=== PATIENT | female | born 1945 | race Caucasian/White ===

== ENCOUNTER → 2018-09-26 10:27 | Outpatient (CLI) | payer MEDICARE, SELFPAY ==
--- NOTE | 2018-09-26 10:30 | BI_ITS ---
MAMMOGRAPHY - BILATERAL SCREENING REASON FOR EXAM: Female, 72 years old. Routine annual screening examination. PERTINENT HISTORY: Grandmother with breast cancer. Remote bilateral breast reduction surgery. TECHNIQUE: Digital bilateral breast nelson (3D mammographic acquisition) in the CC and MLO projections. 2-D mediolateral oblique (MLO) and craniocaudad (CC) views of both breasts were obtained. CAD: Full Field Digital Mammography with Computer Added Detection was performed. COMPARISON: Comparison is made with prior study dated September 07, 2017 and September 06, 2016. FINDINGS: Breast Composition: The breasts are almost entirely fatty. There are no dominant masses or suspicious calcifications. Stable benign-appearing bilateral axillary lymph nodes. Stable 6.6 mm calcified nodule in the retroareolar region of the left breast. No other significant abnormalities are identified. There has been no significant change since the prior study. BI/SCREENING MAMM (CAD), BILAT IMPRESSION: Stable bilateral screening mammogram. Yearly follow-up mammogram recommended. (A) ASSESSMENT CATEGORY: BIRADS Category 2: Benign. A letter regarding these results will be sent to the patient by the facility within 30 days. Approximately 10% of breast cancers are not detected by mammography. A normal mammogram should not delay biopsy of a clinically suspicious abnormality. [id number] Electronically Signed: Wayne Rabago MD at 11:40 EST Tel [phone], Service support ,
--- OUTSIDE RECORDS SUMMARY | 2018-12-01 05:11 | XMS RPT_ITS | Continuity of Care Document ---
:1945 Author Organization [facility] Address [address] [facility] [address] [place] [address] Phone Care Team Providers Name Role Phone Whit LYNDALakisha E Unavailable Dr. Demetri Tanner Unavailable Krista Castillo LPN Unavailable Unavailable Maria Luisa Angel Unavailable Unavailable Preston Vance Unavailable Unavailable Aaliyah Goel Unavailable Unavailable Unavailable Unavailable Problems Name Dates Details Abdominal pain (R10.9, 789.00) Comments: epigastric, colonoscopy December 07 with Ryland normal, he did not do endoscopy all labs normal and hypylori normal added sulcralfate but no better, can do CTHad cholecystectomy Status: Active Abdominal pain, acute, generalized (R10.84, 789.07) Comments: ct scan okay. will compare old kidney cyst will call radiology. still some left upper quad discomfort. belch and flatuence help. ? ulcer. on prilosec clean stool out. some better. will take PPI for 4 w eeks. worry about ovarian. will check US. consider Hpylori if return alot. will get colonscopy Status: Active Abnormal mammogram (R92.8, 793.80) Status: Active Acute pharyngitis (J02.9, 462) Status: Active Allergic Rhinitis (J30.9, 477.9) Comments: hard to sing alot drainage. told use claritin no D Status: Active Annual Medicare Phyiscal WITHOUT abnormal findings (Renamed from Encounter for general adult medical examination without abnormal findings) (Z00.00, V70.9) Status: Active Anxiety (F41.9, 300.00) Status: Active Atrial fibrillation (I48.91, 427.31) Comments: new onset -PAT- post op related. , sees Jessica once a year Stress test 10-03-16 Cath 10-06-162016 Status: Active BMI 34.0-34.9,adult (Z68.34, V85.34) Comments: will refer to Why weight Status: Active BMI 35.0-35.9,adult (Z68.35, V85.35) Status: Active Cough (R05, 786.2) Status: Active Cyst, kidney, acquired (N28.1, 593.2) Comments: recheck Status: Active Encounter for Medicare annual wellness exam (Z00.00, V70.0) Comments: reveiwed with patient recent tests all questions scope 2009, mother after pneumonvax. Status: Active Encounter for screening for malignant neoplasm of colon (Renamed from Special screening for malignant neoplasms, colon) (Z12.11, V76.51) Status: Active Encounter for screening mammogram for breast cancer (Renamed from Encounter for screening mammogram for malignant neoplasm of breast) (Z12.31, V76.12) Status: Active Flank pain (R10.9, 789.09) Status: Active Generalized anxiety disorder (F41.1, 300.02) Comments: doing good Status: Active GERD (gastroesophageal reflux disease) (K21.9, 530.81) Comments: had EGD, had Hpylori treatment. doing better with that treatment. had lost 20 pounds with this and now gain back. talk about this. Status: Active Hair loss (L65.9, 704.00) Status: Active Hypercalcemia (E83.52, 275.42) Comments: stop calcium qyiaye27.3 with nausea Status: Active Hyperglyceridemia (E78.1, 272.1) Comments: would like to get on livalo but insurance not cover was on Zocor 03-05-2010 and provachol 03-15-12 with cramping. Status: Active Hypertension (I10, 401.9) Comments: controlled on toprol Status: Active Hypothyroidism (E03.9, 244.9) Comments: good 10-13 Status: Active Irritable bowel syndrome (K58.9, 564.1) Status: Active Irritable bowel syndrome with constipation (K58.1, 564.1) Status: Active Irritated nevus of face (D22.30, 216.3) Status: Active Mixed Hyperlipidemia (E78.2, 272.2) Comments: reveiwed with patient recent tests ldl good, excellent profile on Livalo, continue unable to take statins was approved Status: Active Need for prophylactic vaccination and inoculation against influenza (Z23, V04.81) Status: Active Need for prophylactic vaccination and inoculation against influenza (Renamed from Need for immunization against influenza) (Z23, V04.81) Status: Active Nonsmoker (Z78.9, V49.89) Status: Active Non-smoker (Z78.9, V49.89) Status: Active Obesity, unspecified (E66.9, 278.00) Comments: need to lose weight Status: Active Osteopenia (M85.80, 733.90) Comments: 12-10 very early osteopenia Status: Active Other 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 of blood chemistry (R79.89, 790.6) Status: Active Other specified disorders of liver (K76.89, 573.8) Comments: pt has been aware of them - has had for years Status: Active Pain in unspecified hip (M25.559, 719.45) Comments: hip OA bad. may need to have replaced. seen knpaulineic. is going to go back because to him. 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 mojica took out and see someone at [facility] and stable Status: Active Tremor (R25.1, 781.0) Status: Active Unspecified Diagnosis Status: Active Unspecified Diagnosis Status: Active Unspecified Diagnosis Status: Active Upper respiratory infection, viral (J06.9, 465.9) Status: Active Urinary frequency (R35.0, 788.41) Comments: will reevaluate in future Status: Active Vaginitis (N76.0, 616.10) Comments: yeast vs other Status: Active WWV V73.21 (Renamed from CO-Value) Comments: mammo 06-21, BD 12-10 scope 2009, mother after pneumonvax. Status: Active Medications Name Dates Details ASPIRIN, 325MG (Oral Tablet) 1 Tablet qd for 0 days Quantity: 30 {Tablet} Refills: 0 Ordered:24-Jun-2013 Shelia Oleary MD Start : 24-Jun-2013 Active CALCIUM 600, 600MG (Oral Tablet) 1 Tablet qd for 0 days Quantity: 30 {Tablet} Refills: 0 Ordered:24-Jun-2013 Shelia Oleary MD Start : 24-Jun-2013 Active Cranberry 125 MG Oral Tablet daily (125 MG) Active Livalo 1 MG Oral Tablet 1 qd (1 MG) Start : 23-Jan-2018 Active Comments:unable to take statin zetia, lipitor Livalo 1 MG Oral Tablet 1 Tablet Tablet qd for 90 days Quantity: 90 {Tablet} Refills: 3 Ordered:23-Jan-2018 Whit HOWELL, Lakisha Riley CNP, Priscilla Start : 23-Jan-2018 Active Livalo 1 MG Oral Tablet 1 Tablet Tablet qd for 90 days Quantity: 90 {Tablet} Refills: 3 Ordered:23-Jan-2018 Whit HOWELL, Lakisha Riley CNP, Priscilla Start : 23-Jan-2018 Active Comments:unable to take statin zetia, lipitor Multivitamin Adults 50+ Oral Tablet Active Toprol XL 50 MG Oral Tablet Extended Release 24 Hour 1 Tablet ER 24HR qd for 0 days Quantity: 90 {Tablet} Refills: 3 Ordered:17-Jun-2018 Lakisha Sherman CNP, CNP, Priscilla Start : 17-Jun-2018 Active Toprol XL 50 MG Oral Tablet Extended Release 24 Hour 1 Tablet ER 24HR qd for 0 days Quantity: 90 {Tablet} Refills: 3 Ordered:17-Jun-2018 Whit HOWELL, Lakisha Riley CNP, Lakisha Cartagena Start : 17-Jun-2018 Active ACTONEL, 150MG (Oral Tablet) 1 Tablet q monthly for 90 days Quantity: 3 {Tablet} Refills: 3 Ordered:15-Oct-2013 Shelia Oleary MD Start : 15-Oct-2013 End : 15-Oct-2013 Inactive ALIGN (Oral Capsule) 1 Capsule daily for 30 days Refills: 0 Ordered:08-Nov-2010 Whit HOWELL, Lakisha Riley CNP, Lakisha Cartagena Start : 08-Nov-2010 End : 08-Dec-2010 Inactive ATIVAN, 0.5MG (Oral Tablet) 1 Tablet qd for 0 days Quantity: 30 {Tablet} Refills: 0 Ordered:18-Mar-2013 Bharti Villegas LPN Start : 15-Mar-2012 End : 18-Mar-2013 Inactive Comments:thirty Atorvastatin Calcium 20 MG Oral Tablet 1 (one) Tablet daily for 0 days Quantity: 90 {Tablet} Refills: 3 Ordered:09-Jan-2018 Elizabet Johnston LPN Start : 18-Dec-2017 End : 09-Jan-2018 Inactive CARDIZEM LA, 120MG (Oral Tablet Extended Release 24 Hour) 1 Tablet ER 24HR qhs for 0 days Quantity: 30 {Tablet_ER_24HR} Refills: 2 Ordered:18-Mar-2013 Bharti Villegas LPN Start : 07-May-2012 End : 18-Mar-2013 Inactive CELEBREX, 200MG (Oral Capsule) 1 (one) Capsule qd/prn for 0 days Quantity: 90 {Capsule} Refills: 3 Ordered:15-Aug-2011 Elizabet Johnston LPN Start : 15-Aug-2011 End : 15-Aug-2011 Inactive CLARITHROMYCIN, 500MG (Oral Tablet) 1 Tablet bid for 14 days Quantity: 28 {Tablet} Refills: 0 Ordered:27-Oct-2010 Whit HOWELL, Lakisha Riley CNP, Lakisha Cartagena Start : 27-Oct-2010 End : 10-Nov-2010 Inactive COLESTID, 5GM (Oral Granules) 1 Granules bid for 0 days Quantity: 1 {Packet(s)} Refills: 3 Ordered:19-Aug-2013 Elizabet Johnston LPN Start : 15-Jul-2013 End : 19-Aug-2013 Inactive CoQ-10 100 MG Oral Capsule Extended Release 1 (one) Capsule ER Capsule ER daily for 0 days Quantity: 30 {Capsule} Refills: 0 Ordered:25-Jul-2017 Krista Castillo LPN Start : 13-Jun-2016 End : 25-Jul-2017 Inactive Fenofibrate 120 MG Oral Tablet 1 (one) Tablet daily with a meal for 0 days Quantity: 30 {Tablet} Refills: 6 Ordered:10-Oct-2016 Shelia Oleary MD Start : 10-Oct-2016 End : 10-Oct-2016 Inactive Comments: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 not 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 her on that, needs Livalo FOSAMAX, 70MG (Oral Tablet) 1 Tablet q week for 0 days Quantity: 4 {Tablet} Refills: 6 Ordered:30-Aug-2013 Shelia Oleary MD Start : 30-Aug-2013 End : 30-Aug-2013 Inactive Comments:headache, makes feel werid all over IRON SUPPLEMENT, 325 (65 Fe)MG (Oral Tablet) 1 Tablet bid for 30 days Refills: 0 Ordered:24-Jun-2013 MOIRA Crowell Start : 18-Mar-2013 End : 24-Jun-2013 Inactive LIDODERM, 5% (External Patch) 1 Patch 12 hours on and hours off for 0 days Quantity: 30 {Patch} Refills: 0 Ordered:18-Mar-2013 Bharti Villegas LPN Start : 26-Oct-2012 End : 18-Mar-2013 Inactive LINZESS, 145 MCG (LINACLOTIDE) CAPSULES, 145 MCGMCG (Oral Capsule) (Free Text) 1 (one) Capsule QOD for 30 days Refills: 0 Ordered:17-May-2016 Lakisha Sherman CNP, CNP, Mary E Start : 11-Dec-2015 End : 10-Jan-2016 Inactive MEDROL (SADI), 4MG (Oral Tablet) 1 Tablet uad for 0 days Refills: 0 Ordered:18-Mar-2013 Bharti Villegas LPN Start : 26-Oct-2012 End : 18-Mar-2013 Inactive METROGEL-VAGINAL, 0.75% (Vaginal Gel) 1 Gel daily for 5 days Quantity: 5 {Gel} Refills: 0 Ordered:23-Aug-2013 Lakisha Sherman CNP, CNP, Mary E Start : 23-Aug-2013 End : 28-Aug-2013 Inactive METRONIDAZOLE, 500MG (Oral Tablet) 1 Tablet bid for 14 days Quantity: 28 {Tablet} Refills: 0 Ordered:27-Oct-2010 Whit HOWELL, Lakisha Riley CNP, Lakisha Cartagena Start : 27-Oct-2010 End : 10-Nov-2010 Inactive OMEPRAZOLE, 20MG (Oral Tablet Delayed Release) [address] daily for 0 days Quantity: 30 {Tablet_DR} Refills: 0 Ordered:25-Oct-2010 Katia Saunedrs LPN Start : 31-Aug-2010 End : 25-Oct-2010 Inactive PRADAXA, 75MG (Oral Capsule) 1 Capsule qd for 0 days Quantity: 30 {Capsule} Refills: 3 Ordered:18-Mar-2013 Bharti Villegas LPN Start : 07-May-2012 End : 18-Mar-2013 Inactive PROBIOTIC (Oral Tablet Delayed Release) 1 (one) Tablet DR daily for 30 days Quantity: 30 {Tablet} Refills: 0 Ordered:25-Nov-2015 Whit HOWELL, Lakisha Riley CNP, Lakisha Cartagena Start : 26-Oct-2015 End : 25-Nov-2015 Inactive SENOKOT, 8.6MG (Oral Tablet) 1 Tablet bid for 30 days Refills: 0 Ordered:24-Jun-2013 MOIRA Crowell Start : 18-Mar-2013 End : 24-Jun-2013 Inactive SUCRALFATE, 1GM (Oral Tablet) 1 (one) Tablet qid 1 hour before meals and at bedtime for 14 days Quantity: 56 {Tablet} Refills: 0 Ordered:23-Nov-2015 Whit HOWELL, Lakisha Riley CNP, Lakisha Cartagena Start : 23-Nov-2015 End : 07-Dec-2015 Inactive ZETIA, 10MG (Oral Tablet) 1 Tablet daily for 0 days Quantity: 30 {Tablet} Refills: 6 Ordered:30-Aug-2013 Shelia Oleary MD Start : 30-Aug-2013 End : 30-Aug-2013 Inactive ZITHROMAX Z-SADI, 250MG (Oral Tablet) 1 Tablet uad for 0 days Refills: 0 Ordered:04-Nov-2008 MOIRA Crowell Start : 04-Nov-2008 End : 28-Apr-2009 Inactive ZOCOR, 40MG (Oral Tablet) 1 Tablet Daily for 0 days Quantity: 60 {Tablet} Refills: 5 Ordered:05-Mar-2010 MOIRA Crowell Start : 05-Mar-2010 Inactive Comments:muscle aches ZOSTAVAX, 12906AIF/0.65ML (Subcutaneous Solution Reconstituted) uad For Solution SQ injection one time dose for 0 days Quantity: 1 {solution} Refills: 0 Ordered:18-Mar-2013 Bharti Villegas LPN Start : 24-Sep-2012 End : 18-Mar-2013 Inactive BONIVA, 150MG (Oral Tablet) 1 (one) Tablet Tablet q monthly for 0 days Quantity: 3 {Tablet} Refills: 3 Ordered:26-Oct-2015 Krista Castillo LPN Start : 15-Oct-2013 End : 26-Oct-2015 Discontinued COENZYME Q10, 200MG (Oral Capsule) 1 Capsule Capsule qd for 0 days Quantity: 30 {Capsule} Refills: 4 Ordered:26-Oct-2015 Krista Castillo LPN Start : 30-Aug-2013 End : 26-Oct-2015 Discontinued Comments:to be taken with livalo HYZAAR, 100-12.5MG (Oral Tablet) 1 Tablet AM for 0 days Quantity: 90 {Tablet} Refills: 3 Ordered:07-May-2012 Larissa Griffiths DO Start : 07-May-2012 End : 07-May-2012 Discontinued Comments:hypotension after hip replac-- resumed med bp going back uphilding while startding CCB for rate control of a fib to watch bp doenst drop again LOVAZA, 1GM (Oral Capsule) 1 (one) Capsule qd for 0 days Quantity: 90 {Capsule} Refills: 3 Ordered:26-Oct-2015 Krista Castillo LPN Start : 07-Jan-2014 End : 26-Oct-2015 Discontinued MOBIC, 7.5MG (Oral Tablet) 1 Tablet qd for 0 days Quantity: 90 {Tablet} Refills: 3 Ordered:07-May-2012 Larissa Griffiths DO Start : 07-May-2012 End : 07-May-2012 Discontinued Comments:needed to start pradaxa MULTIVITAMINS (Oral Capsule) 1 Capsule qd for 0 days Quantity: 30 {Capsule} Refills: 0 Ordered:11-Dec-2015 Krista Castillo LPN Start : 24-Jun-2013 End : 11-Dec-2015 Discontinued OMEPRAZOLE, 20MG (Oral Capsule Delayed Release) [address] daily for 30 days Quantity: 30 {Capsule} Refills: 3 Ordered:11-Dec-2015 Slarb Krista GRIFFIN Start : 26-Oct-2015 End : 11-Dec-2015 Discontinued PRAVACHOL, 40MG (Oral Tablet) 1/2-1 Tablet daily for 0 days Quantity: 90 {Tablet} Refills: 3 Ordered:15-Mar-2012 Larissa Griffiths DO Start : 15-Mar-2012 End : 15-Mar-2012 Discontinued Comments:muscle pain SYNTHROID, 25MCG (Oral Tablet) Tablet QD for 0 days Quantity: 60 {Tablet} Refills: 6 Ordered:29-Sep-2006 MOIRA Crowell Start : 29-Sep-2006 End : 10-Aug-2007 Discontinued TRICOR, 54MG (Oral Tablet) 1 Tablet QD for 0 days Quantity: 60 {Tablet} Refills: 6 Ordered:10-Aug-2007 Long GABYElizabet Start : 10-Aug-2007 End : 25-Sep-2013 Discontinued Comments:This order discontinued per [facility]. VICODIN, 5-500MG (Oral Tablet) 1-2 Tablet three times daily as needed for 0 days Quantity: 60 {Tablet} Refills: 2 Ordered:22-Dec-2011 MOIRA Crowell Start : 22-Dec-2011 End : 24-Jun-2013 Discontinued Comments:Medication taken as needed. This order discontinued per [facility]. Zithromax Z-Sadi 250 MG Oral Tablet 1 Tablet tad for 0 days Quantity: 1 {Package} Refills: 0 Ordered:06-Aug-2018 Maria Luisa Angel Start : 13-Apr-2018 End : 06-Aug-2018 Discontinued Allergies and Adverse Reactions Name Dates Details No Known Drug Allergies (Allergy) Onset: 13-Apr-2018 Status: Active Penicillins (Allergy) Status: Active Comments: edema Past Medical History Name Dates Details Abdominal bloating (R14.0, 787.3) Comments: try gluten free foods Status: Inactive as of 25-Jul-2017 Abdominal pain, acute, epigastric (R10.13, 789.06) Status: Inactive as of 25-Jul-2017 Abdominal pain, acute, left upper quadrant (R10.12, 789.02) Comments: IBS and anxietyreviewed pelvic trans ab US, Reviewed CT of 08/31 reviewed Rachel lettermuch anxiety and worry about pancreas cancer lots of reassurance, check amylase and lipase and enzymes Status: Inactive as of 24-Jun-2013 BMI 33.0-33.9,adult (Z68.33, V85.33) Status: Inactive as of 25-Jul-2017 Chest pain (R07.9, 786.59) 05-Mar-2010 Status: Inactive as of 24-Jun-2013 Congestion of throat (R68.89, 784.99) Status: Inactive as of 25-Jul-2017 Dysfunction of left eustachian tube (H69.82, 381.81) Comments: use nasal spray as we discussed Status: Inactive as of 25-Jul-2017 Flank pain (R10.9, 789.09) Status: Inactive as of 25-Jul-2017 GYNECOLOGICAL EXAMINATION, ROUTINE (V72.31) Status: Inactive as of 24-Jun-2013 Hypokalemia (E87.6, 276.8) 03-May-2012 Status: Resolved as of 03-May-2012 Hypotension, unspecified (I95.9, 458.9) Status: Resolved as of 26-Mar-2012 INFECTION, BACTERIAL D/T HELICOBACTER PYLORI (041.86) Comments: abd pain improving Status: Inactive as of 24-Jun-2013 Itching with irritation (L29.9, 698.9) Comments: left side of face Status: Inactive as of 25-Jul-2017 Leg weakness (R29.898, 729.89) Status: Inactive as of 25-Jul-2017 Liver cyst Status: Inactive as of 24-Jun-2013 Low back pain (M54.5, 724.2) Status: Inactive as of 25-Jul-2017 Nausea (R11.0, 787.02) Comments: early satiety Status: Inactive as of 24-Jun-2013 Neoplasm of uncertain behavior of skin (D48.5, 238.2) Status: Inactive as of 24-Jun-2013 Other specified viral infection, in conditions classified elsewhere and of unspecified site (B97.89, 079.89) Comments: will get atb if start bacterial signs and symptoms talk about Status: Inactive as of 18-Mar-2009 Pain of upper extremity, unspecified laterality (M79.603, 729.5) Comments: left arm think from neck. will do medrol sadi. ice assure not heart to massotherapy Status: Inactive as of 24-Jun-2013 Sinus congestion (Renamed from Congestion of paranasal sinus) (R09.81, 478.19) Status: Inactive as of 25-Jul-2017 suture removal Comments: 5 stitches were removed. No reness or swelling. Well approximated. Pt tolerated well. Status: Inactive as of 24-Jun-2013 Tinnitus Status: Inactive as of 24-Jun-2013 Unspecified Diagnosis Status: Inactive as of 24-Jun-2013 Procedures Procedure Dates Details breast reduction 2007 Completed Cataract Extraction-Left Completed Comments: 2016 Dr Dias Cholecystectomy Completed Colonoscopy Completed Comments: November 2015 Right ankle fracture Completed Comments: has plate and screw Right hip replacement Completed Comments: March 2013, Left hip done 2011 Squamous Completed Comments: Cell Thyroidectomy; Subtotal Completed Comments: left side Date Value Details 30-Sep-2017 Cardiology Visit Report Result: Comments: See Note; NOTES: [facility] [address] [place] [address]. [address] [place] [address] OFFICE VISIT Date of Service: 09/28/17 MR#: [id number] Acct: [id number] Name: KAMRYN NEUMANN ep #: [id number] : 1945 Provider: DIETER Mahan Age/Sex: 71/F Location: [facility] Status: Signed HPI 1 Y FU: Details: KAMRYN NEUMANN, is a 71 F who presents to the office today for a cardiovascular outpatient follow-up. Patient has history of palpitations and paroxysmal atrial fibrillation. Patient underwent heart catheterization in September 2016 that showed no high-grade stenosis and a preserved ejection fraction. Pt. denies chest, arm, jaw, or neck discomfort. Her exercise tolerance is stable, though not as much as she would like. Pt. denies symptoms of CHF, palpitations, lightheadedness, diz ziness, near syncope, or syncopal episodes. Pt. denies edema or claudication issues. Pt. denies orthopnea, PND, fever, chills, blood in urine, blood in stool, myalgia, or unexplainable fatigue. Echocar diogram from April 2012 showed an ejection fraction of 65%. 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lactis [Probiotic] 1 ea PO DAILY 10/05/16 [History Confirmed 09/28/17] Metoprolol(XL)Succ [Toprol Xl (Beta Block er)] 50 mg PO DAILY 10/05/16 [History Confirmed 09/26/17] Multivit-Min/FA/Lycopen/Lutein [Centrum Silver Tablet] 1 ea PO DAILY 10/05/16 [History Confirmed 09/26/17] Pitavastatin Calcium [Livalo] 1 mg PO DAILY 10/05/16 [History Confirmed 09/26/17] cranberry extract 500 mg tablet 500 mg PO QDAY tab 09/28/17 [History Confirmed 09/28/17] Ejection fraction %: 65 to 70 PFSH Medical History Hyperlipidemi a (Chronic) Palpitations (Chronic) Paroxysmal atrial fibrillation (Chronic) Surgical History H/O partial thyroidectomy (Chronic) H/O bilateral hip replacements (Resolved) History of left heart cathet erization (Resolved) Family History Father aortic aneurysm Sister Seizures Brother coronary stent Mother Myocardial infarction Social History Smoking Status: Former smoker alcohol intake: current alcohol intake frequency: a few times a month Alcohol type: wine substance use type: does not use caffeine: Yes Type: carbonated beverages what type of physical activity do you parti cipate in: walking frequency: 1-2 times per week duration: 15-30 minutes/day seatbelt use: always do you feel safe at home: Yes ROS Const Const: Negative for weakness, body ache, fever(s), chil ls or fatigue ENT ENT: Negative for dizziness Cardio Chest Pain: No Palpitations: Positive for No Edema: None Muscle aches with walking: None Resp Respiratory: Negative for SOB with activity, SOB at res t, SOB orthopnea\SOB lying down or paroxysmal nocturnal dyspnea GI GI: Negative nausea, black,tarry stools, bright, red blood in stools or vomiting blood/hematemesis : Negative for hematuria or urmila quent nighttime urination/ nocturia Musc Musc: Negative for muscle aches/ myalgia Neuro Neuro: Negative for lightheadedness, Negative for near syncope, Negative for syncope, Negative for orthostatic sym ptoms, Negative for weakness, Negative for dizziness Endo Endo: Negative for fatigue Cardiology Exam Const Appearance: cooperative, healthy appearing, comfortable and no acute distress Orientation: al ert, awake and oriented x3 Head Head: normal to inspection Mouth: oral mucosae normal Neck Neck: no JVD and normal visual inspection Carotids: normal carotid upstroke Chest Chest inspection: normal insp ection of the chest and normal respiratory effort Auscultation: Bilateral: Clear to Auscultation Cardio Rate: regular rate Rhythm: regular rhythm Heart sounds: S1 normal and S2 normal; negative rub or g allop GI GI: normal to inspection Neuro General: alert, awake, oriented x3 and CN's II-XI intact bilaterally Skin Skin: no rashes or lesions noted Extremities Pulses: Normal: Right Posterior Tibial Puls e, Left Posterior Tibial Pulse, Right Radial Pulse, Left Radial Pulse Lower Extremity Edema: None: Bilateral Psych Psychological: normal affect Assessment AND Plan 1. Paroxysmal atrial fibrillation I4 8.0 Plan - REBA Nguyen There does not appear to be any reoccurrence of this. We will continue beta-chanda and full strength aspirin. Patient instructed to contact her office if she had any concer erin symptoms. 2. Palpitations R00.2 Plan - REBA Nguyen Patient denies any episodes of palpitation. We will continue to monitor this. 3. Mixed hyperlipidemia E78.2 Plan - REBA Nguyen This is monitored by primary care physician. Patient states that her most recent lipid panel has been "good. Patient will continue current cholesterol lowering medication. Plan Detail Addit ional Comments - Michael Mahan NP-C Discussed the above patient with Dr. Black in Dr. Lopez's absence, he agrees with the plan of care. Thank you for allowing us to participate in the patients plan of care, if you have any questions please do not hesitate to call. This note was generated using a voice recognition system and there may be incorrect words, spelling or punctuation that were not note d when reviewing the office note prior to saving. 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) Coding Level of Care Code Off vis,est,level 3 Diagnoses Paroxysmal atrial fibrillation I48.0 Palpitations R00.2 Mixed hyperlip idemia E78.2 Hyperlipidemia type: mixed hyperlipidemia 09/28/17 1242 <Electronically signed by Michael DIEGOC> Date Michael DIEGOC 09/30/17 1708<Electronically signed by Gerald Bell MD> Cosigner Signature: Date (if applicable) Gerald Bell MD CC: Lakisha Sherman NP 13-Sep-2017 Dexa Bone Density Study (HP) Result: Comments: See Note; NOTES: [facility] Imaging Services [address] [place] [address] Dexa Bone Density Study (HP) MR#: [id number] Acct: [id number] Name: KAMRYN NEUMANN Rep #: [id number] : 1945 F 71 From: Wayne Rabago MD PCP: Lakisha Sherman NP Status: REG CLI Study: Dexa Bone Density Study (HP) Date of Exam: 09/13/17 Exam# [id number] Ordering Dr: Lakisha Sherman STUDY : DUAL ENERGY X-RAY ABSORPTIOMETRY / DXA REASON FOR EXAM: Female, 71 years old. The patient is postmenopausal. Loss of height. TECHNIQUE: Bone Mineral Density (BMD) measurements of lumbar spine and le ft forearm were obtained. The patient is status post bilateral hip replacement. COMPARISON: Comparison is made with prior study dated September 09, 2010. FINDINGS: Lumbar Spine (L1-L4): g/cm2 (0.921) / T-score (-2.1) / Z-score (-0.4) Findings are suggestive of osteopenia with a moderate fracture risk. Left Forearm: g/cm2 (0.836) / T-score (-0.5) / Z-score (1.5) The T-Scores on the most recent prior examination were: Lumbar Spine (L1-L4): There has been worsening of bone density since the previous examination. ORDER #: HPBD/Dexa Bone Density Study (HP) IMPRESSION: The patient is considered osteopenic as outlined below according to World Romie Organization (WHO) criteria with a moderate fracture risk. There has been worsening of bone density since the previous examination. Reference Information: The T-score is the number of standard deviations above or below the standard which is normal for young adults at their peak bone mineral density. The World Health Organization (WHO) interprets the T-scores as follows: Above -1 Normal bone density Between -1 and -2.5 Osteopenia Equal to / or below -2.5 Osteoporosis As a practical clinical guideline, osteopenia may be graded as follows: Mild -1 through -1.5 Moderate -1.6 through -2.0 Severe -2.1 through -2.4 The Z-score is th e number of standard deviations above or below age-matched controls. A Z-score of less than -1.5 would be considered abnormal. References: 1. NIH Osteoporosis and Related Bone Diseases http://www.osteo .org 2. International Society for Clinical Densitometry http://www.iscd.org 3. National Osteoporosis Foundation http://www.nof.org Electronically Signed: Wayne Rabago MD at 9:21 EST T [phone], Service support , CC: Lakisha Sherman NP Contact Acid Plant Operator Helper: Signed 07-Sep-2017 SCREENING MAMM (CAD), BILAT Result: Comments: See Note; NOTES: [facility] Imaging Services [address] [place] [address] SCREENING MAMM (CAD), BILAT MR#: [id number] Acct: [id number] Name: KAMRYN NEUMANN Rep #: [id number] : 1945 F 71 From: Jimenez Harris MD PCP: Lakisha Sherman NP Status: REG CLI Study: SCREENING MAMM (CAD), BILAT Date of Exam: 09/07/17 Exam# [id number] Ordering Dr: Lakisha Sherman MAMMOGRAP HY - BILATERAL SCREENING REASON FOR EXAM: Female, 71 years old. Routine annual screening examination. PERTINENT HISTORY: The patient indicates paternal grandmother diagnosed with breast cancer at age 70. Status post bilateral reduction in 2006. Bilateral moles marked mammographically. TECHNIQUE: Digital bilateral breast tomosynthesis (3-D mammographic acquisition) in the CC and MLO projections. Syn thesized 2-D images (C-View reconstruction from tomosynthesis acquisition) providing bilateral breast CC and MLO views. CAD: Full Field Digital Mammography with Computer Added Detection was performed. COMPARISON: September 06, 2016. FINDINGS: Breast Density: B - Scattered fibroglandular densities. There are no dominant masses or suspicious calcifications. No othe r significant abnormalities are identified. HPBI/SCREENING MAMM (CAD), BILAT IMPRESSION: Stable bilateral screening mammogram. Yearly follow-up m ammogram recommended. (A) ASSESSMENT CATEGORY: BIRADS Category 2: Benign. A letter regarding these results will be sent to the patient by the facility within 30 day s. Approximately 10% of breast cancers are not detected by mammography. A normal mammogram should not delay biopsy of a clinically suspicious abnormality. [id number] Electronically Signed: Jimenez Harris MD at 8:01 EST , Service support , CC: Lakisha Sherman NP Contact Acid Plant Operator Helper: Signed 06-Oct-2016 Left Heart Cath/COR/LV Percut Result: Comments: See Note; NOTES: [facility] Imaging Services [address] [facility] [place] [address] Cardiac Catheterization Report MR#: [id number] Acct: [id number] Name: KAMRYN NEUMANN Rep #: [id number] : 1945 70 From: Kp Lopez MD PCP: Lakisha Sherman Status: DEP CLI DATE OF SERVICE: 10/06/2016 INTRODUCTION: The patient is a lady with a history of an abnormal stress test with ante rior ischemia. The present cardiac catheterization is being undertaken to assess anatomy and to guide therapy. DESCRIPTION OF PROCEDURE: After informed consent was obtained, 1% Xylocaine was used as lo jennifer anesthetic agent to anesthetize the right radial area. Intra-arterial cocktail was administered. A 5-Maldivian JL3.5 catheter was then advanced to the ascending aorta, flushed, and pressures recorded. Left coronary ostium was identified and engaged. Left coronary angiography performed in multiple views. Following this, the catheter was removed and a 5-Maldivian JR5 catheter was inserted. The right coron hakan ostium was identified and engaged. Right coronary angiography performed in multiple views. Following this, the catheter was removed and a pigtail catheter was inserted. A left ventriculogram was per formed with 36 mL of contrast at 12 mL per second. Following this, all catheters were removed. The sheath was removed. A TR band was applied. HEMODYNAMICS: The baseline heart rate was noted to be 85 be ats per minute in sinus rhythm. Aortic pressures were 125/74. Left ventricular pressure was 130/7. POST ANGIOGRAM: Left ventricular pressure was 142/11. Aortic pressure is 139/66. CORONARY ARTERIOGRAP HY: LEFT MAIN: The left main coronary artery was noted to be angiographically normal. It bifurcated into left anterior descending artery and left circumflex artery. No significant stenosis was noted in this vessel. LEFT CIRCUMFLEX ARTERY: The left circumflex artery was a nondominant vessel. There was a small first obtuse marginal branch, an atrial circumflex branch and a second obtuse marginal branch . These vessels were tiny. There was an eccentric plaque of approximately 20% stenosis noted. A third large bifurcating obtuse marginal branch was noted with no evidence of stenosis. The AV groove branc h did not demonstrate any significant stenosis. LEFT ANTERIOR DESCENDING ARTERY: The left anterior descending artery was a medium-sized vessel. It gave off a diagonal vessel, which bifurcated. No signi ficant stenosis was noted in this vessel. A large septal showroom salesperson was also noted. The left anterior descending artery was noted and it coursed around the apex of the left ventricle. No significant essie nosis was noted in this vessel. RIGHT CORONARY ARTERY: The right coronary artery was a dominant vessel. It gave off a sinoatrial branch, a conus branch, and an acute marginal branch. The vessel continu ed and distally gave off a posterior descending artery and a posterolateral vessel. No significant stenosis was noted in this vessel. LEFT VENTRICULOGRAM: The left ventriculogram demonstrated overall p reserved left ventricular systolic function. No wall motion abnormalities were noted. CONCLUSION: 1. Normal left main coronary artery. 2. Left anterior descending artery with no high-grade stenosis. 3. Left circumflex artery, which is nondominant with no significant stenosis. 4. Right coronary artery, which is dominant with no significant stenosis. 5. Preserved ejection fraction. Based on the above angiographic findings, I would recommend continuation of medical therapy. Thank you for allowing me to participate in her care. Kp Lopez MD T: [facility] JOB: [id number] 10/07/16 1040 <Electron ically signed by Kp Lopez MD> Date Kp Lopez MD Cosigner Signature (If Indicated): Date CC: Lakisha Sherman; Kp Lopez MD Date Dictated: 10/06/161702 Date Transcribed: 10/06/161702 Contact Acid Plant Operator Helper: Signed 04-Oct-2016 Chest PA and Lateral Result: Comments: See Note; NOTES: [facility] Imaging Services [address] [place] [address] Verdana 4d Chest PA and Lateral MR#: [id number] Acct: [id number] Name: KAMRYN NEUMANN Rep # : [id number] : 1945 F 70 From: Wayne Rabago MD PCP: Lakisha Sherman Status: PRE CLI Study: Chest PA and Lateral Date of Exam: 10/04/16 Exam# [id number] Ordering Dr: Kp Lopez MD STUDY: X- RAY CHEST REASON FOR EXAM: Female, 70 years old. Abnormal stress test. TECHNIQUE: PA and lateral views of the chest. COMPARISON: None. FINDINGS: Hyperinflation. The lungs are clear. There is no demonstrated pleural abnormality. Normal size heart. Normal mediastinum and jessica. Normal visualized pulmonary arteries. Normal visualized aortic arch and descending tho racic aorta. There is demineralization of the osseous structures. Normal visualized ribs, clavicles, and shoulders. Cholecystectomy. RAD/Chest PA and Lateral IMPRESSION: Hyperinflation. The lungs are clear. Electronically Signed: Wayne Rabago MD at 14:21 EST Tel [phone], Service support [phone], CC: Lakisha Sherman; Kp Lopez MD Contact Acid Plant Operator Helper: Signed 03-Oct-2016 Nuclear Stress Test - Chemical Result: Comments: See Note; NOTES: [facility] Imaging Services [address] [place] [address] Godfrey 4d Nuclear Stress Test - Chemical MR#: [id number] Acct: [id number] Name: KINGS NEUMANN CIA Rep #: [id number] : 1945 70 From: Kp Lopez MD Primary Care: Lakisha Sherman Status: REG CLI Ordering Dr: Kp Lopez MD Sex: F C DATE OF SERVICE: 10/03/2016 PHARMACOLOGIC MYOCARDIAL PE RFUSION STRESS TEST A 70-year-old lady with a history of chest pain and atrial fibrillation. Resting EKG demonstrates sinus rhythm with a rate of 75 beats per minute. Normal intervals are noted. Resti ng blood pressure was 132/84. 0.4 mg of regadenoson was infused per usual protocol followed by rapid intravenous saline flush injection. Continuous EKG monitoring was performed. The maximum heart rate attained was 100 beats per minute ____ in sinus rhythm. The resting blood pressure was 132/84 with a final blood pressure of 120/80. No clinical angina was noted. At rest and during peak infusion, ther e were no ST or T-wave changes noted to suggest abnormal flow reserve. MYOCARDIAL PERFUSION PROTOCOL: 13.6 mCi of sestamibi was injected at rest. 0.4 mg of regadenoson was infused per usual protocol. A t peak infusion, 42.3 mCi of sestamibi was injected. Stress images were obtained. Stress and rest images were reconstructed and compared in the short axis, vertical long and horizontal long axes. Gated images were also obtained. PERFUSION SPECT ANALYSIS: Review of the images demonstrated normal uptake of tracer noted in all areas of myocardium except for a small portion of the mid anterior wall. Ther e is mildly reduced perfusion noted on the stress images with mild improvement on the resting images. The septum, anterior wall, and lateral wall appear to be well perfused. The above is suggestive of m ild amount of mid anterior ischemia in a small zone. The rest of the escobedo appear to be well perfused. GATED SPECT ANALYSIS: The gated ejection fraction is noted to be 76%. CONCLUSION: 1. Normal pharm acologic myocardial perfusion stress test. 2. Preserved ejection fraction. Kp Lopez MD T: [facility] JOB: [id number] 10/07/16 1039 <Electronically signed by Kp Lopez MD> Date ___ Kp Lopez MD CC: Lakisha Sherman; Kp Lopez MD Date Dictated: 10/03/161633 Date Transcribed: 10/03/161633 Contact Acid Plant Operator Helper: Signed 06-Sep-2016 Bilat Scrn Digital AND CAD Result: Comments: See Note; NOTES: [facility] Imaging Services [address] [place] [address] Verdana 4d Bilat Scrn Digital AND CAD MR#: [id number] Acct: [id number] Name: KAMRYN NEUMANN Rep #: [id number] : 1945 F 70 From: Wayne Rabago MD PCP: Lakisha Sherman Status: PRE CLI Study: Bilat Scrn Digital AND CAD Date of Exam: 09/06/16 Exam# [id number] Ordering Dr: Lakisha Sherman AMMOGRAPHY - BILATERAL SCREENING REASON FOR EXAM: Female, 70 years old. Routine annual screening examination. PERTINENT HISTORY: Grandmother with breast cancer. History of prior bilateral breast reduc tion. TECHNIQUE: Digital bilateral breast nelson (3D mammographic acquisition) in the CC and MLO projections. 2-D mediolateral oblique (MLO) and craniocaudad (CC) views of both breasts were obtained. CAD : Full Field Digital Mammography with Computer Added Detection was performed. COMPARISON: Comparison is made with prior examination dated July 17, 2015 and July 14, 2014. FINDINGS: Breast Composition: The breasts are almost entirely fatty. There are no dominant masses or suspicious calcifications. Stable retroareolar calcifications bilaterally. These are be nign appearing. These are unchanged. No other significant abnormalities are identified. There has been no significant change since the prior study. 040 HPBI/Bilat Scrn Digital AND CAD IMPRESSION: Stable bilateral screening mammogram. Yearly follow-up mammogram recommended. (A) ASSESSMENT CATEGORY: BIRADS Catego ry 2: Benign. A letter regarding these results will be sent to the patient by the facility within 30 days. Approximately 10% of breast cancers are not detected by mammography. A normal mammogram should not delay biopsy of a clinically suspicious abnormality. [id number] Electronically Signed: Wayne Rabago MD at 7:53 EST Tel [phone], Service support [phone], CC: Lakisha Sherman Contact Acid Plant Operator Helper: Signed 18-Dec-2015 Abdomen/Pelvis without Cont Result: Comments: See Note; NOTES: [facility] Imaging Services [address] [place] [address] Verdana 4d Abdomen/Pelvis without Cont MR#: [id number] Acct: [id number] Name: KAMRYN NEUMANN Rep #: [id number] : 1945 F 70 From: Clifford Khna MD PCP: Lakisha Sherman Status: REG CLI Study: Abdomen/Pelvis without Cont Date of Exam: 12/18/15 Exam# [id number] Ordering Dr: Lakisha Sherman STUDY: CT ABDOMEN AND PELVIS WITHOUT CONTRAST REASON FOR EXAM: Female, 70 years old. Abdominal pain and left flank pain x3 months. History of atrial fibrillation, hypertension and 2 hip replacements. RADIATION DOSAGE (If Supplied By Facility): CTDIvol = ( 19.92 ) mGy, DLP = ( 1029.46 ) mGycm TECHNIQUE: Transaxial images were obtained from the dome of the diaphragm to the sym physis pubis with oral contrast, and without intravenous contrast. Sagittal and coronal images were reconstructed. Study of the pelvis was limited due to artifact from the patient's bilateral hip art hroplasties. Individualized dose optimization techniques were used for this CT. COMPARISON: CT abdomen and pelvis 08/31/10, report only. FINDINGS: The visuali zed lung bases are unremarkable. The visualized portions of the heart are within normal limits. Redemonstration of multiple low-attenuation hepatic cysts, the largest in the right hepatic lobe which is bilobed, measuring 5.2 x 3.3 cm. There are surgical clips in the gallbladder fossa consistent with a prior cholecystectomy. Normal spleen. Normal pancreas. Normal bilateral adrenal glands. Nor mal right kidney. Multiple small left peripelvic cysts. Normal visualized stomach. Normal small intestine. Normal colon. The appendix is visualized and appears normal. Mild atherosclerotic vascular disease. Normal inferior vena cava. Normal retroperitoneum. Normal urinary bladder. Normal abdominal wall. Normal osseous structures. Status post bilateral total hip arthroplasties. IMPRESSION: No CT evidence of an acute intra-abdominal or pelvic process. Stable examination. Redemonstrated multiple intrahepatic cysts. Multiple small left peripelvic c yst. Bilateral total hip arthroplasties. Electronically Signed: Clifford Khan MD at 20:40 EDT , Service support [phone], CC: Laksiha Sherman Contact Acid Plant Operator Helper: Signed 17-Jul-2015 Bilat Scrn Digital AND CAD Result: Comments: See Note; NOTES: [facility] Imaging Services [address] [place] [address] Verdana 4d Bilat Scrn Digital AND CAD MR#: [id number] Acct: [id number] Name: KAMRYN NEUMANN Rep #: [id number] : 1945 F 69 From: Wayne Rabago MD PCP: Shelia Oleary MD Status: REG CLI Study: Bilat Scrn Digital AND CAD Date of Exam: 07/17/15 Exam# [id number] Johan garber Dr: Shelia Oleary MD MAMMOGRAPHY - BILATERAL SCREENING REASON FOR EXAM: Female, 69 years old. Routine annual screening examination. PERTINENT HISTORY: Grandmother with breast cancer. Prior bi lateral breast reduction. TECHNIQUE: Digital examination. Mediolateral oblique (MLO) and craniocaudad (CC) views of both breasts were obtained. CAD: CAD was performed on this study. COMPARISON: C omparison is made with prior study dated June 21, 2013 and June 18, 2012. FINDINGS: Breast Composition: The breasts are almost entirely fatty. There are n o dominant masses or suspicious calcifications. Stable nonsuspicious calcifications in the retroareolar region of the breasts. No other significant abnormalities are identified. There has been no si gnificant change since the prior study. IMPRESSION: Stable bilateral screening mammogram. Yearly follow-up recommended. (A) ASSESSMENT CATEGORY: BIRADS Category 2: Benign. A letter regarding these results will be sent to the patient by the facility within 30 days. Approximately 10% of breast cancers are not detected by mammography. A normal mammogram should not delay biopsy of a clinically suspicious abnormality. Electronically Signed: Wayne Rabago MD at 14:38 EST Tel [phone], Service supp ort [phone], 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: Signed 14-Jul-2014 Bil Scrn Digital & CAD Result: Comments: See Note; NOTES: [facility] Imaging Services [address] [place] [address] Breast Imaging Report MR#: [id number] Acct: [id number] Name: KAMRYN NEUMANN Rep #: [id number] : 1945 F 68 From: Wayne Rabago MD PCP: Shelia Oleary MD Status: REG CLI Exam# [id number] Ordering Dr: Shelia Oleary MD MAMMOGRAPHY - BILATERAL SCREENING REASON FOR EXAM: Female, 68 years old. Routine annual screening examination. PERTINENT HISTORY: Grandmother with breast cancer. Prior bilateral breast reduction. TECHNIQUE: Digital examination. Mediolateral obliqu e (MLO) and craniocaudad (CC) views of both breasts were obtained. CAD: CAD was performed on this study. COMPARISON: Comparison is made with prior study dated June 21, 2013 and June 18, 2012. FINDINGS: Breast Composition: The breasts are almost entirely fatty. There are no dominant masses or suspicious calcifications. Once again, macrocalcifications are seen in the retroareolar regions of both breasts. These are unchanged. No other significant abnormalities are identified. There has been no significant change since the prior study. IMPRESSION: Stable bilateral screening mammogram. Yearly follow-up recommended. (A) ASSESSMENT CATEGORY: BIRADS Category 2: Benign fi nding(s). A letter regarding these results will be sent to the patient by the facility within 30 days. Approximately 10% of breast cancers are not detected by mammography. A normal mammogram should not delay biopsy of a clinically suspicious abnormality. Electronically Signed: Wayne Rabago MD at 15:42 EST Tel [phone], Service support [phone], 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: Signed 03-Jul-2013 Dexa Bone Density Study (HP) Result: Comments: See Note; NOTES: [facility] Imaging Services [address] [place] [address] Bone Density Report MR#: [id number] Acct: [id number] Name: KAMRYN NEUMANN Rep #: [id number] : 1945 F 67 From: Wayne Rabago MD PCP: Status: REG CLI Study: Dexa Bone Density Study (HP) Date of Exam: 07/03/13 Exam# [id number] Ordering Dr: Shelia Oleary MD STUDY: DUAL ENERGY X-RAY ABSORPTIOMETRY / DXA REASON FOR EXAM: Female, 67 years old. Osteopenia. TECHNIQUE: Bone Mineral Density (BMD) measurements of lumbar spine and right forearm were obtained. The patient is status post bilateral hip replacement. COMPARISON: Comparison is made with prior study dated September 09, 2010. FINDINGS: Lumbar Spine (L1-L4): g/cm2 (0.88 8) / T-score (-2.3) / Z-score (-0.7) Findings are suggestive of osteopenia with a moderate fracture risk. Right Forearm: g/cm2 (0.842) / T-score (-0.5) / Z- score (1.1) The T-Scores on the most rece nt prior examination were: Lumbar Spine (L1-L4): There has been worsening of bone density since the previous examination. IMPRESSION: The patient is considere d osteopenic at the level of the lumbar spine as outlined below according to World Romie Organization (WHO) criteria with a moderate fracture risk. There has been worsening of bone density since the previous examination. Reference Information: The T-score is the number of standard deviations above or below the standard which is normal for young adults at th eir peak bone mineral density. The World Health Organization (WHO) interprets the T-scores as follows: Above -1 Normal bone density Between -1 and -2.5 Osteopenia Equal to / or below -2.5 Osteopor osis As a practical clinical guideline, osteopenia may be graded as follows: Mild -1 through -1.5 Moderate -1.6 through -2.0 Severe -2.1 through -2.4 The Z-score is the number of standard deviati ons above or below age-matched controls. A Z-score of less than -1.5 would be considered abnormal. References: 1. NIH Osteoporosis and Related Bone Diseases http://www.osteo.org 2. International So ciety for Clinical Densitometry http://www.iscd.org 3. National Osteoporosis Foundation http://www.nof.org Signed: Wayne Rabago M.D. July 03, 2013 at 1:44:42 PM EDT [phone] Electro nically Signed GP/GP If you are the referring physician and would like to consult with the radiologist who provided this interpretation, please contact Wayne Rabago M.D. at [phone]. If this radiologist is unavailable, you will be directed to another radiologist to assist. If you are a patient with a question regarding this report, please contact your referring physician directly. Professional Interpretation Provided By: [employer], Phone , These documents contain legally protected and confidential health information intended only for the use of the individual or entity named above. If you are not the intended recipient, you are hereby notified that any disclosure, copying, distribution, or other use of these documents is strictly prohib ited. If you have received this information in error, please notify the sender immediately and arrange for the return or destruction of these documents. 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: Signed 21-Jun-2013 Bilat Scrn Digital & CAD Result: Comments: See Note; NOTES: [facility] Imaging Services [address] [place] [address] Breast Imaging Report MR#: [id number] Acct: [id number] Name: KAMRYN NEUMANN Rep #: [id number] : 1945 F 67 From: Wayne Rabago MD PCP: Status: REG CLI Exam# [id number] Ordering Dr: Shelia Oleary MD MAMMOGRAPHY - BILATERAL SCREENING REASON FOR EXAM: Female, 67 years old. Routine annual screening examination. PERTINENT HISTORY: Grandmother with breast cancer. TECHNIQUE: Digital examination. Mediolateral oblique (MLO) and craniocaudad (CC) views of both breast s were obtained. CAD: CAD was performed on this study. COMPARISON: Comparison is made with prior study dated June 18, 2012 and June 15, 2011, FINDINGS: Th e breast composition is almost entirely fat. Glandular tissue is less than 25%. There are no dominant masses or suspicious calcifications. No other significant abnormalities are identified. There h as been no significant change since the prior study. IMPRESSION: Stable bilateral screening mammogram. Yearly follow-up recommended. (A) ASSESSMENT CATEGORY: BIRADS Category 2: Benign finding(s). A letter regarding these results will be sent to the patient by the facility within 30 days. Approximately 10% of breast can cers are not detected by mammography. A normal mammogram should not delay biopsy of a clinically suspicious abnormality. Signed: Wayne Rabago M.D. June 21, 2013 at 3:16:59 PM EDT Electronically Signed GP/GP If you are the referring physician and would like to consult with the radiologist who provided this interpretation, please contact Wayne Rabago M.D. at . If this radiologist is unavailable, you will be directed to another radiologist to assist. If you are a patient with a question regarding this report, please contact your referring phys ician directly. Professional Interpretation Provided By: [employer], Phone , These documents contain legally protected and confidential health information intended o nly for the use of the individual or entity named above. If you are not the intended recipient, you are hereby notified that any disclosure, copying, distribution, or other use of these documents is strictly prohibited. If you have received this information in error, please notify the sender immediately and arrange for the return or destruction of these documents. 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: Signed Family History Unknown Family Member Name Dates Details Family Members In General Comments: Cancer, Diabetes, Emotional problems, HBP, high cholesterol, seizures, thyroid, ulcer disease Status: Active Social History Name Dates Details Alcohol Use Comments: Occasional alcohol use Status: Active Breast reduction Comments: 2006 Status: Active Caffeine Use Comments: 1-2 QD Status: Active Current Work/Study Status Comments: Retired Status: Active Exercise History Comments: Light Status: Active Living Situation Comments: Lives alone Status: Active No Drug Use Status: Active Non Smoker/No Tobacco Use Status: Active Tobacco use: Former smoker. Status: Active Smoking Status Name Dates Details Former smoker Vital Signs Date Test Result Details :06 Temperature 97.7 f Comments: Method: Temporal Pulse 74 /min Comments: Pattern: Regular Respiration Rate 16 /min Comments: Pattern: Unlabored O2 SAT 99 % Comments: Room air BP Systolic 130 mm[Hg] Comments: Patient Position: Sitting; Cuff Location: Left Arm; Cuff Size: Standard BP Diastolic 80 mm[Hg] Comments: Patient Position: Sitting; Cuff Location: Left Arm; Cuff Size: Standard Weight 216 lb Height 65.25 in Body Mass Index Calculated 35.67 kg/m2 Body Surface Area Calculated 2.05 m2 :31 Temperature 97.4 f Comments: Method: Temporal Pulse 84 /min Comments: Pattern: Regular Respiration Rate 17 /min Comments: Pattern: Unlabored O2 SAT 98 % Comments: Room air BP Systolic 132 mm[Hg] Comments: Patient Position: Sitting; Cuff Location: Left Arm; Cuff Size: Standard BP Diastolic 82 mm[Hg] Comments: Patient Position: Sitting; Cuff Location: Left Arm; Cuff Size: Standard Weight 213 lb Height 65.25 in Body Mass Index Calculated 35.17 kg/m2 Body Surface Area Calculated 2.04 m2 :09 Temperature 96.7 f Pulse 88 /min Comments: Pattern: Regular Respiration Rate 17 /min Comments: Pattern: Unlabored O2 SAT 98 % Comments: Room air BP Systolic 122 mm[Hg] Comments: Patient Position: Sitting; Cuff Location: Left Arm; Cuff Size: Standard BP Diastolic 78 mm[Hg] Comments: Patient Position: Sitting; Cuff Location: Left Arm; Cuff Size: Standard Weight 213 lb Height 65.25 in Body Mass Index Calculated 35.17 kg/m2 Body Surface Area Calculated 2.04 m2 :55 Temperature 98.8 f Pulse 84 /min Comments: Pattern: Regular Respiration Rate 18 /min Comments: Pattern: Unlabored O2 SAT 98 % Comments: Room air BP Systolic 124 mm[Hg] Comments: Patient Position: Sitting; Cuff Location: Left Arm; Cuff Size: Standard BP Diastolic 86 mm[Hg] Comments: Patient Position: Sitting; Cuff Location: Left Arm; Cuff Size: Standard Weight 213 lb Height 65.25 in Body Mass Index Calculated 35.17 kg/m2 Body Surface Area Calculated 2.04 m2 :16 Temperature 97.6 f Pulse 98 /min Comments: Pattern: Regular Respiration Rate 16 /min BP Systolic 126 mm[Hg] Comments: Patient Position: Supine; Cuff Location: Right Arm; Cuff Size: Standard BP Diastolic 84 mm[Hg] Comments: Patient Position: Supine; Cuff Location: Right Arm; Cuff Size: Standard :27 Weight 213 lb Height 65.25 in Body Mass Index Calculated 35.17 kg/m2 Body Surface Area Calculated 2.04 m2 :14 Temperature 97.5 f Comments: Method: Temporal Pulse 88 /min Comments: Pattern: Regular Respiration Rate 16 /min Comments: Pattern: Unlabored O2 SAT 98 % Comments: Room air BP Systolic 138 mm[Hg] Comments: Patient Position: Sitting; Cuff Location: Left Arm; Cuff Size: Large BP Diastolic 86 mm[Hg] Comments: Patient Position: Sitting; Cuff Location: Left Arm; Cuff Size: Large Weight 210 lb Height 65.25 in Body Mass Index Calculated 34.68 kg/m2 Body Surface Area Calculated 2.03 m2 :18 Temperature 97.5 f Pulse 73 /min Comments: Pattern: Regular Respiration Rate 16 /min Comments: Pattern: Unlabored O2 SAT 97 % Comments: Room air BP Systolic 124 mm[Hg] Comments: Patient Position: Sitting; Cuff Location: Left Arm; Cuff Size: Standard BP Diastolic 84 mm[Hg] Comments: Patient Position: Sitting; Cuff Location: Left Arm; Cuff Size: Standard Weight 208.125 lb Height 65.25 in Body Mass Index Calculated 34.37 kg/m2 Body Surface Area Calculated 2.02 m2 :08 Temperature 97.5 f Pulse 70 /min Comments: Pattern: Regular Respiration Rate 17 /min Comments: Pattern: Unlabored O2 SAT 96 % Comments: Room air BP Systolic 124 mm[Hg] Comments: Patient Position: Sitting; Cuff Location: Left Arm; Cuff Size: Standard BP Diastolic 82 mm[Hg] Comments: Patient Position: Sitting; Cuff Location: Left Arm; Cuff Size: Standard Weight 208.125 lb Height 65.25 in Body Mass Index Calculated 34.37 kg/m2 Body Surface Area Calculated 2.02 m2 :06 Temperature 97.8 f Pulse 77 /min Comments: Pattern: Regular Respiration Rate 16 /min Comments: Pattern: Unlabored O2 SAT 98 % Comments: Room air BP Systolic 124 mm[Hg] Comments: Patient Position: Sitting; Cuff Location: Left Arm; Cuff Size: Standard BP Diastolic 82 mm[Hg] Comments: Patient Position: Sitting; Cuff Location: Left Arm; Cuff Size: Standard Weight 208.125 lb Height 65.25 in Body Mass Index Calculated 34.37 kg/m2 Body Surface Area Calculated 2.02 m2 :24 Temperature 97.3 f Pulse 79 /min Comments: Pattern: Regular Respiration Rate 18 /min Comments: Pattern: Unlabored O2 SAT 97 % Comments: Room air BP Systolic 118 mm[Hg] Comments: Patient Position: Sitting; Cuff Location: Left Arm; Cuff Size: Standard BP Diastolic 82 mm[Hg] Comments: Patient Position: Sitting; Cuff Location: Left Arm; Cuff Size: Standard Weight 208.125 lb Height 65.25 in Body Mass Index Calculated 34.37 kg/m2 Body Surface Area Calculated 2.02 m2 :00 Temperature 97.6 f Pulse 112 /min Comments: Pattern: Regular Respiration Rate 16 /min Comments: Pattern: Unlabored O2 SAT 96 % Comments: Room air BP Systolic 128 mm[Hg] Comments: Patient Position: Sitting; Cuff Location: Left Arm; Cuff Size: Standard BP Diastolic 84 mm[Hg] Comments: Patient Position: Sitting; Cuff Location: Left Arm; Cuff Size: Standard Weight 208.125 lb Height 65.25 in Body Mass Index Calculated 34.37 kg/m2 Body Surface Area Calculated 2.02 m2 :44 Temperature 96.4 f Pulse 97 /min Comments: Pattern: Regular Respiration Rate 18 /min Comments: Pattern: Unlabored O2 SAT 18 % Comments: Room air BP Systolic 132 mm[Hg] Comments: Patient Position: Sitting; Cuff Location: Left Arm; Cuff Size: Standard BP Diastolic 82 mm[Hg] Comments: Patient Position: Sitting; Cuff Location: Left Arm; Cuff Size: Standard Weight 211.25 lb Height 65.25 in Body Mass Index Calculated 34.88 kg/m2 Body Surface Area Calculated 2.03 m2 :50 Temperature 97.6 f Comments: Method: Temporal Pulse 72 /min Comments: Pattern: Regular Respiration Rate 16 /min Comments: Pattern: Unlabored O2 SAT 97 % Comments: Room air BP Systolic 128 mm[Hg] Comments: Patient Position: Sitting; Cuff Location: Left Arm; Cuff Size: Standard BP Diastolic 78 mm[Hg] Comments: Patient Position: Sitting; Cuff Location: Left Arm; Cuff Size: Standard Weight 200 lb Height 65.25 in Body Mass Index Calculated 33.03 kg/m2 Body Surface Area Calculated 1.98 m2 :50 Temperature 97.2 f Comments: Method: Temporal Pulse 74 /min Comments: Pattern: Regular Respiration Rate 16 /min Comments: Pattern: Unlabored O2 SAT 95 % Comments: Room air BP Systolic 128 mm[Hg] Comments: Patient Position: Sitting; Cuff Location: Left Arm; Cuff Size: Standard BP Diastolic 78 mm[Hg] Comments: Patient Position: Sitting; Cuff Location: Left Arm; Cuff Size: Standard Weight 200 lb Height 65.25 in Body Mass Index Calculated 33.03 kg/m2 Body Surface Area Calculated 1.98 m2 :41 Temperature 97.8 f Comments: Method: Oral Pulse 88 /min Comments: Pattern: Regular Respiration Rate 18 /min O2 SAT 98 % Comments: Room air BP Systolic 142 mm[Hg] Comments: Patient Position: Sitting; Cuff Location: Left Arm; Cuff Size: Standard BP Diastolic 82 mm[Hg] Comments: Patient Position: Sitting; Cuff Location: Left Arm; Cuff Size: Standard Weight 211 lb Height 65.25 in Body Mass Index Calculated 34.84 kg/m2 Body Surface Area Calculated 2.03 m2 :34 Temperature 97.9 f Comments: Method: Oral Pulse 60 /min Comments: Pattern: Regular Respiration Rate 18 /min Comments: Pattern: Unlabored BP Systolic 118 mm[Hg] Comments: Patient Position: Sitting; Cuff Location: Left Arm; Cuff Size: Standard BP Diastolic 78 mm[Hg] Comments: Patient Position: Sitting; Cuff Location: Left Arm; Cuff Size: Standard Weight 211 lb Height 65.25 in Body Mass Index Calculated 34.84 kg/m2 Body Surface Area Calculated 2.03 m2 :50 Temperature 98.2 f Comments: Method: Temporal Pulse 72 /min Comments: Pattern: Regular Respiration Rate 16 /min Comments: Pattern: Unlabored BP Systolic 132 mm[Hg] Comments: Patient Position: Sitting; Cuff Location: Left Arm; Cuff Size: Standard BP Diastolic 76 mm[Hg] Comments: Patient Position: Sitting; Cuff Location: Left Arm; Cuff Size: Standard Weight 200.1875 lb Height 65.25 in Body Mass Index Calculated 33.06 kg/m2 Body Surface Area Calculated 1.98 m2 :46 Temperature 98.5 f Weight 200.1875 lb Height 65.25 in Body Mass Index Calculated 33.06 kg/m2 Body Surface Area Calculated 1.98 m2 :28 Pulse 80 /min Comments: Pattern: Regular Respiration Rate 16 /min Comments: Pattern: Unlabored BP Systolic 132 mm[Hg] Comments: Patient Position: Sitting; Cuff Location: Left Arm; Cuff Size: Large BP Diastolic 84 mm[Hg] Comments: Patient Position: Sitting; Cuff Location: Left Arm; Cuff Size: Large Weight 200.1875 lb Height 65.25 in Body Mass Index Calculated 33.06 kg/m2 Body Surface Area Calculated 1.98 m2 :40 Pulse 80 /min Comments: Pattern: Regular Respiration Rate 20 /min Comments: Pattern: Unlabored BP Systolic 160 mm[Hg] Comments: Patient Position: Sitting; Cuff Location: Left Arm; Cuff Size: Large BP Diastolic 98 mm[Hg] Comments: Patient Position: Sitting; Cuff Location: Left Arm; Cuff Size: Large Weight 200.1875 lb Height 65.25 in Body Mass Index Calculated 33.06 kg/m2 Body Surface Area Calculated 1.98 m2 :09 Pulse 88 /min Comments: Pattern: Regular Respiration Rate 20 /min Comments: Pattern: Unlabored BP Systolic 124 mm[Hg] Comments: Patient Position: Sitting; Cuff Location: Left Arm; Cuff Size: Large BP Diastolic 82 mm[Hg] Comments: Patient Position: Sitting; Cuff Location: Left Arm; Cuff Size: Large Weight 201.4375 lb Height 65.25 in Body Mass Index Calculated 33.26 kg/m2 Body Surface Area Calculated 1.99 m2 :50 Pulse 64 /min Comments: Pattern: Regular Respiration Rate 20 /min Comments: Pattern: Unlabored BP Systolic 138 mm[Hg] Comments: Patient Position: Sitting; Cuff Location: Left Arm; Cuff Size: Large BP Diastolic 80 mm[Hg] Comments: Patient Position: Sitting; Cuff Location: Left Arm; Cuff Size: Large Weight 200.0563 lb Height 65.25 in Body Mass Index Calculated 33.04 kg/m2 Body Surface Area Calculated 1.98 m2 :32 Comments: states, I didnt take my bp med this am Temperature 98.9 f Comments: Method: Oral Pulse 110 /min Comments: Pattern: Regular O2 SAT 96 % Comments: Room air BP Systolic 108 mm[Hg] Comments: Patient Position: Sitting; Cuff Location: Left Arm; Cuff Size: Standard BP Diastolic 62 mm[Hg] Comments: Patient Position: Sitting; Cuff Location: Left Arm; Cuff Size: Standard Weight 200.0563 lb Height 65.25 in Body Mass Index Calculated 33.04 kg/m2 Body Surface Area Calculated 1.98 m2 :32 Temperature 97.6 f Comments: Method: Oral Pulse 76 /min Comments: Pattern: Regular Respiration Rate 20 /min Comments: Pattern: Unlabored BP Systolic 122 mm[Hg] Comments: Patient Position: Sitting; Cuff Location: Left Arm; Cuff Size: Large BP Diastolic 78 mm[Hg] Comments: Patient Position: Sitting; Cuff Location: Left Arm; Cuff Size: Large Weight 200.0563 lb Height 65.25 in Body Mass Index Calculated 33.04 kg/m2 Body Surface Area Calculated 1.98 m2 :26 Pulse 68 /min Comments: Pattern: Regular Respiration Rate 16 /min Comments: Pattern: Unlabored Weight 198 lb Height 65.25 in Body Mass Index Calculated 32.7 kg/m2 Body Surface Area Calculated 1.98 m2 :57 Temperature 97.2 f Comments: Method: Oral Pulse 64 /min Comments: Pattern: Regular Respiration Rate 16 /min Comments: Pattern: Unlabored BP Systolic 122 mm[Hg] Comments: Patient Position: Sitting; Cuff Location: Left Arm; Cuff Size: Standard BP Diastolic 74 mm[Hg] Comments: Patient Position: Sitting; Cuff Location: Left Arm; Cuff Size: Standard Weight 198 lb Height 65.25 in Body Mass Index Calculated 32.7 kg/m2 Body Surface Area Calculated 1.98 m2 :30 Temperature 97.9 f Comments: Method: Oral Pulse 74 /min Comments: Pattern: Regular Respiration Rate 18 /min Comments: Pattern: Unlabored BP Systolic 140 mm[Hg] Comments: Patient Position: Sitting; Cuff Location: Left Arm; Cuff Size: Standard BP Diastolic 80 mm[Hg] Comments: Patient Position: Sitting; Cuff Location: Left Arm; Cuff Size: Standard Weight 198 lb Height 65.25 in Body Mass Index Calculated 32.7 kg/m2 Body Surface Area Calculated 1.98 m2 :26 Temperature 98 f Comments: Method: Oral Pulse 70 /min Comments: Pattern: Regular Respiration Rate 18 /min Comments: Pattern: Unlabored BP Systolic 126 mm[Hg] Comments: Patient Position: Sitting; Cuff Location: Left Arm; Cuff Size: Standard BP Diastolic 78 mm[Hg] Comments: Patient Position: Sitting; Cuff Location: Left Arm; Cuff Size: Standard Weight 198 lb Height 65.25 in Body Mass Index Calculated 32.7 kg/m2 Body Surface Area Calculated 1.98 m2 :37 Temperature 97.3 f Comments: Method: Oral Pulse 74 /min Comments: Pattern: Regular Respiration Rate 16 /min Comments: Pattern: Unlabored BP Systolic 124 mm[Hg] Comments: Patient Position: Sitting; Cuff Location: Left Arm; Cuff Size: Standard BP Diastolic 72 mm[Hg] Comments: Patient Position: Sitting; Cuff Location: Left Arm; Cuff Size: Standard Weight 193 lb Height 65.25 in Body Mass Index Calculated 31.87 kg/m2 Body Surface Area Calculated 1.95 m2 :26 Temperature 97.2 f Comments: Method: Oral Pulse 88 /min Comments: Pattern: Regular Respiration Rate 17 /min Comments: Pattern: Unlabored BP Systolic 136 mm[Hg] Comments: Patient Position: Sitting; Cuff Location: Left Arm; Cuff Size: Standard BP Diastolic 82 mm[Hg] Comments: Patient Position: Sitting; Cuff Location: Left Arm; Cuff Size: Standard Weight 193 lb Height 65.25 in Body Mass Index Calculated 31.87 kg/m2 Body Surface Area Calculated 1.95 m2 :46 Temperature 97.9 f Comments: Method: Oral Pulse 76 /min Comments: Pattern: Regular Respiration Rate 18 /min Comments: Pattern: Unlabored BP Systolic 134 mm[Hg] Comments: Patient Position: Sitting; Cuff Location: Left Arm; Cuff Size: Standard BP Diastolic 78 mm[Hg] Comments: Patient Position: Sitting; Cuff Location: Left Arm; Cuff Size: Standard Weight 193 lb Height 65.25 in Body Mass Index Calculated 31.87 kg/m2 Body Surface Area Calculated 1.95 m2 :21 Temperature 97.6 f Comments: Method: Oral Pulse 74 /min Comments: Pattern: Regular Respiration Rate 20 /min Comments: Pattern: Unlabored BP Systolic 120 mm[Hg] Comments: Patient Position: Sitting; Cuff Location: Left Arm; Cuff Size: Standard BP Diastolic 80 mm[Hg] Comments: Patient Position: Sitting; Cuff Location: Left Arm; Cuff Size: Standard Weight 193 lb Height 65.25 in Body Mass Index Calculated 31.87 kg/m2 Body Surface Area Calculated 1.95 m2 :25 Temperature 98.2 f Comments: Method: Oral Pulse 72 /min Comments: Pattern: Regular Respiration Rate 18 /min Comments: Pattern: Unlabored BP Systolic 118 mm[Hg] Comments: Patient Position: Sitting; Cuff Location: Left Arm; Cuff Size: Standard BP Diastolic 84 mm[Hg] Comments: Patient Position: Sitting; Cuff Location: Left Arm; Cuff Size: Standard Weight 193 lb Height 65.25 in Body Mass Index Calculated 31.87 kg/m2 Body Surface Area Calculated 1.95 m2 :11 Temperature 98.1 f Comments: Method: Oral Pulse 72 /min Comments: Pattern: Regular Respiration Rate 18 /min Comments: Pattern: Unlabored BP Systolic 122 mm[Hg] Comments: Patient Position: Sitting; Cuff Location: Left Arm; Cuff Size: Large BP Diastolic 80 mm[Hg] Comments: Patient Position: Sitting; Cuff Location: Left Arm; Cuff Size: Large Weight 193 lb Height 65.25 in Body Mass Index Calculated 31.87 kg/m2 Body Surface Area Calculated 1.95 m2 :41 Pulse 70 /min Comments: Pattern: Regular Respiration Rate 18 /min Comments: Pattern: Unlabored BP Systolic 120 mm[Hg] Comments: Patient Position: Sitting; Cuff Location: Left Arm; Cuff Size: Standard BP Diastolic 78 mm[Hg] Comments: Patient Position: Sitting; Cuff Location: Left Arm; Cuff Size: Standard Weight 201 lb :50 Pulse 70 /min Comments: Pattern: Regular Respiration Rate 18 /min Comments: Pattern: Unlabored BP Systolic 118 mm[Hg] Comments: Patient Position: Sitting; Cuff Location: Left Arm; Cuff Size: Large BP Diastolic 78 mm[Hg] Comments: Patient Position: Sitting; Cuff Location: Left Arm; Cuff Size: Large Weight 200 lb Height 0 in Head Circumference 0.00 cm :55 Pulse 74 /min Comments: Pattern: Regular Respiration Rate 16 /min Comments: Pattern: Unlabored BP Systolic 120 mm[Hg] Comments: Patient Position: Sitting; Cuff Location: Left Arm; Cuff Size: Large BP Diastolic 84 mm[Hg] Comments: Patient Position: Sitting; Cuff Location: Left Arm; Cuff Size: Large Weight 198 lb Height 0 in Head Circumference 0.00 cm :29 Pulse 80 /min Comments: Pattern: Regular Respiration Rate 20 /min Comments: Pattern: Unlabored BP Systolic 138 mm[Hg] Comments: Patient Position: Sitting; Cuff Location: Left Arm; Cuff Size: Standard BP Diastolic 86 mm[Hg] Comments: Patient Position: Sitting; Cuff Location: Left Arm; Cuff Size: Standard Weight 198 lb Height 65.25 in Body Mass Index Calculated 32.7 kg/m2 Body Surface Area Calculated 1.98 m2 Head Circumference 0.00 cm :57 Temperature 98.6 f Comments: Method: Oral Pulse 72 /min Comments: Pattern: Regular Respiration Rate 18 /min Comments: Pattern: Unlabored BP Systolic 122 mm[Hg] Comments: Patient Position: Sitting; Cuff Location: Left Arm; Cuff Size: Standard BP Diastolic 80 mm[Hg] Comments: Patient Position: Sitting; Cuff Location: Left Arm; Cuff Size: Standard Weight 192 lb Height 65.25 in Body Mass Index Calculated 31.71 kg/m2 Body Surface Area Calculated 1.95 m2 Head Circumference 0.00 cm :04 Temperature 98 f Comments: Method: Oral Pulse 58 /min Comments: Pattern: Regular Respiration Rate 15 /min Comments: Pattern: Unlabored BP Systolic 124 mm[Hg] Comments: Patient Position: Sitting; Cuff Location: Left Arm; Cuff Size: Standard BP Diastolic 80 mm[Hg] Comments: Patient Position: Sitting; Cuff Location: Left Arm; Cuff Size: Standard Weight 194.25 lb Height 66 in Body Mass Index Calculated 31.35 kg/m2 Body Surface Area Calculated 1.98 m2 Head Circumference 0.00 cm Results Date Description Value Details :48 VITAMIN B12 AND FOLATES Comments: PATIENT NOT FASTINGPERFORMED BY: [facility] [id number] ([id number]) Folate (Folic Acid), Serum 14.1 ng/mL (Normal) Comments: A serum folate concentration of less than 3.1 ng/mL isconsidered to represent clinical deficiency. Vitamin B12 593 pg/mL (Normal) Range: 232-1245 :16 CALCIFEDIOL ([id number]) Comments: PATIENT WAS FASTINGPERFORMED BY: [facility] [id number] Vitamin D, 25-Hydroxy 51.5 ng/mL (Normal) Range: 30.0-100.0 Comments: Vitamin D deficiency has been defined by the [place] [employer] and an Endocrine Society practice guideline as alevel of serum 25-OH vitamin D less than 20 ng/mL (1,2).The Endocrine Society went on to further define vitamin Dinsufficiency as a level between 21 and 29 ng/mL (2).1. IOM ([place] [employer]). 2010. Dietary reference intakes for calcium and D. [place]: The National Academies Press.2. Joe MF, Carrie [place], Mellisa SALMON, et al. Evaluation, treatment, and prevention of vitamin D deficiency: an Endocrine Society clinical practice guideline. JCEM. 2010; 96(7):1911-30. :16 LIPID PANEL (06204) Comments: PATIENT WAS FASTINGPERFORMED BY: [facility] [id number] LDL/HDL Ratio 1.4 {ratio} (Normal) Range: 0.0-3.2 Comments: LDL/HDL Ratio Men Women 1/2 Avg.Risk 1.0 1.5 Av g.Risk 3.6 3.2 2X Avg.Risk 6.2 5.0 3X Avg.Risk 8.0 6.1 LDL Cholesterol Calc 86 mg/dL (Normal) Range: 0-99 VLDL Cholesterol Jennifer 40 mg/dL (Normal) Range: 5-40 HDL Cholesterol 62 mg/dL (Normal) Triglycerides 201 mg/dL (Abnormal) Range: 0-149 Cholesterol, Total 188 mg/dL (Normal) Range: 100-199 :16 TSH (THYROID STIMULATING Comments: PATIENT WAS FASTINGPERFORMED BY: [facility]edSt[facility] CenterPsfugk84[facility] [id number] HORMONE) ([id number]) TSH 0.975 {uIU/mL} (Normal) Range: 0.450-4.500 :16 METABOLIC PANEL, COMPREHENSIVE Comments: PATIENT WAS FASTINGPERFORMED BY: [facility]St[facility] CenterXgtbyg6207 [facility] [id number] ([id number]) ALT (SGPT) 14 [iU]/L (Normal) Range: 0-32 AST (SGOT) 20 [iU]/L (Normal) Range: 0-40 Alkaline Phosphatase 88 [iU]/L (Normal) Range: 39-117 Bilirubin, Total 0.6 mg/dL (Normal) Range: 0.0-1.2 A/G Ratio 1.6 (Normal) Range: 1.2-2.2 Globulin, Total 2.5 g/dL (Normal) Range: 1.5-4.5 Albumin 4.0 g/dL (Normal) Range: 3.5-4.8 Protein, Total 6.5 g/dL (Normal) Range: 6.0-8.5 Calcium 9.4 mg/dL (Normal) Range: 8.7-10.3 Carbon Dioxide, Total 25 mmol/L (Normal) Range: 20-29 Chloride 103 mmol/L (Normal) Range: 96-106 Potassium 4.3 mmol/L (Normal) Range: 3.5-5.2 Sodium 144 mmol/L (Normal) Range: 134-144 BUN/Creatinine Ratio 17 (Normal) Range: 12-28 eGFR If Africn Am 69 mL/min/1.73 (Normal) eGFR If NonAfricn Am 60 mL/min/1.73 (Normal) Creatinine 0.95 mg/dL (Normal) Range: 0.57-1.00 BUN 16 mg/dL (Normal) Range: 8-27 Glucose 82 mg/dL (Normal) Range: 65-99 :16 CBC & PLATELETS (AUTO) ([id number]) Comments: PATIENT WAS FASTINGPERFORMED BY: [facility]edCar[facility] CenterFgkvfp4535 [facility] [id number] Platelets 193 {x10E3/uL} (Normal) Range: 150-379 RDW 14.2 % (Normal) Range: 12.3-15.4 MCHC 34.7 g/dL (Normal) Range: 31.5-35.7 MCH 33.6 pg (Abnormal) Range: 26.6-33.0 MCV 97 fL (Normal) Range: 79-97 Hematocrit 41.2 % (Normal) Range: 34.0-46.6 Hemoglobin 14.3 g/dL (Normal) Range: 11.1-15.9 RBC 4.25 {x10E6/uL} (Normal) Range: 3.77-5.28 WBC 4.8 {x10E3/uL} (Normal) Range: 3.4-10.8 [id number] THROAT CULTURE ([id number]) Comments: PATIENT NOT FASTINGPERFORMED BY: [facility] [facility] TechnologiesUNC Health [id number] Information: SRC:TH Result 1 RRF (Normal) Comments: Routine respiratory dodie Upper Respiratory Culture Final report (Normal) [id number] Rapid Strep Test, Office ([id number]) Rapid Strep Test, Office Negative (Normal) :39 URINE ANTHONY CULTURE-MARIA T COL Comments: PATIENT NOT FASTINGPERFORMED BY: [employer] Reporting TechnologiesUNC Health [id number] Information: SRC:UC COUNT ([id number]) Result 1 BETAGF (Abnormal) Comments: Beta hemolytic Streptococcus, group F3,000 Colonies/mLMixed urogenital flora3,000 Colonies/mL Urine Final report (Abnormal) Culture,Comprehensive [id number] Urinalysis, Office ([id number]) UA - LEUKOCYTE ESTERASE Trace (Normal) UA - NITRITE Negative (Normal) URINE UROBILINGN MARIA T TIMED 2 mg/dL (Normal) UA - PROTEIN Negative mg/dL (Normal) UA - PH 7.5 (Normal) UA - BLOOD Negative (Normal) UA - SPECIFIC GRAVITY 1.020 (Normal) UA - KETONES Negative mg/dL (Normal) UA - BILIRUBIN Negative (Normal) UA - GLUCOSE Negative (Normal) :44 CALCIFEDIOL (35323) Comments: PATIENT WAS FASTINGPERFORMED BY: Spotfav Reporting Technologiesblin [place] [id number] Vitamin D, 25-Hydroxy 47.5 ng/mL (Normal) Range: 30.0-100.0 Comments: Vitamin D deficiency has been defined by the [place] and an Endocrine Society practice guideline as alevel of serum 25-OH vitamin D less than 20 ng/mL (1,2).The Endocrine Society went on to further define vitamin Dinsufficiency as a level between 21 and 29 ng/mL (2).1. IOM ([place] of [place]). 2010. Dietary reference intakes for calcium and D. [place]: The National Academies Press.2. Joe MF, Carrie NC, Mellisa SALMON, et al. Evaluation, treatment, and prevention of vitamin D deficiency: an Endocrine Society clinical practice guideline. JCEM. 2010; 96(7):1911-30. 19-Jul-20178:44 CBC, PLATELETS & AUT DIFF Comments: PATIENT WAS FASTINGPERFORMED BY: PATRIA LabCoSt. [facility] CenterKlcswz6629 [facility] [id number] Information: NO UR @ UPLOAD (47891) Immature Grans (Abs) 0.0 {x10E3/uL} (Normal) Range: 0.0-0.1 Immature Granulocytes 0 % (Normal) Baso (Absolute) 0.0 {x10E3/uL} (Normal) Range: 0.0-0.2 Eos (Absolute) 0.1 {x10E3/uL} (Normal) Range: 0.0-0.4 Monocytes(Absolute) 0.4 {x10E3/uL} (Normal) Range: 0.1-0.9 Lymphs (Absolute) 1.1 {x10E3/uL} (Normal) Range: 0.7-3.1 Neutrophils (Absolute) 3.0 {x10E3/uL} (Normal) Range: 1.4-7.0 Basos 0 % (Normal) Eos 2 % (Normal) Monocytes 9 % (Normal) Lymphs 24 % (Normal) Neutrophils 65 % (Normal) Platelets 200 {x10E3/uL} (Normal) Range: 150-379 RDW 14.0 % (Normal) Range: 12.3-15.4 MCHC 35.3 g/dL (Normal) Range: 31.5-35.7 MCH 34.7 pg (Abnormal) Range: 26.6-33.0 MCV 98 fL (Abnormal) Range: 79-97 Hematocrit 38.8 % (Normal) Range: 34.0-46.6 Hemoglobin 13.7 g/dL (Normal) Range: 11.1-15.9 RBC 3.95 {x10E6/uL} (Normal) Range: 3.77-5.28 WBC 4.6 {x10E3/uL} (Normal) Range: 3.4-10.8 :44 METABOLIC PANEL, COMPREHENSIVE Comments: PATIENT WAS FASTINGPERFORMED BY: LabCoSt. Francis Medical CenterAwljzd1434 [facility] [id number] (31183) ALT (SGPT) 13 [iU]/L (Normal) Range: 0-32 AST (SGOT) 20 [iU]/L (Normal) Range: 0-40 Alkaline Phosphatase, S 99 [iU]/L (Normal) Range: 39-117 Bilirubin, Total 0.7 mg/dL (Normal) Range: 0.0-1.2 A/G Ratio 1.6 (Normal) Range: 1.2-2.2 Globulin, Total 2.6 g/dL (Normal) Range: 1.5-4.5 Albumin, Serum 4.1 g/dL (Normal) Range: 3.5-4.8 Protein, Total, Serum 6.7 g/dL (Normal) Range: 6.0-8.5 Calcium, Serum 8.9 mg/dL (Normal) Range: 8.7-10.3 Carbon Dioxide, Total 24 mmol/L (Normal) Range: 18-29 Chloride, Serum 101 mmol/L (Normal) Range: 96-106 Potassium, Serum 4.1 mmol/L (Normal) Range: 3.5-5.2 Sodium, Serum 143 mmol/L (Normal) Range: 134-144 BUN/Creatinine Ratio 24 (Normal) Range: 12-28 eGFR If Africn Am 87 mL/min/1.73 (Normal) eGFR If NonAfricn Am 76 mL/min/1.73 (Normal) Creatinine, Serum 0.79 mg/dL (Normal) Range: 0.57-1.00 BUN 19 mg/dL (Normal) Range: 8-27 Glucose, Serum 89 mg/dL (Normal) Range: 65-99 :44 TSH (THYROID STIMULATING Comments: PATIENT WAS FASTINGPERFORMED BY: [facility]Core[facility]6370 [facility] [id number] HORMONE) (97644) TSH 0.771 {uIU/mL} (Normal) Range: 0.450-4.500 :44 LIPID PANEL (17982) Comments: PATIENT WAS FASTINGPERFORMED BY: LabCoSt. Francis Medical CenterDzgdgn5911 [facility] [id number] LDL/HDL Ratio 1.4 {ratio_units} (Normal) Range: 0.0-3.2 Comments: LDL/HDL Ratio Men Women 1/2 Avg.Risk 1.0 1.5 Av g.Risk 3.6 3.2 2X Avg.Risk 6.2 5.0 3X Avg.Risk 8.0 6.1 LDL Cholesterol Calc 81 mg/dL (Normal) Range: 0-99 VLDL Cholesterol Jennifer 29 mg/dL (Normal) Range: 5-40 HDL Cholesterol 60 mg/dL (Normal) Triglycerides 147 mg/dL (Normal) Range: 0-149 Cholesterol, Total 170 mg/dL (Normal) Range: 100-199 :55 Basic Metabolic Profile (BMP) Comments: [facility] [address] [place], [address] GAP 6 (Normal) Range: 5-15 CO2 30.0 mmol/L (Normal) Range: 21.0-32.0 CL 105 mmol/L (Normal) Range: 98-107 K 3.7 mmol/L (Normal) Range: 3.5-5.1 NA 141 mmol/L (Normal) Range: 136-145 CA 9.3 mg/dL (Normal) Range: 8.5-10.1 BUN/CRE 19.2 {RATIO} (Normal) Range: 10-20 EST GFR - AA 81 mL/min (Normal) Comments: GFR Calc EST GFR 67 mL/min (Normal) Comments: Non- GFR Calc CREAT,SERUM 0.89 mg/dL (Normal) Range: 0.55-1.02 Comments: The validity of the calculated GFR AND GFRAA in patients over70 years has not been determined. Clinical correlation isessential. BUN 17 mg/dL (Normal) Range: 7-18 GLU 93 mg/dL (Normal) Range: 70-110 :55 CBC-Complete Blood Cnt No Diff Comments: [facility] [address] [place], [place], [address] ; another doc MPV 9.7 fL (Normal) Range: 6.2-12.0 PLT 215 K/mm3 (Normal) Range: 150-450 RDW SD 45.6 fL (Abnormal) Range: 35.1-43.9 RDW CV 13.4 % (Normal) Range: 11.6-14.6 MCHC 33.3 {g/gl} (Normal) Range: 32-36 MCH 31.1 pg (Normal) Range: 27.0-32.0 MCV 93.4 fL (Normal) Range: 81-99 HCT 43.8 % (Normal) Range: 37-47 HGB 14.6 g/dL (Normal) Range: 12.0-15.0 RBC 4.69 {M/mm3} (Normal) Range: 4.2-5.4 WBC 5.0 K/mm3 (Normal) Range: 4.4-11.0 :39 Lipid Profile Comments: Order Date: 09/27/16Order Info: [id number] - *Hepatic Function PanelOrder Date: 09/27/16Order Info: [id number] - *Lipid Profile CC PCPComments: 12 hours fasting, may have water.[facility] [address] [place], [place], [address] VLDL 34 mg/dL (Normal) Range: 5-40 LDL 80 mg/dL (Normal) Range: 0-130 HDL 73 mg/dL (Normal) Comments: The drugs N-Acetylcysteine and Metamizole may falsely deressthis assay. Reference Range HDL <40 mg/dL Low HDL Cholesterol HDL >or= 60 mg/dL High HDL Cholesterol TRIG 171 mg/dL (Normal) Comments: The drugs N-Acetylcysteine and Metamizole may falsely deressthis assay.Serum Triglycerides Reference Interval Normal <150 mg/dL Borderline high 150 - 199 mg/dL High 200 - 499 mg/dL Very High > or = 500 mg/dL CHOL 187 mg/dL (Normal) Comments: <200 mg/dL Desirable 200-240 mg/dL Borderline >240 mg/dL High Risk 13-Mub-83358:39 Liver Profile Comments: Order Date: 09/27/16Order Info: [id number] - *Hepatic Function PanelOrder Date: 09/27/16Order Info: [id number] - *Lipid Profile CC PCPComments: 12 hours fasting, may have water.[facility] [place], [address] ; another doc D BILI 0.14 mg/dL (Normal) Range: 0.00-0.30 T BILI 0.60 mg/dL (Normal) Range: 0.20-1.00 ALT 18 U/L (Normal) Range: 12-78 ALK P 91 U/L (Normal) Range: 45-117 AST 20 U/L (Normal) Range: 15-37 GLOB 3.9 g/dL (Abnormal) Range: 2.3-3.5 ALB 3.5 g/dL (Normal) Range: 3.4-5.0 T PROT 7.4 g/dL (Normal) Range: 6.4-8.2 14-Jun-20162:30 Pathology Report Comments: PERFORMED BY: CYT [facility] [place] [facility]to Jhnqm70541 [facility] [id number] Information: [id number] See MATER Comments: Material submitted: .SHAVE BIOPSY FACEClinician provided ICD-10:L98.9Clinical history: .IRRITATED NEVUS Note (Normal) Diagnosis:SHAVE BIOPSY FACE: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 ONTHE DARRICK FACE IS A RAISED ROTH 0.4 CM LESION. THE SURGICAL MARGIN ISINKED BLACK AND THE SPECIMEN IS BISECTED. THE SPECIMEN IS SUBMITTEDIN CASSETTE(S) A./LMSLMS/LMSCPT .[id number] :41 TSH (THYROID STIMULATING Comments: PATIENT WAS FASTINGPERFORMED BY: [employer] Wzwxcr55[address] RoadDublin [place] [id number] HORMONE) (64937) TSH 1.110 {uIU/mL} (Normal) Range: 0.450-4.500 :41 CALCIFEDIOL (37017) Comments: PATIENT WAS FASTINGPERFORMED BY: [employer] Nqydjo3575 [address] RoadDublin [place] [id number] Vitamin D, 25-Hydroxy 45.8 ng/mL (Normal) Range: 30.0-100.0 Comments: Vitamin D deficiency has been defined by the [place] and an Endocrine Society practice guideline as alevel of serum 25-OH vitamin D less than 20 ng/mL (1,2).The Endocrine Society went on to further define vitamin Dinsufficiency as a level between 21 and 29 ng/mL (2).1. IOM ([place]). 2010. Dietary reference intakes for calcium and D. [place]: The National Academies Press.2. Joe MF, Carrie NC, Mellisa SALMON, et al. Evaluation, treatment, and prevention of vitamin D deficiency: an Endocrine Society clinical practice guideline. JCEM. 2010; 96(7):1911-30. :41 CBC, Platelets & Auto Diff Comments: PATIENT WAS FASTINGPERFORMED BY: [facility] Wnvhtv8[address]ublin [place] [id number] (80212) Immature Grans (Abs) 0.0 {x10E3/uL} (Normal) Range: 0.0-0.1 Immature Granulocytes 0 % (Normal) Baso (Absolute) 0.0 {x10E3/uL} (Normal) Range: 0.0-0.2 Eos (Absolute) 0.1 {x10E3/uL} (Normal) Range: 0.0-0.4 Monocytes(Absolute) 0.4 {x10E3/uL} (Normal) Range: 0.1-0.9 Lymphs (Absolute) 1.4 {x10E3/uL} (Normal) Range: 0.7-3.1 Neutrophils (Absolute) 3.1 {x10E3/uL} (Normal) Range: 1.4-7.0 Basos 1 % (Normal) Eos 2 % (Normal) Monocytes 8 % (Normal) Lymphs 27 % (Normal) Neutrophils 62 % (Normal) Platelets 193 {x10E3/uL} (Normal) Range: 150-379 RDW 14.2 % (Normal) Range: 12.3-15.4 MCHC 34.8 g/dL (Normal) Range: 31.5-35.7 MCH 33.2 pg (Abnormal) Range: 26.6-33.0 MCV 95 fL (Normal) Range: 79-97 Hematocrit 39.9 % (Normal) Range: 34.0-46.6 Hemoglobin 13.9 g/dL (Normal) Range: 11.1-15.9 RBC 4.19 {x10E6/uL} (Normal) Range: 3.77-5.28 WBC 5.0 {x10E3/uL} (Normal) Range: 3.4-10.8 14-Jun-20168:41 Lipid Panel (95472) Comments: PATIENT WAS FASTINGPERFORMED BY: LabCoSt. Francis Medical CenterCxvooj4380 [facility] [id number] LDL/HDL Ratio 1.6 {ratio_units} (Normal) Range: 0.0-3.2 Comments: LDL/HDL Ratio Men Women 1/2 Avg.Risk 1.0 1.5 Av g.Risk 3.6 3.2 2X Avg.Risk 6.2 5.0 3X Avg.Risk 8.0 6.1 LDL Cholesterol Calc 87 mg/dL (Normal) Range: 0-99 VLDL Cholesterol Jennifer 51 mg/dL (Abnormal) Range: 5-40 HDL Cholesterol 56 mg/dL (Normal) Comments: According to ATP-III Guidelines, HDL-C >59 mg/dL is considered anegative risk factor for CHD. Triglycerides 256 mg/dL (Abnormal) Range: 0-149 Cholesterol, Total 194 mg/dL (Normal) Range: 100-199 14-Jun-20168:41 Metabolic Panel, Comprehensive Comments: PATIENT WAS FASTINGPERFORMED BY: [facility] Owpmme8904 [facility] [id number]; OV 06/27 (00765) ALT (SGPT) 17 [iU]/L (Normal) Range: 0-32 AST (SGOT) 20 [iU]/L (Normal) Range: 0-40 Alkaline Phosphatase, S 88 [iU]/L (Normal) Range: 39-117 Bilirubin, Total 0.5 mg/dL (Normal) Range: 0.0-1.2 A/G Ratio 1.5 (Normal) Range: 1.1-2.5 Globulin, Total 2.6 g/dL (Normal) Range: 1.5-4.5 Albumin, Serum 3.9 g/dL (Normal) Range: 3.5-4.8 Protein, Total, Serum 6.5 g/dL (Normal) Range: 6.0-8.5 Calcium, Serum 9.3 mg/dL (Normal) Range: 8.7-10.3 Carbon Dioxide, Total 25 mmol/L (Normal) Range: 18-29 Chloride, Serum 101 mmol/L (Normal) Range: 97-108 Comments: Effective June 27, 2016 the reference interval for Chloride, Serum will be changing to: 97 - 106 Potassium, Serum 4.1 mmol/L (Normal) Range: 3.5-5.2 Comments: Effective June 27, 2016 the reference interval for Potassium, Serum will be changing to: 0 - 7 days 3.7 - 5.2 8 - 30 days 3.7 - 6.4 1 - 6 months 3.8 - 6.0 7 months - 1 year 3.8 - 5.3 >1 year 3.5 - 5.2 Sodium, Serum 144 mmol/L (Normal) Range: 134-144 Comments: Effective June 27, 2016 the reference interval for Sodium, Serum will be changing to: 136 - 144 BUN/Creatinine Ratio 20 (Normal) Range: 11-26 eGFR If Africn Am 88 mL/min/1.73 (Normal) eGFR If NonAfricn Am 76 mL/min/1.73 (Normal) Creatinine, Serum 0.79 mg/dL (Normal) Range: 0.57-1.00 BUN 16 mg/dL (Normal) Range: 8-27 Glucose, Serum 80 mg/dL (Normal) Range: 65-99 42-Sad-656784:28 Celiac Disease Profile Comments: [facility] (refer to report for specific site)refer to report for address and phone number ENDOMYSIAL IGA Negative (Normal) tTG IGA <2 U/mL (Normal) Range: 0-3 Comments: Negative 0 - 3 Weak Positive 4 - 10 Positive >10 Tissue Transglutaminase (tTG) has been identified as the endomysial anti gen. Studies have demonstr- ated that endomysial IgA antibodies have over 99% specificity for gluten sensitive enteropathy. IMMUNO A 296 mg/dL (Normal) Range: 87-352 Comments: Please note reference interval changePerformed at: [address] [id number] Director: Itz Hartley PhD, Phone: [phone] 08-Yph-430559:36 Fecal Occult Blood , Office (37913) Fecal Occult Blood , Office (Inhouse) negative (Normal) 48-Rwv-799462:49 HELICOBACTER PYLORI ANTIBODY Comments: PATIENT NOT FASTINGPERFORMED BY: [address] [id number] (53280) H. pylori, IgG Abs <0.9 U/mL (Normal) Range: 0.0-0.8 Comments: Negative <0.9 Indeterminate 0.9 - 1.0 Positive >1.0 04-Cvo-008262:49 CBC, Platelets & Auto Comments: PATIENT NOT FASTINGPERFORMED BY: [address] [id number] Information: [id number] Diff (25700) Immature Grans (Abs) 0.0 {x10E3/uL} (Normal) Range: 0.0-0.1 Immature Granulocytes 0 % (Normal) Baso (Absolute) 0.0 {x10E3/uL} (Normal) Range: 0.0-0.2 Eos (Absolute) 0.3 {x10E3/uL} (Normal) Range: 0.0-0.4 Monocytes(Absolute) 0.5 {x10E3/uL} (Normal) Range: 0.1-0.9 Lymphs (Absolute) 1.2 {x10E3/uL} (Normal) Range: 0.7-3.1 Neutrophils (Absolute) 4.4 {x10E3/uL} (Normal) Range: 1.4-7.0 Basos 0 % (Normal) Eos 5 % (Normal) Monocytes 8 % (Normal) Lymphs 18 % (Normal) Neutrophils 69 % (Normal) Platelets 209 {x10E3/uL} (Normal) Range: 150-379 RDW 14.1 % (Normal) Range: 12.3-15.4 MCHC 34.6 g/dL (Normal) Range: 31.5-35.7 MCH 32.2 pg (Normal) Range: 26.6-33.0 MCV 93 fL (Normal) Range: 79-97 Hematocrit 42.8 % (Normal) Range: 34.0-46.6 Hemoglobin 14.8 g/dL (Normal) Range: 11.1-15.9 RBC 4.59 {x10E6/uL} (Normal) Range: 3.77-5.28 WBC 6.5 {x10E3/uL} (Normal) Range: 3.4-10.8 95-Xjv-851484:49 Metabolic Panel, Comprehensive Comments: PATIENT NOT FASTINGPERFORMED BY: LabCoSt. Francis Medical CenterUkbikc5541 [facility] [id number] (60537) ALT (SGPT) 14 [iU]/L (Normal) Range: 0-32 AST (SGOT) 20 [iU]/L (Normal) Range: 0-40 Alkaline Phosphatase, S 104 [iU]/L (Normal) Range: 39-117 Bilirubin, Total 0.4 mg/dL (Normal) Range: 0.0-1.2 A/G Ratio 1.7 (Normal) Range: 1.1-2.5 Globulin, Total 2.4 g/dL (Normal) Range: 1.5-4.5 Albumin, Serum 4.0 g/dL (Normal) Range: 3.6-4.8 Protein, Total, Serum 6.4 g/dL (Normal) Range: 6.0-8.5 Calcium, Serum 9.6 mg/dL (Normal) Range: 8.7-10.3 Carbon Dioxide, Total 23 mmol/L (Normal) Range: 18-29 Chloride, Serum 103 mmol/L (Normal) Range: 97-108 Potassium, Serum 4.1 mmol/L (Normal) Range: 3.5-5.2 Sodium, Serum 142 mmol/L (Normal) Range: 134-144 BUN/Creatinine Ratio 15 (Normal) Range: 11-26 eGFR If Africn Am 73 mL/min/1.73 (Normal) eGFR If NonAfricn Am 64 mL/min/1.73 (Normal) Creatinine, Serum 0.92 mg/dL (Normal) Range: 0.57-1.00 BUN 14 mg/dL (Normal) Range: 8-27 Glucose, Serum 86 mg/dL (Normal) Range: 65-99 22-Tpf-316591:15 URINE ANTHONY CULTURE-IDENTIFICATN Comments: PATIENT NOT FASTINGPERFORMED BY: LabCoSt. Francis Medical CenterTpozyo4147 [facility] [id number] Information: [id number] (50885) Result 1 MUG (Normal) Comments: Mixed urogenital flora2,000 Colonies/mL Urine Culture,Comprehensive Final report (Normal) 33-Vtc-18667:46 Urinalysis, Office (30157) UA - LEUKOCYTE ESTERASE Small (Normal) UA - NITRITE Negative (Normal) URINE UROBILINGN MARIA T TIMED Normal mg/dL (Normal) UA - PROTEIN Negative mg/dL (Normal) UA - PH 5 (Abnormal) UA - BLOOD Negative (Normal) UA - SPECIFIC GRAVITY 1.030 (Abnormal) UA - KETONES Moderate mg/dL (Normal) UA - BILIRUBIN Small (Normal) UA - GLUCOSE Negative (Normal) 2-Hic-669545:02 T4 Total, Thyroxin Comments: SEND RESULTS TO DR. RICK'S OFFICE WELL [facility] [address] [place], [place], [address] T4 THYROXIN 8.8 ug/dL (Normal) Range: 4.8-13.9 5-Rau-799581:02 Thyroid Stim Hormone (TSH) Comments: SEND RESULTS TO DR. RICK'S OFFICE WELL [facility] [address] [place], [address] TSH 1.28 {uIU/mL} (Normal) Range: 0.358-3.74 83-Ojo-032440:51 Rapid Strep Test, Office (74030) Rapid Strep Test, Office Negative (Normal) 70-Jhr-888375:35 Throat Culture (91531) Comments: PATIENT NOT FASTINGPERFORMED BY: [employer] [facility] [id number] Information: SRC:THRT [id number] Result 1 RRF (Normal) Comments: Routine respiratory dodie Upper Respiratory Culture Final report (Normal) 13-Aug-20148:31 METABOLIC PANEL, COMPREHENSIVE Comments: PATIENT WAS FASTINGPERFORMED BY: [employer]70 [facility] [id number] (70195) ALT (SGPT) 11 [iU]/L (Normal) Range: 0-32 AST (SGOT) 17 [iU]/L (Normal) Range: 0-40 Alkaline Phosphatase, S 80 [iU]/L (Normal) Range: 39-117 Bilirubin, Total 0.6 mg/dL (Normal) Range: 0.0-1.2 A/G Ratio 1.6 (Normal) Range: 1.1-2.5 Globulin, Total 2.6 g/dL (Normal) Range: 1.5-4.5 Albumin, Serum 4.2 g/dL (Normal) Range: 3.6-4.8 Protein, Total, Serum 6.8 g/dL (Normal) Range: 6.0-8.5 Calcium, Serum 9.4 mg/dL (Normal) Range: 8.6-10.2 Carbon Dioxide, Total 23 mmol/L (Normal) Range: 18-29 Chloride, Serum 101 mmol/L (Normal) Range: 97-108 Potassium, Serum 4.0 mmol/L (Normal) Range: 3.5-5.2 Sodium, Serum 142 mmol/L (Normal) Range: 134-144 BUN/Creatinine Ratio 21 (Normal) Range: 11-26 eGFR If Africn Am 85 mL/min/1.73 (Normal) eGFR If NonAfricn Am 74 mL/min/1.73 (Normal) Creatinine, Serum 0.82 mg/dL (Normal) Range: 0.57-1.00 BUN 17 mg/dL (Normal) Range: 8-27 Glucose, Serum 86 mg/dL (Normal) Range: 65-99 :31 LIPID PANEL (57436) Comments: PATIENT WAS FASTINGPERFORMED BY: [employer]6370 [facility] [id number] LDL/HDL Ratio 1.5 {ratio_units} (Normal) Range: 0.0-3.2 Comments: LDL/HDL Ratio Men Women 1/2 Avg.Risk 1.0 1.5 Av g.Risk 3.6 3.2 2X Avg.Risk 6.2 5.0 3X Avg.Risk 8.0 6.1 LDL Cholesterol Calc 93 mg/dL (Normal) Range: 0-99 VLDL Cholesterol Jennifer 53 mg/dL (Abnormal) Range: 5-40 HDL Cholesterol 61 mg/dL (Normal) Comments: According to ATP-III Guidelines, HDL-C >59 mg/dL is considered anegative risk factor for CHD. Triglycerides 264 mg/dL (Abnormal) Range: 0-149 Cholesterol, Total 207 mg/dL (Abnormal) Range: 100-199 :31 CBC WITH MANUAL DIFF Comments: PATIENT WAS FASTINGPERFORMED BY: [employer] Xourpm2232 [facility] [id number] Information: [id number] (16516) Immature Grans (Abs) 0.0 {x10E3/uL} (Normal) Range: 0.0-0.1 Immature Granulocytes 0 % (Normal) Baso (Absolute) 0.0 {x10E3/uL} (Normal) Range: 0.0-0.2 Eos (Absolute) 0.1 {x10E3/uL} (Normal) Range: 0.0-0.4 Monocytes(Absolute) 0.4 {x10E3/uL} (Normal) Range: 0.1-0.9 Lymphs (Absolute) 1.3 {x10E3/uL} (Normal) Range: 0.7-3.1 Neutrophils (Absolute) 3.0 {x10E3/uL} (Normal) Range: 1.4-7.0 Basos 1 % (Normal) Eos 3 % (Normal) Monocytes 9 % (Normal) Lymphs 27 % (Normal) Neutrophils 60 % (Normal) Platelets 198 {x10E3/uL} (Normal) Range: 150-379 RDW 13.5 % (Normal) Range: 12.3-15.4 MCHC 34.7 g/dL (Normal) Range: 31.5-35.7 MCH 32.4 pg (Normal) Range: 26.6-33.0 MCV 94 fL (Normal) Range: 79-97 Hematocrit 41.5 % (Normal) Range: 34.0-46.6 Hemoglobin 14.4 g/dL (Normal) Range: 11.1-15.9 RBC 4.44 {x10E6/uL} (Normal) Range: 3.77-5.28 WBC 4.8 {x10E3/uL} (Normal) Range: 3.4-10.8 :31 TSH (46062) Comments: PATIENT WAS FASTINGPERFORMED BY: [employer] [facility] [id number] TSH 1.440 {uIU/mL} (Normal) Range: 0.450-4.500 :03 Metabolic Panel, Comments: recheck in 3 months; PATIENT WAS FASTINGPERFORMED BY: [employer].St. [facility] Medical CenterPlxfrn3073 [facility] [id number] Information: [id number] Comprehensive (52521) ALT (SGPT) 13 [iU]/L (Normal) Range: 0-32 AST (SGOT) 22 [iU]/L (Normal) Range: 0-40 Alkaline Phosphatase, S 78 [iU]/L (Normal) Range: 39-117 Bilirubin, Total 0.5 mg/dL (Normal) Range: 0.0-1.2 A/G Ratio 1.9 (Normal) Range: 1.1-2.5 Globulin, Total 2.3 g/dL (Normal) Range: 1.5-4.5 Albumin, Serum 4.3 g/dL (Normal) Range: 3.6-4.8 Protein, Total, Serum 6.6 g/dL (Normal) Range: 6.0-8.5 Calcium, Serum 9.5 mg/dL (Normal) Range: 8.6-10.2 Carbon Dioxide, Total 27 mmol/L (Normal) Range: 19-28 Chloride, Serum 104 mmol/L (Normal) Range: 97-108 Potassium, Serum 4.0 mmol/L (Normal) Range: 3.5-5.2 Sodium, Serum 142 mmol/L (Normal) Range: 134-144 BUN/Creatinine Ratio 22 (Normal) Range: 11-26 eGFR If Africn Am 78 mL/min/1.73 (Normal) eGFR If NonAfricn Am 68 mL/min/1.73 (Normal) Creatinine, Serum 0.88 mg/dL (Normal) Range: 0.57-1.00 BUN 19 mg/dL (Normal) Range: 8-27 Glucose, Serum 81 mg/dL (Normal) Range: 65-99 77-Gmp-73159:03 Lipid Panel (03484) Comments: recheck in 3 months; PATIENT WAS FASTINGPERFORMED BY: [facility] Folefq4992 [facility] [id number] LDL/HDL Ratio 1.4 {ratio_units} (Normal) Range: 0.0-3.2 LDL Cholesterol Calc 84 mg/dL (Normal) Range: 0-99 VLDL Cholesterol Jennifer 43 mg/dL (Abnormal) Range: 5-40 HDL Cholesterol 62 mg/dL (Normal) Comments: According to ATP-III Guidelines, HDL-C >59 mg/dL is considered anegative risk factor for CHD. Triglycerides 215 mg/dL (Abnormal) Range: 0-149 Cholesterol, Total 189 mg/dL (Normal) Range: 100-199 :44 Urinalysis, Office (20328) UA - BILIRUBIN Negative (Normal) UA - BLOOD Hemolyzed Trace (Normal) UA - GLUCOSE Negative (Normal) UA - KETONES Negative mg/dL (Normal) UA - LEUKOCYTE ESTERASE Negative (Normal) UA - NITRITE Negative (Normal) UA - PH 6.0 (Normal) Comments: 5.5 UA - PROTEIN Negative mg/dL (Normal) UA - SPECIFIC GRAVITY 1.010 (Normal) URINE UROBILINGN MARIA T TIMED Normal mg/dL (Normal) :15 CBC with manual diff Comments: PATIENT WAS FASTINGPERFORMED BY: PATRIA DreamFundeddesiree SilverioDccesl5027Casimiro RoblesFormerly [facility], [facility] [id number] Information: [id number] ([id number]) Immature Grans (Abs) 0.0 {x10E3/uL} (Normal) Range: 0.0-0.1 Baso (Absolute) 0.0 {x10E3/uL} (Normal) Range: 0.0-0.2 Immature Granulocytes 0 % (Normal) Range: 0-2 Eos (Absolute) 0.1 {x10E3/uL} (Normal) Range: 0.0-0.4 Monocytes(Absolute) 0.5 {x10E3/uL} (Normal) Range: 0.1-0.9 Lymphs (Absolute) 1.3 {x10E3/uL} (Normal) Range: 0.7-3.1 Neutrophils (Absolute) 3.2 {x10E3/uL} (Normal) Range: 1.4-7.0 Basos 0 % (Normal) Range: 0-3 Eos 2 % (Normal) Range: 0-5 Monocytes 9 % (Normal) Range: 4-12 Lymphs 25 % (Normal) Range: 14-46 Neutrophils 64 % (Normal) Range: 40-74 Platelets 198 {x10E3/uL} (Normal) Range: 155-379 RDW 14.2 % (Normal) Range: 12.3-15.4 MCHC 33.6 g/dL (Normal) Range: 31.5-35.7 MCH 29.9 pg (Normal) Range: 26.6-33.0 MCV 89 fL (Normal) Range: 79-97 Hematocrit 41.7 % (Normal) Range: 34.0-46.6 Hemoglobin 14.0 g/dL (Normal) Range: 11.1-15.9 RBC 4.68 {x10E6/uL} (Normal) Range: 3.77-5.28 WBC 5.1 {x10E3/uL} (Normal) Range: 3.4-10.8 :15 Ferritin ([id number]) Comments: PATIENT WAS FASTINGPERFORMED BY: CB Nelbee RoadDublin [place] [id number] Ferritin, Serum 43 ng/mL (Normal) Range: 15-150 :15 Lipid Panel ([id number]) Comments: PATIENT WAS FASTINGPERFORMED BY: [facility] [id number] LDL/HDL Ratio 2.3 {ratio_units} (Normal) Range: 0.0-3.2 LDL Cholesterol Calc 156 mg/dL (Abnormal) Range: 0-99 VLDL Cholesterol Jennifer 45 mg/dL (Abnormal) Range: 5-40 HDL Cholesterol 67 mg/dL (Normal) Comments: According to ATP-III Guidelines, HDL-C >59 mg/dL is considered anegative risk factor for CHD. Triglycerides 225 mg/dL (Abnormal) Range: 0-149 Cholesterol, Total 268 mg/dL (Abnormal) Range: 100-199 :15 Metabolic Panel, Comprehensive Comments: PATIENT WAS FASTINGPERFORMED BY: [facility] [id number] ([id number]) ALT (SGPT) 13 [iU]/L (Normal) Range: 0-32 AST (SGOT) 22 [iU]/L (Normal) Range: 0-40 Alkaline Phosphatase, S 97 [iU]/L (Normal) Range: 47-112 Bilirubin, Total 0.4 mg/dL (Normal) Range: 0.0-1.2 A/G Ratio 1.5 (Normal) Range: 1.1-2.5 Globulin, Total 2.6 g/dL (Normal) Range: 1.5-4.5 Albumin, Serum 4.0 g/dL (Normal) Range: 3.6-4.8 Protein, Total, Serum 6.6 g/dL (Normal) Range: 6.0-8.5 Calcium, Serum 9.5 mg/dL (Normal) Range: 8.6-10.2 Carbon Dioxide, Total 24 mmol/L (Normal) Range: 19-28 Chloride, Serum 104 mmol/L (Normal) Range: 97-108 Potassium, Serum 4.0 mmol/L (Normal) Range: 3.5-5.2 Sodium, Serum 141 mmol/L (Normal) Range: 134-144 BUN/Creatinine Ratio 22 (Normal) Range: 11-26 eGFR If Africn Am 99 mL/min/1.73 (Normal) eGFR If NonAfricn Am 85 mL/min/1.73 (Normal) Creatinine, Serum 0.73 mg/dL (Normal) Range: 0.57-1.00 BUN 16 mg/dL (Normal) Range: 8-27 Glucose, Serum 83 mg/dL (Normal) Range: 65-99 :15 CALCIFIDIOL (20964) VIT D 25 Comments: PATIENT WAS FASTINGPERFORMED BY: [facility] [id number] Vitamin D, 25-Hydroxy 32.6 ng/mL (Normal) Range: 30.0-100.0 Comments: Vitamin D deficiency has been defined by the [place] and an Endocrine Society practice guideline as alevel of serum 25-OH vitamin D less than 20 ng/mL (1,2).The Endocrine Society went on to further define vitamin Dinsufficiency as a level between 21 and 29 ng/mL (2).1. IOM ([place] [employer]). 2010. Dietary reference intakes for calcium and D. [place]: The National Academies Press.2. Joe MF, Carrie NC, Mellisa SALMON, et al. Evaluation, treatment, and prevention of vitamin D deficiency: an Endocrine Society clinical practice guideline. JCEM. 2010; 96(7):1911-30. :15 TSH (22193) Comments: PATIENT WAS FASTINGPERFORMED BY: [facility] [id number] TSH 1.050 {uIU/mL} (Normal) Range: 0.450-4.500 9-Myl-858686:30 BILAT SCRN DIGITAL & CAD Radiology Report See Note (Normal) Comments: MAMMOGRAPHY - BILATERAL SCREENING REASON FOR EXAM: Female, 66 years old. Routine annual screeningexamination. PERTINENT HISTORY: Grandmother with breast cancer. TECHNIQUE: Digital exa mination. M ediolateral oblique (MLO) andcraniocaudad (CC) views of both breasts were obtained. CAD: CAD wasperformed on this study. COMPARISON: Comparison is made with prior examinations dated 2009. FINDINGS:The breast composition is almost entirely fatty replaced. There are no dominant masses or suspicious calcifications. No other significant abnormalities are identified. There has be en nosignificant change since the prior study. IMPRESSION:Stable bilateral screening mammogram. Yearly follow-up recommended. (A) ASSESSMENT CATEGORY:BIRADS Category 2: Benign finding(s). A letter regarding these resultswill be sent to the patient by the facility within 30 days. Approximately 10% of breast cancers are not detected by mammography. Anormal mammogram should not delay biopsy of a cl inically suspiciousabnormality. Signed:Wayne Rabago M.D.June 18, 2012 at 12:43:13 PM [phone] Signed GP/GP If you are the referring physician and would like to consult with theradiologist who provided this interpretation, please contact Melody Underwood at [phone]. If this radiologist is unavailable, youwill be directed to another radiologist to assist. If you are a patient with a question regarding this report, pleasecontactyour referring physician directly. Professional Interpretation Provided By: [employer], Phone , These do cuments contain legally protected and confidential healthinformation intended only for the use of the individual or entity namedabove. If you are not the intended recipient, you are hereby notifiedthata ny disclosure, copying, distribution, or other use of these documents isstrictly prohibited. If you have received this information in error,pleasenotify the sender immediately and arrange for the return or destructionofthese documents. Dictated on 06/18/12 1030 by Aristides Rabago MDranscribed on 06/18/12 1248 by ITS IMPORTSign by Wayne Rabago MD on 06/18/12 1250 Sign by: Wayne Rabago MD 07-May-2012 DDIMQ 1.62 {FEUug/mL} Range: 0.22-0.48 11:21 (Abnormal) Comments: D-Dimer ELEVATED: Additional studies and clinicalassessments are indicated to conclude diagnosis of:Deep Vein Thrombosis (DVT) or Pulmonary Embolism (PE)CRITICAL VALUE REPEATED AND VERIFIED. CALLED TO Aquilino JARRETT05/07/12 LIZA ROSENTHAL.RESULTS READ BACK BY SONAM EDWARDS . 07-May-2012 K 3.7 mmol/L Range: 3.5-5.1 11:21 (Normal) 07-May-2012 MG 2.1 mg/dL Range: 1.8-2.4 11:21 (Normal) 09-Cit-66403:00 CHEST WITH CONTRAST Radiology Report See Note (Normal) Comments: PROCEDURE: CT CHEST WITH CONTRAST REASON FOR EXAM: Female, 66 years old. Elevated d-dimer, irregularheartbeat RADIATION DOSAGE (If Supplied By Facility): CTDIvol = ( 30.94 ) mGy, DLP=( 743.26 ) mGy cm TECHNIQUE: High resolution transaxial imaging was performed followingintravenous administration of 100 ml of Isovue 370 contrast material.Multiplanar coronal and sagittal images were reformatted. C OMPARISON: 01/11/10 chest x-ray. FINDINGS:Heterogeneously enlarged left thyroid lobe The lungs are normal. There is no demonstrated pleural abnormality. Normal heart and pericardium. Normal mediastinum . Normal hilar regions. Normal enhancement of the pulmonary arteries. Normal enhanced thoracic aorta and visualized great vessels. Normal osseous structures. Multiple liver cysts. IMPRESSION:No pulmona ry embolus.Heterogeneously enlarged left thyroid lobe. Signed:Moises Cronin D.O.May 07, 2012 at 8:20:03 PM [phone] Signed BE/BE If you are the referring physician and would like to consult with theradiologist who provided this interpretation, please contact Moises Cronin D.O. at [phone]. If this radiologist is unavailable, you will bedirected to another radiologist to assist. If you are a patient with a question regarding this report, pleasecontactyour referring physician directly. Professional Interpretation Provided By: [employer], Phone , Thes e documents contain legally protected and confidential healthinformation intended only for the use of the individual or entity namedabove. If you are not the intended recipient, you are hereby notifiedt hatany disclosure, copying, distribution, or other use of these documents isstrictly prohibited. If you have received this information in error,pleasenotify the sender immediately and arrange for the re turn or destructionofthese documents. Dictated on 05/07/121929 by Cindy Cronin MDianTranscribed on 05/07/122034 by ITS IMPORTSign by Moises Cronin MD on 05/07/122035 Sign by: Moises Cronin MD 39-Plv-643229:23 Hemoglobin Glyclated (HGB A1C) (28046) HEMOGLOBIN GLYCLATED (HGB A1C) 5.4 % (Normal) Range: 4.6 - 7.1 75-Oys-226687:32 MYOCARD PERF STRESS/REST MULT Radiology Report See Note (Normal) Comments: MYOCARDIAL PERFUSION SCAN TECHNIQUEThe patient was injected with 11.0 mCi of Tc99m Cardiolite andsubsequently rest SPECT Cardiolite nuclear imaging was obtained in thehorizontal long, vertical long and short axes views. The patientunderwent pharmacologic (Regadenoson) evaluation with a peak heart rateof 120 beats per minute (77% predicted maximum heart rate) with a peakblood pressure of 158/84 mmHg. The patient was injected with 32.0 mCi joWc69i Cardiolite and subsequently stress SPECT Cardiolite nuclear imagingwas obtained in the horizontal long, vertical long and short axes views.Gated Cardiolit e study at peak stress was obtained. INTERPRETATIONRest SPECT Cardiolite nuclear imaging demonstrates an area of diminishedtracer uptake in portions of the mid to distal anterior and anteroseptalsegment s, which appears to improve and/or normalize following stress.Following stress there appears to be relative uniform tracer uptake.There is end systolic thickening and brightening. The gated Cardiolites tudy demonstrates myocardial thickening and inward wall motion. Thereported LVEF is 72%. The aforementioned changes appear compatible withshifting soft tissue/breast attenuation being more prominent a t rest asopposed to stress. IMPRESSION1. Rest and stress SPECT Cardiolite nuclear imaging demonstratemyocardial perfusion changes appearing compatible with the effects ofshifting soft tissue/breast att enuation being more prominent at rest asopposed to stress with no myocardial perfusion changes appearingcompatible with stress induced myocardial ischemia or previous myocardialinjury/infarction.2. The gated Cardiolite study reports an LVEF of 72%. Dictated on 04/24/12 1316 by Gerald Bell MDTranscribed on 04/24/12 1432 by Benita CHRISTY by Ray GILL,Gerald on 04/24/12 1517 Sign by: Gerald Bell MD 37-Lrn-07278:36 Metabolic Panel, Basic Comments: re check 2 weeks; PATIENT NOT FASTINGPERFORMED BY: [employer] [employer] [place] [id number] Information: [id number] ([id number]) Calcium, Serum 9.8 mg/dL (Normal) Range: 8.6-10.2 Carbon Dioxide, Total 23 mmol/L (Normal) Range: 20-32 Chloride, Serum 101 mmol/L (Normal) Range: 97-108 Potassium, Serum 4.2 mmol/L (Normal) Range: 3.5-5.2 Sodium, Serum 141 mmol/L (Normal) Range: 134-144 BUN/Creatinine Ratio 21 (Normal) Range: 11-26 eGFR If Africn Am 81 mL/min/1.73 (Normal) Creatinine, Serum 0.86 mg/dL (Normal) Range: 0.57-1.00 eGFR If NonAfricn Am 71 mL/min/1.73 (Normal) BUN 18 mg/dL (Normal) Range: 8-27 Glucose, Serum 88 mg/dL (Normal) Range: 65-99 3-Ryp-484180:34 METABOLIC PANEL, COMPREHENSIVE Comments: PATIENT NOT FASTINGPERFORMED BY: [employer]6[address] [place] [facility]aceuticalM[facility] [id number] ([id number]) ALT (SGPT) 14 [iU]/L (Normal) Range: 0-40 AST (SGOT) 20 [iU]/L (Normal) Range: 0-40 Alkaline Phosphatase, S 98 [iU]/L (Normal) Range: 25-165 Bilirubin, Total 0.3 mg/dL (Normal) Range: 0.0-1.2 A/G Ratio 1.4 (Normal) Range: 1.1-2.5 Globulin, Total 2.8 g/dL (Normal) Range: 1.5-4.5 Albumin, Serum 3.8 g/dL (Normal) Range: 3.6-4.8 Protein, Total, Serum 6.6 g/dL (Normal) Range: 6.0-8.5 Calcium, Serum 9.3 mg/dL (Normal) Range: 8.6-10.2 Carbon Dioxide, Total 26 mmol/L (Normal) Range: 20-32 Chloride, Serum 102 mmol/L (Normal) Range: 97-108 Potassium, Serum 3.3 mmol/L (Abnormal) Range: 3.5-5.2 Comments: Client Requested Flag Sodium, Serum 141 mmol/L (Normal) Range: 134-144 BUN/Creatinine Ratio 25 (Normal) Range: 11-26 eGFR If Africn Am 106 mL/min/1.73 (Normal) eGFR If NonAfricn Am 92 mL/min/1.73 (Normal) Creatinine, Serum 0.67 mg/dL (Normal) Range: 0.57-1.00 BUN 17 mg/dL (Normal) Range: 8-27 Glucose, Serum 102 mg/dL (Abnormal) Range: 65-99 7-Ilt-951244:34 CBC WITH MANUAL DIFF Comments: PATIENT NOT FASTINGPERFORMED BY: [facility] Xlmrur5985 [facility] [id number] Information: [id number] ([id number]) Immature Grans (Abs) 0.0 {x10E3/uL} (Normal) Range: 0.0-0.1 Immature Granulocytes 0 % (Normal) Range: 0-2 Baso (Absolute) 0.0 {x10E3/uL} (Normal) Range: 0.0-0.2 Eos (Absolute) 0.1 {x10E3/uL} (Normal) Range: 0.0-0.4 Monocytes(Absolute) 0.4 {x10E3/uL} (Normal) Range: 0.1-1.0 Lymphs (Absolute) 1.3 {x10E3/uL} (Normal) Range: 0.7-4.5 Neutrophils (Absolute) 3.7 {x10E3/uL} (Normal) Range: 1.8-7.8 Basos 1 % (Normal) Range: 0-3 Eos 2 % (Normal) Range: 0-7 Monocytes 7 % (Normal) Range: 4-13 Lymphs 23 % (Normal) Range: 14-46 Neutrophils 67 % (Normal) Range: 40-74 Platelets 229 {x10E3/uL} (Normal) Range: 140-415 RDW 14.2 % (Normal) Range: 12.3-15.4 MCHC 33.9 g/dL (Normal) Range: 31.5-35.7 MCH 31.5 pg (Normal) Range: 26.6-33.0 MCV 93 fL (Normal) Range: 79-97 Hematocrit 39.5 % (Normal) Range: 34.0-46.6 Hemoglobin 13.4 g/dL (Normal) Range: 11.1-15.9 RBC 4.26 {x10E6/uL} (Normal) Range: 3.77-5.28 WBC 5.5 {x10E3/uL} (Normal) Range: 4.0-10.5 8-Oeq-539063:34 TSH ([id number]) Comments: PATIENT NOT FASTINGPERFORMED BY: LabCoSt. [facility] Medical CenterBuegep2598 [facility] [id number] TSH 1.040 {uIU/mL} (Normal) Range: 0.450-4.500 11-Apr-20129:22 Metabolic Panel, Basic Comments: PATIENT NOT FASTINGPERFORMED BY: LabCoSt. Francis Medical CenterSkomyj6562 [facility] [id number] Information: [id number] ([id number]) Calcium, Serum 9.3 mg/dL (Normal) Range: 8.6-10.2 Carbon Dioxide, Total 26 mmol/L (Normal) Range: 20-32 Chloride, Serum 104 mmol/L (Normal) Range: 97-108 Potassium, Serum 3.9 mmol/L (Normal) Range: 3.5-5.2 Sodium, Serum 141 mmol/L (Normal) Range: 134-144 BUN/Creatinine Ratio 18 (Normal) Range: 11-26 eGFR If Africn Am 93 mL/min/1.73 (Normal) eGFR If NonAfricn Am 81 mL/min/1.73 (Normal) Creatinine, Serum 0.77 mg/dL (Normal) Range: 0.57-1.00 BUN 14 mg/dL (Normal) Range: 8-27 Glucose, Serum 88 mg/dL (Normal) Range: 65-99 :08 TSH ([id number]) Comments: PATIENT NOT FASTINGPERFORMED BY: [facility] [id number] TSH 0.597 {uIU/mL} (Normal) Range: 0.450-4.500 :08 METABOLIC PANEL, COMPREHENSIVE Comments: PATIENT NOT FASTINGPERFORMED BY: [facility] [id number] ([id number]) ALT (SGPT) 16 [iU]/L (Normal) Range: 0-40 AST (SGOT) 23 [iU]/L (Normal) Range: 0-40 Alkaline Phosphatase, S 130 [iU]/L (Normal) Range: 25-165 Bilirubin, Total 0.5 mg/dL (Normal) Range: 0.0-1.2 A/G Ratio 1.4 (Normal) Range: 1.1-2.5 Globulin, Total 2.9 g/dL (Normal) Range: 1.5-4.5 Albumin, Serum 4.2 g/dL (Normal) Range: 3.6-4.8 Protein, Total, Serum 7.1 g/dL (Normal) Range: 6.0-8.5 Calcium, Serum 9.5 mg/dL (Normal) Range: 8.6-10.2 Carbon Dioxide, Total 24 mmol/L (Normal) Range: 20-32 Chloride, Serum 102 mmol/L (Normal) Range: 97-108 Potassium, Serum 3.5 mmol/L (Normal) Range: 3.5-5.2 Sodium, Serum 143 mmol/L (Normal) Range: 134-144 BUN/Creatinine Ratio 17 (Normal) Range: 11-26 eGFR If Africn Am 84 mL/min/1.73 (Normal) eGFR If NonAfricn Am 73 mL/min/1.73 (Normal) Creatinine, Serum 0.84 mg/dL (Normal) Range: 0.57-1.00 BUN 14 mg/dL (Normal) Range: 8-27 Glucose, Serum 110 mg/dL (Abnormal) Range: 65-99 :08 CBC WITH MANUAL DIFF Comments: PATIENT NOT FASTINGPERFORMED BY: [facility]armaCore[facility]6370 [facility] [id number] Information: [id number] ([id number]) Immature Grans (Abs) 0.0 {x10E3/uL} (Normal) Range: 0.0-0.1 Immature Granulocytes 0 % (Normal) Range: 0-2 Baso (Absolute) 0.0 {x10E3/uL} (Normal) Range: 0.0-0.2 Eos (Absolute) 0.2 {x10E3/uL} (Normal) Range: 0.0-0.4 Monocytes(Absolute) 0.5 {x10E3/uL} (Normal) Range: 0.1-1.0 Lymphs (Absolute) 1.0 {x10E3/uL} (Normal) Range: 0.7-4.5 Neutrophils (Absolute) 3.4 {x10E3/uL} (Normal) Range: 1.8-7.8 Basos 0 % (Normal) Range: 0-3 Eos 3 % (Normal) Range: 0-7 Monocytes 9 % (Normal) Range: 4-13 Lymphs 21 % (Normal) Range: 14-46 Neutrophils 67 % (Normal) Range: 40-74 Platelets 323 {x10E3/uL} (Normal) Range: 140-415 RDW 14.2 % (Normal) Range: 12.3-15.4 MCHC 33.8 g/dL (Normal) Range: 31.5-35.7 MCH 31.3 pg (Normal) Range: 26.6-33.0 MCV 93 fL (Normal) Range: 79-97 Hematocrit 38.8 % (Normal) Range: 34.0-46.6 Hemoglobin 13.1 g/dL (Normal) Range: 11.1-15.9 RBC 4.18 {x10E6/uL} (Normal) Range: 3.77-5.28 WBC 5.1 {x10E3/uL} (Normal) Range: 4.0-10.5 :32 Microscopic Examination Comments: PATIENT WAS FASTINGPERFORMED BY: [facility]6370 [facility] [id number] Bacteria None seen (Normal) Mucus Threads Present (Normal) Epithelial Cells (non renal) 0-10 {/hpf} (Normal) Range: 0 - 10 RBC 0-3 {/hpf} (Normal) Range: 0 - 3 WBC 0-5 {/hpf} (Normal) Range: 0 - 5 12-Aug-20118:37 Pathology Report Comments: PERFORMED BY: KWJESSICA [facility] Nbyz81665 [facility] [id number] BY: Beckie [facility] Hgzdhmkrn204 [facility] [id number] 2070Clinical Information: [id number] See MATER Comments: Material submitted: .BACKClinical history: .ATYPICAL MOLE WITH JAMIA CYST Note (Normal) Diagnosis:EPIDERMOID CYST..COMMENT:MARGINS FREE OF TUMOR.NCK08/16/2011Addendum: .MULTIPLE RECUTS WERE MADE INTO THE BLOCK AND A COMPOUND NEVUSWITH ARCHITECTURAL DISORDER AND MILD TO MODERATE CYTOLOGIC ATYPIAWAS FOUND..COMMENT:MARGINS FREE OF NEVUS CE LLS.LEELEE08/23/2011ddendum Electronically Signed by Wanda Reyes M.D., DermatopathologistElectronically signed: Whitney Reyes MD, DermatopathologistGross descript ion: .RECEIVED IN FORMALIN DESIGNATED BACK IS A ROTH SKIN ELLIPSEMEASURING 2.1 X 1.0 CM EXCISED TO A DEPTH OF 0.9 CM. THE SKINSURFACE CONTAINS A 0.8 X 0.6 X 0 .1 CM SLIGHTLY ELEVATED AREA. THEMARGINS ARE INKED BLACK. IT IS SERIALLY SECTIONED. CROSS SECTIONSREVEAL A YELLOW/ROTH AREA MEASURING 0.7 CM IN DIAMETER. ALL SEVENSECTIONS ARE SUBMITTED IN THREE CASSETTE S. CASSETTE A1 CONTAINSBOTH TIPS AND CASSETTES A2 AND A3 CONTAIN THE FIVE REMAININGSECTIONS.XEC/JASPathologist provided ICD-9:706.2, 216.5CPT .992353 :32 TSH ([id number]) Comments: PATIENT WAS FASTINGPERFORMED BY: [employer] [facility] [id number] TSH 1.170 {uIU/mL} (Normal) Range: 0.450-4.500 :32 URINALYSIS, W/ MICRO (80404) Comments: PATIENT WAS FASTINGPERFORMED BY: [employer]70 [facility] [id number] Microscopic Examination See below: (Normal) Nitrite, Urine Negative (Normal) Urobilinogen,Semi-Qn 0.2 mg/dL (Normal) Range: 0.0-1.9 Bilirubin Negative (Normal) Occult Blood Negative (Normal) Ketones Negative (Normal) Glucose Negative (Normal) Protein Negative (Normal) WBC Esterase 1+ (Abnormal) Appearance Clear (Normal) Urine-Color Yellow (Normal) pH 7.0 (Normal) Range: 5.0-7.5 Specific [place] 1.017 (Normal) Range: 1.005-1.030 :32 METABOLIC PANEL, COMPREHENSIVE Comments: PATIENT WAS FASTINGPERFORMED BY: [employer] Wyjxvn5947 [facility] [id number] ([id number]) ALT (SGPT) 14 [iU]/L (Normal) Range: 0-40 AST (SGOT) 22 [iU]/L (Normal) Range: 0-40 Alkaline Phosphatase, S 83 [iU]/L (Normal) Range: 25-165 Bilirubin, Total 0.5 mg/dL (Normal) Range: 0.0-1.2 A/G Ratio 1.5 (Normal) Range: 1.1-2.5 Globulin, Total 2.8 g/dL (Normal) Range: 1.5-4.5 Albumin, Serum 4.1 g/dL (Normal) Range: 3.6-4.8 Protein, Total, Serum 6.9 g/dL (Normal) Range: 6.0-8.5 Calcium, Serum 9.7 mg/dL (Normal) Range: 8.6-10.2 Carbon Dioxide, Total 25 mmol/L (Normal) Range: 20-32 Chloride, Serum 104 mmol/L (Normal) Range: 97-108 Potassium, Serum 4.0 mmol/L (Normal) Range: 3.5-5.2 Sodium, Serum 142 mmol/L (Normal) Range: 134-144 BUN/Creatinine Ratio 23 (Normal) Range: 11-26 eGFR If Africn Am 89 mL/min/1.73 (Normal) Comments: Note: A persistent eGFR <60 mL/min/1.73 m2 (3 months or more) mayindicate chronic kidney disease. An eGFR >59 mL/min/1.73 m2 with anelevated urine protein also may indicate chronic kidney disease.Calculated using CKD-EPI formula. eGFR If NonAfricn Am 77 mL/min/1.73 (Normal) Creatinine, Serum 0.80 mg/dL (Normal) Range: 0.57-1.00 BUN 18 mg/dL (Normal) Range: 8-27 Glucose, Serum 86 mg/dL (Normal) Range: 65-99 :32 LIPID PANEL (96641) Comments: PATIENT WAS FASTINGPERFORMED BY: [employer]70 [employer] [facility] [id number] LDL Cholesterol Calc 100 mg/dL (Abnormal) Range: 0-99 LDL/HDL Ratio 1.5 {ratio_units} (Normal) Range: 0.0-3.2 VLDL Cholesterol Jennifer 36 mg/dL (Normal) Range: 5-40 HDL Cholesterol 65 mg/dL (Normal) Comments: According to ATP-III Guidelines, HDL-C >59 mg/dL is considered anegative risk factor for CHD. Triglycerides 180 mg/dL (Abnormal) Range: 0-149 Cholesterol, Total 201 mg/dL (Abnormal) Range: 100-199 :32 CBC WITH MANUAL DIFF Comments: PATIENT WAS FASTINGPERFORMED BY: [employer]6[address] [employer] [facility] [id number] Information: [id number] ([id number]) Immature Grans (Abs) 0.0 {x10E3/uL} (Normal) Range: 0.0-0.1 Immature Granulocytes 0 % (Normal) Range: 0-2 Baso (Absolute) 0.0 {x10E3/uL} (Normal) Range: 0.0-0.2 Eos (Absolute) 0.1 {x10E3/uL} (Normal) Range: 0.0-0.4 Monocytes(Absolute) 0.4 {x10E3/uL} (Normal) Range: 0.1-1.0 Lymphs (Absolute) 1.3 {x10E3/uL} (Normal) Range: 0.7-4.5 Neutrophils (Absolute) 2.5 {x10E3/uL} (Normal) Range: 1.8-7.8 Basos 0 % (Normal) Range: 0-3 Eos 2 % (Normal) Range: 0-7 Monocytes 8 % (Normal) Range: 4-13 Lymphs 30 % (Normal) Range: 14-46 Neutrophils 60 % (Normal) Range: 40-74 Platelets 202 {x10E3/uL} (Normal) Range: 140-415 RDW 13.7 % (Normal) Range: 11.7-15.0 MCHC 33.9 g/dL (Normal) Range: 32.0-36.0 MCH 31.1 pg (Normal) Range: 27.0-34.0 MCV 92 fL (Normal) Range: 80-98 Hematocrit 40.1 % (Normal) Range: 34.0-44.0 Hemoglobin 13.6 g/dL (Normal) Range: 11.5-15.0 RBC 4.37 {x10E6/uL} (Normal) Range: 3.80-5.10 WBC 4.2 {x10E3/uL} (Normal) Range: 4.0-10.5 95-Wul-186612:31 Thin prep Pap Comments: Source.............Cervical;EndocervicalLMP / Prev Treat...QRK=[id number]. of containers..01 CYTYC Thin Prep VialPATIENT NOT FASTINGPERFORMED BY: [facility] [address] [id number] ([id number]) [id number] Information: [id number] Note: PAPSMR (Normal) Comments: The Pap smear is a screening test designed to aid in the detection ofpremalignant and malignant conditions of the uterine cervix. It is not adiagnostic procedure and should not be used as the sole mean s of detectingcervical cancer. Both false-positive and false-negative reports do occur. .This liquid based ThinPrep(R) pap test w as screened with theuse of an image guided system.The HPV DNA reflex criteria were not met with this specimen resulttherefore, no HPV testing was performed. . See Note . (Normal) DIAGNOSIS: SPRCS (Normal) Comments: NEGATIVE FOR INTRAEPITHELIAL LESION AND MALIGNANCY.CELLULAR CHANGES ASSOCIATED WITH ATROPHY ARE PRESENT.THIS SPECIMEN WAS RESCREENED PART OF OUR [employer] DEVELOPER PROGRAM.Satisfactory for e valuation. Endocervical component may not bedistinguished in cases of atrophy.Allie Villafuerte, Dietitian Helper ([facility])Parul Singh, Supervisory Dietitian Helper ([facility]) 21-Hhj-239424:27 KIDNEY Radiology Report See Note (Normal) Comments: PROCEDURE: RENAL ULTRASOUND - COMPLETE REASON FOR EXAM: Female, 65 years old. The patient has a history of arenal cyst. TECHNIQUE: Ultrasound evaluation of the bilateral kidneys was performedwith real-time ultrasonography and static grayscale imaging. COMPARISON: None. FINDINGS: RIGHT KIDNEY: Normal location of the right kidney which is normal insize.The right kidney measures 10.1 cm. There is a normal cortex of the rightkidney. There is a 7-mm by 17 mm x 7 mm cyst in the lower pole of theright kidney. There are no right renal calculi. There is no righthydronephrosis. DISTAL RIGHT URET ER: There is non-visualization of the distal rightureter. There is no demonstrated right ureterovesical junction calculus.There is a visualized right ureteral jet. LEFT KIDNEY: Normal location of the left kidney which is normal in size.The left kidney measures 10.9 cm. There is a normal cortex of the leftkidney. There is a 2 cm x 2.1 cm x 1.5 cm left parapelvic cyst.Thereare no left renal calc colin. There is no left hydronephrosis. DISTAL LEFT URETER: There is non-visualization of the distal leftureter.There is no demonstrated left ureterovesical junction calculus. There isavisualized left ureteral jet. BLADDER: There is a normal wall thickness of the distended urinarybladder. There is no demonstrated mass within the urinary bladder.Thereis no demonstrated bladder calculi. IMPRESSION:S mall bilateral renal cysts. Dictated on 07/04/11 0952 by Jose Miguel Rabago MDribed on 07/05/11 1104 by ITS IMPORTSign by Wayne Rabago MD on 07/05/11 1105 Sign by: Wayne Rabago MD 8-Jex-899575:26 BILAT SCRN DIGITAL & CAD Radiology Report See Note (Normal) Comments: MAMMOGRAPHY - BILATERAL SCREENING REASON FOR EXAM: Female, 65 years old. Routine annual screeningexamination. PERTINENT HISTORY: Grandmother with breast cancer. The patient has hadbila teral breast reduction. TECHNIQUE: Digital examination. Mediolateral oblique (MLO) andcraniocaudad (CC) views of both breasts were obtained. CAD: CAD wasperformed on this study. COMPARISON: Comparison is made with prior study dated October 14, 2009. FINDINGS:The breast composition is almost entirely fatty replaced. There are no masses or suspicious microcalcifications. Once again,calcifications are seen in the mid right breast. This most likely resentpost operative fat necrosis. There is also evidence of stablecalcifications in the retroareolar area of the left breast. No other significant abnormalities are identified. There has been nosignificant change since the prior study. IMPRESSION:Normal bilateral screening mammogram. One year follow-up recommended. (A) ASSESSMENT CATEGORY:BIRADS Category 2: Benign finding(s). A letter regarding these resultswill be sent to the patient by the facility within 30 days. Approximately 10% of breast cancers are not detected by mammography. Anormal mammogram s hould not delay biopsy of a clinically suspiciousabnormality. Dictated on 06/15/11 1449 by Jose Miguel Rabago MDribed on 06/15/11 1525 by ITS IMPORTSign by Wayne Rabago MD on 06/15/11 15 26 Sign by: Wayne Rabago MD :46 HEPATIC FUNCTION PANEL Comments: PATIENT WAS FASTINGPERFORMED BY: [facility]Core[facility] [id number] Information: [id number]; appt 06/30/11 ([id number]) ALT (SGPT) 12 [iU]/L (Normal) Range: 0-40 AST (SGOT) 19 [iU]/L (Normal) Range: 0-40 Alkaline Phosphatase, S 86 [iU]/L (Normal) Range: 25-165 Bilirubin, Direct 0.17 mg/dL (Normal) Range: 0.00-0.40 Bilirubin, Total 0.6 mg/dL (Normal) Range: 0.0-1.2 Albumin, Serum 4.5 g/dL (Normal) Range: 3.6-4.8 Protein, Total, Serum 6.8 g/dL (Normal) Range: 6.0-8.5 :46 LIPID PANEL ([id number]) Comments: PATIENT WAS FASTINGPERFORMED BY: DreamFundedSt. Francis Medical CenterLotykh0421 [facility] [id number] LDL/HDL Ratio 1.3 {ratio_units} Range: 0.0-3.2 (Normal) LDL Cholesterol Calc 97 mg/dL (Normal) Range: 0-99 VLDL Cholesterol Jennifer 21 mg/dL (Normal) Range: 5-40 HDL Cholesterol 74 mg/dL (Normal) Comments: According to ATP-III Guidelines, HDL-C >59 mg/dL is considered anegative risk factor for CHD. Triglycerides 105 mg/dL (Normal) Range: 0-149 Cholesterol, Total 192 mg/dL (Normal) Range: 100-199 25-Oct-2010 Amylase, Serum 63 U/L (Normal) Comments: PERFORMED BY: DreamFundedSt. Francis Medical CenterHgtlve4115 [facility] [id number] 10:29 Range: 31-124 15-Fcf-709125:29 Celiac Disease Comprehensive Comments: PERFORMED BY: [employer] Wrdlct0211 [facility] [id number] Immunoglobulin A, Qn, Serum 301 mg/dL (Normal) Range: 70-400 Endomysial Antibody IgA Negative (Normal) t-Transglutaminase (tTG) IgA <2 U/mL (Normal) Range: 0-3 Comments: Negative 0 - 3 Weak Positive 4 - 10 Positive >10 . Tissue Transglutaminase (tTG) has been identified as the endomysial antigen. Studies have demonstr- ated that endomysial IgA antibo dies have over 99% specificity for gluten sensitive enteropathy. t-Transglutaminase (tTG) IgG <2 U/mL (Normal) Range: 0-5 Comments: Negative 0 - 5 Weak Positive 6 - 9 Positive >9 Deamidated Gliadin Abs, IgG 4 {units} (Normal) Range: 0-19 Comments: Negative 0 - 19 Weak Positive 20 - 30 Moderate to Strong Positive >30 Deamidated Gliadin Abs, IgA 5 {units} (Normal) Range: 0-19 Comments: Negative 0 - 19 Weak Positive 20 - 30 Moderate to Strong Positive >30 :29 H pylori, IgM, IgG, IgA Ab Comments: PERFORMED BY: Spot[employer] Reporting TechnologiesUNC Health [id number] H.pylori, IgM ABS <0.80 {index} (Normal) Range: 0.00-0.79 Comments: Negative <0.80 Equivocal 0.80 - 1.19 Positive >1.19 . Current studies suggest that H. pylori IgM testing should be performed concomitantly with H. pylori IgA and/or IgG tests to support a diagnosis of Helicobacter pylori infection. . For research use only, not for use in clinical diagnostic procedures. H. pylori, IgA ABS 1.79 {index} (Abnormal) Range: 0.00-0.88 Comments: Negative <0.89 Equivocal 0.89 - 0.99 Positive >0.99 H. pylori IgG, Abs <0.9 U/mL (Normal) Range: 0.0-0.8 Comments: Negative <0.9 Indeterminate 0.9 - 1.0 Positive >1.0 :29 Hepatic Function Panel (7) Comments: PERFORMED BY: [employer] Reporting TechnologiesUNC Health [id number] Alkaline Phosphatase, S 99 [iU]/L (Normal) Range: 25-165 ALT (SGPT) 14 [iU]/L (Normal) Range: 0-40 AST (SGOT) 20 [iU]/L (Normal) Range: 0-40 Albumin, Serum 4.6 g/dL (Normal) Range: 3.6-4.8 Bilirubin, Direct 0.25 mg/dL Range: 0.00-0.40 (Normal) Bilirubin, Total 0.8 mg/dL (Normal) Range: 0.0-1.2 Protein, Total, Serum 7.4 g/dL (Normal) Range: 6.0-8.5 Lipase, Serum 37 U/L (Normal) Comments: PERFORMED BY: LabCorewell [facility] Hospital6[address] [facility] [id number] 0:29 Range: 0-59 45-Ftd-60275:00 DEXA BONE DENSITY STUDY () Radiology Report See Note (Normal) Comments: CLINICAL:Postmenopausal EXAMINATION:DUAL ENERGY X-RAY ABSORPTIOMETRY / DEXA. TECHNIQUE:Bone Density Measurements (BMD) of lumbar spine and bilateral hips wereobtained using a DoubleMap.. COMPARISON:July 24, 2007 FINDINGS: Lumbar Spine (L1-L4): g/cm2 (1.035) / T-score (-1.2) / Z-score (-0.3)Left Femur Total: g/cm2 (0.970) / T-score (-0.3) / Z-score (0.4)Right Femur Total: g/cm2 (0.900) / T-score (-0.9) / Z-score (-0.2) Additional Abnormal T-Scores: None. The BMD on the most recent examination were: Lumbar Spine (L2- L4): 0.972 g/cm2 which represents an impro vement of11.4%.Left Femur Neck: 0.997 g/cm2 which represents an improvement of 3.6%. IMPRESSION:The patient is considered osteopenic, as outlined above, according toWorldHealth Organization (WHO) crite maddy. Fracture risk is moderate. Reference Information:The T-score is the number of standard deviations above or below thestandard which is normal for young adults at their peak bone mineraldensity. The World Health Organization (WHO) interprets the T-scores asfollows: Above -1 Normal bone densityBetween -1 and -2.5 OsteopeniaEqual to / or below -2.5 Osteoporosis As a practical clinical guideline, osteopenia may be graded as follows:Mild -1 through -1.5Moderate -1.6 through -2.0Severe -2.1 through -2.4 The Z-score is the number of standard deviations above or below age -matchedcontrols. A Z-score of less than -1.5 would be considered abnormal. References:1. NIH Osteoporosis and Related Bone Diseases http://www.osteo.org2. International Society for Clinical Densitome try http://www.iscd.org3. National Osteoporosis Foundation http://www.nof.org Dictated on 09/09/10 1246 by Vipin MelendezTranscribed on 09/12/10350 by ITS IMPORTSign by Vipin Melendez on 09/12/10351 Sign by: Vipin Melendez 17-Wal-182517:54 PELVIC (NON ) Radiology Report See Note (Normal) Comments: CLINICAL:64-year-old female with abdominal pain. PELVIC ULTRASOUND - COMPLETE TECHNIQUE:Transabdominal and Transvaginal COMPARISON:Prior abdomen and pelvic CT exam of August 31, 2010. FINDINGS:Normal urinary bladder contour, without focal or diffuse wall thickening.There are no bladder calculi or intracystic masses. Atrophic uterine size, measuring 7 cm in maximum craniocaudal dimension.There are no myometrial masses. Nabothian cysts are present. Normal endometrial thickness measuring 1.2 mm. 4-mm anechoic structure/cystwithin the endometrium. Normal right ovary measuring 1.0 x 1.0 x 1.3 cm. The re are no cystic orsolid adnexal masses. Normal left ovary measuring 1.7 x 1.3 x 1.1 cm. There are no cystic orsolid adnexal masses. There is no free fluid within the pelvis. IMPRESSION:1. Atrophic ut erus with thin endometrium. 4-mm endometrial cyst.2. Nabothian cysts.3. Atrophic ovaries without cysts or masses.4. No free fluid. Dictated on 09/08/10 1411 by Sonja SrTranscribed on 2035 by ITS IMPORTSign by Sonja Sr on 09/10/10 2037 Sign by: Sonja Sr 65-Ytc-74432:00 TRANSVAGINAL WITH ARTERIAL CHARLES Radiology Report See Note (Normal) Comments: CLINICAL:64-year-old female with abdominal pain. PELVIC ULTRASOUND - COMPLETE TECHNIQUE:Transabdominal and Transvaginal COMPARISON:Prior abdomen and pelvic CT exam of August 31, 2010. FINDINGS:Normal urinary bladder contour, without focal or diffuse wall thickening.There are no bladder calculi or intracystic masses. Atrophic uterine size, measuring 7 cm in maximum craniocaudal dimension.There are no myometrial masses. Nabothian cysts are present. Normal endometrial thickness measuring 1.2 mm. 4-mm anechoic structure/cystwithin the endometrium. Normal right ovary measuring 1.0 x 1.0 x 1.3 cm. The re are no cystic orsolid adnexal masses. Normal left ovary measuring 1.7 x 1.3 x 1.1 cm. There are no cystic orsolid adnexal masses. There is no free fluid within the pelvis. IMPRESSION:1. Atrophic ut erus with thin endometrium. 4-mm endometrial cyst.2. Nabothian cysts.3. Atrophic ovaries without cysts or masses.4. No free fluid. Dictated on 09/08/10 1411 by Sonja SrTranscribed on 1400 by ITS IMPORTSign by Sonja Sr on 09/13/10 1401 Sign by: Sonja Sr 76-Ksd-052999:03 ABDOMEN/PELVIS WITH CONTRAST Radiology Report See Note (Normal) Comments: CLINICAL:Female, 64 years old. Left lower quadrant pain x 2 weeks. Priorcholecystectomy. History of controlled hypertension. CT ABDOMEN AND PELVIS WITH CONTRAST TECHNIQUE:Transaxial images were obt ained from the dome of the diaphragm to thesymphysis pubis with oral contrast. 100 ml of Isovue 300 contrastwasadministered. COMPARISON: None. FINDINGS:The visualized lung bases are unremarkable. Th ere are multiple hypodensities within the liver. They are seen inboththe right and left lobes of the liver. CT attenuation coefficient ofthehypodensities is within the range of fluid. The largest of thehypodensities is 3.9 cm in maximum dimension. These findings are mostlikely to represent benign liver cysts.. The gallbladder is surgicallyabsent. No dilatation of the intrahepatic or extrahepatic biliarysystem.Normal enhanced spleen. Normal pancreas. Normal bilateral adrenal glands. Normal size of the right kidney. There is a 6-mm hypodensity in therightkidney. This is too small to ideally c haracterized. This may representahyperdense cyst or small solid nodule. Follow-up can be obtained asclinically. There are no right renal calculi. There is no righthydronephrosis. Normal visualized right ureter. Normal size of the left kidney. There is no left renal mass. There arenoleft renal calculi. There is no left hydronephrosis. Normal visualizedleft ureter. Normal visualized stomach. N ormal small intestine. Normal colon. Theappendix is not identified.. There is no abnormal fluid collection orbiloma thickening identified on the right. No abnormality of the lefthilum is identified. There is no demonstrated peritoneal fluid. Normal abdominal aorta. Normal inferior vena cava. Normalretroperitoneum. Normal urinary bladder. There is no pelvic mass lesion orlymphadenopathy.There is no pelvic fluid.The uterus is seen and is unremarkable. The ovaries are not identified.Normal abdominal wall. There are degenerative changes of the spine. IMPRESSION:No acute abnormality is identifie d. Please see complete discussionabove. Dictated on 08/31/10 1240 by SADE FLOREZTranscribed on 08/31/10 1240 by MARTHA MAJANOKESSONSign by SADE FLOREZ on 09/01/10 0720 Sign by: SADE FLOREZ 43-Fqy-30073:38 CBCD ABSOLUTE NEUT 3.6 3/uL (Normal) Range: 2.0-7.7 BASO% 0.6 % (Normal) Range: 0-1 EO% 0.7 % (Normal) Range: 0-5 LY% 21.2 % (Normal) Range: 19-41 MONO% 8.9 % (Normal) Range: 0-10 MPV 8.6 fL (Normal) Range: 6.5-12.0 NEUT% 68.6 % (Normal) Range: 47-70 PLT 258 K/mm3 (Normal) Range: 150-450 RDW 13.3 % (Normal) Range: 11.6-14.6 MCH 32.9 pg (Abnormal) Range: 27.0-32.0 MCHC 35.4 g/dL (Normal) Range: 32-36 MCV 92.9 fL (Normal) Range: 81-99 HCT 41.9 % (Normal) Range: 37-47 HGB 14.8 g/dL (Normal) Range: 12.0-16.0 RBC 4.51 {M/mm3} (Normal) Range: 4.2-5.4 WBC 5.3 K/mm3 (Normal) Range: 4.4-11.0 :38 COMP METABOLIC CO2 28.0 mmol/L (Normal) Range: 21.0-32.0 GAP 12 (Normal) Range: 5-15 CL 101 mmol/L (Normal) Range: 98-107 K 3.9 mmol/L (Normal) Range: 3.5-5.1 NA 141 mmol/L (Normal) Range: 136-145 ALK P 101 U/L (Normal) Range: 50-136 ALT 21 U/L (Normal) Range: 12-78 T BILI 0.80 mg/dL (Normal) Range: 0.00-1.00 A/G 1.1 {RATIO} (Normal) Range: 0.9-2.4 AST 13 U/L (Abnormal) Range: 15-37 CA 10.3 mg/dL (Abnormal) Range: 8.5-10.1 ALB 4.1 g/dL (Normal) Range: 3.4-5.0 GLOB 3.9 g/dL (Normal) Range: 2.7-4.2 T PROT 8.0 g/dL (Normal) Range: 6.4-8.2 BUN/CRE 22.2 {RATIO} (Abnormal) Range: 10-20 EST GFR - AA 81 mL/min (Normal) EST GFR 67 mL/min (Normal) BUN 20 mg/dL (Abnormal) Range: 7-18 CREAT,SERUM 0.9 mg/dL (Normal) Range: 0.6-1.0 GLU 89 mg/dL (Normal) Range: 70-110 :38 ESR SED RATE 29 mm/h (Normal) Range: 0-30 :29 Urinalysis, Office (24517) UA - BILIRUBIN Small (Normal) UA - BLOOD Negative (Normal) UA - GLUCOSE Negative (Normal) UA - KETONES Small mg/dL (Normal) UA - LEUKOCYTE ESTERASE Small (Normal) UA - NITRITE Negative (Normal) UA - PH 6.0 (Normal) UA - PROTEIN 30 mg/dL (Normal) UA - SPECIFIC GRAVITY 1.020 (Normal) URINE UROBILINGN MARIA T TIMED Normal mg/dL (Normal) 3-Hfs-681202:19 Microscopic Examination Comments: PATIENT WAS FASTINGPERFORMED BY: Spotfav Reporting TechnologiesUNC Health [id number] Bacteria None seen (Normal) Mucus Threads Present (Normal) Epithelial Cells (non renal) 0-10 {/hpf} (Normal) Range: 0 - 10 RBC 0-3 {/hpf} (Normal) Range: 0 - 3 WBC 0-5 {/hpf} (Normal) Range: 0 - 5 :19 Lipid Panel (54716) Comments: PATIENT WAS FASTINGPERFORMED BY: [employer]6370 MEDArchonUNC Health [id number] LDL Cholesterol Calc 139 mg/dL (Abnormal) Range: 0-99 LDL/HDL Ratio 2.3 {ratio_units} (Normal) Range: 0.0-3.2 HDL Cholesterol 60 mg/dL (Normal) Comments: According to ATP-III Guidelines, HDL-C >59 mg/dL is considered anegative risk factor for CHD. VLDL Cholesterol Jennifer 39 mg/dL (Normal) Range: 5-40 Cholesterol, Total 238 mg/dL (Abnormal) Range: 100-199 Triglycerides 197 mg/dL (Abnormal) Range: 0-149 4-Uyz-230472:19 URINALYSIS (62814) Comments: PATIENT WAS FASTINGPERFORMED BY: [employer]70 [facility] [id number] Bilirubin Negative (Normal) Microscopic Examination See below: (Normal) Nitrite, Urine Negative (Normal) Occult Blood Negative (Normal) Urobilinogen,Semi-Qn 0.2 mg/dL (Normal) Range: 0.0-1.9 Glucose Negative (Normal) Ketones Negative (Normal) Protein Negative (Normal) WBC Esterase 1+ (Abnormal) Appearance Clear (Normal) pH 8.0 (Abnormal) Range: 5.0-7.5 Specific [place] 1.019 (Normal) Range: 1.005-1.030 Urine-Color Yellow (Normal) 3-Tlm-693837:19 Metabolic Panel, Comprehensive Comments: PATIENT WAS FASTINGPERFORMED BY: LabCoSt. Francis Medical CenterJsfzcz4005 [facility] [id number] (10799) ALT (SGPT) 12 [iU]/L (Normal) Range: 0-40 AST (SGOT) 20 [iU]/L (Normal) Range: 0-40 A/G Ratio 1.6 (Normal) Range: 1.1-2.5 Alkaline Phosphatase, S 92 [iU]/L (Normal) Range: 25-165 Bilirubin, Total 0.6 mg/dL (Normal) Range: 0.0-1.2 Globulin, Total 2.7 g/dL (Normal) Range: 1.5-4.5 Albumin, Serum 4.3 g/dL (Normal) Range: 3.6-4.8 Calcium, Serum 9.3 mg/dL (Normal) Range: 8.6-10.2 Protein, Total, Serum 7.0 g/dL (Normal) Range: 6.0-8.5 Carbon Dioxide, Total 26 mmol/L (Normal) Range: 20-32 Chloride, Serum 103 mmol/L (Normal) Range: 97-108 Potassium, Serum 4.2 mmol/L (Normal) Range: 3.5-5.2 Sodium, Serum 142 mmol/L (Normal) Range: 135-145 BUN/Creatinine Ratio 21 (Normal) Range: 8-27 eGFR >59 mL/min/1.73 (Normal) eGFR AfricanAmerican >59 mL/min/1.73 Comments: Note: Persistent reduction for 3 months or more in an eGFR<60 mL/min/1.73 m2 defines CKD. Patients with eGFR values>/=60 mL/min/1.73 m2 may also have CKD if evidence of persistentproteinuria is (Normal) present. Additional information may be found atwww.kdoqi.org. BUN 17 mg/dL (Normal) Range: 5-26 Creatinine, Serum 0.82 mg/dL (Normal) Range: 0.57-1.00 Glucose, Serum 93 mg/dL (Normal) Range: 65-99 :19 CBC with manual diff Comments: PATIENT WAS FASTINGPERFORMED BY: LabCoSt. Francis Medical CenterLsgbqt9137 Maynor CoreyUNC Health [id number] Information: [id number] (05450) Immature Grans (Abs) 0.0 {x10E3/uL} (Normal) Range: 0.0-0.1 Immature Granulocytes 0 % (Normal) Range: 0-1 Baso (Absolute) 0.0 {x10E3/uL} (Normal) Range: 0.0-0.2 Eos (Absolute) 0.1 {x10E3/uL} (Normal) Range: 0.0-0.4 Monocytes(Absolute) 0.4 {x10E3/uL} (Normal) Range: 0.1-1.0 Lymphs (Absolute) 1.3 {x10E3/uL} (Normal) Range: 0.7-4.5 Neutrophils (Absolute) 3.3 {x10E3/uL} (Normal) Range: 1.8-7.8 Basos 0 % (Normal) Range: 0-3 Eos 1 % (Normal) Range: 0-7 Lymphs 26 % (Normal) Range: 14-46 Monocytes 8 % (Normal) Range: 4-13 Neutrophils 65 % (Normal) Range: 40-74 Platelets 235 {x10E3/uL} (Normal) Range: 140-415 RDW 13.6 % (Normal) Range: 11.7-15.0 MCH 31.3 pg (Normal) Range: 27.0-34.0 MCHC 33.7 g/dL (Normal) Range: 32.0-36.0 MCV 93 fL (Normal) Range: 80-98 Hematocrit 41.8 % (Normal) Range: 34.0-44.0 Hemoglobin 14.1 g/dL (Normal) Range: 11.5-15.0 RBC 4.51 {x10E6/uL} (Normal) Range: 3.80-5.10 WBC 5.1 {x10E3/uL} (Normal) Range: 4.0-10.5 :19 TSH ([id number]) Comments: PATIENT WAS FASTINGPERFORMED BY: Flex PharmaCorewell [facility] Hospital6370 [facility] [id number] TSH 1.020 {uIU/mL} (Normal) Range: 0.450-4.500 3-Fue-630594:30 UNILAT LT DIAG DIGITAL & CAD Radiology Report See Note (Normal) Comments: Exam Number: [id number] MAMMOGRAPHY - UNILATERAL DIAGNOSTIC: BREAST INDICATION:Six month follow-up PERTINENT HISTORY:Grandmother with history of breast cancer.Patient has a personal history of breas t reduction surgeryTECHNIQUE:Digital examination. Mediolateral oblique (MLO) and craniocaudad(CC) views of the breast were obtained. CAD was performed on thisstudy. COMPARISON:October 29, 2008 and 2009 FINDINGS:The breast composition is almost entirely fatty replaced. There are no dominant or spiculated masses. The calcificationsidentified in the retroareolar area of the left breast on theexamination of October 14, 2009 are unchanged. These do most likelyrepresent dystrophic calcifications associated with the patient'sbreast surgery. No clusters of suspicious microcalcifications ar eseen. If there is no suspicious palpable abnormality, it issuggested the patient be scheduled for a bilateral screeningmammogram in 6 months to reestablish her normal screening schedule IMPRESSION:The re is no radiographic evidence of malignancy identified. Yearlyfollow-up is recommended. ASSESSMENT CATEGORY:Category 2: Benign finding(s) Approximately 10% of breast cancers are not detected by mammo graphy.A normal mammogram should not delay biopsy of a clinicallysuspicious abnormality.This addendum is being created for the purpose of attaching a ResultCode to this exam.ADDENDUM: [id number] BI/MUDDL Reported By: SADE FLOREZ M.D. 13-Jcb-213169:53 Microscopic Examination Comments: PATIENT WAS FASTINGPERFORMED BY: [facility] [id number] Bacteria Few (Normal) Mucus Threads Present (Normal) Epithelial Cells (non renal) 0-10 {/hpf} (Normal) Range: 0 - 10 RBC 0-3 {/hpf} (Normal) Range: 0 - 3 WBC 6-10 {/hpf} (Abnormal) Range: 0 - 5 7-Ksi-195788:36 BILAT DIAG DIGITAL & CAD Radiology Report See Note (Normal) Comments: Exam Number: [id number] MAMMOGRAM, BILATERAL DIAGNOSTIC DIGITAL AND CAD HISTORYBilateral 6-month followup. Full field digital images were obtained in mediolateral oblique andcraniocaudal proj ections. CA D images were reviewed. The current study is compared to the examinations of July, October 29, 2008, November 06, 2008 and May 04, 2009. There is mild alteration in the architecture of t he breasts compatiblewith the history of breast reduction surgery. Calcifications seen inthe mid right breast on the examination of May 04, 2009, areunchanged. Small parenchymal densities seen in t he upper outerquadrant of the breast on the same study are unchanged. On the left,there are now calcifications in the retroareolar area of the breastwhich were not seen previously. These were most lik shane torepresenting dystrophic calcifications associated with the surgicalprocedure. There is no new mass or area of architectural distortionseen on either side. IMPRESSION1. The appearance of the righ t breast is unchanged.2. There are new calcifications on the left. These are most likelybenign dystrophic calcifications related to previous surgery. Sincethese have not been seen previously, a left 6-month followup mammogramis recommended to be sure they are stable. FINAL ASSESSMENTProbably benign. BIRADS Category 3. A letter regarding these results has been sent to the patient. This interpretati on was rendered by a radiologist certified under theMammography Quality Standards Act of 1992 (MQSA). The mammograms werealso examined with computer-aided detection software ([employer] Reported By: SADE FLOREZ M.D. 86-Jux-885671:32 UNILAT RT DIAG DIGITAL & CAD Radiology Report See Note (Normal) Comments: Exam Number: [id number] MAMMOGRAM, UNILATERAL RIGHT DIAGNOSTIC DIGITAL AND CAD HISTORY6-month followup, abnormal mammogram. TECHNIQUE Full field digital images were obtained in mediolateral oblique and craniocaudal projections. True lateral and magnificication spot viewsin right craniocaudal and right mediolateral oblique projections werealso obtained. CAD images were reviewed. The current study is compared to the examinations of July, October 29, 2008, and November 06, 2008. Prior to theexamination of 2008, the patient underwent a breast reductionsurgery. FINDINGSOn the examinatio n of October 29, 2008, asymmetric densities wereidentified in the outer mid right breast. These densities are stable and most likely represent postoperative scar. On October 29, 2008, there are a ve ry small number of calcificationsidentified in the retroareolar area of the breast. On the examinationof May 04, 2009, there is significant increase in the number ofcalcifications located just above and lateral to the nipple. Thesecalcifications are fairly large and coarse. These findings are mostlikely to represent dystrophic calcifications related to the previoussurgical procedure. Because th cheryl calcification are new, a right6-month followup mammogram is recommended. It is suggested that abilateral examination be performed at that time since it would be thenormal time for the screening exa mination of the left breast. IMPRESSIONThere is significant increase in the number of calcifications on theright, compared to the previous examinations. The calcifications arefairly coarse and dense and are likely to represent dystrophiccalcifications related to surgery. For further evaluation, a right6-month followup mammogram is recommended. It is suggested that abilateral study be obtained at that time since that would be thenormal time for the screening examination of the left breast. FINAL ASSESSMENTProbably benign. BIRADS Category 3. A letter regarding these results has been sent to the patient. This interpretation was rendered by a radiologist certified under theMammography Quality Standards Act of 1992 (MQSA). The mammograms werealso examined with computer-aided detection softw are ([employer] Reported By: SADE FLOREZ M.D. 35-Gyf-889119:53 T4, FREE (THYROXINE) ([id number]) Comments: PATIENT WAS FASTINGPERFORMED BY: [facility] PharmaLee[facility] Gtvznu1896 [facility] [id number] T4,Free(Direct) 0.93 ng/dL (Normal) Range: 0.82-1.77 12-Xbz-024999:53 T3, FREE (TRIDOTHYRONINE) (06325) Comments: PATIENT WAS FASTINGPERFORMED BY: [facility]armaCorewell [facility]6370 [facility] [id number] Triiodothyronine,Free,Serum 2.7 pg/mL (Normal) Range: 2.0-4.4 :53 TSH (65051) Comments: PATIENT WAS FASTINGPERFORMED BY: [facility] [id number] TSH 0.687 {uIU/mL} (Normal) Range: 0.450-4.500 :53 METABOLIC PANEL, COMPREHENSIVE Comments: PATIENT WAS FASTINGPERFORMED BY: LabCorewell [facility]6370 [facility] [id number] (35704) Alkaline Phosphatase, S 88 [iU]/L (Normal) Range: 25-165 ALT (SGPT) 13 [iU]/L (Normal) Range: 0-40 AST (SGOT) 21 [iU]/L (Normal) Range: 0-40 A/G Ratio 1.6 (Normal) Range: 1.1-2.5 Albumin, Serum 4.1 g/dL (Normal) Range: 3.6-4.8 Bilirubin, Total 0.6 mg/dL (Normal) Range: 0.0-1.2 Globulin, Total 2.5 g/dL (Normal) Range: 1.5-4.5 Protein, Total, Serum 6.6 g/dL (Normal) Range: 6.0-8.5 Calcium, Serum 9.3 mg/dL (Normal) Range: 8.6-10.2 Carbon Dioxide, Total 26 mmol/L (Normal) Range: 20-32 Chloride, Serum 102 mmol/L (Normal) Range: 97-108 Potassium, Serum 3.7 mmol/L (Normal) Range: 3.5-5.2 Sodium, Serum 141 mmol/L (Normal) Range: 135-145 BUN/Creatinine Ratio 21 (Normal) Range: 8-27 eGFR AfricanAmerican >59 mL/min/1.73 Comments: Note: Persistent reduction for 3 months or more in an eGFR<60 mL/min/1.73 m2 defines CKD. Patients with eGFR values>/=60 mL/min/1.73 m2 may also have CKD if evidence of persistentproteinuria is (Normal) present. Additional information may be found [email or web address]. Creatinine, Serum 0.85 mg/dL (Normal) Range: 0.57-1.00 eGFR >59 mL/min/1.73 (Normal) BUN 18 mg/dL (Normal) Range: 5-26 Glucose, Serum 86 mg/dL (Normal) Range: 65-99 [id number]-Rqf-[id number]:53 URINALYSIS W/O MICRO ([id number]) Comments: PATIENT WAS FASTINGPERFORMED BY: [facility] [id number] Microscopic Examination See below: (Normal) Nitrite, Urine Negative (Normal) Urobilinogen,Semi-Qn 0.2 mg/dL (Normal) Range: 0.0-1.9 Bilirubin Negative (Normal) Glucose Negative (Normal) Ketones Negative (Normal) Occult Blood Negative (Normal) Protein Trace (Normal) Appearance Clear (Normal) pH 8.0 (Abnormal) Range: 5.0-7.5 Specific [place] 1.025 (Normal) Range: 1.005-1.030 Urine-Color Yellow (Normal) WBC Esterase Trace (Abnormal) [id number]-[id number] LIPID PANEL (46057) Comments: PATIENT WAS FASTINGPERFORMED BY: [employer] [facility] [id number] LDL/HDL Ratio 1.3 {ratio_units} (Normal) Range: 0.0-3.2 HDL Cholesterol 63 mg/dL (Normal) Comments: According to ATP-III Guidelines, HDL-C >59 mg/dL is considered anegative risk factor for CHD. LDL Cholesterol Calc 82 mg/dL (Normal) Range: 0-99 VLDL Cholesterol Jennifer 39 mg/dL (Normal) Range: 5-40 Cholesterol, Total 184 mg/dL (Normal) Range: 100-199 Triglycerides 193 mg/dL (Abnormal) Range: 0-149 80-Ply-882288:53 CBC WITH MANUAL DIFF Comments: PATIENT WAS FASTINGPERFORMED BY: [employer] Xpedrn6408 [facility] [id number] Information: [id number] ([id number]) Immature Grans (Abs) 0.0 {x10E3/uL} (Normal) Range: 0.0-0.1 Immature Granulocytes 0 % (Normal) Range: 0-1 Baso (Absolute) 0.0 {x10E3/uL} (Normal) Range: 0.0-0.2 Eos (Absolute) 0.1 {x10E3/uL} (Normal) Range: 0.0-0.4 Lymphs (Absolute) 1.1 {x10E3/uL} (Normal) Range: 0.7-4.5 Monocytes(Absolute) 0.5 {x10E3/uL} (Normal) Range: 0.1-1.0 Basos 0 % (Normal) Range: 0-3 Eos 1 % (Normal) Range: 0-7 Neutrophils (Absolute) 3.1 {x10E3/uL} (Normal) Range: 1.8-7.8 Lymphs 24 % (Normal) Range: 14-46 Monocytes 10 % (Normal) Range: 4-13 Neutrophils 65 % (Normal) Range: 40-74 Platelets 204 {x10E3/uL} (Normal) Range: 140-415 MCH 32.2 pg (Normal) Range: 27.0-34.0 MCHC 35.8 g/dL (Normal) Range: 32.0-36.0 RDW 13.3 % (Normal) Range: 11.7-15.0 Hematocrit 38.5 % (Normal) Range: 34.0-44.0 Hemoglobin 13.8 g/dL (Normal) Range: 11.5-15.0 MCV 90 fL (Normal) Range: 80-98 RBC 4.29 {x10E6/uL} (Normal) Range: 3.80-5.10 WBC 4.7 {x10E3/uL} (Normal) Range: 4.0-10.5 [id number]-[id number]:07 Hepatic Function Panel (7) Comments: PATIENT WAS FASTINGPERFORMED BY: [facility]CoSt[facility] CenterBjmotl8548 [facility] [id number] Albumin, Serum 4.2 g/dL (Normal) Range: 3.6-4.8 Alkaline Phosphatase, S 95 [iU]/L (Normal) Range: 25-165 ALT (SGPT) 13 [iU]/L (Normal) Range: 0-40 AST (SGOT) 19 [iU]/L (Normal) Range: 0-40 Bilirubin, Direct 0.12 mg/dL (Normal) Range: 0.00-0.40 Bilirubin, Total 0.4 mg/dL (Normal) Range: 0.1-1.2 Protein, Total, Serum 6.8 g/dL (Normal) Range: 6.0-8.5 7-Rva-[id number]:07 Lipid Panel With LDL/HDL Comments: PATIENT WAS FASTINGPERFORMED BY: [facility] [address]ld[address] [place] [id number] Ratio Cholesterol, Total 195 mg/dL (Normal) Range: 100-199 HDL Cholesterol 58 mg/dL (Normal) Comments: According to ATP-III Guidelines, HDL-C >59 mg/dL is considered anegative risk factor for CHD. LDL Cholesterol Calc 98 mg/dL (Normal) Range: 0-99 LDL/HDL Ratio 1.7 {ratio_units} (Normal) Range: 0.0-3.2 Triglycerides 196 mg/dL (Abnormal) Range: 0-149 VLDL Cholesterol Jennifer 39 mg/dL (Normal) Range: 5-40 [id number]-Vpm-[id number]:26 UNILAT RT DIAG DIGITAL & CAD Radiology Report See Note (Normal) Comments: Exam Number: [id number] MAMMOGRAM, UNILATERAL RIGHT DIAGNOSTIC DIGITAL AND CAD HISTORYDensities. Full field digital images of the right breast were obtained in truelateral, roll craniocaud al and spot mediolateral oblique andcraniocaudal views. The current study is compared to the examinations of October. The areas of asymmetric parenchymal density seen in the outer midright breast on the examination of October 29, 2008, do notdemonstrate the appearance of a focal mass on the additional views. The areas of density most likely represent asymmetric distribution ofnormal structures. Ther e are also a few calcifications in the sameregion which are fairly coarse and most likely benign. For furtherevaluation of these findings, if there is suspicious palpableabnormality, a followup right mammogram in 6 months is recommended. IMPRESSIONThere are small asymmetric densities and a few calcifications in theretroareolar area of the right breast. If there is no suspiciouspalpable abnormality, followup right mammogram in 6 months isrecommended. FINAL ASSESSMENTProbably benign. BIRADS Category 3. A letter regarding these results has been sent to the patient. This interpretation was rendered by a radiologist certified under theMammography Quality Standards Act of 1992 (MQSA). The mammograms werealso examined with computer-aided detection software ([employer], [employer] Reported By: SADE FLOREZ M.D. 90-Kqq-[id number]:43 Thin prep Pap Comments: Source.............Cervical;EndocervicalLMP / Prev Treat...IOD=[id number]. of containers..01 CYTYC Thin Prep VialPATIENT NOT FASTINGClinical Information: ADD [id number] ([id number]) PERFORMED BY: [facility] [place] [id number] . . (Normal) DIAGNOSIS: SPRCS (Normal) Comments: NEGATIVE FOR INTRAEPITHELIAL LESION AND MALIGNANCY.CELLULAR CHANGES ASSOCIATED WITH ATROPHY ARE PRESENT.THIS SPECIMEN WAS RESCREENED PART OF OUR [employer] DEVELOPER PROGRAM.Satisfactory for e valuation. Endocervical and/or squamous metaplasticcells (endocervical component) are present.Aubree Coe, Dietitian Helper (ASCP)Patricia Maria, Supervisory Dietitian Helper (ASCP) Note: PAPSMR (Normal) Comments: The Pap smear is a screening test designed to aid in the detection ofpremalignant and malignant conditions of the uterine cervix. It is not adiagnostic procedure and should not be used as the sole mean s of detectingcervical cancer. Both false-positive and false-negative reports do occur. .The HPV DNA reflex criteria were not met with this specimen resulttherefore, no HPV testing was performed. . :27 BILAT SCRN DIGITAL & CAD Radiology Report See Note (Normal) Comments: Exam Number: [id number] MAMMOGRAM, BILATERAL SCREENING DIGITAL AND CAD HISTORYRoutine screening. Full field digital images were obtained in mediolateral oblique andcraniocaudal projections. CAD images w ere reviewed. The current study is compared to the examinations of August,,and July,. A small metal marker is in place on a mole, which projects on theleft. There has been a significan t change in the appearance of the breastsdue to an interval breast reduction surgery. There is no skinthickening or retraction, architectural distortion, or cluster ofsuspicious microcalcifications. Th ere are areas of asymmetricparenchymal density not seen previously. These are most prominentlyseen in the upper outer quadrant of the right breast. These densitiesare most likely to represent postoper ative change. For furtherevaluation, a roll craniocaudal and spot compression views of theasymmetric densities seen just above and lateral to the plane of thenipple of the right breast are recommended. A bilateral 6-monthfollowup is also suggested. IMPRESSION1. There is diffuse change in the appearance of the breasts, compatible with a history of breast reduction surgery. 2. There are 2 appa rently focal densities seen in the outer right breast, just at or above the plane of the nipple. These are most likely to represent postoperative change. Additional views are recommended to b e sure there is no mass at this location. FINAL ASSESSMENTNeed additional imaging evaluation. BIRADS Category 0. A letter regarding these results has been sent to the patient. This interpretation was r endered by a radiologist certified under theMammography Quality Standards Act of 1992 (MQSA). The mammograms werealso examined with computer-aided detection software (ImageTaoTaoSou, [employer].). Reported By: SADE FLOREZ M.D. 59-Aku-[id number]:03 TSH ([id number]) Comments: PATIENT WAS FASTINGPERFORMED BY: [facility]FundedSt. [facility] CenterUqkfsw0521 [facility] [id number] TSH 1.126 {uIU/mL} (Normal) Range: 0.450-4.500 18-Grm-508433:03 MICROALBUMIN: CREATININE RATIO Comments: PATIENT WAS FASTINGPERFORMED BY: DreamFundedSt. [facility] CenterFyjzgj3604 [facility] [id number] ([id number]) AND (99478) Microalb/Creat Ratio <.7 {ug/mg_creat} (Normal) Range: 0.0-30.0 Creatinine, Urine 151.7 mg/dL (Normal) Range: 15.0-278.0 Microalbum.,U,Random <1.0 ug/mL (Normal) Range: 0.0-17.0 35-Xfx-169372:03 METABOLIC PANEL, COMPREHENSIVE Comments: PATIENT WAS FASTINGPERFORMED BY: DreamFundedSt. [facility] Medical CenterIreurx4321 [facility] [id number] (09089) A/G Ratio 1.4 (Normal) Range: 1.1-2.5 Albumin, Serum 4.3 g/dL (Normal) Range: 3.6-4.8 Alkaline Phosphatase, S 96 [iU]/L (Normal) Range: 25-165 ALT (SGPT) 11 [iU]/L (Normal) Range: 0-40 AST (SGOT) 19 [iU]/L (Normal) Range: 0-40 Bilirubin, Total 0.5 mg/dL (Normal) Range: 0.1-1.2 BUN 21 mg/dL (Normal) Range: 5-26 BUN/Creatinine Ratio 23 (Normal) Range: 8-27 Calcium, Serum 10.2 mg/dL (Normal) Range: 8.5-10.6 Carbon Dioxide, Total 26 mmol/L (Normal) Range: 20-32 Chloride, Serum 102 mmol/L (Normal) Range: 97-108 Creatinine, Serum 0.90 mg/dL (Normal) Range: 0.57-1.00 Globulin, Total 3.1 g/dL (Normal) Range: 1.5-4.5 Glom Filt Rate, Est >59 mL/min/1.73 (Normal) Glucose, Serum 90 mg/dL (Normal) Range: 65-99 If -Finnish >59 mL/min/1.73 Comments: Note: Persistent reduction for 3 months or more in an eGFR<60 mL/min/1.73 m2 defines CKD. Patients with eGFR values>/=60 mL/min/1.73 m2 may also have CKD if evidence of persistentproteinur ia is (Normal) present. Additional information may be found [email or web address]. Potassium, Serum 4.0 mmol/L (Normal) Range: 3.5-5.2 Protein, Total, Serum 7.4 g/dL (Normal) Range: 6.0-8.5 Sodium, Serum 141 mmol/L (Normal) Range: 135-145 62-Maa-615861:03 LIPID PANEL (65468) Comments: PATIENT WAS FASTINGPERFORMED BY: [facility] [id number] [facility] [id number] Cholesterol, Total 259 mg/dL (Abnormal) Range: 100-199 Comment SPRCS (Normal) Comments: If initial LDL-cholesterol result is >100 mg/dL, assess forrisk factors. HDL Cholesterol 62 mg/dL (Normal) Comments: According to ATP-III Guidelines, HDL-C >59 mg/dL is considered anegative risk factor for CHD. LDL Cholesterol Calc 157 mg/dL (Abnormal) Range: 0-99 LDL/HDL Ratio 2.5 {ratio_units} (Normal) Range: 0.0-3.2 Triglycerides 202 mg/dL (Abnormal) Range: 0-149 VLDL Cholesterol Jennifer 40 mg/dL (Normal) Range: 5-40 01-Tps-322023:03 CBC WITH MANUAL DIFF (00570) Comments: PATIENT WAS FASTINGClinical Information: ADD DRAW FEE [id number] ADD J [id number] PERFORMED BY: LabCoSt. [facility] Medical CenterFotjay1657 [facility] [id number] Baso (Absolute) 0.0 {x10E3/uL} (Normal) Range: 0.0-0.2 Basos 1 % (Normal) Range: 0-3 Eos 2 % (Normal) Range: 0-7 Eos (Absolute) 0.1 {x10E3/uL} (Normal) Range: 0.0-0.4 Hematocrit 40.4 % (Normal) Range: 34.0-44.0 Hemoglobin 13.9 g/dL (Normal) Range: 11.5-15.0 Lymphs 24 % (Normal) Range: 14-46 Lymphs (Absolute) 1.1 {x10E3/uL} (Normal) Range: 0.7-4.5 MCH 31.3 pg (Normal) Range: 27.0-34.0 MCHC 34.5 g/dL (Normal) Range: 32.0-36.0 MCV 91 fL (Normal) Range: 80-98 Monocytes 10 % (Normal) Range: 4-13 Monocytes(Absolute) 0.5 {x10E3/uL} (Normal) Range: 0.1-1.0 Neutrophils 63 % (Normal) Range: 40-74 Neutrophils (Absolute) 2.8 {x10E3/uL} (Normal) Range: 1.8-7.8 Platelets 228 {x10E3/uL} (Normal) Range: 140-415 RBC 4.45 {x10E6/uL} (Normal) Range: 3.80-5.10 RDW 14.0 % (Normal) Range: 11.7-15.0 WBC 4.5 {x10E3/uL} (Normal) Range: 4.0-10.5 :49 DEXA BONE DENSITY STUDY () Radiology Report See Note (Normal) Comments: Exam Number: [id number] BONE DENSITOMETRY HISTORYScreening for osteoporosis. TECHNIQUE Bone densitometry of the lumbar spine and left hip was performed. Thebest criteria for evaluation of osteoporo sis is the T-value whichrepresents the comparison of the patient's bone mass to an expectedpeak bone mass. For most patients, the mean T-value of L1 through L4and the T-value of the total left hip are most useful. FINDINGSIn this patient, the mean T-value of L1 through L4 is -2.2 which is inthe range of osteopenia. Digital lateral view for evaluation ofvertebral deformity only demonstrates no obvio us compressionfractures. The T-value of the left femoral neck is -0.2 which is normal. The T-value of the total left hip is -0.3 which is normal. IMPRESSIONThere is osteopenia of the lumbar spine. Bone densitometry of thetotal left hip is within normal limits. Reported By: SADE FLOREZ M.D. :37 COMP METABOLIC A/G 1.1 {RATIO} (Normal) Range: 0.9-2.4 ALB 3.8 g/dL (Normal) Range: 3.4-5.0 ALK P 82 U/L (Normal) Range: 50-136 ALT 30 [iU]/L (Normal) Range: 30-65 AST 16 U/L (Normal) Range: 15-37 BUN 21 mg/dL (Abnormal) Range: 7-18 BUN/CRE 23.3 {RATIO} (Abnormal) Range: 10-20 CA 9.5 mg/dL (Normal) Range: 8.5-10.1 CL 102 mmol/L (Normal) Range: 98-107 CO2 28.8 mmol/L (Normal) Range: 21.0-32.0 Comments: Please Note Reference Interval Change CREAT,SERUM 0.9 mg/dL (Normal) Range: 0.6-1.0 GAP 8 (Normal) Range: 5-15 GLOB 3.5 g/dL (Normal) Range: 2.7-4.2 Comments: Please Note Reference Interval Change GLU 84 mg/dL (Normal) Range: 70-110 K 3.5 mmol/L (Normal) Range: 3.5-5.1 NA 139 mmol/L (Normal) Range: 136-145 T BILI 0.44 mg/dL (Normal) Range: 0.00-1.00 T PROT 7.3 g/dL (Normal) Range: 6.4-8.2 :37 D BILI 0.08 mg/dL (Normal) Range: 0.00-0.30 :37 LIPID CHOL 210 mg/dL (Abnormal) Comments: <200 mg/dL Desirable 200-240 mg/dL Borderline >240 mg/dL High Risk HDL 63 mg/dL (Normal) Comments: Reference Range HDL <40 mg/dL Low HDL Cholesterol HDL >or= 60 mg/dL High HDL Cholesterol LDL 118 mg/dL (Normal) Range: 0-130 TRIG 146 mg/dL (Normal) Comments: Serum Triglycerides Reference Interval Normal <150 mg/dL Borderline high 150 - 199 mg/dL High 200 - 499 mg/dL Very High > or = 500 mg/dL VLDL 29 mg/dL (Normal) Range: 5-40 :37 TSH 0.76 {uIU/mL} (Normal) Range: 0.34-4.82 :58 HIP, MIN 2 VIEWS ([place]) Radiology Report See Note (Normal) Comments: Exam Number: [id number] AP AND LATERAL RIGHT HIP Being done for pain. There is moderate to marked eburnation of the superior articulatingaspect of the right hip. There is mild narrowing. No fracture is identified. There are few cystic changes noted in the acetabulum. Articular surface of the femur appears normal. No fractures are seen.Soft tissues are unremarkable. IMPRESSIONMild to moderate degener ative changes. Further followup, possibly anMR scan would be more advantageous as well as clinical correlation. AP AND LATERAL LEFT HIP Being done for pain. There is a mirror image of the opposite with moderate eburnation andminimal narrowing. There is spur formation in the inferior aspect ofthe acetabulum. No fracture or subluxation is noted. There is spurformation in the superior aspect of the p roximal femur. Soft tissuesare unremarkable. IMPRESSIONDegenerative changes. Reported By: GERALD MANDEL M.D. :58 HIP, MIN 2 VIEWS ([place]) Radiology Report See Note (Normal) Comments: Exam Number: [id number] AP AND LATERAL RIGHT HIP Being done for pain. There is moderate to marked eburnation of the superior articulatingaspect of the right hip. There is mild narrowing. No fracture is identified. There are few cystic changes noted in the acetabulum. Articular surface of the femur appears normal. No fractures are seen.Soft tissues are unremarkable. IMPRESSIONMild to moderate degener ative changes. Further followup, possibly anMR scan would be more advantageous as well as clinical correlation. AP AND LATERAL LEFT HIP Being done for pain. There is a mirror image of the opposite with moderate eburnation andminimal narrowing. There is spur formation in the inferior aspect ofthe acetabulum. No fracture or subluxation is noted. There is spurformation in the superior aspect of the p roximal femur. Soft tissuesare unremarkable. IMPRESSIONDegenerative changes. Reported By: GERALD MANDEL M.D. :10 BMP Comments: Precautions*: NOT APPLICABLE BUN 17 mg/dL (Normal) Range: 7-18 BUN/CRE 17.0 {RATIO} (Normal) Range: 10-20 CA 8.7 mg/dL (Normal) Range: 8.5-10.1 CL 106 mmol/L (Normal) Range: 98-107 CO2 29.4 mmol/L (Abnormal) Range: 22.0-29.0 CREAT,SERUM 1.0 mg/dL (Normal) Range: 0.6-1.0 GAP 5 (Normal) Range: 5-15 GLU 93 mg/dL (Normal) Range: 70-110 K 3.8 mmol/L (Normal) Range: 3.5-5.1 NA 140 mmol/L (Normal) Range: 136-145 :10 CBC Comments: Precautions*: NOT APPLICABLE HCT 34.8 % (Abnormal) Range: 37-47 HGB 12.1 g/dL (Normal) Range: 12.0-16.0 MCH 31.5 pg (Normal) Range: 27.0-32.0 MCHC 34.8 g/dL (Normal) Range: 32-36 MCV 90.6 fL (Normal) Range: 81-99 PLT 247 K/mm3 (Normal) Range: 150-450 RBC 3.84 {M/mm3} (Abnormal) Range: 4.2-5.4 RDW 13.1 % (Normal) Range: 11.6-14.6 WBC 5.7 K/mm3 (Normal) Range: 4.4-11.0 :10 LIPID Comments: Precautions*: NOT APPLICABLE CHOL 189 mg/dL (Normal) Comments: <200 mg/dL Desirable 200-240 mg/dL Borderline >240 mg/dL High Risk HDL 60 mg/dL (Normal) Comments: Reference Range HDL <40 mg/dL Low HDL Cholesterol HDL >or= 60 mg/dL High HDL Cholesterol LDL 110 mg/dL (Normal) Range: 0-130 TRIG 96 mg/dL (Normal) Comments: Serum Triglycerides Reference Interval Normal <150 mg/dL Borderline high 150 - 199 mg/dL High 200 - 499 mg/dL Very High > or = 500 mg/dL VLDL 19 mg/dL (Normal) Range: 5-40 :10 MG 2.0 mg/dL (Normal) Comments: Precautions*: NOT APPLICABLE Range: 1.5-2.2 :10 PHOS 3.2 mg/dL (Normal) Comments: Precautions*: NOT APPLICABLE Range: 2.5-4.9 :10 PRO TIME Comments: Precautions*: NOT APPLICABLE INR 1.0 (Normal) PROTIME 12.7 s (Normal) Range: 11.7-13.3 :10 PTT 33.8 s (Normal) Comments: Precautions*: NOT APPLICABLE Range: 24.6-36.6 :18 CPK TOTAL 66 U/L (Normal) Comments: Precautions*: NOT APPLICABLEINDICATE CK '1', '2', '3', OR 'R' FOR RANDOM: 3 Range: 21-215 :18 CPKMB < 0.5 ng/mL (Normal) Comments: Precautions*: NOT APPLICABLEINDICATE CK '1', '2', '3', OR 'R' FOR RANDOM: 3 Range: 0.0-5.0 Comments: CK-MB and RI Interpretation MB Relative Index Non-AMI <or= 5 NA Indeterminate > 5 <or= 4 AMI > 5 > 4 :18 TROPONIN-I 0.06 ng/mL (Normal) Comments: Precautions*: NOT APPLICABLEINDICATE CK '1', '2', '3', OR 'R' FOR RANDOM: 3 Comments: TROPONIN-I EXPECTED VALUES < 0.50 NEGATIVE 0.50 - 1.49 INDETERMINANT > OR = 1.50 SUGGEST MA :05 CPK TOTAL 58 U/L (Normal) Comments: Precautions*: NOT APPLICABLEINDICATE CK '1', '2', '3', OR 'R' FOR RANDOM: 2 Range: 21-215 :05 CPKMB 0.6 ng/mL (Normal) Comments: Precautions*: NOT APPLICABLEINDICATE CK '1', '2', '3', OR 'R' FOR RANDOM: 2 Range: 0.0-5.0 Comments: CK-MB and RI Interpretation MB Relative Index Non-AMI <or= 5 NA Indeterminate > 5 <or= 4 AMI > 5 > 4 :05 TROPONIN-I < 0.04 ng/mL (Normal) Comments: Precautions*: NOT APPLICABLEINDICATE CK '1', '2', '3', OR 'R' FOR RANDOM: 2 Comments: TROPONIN-I EXPECTED VALUES < 0.50 NEGATIVE 0.50 - 1.49 INDETERMINANT > OR = 1.50 SUGGEST MA :40 TROPONIN-I < 0.04 ng/mL (Normal) Comments: Precautions*: NOT APPLICABLE Comments: TROPONIN-I EXPECTED VALUES < 0.50 NEGATIVE 0.50 - 1.49 INDETERMINANT > OR = 1.50 SUGGEST MA :07 MICHAEL 62 U/L (Normal) Comments: COMMENTS: BED 8Precautions*: NOT APPLICABLE Range: 25-115 :07 BMP Comments: COMMENTS: BED 8Precautions*: NOT APPLICABLE BUN 22 mg/dL (Abnormal) Range: 7-18 BUN/CRE 22.0 {RATIO} (Abnormal) Range: 10-20 CA 9.7 mg/dL (Normal) Range: 8.5-10.1 CL 104 mmol/L (Normal) Range: 98-107 CO2 26.2 mmol/L (Normal) Range: 22.0-29.0 CREAT,SERUM 1.0 mg/dL (Normal) Range: 0.6-1.0 GAP 9 (Normal) Range: 5-15 GLU 118 mg/dL (Abnormal) Range: 70-110 Comments: Fasting Glucose result from 110 to <126 mg/dL suggests IMPAIRED HOMEOSTASIS per A.D.A. criteria. K 3.3 mmol/L (Abnormal) Range: 3.5-5.1 NA 139 mmol/L (Normal) Range: 136-145 :07 CBCD Comments: COMMENTS: Preutions*: NOT APPLICABLE BASO% 0.2 % (Normal) Range: 0-1 EO% 0.2 % (Normal) Range: 0-5 HCT 38.3 % (Normal) Range: 37-47 HGB 13.3 g/dL (Normal) Range: 12.0-16.0 LY% 10.8 % (Abnormal) Range: 19-41 MCH 31.4 pg (Normal) Range: 27.0-32.0 MCHC 34.8 g/dL (Normal) Range: 32-36 MCV 90.4 fL (Normal) Range: 81-99 MONO% 6.2 % (Normal) Range: 0-10 MPV 8.2 fL (Normal) Range: 6.5-12.0 NEUT% 82.6 % (Abnormal) Range: 47-70 PLT 280 K/mm3 (Normal) Range: 150-450 RBC 4.24 {M/mm3} (Normal) Range: 4.2-5.4 RDW 13.2 % (Normal) Range: 11.6-14.6 WBC 6.7 K/mm3 (Normal) Range: 4.4-11.0 : LIPASE 277 U/L (Normal) Comments: COMMENTS: Precautions*: NOT APPLICABLE Range: 114-286 :07 LIVER Comments: COMMENTS: Preutions*: NOT APPLICABLE ALB 3.7 g/dL (Normal) Range: 3.4-5.0 ALK P 86 U/L (Normal) Range: 50-136 ALT 31 [iU]/L (Normal) Range: 30-65 AST 14 U/L (Abnormal) Range: 15-37 D BILI 0.09 mg/dL (Normal) Range: 0.00-0.30 T BILI 0.39 mg/dL (Normal) Range: 0.00-1.00 T PROT 7.5 g/dL (Normal) Range: 6.4-8.2 :07 ,SERUM Comments: COMMENTS: BED 8Precautions*: NOT APPLICABLE HCGSQUAL SeeNote m[iU]/mL (Normal) Comments: Result: NEGATIVE :07 TROPONIN-I < 0.04 ng/mL (Normal) Comments: COMMENTS: BED 8Precautions*: NOT APPLICABLE Comments: TROPONIN-I EXPECTED VALUES < 0.50 NEGATIVE 0.50 - 1.49 INDETERMINANT > OR = 1.50 SUGGEST MA :33 COMP METABOLIC A/G 1.1 {RATIO} (Normal) Range: 0.9-2.4 ALB 3.9 g/dL (Normal) Range: 3.4-5.0 ALK P 82 U/L (Normal) Range: 50-136 ALT 34 [iU]/L (Normal) Range: 30-65 AST 18 U/L (Normal) Range: 15-37 BUN 16 mg/dL (Normal) Range: 7-18 BUN/CRE 14.5 {RATIO} (Normal) Range: 10-20 CA 9.2 mg/dL (Normal) Range: 8.5-10.1 CL 103 mmol/L (Normal) Range: 98-107 CO2 29.1 mmol/L (Abnormal) Range: 22.0-29.0 CREAT,SERUM 1.1 mg/dL (Abnormal) Range: 0.6-1.0 GAP 9 (Normal) Range: 5-15 GLOB 3.4 g/dL (Normal) Range: 2.3-3.5 GLU 88 mg/dL (Normal) Range: 70-110 K 3.5 mmol/L (Normal) Range: 3.5-5.1 NA 141 mmol/L (Normal) Range: 136-145 T BILI 0.51 mg/dL (Normal) Range: 0.00-1.00 T PROT 7.3 g/dL (Normal) Range: 6.4-8.2 :33 PFLIP CHOL 238 mg/dL (Abnormal) Comments: <200 mg/dL Desirable 200-240 mg/dL Borderline >240 mg/dL High Risk HDL 57 mg/dL (Normal) Comments: Reference Range HDL <40 mg/dL Low HDL Cholesterol HDL >or= 60 mg/dL High HDL Cholesterol LDL 155 mg/dL (Abnormal) Range: 0-130 TRIG 128 mg/dL (Normal) Comments: Serum Triglycerides Reference Interval Normal <150 mg/dL Borderline high 150 - 199 mg/dL High 200 - 499 mg/dL Very High > or = 500 mg/dL VLDL 26 mg/dL (Normal) Range: 5-40 :33 TSH 0.72 {uIU/mL} (Normal) Range: 0.34-4.82 :38 K 3.8 mmol/L (Normal) Range: 3.5-5.1 :45 TISS/FLUID P-BX/CY (Normal) Comments: OPERATION CT guided bx PRE-OPERATIVE DIAGNOSIS Mass on left at base of neck TISSUE SUBMITTED A- BX core x 2, B- FNA: CB, 6 pap, 6 imprints MICROSCOPIC DIAGNOSIS A. Neck mass: Negative for malignan cy. See Comment. COMMENT The specimen is evaluated at the time of FNA for adequacy. A - The specimen consists of thyroid parenchymal tissue. The mass may represent residual colloid nodule. Clinical correlation is necessary. Please also make reference to patient's previous specimen left thyroid lobectomy and isthumsectomy from 11/06/02 performed at [place], [place],([id number] [id number]) with a diagnosis of thyroid lobectomy with multinodular goiter. No evidence of malignancy. CYTOLOGY STUDY B - The specimen consists of benign follicular cells. Malignant cells are not identif ied. GROSS DESCRIPTION A - Received in formalin labeled with patient name and number and designated neck mass are multiple minute fragments of roth soft tissue measuring in aggregate 0.2 x 0.1 x les s than 0.1 cm. The specimen is totally submitted in one cassette. CYTOLOGY GROSS B - Received is 0.1 ml of bloody fluid designated CT guided biopsy. Six imprints and 6 paps are made from the subm itted fluid and the rest is added to formalin for cell block preparation. Submitted for cytology study. / SJ:derik 07/19/06 TC:5 REPORT SIGNED: JACQUELINE YOO 07/20/06:25 CBC Comments: PRE-OP BLOOD WORK HCT 41.0 % (Normal) Range: 37-47 HGB 13.9 g/dL (Normal) Range: 12.0-16.0 MCH 30.8 pg (Normal) Range: 27.0-32.0 MCHC 34.0 g/dL (Normal) Range: 32-36 MCV 90.5 fL (Normal) Range: 81-99 PLT 300 K/mm3 (Normal) Range: 150-450 RBC 4.53 {M/mm3} (Normal) Range: 4.2-5.4 RDW 13.6 % (Normal) Range: 11.6-14.6 WBC 6.4 K/mm3 (Normal) Range: 4.4-11.0 :25 PRO TIME Comments: PRE-OP BLOOD WORK INR 1.0 (Normal) PROTIME 12.0 s (Normal) Range: 11.7-13.3 :25 PTT 33.8 s (Normal) Comments: PRE-OP BLOOD WORK Range: 24.6-36.6 :27 K 3.4 mmol/L (Abnormal) Range: 3.5-5.1 :27 MG 2.1 mg/dL (Normal) Range: 1.5-2.2 :27 TSH 0.62 {uIU/mL} (Normal) Range: 0.34-4.82 Plan of Care Name Dates Details Instructions Annual Medicare Phyiscal WITHOUT abnormal findings (Renamed from Encounter for general adult medical examination without abnormal findings) : Follow up in 6 months Indication: Annual Medicare Phyiscal WITHOUT abnormal findings (Renamed from Encounter for general adult medical examination without abnormal findings) Annual Medicare Phyiscal WITHOUT abnormal findings (Renamed from Encounter for general adult medical examination without abnormal findings) : fall reduction handout Indication: Annual Medicare Phyiscal WITHOUT abnormal findings (Renamed from Encounter for general adult medical examination without abnormal findings) Annual Medicare Phyiscal WITHOUT abnormal findings (Renamed from Encounter for general adult medical examination without abnormal findings) : elderly packet given Indication: Annual Medicare Phyiscal WITHOUT abnormal findings (Renamed from Encounter for general adult medical examination without abnormal findings) Annual Medicare Phyiscal WITHOUT abnormal findings (Renamed from Encounter for general adult medical examination without abnormal findings) : advance planning information Indication: Annual Medicare Phyiscal WITHOUT abnormal findings (Renamed from Encounter for general adult medical examination without abnormal findings) Annual Medicare Phyiscal WITHOUT abnormal findings (Renamed from Encounter for general adult medical examination without abnormal findings) : *Weight Loss Discussion Indication: Annual Medicare Phyiscal WITHOUT abnormal findings (Renamed from Encounter for general adult medical examination without abnormal findings) Nonsmoker : Eprescribed prescriptions (G8553) Indication: Nonsmoker BMI 35.0-35.9,adult : Follow up after lab work completed Indication: BMI 35.0-35.9,adult Nonsmoker : Eprescribed prescriptions (G8553) Indication: Nonsmoker Sore throat : Follow up if no improvement or if symptoms worsen Indication: Sore throat Sore throat : *URI Treatment Indication: Sore throat Sore throat : *URI Symptoms Indication: Sore throat Sinusitis, acute : *Antibiotic Usage Education - Female Indication: Sinusitis, acute Sinusitis, acute : Eprescribed prescriptions (G8553) Indication: Sinusitis, acute Sore throat : Follow up if no improvement or if symptoms worsen Indication: Sore throat Upper respiratory infection, viral : Sore Throat *: upper respiratory infection Indication: Upper respiratory infection, viral BMI 35.0-35.9,adult : Eprescribed prescriptions (G8553) Indication: BMI 35.0-35.9,adult Hypertension : Reviewed Lab Indication: Hypertension Atrial fibrillation : Reviewed [facility] Letter Indication: Atrial fibrillation Atrial fibrillation : Reviewed Diagnostic Tests Indication: Atrial fibrillation Atrial fibrillation : Reviewed Lab Indication: Atrial fibrillation Mixed Hyperlipidemia : Reviewed Lab Indication: Mixed Hyperlipidemia Hypertension : Reviewed Lab Indication: Hypertension Hypertension : Eprescribed prescriptions (G8553) Indication: Hypertension BMI 34.0-34.9,adult : Eprescribed prescriptions (G8553) Indication: BMI 34.0-34.9,adult Itching with irritation : Follow up if no improvement or if symptoms worsen Indication: Itching with irritation Irritated nevus of face : Shave Biopsy with Epi Indication: Irritated nevus of face Irritated nevus of face : Follow up in 2 weeks to review labs make apt for mole removal Indication: Irritated nevus of face BMI 34.0-34.9,adult : Follow up in 3 months Indication: BMI 34.0-34.9,adult BMI 34.0-34.9,adult : Diet, Exercise, and Wt loss Indication: BMI 34.0-34.9,adult Abdominal bloating : Follow up - Make appt after diagnostic tests Indication: Abdominal bloating Abdominal bloating : Reviewed Diagnostic Tests Indication: Abdominal bloating Abdominal pain : Reviewed Lab Indication: Abdominal pain Abdominal pain, acute, epigastric : Celiac Disease and the Gluten-Free Diet: diet Indication: Abdominal pain, acute, epigastric Flank pain : Follow up - Make appt after diagnostic tests Indication: Flank pain Encounter for screening for malignant neoplasm of colon (Renamed from Special screening for malignant neoplasms, colon) : *Colon Cancer Screening Indication: Encounter for screening for malignant neoplasm of colon (Renamed from Special screening for malignant neoplasms, colon) Acute pharyngitis : Eprescribed prescriptions (G8553) Indication: Acute pharyngitis Need for prophylactic vaccination and inoculation against influenza : Flu (Influenza) *: flu shot Indication: Need for prophylactic vaccination and inoculation against influenza Atrial fibrillation : Reviewed Lab Indication: Atrial fibrillation Atrial fibrillation : Reviewed Diagnostic Tests Indication: Atrial fibrillation Atrial fibrillation : Heart Palpitations *: fast heartbeat Indication: Atrial fibrillation Other specified disorders of liver : Reviewed Diagnostic Tests Indication: Other specified disorders of liver Hypertension : BP MONITORING - SELF Indication: Hypertension Palpitations : Reviewed Lab Indication: Palpitations Hypokalemia : Reviewed Lab Indication: Hypokalemia Hyperglyceridemia : Continue Current Prescription(s) Indication: Hyperglyceridemia Hyperglyceridemia : Reviewed Lab Indication: Hyperglyceridemia Palpitations : Reviewed Diagnostic Tests Indication: Palpitations Hypothyroidism : Reviewed Lab Indication: Hypothyroidism Chest pain : Follow up - Make appt after diagnostic tests Indication: Chest pain Palpitations : *palpitation discusssion Indication: Palpitations Hypertension : Follow up in 2 weeks--rouhgly Indication: Hypertension Hypertension : BP MONITORING - SELF Indication: Hypertension Tremor : Reviewed Lab Indication: Tremor Tremor : Follow up in 2 weeks Indication: Tremor Neoplasm of uncertain behavior of skin : Biopsy with Epi Indication: Neoplasm of uncertain behavior of skin WWV (Renamed from WWV) : *Well Female Maintenance (KF) Indication: WWV (Renamed from WWV) WWV . (Renamed from WWV) : Pap/Pelvic/Bimanual/Rectal/Breast Exam was done. Indication: WWV V73.21 (Renamed from [facility]) Generalized anxiety disorder : FOLLOW UP IN 3 WEEKS Indication: Generalized anxiety disorder INFECTION, BACTERIAL D/T HELICOBACTER PYLORI : Reviewed Lab Indication: INFECTION, BACTERIAL D/T HELICOBACTER PYLORI INFECTION, BACTERIAL D/T HELICOBACTER PYLORI : Helicobacter Pylori *: h. pylori infection Indication: INFECTION, BACTERIAL D/T HELICOBACTER PYLORI Generalized anxiety disorder : FOLLOW UP IN 2 WEEKS Indication: Generalized anxiety disorder Abdominal pain, acute, left upper quadrant : Reviewed [facility] Letter Indication: Abdominal pain, acute, left upper quadrant Abdominal pain, acute, left upper quadrant : Reviewed Lab Indication: Abdominal pain, acute, left upper quadrant Abdominal pain, acute, left upper quadrant : Reviewed Diagnostic Tests Indication: Abdominal pain, acute, left upper quadrant Hypercalcemia : Reviewed Lab Indication: Hypercalcemia Hypercalcemia : Reviewed Diagnostic Tests Indication: Hypercalcemia WWV V73.21 (Renamed from [facility]) : Shingles Vaccine Education 2005 Indication: WWV V73.21 (Renamed from [place]-ValueV) WWV V73.21 (Renamed from CO-ValueV) : Well Female Maintenance (KF) Indication: WWV V73.21 (Renamed from WWV) WWV V73.21 (Renamed from CO-ValueV) : Pap/Pelvic/Bimanual/Rectal/Breast Exam was done. Indication: WWV V73.21 (Renamed from [facility]) Hyperglyceridemia : FOLLOW UP IN 3 MONTHS Indication: Hyperglyceridemia Planned Observations FECAL OCCULT- Tubes sent home ([id number])Indication: Encounter for screening for malignant neoplasm of colon (Renamed from Special screening for malignant neoplasms, colon) On: 97-Npy-822198:31 Request URINE ANTHONY CULTURE-MARIA T COL COUNT ([id number])Indication: Abdominal pain, acute, generalized On: 28-Phl-02336:44 Request Metabolic Panel, Comprehensive ([id number])Indication: Mixed Hyperlipidemia On: :30 Request Comments: recheck in 3 months Lipid Panel ([id number])Indication: Mixed Hyperlipidemia On: :30 Request Comments: recheck in 3 months LIPID PANEL (63402)Indication: Hyperglyceridemia On: 02-Ugx-831749:18 Request HEPATIC FUNCTION PANEL (15249)Indication: Hyperglyceridemia On: 12-Cfj-968879:18 Request Potassium Serum (68934)Indication: Atrial fibrillation On: 22-Bim-754233:53 Request D-Dimer (60213)Indication: Atrial fibrillation On: 58-Hnk-507737:46 Request Magnesium (36041)Indication: Atrial fibrillation On: 11-Pwo-040179:45 Request LIPID PANEL ([id number])Indication: Hyperglyceridemia On: :45 Request HEPATIC FUNCTION PANEL (94383)Indication: Hyperglyceridemia On: :45 Request TSH ([id number])Indication: Hypothyroidism On: :55 Request URINALYSIS, W/ MICRO (16292)Indication: Hypertension On: :55 Request METABOLIC PANEL, COMPREHENSIVE (87541)Indication: Hypertension On: :55 Request LIPID PANEL (44395)Indication: Hypertension On: :55 Request CBC WITH MANUAL DIFF ([id number])Indication: Hypertension On: :54 Request Celiac Disease Comphrehensive Profile (09412)Indication: Abdominal pain, acute, left upper quadrant On: :21 Request H. PYLORI ANALYSIS UREASE ACTIVITY ([id number])Indication: Hypercalcemia On: :20 Request LIPASE (06055)Indication: Abdominal pain, acute, left upper quadrant On: :19 Request AMYLASE ([id number])Indication: Abdominal pain, acute, left upper quadrant On: :18 Request HEPATIC FUNCTION PANEL ([id number])Indication: Abdominal pain, acute, left upper quadrant On: :18 Request Metabolic Panel, Comprehensive (54824)Indication: Abdominal pain, acute, generalized On: :30 Request Sed Rate Erythrocyte (12706)Indication: Abdominal pain, acute, generalized On: :30 Request CBC, Platelets & Auto Diff (01798)Indication: Abdominal pain, acute, generalized On: :30 Request TSH (05303)Indication: Hypothyroidism On: :10 Request MICROALBUMIN: CREATININE RATIO (84371) AND (84756)Indication: Hypertension On: :10 Request METABOLIC PANEL, COMPREHENSIVE (28118)Indication: Hypertension On: :10 Request LIPID PANEL ([id number])Indication: Hypertension On: :10 Request CBC WITH MANUAL DIFF ([id number])Indication: Hypertension On: :10 Request HEPATIC FUNCTION PANEL (24105)Indication: Hyperglyceridemia On: :39 Request Lipid Panel (51035)Indication: Hyperglyceridemia On: 42-Dvt-706671:39 Request Comments: in six months (approximately) METABOLIC PANEL, BASIC (07803)Indication: Hypertension On: :59 Request Comments: 6 weeks TSH (95111)Indication: Thyroid nodule On: :56 Request Comments: 6 weeks HEPATIC FUNCTION PANEL (10873)Indication: Hyperglyceridemia On: :46 Request Comments: 4 months LIPID PANEL (69993)Indication: Hyperglyceridemia On: :46 Request Comments: 4 months TSH (58738)Indication: Thyroid nodule On: :57 Request Comments: in three months HEPATIC FUNCTION PANEL ([id number])Indication: Hyperglyceridemia On: :56 Request Comments: in three months LIPID PANEL (06123)Indication: Hyperglyceridemia On: :56 Request Comments: in three months MAGNESIUM (08507)Indication: Hypokalemia On: :51 Request POTASSIUM SERUM ([id number])Indication: Hypokalemia On: :51 Request TSH (91597)Indication: Thyroid nodule On: :51 Request Comments: now Planned Procedures SCREENING DIGITAL TOMOSYNTHESIS OF On: 06-Aug-2018 Intent BREAST ([id number])By: Lakisha Sherman CNP, CNP, Mary E Flu Vaccine (Quadrivalent) [id number]: On: 06-Aug-2018 Intent Lakisha Sherman CNP, CNP, Mary E Comments: Lot #[id number]-L dltd, IMDose prefilled syringegiven by: PRINCE Medina reviewed and ABN signed SCREENING DIGITAL TOMOSYNTHESIS OF On: 25-Jul-2017 Intent BREAST ([id number])By: Lakisha Sherman CNP, CNP, Mary E DEXA SCAN AXIAL SKELETON ([id number])By: On: 25-Jul-2017 Intent Lakisha Sherman CNP, CNP, Mary E EXCISION BGN LSN FC/LID/EAR/NS On: 14-Jun-2016 Intent 0.6-1.0CM ([id number])By: Lakisha Sherman CNP, CNP, Mary E MAMMOGRAM, SCREENING, BOTH BREAST On: 13-Jun-2016 Intent (23232)By: Lakisha Sherman CNP Comments: After Jul 17 2016 Lakisha HOWELL DEXA SCAN AXIAL SKELETON ([id number])By: On: 13-Jun-2016 Intent Lakisha Sherman CNP, CNP, Mary E CT - Abdomen & Pelvis (Without On: 11-Dec-2015 Intent Contrast)By: Lakisha Sherman CNP, CNP, Mary E Endoscopy - Small Bowel SeriesBy: On: 23-Nov-2015 Intent Lakisha Sherman CNP, CNP, Mary E COLONOSCOPY, DIAGNOSTIC ([id number])By: On: 26-Oct-2015 Intent Lakisha Sherman CNP, CNP, Mary E BILATERAL MAMMOGRAMS (13577)By: On: 13-Jul-2015 Intent Shelia Oleary MD BILATERAL MAMMOGRAMS ([id number])By: On: 12-Jun-2014 Intent Shelia Oleary MD Eprescribed prescriptions (G8553)By: On: 07-Jan-2014 Intent Shelia Oleary MD DXA, BONE DENSITY, AXIAL SKELETON On: 24-Jun-2013 Intent ([id number])By: Shelia Oleary MD [id number] BEHAVIORAL COUNSELING On: 24-Jun-2013 Intent FOR OBESITY, 15 MINUTES (G0447)By: Shelia Oleary MD FLU VAC, SPLIT, >3 YEARS, INTRAMUSC On: 24-Jun-2013 Intent ([id number])By: MOIRA Crowell Comments: Lot #:[id number] date:02.22Amount given:0.5mlRoute: IMSite given:L DltdGiven by: VIS and ABN signed ADMINISTRATION OF INFLUENZA VIRUS On: 24-Jun-2013 Intent VACCINE (G0008)By: MOIRA Crowell Breast Screening - BilateralBy: On: 13-Jun-2013 Intent Shelia Oleary MD Breast Screening - BilateralBy: On: 13-Jun-2013 Intent Katia Saunders LPN EKG ([id number])By: Shelia Oleary MD On: 26-Oct-2012 Intent Comments: see scanned document of test done to see results reviewed today with patient Eprescribed prescriptions (G8553)By: On: 26-Oct-2012 Intent Elizabet Johnston LPN FLU VAC, SPLIT, >3 YEARS, INTRAMUSC On: 21-Sep-2012 Intent ([id number])By: Jolene Puckett LPN Comments: Lot:[id number]:prefilled syringeSite: L Dltd, IMGiven by: GABY CarlosVIS signed ADMINISTRATION OF INFLUENZA VIRUS On: 21-Sep-2012 Intent VACCINE (G0008)By: Jolene Puckett LPN Breast Screening - BilateralBy: On: 04-Jun-2012 Intent Shelia Oleary MD CT - ChestBy: Larissa Griffiths DO On: 07-May-2012 Intent Comments: pe protocol Eprescribed prescriptions (G8553)By: On: 07-May-2012 Intent Larissa Griffiths DO EKG ([id number])By: Larissa Griffiths DO On: 16-Apr-2012 Intent Comments: nsr no acute chg Nuclear Stress Test/Stress On: 16-Apr-2012 Intent SPECT/AdenosineBy: Aye KEBEDE, Comments: pt hip replacement <2 months ago not fit or able to do treadmill at this time Larissa Holter Moniter (35379)- 24 hrBy: On: 16-Apr-2012 Intent Larissa Griffiths DO Echo CompleteBy: Larissa Griffiths DO On: 16-Apr-2012 Intent ADMINISTRATION OF PNEUMOCOCCAL On: 29-Jul-2011 Intent VACCINE (G0009)By: Shelia Oleary MD PNEUM VAC ADLT/IMUMNOSPR, SBC/INTRM On: 29-Jul-2011 Intent ([id number])By: Shelia Oleary MD Ultrasound - RenalBy: Anirudh GILL, On: 30-Jun-2011 Intent Shelia Boggs Breast Screening - BilateralBy: On: 09-Jun-2011 Intent Shelia Oleary MD Endoscopy - Small Bowel SeriesBy: On: 08-Nov-2010 Intent Whit HOWELL, Priscilla Charlenea LINE FIXER, Priscilla Endoscopy - Small Bowel SeriesBy: On: 25-Oct-2010 Intent Ciesa LINE FIXER, Priscilla Ciesa LINE FIXER, Priscilla UGI (With air contrast if On: 25-Oct-2010 Intent necessary)By: Ciesbernadine HOWELL, Priscilla Ciesa LINE FIXER, Priscilla Ultrasound - PelvisBy: Anirudh GILL, On: 06-Sep-2010 Intent Shelia Boggs Comments: transvaginal if need CT - Abdomen & PelvisBy: Anirudh GILL, On: 31-Aug-2010 Intent Shelia Boggs DXA, BONE DENSITY, AXIAL SKELETON On: 27-Aug-2010 Intent ([id number])By: Shelia Oleary MD Breast Diagnostic - LeftBy: Anirudh On: 05-Mar-2010 Intent Shelia GILL Comments: 8- Breast Diagnostic - RightBy: On: 13-Apr-2009 Intent Aubree Alba MAMMOGRAM, SCREENING, BOTH BREASTS On: 24-Oct-2008 Intent ([id number])By: Shelia Oleary MD EKG ([id number])By: Shelia Oleary MD On: 24-Oct-2008 Intent Radiology - Hip - BilateralBy: On: 26-Sep-2006 Intent Shelia Oleary MD Nuclear Stress Test/Stress On: 27-Jun-2006 Intent SPECT/TreadmillBy: Shelia Oleary MD Ultrasound - ThyroidBy: Anirudh GILL, On: 27-Jun-2006 Intent Shelia Boggs Instructions Name Dates Details Nonsmoker : How to access health information online Indication: Nonsmoker Nonsmoker : How to access health information online - Detail Indication: Nonsmoker Nonsmoker : Patient Instructions Indication: Nonsmoker Nonsmoker : How to access health information online Indication: Nonsmoker Nonsmoker : How to access health information online - Detail Indication: Nonsmoker Nonsmoker : Patient Instructions Indication: Nonsmoker Sinusitis, acute : How to access health information online Indication: Sinusitis, acute Sinusitis, acute : How to access health information online - Detail Indication: Sinusitis, acute Sinusitis, acute : Patient Instructions Indication: Sinusitis, acute BMI 35.0-35.9,adult : How to access health information online Indication: BMI 35.0-35.9,adult BMI 35.0-35.9,adult : How to access health information online - Detail Indication: BMI 35.0-35.9,adult Sore throat : Patient Instructions Indication: Sore throat Mixed Hyperlipidemia : DISCONTINUED - LIPID PANEL (80684) Indication: Mixed Hyperlipidemia Mixed Hyperlipidemia : DISCONTINUED - HEPATIC FUNCTION PANEL (16059) Indication: Mixed Hyperlipidemia Hypertension : How to access health information online Indication: Hypertension Hypertension : How to access health information online - Detail Indication: Hypertension Hypertension : Patient Instructions Indication: Hypertension BMI 34.0-34.9,adult : How to access health information online Indication: BMI 34.0-34.9,adult BMI 34.0-34.9,adult : How to access health information online - Detail Indication: BMI 34.0-34.9,adult BMI 34.0-34.9,adult : Patient Instructions Indication: BMI 34.0-34.9,adult Squamous cell carcinoma, 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, face Flank pain : Patient Instructions Indication: Flank pain Acute pharyngitis : Patient Instructions Indication: Acute pharyngitis Acute pharyngitis : How to access health information online Indication: Acute pharyngitis Acute pharyngitis : How to access health information online - Detail Indication: Acute pharyngitis Acute pharyngitis : Patient Instructions Indication: Acute pharyngitis Allergic Rhinitis : Patient Instructions Indication: Allergic Rhinitis Hyperglyceridemia : Patient Instructions Indication: Hyperglyceridemia BMI 34.0-34.9,adult : obesity counseling Indication: BMI 34.0-34.9,adult Need for prophylactic vaccination and inoculation against influenza : Patient Instructions Indication: Need for prophylactic vaccination and inoculation against influenza Hypertension : Patient Instructions Indication: Hypertension Atrial fibrillation : patient instrucitons: stop hyzaar, start new rate limiting step and bp control rx at pharm Indication: Atrial fibrillation Encounters Office Visit On: 13-Aug-2018 14:05 Encounter Reason: Annual Medicare Exam - The patient had reviewed and updated the family history, medication/s, past medical history and social history. Yes the patient did have a mini mental status exam done today. The End: 13-Aug-2018 14:43 activities of daily living the patient needs help with are none. The patient has driven in past 6 months and put area rugs through house, but the patient has not had fecal incontinence, had urinary inco ntinence, missed or ran out of medications to soon, fallen in the past 6 months, gotten lost, has a medalert necklace or bracelet or put handrails in bathroom. The patient has completed the following pr eventative measures: mammography (08/2017 and bone density) and colonoscopy (5 years - due back in 10 years). The patient does have durable power of attorney lawyer and living will. The patient has noticed not zulema from the geriatic depression scale. Other providers contributing to the patient's care are frame stylist ([facility]) and other: (dr. dias - eye 2018, dr. dias also did pt's cataract surgeries).Encounter Diagnosis: Nonsmoker, BMI 35.0-35.9,adult , Annual Medicare Phyiscal WITHOUT abnormal findings (Renamed from Encounter for general adult medical examination without abnormal findings) [facility] Office Visit On: 06-Aug-2018 8:30 Encounter Reason: Follow up for chronic medical issues - The patient feels well with no complaints, has good energy level and is sleeping well. Patient has been compliant with instructions. Current medication use: no conchita End: 06-Aug-2018 9:26 e effects, compliant with dosing regimen and considered effective by patient. Patient sleeps 7 (broken) hours per night. Impact of disease: emotional impact-mild. Nutrition: balanced diet and supplement al vitamins. The medical issues the patient is following up for include cardiac issues, high blood pressure, high cholesterol, hypothyroid, osteoporosis/osteopenia and other (IBS, liver and kidney cyst, anxiety, obesity ). Note for Follow up for chronic medical issues: Here for gen med, [ADDITIONAL REASON] Follow up tests - Diagnostic tests include other (labs). Date: (07/29). Encounter Diagnosis: Nonsmoker, BMI 35.0-35.9,adult, Need for prophylactic vaccination and inoculation against influenza (Renamed from Need for immunization against influenza), Hair loss, Encounter for screening mammogram for breast cancer (Renamed from Encounter for screening mammogram f or malignant neoplasm of breast) [facility] Lab Order On: 25-Jul-2018 16:31 Encounter Diagnosis: Hypertension, Hypothyroidism, Mixed Hyperlipidemia (272.2) End: 25-Jul-2018 16:36 [facility] Office Visit On: 13-Apr-2018 8:08 Encounter Reason: Sinusitis - Symptoms include nasal congestion and cheek pressure. Onset was 1 week(s) ago. The patient describes this as worsening. Note for Sinusitis: With swallowing face hurts and ear hurts, with e End: 13-Apr-2018 8:27 ating tonsil hurts, and ear feels fullEncounter Diagnosis: BMI 35.0-35.9,adult, Nonsmoker, Sinusitis, acute, Sore throat [facility] Annotation/Addendum On: 18-Dec-2017 16:37 Encounter Diagnosis: Mixed Hyperlipidemia (272.2) End: 18-Dec-2017 16:39 [facility] Office Visit On: 07-Dec-2017 8:52 Encounter Reason: Sore Throat - Symptoms include sore throat, nasal congestion, fever (last night 101 gone today) and chills. Onset was 4 day(s) ago. Note for Sore throat: Symptoms started 4 days ago with sore throat, End: 07-Dec-2017 9:38 sneezing, loose non productive cough, sinus presssure, fever last night 101, chills, slight wheeze. No headaches, SOB, CP. Prone to strep throat.Encounter Diagnosis: BMI 35.0-35.9,adult, Nonsmoker, Sore throat, Cough, Upper respiratory infection, viral [facility] Annotation/Addendum On: 13-Sep-2017 9:29 [facility] End: 13-Sep-2017 9:31 Lab Order On: 25-Jul-2017 15:45 Encounter Diagnosis: Urinary frequency End: 25-Jul-2017 15:47 [facility] Office Visit On: 25-Jul-2017 8:59 Encounter Reason: Follow up for chronic medical issues - The patient feels well with minor complaints, has good energy level and is sleeping well. Patient has been compliant with instructions. Current medication use: com End: 25-Jul-2017 10:34 pliant with dosing regimen and considered effective by patient. Patient sleeps 7 hours per night. Impact of disease: emotional impact-mild. Nutrition: balanced diet and supplemental vitamins. The medica l issues the patient is following up for include cardiac issues, high blood pressure, high cholesterol, hypothyroid, osteoporosis/osteopenia and other (IBS, liver and kidney cyst, anxiety, obesity ). No te for Follow up for chronic medical issues: Recent with squamous of ear, and basal of face, cataract L eyeIBS issues on goingHad back pain with urinary frequency taking cranberry juice, [ADDITIONAL REASON] Flank Pain - Note for Flank pain: Flank pain used cranberry juice , [ADDITIONAL REASON] Abdominal Pain (Non-Malignant) - Note for Non- malignant abdominal pain : On left certain feeling s after eating but chronic pain. Encounter Diagnosis: Mixed Hyperlipidemia (272.2), Hypertension, Non-smoker, Flank pain, Atrial fibrillation (427.31), Postmenopausal (Renamed from Postmenopausal status), Encounter for screening mammogram for breast cancer (Renamed from Encounter for screening mammogram for malignant neoplasm of breast), Squamous cell carcinoma, ear, Urinary frequency [facility] Lab Order On: 17-Jul-2017 13:29 Encounter Diagnosis: Mixed Hyperlipidemia (272.2), Hypothyroidism, Hyperglyceridemia, Atrial fibrillation (427.31), Postmenopausal (Renamed from Postmenopausal status) End: 17-Jul-2017 13:37 [facility] Annotation/Addendum On: 16-Sep-2016 15:36 Encounter Diagnosis: Unspecified Diagnosis End: 16-Sep-2016 15:46 [facility] Office Visit On: 13-Sep-2016 8:09 Encounter Reason: Lymphadenopathy - Symptoms do not include palpable lump, sore throat or fever. The nodes are described as soft. Onset was gradual month(s) ago. The patient describes this as mild and unchanged. Note for End: 13-Sep-2016 8:42 Lymphadenopathy: Location is left side of neck below ear- she wonders if related to squamous cell removal by Dr Collazo- end of may- seems to since got stitches out beginning of jul- no problems swall owing- no hurt to lay on that side-pops and comes and goesEncounter Diagnosis: Non- smoker, BMI 34.0-34.9,adult, Sinus congestion (Renamed from Congestion of paranasal sinus), Dysfunction of left eustachian tube [facility] Office Visit On: 27-Jun-2016 11:03 Encounter Reason: Follow up tests - Diagnostic tests include other (biopsy).Encounter Diagnosis: Squamous cell carcinoma, face, Hyperglyceridemia End: 27-Jun-2016 11:47 [facility] Annotation/Addendum On: 27-Jun-2016 8:05 Encounter Diagnosis: Squamous cell carcinoma, face End: 27-Jun-2016 8:07 [facility] Office Visit On: 14-Jun-2016 12:32 Encounter Reason: Skin Lesion, Facial - Symptoms include lesion itching. The condition involves a single lesion. Lesion(s) are located on the left cheek. The symptoms occur constantly. The patient describes this as worse End: 14-Jun-2016 14:38 erin. Associated symptoms do not include weight loss, fever, fatigue, cough or shortness of breath. Presenting symptoms included facial lesion.Encounter Diagnosis: Irritated nevus of face, Itching with irritation [facility] Office Visit On: 13-Jun-2016 10:02 Encounter Reason: Leg Pain - This condition occurred without any known injury. Symptoms include leg pain. The symptoms occur constantly. Previous presentation included leg pain. Note for Leg pain: weakness of upper thi End: 13-Jun-2016 11:00 ghs worse with going down steps while on 5mg of livalo, [ADDITIONAL REASON] Back Pain - Note for Back pain: low back pain bilateral lower back after having diarrhea Encounter Diagnosis: Leg weakness, Low back pain, Mixed Hyperlipidemia (272.2), Hypertension, BMI 34.0-34.9,adult, Postmenopausal (Renamed from Postmenopausal status), Encounter for screening mammogram for breast cancer (Renamed from Encounter for screening mammogram for malignant neoplasm of breast), Irritated nevus of face [facility] Office Visit On: 11-Dec-2015 8:13 Encounter Reason: Abdominal pain - The onset of the pain has been gradual and has been occurring in a persistent pattern for 2 months. The course has been recurrent. The pain is described as a moderate dull ache and pres End: 11-Dec-2015 8:59 sure sensation. The pain is described as being located in the right upper quadrant, left upper quadrant and epigastrium. The pain radiates to the left flank. The symptoms are aggravated by meals (1/2 to 1 hour after eating). The symptoms have been associated with abdominal distention and bloating. Note for Pain: eat and get bloated. No gallbladder, still with female parts. Still having bloating and abdominal pain. With gluten free was a little less. Not severe, just constant pain ??Still with pain, Encounter Diagnosis: Irritable bowel syndrome with constipation, Abdominal pain, Abdominal bloating, Hypertension, BMI 34.0-34.9,adult [facility] Office Visit On: 23-Nov-2015 8:56 Encounter Reason: Abdominal pain - The onset of the pain has been gradual and has been occurring in a persistent pattern for 2 months. The course has been recurrent. The pain is described as a moderate dull ache and pres End: 23-Nov-2015 8:26 sure sensation. The pain is described as being located in the left upper quadrant. The pain radiates to the left flank. The symptoms have no aggravating factors. The symptoms are relieved by eating. The symptoms have been associated with abdominal distention and bloating. Note for Pain: eat and get bloated. No gallbladder, still with female parts. Still having bloating and abdominal pain. With glute n free was a little less. Not severe, just constant pain Encounter Diagnosis: Abdominal pain, Abdominal bloating [facility] Office Visit On: 05-Nov-2015 14:35 Encounter Diagnosis: Irritable bowel syndrome (564.1) End: 05-Nov-2015 14:38 [facility] Office Visit On: 26-Oct-2015 9:39 Encounter Reason: Abdominal pain - The onset of the pain has been gradual and has been occurring in a persistent pattern for 1 month. The course has been recurrent. The pain is described as a moderate dull ache. The pain End: 26-Oct-2015 10:48 is described as being located in the left upper quadrant. The pain radiates to the left flank. The symptoms have no aggravating factors. The symptoms have been associated with abdominal distention and bloating. Note for Pain: eat and get bloated. No gallbladder, still with female parts. Encounter Diagnosis: Flank pain, Abdominal pain, acute, epigastric, Encounter for screening for malignant neoplasm of colon (Renamed from Special screening for malignant neoplasms, colon) [facility] Lab Order On: 13-Jul-2015 11:23 Encounter Diagnosis: Screening for malignant neoplasm of breast End: 13-Jul-2015 11:25 [facility] Office Visit On: 01-Sep-2014 10:50 Encounter Reason: Sore ThroatEncounter Diagnosis: Acute pharyngitis, Congestion of throat End: 01-Sep-2014 18:02 [facility] Phone Encounter On: 12-Jun-2014 10:10 Encounter Diagnosis: Screening for breast cancer (V76.10) End: 12-Jun-2014 10:11 [facility] Office Visit On: 07-Jan-2014 7:49 Encounter Reason: Follow up for chronic medical issues - The patient feels well with minor complaints, has good energy level and is sleeping well. Patient has been compliant with instructions. Current medication use: com End: 07-Jan-2014 8:34 pliant with dosing regimen and considered effective by patient. Patient sleeps 7 hours per night. Impact of disease: emotional impact-mild. Nutrition: balanced diet and supplemental vitamins. The medica l issues the patient is following up for include cardiac issues, high blood pressure, high cholesterol, hypothyroid, osteoporosis/osteopenia and other (IBS, liver and kidney cyst, anxiety, obesity )., [ADDITIONAL REASON] Follow up tests - Date: (cholesterol!!). 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), Osteopenia (733.90), Atrial fibrillation (427.31), BMI 34.0-34.9, ADULT (V85.34), Obesity,unspecified (278.00), BMI 33.0-33.9, ADULT (V85.33), Allergic Rhinitis [facility] Lab Order On: 30-Aug-2013 15:52 Encounter Diagnosis: Hypertriglycerides (272.1), Osteopenia (733.90) End: 30-Aug-2013 15:57 [facility] Office Visit On: 29-Aug-2013 12:13 Encounter Diagnosis: Mixed Hyperlipidemia (272.2) End: 29-Aug-2013 12:17 [facility] Office Visit On: 23-Aug-2013 9:25 Encounter Reason: Urinary problems - The onset of the urinary problems has been sudden and they have been occurring in a persistent pattern. The course has been constant. The urinary problems are described as moderate.Encounter Diagnosis: End: 23-Aug-2013 10:19 Abdominal Pain,General (789.07), Vaginitis (616.10) [facility] Lab Order On: 16-Jul-2013 8:28 Encounter Diagnosis: Mixed Hyperlipidemia (272.2) End: 16-Jul-2013 8:31 [facility] Phone Encounter On: 15-Jul-2013 17:23 Encounter Diagnosis: Mixed Hyperlipidemia (272.2) End: 15-Jul-2013 17:33 [facility] Phone Encounter On: 04-Jul-2013 9:55 Encounter Diagnosis: Osteopenia (733.90) End: 04-Jul-2013 9:57 [facility] Office Visit On: 24-Jun-2013 13:32 Encounter Reason: Annual Medicare Exam - The patient had reviewed and updated the family history, medication/s, past medical history and social history. Yes the patient did have a mini mental status exam done today. The End: 24-Jun-2013 14:21 activities of daily living the patient needs help with are none. The patient has driven in past 6 months, fallen in the past 6 months (tripped over a chiar in garage, following hip replacement ) and put area rugs through house. The patient has completed the following preventative measures: PAP smear (07-29-2011), mammography (06-21-2013) and colonoscopy (09-28-2010 ). The patient does have durable gurjit r of attorney lawyer and living will. The patient has noticed nothing from the geriatic depression scale. Other providers contributing to the patient's care are frame stylist (Dr. Lopez ), gastrologist (Dr. Marcelino ) and other: (opth: Dr. Clark ). 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.2), Obesity,unspecified (278.00), Abnormal mammogram (793.80), Hyperglycemia (790.29), Osteopenia (733.90), Hypothyroidism (244.9), Palpitations (785.1), Thyroid nodule (241.0), Anxiety (300.00), 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), Atrial fibrillation (427.31), Annual Medicare Physical (V70.0), BMI 34.0-34.9, ADULT (V85.34), Mixed Hyperlipidemia (272.2) [facility] Order On: 13-Jun-2013 14:46 Encounter Diagnosis: Hypothyroidism (244.9), Hypertriglycerides (272.1), Hypertension 401.1 (Renamed from Hypertension (401.0)), Osteopenia (733.90), Screening for breast cancer (V76.10) End: 13-Jun-2013 14:50 [facility] Order On: 13-Jun-2013 14:11 Encounter Diagnosis: Abnormal mammogram (793.80) End: 13-Jun-2013 14:13 [facility] Phone Encounter On: 18-Mar-2013 16:04 Encounter Diagnosis: Hypertension 401.1 (Renamed from Hypertension (401.0)) End: 18-Mar-2013 16:16 [facility] Office Visit On: 26-Oct-2012 8:47 Encounter Reason: Shoulder Bursitis - The activity began 1 week(s) ago.Encounter Diagnosis: Hypertension 401.1 (Renamed from Hypertension (401.0)), Arm Pain (729.5) End: 26-Oct-2012 9:17 [facility] Office Visit On: 21-Sep-2012 8:44 Encounter Reason: Injections - The medication the patient is here to receive is other (flu shot).Encounter Diagnosis: NEED FOR PROPHYLACTIC VACCINATION AND INOCULATION AGAINST INFLUENZA (V04.81) End: 23-Sep-2012 19:48 [facility] Lab Order On: 04-Jun-2012 13:26 Encounter Diagnosis: GYNECOLOGICAL EXAMINATION, ROUTINE (V72.31) End: 04-Jun-2012 13:31 [facility] Office Visit On: 07-May-2012 10:19 Encounter Reason: Follow up tests - Date: (holtor at desk).Encounter Diagnosis: Atrial fibrillation (427.31), Palpitations (785.1), Hyperglycemia (790.29) End: 07-May-2012 19:31 [facility] Office Visit On: 03-May-2012 12:28 Encounter Reason: Follow up tests - Diagnostic tests include ECHO (8-17 and stress 8-14). 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 blood pressure range : (130 to 145/83).Encounter Diagnosis: End: 16-Apr-2012 16:47 Palpitations (785.1), Chest pain (786.59), Anxiety (300.00) [facility] Office Visit On: 26-Mar-2012 8:41 Encounter Reason: Tremor - Onset was 1 month(s) ago (I had a surgery and was fine for a week when my neice was with me but then I cut back on the lennox and I have noticed it happens when my muscles are relaxed). The patien End: 26-Mar-2012 9:39 t describes this as unchanged. Symptoms are not relieved by rest (relaxing muscles is when it gets worse- if i am resting my muscles will just twitch- it can be a feeling or a visible movement- it happened suddenly a week after surgery -- ). Encounter Diagnosis: Tremor NEC (333.1), Anxiety (300.00), Hypotension, unspecified (458.9), Hypertension 401.1 (Renamed from Hypertension (401.0)) [facility] Office Visit On: 15-Mar-2012 8:14 Encounter Reason: Tremor - Onset was 1 month(s) ago (I had a surgery and was fine for a week when my neice was with me but then I cut back on the lennox and I have noticed it happens when my muscles are relaxed). The patien End: 15-Mar-2012 8:59 t describes this as unchanged. Symptoms are not relieved by rest (relaxing muscles is when it gets worse- if i am resting my muscles will just twitch- it can be a feeling or a visible movement- it happened suddenly a week after surgery -- ). Encounter Diagnosis: Tremor NEC (333.1), Hypotension, unspecified (458.9), Anxiety (300.00) [facility] Office Visit On: 22-Dec-2011 8:32 Encounter Reason: Follow up for chronic medical issues - The patient feels well with minor complaints, has good energy level and is sleeping well. Patient has been compliant with instructions. Current medication use: com End: 22-Dec-2011 9:47 pliant with dosing regimen and considered effective by patient. Patient sleeps 7 hours per night. Impact of disease: emotional impact-mild. Nutrition: balanced diet and supplemental vitamins. The medica l issues the patient is following up for include cardiac issues, high blood pressure, high cholesterol, hypothyroid, osteoporosis/osteopenia and other (IBS, liver and kidney cyst, anxiety, obesity ).Encounter Diagnosis: Hypertension 401.1 (Renamed from Hypertension (401.0)), Hypothyroidism (244.9), Cyst, kidney, acquired (593.2), Pelvis/Thigh/Hip Pain (719.45), Thyroid nodule (241.0), Osteopenia (733.90), Obesity,unspecified (278.00), GERD (530.81), ANXIETY DISORDER, GENERALIZED (300.02), Hypertriglycerides (272.1) [facility] Office Visit On: 19-Aug-2011 8:24 Encounter Reason: suture removal - The lesion requiring suture removal happened days (7 days) ago. The suture were placed because of surgery.Complications at the area of the sutures include none.Encounter Diagnosis: suture removal End: 22-Aug-2011 6:48 [facility] Phone Encounter On: 15-Aug-2011 16:23 Encounter Diagnosis: Unspecified Diagnosis End: 15-Aug-2011 16:26 [facility] Office Visit On: 12-Aug-2011 10:53 Encounter Reason: Skin Lesions - Lesion(s) are located on the right trunk area (on back).Encounter Diagnosis: Lesion-Unknown behavior (238.2) End: 15-Aug-2011 6:53 [facility] Office Visit On: 29-Jul-2011 8:30 Encounter Reason: Well Women Exam - The patient feels well with no complaints, has good energy level and is sleeping well. Pap smear: date of last pap: (). Contraceptive history: The patient is not using any method End: 29-Jul-2011 9:19 of contraception at this time. Patient does not exercise. The patient's libido is normal. The patient reports that she performs monthly self breast exam. Calcium intake includes 1500 mg with Vit D daily supplement.Encounter Diagnosis: WWV V73.21 (Renamed from WWV), Hypertension 401.1 (Renamed from Hypertension (401.0)), Hypothyroidism (244.9) [facility] Office Visit On: 30-Jun-2011 8:25 Encounter Reason: Follow up for chronic medical issues - The patient feels well with minor complaints, has good energy level and is sleeping well. Patient has been compliant with instructions. Current medication use: no End: 30-Jun-2011 9:02 side effects, compliant with dosing regimen and considered effective by patient. Patient sleeps 7 hours per night. Impact of disease: emotional impact-mild. Nutrition: balanced diet and supplemental vit amins. The medical issues the patient is following up for include depression, high blood pressure, high cholesterol, hypothyroid and other (hx. 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 Patient has been compliant with instructions. Current medication use: no side effects, compliant with dosing regime End: 08-Nov-2010 10:09 n and considered effective by patient. Patient sleeps 7 hours per night. The medical issues the patient is following up for include All identified problems below and other (H.Pylori).Encounter Diagnosis: INFECTION, BACTERIAL D/T HELICOBACTER PYLORI (041.86), Nausea (787.02), Abdominal Pain,LUQ (789.02), ANXIETY DISORDER, GENERALIZED (300.02) [facility] Office Visit On: 27-Oct-2010 12:46 Encounter Reason: Follow up, Laboratory Test Results - Date: (10/25/10). Current symptoms/reason for visit include/s Symptoms include abdominal pain. There is a family history of cardiovascular disease (parents ) and ment End: 27-Oct-2010 13:37 al retardation (sister) , while there is no family history of breast cancer, cystic fibrosis, Down's syndrome or myocardial infarction before age 55. Past medical history includes elevated cholesterol, emotional problems (anxiety), hypothyroidism, irritable bowel disease and other (osteopenia ).Encounter Diagnosis: INFECTION, BACTERIAL D/T HELICOBACTER PYLORI (041.86) [facility] Office Visit On: 25-Oct-2010 8:37 Encounter Reason: Follow up acute care visit - The patient does not feel well and worsening. Patient has been non-compliant with instructions. Patient sleeps 7 hours per night. The medical issues the patient is following End: 25-Oct-2010 9:26 up for include All identified problems below and other (Abd pain ).Encounter Diagnosis: Abdominal Pain,LUQ (789.02), Nausea (787.02), Hypercalcemia (275.42), Irritable bowel syndrome (564.1), ANXIETY DISORDER, GENERALIZED (300.02) [facility] Office Visit On: 06-Sep-2010 11:20 Encounter Reason: Follow up acute care visit - The patient feeling better since last seen and improving. Patient has been compliant with instructions. Current medication use: no side effects and compliant with dosing reg End: 06-Sep-2010 11:55 imen. Patient sleeps 7 hours per night. Impact of disease: emotional impact-mild. Nutrition: balanced diet and supplemental vitamins. The medical issues the patient is following up for include other (abd. pain ).Encounter Diagnosis: Abdominal Pain,General (789.07) [facility] Office Visit On: 31-Aug-2010 8:20 Encounter Reason: Abdominal pain - The pain has been occurring in a persistent pattern for 2 weeks. The course has been increasing (the pain is the same but te nausea is new ). The pain is described as a moderate burning End: 31-Aug-2010 9:32 and dull ache. The pain is described as being located in the left upper quadrant, right lower quadrant (mainly to the left and radiates to L flank, started in lower R abd/pelvic yesterday) and left low er quadrant. The pain radiates to the left flank. The symptoms are aggravated by meals (1/2 to 1 hour after eating) (the pain isnt worse but the gas feeling is).Encounter Diagnosis: Abdominal Pain,General (789.07) [facility] Office Visit On: 27-Aug-2010 11:10 Encounter Reason: Follow up for chronic medical issues - The patient feels well with minor complaints and has decreased energy level. Patient has been compliant with instructions. Current medication use: no side effects, End: 27-Aug-2010 11:54 compliant with dosing regimen and considered effective by patient. Patient sleeps 7 hours per night. Impact of disease: emotional impact-mild. Nutrition: balanced diet and supplemental vitamins. The me dical issues the patient is following up for include cardiac issues, gastric reflux, high blood pressure, high cholesterol, hypothyroid, osteoporosis/osteopenia and other (IBS, obesity ).Encounter Diagnosis: Hypothyroidism (244.9), 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), Irritable bowel syndrome (564.1), GERD (530.81), Hypertension 401.1 (Renamed from Hypertension (401.0)), Osteopenia (733.90), Thyroid nodule (241.0), Hypertriglycerides (272.1), Obesity,unspecified (278.00) , Tinnitus, Liver cyst, WWV V73.21 (Renamed from WWV) [facility] Phone Encounter On: 16-Aug-2010 7:50 Encounter Diagnosis: Hypothyroidism (244.9), 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), Hypertension 401.1 (Renamed from Hypertension (401.0)) End: 16-Aug-2010 7:53 [facility] Office Visit On: 05-Mar-2010 13:40 Encounter Reason: Follow up for chronic medical issues - The patient feels well with minor complaints ,has good energy level and is sleeping well. Patient has been compliant with instructions. Current medication use: exp End: 05-Mar-2010 14:25 eriencing side effects (muscle aches from zocor). Patient sleeps 7 hours per night. Impact of disease: emotional impact-mild. Nutrition: balanced diet and supplemental vitamins. The medical issues the p atient is following up for include cardiac issues ,gastric reflux ,high blood pressure ,high cholesterol ,hypothyroid ,osteoporosis/osteopenia and other (IBS). 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 Patient has been compliant with instructions. Current medication use End: 28-Apr-2009 10:23 : no side effects ,compliant with dosing regimen and considered effective by patient. Patient sleeps 7 hours per night. Impact of disease: emotional impact-mild. Nutrition: balanced diet and supplementa l vitamins. The medical issues the patient is following up for include cardiac issues ,gastric reflux ,high blood pressure ,high cholesterol ,hypothyroid ,osteoporosis/osteopenia and other (obesity, hip pain, IBS ). 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), Irritable bowel syndrome (564.1), Hypothyroidism (244.9), GERD (530.81), Osteopenia (733.90), Thyroid nodule (241.0) [facility] Phone Encounter On: 13-Apr-2009 10:21 Encounter Diagnosis: Abnormal mammogram (793.80) End: 13-Apr-2009 10:24 [facility] Historical Summary On: 18-Mar-2009 13:30 [facility] End: 18-Mar-2009 13:32 Historical Summary On: 19-Nov-2008 13:57 [facility] End: 19-Nov-2008 13:57 Office Visit On: 04-Nov-2008 8:55 Encounter Reason: Well Women Exam - The patient feels well with minor complaints ,has decreased energy level and is sleeping well. Pap smear: date of last pap: (2005). Contraceptive history: The patient is not using any End: 04-Nov-2008 9:51 method of contraception at this time. Patient exercises a weekly. The patient's libido is absent. The patient reports that she performs monthly self breast exam. Calcium intake includes 1200 mg with Vit D daily supplement. Note for Well Women Exam: menopausal since age 45 Encounter Diagnosis: DENNIS, Viral infection, unspecified (079.99) [facility] Office Visit On: 24-Oct-2008 9:28 Encounter Reason: Follow up for chronic medical issues - The patient feels well with minor complaints ,has good energy level and is sleeping well. Patient has been compliant with instructions. Current medication use: no End: 24-Oct-2008 9:57 side effects and compliant with dosing regimen. Patient sleeps 7 hours per night. Nutrition: inappropriate diet and supplemental vitamins. The medical issues the patient is following up for include All identified problems below ,high blood pressure and high cholesterol. Encounter Diagnosis: Hypertension 401.1 (Renamed from Hypertension (401.0)), Thyroid nodule (241.0), Irritable bowel syndrome (564.1), GERD (530.81), Tinnitus, Hypertriglycerides (272.1), Liver cyst, Pelvis/Thigh/Hip Pain (719.45), Osteopenia (733.90), Hypothyroidism (244.9), [facility] Office Visit On: 10-Aug-2007 10:57 Encounter Reason: Follow up, Diagnostic Procedure Results - Diagnostic tests include bone scan. Date: (07-24-07 ). , [ADDITIONAL REASON] Follow up, Laboratory Test Results - Date: (07-24-07 ). Current symptoms/reason End: 10-Aug-2007 11:43 for visit include/s Follow up visit with no current symptoms. There is a family history of cardiovascular disease. Past medical history includes elevated triglycerides ,hypertension and hypothyroidism. Encounter Diagnosis: Hypertriglycerides (272.1) , Hypertension (401.0), Thyroid nodule (241.0), Chest pain (786.59), Irritable bowel syndrome (564.1), GERD (530.81), Hypokalemia (276.8), Tinnitus, Liver cyst, Pelvis/Thigh/Hip Pain (719.45), WWV, Osteopenia (733.90) [facility] Office Visit On: 26-Sep-2006 9:49 Encounter Reason: Follow up for chronic medical issues - The patient feels well with no complaints ,has good energy level and is sleeping well. Patient has been compliant with instructions. Current medication use: no conchita End: 28-Sep-2006 17:09 e effects ,compliant with dosing regimen and considered effective by patient. Patient sleeps 8 hours per night. Nutrition: balanced diet. The medical issues the patient is following up for include All i dentified problems below ,high blood pressure ,high cholesterol ,hypothyroid and other (GERD, IBS). Encounter Diagnosis: Hypertriglycerides (272.1), Thyroid nodule (241.0), Hypertension (401.0), Hypokalemia (276.8), Chest pain (786.59), Irritable bowel syndrome (564.1), GERD (530.81), Tinnitus, Liver cyst, Pelvis/Thigh/Hip Pain (719.45) [facility] Office Visit On: 27-Jun-2006 9:20 Encounter Reason: Follow up ER - Reason for hospitalization note: (chest pain). Patient has been compliant with instructions. Current medication use: no side effects and compliant with dosing regimen. The patient feels w End: 27-Jun-2006 10:00 ell with no complaints ,has good energy level and is sleeping well. Patient sleeps 8 hours per night. Nutrition: balanced diet. 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
--- OUTSIDE RECORDS SUMMARY | 2018-12-01 05:13 | XMS RPT_ITS | Continuity of Care Document ---
:1945 Author Organization [facility] Address [address] [place] [address] Phone Care Team Providers Name Role Phone Whit LYNDALakisha Unavailable Dr. Demetri Tanner Unavailable Krista Castillo [...] told use claritin no D Status: Active Anxiety (F41.9, 300.00) Status: Active [...] Active Hypercalcemia (E83.52, 275.42) Comments: stop calcium .3 with nausea Status: Active Hyperglyceridemia (E78.1, 272.1) Comments: would like to get on livalo but insurance not cover was on Zocor 03-05-2010 and provachol 03-15-12 with cramping. Status: Active Hypertension (I10, 401.9) Comments: controlled on toprol Status: Active Hypothyroidism (E03.9, 244.9) Comments: good - Status: Active Irritable bowel syndrome (K58.9, 564.1) [...] bad. may need to have replaced. seen edgardo. 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 mojica took out and see someone at [facility] and stable Status: Active Tremor (R25.1, 781.0) Status: Active Unspecified Diagnosis Status: Active Unspecified Diagnosis Status: Active Unspecified Diagnosis Status: Active Upper respiratory infection, viral (J06.9, 465.9) Status: Active Urinary frequency (R35.0, 788.41) Comments: will reevaluate in future Status: Active Vaginitis (N76.0, 616.10) Comments: yeast vs other Status: Active WWV V73.21 (Renamed from [facility]) Comments: mammo 06-21, BD 12- scope 2009, mother after pneumonvax. Status: Active [...] days Quantity: 90 {Tablet} Refills: 3 Ordered:23-Jan-2018 Lakisha Sherman CNP, CNP, Mary E Start : 23-Jan-2018 Active Livalo 1 MG Oral Tablet 1 Tablet Tablet qd for 90 days Quantity: 90 {Tablet} Refills: 3 Ordered:23-Jan-2018 Lakisha Sherman CNP, CNP, Mary E Start : 23-Jan-2018 Active Comments:unable to take statin zetia, lipitor Multivitamin Adults 50+ Oral Tablet Active Toprol XL 50 MG Oral Tablet Extended Release 24 Hour 1 Tablet ER 24HR qd for 0 days Quantity: 90 {Tablet} Refills: 3 Ordered:17-Jun-2018 Lakisha Sherman CNP, CNP, Mary E Start : 17-Jun-2018 Active Toprol XL 50 MG Oral Tablet Extended Release 24 Hour 1 Tablet ER 24HR qd for 0 days Quantity: 90 {Tablet} Refills: 3 Ordered:17-Jun-2018 Lakisha Sherman CNP, CNP, Mary E Start : 17-Jun-2018 Active ACTONEL, 150MG (Oral Tablet) 1 Tablet q monthly for 90 days Quantity: 3 {Tablet} Refills: 3 Ordered:15-Oct-2013 Shelia Oleary MD Start : 15-Oct-2013 End : 15-Oct-2013 Inactive ALIGN (Oral Capsule) 1 Capsule daily for 30 days Refills: 0 Ordered:08-Nov-2010 Whit HOWELL, Lakisha Riley CLOSED CIRCUIT SCREEN WATCHER, Priscilla Start : 08-Nov-2010 End : 08-Dec-2010 Inactive ATIVAN, 0.5MG (Oral Tablet) 1 Tablet qd for 0 days Quantity: 30 {Tablet} Refills: 0 Ordered:18-Mar-2013 Bharti Villegas LPN Start : 15-Mar-2012 End : 18-Mar-2013 Inactive Comments:thirty Atorvastatin Calcium 20 MG Oral Tablet 1 (one) Tablet daily for 0 days Quantity: 90 {Tablet} Refills: 3 Ordered:09-Jan-2018 Kit Johnston LPNn L Start : 18-Dec-2017 End : 09-Jan-2018 Inactive CARDIZEM LA, 120MG (Oral Tablet Extended Release 24 Hour) 1 Tablet ER 24HR qhs for 0 days Quantity: 30 {Tablet_ER_24HR} Refills: 2 Ordered:18-Mar-2013 Bharti Villegas LPN Start : 07-May-2012 End : 18-Mar-2013 Inactive CELEBREX, 200MG (Oral Capsule) 1 (one) Capsule qd/prn for 0 days Quantity: 90 {Capsule} Refills: 3 Ordered:15-Aug-2011 Preston RODRIGUEZN, Elizabet L Start : 15-Aug-2011 End : 15-Aug-2011 Inactive CLARITHROMYCIN, 500MG (Oral Tablet) 1 Tablet bid for 14 days Quantity: 28 {Tablet} Refills: 0 Ordered:27-Oct-2010 Whit HOWELL, Lakisha Riley CLOSED CIRCUIT SCREEN WATCHER, Priscilla Start : 27-Oct-2010 End : 10-Nov-2010 Inactive COLESTID, 5GM (Oral Granules) 1 Granules bid for 0 days Quantity: 1 {Packet(s)} Refills: 3 Ordered:19-Aug-2013 Long RETAIL MERCHANDISER, Elizabet L Start : 15-Jul-2013 End : 19-Aug-2013 Inactive CoQ-10 100 MG Oral Capsule Extended Release 1 (one) Capsule ER Capsule ER daily for 0 days Quantity: 30 {Capsule} Refills: 0 Ordered:25-Jul-2017 Jonathan GRIFFINKrista Start : 13-Jun-2016 End : 25-Jul-2017 Inactive Fenofibrate 120 MG Oral Tablet 1 (one) Tablet daily with a meal for 0 days Quantity: 30 {Tablet} Refills: 6 Ordered:10-Oct-2016 Shelia Oleary MD Start : 10-Oct-2016 End : 10-Oct-2016 Inactive Comments:per her research development manager not want her on that, needs Livalo [...] days Quantity: 28 {Tablet} Refills: 0 Ordered:27-Oct-2010 Lakisha Sherman CNP [facility] Lakisha Cartagena Start : 27-Oct-2010 End : 10-Nov-2010 Inactive OMEPRAZOLE, 20MG (Oral Tablet Delayed Release) [address] daily for 0 days Quantity: 30 {Tablet_DR} Refills: 0 Ordered:25-Oct-2010 Chip GRIFFINKatia Start : 31-Aug-2010 End : 25-Oct-2010 Inactive PRADAXA, 75MG (Oral Capsule) 1 Capsule qd for 0 days Quantity: 30 {Capsule} Refills: 3 Ordered:18-Mar-2013 Bharti Villegas LPN Start : 07-May-2012 End : 18-Mar-2013 Inactive PROBIOTIC (Oral Tablet Delayed Release) 1 (one) Tablet DR daily for 30 days Quantity: 30 {Tablet} Refills: 0 Ordered:25-Nov-2015 Whit [facility], Lakisha Riley [facility] Lakisha Cartagena Start : 26-Oct-2015 End : 25-Nov-2015 Inactive SENOKOT, 8.6MG (Oral Tablet) 1 Tablet bid for 30 days Refills: 0 Ordered:24-Jun-2013 MOIRA Crowell Start : 18-Mar-2013 End : 24-Jun-2013 Inactive SUCRALFATE, 1GM (Oral Tablet) 1 (one) Tablet qid 1 hour before meals and at bedtime for 14 days Quantity: 56 {Tablet} Refills: 0 Ordered:23-Nov-2015 Whit [facility], Lakisha Riley [facility] Lakisha Cartagena Start : 23-Nov-2015 End : [...] Start : 05-Mar-2010 Inactive Comments:muscle aches ZOSTAVAX, 02353XAV/0.65ML (Subcutaneous Solution Reconstituted) uad For Solution SQ [...] days Quantity: 30 {Capsule} Refills: 3 Ordered:11-Dec-2015 Krista Castillo LPN Start : 26-Oct-2015 End : 11-Dec-2015 Discontinued [...] Quantity: 60 {Tablet} Refills: 6 Ordered:10-Aug-2007 Long Elizabet GRIFFIN Start : 10-Aug-2007 End : 25-Sep-2013 Discontinued [...] Visit Report Result: Comments: See Note; NOTES: [facility] [address] [place] [address] OFFICE VISIT Date of Service: 09/28/17 MR#: [id number] Acct: [id number] Name: KAMRYN NEUMANN ep #: [id number] : 1945 Provider: DIETER Mahan Age/Sex: 71/F Location: [facility] Status: Signed HPI 1 Y FU: Details: [...] brachial Intake Visit Reasons: 1 Y FU Automatic Pilot Mechanic Required: No Accompanied by: None Is patient [...] medication. Plan Detail Addit ional Comments - REBA Nguyen Discussed the above patient with Dr. Black [...] prior to saving. Follow Up 1 Year (EVENTS INTERN) Coding Level of Care Code Off vis,est,level 3 Diagnoses Paroxysmal atrial fibrillation I48.0 Palpitations R00.2 Mixed hyperlip idemia E78.2 Hyperlipidemia type: mixed hyperlipidemia 09/28/17 1242 <Electronically signed by Michael Mahan NP-C> Date Michael Mahan NP-C 09/30/17 1708<Electronically signed by Gerald Bell MD> Cosigner Signature: Date (if applicable) Gerald Bell MD CC: Lakisha Sherman NP 13-Sep-2017 Dexa Bone Density Study (HP) Result: Comments: See Note; NOTES: [facility] Imaging Services [address] [place] [address] Dexa Bone Density Study (HP) MR#: [id number] Acct: [id number] Name: KAMRYN NEUMANN Serafin Rep #: [id number] : 1945 F 71 From: Wayne Rabago MD PCP: Lakisha Sherman NP Status: REG CL Study: Dexa Bone Density Study (HP) Date of Exam: 09/13/17 Exam# [id number] Ordering Dr: Lakisha Sherman STUDY : DUAL [...] Signed: Wayne Rabago MD at 9:21 EST [facility] [phone], Service support , CC: Lakisha Sherman NP Spoke Maker: Signed 07-Sep-2017 SCREENING MAMM (CAD), BILAT Result: Comments: See Note; NOTES: [facility] Imaging Services [address] [place] [address] SCREENING MAMM (CAD), BILAT MR#: [id number] Acct: [id number] Name: KAMRYN NEUMANN Rep #: [id number] : 1945 F 71 From: Jimenez Harris MD PCP: Lakisha Sherman NP Status: REG CLI Study: SCREENING MAMM (CAD), BILAT Date of Exam: 09/07/17 Exam# [id number] Ordering Dr: Lakisha Sherman MAMMOGRAP HY - [...] delay biopsy of a clinically suspicious abnormality. [id number] Electronically Signed: Jimenez Harris MD at 8:01 EST , Service support , CC: Lakisha Sherman NP Spoke Maker: Signed 06-Oct-2016 Left Heart Cath/COR/LV Percut Result: Comments: See Note; NOTES: [facility] Imaging Services [address] [place] [address] Cardiac Catheterization Report MR#: [id number] Acct: [id number] Name: KAMRYN NEUMANN Rep #: [id number] : 1945 70 From: Kp Lopez MD [...] radial area. Intra-arterial cocktail was administered. A 5-Belizean JL3.5 catheter was then advanced to the ascending aorta, flushed, and pressures recorded. Left coronary ostium was identified and engaged. Left coronary angiography performed in multiple views. Following this, the catheter was removed and a 5-Belizean JR5 catheter was inserted. The right coron [...] no evidence of stenosis. The AV groove bran h did not demonstrate any significant stenosis. LEFT ANTERIOR DESCENDING ARTERY: The left anterior descending artery was a medium-sized vessel. It gave off a diagonal vessel, which bifurcated. No signi ficant stenosis was noted in this vessel. A large septal dish up person was also noted. The left anterior descending [...] care. Kp Lopez MD T: NTS JOB: [id number] 10/07/16 1040 <Electron ically signed by Kp Lopez MD> Date Kp Lopez MD Cosigner Signature (If Indicated): Date CC: Lakisha Sherman; Kp Lopez MD Date Dictated: 10/06/161702 Date Transcribed: 10/06/161702 Spoke Maker: Signed 04-Oct-2016 Chest PA and Lateral Result: Comments: See Note; NOTES: [facility] Imaging Services [address] [place] [address] Verdana 4d Chest PA and Lateral MR#: [id number] Acct: [id number] Name: KAMRYN NEUMANN Rep # : [id number] : 1945 F 70 From: Wayne Rabago MD PCP: Lakisha Sherman Status: PRE CLI Study: Chest PA and Lateral Date of Exam: 10/04/16 Exam# [id number] Ordering Dr: Kp Lopez MD STUDY: X- [...] Wayne Rabago MD at 14:21 EST Tel [phone], Service support [phone], CC: Lakisha Sherman; Kp Lopez MD Spoke Maker: Signed 03-Oct-2016 Nuclear Stress Test - Chemical Result: Comments: See Note; NOTES: [facility] Imaging Services [address] [place] [address] Verdana 4d Nuclear Stress Test - Chemical MR#: [id number] Acct: [id number] Name: KINGS NEUMANN CIA R Rep #: [id number] : 1945 70 From: Kp Lopez MD [...] Preserved ejection fraction. Kp Lopez MD T: NTS JOB: [id number] 10/07/16 1039 <Electronically signed by Kp Lopez MD> Date ___ Kp Lopez MD CC: Lakisha Sherman; Kp Lopez MD Date Dictated: 10/03/161633 Date Transcribed: 10/03/161633 Spoke Maker: Signed 06-Sep-2016 Bilat Scrn Digital AND CAD Result: Comments: See Note; NOTES: [facility] Imaging Services [address] [place] [address] Verdana 4d Bilat Scrn Digital AND CAD MR#: [id number] Acct: [id number] Name: KAMRYN NEUMANN Rep #: [id number] : 1945 F 70 From: Wayne Rabago MD PCP: Lakisha Sherman Status: PRE CLI Study: Bilat Scrn Digital AND CAD Date of Exam: 09/06/16 Exam# [id number] Ordering Dr: Lakisha Sherman AMMOGRAPHY - BILATERAL [...] delay biopsy of a clinically suspicious abnormality. [id number] Electronically Signed: Wayne Rabago MD at 7:53 EST Tel [phone], Service support [phone], CC: Lakisha Sherman Spoke Maker: Signed 18-Dec-2015 Abdomen/Pelvis without Cont Result: Comments: See Note; NOTES: [facility] Imaging Services [address] [place] [address] Verdana 4d Abdomen/Pelvis without Cont MR#: [id number] Acct: [id number] Name: KAMRYN NEUMANN Rep #: [id number] : 1945 F 70 From: Clifford Khan MD PCP: Lakisha Sherman Status: REG CLI Study: Abdomen/Pelvis without Cont Date of Exam: 12/18/15 Exam# [id number] Ordering Dr: Lakisha Sherman STUDY: CT ABDOMEN [...] MD at 20:40 EDT , Service support [phone], CC: Lakisha Sherman Spoke Maker: Signed 17-Jul-2015 Bilat Scrn Digital AND CAD Result: Comments: See Note; NOTES: [facility] Imaging Services [address] [place] [address] Verdana 4d Bilat Scrn Digital AND CAD MR#: [id number] Acct: [id number] Name: KAMRYN NEUMANN Rep #: [id number] : 1945 F 69 From: Wayne Rabago MD PCP: Shelia Oleary MD Status: REG CLI Study: Bilat Scrn Digital AND CAD Date of Exam: 07/17/15 Exam# [id number] Johan garber Dr: Shelia Oleary MD MAMMOGRAPHY [...] Wayne Rabago MD at 14:38 EST Tel [phone], Service supp ort [phone], CC: Shelia Oleary MD Spoke Maker: Signed 14-Jul-2014 Omar Hinojosa Digital & CAD Result: Comments: See Note; NOTES: [facility] Imaging Services [address] [place] [address] Breast Imaging Report MR#: [id number] Acct: [id number] Name: KAMRYN NEUMANN Rep #: [id number] : 1945 F 68 From: Wayne Rabago MD PCP: Shelia Oleary MD Status: REG CLI Exam# [id number] Ordering Dr: Shelia Oleary MD MAMMOGRAPHY - [...] Wayne Rabago MD at 15:42 EST Tel [phone], Service support [phone], CC: Shelia Oleary MD Spoke Maker: Signed 03-Jul-2013 Dexa Bone Density Study (HP) Result: Comments: See Note; NOTES: [facility] Imaging Services [address] [place] [address] Bone Density Report MR#: [id number] Acct: [id number] Name: SUDEEPKAMRYN Serafin Rep #: [id number] : 1945 F 67 From: Wayne Rabago MD PCP: Status: REG CLI Study: Dexa Bone Density Study (HP) Date of Exam: 07/03/13 Exam# [id number] Ordering Dr: Shelia Oleary MD STUDY: DUAL [...] July 03, 2013 at 1:44:42 PM EDT [phone] Electro nically Signed GP/GP If you are the referring physician and would like to consult with the radiologist who provided this interpretation, please contact Wayne Rabago M.D. at [phone]. If this radiologist is unavailable, you will be directed to another radiologist to assist. If you are a patient with a question regarding this report, please contact your referring physician directly. Professional Interpretation Provided By: Zing, Phone , These documents contain legally protected [...] of these documents. CC: Shelia Oleary MD Spoke Maker: Signed 21-Jun-2013 Bilat Scrn Digital & CAD Result: Comments: See Note; NOTES: [facility] Imaging Services [address] [place] [address] Breast Imaging Report MR#: [id number] Acct: [id number] Name: KAMRYN NEUMANN Rep #: [id number] : 1945 F 67 From: Wayne Rabago MD PCP: Status: REG CLI Exam# [id number] Ordering Dr: Shelia Oleary MD MAMMOGRAPHY - [...] phys ician directly. Professional Interpretation Provided By: Zing, Phone , These documents contain legally protected [...] of these documents. CC: Shelia Oleary MD Spoke Maker: Signed Family History Unknown Family Member Name [...] smoker Vital Signs Date Test Result Details :31 Temperature 97.4 f Comments: Method: Temporal [...] 0.00 cm Results Date Description Value Details 71-Blu-05044:16 CALCIFEDIOL (43974) Comments: PATIENT WAS FASTINGPERFORMED BY: [facility] [id number] Vitamin D, 25-Hydroxy 51.5 ng/mL (Normal) Range: 30.0-100.0 Comments: Vitamin D deficiency has been defined by the [place] of[place] and an Endocrine Society practice guideline as alevel of serum 25-OH vitamin D less than 20 ng/mL (1,2).The Endocrine Society went on to further define vitamin Dinsufficiency as a level between 21 and 29 ng/mL (2).1. IOM ([place] [employer]). 2010. Dietary reference intakes for calcium and D. [place]: The National Academies Press.2. Joe LOBO, Carrie ROBERSON, Mellisa SALMON, et al. Evaluation, treatment, and prevention of vitamin D deficiency: an Endocrine Society clinical practice guideline. JCEM. 2010; 96(7):6721-30. :16 LIPID PANEL (77547) Comments: PATIENT WAS FASTINGPERFORMED BY: [employer] Aiumsy0540 [facility] [id number] LDL/HDL Ratio 1.4 {ratio} (Normal) Range: 0.0-3.2 [...] (THYROID STIMULATING Comments: PATIENT WAS FASTINGPERFORMED BY: [employer] Rpkugt5085 [facility] [id number] HORMONE) (03288) TSH 0.975 {uIU/mL} (Normal) Range: 0.450-4.500 :16 METABOLIC PANEL, COMPREHENSIVE Comments: PATIENT WAS FASTINGPERFORMED BY: [employer] CenterXaediz1151 [facility] [id number] (45015) ALT (SGPT) 14 [iU]/L (Normal) Range: 0-32 [...] Range: 65-99 :16 CBC & PLATELETS (AUTO) (78909) Comments: PATIENT WAS FASTINGPERFORMED BY: [employer] V[address]vzd[address] [facility] [id number] Platelets 193 {x10E3/uL} (Normal) Range: 150-379 RDW 14.2 % (Normal) Range: 12.3-15.4 MCHC 34.7 g/dL (Normal) Range: 31.5-35.7 MCH 33.6 pg (Abnormal) Range: 26.6-33.0 MCV 97 fL (Normal) Range: 79-97 Hematocrit 41.2 % (Normal) Range: 34.0-46.6 Hemoglobin 14.3 g/dL (Normal) Range: 11.1-15.9 RBC 4.25 {x10E6/uL} (Normal) Range: 3.77-5.28 WBC 4.8 {x10E3/uL} (Normal) Range: 3.4-10.8 17-Nhy-084473:20 THROAT CULTURE (06504) Comments: PATIENT NOT FASTINGPERFORMED BY: [employer] CenterWefasr3319 [facility] [id number] Information: SRC:TH Result 1 RRF (Normal) Comments: Routine respiratory dodie Upper Respiratory Culture Final report (Normal) 77-Jmz-28300:59 Rapid Strep Test, Office (97887) Rapid Strep Test, Office Negative (Normal) :39 URINE ANTHONY CULTURE-MARIA T COL Comments: PATIENT NOT FASTINGPERFORMED BY: [facility] [id number] Information: SRC:UC COUNT (22702) Result 1 BETAGF (Abnormal) Comments: Beta hemolytic Streptococcus, group F3,000 Colonies/mLMixed urogenital flora3,000 Colonies/mL Urine Final report (Abnormal) Culture,Comprehensive 97-Szb-08286:28 Urinalysis, Office (64571) UA - LEUKOCYTE ESTERASE Trace (Normal) UA - NITRITE Negative (Normal) URINE UROBILINGN MARIA T TIMED 2 mg/dL (Normal) UA - PROTEIN Negative mg/dL (Normal) UA - PH 7.5 (Normal) UA - BLOOD Negative (Normal) UA - SPECIFIC GRAVITY 1.020 (Normal) UA - KETONES Negative mg/dL (Normal) UA - BILIRUBIN Negative (Normal) UA - GLUCOSE Negative (Normal) :44 CALCIFEDIOL (10642) Comments: PATIENT WAS FASTINGPERFORMED BY: [employer] Tyhqmw1846 [facility] [id number] Vitamin D, 25-Hydroxy 47.5 ng/mL (Normal) Range: 30.0-100.0 Comments: Vitamin D deficiency has been defined by the [place] of[place]icine and an Endocrine Society practice guideline as alevel of serum 25-OH vitamin D less than 20 ng/mL (1,2).The Endocrine Society went on to further define vitamin Dinsufficiency as a level between 21 and 29 ng/mL (2).1. IOM ([place] [employer]). 2010. Dietary reference intakes for calcium and D. [place]: The National Academies Press.2. Joe MF, Carrie NC, Mellisa SALMON, et al. Evaluation, treatment, and prevention of vitamin D deficiency: an Endocrine Society clinical practice guideline. JCEM. 2010; 96(7):1911-30. :44 CBC, PLATELETS & AUT DIFF Comments: PATIENT WAS FASTINGPERFORMED BY: [facility] [id number] Information: NO UR @ UPLOAD (63429) Immature Grans (Abs) 0.0 {x10E3/uL} (Normal) Range: [...] 3.77-5.28 WBC 4.6 {x10E3/uL} (Normal) Range: 3.4-10.8 19-Jul-20178:44 METABOLIC PANEL, COMPREHENSIVE Comments: PATIENT WAS FASTINGPERFORMED BY: [facility]CoCl[facility] CenterYmgddm1657 [facility] [id number] (73312) ALT (SGPT) 13 [iU]/L (Normal) Range: 0-32 [...] (THYROID STIMULATING Comments: PATIENT WAS FASTINGPERFORMED BY: [employer] Wmmhsk4400 [facility] [id number] HORMONE) (40918) TSH 0.771 {uIU/mL} (Normal) Range: 0.450-4.500 :44 LIPID PANEL (40849) Comments: PATIENT WAS FASTINGPERFORMED BY: [employer] Zgchoa5442 [facility] [id number] LDL/HDL Ratio 1.4 {ratio_units} (Normal) Range: 0.0-3.2 Comments: LDL/HDL Ratio Men Women 1/2 Avg.Risk 1.0 1.5 Av g.Risk 3.6 3.2 2X Avg.Risk 6.2 5.0 3X Avg.Risk 8.0 6.1 LDL Cholesterol Calc 81 mg/dL (Normal) Range: 0-99 VLDL Cholesterol Jennifer 29 mg/dL (Normal) Range: 5-40 HDL Cholesterol 60 mg/dL (Normal) Triglycerides 147 mg/dL (Normal) Range: 0-149 Cholesterol, Total 170 mg/dL (Normal) Range: 100-199 75-Yye-15217:55 Basic Metabolic Profile (BMP) Comments: [facility] [address] [place], [place], [address] GAP 6 (Normal) Range: 5-15 CO2 30.0 [...] 7-18 GLU 93 mg/dL (Normal) Range: 70-110 36-Jeo-26513:55 CBC-Complete Blood Cnt No Diff Comments: [facility] [address]rmit[address] [place], [place], [address] ; another doc MPV 9.7 fL (Normal) [...] - *Hepatic Function PanelOrder Date: 09/27/16Order Info: [id number] - *Lipid Profile CC PCPComments: 12 hours fasting, may have water.[place] [address] [place], [id number] VLDL 34 mg/dL (Normal) Range: 5-40 LDL [...] 200-240 mg/dL Borderline >240 mg/dL High Risk :39 Liver Profile Comments: Order Date: 09/27/16Order Info: [id number] - *Hepatic Function PanelOrder Date: 09/27/16Order Info: [id number] - *Lipid Profile CC PCPComments: 12 hours fasting, may have water.[place] [address] [place], [place], [address] ; another doc D BILI 0.14 mg/dL (Normal) Range: 0.00-0.30 T BILI 0.60 mg/dL (Normal) Range: 0.20-1.00 ALT 18 U/L (Normal) Range: 12-78 ALK P 91 U/L (Normal) Range: 45-117 AST 20 U/L (Normal) Range: 15-37 GLOB 3.9 g/dL (Abnormal) Range: 2.3-3.5 ALB 3.5 g/dL (Normal) Range: 3.4-5.0 T PROT 7.4 g/dL (Normal) Range: 6.4-8.2 :30 Pathology Report Comments: PERFORMED BY: [facility] Cyto Gfzsc99719 [facility] [id number] Information: [id number] See MATER Comments: Material submitted: .SHAVE BIOPSY FACEClinician provided ICD-10:L98.9Clinical history: .IRRITATED NEVUS Note (Normal) Diagnosis:SHAVE BIOPSY FACE:AT 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 ONTHE DARRICK FACE IS A RAISED ROTH 0.4 CM LESION. THE SURGICAL MARGIN ISINKED BLACK AND THE SPECIMEN IS BISECTED. THE SPECIMEN IS SUBMITTEDIN CASSETTE(S) A./LMSLMS/LMSCPT .842075 :41 TSH (THYROID STIMULATING Comments: PATIENT WAS FASTINGPERFORMED BY: PATRIA [facility] [address] [facility] [id number] HORMONE) (72985) TSH 1.110 {uIU/mL} (Normal) Range: 0.450-4.500 14-Jun-20168:41 CALCIFEDIOL (56826) Comments: PATIENT WAS FASTINGPERFORMED BY: PATRIA [facility] [id number] Vitamin D, 25-Hydroxy 45.8 ng/mL (Normal) Range: 30.0-100.0 Comments: Vitamin D deficiency has been defined by the [facility] and an Endocrine Society practice guideline as alevel of serum 25-OH vitamin D less than 20 ng/mL (1,2).The Endocrine Society went on to further define vitamin Dinsufficiency as a level between 21 and 29 ng/mL (2).1. IOM ([place] of Medicine). 2010. Dietary reference intakes for calcium and D. [place]: The National AcademLewis [employer].2. Joe MF, Carrie ROBERSON, Mellisa SALMON, et al. Evaluation, treatment, and prevention of vitamin D deficiency: an Endocrine Society clinical practice guideline. JCEM. 2010; 96(7):1911-30. :41 CBC, Platelets & Auto Diff Comments: PATIENT WAS FASTINGPERFORMED BY: [employer] CenterSuqcjp8300 [facility] [id number] (98458) Immature Grans (Abs) 0.0 {x10E3/uL} (Normal) Range: [...] 3.77-5.28 WBC 5.0 {x10E3/uL} (Normal) Range: 3.4-10.8 :41 Lipid Panel (53435) Comments: PATIENT WAS FASTINGPERFORMED BY: [employer] [employer].[facility] Las VegasYuhdrk8377 [facility] [id number] LDL/HDL Ratio 1.6 {ratio_units} (Normal) Range: 0.0-3.2 [...] Cholesterol, Total 194 mg/dL (Normal) Range: 100-199 :41 Metabolic Panel, Comprehensive Comments: PATIENT WAS FASTINGPERFORMED BY: Your Image by Brooke6370 [facility] [id number]; OV 06/27 (84297) ALT (SGPT) 17 [iU]/L (Normal) Range: 0-32 [...] Glucose, Serum 80 mg/dL (Normal) Range: 65-99 67-Rwt-935515:28 Celiac Disease Profile Comments: [facility] (refer to [...] Comments: Please note reference interval changePerformed at: [address] [id number] Director: Itz Hartley PhD, Phone: [phone] 55-Avb-410302:36 Fecal Occult Blood , Office (06966) Fecal Occult Blood , Office (Inhouse) negative (Normal) 13-Pgy-360740:49 HELICOBACTER PYLORI ANTIBODY Comments: PATIENT NOT FASTINGPERFORMED BY: [address] [id number] (22292) H. pylori, IgG Abs <0.9 U/mL (Normal) Range: 0.0-0.8 Comments: Negative <0.9 Indeterminate 0.9 - 1.0 Positive >1.0 50-Hra-362698:49 CBC, Platelets & Auto Comments: PATIENT NOT FASTINGPERFORMED BY: [address] [id number] Information: [id number] Diff (94895) Immature Grans (Abs) 0.0 {x10E3/uL} (Normal) Range: [...] 3.77-5.28 WBC 6.5 {x10E3/uL} (Normal) Range: 3.4-10.8 54-Nda-730768:49 Metabolic Panel, Comprehensive Comments: PATIENT NOT FASTINGPERFORMED BY: [facility] Facmlo0041 [facility] [id number] (82091) ALT (SGPT) 14 [iU]/L (Normal) Range: 0-32 [...] Glucose, Serum 86 mg/dL (Normal) Range: 65-99 39-Enn-543140:15 URINE ANTHONY CULTURE-IDENTIFICATN Comments: PATIENT NOT FASTINGPERFORMED BY: [facility] Syfpzj7799 [facility] [id number] Information: [id number] (99944) Result 1 MUG (Normal) Comments: Mixed urogenital flora2,000 Colonies/mL Urine Culture,Comprehensive Final report (Normal) 12-Cta-24194:46 Urinalysis, Office (06410) UA - LEUKOCYTE ESTERASE Small (Normal) UA - NITRITE Negative (Normal) URINE UROBILINGN MARIA T TIMED Normal mg/dL (Normal) UA - PROTEIN Negative mg/dL (Normal) UA - PH 5 (Abnormal) UA - BLOOD Negative (Normal) UA - SPECIFIC GRAVITY 1.030 (Abnormal) UA - KETONES Moderate mg/dL (Normal) UA - BILIRUBIN Small (Normal) UA - GLUCOSE Negative (Normal) 6-Rgg-085135:02 T4 Total, Thyroxin Comments: SEND RESULTS TO DR. RICK'S OFFICE WELL [facility] Fuaotkflru3762 [facility] CenterGonz[facility] [place], [place], [id number] T4 THYROXIN 8.8 ug/dL (Normal) Range: 4.8-13.9 5-Ene-834376:02 Thyroid Stim Hormone (TSH) Comments: SEND RESULTS TO DR. RICK'S OFFICE WELL [facility] Ndfkfjqptx8307 [place], [place], [id number](396) TSH 1.28 {uIU/mL} (Normal) Range: 0.358-3.74 39-Bej-990415:51 Rapid Strep Test, Office (13409) Rapid Strep Test, Office Negative (Normal) 11-Ibi-107993:35 Throat Culture (64247) Comments: PATIENT NOT FASTINGPERFORMED BY: [facility] Kgkpji6354 [facility] [id number] Information: SRC:THRT [id number] Result 1 RRF (Normal) Comments: Routine respiratory dodie Upper Respiratory Culture Final report (Normal) 13-Aug-20148:31 METABOLIC PANEL, COMPREHENSIVE Comments: PATIENT WAS FASTINGPERFORMED BY: [facility] Kgwuao5865 [facility] [id number] (95051) ALT (SGPT) 11 [iU]/L (Normal) Range: 0-32 [...] Glucose, Serum 86 mg/dL (Normal) Range: 65-99 13-Aug-20148:31 LIPID PANEL (26548) Comments: PATIENT WAS FASTINGPERFORMED BY: LabCoClara Maass Medical CenterQmacyf0198 [facility] [id number] LDL/HDL Ratio 1.5 {ratio_units} (Normal) Range: 0.0-3.2 [...] MANUAL DIFF Comments: PATIENT WAS FASTINGPERFORMED BY: LabMun[facility] Hospital6370 [facility] [id number] Information: [id number] (86158) Immature Grans (Abs) 0.0 {x10E3/uL} (Normal) Range: [...] 4.8 {x10E3/uL} (Normal) Range: 3.4-10.8 :31 TSH (43876) Comments: PATIENT WAS FASTINGPERFORMED BY: PATRIA [employer] SpA6370 [facility] [id number] TSH 1.440 {uIU/mL} (Normal) Range: 0.450-4.500 :03 Metabolic Panel, Comments: recheck in 3 months; PATIENT WAS FASTINGPERFORMED BY: Your Image by Brooke6370 [facility] [id number] Information: [id number] Comprehensive (73040) ALT (SGPT) 13 [iU]/L (Normal) Range: 0-32 [...] Glucose, Serum 81 mg/dL (Normal) Range: 65-99 :03 Lipid Panel (80488) Comments: recheck in 3 months; PATIENT WAS FASTINGPERFORMED BY: [employer]oTek70 [facility] [id number] LDL/HDL Ratio 1.4 {ratio_units} (Normal) Range: 0.0-3.2 LDL Cholesterol Calc 84 mg/dL (Normal) Range: 0-99 VLDL Cholesterol Jennifer 43 mg/dL (Abnormal) Range: 5-40 HDL Cholesterol 62 mg/dL (Normal) Comments: According to ATP-III Guidelines, HDL-C >59 mg/dL is considered anegative risk factor for CHD. Triglycerides 215 mg/dL (Abnormal) Range: 0-149 Cholesterol, Total 189 mg/dL (Normal) Range: 100-199 :44 Urinalysis, Office (83279) UA - BILIRUBIN Negative (Normal) UA - [...] manual diff Comments: PATIENT WAS FASTINGPERFORMED BY: [employer] CenterAhgztx6710 [facility] [id number] Information: [id number] (97138) Immature Grans (Abs) 0.0 {x10E3/uL} (Normal) Range: [...] 5.1 {x10E3/uL} (Normal) Range: 3.4-10.8 :15 Ferritin (07770) Comments: PATIENT WAS FASTINGPERFORMED BY: [employer] VegasKunsbp8778 [facility] [id number] Ferritin, Serum 43 ng/mL (Normal) Range: 15-150 :15 Lipid Panel (98310) Comments: PATIENT WAS FASTINGPERFORMED BY: [employer] Bxmpct7669 [facility] [id number] LDL/HDL Ratio 2.3 {ratio_units} (Normal) Range: 0.0-3.2 [...] Panel, Comprehensive Comments: PATIENT WAS FASTINGPERFORMED BY: [employer].[facility] CenterXnzuuk2806 [facility] [id number] (65095) ALT (SGPT) 13 [iU]/L (Normal) Range: 0-32 [...] Glucose, Serum 83 mg/dL (Normal) Range: 65-99 17-Jun-20139:15 CALCIFIDIOL (76985) VIT D 25 Comments: PATIENT WAS FASTINGPERFORMED BY: [facility]6370 [facility] [id number] Vitamin D, 25-Hydroxy 32.6 ng/mL (Normal) Range: 30.0-100.0 Comments: Vitamin D deficiency has been defined by the [place] ofMedicine and an Endocrine Society practice guideline as alevel of serum 25-OH vitamin D less than 20 ng/mL (1,2).The Endocrine Society went on to further define vitamin Dinsufficiency as a level between 21 and 29 ng/mL (2).1. IOM ([place] of Medicine). 2010. Dietary reference intakes for calcium and D. [place]: The National Academies Press.2. Joe LOBO, Carrie [place], Mellisa SALMON, et al. Evaluation, treatment, and prevention of vitamin D deficiency: an Endocrine Society clinical practice guideline. JCEM. 2010; 96(7):1911-30. 17-Jun-20139:15 TSH (02215) Comments: PATIENT WAS FASTINGPERFORMED BY: [facility] Ufypql5631 [facility] [id number] TSH 1.050 {uIU/mL} (Normal) Range: 0.450-4.500 0-Dbk-205469:30 BILAT SCRN DIGITAL & CAD Radiology Report [...] Rabago M.D.June 18, 2012 at 12:43:13 PM [id number] Signed GP/GP If you are the referring physician and would like to consult with theradiologist who provided this interpretation, please contact Melody Underwood at [phone]. If this radiologist is unavailable, youwill be directed to another radiologist to assist. If you are a patient with a question regarding this report, pleasecontactyour referring physician directly. Professional Interpretation Provided By: Zing, Phone , These do cuments contain legally [...] destructionofthese documents. Dictated on 06/18/12 1030 by Gem GILL,vEeretterieleTranscribed on 06/18/12 1248 by ITS IMPORTSign by Wayne Rabago MD on 06/18/12 1250 Sign by: Wayne Rabgao MD 07-May-2012 DDIMQ 1.62 {FEUug/mL} Range: 0.22-0.48 11:21 (Abnormal) Comments: D-Dimer ELEVATED: Additional studies and clinicalassessments are indicated to conclude diagnosis of:Deep Vein Thrombosis (DVT) or Pulmonary Embolism (PE)CRITICAL VALUE REPEATED AND VERIFIED. CALLED TO Aquilino JARRETT05/07/12 LIZA ROSENTHAL.RESULTS READ BACK BY SONAM EDWARDS . 07-May-2012 K 3.7 mmol/L Range: 3.5-5.1 11:21 (Normal) 07-May-2012 MG 2.1 mg/dL Range: 1.8-2.4 11:21 (Normal) 90-Ula-61706:00 CHEST WITH CONTRAST Radiology Report See Note [...] Cronin D.O.May 07, 2012 at 8:20:03 PM [id number] Signed BE/BE If you are the referring physician and would like to consult with theradiologist who provided this interpretation, please contact Moises Cronin D.O. at [phone]. If this radiologist is unavailable, you will bedirected to another radiologist to assist. If you are a patient with a question regarding this report, pleasecontactyour referring physician directly. Professional Interpretation Provided By: Zing, Phone , Thes e documents contain legally [...] on 05/07/122035 Sign by: Moises Cronin MD 02-Dws-174472:23 Hemoglobin Glyclated (HGB A1C) (20053) HEMOGLOBIN GLYCLATED (HGB A1C) 5.4 % (Normal) Range: 4.6 - 7.1 25-Iuu-330373:32 MYOCARD PERF STRESS/REST MULT Radiology Report See [...] The patient was injected with 32.0 mCi iyOl62w Cardiolite and subsequently stress SPECT Cardiolite nuclear [...] on 04/24/12 1432 by Benita CHRISTY by Gerald Bell MD on 04/24/12 1517 Sign by: Gerald Bell MD 45-Pfd-78622:36 Metabolic Panel, Basic Comments: re check 2 weeks; PATIENT NOT FASTINGPERFORMED BY: LabCoClara Maass Medical CenterCyixbn1630 [facility] [id number] Information: [id number] (57631) Calcium, Serum 9.8 mg/dL (Normal) Range: 8.6-10.2 [...] Glucose, Serum 88 mg/dL (Normal) Range: 65-99 8-Cyi-127312:34 METABOLIC PANEL, COMPREHENSIVE Comments: PATIENT NOT FASTINGPERFORMED BY: [facility] Fyjjmy7995 [facility] [id number] (15210) ALT (SGPT) 14 [iU]/L (Normal) Range: 0-40 [...] Glucose, Serum 102 mg/dL (Abnormal) Range: 65-99 :34 CBC WITH MANUAL DIFF Comments: PATIENT NOT FASTINGPERFORMED BY: [employer].[facility] CenterTjotbb1627 [facility] [id number] Information: [id number] (94292) Immature Grans (Abs) 0.0 {x10E3/uL} (Normal) Range: [...] 3.77-5.28 WBC 5.5 {x10E3/uL} (Normal) Range: 4.0-10.5 :34 TSH (40610) Comments: PATIENT NOT FASTINGPERFORMED BY: [employer].[facility] CenterLkuqgv2708 [facility] [id number] TSH 1.040 {uIU/mL} (Normal) Range: 0.450-4.500 :22 Metabolic Panel, Basic Comments: PATIENT NOT FASTINGPERFORMED BY: LabCoClara Maass Medical CenterRdkcay7701 [facility] [id number] Information: [id number] (50528) Calcium, Serum 9.3 mg/dL (Normal) Range: 8.6-10.2 [...] 88 mg/dL (Normal) Range: 65-99 :08 TSH (40923) Comments: PATIENT NOT FASTINGPERFORMED BY: LabCoClara Maass Medical CenterZhsgfj4510 [facility] [id number] TSH 0.597 {uIU/mL} (Normal) Range: 0.450-4.500 :08 METABOLIC PANEL, COMPREHENSIVE Comments: PATIENT NOT FASTINGPERFORMED BY: LabCoClara Maass Medical CenterTtaugo7239 [facility] [id number] (93542) ALT (SGPT) 16 [iU]/L (Normal) Range: 0-40 [...] Glucose, Serum 110 mg/dL (Abnormal) Range: 65-99 15-Mar-20129:08 CBC WITH MANUAL DIFF Comments: PATIENT NOT FASTINGPERFORMED BY: LabCoClara Maass Medical CenterRojhcf4460 [facility] [id number] Information: [id number] (58819) Immature Grans (Abs) 0.0 {x10E3/uL} (Normal) Range: [...] Microscopic Examination Comments: PATIENT WAS FASTINGPERFORMED BY: PATRIA [facility] Dogsmo1102 [facility] [id number] Bacteria None seen (Normal) Mucus Threads Present (Normal) Epithelial Cells (non renal) 0-10 {/hpf} (Normal) Range: 0 - 10 RBC 0-3 {/hpf} (Normal) Range: 0 - 3 WBC 0-5 {/hpf} (Normal) Range: 0 - 5 :37 Pathology Report Comments: PERFORMED BY: MARIO [facility] [place] Ncyv03331 [facility] [id number] BY: Beckie [facility] [place] Gatfdeafy395 [facility] [id number] 2069Clinical Information: [id number] See MATER Comments: Material submitted: .BACKClinical history: .ATYPICAL MOLE WITH JAMIA CYST Note (Normal) Diagnosis:EPIDERMOID CYST..COMMENT:MARGINS FREE OF TUMOR.[facility]08/16/2011Addendum: .MULTIPLE RECUTS WERE MADE INTO THE BLOCK [...] CONTAIN THE FIVE REMAININGSECTIONS.XEC/JASPathologist provided ICD-9:706.2, 216.5CPT .628740 13-Dec-20118:32 TSH (18382) Comments: PATIENT WAS FASTINGPERFORMED BY: [facility] Gawrbe8663 [facility] [id number] TSH 1.170 {uIU/mL} (Normal) Range: 0.450-4.500 13-Dec-20118:32 URINALYSIS, W/ MICRO (21730) Comments: PATIENT WAS FASTINGPERFORMED BY: OMsignal [facility] Tipvlt6906 [facility] [id number] Microscopic Examination See below: (Normal) Nitrite, Urine Negative (Normal) Urobilinogen,Semi-Qn 0.2 mg/dL (Normal) Range: 0.0-1.9 Bilirubin Negative (Normal) Occult Blood Negative (Normal) Ketones Negative (Normal) Glucose Negative (Normal) Protein Negative (Normal) WBC Esterase 1+ (Abnormal) Appearance Clear (Normal) Urine-Color Yellow (Normal) pH 7.0 (Normal) Range: 5.0-7.5 Specific Chester 1.017 (Normal) Range: 1.005-1.030 13-Dec-20118:32 METABOLIC PANEL, COMPREHENSIVE Comments: PATIENT WAS FASTINGPERFORMED BY: [facility] Qfdqfv9878 [facility] [id number] (40663) ALT (SGPT) 14 [iU]/L (Normal) Range: 0-40 [...] mg/dL (Normal) Range: 65-99 :32 LIPID PANEL (64530) Comments: PATIENT WAS FASTINGPERFORMED BY: InnobitsCoClara Maass Medical CenterSynife1384 [facility] [id number] LDL Cholesterol Calc 100 mg/dL (Abnormal) Range: [...] MANUAL DIFF Comments: PATIENT WAS FASTINGPERFORMED BY: LabWhichSocial.com Cdhrkv4107 [facility] [id number] Information: [id number] (92775) Immature Grans (Abs) 0.0 {x10E3/uL} (Normal) Range: [...] 3.80-5.10 WBC 4.2 {x10E3/uL} (Normal) Range: 4.0-10.5 79-Bok-131579:31 Thin prep Pap Comments: Source.............Cervical;EndocervicalLMP / Prev Treat...CRA=[id number]. of containers..01 CYTYC Thin Prep VialPATIENT NOT FASTINGPERFORMED BY: [facility] [address] [place] [address] (41446) [id number] Information: [id number] Note: PAPSMR (Normal) Comments: The Pap smear [...] PRESENT.THIS SPECIMEN WAS RESCREENED PART OF OUR OCEANOLOGIST PROGRAM.Satisfactory for e valuation. Endocervical component may not bedistinguished in cases of atrophy.Allie Villafuerte, Manager [employer] ([facility])Parul Singh, Supervisory Manager [employer] ([facility]) 13-Twe-180341:27 KIDNEY Radiology Report See Note (Normal) Comments: [...] renal cysts. Dictated on 07/04/11 0952 by Aristides Rabago MDranscribed on 07/05/11 1104 by ITS IMPORTSign by Wayne Rabago MD on 07/05/11 1105 Sign by: Wayne Rabago MD 2-Jiz-703343:26 BILAT SCRN DIGITAL & CAD Radiology Report [...] clinically suspiciousabnormality. Dictated on 06/15/11 1449 by Aristides Rabago MDranscribed on 06/15/11 1525 by ITS IMPORTSign by Wayne Rabago MD on 06/15/11 15 26 Sign by: Wayne Rabago MD :46 HEPATIC FUNCTION PANEL Comments: PATIENT WAS FASTINGPERFORMED BY: Your Image by Brooke6370 7signal SolutionsCritical access hospital [id number] Information: [id number]; appt 06/30/11 (10656) ALT (SGPT) 12 [iU]/L (Normal) Range: 0-40 AST (SGOT) 19 [iU]/L (Normal) Range: 0-40 Alkaline Phosphatase, S 86 [iU]/L (Normal) Range: 25-165 Bilirubin, Direct 0.17 mg/dL (Normal) Range: 0.00-0.40 Bilirubin, Total 0.6 mg/dL (Normal) Range: 0.0-1.2 Albumin, Serum 4.5 g/dL (Normal) Range: 3.6-4.8 Protein, Total, Serum 6.8 g/dL (Normal) Range: 6.0-8.5 :46 LIPID PANEL (64626) Comments: PATIENT WAS FASTINGPERFORMED BY: [employer]70 7signal SolutionsCritical access hospital [id number] LDL/HDL Ratio 1.3 {ratio_units} Range: 0.0-3.2 (Normal) [...] Serum 63 U/L (Normal) Comments: PERFORMED BY: [employer] (Droppy)[facility] access hospital [id number] 10:29 Range: 31-124 89-Ogt-155707:29 Celiac Disease Comprehensive Comments: PERFORMED BY: VeriTweetW[facility] [id number] Immunoglobulin A, Qn, Serum 301 mg/dL (Normal) [...] - 30 Moderate to Strong Positive >30 40-Tta-365782:29 H pylori, IgM, IgG, IgA Ab Comments: PERFORMED BY: Your Image by Brooke6370 LaunchPointWake [facility] [id number] H.pylori, IgM ABS <0.80 {index} (Normal) Range: [...] <0.9 Indeterminate 0.9 - 1.0 Positive >1.0 00-Wlz-830523:29 Hepatic Function Panel (7) Comments: PERFORMED BY: Your Image by Brooke6370 [facility] [id number] Alkaline Phosphatase, S 99 [iU]/L (Normal) Range: 25-165 ALT (SGPT) 14 [iU]/L (Normal) Range: 0-40 AST (SGOT) 20 [iU]/L (Normal) Range: 0-40 Albumin, Serum 4.6 g/dL (Normal) Range: 3.6-4.8 Bilirubin, Direct 0.25 mg/dL Range: 0.00-0.40 (Normal) Bilirubin, Total 0.8 mg/dL (Normal) Range: 0.0-1.2 Protein, Total, Serum 7.4 g/dL (Normal) Range: 6.0-8.5 Lipase, Serum 37 U/L (Normal) Comments: PERFORMED BY: [employer] Pixnfa8772 [facility] [id number] 0:29 Range: 0-59 05-Khx-39606:00 DEXA BONE DENSITY STUDY (HP) Radiology Report See Note (Normal) Comments: CLINICAL:Postmenopausal EXAMINATION:DUAL ENERGY X-RAY ABSORPTIOMETRY / DEXA. TECHNIQUE:Bone Density Measurements (BMD) of lumbar spine and bilateral hips wereobtained using a [employer]Venue.. COMPARISON:July 24, 2007 FINDINGS: Lumbar Spine (L1-L4): [...] Melendez on 09/12/10351 Sign by: Vipin Melendez 14-Mph-922649:54 PELVIC (NON ) Radiology Report See Note [...] by ITS IMPORTSign by Sonja Sr on 09/10/102036 Sign by: Sonja Sr 55-Fym-44774:00 TRANSVAGINAL WITH ARTERIAL CHARLES Radiology Report See [...] Sonja Sr on 09/13/10 1401 Sign by: RembertoSonja 46-Evu-506890:03 ABDOMEN/PELVIS WITH CONTRAST Radiology Report See Note [...] d. Please see complete discussionabove. Dictated on 08/31/101239 by SADE FLOREZTranscribed on 08/31/101239 by INTERFACE,MCKESSONSign by SADE FLOREZ on 09/01/10 0720 Sign by: SADE FLOREZ :38 CBCD ABSOLUTE NEUT 3.6 3/uL (Normal) Range: [...] SED RATE 29 mm/h (Normal) Range: 0-30 20-Zis-12675:29 Urinalysis, Office (78932) UA - BILIRUBIN Small (Normal) UA - BLOOD Negative (Normal) UA - GLUCOSE Negative (Normal) UA - KETONES Small mg/dL (Normal) UA - LEUKOCYTE ESTERASE Small (Normal) UA - NITRITE Negative (Normal) UA - PH 6.0 (Normal) UA - PROTEIN 30 mg/dL (Normal) UA - SPECIFIC GRAVITY 1.020 (Normal) URINE UROBILINGN MARIA T TIMED Normal mg/dL (Normal) 1-Eas-212393:19 Microscopic Examination Comments: PATIENT WAS FASTINGPERFORMED BY: [employer] [facility] [id number] Bacteria None seen (Normal) Mucus Threads Present (Normal) Epithelial Cells (non renal) 0-10 {/hpf} (Normal) Range: 0 - 10 RBC 0-3 {/hpf} (Normal) Range: 0 - 3 WBC 0-5 {/hpf} (Normal) Range: 0 - 5 1-Oac-792969:19 Lipid Panel (09166) Comments: PATIENT WAS FASTINGPERFORMED BY: Gamersband RoadDublin [place] [id number] LDL Cholesterol Calc 139 mg/dL (Abnormal) Range: 0-99 LDL/HDL Ratio 2.3 {ratio_units} (Normal) Range: 0.0-3.2 HDL Cholesterol 60 mg/dL (Normal) Comments: According to ATP-III Guidelines, HDL-C >59 mg/dL is considered anegative risk factor for CHD. VLDL Cholesterol Jennifer 39 mg/dL (Normal) Range: 5-40 Cholesterol, Total 238 mg/dL (Abnormal) Range: 100-199 Triglycerides 197 mg/dL (Abnormal) Range: 0-149 6-Gwt-357980:19 URINALYSIS (95531) Comments: PATIENT WAS FASTINGPERFORMED BY: InnobitsShannon Ville [id number] [facility] [id number] Bilirubin Negative (Normal) Microscopic Examination See below: (Normal) Nitrite, Urine Negative (Normal) Occult Blood Negative (Normal) Urobilinogen,Semi-Qn 0.2 mg/dL (Normal) Range: 0.0-1.9 Glucose Negative (Normal) Ketones Negative (Normal) Protein Negative (Normal) WBC Esterase 1+ (Abnormal) Appearance Clear (Normal) pH 8.0 (Abnormal) Range: 5.0-7.5 Specific Chester 1.019 (Normal) Range: 1.005-1.030 Urine-Color Yellow (Normal) 0-Rsz-258129:19 Metabolic Panel, Comprehensive Comments: PATIENT WAS FASTINGPERFORMED BY: [facility]6370 [facility] [id number] (14990) ALT (SGPT) 12 [iU]/L (Normal) Range: 0-40 [...] Glucose, Serum 93 mg/dL (Normal) Range: 65-99 5-Jmq-813592:19 CBC with manual diff Comments: PATIENT WAS FASTINGPERFORMED BY: LabMun[facility] Hospital6370 [facility] [id number] Information: [id number] (92352) Immature Grans (Abs) 0.0 {x10E3/uL} (Normal) Range: [...] 3.80-5.10 WBC 5.1 {x10E3/uL} (Normal) Range: 4.0-10.5 5-Fde-537761:19 TSH (48672) Comments: PATIENT WAS FASTINGPERFORMED BY: LabM[facility] Hospital6370 [facility] [id number] TSH 1.020 {uIU/mL} (Normal) Range: 0.450-4.500 6-Yyk-705251:30 UNILAT LT DIA DIGITAL & CAD Radiology Report See Note (Normal) Comments: Exam Number: [id number] MAMMOGRAPHY - UNILATERAL DIAGNOSTIC: BREAST INDICATION:Six month [...] of attaching a ResultCode to this exam.ADDENDUM: [id number] HPBI/MUDDL Reported By: SADE FLOREZ M.D. 62-Vij-666130:53 Microscopic Examination Comments: PATIENT WAS FASTINGPERFORMED BY: [facility] Micwxz5564 [facility] [id number] Bacteria Few (Normal) Mucus Threads Present (Normal) Epithelial Cells (non renal) 0-10 {/hpf} (Normal) Range: 0 - 10 RBC 0-3 {/hpf} (Normal) Range: 0 - 3 WBC 6-10 {/hpf} (Abnormal) Range: 0 - 5 5-Fex-298376:36 BILAT DIAG DIGITAL & CAD Radiology Report See Note (Normal) Comments: Exam Number: [id number] MAMMOGRAM, BILATERAL DIAGNOSTIC DIGITAL AND CAD HISTORYBilateral [...] mammograms werealso examined with computer-aided detection software (dotSyntax, Tributes.com, BrightLocker.). Reported By: SADE FLOREZ M.D. 82-Yco-889240:32 [facility] DIA DIGITAL & CAD Radiology Report See Note (Normal) Comments: Exam Number: [id number] MAMMOGRAM, UNILATERAL RIGHT DIAGNOSTIC DIGITAL AND CAD [...] werealso examined with computer-aided detection softw are (InboundWriter.). Reported By: SADE FLOREZ M.D. :53 T4, FREE (THYROXINE) (62369) Comments: PATIENT WAS FASTINGPERFORMED BY: [facility] Ewqzcp6127 [address] [facility] [place] [id number] T4,Free(Direct) 0.93 ng/dL (Normal) Range: 0.82-1.77 :53 T3, FREE (TRIDOTHYRONINE) (67746) Comments: PATIENT WAS FASTINGPERFORMED BY: Lab[facility] Geoeoy3821 [address] [facility] [place] [id number] Triiodothyronine,Free,Serum 2.7 pg/mL (Normal) Range: 2.0-4.4 :53 TSH (93810) Comments: PATIENT WAS FASTINGPERFORMED BY: [facility] Jrctbp7563 [facility] [facility] [place] [id number] TSH 0.687 {uIU/mL} (Normal) Range: 0.450-4.500 :53 METABOLIC PANEL, COMPREHENSIVE Comments: PATIENT WAS FASTINGPERFORMED BY: [employer] Yavyfn3372 [address] [facility] [place] [id number] (59752) Alkaline Phosphatase, S 88 [iU]/L (Normal) Range: [...] Glucose, Serum 86 mg/dL (Normal) Range: 65-99 16-Ypb-650116:53 URINALYSIS W/O MICRO (32371) Comments: PATIENT WAS FASTINGPERFORMED BY: [employer] (Droppy)[facility] access hospital [id number] Microscopic Examination See below: (Normal) Nitrite, Urine Negative (Normal) Urobilinogen,Semi-Qn 0.2 mg/dL (Normal) Range: 0.0-1.9 Bilirubin Negative (Normal) Glucose Negative (Normal) Ketones Negative (Normal) Occult Blood Negative (Normal) Protein Trace (Normal) Appearance Clear (Normal) pH 8.0 (Abnormal) Range: 5.0-7.5 Specific [place] 1.025 (Normal) Range: 1.005-1.030 Urine-Color Yellow (Normal) WBC Esterase Trace (Abnormal) 65-[id number] LIPID PANEL ([id number]) Comments: PATIENT WAS FASTINGPERFORMED BY: [email or web address] ([email or web address])[facility] [place] [id number] LDL/HDL Ratio 1.3 {ratio_units} (Normal) Range: 0.0-3.2 HDL Cholesterol 63 mg/dL (Normal) Comments: According to ATP-III Guidelines, HDL-C >59 mg/dL is considered anegative risk factor for CHD. LDL Cholesterol Calc 82 mg/dL (Normal) Range: 0-99 VLDL Cholesterol Jennifer 39 mg/dL (Normal) Range: 5-40 Cholesterol, Total 184 mg/dL (Normal) Range: 100-199 Triglycerides 193 mg/dL (Abnormal) Range: 0-149 08-Rbv-227179:53 CBC WITH MANUAL DIFF Comments: PATIENT WAS FASTINGPERFORMED BY: [id number] [facility] [id number] Information: [id number] ([id number]) Immature Grans (Abs) 0.0 {x10E3/uL} (Normal) Range: [...] 3.80-5.10 WBC 4.7 {x10E3/uL} (Normal) Range: 4.0-10.5 :07 Hepatic Function Panel (7) Comments: PATIENT WAS FASTINGPERFORMED BY: [facility] [id number] [facility] [id number] Albumin, Serum 4.2 g/dL (Normal) Range: 3.6-4.8 Alkaline Phosphatase, S 95 [iU]/L (Normal) Range: 25-165 ALT (SGPT) 13 [iU]/L (Normal) Range: 0-40 AST (SGOT) 19 [iU]/L (Normal) Range: 0-40 Bilirubin, Direct 0.12 mg/dL (Normal) Range: 0.00-0.40 Bilirubin, Total 0.4 mg/dL (Normal) Range: 0.1-1.2 Protein, Total, Serum 6.8 g/dL (Normal) Range: 6.0-8.5 5-Urk-530141:07 Lipid Panel With LDL/HDL Comments: PATIENT WAS FASTINGPERFORMED BY: [facility] [id number] [facility] [id number] Ratio Cholesterol, Total 195 mg/dL (Normal) Range: 100-199 HDL Cholesterol 58 mg/dL (Normal) Comments: According to ATP-III Guidelines, HDL-C >59 mg/dL is considered anegative risk factor for CHD. LDL Cholesterol Calc 98 mg/dL (Normal) Range: 0-99 LDL/HDL Ratio 1.7 {ratio_units} (Normal) Range: 0.0-3.2 Triglycerides 196 mg/dL (Abnormal) Range: 0-149 VLDL Cholesterol Jennifer 39 mg/dL (Normal) Range: 5-40 37-Hgb-079449:26 UNILAT RT DIAG DIGITAL & CAD Radiology Report See Note (Normal) Comments: Exam Number: [id number] MAMMOGRAM, UNILATERAL RIGHT DIAGNOSTIC DIGITAL AND CAD [...] mammograms werealso examined with computer-aided detection software ([employer], [employer] Reported By: SADE FLOREZ M.D. 88-Xyj-027522:43 Thin prep Pap Comments: Source.............Cervical;EndocervicalLMP / Prev Treat...KSV=[id number]. of containers..01 CYTYC Thin Prep VialPATIENT NOT FASTINGClinical Information: ADD [id number] ([id number]) PERFORMED BY: [facility] [id number] . . (Normal) DIAGNOSIS: SPRCS (Normal) Comments: NEGATIVE FOR INTRAEPITHELIAL LESION AND MALIGNANCY.CELLULAR CHANGES ASSOCIATED WITH ATROPHY ARE PRESENT.THIS SPECIMEN WAS RESCREENED PART OF OUR OCEANOLOGIST PROGRAM.Satisfactory for e valuation. Endocervical and/or squamous metaplasticcells (endocervical component) are present.Aubree Coe, Manager [employer] (ASCP)Patricia Maria, Supervisory Manager [employer] (AS[employer]) Note: PAPSMR (Normal) Comments: The Pap [...] resulttherefore, no HPV testing was performed. . 60-Pxt-00684:27 BILAT SCRN DIGITAL & CAD Radiology Report See Note (Normal) Comments: Exam Number: [id number] MAMMOGRAM, BILATERAL SCREENING DIGITAL AND CAD HISTORYRoutine [...] mammograms werealso examined with computer-aided detection software ([employer], [employer] Reported By: SADE FLOREZ M.D. :03 TSH ([id number]) Comments: PATIENT WAS FASTINGPERFORMED BY: [facility] [id number] TSH 1.126 {uIU/mL} (Normal) Range: 0.450-4.500 25-Jpj-139167:03 MICROALBUMIN: CREATININE RATIO Comments: PATIENT WAS FASTINGPERFORMED BY: [facility] [id number] ([id number]) AND ([id number]) Microalb/Creat Ratio <.7 {ug/mg_creat} (Normal) Range: 0.0-30.0 Creatinine, Urine 151.7 mg/dL (Normal) Range: 15.0-278.0 Microalbum.,U,Random <1.0 ug/mL (Normal) Range: 0.0-17.0 :03 METABOLIC PANEL, COMPREHENSIVE Comments: PATIENT WAS FASTINGPERFORMED BY: [facility] [id number] ([id number]) A/G Ratio 1.4 (Normal) Range: 1.1-2.5 Albumin, [...] Serum 90 mg/dL (Normal) Range: 65-99 If -[place] >59 mL/min/1.73 Comments: Note: Persistent reduction for [...] Sodium, Serum 141 mmol/L (Normal) Range: 135-145 :03 LIPID PANEL (58927) Comments: PATIENT WAS FASTINGPERFORMED BY: [employer] [place] [id number] Cholesterol, Total 259 mg/dL (Abnormal) Range: 100-199 [...] Cholesterol Jennifer 40 mg/dL (Normal) Range: 5-40 75-Xke-872621:03 CBC WITH MANUAL DIFF (15988) Comments: PATIENT WAS FASTINGClinical Information: ADD DRAW FEE [id number] ADD J 19743 PERFORMED BY: [employer] [place] [id number] Baso (Absolute) 0.0 {x10E3/uL} (Normal) Range: 0.0-0.2 [...] 11.7-15.0 WBC 4.5 {x10E3/uL} (Normal) Range: 4.0-10.5 88-Iwo-163564:49 DEXA BONE DENSITY STUDY () Radiology Report See Note (Normal) Comments: Exam Number: [id number] BONE DENSITOMETRY HISTORYScreening for osteoporosis. TECHNIQUE Bone [...] mg/dL VLDL 29 mg/dL (Normal) Range: 5-40 05-Alp-599362:37 TSH 0.76 {uIU/mL} (Normal) Range: 0.34-4.82 :58 HIP, MIN 2 VIEWS ([place]) Radiology Report See Note (Normal) Comments: Exam Number: [id number] AP AND LATERAL RIGHT HIP Being done [...] MANDEL M.D. :58 HIP, MIN 2 VIEWS ([place]) Radiology Report See Note (Normal) Comments: Exam Number: [id number] AP AND LATERAL RIGHT HIP Being done [...] '3', OR 'R' FOR RANDOM: 3 Range: :18 CPKMB < 0.5 ng/mL (Normal) Comments: [...] 1.49 INDETERMINANT > OR = 1.50 SUGGEST [place] :05 CPK TOTAL 58 U/L (Normal) Comments: Precautions*: NOT APPLICABLEINDICATE CK '1', '2', '3', OR 'R' FOR RANDOM: 2 Range: :05 CPKMB 0.6 ng/mL (Normal) Comments: Precautions*: [...] 1.49 INDETERMINANT > OR = 1.50 SUGGEST LA 2-Wkz-756360:40 TROPONIN-I < 0.04 ng/mL (Normal) Comments: Precautions*: NOT APPLICABLE Comments: TROPONIN-I EXPECTED VALUES < 0.50 NEGATIVE 0.50 - 1.49 INDETERMINANT > OR = 1.50 SUGGEST [place] :07 MICHAEL 62 U/L (Normal) Comments: COMMENTS: BED Precautions*: NOT APPLICABLE Range: 25-115 :07 BMP Comments: COMMENTS: BED Precautions*: NOT APPLICABLE BUN 22 mg/dL (Abnormal) Range: [...] (Normal) Range: 136-145 :07 CBCD Comments: COMMENTS: BED Precautions*: NOT APPLICABLE BASO% 0.2 % (Normal) Range: [...] : LIPASE 277 U/L (Normal) Comments: COMMENTS: Preutions*: NOT APPLICABLE Range: 114-286 : LIVER Comments: COMMENTS: s*: NOT APPLICABLE ALB 3.7 g/dL (Normal) Range: 3.4-5.0 ALK P 86 U/L (Normal) Range: 50-136 ALT 31 [iU]/L (Normal) Range: 30-65 AST 14 U/L (Abnormal) Range: 15-37 D BILI 0.09 mg/dL (Normal) Range: 0.00-0.30 T BILI 0.39 mg/dL (Normal) Range: 0.00-1.00 T PROT 7.5 g/dL (Normal) Range: 6.4-8.2 : ,SERUM Comments: COMMENTS: *: NOT APPLICABLE HCGSQUAL SeeNote m[iU]/mL (Normal) Comments: Result: NEGATIVE : TROPONIN-I < 0.04 ng/mL (Normal) Comments: COMMENTS: *: NOT APPLICABLE Comments: TROPONIN-I EXPECTED VALUES < 0.50 NEGATIVE 0.50 - 1.49 INDETERMINANT > OR = 1.50 SUGGEST LA :33 COMP METABOLIC A/G 1.1 {RATIO} (Normal) [...] lobectomy and isthumsectomy from 11/06/02 performed at [place], [place],(03-HINES -[id number]) with a diagnosis of thyroid lobectomy with [...] block preparation. Submitted for cytology study. / JAZMINE:derik 07/19/06 TC:5 REPORT SIGNED: JACQUELINE YOO 07/20/06:25 [...] Plan of Care Name Dates Details Instructions BMI 35.0-35.9,adult : Follow up after lab [...] Lab Indication: Hypertension Atrial fibrillation : Reviewed Net Coordinator Letter Indication: Atrial fibrillation Atrial fibrillation : [...] : Pap/Pelvic/Bimanual/Rectal/Breast Exam was done. Indication: WWV (Renamed from WWV) Generalized anxiety disorder : FOLLOW UP IN [...] pain, acute, left upper quadrant : Reviewed Net Coordinator Letter Indication: Abdominal pain, acute, left upper quadrant Abdominal pain, acute, left upper quadrant : Reviewed Lab Indication: Abdominal pain, acute, left upper quadrant Abdominal pain, acute, left upper quadrant : Reviewed Diagnostic Tests Indication: Abdominal pain, acute, left upper quadrant Hypercalcemia : Reviewed Lab Indication: Hypercalcemia Hypercalcemia : Reviewed Diagnostic Tests Indication: Hypercalcemia WWV V73.21 (Renamed from [employer]) : Shingles Vaccine Education 2005 Indication: WWV V73.21 (Renamed from WWV) WWV V73.21 (Renamed from WWV) : Well Female Maintenance (KF) Indication: WWV V73.21 (Renamed from WWV) WWV V73.21 (Renamed from WWV) : Pap/Pelvic/Bimanual/Rectal/Breast Exam was done. Indication: WWV V73.21 (Renamed from [employer] SystemV) Hyperglyceridemia : FOLLOW UP IN 3 MONTHS Indication: Hyperglyceridemia Planned Observations VITAMIN B12 AND FOLATES (60896)Indication: Hair loss On: 75-Xcp-34672:20 Request FECAL OCCULT- Tubes sent home (44305)Indication: Encounter for screening for malignant neoplasm of colon (Renamed from Special screening for malignant neoplasms, colon) On: 40-Scy-522360:31 Request URINE ANTHONY CULTURE-MARIA T COL COUNT (44784)Indication: Abdominal pain, acute, generalized On: 91-Hts-33273:44 Request Metabolic Panel, Comprehensive (01427)Indication: Mixed Hyperlipidemia On: :30 Request Comments: recheck in 3 months Lipid Panel (95737)Indication: Mixed Hyperlipidemia On: :30 Request Comments: recheck in 3 months LIPID PANEL (87185)Indication: Hyperglyceridemia On: 09-Uge-353542:18 Request HEPATIC FUNCTION PANEL (61970)Indication: Hyperglyceridemia On: 66-Yxj-762010:18 Request Potassium Serum (97071)Indication: Atrial fibrillation On: 18-Gpl-427972:53 Request D-Dimer (62503)Indication: Atrial fibrillation On: 82-Sgf-639304:46 Request Magnesium (00406)Indication: Atrial fibrillation On: 09-Ice-390235:45 Request LIPID PANEL (02449)Indication: Hyperglyceridemia On: :45 Request HEPATIC FUNCTION PANEL (66137)Indication: Hyperglyceridemia On: :45 Request TSH (98709)Indication: Hypothyroidism On: :55 Request URINALYSIS, W/ MICRO (32361)Indication: Hypertension On: :55 Request METABOLIC PANEL, COMPREHENSIVE (28999)Indication: Hypertension On: :55 Request LIPID PANEL (81271)Indication: Hypertension On: :55 Request CBC WITH MANUAL DIFF (01042)Indication: Hypertension On: :54 Request Celiac Disease Comphrehensive Profile (79221)Indication: Abdominal pain, acute, left upper quadrant On: :21 Request H. PYLORI ANALYSIS UREASE ACTIVITY (01348)Indication: Hypercalcemia On: :20 Request LIPASE (23580)Indication: Abdominal pain, acute, left upper quadrant On: :19 Request AMYLASE (54724)Indication: Abdominal pain, acute, left upper quadrant On: :18 Request HEPATIC FUNCTION PANEL (27820)Indication: Abdominal pain, acute, left upper quadrant On: :18 Request Metabolic Panel, Comprehensive (23008)Indication: Abdominal pain, acute, generalized On: :30 Request Sed Rate Erythrocyte (37988)Indication: Abdominal pain, acute, generalized On: :30 Request CBC, Platelets & Auto Diff (09403)Indication: Abdominal pain, acute, generalized On: :30 Request TSH (66219)Indication: Hypothyroidism On: :10 Request MICROALBUMIN: CREATININE RATIO (61833) AND (47303)Indication: Hypertension On: : Request METABOLIC PANEL, COMPREHENSIVE (26039)Indication: Hypertension On: : Request LIPID PANEL (74736)Indication: Hypertension On: :10 Request CBC WITH MANUAL DIFF (14538)Indication: Hypertension On: :10 Request HEPATIC FUNCTION PANEL (45878)Indication: Hyperglyceridemia On: 45-Tyi-623571:39 Request Lipid Panel (30132)Indication: Hyperglyceridemia On: 45-Wlp-324033:39 Request Comments: in six months (approximately) METABOLIC PANEL, BASIC (84029)Indication: Hypertension On: :59 Request Comments: 6 weeks TSH (95407)Indication: Thyroid nodule On: :56 Request Comments: 6 weeks HEPATIC FUNCTION PANEL (89538)Indication: Hyperglyceridemia On: :46 Request Comments: 4 months LIPID PANEL (43893)Indication: Hyperglyceridemia On: :46 Request Comments: 4 months TSH (80143)Indication: Thyroid nodule On: :57 Request Comments: in three months HEPATIC FUNCTION PANEL (86826)Indication: Hyperglyceridemia On: :56 Request Comments: in three months LIPID PANEL (96112)Indication: Hyperglyceridemia On: :56 Request Comments: in three months MAGNESIUM (07604)Indication: Hypokalemia On: :51 Request POTASSIUM SERUM (28185)Indication: Hypokalemia On: :51 Request TSH (08757)Indication: Thyroid nodule On: :51 Request Comments: now Planned Encounters Medical; [facility] Medicare Physical - On: 13-Aug-2018 14:15 [facility] Lakisha Sherman CNP, CNP, Mary E Planned Procedures SCREENING DIGITAL TOMOSYNTHESIS OF On: 06-Aug-2018 Intent BREAST (94845)By: Lakisha Sherman CNP, CNP, Mary E Flu Vaccine (Quadrivalent) 40714Lm: On: 06-Aug-2018 Intent Lakisha Sherman CNP, CNP, Mary E Comments: Lot #[id number]-L dltd, IMDose prefilled syringegiven by: PRINCE Medina reviewed and ABN signed SCREENING DIGITAL TOMOSYNTHESIS OF On: 25-Jul-2017 Intent BREAST (33613)By: Lakisha Sherman CNP, CNP, Mary E DEXA SCAN AXIAL SKELETON (88404)By: On: 25-Jul-2017 Intent Lakisha Sherman CNP, CNP, Mary E EXCISION BGN LSN FC/LID/EAR/NS On: 14-Jun-2016 Intent 0.6-1.0CM (73344)By: Lakisha Sherman CNP, CNP, Mary E MAMMOGRAM, SCREENING, BOTH BREAST On: 13-Jun-2016 Intent (69265)By: Lakisha Sherman CNP Comments: After Jul 17 2016 Lakisha HOWELL DEXA SCAN AXIAL SKELETON (02158)By: On: 13-Jun-2016 Intent Lakisha Sherman CNP, CNP, Mary E CT - Abdomen & Pelvis (Without On: 11-Dec-2015 Intent Contrast)By: Lakisha Sherman CNP, CNP, Mary E Endoscopy - Small Bowel SeriesBy: On: 23-Nov-2015 Intent Lakisha Sherman CNP, CNP, Mary E COLONOSCOPY, DIAGNOSTIC (52213)By: On: 26-Oct-2015 Intent Lakisha Sherman CNP, CNP, Mary E BILATERAL MAMMOGRAMS (03516)By: On: 13-Jul-2015 Intent Shelia Oleary MD BILATERAL MAMMOGRAMS (33768)By: On: 12-Jun-2014 Intent Shelia Oleary MD Eprescribed prescriptions (G8553)By: On: 07-Jan-2014 Intent Shelia Oleary MD DXA, BONE DENSITY, AXIAL SKELETON On: 24-Jun-2013 Intent (94892)By: Shelia Oleary MD [id number]-[facility] COUNSELING On: 24-Jun-2013 Intent FOR OBESITY, 15 MINUTES (G0447)By: Shelia Oleary MD FLU VAC, SPLIT, >3 YEARS, INTRAMUSC On: 24-Jun-2013 Intent (50499)By: MOIRA Crowell Comments: Lot #:[id number] date:02.22Amount given:0.5mlRoute: IMSite given:L DltdGiven by: VIS and ABN signed ADMINISTRATION OF INFLUENZA VIRUS On: 24-Jun-2013 Intent VACCINE (G0008)By: MOIRA Crowell Breast Screening - BilateralBy: On: 13-Jun-2013 Intent Shelia Oleary MD Breast Screening - BilateralBy: On: 13-Jun-2013 Intent Katia Saunders LPN EKG (12198)By: Shelia Oleary MD On: 26-Oct-2012 Intent Comments: see scanned document of test done to see results reviewed today with patient Eprescribed prescriptions (G8553)By: On: 26-Oct-2012 Intent Elizabet Johnston LPN FLU VAC, SPLIT, >3 YEARS, INTRAMUSC On: 21-Sep-2012 Intent (74142)By: Jolene Puckett LPN Comments: Lot:[id number]:prefilled syringeSite: L Dltd, IMGiven by: PRINCE Carlos signed ADMINISTRATION OF INFLUENZA VIRUS On: 21-Sep-2012 Intent VACCINE (G0008)By: Jolene Puckett LPN Breast Screening - BilateralBy: On: 04-Jun-2012 Intent Shelia Oleary MD CT - ChestBy: Larissa Griffiths DO On: 07-May-2012 Intent Comments: pe protocol Eprescribed prescriptions (G8553)By: On: 07-May-2012 Intent Larissa Griffiths DO EKG (79761)By: Larissa Griffiths DO On: 16-Apr-2012 Intent Comments: nsr no acute chg Nuclear Stress Test/Stress On: 16-Apr-2012 Intent SPECT/AdenosineBy: Aye KEBEDE, Comments: pt hip replacement <2 months ago not fit or able to do treadmill at this time Larissa Holter Moniter (05635)- 24 hrBy: On: 16-Apr-2012 Intent Larissa Griffiths DO Echo CompleteBy: Larissa Griffiths DO On: 16-Apr-2012 Intent ADMINISTRATION OF PNEUMOCOCCAL On: 29-Jul-2011 Intent VACCINE (G0009)By: Shelia Oleary MD PNEUM VAC ADLT/IMUMNOSPR, SBC/INTRM On: 29-Jul-2011 Intent (98079)By: Shelia Oleary MD Ultrasound - RenalBy: Anirudh GILL, On: 30-Jun-2011 Intent Shelia Boggs Breast Screening - BilateralBy: On: 09-Jun-2011 Intent Shelia Oleary MD Endoscopy - Small Bowel SeriesBy: On: 08-Nov-2010 Intent Ciesa CLOSED CIRCUIT SCREEN WATCHER, Priscilla Ciesa CLOSED CIRCUIT SCREEN WATCHER, Priscilla Endoscopy - Small Bowel SeriesBy: On: 25-Oct-2010 Intent Ciesa CLOSED CIRCUIT SCREEN WATCHER, Priscilla Ciesa CLOSED CIRCUIT SCREEN WATCHER, Priscilla UGI (With air contrast if On: 25-Oct-2010 Intent necessary)By: Ciesa LYDNA, Priscilla Ciesa CLOSED CIRCUIT SCREEN WATCHER, Priscilla Ultrasound - PelvisBy: Anirudh GILL, On: 06-Sep-2010 Intent Shelia Boggs Comments: transvaginal if need CT - Abdomen & PelvisBy: Anirudh GILL, On: 31-Aug-2010 Intent Shelia Boggs DXA, BONE DENSITY, AXIAL SKELETON On: 27-Aug-2010 Intent (63791)By: Shelia Oleary MD Breast Diagnostic - LeftBy: Anirudh On: 05-Mar-2010 Intent Shelia GILL Comments: 8- Breast Diagnostic - RightBy: On: 13-Apr-2009 Intent Aubree Alba MAMMOGRAM, SCREENING, BOTH BREASTS On: 24-Oct-2008 Intent (38902)By: Shelia Oleary MD EKG (89031)By: Shelia Oleary MD On: 24-Oct-2008 Intent Radiology - Hip - BilateralBy: On: 26-Sep-2006 Intent Sheila Oleary MD Nuclear Stress Test/Stress On: 27-Jun-2006 [...] Mixed Hyperlipidemia : DISCONTINUED - LIPID PANEL (14311) Indication: Mixed Hyperlipidemia Mixed Hyperlipidemia : DISCONTINUED - HEPATIC FUNCTION PANEL (49888) Indication: Mixed Hyperlipidemia Hypertension : How to [...] Indication: Atrial fibrillation Encounters Office Visit On: 06-Aug-2018 8:30 Encounter Reason: [...] patient does have durable gurjit r of insurance attorney and living will. The patient has noticed nothing from the geriatic depression scale. Other providers contributing to the patient's care are research development manager (Dr. Lopez ), gastrologist (Dr. Marcelino ) [...] Nutrition: balanced diet and supplemental vitamins. The ca dical issues the patient is following up [...] Exam: menopausal since age 45 Encounter Diagnosis: WWV, Viral infection, unspecified (079.99) [facility] [...] Pelvis/Thigh/Hip Pain (719.45), Osteopenia (733.90), Hypothyroidism (244.9), WWV [facility] Office Visit On: 10-Aug-2007 [...] [facility] End: 26-Jun-2006 15:02 Payers [employer]/MedicareMarcia Lowe; bernadine guarantor
--- OUTSIDE RECORDS SUMMARY | 2018-12-01 05:14 | XMS RPT_ITS | Continuity of Care Document ---
:1945 Author Organization [facility] Address [address] [place] [address] Phone Care Team Providers Name Role Phone Whit LYNDALakisha E Unavailable Dr. Demetri Tanner Unavailable Krista Castillo LPN Unavailable Unavailable Preston Vance Unavailable Unavailable Maria Luisa Angel Unavailable Unavailable Aaliyah Goel Unavailable Unavailable Unavailable [...] gain back. talk about this. Status: Active Hypercalcemia (E83.52, 275.42) Comments: stop calcium fvesjw27.3 with nausea Status: Active Hyperglyceridemia (E78.1, 272.1) Comments: would like to get on livalo but insurance not cover was on Zocor 03-05-2010 and provachol 03-15-12 with cramping. 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) Status: Active Mixed Hyperlipidemia (E78.2, 272.2) Comments: reveiwed with patient recent tests ldl good, excellent profile on Livalo, continue unable to take statins was approved Status: Active Need for prophylactic vaccination and inoculation against influenza (Z23, V04.81) Status: Active Nonsmoker (Z78.9, V49.89) [...] mojica took out and see someone at [facility] and stable Status: Active Tremor (R25.1, 781.0) Status: Active Unspecified Diagnosis Status: Active Unspecified Diagnosis Status: Active Unspecified Diagnosis Status: Active Upper respiratory infection, viral (J06.9, 465.9) Status: Active Urinary frequency (R35.0, 788.41) Comments: will reevaluate in future Status: Active Vaginitis (N76.0, 616.10) Comments: yeast vs other Status: Active WWV V73.21 (Renamed from [facility]) Comments: mammo 06-21, BD 12 scope 2009, mother after pneumonvax. Status: Active [...] Quantity: 90 {Tablet} Refills: 3 Ordered:23-Jan-2018 Whit HOWELL Lakisha DUNBARzac HOWELL, Lakisha Cartagena Start : 23-Jan-2018 Active Livalo 1 MG Oral Tablet 1 Tablet Tablet qd for 90 days Quantity: 90 {Tablet} Refills: 3 Ordered:23-Jan-2018 Whti HOWELL, Lakisha DUNBARzac HOWELL, Lakisha Cartagena Start : 23-Jan-2018 Active Comments:unable to take statin zetia, lipitor Multivitamin Adults 50+ Oral Tablet Active Toprol XL 50 MG Oral Tablet Extended Release 24 Hour 1 Tablet ER 24HR qd for 0 days Quantity: 90 {Tablet} Refills: 3 Ordered:17-Jun-2018 Whit HOWELL Lakisha DUNBARzac HOWELL, Lakisha Cartagena Start : 17-Jun-2018 Active Toprol XL 50 MG Oral Tablet Extended Release 24 Hour 1 Tablet ER 24HR qd for 0 days Quantity: 90 {Tablet} Refills: 3 Ordered:17-Jun-2018 Whit HOWELL Lakisha DUNBARzac HOWELL, Priscilla Start : 17-Jun-2018 Active Zithromax Z-Sadi 250 MG Oral Tablet 1 Tablet tad for 0 days Quantity: 1 {Package} Refills: 0 Ordered:13-Apr-2018 Whit HOWELL Lakisha Osvaldo HOWELL Lakisha Cartagena Start : 13-Apr-2018 Active ACTONEL, 150MG (Oral Tablet) 1 Tablet q monthly for 90 days Quantity: 3 {Tablet} Refills: 3 Ordered:15-Oct-2013 Shelia Oleary MD Start : 15-Oct-2013 End : 15-Oct-2013 Inactive ALIGN (Oral Capsule) 1 Capsule daily for 30 days Refills: 0 Ordered:08-Nov-2010 Whit MEDICAL LAB TECHNOLOGIST, Lakisha Murrybernadine HOWELL, Priscilla Start : 08-Nov-2010 End : 08-Dec-2010 Inactive ATIVAN, 0.5MG (Oral Tablet) 1 Tablet qd for 0 days Quantity: 30 {Tablet} Refills: 0 Ordered:18-Mar-2013 Bharti Villegas LPN Start : 15-Mar-2012 End : 18-Mar-2013 Inactive Comments:thirty Atorvastatin Calcium 20 MG Oral Tablet 1 (one) Tablet daily for 0 days Quantity: 90 {Tablet} Refills: 3 Ordered:09-Jan-2018 Elizabet Johnston LPN L Start : 18-Dec-2017 End : 09-Jan-2018 Inactive CARDIZEM LA, 120MG (Oral Tablet Extended Release 24 Hour) 1 Tablet ER 24HR qhs for 0 days Quantity: 30 {Tablet_ER_24HR} Refills: 2 Ordered:18-Mar-2013 Bharti Villegas LPN Start : 07-May-2012 End : 18-Mar-2013 Inactive CELEBREX, 200MG (Oral Capsule) 1 (one) Capsule qd/prn for 0 days Quantity: 90 {Capsule} Refills: 3 Ordered:15-Aug-2011 Elizabet Johnston LPN L Start : 15-Aug-2011 End : 15-Aug-2011 Inactive CLARITHROMYCIN, 500MG (Oral Tablet) 1 Tablet bid for 14 days Quantity: 28 {Tablet} Refills: 0 Ordered:27-Oct-2010 Riannasanthoshbernadine HOWELL, Lakisha Riley MEDICAL LAB TECHNOLOGIST, Priscilla Start : 27-Oct-2010 End : 10-Nov-2010 Inactive COLESTID, 5GM (Oral Granules) 1 Granules bid for 0 days Quantity: 1 {Packet(s)} Refills: 3 Ordered:19-Aug-2013 Elizabet Johnston LPN L Start : 15-Jul-2013 End : 19-Aug-2013 Inactive CoQ-10 100 MG Oral Capsule Extended Release 1 (one) Capsule ER Capsule ER daily for 0 days Quantity: 30 {Capsule} Refills: 0 Ordered:25-Jul-2017 Jonathan MYSQL DATABASE ADMINISTRATORKrista Mueller Start : 13-Jun-2016 End : 25-Jul-2017 Inactive Fenofibrate 120 MG Oral Tablet 1 (one) Tablet daily with a meal for 0 days Quantity: 30 {Tablet} Refills: 6 Ordered:10-Oct-2016 Shelia Oleary MD Start : 10-Oct-2016 End : 10-Oct-2016 Inactive Comments: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, needs Livalo [...] Refills: 0 Ordered:27-Oct-2010 Whit HOWELL, Lakisha Riley [facility], Lakisha Cartagena Start : 27-Oct-2010 End : 10-Nov-2010 Inactive OMEPRAZOLE, 20MG (Oral Tablet Delayed Release) [address] daily for 0 days Quantity: 30 {Tablet_DR} Refills: 0 Ordered:25-Oct-2010 Chip GABYKatia Start : 31-Aug-2010 End : 25-Oct-2010 Inactive PRADAXA, 75MG (Oral Capsule) 1 Capsule qd for 0 days Quantity: 30 {Capsule} Refills: 3 Ordered:18-Mar-2013 Bharti Villegas LPN Start : 07-May-2012 End : 18-Mar-2013 Inactive PROBIOTIC (Oral Tablet Delayed Release) 1 (one) Tablet DR daily for 30 days Quantity: 30 {Tablet} Refills: 0 Ordered:25-Nov-2015 Whit HOWELL, Lakisha Riley [facility], Lakisha Cartagena Start : 26-Oct-2015 End : 25-Nov-2015 Inactive SENOKOT, 8.6MG (Oral Tablet) 1 Tablet bid for 30 days Refills: 0 Ordered:24-Jun-2013 MOIRA Crowell Start : 18-Mar-2013 End : 24-Jun-2013 Inactive SUCRALFATE, 1GM (Oral Tablet) 1 (one) Tablet qid 1 hour before meals and at bedtime for 14 days Quantity: 56 {Tablet} Refills: 0 Ordered:23-Nov-2015 Whit HOWELL, Lakisha Riley [facility], Lakisha Cartagena Start : 23-Nov-2015 End : [...] Start : 05-Mar-2010 Inactive Comments:muscle aches ZOSTAVAX, 70868CYN/0.65ML (Subcutaneous Solution Reconstituted) uad For Solution SQ [...] days Quantity: 60 {Tablet} Refills: 6 Ordered:10-Aug-2007 Elizabet Johnston LPN Start : 10-Aug-2007 End : 25-Sep-2013 Discontinued Comments:This order discontinued per [facility]. VICODIN, 5-500MG (Oral Tablet) 1-2 Tablet three times daily as needed for 0 days Quantity: 60 {Tablet} Refills: 2 Ordered:22-Dec-2011 MOIRA Crowell Start : 22-Dec-2011 End : 24-Jun-2013 Discontinued Comments:Medication taken as needed. This order discontinued per [facility]. Allergies and Adverse Reactions Name Dates Details [...] Visit Report Result: Comments: See Note; NOTES: [facility] [place] [address] [place] [address] OFFICE VISIT Date of Service: 09/28/17 MR#: [id number] Acct: [id number] Name: KAMRYN NEUMANN ep #: [id number] : 1945 Provider: DIETER Mahan Age/Sex: 71/F Location: [facility] Status: Signed HPI 1 Y [...] brachial Intake Visit Reasons: 1 Y FU Legal Executive Assistant Required: No Accompanied by: None Is patient [...] prior to saving. Follow Up 1 Year ([employer]) Coding Level of Care Code Off vis,est,level 3 Diagnoses Paroxysmal atrial fibrillation I48.0 Palpitations R00.2 Mixed hyperlip idemia E78.2 Hyperlipidemia type: mixed hyperlipidemia 09/28/17 1242 <Electronically signed by Michael Mahan NURSING TEACHER-C> Date Michael Mahan NURSING TEACHER-C 09/30/17 1708<Electronically signed by Gerald Bell MD> Cosigner Signature: Date (if applicable) Gerald Bell MD CC: Lakisha Sherman NP 13-Sep-2017 Dexa Bone Density Study (HP) Result: Comments: See Note; NOTES: [facility] Imaging Services [address] [place] [address] Dexa Bone Density Study (HP) MR#: [id number] Acct: [id number] Name: KAMRYN NEUMANN Rep #: [id number] : 1945 F 71 From: Wayne Rabago MD PCP: Lakisha Sherman NP Status: [facility] Study: Dexa Bone Density Study (HP) Date of Exam: 09/13/17 Exam# [id number] Ordering Dr: Lakisha Sherman STUDY : DUAL [...] Wayne Rabago MD at 9:21 EST T kvng [phone], Service support , CC: Lakisha Sherman NP Cytology Manager: Signed 07-Sep-2017 SCREENING MAMM (CAD), BILAT Result: Comments: See Note; NOTES: [facility] Imaging Services [address] [place] [address] SCREENING MAMM (CAD), BILAT MR#: [id number] Acct: [id number] Name: KAMRYN NEUMANN Rep #: [id number] : 1945 F 71 From: Jimenez Harris MD PCP: Lakisha Sherman NP Status: REG CLI Study: SCREENING MAMM (CAD), BILAT Date of Exam: 09/07/17 Exam# [id number] Ordering Dr: Lakisha Sherman MAMMOGRAP HY - [...] delay biopsy of a clinically suspicious abnormality. [id number] Electronically Signed: Jimenez Harris MD at 8:01 EST , Service support , CC: Lakisha Sherman NP Cytology Manager: Signed 06-Oct-2016 Left Heart Cath/COR/LV Percut Result: Comments: See Note; NOTES: [facility] Imaging Services [address] [place] [address] Cardiac Catheterization Report MR#: [id number] Acct: [id number] Name: KAMRYN NEUMANN Rep #: [id number] : 1945 70 From: Kp Lopez MD [...] radial area. Intra-arterial cocktail was administered. A 5-Lebanese JL3.5 catheter was then advanced to the ascending aorta, flushed, and pressures recorded. Left coronary ostium was identified and engaged. Left coronary angiography performed in multiple views. Following this, the catheter was removed and a 5-Lebanese JR5 catheter was inserted. The right coron [...] noted in this vessel. 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 The left anterior [...] care. Kp Lopez MD T: NTS JOB: [id number] 10/07/16 1040 <Electron ically signed by Kp Lopez MD> Date Kp Lopez MD Cosigner Signature (If Indicated): Date CC: Lakisha Sherman; Kp Lopez MD Date Dictated: 10/06/161702 Date Transcribed: 10/06/161702 Cytology Manager: Signed 04-Oct-2016 Chest PA and Lateral Result: Comments: See Note; NOTES: [facility] Imaging Services [address] [place] [address] Verdana 4d Chest PA and Lateral MR#: [id number] Acct: [id number] Name: KAMRYN NEUMANN R Rep # : [id number] : 1945 F 70 From: Wayne Rabago MD PCP: Lakisha Sherman Status: PRE CLI Study: Chest PA and Lateral Date of Exam: 10/04/16 Exam# [id number] Ordering Dr: Kp Lopez MD STUDY: X- [...] Wayne Rabago MD at 14:21 EST Tel [phone], Service support [phone], CC: Lakisha Sherman; Kp Lopez MD Cytology Manager: Signed 03-Oct-2016 Nuclear Stress Test - Chemical Result: Comments: See Note; NOTES: [facility] Imaging Services [address] [place] [address] Verdana 4d Nuclear Stress Test - Chemical MR#: [id number] Acct: [id number] Name: KINGS NEUMANN CIA R Rep #: [id number] : 1945 70 From: Kp Lopez MD Primary Care: RiannaLakisha robert Status: REG CLI Ordering Dr: Kp Lopez [...] fraction. Kp Lopez MD T: NTS JOB: [id number] 10/07/16 1039 <Electronically signed by Kp Lopez MD> Date ___ Kp Lopez MD CC: Lakisha Sherman; Kp Lopez MD Date Dictated: 10/03/16 1634 Date Transcribed: 10/03/161633 Cytology Manager: Signed 06-Sep-2016 Bilat Scrn Digital AND CAD Result: Comments: See Note; NOTES: [facility] Services [address] [place] [address] Verdana 4d Bilat Scrn Digital AND CAD MR#: [id number] Acct: [id number] Name: KAMRYN NEUMANN Rep #: [id number] : 1945 F 70 From: Wayne Rabago MD PCP: Lakisha Sherman Status: PRE CLI Study: Bilat Scrn Digital AND CAD Date of Exam: 09/06/16 Exam# [id number] Ordering Dr: Lakisha Sherman AMMOGRAPHY - BILATERAL [...] delay biopsy of a clinically suspicious abnormality. [id number] Electronically Signed: Wayne Rabago MD at 7:53 EST Tel [phone], Service support [phone], CC: Lakisha Sherman Cytology Manager: Signed 18-Dec-2015 Abdomen/Pelvis without Cont Result: Comments: See Note; NOTES: [facility] Services [address] [place] [address] Verdana 4d Abdomen/Pelvis without Cont MR#: [id number] Acct: [id number] Name: KAMRYN NEUMANN Rep #: [id number] : 1945 F 70 From: Clifford Khan MD PCP: Lakisha Sherman Status: REG CLI Study: Abdomen/Pelvis without Cont Date of Exam: 12/18/15 Exam# [id number] Ordering Dr: Lakisha Sherman STUDY: CT ABDOMEN [...] MD at 20:40 EDT , Service support [phone], CC: Lakisha Sherman Cytology Manager: Signed 17-Jul-2015 Bilat Scrn Digital AND CAD Result: Comments: See Note; NOTES: [facility] Services [address] [place] [address] Verdana 4d Bilat Scrn Digital AND CAD MR#: [id number] Acct: [id number] Name: KAMRYN NEUMANN Rep #: [id number] : 1945 F 69 From: Wayne Rabago MD PCP: Shelia Oleary MD Status: REG CLI Study: Bilat Scrn Digital AND CAD Date of Exam: 07/17/15 Exam# [id number] Johan g Dr: Shelia Oleary MD MAMMOGRAPHY - BILATERAL [...] Wayne Rabago MD at 14:38 EST Tel [phone], Service supp ort [phone], CC: Shelia Oleary MD Cytology Manager: Signed 14-Jul-2014 Omar Hinojosa Digital & CAD Result: Comments: See Note; NOTES: [facility] Imaging Services [address] [place] [address] Breast Imaging Report MR#: [id number] Acct: [id number] Name: KAMRYN NEUMANN Rep #: [id number] : 1945 F 68 From: Wayne Rabago MD PCP: Shelia Oleary MD Status: REG CLI Exam# [id number] Ordering Dr: Shelia Oleary MD MAMMOGRAPHY - [...] Wayne Rabago MD at 15:42 EST Tel [phone], Service support [phone], CC: Shelia Oleary MD Cytology Manager: Signed 03-Jul-2013 Dexa Bone Density Study (HP) Result: Comments: See Note; NOTES: [facility] Imaging Services [address] [place] [address] Bone Density Report MR#: [id number] Acct: [id number] Name: BAOOsielKAMRYN Rep #: [id number] : 1945 F 67 From: Wayne Rabago MD PCP: Status: REG CLI Study: Dexa Bone Density Study (HP) Date of Exam: 07/03/13 Exam# [id number] Ordering Dr: Shelia Oleary MD STUDY: DUAL [...] July 03, 2013 at 1:44:42 PM EDT [phone] Electro nically Signed GP/GP If you are the referring physician and would like to consult with the radiologist who provided this interpretation, please contact Wayne Rabago M.D. at [phone]. If this radiologist is unavailable, you will be directed to another radiologist to assist. If you are a patient with a question regarding this report, please contact your referring physician directly. Professional Interpretation Provided By: [employer], Phone , These documents contain legally protected [...] of these documents. CC: Shelia Oleary MD Cytology Manager: Signed 21-Jun-2013 Bilarden Souzan Digital & CAD Result: Comments: See Note; NOTES: [facility] Imaging Services [address] [place] [address] Breast Imaging Report MR#: [id number] Acct: [id number] Name: KAMRYN NEUMANN Rep #: [id number] : 1945 67 From: Wayne Rabago MD PCP: Status: REG [facility] Exam# [id number] Ordering Dr: Shelia Oleary MD MAMMOGRAPHY - [...] June 21, 2013 at 3:16:59 PM EDT [id number] Electronically Signed GP/GP If you are the [...] phys ician directly. Professional Interpretation Provided By: [employer], Phone , These documents contain legally protected [...] of these documents. CC: Shelia Oleary MD Cytology Manager: Signed Family History Unknown Family Member Name Dates Details Family Members In General Comments: Cancer, Diabetes, Emotional problems, HBP, high cholesterol, seizures, thyroid, ulcer disease Status: Active Social History Name Dates Details Alcohol Use Comments: Occasional alcohol use Status: Active Breast reduction Comments: 2007 Status: Active Caffeine Use Comments: 1-2 QD Status: Active Current Work/Study Status Comments: Retired Status: Active Exercise History Comments: Light Status: Active Living Situation Comments: Lives alone Status: Active No Drug Use Status: Active Non Smoker/No Tobacco Use Status: Active Tobacco use: Former smoker. Status: Active Smoking Status Name Dates Details Former smoker Vital Signs Date Test Result Details :09 Temperature 96.7 f Pulse 88 /min [...] kg/m2 Body Surface Area Calculated 1.98 m2 68-Mvo-107588:40 Pulse 80 /min Comments: Pattern: Regular Respiration [...] kg/m2 Body Surface Area Calculated 1.95 m2 97-Yed-402372:26 Temperature 97.2 f Comments: Method: Oral Pulse [...] 0.00 cm Results Date Description Value Details 22-Ahu-579335:20 THROAT CULTURE (74035) Comments: PATIENT NOT FASTINGPERFORMED BY: [facility] [id number] Information: SRC: Result 1 RRF (Normal) Comments: Routine respiratory dodie Upper Respiratory Culture Final report (Normal) 89-Ozi-35133:59 Rapid Strep Test, Office (33265) Rapid Strep Test, Office Negative (Normal) :39 URINE ANTHONY CULTURE-MARIA T COL Comments: PATIENT NOT FASTINGPERFORMED BY: [employer] [facility] [id number] Information: SRC:UC COUNT (65565) Result 1 BETAGF (Abnormal) Comments: Beta hemolytic Streptococcus, group F3,000 Colonies/mLMixed urogenital flora3,000 Colonies/mL Urine Final report (Abnormal) Culture,Comprehensive 62-Udg-97346:28 Urinalysis, Office (12307) UA - LEUKOCYTE ESTERASE Trace (Normal) UA - NITRITE Negative (Normal) URINE UROBILINGN MARIA T TIMED 2 mg/dL (Normal) UA - PROTEIN Negative mg/dL (Normal) UA - PH 7.5 (Normal) UA - BLOOD Negative (Normal) UA - SPECIFIC GRAVITY 1.020 (Normal) UA - KETONES Negative mg/dL (Normal) UA - BILIRUBIN Negative (Normal) UA - GLUCOSE Negative (Normal) :44 CALCIFEDIOL (58235) Comments: PATIENT WAS FASTINGPERFORMED BY: [facility] [id number] Vitamin D, 25-Hydroxy 47.5 ng/mL (Normal) Range: 30.0-100.0 Comments: Vitamin D deficiency has been defined by the [place] ofMedicine and an Endocrine Society practice guideline as alevel of serum 25-OH vitamin D less than 20 ng/mL (1,2).The Endocrine Society went on to further define vitamin Dinsufficiency as a level between 21 and 29 ng/mL (2).1. IOM ([place] of Medicine). 2010. Dietary reference intakes for calcium and D. [place]: The National AcademFandeavor Press.2. Joe MF, Carrie NC, Mellisa SALMON, et al. Evaluation, treatment, and prevention of vitamin D deficiency: an Endocrine Society clinical practice guideline. JCEM. 2010; 96(7):1911-30. :44 CBC, PLATELETS & AUT DIFF Comments: PATIENT WAS FASTINGPERFORMED BY: [facility] Xonooz2759 [facility] [id number] Information: NO UR @ UPLOAD (61131) Immature Grans (Abs) 0.0 {x10E3/uL} (Normal) Range: [...] PANEL, COMPREHENSIVE Comments: PATIENT WAS FASTINGPERFORMED BY: [facility]CoR[facility]ells Specialized HospitalIfauvv7008 [facility] [id number] (97907) ALT (SGPT) 13 [iU]/L (Normal) Range: 0-32 [...] (THYROID STIMULATING Comments: PATIENT WAS FASTINGPERFORMED BY: [facility]CoR[facility]ells Specialized HospitalDgbero8139 [facility] [id number] HORMONE) (88780) TSH 0.771 {uIU/mL} (Normal) Range: 0.450-4.500 :44 LIPID PANEL (31811) Comments: PATIENT WAS FASTINGPERFORMED BY: [facility]CoR[facility] Special[facility] HospitalYinpwm4552 [facility] [id number] LDL/HDL Ratio 1.4 {ratio_units} (Normal) Range: 0.0-3.2 [...] 100-199 :55 Basic Metabolic Profile (BMP) Comments: [facility] [address] [place], [address] GAP 6 (Normal) Range: 5-15 CO2 30.0 [...] :55 CBC-Complete Blood Cnt No Diff Comments: [facility] [address] [place], [place], [address] ; another doc MPV 9.7 fL (Normal) [...] - *Hepatic Function PanelOrder Date: 09/27/16Order Info: [id number] - *Lipid Profile CC PCPComments: 12 hours fasting, may have water.[facility] [place] [address] [place], [place], [address] VLDL 34 mg/dL (Normal) Range: 5-40 LDL [...] 200-240 mg/dL Borderline >240 mg/dL High Risk 59-Inp-84274:39 Liver Profile Comments: Order Date: 09/27/16Order Info: [id number] - *Hepatic Function PanelOrder Date: 09/27/16Order Info: [id number] - *Lipid Profile CC PCPComments: 12 hours fasting, may have water.[place] [address] [place], [address] ; another doc D BILI 0.14 mg/dL (Normal) Range: 0.00-0.30 T BILI 0.60 mg/dL (Normal) Range: 0.20-1.00 ALT 18 U/L (Normal) Range: 12-78 ALK P 91 U/L (Normal) Range: 45-117 AST 20 U/L (Normal) Range: 15-37 GLOB 3.9 g/dL (Abnormal) Range: 2.3-3.5 ALB 3.5 g/dL (Normal) Range: 3.4-5.0 T PROT 7.4 g/dL (Normal) Range: 6.4-8.2 14-Jun-20162:30 Pathology Report Comments: PERFORMED BY: CYT [facility] [place] Cyto Fsaxj89644 [facility] [id number] Information: [id number] See MATER Comments: Material submitted: .SHAVE BIOPSY [...] BISECTED. THE SPECIMEN IS SUBMITTEDIN CASSETTE(S) A./LMSLMS/LMSCPT .369060 :41 TSH (THYROID STIMULATING Comments: PATIENT WAS FASTINGPERFORMED BY: [facility] Iawapd6[address] RoadDublin [place] [id number] HORMONE) (22282) TSH 1.110 {uIU/mL} (Normal) Range: 0.450-4.500 :41 CALCIFEDIOL (73185) Comments: PATIENT WAS FASTINGPERFORMED BY: [facility] Aqexxt3329 [address] RoadDublin [place] [id number] Vitamin D, 25-Hydroxy 45.8 ng/mL (Normal) Range: 30.0-100.0 Comments: Vitamin D deficiency has been defined by the [place] ofMedicine and an Endocrine Society practice guideline as alevel of serum 25-OH vitamin D less than 20 ng/mL (1,2).The Endocrine Society went on to further define vitamin Dinsufficiency as a level between 21 and 29 ng/mL (2).1. IOM ([place] of Medicine). 2010. Dietary reference intakes for calcium and D. [place]: The National Academies Press.2. Joe MF, Carrie [place], Mellisa SALMON, et al. Evaluation, treatment, and prevention of vitamin D deficiency: an Endocrine Society clinical practice guideline. JCEM. 2010; 96(7):1911-30. :41 CBC, Platelets & Auto Diff Comments: PATIENT WAS FASTINGPERFORMED BY: [facility] Wmzrzb2689 [address] RoadDublin [place] [id number] (41018) Immature Grans (Abs) 0.0 {x10E3/uL} (Normal) Range: [...] {x10E3/uL} (Normal) Range: 3.4-10.8 14-Jun-20168:41 Lipid Panel (68877) Comments: PATIENT WAS FASTINGPERFORMED BY: [facility] HospitalPzbcho6637 [facility] [id number] LDL/HDL Ratio 1.6 {ratio_units} (Normal) Range: 0.0-3.2 [...] Comprehensive Comments: PATIENT WAS FASTINGPERFORMED BY: [facility] Zqxnpy7220 [facility] [id number]; OV 06/27 (95921) ALT (SGPT) 17 [iU]/L (Normal) Range: 0-32 [...] Glucose, Serum 80 mg/dL (Normal) Range: 65-99 50-Giu-391155:28 Celiac Disease Profile Comments: [facility] (refer to [...] Comments: Please note reference interval changePerformed at: [address] [id number] Director: Itz Hartley PhD, Phone: [phone] 56-Tkh-122952:36 Fecal Occult Blood , Office (06041) Fecal Occult Blood , Office (Inhouse) negative (Normal) 88-Rqs-914990:49 HELICOBACTER PYLORI ANTIBODY Comments: PATIENT NOT FASTINGPERFORMED BY: [facility] [place] [address] [id number] (99182) H. pylori, IgG Abs <0.9 U/mL (Normal) Range: 0.0-0.8 Comments: Negative <0.9 Indeterminate 0.9 - 1.0 Positive >1.0 51-Mfh-698993:49 CBC, Platelets & Auto Comments: PATIENT NOT FASTINGPERFORMED BY: [address] [id number] Information: [id number] Diff (03323) Immature Grans (Abs) 0.0 {x10E3/uL} (Normal) Range: [...] 3.77-5.28 WBC 6.5 {x10E3/uL} (Normal) Range: 3.4-10.8 82-Xsp-313811:49 Metabolic Panel, Comprehensive Comments: PATIENT NOT FASTINGPERFORMED BY: [facility]Co[facility] HospitalAjidzv8111 [facility] [id number] (76544) ALT (SGPT) 14 [iU]/L (Normal) Range: 0-32 [...] Glucose, Serum 86 mg/dL (Normal) Range: 65-99 10-Wnb-334939:15 URINE ANTHONY CULTURE-IDENTIFICATN Comments: PATIENT NOT FASTINGPERFORMED BY: [facility]Co[facility] Special[facility] HospitalHyqwqc0875 [place] [facility] [id number] Information: [id number] (16560) Result 1 MUG (Normal) Comments: Mixed urogenital flora2,000 Colonies/mL Urine Culture,Comprehensive Final report (Normal) 50-Kdt-43966:46 Urinalysis, Office (32559) UA - LEUKOCYTE ESTERASE Small (Normal) UA - NITRITE Negative (Normal) URINE UROBILINGN MARIA T TIMED Normal mg/dL (Normal) UA - PROTEIN Negative mg/dL (Normal) UA - PH 5 (Abnormal) UA - BLOOD Negative (Normal) UA - SPECIFIC GRAVITY 1.030 (Abnormal) UA - KETONES Moderate mg/dL (Normal) UA - BILIRUBIN Small (Normal) UA - GLUCOSE Negative (Normal) 7-Njq-834987:02 T4 Total, Thyroxin Comments: SEND RESULTS TO DR. RICK'S OFFICE WELL [facility] [place] [address] [place], [address] T4 THYROXIN 8.8 ug/dL (Normal) Range: 4.8-13.9 1-Hkn-590302:02 Thyroid Stim Hormone (TSH) Comments: SEND RESULTS TO DR. RICK'S OFFICE WELL [facility] [place] [address]vk[address] [place], [place], [address] TSH 1.28 {uIU/mL} (Normal) Range: 0.358-3.74 73-Agg-442964:51 Rapid Strep Test, Office (06354) Rapid Strep Test, Office Negative (Normal) 55-Nob-756946:35 Throat Culture (52320) Comments: PATIENT NOT FASTINGPERFORMED BY: [employer] [facility] [id number] Information: SRC:THRT [id number] Result 1 RRF (Normal) Comments: Routine respiratory dodie Upper Respiratory Culture Final report (Normal) 13-Aug-20148:31 METABOLIC PANEL, COMPREHENSIVE Comments: PATIENT WAS FASTINGPERFORMED BY: [employer]70 [facility] [id number] (51016) ALT (SGPT) 11 [iU]/L (Normal) Range: 0-32 [...] mg/dL (Normal) Range: 65-99 :31 LIPID PANEL (35869) Comments: PATIENT WAS FASTINGPERFORMED BY: [employer]70 [facility] [id number] LDL/HDL Ratio 1.5 {ratio_units} (Normal) Range: 0.0-3.2 [...] MANUAL DIFF Comments: PATIENT WAS FASTINGPERFORMED BY: [employer]70 [facility] [id number] Information: [id number] (81919) Immature Grans (Abs) 0.0 {x10E3/uL} (Normal) Range: [...] 4.8 {x10E3/uL} (Normal) Range: 3.4-10.8 :31 TSH (36749) Comments: PATIENT WAS FASTINGPERFORMED BY: NeotropixRunnells Specialized HospitalOocrlo1117 [facility] [id number] TSH 1.440 {uIU/mL} (Normal) Range: 0.450-4.500 :03 Metabolic Panel, Comments: recheck in 3 months; PATIENT WAS FASTINGPERFORMED BY: NeotropixRunnells Specialized HospitalWoplyv1380 [facility] [id number] Information: [id number] Comprehensive (70537) ALT (SGPT) 13 [iU]/L (Normal) Range: 0-32 [...] mg/dL (Normal) Range: 65-99 :03 Lipid Panel (25656) Comments: recheck in 3 months; PATIENT WAS FASTINGPERFORMED BY: LabCoRunnells Specialized HospitalYfxzer7879 [facility] [id number] LDL/HDL Ratio 1.4 {ratio_units} (Normal) Range: 0.0-3.2 LDL Cholesterol Calc 84 mg/dL (Normal) Range: 0-99 VLDL Cholesterol Jennifer 43 mg/dL (Abnormal) Range: 5-40 HDL Cholesterol 62 mg/dL (Normal) Comments: According to ATP-III Guidelines, HDL-C >59 mg/dL is considered anegative risk factor for CHD. Triglycerides 215 mg/dL (Abnormal) Range: 0-149 Cholesterol, Total 189 mg/dL (Normal) Range: 100-199 :44 Urinalysis, Office (82338) UA - BILIRUBIN Negative (Normal) UA - [...] diff Comments: PATIENT WAS FASTINGPERFORMED BY: PATRIA [employer] [facility] [id number] Information: [id number] (55306) Immature Grans (Abs) 0.0 {x10E3/uL} (Normal) Range: [...] 5.1 {x10E3/uL} (Normal) Range: 3.4-10.8 :15 Ferritin (74079) Comments: PATIENT WAS FASTINGPERFORMED BY: [employer] [facility] [id number] Ferritin, Serum 43 ng/mL (Normal) Range: 15-150 :15 Lipid Panel (04837) Comments: PATIENT WAS FASTINGPERFORMED BY: Thomas Engine CompanyCoRunnells Specialized HospitalXiaphu5645 [facility] [id number] LDL/HDL Ratio 2.3 {ratio_units} (Normal) Range: 0.0-3.2 [...] Panel, Comprehensive Comments: PATIENT WAS FASTINGPERFORMED BY: Thomas Engine CompanyCoRunnells Specialized HospitalZfnusa7251 [facility] [id number] (00277) ALT (SGPT) 13 [iU]/L (Normal) Range: 0-32 [...] 83 mg/dL (Normal) Range: 65-99 :15 CALCIFIDIOL (74649) VIT D 25 Comments: PATIENT WAS FASTINGPERFORMED BY: LabCoRunnells Specialized HospitalTpoqxl4067 [facility] [id number] Vitamin D, 25-Hydroxy 32.6 ng/mL (Normal) Range: 30.0-100.0 Comments: Vitamin D deficiency has been defined by the [place] ofMedicine and an Endocrine Society practice guideline as alevel of serum 25-OH vitamin D less than 20 ng/mL (1,2).The Endocrine Society went on to further define vitamin Dinsufficiency as a level between 21 and 29 ng/mL (2).1. IOM ([place] of Medicine). 2010. Dietary reference intakes for calcium and D. [place]: The National Academies Press.2. Joe MF, Carrie NC, Mellisa SALMON, et al. Evaluation, treatment, and prevention of vitamin D deficiency: an Endocrine Society clinical practice guideline. JCEM. 2010; 96(7):1911-30. :15 TSH (72540) Comments: PATIENT WAS FASTINGPERFORMED BY: LabCoRunnells Specialized HospitalPajdqe7738 [facility] [id number] TSH 1.050 {uIU/mL} (Normal) Range: 0.450-4.500 3-Tge-620130:30 BILAT SCRN DIGITAL & CAD Radiology Report [...] Rabago M.D.June 18, 2012 at 12:43:13 PM [id number] Signed GP/GP If you are the referring physician and would like to consult with theradiologist who provided this interpretation, please contact Melody Underwood at [phone]. If this radiologist is unavailable, youwill be directed to another radiologist to assist. If you are a patient with a question regarding this report, pleasecontactyour referring physician directly. Professional Interpretation Provided By: [employer], Phone , These do cuments contain legally [...] destructionofthese documents. Dictated on 06/18/12 1030 by Reid Rabago MDscribed on 06/18/12 1248 by ITS IMPORTSign by [...] MG 2.1 mg/dL Range: 1.8-2.4 11:21 (Normal) 68-Rkx-97875:00 CHEST WITH CONTRAST Radiology Report See Note [...] Cronin D.O.May 07, 2012 at 8:20:03 PM [id number] Signed BE/BE If you are the referring physician and would like to consult with theradiologist who provided this interpretation, please contact Moises Cronin D.O. at [phone]. If this radiologist is unavailable, you will bedirected to another radiologist to assist. If you are a patient with a question regarding this report, pleasecontactyour referring physician directly. Professional Interpretation Provided By: [employer], Phone , Thes e documents contain legally protected and confidential healthinformation intended only for the use of the individual or entity namedabove. If you are not the intended recipient, you are hereby notifiedt payton disclosure, copying, distribution, or other use of these documents isstrictly prohibited. If you have received this information in error,pleasenotify the sender immediately and arrange for the re turn or destructionofthese documents. Dictated on 05/07/121929 by Cindy Cronin MDianTranscribed on 05/07/122034 by ITS IMPORTSign by Moises Cronin MD on 05/07/122035 Sign by: Moises Cronin MD 35-Cea-473347:23 Hemoglobin Glyclated (HGB A1C) (38595) HEMOGLOBIN GLYCLATED (HGB A1C) 5.4 % (Normal) Range: 4.6 - 7.1 93-Abi-802276:32 MYOCARD PERF STRESS/REST MULT Radiology Report See [...] The patient was injected with 32.0 mCi yrWp86v Cardiolite and subsequently stress SPECT Cardiolite nuclear [...] of 72%. Dictated on 04/24/12 1316 by Ray GILL,GeraldTranscribed on 04/24/12 1432 by Benita CHRISTY by Ray GILL,Gerald on 04/24/12 1517 Sign by: Gerald Bell MD 14-Ugj-00170:36 Metabolic Panel, Basic Comments: re check 2 weeks; PATIENT NOT FASTINGPERFORMED BY: [employer]6370 [facility] [id number] Information: [id number] (31035) Calcium, Serum 9.8 mg/dL (Normal) Range: 8.6-10.2 [...] Glucose, Serum 88 mg/dL (Normal) Range: 65-99 9-Eeh-884763:34 METABOLIC PANEL, COMPREHENSIVE Comments: PATIENT NOT FASTINGPERFORMED BY: NefsisCoVivoluxWrfckp3556 [facility]Sc[facility] [id number] (74119) ALT (SGPT) 14 [iU]/L (Normal) Range: 0-40 [...] Glucose, Serum 102 mg/dL (Abnormal) Range: 65-99 8-Ult-824171:34 CBC WITH MANUAL DIFF Comments: PATIENT NOT FASTINGPERFORMED BY: PATRIA LabCoRunnells Specialized HospitalKjottj5892 [facility] [id number] Information: [id number] (15839) Immature Grans (Abs) 0.0 {x10E3/uL} (Normal) Range: [...] 3.77-5.28 WBC 5.5 {x10E3/uL} (Normal) Range: 4.0-10.5 6-Yqj-569796:34 TSH (33375) Comments: PATIENT NOT FASTINGPERFORMED BY: LabCoRunnells Specialized HospitalWketap0742 [facility] [id number] TSH 1.040 {uIU/mL} (Normal) Range: 0.450-4.500 :22 Metabolic Panel, Basic Comments: PATIENT NOT FASTINGPERFORMED BY: LabCo[address] [id number] Information: [id number] (77068) Calcium, Serum 9.3 mg/dL (Normal) Range: 8.6-10.2 [...] 88 mg/dL (Normal) Range: 65-99 :08 TSH (31413) Comments: PATIENT NOT FASTINGPERFORMED BY: [facility]6370 [facility] [id number] TSH 0.597 {uIU/mL} (Normal) Range: 0.450-4.500 :08 METABOLIC PANEL, COMPREHENSIVE Comments: PATIENT NOT FASTINGPERFORMED BY: [facility]6370 [facility] [id number] (58234) ALT (SGPT) 16 [iU]/L (Normal) Range: 0-40 [...] MANUAL DIFF Comments: PATIENT NOT FASTINGPERFORMED BY: LabCoRunnells Specialized HospitalNydtia4793 [facility] [id number] Information: [id number] (08631) Immature Grans (Abs) 0.0 {x10E3/uL} (Normal) Range: [...] Microscopic Examination Comments: PATIENT WAS FASTINGPERFORMED BY: LabCoRunnells Specialized HospitalJhexrm0729 [facility] [id number] Bacteria None seen (Normal) Mucus Threads Present (Normal) Epithelial Cells (non renal) 0-10 {/hpf} (Normal) Range: 0 - 10 RBC 0-3 {/hpf} (Normal) Range: 0 - 3 WBC 0-5 {/hpf} (Normal) Range: 0 - 5 12-Aug-20118:37 Pathology Report Comments: PERFORMED BY: MARIO [facility] [place] Kiya62006 [facility] [id number] BY: Beckie [facility] [place] Ynrxhmruf625 [facility] [id number] Information: [id number] See MATER Comments: Material submitted: .BACKClinical history: [...] CONTAIN THE FIVE REMAININGSECTIONS.XEC/JASPathologist provided ICD-9:706.2, 216.5CPT .933746 :32 TSH (23639) Comments: PATIENT WAS FASTINGPERFORMED BY: [employer] Oozwfb1186 [facility] [id number] TSH 1.170 {uIU/mL} (Normal) Range: 0.450-4.500 :32 URINALYSIS, W/ MICRO (25352) Comments: PATIENT WAS FASTINGPERFORMED BY: [employer] Hsfzvf6424 [facility] [id number] Microscopic Examination See below: (Normal) Nitrite, Urine Negative (Normal) Urobilinogen,Semi-Qn 0.2 mg/dL (Normal) Range: 0.0-1.9 Bilirubin Negative (Normal) Occult Blood Negative (Normal) Ketones Negative (Normal) Glucose Negative (Normal) Protein Negative (Normal) WBC Esterase 1+ (Abnormal) Appearance Clear (Normal) Urine-Color Yellow (Normal) pH 7.0 (Normal) Range: 5.0-7.5 Specific [place] 1.017 (Normal) Range: 1.005-1.030 :32 METABOLIC PANEL, COMPREHENSIVE Comments: PATIENT WAS FASTINGPERFORMED BY: Innate PharmaRunnells Specialized HospitalByoqup2667 [facility] [id number] (18881) ALT (SGPT) 14 [iU]/L (Normal) Range: 0-40 [...] mg/dL (Normal) Range: 65-99 :32 LIPID PANEL (77523) Comments: PATIENT WAS FASTINGPERFORMED BY: [employer] [facility] [id number] LDL Cholesterol Calc 100 mg/dL (Abnormal) Range: [...] MANUAL DIFF Comments: PATIENT WAS FASTINGPERFORMED BY: [employer]6[address] [facility] [id number] Information: [id number] (90815) Immature Grans (Abs) 0.0 {x10E3/uL} (Normal) Range: [...] 3.80-5.10 WBC 4.2 {x10E3/uL} (Normal) Range: 4.0-10.5 91-Evq-854453:31 Thin prep Pap Comments: Source.............Cervical;EndocervicalLMP / Prev Treat...QXS=012188Ls. of containers..01 CYTYC Thin Prep VialPATIENT NOT FASTINGPERFORMED BY: WB [facility] [address] [id number] (41987) [id number] Information: [id number] Note: PAPSMR (Normal) Comments: The Pap smear [...] PRESENT.THIS SPECIMEN WAS RESCREENED PART OF OUR [employer]UR[employer]ARDEN PROGRAM.Satisfactory for e valuation. Endocervical component may not bedistinguished in cases of atrophy.Allie Villafuerte, Public Health Director ([facility])Parul Singh, Supervisory Public Health Director ([facility]) 88-Oym-461258:27 KIDNEY Radiology Report See Note (Normal) Comments: [...] 07/05/11 1105 Sign by: Wayne Rabago MD 4-Fsj-479035:26 BILAT SCRN DIGITAL & CAD Radiology Report [...] FUNCTION PANEL Comments: PATIENT WAS FASTINGPERFORMED BY: [facility]6370 [facility] [id number] Information: [id number]; appt 06/30/11 (31818) ALT (SGPT) 12 [iU]/L (Normal) Range: 0-40 AST (SGOT) 19 [iU]/L (Normal) Range: 0-40 Alkaline Phosphatase, S 86 [iU]/L (Normal) Range: 25-165 Bilirubin, Direct 0.17 mg/dL (Normal) Range: 0.00-0.40 Bilirubin, Total 0.6 mg/dL (Normal) Range: 0.0-1.2 Albumin, Serum 4.5 g/dL (Normal) Range: 3.6-4.8 Protein, Total, Serum 6.8 g/dL (Normal) Range: 6.0-8.5 :46 LIPID PANEL (32815) Comments: PATIENT WAS FASTINGPERFORMED BY: [facility]6370 [facility] [id number] LDL/HDL Ratio 1.3 {ratio_units} Range: 0.0-3.2 (Normal) [...] Serum 63 U/L (Normal) Comments: PERFORMED BY: [facility] CompanyMackin[facility] Stra[facility]6370 [facility] [id number] 10:29 Range: 31-124 56-Zmc-302493:29 Celiac Disease Comprehensive Comments: PERFORMED BY: [facility] Engine CompanyMackinac Stra[facility] Hospital6370 [facility] [id number] Immunoglobulin A, Qn, Serum 301 mg/dL (Normal) [...] IgM, IgG, IgA Ab Comments: PERFORMED BY: [facility] [id number] H.pylori, IgM ABS <0.80 {index} (Normal) Range: [...] Hepatic Function Panel (7) Comments: PERFORMED BY: [employer] [facility] [employer] EntertainmentUNC [facility] [id number] Alkaline Phosphatase, S 99 [iU]/L (Normal) Range: 25-165 ALT (SGPT) 14 [iU]/L (Normal) Range: 0-40 AST (SGOT) 20 [iU]/L (Normal) Range: 0-40 Albumin, Serum 4.6 g/dL (Normal) Range: 3.6-4.8 Bilirubin, Direct 0.25 mg/dL Range: 0.00-0.40 (Normal) Bilirubin, Total 0.8 mg/dL (Normal) Range: 0.0-1.2 Protein, Total, Serum 7.4 g/dL (Normal) Range: 6.0-8.5 Lipase, Serum 37 U/L (Normal) Comments: PERFORMED BY: [facility] Pcueqe4747 [facility] [id number] 0:29 Range: 0-59 59-Ioi-18681:00 DEXA BONE DENSITY STUDY (HP) Radiology Report See Note (Normal) Comments: CLINICAL:Postmenopausal EXAMINATION:DUAL ENERGY X-RAY ABSORPTIOMETRY / DEXA. TECHNIQUE:Bone Density Measurements (BMD) of lumbar spine and bilateral hips wereobtained using a Kanmu.. COMPARISON:July 24, 2007 FINDINGS: Lumbar Spine (L1-L4): [...] Melendez on 09/12/10351 Sign by: Vipin Melendez 42-Xia-417754:54 PELVIC (NON ) Radiology Report See Note [...] by ITS IMPORTSign by Sonja Sr on 12/31/10 2037 Sign by: Sonja Sr 41-Znf-20829:00 TRANSVAGINAL WITH ARTERIAL CHARLES Radiology Report See [...] on 09/13/10 1401 Sign by: Sonja Sr 81-Mvw-136874:03 ABDOMEN/PELVIS WITH CONTRAST Radiology Report See Note [...] by SADE FLOREZTranscribed on 08/31/10 1240 by CALEB MAJANOSONSign by SADE FLOREZ on 09/01/10 0720 Sign by: SADE FLOREZ 64-Boy-94120:38 CBCD ABSOLUTE NEUT 3.6 3/uL (Normal) Range: [...] mm/h (Normal) Range: 0-30 :29 Urinalysis, Office (09894) UA - BILIRUBIN Small (Normal) UA - BLOOD Negative (Normal) UA - GLUCOSE Negative (Normal) UA - KETONES Small mg/dL (Normal) UA - LEUKOCYTE ESTERASE Small (Normal) UA - NITRITE Negative (Normal) UA - PH 6.0 (Normal) UA - PROTEIN 30 mg/dL (Normal) UA - SPECIFIC GRAVITY 1.020 (Normal) URINE UROBILINGN MARIA T TIMED Normal mg/dL (Normal) 8-Gxt-737638:19 Microscopic Examination Comments: PATIENT WAS FASTINGPERFORMED BY: [facility] [id number] Bacteria None seen (Normal) Mucus Threads Present (Normal) Epithelial Cells (non renal) 0-10 {/hpf} (Normal) Range: 0 - 10 RBC 0-3 {/hpf} (Normal) Range: 0 - 3 WBC 0-5 {/hpf} (Normal) Range: 0 - 5 :19 Lipid Panel (02080) Comments: PATIENT WAS FASTINGPERFORMED BY: [employer]6370 [facility] [id number] LDL Cholesterol Calc 139 mg/dL (Abnormal) Range: 0-99 LDL/HDL Ratio 2.3 {ratio_units} (Normal) Range: 0.0-3.2 HDL Cholesterol 60 mg/dL (Normal) Comments: According to ATP-III Guidelines, HDL-C >59 mg/dL is considered anegative risk factor for CHD. VLDL Cholesterol Jennifer 39 mg/dL (Normal) Range: 5-40 Cholesterol, Total 238 mg/dL (Abnormal) Range: 100-199 Triglycerides 197 mg/dL (Abnormal) Range: 0-149 0-Ext-848530:19 URINALYSIS (41152) Comments: PATIENT WAS FASTINGPERFORMED BY: [employer]70 [facility] [id number] Bilirubin Negative (Normal) Microscopic Examination See below: (Normal) Nitrite, Urine Negative (Normal) Occult Blood Negative (Normal) Urobilinogen,Semi-Qn 0.2 mg/dL (Normal) Range: 0.0-1.9 Glucose Negative (Normal) Ketones Negative (Normal) Protein Negative (Normal) WBC Esterase 1+ (Abnormal) Appearance Clear (Normal) pH 8.0 (Abnormal) Range: 5.0-7.5 Specific [place] 1.019 (Normal) Range: 1.005-1.030 Urine-Color Yellow (Normal) 9-Opy-174304:19 Metabolic Panel, Comprehensive Comments: PATIENT WAS FASTINGPERFORMED BY: LabM[facility]6370 [facility] [id number] (62161) ALT (SGPT) 12 [iU]/L (Normal) Range: 0-40 [...] diff Comments: PATIENT WAS FASTINGPERFORMED BY: PATRIA [employer] Ehjefn8090 [facility] [id number] Information: [id number] (03479) Immature Grans (Abs) 0.0 {x10E3/uL} (Normal) Range: [...] 5.1 {x10E3/uL} (Normal) Range: 4.0-10.5 :19 TSH (64072) Comments: PATIENT WAS FASTINGPERFORMED BY: LabM[facility]in[facility]6370 [facility] [id number] TSH 1.020 {uIU/mL} (Normal) Range: 0.450-4.500 0-Opb-541966:30 UNILAT LT DIAG DIGITAL & CAD Radiology Report See Note (Normal) Comments: Exam Number: [id number] MAMMOGRAPHY - UNILATERAL DIAGNOSTIC: BREAST INDICATION:Six month [...] of attaching a ResultCode to this exam.ADDENDUM: [id number] HPBI/MUDDL Reported By: SADE FLOREZ M.D. 40-Wxc-696902:53 Microscopic Examination Comments: PATIENT WAS FASTINGPERFORMED BY: [facility]6370 [facility] [id number] Bacteria Few (Normal) Mucus Threads Present (Normal) Epithelial Cells (non renal) 0-10 {/hpf} (Normal) Range: 0 - 10 RBC 0-3 {/hpf} (Normal) Range: 0 - 3 WBC 6-10 {/hpf} (Abnormal) Range: 0 - 5 2-Lhk-050056:36 BILAT DIA DIGITAL & CAD Radiology Report See Note (Normal) Comments: Exam Number: [id number] MAMMOGRAM, BILATERAL DIAGNOSTIC DIGITAL AND CAD HISTORYBilateral [...] mammograms werealso examined with computer-aided detection software ([employer]Page, [employer] Reported By: SADE FLOREZ M.D. 84-Lvi-406506:32 ON LICENSE OF [facility] DIAG DIGITAL & CAD Radiology Report See Note (Normal) Comments: Exam Number: [id number] MAMMOGRAM, UNILATERAL RIGHT DIAGNOSTIC DIGITAL AND CAD [...] werealso examined with computer-aided detection softw are ([employer], [employer] Reported By: SADE FLOREZ M.D. 72-Suy-659688:53 T4, FREE (THYROXINE) (04927) Comments: PATIENT WAS FASTINGPERFORMED BY: [facility] CompanyDo[facility] Vmbqmt7402 [facility] [id number] T4,Free(Direct) 0.93 ng/dL (Normal) Range: 0.82-1.77 03-Ckh-139250:53 T3, FREE (TRIDOTHYRONINE) (49419) Comments: PATIENT WAS FASTINGPERFORMED BY: [facility] CompanyDo[facility] Kmubvn1229 [facility] [id number] Triiodothyronine,Free,Serum 2.7 pg/mL (Normal) Range: 2.0-4.4 :53 TSH (05015) Comments: PATIENT WAS FASTINGPERFORMED BY: [facility]6370 [facility] [id number] TSH 0.687 {uIU/mL} (Normal) Range: 0.450-4.500 :53 METABOLIC PANEL, COMPREHENSIVE Comments: PATIENT WAS FASTINGPERFORMED BY: [facility]6370 [facility] [id number] (42420) Alkaline Phosphatase, S 88 [iU]/L (Normal) Range: [...] Glucose, Serum 86 mg/dL (Normal) Range: 65-99 67-Zwn-932908:53 URINALYSIS W/O MICRO (04053) Comments: PATIENT WAS FASTINGPERFORMED BY: Innate PharmaRunnells Specialized HospitalDpkqzf7492 [facility] [id number] Microscopic Examination See below: (Normal) Nitrite, Urine Negative (Normal) Urobilinogen,Semi-Qn 0.2 mg/dL (Normal) Range: 0.0-1.9 Bilirubin Negative (Normal) Glucose Negative (Normal) Ketones Negative (Normal) Occult Blood Negative (Normal) Protein Trace (Normal) Appearance Clear (Normal) pH 8.0 (Abnormal) Range: 5.0-7.5 Specific [place] 1.025 (Normal) Range: 1.005-1.030 Urine-Color Yellow (Normal) WBC Esterase Trace (Abnormal) 12-Hwk-947249:53 LIPID PANEL (58087) Comments: PATIENT WAS FASTINGPERFORMED BY: Innate PharmaRunnells Specialized HospitalHizyhw3818 [facility] [id number] LDL/HDL Ratio 1.3 {ratio_units} (Normal) Range: 0.0-3.2 HDL Cholesterol 63 mg/dL (Normal) Comments: According to ATP-III Guidelines, HDL-C >59 mg/dL is considered anegative risk factor for CHD. LDL Cholesterol Calc 82 mg/dL (Normal) Range: 0-99 VLDL Cholesterol Jennifer 39 mg/dL (Normal) Range: 5-40 Cholesterol, Total 184 mg/dL (Normal) Range: 100-199 Triglycerides 193 mg/dL (Abnormal) Range: 0-149 :53 CBC WITH MANUAL DIFF Comments: PATIENT WAS FASTINGPERFORMED BY: [facility]6370 [facility] [id number] Information: [id number] (69198) Immature Grans (Abs) 0.0 {x10E3/uL} (Normal) Range: [...] 3.80-5.10 WBC 4.7 {x10E3/uL} (Normal) Range: 4.0-10.5 1-Mxx-270744:07 Hepatic Function Panel (7) Comments: PATIENT WAS FASTINGPERFORMED BY: LabCoRunnells Specialized HospitalYsnzxr5889 [facility] [id number] Albumin, Serum 4.2 g/dL (Normal) Range: 3.6-4.8 Alkaline Phosphatase, S 95 [iU]/L (Normal) Range: 25-165 ALT (SGPT) 13 [iU]/L (Normal) Range: 0-40 AST (SGOT) 19 [iU]/L (Normal) Range: 0-40 Bilirubin, Direct 0.12 mg/dL (Normal) Range: 0.00-0.40 Bilirubin, Total 0.4 mg/dL (Normal) Range: 0.1-1.2 Protein, Total, Serum 6.8 g/dL (Normal) Range: 6.0-8.5 9-Kwl-985657:07 Lipid Panel With LDL/HDL Comments: PATIENT WAS FASTINGPERFORMED BY: PATRIA LabCoRunnells Specialized HospitalJwjtnk1460 [place] [id number] Ratio Cholesterol, Total 195 mg/dL (Normal) Range: 100-199 HDL Cholesterol 58 mg/dL (Normal) Comments: According to ATP-III Guidelines, HDL-C >59 mg/dL is considered anegative risk factor for CHD. LDL Cholesterol Calc 98 mg/dL (Normal) Range: 0-99 LDL/HDL Ratio 1.7 {ratio_units} (Normal) Range: 0.0-3.2 Triglycerides 196 mg/dL (Abnormal) Range: 0-149 VLDL Cholesterol Jennifer 39 mg/dL (Normal) Range: 5-40 76-Wmg-142430:26 UNILAT RT DIAG DIGITAL & CAD Radiology Report See Note (Normal) Comments: Exam Number: [id number] MAMMOGRAM, UNILATERAL RIGHT DIAGNOSTIC DIGITAL AND CAD [...] mammograms werealso examined with computer-aided detection software (ImageZumba Fitnesscker, [employer] Reported By: SADE FLOREZ M.D. 69-Eik-238649:43 Thin prep Pap Comments: Source.............Cervical;EndocervicalLMP / Prev Treat...BFM=[id number]. of containers..01 CYTYC Thin Prep VialPATIENT NOT FASTINGClinical Information: ADD [id number] (40424) PERFORMED BY: Lab[address] [place] [id number] . . (Normal) DIAGNOSIS: SPRCS (Normal) Comments: NEGATIVE FOR INTRAEPITHELIAL LESION AND MALIGNANCY.CELLULAR CHANGES ASSOCIATED WITH ATROPHY ARE PRESENT.THIS SPECIMEN WAS RESCREENED PART OF OUR [facility] PROGRAM.Satisfactory for e valuation. Endocervical and/or squamous metaplasticcells (endocervical component) are present.Aubree Coe, Public Health Director (ASCP)Patricia Maria, Supervisory Public Health Director (ASCP) Note: PAPSMR (Normal) Comments: The Pap [...] resulttherefore, no HPV testing was performed. . 28-Dvg-95139:27 [facility] Report See Note (Normal) Comments: Exam Number: [id number] MAMMOGRAM, BILATERAL SCREENING DIGITAL AND CAD HISTORYRoutine [...] mammograms werealso examined with computer-aided detection software ([employer], [employer] Reported By: SADE FLOREZ M.D. 71-Ncw-399687:03 TSH ([id number]) Comments: PATIENT WAS FASTINGPERFORMED BY: [employer] [id number] [facility] [id number] TSH 1.126 {uIU/mL} (Normal) Range: 0.450-4.500 62-Kgf-078005:03 MICROALBUMIN: CREATININE RATIO Comments: PATIENT WAS FASTINGPERFORMED BY: [email or web address][id number] [facility] [id number] ([id number]) AND ([id number]) Microalb/Creat Ratio <.7 {ug/mg_creat} (Normal) Range: 0.0-30.0 Creatinine, Urine 151.7 mg/dL (Normal) Range: 15.0-278.0 Microalbum.,U,Random <1.0 ug/mL (Normal) Range: 0.0-17.0 16-Asa-057235:03 METABOLIC PANEL, COMPREHENSIVE Comments: PATIENT WAS FASTINGPERFORMED BY: [employer] [id number] [facility] [id number] ([id number]) A/G Ratio 1.4 (Normal) Range: 1.1-2.5 Albumin, [...] Serum 90 mg/dL (Normal) Range: 65-99 If -Moroccan >59 mL/min/1.73 Comments: Note: Persistent reduction for [...] Sodium, Serum 141 mmol/L (Normal) Range: 135-145 97-Ebf-144074:03 LIPID PANEL (23335) Comments: PATIENT WAS FASTINGPERFORMED BY: PATRIA [facility] [id number] [facility] [id number] Cholesterol, Total 259 mg/dL (Abnormal) Range: 100-199 [...] Cholesterol Jennifer 40 mg/dL (Normal) Range: 5-40 56-Cyj-461636:03 CBC WITH MANUAL DIFF (37294) Comments: PATIENT WAS FASTINGClinical Information: ADD DRAW FEE [id number] ADD J 33701 PERFORMED BY: [facility] [id number] [facility] [id number] Baso (Absolute) 0.0 {x10E3/uL} (Normal) Range: 0.0-0.2 [...] 11.7-15.0 WBC 4.5 {x10E3/uL} (Normal) Range: 4.0-10.5 28-Cfn-958693:49 DEXA BONE DENSITY STUDY () Radiology Report See Note (Normal) Comments: Exam Number: [id number] BONE DENSITOMETRY HISTORYScreening for osteoporosis. TECHNIQUE Bone [...] normal limits. Reported By: SADE FLOREZ M.D. 09-Fqy-736173:37 COMP METABOLIC A/G 1.1 {RATIO} (Normal) Range: [...] Report See Note (Normal) Comments: Exam Number: [id number] AP AND LATERAL RIGHT HIP Being done [...] MANDEL M.D. :58 HIP, MIN 2 VIEWS ([facility]) Radiology Report See Note (Normal) Comments: Exam Number: [id number] AP AND LATERAL RIGHT HIP Being done [...] 1.49 INDETERMINANT > OR = 1.50 SUGGEST CA :05 CPK TOTAL 58 U/L (Normal) Comments: [...] 1.49 INDETERMINANT > OR = 1.50 SUGGEST CA :40 TROPONIN-I < 0.04 ng/mL (Normal) Comments: Precautions*: NOT APPLICABLE Comments: TROPONIN-I EXPECTED VALUES < 0.50 NEGATIVE 0.50 - 1.49 INDETERMINANT > OR = 1.50 SUGGEST CA : MICHAEL 62 U/L (Normal) Comments: COMMENTS: BED [...] 11.6-14.6 WBC 6.7 K/mm3 (Normal) Range: 4.4-11.0 :07 LIPASE 277 U/L (Normal) Comments: COMMENTS: Preutions*: NOT APPLICABLE Range: 114-286 :07 LIVER Comments: COMMENTS: Precautions*: NOT APPLICABLE ALB 3.7 g/dL (Normal) Range: [...] 1.49 INDETERMINANT > OR = 1.50 SUGGEST CA :33 COMP METABOLIC A/G 1.1 {RATIO} (Normal) [...] lobectomy and isthumsectomy from 11/06/02 performed at [place], [place],(03-HINES -[id number]) with a diagnosis of thyroid lobectomy with [...] (Normal) PROTIME 12.0 s (Normal) Range: 11.7-13.3 : PTT 33.8 s (Normal) Comments: PRE-OP BLOOD WORK Range: 24.6-36.6 :27 K 3.4 mmol/L (Abnormal) Range: 3.5-5.1 :27 MG 2.1 mg/dL (Normal) Range: 1.5-2.2 :27 TSH 0.62 {uIU/mL} (Normal) Range: 0.34-4.82 Plan of Care Name Dates Details Instructions Sore throat : Follow up if no [...] Lab Indication: Hypertension Atrial fibrillation : Reviewed Health Information Assistant Letter Indication: Atrial fibrillation Atrial fibrillation : [...] Neoplasm of uncertain behavior of skin WWV . (Renamed from [employer]) : *Well Female Maintenance (KF) Indication: WWV 3. (Renamed from [employer]) WWV . (Renamed from [employer]) : Pap/Pelvic/Bimanual/Rectal/Breast Exam was done. Indication: WWV (Renamed from [employer]) Generalized anxiety disorder : FOLLOW UP IN [...] pain, acute, left upper quadrant : Reviewed Health Information Assistant Letter Indication: Abdominal pain, acute, left upper quadrant Abdominal pain, acute, left upper quadrant : Reviewed Lab Indication: Abdominal pain, acute, left upper quadrant Abdominal pain, acute, left upper quadrant : Reviewed Diagnostic Tests Indication: Abdominal pain, acute, left upper quadrant Hypercalcemia : Reviewed Lab Indication: Hypercalcemia Hypercalcemia : Reviewed Diagnostic Tests Indication: Hypercalcemia WWV . (Renamed from [employer]) : Shingles Vaccine Education 2005 Indication: WWV 3. (Renamed from [employer]) WWV . (Renamed from [employer]) : Well Female Maintenance (KF) Indication: WWV V73. (Renamed from [employer]) WWV . (Renamed from [employer]) : Pap/Pelvic/Bimanual/Rectal/Breast Exam was done. Indication: WWV V73. (Renamed from [employer]) Hyperglyceridemia : FOLLOW UP IN 3 MONTHS Indication: Hyperglyceridemia Planned Observations CALCIFEDIOL (76754)Indication: Hypertension On: 49-Tyk-720639:33 Request LIPID PANEL (34773)Indication: Mixed Hyperlipidemia On: 29-Hra-356353:32 Request TSH (THYROID STIMULATING HORMONE) (98271)Indication: Hypothyroidism On: :32 Request METABOLIC PANEL, COMPREHENSIVE (87127)Indication: Hypertension On: 95-Mwl-617946:32 Request CBC & PLATELETS (AUTO) (41266)Indication: Hypertension On: :32 Request FECAL OCCULT- Tubes sent home (54303)Indication: Encounter for screening for malignant neoplasm of colon (Renamed from Special screening for malignant neoplasms, colon) On: 38-Xde-543354:31 Request URINE ANTHONY CULTURE-MARIA T COL COUNT (61999)Indication: Abdominal pain, acute, generalized On: 32-Cfz-55559:44 Request Metabolic Panel, Comprehensive (80901)Indication: Mixed Hyperlipidemia On: :30 Request Comments: recheck in 3 months Lipid Panel (41360)Indication: Mixed Hyperlipidemia On: :30 Request Comments: recheck in 3 months LIPID PANEL (49659)Indication: Hyperglyceridemia On: 26-Rdg-679845:18 Request HEPATIC FUNCTION PANEL (13075)Indication: Hyperglyceridemia On: 18-Ltv-105406:18 Request Potassium Serum (87221)Indication: Atrial fibrillation On: 90-Ksn-776292:53 Request D-Dimer (67746)Indication: Atrial fibrillation On: 54-Pjj-518049:46 Request Magnesium (64953)Indication: Atrial fibrillation On: 30-Yij-079931:45 Request LIPID PANEL (34092)Indication: Hyperglyceridemia On: :45 Request HEPATIC FUNCTION PANEL (43809)Indication: Hyperglyceridemia On: 65-Qca-34882:45 Request TSH (43113)Indication: Hypothyroidism On: :55 Request URINALYSIS, W/ MICRO (75351)Indication: Hypertension On: :55 Request METABOLIC PANEL, COMPREHENSIVE (43383)Indication: Hypertension On: :55 Request LIPID PANEL (61668)Indication: Hypertension On: :55 Request CBC WITH MANUAL DIFF (32484)Indication: Hypertension On: :54 Request Celiac Disease Comphrehensive Profile (27651)Indication: Abdominal pain, acute, left upper quadrant On: :21 Request H. PYLORI ANALYSIS UREASE ACTIVITY (92006)Indication: Hypercalcemia On: :20 Request LIPASE (51302)Indication: Abdominal pain, acute, left upper quadrant On: :19 Request AMYLASE (20142)Indication: Abdominal pain, acute, left upper quadrant On: :18 Request HEPATIC FUNCTION PANEL (73710)Indication: Abdominal pain, acute, left upper quadrant On: :18 Request Metabolic Panel, Comprehensive (33023)Indication: Abdominal pain, acute, generalized On: :30 Request Sed Rate Erythrocyte (46018)Indication: Abdominal pain, acute, generalized On: :30 Request CBC, Platelets & Auto Diff (61894)Indication: Abdominal pain, acute, generalized On: :30 Request TSH (49477)Indication: Hypothyroidism On: 60-Qom-738118:10 Request MICROALBUMIN: CREATININE RATIO (61403) AND (16911)Indication: Hypertension On: :10 Request METABOLIC PANEL, COMPREHENSIVE (21110)Indication: Hypertension On: :10 Request LIPID PANEL (85367)Indication: Hypertension On: :10 Request CBC WITH MANUAL DIFF (36157)Indication: Hypertension On: :10 Request HEPATIC FUNCTION PANEL (98092)Indication: Hyperglyceridemia On: 27-Pql-035890:39 Request Lipid Panel (74390)Indication: Hyperglyceridemia On: 33-Lxo-802335:39 Request Comments: in six months (approximately) METABOLIC PANEL, BASIC (84215)Indication: Hypertension On: 62-Yog-206932:59 Request Comments: 6 weeks TSH (22937)Indication: Thyroid nodule On: 05-Atm-940437:56 Request Comments: 6 weeks HEPATIC FUNCTION PANEL (74810)Indication: Hyperglyceridemia On: 61-Dbe-883570:46 Request Comments: 4 months LIPID PANEL (58253)Indication: Hyperglyceridemia On: 21-Kgt-719416:46 Request Comments: 4 months TSH (18333)Indication: Thyroid nodule On: :57 Request Comments: in three months HEPATIC FUNCTION PANEL (02134)Indication: Hyperglyceridemia On: :56 Request Comments: in three months LIPID PANEL (26940)Indication: Hyperglyceridemia On: :56 Request Comments: in three months MAGNESIUM (69224)Indication: Hypokalemia On: :51 Request POTASSIUM SERUM (27254)Indication: Hypokalemia On: :51 Request TSH ([id number])Indication: Thyroid nodule On: :51 Request Comments: now Planned Encounters Medical; General Medical - On: 06-Aug-2018 8:30 [facility] Lakisha Sherman CNP, CNP, Mary E Medical; [facility] Medicare Physical - On: 13-Aug-2018 14:15 [facility] Lakisha Sherman CNP, CNP, Mary E Planned Procedures SCREENING DIGITAL TOMOSYNTHESIS OF On: 25-Jul-2017 Intent BREAST ([id number])By: Lakisha Sherman CNP, CNP, Mary E DEXA SCAN AXIAL SKELETON (75958)By: On: 25-Jul-2017 Intent Lakisha Sherman CNP, CNP, Mary E EXCISION BGN LSN FC/LID/EAR/NS On: 14-Jun-2016 Intent 0.6-1.0CM (88842)By: Lakisha Sherman CNP, CNP, Mary E MAMMOGRAM, SCREENING, BOTH BREAST On: 13-Jun-2016 Intent (09319)By: Lakisha Sherman CNP Comments: After Jul 17 2016 Lakisha HOWELL DEXA SCAN AXIAL SKELETON (10276)By: On: 13-Jun-2016 Intent Lakisha Sherman CNP, CNP, Mary E CT - Abdomen & Pelvis (Without On: 11-Dec-2015 Intent Contrast)By: Lakisha Sherman CNP, CNP, Mary E Endoscopy - Small Bowel SeriesBy: On: 23-Nov-2015 Intent Lakisha Sherman CNP, CNP, Mary E COLONOSCOPY, DIAGNOSTIC ([id number])By: On: 26-Oct-2015 Intent Lakisha Sherman CNP, CNP, Mary E BILATERAL MAMMOGRAMS (64554)By: On: 13-Jul-2015 Intent Shelia Oleary MD BILATERAL MAMMOGRAMS (74109)By: On: 12-Jun-2014 Intent Shelia Oleary MD Eprescribed prescriptions ([id number])By: On: 07-Jan-2014 Intent Shelia Oleary MD DXA, BONE DENSITY, AXIAL SKELETON On: 24-Jun-2013 Intent (18142)By: Shelia Oleary MD [id number] BEHAVIORAL COUNSELING On: 24-Jun-2013 Intent FOR OBESITY, 15 MINUTES (G0447)By: Shelia Oleary MD FLU VAC, SPLIT, >3 YEARS, INTRAMUSC On: 24-Jun-2013 Intent (50503)By: MOIRA Crowell Comments: Lot #:[id number] date:02.22Amount given:0.5mlRoute: IMSite given:L DltdGiven by: VIS and ABN signed ADMINISTRATION OF INFLUENZA VIRUS On: 24-Jun-2013 Intent VACCINE (G0008)By: MOIRA Crowell Breast Screening - BilateralBy: On: 13-Jun-2013 Intent Shelia Oleary MD Breast Screening - BilateralBy: On: 13-Jun-2013 Intent Katia Saunders LPN EKG (26148)By: Shelia Oleary MD On: 26-Oct-2012 Intent Comments: see scanned document of test done to see results reviewed today with patient Eprescribed prescriptions ([id number])By: On: 26-Oct-2012 Intent Elizabet Johnston LPN FLU VAC, SPLIT, >3 YEARS, INTRAMUSC On: 21-Sep-2012 Intent (66131)By: Jolene Puckett LPN Comments: Lot:[id number]:prefilled syringeSite: L Dltd, IMGiven by: PRINCE Carlos signed ADMINISTRATION OF INFLUENZA VIRUS On: 21-Sep-2012 Intent VACCINE (G0008)By: Jolene Puckett LPN Breast Screening - BilateralBy: On: 04-Jun-2012 Intent Shelia Ole[address] MD CT - ChestBy: Larissa Griffiths DO On: 07-May-2012 Intent Comments: pe protocol Eprescribed prescriptions ([id number])By: On: 07-May-2012 Intent Larissa Griffiths DO EKG (13002)By: Aye KEBEDE Larissa On: 16-Apr-2012 Intent Comments: nsr no acute chg Nuclear Stress Test/Stress On: 16-Apr-2012 Intent SPECT/AdenosineBy: Aye KEBEDE, Comments: pt hip replacement <2 months ago not fit or able to do treadmill at this time Larissa Holter Moniter (64284)- 24 hrBy: On: 16-Apr-2012 Intent Aye Larissa Echo CompleteBy: Aye KEBEDE Larissa On: 16-Apr-2012 Intent ADMINISTRATION OF PNEUMOCOCCAL On: 29-Jul-2011 Intent VACCINE (G0009)By: Shelia Oleary MD PNEUM VAC ADLT/IMUMNOSPR, SBC/INTRM On: 29-Jul-2011 Intent ([id number])By: Shelia Oleary MD Ultrasound - RenalBy: Anirudh GILL, On: 30-Jun-2011 Intent Shelia Boggs Breast Screening - BilateralBy: On: 09-Jun-2011 Intent Shelia Oleary MD Endoscopy - Small Bowel SeriesBy: On: 08-Nov-2010 Intent Ciesa MEDICAL LAB TECHNOLOGIST, Priscilla Ciesa MEDICAL LAB TECHNOLOGIST, Priscilla Endoscopy - Small Bowel SeriesBy: On: 25-Oct-2010 Intent Ciesa MEDICAL LAB TECHNOLOGIST, Priscilla Ciesa MEDICAL LAB TECHNOLOGIST, Priscilla UGI (With air contrast if On: 25-Oct-2010 Intent necessary)By: Ciesa MEDICAL LAB TECHNOLOGIST, Priscilla Ciesa MEDICAL LAB TECHNOLOGIST, Priscilla Ultrasound - PelvisBy: Aniruhd GILL, On: 06-Sep-2010 Intent Shelia Boggs Comments: transvaginal if need CT - Abdomen & PelvisBy: Anirudh GILL, On: 31-Aug-2010 Intent hSelia Boggs DXA, BONE DENSITY, AXIAL SKELETON On: 27-Aug-2010 Intent ([id number])By: Shelia Oleary MD Breast Diagnostic - LeftBy: Anirudh On: 05-Mar-2010 Intent Shelia GILL Comments: 8-10 Breast Diagnostic - RightBy: On: 13-Apr-2009 Intent Aubree Alba MAMMOGRAM, SCREENING, BOTH BREASTS On: 24-Oct-2008 Intent (55139)By: Shelia Oleary MD EKG (66584)By: Shelia Oleary MD On: 24-Oct-2008 Intent Radiology - Hip - BilateralBy: On: 26-Sep-2006 Intent Shelia Oleary MD Nuclear Stress Test/Stress On: 27-Jun-2006 Intent SPECT/TreadmillBy: Shelia Oleary MD Ultrasound - ThyroidBy: Anirudh GILL, On: 27-Jun-2006 Intent Shelia Boggs Instructions Name Dates Details Sinusitis, acute : How to access health [...] Mixed Hyperlipidemia : DISCONTINUED - LIPID PANEL (77067) Indication: Mixed Hyperlipidemia Mixed Hyperlipidemia : DISCONTINUED - HEPATIC FUNCTION PANEL (19242) Indication: Mixed Hyperlipidemia Hypertension : How to [...] rx at pharm Indication: Atrial fibrillation Encounters Lab Order On: 25-Jul-2018 16:31 Encounter Diagnosis: [...] patient does have durable gurjit r of senior attorney and living will. The patient has noticed nothing from the geriatic depression scale. Other providers contributing to the patient's care are substation operator apprentice (Dr. Lopez ), gastrologist (Dr. Marcelino ) [...] Nutrition: balanced diet and supplemental vitamins. The il dical issues the patient is following up for include cardiac issues, gastric reflux, high blood pressure, high cholesterol, hypothyroid, osteoporosis/osteopenia and other (IBS, obesity ).Encounter Diagnosis: Hypothyroidism (244.9), 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), Irritable bowel syndrome (564.1), GERD (530.81), Hypertension 401.1 (Renamed from Hypertension (401.0)), Osteopenia (733.90), Thyroid nodule (241.0), Hypertriglycerides (272.1), Obesity,unspecified (278.00) , Tinnitus, Liver cyst, [facility] V73.21 (Renamed from WW) [facility] Phone Encounter On: 16-Aug-2010 [...]
--- OUTSIDE RECORDS SUMMARY | 2018-12-01 05:15 | XMS RPT_ITS | Continuity of Care Document ---
:1945 Author Organization [facility] Address [address] [place] [address] Phone Care Team Providers Name Role Phone Whit LYNDALakisha E Unavailable Dr. Demetri Tanner Unavailable Krista Castillo LPN Unavailable Unavailable Preston Vance Unavailable Unavailable Aaliyah [...] Active Hypercalcemia (E83.52, 275.42) Comments: stop calcium unpfvl09.3 with nausea Status: Active Hyperglyceridemia (E78.1, 272.1) [...] mojica took out and see someone at [facility] and stable Status: Active Tremor (R25.1, 781.0) Status: Active Unspecified Diagnosis Status: Active Unspecified Diagnosis Status: Active Unspecified Diagnosis Status: Active Upper respiratory infection, viral (J06.9, 465.9) Status: Active Urinary frequency (R35.0, 788.41) Comments: will reevaluate in future Status: Active Vaginitis (N76.0, 616.10) Comments: yeast vs other Status: Active WWV V73.21 (Renamed from WW) Comments: mammo 10, BD 12 scope 2009, mother after pneumonvax. [...] {Tablet} Refills: 3 Ordered:23-Jan-2018 Whit HOWELL Lakisha DUNBRAzac HOWELL Lakisha Cartagena Start : 23-Jan-2018 Active Livalo 1 MG Oral Tablet 1 Tablet Tablet qd for 90 days Quantity: 90 {Tablet} Refills: 3 Ordered:23-Jan-2018 Whit HOWELL Lakisha DUNBARzac HOWELL Lakisha Cartagena Start : 23-Jan-2018 Active Comments:unable to take statin zetia, lipitor Multivitamin Adults 50+ Oral Tablet Active Toprol XL 50 MG Oral Tablet Extended Release 24 Hour 1 Tablet ER 24HR qd for 0 days Quantity: 90 {Tablet} Refills: 3 Ordered:17-Jun-2018 Whit HOWELL Lakisha DUNBARzac HOWELL Priscilla Start : 17-Jun-2018 Active Toprol XL 50 MG Oral Tablet Extended Release 24 Hour 1 Tablet ER 24HR qd for 0 days Quantity: 90 {Tablet} Refills: 3 Ordered:17-Jun-2018 Whit HOWELL Lakisha DUNBARzac HOWELL Priscilla Start : 17-Jun-2018 Active Zithromax Z-Sadi 250 MG Oral Tablet 1 Tablet tad for 0 days Quantity: 1 {Package} Refills: 0 Ordered:13-Apr-2018 Whit HOWELL Lakisha Osvaldo HOWELL Priscilla Start : 13-Apr-2018 Active ACTONEL, 150MG (Oral Tablet) 1 Tablet q monthly for 90 days Quantity: 3 {Tablet} Refills: 3 Ordered:15-Oct-2013 Shelia Oleary MD Start : 15-Oct-2013 End : 15-Oct-2013 Inactive ALIGN (Oral Capsule) 1 Capsule daily for 30 days Refills: 0 Ordered:08-Nov-2010 Whit HOWELL, Lakisha Riley CNP, Priscilla Start : 08-Nov-2010 End : 08-Dec-2010 [...] 0 Ordered:27-Oct-2010 Whit HOWELL, Lakisha Riley CNP, Priscilla Start : 27-Oct-2010 End : 10-Nov-2010 Inactive COLESTID, 5GM (Oral Granules) 1 Granules bid for 0 days Quantity: 1 {Packet(s)} Refills: 3 Ordered:19-Aug-2013 Preston RODRIGUEZN, Elizabet L Start : 15-Jul-2013 End : [...] 10-Oct-2016 End : 10-Oct-2016 Inactive Comments:per her weed sprayer not want her on that, needs Livalo [...] {Tablet} Refills: 0 Ordered:27-Oct-2010 Lakisha Sherman CNP ECiesa [facility], Lakisha Cartagena Start : 27-Oct-2010 End : [...] Quantity: 30 {Tablet} Refills: 0 Ordered:25-Nov-2015 Whit [facility], Lakisha Riley [facility] Lakisha Cartagena Start : 26-Oct-2015 End : 25-Nov-2015 Inactive SENOKOT, 8.6MG (Oral Tablet) 1 Tablet bid for 30 days Refills: 0 Ordered:24-Jun-2013 MOIRA Crowell Start : 18-Mar-2013 End : 24-Jun-2013 Inactive SUCRALFATE, 1GM (Oral Tablet) 1 (one) Tablet qid 1 hour before meals and at bedtime for 14 days Quantity: 56 {Tablet} Refills: 0 Ordered:23-Nov-2015 Whit [facility], Lakisha Riley [facility] Lakisha Cartagena Start : 23-Nov-2015 End : [...] Start : 05-Mar-2010 Inactive Comments:muscle aches ZOSTAVAX, 30246EVI/0.65ML (Subcutaneous Solution Reconstituted) uad For Solution SQ [...] Visit Report Result: Comments: See Note; NOTES: [facility] [place] [address] OFFICE VISIT Date of Service: 09/28/17 MR#: [id number] Acct: [id number] Name: KAMRYN NEUMANN ep #: [id number] : 1945 Provider: DIETER Mahan Age/Sex: 71/F Location: [facility] Status: Signed HPI 1 Y FU: [...] brachial Intake Visit Reasons: 1 Y FU Sports Equipment Racker Required: No Accompanied by: None Is patient [...] prior to saving. Follow Up 1 Year (DIAL BUFFER) Coding Level of Care Code Off vis,est,level 3 Diagnoses Paroxysmal atrial fibrillation I48.0 Palpitations R00.2 Mixed hyperlip idemia E78.2 Hyperlipidemia type: mixed hyperlipidemia 09/28/17 1242 <Electronically signed by Michael Mahan BAND BUILDER-C> Date Michael Mahan BAND BUILDER-C 09/30/17 1708<Electronically signed by Gerald Bell MD> Cosigner Signature: Date (if applicable) Gerald Bell MD CC: Lakisha Sherman NP 13-Sep-2017 Dexa Bone Density Study (HP) Result: Comments: See Note; NOTES: [facility] Imaging Services [address] [place] [address] Dexa Bone Density Study () MR#: [id number] Acct: [id number] Name: KAMRYN NEUMANN Rep #: [id number] : 1945 F 71 From: Wayne Rabago MD PCP: Lakisha Sherman NP Status: REG CLI Study: Dexa Bone Density Study (HP) Date of Exam: 09/13/17 Exam# [id number] Ordering Dr: Lakisha Sherman STUDY : DUAL [...] Rabago MD at 9:21 EST T kvng [phone], Service support , CC: Lakisha Sherman NP Leather Sprayer: Signed 07-Sep-2017 SCREENING MAMM (CAD), BRANDO Result: Comments: See Note; NOTES: [facility] Imaging Services [address] [place] [address] SCREENING MAMM (CAD), BILAT MR#: [id number] Acct: [id number] Name: KAMRYN NEUMANN Rep #: [id number] : 1945 F 71 From: Jimenez Harris MD PCP: Lakisha Sherman NP Status: REG CLI Study: SCREENING MAMM (CAD), BILAT Date of Exam: 09/07/17 Exam# [id number] Ordering Dr: Lakisha Sherman MAMMOGRAP HY - [...] delay biopsy of a clinically suspicious abnormality. [id number] Electronically Signed: Jimenez Harris MD at 8:01 EST , Service support , CC: Lakisha Sherman NP Leather Sprayer: Signed 06-Oct-2016 Left Heart Cath/COR/LV Percut Result: Comments: See Note; NOTES: [facility] Imaging Services [address] [place] [address] Cardiac Catheterization Report MR#: [id number] Acct: [id number] Name: KAMRYN NEUMANN Rep #: [id number] : 1945 70 From: Kp Lopez MD [...] radial area. Intra-arterial cocktail was administered. A 5-Thai JL3.5 catheter was then advanced to the ascending aorta, flushed, and pressures recorded. Left coronary ostium was identified and engaged. Left coronary angiography performed in multiple views. Following this, the catheter was removed and a 5-Thai JR5 catheter was inserted. The right coron [...] noted in this vessel. A large septal zigzag appliquer was also noted. The left anterior descending [...] care. Kp Lopez MD T: NTS JOB: [id number] 10/07/16 1040 <Electron ically signed by Kp Lopez MD> Date Kp Lopez MD Cosigner Signature (If Indicated): Date CC: Lakisha Sherman; Kp Lopez MD Date Dictated: 10/06/161702 Date Transcribed: 10/06/161702 Leather Sprayer: Signed 04-Oct-2016 Chest PA and Lateral Result: Comments: See Note; NOTES: [facility] Imaging Services [address] [place] [address] Verdana 4d Chest PA and Lateral MR#: [id number] Acct: [id number] Name: KAMRYN NEUMANN R Rep # : [id number] : 1945 F 70 From: Wayne Rabago MD PCP: Lakisha Sherman Status: PRE CLI Study: Chest PA and Lateral Date of Exam: 10/04/16 Exam# [id number] Ordering Dr: Kp Lopez MD STUDY: X- [...] Wayne Rabago MD at 14:21 EST Tel [phone], Service support [phone], CC: Lakisha Sherman; Kp Lopez MD Leather Sprayer: Signed 03-Oct-2016 Nuclear Stress Test - Chemical Result: Comments: See Note; NOTES: [facility] Imaging Services [address] [address] Verdana 4d Nuclear Stress Test - Chemical MR#: [id number] Acct: [id number] Name: KINGS NEUMANN CIA R Rep #: [id number] : 1945 70 From: Kp Lopez MD [...] fraction. Kp Lopez MD T: NTS JOB: [id number] 10/07/16 1039 <Electronically signed by Kp Lopez MD> Date ___ Kp Lopez MD CC: Lakisha Sherman; Kp Lopez MD Date Dictated: 10/03/161633 Date Transcribed: 10/03/161633 Leather Sprayer: Signed 06-Sep-2016 Bilat Scrn Digital AND CAD Result: Comments: See Note; NOTES: [facility] Imaging Services [address] [place] [address] Verdana 4d Bilat Scrn Digital AND CAD MR#: [id number] Acct: [id number] Name: KAMRYN NEUMANN Rep #: [id number] : 1945 F 70 From: Wayne Rabago MD PCP: Lakisha Sherman Status: PRE CLI Study: Bilat Scrn Digital AND CAD Date of Exam: 09/06/16 Exam# [id number] Ordering Dr: Laiksha Sherman AMMOGRAPHY - BILATERAL SCREENING REASON FOR [...] delay biopsy of a clinically suspicious abnormality. [id number] Electronically Signed: Wayne Rabago MD at 7:53 EST Tel [phone], Service support [phone], CC: Lakisha Sherman Leather Sprayer: Signed 18-Dec-2015 Abdomen/Pelvis without Cont Result: Comments: See Note; NOTES: [facility] Imaging Services [address] [place] [address] Verdana 4d Abdomen/Pelvis without Cont MR#: [id number] Acct: [id number] Name: KAMRYN NEUMANN Rep #: [id number] : 1945 F 70 From: Clifford Khan MD PCP: Lakisha Sherman Status: REG CLI Study: Abdomen/Pelvis without Cont Date of Exam: 12/18/15 Exam# [id number] Ordering Dr: Lakisha Sherman STUDY: CT ABDOMEN [...] MD at 20:40 EDT , Service support [phone], CC: Lakisha Sherman Leather Sprayer: Signed 17-Jul-2015 Bilat Scrn Digital AND CAD Result: Comments: See Note; NOTES: [facility] Imaging Services [address] [place] [address] Verdana 4d Bilat Scrn Digital AND CAD MR#: [id number] Acct: [id number] Name: KAMRYN NEUMANN Rep #: [id number] : 1945 F 69 From: Wayne Rabago MD PCP: Shelia Oleary MD Status: REG CLI Study: Bilat Scrn Digital AND CAD Date of Exam: 07/17/15 Exam# [id number] Johan garber Dr: Shelia Oleary MD MAMMOGRAPHY [...] Wayne Rabago MD at 14:38 EST Tel [phone], Service supp ort [phone], CC: Shelia Oleary MD Leather Sprayer: Signed 14-Jul-2014 Bilat Scrn Digital & CAD Result: Comments: See Note; NOTES: [facility] Imaging Services [address] [place] [address] Breast Imaging Report MR#: [id number] Acct: [id number] Name: KAMRYN NEUMANN Rep #: [id number] : 1945 F 68 From: Wayne Rabago MD PCP: Shelia Oleary MD Status: REG CLI Exam# [id number] Ordering Dr: Shelia Oleary MD MAMMOGRAPHY - [...] Wayne Rabago MD at 15:42 EST Tel [phone], Service support [phone], CC: Shelia Oleary MD Leather Sprayer: Signed 03-Jul-2013 Dexa Bone Density Study (HP) Result: Comments: See Note; NOTES: [facility] Imaging Services [address] [place] [address] Bone Density Report MR#: [id number] Acct: [id number] Name: KAMRYN NEUMANN Rep #: [id number] : 1945 F 67 From: Wayne Rabago MD PCP: Status: [facility] CLI Study: Dexa Bone Density Study (HP) Date of Exam: 07/03/13 Exam# [id number] Ordering Dr: Shelia Oleary MD STUDY: DUAL [...] July 03, 2013 at 1:44:42 PM EDT [phone] Electro nically Signed GP/GP If you are the referring physician and would like to consult with the radiologist who provided this interpretation, please contact Wayne Rabago M.D. at [phone]. If this radiologist is unavailable, you will be directed to another radiologist to assist. If you are a patient with a question regarding this report, please contact your referring physician directly. Professional Interpretation Provided By: haku, Phone , These documents contain legally protected [...] of these documents. CC: Shelia Oleary MD Leather Sprayer: Signed [facility]-Jun-2013 [facility] Result: Comments: See Note; NOTES: [facility] Imaging Services [address] [place] [address] Breast Imaging Report MR#: [id number] Acct: [id number] Name: KAMRYN NEUMANN Rep #: [id number] : 1945 F 67 From: Wayne Rabago MD PCP: Status: REG CL Exam# [id number] Ordering Dr: Shelia Oleary MD MAMMOGRAPHY - [...] phys ician directly. Professional Interpretation Provided By: haku, Phone , These documents contain legally protected [...] of these documents. CC: Shelia Oleary MD Leather Sprayer: Signed Family History Unknown Family Member Name [...] kg/m2 Body Surface Area Calculated 2.03 m2 25-Rgl-697680:18 Temperature 97.5 f Pulse 73 /min Comments: [...] kg/m2 Body Surface Area Calculated 1.98 m2 72-Ayv-058890:40 Pulse 80 /min Comments: Pattern: Regular Respiration [...] 0.00 cm Results Date Description Value Details 16-Tlv-816063:20 THROAT CULTURE (39566) Comments: PATIENT NOT FASTINGPERFORMED BY: Verismo NetworksSaint [facility] [id number] Information: SRC: Result 1 RRF (Normal) Comments: Routine respiratory dodie Upper Respiratory Culture Final report (Normal) 04-Pbu-48799:59 Rapid Strep Test, Office (29098) Rapid Strep Test, Office Negative (Normal) :39 URINE ANTHONY CULTURE-MARIA T COL Comments: PATIENT NOT FASTINGPERFORMED BY: [employer]iatta [facility] [id number] Information: SRC:UC COUNT (05070) Result 1 BETAGF (Abnormal) Comments: Beta hemolytic Streptococcus, group F3,000 Colonies/mLMixed urogenital flora3,000 Colonies/mL Urine Final report (Abnormal) Culture,Comprehensive 32-Zar-58576:28 Urinalysis, Office (69398) UA - LEUKOCYTE ESTERASE Trace (Normal) UA - NITRITE Negative (Normal) URINE UROBILINGN MARIA T TIMED 2 mg/dL (Normal) UA - PROTEIN Negative mg/dL (Normal) UA - PH 7.5 (Normal) UA - BLOOD Negative (Normal) UA - SPECIFIC GRAVITY 1.020 (Normal) UA - KETONES Negative mg/dL (Normal) UA - BILIRUBIN Negative (Normal) UA - GLUCOSE Negative (Normal) :44 CALCIFEDIOL (59937) Comments: PATIENT WAS FASTINGPERFORMED BY: Ver[employer] Networksox [facility]Nov[facility] [id number] Vitamin D, 25-Hydroxy 47.5 ng/mL (Normal) Range: 30.0-100.0 Comments: Vitamin D deficiency has been defined by the [place] and an Endocrine Society practice guideline as alevel of serum 25-OH vitamin D less than 20 ng/mL (1,2).The Endocrine Society went on to further define vitamin Dinsufficiency as a level between 21 and 29 ng/mL (2).1. IOM ([place] [employer]). 2010. Dietary reference intakes for calcium and D. [place]: The National AcademKraken Press.2. Joe MF, Carrie ROBERSON, Mellisa SALMON, et al. Evaluation, treatment, and prevention of vitamin D deficiency: an Endocrine Society clinical practice guideline. JCEM. 2010; 96(7):1911-30. 19-Jul-20178:44 CBC, PLATELETS & AUT DIFF Comments: PATIENT WAS FASTINGPERFORMED BY: [facility] Bxkxfm6326 [facility] [id number] Information: NO UR @ UPLOAD (30734) Immature Grans (Abs) 0.0 {x10E3/uL} (Normal) Range: [...] PANEL, COMPREHENSIVE Comments: PATIENT WAS FASTINGPERFORMED BY: LabCoDeborah Heart and Lung CenterCcxqim2432 [facility] [id number] (76617) ALT (SGPT) 13 [iU]/L (Normal) Range: 0-32 [...] (THYROID STIMULATING Comments: PATIENT WAS FASTINGPERFORMED BY: LabCoDeborah Heart and Lung CenterLqkddg5765 [facility] [id number] HORMONE) (26980) TSH 0.771 {uIU/mL} (Normal) Range: 0.450-4.500 :44 LIPID PANEL (92720) Comments: PATIENT WAS FASTINGPERFORMED BY: LabCoDeborah [facility] and Lung CenterShdtam7980 [facility] [id number] LDL/HDL Ratio 1.4 {ratio_units} (Normal) Range: 0.0-3.2 [...] 100-199 :55 Basic Metabolic Profile (BMP) Comments: [facility] [address] [place], [address] GAP 6 (Normal) Range: 5-15 CO2 30.0 [...] 7-18 GLU 93 mg/dL (Normal) Range: 70-110 42-Cyu-71455:55 CBC-Complete Blood Cnt No Diff Comments: [facility] [address] [place], [place], [id number] ; another doc MPV 9.7 fL (Normal) [...] 4.2-5.4 WBC 5.0 K/mm3 (Normal) Range: 4.4-11.0 44-Dpg-51933:39 Lipid Profile Comments: Order Date: 09/27/16Order Info: [id number] - *Hepatic Function PanelOrder Date: 09/27/16Order Info: 88091-8 - *Lipid Profile CC PCPComments: 12 hours fasting, may have water.[facility] La [address] [place], [place], [address] VLDL 34 mg/dL (Normal) Range: 5-40 LDL [...] 200-240 mg/dL Borderline >240 mg/dL High Risk 05-Rit-30912:39 Liver Profile Comments: Order Date: 09/27/16Order Info: 0788-1 - *Hepatic Function PanelOrder Date: 09/27/16Order Info: 19211-3 - *Lipid Profile CC PCPComments: 12 hours fasting, may have water.[facility] [place], [address] ; another doc D BILI 0.14 mg/dL (Normal) Range: 0.00-0.30 T BILI 0.60 mg/dL (Normal) Range: 0.20-1.00 ALT 18 U/L (Normal) Range: 12-78 ALK P 91 U/L (Normal) Range: 45-117 AST 20 U/L (Normal) Range: 15-37 GLOB 3.9 g/dL (Abnormal) Range: 2.3-3.5 ALB 3.5 g/dL (Normal) Range: 3.4-5.0 T PROT 7.4 g/dL (Normal) Range: 6.4-8.2 14-Jun-20162:30 Pathology Report Comments: PERFORMED BY: KWCYT [facility] [place] Cyto Lcezc27074 [facility] [id number] Information: [id number] See MATER Comments: Material submitted: .SHAVE BIOPSY [...] BISECTED. THE SPECIMEN IS SUBMITTEDIN CASSETTE(S) A./LMSLMS/LMSCPT .404968 :41 TSH (THYROID STIMULATING Comments: PATIENT WAS FASTINGPERFORMED BY: PATRIA [facility] Ojsrba0509 [address]Dublin [place] [id number] HORMONE) (35043) TSH 1.110 {uIU/mL} (Normal) Range: 0.450-4.500 :41 CALCIFEDIOL (15785) Comments: PATIENT WAS FASTINGPERFORMED BY: PATRIA [facility] Bwkfkx8865 [address] RoadDublin [place] [id number] Vitamin D, 25-Hydroxy 45.8 ng/mL (Normal) Range: 30.0-100.0 Comments: Vitamin D deficiency has been defined by the [place] [employer] and an Endocrine Society practice guideline as alevel of serum 25-OH vitamin D less than 20 ng/mL (1,2).The Endocrine Society went on to further define vitamin Dinsufficiency as a level between 21 and 29 ng/mL (2).1. IOM ([place]). 2010. Dietary reference intakes for calcium and D. [place]: The National Academies Press.2. Joe MF, Carrie NC, Paramjit-Devon SALMON, et al. Evaluation, treatment, and prevention of vitamin D deficiency: an Endocrine Society clinical practice guideline. JCEM. 2010; 96(7):1911-30. :41 CBC, Platelets & Auto Diff Comments: PATIENT WAS FASTINGPERFORMED BY: [facility] Xbdmrs1455 [address] RoadDublin [place] [id number] (64235) Immature Grans (Abs) 0.0 {x10E3/uL} (Normal) Range: [...] {x10E3/uL} (Normal) Range: 3.4-10.8 14-Jun-20168:41 Lipid Panel (24409) Comments: PATIENT WAS FASTINGPERFORMED BY: LabCoDeborah Heart and Lung CenterVlcmfh6121 [facility] [id number] LDL/HDL Ratio 1.6 {ratio_units} (Normal) Range: 0.0-3.2 [...] Panel, Comprehensive Comments: PATIENT WAS FASTINGPERFORMED BY: [facility]CoDeborah [facility] and Lung CenterVyzjyr7756 [facility] [id number]; OV 06/27 (97693) ALT (SGPT) 17 [iU]/L (Normal) Range: 0-32 [...] Glucose, Serum 80 mg/dL (Normal) Range: 65-99 38-Jji-807508:28 Celiac Disease Profile Comments: [facility] (refer to report for specific site)refer to [...] Comments: Please note reference interval changePerformed at: [address] [id number] Director: Itz Hartley PhD, Phone: [phone] 79-Nlr-209571:36 Fecal Occult Blood , Office (88450) Fecal Occult Blood , Office (Inhouse) negative (Normal) 65-Cwf-928115:49 HELICOBACTER PYLORI ANTIBODY Comments: PATIENT NOT FASTINGPERFORMED BY: [facility] [place] [address] [id number] (47560) H. pylori, IgG Abs <0.9 U/mL (Normal) Range: 0.0-0.8 Comments: Negative <0.9 Indeterminate 0.9 - 1.0 Positive >1.0 96-Mss-602659:49 CBC, Platelets & Auto Comments: PATIENT NOT FASTINGPERFORMED BY: [address] [id number] Information: [id number] Diff (22906) Immature Grans (Abs) 0.0 {x10E3/uL} (Normal) Range: [...] 3.77-5.28 WBC 6.5 {x10E3/uL} (Normal) Range: 3.4-10.8 86-Ept-813252:49 Metabolic Panel, Comprehensive Comments: PATIENT NOT FASTINGPERFORMED BY: [facility]CoDeborah [facility] and Lung CenterNxpohh4089 [facility] [id number] (58021) ALT (SGPT) 14 [iU]/L (Normal) Range: 0-32 [...] Glucose, Serum 86 mg/dL (Normal) Range: 65-99 15-Arj-972914:15 URINE ANTHONY CULTURE-IDENTIFICATN Comments: PATIENT NOT FASTINGPERFORMED BY: [facility]CoDebor[facility] Lung CenterUjcvbc7838 [facility] [id number] Information: [id number] (85911) Result 1 MUG (Normal) Comments: Mixed urogenital flora2,000 Colonies/mL Urine Culture,Comprehensive Final report (Normal) 61-Yle-13471:46 Urinalysis, Office (09875) UA - LEUKOCYTE ESTERASE Small (Normal) UA - NITRITE Negative (Normal) URINE UROBILINGN MARIA T TIMED Normal mg/dL (Normal) UA - PROTEIN Negative mg/dL (Normal) UA - PH 5 (Abnormal) UA - BLOOD Negative (Normal) UA - SPECIFIC GRAVITY 1.030 (Abnormal) UA - KETONES Moderate mg/dL (Normal) UA - BILIRUBIN Small (Normal) UA - GLUCOSE Negative (Normal) 3-Oow-147506:02 T4 Total, Thyroxin Comments: SEND RESULTS TO DR. RICK'S OFFICE WELL [facility] [address] [place], [address] T4 THYROXIN 8.8 ug/dL (Normal) Range: 4.8-13.9 8-Ogk-535472:02 Thyroid Stim Hormone (TSH) Comments: SEND RESULTS TO DR. RICK'S OFFICE WELL [facility] [address] [place], [place], [address] TSH 1.28 {uIU/mL} (Normal) Range: 0.358-3.74 07-Uul-941194:51 Rapid Strep Test, Office (60787) Rapid Strep Test, Office Negative (Normal) 07-Ivi-484649:35 Throat Culture (65192) Comments: PATIENT NOT FASTINGPERFORMED BY: [employer]70 [facility] [id number] Information: SRC:THRT [id number] Result 1 RRF (Normal) Comments: Routine respiratory dodie Upper Respiratory Culture Final report (Normal) 13-Aug-20148:31 METABOLIC PANEL, COMPREHENSIVE Comments: PATIENT WAS FASTINGPERFORMED BY: [employer] LabCoInstagram70 [facility] [id number] (94261) ALT (SGPT) 11 [iU]/L (Normal) Range: 0-32 [...] mg/dL (Normal) Range: 65-99 :31 LIPID PANEL (89982) Comments: PATIENT WAS FASTINGPERFORMED BY: [employer] Prsmxy9340 [facility] [id number] LDL/HDL Ratio 1.5 {ratio_units} (Normal) Range: 0.0-3.2 [...] MANUAL DIFF Comments: PATIENT WAS FASTINGPERFORMED BY: [facility] OrthopedicsDeborah Heart and Lung CenterGvlbrf2219 [facility] [id number] Information: [id number] (25202) Immature Grans (Abs) 0.0 {x10E3/uL} (Normal) Range: [...] 4.8 {x10E3/uL} (Normal) Range: 3.4-10.8 :31 TSH (82936) Comments: PATIENT WAS FASTINGPERFORMED BY: [facility]opedicsDeborah Heart and Lung CenterRxynox7626 [facility] [id number] TSH 1.440 {uIU/mL} (Normal) Range: 0.450-4.500 :03 Metabolic Panel, Comments: recheck in 3 months; PATIENT WAS FASTINGPERFORMED BY: LeadPagesDeborah Heart and Lung CenterZyfuig1857 [facility] [id number] Information: [id number] Comprehensive (59093) ALT (SGPT) 13 [iU]/L (Normal) Range: 0-32 [...] mg/dL (Normal) Range: 65-99 :03 Lipid Panel (39131) Comments: recheck in 3 months; PATIENT WAS FASTINGPERFORMED BY: LabCoDeborah [facility] Lung CenterCdself7176 [facility] [id number] LDL/HDL Ratio 1.4 {ratio_units} (Normal) Range: 0.0-3.2 LDL Cholesterol Calc 84 mg/dL (Normal) Range: 0-99 VLDL Cholesterol Jennifer 43 mg/dL (Abnormal) Range: 5-40 HDL Cholesterol 62 mg/dL (Normal) Comments: According to ATP-III Guidelines, HDL-C >59 mg/dL is considered anegative risk factor for CHD. Triglycerides 215 mg/dL (Abnormal) Range: 0-149 Cholesterol, Total 189 mg/dL (Normal) Range: 100-199 :44 Urinalysis, Office (55266) UA - BILIRUBIN Negative (Normal) UA - [...] manual diff Comments: PATIENT WAS FASTINGPERFORMED BY: [facility] Qcgllh5013 [place] [facility] [id number] Information: [id number] (41469) Immature Grans (Abs) 0.0 {x10E3/uL} (Normal) Range: [...] 5.1 {x10E3/uL} (Normal) Range: 3.4-10.8 :15 Ferritin (65677) Comments: PATIENT WAS FASTINGPERFORMED BY: [facility] OrthopedicsNorthern Navajo Medical CenterSywcob2034 [facility] [id number] Ferritin, Serum 43 ng/mL (Normal) Range: 15-150 :15 Lipid Panel (07509) Comments: PATIENT WAS FASTINGPERFORMED BY: Mx OrthopedicsDeborah Heart and Lung CenterVnclyf7233 [facility] [id number] LDL/HDL Ratio 2.3 {ratio_units} (Normal) Range: 0.0-3.2 [...] Panel, Comprehensive Comments: PATIENT WAS FASTINGPERFORMED BY: Mx OrthopedicsDeborah Heart and Lung CenterKhresr4521 [facility] [id number] (87705) ALT (SGPT) 13 [iU]/L (Normal) Range: 0-32 [...] 83 mg/dL (Normal) Range: 65-99 :15 CALCIFIDIOL (12425) VIT D 25 Comments: PATIENT WAS FASTINGPERFORMED BY: [facility]6370 [facility] [id number] Vitamin D, 25-Hydroxy 32.6 ng/mL (Normal) Range: 30.0-100.0 Comments: Vitamin D deficiency has been defined by the [place] [employer] and an Endocrine Society practice guideline as alevel of serum 25-OH vitamin D less than 20 ng/mL (1,2).The Endocrine Society went on to further define vitamin Dinsufficiency as a level between 21 and 29 ng/mL (2).1. IOM ([place] [employer]). 2010. Dietary reference intakes for calcium and D. [place]: The National Academies Press.2. Joe MF, Carrie NC, Mellisa SALMON, et al. Evaluation, treatment, and prevention of vitamin D deficiency: an Endocrine Society clinical practice guideline. JCEM. 2010; 96(7):1911-30. :15 TSH (54227) Comments: PATIENT WAS FASTINGPERFORMED BY: [facility]6370 [facility] [id number] TSH 1.050 {uIU/mL} (Normal) Range: 0.450-4.500 9-Ici-937949:30 BILAT SCRN DIGITAL & CAD Radiology Report [...] Rabago M.D.June 18, 2012 at 12:43:13 PM [phone] Signed GP/GP If you are the referring physician and would like to consult with theradiologist who provided this interpretation, please contact Melody Underwood at [phone]. If this radiologist is unavailable, youwill be directed to another radiologist to assist. If you are a patient with a question regarding this report, pleasecontactyour referring physician directly. Professional Interpretation Provided By: haku, Phone , These do cuments contain legally [...] MG 2.1 mg/dL Range: 1.8-2.4 11:21 (Normal) 66-Oxa-51729:00 CHEST WITH CONTRAST Radiology Report See Note [...] Cronin D.O.May 07, 2012 at 8:20:03 PM [phone] Signed BE/BE If you are the referring physician and would like to consult with theradiologist who provided this interpretation, please contact Moises Cronin D.O. at [phone]. If this radiologist is unavailable, you will bedirected to another radiologist to assist. If you are a patient with a question regarding this report, pleasecontactyour referring physician directly. Professional Interpretation Provided By: haku, Phone , Thes e documents contain legally [...] on 05/07/122035 Sign by: Moises Cronin MD 22-Tsb-608292:23 Hemoglobin Glyclated (HGB A1C) (17095) HEMOGLOBIN GLYCLATED (HGB A1C) 5.4 % (Normal) Range: 4.6 - 7.1 59-Urh-408741:32 MYOCARD PERF STRESS/REST MULT Radiology Report See [...] The patient was injected with 32.0 mCi lfKb16f Cardiolite and subsequently stress SPECT Cardiolite nuclear [...] 04/24/12 1517 Sign by: Gerald Bell MD 35-Qpy-45216:36 Metabolic Panel, Basic Comments: re check 2 weeks; PATIENT NOT FASTINGPERFORMED BY: BrainCells LabCoKurve TechnologyBkkdmh1849 [place] [facility] OaklandTRONICS GROUPCritical access hospital [id number] Information: [id number] (88981) Calcium, Serum 9.8 mg/dL (Normal) Range: 8.6-10.2 [...] Glucose, Serum 88 mg/dL (Normal) Range: 65-99 8-Fcd-296262:34 METABOLIC PANEL, COMPREHENSIVE Comments: PATIENT NOT FASTINGPERFORMED BY: LabCoMyStargo Enterprises Yljaau3487 McguireChannelEyesCritical access hospital [id number] (83116) ALT (SGPT) 14 [iU]/L (Normal) Range: 0-40 [...] Glucose, Serum 102 mg/dL (Abnormal) Range: 65-99 4-Neh-044113:34 CBC WITH MANUAL DIFF Comments: PATIENT NOT FASTINGPERFORMED BY: LabCoDeborah Heart and Lung CenterGswmvc2578 [facility] [id number] Information: [id number] (61601) Immature Grans (Abs) 0.0 {x10E3/uL} (Normal) Range: [...] 3.77-5.28 WBC 5.5 {x10E3/uL} (Normal) Range: 4.0-10.5 4-Xxg-162838:34 TSH (90371) Comments: PATIENT NOT FASTINGPERFORMED BY: LabCoDeborah Heart and Lung CenterHgojyx3302 [facility] [id number] TSH 1.040 {uIU/mL} (Normal) Range: 0.450-4.500 11-Apr-20129:22 Metabolic Panel, Basic Comments: PATIENT NOT FASTINGPERFORMED BY: LabCo[address] [id number] Information: [id number] (27292) Calcium, Serum 9.3 mg/dL (Normal) Range: 8.6-10.2 [...] 88 mg/dL (Normal) Range: 65-99 :08 TSH (80137) Comments: PATIENT NOT FASTINGPERFORMED BY: [facility]6370 [facility] [id number] TSH 0.597 {uIU/mL} (Normal) Range: 0.450-4.500 :08 METABOLIC PANEL, COMPREHENSIVE Comments: PATIENT NOT FASTINGPERFORMED BY: [facility]6370 [facility] [id number] (72599) ALT (SGPT) 16 [iU]/L (Normal) Range: 0-40 [...] Glucose, Serum 110 mg/dL (Abnormal) Range: 65-99 5-Mani-28990:08 CBC WITH MANUAL DIFF Comments: PATIENT NOT FASTINGPERFORMED BY: [facility] Ujswkp2811 [facility] [id number] Information: [id number] (62529) Immature Grans (Abs) 0.0 {x10E3/uL} (Normal) Range: [...] 3.77-5.28 WBC 5.1 {x10E3/uL} (Normal) Range: 4.0-10.5 13-Dec-20118:32 Microscopic Examination Comments: PATIENT WAS FASTINGPERFORMED BY: LabCoDeborah Heart and Lung CenterWnhfpr1495 [facility] [id number] Bacteria None seen (Normal) Mucus Threads Present (Normal) Epithelial Cells (non renal) 0-10 {/hpf} (Normal) Range: 0 - 10 RBC 0-3 {/hpf} (Normal) Range: 0 - 3 WBC 0-5 {/hpf} (Normal) Range: 0 - 5 12-Aug-20118:37 Pathology Report Comments: PERFORMED BY: MARIO [facility] Bxtq49128 [facility] [id number] BY: Beckie [facility] Wrozsnfvo968 [facility] [id number] 2070Clinical Information: [id number] See MATER Comments: Material submitted: .BACKClinical history: .ATYPICAL MOLE WITH JAMIA CYST Note (Normal) Diagnosis:EPIDERMOID CYST..COMMENT:MARGINS FREE OF TUMOR.NY08/16/2011Addendum: .MULTIPLE RECUTS WERE MADE INTO THE BLOCK AND A COMPOUND NEVUSWITH ARCHITECTURAL DISORDER AND MILD TO MODERATE CYTOLOGIC ATYPIAWAS FOUND..COMMENT:MARGINS FREE OF NEVUS CE LLS.08/23/2011ddendum Electronically Signed by Wanda Reyes M.D., DermatopathologistElectronically signed: .Delia Reyes MD, DermatopathologistGross descript ion: .RECEIVED IN [...] CONTAIN THE FIVE REMAININGSECTIONS.XEC/JASPathologist provided ICD-9:706.2, 216.5CPT .895573 :32 TSH (02473) Comments: PATIENT WAS FASTINGPERFORMED BY: [facility] Woiuoq2163 [facility] [id number] TSH 1.170 {uIU/mL} (Normal) Range: 0.450-4.500 :32 URINALYSIS, W/ MICRO (92593) Comments: PATIENT WAS FASTINGPERFORMED BY: [facility] [employer] [facility] [id number] Microscopic Examination See below: (Normal) Nitrite, Urine Negative (Normal) Urobilinogen,Semi-Qn 0.2 mg/dL (Normal) Range: 0.0-1.9 Bilirubin Negative (Normal) Occult Blood Negative (Normal) Ketones Negative (Normal) Glucose Negative (Normal) Protein Negative (Normal) WBC Esterase 1+ (Abnormal) Appearance Clear (Normal) Urine-Color Yellow (Normal) pH 7.0 (Normal) Range: 5.0-7.5 Specific Peyton 1.017 (Normal) Range: 1.005-1.030 :32 METABOLIC PANEL, COMPREHENSIVE Comments: PATIENT WAS FASTINGPERFORMED BY: [facility] Slttpr6065 [facility] [id number] (78540) ALT (SGPT) 14 [iU]/L (Normal) Range: 0-40 [...] mg/dL (Normal) Range: 65-99 :32 LIPID PANEL (53324) Comments: PATIENT WAS FASTINGPERFORMED BY: FlirtomaticCritical access hospital [id number] LDL Cholesterol Calc 100 mg/dL (Abnormal) Range: [...] MANUAL DIFF Comments: PATIENT WAS FASTINGPERFORMED BY: Pixeon6370 [place] [facility] [id number] Information: [id number] (98002) Immature Grans (Abs) 0.0 {x10E3/uL} (Normal) Range: [...] 3.80-5.10 WBC 4.2 {x10E3/uL} (Normal) Range: 4.0-10.5 95-Ptn-747027:31 Thin prep Pap Comments: Source.............Cervical;EndocervicalLMP / Prev Treat...GOS=584698Lf. of containers..01 CYTYC Thin Prep VialPATIENT NOT FASTINGPERFORMED BY: [facility] [address] [id number] (40138) [id number] Information: [id number] Note: PAPSMR (Normal) Comments: The Pap smear [...] PRESENT.THIS SPECIMEN WAS RESCREENED PART OF OUR CABLE DISPATCHER PROGRAM.Satisfactory for e valuation. Endocervical component may not bedistinguished in cases of atrophy.Allie Villafuerte, Wastewater Technician ([facility])Parul Singh, Supervisory Wastewater Technician ([facility]) 33-Neo-277522:27 KIDNEY Radiology Report See Note (Normal) Comments: [...] 07/05/11 1105 Sign by: Wayne Rabago MD 6-Qqt-199315:26 BILAT SCRN DIGITAL & CAD Radiology Report [...] FUNCTION PANEL Comments: PATIENT WAS FASTINGPERFORMED BY: Mx OrthopedicsDeborah Heart and Lung CenterUmweky5944 [facility] [id number] Information: [id number]; appt 06/30/11 (16702) ALT (SGPT) 12 [iU]/L (Normal) Range: 0-40 AST (SGOT) 19 [iU]/L (Normal) Range: 0-40 Alkaline Phosphatase, S 86 [iU]/L (Normal) Range: 25-165 Bilirubin, Direct 0.17 mg/dL (Normal) Range: 0.00-0.40 Bilirubin, Total 0.6 mg/dL (Normal) Range: 0.0-1.2 Albumin, Serum 4.5 g/dL (Normal) Range: 3.6-4.8 Protein, Total, Serum 6.8 g/dL (Normal) Range: 6.0-8.5 :46 LIPID PANEL (70537) Comments: PATIENT WAS FASTINGPERFORMED BY: [facility] Bymsyc1795 [facility] [id number] LDL/HDL Ratio 1.3 {ratio_units} Range: 0.0-3.2 (Normal) [...] Serum 63 U/L (Normal) Comments: PERFORMED BY: Mx OrthopedicsDeborah Heart and Lung CenterGstuiv3735 [facility] [id number] 10:29 Range: 31-124 08-Nnu-258828:29 Celiac Disease Comprehensive Comments: PERFORMED BY: [facility] Xwzlbn3044 [facility] [id number] Immunoglobulin A, Qn, Serum 301 mg/dL (Normal) [...] - 30 Moderate to Strong Positive >30 09-Nwi-813502:29 H pylori, IgM, IgG, IgA Ab Comments: PERFORMED BY: FlirtomaticCritical access hospital [id number] H.pylori, IgM ABS <0.80 {index} (Normal) Range: [...] <0.9 Indeterminate 0.9 - 1.0 Positive >1.0 36-Qra-614684:29 Hepatic Function Panel (7) Comments: PERFORMED BY: Pixeon6370 [facility]Nov[facility] [id number] Alkaline Phosphatase, S 99 [iU]/L (Normal) Range: 25-165 ALT (SGPT) 14 [iU]/L (Normal) Range: 0-40 AST (SGOT) 20 [iU]/L (Normal) Range: 0-40 Albumin, Serum 4.6 g/dL (Normal) Range: 3.6-4.8 Bilirubin, Direct 0.25 mg/dL Range: 0.00-0.40 (Normal) Bilirubin, Total 0.8 mg/dL (Normal) Range: 0.0-1.2 Protein, Total, Serum 7.4 g/dL (Normal) Range: 6.0-8.5 Lipase, Serum 37 U/L (Normal) Comments: PERFORMED BY: [facility] Psgspg9421 [facility] [id number] 0:29 Range: 0-59 05-Qdh-89083:00 DEXA BONE DENSITY STUDY (HP) Radiology Report See Note (Normal) Comments: CLINICAL:Postmenopausal EXAMINATION:DUAL ENERGY X-RAY ABSORPTIOMETRY / DEXA. TECHNIQUE:Bone Density Measurements (BMD) of lumbar spine and bilateral hips wereobtained using a [employer].. COMPARISON:July 24, 2007 FINDINGS: Lumbar Spine (L1-L4): [...] Melendez on 09/12/10351 Sign by: Vipin Melendez 18-Afc-652543:54 PELVIC (NON ) Radiology Report See Note [...] free fluid. Dictated on 09/08/10 1411 by Lauren SrsaTranscribed on 2035 by ITS IMPORTSign by Sonja Sr on 12/31/10 2037 Sign by: Sonja Sr 21-Zym-92634:00 TRANSVAGINAL WITH ARTERIAL CHARLES Radiology Report See [...] SrTranscribed on 1400 by ITS IMPORTSign by Lauren Srsa on 09/13/10 1401 Sign by: Sonja Sr 95-Vyk-749226:03 ABDOMEN/PELVIS WITH CONTRAST Radiology Report See Note [...] on 09/01/10 0720 Sign by: SADE FLOREZ 16-Khb-97596:38 CBCD ABSOLUTE NEUT 3.6 3/uL (Normal) Range: [...] SED RATE 29 mm/h (Normal) Range: 0-30 66-Cvu-81706:29 Urinalysis, Office (97107) UA - BILIRUBIN Small (Normal) UA - BLOOD Negative (Normal) UA - GLUCOSE Negative (Normal) UA - KETONES Small mg/dL (Normal) UA - LEUKOCYTE ESTERASE Small (Normal) UA - NITRITE Negative (Normal) UA - PH 6.0 (Normal) UA - PROTEIN 30 mg/dL (Normal) UA - SPECIFIC GRAVITY 1.020 (Normal) URINE UROBILINGN MARIA T TIMED Normal mg/dL (Normal) 7-Ghx-904711:19 Microscopic Examination Comments: PATIENT WAS FASTINGPERFORMED BY: Raise [employer]70 MoviePassCritical access hospital [id number] Bacteria None seen (Normal) Mucus Threads Present (Normal) Epithelial Cells (non renal) 0-10 {/hpf} (Normal) Range: 0 - 10 RBC 0-3 {/hpf} (Normal) Range: 0 - 3 WBC 0-5 {/hpf} (Normal) Range: 0 - 5 :19 Lipid Panel (43108) Comments: PATIENT WAS FASTINGPERFORMED BY: Pixeon6370 MoviePassCritical access hospital [id number] LDL Cholesterol Calc 139 mg/dL (Abnormal) Range: 0-99 LDL/HDL Ratio 2.3 {ratio_units} (Normal) Range: 0.0-3.2 HDL Cholesterol 60 mg/dL (Normal) Comments: According to ATP-III Guidelines, HDL-C >59 mg/dL is considered anegative risk factor for CHD. VLDL Cholesterol Jennifer 39 mg/dL (Normal) Range: 5-40 Cholesterol, Total 238 mg/dL (Abnormal) Range: 100-199 Triglycerides 197 mg/dL (Abnormal) Range: 0-149 2-Mye-069902:19 URINALYSIS (13358) Comments: PATIENT WAS FASTINGPERFORMED BY: [employer]70 MoviePassCritical access hospital [id number] Bilirubin Negative (Normal) Microscopic Examination See below: (Normal) Nitrite, Urine Negative (Normal) Occult Blood Negative (Normal) Urobilinogen,Semi-Qn 0.2 mg/dL (Normal) Range: 0.0-1.9 Glucose Negative (Normal) Ketones Negative (Normal) Protein Negative (Normal) WBC Esterase 1+ (Abnormal) Appearance Clear (Normal) pH 8.0 (Abnormal) Range: 5.0-7.5 Specific Peyton 1.019 (Normal) Range: 1.005-1.030 Urine-Color Yellow (Normal) 4-Nuu-066687:19 Metabolic Panel, Comprehensive Comments: PATIENT WAS FASTINGPERFORMED BY: LabCoDeborah Heart and Lung CenterAvrsvw2209 [facility] [id number] (41273) ALT (SGPT) 12 [iU]/L (Normal) Range: 0-40 [...] diff Comments: PATIENT WAS FASTINGPERFORMED BY: PATRIA [employer] [facility] [id number] Information: [id number] (88314) Immature Grans (Abs) 0.0 {x10E3/uL} (Normal) Range: [...] 5.1 {x10E3/uL} (Normal) Range: 4.0-10.5 :19 TSH (06469) Comments: PATIENT WAS FASTINGPERFORMED BY: PATRIA Gemini Mobile TechnologiesDublin [place] [id number] TSH 1.020 {uIU/mL} (Normal) Range: 0.450-4.500 6-Jux-080993:30 UNILAT DIAG DIGITAL & CAD Radiology Report See Note (Normal) Comments: Exam Number: [id number] MAMMOGRAPHY - UNILATERAL DIAGNOSTIC: BREAST INDICATION:Six month [...] of attaching a ResultCode to this exam.ADDENDUM: [id number] HPBI/MUDDL Reported By: SADE FLOREZ M.D. 01-Muw-764395:53 Microscopic Examination Comments: PATIENT WAS FASTINGPERFORMED BY: PATRIA LabCoDeborah Heart and Lung CenterQnrlsj0416 [facility] [id number] Bacteria Few (Normal) Mucus Threads Present (Normal) Epithelial Cells (non renal) 0-10 {/hpf} (Normal) Range: 0 - 10 RBC 0-3 {/hpf} (Normal) Range: 0 - 3 WBC 6-10 {/hpf} (Abnormal) Range: 0 - 5 2-Jma-339371:36 BILAT DIAG DIGITAL & CAD Radiology Report See Note (Normal) Comments: Exam Number: [id number] MAMMOGRAM, BILATERAL DIAGNOSTIC DIGITAL AND CAD HISTORYBilateral [...] mammograms werealso examined with computer-aided detection software ([employer], [employer].). Reported By: SADE FLOREZ M.D. 08-Vwc-140763:32 [facility] Radiology Report See Note (Normal) Comments: Exam Number: [id number] MAMMOGRAM, UNILATERAL RIGHT DIAGNOSTIC DIGITAL AND CAD [...] werealso examined with computer-aided detection softw are ([employer] Reported By: SADE FLOREZ M.D. 19-Lct-181837:53 T4, FREE (THYROXINE) (52248) Comments: PATIENT WAS FASTINGPERFORMED BY: LabCo Piftvq2557 [facility] [id number] T4,Free(Direct) 0.93 ng/dL (Normal) Range: 0.82-1.77 73-Oig-368028:53 T3, FREE (TRIDOTHYRONINE) (46314) Comments: PATIENT WAS FASTINGPERFORMED BY: SpeakPhoneBeaumont Hospital6370 [facility] [id number] Triiodothyronine,Free,Serum 2.7 pg/mL (Normal) Range: 2.0-4.4 00-Xxp-018401:53 TSH (70304) Comments: PATIENT WAS FASTINGPERFORMED BY: [facility]6370 [facility] [id number] TSH 0.687 {uIU/mL} (Normal) Range: 0.450-4.500 :53 METABOLIC PANEL, COMPREHENSIVE Comments: PATIENT WAS FASTINGPERFORMED BY: [facility]6370 [facility] [id number] (44296) Alkaline Phosphatase, S 88 [iU]/L (Normal) Range: [...] Glucose, Serum 86 mg/dL (Normal) Range: 65-99 78-Kyd-899041:53 URINALYSIS W/O MICRO (90962) Comments: PATIENT WAS FASTINGPERFORMED BY: [facility] Mtrbnk9047 [facility] [id number] Microscopic Examination See below: (Normal) Nitrite, Urine Negative (Normal) Urobilinogen,Semi-Qn 0.2 mg/dL (Normal) Range: 0.0-1.9 Bilirubin Negative (Normal) Glucose Negative (Normal) Ketones Negative (Normal) Occult Blood Negative (Normal) Protein Trace (Normal) Appearance Clear (Normal) pH 8.0 (Abnormal) Range: 5.0-7.5 Specific Peyton 1.025 (Normal) Range: 1.005-1.030 Urine-Color Yellow (Normal) WBC Esterase Trace (Abnormal) 95-Usq-908701:53 LIPID PANEL (96259) Comments: PATIENT WAS FASTINGPERFORMED BY: Mx OrthopedicsDeborah Heart and Lung CenterAkglge5509 [facility] [id number] LDL/HDL Ratio 1.3 {ratio_units} (Normal) Range: 0.0-3.2 [...] MANUAL DIFF Comments: PATIENT WAS FASTINGPERFORMED BY: [facility]6370 [facility] [id number] Information: [id number] (38523) Immature Grans (Abs) 0.0 {x10E3/uL} (Normal) Range: [...] 3.80-5.10 WBC 4.7 {x10E3/uL} (Normal) Range: 4.0-10.5 4-Rny-857225:07 Hepatic Function Panel (7) Comments: PATIENT WAS FASTINGPERFORMED BY: LabCoDeborah Heart and Lung CenterDeiyvq9318 [facility] [id number] Albumin, Serum 4.2 g/dL (Normal) Range: 3.6-4.8 Alkaline Phosphatase, S 95 [iU]/L (Normal) Range: 25-165 ALT (SGPT) 13 [iU]/L (Normal) Range: 0-40 AST (SGOT) 19 [iU]/L (Normal) Range: 0-40 Bilirubin, Direct 0.12 mg/dL (Normal) Range: 0.00-0.40 Bilirubin, Total 0.4 mg/dL (Normal) Range: 0.1-1.2 Protein, Total, Serum 6.8 g/dL (Normal) Range: 6.0-8.5 6-Klb-640753:07 Lipid Panel With LDL/HDL Comments: PATIENT WAS FASTINGPERFORMED BY: [facility] Qcktsi5069 [place] [id number] Ratio Cholesterol, Total 195 mg/dL (Normal) Range: 100-199 HDL Cholesterol 58 mg/dL (Normal) Comments: According to ATP-III Guidelines, HDL-C >59 mg/dL is considered anegative risk factor for CHD. LDL Cholesterol Calc 98 mg/dL (Normal) Range: 0-99 LDL/HDL Ratio 1.7 {ratio_units} (Normal) Range: 0.0-3.2 Triglycerides 196 mg/dL (Abnormal) Range: 0-149 VLDL Cholesterol Jennifer 39 mg/dL (Normal) Range: 5-40 83-Dcu-353544:26 UNILAT RT DIAG DIGITAL & CAD Radiology Report See Note (Normal) Comments: Exam Number: [id number] MAMMOGRAM, UNILATERAL RIGHT DIAGNOSTIC DIGITAL AND CAD [...] mammograms werealso examined with computer-aided detection software ([employer] Reported By: SADE FLOREZ M.D. 95-Ukb-951458:43 Thin prep Pap Comments: Source.............Cervical;EndocervicalLMP / Prev Treat...ZZI=[id number]. of containers..01 CYTYC Thin Prep VialPATIENT NOT FASTINGClinical Information: ADD [id number] (70122) PERFORMED BY: Lab[address] [place] [id number] . . (Normal) DIAGNOSIS: SPRCS (Normal) Comments: NEGATIVE FOR INTRAEPITHELIAL LESION AND MALIGNANCY.CELLULAR CHANGES ASSOCIATED WITH ATROPHY ARE PRESENT.THIS SPECIMEN WAS RESCREENED PART OF OUR CABLE DISPATCHER PROGRAM.Satisfactory for e valuation. Endocervical and/or squamous metaplasticcells (endocervical component) are present.Aubree Coe, Wastewater Technician (ASCP)Patricia Maria, Supervisory Wastewater Technician (ASCP) Note: PAPSMR (Normal) Comments: The Pap [...] Report See Note (Normal) Comments: Exam Number: [id number] MAMMOGRAM, BILATERAL SCREENING DIGITAL AND CAD HISTORYRoutine [...] mammograms werealso examined with computer-aided detection software ([employer], [employer].). Reported By: SADE FLOREZ M.D. 67-Dbb-921475:03 TSH (17321) Comments: PATIENT WAS FASTINGPERFORMED BY: [facility] Wpqeom9921 [facility] [id number] TSH 1.126 {uIU/mL} (Normal) Range: 0.450-4.500 27-Sgy-696869:03 MICROALBUMIN: CREATININE RATIO Comments: PATIENT WAS FASTINGPERFORMED BY: [facility] Hqnmwn8354 [facility] [id number] (38004) AND (60223) Microalb/Creat Ratio <.7 {ug/mg_creat} (Normal) Range: 0.0-30.0 Creatinine, Urine 151.7 mg/dL (Normal) Range: 15.0-278.0 Microalbum.,U,Random <1.0 ug/mL (Normal) Range: 0.0-17.0 95-Vrw-493744:03 METABOLIC PANEL, COMPREHENSIVE Comments: PATIENT WAS FASTINGPERFORMED BY: [facility] Wwkdca6159 [facility] [id number] (22422) A/G Ratio 1.4 (Normal) Range: 1.1-2.5 Albumin, [...] Serum 90 mg/dL (Normal) Range: 65-99 If -Italian >59 mL/min/1.73 Comments: Note: Persistent reduction for [...] Sodium, Serum 141 mmol/L (Normal) Range: 135-145 36-Xhy-493669:03 LIPID PANEL (76003) Comments: PATIENT WAS FASTINGPERFORMED BY: LabCoDeborah Heart and Lung CenterEokbrk5498 [facility] [id number] Cholesterol, Total 259 mg/dL (Abnormal) Range: 100-199 [...] 202 mg/dL (Abnormal) Range: 0-149 VLDL Cholesterol Jennifre 40 mg/dL (Normal) Range: 5-40 37-Nhx-623403:03 CBC WITH MANUAL DIFF (64711) Comments: PATIENT WAS FASTINGClinical Information: ADD DRAW FEE [id number] ADD J 13431 PERFORMED BY: LabBeaumont Hospital6370 [facility] [id number] Baso (Absolute) 0.0 {x10E3/uL} (Normal) Range: 0.0-0.2 [...] 11.7-15.0 WBC 4.5 {x10E3/uL} (Normal) Range: 4.0-10.5 34-Ozj-859039:49 DEXA BONE DENSITY STUDY () Radiology Report See Note (Normal) Comments: Exam Number: [id number] BONE DENSITOMETRY HISTORYScreening for osteoporosis. TECHNIQUE Bone [...] normal limits. Reported By: SADE FLOREZ M.D. 75-Fyl-714103:37 COMP METABOLIC A/G 1.1 {RATIO} (Normal) Range: [...] Report See Note (Normal) Comments: Exam Number: [id number] AP AND LATERAL RIGHT HIP Being done [...] MANDEL M.D. :58 HIP, MIN 2 VIEWS (MILLWN) Radiology Report See Note (Normal) Comments: Exam Number: [id number] AP AND LATERAL RIGHT HIP Being done [...] 1.49 INDETERMINANT > OR = 1.50 SUGGEST IL :05 CPK TOTAL 58 U/L (Normal) Comments: [...] 1.49 INDETERMINANT > OR = 1.50 SUGGEST IL :40 TROPONIN-I < 0.04 ng/mL (Normal) Comments: Precautions*: NOT APPLICABLE Comments: TROPONIN-I EXPECTED VALUES < 0.50 NEGATIVE 0.50 - 1.49 INDETERMINANT > OR = 1.50 SUGGEST [place] :07 MICHAEL 62 U/L (Normal) Comments: COMMENTS: [...] (Normal) Range: 136-145 :07 CBCD Comments: COMMENTS: utions*: NOT APPLICABLE BASO% 0.2 % (Normal) Range: [...] 11.6-14.6 WBC 6.7 K/mm3 (Normal) Range: 4.4-11.0 LIPASE 277 U/L (Normal) Comments: COMMENTS: Preutions*: [...] 1.49 INDETERMINANT > OR = 1.50 SUGGEST IL :33 COMP METABOLIC A/G 1.1 {RATIO} (Normal) [...] lobectomy and isthumsectomy from 11/06/02 performed at [place], [place],(03-HINES [id number]) with a diagnosis of thyroid lobectomy with multinodular goiter. No evidence of malignancy. CYTOLOGY STUDY B - The specimen consists of benign follicular cells. Malignant cells are not identif ied. GROSS DESCRIPTION A - Received in formalin labeled with patient name and number and designated neck mass are multiple minute fragments of rtoh soft tissue measuring in aggregate 0.2 x [...] Lab Indication: Hypertension Atrial fibrillation : Reviewed Supplier Diversity Director Letter Indication: Atrial fibrillation Atrial fibrillation : [...] behavior of skin WWV . (Renamed from [employer]) : *Well Female Maintenance (KF) Indication: WWV 3. (Renamed from [employer]) WWV . (Renamed from [employer]) : Pap/Pelvic/Bimanual/Rectal/Breast Exam was done. Indication: WWV (Renamed from [employer]) Generalized anxiety disorder : FOLLOW UP IN [...] pain, acute, left upper quadrant : Reviewed Supplier Diversity Director Letter Indication: Abdominal pain, acute, left upper quadrant Abdominal pain, acute, left upper quadrant : Reviewed Lab Indication: Abdominal pain, acute, left upper quadrant Abdominal pain, acute, left upper quadrant : Reviewed Diagnostic Tests Indication: Abdominal pain, acute, left upper quadrant Hypercalcemia : Reviewed Lab Indication: Hypercalcemia Hypercalcemia : Reviewed Diagnostic Tests Indication: Hypercalcemia WWV . (Renamed from [employer]) : Shingles Vaccine Education 2005 Indication: WWV 3. (Renamed from [employer]) WWV . (Renamed from [employer]) : Well Female Maintenance (KF) Indication: WWV V73. (Renamed from [employer]) WWV . (Renamed from [employer]) : Pap/Pelvic/Bimanual/Rectal/Breast Exam was done. Indication: WWV V7. (Renamed from [employer]) Hyperglyceridemia : FOLLOW UP IN 3 MONTHS Indication: Hyperglyceridemia Planned Observations FECAL OCCULT- Tubes sent home ([id number])Indication: Encounter for screening for malignant neoplasm of colon (Renamed from Special screening for malignant neoplasms, colon) On: 16-Iol-129127:31 Request URINE ANTHONY CULTURE-MARIA T COL COUNT ([id number])Indication: Abdominal pain, acute, generalized On: 11-Myn-25281:44 Request Metabolic Panel, Comprehensive ([id number])Indication: Mixed Hyperlipidemia On: :30 Request Comments: recheck in 3 months Lipid Panel ([id number])Indication: Mixed Hyperlipidemia On: :30 Request Comments: recheck in 3 months LIPID PANEL ([id number])Indication: Hyperglyceridemia On: 93-Uho-190736:18 Request HEPATIC FUNCTION PANEL ([id number])Indication: Hyperglyceridemia On: :18 Request Potassium Serum (78153)Indication: Atrial fibrillation On: 01-Fzu-885424:53 Request D-Dimer ([id number])Indication: Atrial fibrillation On: 85-Drd-207997:46 Request Magnesium (40921)Indication: Atrial fibrillation On: 30-Osx-242359:45 Request LIPID PANEL ([id number])Indication: Hyperglyceridemia On: 26-Ern-99816:45 Request HEPATIC FUNCTION PANEL ([id number])Indication: Hyperglyceridemia On: 39-Brh-05675:45 Request TSH ([id number])Indication: Hypothyroidism On: :55 Request URINALYSIS, W/ MICRO ([id number])Indication: Hypertension On: :55 Request METABOLIC PANEL, COMPREHENSIVE ([id number])Indication: Hypertension On: :55 Request LIPID PANEL ([id number])Indication: Hypertension On: :55 Request CBC WITH MANUAL DIFF ([id number])Indication: Hypertension On: :54 Request Celiac Disease Comphrehensive Profile ([id number])Indication: Abdominal pain, acute, left upper quadrant On: :21 Request H. PYLORI ANALYSIS UREASE ACTIVITY ([id number])Indication: Hypercalcemia On: :20 Request LIPASE ([id number])Indication: Abdominal pain, acute, left upper quadrant On: :19 Request AMYLASE ([id number])Indication: Abdominal pain, acute, left upper quadrant On: :18 Request HEPATIC FUNCTION PANEL ([id number])Indication: Abdominal pain, acute, left upper quadrant On: :18 Request Metabolic Panel, Comprehensive ([id number])Indication: Abdominal pain, acute, generalized On: :30 Request Sed Rate Erythrocyte ([id number])Indication: Abdominal pain, acute, generalized On: :30 Request CBC, Platelets & Auto Diff ([id number])Indication: Abdominal pain, acute, generalized On: :30 Request TSH ([id number])Indication: Hypothyroidism On: 91-Szb-380310:10 Request MICROALBUMIN: CREATININE RATIO ([id number]) AND ([id number])Indication: Hypertension On: :10 Request METABOLIC PANEL, COMPREHENSIVE ([id number])Indication: Hypertension On: :10 Request LIPID PANEL ([id number])Indication: Hypertension On: :10 Request CBC WITH MANUAL DIFF ([id number])Indication: Hypertension On: :10 Request HEPATIC FUNCTION PANEL ([id number])Indication: Hyperglyceridemia On: 27-Bcb-079525:39 Request Lipid Panel ([id number])Indication: Hyperglyceridemia On: 75-Kps-243530:39 Request Comments: in six months (approximately) METABOLIC PANEL, BASIC ([id number])Indication: Hypertension On: 83-Qbq-883912:59 Request Comments: 6 weeks TSH ([id number])Indication: Thyroid nodule On: 83-Lnm-543289:56 Request Comments: 6 weeks HEPATIC FUNCTION PANEL ([id number])Indication: Hyperglyceridemia On: 68-Vot-856345:46 Request Comments: 4 months LIPID PANEL ([id number])Indication: Hyperglyceridemia On: 84-Bpf-859794:46 Request Comments: 4 months TSH ([id number])Indication: Thyroid nodule On: :57 Request Comments: in three months HEPATIC FUNCTION PANEL ([id number])Indication: Hyperglyceridemia On: :56 Request Comments: in three months LIPID PANEL ([id number])Indication: Hyperglyceridemia On: :56 Request Comments: in three months MAGNESIUM ([id number])Indication: Hypokalemia On: :51 Request POTASSIUM SERUM ([id number])Indication: Hypokalemia On: :51 Request TSH ([id number])Indication: Thyroid nodule On: :51 Request Comments: now Planned Procedures SCREENING DIGITAL TOMOSYNTHESIS OF On: 25-Jul-2017 Intent BREAST ([id number])By: Lakisha Sherman CNP, CNP, Mary E DEXA SCAN AXIAL SKELETON ([id number])By: On: 25-Jul-2017 Intent Lakisha Sherman CNP, CNP, Mary E EXCISION BGN LSN FC/LID/EAR/NS On: 14-Jun-2016 Intent 0.6-1.0CM ([id number])By: Charlenebernadine LYNDA Lakisha Sherman CNP Lakisha Cartagena MAMMOGRAM, SCREENING, BOTH BREAST On: 13-Jun-2016 Intent ([id number])By: Charlenebernadine HOWELL Lakisha Sherman Comments: After Jul 17 2016 LYNDALakisha DEXA SCAN AXIAL SKELETON ([id number])By: On: 13-Jun-2016 Intent Lakisha Sherman CNP, CNP, Mary E CT - Abdomen & Pelvis (Without On: 11-Dec-2015 Intent Contrast)By: Lakisha Sherman CNP, CNP, Mary E Endoscopy - Small Bowel SeriesBy: On: 23-Nov-2015 Intent Lakisha Sherman CNP, CNP, Mary E COLONOSCOPY, DIAGNOSTIC ([id number])By: On: 26-Oct-2015 Intent Lakisha Sherman CNP, CNP, Mary E BILATERAL MAMMOGRAMS ([id number])By: On: 13-Jul-2015 Intent Shelia Oleary MD BILATERAL MAMMOGRAMS ([id number])By: On: 12-Jun-2014 Intent Shelia Oleary MD Eprescribed prescriptions ([id number])By: On: 07-Jan-2014 Intent Shelia Oleary MD DXA, BONE DENSITY, AXIAL SKELETON On: 24-Jun-2013 Intent ([id number])By: Shelia Oleary MD RPDW-SH-DRHE BEHAVIORAL COUNSELING On: 24-Jun-2013 Intent FOR OBESITY, 15 MINUTES ([id number])By: Shelia Oleary MD FLU VAC, SPLIT, >3 YEARS, INTRAMUSC On: 24-Jun-2013 Intent ([id number])By: MOIRA Crowell Comments: Lot #:[id number] date:02.22Amount given:0.5mlRoute: IMSite given:L DltdGiven by: VIS and ABN signed ADMINISTRATION OF INFLUENZA VIRUS On: 24-Jun-2013 Intent VACCINE ([id number])By: MOIRA Crowell Breast Screening - BilateralBy: On: 13-Jun-2013 Intent Shelia Oleary MD Breast Screening - BilateralBy: On: 13-Jun-2013 Intent Katia Saunders LPN EKG ([id number])By: Shelia Oleary MD On: 26-Oct-2012 Intent Comments: see scanned document of test done to see results reviewed today with patient Eprescribed prescriptions ([id number])By: On: 26-Oct-2012 Intent Elizabet Johnston LPN FLU VAC, SPLIT, >3 YEARS, INTRAMUSC On: 21-Sep-2012 Intent ([id number])By: Jolene Puckett LPN Comments: Lot:[id number]:prefilled syringeSite: L Dltd, IMGiven by: PRINCE Carlos signed ADMINISTRATION OF INFLUENZA VIRUS On: 21-Sep-2012 Intent VACCINE ([id number])By: Jolene Puckett LPN Breast Screening - BilateralBy: On: 04-Jun-2012 Intent Shelia Oleary MD CT - ChestBy: Larissa Griffiths DO On: 07-May-2012 Intent Comments: pe protocol Eprescribed prescriptions ([id number])By: On: 07-May-2012 Intent Larissa Griffiths DO EKG ([id number])By: Larissa Griffiths DO On: 16-Apr-2012 Intent Comments: nsr no acute chg Nuclear Stress Test/Stress On: 16-Apr-2012 Intent SPECT/AdenosineBy: Aye KEBEDE, Comments: pt hip replacement <2 months ago not fit or able to do treadmill at this time Larissa Robter Moniter (95903)- 24 hrBy: On: 16-Apr-2012 Intent Larissa Griffiths DO Echo CompleteBy: Larissa Griffiths DO On: 16-Apr-2012 Intent ADMINISTRATION OF PNEUMOCOCCAL On: 29-Jul-2011 Intent VACCINE ([id number])By: Shelia Oleary MD PNEUM VAC ADLT/IMUMNOSPR, SBC/INTRM On: 29-Jul-2011 Intent ([id number])By: Shelia Oleary MD Ultrasound - RenalBy: Anirudh GILL, On: 30-Jun-2011 Intent Shelia Boggs Breast Screening - BilateralBy: On: 09-Jun-2011 Intent Shelia Oleary MD Endoscopy - Small Bowel SeriesBy: On: 08-Nov-2010 Intent Ciesa DENTAL AIDE, Priscilla Ciesa DENTAL AIDE, Priscilla Endoscopy - Small Bowel SeriesBy: On: 25-Oct-2010 Intent Ciesa DENTAL AIDE, Priscilla Ciesa DENTAL AIDE, Priscilla UGI (With air contrast if On: 25-Oct-2010 Intent necessary)By: Ciesa DENTAL AIDE, Priscilla Ciesa DENTAL AIDE, Priscilla Ultrasound - PelvisBy: Anirudh GILL, On: 06-Sep-2010 Intent Shelia Boggs Comments: transvaginal if need CT - Abdomen & PelvisBy: Anirudh GILL, On: 31-Aug-2010 Intent Shelia Boggs DXA, BONE DENSITY, AXIAL SKELETON On: 27-Aug-2010 Intent ([id number])By: Shelia Oleary MD Breast Diagnostic - LeftBy: Anirudh On: 05-Mar-2010 Intent Shelia GILL Comments: 8- Breast Diagnostic - RightBy: On: 13-Apr-2009 Intent Aubree Alba MAMMOGRAM, SCREENING, BOTH BREASTS On: 24-Oct-2008 Intent ([id number])By: Shelia Oleary MD EKG ([id number])By: Shelia Oleary MD On: 24-Oct-2008 Intent Radiology [...] Mixed Hyperlipidemia : DISCONTINUED - LIPID PANEL ([id number]) Indication: Mixed Hyperlipidemia Mixed Hyperlipidemia : DISCONTINUED - HEPATIC FUNCTION PANEL ([id number]) Indication: Mixed Hyperlipidemia Hypertension : How to [...] Indication: Atrial fibrillation Encounters Office Visit On: 13-Apr-2018 8:08 Encounter Reason: [...] patient does have durable gurjit r of criminal defense attorney and living will. The patient has noticed nothing from the geriatic depression scale. Other providers contributing to the patient's care are weed sprayer (Dr. Lopez ), gastrologist (Dr. Marcelino ) [...] Nutrition: balanced diet and supplemental vitamins. The wv dical issues the patient is following up [...]
--- OUTSIDE RECORDS SUMMARY | 2018-12-01 05:16 | XMS RPT_ITS ---
:1945 Author Organization OHIP Care Team Providers Name Role Phone Lakisha Sherman Attending Unavailable Lakisha Sherman Referring Unavailable Lakisha Sherman Consulting Unavailable Lakisha Sherman Attending Unavailable Lakisha Sherman Primary Care Unavailable Kp Lopez Attending Unavailable Lakisha Sherman Referring Unavailable PROBLEMS PROBLEMS DATE TYPE CONDITION / CODE ATTENDING STATUS SOURCE 10/04/2018 Unknown I48.0 - Paroxysmal Jessica, [place] Active [place] atrial fibrillation Community / I48.0(ICD-10) Hospital Repository 10/04/2018 Unknown E78.2 - Mixed Jessica, Kp Active [place] hyperlipidemia / Community E78.2(ICD-10) Hospital Repository 09/26/2018 Unknown Z12.31 - Encounter Lakisha Sherman for screening [facility] mammogram for [facility] malignant neoplasm Repository of breast / Z12.31(ICD-10) PROCEDURES PROCEDURES No Procedure Records FoundRESULTS RESULTS CARDIOLOGY VISIT Observed: 10/04/2018 Status: F Source: [place] REPORT 9:25 AM [facility] HOSPITAL REPOSITORY [facility] [address] [place] [address] OFFICE VISIT Date of Service: 10/04/18 MR#: [id number] Acct: [id number] Name: IVETH SHEETS Rep #: [id number] : 1945 Provider: Kp Lopez MD Age/Sex: 72/F Location: [facility] [place] [place] Status: Signed [facility] HPI Chief Complaint: Follow up Details: IVETH SHEETS, is a 72 F who presents to the office today for a follow-up visit. She is a lady with a history of palpitations paroxysmal atrial fibrillation who has had atypical chest pain in the past she had been complaining of some shooting discomfort. She did undergo a cardiac catheterization 2 years ago which demonstrated essentially normal coronary arteries. She is done well since then denying any chest pain suggestive of angina and no paroxysmal atrial fibrillation. Her physical exam here today demonstrates clear lung reddy regular rate and rhythm and no pedal edema her blood pressure is under excellent control. Intake Vital Signs10/04/18 Height 5 ft 5 in 10/04/18 Weight: 214 lb 10/04/18 Body Mass Index (BMI) 35.6 10/04/18 Blood Pressure 122/80 H 10/04/18 Blood Pressure Location Lt brachial Intake Visit Reasons: 1 Y FU Senior Quality Methods Specialist Required: No Accompanied by: none Is patient in pain?: No Allergies atorvastatin [From Lipitor] Allergy (Verified 10/04/18 08:43) Unknown ezetimibe [From Zetia] Allergy (Verified 10/04/18 08:43) Unknown Penicillins Allergy (Verified 10/04/18 08:43) Unknown pravastatin [From Pravachol] Allergy (Verified 10/04/18 08:43) Unknown simvastatin [From Zocor] Allergy (Verified 10/04/18 08:43) Unknown Medications Aspirin 325 mg PO DAILY@0800 10/05/16 [History Confirmed 10/04/18] Calcium Citrate/Vitamin D3 [Calcium Citrate - Vit D Tablet] 1 ea PO DAILY 10/05/16 [History Confirmed 10/04/18] Multivit-Min/FA/Lycopen/Lutein [Centrum Silver Tablet] 1 ea PO DAILY 10/05/16 [History Confirmed 10/04/18] Pitavastatin Calcium [Livalo] 1 mg PO DAILY 10/05/16 [History Confirmed 09/26/17] cranberry extract 500 mg tablet 500 mg PO QDAY tab 09/28/17 [History Confirmed 10/04/18] metoprolol succinate ER 50 mg tablet,extended release 24 hr 50 mg PO DAILY #90 tab 10/13/17 [Rx Confirmed 10/04/18] [facility] Medical History Hyperlipidemia (Chronic) Palpitations (Chronic) Paroxysmal atrial fibrillation (Chronic) Surgical History H/O partial thyroidectomy (Chronic) H/O bilateral hip replacements (Resolved) History of left heart catheterization (Resolved) Family History Father aortic aneurysm Sister Seizures Brother coronary stent Mother Myocardial infarction Social History Smoking Status: Former smoker alcohol intake: current alcohol intake frequency: a few times a month Alcohol type: wine substance use type: does not use caffeine: Yes Type: carbonated beverages what type of physical activity do you participate in: walking frequency: 1-2 times per week duration: 15-30 minutes/day seatbelt use: always do you feel safe at home: Yes ROS Const Const: Negative for fatigue, weakness, night sweats, excessive sweating, frequent falls, headache(s) or daytime sleepiness Eyes Eyes: Negative for loss of peripheral vision, transient loss of vision, blind spots, double vision or blurry vision ENT ENT: Negative for headache(s), dizziness, balance problems, Nosebleed/epistaxis, tongue swelling or lip swelling Cardio Chest Pain: No Palpitations: No Edema: None Muscle aches with walking: None Resp Respiratory: Negative for SOB at rest, SOB orthopnea\SOB lying down, Cough, paroxysmal nocturnal dyspnea or SOB with activity GI GI: Negative nausea, vomiting, heartburn, black,tarry stools or bright, red blood in stools : Negative for hematuria Musc Musc: Negative for balance problems, muscle aches/ myalgia, muscle weakness or joint pain Skin Skin: Negative non-healing lesions, unusual bruising or rash Neuro Neuro: Negative for weakness, frequent falls, headache(s), double vision, dizziness, lightheadedness, orthostatic symptoms, blurry vision or lack of coordination Marquise Hematologic/Lymphatic: Negative for easy bruising or easy bleeding Endo Endo: Negative for fatigue, excessive sweating, cold intolerance, heat intolerance, increased thirst/drinking or hair loss Psych Psych: Negative for anxiety or depression Allergy Allergy/Immunology: Negative for throat swelling, Negative for tongue swelling, Negative for hives, Negative for rash, Negative for lip swelling Cardiology Exam Const Appearance: cooperative, healthy appearing, well developed, well groomed and no acute distress Nutritional Appearance: well nourished and average body habitus Orientation: alert, awake and oriented x3 Head Head: normal to inspection, normocephalic and atraumatic Ears: hearing grossly normal bilaterally and external ears normal Nose: external nose normal, nasal mucous membranes and turbinates normal, nares normal, septum normal, no nasal discharge Face and Sinus: face symmetric Mouth: oral mucosae normal, tongue normal, oropharynx normal and moist mucous membranes Teeth and gingiva: dentition normal Throat: posterior oropharynx normal, tonsils normal and uvula midline Eyes General: appearance normal, both eyes and all related structures Eyelids: eyelids normal Conjunctivae: conjunctivae normal Pupils: PERRL, normal by confrontation and accommodation normal EOM: EOM intact bilaterally Neck Neck: normal visual inspection, trachea midline and no JVD JVD: +5 Carotids: normal carotid upstroke and bounding pulses Chest Chest inspection: normal inspection of the chest, symmetric chest movement and normal respiratory effort Auscultation: Bilateral: Clear to Auscultation Cardio Palpation: normal PMI Rate: regular rate Rhythm: regular rhythm Heart sounds: S1 normal, S2 normal and normal, physiologic split S2; negative rub, gallop or murmur GI GI: normal to inspection, soft, no hepatosplenomegaly and bowel sounds present Neuro General: alert, awake, oriented x3, no focal sensory deficit, gait normal and moves all extremities Skin Skin: no rashes or lesions noted Extremities Pulses: Normal: Right Femoral Pulse, Left Femoral Pulse, Right Dorsalis Pedis Pulse, Left Dorsalis Pedis Pulse, Right Posterior Tibial Pulse, Left Posterior Tibial Pulse, Right Radial Pulse, Left Radial Pulse Lower Extremity Edema: None: Bilateral Musculoskel Musculoskeletal: No joint tenderness Psych Psychological: normal affect Assessment AND Plan 1. Paroxysmal atrial fibrillation I48.0 Plan She does have a history of paroxysmal atrial fibrillation. She is not had any recurrences recently my recommendation is for her to continue the same medications without as making any changes. 2. Mixed hyperlipidemia E78.2 Plan She does have a history of hyperlipidemia and tells me that she saw you for a routine physical. Lipids profiles were obtained and are to have her continue to follow with you. At this juncture I would not suggest any other changes. Thank you for allowing me to participate in the care of your patient. 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) Coding Level of Care Code Off vis,est,level 3 Diagnoses Paroxysmal atrial fibrillation I48.0 Mixed hyperlipidemia E78.2 Hyperlipidemia type: mixed hyperlipidemia Coding Level of Care Code Off vis,est,level 3 Diagnoses Paroxysmal atrial fibrillation I48.0 Mixed hyperlipidemia E78.2 Hyperlipidemia type: mixed hyperlipidemia Supplemental Info Supplemental Information Labs LDL Cholesterol 80 mg/dL (0-130) 09/29/16 HDL Cholesterol 73 mg/dL (40-) 09/29/16 Triglycerides 171 mg/dL (-199) 09/29/16 VLDL Cholesterol 34 mg/dL (5-40) 09/29/16 Diagnostics Stress Test Nuclear Medicine 10/03/16 Cardiac Catheterization 10/06/16 Chest X-Ray 10/04/16 10/04/18 0925 <Electronically signed by Kp Lopez MD> Date Kp Lopez MD Cosigner Signature: Date (if applicable) CC: Lakisha Sherman NP SCREENING MAMM (CAD), Observed: 09/26/2018 Status: F Source: [facility] 10:30 AM [facility] REPOSITORY [facility] [address] [place] [id number] SCREENING MAMM (CAD), BILAT MR#: [id number] Acct: [id number] Name: IVETH SHEETS Rep #: [id number] : 1945 F 72 From: Wayne Rabago MD PCP: Lakisha Sherman NP Status: REG CL Study: SCREENING MAMM (CAD), BILAT Date of Exam: 09/26/18 Exam# [id number] Ordering Dr: Lakisha Sherman PANEL MONITOR-C MAMMOGRAPHY - BILATERAL SCREENING REASON FOR EXAM: Female, 72 years old. Routine annual screening examination. PERTINENT HISTORY: Grandmother with breast cancer. Remote bilateral breast reduction surgery. TECHNIQUE: Digital bilateral breast nelson (3D mammographic acquisition) in the CC and MLO projections. 2-D mediolateral oblique (MLO) and craniocaudad (CC) views of both breasts were obtained. CAD: Full Field Digital Mammography with Computer Added Detection was performed. COMPARISON: Comparison is made with prior study dated September 07, 2017 and September 06, 2016. FINDINGS: Breast Composition: The breasts are almost entirely fatty. There are no dominant masses or suspicious calcifications. Stable benign-appearing bilateral axillary lymph nodes. Stable 6.6 mm calcified nodule in the retroareolar region of the left breast. No other significant abnormalities are identified. There has been no significant change since the prior study. BI/SCREENING MAMM (CAD), BILAT IMPRESSION: Stable bilateral screening mammogram. Yearly follow-up mammogram recommended. (A) ASSESSMENT CATEGORY: BIRADS Category 2: Benign. A letter regarding these results will be sent to the patient by the facility within 30 days. Approximately 10% of breast cancers are not detected by mammography. A normal mammogram should not delay biopsy of a clinically suspicious abnormality. [id number] Electronically Signed: Wayne Rabago MD at 11:40 EST Tel [phone], Service support , CC: Lakisha Sherman NP General Internist And Physician Leader: Signed ALLERGIES ALLERGIES DATE TYPE / CODE NAME / CODE REACTION SEVERITY SOURCE 10/04/2018 Drug Penicillins/ Unknown Unknown [facility] Allergy/4160 [id number]([place] [address](SNOMED XNORM) Repository CT) 10/04/2018 Drug pravastatin/ Unknown Unknown [facility] Allergy/4160 [id number]([place] [address](SNOMED XNORM) Repository CT) 10/04/2018 Drug simvastatin/ Unknown Unknown [facility] Allergy/4160 [id number]([place] [address](SNOMED XNORM) Repository CT) 10/04/2018 Drug atorvastatin Unknown Unknown [place] [facility] Allergy/4160 /[id number]( Hospital [address](SNOMED RXNORM) Repository CT) 10/04/2018 Drug ezetimibe/F0 Unknown Unknown [facility] Allergy/4160 [id number]([facility] [address](SNOMED ORM) Repository CT) ENCOUNTERS ENCOUNTERS ADMIT/DISCHARGE ACCOUNT ADMITTING ENCOUNTER LOCATION SOURCE NUMBER CLASS 10/04/2018/ [id number] Ambulatory BMSBuilding:B [place] 9 6 MS.[facility] Repository 09/26/2018 [id number] Ambulatory Carm[place] [facility] 8 [facility] ing:[facility] Repository 07/25/2018 [id number] Ambulatory Building:[facility] [place] Practices Repository PAYERS PAYERS ENCOUNTER GUARANTOR PAYER SUBSCRIBER SOURCE 10/04/2018 IVETH DURAN Insurance:AETNA LOWEDOB: [facility] Number: [id number] Hospital 280[address]Dqy: 330 [id number] Repository [phone] () Date:[id number] [id number] [place] [id number]: 10/04/2018 Secondary NOT GIVENUNK [place] Insurance:SELF PAY [facility] Number: Effective Repository Date:2018-10-04 09/26/2018 IVETH BETHEA7 Octavio DURAN Insurance:AETNA LOWEDOB: [facility] Number: [id number] Hospital [id number]: (330 [id number] Repository [phone] () Date:[id number] [address] [address]YO: 09/26/2018 Secondary NOT GIVENUNK [place] Insurance:SELF PAY [facility] Number: Effective Repository Date:2018-08-06 07/25/2018 Iveth Betancourt [facility] LoweDOB: Insurance:Aetna Life LoweDOB: Repository [facility]/MedicarePolicy [id number] [place] Number: Prem Hi [facility] [id number] [place] [address]Val: (622) Date:[id number] [id number]: Name:[facility] [phone] (HP) (HP)Tel: [phone] CarlNAHEED [phone] (WP) [id number]: 07/25/2018 Secondary Iveth DONAHUE Practices Insurance:[facility] Repository icy Number: [id number] [facility] Date:1998-03-11 - [place] [id number]: (030) Name:[facility] Aud[place] [phone] (HP) [address] [place] [phone]:
== END ==
PROVIDERS: Family Provider Nurse Practitioner; PCP Nurse Practitioner; Visit Provider Nurse Practitioner
DX: Z12.31 Encounter for screening mammogram for malignant neoplasm of breast (principal); Z80.3 Family history of malignant neoplasm of breast
CPT/HCPCS: 77063; 77067

== ENCOUNTER → 2019-09-27 10:47 | Outpatient (CLI) | payer MEDICARE, SELFPAY ==
[2019-05-13 09:36] VITALS: BMI 36.1
--- NOTE | 2019-09-27 10:54 | BI_ITS ---
MAMMOGRAPHY - BILATERAL SCREENING REASON FOR EXAM: Female, 73 years old. Routine annual screening examination. PERTINENT HISTORY: Grandmother with breast cancer. TECHNIQUE: Digital bilateral breast tylor (3D mammographic acquisition) in the CC and MLO projections. 2-D mediolateral oblique (MLO) and craniocaudad (CC) views of both breasts were obtained. CAD: Full Field Digital Mammography with Computer Added Detection was performed. COMPARISON: Comparison is made with prior examination dated September 26, 2018 and September 07, 2017. FINDINGS: Breast Composition: The breasts are almost entirely fatty. There are no dominant masses or suspicious calcifications. Stable densely calcified bilateral breast nodules suggestive of calcified fibroadenomas. No other significant abnormalities are identified. There has been no significant change since the prior study. BI/SCREEN MAMM (CAD) W/TYLOR BILAT IMPRESSION: Stable bilateral screening mammogram. Yearly follow-up mammogram recommended. (A) ASSESSMENT CATEGORY: BIRADS Category 2: Benign. A letter regarding these results will be sent to the patient by the facility within 30 days. Approximately 10% of breast cancers are not detected by mammography. A normal mammogram should not delay biopsy of a clinically suspicious abnormality. [id number] Electronically Signed: Wayne Rabago, at 12:42 EST , Service support ,
== END ==
PROVIDERS: Family Provider Nurse Practitioner; PCP Nurse Practitioner; Referring Provider Nurse Practitioner; Visit Provider Nurse Practitioner
DX: Z12.31 Encounter for screening mammogram for malignant neoplasm of breast (principal)
CPT/HCPCS: 77063; 77067

== ENCOUNTER → 2020-09-28 10:26 | Outpatient (CLI) | payer MEDICARE, SELFPAY ==
[2019-05-13 09:36] VITALS: BMI 36.1
--- NOTE | 2020-09-28 10:28 | BI_ITS ---
MAMMOGRAPHY - BILATERAL SCREENING REASON FOR EXAM: Female, 74 years old. Routine annual screening examination. PERTINENT HISTORY: Grandmother with breast cancer. History of prior bilateral breast reduction surgery. TECHNIQUE: Digital bilateral breast tylor (3D mammographic acquisition) in the CC and MLO projections. 2-D mediolateral oblique (MLO) and craniocaudad (CC) views of both breasts were obtained. CAD: Full Field Digital Mammography with Computer Added Detection was performed. COMPARISON: Comparison is made with prior study dated 03/27/2020 and 09/26/2018. FINDINGS: Breast Composition: The breasts are almost entirely fatty. There are no dominant masses or suspicious calcifications. Stable small bilateral calcified breast nodules. No other significant abnormalities are identified. There has been no significant change since the prior study. BI/SCRN MAMM (CAD)W/TYLOR BILAT IMPRESSION: Stable bilateral screening mammogram. Yearly follow-up mammogram recommended. (A) ASSESSMENT CATEGORY: BIRADS Category 2: Benign. A letter regarding these results will be sent to the patient by the facility within 30 days. Approximately 10% of breast cancers are not detected by mammography. A normal mammogram should not delay biopsy of a clinically suspicious abnormality. [id number] Electronically Signed: Wayne Rabago MD at 12:24 EST , Service support ,
== END ==
PROVIDERS: PCP Nurse Practitioner; Referring Provider Nurse Practitioner; Visit Provider Nurse Practitioner
DX: Z12.31 Encounter for screening mammogram for malignant neoplasm of breast (principal)
CPT/HCPCS: 77063; 77067

== ENCOUNTER → 2021-03-02 10:32 | Outpatient (CLI) | payer MEDICARE, SELFPAY ==
[2019-05-13 09:36] VITALS: BMI 36.1
--- NOTE | 2021-03-02 10:35 | VDLE_ITS ---
Reason For Study: RLE PAIN RIGHT GSV is normal. CFV is compressible, spontaneous, phasic, competent and demonstrates normal augmentation. FV is compressible, spontaneous, phasic, competent and demonstrates normal augmentation. POP V is compressible, spontaneous, phasic, competent and demonstrates normal augmentation. T/P Trunk is compressible. PTV is compressible. RT PerV is compressible. Procedure This is a venous duplex using B-mode, color flow and spectral Doppler. Exam performed in department. The exam was diagnostic. A preliminary report was called and/or faxed to Lakisha Sherman @ 11:10 am @ [phone]. VL/Venous Duplex US, Unilateral Interpretation Summary Deep veins of the right lower extremity are patent and compressible segmentally . There is no evidence of right lower extremity deep vein thrombosis. Valvular competence ben ears intact within the proximal deep venous system on the right . The right great saphenous vein a ppears patent and compressible segmentally. Ordering Physician: Lakisha Sherman Referring Physician: Lakisha Sherman Performed By: Haley George, TASIA, RVT
== END ==
PROVIDERS: PCP Nurse Practitioner; Referring Provider Nurse Practitioner; Visit Provider Nurse Practitioner
DX: M79.604 Pain in right leg (principal)
CPT/HCPCS: 93971

== ENCOUNTER → 2021-06-01 15:08 | Outpatient (CLI) | payer MEDICARE, SELFPAY ==
--- NOTE | 2021-06-01 15:10 | US_ITS ---
STUDY: ULTRASOUND TRANSVAGINAL CLINICAL: Female, 75 years old. Abnormal bleeding TECHNIQUE: Transvaginal COMPARISON: None. FINDINGS: Normal uterine size measuring 7.6 cm in maximal craniocaudal dimension. There are no myometrial masses. Normal endometrial thickness measuring 22 mm. The endometrium is predominantly hyperechoic but shows some heterogeneity. There is a 1.4 cm endometrial cyst. Normal uterine cervix. Right ovary not visualized. Normal left ovary, measuring 1.5 x 1.2 x 1.0 cm. There are multiple follicles without a dominant cyst. There is no free fluid in the pelvis. US/Transvaginal Non- IMPRESSION: Abnormal endometrial thickening at 2.2 cm. Further evaluation with biopsy recommended to exclude endometrial carcinoma. Particularly since patient is having abnormal bleeding No suspicious adnexal mass or free fluid Electronically Signed: Lorenzo Nielson MD at 16:25 EDT , Service support ,
== END ==
PROVIDERS: PCP Nurse Practitioner; Referring Provider Nurse Practitioner; Visit Provider Nurse Practitioner
DX: N93.9 Abnormal uterine and vaginal bleeding, unspecified (principal); R93.89 Abnormal findings on diagnostic imaging of other specified body structures
CPT/HCPCS: 76830

== ENCOUNTER 2021-07-01 10:55 | Day surgery (SDC) | payer MEDICARE, SELFPAY ==
[2021-06-25 11:50] LABS: Hematocrit 44.6 % (37-47); Hemoglobin 14.7 g/dL (12.0-15.0); Mean Corpuscular Hgb 31.1 pg (27.0-32.0); Mean Corpuscular Volume 94.5 fL (81-99); Mean Platelet Vol. 10.9 fl (6.2-12.0); Platelet Count 221 K/mm3 (150-450); RBC Distribution Width CV 13.2 % (11.6-14.6); RBC Distribution Width SD 46.3 fl (35.1-43.9); Red Blood Count 4.72 M/mm3 (4.2-5.4); White Blood Count 5.6 K/mm3 (4.4-11.0)
[2021-07-01] MEDS: Lactated Ringers 1,000 ML 100 ML IV (11:50)
[2021-07-01 12:10] VITALS: BP 144/82; PULSE 74; RESP 16; TEMP 36.7; O2SAT 96; BMI 38.1
--- NOTE | 2021-07-01 12:13 | PCM.HP.BLA ---
History and Physical Date of Admission: 07/01/21 Surgical History and Physical Date: 07/01/2021 Name: IVETH SHEETS Age: 75 Date of : 1945 Iveth Sheets, a 75 year old female 0 0 0 0 0, presents for Hysteroscopy, D, polypectomy on July 01, 2021 at 12:30. -- GynProblem-New Pt -- Iveth is a referral for post-menopausal bleeding. Iveth presents here today for Hysteroscopy, D and C , Symphion Polypectomy with JM at [facility] on 07-01-21. denies new quality review specialist concerns at this time. Questions answered and consents signed. MEDICATIONS HISTORY: Patient is also takin. aspirin 325 mg tablet, One pill by mouth once a day 2. Calcium 600 + D(3) 600 mg (1,500 mg)-200 unit tablet, One pill by mouth once a day 3. Livalo 1 mg tablet, One pill by mouth once a day 4. Multivitamin 50 Plus tablet, One pill by mouth once a day 5. Supplement (s) [No Strength], Probiotic 1 po daily 6. Toprol XL 50 mg tablet,extended release, One pill by mouth once a day ALLERGIES: Penicillins, Swelling (localized) Infections - IBS constipation Illnesses - IBS, Atrial Fib and HTN Accidents - None Hospitalizations - see surgery Review of Systems: GENERAL - Denies fever, or chills SKIN - Denies skin changes EYES - Denies visual changes EARS - Denies difficulty hearing NOSE - Denies nasal congestion or bleeding MOUTH - Denies sore throat or difficulty swallowing NECK - Denies pain or swelling RESPIRATORY - Denies shortness of breath or wheezing CARDIOVASCULAR - Denies palpitations or chest pain GASTROINTESTINAL - Denies nausea, vomiting, diarrhea, constipation GENITOURINARY - Denies dysuria, frequency of urination, incontinence of urine MUSCULOSKELETAL - Denies joint or muscle pain NEUROLOGICAL - Denies localized numbness or weakness PSYCHIATRIC - Denies depression or anxiety ENDOCRINE - Denies heat or cold intolerance, weight loss or gain HEMATO-IMMUNOLOGIC - Denies excessive bleeding with cuts SOCIAL HISTORY: Alcohol Use - socially Smoking - used to smoke but quit Diet - moderate, balanced diet Lifestyle - moderate stress lifestyle and single Exercise - walking Seat Belt Use - always 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 cholecystectomy ; - 2. left side of thyroid removed ; - 3. 09/11/2011 left hip ; - 4. 09/11/2016 left cataract ; - 5. broken ankle ; - 6. 03/11/2013 right hip ; - 7. 09/11/2007 Breast reduction ; - PHYSICAL EXAM BP- 106/70 Sitting, Right arm, large cuff Weight- 221.72923 lbs Height- 64.5 inch BMI:[id number] CONSTITUTIONAL - NAD, well nourished, and well developed SKIN - No rash, lesions, or ulcers HEENT - Normocephalic, PERRLA, EOMI NECK - No nodes, no nuchal rigidity and thyroid normal size and texture ABDOMEN - Without hepatosplenomegaly, distention, masses, rebound, or guarding; normal bowel sounds; no hernias EXTREMITIES - No edema or calf tenderness NEUROLOGICAL - Cranial nerves II-XII grossly intact PSYCHIATRIC - A and O to time, place, person, mood and affect External Genital Vagina - non-tender without lesions Urethra/Urethral Meatus - non-tender Bladder - non-tender Vagina - vaginal escobedo are pink and moist without loss of rugae and no evidence of atrophy Cervix - without cervical motion tenderness and has normal size and features without evident lesions and 2cm polyp noted at cervical os ASSESSMENT/PLAN: 1. Postmenopausal Bleeding Patient arrives as referral from [facility] with postmenopausal bleeding and thickened endometrial lining. Ultrasound by [facility] shows 22 mm endometrial stripe with a 1.4 cm endometrial cyst, uterus 7.6 cm Educated patient on postmenopausal bleeding and ultrasound. Based on exam 2 cm cervical versus uterine polyp noted 2. Encounter For Other Preprocedural Examination Patient scheduled for hysteroscopy, dilation curettage, polypectomy Risk benefits alternatives of the procedure discussed. All questions answered and consent signed. Educated patient on pain control, bleeding. Discussed activity after surgery
--- NOTE | 2021-07-01 12:30 | EMB_PTH ---
PATIENT: KAMRYN SHEETS [place] [facility] [place][id number] AGE/SX: 75/F ROOM: RE07/01/[address]: Dr. Star Pandey MD : 1945 BED: DIS: 07/01/2021 SPEC #: [id number] RECD: 07/01/21 14:07 STATUS: MUNIR ANNA #: [id number] ROBERTO CARLOS: 07/01/21 12:[address]: Star Pandey DEPT: SURGICAL PATHOLOGY RECD BY: Celsa Vinson ENTERED: 07/02/21 08:58 SP TYPE: ENDOM BX/C YADI DR: Lakisha Sherman, REBA Tissues: Endometrium, NOS Procedures: Surgery Specimen Level IV HEADER OPERATION: Hysteroscopy, D & C Symphion, polypectomy PRE-OP DIAGNOSIS: Postmenopausal bleeding TISSUE SUBMITTED: Endometrial polyp and endometrial curettings MICROSCOPIC DIAGNOSIS Endometrial polyp and endometrial curettings: Endometrial polyp with simple cystic hyperplasia without atypia. Additional smaller fragments of endometrial tissue with simple cystic hyperplasia without atypia. See comment. JAZMINE:tanna 07/05/2021 COMMENT Most of the smaller fragments also appear to consist of fragments of endometrial polyp. MICROSCOPIC DESCRIPTION Slides are reviewed. GROSS DESCRIPTION Received in fixative is one container labeled with the patient's name and designated endometrial polyp and endometrial curettings. The specimen consists of a large pink, focally congested polyp measuring 6 x 2 x 1.5 cm. Sections of the tip of the polyp reveal congested and hemorrhagic cut surfaces. Also present in the container are multiple fragments of hurley soft tissue measuring in aggregate 7.5 x 3 x 0.6 cm. The entire specimen is submitted in ten cassettes as follows: 1-5 ? polyp (cassette 5 contains the basal portion of the polyp), 6-10 ? smaller fragments. / JAZMINE:tanna 07/02/21 TC: 5 CPT: 91860
--- NOTE | 2021-07-01 13:17 | DCINST_ITS ---
Discharge Instructions Diet Discharge Diet: No restrictions Activity Discharge Activity: Return to Normal Activity and May Drive May resume sexual activity in: 4-6 weeks Weight Bearing Status: Weight bearing as tolerated Dressing / Incision Call your doctor if your incision/area has: Continuous Slow Oozing and Foul Smelling Discharge Call your doctor if you observe: Fever of 101 or Higher, Shortness of breath and Chest pain Follow Up Care Please Follow Up With: Star Pandey MD When: 2 week postoperatively Test Results: Test results from this visit will be discussed in further detail at your follow-up appointment, if applicable. Discharge Plan Admission Attending Provider: Star Pandey Primary Care Provider: Lakisha Sherman [employer] Discharge Orders/Prescriptions Prescriptions: No Action cranberry extract 500 mg tablet 500 mg PO QDAY RF: 0 Livalo 1 mg tablet 1 mg PO DAILY RF: 0 Adult 50 Plus Probiotic 4 billion cell capsule 4,000 mmu cells PO DAILY RF: 0 aspirin 325 MG tablet 325 mg PO DAILY@0800 RF: 0 calcium citrate-vitamin D3 1 EACH tablet 1 ea PO DAILY RF: 0 kvmwdqnc-zex-OR-lycopen-lutein 1 EACH tablet 1 ea PO DAILY RF: 0 metoprolol succinate 50 MG tablet 50 mg PO DAILY Qty: 90 RF: 3
[2021-07-01 13:24] VITALS: BP 140/73; BP 144/82; PULSE 84; RESP 16; TEMP 36.2; O2SAT 96
--- NOTE | 2021-07-01 13:25 | PCM.OPRPT ---
Report of Operation Date of Procedure: 07/01/21 Pre-Operative Diagnosis: Postmenopausal bleeding, cervical polyp Post-Operative Diagnosis: Postmenopausal bleeding, uterine polyp Surgery/Procedure Performed:: Hysteroscopy, dilation curettage, polypectomy via Symphion Description of Surgical Findings:: Surgeon: Star Pandey MD Anesthesia: MAC EBL: 20 cc Urine output: 75 cc IV fluids: 700 cc Hysteroscopy fluid deficit: 1200 cc Complications: None Specimen: Endometrial curettings, uterine polyp Findings: 2 cm polyp noted at cervical os. Hysteroscope revealed polyp with base stalk at fundus. Polyp was resected at stalk and removed intact. No other pathology was noted Consent: Patient with postmenopausal bleeding and found to have cervical possible uterine polyp in need of hysteroscopy, dilation and curettage, polypectomy. Patient understood the risk of the procedure includes but is not limited to visceral or vascular injury, prolonged hospitalization, blood loss and need for transfusion, reoperation. Patient state understanding and wished to proceed. All questions were answered and consent was signed. Procedure: Patient was brought back to the OR where MAC anesthesia was found to be adequate. Patient was prepared and draped in a dorsal lithotomy position with yellowfin stirrups. A weighted speculum was placed in the posterior aspect of the vagina. Above findings were noted. Cervical dilators were used to dilate the cervix. Hysteroscope was inserted and above findings were noted. Using Symphion on resectoscope transection of the uterine polyp at its stalk was performed. Polyp was removed intact and sent to pathology. Endometrial curettings were performed with Symphion on resectoscope, and sent to pathology. Good hemostasis was noted. No other pathology was found. Hysteroscope was removed. Good hemostasis was noted. All counts were correct x2. Patient tolerated the procedure well and was brought to recovery in a stable condition.
[2021-07-01 13:29] VITALS: BP 130/69; BP 144/82; PULSE 74; RESP 16; O2SAT 96
[2021-07-01 13:34] VITALS: BP 134/69; BP 144/82; PULSE 73; RESP 16; O2SAT 98
[2021-07-01 13:39] VITALS: BP 130/77; BP 144/82; PULSE 72; RESP 16; O2SAT 96
[2021-07-01 14:15] VITALS: BP 144/82; BP 150/63; PULSE 71; RESP 16; TEMP 35.9; O2SAT 95
== END 2021-07-01 14:28 | disposition home or self-care (01) ==
LOC: SDC 10:55 → AC 10:55
PROVIDERS: PCP Nurse Practitioner; Referring Provider Obstetrics & Gynecology; Visit Provider Obstetrics & Gynecology
PROC: 0UB98ZZ Excision of Uterus, Via Natural or Artificial Opening Endoscopic (ICD-10-PCS; CPT 58558; principal; 2021-07-01 12:15)
DX: N95.0 Postmenopausal bleeding (principal); N85.01 Benign endometrial hyperplasia; I10 Essential (primary) hypertension; I48.0 Paroxysmal atrial fibrillation; E78.00 Pure hypercholesterolemia, unspecified; M19.90 Unspecified osteoarthritis, unspecified site; Z79.82 Long term (current) use of aspirin; Z79.899 Other long term (current) drug therapy; Z87.891 Personal history of nicotine dependence
CPT/HCPCS: 00952; 58558; 36415; 85027; 86850; 86900; 86901; 88305; J7120; J2405

== ENCOUNTER 2021-09-21 09:46 | Outpatient (CLI) | payer MEDICARE, SELFPAY ==
--- NOTE | 2021-09-21 10:03 | RAD_ITS ---
STUDY: X-RAY CHEST REASON FOR EXAM: Female, 75 years old. [place]. TECHNIQUE: PA and lateral views of the chest. 10/04/2016 COMPARISON: None. FINDINGS: The lungs are clear and expanded. There is no demonstrated pleural abnormality. Normal size heart. Normal mediastinum and jessica. Normal visualized pulmonary arteries. Normal visualized aortic arch and descending thoracic aorta. No osseous changes. There is no demonstrated abnormality of the visualized soft tissue structures of the upper abdomen. RAD/Chest PA and Lateral IMPRESSION: No acute cardiopulmonary disease or major interval change. Electronically Signed: Mono Sharif DO at 21:10 EST Tel [phone], Service support ,
[2021-09-21 10:36] LABS: Absolute Neutrophil Count 5.3 X10^3/uL (2.0-7.7); Basophil# 0.04 X10^3/uL; Basophil% 0.5 % (0-1); Eosinophil# 0.08 X10^3/uL; Eosinophils% 1.1 % (0-5); Hemoglobin 15.1 g/dL (12.0-15.0); Lymphocyte % 17.2 % (19-41); Mean Corp Hgb Conc 36.8 g/dL (32-36); Mean Corpuscular Volume 97.6 fL (81-99); Mean Platelet Vol. 10.4 fl (6.2-12.0); Monocyte# 0.82 X10^3/uL; Monocyte% 10.8 % (0-10); NRBC Flagged by Analyzer 0 % (0-5); Neutrophil # 5.29 X10^3/uL (2.7-7.7); Neutrophil % 69.9 % (47-70); Platelet Count 253 K/mm3 (150-450); RBC Distribution Width CV 13.8 % (11.6-14.6); RBC Distribution Width SD 44.4 fl (35.1-43.9); White Blood Count 7.6 K/mm3 (4.4-11.0)
[2021-09-21 11:04] LABS: Anion Gap 6 (5-15); BUN 19 mg/dL (7-18); BUN/Creat Ratio 20.6 RATIO (10-20); Calcium,Total 9.6 mg/dL (8.5-10.1); Chloride 106 mmol/L (98-107); Creatinine, Serum 0.92 mg/dL (0.55-1.02); EST Glomerular Filtration Rate 63 mL/min (>60); Est Glom Filt Rate - Afr Amer 76 mL/min (>60); Glucose 99 mg/dL (74-106); Potassium 3.6 mmol/L (3.5-5.1); Sodium Level 140 mmol/L (136-145)
== END 2021-09-21 23:59 | disposition short-term general hospital (02) ==
PROVIDERS: PCP Nurse Practitioner; Referring Provider Physician Assistant Medical; Visit Provider Physician Assistant Medical
DX: R06.02 Shortness of breath (principal); I48.0 Paroxysmal atrial fibrillation; E78.2 Mixed hyperlipidemia
CPT/HCPCS: 36415; 71046; 80048; 83880; 85025

== ENCOUNTER 2021-09-29 10:29 | Outpatient (CLI) | payer MEDICARE, SELFPAY ==
--- NOTE | 2021-09-29 10:31 | BI_ITS ---
MAMMOGRAPHY - BILATERAL SCREENING REASON FOR EXAM: Female, 75 years old. Routine annual screening examination. PERTINENT HISTORY: Grandmother with breast cancer. TECHNIQUE: Digital bilateral breast tylor (3D mammographic acquisition) in the CC and MLO projections. 2-D mediolateral oblique (MLO) and craniocaudad (CC) views of both breasts were obtained. CAD: Full Field Digital Mammography with Computer Added Detection was performed. COMPARISON: Comparison is made with prior study dated 09/28/2020 and 09/27/2019. FINDINGS: Breast Composition: The breasts are almost entirely fatty. There are no dominant masses or suspicious calcifications. Stable bilateral macrocalcifications. No other significant abnormalities are identified. There has been no significant change since the prior study. BI/SCRN MAMM (CAD)W/TYLOR BILAT IMPRESSION: Stable bilateral screening mammogram. Yearly follow-up mammogram recommended. (A) ASSESSMENT CATEGORY: BIRADS Category 2: Benign. A letter regarding these results will be sent to the patient by the facility within 30 days. Approximately 10% of breast cancers are not detected by mammography. A normal mammogram should not delay biopsy of a clinically suspicious abnormality. [id number] Electronically Signed: Wayne Rabago MD at 12:11 EST , Service support ,
== END 2021-09-29 23:59 | disposition short-term general hospital (02) ==
LOC: OPBI 10:30
PROVIDERS: PCP Nurse Practitioner; Referring Provider Nurse Practitioner; Visit Provider Nurse Practitioner
DX: Z12.31 Encounter for screening mammogram for malignant neoplasm of breast (principal); Z80.3 Family history of malignant neoplasm of breast
CPT/HCPCS: 77063; 77067

== ENCOUNTER 2021-09-30 06:20 | Outpatient (CLI) | payer MEDICARE, SELFPAY ==
--- NOTE | 2021-09-30 06:22 | ECHOCS_ITS ---
Reason For Study: DYSPNEA Procedure This was a 2D Doppler, Color Flow transthoracic echocardiogram. The study was technically difficult. Contrast injection was performed. Exam performed in department. Left Ventricle Normal LV size. Left ventricular systolic function is normal. The estimated ejection fraction is 60 %. Stage 1 diastolic dysfunction. No regional wall motion abnormalities noted. Right Ventricle Normal RV size. Normal systolic function. Atria Normal left atrium. Normal right atrium. Mitral Valve Normal mitral valve. Tricuspid Valve Normal tricuspid valve. Mild (1+) tricuspid valve insufficiency. Aortic Valve Trisinus/trileaflet aortic valve. Mild (1+) eccentric aortic valve insufficiency. Pulmonic Valve Normal pulmonic valve. Great Vessels Normal aortic root. The pulmonary artery is normal size. Normal inferior vena cava. Pericardium/Pleural No pericardial effusion. Medication Diluted definity 2.5ml given slow IV push to enhance endocardial definition. MMode/2D Measurements & Calculations RVDd: 2.9 cm Ao root diam: 3.1 cm LAV(MOD-bp): 43.2 ml LAV(MOD-bp) Indexed: 21.1 ml/m2 LAV(MOD-sp2): 46.1 ml LAV(MOD-sp4): 40.1 ml SV(MOD-sp4): 45.2 ml LVAd ap4: 24.5 cm2 LVAd ap2: 24.9 cm2 LVLd ap4: 7.3 cm LVLd ap2: 7.4 cm EDV(MOD-sp4): 67.8 ml EDV(MOD-sp2): 72.3 ml EDV(sp4-el): 69.8 ml EDV(sp2-el): 71.4 ml LVAs ap4: 12.5 cm2 LVAs ap2: 14.7 cm2 LVLs ap4: 6.1 cm LVLs ap2: 6.2 cm ESV(MOD-sp4): 22.6 ml ESV(MOD-sp2): 30.3 ml ESV(sp4-el): 21.7 ml ESV(sp2-el): 29.6 ml EF(MOD-sp4): 66.6 % EF(MOD-sp2): 58.1 % EF(sp4-el): 68.8 % SV(MOD-sp2): 42.0 ml SV(sp4-el): 48.1 ml LA A4 area: 16.2 cm2 LA dimension(2D): 3.2 cm RA A4 area: 13.4 cm2 Doppler Measurements & Calculations MV E max parmjit: 73.8 cm/sec Lat Peak E' Parmjit: 7.4 cm/sec Med Peak E' Parmjit: 8.0 cm/sec MV A max parmjit: 79.9 cm/sec E/E' lat: 10.0 E/E' med: 9.2 MV E/A: 0.92 Ao V2 max: 167.5 cm/sec AI max parmjit: 472.8 cm/sec LV V1 max: 124.2 cm/sec Ao max P.2 mmHg AI max P.4 mmHg LV V1 max P.2 mmHg AI dec slope: 349.0 cm/sec2 AI P1/2t: 396.7 msec PA V2 max: 158.7 cm/sec TR max parmjit: 218.4 cm/sec TR max P.1 mmHg ECHO/Echo Complete W/ Contrast Interpretation Summary Normal LV size. Left ventricular systolic function is normal. The estimated ejection fraction is 60 %. Stage 1 diastolic dysfunction. Mild (1+) eccentric aortic valve insufficiency. Contrast injection was performed. Ordering Physician: Cassandra Franco Referring Physician: KIMBERLY SPEARS Performed By: Kim Langston, TASIA, RVT
--- NOTE | 2021-09-30 13:13 | STRESSREP_ITS ---
Stress Test Report Exercise myocardial perfusion stress test. 75-year-old lady with a history of exertional shortness of breath. Stress protocol: Resting EKG demonstrates normal sinus rhythm with a rate of 87 bpm normal intervals are noted resting blood pressure is 146/86 mmHg. The patient exercised according to regular Dexter protocol for total duration of 3 minutes and 34 seconds. The maximum heart rate attained was 146 bpm which was 100% of maximal particular heart rate the maximum workload was 5.9 metabolic equivalents. At rest there were no ST or T wave changes noted to suggest abnormal flow reserve at peak exercise upsloping ST changes were noted with did not meet the criteria for ischemia. No clinical angina was noted the patient was noted to be short of breath. The peak blood pressure was 150/78 mmHg. Myocardial perfusion protocol. 14.5 mCi of technetium 99m sestamibi was injected at rest. The patient exercised according to regular Dexter protocol for 3-1/2 minutes and at peak exercise 44.5 mCi of technetium 99m sestamibi was injected stress images were obtained stress and rest images were reconstructed and compared in the short a xis vertical long and horizontal long axis. Gated images were also obtained per Perfusion SPECT analysis: Review of the stress images demonstrate reduced uptake of tracer noted in the proximal and mid anterior wall with the apex being well perfused. The rest of the escobedo are normally perfused. The resting images demonstrate normal perfusion in all the rest of the escobedo. The gated ejection fraction is noted to be 79%. Conclusion: Abnormal exercise myocardial perfusion stress test at a low workload with basal and mid anterior ischemia. Preserved ejection fraction.
== END 2021-09-30 23:59 | disposition short-term general hospital (02) ==
LOC: CVS 06:21
PROVIDERS: PCP Nurse Practitioner; Referring Provider Physician Assistant Medical; Visit Provider Physician Assistant Medical
DX: R06.02 Shortness of breath (principal)
CPT/HCPCS: 78452; 93017; 93306; A9541; Q9957; A4216; C8929

== ENCOUNTER 2021-10-11 07:59 | Day surgery (SDC) | payer MEDICARE, SELFPAY ==
[2021-10-08 07:51] VITALS: BMI 38.4
--- NOTE | 2021-10-11 10:06 | CL.D_ITS ---
Patient Name: KAMRYN SHEETS Study Date: 10/11/2021 Performing: Kp Lopez MD Ht: 64.17 inches 163 cm : 1945 Wt: 224.87 lbs 102 kg Age: 75 Gender: female BSA: 2.06 PROCEDURE(S) PERFORMED DC01-([id number])LHC/COR/LV CLINICAL PROFILE AND INDICATIONS Indications: Suspected CAD Heart Failure: None Stress/Imaging Date: 10/02/20ress Test with SPECT MPI: Positive Intermediate Risk CAD Presentations: Symptom unlikely to be ischemic. CONCLUSIONS Normal coronary arteries Normal LV size, wall motion,and systolic function RECOMMENDATIONS Medical therapy DESCRIPTION OF PROCEDURE The patient arrived to the procedure lab. The risks and benefits of the procedure as well as a full d escription of our services here and current unavailability of surgical backup were fully explained to the patient and/or their significant other prior to the catheterization. The Timeout was completed, verifying the correct patient and procedure. The patient's procedural site was prepped and draped in the usual fashion. Local anesthetic was given subcutaneously to right radial region with Lidocaine 2% . Using a modified Seldinger technique, arterial access was obtained via the right radial artery, a 6 Fr sheath was inserted. Left Coronary Artery selective angiography was performed in multiple views u sing a 5 Fr. 4.0 Aurora catheter. Right Coronary Artery selective angiography was then performed in mu ltiple views using a 5 Fr. 4.0 Aurora catheter. Left Ventriculography was performed in BUSTILLOS projection using a 5 Fr. Pigtail catheter. LV to AO pullback pressures were then recorded.The arterial sheath was pulled and a TR Band was applied for hemostasis CORONARY ANGIOGRAPHY DOMINANCE: Co- Dominant LEFT HEART ASSESSMENT Normal LV wall motion Normal Left Ventricular systolic function LEFT MAIN: Angiographically normal LEFT ANTERIOR DESCENDING ARTERY: No significant disease noted CIRCUMFLEX ARTERY: Mild luminal irregularities RIGHT CORONARY ARTERY: Angiographically normal COMPLICATIONS No Complications PROCEDURE MEDICATIONS Versed 1 mg IV Fentanyl 50 mcg IV Oxygen: 2 L/min via nasal cannula Heparin given IA 10/11/2021 09:48:56 Verapamil 2.5mg, Ntg 100mcgs, 3000 units of Heparin given IA 10/11/2021 09:48:56 SUMMARY OF HEMODYNAMIC DATA Time AIR REST ECG 08:33:02 ECG 09:32:19 AO 144/79 (110) SA 09:50:51 LV 143/0, 9 09:56:26 LV 152/2, 10 09:56:32 LV 146/7, 15 09:57:15 LVp 160/8, 16 09:57:18 AOp 150/65 (102) 09:57:23 Signed By Kp Lopez MD On 10/11/2021 10:05:05 AM Kp Lopez MD
== END 2021-10-11 23:59 | disposition home or self-care (01) ==
PROVIDERS: PCP Nurse Practitioner; Referring Provider Internal Medicine Cardiovascular Disease; Visit Provider Internal Medicine Cardiovascular Disease
DX: R06.02 Shortness of breath (principal); I48.0 Paroxysmal atrial fibrillation; R07.89 Other chest pain; I10 Essential (primary) hypertension; E78.2 Mixed hyperlipidemia; Z79.82 Long term (current) use of aspirin; Z79.899 Other long term (current) drug therapy; Z87.891 Personal history of nicotine dependence
CPT/HCPCS: 93458; 99152; 99153; Q9967; C1769; C1894

== ENCOUNTER 2021-10-22 15:55 | Outpatient (CLI) | payer MEDICARE, SELFPAY ==
[2021-10-22 17:50] LABS: Hematocrit 41.7 % (37-47); Mean Corp Hgb Conc 33.6 g/dL (32-36); Mean Corpuscular Hgb 31.9 pg (27.0-32.0); Mean Platelet Vol. 10.7 fl (6.2-12.0); Platelet Count 218 K/mm3 (150-450); RBC Distribution Width CV 13.4 % (11.6-14.6); Red Blood Count 4.39 M/mm3 (4.2-5.4); White Blood Count 6.6 K/mm3 (4.4-11.0)
[2021-10-22 18:08] LABS: Anion Gap 6 (5-15); BUN 18 mg/dL (7-18); BUN/Creat Ratio 21.4 RATIO (10-20); Calcium,Total 9.4 mg/dL (8.5-10.1); Chloride 107 mmol/L (98-107); Creatinine, Serum 0.84 mg/dL (0.55-1.02); EST Glomerular Filtration Rate 70 mL/min (>60); Est Glom Filt Rate - Afr Amer 85 mL/min (>60); Glucose 108 mg/dL (74-106); Potassium 3.6 mmol/L (3.5-5.1); Sodium Level 143 mmol/L (136-145); T4 Total, Thyroxin 7.2 ug/dL (4.8-13.9); Thyroid Stim Hormone (TSH) 0.53 uIU/mL (0.358-3.74)
[2021-10-24 08:28] LABS: MG Sendout 1.9 mg/dL (1.6-2.3)
== END 2021-10-22 23:59 | disposition home or self-care (01) ==
LOC: LAB 15:56
PROVIDERS: PCP Nurse Practitioner; Visit Provider Internal Medicine Cardiovascular Disease
DX: R00.0 Tachycardia, unspecified (principal); I49.3 Ventricular premature depolarization; I10 Essential (primary) hypertension
CPT/HCPCS: 36415; 80048; 83735; 84436; 84443; 85027

== ENCOUNTER → 2022-01-27 | Outpatient (CLI) | payer MEDICARE, SELFPAY ==
[2022-01-27 15:26] LABS: Erythrocyte Sedimentation Rate 19 mm/hr (0-30)
[2022-01-27 16:19] LABS: CRP 3.98 mg/L (0.0-3.0); Creatinine, Serum 0.88 mg/dL (0.55-1.02); EST Glomerular Filtration Rate 66 mL/min (>60); Est Glom Filt Rate - Afr Amer 80 mL/min (>60)
== END | disposition home or self-care (01) ==
PROVIDERS: PCP Nurse Practitioner; Referring Provider Psychiatry & Neurology Neurology; Visit Provider Psychiatry & Neurology Neurology
DX: G44.009 Cluster headache syndrome, unspecified, not intractable (principal)
CPT/HCPCS: 36415; 82565; 85652; 86140

== ENCOUNTER → 2022-02-02 | Outpatient (CLI) | payer MEDICARE, SELFPAY ==
--- NOTE | 2022-02-02 10:07 | MRI_ITS ---
STUDY: MRI BRAIN WITH AND WITHOUT CONTRAST REASON FOR EXAM: Female, 76 years old. Cluster headaches; also, tension or migraine headache TECHNIQUE: Standardized multiplanar fat and water weighted pulse sequences were obtained. IV 20cc dotarem was administered for the contrast portion of the examination. COMPARISON: None. FINDINGS: There is mild to moderate cerebral atrophy with widening of the extra-axial spaces and ventricular dilatation. There are a limited number of small white matter hyperintensities, distributed throughout the deep white matter tracts of the cerebral hemispheres, consistent with mild chronic white matter ischemic changes. Normal T2* images of the brain without demonstrated susceptibility artifact. There is no demonstrated hemosiderin stain. There is no evidence for recent intracranial ischemia or other cause of cytotoxic edema on diffusion weighted imaging (DWI). No focal parenchymal lesions or abnormal enhancement is seen. Normal bilateral basal ganglia. Normal thalami. There is no extra-axial fluid accumulation. Normal flow voids within the major intracranial circulation suggesting patency by spin echo criteria. Normal venous enhancement. There is no enhancing intra-axial or extra-axial abnormality. Normal sella turcica, pituitary gland, infundibular stalk, optic chiasm and hypothalamus. Normal tectal plate and pineal gland. Normal midbrain, curly and medulla. Normal cerebellum. Normal basal cisterns. Normal bilateral temporal bones. Normal bilateral internal auditory canals. No demonstrated orbital abnormality, within the constraints of a routine brain study. Normal visualized paranasal sinuses. Normal calvarium and skull base. Normal visualized soft tissue structures. Normal visualized upper cervical spine. MRI/Brain W/WO Contrast IMPRESSION: 1. Chronic ischemic and involutional changes of the brain, as described above. Electronically Signed: Matt Murray MD at 13:30 EDT ,
== END | disposition home or self-care (01) ==
LOC: MRI 10:07
PROVIDERS: PCP Internal Medicine; Referring Provider Psychiatry & Neurology Neurology; Visit Provider Psychiatry & Neurology Neurology
DX: G44.009 Cluster headache syndrome, unspecified, not intractable (principal)
CPT/HCPCS: 70553; A9575

== ENCOUNTER 2022-02-09 18:00 | Outpatient (RCR) | payer MEDICARE, SELFPAY ==
--- NOTE | 2022-02-01 10:35 | HP.PTEVAL_ITS ---
Patient's Visit Information KAMRYN SHEETS is a 76 year old F referred to Physical Therapy by Dr. Larissa Griffiths DO with a diagnosis of BPPV Eply Maneuver. Date of Evaluation: 02/01/22 Physical Therapist: MAIDA Hopkins - Visit Plan Frequency: 1-2x /Week Duration: 2 Months Plan: Head and eyes moving in opposite direction (VOR X 2). FGA. 1-2X/ week for test above, VOR progression, balance with vestibular inputs, with HEP - Subjective Pt thinks that she has vertigo and has been coming on. She feels it when she moves her head. In bed it is really bad. As soon as she is sitting still and straight she is not too bad. She washed her hair FW and pulled head back she started to be unsteady and dizzy. Has MRI tomm and thinking about cluster migraines. The day before yesterday it was hard and was hard to focus in the morning but was ok by mid day. Things are better toward later in the day. When she gets from bed she feels everything is spinning and she has to hold onto things. Started worse rolling to the R but now it is bad both directions. Not every time that she rolls to the L or R does she get dizzy. The room spinning dizziness last less than 1 minute but it varies. She usually sits down. Sitting in a car does not make her dizzy. Mowing her yard does not make her dizzy. Her balance has decreased with age. Her eyes feel full. The cluster migranines lasted a month and started with pain in her jaw and moved up to her teeth and sinus on the L side to L eye to pentecostal and head and start gradual and go up 9.... 1 hour to hour and half everyday. Dentist cleared her, Dr Palacios cleared her and sent her to a neurologist for Cluster SALMON. - Pain head pressure Pain Intensity (Out of 10): 2 - Objective -Hallpike B for dizziness or nystagmus. -Roll test B. CATSIB 100/120. smooth pursuit horizontal good X 30 sec. Smooth pursuit vertical ... had to catch up X 5 seconds. eyes focused and head movement. 2 point eye movements (saccades) .. worse with vertical than horizontal as far as jerky movements. VOR CX (head and eyes move together X 30 seconds horizontal)... feels a little icky. VOR CX Head and eyes move together X 30 seconds vertical..... spacey and feels off... stomach did not feel great - Balance/Special Test Scores CATSIB Score (Max score 120 seconds): 100 Dizziness Score: 26 - Anticipated Interventions Patient/Client Instruction: Educate patient on: Condition, Plan of Care For the Purpose of:: To improve muscle performance and motor function, To improve ability to perform ADL's, To increase tolerance to activity/condition/position, To improve performance and independence with ADL's, To improve ability of physical actions for home/community/work/leisure, To improve gait and locomotor functions, To increase flexibility/ROM, To improve endurance, To improve balance, To improve safety with gait Therapeutic Exercise to Include: Strength training, Balance training, Postural training, Gait and locomotor training, Neuromotor development For the Purpose of:: To improve ability to perform ADL's, To increase tolerance to activity/condition/position, To improve performance and independence with ADL's, To decrease level of supervision to perform tasks, To improve ability of physical actions for home/community/work/leisure, To improve gait and locomotor functions, To improve health of tissue, To decrease soft tissue restriction, To increase flexibility/ROM, To improve balance, To improve safety with gait Functional Training to Include: Gait training For the Purpose of:: To improve gait and locomotor functions Thank you for the opportunity to evaluate your patient. For Medicare and Medicare HMO plans, please review the plan of care and approve it. It will need to be FAXED BACK to us at [phone] for Medicare purposes. For Medicare only, by signing this I certify the plan of care. Please let me know if there are questions or concerns regarding this plan of care. Physician Signature: Date:
--- NOTE | 2022-02-09 18:39 | HP.PTDCSUM ---
It has been my pleasure to treat KAMRYN SHEETS referred by Dr. Larissa Griffiths DO, with the diagnosis of BPPV Eply Maneuver for a total of 2 visit(s). Discharge Date: 02/09/22 Please see the following information for a summary of their discharge status. Subjective: She has not had any vertigo since her MRI. She has been doing the HEP. Her brain showed some mini strokes but common at her age. She is less stressed since she had the MRI. head pressure Pain Intensity (Out of 10): 2 % Improvement: 98 Objective/Function: VOR X1, VOR X 2, VOR CX, Smooth Pursuit horizontal and vertical normal X 1 min each. FGA: Plan: Head and eyes moving in opposite direction (VOR X 2). 1-2X/ week for test above, VOR progression, balance with vestibular inputs, with HEP Discharge Comments: DC PT to HEP If there are questions or concerns regarding this patient's physical therapy, please feel free to call me at [phone]. Thank you for the referral of this patient. Sincerely, Krista Ruiz, MPT Balance/Gait/Functional tests - Balance/Special Test Scores Functional Gait Assessment Score: 28 % Disability: 6.6700 CATSIB Score (Max score 120 seconds): 100 Dizziness Score: n
== END 2022-02-09 19:00 | disposition home or self-care (01) ==
LOC: PT 18:00
PROVIDERS: PCP Internal Medicine; Referring Provider Internal Medicine; Visit Provider Internal Medicine
DX: H81.10 Benign paroxysmal vertigo, unspecified ear (principal)
CPT/HCPCS: 97161; 97530

== ENCOUNTER 2022-03-21 05:56 | Day surgery (SDC) | payer MEDICARE, SELFPAY ==
[2022-03-21 06:25] VITALS: BP 150/88; PULSE 91; RESP 16; TEMP 36.6; O2SAT 96; BMI 38.2
[2022-03-21] MEDS: Lactated Ringers 1,000 ML 15 ML IV (06:33)
--- NOTE | 2022-03-21 07:13 | HP.PCM.OB_ITS ---
History and Physical Date of Admission: 03/21/22 Surgical History and Physical Date: 03/21/2022 Name: IVETH SHEETS Age: 76 Date of : 1945 Iveth Sheets, a 76 year old female 0 0 0 0 0, presents for Hysteroscopy, D, polypectomy on 03/21/22 at 7:30. -- Iveth presents here for Hysteroscopy D and C with PolypectomyM. 76 y.o. G 0 P 0 post-menopausal. Questions answered and consents signed. MEDICATIONS HISTORY: Patient is also takin. Calcium 600 + D(3) 600 mg (1,500 mg)-200 unit tablet, One pill by mouth once a day 2. Livalo 1 mg tablet, One pill by mouth once a day 3. Multivitamin 50 Plus tablet, One pill by mouth once a day 4. Supplement (s) [No Strength], Probiotic 1 po daily 5. Toprol XL 50 mg tablet,extended release, One pill by mouth once a day 6. amlodipine 5 mg tablet, One pill by mouth once a day ALLERGIES: Penicillins, Swelling (localized) Infections - IBS constipation Illnesses - IBS, Atrial Fib and HTN Accidents - None Hospitalizations - see surgery Review of Systems: GENERAL - Denies fever, or chills SKIN - Denies skin changes EYES - Denies visual changes EARS - Denies difficulty hearing NOSE - Denies nasal congestion or bleeding MOUTH - Denies sore throat or difficulty swallowing NECK - Denies pain or swelling RESPIRATORY - Denies shortness of breath or wheezing CARDIOVASCULAR - Denies palpitations or chest pain GASTROINTESTINAL - Denies nausea, vomiting, diarrhea, constipation GENITOURINARY - Denies dysuria, frequency of urination, incontinence of urine MUSCULOSKELETAL - Denies joint or muscle pain NEUROLOGICAL - Denies localized numbness or weakness PSYCHIATRIC - Denies depression or anxiety ENDOCRINE - Denies heat or cold intolerance, weight loss or gain HEMATO-IMMUNOLOGIC - Denies excessive bleeding with cuts SOCIAL HISTORY: Alcohol Use - socially Smoking - used to smoke but quit Diet - moderate, balanced diet Lifestyle - moderate stress lifestyle and single Exercise - walking Seat Belt Use - always 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 cholecystectomy ; - 2. left side of thyroid removed ; - 3. 09/11/2011 left hip ; - 4. 09/11/2016 left cataract ; - 5. broken ankle ; - 6. 03/11/2013 right hip ; - 7. 09/11/2007 Breast reduction ; - 8. 07/01/2021 hysteroscopy, D and C, Symphion ; Star Pandey MD - PHYSICAL EXAM BP- 140/84 Sitting, Right arm, large cuff Weight- 230.87336 lbs Height- 64.5 inch BMI:[id number] CONSTITUTIONAL - NAD, well nourished, and well developed SKIN - No rash, lesions, or ulcers HEENT - Normocephalic, PERRLA, EOMI NECK - No nodes, no nuchal rigidity and thyroid normal size and texture EXTREMITIES - No edema or calf tenderness NEUROLOGICAL - Cranial nerves II-XII grossly intact PSYCHIATRIC - A and O to time, place, person, mood and affect ASSESSMENT/PLAN: 1. Encounter For Other Preprocedural Examination 06/2021 had hysteroscopy D polypectomy for postmenopausal bleeding. Showed Simple Hyperplasia without atypia. Start on progesterone but pt stopped after 1 month with night sweats 4 to 5 cm fundal polyp removed via Symphion. Pathology simple hyperplasia without atypia Patient now scheduled for repeat hysteroscopy D&C. Risk benefits alternatives discussed, patient states understanding and wished to proceed. All questions were answered and consent was signed Educated patient on postoperative recovery. Discussed medications Follow-up 2 weeks postoperatively
--- NOTE | 2022-03-21 07:30 | EMB_PTH ---
PATIENT: KAMRYN SHEETS LOC: [facility] – [place] U#:[id number] AGE/SX: 76/F ROOM: RE03/21/[address]: Dr. Star Pandey MD : 1945 BED: DIS: 03/21/2022 SPEC #: [id number] RECD: 03/21/22 10:05 STATUS: MUNIR ANNA #: [id number] ROBERTO CARLOS: 03/21/22 07:[address]: Star Pandey DEPT: SURGICAL PATHOLOGY RECD BY: Celsa Vinson ENTERED: 03/21/22 13:02 SP TYPE: ENDOM BX/C YADI DR: Jennifer Primary Care Phys Tissues: Endometrium, NOS Procedures: Surgery Specimen Level IV HEADER OPERATION: Hysteroscopy, D & C Symphion, repair of vagina laceration PRE-OP DIAGNOSIS: Postmenopausal bleeding TISSUE SUBMITTED: Endometrial curettings MICROSCOPIC DIAGNOSIS Endometrium, curettings: Polypoid fragments of endometrium with inactive endometrium with cystic change. Fragments of myometrium with no pathologic change. AM:tanna 03/22/2022 MICROSCOPIC DESCRIPTION Slides are reviewed. GROSS DESCRIPTION Received in fixative is one container labeled with the patient's name and designated endometrial curettings. The specimen consists of multiple irregular fragments of hurley soft tissue that in aggregate measure 2 x 2 x 0.2 cm. The specimen is totally submitted in one cassette. / SJ:tanna 03/21/2022 TC:5 CPT: 70469
[2022-03-21 08:09] VITALS: BP 119/69; BP 150/88; PULSE 80; RESP 16; TEMP 36.8; O2SAT 96
--- NOTE | 2022-03-21 08:12 | DCINST_ITS ---
Discharge Instructions Diet Discharge Diet: No restrictions Activity Discharge Activity: Return to Normal Activity, May Drive and May Shower May resume sexual activity in: 4-6 weeks Weight Bearing Status: Weight bearing as tolerated Dressing / Incision Call your doctor if your incision/area has: Continuous Slow Oozing and Foul Smelling Discharge Call your doctor if you observe: Fever of 101 or Higher, Shortness of breath and Chest pain Follow Up Care Please Follow Up With: Star Pandey MD When: 2 weeks postoperatively Test Results: Test results from this visit will be discussed in further detail at your follow- up appointment, if applicable. Discharge Plan Admission Attending Provider: Star Pandey Primary Care Provider: Care PhysicianJennifer Primary Discharge Orders/Prescriptions Prescriptions: No Action multivitamin [Multiple Vitamin] Tablet 1 tab PO DAILY cranberry 500 mg Capsule 500 mg PO DAILY Rx Instructions: administer with meals calcium carbonate-vitamin D3 [Calcium 600 with Vitamin D3] 600 mg-10 mcg (400 unit) Capsule 1 cap PO DAILY Livalo 1 mg Tablet 1 mg PO DAILY Probiotic 3 billion cell Capsule 3,000 mmu cells PO DAILY Rx Instructions: administer with a meal metoprolol succinate 50 mg tablet extended release 24 hr 50 mg PO DAILY amlodipine 5 mg tablet 5 mg PO DAILY Qty: 30 11RF Referrals / Follow Up: Care Physician,No Primary [Primary Care Provider] - Disposition Disposition (needs filled in before D/C Order can be placed): Home, Self Care
--- NOTE | 2022-03-21 08:13 | OP.PCM_ITS ---
Report of Operation Date of Procedure: 03/21/22 Pre-Operative Diagnosis: Postmenopausal bleeding Post-Operative Diagnosis: Postmenopausal bleeding Surgery/Procedure Performed:: Hysteroscopy, dilation curettage via Symphion, vaginal laceration repair Description of Surgical Findings:: Surgeon: Star Pandey MD Anesthesia: MAC EBL: 15 cc Urine output: 50 cc none IV fluids: 350 cc Complications: None Specimen: Endometrial curettings Findings: Narrow introitus noted to have half centimeter vaginal laceration at 5 o'clock position after sterile vaginal preparation. Uterine cavity with partial thickened endometrial lining on posterior portion of the uterus otherwise no signs of polyp or other pathology. Symphion on fluid deficit 350 cc. Consent: Patient with postmenopausal bleeding and elects for hysteroscopy, dilation and curettage via Symphion device. Patient understands the risk of the procedure include but are not limited to visceral or vascular injury, prolonged hospitalization, blood loss and need for transfusion, reoperation. Patient stated understanding and wished to proceed. All questions were answered and consent was signed. Procedure: Patient was brought back to the OR where MAC anesthesia was found to be adeq uate. Patient was prepared and draped in a dorsolithotomy position with yellowfin stirrups. A weighted speculum is placed in the posterior aspect of the vagina, cervical dilators were used to dilate the cervix. Hysteroscope was inserted and above findings were noted. Using Symfi on device curettage in all 4 quadrants was performed. Good hemostasis was noted. Curettings sent to pathology. Hysteroscope removed under direct visualization. As noted above vaginal laceration noted after vault prep was performed. Laceration repaired with 3-0 Vicryl suture. Good hemostasis was noted. All counts were correct x2. Patient tolerated the procedure well and was brought to recovery in a stable condition.
[2022-03-21 08:15] VITALS: BP 127/67; BP 150/88; PULSE 76; RESP 16; O2SAT 96
[2022-03-21 08:20] VITALS: BP 117/70; BP 150/88; PULSE 78; RESP 16; O2SAT 96
[2022-03-21 08:28] VITALS: BP 133/69; BP 150/88; PULSE 73; RESP 16; TEMP 36.3; O2SAT 96
[2022-03-21 09:08] VITALS: BP 124/80; BP 150/88; PULSE 80; RESP 16; O2SAT 98
== END 2022-03-21 09:10 | disposition home or self-care (01) ==
LOC: SDC 05:56 → AC 05:57
PROVIDERS: Referring Provider Obstetrics & Gynecology; Visit Provider Obstetrics & Gynecology
PROC: 0UB98ZZ Excision of Uterus, Via Natural or Artificial Opening Endoscopic (ICD-10-PCS; CPT 58558; principal; 2022-03-21 07:15)
DX: N95.0 Postmenopausal bleeding (principal); I48.0 Paroxysmal atrial fibrillation; S31.41XA Laceration without foreign body of vagina and vulva, initial encounter; I10 Essential (primary) hypertension; K58.1 Irritable bowel syndrome with constipation; Z79.899 Other long term (current) drug therapy; Z87.891 Personal history of nicotine dependence; X58.XXXA Exposure to other specified factors, initial encounter
CPT/HCPCS: 58558; 57200; 88305; J7120; J2405

== ENCOUNTER → 2022-10-19 | Outpatient (CLI) | payer MEDICARE, SELFPAY ==
--- NOTE | 2022-10-19 09:45 | BI_ITS ---
MAMMOGRAPHY - BILATERAL SCREENING REASON FOR EXAM: Female, 76 years old. Routine annual screening examination. PERTINENT HISTORY: Grandmother with breast cancer. History of remote bilateral breast reduction surgery. TECHNIQUE: Digital bilateral breast tylor (3D mammographic acquisition) in the CC and MLO projections. 2-D mediolateral oblique (MLO) and craniocaudad (CC) views of both breasts were obtained. CAD: Full Field Digital Mammography with Computer Added Detection was performed. COMPARISON: Comparison is made with prior study dated 09/29/2021 and 09/28/2020. FINDINGS: Breast Composition: The breasts are almost entirely fatty. There are no dominant masses or suspicious calcifications. Stable macrocalcifications in the left breast. No other significant abnormalities are identified. There has been no significant change since the prior study. BI/SCRN MAMM (CAD)W/TYLOR BILAT IMPRESSION: Stable bilateral screening mammogram. Yearly follow-up mammogram recommended. (A) ASSESSMENT CATEGORY: BIRADS Category 2: Benign. A letter regarding these results will be sent to the patient by the facility within 30 days. Approximately 10% of breast cancers are not detected by mammography. A normal mammogram should not delay biopsy of a clinically suspicious abnormality. [id number] Electronically Signed: Wayne Rabago MD at 11:05 EST ,
--- NOTE | 2022-10-19 09:50 | BD_ITS ---
STUDY: DUAL ENERGY X-RAY ABSORPTIOMETRY / DXA REASON FOR EXAM: Female, 76 years old. [id number] TECHNIQUE: Bone Mineral Density (BMD) measurements of lumbar spine and left forearm were obtained. COMPARISON: Comparison is made with prior study dated 09/13/2017. FINDINGS: Lumbar Spine (L1-L4): g/cm2 (0.820) / T-score (-1.4) / Z-score (0.9) Findings are suggestive of osteopenia with a low fracture risk. Left Forearm: g/cm2 (0.597) / T-score (-1.6) / Z-score (1.2) The T-Scores on the most recent prior examination were: Lumbar Spine (L1-L4): There has been improvement of bone density since the previous examination. BD/Dexa Bone Density Study IMPRESSION: The patient is considered osteopenic as outlined below according to World Romie Organization (WHO) criteria with a moderate fracture risk. There has been improvement of bone density since the previous examination. Reference Information: The T-score is the number of standard deviations above or below the standard which is normal for young adults at their peak bone mineral density. The World Health Organization (WHO) interprets the T-scores as follows: Above -1 Normal bone density Between -1 and -2.5 Osteopenia Equal to / or below -2.5 Osteoporosis As a practical clinical guideline, osteopenia may be graded as follows: Mild -1 through -1.5 Moderate -1.6 through -2.0 Severe -2.1 through -2.4 The Z-score is the number of standard deviations above or below age-matched controls. A Z-score of less than -1.5 would be considered abnormal. References: 1. NIH Osteoporosis and Related Bone Diseases www osteo.org 2. International Society for Clinical Densitometry www iscd.org 3. National Osteoporosis Foundation www nof.org Electronically Signed: Wayne Rabago MD at 15:23 EST ,
== END | disposition home or self-care (01) ==
LOC: OPBD 09:42
PROVIDERS: Visit Provider Nurse Practitioner Family
DX: Z13.820 Encounter for screening for osteoporosis (principal); Z78.0 Asymptomatic menopausal state; Z12.31 Encounter for screening mammogram for malignant neoplasm of breast; Z80.3 Family history of malignant neoplasm of breast
CPT/HCPCS: 77063; 77067; 77080

== ENCOUNTER → 2023-06-23 | Outpatient (CLI) | payer MEDICARE, SELFPAY ==
[2023-06-23 10:26] LABS: Absolute Lymphocyte Count 0.96 X10^3/uL (0.83-4.51); Absolute Neutrophil Count 4.4 X10^3/uL (2.0-7.7); Basophil# 0.03 X10^3/uL; Basophil% 0.5 % (0-1); Eosinophil# 0.04 X10^3/uL; Eosinophils% 0.7 % (0-5); Hemoglobin 15.8 g/dL (12.0-15.0); Lymphocyte # 0.96 X10^3/ul (0.83-4.51); Lymphocyte % 16.1 % (19-41); Mean Corp Hgb Conc 34.3 g/dL (32-36); Mean Corpuscular Hgb 32.3 pg (27.0-32.0); Mean Corpuscular Volume 94.1 fL (81-99); Mean Platelet Vol. 10.9 fl (6.2-12.0); Monocyte# 0.49 X10^3/uL; Monocyte% 8.2 % (0-10); NRBC Flagged by Analyzer 0 % (0-5); Platelet Count 232 K/mm3 (150-450); RBC Distribution Width SD 45.2 fl (35.1-43.9); Red Blood Count 4.89 M/mm3 (4.2-5.4)
[2023-06-23 10:36] LABS: AST(SGOT) 21 U/L (15-37); Alanine Aminotransfer ALT/SGPT 23 U/L (13-56); Albumin, Serum 3.6 g/dL (3.2-5.0); Alkaline Phosphatase 111 U/L (45-117); Amylase 55 U/L (25-115); Anion Gap 10 (5-15); BUN 14 mg/dL (7-18); BUN/Creat Ratio 14.8 RATIO (10-20); Chloride 105 mmol/L (98-107); Creatinine, Serum 0.94 mg/dL (0.55-1.02); EST Glomerular Filtration Rate 61 mL/min (>60); Est Glom Filt Rate - Afr Amer 74 mL/min (>60); Globulin 3.6 g/dL (2.2-4.2); Glucose 108 mg/dL (74-106); Lipase 34 U/L (13-75); Potassium 3.7 mmol/L (3.5-5.1); Protein, Total 7.2 g/dL (6.4-8.2); Sodium Level 143 mmol/L (136-145)
== END | disposition home or self-care (01) ==
LOC: LABSPEC 09:52
PROVIDERS: Referring Provider Nurse Practitioner Family; Visit Provider Nurse Practitioner Family
DX: R10.9 Unspecified abdominal pain (principal)
CPT/HCPCS: 80053; 82150; 83690; 85025

== ENCOUNTER 2023-06-24 06:38 | Emergency (ER) | payer MEDICARE, SELFPAY ==
[2023-06-24 06:41] VITALS: BP 172/73; PULSE 95; RESP 22; TEMP 36.9; O2SAT 93; BMI 38.5
--- NOTE | 2023-06-24 07:15 | CT_ITS ---
STUDY: CT ABDOMEN AND PELVIS WITH CONTRAST REASON FOR EXAM: Female, 77 years old. Abdominal pain RADIATION DOSAGE (If Supplied By Facility): CTDIvol = ( 22.23 ) mGy, DLP = ( 1427.62 ) mGycm TECHNIQUE: Transaxial images were obtained from the dome of the diaphragm to the symphysis pubis without oral contrast. IV 100mL Isovue-300 was administered. Sagittal and coronal images were reconstructed. Individualized dose optimization techniques were used for this CT. COMPARISON: Chest x-ray June 23, 2023 FINDINGS: The visualized lung bases are unremarkable. The visualized portions of the heart are within normal limits. There are multiple hepatic cysts measuring up to 7.5 cm on the right. There are surgical clips in the gallbladder fossa consistent with a prior cholecystectomy. Common bile duct is prominent measuring 1.2 cm. Normal spleen. Normal pancreas. Normal bilateral adrenal glands. There are parapelvic cysts of the kidneys. Normal visualized stomach. Normal small intestine. There are a few colonic diverticula consistent with diverticulosis. The appendix is visualized and appears normal. There is atherosclerotic calcification of the abdominal aorta, without a demonstrated aneurysm. Normal inferior vena cava. Normal retroperitoneum. Normal urinary bladder. There is atrophy of the uterus. There is no free fluid in the abdomen or pelvis. Normal abdominal wall. There is mild degenerative change of the spine. There are bilateral hip replacements. CT/Abdomen/Pelvis W IV Cont ONLY IMPRESSION: Colonic diverticulosis. No obstruction. Postoperative change. Mild dilatation of the common bile duct. Multiple hepatic cysts. Electronically Signed: Garcia Velarde MD at 8:38 EDT ,
--- NOTE | 2023-06-24 07:17 | EDS_ITS ---
HPI HPI - GI History of Present Illness Chief Complaint: Abd Pain Informant: patient Narrative Narrative: 77-year-old Fe male presenting to the emergency room with chief complaint of upper left abdominal pain. Symptoms have been present consistently for around 1 week. She saw her doctor yesterday had blood work that was negative for any acute abdominal series that was also negative. She was given a muscle relaxant but she has not picked it up yet due to pharmacy backlog. Patient states that the pain is burning at times and grabbing squeezing at others. It starts in the epigastrium and radiates around the left and into the back. Back pain is nonradiating. She points to around T8 as the area of the back that is hurting. She was worried about pancreatic cancer, pancreatitis, choledocholithiasis, postherpetic neuralgia. She worries about these things as her brother had pancreatitis and she notes that this pain is similar to when she had her gallbladder removed. She states the pain is also similar to when she had shingles in the same area. She denies any dyspepsia, increased gas or bloating, change in stool or urine pattern. No abdominal trauma. Last week she received her influenza and COVID vaccination. She had a brief 100 degree fever which resolved and none since. She denies any rash or skin coloration changes. [facility] Medical History Alcohol use Arthritis Arthritis Back pain Cancer Cardiology follow-up encounter Cluster headache Essential hypertension Former smoker Gastric reflux History of echocardiogram History of IBS History of irregular heartbeat History of pain when walking History of skin cancer History of stress test Hyperlipidemia Hypertension Paroxysmal atrial fibrillation Shortness of breath on exertion Thyroid disease Vertigo Wears glasses Home Medications metoprolol succinate 50 mg tablet,extended release 24 hr 50 mg PO DAILY 10/22/21 [History Last Taken 03/21/22] calcium carbonate 600 mg-vitamin D3 10 mcg (400 unit) capsule 1 cap PO DAILY 03/16/22 [History Last Taken Unknown] cranberry 500 mg capsule 500 mg PO DAILY 03/16/22 [History Last Taken Unknown] lactobacillus combination no.4 3 billion cell capsule (Probiotic) 3,000 mmu cells PO DAILY 03/16/22 [History Last Taken Unknown] multivitamin 1 tab PO DAILY 03/16/22 [History Last Taken Unknown] pitavastatin calcium 1 mg tablet (Livalo) 1 mg PO DAILY 03/16/22 [History Last Taken Unknown] amlodipine 5 mg tablet 5 mg PO DAILY #90 tabs 12/13/22 [Rx Last Taken Unknown] hydrocodone-acetaminophen 5-325mg 5mg-325mg 1 tab PO Q6H PRN PRN Pain 3 days #12 TABLETS 06/24/23 [Rx Last Taken Unknown] pantoprazole 40 mg tablet,delayed release 40 mg PO DAILY #14 tabs 06/24/23 [Rx Last Taken Unknown] Allergy/AdvReac Type Severity Reaction Status Date / Time Penicillins Allergy Unknown Verified 06/24/23 06:41 pravastatin [From Pravachol] Allergy Unknown Verified 06/24/23 06:41 simvastatin [From Zocor] Allergy Unknown Verified 06/24/23 06:41 atorvastatin [From Lipitor] AdvReac Unknown Verified 06/24/23 06:41 Family History Father aortic aneurysm Heart disease Sister Seizures Brother coronary stent Hearing loss Heart disease Diabetes Mother Myocardial infarction Anesthesia complication Hearing loss Heart disease Surgical History H/O bilateral hip replacements H/O partial thyroidectomy History of bilateral breast reduction surgery History of cardiac catheterization History of hysteroscopy History of left heart catheterization (10/11/21) History of open reduction and internal fixation (ORIF) procedure Hx laparoscopic cholecystectomy Hx of left cataract extraction Hx of right cataract extraction Social History household members: none current occupational status: retired Smoking Status: Former smoker alcohol intake: current alcohol intake frequency: a few times a month Alcohol type: wine substance use type: does not use caffeine: Yes Type: carbonated beverages what type of physical activity do you participate in: walking frequency: 1-2 times per week duration: 15-30 minutes/day seatbelt use: always do you feel safe at home: Yes ROS ROS ED Constitutional Constitutional ED: Denies chills or weight loss Eyes Eyes: Denies change in vision or diplopia ENT ENT ED: Denies ear pain, rhinorrhea or sore throat Cardiovascular Cardiovascular: Denies chest pain, orthopnea, palpitations or racing heartbeat Respiratory/Chest Respiratory/Chest: Denies cough, dyspnea or orthopnea Gastrointestinal Gastrointestinal: Reports abdominal pain; Denies constipation, diarrhea, melena, nausea or vomiting Genitourinary Genitourinary ED: Denies dysuria, hematuria or urinary frequency Musculoskeletal Musculoskeletal: Reports back pain; Denies arthralgias, myalgias or neck pain Integumentary Denies abscess or rash Neurologic Neurologic: Denies headache(s) or weakness Psychiatric Psychiatric: Denies anxiety, depression, suicidal ideation or suicidal thoughts Endocrine Endocrinology: Denies polydipsia, polyphagia or polyuria Allergic/Immunologic Allergic/Immunologic ED: Denies mouth swelling, tongue swelling or urticaria EXAM Physical Exam Const Vital Signs: 06/24/23 06:41 Temperature 98.4 F Temperature Source Temporal Pulse Rate 95 Respiratory Rate 22 H Blood Pressure 172/73 H Blood Pressure Mean 106 Pulse Ox 93 Oxygen Delivery Method Room Air Positive well nourished, well developed and obese General Appearance ED: well developed Nutritional Appearance: obese HEENT Reports normocephalic, head/scalp atraumatic and moist mucous membranes Eyes PERRL and EOMs intact bilaterally Neck no lymphadenopathy, supple and no JVD Resp normal respiratory effort and clear to auscultation bilaterally Cardio regular rate, regular rhythm and no murmurs GI normal to inspection, nondistended, normoactive bowel sounds and non-tender Palpation: soft Back/Spine no CVA tenderness and normal ROM Extremity normal to inspection General Extremety ED: Negative for edema General Extremity: Negative for edema Neuro oriented x3 and CN's II-XII intact bilaterally Sensorium / Orientation: alert Motor Exam: strength 5/5 throughout Psych mental status grossly normal Mood & Affect: Negative for depressed or tearful Skin no rashes or lesions noted and no wounds Skin Narrative: Specifically no rash is noted in the area that the patient hurts either along the abdominal or back wall. MDM MDM MDM Narrative Medical decision making narrative: Basic blood work showed a normal white count of 5.7 hemoglobin of 14.9. CMP was rather unremarkable with normal liver enzymes and a normal lipase. BUN of 14 creatinine 0.92. Anion gap is 6. EKG and troponin which were obtained are negative. CT of the abdomen pelvis with IV contrast was obtained. This demonstrated hepatic cyst and as well as a dilated common bile duct which has been present before. Colonic diverticulosis noted. No acute findings were seen. Patient received a GI cocktail which did not do anything for my back. At this point I do not see any intra-abdominal emergency. Some of her concerns including pancreatic cancer and choledocholithiasis do not appear to be present. No evidence of AAA or dissection. No free air in the abdomen. No colitis or diverticulitis seen. At this point I think the patient can be discharged home. We will place her on Protonix daily. I can write for a few [place] for severe pain. She can trial the muscle relaxant when she gets it. Would recommend continued follow-up. Would consider H. pylori testing again if she gets benefit from Protonix. History & Record Review Discussion w/independent historian: Patient Additional record(s) reviewed:: Prior outpatient record and Prior labs Lab Data Attestation: I reviewed the patient's lab results. Labs: Laboratory Results - last 24 hr 06/24/23 07:31 WBC 5.7 RBC 4.77 Hgb 14.9 Hct 45.5 MCV 95.4 MCH 31.2 MCHC 32.7 RDW Std Deviation 46.3 H RDW Coeff of Jarrod 13.2 Plt Count 246 MPV 11.0 Immature Gran % (Auto) 0.400 Neut % (Auto) 61.7 Lymph % (Auto) 25.0 Wirt % (Auto) 10.1 H Eos % (Auto) 1.9 Baso % (Auto) 0.9 Absolute Neuts (auto) 3.5 Absolute Lymphs (auto) 1.42 Nucleated RBC % 0 Sodium 141 Potassium 3.7 Chloride 110 H Carbon Dioxide 25.0 Anion Gap 6 BUN 14 Creatinine 0.92 Estim Creat Clear Calc 44.22 Est GFR (MDRD) Af Amer 76 Est GFR (MDRD) Non-Af 63 BUN/Creatinine Ratio 15.2 Glucose 101 Calcium 8.9 Total Bilirubin 0.80 Direct Bilirubin 0.22 AST 27 ALT 22 Alkaline Phosphatase 97 Troponin I High Sens 6 Total Protein 7.2 Albumin 3.3 Globulin 3.9 Lipase 37 Radiography Diagnostic Testing: Clinical Impression(s) from Imaging Studies Abdomen/Pelvis CT 06/24/23 07:15 IMPRESSION: Colonic diverticulosis. No obstruction. Postoperative change. Mild dilatation of the common bile duct. Multiple hepatic cysts. Electronically Signed: Garcia Velarde MD at 8:38 EDT , EKG Initial EKG: Attestation: I personally reviewed and interpreted this EKG as follows: Interpretation: Sinus Rhythm Comments: Normal sinus rhythm with a ventricular rate of 76 bpm. No concerning features of ACS noted. Discharge Plan Triage Chief Complaint: Abd Pain ED Provider: Slade Lee Dx/Rx/DC Orders Clinical Impression: Acute back pain, Abdominal pain, acute, Hepatic cyst Instructions: Abdominal Pain Prescriptions: New pantoprazole 40 mg tablet,delayed release (DR/EC) 40 mg PO DAILY Qty: 14 0RF hydrocodone-acetaminophen [hydrocodone-acetaminophen] 5-325 mg tablet 1 tab PO Q6H PRN PRN (Reason: Pain) 3 Days Qty: 12 0RF No Action multivitamin [Multiple Vitamin] Tablet 1 tab PO DAILY cranberry 500 mg Capsule 500 mg PO DAILY Rx Instructions: administer with meals calcium carbonate-vitamin D3 [Calcium 600 with Vitamin D3] 600 mg-10 mcg (400 unit) Capsule 1 cap PO DAILY Livalo 1 mg Tablet 1 mg PO DAILY Probiotic 3 billion cell Capsule 3,000 mmu cells PO DAILY Rx Instructions: administer with a meal metoprolol succinate 50 mg tablet extended release 24 hr 50 mg PO DAILY amlodipine 5 mg tablet 5 mg PO DAILY Qty: 90 3RF Primary Care Provider: Dian Duron Referrals: Dian Duron, [facility] [Primary Care Provider] - 1 Week Disposition Disposition: Home, Self Care
--- NOTE | 2023-06-24 07:20 | EKG12_ITS ---
Test Reason : ABD PAIN Blood Pressure : / mmHG Vent. Rate : 076 BPM Atrial Rate : 076 BPM P-R Int : 192 ms QRS Dur : 086 ms QT Int : 382 ms P-R-T Axes : 064 041 000 degrees QTc Int : 429 ms Normal sinus rhythm T wave abnormality, consider anterior ischemia Abnormal ECG Confirmed by ROSA ISELA GILL, LEONILA ([id number]), scientific publications editor AMANDEEP MARTINES ([id number]) on 06/26/2023 2:24:57 PM Referred By: Confirmed By:LEONILA NATARAJAN MD
[2023-06-24] MEDS: Mag Hydrox/Al Hydrox/Simeth 30 ML UDC PO (07:31)
[2023-06-24 08:00] LABS: AST(SGOT) 27 U/L (15-37); Alanine Aminotransfer ALT/SGPT 22 U/L (13-56); Albumin, Serum 3.3 g/dL (3.2-5.0); Alkaline Phosphatase 97 U/L (45-117); Anion Gap 6 (5-15); BUN 14 mg/dL (7-18); BUN/Creat Ratio 15.2 RATIO (10-20); Bilirubin, Direct 0.22 mg/dL (0.00-0.30); Calcium,Total 8.9 mg/dL (8.5-10.1); Chloride 110 mmol/L (98-107); Creatinine, Serum 0.92 mg/dL (0.55-1.02); EST Glomerular Filtration Rate 63 mL/min (>60); Est Glom Filt Rate - Afr Amer 76 mL/min (>60); Estimated Creatinine Clearance 44.22 ml/min; Globulin 3.9 g/dL (2.2-4.2); Glucose 101 mg/dL (74-106); Lipase 37 U/L (13-75); Potassium 3.7 mmol/L (3.5-5.1); Protein, Total 7.2 g/dL (6.4-8.2); Sodium Level 141 mmol/L (136-145); Troponin-I HS 6 pg/mL (3.0-54.0)
[2023-06-24 08:23] LABS: Absolute Lymphocyte Count 1.42 X10^3/uL (0.83-4.51); Absolute Neutrophil Count 3.5 X10^3/uL (2.0-7.7); Basophil# 0.05 X10^3/uL; Basophil% 0.9 % (0-1); Eosinophil# 0.11 X10^3/uL; Eosinophils% 1.9 % (0-5); Hematocrit 45.5 % (37-47); Hemoglobin 14.9 g/dL (12.0-15.0); Lymphocyte # 1.42 X10^3/ul (0.83-4.51); Mean Corp Hgb Conc 32.7 g/dL (32-36); Mean Corpuscular Hgb 31.2 pg (27.0-32.0); Mean Corpuscular Volume 95.4 fL (81-99); Monocyte# 0.57 X10^3/uL; Monocyte% 10.1 % (0-10); NRBC Flagged by Analyzer 0 % (0-5); Neutrophil % 61.7 % (47-70); Platelet Count 246 K/mm3 (150-450); RBC Distribution Width CV 13.2 % (11.6-14.6); RBC Distribution Width SD 46.3 fl (35.1-43.9); Red Blood Count 4.77 M/mm3 (4.2-5.4); White Blood Count 5.7 K/mm3 (4.4-11.0)
== END 2023-06-24 09:06 | disposition home or self-care (01) ==
PROVIDERS: Emergency Provider Emergency Medicine; PCP Nurse Practitioner Family; Visit Provider Emergency Medicine
DX: M54.9 Dorsalgia, unspecified (principal); I48.0 Paroxysmal atrial fibrillation; K83.8 Other specified diseases of biliary tract; K76.89 Other specified diseases of liver; R10.12 Left upper quadrant pain; E78.5 Hyperlipidemia, unspecified; K57.30 Diverticulosis of large intestine without perforation or abscess without bleeding; I10 Essential (primary) hypertension; E66.9 Obesity, unspecified; Z87.891 Personal history of nicotine dependence
CPT/HCPCS: 74177; 80048; 80076; 83690; 84484; 85025; 93005; 99282; Q9967

== ENCOUNTER → 2023-08-28 | Outpatient (CLI) | payer MEDICARE, SELFPAY ==
[2023-08-28 10:58] LABS: D-Dimer Quantitative (DVT/PE) 0.74 FEU/ug/m (0.27-0.49)
[2023-08-28 11:01] LABS: CPK Total, Creatine Kinase 48 U/L (26-192); CRP 3.19 mg/L (0.0-3.0); Troponin-I HS 6 pg/mL (3.0-54.0)
== END | disposition home or self-care (01) ==
LOC: LABSPEC 10:30
PROVIDERS: PCP Nurse Practitioner Family; Referring Provider Nurse Practitioner Family; Visit Provider Nurse Practitioner Family
DX: R79.89 Other 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 of blood chemistry (principal); R94.31 Abnormal electrocardiogram [ECG] [EKG]
CPT/HCPCS: 82550; 84484; 85379; 86140

== ENCOUNTER → 2023-08-28 | Outpatient (CLI) | payer MEDICARE, SELFPAY ==
--- NOTE | 2023-08-28 14:20 | CT_ITS ---
STUDY: CTA CHEST REASON FOR EXAM: Female, 77 years old. D DIMER ELEVATED RADIATION DOSAGE (If Supplied By Facility): CTDIvol = ( 14.07 ) mGy, DLP = ( 492.24 ) mGycm TECHNIQUE: The examination was performed with the intravenous administration of IV 100mL Isovue-370. Post-processing of the angiographic images was performed, with multiplanar reformation and 3D reconstruction. Individualized dose optimization techniques were used for this CT. COMPARISON: Comparison is made with prior chest radiograph done earlier today. FINDINGS: Normal enhancement of the main pulmonary artery and right and left pulmonary arteries. Normal enhancement of the bilateral peripheral pulmonary arteries. There is no demonstrated pulmonary embolism. Normal thoracic aorta and visualized great vessels. There is no demonstrated aortic dissection. Normal heart and pericardium. Normal mediastinum. Normal hilar regions. Normal visualized trachea and bronchi. The lungs are well expanded. Mild degree of increased markings at the lung bases suggests a mild linear atelectasis. Normal pleura. Normal chest wall structures. There are degenerative changes of thoracic spine. Status post cholecystectomy. Cysts are seen in the liver involving both lobes. The largest cyst in the right lobe measures 6.2 cm x 6.5 cm. The largest cyst in the left lobe measures 4.4 cm x 5 cm. Small hiatal hernia. CT/CTA Chest W/WO Contrast IMPRESSION: No evidence of pulmonary embolism. Multiple hepatic cysts as described. Electronically Signed: Wayne Rabago MD at 14:41 EST ,
[2023-08-28 14:35] LABS: CREATININE FINGERSTICK < 1.0 mg/dL (0.55-1.02); EGFR FINGERSTICK > 60.0000 mL/min (>60)
== END | disposition home or self-care (01) ==
LOC: CT 13:52
PROVIDERS: PCP Nurse Practitioner Family; Referring Provider Nurse Practitioner Family; Visit Provider Nurse Practitioner Family
DX: R79.89 Other 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 of blood chemistry (principal)
CPT/HCPCS: 71275; 82550; 84484; 85379; 86140; Q9967

== ENCOUNTER → 2023-09-05 | Outpatient (CLI) | payer MEDICARE, SELFPAY | END | disposition home or self-care (01) | LOC: PSN 09:25 | PROVIDERS: PCP Nurse Practitioner Family; Referring Provider Physician Assistant Medical; Visit Provider Physician Assistant Medical | DX: I48.0 Paroxysmal atrial fibrillation (principal); I10 Essential (primary) hypertension; E78.5 Hyperlipidemia, unspecified | CPT/HCPCS: 93225; 93226 ==

== ENCOUNTER → 2023-09-26 | Outpatient (CLI) | payer MEDICARE, SELFPAY ==
--- NOTE | 2023-09-26 14:44 | ECHOD_ITS ---
Reason For Study: VENTRICULAR PREMATURE DEPOLARIZATION Procedure This was a 2D Doppler, Color Flow transthoracic echocardiogram. The study was technically difficult. Exam performed in department. Left Ventricle Normal LV size. Mild concentric left ventricular hypertrophy. Left ventricular systolic function is normal. The estimated ejection fraction is 65 %. Right Ventricle Normal RV size. Normal systolic function. Atria Normal left atrium. Normal right atrium. Mitral Valve Normal mitral valve. Tricuspid Valve Normal tricuspid valve. Mild (1+) tricuspid valve insufficiency. Pulmonary artery systolic pressure is 30 mmHg. Aortic Valve Trisinus/trileaflet aortic valve. Pulmonic Valve Normal pulmonic valve. Great Vessels Normal aortic root. The pulmonary artery is normal size. Inferior vena cava collapse with respiration. Pericardium/Pleural No pericardial effusion. MMode/2D Measurements & Calculations LVIDd: 4.0 cm IVSd: 1.2 cm Ao root diam: 3.0 cm LVIDs: 3.1 cm LVPWd: 1.2 cm RVDd: 3.0 cm FS: 23.9 % LAV(MOD-bp): 63.2 ml LVAd ap4: 20.8 cm2 LVAd ap2: 13.7 cm2 LAV(MOD-bp) Indexed: 30.5 ml/m2 LVLd ap4: 6.3 cm LVLd ap2: 5.0 cm LAV(MOD-sp2): 55.9 ml EDV(MOD-sp4): 58.1 ml EDV(MOD-sp2): 32.1 ml LAV(MOD-sp4): 63.1 ml EDV(sp4-el): 58.0 ml EDV(sp2-el): 31.8 ml LVAs ap4: 10.3 cm2 LVAs ap2: 7.9 cm2 LVLs ap4: 5.0 cm LVLs ap2: 4.6 cm ESV(MOD-sp4): 19.1 ml ESV(MOD-sp2): 12.1 ml ESV(sp4-el): 18.1 ml ESV(sp2-el): 11.7 ml EF(MOD-sp4): 67.1 % EF(MOD-sp2): 62.5 % EF(sp4-el): 68.8 % SV(MOD-sp4): 39.0 ml SV(MOD-sp2): 20.1 ml SV(sp4-el): 39.8 ml LA dimension(2D): 3.7 cm LA A4 area: 20.9 cm2 RA A4 area: 18.3 cm2 TAPSE: 1.8 cm Doppler Measurements & Calculations MV E max william: 81.9 cm/sec Ao V2 max: 115.6 cm/sec LV V1 max: 84.9 cm/sec Ao max P.3 mmHg LV V1 max P.9 mmHg Ao V2 mean: 79.1 cm/sec LV V1 mean P.6 mmHg Ao mean P.8 mmHg LV V1 mean: 60.1 cm/sec Ao V2 VTI: 19.9 cm LV V1 VTI: 15.4 cm AV (velocity ratio): 0.77 PA V2 max: 133.1 cm/sec TR max william: 258.5 cm/sec PA V2 mean: 79.6 cm/sec TR max P.7 mmHg ECHO/Echo Complete Interpretation Summary Normal LV size. Left ventricular systolic function is normal. The estimated ejection fraction is 65 %. Mild concentric left ventricular hypertrophy. Pulmonary artery systolic pressure is 30 mmHg. Ordering Physician: Cassandra Franco Referring Physician: Dian Duron Performed By: Haley Geogre, TASIA, RVT
== END | disposition home or self-care (01) ==
PROVIDERS: PCP Nurse Practitioner Family; Referring Provider Physician Assistant Medical; Visit Provider Physician Assistant Medical
DX: I49.3 Ventricular premature depolarization (principal); I48.0 Paroxysmal atrial fibrillation; I10 Essential (primary) hypertension; E78.5 Hyperlipidemia, unspecified
CPT/HCPCS: 93306

== ENCOUNTER 2023-10-03 10:22 | Day surgery (SDC) | payer MEDICARE, SELFPAY ==
--- NOTE | 2023-09-27 10:51 | HP.PCM_ITS ---
History and Physical Date of Admission: 10/03/23 Iveth Neumann is a 77 year-old female who presents for a cardioversion. She has a history of Atrial fibrillation, hypertension, hyperlipidemia, paroxysmal fibrillation and increased shortness of breath. She did undergo an echocardiogram which demonstrated normal LV function. She did have a stress test which was abnormal however she did undergo a diagnostic heart catheterization which demonstrated normal coronary arteries. PVCs were noted on her testing that she had done. She did restart her metoprolol but she states that this significantly improved with her symptoms. Pt is noted to be in Afib. She was noted to be in Afib at PCP office last week. She is not aware of this. She does not have any chest pain/heaviness. She does not have any worsening SOB. She does not have any palpations that she is aware of. She does not have any lightheadedness/dizziness. She does not have any edema. Intake Vital Signs See EMR Allergies See EMR Medications See EMR PFS Medical History Alcohol use Arthritis Arthritis Back pain Cancer Cardiology follow-up encounter Cluster headache Essential hypertension Former smoker Gastric reflux History of echocardiogram History of IBS History of irregular heartbeat History of pain when walking History of skin cancer History of stress test Hyperlipidemia Hypertension Paroxysmal atrial fibrillation Shortness of breath on exertion Thyroid disease Vertigo Wears glasses Surgical History H/O bilateral hip replacements H/O partial thyroidectomy History of bilateral breast reduction surgery History of cardiac catheterization History of hysteroscopy History of left heart catheterization (10/11/21) History of open reduction and internal fixation (ORIF) procedure Hx laparoscopic cholecystectomy Hx of left cataract extraction Hx of right cataract extraction Family History Father aortic aneurysm Heart diseaseSister SeizuresBrother coronary stent Hearing loss Heart disease DiabetesMother Myocardial infarction Anesthesia complication Hearing loss Heart disease Social History household members: none current occupational status: retired Smoking Status: Former smoker alcohol intake: current alcohol intake frequency: a few times a month Alcohol type: wine substance use type: does not use caffeine: Yes Type: carbonated beverages what type of physical activity do you participate in: walking frequency: 1-2 times per week duration: 15-30 minutes/day seatbelt use: always do you feel safe at home: Yes ROS Const Const: Negative for fatigue, weakness, fever(s) or headache(s) Eyes Eyes: Negative for blind spots, loss of peripheral vision or transient loss of vision ENT ENT: Negative for headache(s), dizziness, tinnitus, Nosebleed/epistaxis or balance problems Cardio Chest Pain: No Palpitations: No Edema: None Muscle aches with walking: None Resp Respiratory: Negative for SOB with activity, SOB at rest, SOB orthopnea\SOB lying down or Cough GI GI: Negative nausea, vomiting, heartburn or vomiting blood/hematemesis : Negative for hematuria Musc Musc: Negative for muscle aches/ myalgia, muscle weakness, joint pain or balance problems Neuro Neuro: Negative for dizziness, lightheadedness, near syncope, syncope, orthostatic symptoms, headache(s) or weakness Marquise Hematologic/Lymphatic: Negative for easy bleeding Endo Endo: Negative for fatigue Cardiology Exam Const Appearance: cooperative, healthy appearing, comfortable, no acute distress and well developed Orientation: alert, awake and oriented x3 Head Head: normal to inspection Ears: hearing grossly normal bilaterally Nose: external nose normal Face and Sinus: face symmetric Mouth: oral mucosae normal, lip normal and moist mucous membranes Eyes General: appearance normal, both eyes and all related structures Eyelids: eyelids normal Conjunctivae: conjunctivae normal Pupils: PERRL EOM: EOM intact bilaterally Neck Neck: normal visual inspection and trachea midline; Negative no JVD Carotids: Negative bruit Chest Chest inspection: normal inspection of the chest Auscultation: Bilateral: Clear to Auscultation Cardio Palpation: normal PMI Rate: regular rate Rhythm: irregularly irregular Heart sounds: S1 normal and S2 normal; Negative rub, gallop or murmur GI GI: soft, no hepatosplenomegaly and bowel sounds present Neuro General: patient alert, patient awake, patient oriented x3 and CN's II-XI intact bilaterally Extremities Pulses: Normal: Right Posterior Tibial Pulse, Left Posterior Tibial Pulse, Right Radial Pulse and Left Radial Pulse Lower Extremity Edema: None: Bilateral Psych Psychological: normal affect Supplemental Info Supplemental Information Cardiac cath 2016: 1. Normal left main coronary artery. 2. Left anterior descending artery with no high-grade stenosis. 3. Left circumflex artery, which is nondominant with no significant stenosis. 4. Right coronary artery, which is dominant with no significant stenosis. 5. Preserved ejection fraction. Cardiac cath 2021: Normal coronary arteries Normal LV size, wall motion,and systolic function RECOMMENDATIONS Medical therapy DESCRIPTION OF PROCEDURE The patient arrived to the procedure lab. The risks and benefits of the procedure as well as a full description of our services here and current unavailability of surgical backup were fully explained to the patient and/or their significant other prior to the catheterization. The Timeout was completed, verifying the correct patient and procedure. The patient's procedural site was prepped and draped in the usual fashion. Local anesthetic was given subcutaneously to right radial region with Lidocaine 2%. Using a modified Seldinger technique, arterial access was obtained via the right radial artery, a 6Fr sheath was inserted. Left Coronary Artery selective angiography was performed in multiple views using a 5 Fr. 4.0 Gresham catheter. Right Coronary Artery selective angiography was then performed in multiple views using a 5 Fr. 4.0 Gresham catheter. Left Ventriculography was performed in BUSTILLOS projection using a 5 Fr. Pigtail catheter. LV to AO pullback pressures were then recorded.The arterial sheath was pulled and a TR Band was applied for hemostasis CORONARY ANGIOGRAPHY DOMINANCE: Co- Dominant LEFT HEART ASSESSMENT Normal LV wall motion Normal Left Ventricular systolic function LEFT MAIN: Angiographically normal LEFT ANTERIOR DESCENDING ARTERY: No significant disease noted CIRCUMFLEX ARTERY: Mild luminal irregularities RIGHT CORONARY ARTERY: Angiographically normal Echo 2021: Normal LV size. Left ventricular systolic function is normal. The estimated ejection fraction is 60 %. Stage 1 diastolic dysfunction. Mild (1+) eccentric aortic valve insufficiency. Contrast injection was performed. Exercise myocardial perfusion stress test 2021: 75-year-old lady with a history of exertional shortness of breath. Stress protocol: Resting EKG demonstrates normal sinus rhythm with a rate of 87 bpm normal intervals are noted resting blood pressure is 146/86 mmHg. The patient exercised according to regular Dexetr protocol for total duration of 3 minutes and 34 seconds. The maximum heart rate attained was 146 bpm which was 100% of maximal particular heart rate the maximum workload was 5.9 metabolic equivalents. At rest there were no ST or T wave changes noted to suggest abnormal flow reserve at peak exercise upsloping ST changes were noted with did not meet the criteria for ischemia. No clinical angina was noted the patient was noted to be short of breath. The peak blood pressure was 150/78 mmHg. Myocardial perfusion protocol. 14.5 mCi of technetium 99m sestamibi was injected at rest. The patient exercised according to regular Dexter protocol for 3-1/2 minutes and at peak exercise 44.5 mCi of technetium 99m sestamibi was injected stress images were obtained stress and rest images were reconstructed and compared in the short a xis vertical long and horizontal long axis. Gated images were also obtained per Perfusion SPECT analysis: Review of the stress images demonstrate reduced uptake of tracer noted in the proximal and mid anterior wall with the apex being well perfused. The rest of the escobedo are normally perfused. The resting images demonstrate normal perfusion in all the rest of the escobedo. The gated ejection fraction is noted to be 79%. Conclusion: Abnormal exercise myocardial perfusion stress test at a low workload with basal and mid anterior ischemia. Preserved ejection fraction Echocardiogram 09/26/2023: Interpretation Summary Normal LV size. Left ventricular systolic function is normal. The estimated ejection fraction is 65 %. Mild concentric left ventricular hypertrophy. Pulmonary artery systolic pressure is 30 mmHg. Assessment and Plan Assessment and Plan (1) Paroxysmal atrial fibrillation: Status: Chronic Plan: Patient appears to be in persistent atrial fibrillation. Her echocardiogram from 09/26/2023 demonstrated ejection fraction of 65%, and normal atrial size. She does have a CHADVASC2 of 3. She has been anticoagulated for 30 days with Eliquis. She will continue metoprolol succinate 50mg daily. She will proceed with a DCCV.
[2023-10-02 08:04] VITALS: BMI 39.8
[2023-10-02 10:30] LABS: Anion Gap 6 (5-15); BUN 19 mg/dL (7-18); Calcium,Total 9.7 mg/dL (8.5-10.1); Chloride 108 mmol/L (98-107); Creatinine, Serum 0.91 mg/dL (0.55-1.02); EST Glomerular Filtration Rate 64 mL/min (>60); Est Glom Filt Rate - Afr Amer 77 mL/min (>60); Estimated Creatinine Clearance 61.23 ml/min; Glucose 94 mg/dL (74-106); Potassium 3.9 mmol/L (3.5-5.1); Sodium Level 141 mmol/L (136-145)
--- NOTE | 2023-10-03 12:46 | PCM.OP.PRO ---
Procedure Report Date of Procedure: 10/03/23 DC cardioversion 77-year-old lady with a history of chronic persistent atrial fibrillation on persistent anticoagulation. Patient is agreeable to having a DC cardioversion. Patient was seen by Dr. Harris of the critical care division. Informed consent was obtained. Anterior-posterior pads were applied. The patient was administered 60 mg of intravenous propofol. 200 J of biphasic DC cardioversion energy were applied and was unsuccessful in restoring sinus rhythm. 300 J of synchronized biphasic energy were applied and this was unsuccessful in restoring sinus rhythm and finally 360 J of biphasic DC cardioversion energy were applied with prompt reversal to sinus rhythm. Premature atrial complexes were noted. Patient tolerated the procedure well. Conclusion: Successful DC cardioversion from atrial fibrillation to sinus rhythm. Follow-up as per office protocol.
--- NOTE | 2023-10-03 13:14 | PCM.OP.PRO ---
Procedure Report Date of Procedure: 10/03/23 CONSCIOUS SEDATION REPORT DATE OF SERVICE: October 03, 2023 BRIEF HISTORY OF PRESENT ILLNESS: The patient is a 77-year-old female who presented to [facility] for an elective outpatient cardioversion due to underlying atrial fibrillation. The patient denied any prior anesthetic complications. She is systemically anticoagulated on Eliquis. Her last surface echocardiogram demonstrated an ejection fraction of 65%. She has never been diagnosed with obstructive sleep apnea, COPD or asthma. PHYSICAL EXAMINATION: VITAL SIGNS: Reviewed and were acceptable. GENERAL: The patient is a female, in no apparent distress, speaking in full sentences. HEENT: Normocephalic, atraumatic. Mucous membranes are moist and pink. Good mouth opening noted. Trachea is midline. CHEST: S1, S2 irregularly irregular. No murmurs, rubs or gallops were noted. LUNGS: Clear to auscultation bilaterally without appreciable wheezes, rales or rhonchi. ABDOMEN: Soft, nontender, nondistended. Positive bowel sounds. EXTREMITIES: There is no clubbing, cyanosis or edema. ASA Class: II DESCRIPTION OF PROCEDURE: After confirmation of informed consent, the patient's anesthesia plan was reviewed in detail. Propofol was chosen. Risks and benefits were reviewed and the patient agreed to proceed. At 1237, the patient was given her first bolus of propofol. In total, the patient required 60 mg of propofol to achieve an appropriate level of sedation. 3 separate attempts at cardioversion were undertaken, the first at 200 J, the second at 300 J and the third at 360 J. Ultimately, this was successful in achieving normal sinus rhythm. The patient was monitored until 1250, at which time she reached her baseline mental status and function. The patient tolerated the procedure well. COMPLICATIONS: None ESTIMATED BLOOD LOSS: None RECOMMENDATIONS: Okay to recover in usual fashion. Procedures Pulmonary 9xxxx: [id number] Con Sedation
== END 2023-10-03 13:30 | disposition home or self-care (01) ==
LOC: CLSP 10:22
PROVIDERS: Physician Assistant Medical; PCP Nurse Practitioner Family; Referring Provider Internal Medicine Cardiovascular Disease; Visit Provider Internal Medicine Cardiovascular Disease
DX: I48.0 Paroxysmal atrial fibrillation (principal); E78.5 Hyperlipidemia, unspecified; I10 Essential (primary) hypertension; R06.02 Shortness of breath; Z79.01 Long term (current) use of anticoagulants; Z79.899 Other long term (current) drug therapy; Z87.891 Personal history of nicotine dependence
CPT/HCPCS: 36415; 80048; 92960; 93005; J7040

== ENCOUNTER → 2023-10-31 | Outpatient (CLI) | payer MEDICARE, SELFPAY ==
--- NOTE | 2023-10-31 09:44 | BI_ITS ---
MAMMOGRAPHY - BILATERAL SCREENING REASON FOR EXAM: Female, 78 years old. Routine annual screening examination. PERTINENT HISTORY: Grandmother with breast cancer. Remote bilateral breast reduction surgery. TECHNIQUE: Digital bilateral breast tylor (3D mammographic acquisition) in the CC and MLO projections. 2-D mediolateral oblique (MLO) and craniocaudad (CC) views of both breasts were obtained. CAD: Full Field Digital Mammography with Computer Added Detection was performed. COMPARISON: Comparison is made with prior study of October 2022 and September 29, 2021. FINDINGS: Breast Composition: The breasts are almost entirely fatty. There are no dominant masses or suspicious calcifications. Stable microcalcifications in the retroareolar region of the left breast. No other significant abnormalities are identified. There has been no significant change since the prior study. BI/SCRN MAMM (CAD)W/TYLOR BILAT IMPRESSION: Stable bilateral screening mammogram. Yearly follow-up mammogram recommended. (A) ASSESSMENT CATEGORY: BIRADS Category 2: Benign. A letter regarding these results will be sent to the patient by the facility within 30 days. Approximately 10% of breast cancers are not detected by mammography. A normal mammogram should not delay biopsy of a clinically suspicious abnormality. [id number] Electronically Signed: Wayne Rabago MD at 11:13 EST ,
== END | disposition home or self-care (01) ==
LOC: OPBI 09:44
PROVIDERS: PCP Nurse Practitioner Family; Referring Provider Nurse Practitioner Family; Visit Provider Nurse Practitioner Family
DX: Z12.31 Encounter for screening mammogram for malignant neoplasm of breast (principal)
CPT/HCPCS: 77063; 77067

== ENCOUNTER → 2024-05-27 | Outpatient (CLI) | payer MEDICARE, SELFPAY | END | disposition home or self-care (01) | PROVIDERS: PCP Nurse Practitioner Family; Referring Provider Nurse Practitioner Family; Visit Provider Nurse Practitioner Family | DX: R06.02 Shortness of breath (principal) | CPT/HCPCS: 94060; 94726; 94729 ==

== ENCOUNTER → 2024-06-12 | Outpatient (CLI) | payer MEDICARE, SELFPAY ==
--- NOTE | 2024-06-12 09:07 | US_ITS ---
STUDY: THYROID ULTRASOUND REASON FOR EXAM: Female, 78 years old. THYROID ULTRASOUND (36405) : hx L thyroidectomy, multiple nodules -- Thyroid nodule TECHNIQUE: Ultrasound evaluation of the thyroid was performed with real-time and static petty-scale imaging. COMPARISON: None. FINDINGS: RIGHT LOBE: The right lobe of the thyroid gland measures 5.0 x 1.8 x 1.7 cm. There is a heterogeneous echotexture. Nodule 1:8 x 7 x 6 mm mixed cystic and solid isoechoic wider than tall smoothly marginated nodule with no echogenic foci (TR 2) in the mid right lobe consistent with an adenoma. Nodule 2:21 x 10 x 14 mm cystic anechoic wider than tall smoothly marginated nodule with no echogenic foci (TR 1) of the mid right lobe consistent with a colloid cyst. LEFT LOBE: The left lobe of the thyroid gland measures 4.2 x 1.1 x 0.9 cm. There is a heterogeneous echotexture. Nodule 3:12 x 6 x 9 mm solid hypoechoic wider than tall smoothly marginated nodules with no echogenic foci (TR 4) in the anterior left lobe and follow-up ultrasound is recommended when near. Nodule 4:8 x 4 x 5 mm cystic anechoic wider than tall smoothly marginated nodule with no echogenic foci (TR 1) in the inferior left lobe consistent with a colloid cyst. ISTHMUS: The isthmus measures 2 mm thick. . The regional lymph nodes are normal. There is a 6.2 x 3.0 x 4.4 cm heterogeneous hypoechoic mass within the left side of the neck of uncertain etiology significance and correlation with CT of the neck with contrast is recommended. US/Thyroid IMPRESSION: Multinodular thyroid gland and follow-up ultrasound is recommended in one year. 6.2 cm heterogeneous mass in the left side of the neck and correlation with CT neck with contrast is recommended. Electronically Signed: Donnell Bowman MD at 8:55 EDT ,
== END | disposition home or self-care (01) ==
LOC: US 09:06
PROVIDERS: PCP Nurse Practitioner Family; Referring Provider Nurse Practitioner Family; Visit Provider Nurse Practitioner Family
DX: E04.1 Nontoxic single thyroid nodule (principal)
CPT/HCPCS: 76536

== ENCOUNTER → 2024-07-04 | Outpatient (CLI) | payer MEDICARE, SELFPAY ==
--- NOTE | 2024-07-04 07:14 | CT_ITS ---
STUDY: CT SOFT TISSUE NECK WITH CONTRAST REASON FOR EXAM: Female, 78 years old. 6.2 cm mass left neck seen on US thyroid RADIATION DOSAGE (If Supplied By Facility): CTDIvol = ( 17.10 ) mGy, DLP = ( 504.16 ) mGycm TECHNIQUE: The patient was scanned in a multi-detector CT scanner. High resolution transaxial imaging was performed following intravenous administration of IV 100mL Isovue-370. Sagittal and coronal images were reconstructed. Individualized dose optimization techniques were used for this CT. COMPARISON: Thyroid ultrasound dated June 12, 2024. CTA of the chest dated August 28, 2023 FINDINGS: Redemonstration of markedly enlarged multinodular multi goiter formation of the left lobe of the thyroid gland with much milder disease seen on the right. Persistent mild rightward displacement of the tracheal air column without narrowing or compromise due to mass effect from the enlarged left lobe of the thyroid gland which has substernal/superior mediastinal extension. The left lobe measures 8.02 x 3.59 x 4.93 cm and is unchanged since the August 28, 2023 study. No mass is beyond the capsule of the thyroid gland or invading the adjacent structures. This is consistent with multinodular goiter but targeted image guided biopsy or FNA or I-123 studies can be performed if there is concern for malignancy. The [abnormalities have been described since July 04, 2006 on the thyroid ultrasound study. There are no masses or abscess or cyst or suspicious lymphadenopathy in the remaining aspects of the neck. No destructive or acute bony process is seen. The lung apices are clear. Normal bilateral parotid glands. 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 Normal bilateral parapharyngeal spaces. Normal bilateral carotid spaces. Normal bilateral sublingual and submandibular glands and spaces. Normal visualized nasopharynx. Normal retropharyngeal space. Normal perivertebral space. Normal visualized bilateral faucial tonsils. The visualized tongue, tongue base and oropharynx are normal. The visualized cervical lymph nodes (levels I-) are within normal size limits, and maintain normal morphology. There is no demonstrated solid or cystic mass lesion. There is no abnormal contrast enhancement. Normal epiglottis, bilateral vallecula and hypopharynx. The pre-epiglottic and paraglottic adipose spaces are normal. Normal visualized bilateral piriform sinuses, aryepiglottic folds, vocal cords, and arytenoid-cricoid articulations. Normal subglottic trachea. Normal visualized pulmonary apices. Normal visualized paranasal sinuses. There is multilevel degenerative changes of the cervical spine. CT/Soft Tissue Neck WITH Contrast IMPRESSION: 1. Redemonstration of markedly enlarged multinodular multi goiter formation of the left lobe of the thyroid gland with much milder disease seen on the right. Persistent mild rightward displacement of the tracheal air column without narrowing or compromise due to mass effect from the enlarged left lobe of the thyroid gland which has substernal/superior mediastinal extension. 2. The left lobe measures 8.02 x 3.59 x 4.93 cm and is unchanged since the August 28, 2023 study. No mass is beyond the capsule of the thyroid gland or invading the adjacent structures. This is consistent with multinodular goiter but targeted image guided biopsy or FNA or I-123 studies can be performed if there is concern for malignancy. The [abnormalities have been described since July 04, 2006 on the thyroid ultrasound study. 3. There are no masses or abscess or cyst or suspicious lymphadenopathy in the remaining aspects of the neck. No destructive or acute bony process is seen. The lung apices are clear. Electronically Signed: Matt Murray MD at 10:06 EDT ,
[2024-07-04 07:47] LABS: CREATININE FINGERSTICK < 1.0 mg/dL (0.55-1.02); EGFR FINGERSTICK > 60.0000 mL/min (>60)
== END | disposition home or self-care (01) ==
LOC: CT 07:13
PROVIDERS: PCP Nurse Practitioner Family; Referring Provider Nurse Practitioner Family; Visit Provider Nurse Practitioner Family
DX: R22.1 Localized swelling, mass and lump, neck (principal)
CPT/HCPCS: 70491; Q9967

== ENCOUNTER → 2024-07-22 | Outpatient (CLI) | payer MEDICARE, SELFPAY ==
--- NOTE | 2024-07-22 11:42 | US_ITS ---
STUDY: THYROID ULTRASOUND REASON FOR EXAM: Female, 78 years old. Mass within left side of the neck -- Left substernal extention TECHNIQUE: Ultrasound evaluation of the thyroid was performed with real-time and static petty-scale imaging. COMPARISON: 06/12/2024 FINDINGS: RIGHT LOBE: The right lobe of the thyroid gland measures 4.5 x 1.8 x 2.2 cm. There is a heterogeneous echotexture. Nodule 1: Shrinking (7 x 4 x 5 mm from 8 x 7 x 6 mm) solid hypoechoic wider than tall smoothly marginated nodule with no echogenic foci (TR 4) in the lateral right lobe consistent with an adenoma. Nodule 2: Shrinking (19 x 8 x 12 mm from 21 x 10 x 14 mm) cystic anechoic wider than tall smooth marginated nodule with no echogenic foci (TR 1) in the mid right lobe consistent with a colloid cyst. LEFT LOBE: The left lobe of the thyroid gland measures 8.0 x 3.0 x 4.5 cm. There is a heterogeneous echotexture. Nodule 3: No change in the 12 x 6 x 9 mm solid hypoechoic wider than tall smoothly marginated nodule with no echogenic foci (TR 4) and anterior left lobe and follow-up ultrasound is recommended in 1 year. ISTHMUS: The isthmus measures 3 mm thick. . The regional lymph nodes are normal. No change in the 5.5 x 3.8 x 4.1 cm heterogeneous mixed cystic and solid nodule in the left side of the neck adjacent to the thyroid gland. US/Thyroid IMPRESSION: Continued multinodular thyroid gland and follow-up ultrasound is recommended in one year. Continued heterogeneous mass in the left side neck adjacent to the thyroid gland. Electronically Signed: Donnell Bowman MD at 9:24 EST ,
== END | disposition home or self-care (01) ==
LOC: US 11:42
PROVIDERS: PCP Nurse Practitioner Family; Referring Provider Surgery; Visit Provider Surgery
DX: E89.0 Postprocedural hypothyroidism (principal); E04.1 Nontoxic single thyroid nodule
CPT/HCPCS: 76536

== ENCOUNTER → 2024-11-11 | Outpatient (CLI) | payer MEDICARE, SELFPAY ==
--- NOTE | 2024-11-11 14:02 | BI_ITS ---
PROCEDURE: SCRN MAMM (CAD)W/TYLOR BILAT REASON FOR EXAM: F, Age 79 y/o, grandmother with breast cancer. History of prior bilateral breast reduction surgery. TECHNIQUE: Bilateral screening digital breast tomosynthesis with 2D and 3D images. Computer aided detection. COMPARISON: Prior exam(s) dating back to October 31, 2023.. FINDINGS: The breasts are almost entirely fatty. Stable small bilateral axillary lymph nodes. Stable examination. Stable calcified fibroadenoma in the left retro areolar region. No suspicious masses, areas of developing architectural distortion, or suspicious calcifications. BI/SCRN MAMM (CAD)W/TYLOR BILAT IMPRESSION: BI-RADS 2: BENIGN. RECOMMEND ANNUAL MAMMOGRAPHIC SCREENING. Follow-up code: Routine Follow-up The patient will be notified of the results by letter. Reading Location: [id number]
== END | disposition home or self-care (01) ==
LOC: OPBI 14:00
PROVIDERS: PCP Nurse Practitioner Family; Referring Provider Nurse Practitioner Family; Visit Provider Nurse Practitioner Family
DX: Z12.31 Encounter for screening mammogram for malignant neoplasm of breast (principal)
CPT/HCPCS: 77063; 77067

== ENCOUNTER → 2024-12-19 | Outpatient (CLI) | payer MEDICARE, SELFPAY ==
--- NOTE | 2024-12-19 08:51 | BD_ITS ---
PROCEDURE: DEXA BONE DENSITY/APPEND SKEL 12/19/2024 REASON FOR EXAM: None provided. TECHNIQUE: DXA scan of the lumbar spine and left forearm, using Hologic Horizon W. REFERENCE LINKS: ISCD Adult Positions COMPARISON: Measurements obtained 09/13/2017 and 10/19/2022 are retained by the imaging unit for comparison purposes however the images themselves are not available for comparison. FINDINGS: LUMBAR SPINE: Bone mineral denisty, L1-L3: 0.853 g/cm???, probably increased by bony hypertrophic degenerative changes. T-score: -1.5 LEFT FOREARM, 1/3 radius: Bone mineral denisty: 0.598 g/cm??? T-score: -1.6 FRAX*: Not provided. *FRAX is a trademark of the [employer]'s [employer] for Metabolic Bone Disease, World Health Organization (WHO) Collaborating [employer]. 1-Major Osteoporotic Fracture: Clinical Spine, Forearm, Hip or Shoulder. 2-The 10-year probability of fracture may be lower than reported if the patient has received treatment. The National Osteoporosis Foundation recommends that medical therapy be considered in postmenopausal women and men, age 50 and older, with a: * hip or vertebral fracture * T-score less than or equal to -2.5 in the spine or hip * T-score between -1.0 and -2.5 and FRAX equal to or less than 3 percent for hip fracture or equal to or less than 20 percent for major osteoporotic fracture. World Health Organization criteria for BMD interpretation classify patients as Normal (T-score at or above -1.0), Osteopenic (T-score between -1.0 and -2.5), or Osteoporotic (T-score at or below -2.5). BD/Dexa Bone Density/Append Skel IMPRESSION: 1. Osteopenia. 2. Since 10/19/2022 there has been no significant change in the bone mineral de nsity of the LEFT forearm. Since 09/13/2017 there has been a 5.6% increase in the bone mineral density of the lumbar spine, howev er this could be related to degenerative changes. 3. Additional description as above. Reading Location: [id number]
== END | disposition home or self-care (01) ==
LOC: OPBD 08:50
PROVIDERS: PCP Nurse Practitioner Family; Referring Provider Nurse Practitioner Family; Visit Provider Nurse Practitioner Family
DX: M81.0 Age-related osteoporosis without current pathological fracture (principal)
CPT/HCPCS: 77081

== ENCOUNTER → 2025-02-05 | Outpatient (CLI) | payer MEDICARE, SELFPAY ==
--- NOTE | 2025-02-05 11:42 | US_ITS ---
PROCEDURE: THYROID 02/05/2025 REASON FOR EXAM: THYROID NODULE TECHNIQUE: High-frequency thyroid ultrasound, including grayscale and color-flow images. REFERENCE LINKS: TI-RADS Chart: [email or web address] TI-RADS Calculator Tool with Reference Images: [email or web address] COMPARISON: July 22, 2024. FINDINGS: Right thyroid lobe size: 4.9 cm 1.9 cm 1.6 cm Left thyroid lobe size: 8 cm x 5.4 cm 3.9 cm Isthmus: 0.36 cm Background parenchymal echotexture is heterogeneous Nodules: Stable 1 cm x 0.5 cm 0.3 cm hypoechoic nodule in the midportion of the right lobe. Stable 1.8 cm 1.5 cm 0.8 cm cystic nodule with debris within it. Stable 7 mm x 6 mm x 6 mm hypoechoic nodule in the lower pole. Stable dominant complex nodule in the lower pole of the left lobe measuring 3.9 cm 4.4 cm 3.5 cm. Stable heterogeneous hypoechoic nodule measuring 1.7 cm 1.9 cm 1.7 cm. US/Thyroid IMPRESSION: Stable examination. Yearly follow-up recommended. RECOMMENDATION: Based on most suspicious nodule. Nodule size = largest diameter Only evaluate nodule if =>5 mm. Growth > 20% in 2 dimensions = worsening. Follow up to 4 nodules. Recommend biopsy for no more than 2 nodules. Reading Location: [place] [id number]
== END | disposition home or self-care (01) ==
LOC: US 11:37
PROVIDERS: PCP Nurse Practitioner Family; Referring Provider Surgery; Visit Provider Surgery
DX: E04.1 Nontoxic single thyroid nodule (principal)
CPT/HCPCS: 76536

== ENCOUNTER → 2025-07-16 | Outpatient (CLI) | payer MEDICARE, SELFPAY | END | disposition home or self-care (01) | LOC: PSN 11:48 | PROVIDERS: PCP Internal Medicine; Referring Provider Student in an Organized Health Care Education/Training Program; Visit Provider Student in an Organized Health Care Education/Training Program | DX: R00.2 Palpitations (principal) | CPT/HCPCS: 93225; 93226 ==

== ENCOUNTER 2025-08-12 15:30 | Inpatient (IN) | payer MEDICARE, SELFPAY ==
[2025-08-12 15:32] VITALS: BP 134/117; PULSE 112; RESP 20; TEMP 36.7; O2SAT 94; BMI 38.7
--- NOTE | 2025-08-12 15:57 | EX.ED.GENINJ ---
HPI History of Present Illness Chief Complaint: Shortness of Breath Informant: patient Narrative Narrative: 79-year-old female presenting to the emergency room with a chief complaint of rib pain. Patient sustained a mechanical fall when she tripped while negotiating a berm. She states that she twisted falling onto the right posterior ribs. States that she went home and noticed that she just cannot take a deep breath and is concerned she may have a pneumothorax. She is on apixaban for atrial fibrillation. She denies any known lung issues. She does not wear home oxygen. She notes that her arms and her legs feel normal. She denies any abdominal pain. She specifically denies any spinal pain and any injury to her head. She states that she knows that she did not hit her head. [facility] Medical History Thyroid nodule Wears glasses Cluster headache Vertigo History of pain when walking History of echocardiogram History of stress test Hypertension Cardiology follow-up encounter History of irregular heartbeat Essential hypertension Cancer Alcohol use Thyroid disease Arthritis Back pain Gastric reflux History of IBS Former smoker Shortness of breath on exertion History of skin cancer Arthritis Hyperlipidemia Paroxysmal atrial fibrillation Home Medications ?Medication ?Instructions ?Recorded ?Last Taken ?Type calcium 600 mg (as 1 cap PO DAILY 03/16/22 Unknown History carbonate)-vitamin D3 10 mcg (400 unit) capsule cranberry 500 mg capsule 500 mg PO DAILY 03/16/22 Unknown History lactobacillus combination no.4 3 3,000 mmu cells PO DAILY 03/16/22 Unknown History billion cell capsule (Probiotic) multivitamin 1 tab PO DAILY 03/16/22 Unknown History pitavastatin calcium 1 mg tablet 1 mg PO DAILY 03/16/22 Unknown History (Livalo) apixaban 5 mg tablet (Eliquis) 5 mg PO BID #180 tabs 11/27/24 Unknown Rx amlodipine 5 mg tablet 5 mg PO DAILY #90 tabs 12/16/24 Unknown Rx metoprolol succinate 50 mg 50 mg PO DAILY #90 tabs 04/09/25 Unknown Rx tablet,extended release 24 hr Allergy/AdvReac Type Severity Reaction Status Date / Time Penicillins Allergy Unknown Verified 08/12/25 15:35 Family History Father aortic aneurysm Heart disease Sister Seizures Brother coronary stent Hearing loss Heart disease Diabetes Mother Myocardial infarction Anesthesia complication Hearing loss Heart disease Surgical History History of cardiac catheterization History of hysteroscopy Hx of right cataract extraction Hx of left cataract extraction History of open reduction and internal fixation (ORIF) procedure Hx laparoscopic cholecystectomy History of bilateral breast reduction surgery History of left heart catheterization (10/11/21) H/O bilateral hip replacements H/O partial thyroidectomy Social History household members: none current occupational status: retired Smoking Status: Former smoker alcohol intake: current alcohol intake frequency: a few times a month Alcohol type: wine substance use type: does not use caffeine: Yes Type: carbonated beverages what type of physical activity do you participate in: walking frequency: 1-2 times per week duration: 15-30 minutes/day seatbelt use: always do you feel safe at home: Yes ROS ROS ED Constitutional Constitutional ED: Denies chills, fever(s) or weight loss Eyes Eyes: Denies change in vision or diplopia ENT ENT ED: Denies ear pain, rhinorrhea or sore throat Cardiovascular Cardiovascular: Reports chest pain; Denies orthopnea, palpitations or racing heartbeat Respiratory/Chest Respiratory/Chest: Reports dyspnea; Denies cough or orthopnea Gastrointestinal Gastrointestinal: Denies abdominal pain, diarrhea, nausea or vomiting Genitourinary Genitourinary ED: Denies dysuria, hematuria or urinary frequency Musculoskeletal Musculoskeletal: Denies arthralgias or myalgias Integumentary Denies abscess or rash Neurologic Neurologic: Denies headache(s) or weakness Psychiatric Psychiatric: Denies anxiety, depression, suicidal ideation or suicidal thoughts Endocrine Endocrinology: Denies polydipsia, polyphagia or polyuria Allergic/Immunologic Allergic/Immunologic ED: Denies mouth swelling, tongue swelling or urticaria EXAM Physical Exam Const Vital Signs: 08/12/25 15:32 08/12/25 15:58 08/12/25 15:59 Temperature 98.1 F Temperature Source Oral Pulse Rate 112 H Respiratory Rate 20 H Respiratory Effort Short of Breath Short of Breath Blood Pressure 134/117 H Blood Pressure Mean 122 Pulse Ox 94 93 Oxygen Delivery Method Room Air Room Air Oxygen Flow Rate (L/min) 08/12/25 16:17 08/12/25 17:31 Temperature Temperature Source Pulse Rate 80 Respiratory Rate 12 Respiratory Effort Blood Pressure 125/65 H Blood Pressure Mean 85 Pulse Ox 100 100 Oxygen Delivery Method Nasal Cannula Nasal Cannula Oxygen Flow Rate (L/min) 3 3 Positive well nourished, well developed and obese General Appearance ED: well developed and NAD Nutritional Appearance: obese HEENT Reports normocephalic, head/scalp atraumatic and moist mucous membranes Eyes PERRL and EOMs intact bilaterally Neck no lymphadenopathy, supple and no JVD Chest Wall Chest Narrative: Patient has tenderness to palpation over the upper and mid anterior posterior ribs. No subcutaneous emphysema or crepitance. Resp normal respiratory effort and clear to auscultation bilaterally Cardio no murmurs Rhythm: abnormal rhythm irregularly irregular GI normal to inspection, nondistended, normoactive bowel sounds and non-tender Palpation: soft Back/Spine no CVA tenderness and normal ROM Extremity normal to inspection General Extremety ED: Negative for edema General Extremity: Negative for edema Neuro oriented x3 and CN's II-XII intact bilaterally Sensorium / Orientation: alert Motor Exam: strength 5/5 throughout Psych mental status grossly normal Mood & Affect: Negative for depressed or tearful Skin no rashes or lesions noted Skin Narrative: 3 mm abrasion to the anterior right knee MDM MDM MDM Narrative Medical decision making narrative: Differential diagnosis includes rib fracture rib contusion thoracic myofascial strain pneumothorax hemothorax pulmonary contusion Basic blood work was obtained glucose 127 normal white count hemoglobin 15.6. Normal LFTs. Normal creatinine. CT of the chest with contrast was obtained. Nondisplaced fracture of ribs 5 and 6 is noted as well as a small pneumothorax. Patient was placed on nasal cannula oxygen. I spoke with on-call surgery Dr. Goyal. It is felt that we can reasonably observe her in the hospital on oxygen. Patient received a dose of oxycodone as well as Toradol and she states that her pain has significantly improved and she is able to breathe much easier. At this point we are not placing a chest tube, pigtail catheter or other invasive device and she is stable and this is a small pneumothorax. History & Record Review Discussion w/independent historian: Patient Lab Data Attestation: I reviewed the patient's lab results. Labs: Laboratory Results - last 24 hr 08/12/25 15:49 WBC 9.4 RBC 4.87 Hgb 15.6 H Hct 45.6 MCV 93.6 MCH 32.0 MCHC 34.2 RDW Std Deviation 47.0 H RDW Coeff of Jarrod 13.7 Plt Count 272 MPV 10.5 Immature Gran % (Auto) 0.700 Neut % (Auto) 67.5 Lymph % (Auto) 18.7 L [place] % (Auto) 11.9 H Eos % (Auto) 0.7 Baso % (Auto) 0.5 Absolute Neuts (auto) 6.3 Absolute Lymphs (auto) 1.75 Nucleated RBC % 0 Sodium 141 Potassium 4.0 Chloride 102 Carbon Dioxide 25.3 Anion Gap 13 BUN 24 H Creatinine 1.07 Estim Creat Clear Calc 51.48 Est GFR (MDRD) Non-Af 53 L BUN/Creatinine Ratio 22.1 H Glucose 127 H Calcium 9.5 Total Bilirubin 0.73 AST 29 ALT 23 Alkaline Phosphatase 90 Total Protein 7.2 Albumin 4.1 Globulin 3.2 Albumin/Globulin Ratio 1.3 Radiography Diagnostic Testing: Clinical Impression(s) from Imaging Studies Chest CT 08/12/25 16:05 IMPRESSION: 1. Acute nondisplaced fractures of the right lateral 5th and 6th ribs. 2. Small right pneumothorax and trace pleural fluid/hemothorax. 3. Enlarged heterogeneous multinodular thyroid gland. 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 5. Multiple hepatic cysts. Reading Location: [facility] Management Discussion w/another healthcare provider: Hospitalist (Dr Carmona) and Technology Administrator (Dr Goyal) Discharge Plan Triage Chief Complaint: Shortness of Breath Other Complaint: Fall ED Provider: Slade Lee Dx/Rx/DC Orders Clinical Impression: Fall, Fracture of rib, Pneumothorax, Anticoagulated Primary Care Provider: Yuridia Kate
[2025-08-12 15:58] VITALS: O2SAT 93
--- NOTE | 2025-08-12 16:05 | CT_ITS ---
PROCEDURE: CT CHEST WITH CONTRAST 08/12/2025 REASON FOR EXAM: RIGHT CHEST TRAUMA TECHNIQUE: Procedure Code: CTCHW Modality: CT Procedure: CHEST WITH CONTRAST Coronal and Sagittal reconstruction series were provided. CONTRAST: Isovue-300 VOLUME: 88 mL One or more dose reduction techniques were used (e.g., Automated exposure control, adjustment of the mA and/or kV according to patient size, use of iterative reconstruction technique). RADIATION DOSE SUMMARY: DLP: 830.22 mGycm COMPARISON: None. FINDINGS: LUNGS/PLEURA: Small right-sided pneumothorax. No lobar collapse. Trace right pleural fluid/hemothorax. Mild focal pulmonary contusional changes at the lateral aspect of the right middle lobe. Mild bibasilar dependent atelectasis. Clear central airways. MEDIASTINUM: No mediastinal hematoma or lymphadenopathy. Enlarged heterogeneous multinodular thyroid with substernal extension of the enlarged left thyroid lobe to the superior mediastinum. HEART: Normal in size. No pericardial effusion. Scant coronary artery calcifications. THORACIC AORTA: Normal in course and caliber. Mild atherosclerotic disease. Fusiform aneurysm of the celiac artery measuring up to 1.4 cm diameter. UPPER ABDOMEN: Multiple scattered prominent lobulated benign hepatic cysts of varying sizes. Status post cholecystectomy. BONES: Acute nondisplaced fractures of the right lateral 5th and 6th ribs. No additional acute fracture or dislocation visualized. Mild multilevel degenerative changes of the spine. CT/Chest WITH Contrast IMPRESSION: 1. Acute nondisplaced fractures of the right lateral 5th and 6th ribs. 2. Small right pneumothorax and trace pleural fluid/hemothorax. 3. Enlarged heterogeneous multinodular thyroid gland. 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 5. Multiple hepatic cysts. Reading Location: [id number]
[2025-08-12 16:17] VITALS: O2SAT 100
[2025-08-12 16:26] LABS: Hematocrit 45.6 % (37-47); Hemoglobin 15.6 g/dL (12.0-15.0); Immature Granulocytes Count 0.070 X10^3/uL (0.0-0.0); Mean Corp Hgb Conc 34.2 g/dL (32-36); Mean Corpuscular Volume 93.6 fL (81-99); Mean Platelet Vol. 10.5 fl (6.2-12.0); NRBC Flagged by Analyzer 0 % (0-5); Platelet Count 272 K/mm3 (150-450); RBC Distribution Width CV 13.7 % (11.6-14.6); RBC Distribution Width SD 47.0 fl (35.1-43.9); Red Blood Count 4.87 M/mm3 (4.2-5.4); White Blood Count 9.4 K/mm3 (4.4-11.0)
[2025-08-12 16:46] LABS: AST(SGOT) 29 U/L (<=31); Alanine Aminotransfer ALT/SGPT 23 U/L (<=34); Albumin, Serum 4.1 g/dL (3.4-4.8); Alkaline Phosphatase 90 U/L (35-104); Anion Gap 13 (5-15); BUN 24 mg/dL (4-19); BUN/Creat Ratio 22.1 RATIO (10-20); Calcium,Total 9.5 mg/dL (7.6-11.0); Carbon Dioxide 25.3 mmol/L (21.0-32.0); Chloride 102 mmol/L (98-108); Estimated Creatinine Clearance 51.48 ml/min (50-250); Globulin 3.2 g/dL (2.2-4.2); Glucose 127 mg/dL (70-99); Potassium 4.0 mmol/L (3.3-5.1)
[2025-08-12 17:31] VITALS: BP 125/65; PULSE 80; RESP 12; O2SAT 100
[2025-08-12 18:27] VITALS: BP 125/65; PULSE 84; RESP 18; TEMP 36.6; O2SAT 100
[2025-08-12 19:48] VITALS: BMI 38.3
[2025-08-12 19:53] VITALS: BP 132/51; PULSE 76; RESP 19; TEMP 36.4; O2SAT 96
--- OUTSIDE RECORDS SUMMARY | 2025-08-12 23:22 | XMS RPT_ITS | CCD ---
Author Organization [facility] CliniSyne Care Team Providers Care Meter Reader Chief Name Role Phone Lakisha Spears E Unavailable Demetri Tanner Unavailable Slarb, Krista Unavailable Unavailable Preston Vance Unavailable Unavailable Maria Luisa Angel Unavailable Unavailable Aaliyah Goel Unavailable Unavailable Unavailable Unavailable CharleneaLakisha E Unavailable Demetri Tanner Unavailable Slarb, Krista Unavailable Unavailable Maria Luisa Angel Unavailable Unavailable Preston Vance Unavailable Unavailable Aaliyah Goel Unavailable Unavailable Unavailable Unavailable Orquidea Page Unavailable Maria Luisa Villegas Unavailable Unavailable Preston Vance Unavailable Unavailable Larissa Griffiths Unavailable Preston Kang Unavailable Unavailable MOIRA Crowell Unavailable Unavailable Olga Kruse Unavailable Unavailable Unavailable Unavailable Itz Marcelino Unavailable Ciesa LYNDALakisha E Unavailable Dr. Itz Marcelino Unavailable Orquidea Page Unavailable Dr. Demetri Tanner Unavailable Slarb SUEDING MACHINE OPERATOR, Krista Unavailable Unavailable Preston Kang LPN Unavailable Unavailable Maria Luisa Angel Unavailable Unavailable Bakari SUEDING MACHINE OPERATOR, Maria Luisa Unavailable Unavailable Aaliyah Goel Unavailable Unavailable Unavailable Unavailable Olga Kruse LPN Unavailable Unavailable Carmen, COVER MAT MACHINE OPERATOR Unavailable Ciesa Lakisha Unavailable Aye DO Larissa Unavailable Gravius BACKFILLER, Meena Unavailable Unavailable Ciesa FLIGHT STEWARD, FLIGHT STEWARD-C Lakisha Primary Care Provider Ciesa FLIGHT STEWARD, FLIGHT STEWARD-C Lakisha Referring Provider [phone] Dr. Gerald Bell Attending Provider [phone] TIARRA Rivera Attending Provider TIARRA Villatoro Attending Provider Dr. Uzair Palacio Attending Provider Ciesa FLIGHT STEWARD, FLIGHT STEWARD-C Lakisha Primary Care Provider Ciesa FLIGHT STEWARD, FLIGHT STEWARD-C Lakisha Referring Provider [phone] Ciesa, Lakisha Unavailable Oliverio YARD CLERK, Dian Unavailable [phone] Oliverio YARD CLERK, Dian Unavailable [phone] Ciesa, Lakisha Unavailable Larissa Griffiths DO Unavailable [phone] Oliverio YARD CLERK, Dian Attending Unavailable Oliverio YARD CLERK, Dian Referring Unavailable Oliverio YARD CLERK, Dian Consulting Unavailable Care Physician, No Primary Primary Care Provider Unavailable Care Physician, No Primary Referring Provider Un available TIARRA Villatoro Attending Provider Tri Santos MA Unavailable Unavailable Care Physician, No Primary Primary Care Provider Unavailable Dr. Kp Lopez Attending Provider [phone] Care Physician, No Primary Primary Care Provider Unavailable Dr. Kp Lopez Attending Provider [phone] Oliverio, FLIGHT STEWARD-C Dian Primary Care Provider [phone] Oliverio, FLIGHT STEWARD-C Dian Referring Provider TIARRA Villatoro Attending Provider Dr. Kp Lopez Other Provider Dr. Kp Lopez Referring Provider [phone] Mariusz Harris Attending Provider Dr. Kp Lopez Attending Provider [phone] Kp Lopez Referring Provider [phone] Care Physician, No Primary Referring Provider Un available Oliverio FLIGHT STEWARD-C, Dian Primary Care Provider Oliverio FLIGHT STEWARD-C, Dian Referring Provider Dr. Bro Deleon MD Attending Provider Oliverio FLIGHT STEWARD-C, Dian Attending Provider Oliverio FLIGHT STEWARD-C, Dian Primary Care Provider Oliverio FLIGHT STEWARD-C, Dian Referring Provider Abdias Salazar Attending Provider Dr. Bro Deleon MD Attending Provider Dr. Bro Deleon MD Referring Provider Oliverio FLIGHT STEWARD-C, Dian Primary Care Physician Oliverio FLIGHT STEWARD-C, Dian Referring Provider Abdias Salazar Attending Physician Yuridia Kate Primary Care Unavailable Demiter, Abdias Attending Unavailable Demiter, Abdias Referring Unavailable Oliverio, Dian Referring Unavailable Demiter, Abdias Attending Unavailable Oliverio, Dian Primary Care Unavailable Oliverio, Dian Referring Unavailable Oliverio, Dian Primary Care Unavailable Bro Deleon Attending Unavailable Johnyiter, Abdias Attending Unavailable Oliverio, Dian Referring Unavailable Oliverio, Dian Primary Care Unavailable Oliverio, Dian Referring Unavailable Oliverio, Dian Primary Care Unavailable Bro Deleon Attending Unavailable Oliverio, Dian Primary Care Unavailable Bro Deleon Attending Unavailable Bro Deleon Referring Unavailable Oliverio, Dian Attending Unavailable Oliverio, Dian Referring Unavailable Oliverio, Dian Primary Care Unavailable Oliverio, Dian Referring Unavailable Oliverio, Dian Primary Care Unavailable Oliverio, Dian Attending Unavailable Oliverio, Dian Primary Care Unavailable Bro Deleon Attending Unavailable Bro Deleon Referring Unavailable Allergies Allergy Classification Reported Allergen(s) Allergy Type Date of Onset Reaction(s) Facility Penicillins (antibiotic) (3 sources) Penicillins; Translations: [Penicillins] Drug Allergy [facility] Work Phone: (20 sources) Penicillins; Translations: [Penicillins] allergy to substance 2 Unknown [facility] Work Phone: Comment on above: edema (18 sources) atorvastatin Drug Allergy 2 Unknown [facility] (5 sources) ezetimibe Drug Allergy 2 Unknown [facility] (18 sources) Pravastatin Drug Allergy 2 Unknown [facility] (18 sources) Simvastatin Drug Allergy 2 Unknown [facility] (1 source) atorvastatin Drug Allergy 5 [facility] Repository (1 source) Pravastatin Drug Allergy 5 [facility] Rep[facility] (1 source) Simvastatin Drug Allergy 5 [facility] Repository NEGATED: Highlighted row has been ruled out!Unclassified (1 source) Allergy to drug (finding) 8 [facility]; [facility] Work Phone: NEGATED: Highlighted row has been ruled out!Unclassified (1 source) Allergy to drug (finding) 8 [facility]; [facility] Work Phone: NEGATED: Highlighted row has been ruled out!Unclassified (1 source) Allergy to drug (finding) 8 [facility]; [facility] Work Phone: NEGATED: Highlighted row has been ruled out! (1 source) drug allergy 8 [facility] Work Phone: NEGATED: Highlighted row has been ruled out! (1 source) Allergy to drug (finding) 8 [facility]; [facility] Work Phone: NEGATED: Highlighted row has been ruled out! (1 source) Allergy to drug (finding) 8 [facility]; [facility] Work Phone: NEGATED: Highlighted row has been ruled out! (1 source) Allergy to drug (finding) 8 [facility]; [facility] Work Phone: NEGATED: Highlighted row has been ruled out! (1 source) Allergy to drug (finding) 8 [facility]; [facility] Work Phone: NEGATED: Highlighted row has been ruled out! (1 source) Allergy to drug (finding) 8 [facility]; [facility] Work Phone: NEGATED: Highlighted row has been ruled out! (1 source) Allergy to drug (finding) 8 [facility]; [facility] Work Phone: NEGATED: Highlighted row has been ruled out! (1 source) Allergy to drug (finding) 8 [facility]; [facility] Work Phone: NEGATED: Highlighted row has been ruled out! (1 source) Allergy to drug (finding) 8 [facility]; [facility] Work Phone: NEGATED: Highlighted row has been ruled out! (1 source) Allergy to drug (finding) 8 [facility]; [facility] Work Phone: NEGATED: Highlighted row has been ruled out! (1 source) Allergy to drug (finding) 8 [facility]; [facility] Work Phone: NEGATED: Highlighted row has been ruled out! (1 source) Allergy to drug (finding) 8 [facility]; [facility] Work Phone: NEGATED: Highlighted row has been ruled out! (1 source) Allergy to drug (finding) 8 [facility]; [facility] Work Phone: NEGATED: Highlighted row has been ruled out! (1 source) Allergy to drug (finding) 8 [facility]; [facility] Work Phone: NEGATED: Highlighted row has been ruled out! (1 source) Allergy to drug (finding) 8 [facility]; [facility] Work Phone: NEGATED: Highlighted row has been ruled out! (1 source) Allergy to drug (finding) 8 [facility]; [facility] Work Phone: NEGATED: Highlighted row has been ruled out! (1 source) Allergy to drug (finding) 8 [facility]; [facility] Work Phone: NEGATED: Highlighted row has been ruled out! (1 source) Allergy to drug (finding) 8 [facility]; [facility] Work Phone: NEGATED: Highlighted row has been ruled out! (1 source) Allergy to drug (finding) 8 [facility]; [facility] Work Phone: NEGATED: Highlighted row has been ruled out! (1 source) Allergy to drug (finding) 8 [facility]; [facility] Work Phone: NEGATED: Highlighted row has been ruled out! (1 source) Allergy to drug (finding) 8 [facility]; [facility] Work Phone: NEGATED: Highlighted row has been ruled out! (1 source) Allergy to drug (finding) 8 [facility]; [facility] Work Phone: NEGATED: Highlighted row has been ruled out! (1 source) Allergy to drug (finding) 8 [facility]; [facility] Work Phone: Medications Current Medications Medication Drug Class(es) Dates Sig (Normalized) Sig (Original) calcium carbonate 1500 mg / cholecalciferol 0.01 mg oral capsule (15 sources) Vitamin D Start: 03-16-2022 Cranberry (20 sources) Non-Standardized Food Allergenic Extract, Non-Standardized Plant Allergenic Extract Start: 03-16-2022 take 1 capsule by mouth once daily at mealtime Start: 03-16-2022 take 1 capsule by [facility] once daily at mealtime Cranberry 500 mg Capsule Active 500 mg PO DAILY March 16, 2022 12:00am administer with meals Start: 03-16-2022 take 500 mg by mouth once daily at mealtime Cranberry Active 500 MG PO DAILY March 15, 2022 11:00pm administer with meals Start: 03-16-2022 take 500 mg by mouth once daily at mealtime Cranberry Active 500 MG PO DAILY March 16, 2022 12:00am administer with meals Start: 09-28-2017 End: 01-27-2022 take 500 mg by mouth once daily Cranberry Extract Disc ontinued 500 MG PO daily September 28, 2017 11:32am January 27, 2022 10:40am Start: 09-28-2017 End: 01-27-2022 take 1 tablet by mouth once daily Cranberry Extract 500 mg tablet Discontinued 500 mg PO daily September 28, 2017 1:00am January 27, 2022 10:40am Start: 09-28-2017 End: 01-27-2022 take 500 mg by mouth once daily Cranberry Extract Disc ontinued 500 MG PO daily September 28, 2017 12:00am January 27, 2022 9:40am Start: 09-28-2017 End: 01-27-2022 take 500 mg by mouth once daily Cranberry Extract Disc ontinued 500 MG PO daily September 28, 2017 1:00am January 27, 2022 10:40am take 1 mg by mouth once daily Cr anberry 125 MG Oral Tablet daily (125 MG) Active cyclobenzaprine hydrochlorid e 10 mg oral tablet (2 sources) Muscle Relaxant Start: 06-23-2023 Start: 06-23-2023 fluticasone propionate 0.05 mg/actuat metered dose nasal spray (3 sources) Corticosteroid Start: 10-31-2021 take 1 spray(s) nasal route once daily Fluticasone Propionate (Flonase Allergy Relief) 50 mcg/actuation spray,suspension Active 1 SPRAY INTRANASAL DAILY October 31, 2021 12:16pm administer into each nostril 24 hr isosorbide mononitrate 30 mg extended release oral tablet (20 sources) Nitrate Vasodilator Start: 01-27-2022 take 30 mg by mouth once daily Isosorbide Mononitrate Active 30 MG PO DAILY January 27, 2022 10:39am Start: 09-30-2021 End: 10-11-2021 take 1 tablet by mouth once daily, then take 1 tablet by mouth every twenty-four hours Isosorbide Mononitrate 30 mg tablet extended release 24 hr Discontinued 30 mg PO DAILY 30 September 30, 2021 1:00am October 11, 2021 11:07am On Hold: Severe Headache Lactobacillus Combination No .4 (Probiotic) 3 billion cell Capsule (15 sources) Start: 03-16-2022 take 3 capsules by m outh once daily Start: 03-16-2022 take 3 capsules by m outh once daily Lactobacillus Combination No.4 (Probiotic) 3 billion cell Capsule Active 3000 NMA PO DAILY March 16, 2022 12:00am administer with a meal Start: 03-16-2022 take 3 capsules by m outh once daily Lactobacillus Combination No.4 (Probiotic) 3 billion cell Capsule Active 3000 MMU CELLS PO DAILY March 15, 2022 11:00pm administer with a meal Start: 03-16-2022 take 3 capsules by m outh once daily Lactobacillus Combination No.4 (Probiotic) 3 billion cell Capsule Active 3000 MMU CELLS PO DAILY March 16, 2022 12:00am administer with a meal 24 hr metoprolol succinate 50 mg extended release oral tablet (20 sources) beta-Adrenergic Chanda Start: 10-22-2021 End: 04-09-2025 take 1 tablet by mouth once daily Start: 10-05-2016 End: 10-11-2021 take 1 tablet by mouth once daily Metoprolol Succinate 50 MG tablet Discontinued 50 mg PO DAILY October 13, 2017 11:20am October 11, 2021 11:06am Comment on above: Mail order. Multivitamin (Multiple Vitam in) Tablet (15 sources) Start: 03-16-2022 Start: 03-16-2022 Multivitamin ( Multiple Vitamin) Tablet Active 1 {tbl} PO DAILY March 16, 2022 12:00am Start: 03-16-2022 take 1 tablet by michael th once daily Multivitamin (Multiple Vitamin) Tablet Active 1 TABLET PO DAILY March 15, 2022 11:00pm Start: 03-16-2022 take 1 tablet by michael th once daily Multivitamin (Multiple Vitamin) Tablet Active 1 TABLET PO DAILY March 16, 2022 12:00am pitavastatin calcium 1 mg oral tablet (20 sources) HMG-CoA Reductase Inhibitor Start: 03-16-2022 take 1 tablet by mouth once daily Start: 10-05-2016 End: 01-27-2022 take 1 tablet by mouth once daily Pitavastatin Calcium (Livalo) 1 mg tablet Discontinued 1 mg PO DAILY May 13, 2019 12:00am January 27, 2022 10:40am Comment on above: unable to take stati n zetia, lipitor Mail order. Completed/Discontinued Medications Medication Drug Class(es) Dates Sig (Normalized) Sig (Original) acetaminophen 325 mg / HYDROcodone bitartrate 5 mg oral tablet (20 sources) Opioid Agonist Start: 06-24-2023 End: 08-30-2023 Hydrocodone-Acetami nophen 5-325 mg tablet Discontinued 1 {tbl} PO EVERY 6 HOURS NEEDED as needed for Pain 12 June 24, 2023 August 30, 2023 12:28pm Acute abdominal pain Unspecified abdominal pain Start: 06-24-2023 End: 08-30-2023 take 1 tablet by mouth every six hours as needed Hydrocodone-Acetaminophen Discontinued 1 TABLET PO EVERY 6 HOURS NEEDED 12 June 24, 2023 August 30, 2023 11:28am Start: 12-22-2011 End: 06-24-2013 Start: 12-22-2011 End: 06-24-2013 take 1-2 tablets by mouth once daily as needed VICODIN, 5-500MG (Oral Tablet) 1-2 Table t three times daily as needed for 0 days Quantity: 60 {Tablet} Refills: 2 Ordered: 22-Dec-2011 MOIRA Crowell LPN Start : 22-Dec-2011 End : 24-Jun-2013 Discontinued Comments: Medication taken as needed. This order discontinued per [facility]. Comment on above: Medication taken as needed. This order discontinued per [facility]. Adults 50 Plus (13 sources) alendronic acid 70 mg oral tablet (20 sources) Bisphosphonate Start: 08-30-20 End: 08-30-20 Comment on above: headache, makes feel werid all over amLODIPine 5 mg oral tablet (20 sources) Dihydropyridine Calcium Channel Chanda Start: 01-29-20 End: 12-17-19 take 1 tablet by mouth once daily Amlodipine 5 mg tablet Discontinued 5 mg PO DAILY 90 November 30, 2023 12:47pm December 16, 2024 1:30pm apixaban 5 mg oral tablet (20 sources) Factor Xa Inhibitor Start: 08-30-20 End: 11-28-19 25 take 1 tablet by mouth twice daily Apixaban (Eliquis) 5 mg tablet Discontinued 5 mg PO TWICE A DAY 180 November 02, 2023 11:01am November 27, 2024 9:15am ascorbic acid 60 mg / beta carotene 5000 unt / copper sulfate 40 mg / dl-alpha tocopheryl acetate 30 unt / sodium selenite 0.04 mg / zinc oxide 40 mg oral tablet (20 sources) Vitamin C aspirin 325 mg oral tablet (20 sources) Platelet Aggregation Inhibitor, Nonsteroidal Anti-inflammatory Drug Start: 06-24-20 13 End: 02-01-20 take 1 tablet by mouth once daily Aspirin 325 MG tablet Discontinued 325 mg PO DAILY@0800 October 05, 2016 1:00am October 11, 2021 11:06am atorvastatin 20 mg oral tablet (20 sources) HMG-CoA Reductase Inhibitor Start: 12-19-19 End: 01-10-20 Comment on above: Mail order. azithromycin 500 mg oral tablet (20 sources) Macrolide Antimicrobial Start: 10-31-19 End: 11-03-19 take 1 mg by mouth once daily Azithromycin (Zithromax Tri-Sadi) 500 mg tablet Discontinued 0 PO .COMPLEX 6 0 October 31, 2021 1:00am November 03, 2021 9:32am For 500 mg dose pack: take 500 mg once daily for 3 days PO Start: 04-13-2018 End: 08-06-2018 Start: 11-04-2008 End: 04-28-2009 Start: 11-04-2008 End: 04-28-2009 ZITHROMAX Z-SADI, 250MG (Oral Tablet) 1 Tablet uad for 0 days Refills: 0 Ordered: 04-Nov-2008 MOIRA Crowell LPN Start : 04-Nov-2008 End : 28-Apr-2009 Inactive bifidobacterium infantis 4 m g oral capsule (20 sources) Start: 11-08-2010 End: 12-08-2010 Start: 11-08-2010 End: 12-08-2010 take 1 capsule by mouth once daily ALIGN (Oral Capsule) 1 Capsule daily for 30 days Refills: 0 Ordered: 08-Nov-2010 Lakisha Spears CNP, CNP, Mary E Start : 08-Nov-2010 End : 08-Dec-2010 Inactive calcium carbonate 1500 mg or al tablet (20 sources) Start: 06-24-2013 Start: 06-24-2013 take 1 tablet by michael th once daily CALCIUM 600, 600MG (Oral Tablet) 1 Tablet qd for 0 days Quantity: 30 {Tablet} Refills: 0 Ordered: 24-Jun-2013 Anirudh GILL, Shelia Boggs Start : 24-Jun-2013 Active calcium citrate 1500 mg / cholecalciferol 200 unt oral tablet (18 sources) Vitamin D Start: 10-05-2016 End: 01-27-2022 Calcium Citrate-Vitamin D3 1 EACH tablet Discontinued 1 NMA PO DAILY October 05, 2016 1:00am January 27, 2022 10:40am Start: 10-05-2016 End: 01-27-2022 Calcium Citrate-Vitamin D3 D iscontinued 1 EACH PO DAILY October 05, 2016 12:00am January 27, 2022 9:40am celecoxib 200 mg oral capsule (20 sources) Nonsteroidal Anti-inflammatory Drug Start: 08-15-2011 End: 08-15-2011 clarithromycin 500 mg oral tablet (20 sources) Macrolide Antimicrobial Start: 10-27-2010 End: 11-10-2010 clopidogrel 75 mg oral tablet (20 sources) P2Y12 Platelet Inhibitor Start: 09-30-2021 End: 09-30-2021 take 1 tablet by mouth once daily Clopidogrel (Plavix) 75 mg tablet Discontinued 75 mg PO DAILY 08 12September 30, 2021 1:00am September 30, 2021 5:37pm Start: 10-06-2016 End: 09-28-2017 take 1 tablet by mouth once daily Clopidogrel 75 MG tablet Discontinued 75 mg PO DAILY October 06, 2016 1:00am September 28, 2017 11:28am ubidecarenone 100 mg oral ca psule (20 sources) Start: 06-13-2016 End: 07-25-2017 Start: 06-13-2016 End: 07-25-2017 take 1 capsule by mouth once daily CoQ-10 100 MG Oral Capsule Extended Release 1 (one) Capsule ER Capsule ER daily for 0 days Quantity: 30 {Capsule} Refills: 0 Ordered: 25-Jul-2017 Krsita Castillo LPN Start : 13-Jun-2016 End : 25-Jul-2017 Inactive Start: 08-30-2013 End: 10-26-2015 Start: 08-30-2013 End: 10-26-2015 take 1 capsule by mouth once daily COENZYME Q10, 200MG (Oral Capsule) 1 Capsule Capsule qd for 0 days Quantity: 30 {Capsule} Refills: 4 Ordered: 26-Oct-2015 Krista Castillo LPN Start : 30-Aug-2013 End : 26-Oct-2015 Discontinued Comments: to be taken with livalo Comment on above: to be taken with marcy zac colestipol hydrochloride 5000 mg granules for oral suspension (20 sources) Bile Acid Sequestrant Start: 3 End: 3 Controlled Delivery Probiotic (13 sources) Start: 6 End: 6 CoQ-10 (12 sources) Start: 6 End: 7 CoQ-10 100 MG Oral Capsule Extended Release (17 sources) Start: 6 End: 7 take 1 capsule by mouth once daily CoQ-10 100 MG Oral Capsule Extended Release 1 (one) Capsule ER Capsule ER daily for 0 days Quantity: 30 {Capsule} Refills: 0 Ordered: 25-Jul-2017 Krista Castillo LPN Start : 13-Jun-2016 End : 25-Jul-2017 Inactive dabigatran etexilate 75 mg oral capsule (20 sources) Start: 2 End: 3 24 hr dilTIAZem hydrochloride 120 mg extended release oral tablet (20 sources) Calcium Channel Chanda Start: 2 End: 3 doxycycline hyclate 100 mg oral capsule (20 sources) Tetracycline-class Drug Start: 0 End: 0 ezetimibe 10 mg oral tablet (20 sources) Dietary Cholesterol Absorption Inhibitor Start: 3 End: 3 fenofibrate 120 mg oral tablet (20 sources) Peroxisome Proliferator Receptor alpha Agonist Start: 7 End: 7 Start: 08-10-2007 End: 09-25-2013 Comment on above: This order discontin ued per [facility]. 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, needs Livalo ferrous sulfate 325 mg oral tablet (20 sources) Start: 03-18-2013 End: 06-24-2013 Start: 03-18-2013 End: 06-24-2013 take 1 tablet by mouth twice daily IRON SUPPLEMENT, 325 (65 Fe)MG (Oral Tablet) 1 Tablet bid for 30 days Refills: 0 Ordered: 24-Jun-2013 MOIRA Crowell LPN Start : 18-Mar-2013 End : 24-Jun-2013 Inactive hydroCHLOROthiazide 12.5 mg / losartan potassium 100 mg oral tablet (20 sources) Thiazide Diuretic, Angiotensin 2 Receptor Chanda Start: 05-07-2012 End: 05-07-2012 Comment on above: hypotension after hi p replac-- resumed med bp going back uphilding while startding CCB for rate control of a fib to watch bp doenst drop again ibandronic acid 150 mg oral tablet (20 sources) Bisphosphonate Start: 10-15-2013 End: 10-26-2015 L.Acidoph, Paracasei,B. Lactis (13 sources) Start: 10-05-2016 End: 10-04-2018 L.Acidoph, Paracasei,B. Lactis Discontinued 1 EACH PO DAILY October 05, 2016 2:49pm October 04, 2018 9:44am Start: 10-05-2016 End: 10-04-2018 L.Acidoph, Paracasei,B. Lact is Discontinued 1 EACH PO DAILY October 05, 2016 12:00am October 04, 2018 8:44am Start: 10-05-2016 End: 10-04-2018 L.Acidoph, Paracasei,B. Lact is Discontinued 1 EACH PO DAILY October 05, 2016 1:00am October 04, 2018 9:44am L.Acidoph,Paracasei,B.Animal is 1 EACH capsule (5 sources) Start: 10-05-2016 End: 10-04-2018 take 1 capsule by mouth once daily L.Acidoph,Paracasei,B.Animalis 1 EACH capsule Discontinued 1 NMA PO DAILY October 05, 2016 1:00am October 04, 2018 9:44am Lactobacillus Combination No .9 (Adult 50+ Probiotic) 4 billion cell capsule (18 sources) Start: 05-13-2019 End: 01-27-2022 take 4 capsules by mouth once daily Lactobacillus Combination No.9 (Adult 50+ Probiotic) 4 billion cell capsule Discontinued 4000 MMU CELLS PO DAILY May 13, 2019 9:31am January 27, 2022 10:40am Start: 05-13-2019 End: 01-27-2022 take 4 capsules by mouth once daily Lactobacillus Combination No.9 (Adult 50+ Probiotic) 4 billion cell capsule Discontinued 4000 NMA PO DAILY May 13, 2019 12:00am January 27, 2022 10:40am Start: 05-13-2019 End: 01-27-2022 take 4 capsules by mouth once daily Lactobacillus Combination No.9 (Adult 50+ Probiotic) 4 billion cell capsule Discontinued 4000 MMU CELLS PO DAILY May 12, 2019 11:00pm January 27, 2022 9:40am Start: 05-13-2019 End: 01-27-2022 take 4 capsules by mouth once daily Lactobacillus Combination No.9 (Adult 50+ Probiotic) 4 billion cell capsule Discontinued 4000 MMU CELLS PO DAILY May 13, 2019 12:00am January 27, 2022 10:40am lidocaine 0.05 mg/mg medicated patch (20 sources) Antiarrhythmic, Amide Local Anesthetic Start: 10-26-2012 End: 03-18-2013 Start: 10-26-2012 End: 03-18-2013 apply 1 dose transdermal route every twelve hours LIDODERM, 5% (External Patch) 1 Patch 12 hours on and hours off for 0 days Quantity: 30 {Patch} Refills: 0 Ordered: 18-Mar-2013 Bharti Villegas RN Start : 26-Oct-2012 End : 18-Mar-2013 Inactive LINZESS, 145 MCG (LINACLOTIDE) CAPSULES, 145 MCGMCG (Oral Capsule) (Free Text) (20 sources) Start: 12-11-2015 End: 01-10-2016 take 1 capsule by mouth every other day LINZESS, 145 MCG (LINACLOTIDE) CAPSULES, 145 MCGMCG (Oral Capsule) (Free Text) 1 (one) Capsule QOD for 30 days Refills: 0 Ordered: 17-May-2016 Lakisha Spears CNP, CNP, Mary E Start : 11-Dec-2015 End : 10-Jan-2016 Inactive LORazepam 0.5 mg oral tablet (20 sources) Benzodiazepine Start: 03-15-2012 End: 03-18-2013 Comment on above: thirty losartan potassium 25 mg oral tablet (20 sources) Angiotensin 2 Receptor Chanda Start: 01-27-2022 End: 01-28-2022 take 4 tablets by mouth once daily Losartan 25 mg tablet Discontinued 100 mg PO DAILY January 27, 2022 10:32am January 28, 2022 1:05pm Start: 01-27-2022 End: 01-28-2022 take 100 mg by mouth once daily Losartan Discontinued 100 MG PO DAILY January 27, 2022 9:32am January 28, 2022 12:05pm Start: 01-19-2022 End: 01-27-2022 take 1 tablet by mouth once daily Losartan 25 mg tablet Discontinued 25 mg PO DAILY 90 January 19, 2022 8:07am January 27, 2022 10:33am Start: 01-03-2022 End: 01-19-2022 Losartan 100 mg tablet Disco ntinued 50 mg PO DAILY 90 January 03, 2022 5:48pm January 19, 2022 8:07am Start: 01-03-2022 End: 01-19-2022 take 50 mg by mouth once daily Losartan Discontinued 5 0 MG PO DAILY January 03, 2022 4:48pm January 19, 2022 7:07am Start: 10-11-2021 End: 01-03-2022 take 1 tablet by mouth once daily Losartan 100 mg tablet Discontinued 100 mg PO DAILY 90 November 03, 2021 10:03am January 03, 2022 5:49pm meclizine hydrochloride 25 mg oral tablet (18 sources) Antiemetic Start: 01-31-2022 End: 08-22-2022 meloxicam 7.5 mg oral tablet (20 sources) Nonsteroidal Anti-inflammatory Drug Start: 05-07-2012 End: 05-07-2012 Comment on above: needed to start prad axa methylPREDNISolone 4 mg oral tablet (20 sources) Corticosteroid Start: 03-29-2022 End: 04-04-2022 take 1 tablet by mouth once Methylprednisolone (Medrol (Sadi)) 4 mg tablets,dose pack Discontinued 4 mg PO per package directions 21 6 0 March 29, 2022 12:00am April 03, 2022 12:00am April 04, 2022 12:03am Start: 10-26-2012 End: 03-18-2013 Start: 10-26-2012 End: 03-18-2013 MEDROL (SADI), 4MG (Oral Tabl et) 1 Tablet uad for 0 days Refills: 0 Ordered: 18-Mar-2013 Bharti Villegas RN Start : 26-Oct-2012 End : 18-Mar-2013 Inactive metroNIDAZOLE 0.0075 mg/mg v aginal gel (20 sources) Nitroimidazole Antimicrobial Start: 08-23-2013 End: 08-28-2013 Start: 10-27-2010 End: 11-10-2010 Jfdxotsd-Ior-Nq-Lycopen-Lute in (13 sources) Start: 10-05-2016 End: 01-27-2022 Xupqfije-Rnl-Ql-Lycopen-Lute in Discontinued 1 EACH PO DAILY October 05, 2016 2:49pm January 27, 2022 10:40am Start: 10-05-2016 End: 01-27-2022 Nervwrxz-Kqi-Ca-Lycopen-Lute in Discontinued 1 EACH PO DAILY October 05, 2016 12:00am January 27, 2022 9:40am Start: 10-05-2016 End: 01-27-2022 Azadwyhv-Kgo-Wu-Lycopen-Lute in Discontinued 1 EACH PO DAILY October 05, 2016 1:00am January 27, 2022 10:40am Akbxwjqt-Ifo-By-Lycopen-Lute in 1 EACH tablet (5 sources) Start: 10-05-2016 End: 01-27-2022 Takgfeyp-Gxg-Ld-Lycopen-Lute in 1 EACH tablet Discontinued 1 NMA PO DAILY October 05, 2016 1:00am January 27, 2022 10:40am Multivitamin Adults 50+ (11 sources) Multivitamin Kwaku lts 50+ Oral Tablet Active Multivitamin Adults 50+ Oral Tablet (4 sources) Multivitamin Kwaku lts 50+ Oral Tablet Active Multivitamin preparation (13 sources) Start: 06-24-2013 End: 12-11-2015 Multivitamins (14 sources) Start: 06-24-2013 End: 12-11-2015 Start: 06-24-2013 End: 12-11-2015 take 1 capsule by mouth once daily MULTIVITAMINS (Oral Capsule) 1 Capsule qd for 0 days Quantity: 30 {Capsule} Refills: 0 Ordered: 11-Dec-2015 Krista Castillo LPN Start : 24-Jun-2013 End : 11-Dec-2015 Discontinued MULTIVITAMINS (Oral Capsule) (20 sources) Start: 06-24-2013 End: 12-11-2015 take 1 capsule by mouth once daily MULTIVITAMINS (Oral Capsule) 1 Capsule qd for 0 days Quantity: 30 {Capsule} Refills: 0 Ordered: 11-Dec-2015 Krista Castillo LPN Start : 24-Jun-2013 End : 11-Dec-2015 Discontinued nitrofurantoin, macrocrystals 25 mg / nitrofurantoin, monohydrate 75 mg oral capsule (20 sources) Nitrofuran Antibacterial Start: 12-23-2020 End: 12-30-2020 omega-3 acid ethyl esters (mcfp) 1000 mg oral capsule (20 sources) Start: 01-07-2014 End: 10-26-2015 omeprazole 20 mg delayed release oral capsule (20 sources) Proton Pump Inhibitor Start: 10-26-2015 End: 12-11-2015 Start: 08-31-2010 End: 10-25-2010 Start: 08-31-2010 End: 10-25-2010 OMEPRAZOLE, 20MG (Oral Table t Delayed Release) [address] daily for 0 days Quantity: 30 {Tablet_DR} Refills: 0 Ordered: 25-Oct-2010 Deshaun Saunders LPNsie Start : 31-Aug-2010 End : 25-Oct-2010 Inactive pantoprazole 40 mg delayed release oral tablet (13 sources) Proton Pump Inhibitor Start: 06-24-2023 End: 08-30-2023 take 1 tablet by mouth once daily Pantoprazole 40 mg tablet,delayed release (DR/EC) Discontinued 40 mg PO DAILY June 24, 2023 12:00am August 30, 2023 12:28pm pravastatin sodium 40 mg oral tablet (20 sources) HMG-CoA Reductase Inhibitor Start: 03-15-2012 End: 03-15-2012 Comment on above: muscle pain Probiotic (14 sources) Start: 10-26-2015 End: 11-25-2015 Start: 10-26-2015 End: 11-25-2015 take 1 tablet by mouth once daily PROBIOTIC (Oral Tablet Delayed Release) 1 (one) Tablet DR daily for 30 days Quantity: 30 {Tablet} Refills: 0 Ordered: 25-Nov-2015 Lakisha Spears CNP, CNP Priscilla Start : 26-Oct-2015 End : 25-Nov-2015 Inactive PROBIOTIC (Oral Tablet Delayed Release) (20 sources) Start: 10-26-2015 End: 11-25-2015 take 1 tablet by mouth once daily PROBIOTIC (Oral Tablet Delayed Release) 1 (one) Tablet DR daily for 30 days Quantity: 30 {Tablet} Refills: 0 Ordered: 25-Nov-2015 Lakisha Spears CNP, CNP Priscilla Start : 26-Oct-2015 End : 25-Nov-2015 Inactive risedronate sodium 150 mg oral tablet (20 sources) Start: 10-15-2013 End: 10-15-2013 sennosides, mcfp 8.6 mg oral tablet (20 sources) Start: 03-18-2013 End: 06-24-2013 simvastatin 40 mg oral tablet (20 sources) HMG-CoA Reductase Inhibitor Start: 03-05-2010 Comment on above: muscle aches sucralfate 1000 mg oral tablet (20 sources) Aluminum Complex Start: 11-23-2015 End: 12-07-2015 levothyroxine sodium 0.025 mg oral tablet (20 sources) l-Thyroxine Start: 09-29-2006 End: 08-10-2007 ubiquinone 200 mg oral capsule (6 sources) Start: 08-30-2013 End: 10-26-2015 take 1 capsule by mouth once daily COENZYME Q10, 200MG (Oral Capsule) 1 Capsule Capsule qd for 0 days Quantity: 30 {Capsule} Refills: 4 Ordered: 26-Oct-2015 Krista Castillo LPN Start : 30-Aug-2013 End : 26-Oct-2015 Discontinued Comments: to be taken with livalo Comment on above: to be taken with marcy zac (11 sources) Start: 12-11-2015 End: 01-10-2016 Problems Active Problems Problem Classification Problem Date Documented Date Episodic/Chronic Abdominal pain (20 sources) Epigastric pain; Translations: [Abdominal pain] Resolved: 2 07-25-2017 Episodic Comment on above: IBS and anxietyrevie wed pelvic trans ab US, Reviewed CT of 08/31 reviewed Rachel asifmuderik anxiety and worry about pancreas cancer lots of reassurance, check amylase and lipase and enzymes ct scan okay. will c ompare old kidney cyst will call radiology. still some left upper quad discomfort. belch and flatuence help. ? ulcer. on prilosec clean stool out. some better. will take PPI for 4 weeks. worry about ovarian. will check US. consider Hpylori if return alot. will get colonscopy epigastric, colonosc opy December 07 with Ryland normal, he did not do endoscopy all labs normal and hypylori normal added sulcralfate but no better, can do CTHad cholecystectomy change in caliber of stool Administrative/social admission (2 sources) Medical examinations/reports status; Translations: [Encounter for Medicare annual wellness exam] 04-13-2018 Episodic Comment on above: reveiwed with patien t recent tests all questions scope 2009, mother after pneumonvax. Anxiety disorders (20 sources) Anxiety; Translations: [Generalized anxiety disorder] Onset: 5 04-13-2018 Chronic Comment on above: doing good Bacterial infection (20 sources) Helicobacter pylori [H. pylori]; Translations: [INFECTION, BACTERIAL D/T HELICOBACTER PYLORI] Resolved: 3 06-24-2013 Episodic Comment on above: abd pain improving Cardiac dysrhythmias (20 sources) Atrial fibrillation; Translations: [Atrial fibrillation] Onset: 5 Resolved: 2 04-13-2018 Chronic Comment on above: new onset -PAT- post op related. , sees Jessica once a year Stress test 10-03-16nd Cath 10-06-162016 new onset -PAT- post op related. , sees Jessica as neededStress test 10-03-16 Cath 10-06-162016 Cardiac dysrhythmias (20 sources) Palpitations; Translations: [Palpitations] Onset: 5 04-13-2018 Episodic Complications of surgical procedures or medical care (7 sources) History of subtotal thyroidectomy; Translations: [Postprocedural hypothyroidism] Onset: 4 08-12-2024 Chronic Comment on above: Patient is a 78-year -old female who presents for possible mass/nodule adjacent to the thyroid on the left in the setting of prior partial thyroidectomy. Per patient's history she underwent a left thyroid lobectomy with preservation of a thyroid remnant in the early . Within approximately 5 years of her surgery regrowth of the lobe was noted by endocrinology. Patient denies any clear compressive symptomology. Since the physical exam detection of this growth there has been numerous imaging studies including studies that did not directly address the thyroid. I had the opportunity to review majority of the studies with radiology and they shared their agreement that review of the CT images, in particular, shows that the area described as separate from the left thyroid lobe actually represents a lobulated portion of the thyroid isthmus. In my independent ultrasound exam I do not identify any discrete nodularity. Therefore, a large part of today's visit was spent discussing the prevalence of thyroid nodules and the potential for regeneration after surgical removal particularly in the setting where a remnant is left. I went on to describe the benign appearance of the remaining area and its stability as well as the suggestion that that does not represent a nodule at all but simply continuation of a thyroid goiter. With this understanding (and patient's denial of any compressive symptoms) I find no cause to recommend thyroid FNA at this time. Upon hearing this rationale and being able to see her images (as I shared with her) Ms. Muñoz provided her agreement. Instead we will opt for short interval surveillance of the remaining area but if this continues to be stable we will likely extend the surveillance window for any future studies. Patient is a 78-year -old female who presents for possible mass/nodule adjacent to the thyroid on the left in the setting of prior partial thyroidectomy. Per patient's history she underwent a left thyroid lobectomy with preservation of a thyroid remnant in the early 1999s. Within approximately 5 years of her surgery regrowth of the lobe was noted by endocrinology. Patient denies any clear compressive symptomology. Since the physical exam detection of this growth there has been numerous imaging studies including studies that did not directly address the thyroid. I had the opportunity to review majority of the studies with radiology and they shared their agreement that review of the CT images, in particular, shows that the area described as separate from the left thyroid lobe actually represents a lobulated portion of the thyroid isthmus. In my independent ultrasound exam I do not identify any discrete nodularity. Therefore, a large part of today's visit was spent discussing the prevalence of thyroid nodules and the potential for regeneration after surgical removal particularly in the setting where a remnant is left. I went on to describe the benign appearance of the remaining area and its stability as well as the suggestion that that does not represent a nodule at all but simply continuation of a thyroid goiter. With this understanding (and patient's denial of any compressive symptoms) I find no cause to recommend thyroid FNA at this time. Upon hearing this rationale and being able to see her images (as I shared with her) Ms. Muñoz provided her agreement. Instead we will opt for short interval surveillance of the remaining area but if this continues to be stable we will likely extend the surveillance window for any future studies.Update 02/14/2025: Patient is now 79 years old but denies any progression of compressive symptoms. Further, she has completed interval thyroid ultrasound which was read by radiology as stable examination, however, when I apply the dimensions reported from her most recent ultrasound to those obtained last year I find a decrease of approximately 30% by volume using the EMELYN change in volume calculator. Further, radiology does not report any TI-RADS ratings for their findings but I rate her largest lesion as a TI-RADS 3 while the area they describe lastly in their report is measuring 1.7 x 1.9 x 1.7 cm as a likely TI-RADS 1. This is due to a spongiform appearance that I appreciate only after reviewing the imaging directly and simply in reading the narrative portion of the impression would have 1 interpret this as a TI-RADS 4 lesion. Given the decrease in size I find no cause to pursue thyroid biopsy but instead suggested we continue surveillance. Patient does wish to know if her advancing age is to be factored into any decision for surgery and whether or not it may be beneficial to simply proceed with surgery at this point rather than waiting until she would be frailer in a physical state. However, I provided a different rationale that she likely has a substernal component to her thyroid mass and this could lead to a need for even partial sternotomy and would certainly put her at increased risk for recurrent laryngeal nerve injury/hypoparathyroidism more than would be the risk for a first time surgery on a thyroid of normal proportions. With this deduction I reason that any cause to proceed to the operating room had to warrant these risks. She confirms understanding. Conditions associated with dizziness or vertigo (20 sources) Benign paroxysmal positional vertigo; Translations: [BPV (benign positional vertigo), right] Resolved: 2 01-31-2022 Episodic Diabetes mellitus without complication (20 sources) Hyperglycemia Episodic Disorders of lipid metabolism (20 sources) Mixed hyperlipidemia; Translations: [Hypertriglyceridemia] 04-13-2018 Chronic Comment on above: would like to get on livalo but insurance not cover was on Zocor 03-05-2010 and provachol 03-15-12 with cramping. reveiwed with patien t recent tests ldl good, excellent profile on Livalo, continue unable to take statins was approved Esophageal disorders (20 sources) Gastroesophageal reflux disease; Translations: [GERD (gastroesophageal reflux disease)] 04-13-2018 Chronic Comment on above: had EGD, had Hpylori treatment. doing better with that treatment. had lost 20 pounds with this and now gain back. talk about this. Essential hypertension (20 sources) Hypertensive disorder; Translations: [Hypertension] Onset: 5 07-25-2018 Chronic Comment on above: controlled on toprol Fluid and electrolyte disorders (20 sources) Hypokalemia; Translations: [Hypokalemia] Onset: 2 Resolved: 2 06-24-2013 Episodic Genitourinary symptoms and ill-defined conditions (20 sources) Urinary frequency; Translations: [Increased frequency of urination] Resolved: 3 04-13-2018 Episodic Comment on above: will reevaluate in f uture Gout and other crystal arthropathies (14 sources) Gouty arthritis of right great toe; Translations: [Gout, unspecified] 03-29-2022 Chronic Headache; including migraine (20 sources) Tension-type headache; Translations: [Tension-type headache, unspecified, not intractable] Chronic Immunizations and screening for infectious disease (20 sources) Need for prophylactic vaccination and inoculation against influenza; Translations: [Patient encounter status] 12-23-2020 Episodic Inflammation; infection of eye (except that caused by tuberculosis or sexually transmitteddisease) (20 sources) External hordeolum; Translations: [Stye] Resolved: 2 04-02-2020 Episodic Comment on above: warm compresses - if not better will need to see ey e doc Inflammatory diseases of female pelvic organs (20 sources) Vaginitis; Translations: [Vaginitis] 04-13-2018 Episodic Comment on above: yeast vs other Nausea and vomiting (20 sources) Nausea; Translations: [Nausea] Resolved: 3 07-28-2015 Episodic Comment on above: early satiety Neoplasms of unspecified nature or uncertain behavior (20 sources) Neoplasm of uncertain behavior of skin; Translations: [Neoplasm of uncertain behavior of skin] Resolved: 3 07-29-2015 Episodic Nonspecific chest pain (20 sources) Chest pain; Translations: [Chest pain] Onset: 0 Resolved: 3 06-24-2013 Episodic Osteoarthritis (18 sources) Arthritis; Translations: [Unspecified osteoarthritis, unspecified site] 10-01-2021 Chronic Osteoporosis (1 source) Age-related osteoporosis without current pathological fracture; Translations: [Age-related osteoporosis without current pathological fracture] Onset: 5 Chronic Other and unspecified benign neoplasm (20 sources) Benign neoplasm of skin of face; Translations: [Irritated nevus of face] Resolved: 2 04-13-2018 Episodic Other bone disease and musculoskeletal deformities (20 sources) Osteopenia; Translations: [Osteopenia] 04-13-2018 Episodic Comment on above: 08-20 very early ost eopenia Other circulatory disease (20 sources) Hypotension, unspecified; Translations: [Low blood pressure] Episodic Other circulatory disease (20 sources) Congestion of throat; Translations: [Congestion of throat] Resolved: 7 07-25-2017 Episodic Other circulatory disease (20 sources) H/O: atrial fibrillation; Translations: [History of atrial fibrillation] 08-14-2020 Episodic Other connective tissue disease (20 sources) Pain in upper limb; Translations: [Pain of upper extremity, unspecified laterality] Resolved: 3 07-31-2015 Episodic Comment on above: left arm think from neck. will do medrol sadi. ice assure not heart to massotherapy Other connective tissue disease (20 sources) Pain in right foot; Translations: [Right foot pain] 12-23-2020 Episodic Other connective tissue disease (20 sources) Pain in right lower limb; Translations: [Right leg pain] Resolved: 2 03-02-2021 Episodic Other connective tissue disease (20 sources) Swelling of right lower limb; Translations: [Right leg swelling] 03-02-2021 Episodic Other connective tissue disease (20 sources) Muscle weakness of limb; Translations: [Leg weakness] Resolved: 7 07-25-2017 Episodic Other connective tissue disease (4 sources) Spasm; Translations: [Muscle spasm] 06-23-2023 Episodic Other diseases of kidney and ureters (20 sources) Acquired renal cystic disease; Translations: [Cyst, kidney, acquired] 04-13-2018 Episodic Comment on above: recheck Other diseases of kidney and ureters (1 source) Cyst of kidney; Translations: [Cyst, kidney, acquired] 12-23-2020 Episodic Other ear and sense organ disorders (20 sources) Tinnitus; Translations: [Tinnitus] Resolved: 3 06-24-2013 Episodic Other ear and sense organ disorders (12 sources) Excessive cerumen in ear canal ; Translations: [Ceruminosis (Renamed from Excessive cerumen in ear canal)] Resolved: 3 02-20-2023 Episodic Other female genital disorders (20 sources) Endometrial hyperplasia; Translations: [Endometrial hyperplasia] 08-25-2021 Chronic Other female genital disorders (20 sources) Vaginal bleeding; Translations: [Vaginal bleeding] Resolved: 2 08-25-2021 Chronic Other gastrointestinal disorders (20 sources) Irritable bowel syndrome; Translations: [Irritable bowel syndrome] Resolved: 3 04-13-2018 Chronic Other gastrointestinal disorders (20 sources) Irritable bowel syndrome characterized by constipation; Translations: [Irritable bowel syndrome with constipation] 07-25-2017 Chronic Other gastrointestinal disorders (20 sources) Abdominal bloating; Translations: [Abdominal bloating] Resolved: 7 07-25-2017 Episodic Comment on above: try gluten free food s Other gastrointestinal disorders (20 sources) Constipation; Translations: [Constipation] 11-13-2020 Episodic Comment on above: History of IBS-C, la st colonoscpy 12-01-15, next 10, per Ryland. Will try diet and exercise. Other hematologic conditions (20 sources) MCV - raised; Translations: [Elevated MCV] 08-14-2020 Episodic Other inflammatory condition of skin (20 sources) Itching ; Translations: [Itching with irritation] Resolved: 7 07-25-2017 Episodic Comment on above: left side of face Other liver diseases (20 sources) Other specified disorders of liver; Translations: [Disease of liver] Chronic Other liver diseases (20 sources) Liver cyst; Translations: [Other specified diseases of liver] Resolved: 3 06-24-2013 Chronic Other liver diseases (20 sources) Disease of liver; Translations: [Other specified disorders of liver] 04-13-2018 Chronic Comment on above: pt has been aware of them - has had for years Other lower respiratory disease (20 sources) Cough; Translations: [Cough] 04-13-2018 Episodic Other lower respiratory disease (20 sources) Dyspnea on exertion; Translations: [Short of breath on exertion] 08-25-2021 Episodic Other nervous system disorders (20 sources) Tremor; Translations: [Tremor] 04-13-2018 Episodic Other non-epithelial cancer of skin (20 sources) Squamous cell carcinoma of skin of face; Translations: [Squamous cell carcinoma, face] 04-13-2018 Chronic Other non-epithelial cancer of skin (20 sources) Squamous cell carcinoma of skin of ear; Translations: [Squamous cell carcinoma, ear] 04-13-2018 Episodic Comment on above: seen by Zay left ear Other non-traumatic joint disorders (20 sources) Hip pain; Translations: [Pain in unspecified hip] 04-13-2018 Episodic Comment on above: hip OA bad. may need to have replaced. seen knpaulineic. is going to go back because to him. celebrex now not helping Other nutritional; endocrine; and metabolic disorders (20 sources) Body mass index 30+ - obesity; Translations: [BMI 34.0-34.9,adult] Resolved: 3 07-25-2017 Chronic Comment on above: will refer to Why we ight Other nutritional; endocrine; and metabolic disorders (20 sources) Obesity, unspecified; Translations: [Obesity] Chronic Other nutritional; endocrine; and metabolic disorders (20 sources) Hypercalcemia; Translations: [Hypercalcemia] 04-13-2018 Chronic Comment on above: stop calcium repeat1 0.3 with nausea Other nutritional; endocrine; and metabolic disorders (20 sources) Obesity; Translations: [Obesity, unspecified] 04-13-2018 Chronic Comment on above: need to lose weight Other skin disorders (20 sources) Nonscarring hair loss, unspecified; Translations: [Loss of hair] 08-06-2018 Episodic Other upper respiratory disease (20 sources) Allergic rhinitis; Translations: [Allergic Rhinitis] 04-13-2018 Chronic Comment on above: hard to sing alot dr kathleen. told use claritin no D Other upper respiratory disease (20 sources) Congestion of nasal sinus; Translations: [Sinus congestion (Renamed from Congestion of paranasal sinus)] Resolved: 7 07-25-2017 Episodic Other upper respiratory disease (20 sources) Pain in throat Episodic Other upper respiratory infections (20 sources) Viral upper respiratory tract infection; Translations: [Sore throat symptom] 04-13-2018 Episodic Otitis media and related conditions (20 sources) Other specified disorders of Eustachian tube, left ear; Translations: [Dysfunction of left eustachian tube] Resolved: 7 07-25-2017 Episodic Comment on above: use nasal spray as w e discussed Paralysis (20 sources) Monoparesis - leg; Translations: [Paresis of lower extremity] Resolved: 7 07-25-2017 Chronic Residual codes; unclassified (20 sources) Needs influenza immunization; Translations: [Need for prophylactic vaccination and inoculation against influenza] 08-06-2018 Episodic Residual codes; unclassified (20 sources) Non-smoker; Translations: [Nonsmoker] 12-23-2020 Episodic Spondylosis; intervertebral disc disorders; other back problems (20 sources) Low back pain; Translations: [Low back pain] Resolved: 7 07-25-2017 Episodic Thyroid disorders (20 sources) Hypothyroidism; Translations: [Thyroid nodule] Onset: 5 07-25-2018 Chronic Comment on above: good 06-23 Dr. mojica took out an d see someone at [facility] and stable What is described as a left-sided thyroid nodule does not appear to be a nodule at all but a lobulated portion of patient's thyroid isthmus that may actually represent regenerated thyroid tissue from patient's history of left thyroid lobectomy. What is described as a left-sided thyroid nodule does not appear to be a nodule at all but a lobulated portion of patient's thyroid isthmus that may actually represent regenerated thyroid tissue from patient's history of left thyroid lobectomy.Update 02/14/2025: If what is described as discrete nodule does not fact represent a nodule rather than extension of the thyroid isthmus then I would give a TI-RADS 3 rating and it has decreased in size from previous measurement. Unclassified (20 sources) Postmenopausal state; Translations: [Needs influenza immunization] 04-13-2018 Episodic Unclassified (20 sources) Hypertriglycerides (272.1) Unclassified (20 sources) ANXIETY DISORDER, GENERALIZED (300.02) Unclassified (20 sources) WWV V73.21 (Renamed from WWV) Unclassified (20 sources) Hypertension 401.1 (Renamed from Hypertension (401.0)) Unclassified (20 sources) Unclassified (20 sources) Tremor NEC (333.1) Unclassified (20 sources) Abnormal mammogram (793.80) Unclassified (20 sources) BMI 33.0-33.9, ADULT (V85.33) Unclassified (20 sources) BMI 34.0-34.9, ADULT (V85.34) Unclassified (20 sources) Cyst, kidney, acquired (593.2) Unclassified (20 sources) Pelvis/Thigh/Hip Pain (719.45) Unclassified (20 sources) Irritable bowel syndrome with constipation Unclassified (20 sources) Encounter for screening mammogram for breast cancer (Renamed from Encounter for screening mammogram for malignant neoplasm of breast) Unclassified (20 sources) Postmenopausal (Renamed from Postmenopausal status) Unclassified (20 sources) Hyperglyceridemia Unclassified (20 sources) Non-smoker; Translations: [Non-smoker] 12-07-2017 Unclassified (20 sources) Squamous cell carcinoma, ear Unclassified (20 sources) WWV Unclassified (20 sources) Nonsmoker; Translations: [Non-smoker] 04-13-2018 Unclassified (20 sources) BMI 35.0-35.9,adult Unclassified (20 sources) Hair loss Unclassified (20 sources) BMI 37.0-37.9, adult Unclassified (7 sources) Elevated MCV Unclassified (1 source) I10 - Essential (primary) hypertension,F41.9 - Anxiety disorder, unspecified Urinary tract infections (20 sources) Urinary tract infectious disease; Translations: [UTI (urinary tract infection)] 12-23-2020 Episodic Viral infection (20 sources) Viral infection, unspecified; Translations: [Viral disease] Resolved: 07-27-2015 Episodic Comment on above: will get atb if star t bacterial signs and symptoms talk about Past or Other Problems Problem Classification Problem Date Documented Da te Episodic/Chronic Cardiac dysrhythmias (20 sources) Cardiac dysrhythmias Coronary atherosclerosis and other heart disease (20 sources) Coronary atherosclerosis and other heart disease Influenza (19 sources) Influenza Other circulatory disease (20 sources) Low blood pressure; Translations: [Hypotension, unspecified] Resolved: 03-26-2012 07-31-2015 Episodic Other connective tissue disease (1 source) Paresis of lower extremity; Translations: [Leg weakness] Resolved: 07-25-2017 07-25-2017 Episodic Other connective tissue disease (17 sources) Pain in right foot; Translations: [Right foot pain] 04-02-2020 Other diseases of kidney and ureters (11 sources) Cyst of kidney; Translations: [Cyst, kidney, acquired] 08-13-2018 Comment on above: recheck Other female genital disorders (20 sources) Vaginal discharge; Translations: [Discharge from the vagina] Resolved: 08-21-2022 08-25-2021 Episodic Other gastrointestinal disorders (3 sources) Irritable bowel syndrome with constipation; Translations: [Irritable bowel syndrome with constipation] 07-25-2017 Otitis media and related conditions (20 sources) Dysfunction of left eustachian tube; Translations: [Dysfunction of left eustachian tube] Resolved: 07-25-2017 07-25-2017 Comment on above: use nasal spray as w e discussed Pneumonia (20 sources) Pneumonia 09-13-2016 Comment on above: mammo 06-21, BD 12-1 0 scope 2009, mother after pneumonvax. Unclassified (20 sources) Mammography abnormal; Translations: [Breast neoplasm screening status] Onset: 09-30-2021 04-13-2018 Episodic Unclassified (20 sources) BMI 34.0-34.9,adult Unclassified (20 sources) Abdominal Pain,General (789.07) Unclassified (20 sources) Screening for breast cancer (V76.10) Unclassified (20 sources) suture removal Resolved: 06-24-2013 06-24-2013 Comment on above: 5 stitches were daniel zonia. No reness or swelling. Well approximated. Pt tolerated well. Unclassified (20 sources) Unspecified Diagnosis Resolved: 06-24-2013 06-24-2013 Unclassified (20 sources) Lesion-Unknown behavior (238.2) Unclassified (20 sources) INFECTION, BACTERIAL D/T HELICOBACTER PYLORI (041.86) Unclassified (20 sources) Congestion of throat Unclassified (20 sources) Abdominal Pain,LUQ (789.02) Unclassified (20 sources) Encounter for screening for malignant neoplasm of colon (Renamed from Special screening for malignant neoplasms, colon); Translations: [Screening status] 04-13-2018 Unclassified (20 sources) Abdominal pain, acute, epigastric Unclassified (20 sources) Irritated nevus of face Unclassified (20 sources) Itching with irritation Unclassified (20 sources) Squamous cell carcinoma, face Unclassified (20 sources) Dysfunction of left eustachian tube Unclassified (20 sources) Upper respiratory infection, viral Unclassified (20 sources) Sinusitis, acute Unclassified (20 sources) Annual Medicare Physical (V70.0) Unclassified (20 sources) GYNECOLOGICAL EXAMINATION, ROUTINE (V72.31) Unclassified (20 sources) Screening status; Translations: [Encounter for screening for malignant neoplasm of colon (Renamed from Special screening for malignant neoplasms, colon)] 08-06-2018 Unclassified (20 sources) Non-smoker; Translations: [Nonsmoker] 08-06-2018 Unclassified (20 sources) Patient encounter status; Translations: [Annual Medicare Phyiscal WITHOUT abnormal findings (Renamed from Encounter for general adult medical examination without abnormal findings)] 08-13-2018 Comment on above: reveiwed with sagar t recent tests all questions scope 2009, mother after pneumonvax. Unclassified (17 sources) Right foot pain Unclassified (20 sources) Stye Unclassified (17 sources) Screening for breast cancer Unclassified (13 sources) Encounter for hepatitis C virus screening test for high risk patient Results Test Name Value Interpretation Reference Range Facility Cardiology Visit Reporton Cardiology Visit Report [facility] [address] [place] [address] OFFICE VISIT Date of Service: 06/27/25 MR#: [id number] Acct: [id number] Name: KAMRYN MUÑOZ Rep #: [id number] : 1945 Provider: TIARRA Cowan Age/Sex: 79/F Location: [facility] [place] Status: Signed HPI HPI History of Present Illness Details: Kamryn Muñoz is a 79-year-old female who presents to office today for follow-up for monitoring of her cardiovascular health. Patient has a history of atrial fibrillation, hypertension, hyperlipidemia. Patient presented with shortness of breath and underwent echocardiogram in September 2021 that demonstrated preserved ejection fraction. Patient had stress test demonstrating evidence of basal to mid anterior ischemia that then resulted in undergoing cardiac catheterization. Cardiac catheterization 09/2021 demonstrated normal coronary arteries. Patient underwent repeat echocardiogram in September 2023 that demonstrated preserved ejection fraction. She was anticoagulated and subsequently underwent DC cardioversion 10/03/2023. Upon presentation today, patient reports noticing significant hair loss over summer that had led to her panicking. She saw a bias binding cutter and PCP for this was diagnosed with anxiety. Her HR was noted to be 100 at rest and she was started on Zoloft. She noticed skipping beat when checking her pulse. She contacted her PCP and was concerned her palpitations and jerking were a side effects from her Zoloft. She discontinued this and made an appt wiht us. Upon making these appointments (prior to being seen), she felt relieved and her symptoms have decreased. She has stopped her Zoloft 2 days ago. She reports noticing an increase in her anxiety/stress with her thyroid diagnosis (large and approaching aorta). She notes her heart pounding and can hear her heart beat more-so at night. Her dyspnea on exertion seems worse; however, she reports she has decreased her activity levels due to life events. Further ROS below. Intake Vital Signs 02/14/25 13:27 06/27/25 08:14 06/27/25 09:54 06/27/25 09:56 Height 5 ft 5 in 5 ft 5 in Weight: 228 lb BMI 37.9 BP 148/71 H 120/72 149/81 H Blood Pressure Location Lt radial Lt brachial Lt brachial Position Sitting Sitting Sitting Respiration 16 20 H Pulse 87 Pulse Source Monitor Pulse Oximetry (%) 97 Oxygen Delivery Method room air Intake Visit Reasons: Atrial fibrillation Tip Stretcher Required: No Accompanied by: Self Is patient in pain?: No Allergies Penicillins Allergy (Verified 06/27/25 09:50) Unknown pravastatin (From Pravachol) Allergy (Verified 06/27/25 09:50) Unknown simvastatin (From Zocor) Allergy (Verified 06/27/25 09:50) Unknown atorvastatin (From Lipitor) Adverse Reaction (Verified 06/27/25 09:50) Unknown Medications ???Medication ???Instructions ???Recorded ???Confirmed ???Type calcium 600 mg (as 1 cap PO DAILY 03/16/22 06/27/25 H istory carbonate)-vitamin D3 10 mcg (400 unit) capsule cranberry 500 mg capsule 500 mg PO DAILY 03/16/22 06/27/25 History lactobacillus combination no.4 3 3,000 mmu cells PO DAILY 03/16/22 06/27/25 History billion cell capsule (Probiotic) multivitamin 1 tab PO DAILY 03/16/22 06/27/25 H istory pitavastatin calcium 1 mg tablet 1 mg PO DAILY 03/16/22 06/27/25 Hi story (Livalo) apixaban 5 mg tablet (Eliquis) 5 mg PO BID #180 tabs 11/27/24 Rx amlodipine 5 mg tablet 5 mg PO DAILY #90 tabs 12/16/24 Rx metoprolol succinate 50 mg 50 mg PO DAILY #90 tabs 04/09/25 1 Rx tablet,extended release 24 hr Ejection fraction %: 65 Have you fallen in the past year?: No Nurse's Note: Pt would like a recommendation for a PCP. Pt states that her metoprolol or her amlodipine was changed from her pharmacy as in one used to be round and now it's oblong and it has a split in it. [facility] Medical History Thyroid nodule Wears glasses Cluster headache Vertigo History of pain when walking History of echocardiogram History of stress test Hypertension Cardiology follow-up encounter History of irregular heartbeat Essential hypertension Cancer Alcohol use Thyroid disease Arthritis Back pain Gastric reflux History of IBS Former smoker Shortness of breath on exertion History of skin cancer Arthritis Hyperlipidemia Paroxysmal atrial fibrillation Surgical History History of cardiac catheterization History of hysteroscopy Hx of right cataract extraction Hx of left cataract extraction History of open reduction and internal fixation (ORIF) procedure Hx laparoscopic cholecystectomy History of bilateral breast reduction surgery History of (more content not included)... Normal [facility] Surgery Visit Reporton 02-14 Surgery Visit Report [facility] [address] [place] [address] OFFICE VISIT Date of Service: 02/14/25 MR#: [id number] Acct: [id number] Name: KAMRYN MUÑOZ Rep #: [id number] : 1945 Provider: Dr. Bro douglass MD Age/Sex: 79/F Location: [facility] Status: Signed Intake Vital Signs 08/06/24 12:54 01/13/25 07:30 02/14/25 13:27 Height 5 ft 5 in 5 ft 5 in 5 ft 5 in Weight: 231 lb BMI 38.4 BP 123/80 H Blood Pressure Location Lt brachial Position Sitting Respiration 18 16 Pulse 93 Pulse Source Monitor Pulse Oximetry (%) 97 Intake Visit Reasons: 6M THYROID RECALL Chief Complaint: thyroid f/u Tip Stretcher Required: No Is patient in pain?: No Allergies Penicillins Allergy (Verified 02/14/25 13:28) Unknown pravastatin (From Pravachol) Allergy (Verified 02/14/25 13:28) Unknown simvastatin (From Zocor) Allergy (Verified 02/14/25 13:28) Unknown atorvastatin (From Lipitor) Adverse Reaction (Verified 02/14/25 13:28) Unknown Medications ???Medication ???Instructions ???Recorded ???Confirmed ???Type calcium 600 mg (as 1 cap PO DAILY 03/16/22 02/14/25 H istory carbonate)-vitamin D3 10 mcg (400 unit) capsule cranberry 500 mg capsule 500 mg PO DAILY 03/16/22 02/14/25 History lactobacillus combination no.4 3 3,000 mmu cells PO DAILY 03/16/22 02/14/25 History billion cell capsule (Probiotic) multivitamin 1 tab PO DAILY 03/16/22 02/14/25 H istory pitavastatin calcium 1 mg tablet 1 mg PO DAILY 03/16/22 02/14/25 Hi story (Livalo) metoprolol succinate 50 mg 50 mg PO DAILY #90 tabs 11/02/23 0 02/14/25 Rx tablet,extended release 24 hr apixaban 5 mg tablet (Eliquis) 5 mg PO BID #180 tabs 11/27/2403/05 Rx amlodipine 5 mg tablet 5 mg PO DAILY #90 tabs 12/16/24 Rx Have you fallen in the past year?: No PFSH Medical History Thyroid nodule Wears glasses Cluster headache Vertigo History of pain when walking History of echocardiogram History of stress test Hypertension Cardiology follow-up encounter History of irregular heartbeat Essential hypertension Cancer Alcohol use Thyroid disease Arthritis Back pain Gastric reflux History of IBS Former smoker Shortness of breath on exertion History of skin cancer Arthritis Hyperlipidemia Paroxysmal atrial fibrillation Surgical History History of cardiac catheterization History of hysteroscopy Hx of right cataract extraction Hx of left cataract extraction History of open reduction and internal fixation (ORIF) procedure Hx laparoscopic cholecystectomy History of bilateral breast reduction surgery History of left heart catheterization (10/11/21) H/O bilateral hip replacements H/O partial thyroidectomy Family History Father aortic aneurysm Heart disease Sister Seizures Brother coronary stent Hearing loss Heart disease Diabetes Mother Myocardial infarction Anesthesia complication Hearing loss Heart disease Social History household members: none current occupational status: retired Smoking Status: Former smoker alcohol intake: current alcohol intake frequency: a few times a month Alcohol type: wine substance use type: does not use caffeine: Yes Type: carbonated beverages what type of physical activity do you participate in: walking frequency: 1-2 times per week duration: 15-30 minutes/day seatbelt use: always do you feel safe at home: Yes HPI HPI HPI: Patient is 79-year-old female who makes follow-up for surveillance of thyroid nodularity and regrowth of a left thyroid lobe status post partial resection years ago. Her last visit with us was 08/12/2024. She presents today stating that she is unchanged for her compressive symptom reporting and acknowledges a slight dry cough but denies any hoarseness or swallowing difficulty. Patient completed interval surveillance thyroid ultrasound on 02/05/2025. She presents today for those results. Below is recapitulated from patient's prior visit for ease review: Patient is a 78-year-old female who presents for evaluation of a left sided thyroid nodule versus mass adjacent to the thyroid. They are referred for surgical consultation from Ms. Dian Duron NP. This was discovered initially many years ago. At this point Mrs. Muñoz has a hard time recalling exact dates but estimates sometime between [address] Mojica operating on the left side after a concerning biopsy result. She recalls that Dr. Mojica left part of the thyroid and placed to protect the parathyroid glands. She also recalls that the michael (more content not included)... Normal [facility] Thyroidon 02-05-2025 Thyroid [facility] [address] [place] [address] Thyroid MR#: [id number] Acct: [id number] Name: KAMRYN MUÑOZ Rep #: [id number] : 1945 F 79 From: Wayne blevins MD PCP: REBA Joyner Status: REG CLI Study: Thyroid Date of Exam: 02/05/25 Exam# [id number] Ordering Dr: Bro Deleon MD PROCEDURE: THYROID 02/05/2025 REASON FOR EXAM: THYROID NODULE TECHNIQUE: High-frequency thyroid ultrasound, including grayscale and color-flow images. REFERENCE LINKS: TI-RADS Chart: [email or web address] TI-RADS Calculator Tool with Reference Images: [email or web address]/ COMPARISON: July 22, 2024. FINDINGS: Right thyroid lobe size: 4.9 cm 1.9 cm 1.6 cm Left thyroid lobe size: 8 cm x 5.4 cm 3.9 cm Isthmus: 0.36 cm Background parenchymal echotexture is heterogeneous Nodules: Stable 1 cm x 0.5 cm 0.3 cm hypoechoic nodule in the midportion of the right lobe. Stable 1.8 cm 1.5 cm 0.8 cm cystic nodule with debris within it. Stable 7 mm x 6 mm x 6 mm hypoechoic nodule in the lower pole. Stable dominant complex nodule in the lower pole of the left lobe measuring 3.9 cm 4.4 cm 3.5 cm. Stable heterogeneous hypoechoic nodule measuring 1.7 cm 1.9 cm 1.7 cm. US/Thyroid IMPRESSION: Stable examination. Yearly follow-up recommended. RECOMMENDATION: Based on most suspicious nodule. Nodule size = largest diameter Only evaluate nodule if =>5 mm. Growth > 20% in 2 dimensions = worsening. Follow up to 4 nodules. Recommend biopsy for no more than 2 nodules. Reading Location: [place] [address] CC: FLIGHT STEWARDKayyC Dian Duron; Dr. Bro Deleon MD Card Room Manager: Signed Normal [facility] Cardiology Visit Reporton Cardiology Visit Report [facility] [address] [place] [address] OFFICE VISIT Date of Service: 01/13/25 MR#: [id number] Acct: [id number] Name: KAMRYN MUÑOZ Rep #: [id number] : 1945 Provider: TIARRA Cowan Age/Sex: 79/F Location: [facility] Status: Signed HPI HPI History of Present Illness Details: Kamryn Muñoz is a 79-year-old female who presents to office today for follow-up for monitoring of her cardiovascular health. Patient has a history of atrial fibrillation, hypertension, hyperlipidemia. Patient presented with shortness of breath and underwent echocardiogram in September 2021 that demonstrated preserved ejection fraction. Patient had stress test demonstrating low workload with evidence of basal to mid anterior ischemia that then resulted in undergoing cardiac catheterization. Cardiac catheterization demonstrated normal coronary arteries. Patient underwent repeat echocardiogram in September 2023 that demonstrated preserved ejection fraction. She was anticoagulated and subsequently underwent DC cardioversion 10/03/2023. Since last seen, patient reports doing well. Patient reports she has not noticed any recurrence of atrial fibrillation; however, she was not always aware of it in the past. Patient reports occasion al left lower extremity edema that appears to worsen the longer she is on her feet and resolves with elevation. She reports chronic bilateral lower extremity pain, mostly in the anterior lower leg near her bone. She denies any swelling, erythema, change in her pain. She is unsure of how long this has been intermittently happening as she did not really notice it until a physician pointed out. She has been compliant with anticoagulation. She denies any bleeding concerns. Patient reports inability to tolerate activity secondary to back pain. Further ROS below. Intake Vital Signs 05/02/24 10:31 08/06/24 12:54 01/13/25 07:30 Height 5 ft 4 in 5 ft 5 in 5 ft 5 in Weight: 231 lb BMI 38.4 BP 123/80 H Blood Pressure Location Lt brachial Position Sitting Respiration 18 Pulse 93 Pulse Source Monitor Pulse Oximetry (%) 97 Intake Visit Reasons: 9 M FU Tip Stretcher Required: No Is patient in pain?: No Allergies Penicillins Allergy (Verified 08/06/24 12:55) Unknown pravastatin (From Pravachol) Allergy (Verified 08/06/24 12:55) Unknown simvastatin (From Zocor) Allergy (Verified 08/06/24 12:55) Unknown atorvastatin (From Lipitor) Adverse Reaction (Verified 08/06/24 12:55) Unknown Medications ???Medication ???Instructions ???Recorded ???Confirmed ???Type calcium 600 mg (as 1 cap PO DAILY 03/16/22 01/13/25 H istory carbonate)-vitamin D3 10 mcg (400 unit) capsule cranberry 500 mg capsule 500 mg PO DAILY 03/16/22 01/13/25 History lactobacillus combination no.4 3 3,000 mmu cells PO DAILY 03/16/22 01/13/25 History billion cell capsule (Probiotic) multivitamin 1 tab PO DAILY 03/16/22 01/13/25 H istory pitavastatin calcium 1 mg tablet 1 mg PO DAILY 03/16/22 01/13/25 Hi story (Livalo) metoprolol succinate 50 mg 50 mg PO DAILY #90 tabs 11/02/23 0 01/13/25 Rx tablet,extended release 24 hr apixaban 5 mg tablet (Eliquis) 5 mg PO BID #180 tabs 11/27/2402/02 Rx amlodipine 5 mg tablet 5 mg PO DAILY #90 tabs 12/16/24 Rx Ejection fraction %: 65 Have you fallen in the past year?: No Nurse's Note: patient's bp cuff left arm: 138/80, pulse 94 PFSH Medical History Thyroid nodule Wears glasses Cluster headache Vertigo History of pain when walking History of echocardiogram History of stress test Hypertension Cardiology follow-up encounter History of irregular heartbeat Essential hypertension Cancer Alcohol use Thyroid disease Arthritis Back pain Gastric reflux History of IBS Former smoker Shortness of breath on exertion History of skin cancer Arthritis Hyperlipidemia Paroxysmal atrial fibrillation Surgical History History of cardiac catheterization History of hysteroscopy Hx of right cataract extraction Hx of left cataract extraction History of open reduction and internal fixation (ORIF) procedure Hx laparoscopic cholecystectomy History of bilateral breast reduction surgery History of left heart catheterization (10/11/21) H/O bilateral hip replacements H/O partial thyroidectomy Family History Father aortic aneurysm Heart disease Sister Seizures Brother coronary stent Hearing loss Heart disease Diabetes Mother Myocardial infarction Anesthesia complication Hearing loss Heart disease Social History (Reviewed 01/13/25 @ 13 (more content not included)... Normal [facility] Bone density reportOrdered B y: Trip Trista on 12-20-2024 Study report Skeletal system DXA [facility] [address] [place] [address] Dexa Bone Density/Append Skel MR#: [id number] Acct: [id number] Name: KAMRYN MUÑOZ Rep #: [id number] : 1945 F 79 From: Renee Weston MD PCP: Dian Duron NP-C Status: REG C LI Study:Dexa Bone Density/Append Skel Date of E xam: 12/19/24 Exam# [id number] Ordering Dr: Aquilino Duron FLIGHT STEWARD-C PROCEDURE: DEXA BONE DENSITY/APPEND SKEL 12/19/2024 REASON FOR EXAM: None provided. TECHNIQUE: DXA scan of the lumbar spine and left forearm, using [employer] W. REFERENCE LINKS: ISCD Adult Positions COMPARISON: Measurements obtained 09/13/2017 and 10/19/2022 are retained by the imaging unitfor comparison purposes however the images themselves are not available for comparison. FINDINGS: LUMBAR SPINE: Bone mineral denisty, L1-L3: 0.853 g/cm?, probably increased by bony hypertrophic degenerative changes. T-score: -1.5 LEFT FOREARM, 1/3 radius: Bone mineral denisty: 0.598 g/cm? T-score: -1.6 FRAX*: Not provided. *FRAX is a trademark of the [employer]'s [employer] for Metabolic Bone Disease, World Health Organization (WHO) Collaborating [place]. 1-Major Osteoporotic Fracture: Clinical Spine, Forearm, Hip or Shoulder. 2-The 10-year probability of fracture may be lower than reported if the patient has received treatment. The National Osteoporosis Foundation recommends that medical therapy be considered in postmenopausal women and men, age 50 and older, with a: * hip or vertebral fracture * T-score less than or equal to -2.5 in the spine or hip * T-score between -1.0 and -2.5 and FRAX equal to or less than 3 percent for hipfracture or equal to or less than 20 percent for major osteoporotic fracture. World Health Organization criteria for BMD interpretation classify patients as Normal (T-score at or above -1.0), Osteopenic (T-score between -1.0 and -2.5), or Osteoporotic (T-score at or below -2.5). BD/Dexa Bone Density/Append Skel IMPRESSION: 1. Osteopenia. 2. Since 10/19/2022 there has been no significant change in the bone mineral density of the LEFT forearm. Since 09/13/2017 there has been a 5.6% increase in the bone mineral density of the lumbar spine, however this could be related to degenerative changes. 3. Additional description as above. Reading Location: [id number] CC: REBA Duron ~ Card Room Manager: Signed [facility] Dexa Bone Density/Append Ske kian 12-19-2024 Dexa Bone Density/Append Skel [facility] Imaging Services [address] [place], [place] [id number] Dexa Bone Density/Append Skel MR#: [id number] Acct: [id number] Name: KAMRYN MUÑOZ Rep #: [id number] : 1945 F 79 From: Trip Weston MD PCP: REBA Joyner Status: REG CLI Study: Dexa Bone Density/Append Skel Date of Exam: Exam# [id number] Ordering Dr: Dian Duron PROCEDURE: DEXA BONE DENSITY/APPEND SKEL 12/19/2024 REASON FOR EXAM: None provided. TECHNIQUE: DXA scan of the lumbar spine and left forearm, using [employer] W. REFERENCE LINKS: ISCD Adult Positions COMPARISON: Measurements obtained 09/13/2017 and 10/19/2022 are retained by the imaging unit for comparison purposes however the images themselves are not available for comparison. FINDINGS: LUMBAR SPINE: Bone mineral denisty, L1-L3: 0.853 g/cm???, probably increased by bony hypertrophic degenerative changes. T-score: -1.5 LEFT FOREARM, 1/3 radius: Bone mineral denisty: 0.598 g/cm??? T-score: -1.6 FRAX*: Not provided. *FRAX is a trademark of the [employer]'s [place] for Metabolic Bone Disease, World Health Organization (WHO) Collaborating [place]. 1-Major Osteoporotic Fracture: Clinical Spine, Forearm, Hip or Shoulder. 2-The 10-year probability of fracture may be lower than reported if the patient has received treatment. The National Osteoporosis Foundation recommends that medical therapy be considered in postmenopausal women and men, age 50 and older, with a: * hip or vertebral fracture * T-score less than or equal to -2.5 in the spine or hip * T-score between -1.0 and -2.5 and FRAX equal to or less than 3 percent for hip fracture or equal to or less than 20 percent for major osteoporotic fracture. World Health Organization criteria for BMD interpretation classify patients as Normal (T-score at or above -1.0), Osteopenic (T-score between -1.0 and -2.5), or Osteoporotic (T-score at or below -2.5). BD/Dexa Bone Density/Append Skel IMPRESSION: 1. Osteopenia. 2. Since 10/19/2022 there has been no significant change in the bone mineral density of the LEFT forearm. Since 09/13/2017 there has been a 5.6% increase in the bone mineral density of the lumbar spine, however this could be related to degenerative changes. 3. Additional description as above. Reading Location: [id number] CC: REBA Duron Card Room Manager: Signed [facility] Breast imaging reportOrdered By: Wayne Rabago on 11-12-2024 Study report [facility] Imaging Services [address] [place] [address] SCRN MAMM (CAD)W/TYLOR BILAT MR#: [id number] Acct: [id number] Name: KAMRYN MUÑOZ Rep #: [id number] : 1945 F 79 From: Everette Rabago MD PCP: REBA Joyner Status: [facility] Study:SCRN MAMM (CAD)W/TYLOR BILAT Date of Exa m: 11/11/24 Exam# [id number] Ordering Dr: Aquilino Duron PROCEDURE: SCRN MAMM (CAD)W/TYLOR BILAT REASON FOR EXAM: F, Age 79 y/o, grandmother with breast cancer. History of prior bilateral breast reduction surgery. TECHNIQUE: Bilateral screening digital breast tomosynthesis with 2D and 3D images. Computeraided detection. COMPARISON: Prior exam(s) dating back to October 31, 2023.. FINDINGS: The breasts are almost entirely fatty. Stable small bilateral axillary lymph nodes. Stable examination. Stable calcified fibroadenoma in the left retro areolar region. No suspicious masses, areas of developing architectural distortion, or suspicious calcifications. BI/SCRN MAMM (CAD)W/TYLOR BILAT IMPRESSION: BI-RADS 2: BENIGN. RECOMMEND ANNUAL MAMMOGRAPHIC SCREENING. Follow-up code: Routine Follow-up The patient will be notified of the results by letter. Reading Location: [id number] CC: REBA Duron ~ Card Room Manager: Signed [facility] SCRN MAMM (CAD)W/TYLOR BILATo n 11-11-2024 SCRN MAMM (CAD)W/TYLOR BILAT [facility] Imaging Services [address] [place] [place], [place] [id number] SCRN MAMM (CAD)W/TYLOR BILAT MR#: [id number] Acct: [id number] Name: KAMRYN MUÑOZ Rep #: [id number] : 1945 F 79 From: Wayne blevins MD PCP: REBA Joyner Status: [facility] CLI Study: SCRN MAMM (CAD)W/TYLOR BILAT Date of Exam: 12/03 Exam# [id number] Ordering Dr: Dian Duron PROCEDURE: SCRN MAMM (CAD)W/TYLOR BILAT REASON FOR EXAM: F, Age 79 y/o, grandmother with breast cancer. History of prior bilateral breast reduction surgery. TECHNIQUE: Bilateral screening digital breast tomosynthesis with 2D and 3D images. Computer aided detection. COMPARISON: Prior exam(s) dating back to October 31, 2023.. FINDINGS: The breasts are almost entirely fatty. Stable small bilateral axillary lymph nodes. Stable examination. Stable calcified fibroadenoma in the left retro areolar region. No suspicious masses, areas of developing architectural distortion, or suspicious calcifications. BI/SCRN MAMM (CAD)W/TYLOR BILAT IMPRESSION: BI-RADS 2: BENIGN. RECOMMEND ANNUAL MAMMOGRAPHIC SCREENING. Follow-up code: Routine Follow-up The patient will be notified of the results by letter. Reading Location: [id number] CC: FLIGHT STEWARD-C Dian Duron Card Room Manager: Signed [facility] Surgery Visit Reporton 08-[address] [facility] [address] [place] [address]. [address] [place] [address] OFFICE VISIT Date of Service: 08/06/24 MR#: [id number] Acct: [id number] Name: SUDEEPKAMRYN ROY Rep #: [id number] : 1945 Provider: Dr. Bro douglass MD Age/Sex: 78/F Location: [facility] Status: Signed Intake Vital Signs 05/02/24 10:31 08/06/24 12:54 Height 5 ft 4 in 5 ft 5 in Weight: 231 lb BMI 38.4 BP 130/84 H Blood Pressure Location Rt brachial Position Sitting Respiration 18 Pulse 88 Pulse Source Monitor Temp 97.6 F L Temp Source Temporal Pulse Oximetry (%) 95 Oxygen Delivery Method room air Intake Visit Reasons: THYROID GOITER Chief Complaint: thyroid goiter Is patient in pain?: No Allergies Penicillins Allergy (Verified 08/06/24 12:55) Unknown pravastatin (From Pravachol) Allergy (Verified 08/06/24 12:55) Unknown simvastatin (From Zocor) Allergy (Verified 08/06/24 12:55) Unknown atorvastatin (From Lipitor) Adverse Reaction (Verified 08/06/24 12:55) Unknown Medications ???Medication ???Instructions ???Recorded ???Confirmed ???Type calcium 600 mg (as 1 cap PO DAILY 03/16/22 08/06/24 History carbonate)-vitamin D3 10 mcg (400 unit) capsule cranberry 500 mg capsule 500 mg PO DAILY 03/16/22 08/06/24 History lactobacillus combination no.4 3 3,000 mmu cells PO DAILY 03/16/22 08/06/24 History billion cell capsule (Probiotic) multivitamin 1 tab PO DAILY 03/16/22 08/06/24 History pitavastatin calcium 1 mg tablet 1 mg PO DAILY 03/16/22 08/06/24 History (Livalo) apixaban 5 mg tablet (Eliquis) 5 mg PO BID #180 tabs 11/02/23 08/06/24 Rx metoprolol succinate 50 mg 50 mg PO DAILY #90 tabs 11/02/23 08/06/24 Rx tablet,extended release 24 hr amlodipine 5 mg tablet 5 mg PO DAILY #90 tabs 11/30/23 08/06/24 Rx Have you fallen in the past year?: No PFSH Medical History Thyroid nodule Wears glasses Cluster headache Vertigo History of pain when walking History of echocardiogram History of stress test Hypertension Cardiology follow-up encounter History of irregular heartbeat Essential hypertension Cancer Alcohol use Thyroid disease Arthritis Back pain Gastric reflux History of IBS Former smoker Shortness of breath on exertion History of skin cancer Arthritis Hyperlipidemia Paroxysmal atrial fibrillation Surgical History History of cardiac catheterization History of hysteroscopy Hx of right cataract extraction Hx of left cataract extraction History of open reduction and internal fixation (ORIF) procedure Hx laparoscopic cholecystectomy History of bilateral breast reduction surgery History of left heart catheterization (10/11/21) H/O bilateral hip replacements H/O partial thyroidectomy Family History Father aortic aneurysm Heart disease Sister Seizures Brother coronary stent Hearing loss Heart disease Diabetes Mother Myocardial infarction Anesthesia complication Hearing loss Heart disease Social History household members: none current occupational status: retired Smoking Status: Former smoker alcohol intake: current alcohol intake frequency: a few times a month Alcohol type: wine substance use type: does not use caffeine: Yes Type: carbonated beverages what type of physical activity do you participate in: walking frequency: 1-2 times per week duration: 15-30 minutes/day seatbelt use: always do you feel safe at home: Yes HPI HPI HPI: Patient is a 78-year-old female who presents for evaluation of a left sided thyroid nodule versus mass adjacent to the thyroid. They are referred for surgical consultation from Ms. Dian Duron NP. This was discovered initially many years ago. At this point Mrs. Muñoz has a hard time recalling exact dates but estimates sometime between [address] Mojica operating on the left side after a concerning biopsy result. She recalls that Dr. Mojica left part of the thyroid and placed to protect the parathyroid glands. She also recalls that the final pathology was benign. She denies any postoperative issues. She shares that regrowth of this lobe was then noted in her about [address] Mccabe of endocrinology who suggested that the area would have to be removed at a later date. She notes that she has gone the last 17 years or so with it feeling thicker on the left side but feeling like she had incomplete information from the medical side of her care. They do not experience difficulty with swallowing. They do complain of a cough but share this is not new and it st (more content not included)... Normal [facility] Thyroidon 07-22-2024 Thyroid [facility] Imaging Services [address] [place] [address] Thyroid MR#: [id number] Acct: [id number] Name: KAMRYN MUÑOZ Rep #: [id number] : 1945 F 78 From: Donnell Bowman MD PCP: Dian Oliverio, FLIGHT STEWARD-C Status: REG CLI Study: Thyroid Date of Exam: 07/22/24 Exam# [id number] Ordering Dr: Bro Deleon MD [id number] STUDY: THYROID ULTRASOUND REASON FOR EXAM: Female, 78 years old. Mass within left side of the neck -- Left substernal extention TECHNIQUE: Ultrasound evaluation of the thyroid was performed with real-time and static petty-scale imaging. COMPARISON: 06/12/2024 FINDINGS: RIGHT LOBE: The right lobe of the thyroid gland measures 4.5 x 1.8 x 2.2 cm. There is a heterogeneous echotexture. Nodule 1: Shrinking (7 x 4 x 5 mm from 8 x 7 x 6 mm) solid hypoechoic wider than tall smoothly marginated nodule with no echogenic foci (TR 4) in the lateral right lobe consistent with an adenoma. Nodule 2: Shrinking (19 x 8 x 12 mm from 21 x 10 x 14 mm) cystic anechoic wider than tall smooth marginated nodule with no echogenic foci (TR 1) in the mid right lobe consistent with a colloid cyst. LEFT LOBE: The left lobe of the thyroid gland measures 8.0 x 3.0 x 4.5 cm. There is a heterogeneous echotexture. Nodule 3: No change in the 12 x 6 x 9 mm solid hypoechoic wider than tall smoothly marginated nodule with no echogenic foci (TR 4) and anterior left lobe and follow-up ultrasound is recommended in 1 year. ISTHMUS: The isthmus measures 3 mm thick. . The regional lymph nodes are normal. No change in the 5.5 x 3.8 x 4.1 cm heterogeneous mixed cystic and solid nodule in the left side of the neck adjacent to the thyroid gland. US/Thyroid IMPRESSION: Continued multinodular thyroid gland and follow-up ultrasound is recommended in one year. Continued heterogeneous mass in the left side neck adjacent to the thyroid gland. Electronically Signed: Donnell Bowman MD at 9:24 EST , CC: REBA Duron; Dr. Bro Deleon MD Card Room Manager: Signed [facility] Basophil percentageOrdered B y: Cassandra Franco on 10-02-2023 Chloride [Moles/Vol] 108 mmol/L 98-107 [facility] Glucose [Mass/Vol] 94 mg/dL 74-[address] [facility] Potassium [Moles/Vol] 3.9 mmol/L 3.5-5.1 [facility] Sodium [Moles/Vol] 141 mmol/L 136-[address] [facility] Laboratory - Chemistry and C hemistry - challengeOrdered By: Cassandra Franco on 10-02-2023 CO2 [Moles/Vol] 27.0 mmol/L 21.0-32.0 [facility] Urea nitrogen/Creatinine [Mass ratio] 21.0 mg/mg 10-20 [facility] No Panel InformationOrdered By: Cassandra Franco on 10-02-2023 Estimated Creatinine Clearance Calc 61.23 ml/min [facility] Estimated GFR (MDRD) Amer 77 mL/min >60 [facility] Comment on above: GFR Calc Estimated GFR (MDRD) Non-Af Amer 64 mL/min >60 [facility] Comment on above: Non- GFR Calc Serum or plasma calcium elidia urement (mass/volume)Ordered By: Cassandra Franco on 10-02-2023 Calcium [Mass/Vol] 9.7 mg/dL 8.5-10.[address] [facility] Serum or plasma creatinine m easurement (mass/volume)Ordered By: Cassandra Franco on 10-02-2023 Creatinine [Mass/Vol] 0.91 mg/dL 0.55-1.02 [facility] Comment on above: The validity of the calculated GFR & GFRAA in patients over 70 years has not been determined. Clinical correlation is essential. Serum or plasma urea nitroge n measurement (mass/volume)Ordered By: Cassandra Franco on 10-02-2023 Urea nitrogen [Mass/Vol] 19 mg/dL 7-18 [facility] Thin prep Papanicolaou smear with manual screeningOrdered By: Cassandra Salvador on 10-02-2023 Thin prep Papanicolaou smear with manual screening 6 5-15 [facility] Basophil percentageOrdered B y: Dian Duron on 08-28-2023 Basophil percentage < 1.0 mg/dL 0.55-1.02 [facility] Laboratory - Chemistry and C hemistry - challengeOrdered By: Dian Duron on 08-28-2023 CK [Catalytic activity/Vol] 48 U/L 26-192 [facility] No Panel InformationOrdered By: Dian Duron on 08-28-2023 Bedside Estimated GFR (eGFR) > 60.0000 mL/min >60 [facility] D-Dimer Quantitative (PE/DVT) 0.74 FEU/ug/m 0.27-0.49 [facility] Comment on above: D-Dimer ELEVATED (>0 .49): Additional studies and clinicalassessments are indicated to conclude diagnosis of:Deep Vein Thrombosis (DVT) or Pulmonary Embolism (PE)CRITICAL VALUE VERIFIED. CALLED TO BUCK CARR ([facility])08/28/23 1058 Lazarus Ruiz.RESULTS READ BACK BY SAME. Troponin I High Sensitivity 6 pg/mL 3.0-54.0 [facility] Comment on above: Please Note: [place] Units and Gender Specific Reference Ranges. For more information see Policy Stat Procedure [place] High Sensitivity Troponin (TNIH) and attachments. Serum or plasma C reactive p rotein measurement (mass/volume)Ordered By: Dian Duron on 08-28-2023 CRP [Mass/Vol] 3.19 mg/L 0.0-3.0 [facility] Comment on above: C-Reactive Protein ( CRP) provides useful information for thediagnosis, therapy and monitoring of inflammatory processesand associated diseases. For the evaluation of Relative Riskfor Cardiovascular Disease, a High Sensitivity CRP (HSCRP)should be ordered. Absolute lymphocyte countOrd ered By: Slade Lee on 06-24-2023 Lymphocytes Auto (Unsp spec) [#/Vol] 1.42 10*3/uL 0.83-4.51 [facility] Basophil percentageOrdered B y: Slade Lee on 06-24-2023 Basophils/100 WBC (Bld) 0.9 % 0-1 [facility] Bilirubin [Mass/Vol] 0.80 mg/dL 0.20-1.00 [facility] Comment on above: For patients on eltr ombopag therapy, use of Dimension [place] TBIL is not recommended. Chloride [Moles/Vol] 110 mmol/L 98-107 [facility] Eosinophils/100 WBC (Bld) 1.9 % 0-5 [facility] Glucose [Mass/Vol] 101 mg/dL 74-[address] [facility] Comment on above: Fasting Glucose resu lt from 100 to 125 mg/dL suggests IMPAIRED HOMEOSTASIS per A.D.A. criteria. Neutrophils (Bld) [#/Vol] 3.5 10*3/uL 2.0-7.7 [facility] Neutrophils/100 WBC (Bld) 61.7 % 47-70 [facility] Potassium [Moles/Vol] 3.7 mmol/L 3.5-5.1 [facility] Comment on above: Slight Hemolysis, Re sult may be falsely increased. Protein [Mass/Vol] 7.2 g/dL 6.4-8.[address] [facility] Sodium [Moles/Vol] 141 mmol/L 136-[address] [facility] WBC (Bld) [#/Vol] 5.7 10*3/uL 4.4-11.[address] [facility] Blood erythrocytes count (nu mber/volume)Ordered By: Slade Lee on 06-24-2023 RBC (Bld) [#/Vol] 4.77 10*6/uL 4.2-5.4 [facility] Blood hemoglobin measurement (mass/volume)Ordered By: Slade Lee on 06-24-2023 Hemoglobin (Bld) [Mass/Vol] 14.9 g/dL 12.0-15.0 [facility] Blood lymphocytes/100 leukoc ytesOrdered By: Slade Lee on 06-24-2023 Lymphocytes/100 WBC (Bld) 25.0 % 19-41 [facility] Blood monocytes/100 leukocyt esOrdered By: Slade Lee on 06-24-2023 Monocytes/100 WBC (Bld) 10.1 % 0-10 [facility] Blood platelet mean volumeOr dered By: Slade Lee on 06-24-2023 Platelet mean volume (Bld) [Entitic vol] 11.0 fL 6.2-12.0 [facility] Determination of erythrocyte mean corpuscular volume (MCV)Ordered By: Slade Lee on 06-24-2023 MCV (RBC) [Entitic vol] 95.4 fL 81-99 [facility] Direct bilirubinOrdered By: Slade Lee on 06-24-2023 Bilirubin.direct [Mass/Vol] 0.22 mg/dL 0.00-0.30 [facility] Hematocrit Auto (Bld) [Volum e fraction]Ordered By: Slade Lee on 06-24-2023 Hematocrit (Bld) [Volume fraction] 45.5 % 37-47 [facility] Laboratory - Chemistry and C hemistry - challengeOrdered By: Slade Lee on 06-24-2023 ALP [Catalytic activity/Vol] 97 U/L 45-117 [facility] ALT [Catalytic activity/Vol] 22 U/L 13-56 [facility] CO2 [Moles/Vol] 25.0 mmol/L 21.0-32.0 [facility] Globulin (S) [Mass/Vol] 3.9 g/dL 2.2-4.2 [facility] Lipase [Catalytic activity/Vol] 37 U/L 13-75 [facility] Comment on above: Please note:LIPASE r evised reference range effective 22. New Lipase methodology. Expected to produce lower values than the previous assay method. NEW Reference Range: 13 - 75 U/L Urea nitrogen/Creatinine [Mass ratio] 15.2 mg/mg 10-20 [facility] Laboratory - Hematology and Cell countsOrdered By: Slade Lee on 06-24-2023 Erythrocyte distribution width (RBC) [Entitic vol] 46.3 fL 35.1-43.9 [facility] Erythrocyte distribution width (RBC) [Ratio] 13.2 % 11.6-14.6 [facility] Immature granulocytes/100 WBC (Bld) 0.400 % 0.0-0.9 [facility] Comment on above: IG% - Immature Granu locytes (promyelocytes, myelocytes and metamyelocytes) > 1% indicates that a LEFT SHIFT is Present. MCH (RBC) [Entitic mass] 31.2 pg 27.0-32.0 [facility] Nucleated RBC/100 WBC (Bld) [Ratio] 0 % 0-5 [facility] MCHC Auto (RBC) [Mass/Vol]Or dered By: Slade Lee on 06-24-2023 MCHC (RBC) [Mass/Vol] 32.7 g/dL 32-36 [facility] No Panel InformationOrdered By: Slade Lee on 06-24-2023 Estimated Creatinine Clearance Calc 44.22 ml/min [facility] Estimated GFR (MDRD) Amer 76 mL/min >60 [facility] Comment on above: GFR Calc Estimated GFR (MDRD) Non-Af Amer 63 mL/min >60 [facility] Comment on above: Non- GFR Calc Troponin I High Sensitivity 6 pg/mL 3.0-54.0 [facility] Comment on above: Please Note: [place] Units and Gender Specific Reference Ranges. For more information see Policy Stat Procedure [place] High Sensitivity Troponin (TNIH) and attachments. Platelets bldOrdered By: Karl Lee on 06-24-2023 Platelets (Bld) [#/Vol] 246 10*3/uL 150-450 [facility] Serum or plasma albumin elidia urement (mass/volume)Ordered By: Slade Lee on 06-24-2023 Albumin [Mass/Vol] 3.3 g/dL 3.2-5.[address] [facility] Serum or plasma calcium elidia urement (mass/volume)Ordered By: Slade Lee on 06-24-2023 Calcium [Mass/Vol] 8.9 mg/dL 8.5-10.[address] [facility] Serum or plasma creatinine m easurement (mass/volume)Ordered By: Slade Lee on 06-24-2023 Creatinine [Mass/Vol] 0.92 mg/dL 0.55-1.02 [facility] Comment on above: The validity of the calculated GFR & GFRAA in patients over 70 years has not been determined. Clinical correlation is essential. Serum or plasma urea nitroge n measurement (mass/volume)Ordered By: Slade Jesus on 06-24-2023 Urea nitrogen [Mass/Vol] 14 mg/dL 7-18 [facility] Thin prep Papanicolaou smear with manual screeningOrdered By: Slade Lee on 06-24-2023 Thin prep Papanicolaou smear with manual screening 27 U/L 15-37 [facility] Comment on above: Slight Hemolysis, Re sult may be falsely increased. Thin prep Papanicolaou smear with manual screening 6 5-15 [facility] Absolute lymphocyte countOrd ered By: Dian Duron on 06-23-2023 Lymphocytes Auto (Unsp spec) [#/Vol] 0.96 10*3/uL 0.83-4.51 [facility] Basophil percentageOrdered B y: Dian Duron on 06-23-2023 Amylase [Catalytic activity/Vol] 55 U/L 25-115 [facility] Basophils/100 WBC (Bld) 0.5 % 0-1 [facility] Bilirubin [Mass/Vol] 1.00 mg/dL 0.20-1.00 [facility] Comment on above: For patients on eltr ombopag therapy, use of Dimension [place] TBIL is not recommended. Chloride [Moles/Vol] 105 mmol/L 98-107 [facility] Eosinophils/100 WBC (Bld) 0.7 % 0-5 [facility] Glucose [Mass/Vol] 108 mg/dL 74-[address] [facility] Comment on above: Fasting Glucose resu lt from 100 to 125 mg/dL suggests IMPAIRED HOMEOSTASIS per A.D.A. criteria. Neutrophils (Bld) [#/Vol] 4.4 10*3/uL 2.0-7.7 [facility] Neutrophils/100 WBC (Bld) 74.0 % 47-70 [facility] Potassium [Moles/Vol] 3.7 mmol/L 3.5-5.1 [facility] Protein [Mass/Vol] 7.2 g/dL 6.4-8.[address] [facility] Sodium [Moles/Vol] 143 mmol/L 136-[address] [facility] WBC (Bld) [#/Vol] 6.0 10*3/uL 4.4-11.[address] [facility] Blood erythrocytes count (nu mber/volume)Ordered By: Dian Duron on 06-23-2023 RBC (Bld) [#/Vol] 4.89 10*6/uL 4.2-5.4 [facility] Blood hemoglobin measurement (mass/volume)Ordered By: Dian Duron on 06-23-2023 Hemoglobin (Bld) [Mass/Vol] 15.8 g/dL 12.0-15.0 [facility] Blood lymphocytes/100 leukoc ytesOrdered By: Dian Duron on 06-23-2023 Lymphocytes/100 WBC (Bld) 16.1 % 19-41 [facility] Blood monocytes/100 leukocyt esOrdered By: Dian Duron on 06-23-2023 Monocytes/100 WBC (Bld) 8.2 % 0-10 [facility] Blood platelet mean volumeOr dered By: Dian Duron on 06-23-2023 Platelet mean volume (Bld) [Entitic vol] 10.9 fL 6.2-12.0 [facility] Determination of erythrocyte mean corpuscular volume (MCV)Ordered By: Dian Duron on 06-23-2023 MCV (RBC) [Entitic vol] 94.1 fL 81-99 [facility] Hematocrit Auto (Bld) [Volum e fraction]Ordered By: Dian Duron on 06-23-2023 Hematocrit (Bld) [Volume fraction] 46.0 % 37-47 [facility] Laboratory - Chemistry and C hemistry - challengeOrdered By: Dian Duron on 06-23-2023 ALP [Catalytic activity/Vol] 111 U/L 45-117 [facility] ALT [Catalytic activity/Vol] 23 U/L -56 [facility] CO2 [Moles/Vol] 28.0 mmol/L 21.0-32.0 [facility] Globulin (S) [Mass/Vol] 3.6 g/dL 2.2-4.2 [facility] Lipase [Catalytic activity/Vol] 34 U/L - [facility] Comment on above: Please note:LIPASE r evised reference range effective 22. New Lipase methodology. Expected to produce lower values than the previous assay method. NEW Reference Range: - 75 U/L Urea nitrogen/Creatinine [Mass ratio] 14.8 mg/mg 10-20 [facility] Laboratory - Hematology and Cell countsOrdered By: Dian Duron on 06-23-2023 Erythrocyte distribution width (RBC) [Entitic vol] 45.2 fL 35.1-43.9 [facility] Erythrocyte distribution width (RBC) [Ratio] 13.0 % 11.6-14.6 [facility] Immature granulocytes/100 WBC (Bld) 0.500 % 0.0-0.9 [facility] Comment on above: IG% - Immature Granu locytes (promyelocytes, myelocytes and metamyelocytes) > 1% indicates that a LEFT SHIFT is Present. MCH (RBC) [Entitic mass] 32.3 pg 27.0-32.0 [facility] Nucleated RBC/100 WBC (Bld) [Ratio] 0 % 0-5 [facility] MCHC Auto (RBC) [Mass/Vol]Or dered By: Dian Duron on 06-23-2023 MCHC (RBC) [Mass/Vol] 34.3 g/dL 32-36 [facility] No Panel InformationOrdered By: Dian Duron on 06-23-2023 Estimated GFR (MDRD) Amer 74 mL/min >60 [facility] Comment on above: GFR Calc Estimated GFR (MDRD) Non-Af Amer 61 mL/min >60 [facility] Comment on above: Non- GFR Calc Platelets bldOrdered By: Aleksandr Duron on 06-23-2023 Platelets (Bld) [#/Vol] 232 10*3/uL 150-450 [facility] Serum or plasma albumin elidia urement (mass/volume)Ordered By: Dian Duron on 06-23-2023 Albumin [Mass/Vol] 3.6 g/dL 3.2-5.[address] [facility] Serum or plasma albumin/glob ulin mass ratioOrdered By: Dian Duron on 06-23-2023 Albumin/Globulin [Mass ratio] 1.0 {ratio} 0.9-2.4 [facility] Serum or plasma calcium elidia urement (mass/volume)Ordered By: Dian Duron on 06-23-2023 Calcium [Mass/Vol] 9.0 mg/dL 8.5-10.[address] [facility] Serum or plasma creatinine m easurement (mass/volume)Ordered By: Dian Duron on 06-23-2023 Creatinine [Mass/Vol] 0.94 mg/dL 0.55-1.02 [facility] Comment on above: The validity of the calculated GFR & GFRAA in patients over 70 years has not been determined. Clinical correlation is essential. Serum or plasma urea nitroge n measurement (mass/volume)Ordered By: Dian Duron on 06-23-2023 Urea nitrogen [Mass/Vol] 14 mg/dL 7-18 [facility] Thin prep Papanicolaou smear with manual screeningOrdered By: Dian Duron on 06-23-2023 Thin prep Papanicolaou smear with manual screening 21 U/L 15-37 [facility] Thin prep Papanicolaou smear with manual screening 10 5-15 [facility] Urinalysis, Office ([id number])Or dered By: Krista Castillo on 06-23-2023 Bilirubin Ql (U) Negative Normal Com[facility]; [facility] Work Phone: Glucose Test strip (U) [Mass/Vol] Negative Normal [facility]; [facility] Work Phone: Hemoglobin Ql (U) Negative Normal Compreh ensive [facility]; [facility] Work Phone: Ketones Ql (U) Negative Normal [facility]; [facility] Work Phone: Leukocyte esterase Test strip Ql (U) Small Normal [facility]; [facility] Work Phone: Nitrite Ql (U) Negative Normal [facility]; [facility] Work Phone: pH (U) 5 [pH] Abnormal [facility]; [facility] Work Phone: Protein Ql (U) + Abnormal [facility]; [facility] Work Phone: Specific gravity (U) [Rel density] 1.030 1 Abnormal [facility]; [facility] Work Phone: Urobilinogen (24H U) [Mass/Time] Normal Normal [facility]; [facility] Work Phone: MICROALB;CREAT RATION, RAND UR ([id number])Ordered By: Certified Technician Specialist on 02-20-2023 Albumin DL <= 20 mg/L (U) [Mass/Vol] 24.3 ug/mL Normal [facility]; [facility] Work Phone: Albumin/Creatinine (U) [Mass ratio] 14 {mg/g_creat} Normal 0-29 [facility]; [facility] Work Phone: Creatinine (U) [Mass/Vol] 174.0 mg/dL Normal [facility]; [facility] Work Phone: CBC, PLATELETS & AUT DIFF ([phone])Ordered By: Certified Technician Specialist on 08-29-2022 Basophils (Bld) [#/Vol] 0.0 10*3/uL Normal 0.0-0.2 [facility]; [facility] Work Phone: Basophils/100 WBC (Bld) 1 % Normal [facility]; [facility] Work Phone: Eosinophils (Bld) [#/Vol] 0.1 10*3/uL Normal 0.0-0.4 [facility]; [facility] Work Phone: Eosinophils/100 WBC (Bld) 2 % Normal [facility]; [facility] Work Phone: Erythrocyte distribution width (RBC) [Ratio] 13.3 % Normal 11.7-15.4 [facility]; [facility] Work Phone: Hematocrit (Bld) [Volume fraction] 44.7 % Normal 34.0-46.6 [facility]; [facility] Work Phone: Hemoglobin (Bld) [Mass/Vol] 15.0 g/dL Normal 11.1-15.9 [facility]; [facility] Work Phone: Immature granulocytes (Bld) [#/Vol] 0.0 10*3/uL Normal 0.0-0.1 [facility]; [facility] Work Phone: Immature granulocytes/100 WBC (Bld) 1 % Normal [facility]; [facility] Work Phone: Lymphocytes (Bld) [#/Vol] 1.0 10*3/uL Normal 0.7-3.1 [facility]; [facility] Work Phone: Lymphocytes/100 WBC (Bld) 22 % Normal [facility]; [facility] Work Phone: MCH (RBC) [Entitic mass] 31.4 pg Normal 26.6-33.0 [facility]; [facility] Work Phone: MCHC (RBC) [Mass/Vol] 33.6 g/dL Normal 31.5-35.7 [facility] prehensive [facility]; [facility] Work Phone: MCV (RBC) [Entitic vol] 94 fL Normal 79-97 [facility]; [facility] Work Phone: Monocytes (Bld) [#/Vol] 0.5 10*3/uL Normal 0.1-0.9 [facility]; [facility] Work Phone: Monocytes/100 WBC (Bld) 11 % Normal [facility]; [facility] Work Phone: Neutrophils (Bld) [#/Vol] 3.0 10*3/uL Normal 1.4-7.0 [facility]; [facility] Work Phone: Neutrophils/100 WBC (Bld) 63 % Normal [facility]; [facility] Work Phone: Platelets (Bld) [#/Vol] 195 10*3/uL Normal 150-450 [facility]; [facility] Work Phone: RBC (Bld) [#/Vol] 4.77 10*6/uL Normal 3.77-5.28 [facility] ehensive [facility]; [facility] Work Phone: WBC (Bld) [#/Vol] 4.6 10*3/uL Normal 3.4-10.8 Compre hensive [facility]; [facility] Work Phone: FREE TRIIDOTHYRONINE (T3) ([phone])Ordered By: Certified Technician Specialist on 08-29-2022 Free T3 [Mass/Vol] 3.0 pg/mL Normal 2.0-4.4 [facility]; [facility] Work Phone: LIPID PANEL ([id number])Ordered B y: Certified Technician Specialist on 08-29-2022 Cholesterol [Mass/Vol] 176 mg/dL Normal 100-199 [facility]; [facility] Work Phone: Cholesterol in HDL [Mass/Vol] 65 mg/dL Normal [facility]; [facility] Work Phone: Triglyceride [Mass/Vol] 154 mg/dL Abnormal 0-149 [facility]; [facility] Work Phone: LIPID PANEL ([id number]) 26 mg/dL Normal 5-40 [facility]; [facility] Work Phone: LIPID PANEL ([id number]) 85 mg/dL Normal 0-99 [facility]; [facility] Work Phone: LIPID PANEL ([id number]) 1.3 {ratio} Normal 0.0-3.2 [facility]; [facility] Work Phone: METABOLIC PANEL, COMPREHENSI VE ([id number])Ordered By: Certified Technician Specialist on 08-29-2022 Albumin [Mass/Vol] 3.9 g/dL Normal 3.7-4.7 [facility]; [facility] Work Phone: Albumin/Globulin [Mass ratio] 1.6 {ratio} Normal 1.2-2.2 [facility]; [facility] Work Phone: ALP [Catalytic activity/Vol] 96 U/L Normal 44-121 [facility]; [facility] Work Phone: ALT [Catalytic activity/Vol] 15 U/L Normal 0-32 [facility]; [facility] Work Phone: AST [Catalytic activity/Vol] 22 U/L Normal 0-40 [facility]; [facility] Work Phone: Bilirubin [Mass/Vol] 0.7 mg/dL Normal 0.0-1.2 [facility] rehensive Internal Medicine; [facility] Work Phone: Calcium [Mass/Vol] 9.4 mg/dL Normal 8.7-10.3 [facility]; [facility] Work Phone: Chloride [Moles/Vol] 105 mmol/L Normal 96-106 [facility] Work Phone: CO2 [Moles/Vol] 25 mmol/L Normal 20-29 [facility]; [facility] Work Phone: Creatinine [Mass/Vol] 0.82 mg/dL Normal 0.57-1.00 [facility] Internal Medicine; [facility] Work Phone: Globulin (S) [Mass/Vol] 2.4 g/dL Normal 1.5-4.5 [facility]; [facility] Work Phone: Glucose [Mass/Vol] 89 mg/dL Normal 70-99 [facility]; [facility] Work Phone: Potassium [Moles/Vol] 4.1 mmol/L Normal 3.5-5.2 [facility] Internal [facility]; [facility] Work Phone: Protein [Mass/Vol] 6.3 g/dL Normal 6.0-8.5 [facility]; [facility] Work Phone: Sodium [Moles/Vol] 142 mmol/L Normal 134-144 [facility] Internal [facility]; [facility] Work Phone: Urea nitrogen [Mass/Vol] 15 mg/dL Normal 8-27 [facility]; [facility] Work Phone: Urea nitrogen/Creatinine [Mass ratio] 18 mg/mg Normal 12-28 [facility]; [facility] Work Phone: METABOLIC PANEL, COMPREHENSIVE ([id number]) 74 mL/min/1.73 Normal [facility] Internal [facility]; [facility] Work Phone: T4, FREE (THYROXINE) ([id number]) Ordered By: Certified Technician Specialist on 08-29-2022 Free T4 [Mass/Vol] 0.85 ng/dL Normal 0.82-1.77 [facility]; [facility] Work Phone: TSH (THYROID STIMULATING HOR CAM) ([id number])Ordered By: Certified Technician Specialist on 08-29-2022 TSH Qn 1.090 {uIU/mL} Normal 0.450-4.50 0 [facility]; [facility] Work Phone: Erythrocyte sedimentation ra grace 01-27-2022 ESR (Bld) [Velocity] 19 mm/h 0-30 [facility] Work Phone: No Panel Informationon 01-27 Estimated GFR (MDRD) Amer 80 mL/min >60 [facility] Work Phone: Comment on above: GFR Calc Estimated GFR (MDRD) Non-Af Amer 66 mL/min >60 [facility] Work Phone: Comment on above: Non- GFR Calc Serum or plasma C reactive p rotein measurement (mass/volume)on 01-27-2022 CRP [Mass/Vol] 3.98 mg/L 0.0-3.0 [facility] Work Phone: Comment on above: C-Reactive Protein ( CRP) provides useful information for thediagnosis, therapy and monitoring of inflammatory processesand associated diseases. For the evaluation of Relative Riskfor Cardiovascular Disease, a High Sensitivity CRP (HSCRP)should be ordered. Serum or plasma creatinine m easurement (mass/volume)on 01-27-2022 Creatinine [Mass/Vol] 0.88 mg/dL 0.55-1.02 [facility] Work Phone: Comment on above: The validity of the calculated GFR & GFRAA in patients over 70 years has not been determined. Clinical correlation is essential. Basophil percentageon 2021 Chloride [Moles/Vol] 107 mmol/L 98-107 [facility] Work Phone: Glucose [Mass/Vol] 108 mg/dL 74-[address] [facility] Work Phone: Comment on above: Fasting Glucose resu lt from 100 to 125 mg/dL suggests IMPAIRED HOMEOSTASIS per A.D.A. criteria. Potassium [Moles/Vol] 3.6 mmol/L 3.5-5.1 [facility] Work Phone: Sodium [Moles/Vol] 143 mmol/L 136-[address] [facility] Work Phone: WBC (Bld) [#/Vol] 6.6 10*3/uL 4.4-11.[address] [facility] Work Phone: Blood erythrocytes count (nu mber/volume)on 10-22-2021 RBC (Bld) [#/Vol] 4.39 10*6/uL 4.2-5.4 [facility] Work Phone: Blood hemoglobin measurement (mass/volume)on 10-22-2021 Hemoglobin (Bld) [Mass/Vol] 14.0 g/dL 12.0-15.0 [facility] Work Phone: Blood platelet mean volumeon 10-22-2021 Platelet mean volume (Bld) [Entitic vol] 10.7 fL 6.2-12.0 [facility] Work Phone: Determination of erythrocyte mean corpuscular volume (MCV)on 10-22-2021 MCV (RBC) [Entitic vol] 95.0 fL 81-99 [facility] Work Phone: Hematocrit Auto (Bld) [Volum e fraction]on 10-22-2021 Hematocrit (Bld) [Volume fraction] 41.7 % 37-47 [facility] Work Phone: Laboratory - Chemistry and C hemistry - challengeon 10-22-2021 CO2 [Moles/Vol] 30.0 mmol/L 21.0-32.0 [facility] Work Phone: Magnesium [Mass/Vol] 1.9 mg/dL [facility] Work Phone: Comment on above: Performed at: [address] [id number] Director: Itz Hartley PhD, Phone: [phone] T4 [Mass/Vol] 7.2 ug/dL 4.8-13.9 [facility] Work Phone: Urea nitrogen/Creatinine [Mass ratio] 21.4 mg/mg 10-20 [facility] Work Phone: Laboratory - Hematology and Cell countson 10-22-2021 Erythrocyte distribution width (RBC) [Entitic vol] 47.0 fL 35.1-43.9 [facility] Work Phone: Erythrocyte distribution width (RBC) [Ratio] 13.4 % 11.6-14.6 [facility] Work Phone: MCH (RBC) [Entitic mass] 31.9 pg 27.0-32.0 [facility] Work Phone: MCHC Auto (RBC) [Mass/Vol]on 10-22-2021 MCHC (RBC) [Mass/Vol] 33.6 g/dL 32-36 [facility] Work Phone: No Panel Informationon 10-22 Estimated GFR (MDRD) Amer 85 mL/min >60 [facility] Work Phone: Comment on above: GFR Calc Estimated GFR (MDRD) Non-Af Amer 70 mL/min >60 [facility] Work Phone: Comment on above: Non- GFR Calc Thyroid Stimulating Hormone (TSH) 0.53 uIU/mL 0.358-3.74 [facility] Work Phone: Platelets bldon 10-22-2021 Platelets (Bld) [#/Vol] 218 10*3/uL 150-450 [facility] Work Phone: Serum or plasma calcium elidia urement (mass/volume)on 10-22-2021 Calcium [Mass/Vol] 9.4 mg/dL 8.5-10.[address] [facility] Work Phone: Serum or plasma creatinine m easurement (mass/volume)on 10-22-2021 Creatinine [Mass/Vol] 0.84 mg/dL 0.55-1.02 [facility] Work Phone: Comment on above: The validity of the calculated GFR & GFRAA in patients over 70 years has not been determined. Clinical correlation is essential. Serum or plasma urea nitroge n measurement (mass/volume)on 10-22-2021 Urea nitrogen [Mass/Vol] 18 mg/dL 7-18 [facility] Work Phone: Thin prep Papanicolaou smear with manual screeningon 10-22-2021 Thin prep Papanicolaou smear with manual screening 6 5-15 [facility] Work Phone: LIPID PANEL ([id number])Ordered B y: Certified Technician Specialist on 08-19-2021 Cholesterol [Mass/Vol] 145 mg/dL Normal 100-199 [facility]; [facility] Work Phone: Cholesterol in HDL [Mass/Vol] 48 mg/dL Normal [facility]; [facility] Work Phone: Triglyceride [Mass/Vol] 100 mg/dL Normal 0-149 [facility]; [facility] Work Phone: LIPID PANEL ([id number]) 19 mg/dL Normal 5-40 [facility]; [facility] Work Phone: LIPID PANEL ([id number]) 78 mg/dL Normal 0-99 [facility]; [facility] Work Phone: LIPID PANEL ([id number]) 1.6 {ratio} Normal 0.0-3.2 [facility]; [facility] Work Phone: HPV Comprehensive ([id number])Ord ered By: Certified Technician Specialist on 05-26-2021 [facility] ([id number]) SPRCS Normal [facility]; [facility] Work Phone: HPV Comprehensive ([id number]) . Normal [facility]; [facility] Work Phone: HPV Comprehensive ([id number]) PAPSMR Normal [facility]; [facility] Work Phone: HPV Comprehensive ([id number]) Negative Normal [facility]; [facility] Work Phone: CBC, Platelets & Auto Diff ( [phone])Ordered By: Certified Technician Specialist on 05-11-2021 Basophils (Bld) [#/Vol] 0.0 10*3/uL Normal 0.0-0.2 [facility]; [facility] Work Phone: Basophils/100 WBC (Bld) 1 % Normal [facility]; [facility] Work Phone: Eosinophils (Bld) [#/Vol] 0.1 10*3/uL Normal 0.0-0.4 [facility]; [facility] Work Phone: Eosinophils/100 WBC (Bld) 2 % Normal [facility]; [facility] Work Phone: Erythrocyte distribution width (RBC) [Ratio] 13.0 % Normal 11.7-15.4 [facility]; [facility] Work Phone: Hematocrit (Bld) [Volume fraction] 45.4 % Normal 34.0-46.6 [facility]; [facility] Work Phone: Hemoglobin (Bld) [Mass/Vol] 15.0 g/dL Normal 11.1-15.9 [facility]; [facility] Work Phone: Immature granulocytes (Bld) [#/Vol] 0.1 10*3/uL Normal 0.0-0.1 [facility]; [facility] Work Phone: Immature granulocytes/100 WBC (Bld) 2 % Normal [facility]; [facility] Work Phone: Lymphocytes (Bld) [#/Vol] 0.9 10*3/uL Normal 0.7-3.1 [facility]; [facility] Work Phone: Lymphocytes/100 WBC (Bld) 16 % Normal [facility]; [facility] Work Phone: MCH (RBC) [Entitic mass] 31.1 pg Normal 26.6-33.0 [facility]; [facility] Work Phone: MCHC (RBC) [Mass/Vol] 33.0 g/dL Normal 31.5-35.7 [facility] pre[facility]; [facility] Work Phone: MCV (RBC) [Entitic vol] 94 fL Normal 79-97 [facility]; [facility] Work Phone: Monocytes (Bld) [#/Vol] 0.8 10*3/uL Normal 0.1-0.9 [facility]; [facility] Work Phone: Monocytes/100 WBC (Bld) 13 % Normal [facility]; [facility] Work Phone: Neutrophils (Bld) [#/Vol] 4.0 10*3/uL Normal 1.4-7.0 [facility]; [facility] Work Phone: Neutrophils/100 WBC (Bld) 66 % Normal [facility]; [facility] Work Phone: Platelets (Bld) [#/Vol] 200 10*3/uL Normal 150-450 [facility]; [facility] Work Phone: RBC (Bld) [#/Vol] 4.82 10*6/uL Normal 3.77-5.28 [facility] ehensive [facility]; [facility] Work Phone: WBC (Bld) [#/Vol] 5.9 10*3/uL Normal 3.4-10.[address] [facility] Work Phone: Metabolic Panel, Comprehensi ve ([id number])Ordered By: Certified Technician Specialist on 05-11-2021 Albumin [Mass/Vol] 4.2 g/dL Normal 3.7-4.7 [facility]; [facility] Work Phone: Albumin/Globulin [Mass ratio] 1.6 {ratio} Normal 1.2-2.2 [facility]; [facility] Work Phone: ALP [Catalytic activity/Vol] 104 U/L Normal 48-121 [facility]; [facility] Work Phone: ALT [Catalytic activity/Vol] 15 U/L Normal 0-32 [facility]; [facility] Work Phone: AST [Catalytic activity/Vol] 25 U/L Normal 0-40 [facility]; [facility] Work Phone: Bilirubin [Mass/Vol] 0.6 mg/dL Normal 0.0-1.2 [facility]; [facility] Work Phone: Calcium [Mass/Vol] 10.0 mg/dL Normal 8.7-10.3 [facility]; [facility] Work Phone: Chloride [Moles/Vol] 101 mmol/L Normal 96-106 [facility]; [facility] Work Phone: CO2 [Moles/Vol] 27 mmol/L Normal 20-29 [facility]; [facility] Work Phone: Creatinine [Mass/Vol] 0.95 mg/dL Normal 0.57-1.00 [facility]; [facility] Work Phone: GFR/1.73 sq M.predicted among blacks CKD-EPI (S/P/Bld) [Vol rate/Area] 68 mL/min/1.73 Normal [facility]; [facility] Work Phone: GFR/1.73 sq M.predicted among non-blacks CKD-EPI (S/P/Bld) [Vol rate/Area] 59 mL/min/1.73 Abnormal [facility]; [facility] Work Phone: Globulin (S) [Mass/Vol] 2.7 g/dL Normal 1.5-4.5 [facility]; [facility] Work Phone: Glucose [Mass/Vol] 90 mg/dL Normal 65-99 [facility]; [facility] Work Phone: Potassium [Moles/Vol] 4.3 mmol/L Normal 3.5-5.2 [facility]; [facility] Work Phone: Protein [Mass/Vol] 6.9 g/dL Normal 6.0-8.5 [facility]; [facility] Work Phone: Sodium [Moles/Vol] 139 mmol/L Normal 134-144 Compre hensive [facility]; [facility] Work Phone: Urea nitrogen [Mass/Vol] 15 mg/dL Normal 8-27 [facility]; [facility] Work Phone: Urea nitrogen/Creatinine [Mass ratio] 16 mg/mg Normal 12-28 [facility]; [facility] Work Phone: TSH ([id number])Ordered By: Coterae m Staffing Assistant on 05-11-2021 TSH Qn 0.737 {uIU/mL} Normal 0.450-4.50 0 [facility]; [facility] Work Phone: URINE ANTHONY CULTURE (MARIA T COL COUNT) ([id number])Ordered By: Certified Technician Specialist on 05-11-2021 Bacteria identified Cx Nom (U) Final report Normal [facility]; [facility] Work Phone: Bacteria identified Cx Nom (U) MUG Normal [facility]; [facility] Work Phone: Urinalysis, Office ([id number])Or dered By: Maria Luisa Villegas on 05-11-2021 Bilirubin Ql (U) + Abnormal Comprehe nsive [facility]; [facility] Work Phone: Glucose Test strip (U) [Mass/Vol] Negative Normal [facility]; [facility] Work Phone: Hemoglobin Ql (U) + Abnormal Compreh ensive [facility]; [facility] Work Phone: Ketones Ql (U) Small Normal [facility]; [facility] Work Phone: Leukocyte esterase Test strip Ql (U) Moderate Normal [facility]; [facility] Work Phone: Nitrite Ql (U) Negative Normal [facility]; [facility] Work Phone: pH (U) 5.0 [pH] Normal [facility]; [facility] Work Phone: Protein Ql (U) + Abnormal [facility]; [facility] Work Phone: Specific gravity (U) [Rel density] 1.030 1 Abnormal [facility]; [facility] Work Phone: Urobilinogen (24H U) [Mass/Time] Normal Normal [facility]; [facility] Work Phone: URINE ANTHONY CULTURE-IDENTIFICA TN ([id number])Ordered By: Certified Technician Specialist on 12-23-2020 Bacteria identified Cx Nom (U) Final report Normal [facility]; [facility] Work Phone: Comment on above: PERFORMED BY: [employer] [place] [id number] Information: SRC:UR Bacteria identified Cx Nom (U) MUG Normal [facility]; [facility] Work Phone: Comment on above: Mixed urogenital frida ra4,000 Colonies/mL PERFORMED BY: [employer] [place] [id number] Information: SRC:UR Urinalysis, Office ([id number])Or dered By: Preston Kang on 12-23-2020 Bilirubin Ql (U) + Abnormal Comprehe nsive Internal Medicine; [facility] Work Phone: Glucose Test strip (U) [Mass/Vol] Negative Normal [facility]; [facility] Work Phone: Glucose Test strip (U) [Mass/Vol] Negative Normal [facility]; [facility] Work Phone: Hemoglobin Ql (U) Negative Normal Compreh ensive Internal Medicine; [facility] Work Phone: Hemoglobin Ql (U) Negative Normal Compreh ensive Internal Medicine; [facility] Work Phone: Ketones Ql (U) Negative Normal [facility]; [facility] Work Phone: Ketones Ql (U) Negative Normal [facility]; [facility] Work Phone: Leukocyte esterase Test strip Ql (U) Large Normal [facility]; [facility] Work Phone: Nitrite Ql (U) Negative Normal [facility]; [facility] Work Phone: Nitrite Ql (U) Negative Normal [facility]; [facility] Work Phone: pH (U) 5 [pH] Abnormal [facility]; [facility] Work Phone: Protein Ql (U) + Abnormal [facility]; [facility] Work Phone: Specific gravity (U) [Rel density] 1.030 1 Abnormal [facility]; [facility] Work Phone: Urobilinogen (24H U) [Mass/Time] Normal Normal [facility]; [facility] Work Phone: CBC, Platelets & Auto Diff ( [phone])Ordered By: Certified Technician Specialist on 11-04-2020 Basophils (Bld) [#/Vol] 0.0 {x10E3/uL} Normal 0.0-0.2 [facility]; [facility] Work Phone: Comment on above: November 2020; PATIENT NOT FASTINGPERFORMED BY: [id number] [facility] [id number] Basophils (Bld) [#/Vol] 0.0 10*3/uL Normal 0.0-0.2 [facility]; [facility] Work Phone: Basophils/100 WBC (Bld) 1 % Normal [facility]; [facility] Work Phone: Comment on above: November 2020; PATIENT NOT FASTINGPERFORMED BY: [id number] [facility] [id number] Eosinophils (Bld) [#/Vol] 0.1 {x10E3/uL} Normal 0.0-0.4 [facility]; [facility] Work Phone: Comment on above: November 2020; PATIENT NOT FASTINGPERFORMED BY: Illumitex70 [facility] [id number] Eosinophils (Bld) [#/Vol] 0.1 10*3/uL Normal 0.0-0.4 [facility]; [facility] Work Phone: Eosinophils/100 WBC (Bld) 2 % Normal [facility]; [facility] Work Phone: Comment on above: November 2020; PATIENT NOT FASTINGPERFORMED BY: PATRIA Silverio6370 [address] [facility] [id number] Erythrocyte distribution width (RBC) [Ratio] 13.1 % Normal 11.7-15.4 [facility]; [facility] Work Phone: Comment on above: November 2020; PATIENT NOT FASTINGPERFORMED BY: PATRIA [facility] Pjkpnr0392 [address] [facility] [id number] Hematocrit (Bld) [Volume fraction] 44.2 % Normal 34.0-46.6 [facility]; [facility] Work Phone: Comment on above: November 2020; PATIENT NOT FASTINGPERFORMED BY: PATRIA [facility] Drcnxw6945 [address] [facility] [id number] Hemoglobin (Bld) [Mass/Vol] 14.9 g/dL Normal 11.1-15.9 [facility]; [facility] Work Phone: Comment on above: November 2020; PATIENT NOT FASTINGPERFORMED BY: PATRIA [facility] Yfcile6618 [address] [facility] [id number] Immature granulocytes (Bld) [#/Vol] 0.1 {x10E3/uL} Normal 0.0-0.1 [facility]; [facility] Work Phone: Comment on above: November 2020; PATIENT NOT FASTINGPERFORMED BY: CB [facility] Myldns3466 [address] [facility] [id number] Immature granulocytes (Bld) [#/Vol] 0.1 10*3/uL Normal 0.0-0.1 [facility]; [facility] Work Phone: Immature granulocytes/100 WBC (Bld) 1 % Normal [facility]; [facility] Work Phone: Comment on above: November 2020; PATIENT NOT FASTINGPERFORMED BY: CB [facility] Gtzhpi7495 [address] [facility] [id number] Lymphocytes (Bld) [#/Vol] 1.6 {x10E3/uL} Normal 0.7-3.1 [facility]; [facility] Work Phone: Comment on above: November 2020; PATIENT NOT FASTINGPERFORMED BY: PATRIA [facility] Gferoc[address] [facility] [place] [id number] Lymphocytes (Bld) [#/Vol] 1.6 10*3/uL Normal 0.7-3.1 [facility]; [facility] Work Phone: Lymphocytes/100 WBC (Bld) 29 % Normal [facility]; [facility] Work Phone: Comment on above: November 2020; PATIENT NOT FASTINGPERFORMED BY: CB [facility] Pcgigr1613 [address] [facility] [id number] MCH (RBC) [Entitic mass] 32.6 pg Normal 26.6-33.0 [facility]; [facility] Work Phone: Comment on above: November 2020; PATIENT NOT FASTINGPERFORMED BY: CB [facility] Jsmafa89[address] [facility] [place] [id number] MCHC (RBC) [Mass/Vol] 33.7 g/dL Normal 31.5-35.7 [facility] prehensive Internal Medicine; [facility] Work Phone: Comment on above: November 2020; PATIENT NOT FASTINGPERFORMED BY: CB [facility] Gdygzo[address] [facility] [place] [id number] MCV (RBC) [Entitic vol] 97 fL Normal 79-97 [facility]; [facility] Work Phone: Comment on above: November 2020; PATIENT NOT FASTINGPERFORMED BY: CB [facility] Wndtqm6[address] [facility] [place] [id number] Monocytes (Bld) [#/Vol] 0.6 {x10E3/uL} Normal 0.1-0.9 [facility]; [facility] Work Phone: Comment on above: November 2020; PATIENT NOT FASTINGPERFORMED BY: CB [facility] Mojgif5043 [address] [facility] [id number] Monocytes (Bld) [#/Vol] 0.6 10*3/uL Normal 0.1-0.9 [facility]; [facility] Work Phone: Monocytes/100 WBC (Bld) 10 % Normal [facility]; [facility] Work Phone: Comment on above: November 2020; PATIENT NOT FASTINGPERFORMED BY: PATRIA LabCodesiree SilverioQvjnfa67[address] [place] [id number] Neutrophils (Bld) [#/Vol] 3.1 {x10E3/uL} Normal 1.4-7.0 [facility] Internal Medicine; [facility] Work Phone: Comment on above: November 2020; PATIENT NOT FASTINGPERFORMED BY: PATRIA Silverio6370 [address] [facility] [place] [id number] Neutrophils (Bld) [#/Vol] 3.1 10*3/uL Normal 1.4-7.0 [facility] Internal Medicine; [facility] Work Phone: Neutrophils/100 WBC (Bld) 57 % Normal [facility] Internal Medicine; [facility] Work Phone: Comment on above: November 2020; PATIENT NOT FASTINGPERFORMED BY: PATRIA Silverio6370 [facility]At[facility] [id number] Platelets (Bld) [#/Vol] 186 {x10E3/uL} Normal 150-450 [facility] Internal Medicine; [facility] Work Phone: Comment on above: November 2020; PATIENT NOT FASTINGPERFORMED BY: PATRIA [facility] Stdahz1954 [facility] [place] [id number] Platelets (Bld) [#/Vol] 186 10*3/uL Normal 150-450 [facility] Internal Medicine; [facility] Work Phone: RBC (Bld) [#/Vol] 4.57 {x10E6/uL} Normal 3.77-5.28 [facility] Internal Medicine; [facility] Work Phone: Comment on above: CBC results reported were obtained after the specimen had been warmedto 37 degrees C. This may indicate the presence of Cold Agglutinins. November 2020; PATIENT NOT FASTINGPERFORMED BY: [id number] [employer]in [place] [id number] RBC (Bld) [#/Vol] 4.57 10*6/uL Normal 3.77-5.28 [facility]; [facility] Work Phone: WBC (Bld) [#/Vol] 5.5 {x10E3/uL} Normal 3.4-10.8 [facility]; [facility] Work Phone: Comment on above: November 2020; PATIENT NOT FASTINGPERFORMED BY: [id number] [employer]in [place] [id number] WBC (Bld) [#/Vol] 5.5 10*3/uL Normal 3.4-10.8 [facility] Internal Medicine; [facility] Work Phone: VITAMIN B12 AND FOLATES ([phone])Ordered By: Certified Technician Specialist on 11-04-2020 Cobalamin (Vitamin B12) [Mass/Vol] 749 pg/mL Normal 232-1245 [facility]; [facility] Work Phone: Comment on above: November 2020; PATIENT NOT FASTINGPERFORMED BY: [id number] [facility] [id number] Folate [Mass/Vol] 14.1 ng/mL Normal [facility]; [facility] Work Phone: Comment on above: A serum folate chago ntration of less than 3.1 ng/mL isconsidered to represent clinical deficiency. November 2020; PATIENT NOT FASTINGPERFORMED BY: [id number] [employer]in [place] [id number] CBC & PLATELETS (AUTO) ([id number] [id number])Ordered By: Certified Technician Specialist on 08-05-2020 Erythrocyte distribution width (RBC) [Ratio] 14.3 % Normal 11.7-15.4 [facility] Work Phone: Comment on above: PATIENT WAS FASTINGP ERFORMED BY: Illumitex70 [employer] [facility] [place] [id number] Hematocrit (Bld) [Volume fraction] 46.0 % Normal 34.0-46.6 [facility] Work Phone: Comment on above: PATIENT WAS FASTINGP ERFORMED BY: PATRIA [facility] Gmsfls4293 [facility] [id number] Hemoglobin (Bld) [Mass/Vol] 14.9 g/dL Normal 11.1-15.9 [facility] Work Phone: Comment on above: PATIENT WAS FASTINGP ERFORMED BY: PATRIA [facility] Xacglk0403 [facility] [id number] MCH (RBC) [Entitic mass] 32.2 pg Normal 26.6-33.0 [facility] Internal Medicine Work Phone: Comment on above: PATIENT WAS FASTINGP ERFORMED BY: PATRIA [facility] Bojmex3523 [facility] [id number] MCHC (RBC) [Mass/Vol] 32.4 g/dL Normal 31.5-35.7 [facility] Internal Medicine Work Phone: Comment on above: PATIENT WAS FASTINGP ERFORMED BY: PATRIA [facility] Fdfooh1571 [facility] [id number] MCV (RBC) [Entitic vol] 99 fL Abnormal 79-97 [facility] Internal Medicine Work Phone: Comment on above: PATIENT WAS FASTINGP ERFORMED BY: PATRIA [facility] Yewvfg0638 [facility] [id number] Platelets (Bld) [#/Vol] 187 {x10E3/uL} Normal 150-450 [facility] Work Phone: Comment on above: PATIENT WAS FASTINGP ERFORMED BY: PATRIA [facility] Auykhe7585 [facility] [id number] Platelets (Bld) [#/Vol] 187 10*3/uL Normal 150-450 [facility]; [facility] Work Phone: RBC (Bld) [#/Vol] 4.63 {x10E6/uL} Normal 3.77-5.28 [facility] Internal Medicine Work Phone: Comment on above: CBC results reported were obtained after the specimen had been warmedto 37 degrees C. This may indicate the presence of Cold Agglutinins. PATIENT WAS FASTINGP ERFORMED BY: InHomeVest6370 [facility] [id number] RBC (Bld) [#/Vol] 4.63 10*6/uL Normal 3.77-5.28 [facility] Internal Medicine; [facility] Work Phone: WBC (Bld) [#/Vol] 5.1 {x10E3/uL} Normal 3.4-10.8 [facility] Internal Medicine Work Phone: Comment on above: Verified by repeat analysis PATIENT WAS FASTINGP ERFORMED BY: InHomeVest6370 [facility] [id number] WBC (Bld) [#/Vol] 5.1 10*3/uL Normal 3.4-10.8 [facility] Internal Medicine; [facility] Work Phone: HEPATITIS C ANTIBODY ([id number]) Ordered By: Certified Technician Specialist on 08-05-2020 HCV Ab Signal/Cutoff IA [Rel units/Vol] {ratio} Normal 0.0-0.9 [facility] Internal Medicine Work Phone: Comment on above: Negative: < 0.8 Inde terminate: 0.8 - 0.9 Positive: > 0.9 . The CDC recommends that a positive HCV antibody result be followed up with a HCV Nucleic Acid Amplification test (685456). 05-13-2020 please draw with next blood draw; PATIENT WAS FASTINGPERFORMED BY: InHomeVest6370 [facility] [id number] HCV Ab Signal/Cutoff IA [Rel units/Vol] {ratio} Normal 0.0-0.9 [facility] Internal Medicine; [facility] Work Phone: LIPID PANEL ([id number])Ordered B y: Certified Technician Specialist on 08-05-2020 Cholesterol [Mass/Vol] 176 mg/dL Normal 100-199 [facility] Internal Medicine Work Phone: Comment on above: PATIENT WAS FASTINGP ERFORMED BY: PATRIA LabCodesiree Szmttq[address] [facility] [place] [id number] Cholesterol in HDL [Mass/Vol] 58 mg/dL Normal [facility] Work Phone: Comment on above: PATIENT WAS FASTINGP ERFORMED BY: PATRIA LabCodesiree AlvarezQvcsuj[address] [facility] [place] [id number] Cholesterol in LDL/Cholesterol in HDL [Mass ratio] 1.5 {ratio} Normal 0.0-3.2 [facility] Work Phone: Comment on above: LDL/HDL Ratio Men Wo men 1/2 Avg.Risk 1.0 1.5 Avg.Risk 3.6 3.2 2X Avg.Risk 6.2 5.0 3X Avg.Risk 8.0 6.1 PATIENT WAS FASTINGP ERFORMED BY: PATRIA LabCodesiree AlvarezOkqpfu4478 [facility] [id number] Triglyceride [Mass/Vol] 184 mg/dL Abnormal 0-149 [facility] Work Phone: Comment on above: PATIENT WAS FASTINGP ERFORMED BY: PATRIA LabCodesiree Qrixev8206 [facility] [id number] LIPID PANEL (48827) 87 mg/dL Normal 0-99 [facility] Internal Medicine Work Phone: Comment on above: PATIENT WAS FASTINGP ERFORMED BY: PATRIA [facility] Pithwp2437 [facility] [id number] LIPID PANEL (16440) 31 mg/dL Normal 5-40 [facility] Work Phone: Comment on above: PATIENT WAS FASTINGP ERFORMED BY: PATRIA [facility] Vvcpca8221 [facility] [id number] LIPID PANEL (57652) 1.5 {ratio} Normal 0.0-3.2 [facility]; [facility] Work Phone: METABOLIC PANEL, COMPREHENSI VE (88899)Ordered By: Certified Technician Specialist on 08-05-2020 Albumin [Mass/Vol] 3.8 g/dL Normal 3.7-4.7 [facility] Internal Medicine Work Phone: Comment on above: PATIENT WAS FASTINGP ERFORMED BY: PATRIA [facility] Acojua4863 [address] RoadDublin [place] [id number] Albumin/Globulin [Mass ratio] 1.5 {ratio} Normal 1.2-2.2 [facility] Work Phone: Comment on above: PATIENT WAS FASTINGP ERFORMED BY: CB [facility] Pwwdpm4878 [address]Dublin [place] [id number] ALP [Catalytic activity/Vol] 96 [iU]/L Normal 39-117 [facility] Work Phone: Comment on above: PATIENT WAS FASTINGP ERFORMED BY: PATRIA [facility] Mlgvud4990 [address] RoadDublin [place] [id number] ALP [Catalytic activity/Vol] 96 U/L Normal 39-117 [facility]; [facility] Work Phone: ALT [Catalytic activity/Vol] 13 [iU]/L Normal 0-32 [facility] Work Phone: Comment on above: PATIENT WAS FASTINGP ERFORMED BY: PATRIA [facility] Pwqgqa9144 [address]Dublin [place] [id number] ALT [Catalytic activity/Vol] 13 U/L Normal 0-32 [facility]; [facility] Work Phone: AST [Catalytic activity/Vol] 22 [iU]/L Normal 0-40 [facility] Work Phone: Comment on above: PATIENT WAS FASTINGP ERFORMED BY: PATRIA [facility] Dfxzuv5340 [address]Dublin [place] [id number] AST [Catalytic activity/Vol] 22 U/L Normal 0-40 [facility]; [facility] Work Phone: Bilirubin [Mass/Vol] 0.6 mg/dL Normal 0.0-1.2 [facility] Internal Medicine Work Phone: Comment on above: PATIENT WAS FASTINGP ERFORMED BY: PATRIA [facility] Ygkijk5267 [address]Dublin [place] [id number] Calcium [Mass/Vol] 8.9 mg/dL Normal 8.7-10.3 [facility] Internal Medicine Work Phone: Comment on above: PATIENT WAS FASTINGP ERFORMED BY: PATRIA [facility] Npznfy2762 [address]Dublin [place] [id number] Chloride [Moles/Vol] 104 mmol/L Normal 96-106 [facility] Work Phone: Comment on above: PATIENT WAS FASTINGP ERFORMED BY: CB [facility] Ysdffe7021 [address]Dublin [place] [id number] CO2 [Moles/Vol] 26 mmol/L Normal 20-29 [facility] Internal Medicine Work Phone: Comment on above: PATIENT WAS FASTINGP ERFORMED BY: PATRIA [facility] Yaalth0931 [address]Dublin [place] [id number] Creatinine [Mass/Vol] 0.90 mg/dL Normal 0.57-1.00 [facility] Internal Medicine Work Phone: Comment on above: PATIENT WAS FASTINGP ERFORMED BY: PATRIA [facility] Mfgavy6645 [address] [place] [id number] GFR/1.73 sq M predicted among blacks CKD-EPI (S/P/Bld) [Vol rate/Area] 73 mL/min/1.73 Normal [facility] Work Phone: Comment on above: PATIENT WAS FASTINGP ERFORMED BY: PATRIA [facility] Utmwzq6289 [address] [place] [id number] GFR/1.73 sq M predicted among non-blacks CKD-EPI (S/P/Bld) [Vol rate/Area] 63 mL/min/1.73 Normal [facility] Work Phone: Comment on above: PATIENT WAS FASTINGP ERFORMED BY: PATRIA [facility] Bngzel4543 [address] [place] [id number] Globulin (S) [Mass/Vol] 2.6 g/dL Normal 1.5-4.5 [facility] Work Phone: Comment on above: PATIENT WAS FASTINGP ERFORMED BY: CB [facility] Tjatca2875 [address]Dublin [place] [id number] Glucose [Mass/Vol] 90 mg/dL Normal 65-99 [facility] Internal Medicine Work Phone: Comment on above: PATIENT WAS FASTINGP ERFORMED BY: PATRIA [facility] Psbnti7530 [address]Dublin [place] [id number] Potassium [Moles/Vol] 4.1 mmol/L Normal 3.5-5.2 [facility] Internal Medicine Work Phone: Comment on above: PATIENT WAS FASTINGP ERFORMED BY: CB [facility] Fnliqz0543 [address]Dublin [place] [id number] Protein [Mass/Vol] 6.4 g/dL Normal 6.0-8.5 [facility] Internal Medicine Work Phone: Comment on above: PATIENT WAS FASTINGP ERFORMED BY: PATRIA [facility] Azthzz8322 [address] [place] [id number] Sodium [Moles/Vol] 143 mmol/L Normal 134-144 [facility] Internal Medicine Work Phone: Comment on above: PATIENT WAS FASTINGP ERFORMED BY: PATRIA [facility] Zoslbc5577 [address] Roadblin [place] [id number] Urea nitrogen [Mass/Vol] 16 mg/dL Normal 8-27 [facility] Internal Medicine Work Phone: Comment on above: PATIENT WAS FASTINGP ERFORMED BY: [facility] Htjtpi2964 [address] [place] [id number] Urea nitrogen/Creatinine [Mass ratio] 18 mg/mg Normal 12-28 [facility] Internal Medicine Work Phone: Comment on above: PATIENT WAS FASTINGP ERFORMED BY: [facility] Bsjihq9139 [address] [facility]bl[facility] [place] [id number] TSH (THYROID STIMULATING HOR CAM) ([id number])Ordered By: Certified Technician Specialist on 08-05-2020 TSH Qn 1.270 {uIU/mL} Normal 0.450-4.50 0 [facility] Internal Medicine Work Phone: Comment on above: PATIENT WAS FASTINGP ERFORMED BY: [facility] Qagslb8690 [address]Dublin [place] [id number] CBC, PLATELETS & AUT DIFF ([id number])Ordered By: Certified Technician Specialist on 02-06-2020 Basophils (Bld) [#/Vol] 0.0 {x10E3/uL} Normal 0.0-0.2 [facility] Work Phone: Comment on above: PATIENT WAS FASTINGP ERFORMED BY: PATRIA LabChildren[facility] Qayiou3045 [facility] [id number] Basophils (Bld) [#/Vol] 0.0 10*3/uL Normal 0.0-0.2 [facility]; [facility] Work Phone: Basophils/100 WBC (Bld) 0 % Normal [facility] Work Phone: Comment on above: PATIENT WAS FASTINGP ERFORMED BY: PATRIA LabChildren[facility] Oosbmq0547 [facility] [id number] Eosinophils (Bld) [#/Vol] 0.1 {x10E3/uL} Normal 0.0-0.4 [facility] Work Phone: Comment on above: PATIENT WAS FASTINGP ERFORMED BY: PATRIA [facility]University [facility]6[address] [facility] [id number] Eosinophils (Bld) [#/Vol] 0.1 10*3/uL Normal 0.0-0.4 [facility]; [facility] Work Phone: Eosinophils/100 WBC (Bld) 2 % Normal [facility] Work Phone: Comment on above: PATIENT WAS FASTINGP ERFORMED BY: [facility]University [facility]6370 [facility] [id number] Erythrocyte distribution width (RBC) [Ratio] 14.0 % Normal 11.7-15.4 [facility] Work Phone: Comment on above: PATIENT WAS FASTINGP ERFORMED BY: PATRIA LabCoJFK Medical CenterUtlttd7926 [facility] [id number] Hematocrit (Bld) [Volume fraction] 45.1 % Normal 34.0-46.6 [facility] Work Phone: Comment on above: PATIENT WAS FASTINGP ERFORMED BY: [facility] [facility]in [place] [id number] Hemoglobin (Bld) [Mass/Vol] 14.7 g/dL Normal 11.1-15.9 [facility] Work Phone: Comment on above: PATIENT WAS FASTINGP ERFORMED BY: [facility] [facility]in [place] [id number] Immature granulocytes (Bld) [#/Vol] 0.0 {x10E3/uL} Normal 0.0-0.1 [facility] Work Phone: Comment on above: PATIENT WAS FASTINGP ERFORMED BY: [facility] [facility]in [place] [id number] Immature granulocytes (Bld) [#/Vol] 0.0 10*3/uL Normal 0.0-0.1 [facility]; [facility] Work Phone: Immature granulocytes/100 WBC (Bld) 0 % Normal [facility] Work Phone: Comment on above: PATIENT WAS FASTINGP ERFORMED BY: [facility]6[address] [facility] [id number] Lymphocytes (Bld) [#/Vol] 1.4 {x10E3/uL} Normal 0.7-3.1 [facility] Work Phone: Comment on above: PATIENT WAS FASTINGP ERFORMED BY: [facility] [facility]in [place] [id number] Lymphocytes (Bld) [#/Vol] 1.4 10*3/uL Normal 0.7-3.1 [facility]; [facility] Work Phone: Lymphocytes/100 WBC (Bld) 26 % Normal [facility] Work Phone: Comment on above: PATIENT WAS FASTINGP ERFORMED BY: LabUniversity [facility]6370 [address] [facility]bl[facility] [place] [id number] MCH (RBC) [Entitic mass] 32.0 pg Normal 26.6-33.0 [facility] Work Phone: Comment on above: PATIENT WAS FASTINGP ERFORMED BY: PATRIA [facility] Jodelj2252 [facility] [id number] MCHC (RBC) [Mass/Vol] 32.6 g/dL Normal 31.5-35.7 [facility] Work Phone: Comment on above: PATIENT WAS FASTINGP ERFORMED BY: [facility]University [facility]6[address] [facility] [id number] MCV (RBC) [Entitic vol] 98 fL Abnormal 79-97 [facility] Work Phone: Comment on above: PATIENT WAS FASTINGP ERFORMED BY: [facility] [facility] [id number] Monocytes (Bld) [#/Vol] 0.6 {x10E3/uL} Normal 0.1-0.9 [facility] Work Phone: Comment on above: PATIENT WAS FASTINGP ERFORMED BY: [facility]University [facility]6[address] [facility] [id number] Monocytes (Bld) [#/Vol] 0.6 10*3/uL Normal 0.1-0.9 [facility]; [facility] Work Phone: Monocytes/100 WBC (Bld) 11 % Normal [facility] Work Phone: Comment on above: PATIENT WAS FASTINGP ERFORMED BY: [facility] [facility] [id number] Neutrophils (Bld) [#/Vol] 3.4 {x10E3/uL} Normal 1.4-7.0 [facility] Work Phone: Comment on above: PATIENT WAS FASTINGP ERFORMED BY: LabCo Ouktni[address] [facility] Hospitalblin [place] [id number] Neutrophils (Bld) [#/Vol] 3.4 10*3/uL Normal 1.4-7.0 [facility]; [facility] Work Phone: Neutrophils/100 WBC (Bld) 61 % Normal [facility] Work Phone: Comment on above: PATIENT WAS FASTINGP ERFORMED BY: PATRIA [facility]Children[facility] Wugmep0722 [facility] [id number] Platelets (Bld) [#/Vol] 171 {x10E3/uL} Normal 150-450 [facility] Work Phone: Comment on above: PATIENT WAS FASTINGP ERFORMED BY: [facility]Children[facility] Ntlodl0372 [facility] [id number] Platelets (Bld) [#/Vol] 171 10*3/uL Normal 150-450 [facility] Internal Medicine; [facility] Work Phone: RBC (Bld) [#/Vol] 4.59 {x10E6/uL} Normal 3.77-5.28 [facility] Internal Medicine Work Phone: Comment on above: CBC results reported were obtained after the specimen had been warmedto 37 degrees C. This may indicate the presence of Cold Agglutinins. PATIENT WAS FASTINGP ERFORMED BY: PATRIA [facility] Cbwpem6194 [facility] [id number] RBC (Bld) [#/Vol] 4.59 10*6/uL Normal 3.77-5.28 [facility] Internal Medicine; [facility] Work Phone: WBC (Bld) [#/Vol] 5.6 {x10E3/uL} Normal 3.4-10.8 [facility] Internal Medicine Work Phone: Comment on above: Verified by repeat analysis PATIENT WAS FASTINGP ERFORMED BY: [facility] [facility] [id number] WBC (Bld) [#/Vol] 5.6 10*3/uL Normal 3.4-10.8 [facility] Internal Medicine; [facility] Work Phone: LIPID PANEL ([id number])Ordered B y: Certified Technician Specialist on 02-06-2020 Cholesterol [Mass/Vol] 183 mg/dL Normal 100-199 [facility] Work Phone: Comment on above: PATIENT WAS FASTINGP ERFORMED BY: LabMark [place] [id number] [facility] [id number] Cholesterol in HDL [Mass/Vol] 65 mg/dL Normal [facility] Work Phone: Comment on above: PATIENT WAS FASTINGP ERFORMED BY: PATRIA Santo Alvarezlin6370 [facility] [id number] Cholesterol in LDL [Mass/Vol] 94 mg/dL Normal 0-99 [facility] Work Phone: Comment on above: PATIENT WAS FASTINGP ERFORMED BY: PATRIA Dagoberto Mpkhyd6284 [facility] [id number] Cholesterol in LDL/Cholesterol in HDL [Mass ratio] 1.4 {ratio} Normal 0.0-3.2 [facility] Work Phone: Comment on above: LDL/HDL Ratio Men Wo men 1/2 Avg.Risk 1.0 1.5 Avg.Risk 3.6 3.2 2X Avg.Risk 6.2 5.0 3X Avg.Risk 8.0 6.1 PATIENT WAS FASTINGP ERFORMED BY: PATRIA [facility]6[address] [facility] [id number] Cholesterol in VLDL [Mass/Vol] 24 mg/dL Normal 5-40 [facility] Work Phone: Comment on above: PATIENT WAS FASTINGP ERFORMED BY: PATRIA Dagoberto Igctyi6624 [facility] [id number] Triglyceride [Mass/Vol] 118 mg/dL Normal 0-149 [facility] Work Phone: Comment on above: PATIENT WAS FASTINGP ERFORMED BY: [facility] [facility] [id number] METABOLIC PANEL, COMPREHENSI VE ([id number])Ordered By: Certified Technician Specialist on 02-06-2020 Albumin [Mass/Vol] 4.2 g/dL Normal 3.7-4.7 [facility] Internal Medicine Work Phone: Comment on above: PATIENT WAS FASTINGP ERFORMED BY: [facility] [facility] [id number] Albumin/Globulin [Mass ratio] 1.8 {ratio} Normal 1.2-2.2 [facility] Work Phone: Comment on above: PATIENT WAS FASTINGP ERFORMED BY: PATRIA LabCodesiree AlvarezZxlcxf8229 Mc[address] RoadDublin [place] [id number] ALP [Catalytic activity/Vol] 85 [iU]/L Normal 39-117 [facility] Work Phone: Comment on above: PATIENT WAS FASTINGP ERFORMED BY: PATRIA [facility] Vmfiqi8721 [address] RoadDublin [place] [id number] ALP [Catalytic activity/Vol] 85 U/L Normal 39-117 [facility]; [facility] Work Phone: ALT [Catalytic activity/Vol] 13 [iU]/L Normal 0-32 [facility] Work Phone: Comment on above: PATIENT WAS FASTINGP ERFORMED BY: PATRIA LabCodesiree AlvarezEbubho4729 [address] RoadDublin [place] [id number] ALT [Catalytic activity/Vol] 13 U/L Normal 0-32 [facility]; [facility] Work Phone: AST [Catalytic activity/Vol] 27 [iU]/L Normal 0-40 [facility] Work Phone: Comment on above: PATIENT WAS FASTINGP ERFORMED BY: PATRIA LuisRegina AlvarezMoncck7622 [address] RoadDublin [place] [id number] AST [Catalytic activity/Vol] 27 U/L Normal 0-40 [facility]; [facility] Work Phone: Bilirubin [Mass/Vol] 0.4 mg/dL Normal 0.0-1.2 [facility] Internal Medicine Work Phone: Comment on above: PATIENT WAS FASTINGP ERFORMED BY: PATRIA [facility] Sdbtnt3809 [address] RoadDublin [place] [id number] Calcium [Mass/Vol] 9.0 mg/dL Normal 8.7-10.3 [facility] Internal Medicine Work Phone: Comment on above: PATIENT WAS FASTINGP ERFORMED BY: PATRIA [facility] Imlifc9859 [address] RoadDublin [place] [id number] Chloride [Moles/Vol] 105 mmol/L Normal 96-106 [facility] Work Phone: Comment on above: PATIENT WAS FASTINGP ERFORMED BY: CB [facility] Jqhopu1582 [address] Roadblin [place] [id number] CO2 [Moles/Vol] 21 mmol/L Normal 20-29 [facility] Internal Medicine Work Phone: Comment on above: PATIENT WAS FASTINGP ERFORMED BY: CB [facility] Pttmmb[address] [facility] [id number] Creatinine [Mass/Vol] 0.82 mg/dL Normal 0.57-1.00 [facility] Internal Medicine Work Phone: Comment on above: PATIENT WAS FASTINGP ERFORMED BY: CB LabCo Mxddzv[address] [facility] [id number] GFR/1.73 sq M predicted among blacks CKD-EPI (S/P/Bld) [Vol rate/Area] 82 mL/min/1.73 Normal [facility] Work Phone: Comment on above: PATIENT WAS FASTINGP ERFORMED BY: LabCo Udvljy1769 Mcguire RoadAtrium Health Union West [id number] GFR/1.73 sq M predicted among non-blacks CKD-EPI (S/P/Bld) [Vol rate/Area] 71 mL/min/1.73 Normal [facility] Work Phone: Comment on above: PATIENT WAS FASTINGP ERFORMED BY: CB [facility] Nxumqj[address] [facility] [id number] Globulin (S) [Mass/Vol] 2.3 g/dL Normal 1.5-4.5 [facility] Internal Medicine Work Phone: Comment on above: PATIENT WAS FASTINGP ERFORMED BY: CB [facility] Nwsywq[address] [facility] Hospitalblin [place] [id number] Glucose [Mass/Vol] 93 mg/dL Normal 65-99 [facility] Internal Medicine Work Phone: Comment on above: PATIENT WAS FASTINGP ERFORMED BY: CB [facility] Rlpfyx[address] [facility] [id number] Potassium [Moles/Vol] 4.1 mmol/L Normal 3.5-5.2 [facility] Internal Medicine Work Phone: Comment on above: PATIENT WAS FASTINGP ERFORMED BY: PATRIA Dagoberto Npujdz5131 [address] RoadDublin [place] [id number] Protein [Mass/Vol] 6.5 g/dL Normal 6.0-8.5 [facility] Internal Medicine Work Phone: Comment on above: PATIENT WAS FASTINGP ERFORMED BY: PATRIA LabChildren[facility] Ihbqzn5561 [address] Roadblin [place] [id number] Sodium [Moles/Vol] 144 mmol/L Normal 134-144 [facility] Internal Medicine Work Phone: Comment on above: PATIENT WAS FASTINGP ERFORMED BY: PATRIA LabChildren[facility] Ypxovr1964 [address] Roadblin [place] [id number] Urea nitrogen [Mass/Vol] 19 mg/dL Normal 8- [facility] Internal Medicine Work Phone: Comment on above: PATIENT WAS FASTINGP ERFORMED BY: PATRIA LabChildren[facility] Jqdcik5542 [address] Roadblin [place] [id number] Urea nitrogen/Creatinine [Mass ratio] 23 mg/mg Normal 09-07 [facility] Internal Medicine Work Phone: Comment on above: PATIENT WAS FASTINGP ERFORMED BY: PATRIA LabChildren[facility] Nthfla3972 [address] Roadblin [place] [id number] TSH (THYROID STIMULATING HOR CAM) ([id number])Ordered By: Certified Technician Specialist on 02-06-2020 TSH Qn 1.220 {uIU/mL} Normal 0.450-4.50 0 [facility] Work Phone: Comment on above: PATIENT WAS FASTINGP ERFORMED BY: PATRIA Lab[facility] Etecbe3954 [address] RoadDublin [place] [id number] VITAMIN B12 AND FOLATES (826 07)Ordered By: Certified Technician Specialist on 08-06-2018 Cobalamin (Vitamin B12) [Mass/Vol] 593 pg/mL Normal 232-1245 [facility] Work Phone: Comment on above: PATIENT NOT FASTINGP ERFORMED BY: PATRIA Silverio6370 [facility]ireSaint [facility] [id number] Folate [Mass/Vol] 14.1 ng/mL Normal Compreh ensive Internal Medicine Work Phone: Comment on above: A serum folate chago ntration of less than 3.1 ng/mL isconsidered to represent clinical deficiency. PATIENT NOT FASTINGP ERFORMED BY: PATRIA Silverio6370 [facility] [id number] CALCIFEDIOL (10957)Ordered B y: Certified Technician Specialist on 07-27-2018 25-Hydroxyvitamin D2+25-Hydroxyvitamin D3 mass conc 51.5 ng/mL Normal 30.0-100.0 [facility] Work Phone: Comment on above: Vitamin D deficiency has been defined by the [place] ofMedicine and an Endocrine Society practice guideline as alevel of serum 25-OH vitamin D less than 20 ng/mL (1,2).The Endocrine Society went on to further define vitamin Dinsufficiency as a level between 21 and 29 ng/mL (2).1. IOM ([place] of Medicine). 2010. Dietary reference intakes for calcium and D. [place]: The National Academies Press.2. Joe MF, Carrie ROBERSON, Mellisa ST, et al. Evaluation, treatment, and prevention of vitamin D deficiency: an Endocrine Society clinical practice guideline. JCEM. 2010; 96(7):1911-30. PATIENT WAS FASTINGP ERFORMED BY: PATRIA SmithMSA Management Xyvgvr1466 [facility] [id number] CBC & PLATELETS (AUTO) (8502 7)Ordered By: Certified Technician Specialist on 07-27-2018 Erythrocyte distribution width (RBC) [Ratio] 14.2 % Normal 12.3-15.4 [facility] Work Phone: Comment on above: PATIENT WAS FASTINGP ERFORMED BY: PATRIA Arenas Kjiiih9151 [facility] [id number] Erythrocyte distribution width Auto Ratio (RBC) 14.2 % Normal 12.3-15.4 [facility] Work Phone: Hematocrit (Bld) [Volume fraction] 41.2 % Normal 34.0-46.6 [facility] Internal Medicine Work Phone: Comment on above: PATIENT WAS FASTINGP ERFORMED BY: Pivot MedicalUniversity Of Michigan Health6[address] [facility] [id number] Hematocrit Auto Volume Fraction (Bld) 41.2 % Normal 34.0-46.6 [facility] Internal Medicine Work Phone: Hemoglobin mass conc (Bld) 14.3 g/dL Normal 11.1-15.9 [facility] Internal Medicine Work Phone: Comment on above: PATIENT WAS FASTINGP ERFORMED BY: LabMark [place] [id number] [facility] [id number] MCH (RBC) [Entitic mass] 33.6 pg Abnormal 26.6-33.0 [facility] Internal Medicine Work Phone: Comment on above: PATIENT WAS FASTINGP ERFORMED BY: ZiteMikayla [place] 6[address]3970 [facility] [id number] MCH Auto Entitic mass (RBC) 33.6 pg Abnormal 26.6-33.0 [facility] Internal Medicine Work Phone: MCHC (RBC) [Mass/Vol] 34.7 g/dL Normal 31.5-35.7 [facility] Internal Medicine Work Phone: Comment on above: PATIENT WAS FASTINGP ERFORMED BY: Pivot MedicalMark Ville 4369470 [facility] [id number] MCHC Auto mass conc (RBC) 34.7 g/dL Normal 31.5-35.7 [facility] Internal Medicine Work Phone: MCV (RBC) [Entitic vol] 97 fL Normal 79-97 [facility] Internal Medicine Work Phone: Comment on above: PATIENT WAS FASTINGP ERFORMED BY: [place] [address]70 [facility] [id number] MCV Auto Entitic volume (RBC) 97 fL Normal 79-97 [facility] Internal Medicine Work Phone: Platelets (Bld) [#/Vol] 193 {x10E3/uL} Normal 150-379 [facility] Work Phone: Comment on above: PATIENT WAS FASTINGP ERFORMED BY: [facility] [facility] [id number] Platelets (Bld) [#/Vol] 193 10*3/uL Normal 150-379 [facility]; [facility] Work Phone: Platelets Auto #/vol (Bld) 193 {x10E3/uL} Normal 150-379 [facility] Work Phone: RBC (Bld) [#/Vol] 4.25 {x10E6/uL} Normal 3.77-5.28 [facility] Internal Medicine Work Phone: Comment on above: PATIENT WAS FASTINGP ERFORMED BY: [facility] [facility] [id number] RBC (Bld) [#/Vol] 4.25 10*6/uL Normal 3.77-5.28 [facility]; [facility] Work Phone: RBC Auto #/vol (Bld) 4.25 {x10E6/uL} Normal 3.77-5.28 [facility] Work Phone: WBC (Bld) [#/Vol] 4.8 {x10E3/uL} Normal 3.4-10.8 [facility] Internal Medicine Work Phone: Comment on above: PATIENT WAS FASTINGP ERFORMED BY: [facility] [facility] [id number] WBC (Bld) [#/Vol] 4.8 10*3/uL Normal 3.4-10.8 [facility] Internal Medicine; [facility] Work Phone: WBC Auto #/vol (Bld) 4.8 {x10E3/uL} Normal 3.4-10.8 [facility] Work Phone: LIPID PANEL ([id number])Ordered B y: Certified Technician Specialist on 07-27-2018 Cholesterol in HDL mass conc 62 mg/dL Normal [facility] Work Phone: Comment on above: PATIENT WAS FASTINGP ERFORMED BY: PATRIA [facility] Vmmxqw4595 [address] RoadDublin [place] [id number] Cholesterol in LDL mass conc 86 mg/dL Normal 0-99 [facility] Work Phone: Comment on above: PATIENT WAS FASTINGP ERFORMED BY: PATRIA [facility] Hwyfgs2888 [address] RoadDublin [place] [id number] Cholesterol in LDL/Cholesterol in HDL mass ratio 1.4 {ratio} Normal 0.0-3.2 [facility] Work Phone: Comment on above: LDL/HDL Ratio Men Wo men 1/2 Avg.Risk 1.0 1.5 Avg.Risk 3.6 3.2 2X Avg.Risk 6.2 5.0 3X Avg.Risk 8.0 6.1 PATIENT WAS FASTINGP ERFORMED BY: PATRIA [facility] Ffdvvo3178 [address] RoadDublin [place] [id number] Cholesterol in VLDL mass conc 40 mg/dL Normal 5-40 [facility] Work Phone: Comment on above: PATIENT WAS FASTINGP ERFORMED BY: PATRIA [facility] Qzruir1065 [address] RoadDublin [place] [id number] Cholesterol mass conc 188 mg/dL Normal 100-199 [facility] prehensive Internal Medicine Work Phone: Comment on above: PATIENT WAS FASTINGP ERFORMED BY: PATRIA [facility] Bpmath0023 [address] RoadDublin [place] [id number] Triglyceride mass conc 201 mg/dL Abnormal 0-149 [facility] Work Phone: Comment on above: PATIENT WAS FASTINGP ERFORMED BY: PATRIA [facility] Ynxawm2464 [address] RoadDublin [place] [id number] METABOLIC PANEL, COMPREHENSI VE ([id number])Ordered By: Certified Technician Specialist on 07-27-2018 Albumin mass conc 4.0 g/dL Normal 3.5-4.8 Compreh ensive Internal Medicine Work Phone: Comment on above: PATIENT WAS FASTINGP ERFORMED BY: PATRIA [facility] Qfdxip2300 [address] RoadDublin [place] [id number] Albumin/Globulin mass ratio 1.6 {ratio} Normal 1.2-2.2 [facility] Internal Medicine Work Phone: Comment on above: PATIENT WAS FASTINGP ERFORMED BY: PATRIA Dagobertodesiree AlvarezYtnple9195 [address] Roadblin [place] [id number] ALP [Catalytic activity/Vol] 88 U/L Normal 39-117 [facility]; [facility] Internal Medicine Work Phone: ALP enzyme act/vol 88 [iU]/L Normal 39-117 [facility] Internal Medicine Work Phone: Comment on above: PATIENT WAS FASTINGP ERFORMED BY: PATRIA [facility] Fppezh2571 [address]gu[address] RoadCape Fear Valley Medical Centerin [place] [id number] ALT [Catalytic activity/Vol] 14 U/L Normal 0-32 [facility] Internal Medicine; [facility] Internal Medicine Work Phone: ALT enzyme act/vol 14 [iU]/L Normal 0-32 [facility] Internal Medicine Work Phone: Comment on above: PATIENT WAS FASTINGP ERFORMED BY: PATRIA [facility] Mevkxl[address] [facility] [id number] AST [Catalytic activity/Vol] 20 U/L Normal 0-40 [facility] Internal Medicine; [facility] Internal Medicine Work Phone: AST enzyme act/vol 20 [iU]/L Normal 0-40 [facility] Internal Medicine Work Phone: Comment on above: PATIENT WAS FASTINGP ERFORMED BY: PATRIA [facility]Children[facility] Gcuydf2636 [facility] [id number] Bilirubin mass conc 0.6 mg/dL Normal 0.0-1.2 [facility] Internal Medicine Work Phone: Comment on above: PATIENT WAS FASTINGP ERFORMED BY: PATRIA LabChildren[facility] Htuyhx[address] [facility]bl[facility] [place] [id number] Calcium mass conc 9.4 mg/dL Normal 8.7-10.3 [facility] Internal Medicine Work Phone: Comment on above: PATIENT WAS FASTINGP ERFORMED BY: PATRIA LabUniversity [facility] Health[address] [facility] Hospitalin [place] [id number] Chloride molar conc 103 mmol/L Normal 96-106 Compr ehensive Internal Medicine Work Phone: Comment on above: PATIENT WAS FASTINGP ERFORMED BY: PATRIA LabCodesiree SilverioNhxvhc9845 [facility] [id number] CO2 molar conc 25 mmol/L Normal 20-29 Comprehens kit Internal Medicine Work Phone: Comment on above: PATIENT WAS FASTINGP ERFORMED BY: PATRIA [facility] Huxanm4598 [facility] [id number] Creatinine mass conc 0.95 mg/dL Normal 0.57-1.00 Comp [facility] Work Phone: Comment on above: PATIENT WAS FASTINGP ERFORMED BY: PATRIA LabCodesiree AlvarezFkscnl0710 [facility] [id number] GFR/1.73 sq M predicted among blacks CKD-EPI vol rate/area (S/P/Bld) 69 mL/min/1.73 Normal Comprehensiv e Internal Medicine Work Phone: Comment on above: PATIENT WAS FASTINGP ERFORMED BY: PATRIA [facility]Co Thqnul2522 [facility] [id number] GFR/1.73 sq M predicted among non-blacks CKD-EPI vol rate/area (S/P/Bld) 60 mL/min/1.73 Normal [facility] Work Phone: Comment on above: PATIENT WAS FASTINGP ERFORMED BY: PATRIA [facility] Pfypkd1967 [facility] [id number] Globulin (S) [Mass/Vol] 2.5 g/dL Normal 1.5-4.5 [facility] Work Phone: Comment on above: PATIENT WAS FASTINGP ERFORMED BY: PATRIA [facility] Checft8629 [facility] [id number] Globulin Calculated mass conc (S) 2.5 g/dL Normal 1.5-4.5 [facility] Work Phone: Glucose mass conc 82 mg/dL Normal 65-99 Compreh ensive Internal Medicine Work Phone: Comment on above: PATIENT WAS FASTINGP ERFORMED BY: PATRIA [facility] Synzqr[address] [facility] [id number] Potassium molar conc 4.3 mmol/L Normal 3.5-5.2 Comp rehensive Internal Medicine Work Phone: Comment on above: PATIENT WAS FASTINGP ERFORMED BY: PATRIA [facility] Rmpwgy[address] [facility] [id number] Protein mass conc 6.5 g/dL Normal 6.0-8.5 Compreh ensive Internal Medicine Work Phone: Comment on above: PATIENT WAS FASTINGP ERFORMED BY: PATRIA [facility] Ngswmh[address] [facility] [id number] Sodium molar conc 144 mmol/L Normal 134-144 Compreh ensive Internal Medicine Work Phone: Comment on above: PATIENT WAS FASTINGP ERFORMED BY: PATRIA LabChildren[facility] Vxwsdi4540 [facility] [id number] Urea nitrogen mass conc 16 mg/dL Normal 8-27 [facility] Work Phone: Comment on above: PATIENT WAS FASTINGP ERFORMED BY: PATRIA LabChildren[facility] Mzlfez0748 [facility] [id number] Urea nitrogen/Creatinine mass ratio 17 mg/mg Normal 12- [facility] Work Phone: Comment on above: PATIENT WAS FASTINGP ERFORMED BY: PATRIA LabChildren[facility] Kihnta3071 [facility] [id number] TSH (THYROID STIMULATING HOR CAM) (51824)Ordered By: Certified Technician Specialist on 07-27-2018 Thyrotropin Qn 0.975 {uIU/mL} Normal 0.450-4.50 0 [facility] Work Phone: Comment on above: PATIENT WAS FASTINGP ERFORMED BY: PATRIA LabCo Qmyswo4848 [facility] [id number] Rapid Strep Test, Office (06 489)Ordered By: Preston Kang on 12-07-2017 S. pyogenes Ag EIA Ql (Throat) Negative Normal [facility]; [facility] Work Phone: Rapid Strep Test, Office ([phone])Ordered By: Preston Vance on 12-07-2017 S. pyogenes Ag IA Ql (Unsp spec) Negative Normal [facility] Work Phone: THROAT CULTURE ([id number])Ordere d By: Certified Technician Specialist on 12-07-2017 Bacteria identified Respiratory culture Nom (Unsp spec) RRF Normal [facility] Work Phone: Comment on above: Routine respiratory dodie PATIENT NOT FASTINGP ERFORMED BY: PATRIA [facility] Deenyt5327docTrackrAtrium Health Union West [id number] Information: SRC:TH Bacteria identified Respiratory culture Nom (Unsp spec) Final report Normal [facility] Work Phone: Comment on above: PATIENT NOT FASTINGP ERFORMED BY: [employer] LabMSA Managementrp Qtjeph5535Access Psychiatry Solutionsox iPaymentAtrium Health Union West [id number] Information: SRC: URINE ANTHONY CULTURE-MARIA T COL C OUNT (34302)Ordered By: Certified Technician Specialist on 07-27-2017 Bacteria identified Cx Nom (U) BETAGF Abnormal [facility] Work Phone: Comment on above: Beta hemolytic Strep tococcus, group F3,000 Colonies/mLMixed urogenital flora3,000 Colonies/mL PATIENT NOT FASTINGP ERFORMED BY: [employer] [facility] [id number] Health Union West [id number] Information: SRC: Bacteria identified Cx Nom (U) Final report Abnormal [facility] Work Phone: Comment on above: PATIENT NOT FASTINGP ERFORMED BY: [employer] LabMSA Managementrp Zjoalv1130InboundWriterAtrium Health Union West [id number] Information: SRC: Urinalysis, Office (46583)Or dered By: Maya Kang on 07-25-2017 Bilirubin Ql (U) Negative Normal Comprehe nsive Internal Medicine Work Phone: Bilirubin Ql (U) Negative Normal Comprehe nsive Internal Medicine; [facility] Work Phone: Glucose Test strip (U) [Mass/Vol] Negative Normal [facility]; [facility] Work Phone: Glucose Test strip mass conc (U) Negative Normal [facility] Work Phone: Hemoglobin Ql (U) Negative Normal [facility] Work Phone: Hemoglobin Ql (U) Negative Normal [facility]; [facility] Work Phone: Hemoglobin Test strip Ql (U) Negative Normal [facility] Work Phone: Ketones Ql (U) Negative Normal [facility] Work Phone: Ketones Ql (U) Negative Normal [facility]; [facility] Work Phone: Leukocyte esterase Test strip Ql (U) Trace Normal [facility] Work Phone: Nitrite Ql (U) Negative Normal [facility] Work Phone: Nitrite Ql (U) Negative Normal [facility]; [facility] Work Phone: Nitrite Test strip Ql (U) Negative Normal [facility] Work Phone: pH (U) 7.5 [pH] Normal [facility] Work Phone: pH Test strip (U) 7.5 [pH] Normal [facility] Work Phone: Protein Ql (U) Negative Normal [facility] Work Phone: Protein Ql (U) Negative Normal [facility]; [facility] Work Phone: Protein Test strip Ql (U) Negative Normal [facility] Work Phone: Specific gravity Relative Density (U) 1.020 1 Normal Comprehensi ve Internal Medicine Work Phone: Urobilinogen mass/time (24H U) 2 mg/dL Normal [facility] Work Phone: CALCIFEDIOL ([id number])Ordered B y: Certified Technician Specialist on 07-19-2017 25-Hydroxyvitamin D2+25-Hydroxyvitamin D3 mass conc 47.5 ng/mL Normal 30.0-100.0 [facility] Work Phone: Comment on above: Vitamin D deficiency has been defined by the [place] of[place] and an Endocrine Society practice guideline as alevel of serum 25-OH vitamin D less than 20 ng/mL (1,2).The Endocrine Society went on to further define vitamin Dinsufficiency as a level between 21 and 29 ng/mL (2).1. IOM ([place] of Medicine). 2010. Dietary reference intakes for calcium and D. [place]: The National Academies Press.2. Joe MF, Carrie ROBERSON, Mellisa ST, et al. Evaluation, treatment, and prevention of vitamin D deficiency: an Endocrine Society clinical practice guideline. JCEM. 2010; 96(7):1911-30. PATIENT WAS FASTINGP ERFORMED BY: [facility] [id number] CBC, PLATELETS & AUT DIFF (1 [id number])Ordered By: Certified Technician Specialist on 07-19-2017 Basophils (Bld) [#/Vol] 0.0 {x10E3/uL} Normal 0.0-0.2 [facility] Work Phone: Comment on above: PATIENT WAS FASTINGP ERFORMED BY: [facility] [id number] Information: NO UR @ UPLOAD Basophils (Bld) [#/Vol] 0.0 10*3/uL Normal 0.0-0.2 [facility]; [facility] Work Phone: Basophils Auto #/vol (Bld) 0.0 {x10E3/uL} Normal 0.0-0.2 [facility] Work Phone: Basophils/100 WBC (Bld) 0 % Normal [facility] Work Phone: Comment on above: PATIENT WAS FASTINGP ERFORMED BY: AVdirectAtrium Health [facility] [id number] Information: NO UR @ UPLOAD Basophils/100 WBC Auto (Bld) 0 % Normal [facility] Work Phone: Eosinophils (Bld) [#/Vol] 0.1 {x10E3/uL} Normal 0.0-0.4 [facility] Work Phone: Comment on above: PATIENT WAS FASTINGP ERFORMED BY: PATRIA Zite Awmvfp4237 [facility] [id number] Information: NO UR @ UPLOAD Eosinophils (Bld) [#/Vol] 0.1 10*3/uL Normal 0.0-0.4 [facility]; [facility] Work Phone: Eosinophils Auto #/vol (Bld) 0.1 {x10E3/uL} Normal 0.0-0.4 [facility] Work Phone: Eosinophils/100 WBC (Bld) 2 % Normal [facility] Work Phone: Comment on above: PATIENT WAS FASTINGP ERFORMED BY: PATRIA Pivot MedicalRegina AlvarezZvnfkf5657 [facility] [id number] Information: NO UR @ UPLOAD Eosinophils/100 WBC Auto (Bld) 2 % Normal [facility] Work Phone: Erythrocyte distribution width (RBC) [Ratio] 14.0 % Normal 12.3-15.4 [facility] Work Phone: Comment on above: PATIENT WAS FASTINGP ERFORMED BY: PATRIA Pivot MedicalRegina AlvarezOhzqvo3065 [facility] [id number] Information: NO UR @ UPLOAD Erythrocyte distribution width Auto Ratio (RBC) 14.0 % Normal 12.3-15.4 [facility] Work Phone: Hematocrit (Bld) [Volume fraction] 38.8 % Normal 34.0-46.6 [facility] Work Phone: Comment on above: PATIENT WAS FASTINGP ERFORMED BY: PATRIA Zite Dhwstd6813 [facility] [id number] Information: NO UR @ UPLOAD Hematocrit Auto Volume Fraction (Bld) 38.8 % Normal 34.0-46.6 [facility] Work Phone: Hemoglobin mass conc (Bld) 13.7 g/dL Normal 11.1-15.9 [facility] Work Phone: Comment on above: PATIENT WAS FASTINGP ERFORMED BY: PATRIA Dagoberto Ibrfdr5953 [facility] [id number] Information: NO UR @ UPLOAD Immature granulocytes #/vol (Bld) 0.0 {x10E3/uL} Normal 0.0-0.1 [facility] Work Phone: Comment on above: PATIENT WAS FASTINGP ERFORMED BY: PATRIA Dagoberto Momuwb[address] [id number] Information: NO UR @ UPLOAD Immature granulocytes (Bld) [#/Vol] 0.0 10*3/uL Normal 0.0-0.1 [facility]; [facility] Work Phone: Immature granulocytes/100 WBC (Bld) 0 % Normal [facility] Work Phone: Comment on above: PATIENT WAS FASTINGP ERFORMED BY: PATRIA Dagoberto [id number] [id number] Information: NO UR @ UPLOAD Lymphocytes (Bld) [#/Vol] 1.1 {x10E3/uL} Normal 0.7-3.1 [facility] Work Phone: Comment on above: PATIENT WAS FASTINGP ERFORMED BY: PATRIA Santo Alvarez[address] [id number] Information: NO UR @ UPLOAD Lymphocytes (Bld) [#/Vol] 1.1 10*3/uL Normal 0.7-3.1 [facility]; [facility] Work Phone: Lymphocytes Auto #/vol (Bld) 1.1 {x10E3/uL} Normal 0.7-3.1 [facility] Work Phone: Lymphocytes/100 WBC (Bld) 24 % Normal [facility] Work Phone: Comment on above: PATIENT WAS FASTINGP ERFORMED BY: PATRIA [address] [id number] Information: NO UR @ UPLOAD Lymphocytes/100 WBC Auto (Bld) 24 % Normal [facility] Work Phone: MCH (RBC) [Entitic mass] 34.7 pg Abnormal 26.6-33.0 [facility] Work Phone: Comment on above: PATIENT WAS FASTINGP ERFORMED BY: PATRIA Zitedesiree Ldcqhj9963 [facility] [id number] Information: NO UR @ UPLOAD MCH Auto Entitic mass (RBC) 34.7 pg Abnormal 26.6-33.0 [facility] Internal Medicine Work Phone: MCHC (RBC) [Mass/Vol] 35.3 g/dL Normal 31.5-35.7 [facility] Work Phone: Comment on above: PATIENT WAS FASTINGP ERFORMED BY: PATRIA Zitedesiree Ocahro2174 [facility] [id number] Information: NO UR @ UPLOAD MCHC Auto mass conc (RBC) 35.3 g/dL Normal 31.5-35.7 [facility] Work Phone: MCV (RBC) [Entitic vol] 98 fL Abnormal 79-97 [facility] Work Phone: Comment on above: PATIENT WAS FASTINGP ERFORMED BY: PATRIA Zite[address] [id number] Information: NO UR @ UPLOAD MCV Auto Entitic volume (RBC) 98 fL Abnormal 79-97 [facility] Work Phone: Monocytes (Bld) [#/Vol] 0.4 {x10E3/uL} Normal 0.1-0.9 [facility] Internal Medicine Work Phone: Comment on above: PATIENT WAS FASTINGP ERFORMED BY: PATRIA ZiteMikayla V[place] [id number] [facility] [id number] Information: NO UR @ UPLOAD Monocytes (Bld) [#/Vol] 0.4 10*3/uL Normal 0.1-0.9 [facility]; [facility] Work Phone: Monocytes Auto #/vol (Bld) 0.4 {x10E3/uL} Normal 0.1-0.9 [facility] Work Phone: Monocytes/100 WBC (Bld) 9 % Normal [facility] Work Phone: Comment on above: PATIENT WAS FASTINGP ERFORMED BY: PATRIA LuisRegina AlvarezXtfvca8501 [facility] [id number] Information: NO UR @ UPLOAD Monocytes/100 WBC Auto (Bld) 9 % Normal [facility] Work Phone: Neutrophils (Bld) [#/Vol] 3.0 {x10E3/uL} Normal 1.4-7.0 [facility] Work Phone: Comment on above: PATIENT WAS FASTINGP ERFORMED BY: PATRIA Silverio[address] [place] [address] [id number] Information: NO UR @ UPLOAD Neutrophils (Bld) [#/Vol] 3.0 10*3/uL Normal 1.4-7.0 [facility]; [facility] Work Phone: Neutrophils Auto #/vol (Bld) 3.0 {x10E3/uL} Normal 1.4-7.0 [facility] Work Phone: Neutrophils/100 WBC (Bld) 65 % Normal [facility] Work Phone: Comment on above: PATIENT WAS FASTINGP ERFORMED BY: PATRIA Alvarez[address] [id number] Information: NO UR @ UPLOAD Neutrophils/100 WBC Auto (Bld) 65 % Normal [facility] Work Phone: Platelets (Bld) [#/Vol] 200 {x10E3/uL} Normal 150-379 [facility] Work Phone: Comment on above: PATIENT WAS FASTINGP ERFORMED BY: PATRIA Alvarez[address] [id number] Information: NO UR @ UPLOAD Platelets (Bld) [#/Vol] 200 10*3/uL Normal 150-379 [facility]; [facility] Work Phone: Platelets Auto #/vol (Bld) 200 {x10E3/uL} Normal 150-379 [facility] Work Phone: RBC (Bld) [#/Vol] 3.95 {x10E6/uL} Normal 3.77-5.28 [facility] Work Phone: Comment on above: PATIENT WAS FASTINGP ERFORMED BY: PATRIA Pivot MedicalRegina AlvarezBqfeej3487 METRIXWAREAtrium Health [facility] [id number] Information: NO UR @ UPLOAD RBC (Bld) [#/Vol] 3.95 10*6/uL Normal 3.77-5.28 [facility] Internal Medicine; [facility] Work Phone: RBC Auto #/vol (Bld) 3.95 {x10E6/uL} Normal 3.77-5.28 [facility] Work Phone: WBC (Bld) [#/Vol] 4.6 {x10E3/uL} Normal 3.4-10.8 [facility] Internal Medicine Work Phone: Comment on above: PATIENT WAS FASTINGP ERFORMED BY: PATRIA Pivot MedicalRegina AlvarezRczpnw3627 METRIXWAREAtrium Health [facility] [id number] Information: NO UR @ UPLOAD WBC (Bld) [#/Vol] 4.6 10*3/uL Normal 3.4-10.8 [facility] Internal Medicine; [facility] Work Phone: WBC Auto #/vol (Bld) 4.6 {x10E3/uL} Normal 3.4-10.8 [facility] Work Phone: LIPID PANEL ([id number])Ordered B y: Certified Technician Specialist on 07-19-2017 Cholesterol in HDL mass conc 60 mg/dL Normal [facility] Work Phone: Comment on above: PATIENT WAS FASTINGP ERFORMED BY: PATRIA TapHome Dvbybe[address] iPaymentAtrium Health [facility] [id number] Cholesterol in LDL mass conc 81 mg/dL Normal 0-99 [facility] Work Phone: Comment on above: PATIENT WAS FASTINGP ERFORMED BY: PATRIA LabCodesiree Kfmwwq4747 [address] RoadDublin [place] [id number] Cholesterol in LDL/Cholesterol in HDL mass ratio 1.4 {ratio_units} Normal 0.0-3.2 [facility] Work Phone: Comment on above: LDL/HDL Ratio Men Wo men 1/2 Avg.Risk 1.0 1.5 Avg.Risk 3.6 3.2 2X Avg.Risk 6.2 5.0 3X Avg.Risk 8.0 6.1 PATIENT WAS FASTINGP ERFORMED BY: PATRIA LabCodesiree AlvarezFiijnu8388 Mc[address]ire RoadDublin [place] [id number] Cholesterol in VLDL mass conc 29 mg/dL Normal 5-40 [facility] Work Phone: Comment on above: PATIENT WAS FASTINGP ERFORMED BY: PATRIA LabRegina AlvarezKqmapr1863 [address] RoadDublin [place] [id number] Cholesterol mass conc 170 mg/dL Normal 100-199 [facility] prehensive Internal Medicine Work Phone: Comment on above: PATIENT WAS FASTINGP ERFORMED BY: PATRIA LabCodesiree AlvarezSehwfr0335 [address] RoadDublin [place] [id number] Triglyceride mass conc 147 mg/dL Normal 0-149 [facility] Work Phone: Comment on above: PATIENT WAS FASTINGP ERFORMED BY: PATRIA LabRegina AlvarezUdmiom4976 [address] iPaymentDublin [place] [id number] METABOLIC PANEL, COMPREHENSI VE ([id number])Ordered By: Certified Technician Specialist on 07-19-2017 Albumin mass conc 4.1 g/dL Normal 3.5-4.8 Compreh ensive [facility] Work Phone: Comment on above: PATIENT WAS FASTINGP ERFORMED BY: PATRIA [facility] Ludcee3024 [address] RoadDublin [place] [id number] Albumin/Globulin mass ratio 1.6 {ratio} Normal 1.2-2.2 [facility] Work Phone: Comment on above: PATIENT WAS FASTINGP ERFORMED BY: PATRIA [facility] Timulv6097 [address] RoadDublin [place] [id number] ALP [Catalytic activity/Vol] 99 U/L Normal 39-117 [facility]; [facility] Internal Medicine Work Phone: ALP enzyme act/vol 99 [iU]/L Normal 39-117 [facility] Internal Medicine Work Phone: Comment on above: PATIENT WAS FASTINGP ERFORMED BY: PATRIA LabCodesiree AlvarezLsznoe5411 [address] RoadDublin [place] [id number] ALT [Catalytic activity/Vol] 13 U/L Normal 0-32 [facility] Internal Medicine; [facility] Internal Medicine Work Phone: ALT enzyme act/vol 13 [iU]/L Normal 0-32 [facility] Internal Medicine Work Phone: Comment on above: PATIENT WAS FASTINGP ERFORMED BY: PATRIA LabRegina AlvarezTaintv9835 Mcguire Roadblin [place] [id number] AST [Catalytic activity/Vol] 20 U/L Normal 0-40 [facility] Internal [facility]; [facility] Work Phone: AST enzyme act/vol 20 [iU]/L Normal 0-40 [facility] Internal Medicine Work Phone: Comment on above: PATIENT WAS FASTINGP ERFORMED BY: PATRIA LabCodesiree AlvarezKnykos[address] [facility] [place] [id number] Bilirubin mass conc 0.7 mg/dL Normal 0.0-1.2 Compr [facility] Internal Medicine Work Phone: Comment on above: PATIENT WAS FASTINGP ERFORMED BY: PATRIA [facility] Vytvyt[address] [facility] [place] [id number] Calcium mass conc 8.9 mg/dL Normal 8.7-10.3 [facility] Work Phone: Comment on above: PATIENT WAS FASTINGP ERFORMED BY: PATRIA [facility] Zlgbgc4464 [address] [facility] Hospitalbl[facility] [place] [id number] Chloride molar conc 101 mmol/L Normal 96-106 Compr [facility] Internal Medicine Work Phone: Comment on above: PATIENT WAS FASTINGP ERFORMED BY: PATRIA [facility] Bprkxn6675 [address] RoadDublin [place] [id number] CO2 molar conc 24 mmol/L Normal 18-29 [facility] Work Phone: Comment on above: PATIENT WAS FASTINGP ERFORMED BY: PATRIA LabCo Zntvnd5246 [facility] [id number] Creatinine mass conc 0.79 mg/dL Normal 0.57-1.00 Comp rehensive Internal Medicine Work Phone: Comment on above: PATIENT WAS FASTINGP ERFORMED BY: LabCo Txbkxj2157 [facility] [id number] GFR/1.73 sq M predicted among blacks CKD-EPI vol rate/area (S/P/Bld) 87 mL/min/1.73 Normal Comprehensiv e Internal Medicine Work Phone: Comment on above: PATIENT WAS FASTINGP ERFORMED BY: PATRIA LabCo Oawfsc2882 [facility] [id number] GFR/1.73 sq M predicted among non-blacks CKD-EPI vol rate/area (S/P/Bld) 76 mL/min/1.73 Normal [facility] Work Phone: Comment on above: PATIENT WAS FASTINGP ERFORMED BY: PATRIA LabCo Ukhcjw1376 [facility] [id number] Globulin (S) [Mass/Vol] 2.6 g/dL Normal 1.5-4.5 [facility] Work Phone: Comment on above: PATIENT WAS FASTINGP ERFORMED BY: [facility]Co Fyqcfb1676 [facility] [id number] Globulin Calculated mass conc (S) 2.6 g/dL Normal 1.5-4.5 [facility] Work Phone: Glucose mass conc 89 mg/dL Normal 65-99 Compreh ensive Internal Medicine Work Phone: Comment on above: PATIENT WAS FASTINGP ERFORMED BY: PATRIA [facility] Mudagk1662 [facility] [id number] Potassium molar conc 4.1 mmol/L Normal 3.5-5.2 Comp rehensive Internal Medicine Work Phone: Comment on above: PATIENT WAS FASTINGP ERFORMED BY: PATRIA [facility] Vdmskx[address] [facility]in [place] [id number] Protein mass conc 6.7 g/dL Normal 6.0-8.5 Compreh ensive Internal Medicine Work Phone: Comment on above: PATIENT WAS FASTINGP ERFORMED BY: PATRIA [facility] Wkrwhx[address] [facility]in [place] [id number] Sodium molar conc 143 mmol/L Normal 134-144 Compreh ensive Internal Medicine Work Phone: Comment on above: PATIENT WAS FASTINGP ERFORMED BY: PATRIA [facility] Uxnbdw2[address] [facility] [place] [id number] Urea nitrogen mass conc 19 mg/dL Normal 8-27 [facility] Work Phone: Comment on above: PATIENT WAS FASTINGP ERFORMED BY: PATRIA [facility] Nqonzj76[address] [place] [id number] Urea nitrogen/Creatinine mass ratio 24 mg/mg Normal 12- [facility] Work Phone: Comment on above: PATIENT WAS FASTINGP ERFORMED BY: PATRIA [facility] Btexwm4425 [address] [facility] [place] [id number] TSH (THYROID STIMULATING HOR CAM) ([id number])Ordered By: Certified Technician Specialist on 07-19-2017 Thyrotropin Qn 0.771 {uIU/mL} Normal 0.450-4.50 0 [facility] Work Phone: Comment on above: PATIENT WAS FASTINGP ERFORMED BY: [facility] Xkvmuv6757 [facility] [id number] Basic Metabolic Profile (BMP )Ordered By: Certified Technician Specialist on 10-04-2016 Basic metabolic 2000 panel 141 mmol/L Normal 136-145 [facility] Work Phone: Basic metabolic 2000 panel 81 mL/min Normal [facility] Work Phone: Comment on above: GFR Calc Basic metabolic 2000 panel 6 1 Normal 5-15 [facility] Work Phone: Basic metabolic 2000 panel 30.0 mmol/L Normal 21.0-32.0 [facility] Work Phone: Basic metabolic 2000 panel 93 mg/dL Normal 70-110 [facility] Work Phone: Basic metabolic 2000 panel 19.2 {RATIO} Normal 10-20 [facility] Work Phone: Basic metabolic 2000 panel 17 mg/dL Normal 7-18 [facility] Work Phone: Basic metabolic 2000 panel 67 mL/min Normal [facility] Work Phone: Comment on above: Non- GFR Calc Basic metabolic 2000 panel 105 mmol/L Normal 98-107 [facility] Work Phone: Basic metabolic 2000 panel 3.7 mmol/L Normal 3.5-5.1 [facility] Work Phone: Basic metabolic 2000 panel 9.3 mg/dL Normal 8.5-10.1 [facility] Work Phone: Basic metabolic 2000 panel 0.89 mg/dL Normal 0.55-1.02 [facility] Work Phone: Comment on above: The validity of the calculated GFR AND GFRAA in patients over70 years has not been determined. Clinical correlation isessential. CBC-Complete Blood Cnt No Di ffOrdered By: Certified Technician Specialist on 10-04-2016 Erythrocyte distribution width Auto Ratio (RBC) 13.4 % Normal 11.6-14.6 [facility] Internal Medicine Work Phone: Hematocrit Auto Volume Fraction (Bld) 43.8 % Normal 37-47 [facility] Internal Medicine Work Phone: Hemoglobin mass conc (Bld) 14.6 g/dL Normal 12.0-15.0 [facility] Internal Medicine Work Phone: MCH Auto Entitic mass (RBC) 31.1 pg Normal 27.0-32.0 [facility] Internal Medicine Work Phone: MCHC Auto mass conc (RBC) 33.3 {g/gl} Normal 32-36 [facility] Internal Medicine Work Phone: MCV Auto Entitic volume (RBC) 93.4 fL Normal 81-99 [facility] Work Phone: Platelet mean volume Auto Entitic volume (Bld) 9.7 fL Normal 6.2-12.0 [facility] Internal Medicine Work Phone: Platelets Auto #/vol (Bld) 215 10*3/uL Normal 150-450 [facility] Internal Medicine Work Phone: RBC Auto #/vol (Bld) 4.69 {M/mm3} Normal 4.2-5.4 Co mprehensive Internal Medicine Work Phone: RDW SD 45.6 fL Abnormal 35.1-43.9 [facility] Internal Medicine Work Phone: WBC Auto #/vol (Bld) 5.0 10*3/uL Normal 4.4-11.0 [facility] prehensive Internal Medicine Work Phone: Lipid ProfileOrdered By: [employer] Staffing Assistant on 09-29-2016 Cholesterol in HDL mass conc 73 mg/dL Normal [facility] Internal Medicine Work Phone: Comment on above: The drugs N-Acetylcy steine and Metamizole may falsely deressthis assay. Reference Range HDL <40 mg/dL Low HDL Cholesterol HDL >or= 60 mg/dL High HDL Cholesterol Cholesterol in LDL mass conc 80 mg/dL Normal 0-130 [facility] Internal Medicine Work Phone: Cholesterol in VLDL mass conc 34 mg/dL Normal 5-40 [facility] Internal Medicine Work Phone: Cholesterol mass conc 187 mg/dL Normal [facility] prehensive Internal Medicine Work Phone: Comment on above: <200 mg/dL Desirable 200-240 mg/dL Borderline >240 mg/dL High Risk Triglyceride mass conc 171 mg/dL Normal [facility] Internal Medicine Work Phone: Comment on above: The drugs N-Acetylcy steine and Metamizole may falsely deressthis assay.Serum Triglycerides Reference Interval Normal <150 mg/dL Borderline high 150 - 199 mg/dL High 200 - 499 mg/dL Very High > or = 500 mg/dL Liver ProfileOrdered By: Sosei tem Staffing Assistant on 09-29-2016 Albumin mass conc 3.5 g/dL Normal 3.4-5.0 [facility] Internal Medicine Work Phone: ALP enzyme act/vol 91 U/L Normal 45-117 [facility] Work Phone: ALT enzyme act/vol 18 U/L Normal 12-78 [facility] Internal Medicine Work Phone: AST enzyme act/vol 20 U/L Normal 15-37 [facility] Internal Medicine Work Phone: Bilirubin mass conc 0.60 mg/dL Normal 0.20-1.00 [facility] Internal Medicine Work Phone: Bilirubin.direct mass conc 0.14 mg/dL Normal 0.00-0.30 [facility] Internal Medicine Work Phone: Globulin Calculated mass conc (S) 3.9 g/dL Abnormal 2.3-3.5 [facility] Internal Medicine Work Phone: Protein mass conc 7.4 g/dL Normal 6.4-8.2 [facility] Internal Medicine Work Phone: CALCIFEDIOL ([id number])Ordered B y: Certified Technician Specialist on 06-14-2016 25-Hydroxyvitamin D2+25-Hydroxyvitamin D3 mass conc 45.8 ng/mL Normal 30.0-100.0 [facility] Internal Medicine Work Phone: Comment on above: Vitamin D deficiency has been defined by the [place] of[place]icine and an Endocrine Society practice guideline as alevel of serum 25-OH vitamin D less than 20 ng/mL (1,2).The Endocrine Society went on to further define vitamin Dinsufficiency as a level between 21 and 29 ng/mL (2).1. IOM ([place] of Medicine). 2010. Dietary reference intakes for calcium and D. [place]: The National Academies Press.2. Joe MF, Carrie NC, Mellisa ST, et al. Evaluation, treatment, and prevention of vitamin D deficiency: an Endocrine Society clinical practice guideline. JCEM. 2010; 96(7):1911-30. PATIENT WAS FASTINGP ERFORMED BY: LabCoJFK Medical CenterWfkhiv8837 [facility] [id number] CBC, Platelets & Auto Diff ( [id number])Ordered By: Certified Technician Specialist on 06-14-2016 Basophils (Bld) [#/Vol] 0.0 {x10E3/uL} Normal 0.0-0.2 [facility] Work Phone: Comment on above: PATIENT WAS FASTINGP ERFORMED BY: PATRIA ZiteMikayla Ville [id number] [facility] [id number] Basophils (Bld) [#/Vol] 0.0 10*3/uL Normal 0.0-0.2 [facility]; [facility] Work Phone: Basophils Auto #/vol (Bld) 0.0 {x10E3/uL} Normal 0.0-0.2 [facility] Work Phone: Basophils/100 WBC (Bld) 1 % Normal [facility] Work Phone: Comment on above: PATIENT WAS FASTINGP ERFORMED BY: Zite[address] [id number] Basophils/100 WBC Auto (Bld) 1 % Normal [facility] Work Phone: Eosinophils (Bld) [#/Vol] 0.1 {x10E3/uL} Normal 0.0-0.4 [facility] Work Phone: Comment on above: PATIENT WAS FASTINGP ERFORMED BY: PATRIA ZiteMescalero Service UnitXmpgcb2262 [facility] [id number] Eosinophils (Bld) [#/Vol] 0.1 10*3/uL Normal 0.0-0.4 [facility]; [facility] Work Phone: Eosinophils Auto #/vol (Bld) 0.1 {x10E3/uL} Normal 0.0-0.4 [facility] Work Phone: Eosinophils/100 WBC (Bld) 2 % Normal [facility] Work Phone: Comment on above: PATIENT WAS FASTINGP ERFORMED BY: ZiteMikayla [place] [id number] [facility] [id number] Eosinophils/100 WBC Auto (Bld) 2 % Normal [facility] Work Phone: Erythrocyte distribution width (RBC) [Ratio] 14.2 % Normal 12.3-15.4 [facility] Work Phone: Comment on above: PATIENT WAS FASTINGP ERFORMED BY: PATRIA LabCodesiree AlvarezCrqoei9851 Mcguire RoadDublin [place] [id number] Erythrocyte distribution width Auto Ratio (RBC) 14.2 % Normal 12.3-15.4 [facility] Work Phone: Hematocrit (Bld) [Volume fraction] 39.9 % Normal 34.0-46.6 [facility] Work Phone: Comment on above: PATIENT WAS FASTINGP ERFORMED BY: PATRIA LabRegina Silverio6370 [address] RoadDublin [place] [id number] Hematocrit Auto Volume Fraction (Bld) 39.9 % Normal 34.0-46.6 [facility] Work Phone: Hemoglobin mass conc (Bld) 13.9 g/dL Normal 11.1-15.9 [facility] Work Phone: Comment on above: PATIENT WAS FASTINGP ERFORMED BY: PATRIA Alvarezlin6370 Mc[address] RoadDuin [place] [id number] Immature granulocytes #/vol (Bld) 0.0 {x10E3/uL} Normal 0.0-0.1 [facility] Work Phone: Comment on above: PATIENT WAS FASTINGP ERFORMED BY: PATRIA Alvarezlin6370 Mcguire RoadCape Fear Valley Medical Centerin [place] [id number] Immature granulocytes (Bld) [#/Vol] 0.0 10*3/uL Normal 0.0-0.1 [facility]; [facility] Work Phone: Immature granulocytes/100 WBC (Bld) 0 % Normal [facility] Work Phone: Comment on above: PATIENT WAS FASTINGP ERFORMED BY: PATRIA [facility] Pvxltp2620 [address] RoadDublin [place] [id number] Lymphocytes (Bld) [#/Vol] 1.4 {x10E3/uL} Normal 0.7-3.1 [facility] Work Phone: Comment on above: PATIENT WAS FASTINGP ERFORMED BY: PATRIA SmithMark V[place] [id number] [facility] [id number] Lymphocytes (Bld) [#/Vol] 1.4 10*3/uL Normal 0.7-3.1 [facility]; [facility] Work Phone: Lymphocytes Auto #/vol (Bld) 1.4 {x10E3/uL} Normal 0.7-3.1 [facility] Work Phone: Lymphocytes/100 WBC (Bld) 27 % Normal [facility] Work Phone: Comment on above: PATIENT WAS FASTINGP ERFORMED BY: [place] [id number] [facility] [id number] Lymphocytes/100 WBC Auto (Bld) 27 % Normal [facility] Work Phone: MCH (RBC) [Entitic mass] 33.2 pg Abnormal 26.6-33.0 [facility] Work Phone: Comment on above: PATIENT WAS FASTINGP ERFORMED BY: [place] [id number] [facility] [id number] MCH Auto Entitic mass (RBC) 33.2 pg Abnormal 26.6-33.0 [facility] Work Phone: MCHC (RBC) [Mass/Vol] 34.8 g/dL Normal 31.5-35.7 [facility] prehensive Internal Medicine Work Phone: Comment on above: PATIENT WAS FASTINGP ERFORMED BY: [place] [id number] [facility] [id number] MCHC Auto mass conc (RBC) 34.8 g/dL Normal 31.5-35.7 [facility] Work Phone: MCV (RBC) [Entitic vol] 95 fL Normal 79-97 [facility] Work Phone: Comment on above: PATIENT WAS FASTINGP ERFORMED BY: [place] [id number] [facility] [id number] MCV Auto Entitic volume (RBC) 95 fL Normal 79-97 [facility] Work Phone: Monocytes (Bld) [#/Vol] 0.4 {x10E3/uL} Normal 0.1-0.9 [facility] Work Phone: Comment on above: PATIENT WAS FASTINGP ERFORMED BY: PATRIA LabMSA ManagementJFK Medical CenterLkmlfc6341 [facility] [id number] Monocytes (Bld) [#/Vol] 0.4 10*3/uL Normal 0.1-0.9 [facility]; [facility] Work Phone: Monocytes Auto #/vol (Bld) 0.4 {x10E3/uL} Normal 0.1-0.9 [facility] Work Phone: Monocytes/100 WBC (Bld) 8 % Normal [facility] Work Phone: Comment on above: PATIENT WAS FASTINGP ERFORMED BY: ZiteMikayla [place] [address] [facility] [id number] Monocytes/100 WBC Auto (Bld) 8 % Normal [facility] Work Phone: Neutrophils (Bld) [#/Vol] 3.1 {x10E3/uL} Normal 1.4-7.0 [facility] Work Phone: Comment on above: PATIENT WAS FASTINGP ERFORMED BY: ZiteMikayla [place] [address] [facility] [id number] Neutrophils (Bld) [#/Vol] 3.1 10*3/uL Normal 1.4-7.0 [facility]; [facility] Work Phone: Neutrophils Auto #/vol (Bld) 3.1 {x10E3/uL} Normal 1.4-7.0 [facility] Work Phone: Neutrophils/100 WBC (Bld) 62 % Normal [facility] Work Phone: Comment on above: PATIENT WAS FASTINGP ERFORMED BY: ZiteMikayla [place] [address] [facility] [id number] Neutrophils/100 WBC Auto (Bld) 62 % Normal [facility] Work Phone: Platelets (Bld) [#/Vol] 193 {x10E3/uL} Normal 150-379 [facility] Work Phone: Comment on above: PATIENT WAS FASTINGP ERFORMED BY: ZiteJFK Medical CenterXmjxsf5986 [facility] [id number] Platelets (Bld) [#/Vol] 193 10*3/uL Normal 150-379 [facility]; [facility] Work Phone: Platelets Auto #/vol (Bld) 193 {x10E3/uL} Normal 150-379 [facility] Work Phone: RBC (Bld) [#/Vol] 4.19 {x10E6/uL} Normal 3.77-5.28 [facility] Internal Medicine Work Phone: Comment on above: PATIENT WAS FASTINGP ERFORMED BY: ZiteJFK Medical CenterOjrfnk6934 [facility] [id number] RBC (Bld) [#/Vol] 4.19 10*6/uL Normal 3.77-5.28 [facility] Internal Medicine; [facility] Work Phone: RBC Auto #/vol (Bld) 4.19 {x10E6/uL} Normal 3.77-5.28 [facility] Work Phone: WBC (Bld) [#/Vol] 5.0 {x10E3/uL} Normal 3.4-10.8 [facility] Internal Medicine Work Phone: Comment on above: PATIENT WAS FASTINGP ERFORMED BY: ZiteJFK Medical CenterEbyioo7276 [facility] [id number] WBC (Bld) [#/Vol] 5.0 10*3/uL Normal 3.4-10.8 [facility] Internal Medicine; [facility] Work Phone: WBC Auto #/vol (Bld) 5.0 {x10E3/uL} Normal 3.4-10.8 [facility] Work Phone: Lipid Panel ([id number])Ordered B y: Certified Technician Specialist on 06-14-2016 Cholesterol in HDL mass conc 56 mg/dL Normal [facility] Work Phone: Comment on above: According to ATP-III Guidelines, HDL-C >59 mg/dL is considered anegative risk factor for CHD. PATIENT WAS FASTINGP ERFORMED BY: PATRIA Alvarezlin6370 [facility] [id number] Cholesterol in LDL mass conc 87 mg/dL Normal 0-99 [facility] Work Phone: Comment on above: PATIENT WAS FASTINGP ERFORMED BY: PATRIA Arenas Gjmdpv1018 [facility] [id number] Cholesterol in LDL/Cholesterol in HDL mass ratio 1.6 {ratio_units} Normal 0.0-3.2 [facility] Work Phone: Comment on above: LDL/HDL Ratio Men Wo men 1/2 Avg.Risk 1.0 1.5 Avg.Risk 3.6 3.2 2X Avg.Risk 6.2 5.0 3X Avg.Risk 8.0 6.1 PATIENT WAS FASTINGP ERFORMED BY: PATRIA Zite Ploshb6776 [facility] [id number] Cholesterol in VLDL mass conc 51 mg/dL Abnormal 5-40 [facility] Work Phone: Comment on above: PATIENT WAS FASTINGP ERFORMED BY: PATRIA Alvarezlin6370 [facility] [id number] Cholesterol mass conc 194 mg/dL Normal 100-199 Com prehensive Internal Medicine Work Phone: Comment on above: PATIENT WAS FASTINGP ERFORMED BY: PATRIA LabChildren[facility] Jsjcwp5769 [facility] [id number] Triglyceride mass conc 256 mg/dL Abnormal 0-149 [facility] Work Phone: Comment on above: PATIENT WAS FASTINGP ERFORMED BY: PATRIA LabChildren'[facility] Sbuprz0717 [facility] [id number] Metabolic Panel, Comprehensi ve ([id number])Ordered By: Certified Technician Specialist on 06-14-2016 Albumin mass conc 3.9 g/dL Normal 3.5-4.8 Compreh ensive Internal Medicine Work Phone: Comment on above: PATIENT WAS FASTINGP ERFORMED BY: CB [facility] Tuymhr6517 [address] RoadDublin [place] [id number]; OV 10 Albumin/Globulin mass ratio 1.5 {ratio} Normal 1.1-2.5 [facility] Internal Medicine Work Phone: Comment on above: PATIENT WAS FASTINGP ERFORMED BY: CB [facility] Xhpcrb3001 Mc[address] RoadDublin [place] [id number]; OV 10 ALP [Catalytic activity/Vol] 88 U/L Normal 39-117 [facility]; [facility] Internal [facility] Work Phone: ALP enzyme act/vol 88 [iU]/L Normal 39-117 [facility] Internal Medicine Work Phone: Comment on above: PATIENT WAS FASTINGP ERFORMED BY: CB [facility] Nejeal9802 [address] RoadDublin [place] [id number]; OV 06/27 ALT [Catalytic activity/Vol] 17 U/L Normal 0-32 [facility] Internal Medicine; [facility] Internal Medicine Work Phone: ALT enzyme act/vol 17 [iU]/L Normal 0-32 [facility] Internal Medicine Work Phone: Comment on above: PATIENT WAS FASTINGP ERFORMED BY: CB [facility] Nzfcss7996 [address] RoadDublin [place] [id number]; OV 10 AST [Catalytic activity/Vol] 20 U/L Normal 0-40 [facility] Internal Medicine; [facility] Internal Medicine Work Phone: AST enzyme act/vol 20 [iU]/L Normal 0-40 [facility] Internal Medicine Work Phone: Comment on above: PATIENT WAS FASTINGP ERFORMED BY: CB [facility] Tdxjbs8427 [address] RoadDublin [place] [id number]; OV 10 Bilirubin mass conc 0.5 mg/dL Normal 0.0-1.2 [facility] Internal Medicine Work Phone: Comment on above: PATIENT WAS FASTINGP ERFORMED BY: CB [facility] Jcmrwr5686 [address] RoadDublin [place] [id number]; OV 10 Calcium mass conc 9.3 mg/dL Normal 8.7-10.3 Compreh ensive Internal Medicine Work Phone: Comment on above: PATIENT WAS FASTINGP ERFORMED BY: CB [facility] Elvutu3978 [address] RoadDublin [place] [id number]; OV 10 Chloride molar conc 101 mmol/L Normal 97-108 Compr ehensive Internal Medicine Work Phone: Comment on above: Effective June 27, 2016 the reference interval for Chloride, Serum will be changing to: 97 - 106 PATIENT WAS FASTINGP ERFORMED BY: CB [facility] Rqjhus3694 [address] RoadDublin [place] [id number]; OV 10 CO2 molar conc 25 mmol/L Normal 18-29 Comprehens [facility] Internal Medicine Work Phone: Comment on above: PATIENT WAS FASTINGP ERFORMED BY: CB [facility] Rokbzy3023 [address] RoadDublin [place] [id number]; OV 10 Creatinine mass conc 0.79 mg/dL Normal 0.57-1.00 Comp rehensive Internal Medicine Work Phone: Comment on above: PATIENT WAS FASTINGP ERFORMED BY: CB [facility] Ruyzic7209 [address] RoadDublin [place] [id number]; OV 10 GFR/1.73 sq M predicted among blacks CKD-EPI vol rate/area (S/P/Bld) 88 mL/min/1.73 Normal Comprehensiv e Internal Medicine Work Phone: Comment on above: PATIENT WAS FASTINGP ERFORMED BY: CB [facility] Rhlobp7474 [address] RoadDublin [place] [id number]; OV 10/ GFR/1.73 sq M predicted among non-blacks CKD-EPI vol rate/area (S/P/Bld) 76 mL/min/1.73 Normal [facility] Work Phone: Comment on above: PATIENT WAS FASTINGP ERFORMED BY: CB [facility] Hmsztu8095 [address] RoadDublin [place] [id number]; OV 10 Globulin (S) [Mass/Vol] 2.6 g/dL Normal 1.5-4.5 [facility] Work Phone: Comment on above: PATIENT WAS FASTINGP ERFORMED BY: CB [facility] Ukrbkf[address] [facility] [id number]; OV 06/27 Globulin Calculated mass conc (S) 2.6 g/dL Normal 1.5-4.5 [facility] Work Phone: Glucose mass conc 80 mg/dL Normal 65-99 Compreh ensive Internal Medicine Work Phone: Comment on above: PATIENT WAS FASTINGP ERFORMED BY: [facility] Ewuoli[address] [facility] [place] [id number]; OV 06/27 Potassium molar conc 4.1 mmol/L Normal 3.5-5.2 Comp rehensive Internal Medicine Work Phone: Comment on above: Effective June 27, 2016 the reference interval for Potassium, Serum will be changing to: 0 - 7 days 3.7 - 5.2 8 - 30 days 3.7 - 6.4 1 - 6 months 3.8 - 6.0 7 months - 1 year 3.8 - 5.3 >1 year 3.5 - 5.2 PATIENT WAS FASTINGP ERFORMED BY: [facility] Fzypkn8372 [facility] [id number]; OV 06/27 Protein mass conc 6.5 g/dL Normal 6.0-8.5 Compreh ensive Internal Medicine Work Phone: Comment on above: PATIENT WAS FASTINGP ERFORMED BY: [facility] Zzpckl3235 [facility] [id number]; OV 06/27 Sodium molar conc 144 mmol/L Normal 134-144 Compreh ensive Internal Medicine Work Phone: Comment on above: Effective June 27, 2016 the reference interval for Sodium, Serum will be changing to: 136 - 144 PATIENT WAS FASTINGP ERFORMED BY: CB [facility] Rrbszg7[address] [facility] [id number]; OV 06/27 Urea nitrogen mass conc 16 mg/dL Normal 8-27 [facility] Work Phone: Comment on above: PATIENT WAS FASTINGP ERFORMED BY: CB [facility] Lvgpgz7321 [facility] [id number]; OV 06/27 Urea nitrogen/Creatinine mass ratio 20 mg/mg Normal 08-06 [facility] Work Phone: Comment on above: PATIENT WAS FASTINGP ERFORMED BY: CB [facility] Mrgojf0871 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 ONTHE SURFACE IS A RAISED ROTH 0.4 CM LESION. THE SURGICAL MARGIN ISINKED BLACK AND THE SPECIMEN IS BISECTED. THE SPECIMEN IS SUBMITTEDIN CASSETTE(S) A./LMSLMS/LMSCPT .527216 TSH (THYROID STIMULATING HOR CAM) (61209)Ordered By: Certified Technician Specialist on 06-14-2016 Thyrotropin Qn 1.110 {uIU/mL} Normal 0.450-4.50 0 [facility] Work Phone: Comment on above: PATIENT WAS FASTINGP ERFORMED BY: Zite[address] [id number] Celiac Disease ProfileOrdere d By: Certified Technician Specialist on 11-25-2015 ENDOMYSIAL IGA Negative Normal [facility] Work Phone: IMMUNO A 296 mg/dL Normal 87-352 [facility] Work Phone: Comment on above: Please note refere nce interval changePerformed at: [facility] [employer] [id number] Director: Itz Hartley PhD, Phone: [phone] tTG IGA <2 Normal 0-3 [facility] Work Phone: Comment on above: Negative 0 - 3 Weak Positive 4 - 10 Positive >10 Tissue Transglutaminase (tTG) has been identified as the endomysial antigen. Studies have demonstr- ated that endomysial IgA antibodies have over 99% specificity for gluten sensitive enteropathy. Fecal Occult Blood , Office ([id number])Ordered By: Ellis Cervantes on 11-05-2015 Hemoglobin.gastrointe stinal Ql (St) Negative Normal [facility] Work Phone: Hemoglobin.gastrointe stinal Ql (Stl) Negative Normal [facility]; [facility] Work Phone: CBC, Platelets & Auto Diff ( [id number])Ordered By: Certified Technician Specialist on 10-26-2015 Basophils (Bld) [#/Vol] 0.0 {x10E3/uL} Normal 0.0-0.2 [facility] Work Phone: Comment on above: PATIENT NOT FASTINGP ERFORMED BY: [employer] ([employer])[address] [id number] Information: [id number] Basophils (Bld) [#/Vol] 0.0 10*3/uL Normal 0.0-0.2 [facility]; [facility] Work Phone: Basophils Auto #/vol (Bld) 0.0 {x10E3/uL} Normal 0.0-0.2 [facility] Work Phone: Basophils/100 WBC (Bld) 0 % Normal [facility] Work Phone: Comment on above: PATIENT NOT FASTINGP ERFORMED BY: PATRIA [facility] [facility] [id number] Information: [id number] Basophils/100 WBC Auto (Bld) 0 % Normal [facility] Work Phone: Eosinophils (Bld) [#/Vol] 0.3 {x10E3/uL} Normal 0.0-0.4 [facility] Work Phone: Comment on above: PATIENT NOT FASTINGP ERFORMED BY: PATRIA [facility]Children[facility] Lebswe4372 [facility] [id number] Information: [id number] Eosinophils (Bld) [#/Vol] 0.3 10*3/uL Normal 0.0-0.4 [facility]; [facility] Work Phone: Eosinophils Auto #/vol (Bld) 0.3 {x10E3/uL} Normal 0.0-0.4 [facility] Work Phone: Eosinophils/100 WBC (Bld) 5 % Normal [facility] Work Phone: Comment on above: PATIENT NOT FASTINGP ERFORMED BY: PATRIA [place] [address] [facility] [id number] Information: [id number] Eosinophils/100 WBC Auto (Bld) 5 % Normal [facility] Work Phone: Erythrocyte distribution width (RBC) [Ratio] 14.1 % Normal 12.3-15.4 [facility] Work Phone: Comment on above: PATIENT NOT FASTINGP ERFORMED BY: PATRIA [place] [address] [facility] [id number] Information: [id number] Erythrocyte distribution width Auto Ratio (RBC) 14.1 % Normal 12.3-15.4 [facility] Work Phone: Hematocrit (Bld) [Volume fraction] 42.8 % Normal 34.0-46.6 [facility] Internal Medicine Work Phone: Comment on above: PATIENT NOT FASTINGP ERFORMED BY: PATRIA [facility] Sydzmd8866 [facility] [id number] Information: [id number] Hematocrit Auto Volume Fraction (Bld) 42.8 % Normal 34.0-46.6 [facility] Internal Medicine Work Phone: Hemoglobin mass conc (Bld) 14.8 g/dL Normal 11.1-15.9 [facility] Work Phone: Comment on above: PATIENT NOT FASTINGP ERFORMED BY: PATRIA [place] [address] [facility] [id number] Information: [id number] Immature granulocytes #/vol (Bld) 0.0 {x10E3/uL} Normal 0.0-0.1 [facility] Work Phone: Comment on above: PATIENT NOT FASTINGP ERFORMED BY: PATRIA LuisRegina AlvarezPogmez5461 [facility] [id number] Information: [id number] Immature granulocytes (Bld) [#/Vol] 0.0 10*3/uL Normal 0.0-0.1 [facility]; [facility] Work Phone: Immature granulocytes/100 WBC (Bld) 0 % Normal [facility] Work Phone: Comment on above: PATIENT NOT FASTINGP ERFORMED BY: PATRIA [place] [address] [facility] [id number] Information: [id number] Lymphocytes (Bld) [#/Vol] 1.2 {x10E3/uL} Normal 0.7-3.1 [facility] Work Phone: Comment on above: PATIENT NOT FASTINGP ERFORMED BY: PATRIA [facility] [facility] [id number] Information: [id number] Lymphocytes (Bld) [#/Vol] 1.2 10*3/uL Normal 0.7-3.1 [facility]; [facility] Work Phone: Lymphocytes Auto #/vol (Bld) 1.2 {x10E3/uL} Normal 0.7-3.1 [facility] Work Phone: Lymphocytes/100 WBC (Bld) 18 % Normal [facility] Work Phone: Comment on above: PATIENT NOT FASTINGP ERFORMED BY: PATRIA [facility] Cojzlp5595 [facility] [id number] Information: [id number] Lymphocytes/100 WBC Auto (Bld) 18 % Normal [facility] Work Phone: MCH (RBC) [Entitic mass] 32.2 pg Normal 26.6-33.0 [facility] Work Phone: Comment on above: PATIENT NOT FASTINGP ERFORMED BY: PATRIA [facility] [facility] [id number] Information: [id number] MCH Auto Entitic mass (RBC) 32.2 pg Normal 26.6-33.0 [facility] Work Phone: MCHC (RBC) [Mass/Vol] 34.6 g/dL Normal 31.5-35.7 [facility] Internal Medicine Work Phone: Comment on above: PATIENT NOT FASTINGP ERFORMED BY: PATRIA [facility] [facility] [id number] Information: [id number] MCHC Auto mass conc (RBC) 34.6 g/dL Normal 31.5-35.7 [facility] Work Phone: MCV (RBC) [Entitic vol] 93 fL Normal 79-97 [facility] Work Phone: Comment on above: PATIENT NOT FASTINGP ERFORMED BY: [facility]6370 [facility] [id number] Information: [id number] MCV Auto Entitic volume (RBC) 93 fL Normal 79-97 [facility] Work Phone: Monocytes (Bld) [#/Vol] 0.5 {x10E3/uL} Normal 0.1-0.9 [facility] Work Phone: Comment on above: PATIENT NOT FASTINGP ERFORMED BY: [place] [address] [facility] [id number] Information: [id number] Monocytes (Bld) [#/Vol] 0.5 10*3/uL Normal 0.1-0.9 [facility]; [facility] Work Phone: Monocytes Auto #/vol (Bld) 0.5 {x10E3/uL} Normal 0.1-0.9 [facility] Work Phone: Monocytes/100 WBC (Bld) 8 % Normal [facility] Work Phone: Comment on above: PATIENT NOT FASTINGP ERFORMED BY: [place] [address] [facility] [id number] Information: [id number] Monocytes/100 WBC Auto (Bld) 8 % Normal [facility] Work Phone: Neutrophils (Bld) [#/Vol] 4.4 {x10E3/uL} Normal 1.4-7.0 [facility] Work Phone: Comment on above: PATIENT NOT FASTINGP ERFORMED BY: [facility]6370 [facility] [id number] Information: [id number] Neutrophils (Bld) [#/Vol] 4.4 10*3/uL Normal 1.4-7.0 [facility]; [facility] Work Phone: Neutrophils Auto #/vol (Bld) 4.4 {x10E3/uL} Normal 1.4-7.0 [facility] Work Phone: Neutrophils/100 WBC (Bld) 69 % Normal [facility] Work Phone: Comment on above: PATIENT NOT FASTINGP ERFORMED BY: PATRIA Silverio6370 [facility] [id number] Information: [id number] Neutrophils/100 WBC Auto (Bld) 69 % Normal [facility] Work Phone: Platelets (Bld) [#/Vol] 209 {x10E3/uL} Normal 150-379 [facility] Work Phone: Comment on above: PATIENT NOT FASTINGP ERFORMED BY: PATRIA Silverio6370 [facility] [id number] Information: [id number] Platelets (Bld) [#/Vol] 209 10*3/uL Normal 150-379 [facility]; [facility] Work Phone: Platelets Auto #/vol (Bld) 209 {x10E3/uL} Normal 150-379 [facility] Work Phone: RBC (Bld) [#/Vol] 4.59 {x10E6/uL} Normal 3.77-5.28 [facility] Internal Medicine Work Phone: Comment on above: PATIENT NOT FASTINGP ERFORMED BY: PATRIA Blanchard Ixbnnb3330 [facility] [id number] Information: [id number] RBC (Bld) [#/Vol] 4.59 10*6/uL Normal 3.77-5.28 [facility] Internal Medicine; [facility] Work Phone: RBC Auto #/vol (Bld) 4.59 {x10E6/uL} Normal 3.77-5.28 [facility] [facility] Work Phone: WBC (Bld) [#/Vol] 6.5 {x10E3/uL} Normal 3.4-10.8 [facility] Internal Medicine Work Phone: Comment on above: PATIENT NOT FASTINGP ERFORMED BY: PATRIA ZiteMescalero Service UnitNbtkxk4024 [facility] [id number] Information: [id number] WBC (Bld) [#/Vol] 6.5 10*3/uL Normal 3.4-10.8 [facility] Medicine; [facility] Work Phone: WBC Auto #/vol (Bld) 6.5 {x10E3/uL} Normal 3.4-10.8 [facility] Work Phone: HELICOBACTER PYLORI ANTIBODY ([id number])Ordered By: Certified Technician Specialist on 10-26-2015 H. pylori IgG IA Qn (S) {index_val} Normal 0.0-0.8 [facility] Work Phone: Comment on above: Negative <0.9 Indete rminate 0.9 - 1.0 Positive >1.0 PATIENT NOT FASTINGP ERFORMED BY: PATRIA ZiteMescalero Service UnitJaiban4654 [facility] [id number] H. pylori IgG IA Qn (S) {index_val} Normal 0.0-0.8 [facility]; [facility] Work Phone: Metabolic Panel, Comprehensi ve ([phone])Ordered By: Certified Technician Specialist on 10-26-2015 Albumin mass conc 4.0 g/dL Normal 3.6-4.8 [facility] Work Phone: Comment on above: PATIENT NOT FASTINGP ERFORMED BY: ZiteJFK Medical CenterNxvvmd4504 [facility] [id number] Albumin/Globulin mass ratio 1.7 {ratio} Normal 1.1-2.5 [facility] Work Phone: Comment on above: PATIENT NOT FASTINGP ERFORMED BY: ZiteJFK Medical CenterJlclqg9095 [facility] [id number] ALP [Catalytic activity/Vol] 104 U/L Normal 39-117 [facility]; [facility] Work Phone: ALP enzyme act/vol 104 [iU]/L Normal 39-117 [facility] Internal Medicine Work Phone: Comment on above: PATIENT NOT FASTINGP ERFORMED BY: PATRIA LabCodesiree AlvarezUsdlwx4674 [address] RoadDublin [place] [id number] ALT [Catalytic activity/Vol] 14 U/L Normal 0-32 [facility]; [facility] Work Phone: ALT enzyme act/vol 14 [iU]/L Normal 0-32 [facility] Internal Medicine Work Phone: Comment on above: PATIENT NOT FASTINGP ERFORMED BY: PATRIA [facility] Xdixvw7987 [address] RoadDublin [place] [id number] AST [Catalytic activity/Vol] 20 U/L Normal 0-40 [facility]; [facility] Work Phone: AST enzyme act/vol 20 [iU]/L Normal 0-40 [facility] Internal Medicine Work Phone: Comment on above: PATIENT NOT FASTINGP ERFORMED BY: PATRIA LabRegina AlvarezFpjnfi2773 [address] RoadDublin [place] [id number] Bilirubin mass conc 0.4 mg/dL Normal 0.0-1.2 Compr ensive Internal Medicine Work Phone: Comment on above: PATIENT NOT FASTINGP ERFORMED BY: PATRIA LabRegina AlvarezReejri5813 [address] RoadDublin [place] [id number] Calcium mass conc 9.6 mg/dL Normal 8.7-10.3 Compreh ensive Internal Medicine Work Phone: Comment on above: PATIENT NOT FASTINGP ERFORMED BY: PATRIA [facility] Zatsua5046 [address] RoadDublin [place] [id number] Chloride molar conc 103 mmol/L Normal 97-108 Compr ehensive Internal Medicine Work Phone: Comment on above: PATIENT NOT FASTINGP ERFORMED BY: CB [facility] Ybulgt3394 [address] RoadDublin [place] [id number] CO2 molar conc 23 mmol/L Normal 18-29 Comprehens kit Internal Medicine Work Phone: Comment on above: PATIENT NOT FASTINGP ERFORMED BY: PATRIA [facility] Yvugkq6670 [address] RoadDublin [place] [id number] Creatinine mass conc 0.92 mg/dL Normal 0.57-1.00 Comp rehensive Internal Medicine Work Phone: Comment on above: PATIENT NOT FASTINGP ERFORMED BY: PATRIA [facility] Gencri0684 Mcguire RoadCape Fear Valley Medical Centerin [place] [id number] GFR/1.73 sq M predicted among blacks CKD-EPI vol rate/area (S/P/Bld) 73 mL/min/1.73 Normal Comprehensiv e Internal Medicine Work Phone: Comment on above: PATIENT NOT FASTINGP ERFORMED BY: CB [facility] Daaxfm0678 Mcguire RoadCape Fear Valley Medical Centerin [place] [id number] GFR/1.73 sq M predicted among non-blacks CKD-EPI vol rate/area (S/P/Bld) 64 mL/min/1.73 Normal [facility] Work Phone: Comment on above: PATIENT NOT FASTINGP ERFORMED BY: PATRIA [facility] Mhulvc9[address] [facility] [id number] Globulin (S) [Mass/Vol] 2.4 g/dL Normal 1.5-4.5 [facility] Work Phone: Comment on above: PATIENT NOT FASTINGP ERFORMED BY: CB [facility] Ruxviz[address] [facility] [id number] Globulin Calculated mass conc (S) 2.4 g/dL Normal 1.5-4.5 [facility] Work Phone: Glucose mass conc 86 mg/dL Normal 65-99 Compreh ensive Internal Medicine Work Phone: Comment on above: PATIENT NOT FASTINGP ERFORMED BY: CB [facility] Oqgkwq[address]in [place] [id number] Potassium molar conc 4.1 mmol/L Normal 3.5-5.2 Comp rehensive Internal Medicine Work Phone: Comment on above: PATIENT NOT FASTINGP ERFORMED BY: CB [facility] Wjjoil[address] [facility] [id number] Protein mass conc 6.4 g/dL Normal 6.0-8.5 Compreh ensive Internal Medicine Work Phone: Comment on above: PATIENT NOT FASTINGP ERFORMED BY: [facility] Egrxhm1187 [facility] [id number] Sodium molar conc 142 mmol/L Normal 134-144 Compreh ensive Internal Medicine Work Phone: Comment on above: PATIENT NOT FASTINGP ERFORMED BY: [facility] Qyanwa9777 [facility] [id number] Urea nitrogen mass conc 14 mg/dL Normal 8- [facility] Work Phone: Comment on above: PATIENT NOT FASTINGP ERFORMED BY: [facility] Lobomh1089 [facility] [id number] Urea nitrogen/Creatinine mass ratio 15 mg/mg Normal - [facility] Work Phone: Comment on above: PATIENT NOT FASTINGP ERFORMED BY: [facility] Mxgqik5927 [facility] [id number] URINE ANTHONY CULTURE-IDENTIFICA [place] ([id number])Ordered By: Certified Technician Specialist on 10-26-2015 Bacteria identified Cx Nom (U) MUG Normal [facility] Work Phone: Comment on above: Mixed urogenital frida ra2,000 Colonies/mL PATIENT NOT FASTINGP ERFORMED BY: [facility] Rdejcx6321 [facility] [id number] Information: [id number] Bacteria identified Cx Nom (U) Final report Normal [facility] Work Phone: Comment on above: PATIENT NOT FASTINGP ERFORMED BY: [facility] Hiuwic9490 [facility] [id number] Information: [id number] Urinalysis, Office ([id number])Or dered By: Selina Zaragoza on 10-26-2015 Bilirubin Ql (U) Small Normal Comprehe nsive Internal Medicine Work Phone: Glucose Test strip (U) [Mass/Vol] Negative Normal [facility]; [facility] Work Phone: Glucose Test strip mass conc (U) Negative Normal [facility] Work Phone: Hemoglobin Ql (U) Negative Normal Compreh ensive Internal Medicine Work Phone: Hemoglobin Ql (U) Negative Normal Compreh ensive Internal Medicine; [facility] Work Phone: Hemoglobin Test strip Ql (U) Negative Normal [facility] Work Phone: Ketones Ql (U) Moderate Normal Comprehens kit Internal Medicine Work Phone: Leukocyte esterase Test strip Ql (U) Small Normal [facility] Work Phone: Nitrite Ql (U) Negative Normal Comprehens kit Internal Medicine Work Phone: Nitrite Ql (U) Negative Normal Comprehens kit [facility]; [facility] Work Phone: Nitrite Test strip Ql (U) Negative Normal [facility] Work Phone: pH (U) 5 [pH] Abnormal [facility] Work Phone: pH Test strip (U) 5 [pH] Abnormal Compreh ensive Internal Medicine Work Phone: Protein Ql (U) Negative Normal Comprehens kit Internal Medicine Work Phone: Protein Ql (U) Negative Normal Comprehens kit [facility]; [facility] Work Phone: Protein Test strip Ql (U) Negative Normal [facility] Work Phone: Specific gravity Relative Density (U) 1.030 1 Abnormal Comprehensi ve Internal Medicine Work Phone: Urobilinogen mass/time (24H U) Normal Normal [facility] Work Phone: T4 Total, ThyroxinOrdered By : Certified Technician Specialist on 07-16-2015 T4 mass conc 8.8 ug/dL Normal 4.8-13.9 Comprehensiv e Internal Medicine Work Phone: Thyroid Stim Hormone (TSH)Or dered By: Certified Technician Specialist on 07-16-2015 Thyrotropin Qn 1.28 {uIU/mL} Normal 0.358-3.74 Compreh ensive Internal Medicine Work Phone: Rapid Strep Test, Office ([phone])Ordered By: Krista Castillo on 09-01-2014 S. pyogenes Ag EIA Ql (Throat) Negative Normal [facility]; [facility] Work Phone: S. pyogenes Ag IA Ql (Unsp spec) Negative Normal [facility] Work Phone: Throat Culture ([id number])Ordere d By: Certified Technician Specialist on 09-01-2014 Bacteria identified Respiratory culture Nom (Unsp spec) Final report Normal [facility] Work Phone: Comment on above: PATIENT NOT FASTINGP ERFORMED BY: [employer] [facility] Fwsuva[address] [facility] [id number] Information: SRC:THRT [id number] Bacteria identified Respiratory culture Nom (Unsp spec) RRF Normal [facility] Work Phone: Comment on above: Routine respiratory dodie PATIENT NOT FASTINGP ERFORMED BY: [facility] Hqnbos7448 [facility] [id number] Information: SRC:THRT [id number] CBC WITH MANUAL DIFF (48855) Ordered By: Certified Technician Specialist on 08-13-2014 Basophils (Bld) [#/Vol] 0.0 {x10E3/uL} Normal 0.0-0.2 [facility] Work Phone: Comment on above: PATIENT WAS FASTINGP ERFORMED BY: [employer] LabMSA Managementrp Rwuyfy6756 [facility] [id number] Information: [id number] Basophils (Bld) [#/Vol] 0.0 10*3/uL Normal 0.0-0.2 [facility]; [facility] Work Phone: Basophils Auto #/vol (Bld) 0.0 {x10E3/uL} Normal 0.0-0.2 [facility] Work Phone: Basophils/100 WBC (Bld) 1 % Normal [facility] Work Phone: Comment on above: PATIENT WAS FASTINGP ERFORMED BY: [facility] Pjauyt[address] [facility] [id number] Information: [id number] Basophils/100 WBC Auto (Bld) 1 % Normal [facility] Work Phone: Eosinophils (Bld) [#/Vol] 0.1 {x10E3/uL} Normal 0.0-0.4 [facility] Work Phone: Comment on above: PATIENT WAS FASTINGP ERFORMED BY: ZiteJFK Medical CenterHoozmb1976 [facility] [id number] Information: [id number] Eosinophils (Bld) [#/Vol] 0.1 10*3/uL Normal 0.0-0.4 [facility]; [facility] Work Phone: Eosinophils Auto #/vol (Bld) 0.1 {x10E3/uL} Normal 0.0-0.4 [facility] Work Phone: Eosinophils/100 WBC (Bld) 3 % Normal [facility] Work Phone: Comment on above: PATIENT WAS FASTINGP ERFORMED BY: ZiteMikayla [place] 6[address]3970 [facility] [id number] Information: [id number] Eosinophils/100 WBC Auto (Bld) 3 % Normal [facility] Work Phone: Erythrocyte distribution width (RBC) [Ratio] 13.5 % Normal 12.3-15.4 [facility] Work Phone: Comment on above: PATIENT WAS FASTINGP ERFORMED BY: ZiteMikayla [place] 6[address]3970 [facility] [id number] Information: [id number] Erythrocyte distribution width Auto Ratio (RBC) 13.5 % Normal 12.3-15.4 [facility] Work Phone: Hematocrit (Bld) [Volume fraction] 41.5 % Normal 34.0-46.6 [facility] Work Phone: Comment on above: PATIENT WAS FASTINGP ERFORMED BY: [facility] HospitalMSA ManagementMikayla Ville 6[address]3970 [facility] [id number] Information: [id number] Hematocrit Auto Volume Fraction (Bld) 41.5 % Normal 34.0-46.6 [facility] Internal Medicine Work Phone: Hemoglobin mass conc (Bld) 14.4 g/dL Normal 11.1-15.9 [facility] Work Phone: Comment on above: PATIENT WAS FASTINGP ERFORMED BY: [place] [address] [facility] [id number] Information: [id number] Immature granulocytes #/vol (Bld) 0.0 {x10E3/uL} Normal 0.0-0.1 [facility] Work Phone: Comment on above: PATIENT WAS FASTINGP ERFORMED BY: [place] [address] [facility] [id number] Information: [id number] Immature granulocytes (Bld) [#/Vol] 0.0 10*3/uL Normal 0.0-0.1 [facility]; [facility] Work Phone: Immature granulocytes/100 WBC (Bld) 0 % Normal [facility] Work Phone: Comment on above: PATIENT WAS FASTINGP ERFORMED BY: [place] [address] [facility] [id number] Information: [id number] Lymphocytes (Bld) [#/Vol] 1.3 {x10E3/uL} Normal 0.7-3.1 [facility] Work Phone: Comment on above: PATIENT WAS FASTINGP ERFORMED BY: [facility]6370 [facility] [id number] Information: [id number] Lymphocytes (Bld) [#/Vol] 1.3 10*3/uL Normal 0.7-3.1 [facility]; [facility] Work Phone: Lymphocytes Auto #/vol (Bld) 1.3 {x10E3/uL} Normal 0.7-3.1 [facility] Work Phone: Lymphocytes/100 WBC (Bld) 27 % Normal [facility] Work Phone: Comment on above: PATIENT WAS FASTINGP ERFORMED BY: PATRIA [place] [address] [facility] [id number] Information: [id number] Lymphocytes/100 WBC Auto (Bld) 27 % Normal [facility] Work Phone: MCH (RBC) [Entitic mass] 32.4 pg Normal 26.6-33.0 [facility] Work Phone: Comment on above: PATIENT WAS FASTINGP ERFORMED BY: [place] [address] [facility] [id number] Information: [id number] MCH Auto Entitic mass (RBC) 32.4 pg Normal 26.6-33.0 [facility] Internal Medicine Work Phone: MCHC (RBC) [Mass/Vol] 34.7 g/dL Normal 31.5-35.7 [facility] Internal Medicine Work Phone: Comment on above: PATIENT WAS FASTINGP ERFORMED BY: PATRIA [place] [address] [facility] [id number] Information: [id number] MCHC Auto mass conc (RBC) 34.7 g/dL Normal 31.5-35.7 [facility] Internal Medicine Work Phone: MCV (RBC) [Entitic vol] 94 fL Normal 79-97 [facility] Work Phone: Comment on above: PATIENT WAS FASTINGP ERFORMED BY: [facility]6370 [facility] [id number] Information: [id number] MCV Auto Entitic volume (RBC) 94 fL Normal 79-97 [facility] Internal Medicine Work Phone: Monocytes (Bld) [#/Vol] 0.4 {x10E3/uL} Normal 0.1-0.9 [facility] Work Phone: Comment on above: PATIENT WAS FASTINGP ERFORMED BY: [address]in [place] [id number] Information: [id number] Monocytes (Bld) [#/Vol] 0.4 10*3/uL Normal 0.1-0.9 [facility]; [facility] Work Phone: Monocytes Auto #/vol (Bld) 0.4 {x10E3/uL} Normal 0.1-0.9 [facility] Work Phone: Monocytes/100 WBC (Bld) 9 % Normal [facility] Work Phone: Comment on above: PATIENT WAS FASTINGP ERFORMED BY: [place] [address] [facility] [id number] Information: [id number] Monocytes/100 WBC Auto (Bld) 9 % Normal [facility] Work Phone: Neutrophils (Bld) [#/Vol] 3.0 {x10E3/uL} Normal 1.4-7.0 [facility] Work Phone: Comment on above: PATIENT WAS FASTINGP ERFORMED BY: [facility]6370 [facility] [id number] Information: [id number] Neutrophils (Bld) [#/Vol] 3.0 10*3/uL Normal 1.4-7.0 [facility]; [facility] Work Phone: Neutrophils Auto #/vol (Bld) 3.0 {x10E3/uL} Normal 1.4-7.0 [facility] Work Phone: Neutrophils/100 WBC (Bld) 60 % Normal [facility] Work Phone: Comment on above: PATIENT WAS FASTINGP ERFORMED BY: [place] [address] [facility] [id number] Information: [id number] Neutrophils/100 WBC Auto (Bld) 60 % Normal [facility] Work Phone: Platelets (Bld) [#/Vol] 198 {x10E3/uL} Normal 150-379 [facility] Work Phone: Comment on above: PATIENT WAS FASTINGP ERFORMED BY: PATRIA [facility] MedicalUniversity [facility]6370 [facility] [id number] Information: [id number] Platelets (Bld) [#/Vol] 198 10*3/uL Normal 150-379 [facility]; [facility] Work Phone: Platelets Auto #/vol (Bld) 198 {x10E3/uL} Normal 150-379 [facility] Work Phone: RBC (Bld) [#/Vol] 4.44 {x10E6/uL} Normal 3.77-5.28 [facility] Internal Medicine Work Phone: Comment on above: PATIENT WAS FASTINGP ERFORMED BY: PATRIA [facility]6370 [facility] [id number] Information: [id number] RBC (Bld) [#/Vol] 4.44 10*6/uL Normal 3.77-5.28 [facility] Internal Medicine; [facility] Work Phone: RBC Auto #/vol (Bld) 4.44 {x10E6/uL} Normal 3.77-5.28 [facility] Internal Medicine Work Phone: WBC (Bld) [#/Vol] 4.8 {x10E3/uL} Normal 3.4-10.8 [facility] Internal Medicine Work Phone: Comment on above: PATIENT WAS FASTINGP ERFORMED BY: [facility]6370 [facility] [id number] Information: [id number] WBC (Bld) [#/Vol] 4.8 10*3/uL Normal 3.4-10.8 [facility] Internal Medicine; [facility] Work Phone: WBC Auto #/vol (Bld) 4.8 {x10E3/uL} Normal 3.4-10.8 [facility] Work Phone: LIPID PANEL ([id number])Ordered B y: Certified Technician Specialist on 08-13-2014 Cholesterol in HDL mass conc 61 mg/dL Normal [facility] Work Phone: Comment on above: According to ATP-III Guidelines, HDL-C >59 mg/dL is considered anegative risk factor for CHD. PATIENT WAS FASTINGP ERFORMED BY: PATRIA [facility] Oqnpnk3520 [address] RoadDublin [place] [id number] Cholesterol in LDL mass conc 93 mg/dL Normal 0-99 [facility] Work Phone: Comment on above: PATIENT WAS FASTINGP ERFORMED BY: CB [facility] Woykef[address] iPaymentDublin [place] [id number] Cholesterol in LDL/Cholesterol in HDL mass ratio 1.5 {ratio_units} Normal 0.0-3.2 [facility] Work Phone: Comment on above: LDL/HDL Ratio Men Wo men 1/2 Avg.Risk 1.0 1.5 Avg.Risk 3.6 3.2 2X Avg.Risk 6.2 5.0 3X Avg.Risk 8.0 6.1 PATIENT WAS FASTINGP ERFORMED BY: CB [facility] Vivxcw1122 [address] RoadDublin [place] [id number] Cholesterol in VLDL mass conc 53 mg/dL Abnormal 5-40 [facility] Work Phone: Comment on above: PATIENT WAS FASTINGP ERFORMED BY: PATRIA [facility] Yokmsh[address] iPaymentDublin [place] [id number] Cholesterol mass conc 207 mg/dL Abnormal 100-199 [facility] prehensive Internal Medicine Work Phone: Comment on above: PATIENT WAS FASTINGP ERFORMED BY: CB [facility] Uesdtn1343 [address] RoadDublin [place] [id number] Triglyceride mass conc 264 mg/dL Abnormal 0-149 [facility] Work Phone: Comment on above: PATIENT WAS FASTINGP ERFORMED BY: CB [facility] Otzvxb8648 [address] RoadDublin [place] [id number] METABOLIC PANEL, COMPREHENSI VE ([id number])Ordered By: Certified Technician Specialist on 08-13-2014 Albumin mass conc 4.2 g/dL Normal 3.6-4.8 [facility] Internal Medicine Work Phone: Comment on above: PATIENT WAS FASTINGP ERFORMED BY: PATRIA Silverio[address] [facility] Hospitalblin [place] [id number] Albumin/Globulin mass ratio 1.6 {ratio} Normal 1.1-2.5 [facility] Internal Medicine Work Phone: Comment on above: PATIENT WAS FASTINGP ERFORMED BY: PATRIA [facility] Labgpq[address]in [place] [id number] ALP [Catalytic activity/Vol] 80 U/L Normal 39-117 [facility]; [facility] Internal Medicine Work Phone: ALP enzyme act/vol 80 [iU]/L Normal 39-117 [facility] Internal Medicine Work Phone: Comment on above: PATIENT WAS FASTINGP ERFORMED BY: PATRIA LabMiguel Angel Pbjjbs[address] [facility] [id number] ALT [Catalytic activity/Vol] 11 U/L Normal 0-32 [facility]; [facility] Internal Medicine Work Phone: ALT enzyme act/vol 11 [iU]/L Normal 0-32 [facility] Internal Medicine Work Phone: Comment on above: PATIENT WAS FASTINGP ERFORMED BY: PATRIA Santo Alvarezlin6370 [facility] [id number] AST [Catalytic activity/Vol] 17 U/L Normal 0-40 [facility] Internal Medicine; [facility] Internal Medicine Work Phone: AST enzyme act/vol 17 [iU]/L Normal 0-40 [facility] Internal Medicine Work Phone: Comment on above: PATIENT WAS FASTINGP ERFORMED BY: PATRIA [facility] Qzzcas[address]in [place] [id number] Bilirubin mass conc 0.6 mg/dL Normal 0.0-1.2 [facility] Internal Medicine Work Phone: Comment on above: PATIENT WAS FASTINGP ERFORMED BY: PATRIA [facility] Pojibn[address] [place] [id number] Calcium mass conc 9.4 mg/dL Normal 8.6-10.2 Compreh ensive Internal Medicine Work Phone: Comment on above: PATIENT WAS FASTINGP ERFORMED BY: PATRIA LabCodesiree Uekbze[address] [facility] [id number] Chloride molar conc 101 mmol/L Normal 97-108 Compr ehensive Internal Medicine Work Phone: Comment on above: PATIENT WAS FASTINGP ERFORMED BY: PATRIA LabCodesiree AlvarezUfbnet[address] [facility] [id number] CO2 molar conc 23 mmol/L Normal 18-29 Comprehens kit Internal Medicine Work Phone: Comment on above: PATIENT WAS FASTINGP ERFORMED BY: PATRIA LabCodesiree AlvarezDlraip8834 [facility] [id number] Creatinine mass conc 0.82 mg/dL Normal 0.57-1.00 Comp rehensive Internal Medicine Work Phone: Comment on above: PATIENT WAS FASTINGP ERFORMED BY: PATRIA LabRegina AlvarezGwycao9858 [facility] [id number] GFR/1.73 sq M predicted among blacks CKD-EPI vol rate/area (S/P/Bld) 85 mL/min/1.73 Normal Comprehensiv e Internal Medicine Work Phone: Comment on above: PATIENT WAS FASTINGP ERFORMED BY: PATIRA [facility] Afttzd0209 [facility] [id number] GFR/1.73 sq M predicted among non-blacks CKD-EPI vol rate/area (S/P/Bld) 74 mL/min/1.73 Normal [facility] Work Phone: Comment on above: PATIENT WAS FASTINGP ERFORMED BY: PATRIA [facility] Zecpam[address] [facility] [id number] Globulin (S) [Mass/Vol] 2.6 g/dL Normal 1.5-4.5 [facility] Work Phone: Comment on above: PATIENT WAS FASTINGP ERFORMED BY: PATRIA [facility] Lfpjzs8905 [facility] [id number] Globulin Calculated mass conc (S) 2.6 g/dL Normal 1.5-4.5 [facility] Work Phone: Glucose mass conc 86 mg/dL Normal 65-99 Compreh ensive Internal Medicine Work Phone: Comment on above: PATIENT WAS FASTINGP ERFORMED BY: PATRIA [facility] Xjlknc8036 [address] Roadblin [place] [id number] Potassium molar conc 4.0 mmol/L Normal 3.5-5.2 Comp rehensive Internal Medicine Work Phone: Comment on above: PATIENT WAS FASTINGP ERFORMED BY: PATRIA [facility] Snmivt0830 [address] RoadDublin [place] [id number] Protein mass conc 6.8 g/dL Normal 6.0-8.5 Compreh ensive Internal Medicine Work Phone: Comment on above: PATIENT WAS FASTINGP ERFORMED BY: PATRIA [facility] Zkatbu[address] [place] [id number] Sodium molar conc 142 mmol/L Normal 134-144 Compreh ensive Internal Medicine Work Phone: Comment on above: PATIENT WAS FASTINGP ERFORMED BY: PATRIA LabCoedsiree AlvarezTcvxxe[address] [facility] [place] [id number] Urea nitrogen mass conc 17 mg/dL Normal 8-27 [facility] Work Phone: Comment on above: PATIENT WAS FASTINGP ERFORMED BY: PATRIA [facility] Cathzt[address] [facility] [place] [id number] Urea nitrogen/Creatinine mass ratio 21 mg/mg Normal 11-26 [facility] Work Phone: Comment on above: PATIENT WAS FASTINGP ERFORMED BY: PATRIA [facility] Chqaau9462 [address] RoadDublin [place] [id number] TSH ([id number])Ordered By: Nasra Chapman on 08-13-2014 Thyrotropin Qn 1.440 {uIU/mL} Normal 0.450-4.50 0 [facility] Work Phone: Comment on above: PATIENT WAS FASTINGP ERFORMED BY: PARTIA [facility] Fzejom8319 [facility] [id number] Lipid Panel ([id number])Ordered B y: Certified Technician Specialist on 01-01-2014 Cholesterol in HDL mass conc 62 mg/dL Normal [facility] Work Phone: Comment on above: According to ATP-III Guidelines, HDL-C >59 mg/dL is considered anegative risk factor for CHD. recheck in 3 months; PATIENT WAS FASTINGPERFORMED BY: CB [facility] Tpsiho7422 [address] [facility] [id number] Cholesterol in LDL mass conc 84 mg/dL Normal 0-99 [facility] Work Phone: Comment on above: recheck in 3 months; PATIENT WAS FASTINGPERFORMED BY: CB [facility] Dhhczz7619 [address] [facility] [id number] Cholesterol in LDL/Cholesterol in HDL mass ratio 1.4 {ratio_units} Normal 0.0-3.2 [facility] Work Phone: Comment on above: recheck in 3 months; PATIENT WAS FASTINGPERFORMED BY: CB [facility] Sacjsv9951 [facility] [id number] Cholesterol in VLDL mass conc 43 mg/dL Abnormal 5-40 [facility] Work Phone: Comment on above: recheck in 3 months; PATIENT WAS FASTINGPERFORMED BY: CB [facility] Ahgzun8674 [facility] [id number] Cholesterol mass conc 189 mg/dL Normal 100-199 [facility] Internal Medicine Work Phone: Comment on above: recheck in 3 months; PATIENT WAS FASTINGPERFORMED BY: CB [facility] Fipnoj0391 [facility] [id number] Triglyceride mass conc 215 mg/dL Abnormal 0-149 [facility] Work Phone: Comment on above: recheck in 3 months; PATIENT WAS FASTINGPERFORMED BY: CB [facility] Hacaba4512 [facility] [id number] Metabolic Panel, Comprehensi ve ([id number])Ordered By: Certified Technician Specialist on 01-01-2014 Albumin mass conc 4.3 g/dL Normal 3.6-4.8 Compreh ensive Internal Medicine Work Phone: Comment on above: recheck in 3 months; PATIENT WAS FASTINGPERFORMED BY: [place] [id number] [facility] [id number] Information: [id number] Albumin/Globulin mass ratio 1.9 {ratio} Normal 1.1-2.5 [facility] Internal Medicine Work Phone: Comment on above: recheck in 3 months; PATIENT WAS FASTINGPERFORMED BY: [place] [address] [facility] [id number] Information: [id number] ALP [Catalytic activity/Vol] 78 U/L Normal 39-117 [facility]; [facility] Internal Medicine Work Phone: ALP enzyme act/vol 78 [iU]/L Normal 39-117 [facility] Internal Medicine Work Phone: Comment on above: recheck in 3 months; PATIENT WAS FASTINGPERFORMED BY: [place] [address] [facility] [id number] Information: [id number] ALT [Catalytic activity/Vol] 13 U/L Normal 0-32 [facility]; [facility] Internal Medicine Work Phone: ALT enzyme act/vol 13 [iU]/L Normal 0-32 [facility] Internal Medicine Work Phone: Comment on above: recheck in 3 months; PATIENT WAS FASTINGPERFORMED BY: [place] [address] [facility] [id number] Information: [id number] AST [Catalytic activity/Vol] 22 U/L Normal 0-40 [facility]; [facility] Internal Medicine Work Phone: AST enzyme act/vol 22 [iU]/L Normal 0-40 [facility] Internal Medicine Work Phone: Comment on above: recheck in 3 months; PATIENT WAS FASTINGPERFORMED BY: [place] [address] [facility] [id number] Information: [id number] Bilirubin mass conc 0.5 mg/dL Normal 0.0-1.2 [facility]: Comment on above: recheck in 3 months; PATIENT WAS FASTINGPERFORMED BY: PATRIA [facility] Svpkak8877 [facility] [id number] Information: [id number] Calcium mass conc 9.5 mg/dL Normal 8.6-10.2 Compreh ensive Internal Medicine Work Phone: Comment on above: recheck in 3 months; PATIENT WAS FASTINGPERFORMED BY: PATRIA [facility] Rzcyxb7598 [facility] [id number] Information: [id number] Chloride molar conc 104 mmol/L Normal 97-108 [facility] Work Phone: Comment on above: recheck in 3 months; PATIENT WAS FASTINGPERFORMED BY: PATRIA [facility] Xaiixu6637 [facility] [id number] Information: [id number] CO2 molar conc 27 mmol/L Normal 19-28 [facility] Internal Medicine Work Phone: Comment on above: recheck in 3 months; PATIENT WAS FASTINGPERFORMED BY: PATRIA [facility] Qeiyub2677 [facility] [id number] Information: [id number] Creatinine mass conc 0.88 mg/dL Normal 0.57-1.00 [facility] Work Phone: Comment on above: recheck in 3 months; PATIENT WAS FASTINGPERFORMED BY: PATRIA [facility] Yhufkk8220 [facility] [id number] Information: [id number] GFR/1.73 sq M predicted among blacks CKD-EPI vol rate/area (S/P/Bld) 78 mL/min/1.73 Normal Comprehensiv e Internal Medicine Work Phone: Comment on above: recheck in 3 months; PATIENT WAS FASTINGPERFORMED BY: PATRIA [facility] Akyzgr6010 [facility] [id number] Information: [id number] GFR/1.73 sq M predicted among non-blacks CKD-EPI vol rate/area (S/P/Bld) 68 mL/min/1.73 Normal [facility] Work Phone: Comment on above: recheck in 3 months; PATIENT WAS FASTINGPERFORMED BY: [place] [address] [facility] [id number] Information: [id number] Globulin (S) [Mass/Vol] 2.3 g/dL Normal 1.5-4.5 [facility] Work Phone: Comment on above: recheck in 3 months; PATIENT WAS FASTINGPERFORMED BY: [place] [address] [facility] [id number] Information: [id number] Globulin Calculated mass conc (S) 2.3 g/dL Normal 1.5-4.5 [facility] Work Phone: Glucose mass conc 81 mg/dL Normal 65-99 Compreh ensive Internal Medicine Work Phone: Comment on above: recheck in 3 months; PATIENT WAS FASTINGPERFORMED BY: [address] [id number] Information: [id number] Potassium molar conc 4.0 mmol/L Normal 3.5-5.2 Comp rehensive Internal Medicine Work Phone: Comment on above: recheck in 3 months; PATIENT WAS FASTINGPERFORMED BY: [facility]6370 [facility] [id number] Information: [id number] Protein mass conc 6.6 g/dL Normal 6.0-8.5 Compreh ensive Internal Medicine Work Phone: Comment on above: recheck in 3 months; PATIENT WAS FASTINGPERFORMED BY: [place] [address] [facility] [id number] Information: [id number] Sodium molar conc 142 mmol/L Normal 134-144 Compreh ensive Internal Medicine Work Phone: Comment on above: recheck in 3 months; PATIENT WAS FASTINGPERFORMED BY: [employer] Brcabb3308 [facility] [id number] Information: [id number] Urea nitrogen mass conc 19 mg/dL Normal 8-27 [facility] Work Phone: Comment on above: recheck in 3 months; PATIENT WAS FASTINGPERFORMED BY: [facility] Toldou9024 [facility] [id number] Information: [id number] Urea nitrogen/Creatinine mass ratio 22 mg/mg Normal 11- [facility] Work Phone: Comment on above: recheck in 3 months; PATIENT WAS FASTINGPERFORMED BY: [facility] CenterJojeuw5534 [facility] [id number] Information: [id number] Urinalysis, Office ([id number])Or dered By: Selina Zaragoza on 08-23-2013 Bilirubin Ql (U) Negative Normal Comprehe nsive Internal Medicine Work Phone: Bilirubin Ql (U) Negative Normal Comprehe nsive Internal Medicine; [facility] Work Phone: Glucose Test strip (U) [Mass/Vol] Negative Normal [facility]; [facility] Work Phone: Glucose Test strip mass conc (U) Negative Normal [facility] Work Phone: Hemoglobin Ql (U) Hemolyzed Trace Normal Co mprehensive [facility] Work Phone: Hemoglobin Test strip Ql (U) Hemolyzed Trace Normal [facility] Work Phone: Ketones Ql (U) Negative Normal Comprehens kit [facility] Medicine Work Phone: Ketones Ql (U) Negative Normal [facility]prehens [facility]; [facility] Work Phone: Leukocyte esterase Test strip Ql (U) Negative Normal [facility] Work Phone: Leukocyte esterase Test strip Ql (U) Negative Normal [facility]; [facility] Work Phone: Nitrite Ql (U) Negative Normal Comprehens [facility] Work Phone: Nitrite Ql (U) Negative Normal Comprehens [facility]; [facility] Work Phone: Nitrite Test strip Ql (U) Negative Normal [facility] Work Phone: pH (U) 6.0 [pH] Normal [facility] Work Phone: Comment on above: 5.5 pH Test strip (U) 6.0 [pH] Normal Compreh ensive Internal Medicine Work Phone: Comment on above: 5.5 Protein Ql (U) Negative Normal [facility]prehens [facility] Work Phone: Protein Ql (U) Negative Normal [facility]prehens [facility]; [facility] Work Phone: Protein Test strip Ql (U) Negative Normal [facility] Work Phone: Specific gravity Relative Density (U) 1.010 1 Normal Comprehensi ve Internal Medicine Work Phone: Urobilinogen mass/time (24H U) Normal Normal [facility] Work Phone: CALCIFIDIOL (41285) VIT D 25 Ordered By: Certified Technician Specialist on 06-17-2013 25-Hydroxyvitamin D2+25-Hydroxyvitamin D3 mass conc 32.6 ng/mL Normal 30.0-100.0 [facility] Work Phone: Comment on above: Vitamin D deficiency has been defined by the [place] ofMedicine and an Endocrine Society practice guideline as alevel of serum 25-OH vitamin D less than 20 ng/mL (1,2).The Endocrine Society went on to further define vitamin Dinsufficiency as a level between 21 and 29 ng/mL (2).1. IOM ([place] of Medicine). 2010. Dietary reference intakes for calcium and D. Yuan [place]: The National Academies Press.2. Joe MF, Carrie [place], Mellisa ST, et al. Evaluation, treatment, and prevention of vitamin D deficiency: an Endocrine Society clinical practice guideline. JCEM. 2010; 96(7):1911-30. PATIENT WAS FASTINGP ERFORMED BY: [facility]6370 [facility] [id number] CBC with manual diff (74932) Ordered By: Certified Technician Specialist on 06-17-2013 Basophils (Bld) [#/Vol] 0.0 {x10E3/uL} Normal 0.0-0.2 [facility] Work Phone: Comment on above: PATIENT WAS FASTINGP ERFORMED BY: [facility]6370 [facility] [id number] Information: [id number] Basophils (Bld) [#/Vol] 0.0 10*3/uL Normal 0.0-0.2 [facility]; [facility] Work Phone: Basophils Auto #/vol (Bld) 0.0 {x10E3/uL} Normal 0.0-0.2 [facility] Work Phone: Basophils/100 WBC (Bld) 0 % Normal 0-3 [facility] Work Phone: Comment on above: PATIENT WAS FASTINGP ERFORMED BY: [facility]6370 [facility] [id number] Information: [id number] Basophils/100 WBC Auto (Bld) 0 % Normal 0-3 [facility] Work Phone: Eosinophils (Bld) [#/Vol] 0.1 {x10E3/uL} Normal 0.0-0.4 [facility] Work Phone: Comment on above: PATIENT WAS FASTINGP ERFORMED BY: [facility]6370 [facility] [id number] Information: [id number] Eosinophils (Bld) [#/Vol] 0.1 10*3/uL Normal 0.0-0.4 [facility]; [facility] Work Phone: Eosinophils Auto #/vol (Bld) 0.1 {x10E3/uL} Normal 0.0-0.4 [facility] Work Phone: Eosinophils/100 WBC (Bld) 2 % Normal 0-5 [facility] Work Phone: Comment on above: PATIENT WAS FASTINGP ERFORMED BY: PATRIA [address] [id number] Information: [id number] Eosinophils/100 WBC Auto (Bld) 2 % Normal 0-5 [facility] Work Phone: Erythrocyte distribution width (RBC) [Ratio] 14.2 % Normal 12.3-15.4 [facility] Work Phone: Comment on above: PATIENT WAS FASTINGP ERFORMED BY: PATRIA [address] [id number] Information: [id number] Erythrocyte distribution width Auto Ratio (RBC) 14.2 % Normal 12.3-15.4 [facility] Work Phone: Hematocrit (Bld) [Volume fraction] 41.7 % Normal 34.0-46.6 [facility] Work Phone: Comment on above: PATIENT WAS FASTINGP ERFORMED BY: PATRIA [address] [id number] Information: [id number] Hematocrit Auto Volume Fraction (Bld) 41.7 % Normal 34.0-46.6 Comprehens [facility] Internal Medicine Work Phone: Hemoglobin mass conc (Bld) 14.0 g/dL Normal 11.1-15.9 [facility] Work Phone: Comment on above: PATIENT WAS FASTINGP ERFORMED BY: [address] [id number] Information: [id number] Immature granulocytes #/vol (Bld) 0.0 {x10E3/uL} Normal 0.0-0.1 [facility] Work Phone: Comment on above: PATIENT WAS FASTINGP ERFORMED BY: [address]Dublin [place] [id number] Information: [id number] Immature granulocytes (Bld) [#/Vol] 0.0 10*3/uL Normal 0.0-0.1 [facility]; [facility] Work Phone: Immature granulocytes/100 WBC (Bld) 0 % Normal 0-2 [facility] Work Phone: Comment on above: PATIENT WAS FASTINGP ERFORMED BY: PATRIA [place] [address] [facility] [id number] Information: [id number] Lymphocytes (Bld) [#/Vol] 1.3 {x10E3/uL} Normal 0.7-3.1 [facility] Work Phone: Comment on above: PATIENT WAS FASTINGP ERFORMED BY: PATRIA [address] [id number] Information: [id number] Lymphocytes (Bld) [#/Vol] 1.3 10*3/uL Normal 0.7-3.1 [facility]; [facility] Work Phone: Lymphocytes Auto #/vol (Bld) 1.3 {x10E3/uL} Normal 0.7-3.1 [facility] Work Phone: Lymphocytes/100 WBC (Bld) 25 % Normal 14-46 [facility] Work Phone: Comment on above: PATIENT WAS FASTINGP ERFORMED BY: PATRIA [place] [address] [facility] [id number] Information: [id number] Lymphocytes/100 WBC Auto (Bld) 25 % Normal 14-46 [facility] Work Phone: MCH (RBC) [Entitic mass] 29.9 pg Normal 26.6-33.0 [facility] Work Phone: Comment on above: PATIENT WAS FASTINGP ERFORMED BY: [place] [address] [facility] [id number] Information: [id number],[id number] MCH Auto Entitic mass (RBC) 29.9 pg Normal 26.6-33.0 [facility] Work Phone: MCHC (RBC) [Mass/Vol] 33.6 g/dL Normal 31.5-35.7 [facility] prehensive Internal Medicine Work Phone: Comment on above: PATIENT WAS FASTINGP ERFORMED BY: ZiteMikayla [place] [address] [facility] [id number] Information: [id number] MCHC Auto mass conc (RBC) 33.6 g/dL Normal 31.5-35.7 [facility] Internal Medicine Work Phone: MCV (RBC) [Entitic vol] 89 fL Normal 79-97 [facility] Internal Medicine Work Phone: Comment on above: PATIENT WAS FASTINGP ERFORMED BY: ZiteJFK Medical CenterRuwmmf45[address] [place] [address] [id number] Information: [id number] MCV Auto Entitic volume (RBC) 89 fL Normal 79-97 [facility] Internal Medicine Work Phone: Monocytes (Bld) [#/Vol] 0.5 {x10E3/uL} Normal 0.1-0.9 [facility] Internal Medicine Work Phone: Comment on above: PATIENT WAS FASTINGP ERFORMED BY: [place]iteMikay[place] [address] [facility] [id number] Information: [id number] Monocytes (Bld) [#/Vol] 0.5 10*3/uL Normal 0.1-0.9 [facility]; [facility] Work Phone: Monocytes Auto #/vol (Bld) 0.5 {x10E3/uL} Normal 0.1-0.9 [facility] Internal Medicine Work Phone: Monocytes/100 WBC (Bld) 9 % Normal 4-12 [facility] Work Phone: Comment on above: PATIENT WAS FASTINGP ERFORMED BY: Zite[address] [id number] Information: [id number] Monocytes/100 WBC Auto (Bld) 9 % Normal 4-12 [facility] Work Phone: Neutrophils (Bld) [#/Vol] 3.2 {x10E3/uL} Normal 1.4-7.0 [facility] Work Phone: Comment on above: PATIENT WAS FASTINGP ERFORMED BY: [place] [address] [facility] [id number] Information: [id number] Neutrophils (Bld) [#/Vol] 3.2 10*3/uL Normal 1.4-7.0 [facility]; [facility] Work Phone: Neutrophils Auto #/vol (Bld) 3.2 {x10E3/uL} Normal 1.4-7.0 [facility] Work Phone: Neutrophils/100 WBC (Bld) 64 % Normal 40-74 [facility] Work Phone: Comment on above: PATIENT WAS FASTINGP ERFORMED BY: [facility]iteJ[facility] CenterXldnay6370 [facility] [id number] Information: [id number] Neutrophils/100 WBC Auto (Bld) 64 % Normal 40-74 [facility] Work Phone: Platelets (Bld) [#/Vol] 198 {x10E3/uL} Normal 155-379 [facility] Work Phone: Comment on above: PATIENT WAS FASTINGP ERFORMED BY: [facility]iteJ[facility] CenterHnqtzl4064 [facility] [id number] Information: [id number] Platelets (Bld) [#/Vol] 198 10*3/uL Normal 155-379 [facility]; [facility] Work Phone: Platelets Auto #/vol (Bld) 198 {x10E3/uL} Normal 155-379 [facility] Work Phone: RBC (Bld) [#/Vol] 4.68 {x10E6/uL} Normal 3.77-5.28 [facility] Internal Medicine Work Phone: Comment on above: PATIENT WAS FASTINGP ERFORMED BY: PATRIA Alvarezlin6370 [facility] [id number] Information: [id number] RBC (Bld) [#/Vol] 4.68 10*6/uL Normal 3.77-5.28 [facility] Internal Medicine; [facility] Work Phone: RBC Auto #/vol (Bld) 4.68 {x10E6/uL} Normal 3.77-5.28 [facility] Work Phone: WBC (Bld) [#/Vol] 5.1 {x10E3/uL} Normal 3.4-10.8 [facility] Internal Medicine Work Phone: Comment on above: PATIENT WAS FASTINGP ERFORMED BY: PATRIA Blanchard Qaxgqt8122 [facility] [id number] Information: [id number] WBC (Bld) [#/Vol] 5.1 10*3/uL Normal 3.4-10.8 [facility] Internal Medicine; [facility] Work Phone: WBC Auto #/vol (Bld) 5.1 {x10E3/uL} Normal 3.4-10.8 [facility] Internal Medicine Work Phone: Ferritin ([id number])Ordered By: Certified Technician Specialist on 06-17-2013 Ferritin mass conc 43 ng/mL Normal 15-150 [facility] Internal Medicine Work Phone: Comment on above: PATIENT WAS FASTINGP ERFORMED BY: PATRIA ZiteJFK Medical CenterYpeeqi8387 [facility] [id number] Lipid Panel (56159)Ordered B y: Certified Technician Specialist on 06-17-2013 Cholesterol in HDL mass conc 67 mg/dL Normal [facility] Work Phone: Comment on above: According to ATP-III Guidelines, HDL-C >59 mg/dL is considered anegative risk factor for CHD. PATIENT WAS FASTINGP ERFORMED BY: CB [facility] Upmbxg7657 [address] RoadDublin [place] [id number] Cholesterol in LDL mass conc 156 mg/dL Abnormal 0-99 [facility] Work Phone: Comment on above: PATIENT WAS FASTINGP ERFORMED BY: PATRIA [facility] Bgsrvr5468 [address] RoadDublin [place] [id number] Cholesterol in LDL/Cholesterol in HDL mass ratio 2.3 {ratio_units} Normal 0.0-3.2 [facility] Work Phone: Comment on above: PATIENT WAS FASTINGP ERFORMED BY: PATRIA [facility] Yxwqkf3830 [address]ire RoadDublin [place] [id number] Cholesterol in VLDL mass conc 45 mg/dL Abnormal 5-40 [facility] Work Phone: Comment on above: PATIENT WAS FASTINGP ERFORMED BY: PATRIA [facility] Qsusjp7141 [address] RoadDublin [place] [id number] Cholesterol mass conc 268 mg/dL Abnormal 100-199 [facility] prehensive Internal Medicine Work Phone: Comment on above: PATIENT WAS FASTINGP ERFORMED BY: PATRIA [facility] Yuqgqs1499 [address] RoadDublin [place] [id number] Triglyceride mass conc 225 mg/dL Abnormal 0-149 [facility] Work Phone: Comment on above: PATIENT WAS FASTINGP ERFORMED BY: PATRIA [facility] Tupbee9435 [address] RoadDublin [place] [id number] Metabolic Panel, Comprehensi ve ([id number])Ordered By: Certified Technician Specialist on 06-17-2013 Albumin mass conc 4.0 g/dL Normal 3.6-4.8 Compreh ensive Internal Medicine Work Phone: Comment on above: PATIENT WAS FASTINGP ERFORMED BY: PATRIA [facility] Apicjf4763 [address] RoadDublin [place] [id number] Albumin/Globulin mass ratio 1.5 {ratio} Normal 1.1-2.5 [facility] Work Phone: Comment on above: PATIENT WAS FASTINGP ERFORMED BY: PATRIA [facility] Syjwed2412 [address] RoadDublin [place] [id number] ALP [Catalytic activity/Vol] 97 U/L Normal 47-112 [facility]; [facility] Internal Medicine Work Phone: ALP enzyme act/vol 97 [iU]/L Normal 47-112 [facility] Internal Medicine Work Phone: Comment on above: PATIENT WAS FASTINGP ERFORMED BY: PATRIA Alvarezlin6370 [address] RoadDublin [place] [id number] ALT [Catalytic activity/Vol] 13 U/L Normal 0-32 [facility] Internal Medicine; [facility] Internal Medicine Work Phone: ALT enzyme act/vol 13 [iU]/L Normal 0-32 [facility] Internal Medicine Work Phone: Comment on above: PATIENT WAS FASTINGP ERFORMED BY: PATRIA Alvarezlin6370 [address] RoadDublin [place] [id number] AST [Catalytic activity/Vol] 22 U/L Normal 0-40 [facility] Internal Medicine; [facility] Internal Medicine Work Phone: AST enzyme act/vol 22 [iU]/L Normal 0-40 [facility] Internal Medicine Work Phone: Comment on above: PATIENT WAS FASTINGP ERFORMED BY: PATRIA Silverio6370 [address] Roadblin [place] [id number] Bilirubin mass conc 0.4 mg/dL Normal 0.0-1.2 [facility] Internal Medicine Work Phone: Comment on above: PATIENT WAS FASTINGP ERFORMED BY: PATRIA Alvarezlin6370 [address] [facility]bl[facility] [place] [id number] Calcium mass conc 9.5 mg/dL Normal 8.6-10.2 [facility] Internal Medicine Work Phone: Comment on above: PATIENT WAS FASTINGP ERFORMED BY: PATRIA LabRegina AlvarezKbutyx0403 [address]Dublin [place] [id number] Chloride molar conc 104 mmol/L Normal 97-108 [facility] Internal Medicine Work Phone: Comment on above: PATIENT WAS FASTINGP ERFORMED BY: PATRIA LabRegnia AlvarezXcfrqh6892 [address] RoadDublin [place] [id number] CO2 molar conc 24 mmol/L Normal 19-28 [facility] Internal Medicine Work Phone: Comment on above: PATIENT WAS FASTINGP ERFORMED BY: PATRIA LabCodesiree SilverioZjekoo3462 [facility] [id number] Creatinine mass conc 0.73 mg/dL Normal 0.57-1.00 Comp rehensive Internal Medicine Work Phone: Comment on above: PATIENT WAS FASTINGP ERFORMED BY: PATRIA [facility] Kvjmcz5659 [facility] [id number] GFR/1.73 sq M predicted among blacks CKD-EPI vol rate/area (S/P/Bld) 99 mL/min/1.73 Normal Comprehensiv e Internal Medicine Work Phone: Comment on above: PATIENT WAS FASTINGP ERFORMED BY: PATRIA LabCodesiree AlvarezVxjsvr1709 [facility] [id number] GFR/1.73 sq M predicted among non-blacks CKD-EPI vol rate/area (S/P/Bld) 85 mL/min/1.73 Normal [facility] Work Phone: Comment on above: PATIENT WAS FASTINGP ERFORMED BY: PATRIA LabCodesiree Vbbzka2760 [facility] [id number] Globulin (S) [Mass/Vol] 2.6 g/dL Normal 1.5-4.5 [facility] Work Phone: Comment on above: PATIENT WAS FASTINGP ERFORMED BY: PATRIA [facility] Utkedq7119 [facility] [id number] Globulin Calculated mass conc (S) 2.6 g/dL Normal 1.5-4.5 [facility] Work Phone: Glucose mass conc 83 mg/dL Normal 65-99 Compreh ensive Internal Medicine Work Phone: Comment on above: PATIENT WAS FASTINGP ERFORMED BY: PATRIA [facility] Pfkfcd8533 [facility] [id number] Potassium molar conc 4.0 mmol/L Normal 3.5-5.2 Comp rehensive Internal Medicine Work Phone: Comment on above: PATIENT WAS FASTINGP ERFORMED BY: PATRIA [facility] Yzjrnn8538 [facility] [id number] Protein mass conc 6.6 g/dL Normal 6.0-8.5 Compreh ensive Internal Medicine Work Phone: Comment on above: PATIENT WAS FASTINGP ERFORMED BY: [facility] Rbekjt2554 [facility] [id number] Sodium molar conc 141 mmol/L Normal 134-144 Compreh ensive Internal Medicine Work Phone: Comment on above: PATIENT WAS FASTINGP ERFORMED BY: [facility] Hiycje8301 [facility] [id number] Urea nitrogen mass conc 16 mg/dL Normal 8-27 [facility] Work Phone: Comment on above: PATIENT WAS FASTINGP ERFORMED BY: [facility] Juziar6977 [facility] [id number] Urea nitrogen/Creatinine mass ratio 22 mg/mg Normal 11-26 [facility] Work Phone: Comment on above: PATIENT WAS FASTINGP ERFORMED BY: [facility] Godtlo5717 [facility] [id number] TSH ([id number])Ordered By: Syste m Staffing Assistant on 06-17-2013 Thyrotropin Qn 1.050 {uIU/mL} Normal 0.450-4.50 0 [facility] Work Phone: Comment on above: PATIENT WAS FASTINGP ERFORMED BY: [facility] Xgebvb5132 [facility] [id number] BILAT SCRN DIGITAL & CADOrde red By: Certified Technician Specialist on 06-18-2012 BILAT SCRN DIGITAL & CAD See Note Normal [facility] Work Phone: Comment on above: MAMMOGRAPHY - BILATE RAL SCREENING REASON FOR EXAM: Female, 66 years old. Routine annual screeningexamination. PERTINENT HISTORY: Grandmother with breast cancer. TECHNIQUE: Digital examination. Mediolateral oblique (MLO) andcraniocaudad (CC) views of both breasts were obtained. CAD: CAD wasperformed on this study. COMPARISON: Comparison is made with prior examinations dated April 19, 2010. FINDINGS:The breast composition is almost entirely fatty replaced. There are no dominant masses or suspicious calcifications. No other significant abnormalities are identified. There has been nosignificant change since the prior study. IMPRESSION:Stable bilateral screening mammogram. Yearly follow-up recommended. (A) ASSESSMENT CATEGORY:BIRADS Category 2: Benign finding(s). A letter regarding these resultswill be sent to the patient by the facility within 30 days. Approximately 10% of breast cancers are not detected by mammography. Anormal mammogram should not delay biopsy of a clinically suspiciousabnormality. Signed:Wayne Rabago M.D.June 18, 2012 at 12:43:13 PM [id number] Signed GP/GP If you are the referring physician and would like to consult with theradiologist who provided this interpretation, please contact Melody Underwood at [phone]. If this radiologist is unavailable, youwill be directed to another radiologist to assist. If you are a patient with a question regarding this report, pleasecontactyour referring physician directly. Professional Interpretation Provided By: Sajan, Phone , These documents contain legally protected and confidential healthinformation intended only for the use of the individual or entity namedabove. If you are not the intended recipient, you are hereby notifiedthatany disclosure, copying, distribution, or other use of these documents isstrictly prohibited. If you have received this information in error,pleasenotify the sender immediately and arrange for the return or destructionofthese documents. Dictated on 06/18/12 1030 by Reid Rabago MDscribed on 06/18/12 1248 by ITS IMPORTSign by Wayne Rabago MD on 06/18/12 1250 Sign by: Wayne Rabago MD CHEST WITH CONTRASTOrdered B y: Certified Technician Specialist on 05-07-2012 CHEST WITH CONTRAST See Note Normal Compr ehensive Internal Medicine Work Phone: Comment on above: PROCEDURE: CT CHEST WITH CONTRAST REASON FOR EXAM: Female, 66 years old. Elevated d-dimer, irregularheartbeat RADIATION DOSAGE (If Supplied By Facility): CTDIvol = ( 30.94 ) mGy, DLP=( 743.26 ) mGycm TECHNIQUE: High resolution transaxial imaging was performed followingintravenous administration of 100 ml of Isovue 370 contrast material.Multiplanar coronal and sagittal images were reformatted. COMPARISON: 01/11/10 chest x-ray. FINDINGS:Heterogeneously enlarged left thyroid lobe The lungs are normal. There is no demonstrated pleural abnormality. Normal heart and pericardium. Normal mediastinum. Normal hilar regions. Normal enhancement of the pulmonary arteries. Normal enhanced thoracic aorta and visualized great vessels. Normal osseous structures. Multiple liver cysts. IMPRESSION:No pulmonary embolus.Heterogeneously enlarged left thyroid lobe. Signed:Moises Cronin D.O.May 07, 2012 at 8:20:03 PM [id number] Signed BE/BE If you are the referring physician and would like to consult with theradiologist who provided this interpretation, please contact Moises Cronin D.O. at [phone]. If this radiologist is unavailable, you will bedirected to another radiologist to assist. If you are a patient with a question regarding this report, pleasecontactyour referring physician directly. Professional Interpretation Provided By: Sajan, Phone , These documents contain legally protected and confidential healthinformation intended only for the use of the individual or entity namedabove. If you are not the intended recipient, you are hereby notifiedthatany disclosure, copying, distribution, or other use of these documents isstrictly prohibited. If you have received this information in error,pleasenotify the sender immediately and arrange for the return or destructionofthese documents. Dictated on 05/07/121929 by Kelli Cronin MDranscribed on 05/07/122034 by ITS IMPORTSign by Moises Cronin MD on 05/07/122035 Sign by: Moises Cronin MD DDIMQOrdered By: System Cecelia dominguez on 05-07-2012 DDIMQ 1.62 {FEUug/mL} Abnormal 0.22-0.48 Comprehen [facility] Internal Medicine Work Phone: Comment on above: D-Dimer ELEVATED: Ad ditional studies and clinicalassessments are indicated to conclude diagnosis of:Deep Vein Thrombosis (DVT) or Pulmonary Embolism (PE)CRITICAL VALUE REPEATED AND VERIFIED. CALLED TO WAXAJR77/27/12 LIZA ROSENTHAL.RESULTS READ BACK BY KELSEY EDWARDS . KOrdered By: Certified Technician Specialist on 05-07-2012 Potassium molar conc 3.7 mmol/L Normal 3.5-5.1 Comp rehensive Internal Medicine Work Phone: MGOrdered By: Certified Technician Specialist on 05-07-2012 Magnesium mass conc 2.1 mg/dL Normal 1.8-2.4 Compr ensive Internal Medicine Work Phone: Hemoglobin Glyclated (HGB A1 C) ([id number])Ordered By: Kelsey Valencia on 05-03-2012 Hemoglobin A1c/Hemoglobin.total mass fraction (Bld) 5.4 % Normal 4.6 - 7.1 Comprehensiv e Internal Medicine Work Phone: Metabolic Panel, Basic ([phone])Ordered By: Certified Technician Specialist on 05-01-2012 Calcium mass conc 9.8 mg/dL Normal 8.6-10.2 Compreh ensive Internal Medicine Work Phone: Comment on above: re check 2 weeks; PA TIENT NOT FASTINGPERFORMED BY: [facility] Turwxv3704 [facility] [id number] Information: [id number] Chloride molar conc 101 mmol/L Normal 97-108 Compr ensive Internal Medicine Work Phone: Comment on above: re check 2 weeks; PA TIENT NOT FASTINGPERFORMED BY: [employer] LabCoConnect[employer]Sell Golzdb7293 [facility] [id number] Information: [id number] CO2 molar conc 23 mmol/L Normal 20-32 Comprehens kit Internal Medicine Work Phone: Comment on above: re check 2 weeks; PA TIENT NOT FASTINGPERFORMED BY: PATRIA [facility] Oufwox1980 [facility] [id number] Information: [id number] Creatinine mass conc 0.86 mg/dL Normal 0.57-1.00 Comp rehensive Internal Medicine Work Phone: Comment on above: re check 2 weeks; PA TIENT NOT FASTINGPERFORMED BY: CB [facility] Ssllvp3322 [facility] [id number] Information: [id number] GFR/1.73 sq M predicted among blacks CKD-EPI vol rate/area (S/P/Bld) 81 mL/min/1.73 Normal Comprehensiv e Internal Medicine Work Phone: Comment on above: re check 2 weeks; PA TIENT NOT FASTINGPERFORMED BY: PATRIA [facility] Bxefpu0514 [facility] [id number] Information: [id number] GFR/1.73 sq M predicted among non-blacks CKD-EPI vol rate/area (S/P/Bld) 71 mL/min/1.73 Normal [facility] Work Phone: Comment on above: re check 2 weeks; PA TIENT NOT FASTINGPERFORMED BY: PATRIA [facility] Ioeaxw1586 [facility] [id number] Information: [id number] Glucose mass conc 88 mg/dL Normal 65-99 Compreh ensive Internal Medicine Work Phone: Comment on above: re check 2 weeks; PA TIENT NOT FASTINGPERFORMED BY: CB [facility] Zvbxjr4119 [facility] [id number] Information: [id number] Potassium molar conc 4.2 mmol/L Normal 3.5-5.2 Comp rehensive Internal Medicine Work Phone: Comment on above: re check 2 weeks; PA TIENT NOT FASTINGPERFORMED BY: CB [facility] Aayysc2232 [facility] [id number] Information: [id number] Sodium molar conc 141 mmol/L Normal 134-144 Compreh ensive Internal Medicine Work Phone: Comment on above: re check 2 weeks; TIARRA BEST NOT FASTINGPERFORMED BY: [facility] Jmhgsi1665 [facility] [id number] Information: [id number] Urea nitrogen mass conc 18 mg/dL Normal 8-27 [facility] Work Phone: Comment on above: re check 2 weeks; TIARRA BEST NOT FASTINGPERFORMED BY: [facility]CoJFK [facility] CenterEubfjk5957 [facility] [id number] Information: [id number] Urea nitrogen/Creatinine mass ratio 21 mg/mg Normal 11-26 [facility] Work Phone: Comment on above: re check 2 weeks; TIARRA BEST NOT FASTINGPERFORMED BY: [facility] Obqrnr0080 [facility] [id number] Information: [id number] MYOCARD PERF STRESS/REST MUL TOrdered By: Certified Technician Specialist on 04-24-2012 MYOCARD PERF STRESS/REST MULT See Note Normal [facility] Work Phone: Comment on above: MYOCARDIAL PERFUSION SCAN TECHNIQUEThe patient was injected with 11.0 mCi of Tc99m Cardiolite andsubsequently rest SPECT Cardiolite nuclear imaging was obtained in thehorizontal long, vertical long and short axes views. The patientunderwent pharmacologic (Regadenoson) evaluation with a peak heart rateof 120 beats per minute (77% predicted maximum heart rate) with a peakblood pressure of 158/84 mmHg. The patient was injected with 32.0 mCi ctOq98g Cardiolite and subsequently stress SPECT Cardiolite nuclear imagingwas obtained in the horizontal long, vertical long and short axes views.Gated Cardiolite study at peak stress was obtained. INTERPRETATIONRest SPECT Cardiolite nuclear imaging demonstrates an area of diminishedtracer uptake in portions of the mid to distal anterior and anteroseptalsegments, which appears to improve and/or normalize following stress.Following stress there appears to be relative uniform tracer uptake.There is end systolic thickening and brightening. The gated Cardiolitestudy demonstrates myocardial thickening and inward wall motion. Thereported LVEF is 72%. The aforementioned changes appear compatible withshifting soft tissue/breast attenuation being more prominent at rest asopposed to stress. IMPRESSION1. Rest and stress SPECT Cardiolite nuclear imaging demonstratemyocardial perfusion changes appearing compatible with the effects ofshifting soft tissue/breast attenuation being more prominent at rest asopposed to stress with no myocardial perfusion changes appearingcompatible with stress induced myocardial ischemia or previous myocardialinjury/infarction.2. The gated Cardiolite study reports an LVEF of 72%. Dictated on 04/24/12 1316 by Ray GILL,GeraldTranscribed on 04/24/12 1432 by Benita CHRISTY by Ray GILL,Gerald on 04/24/12 1517 Sign by: Ray GILL,Gerald CBC WITH MANUAL DIFF ([id number]) Ordered By: Certified Technician Specialist on 04-16-2012 Basophils (Bld) [#/Vol] 0.0 {x10E3/uL} Normal 0.0-0.2 [facility] Work Phone: Comment on above: PATIENT NOT FASTINGP ERFORMED BY: Illumitex70 [facility] [id number] Information: [id number] Basophils (Bld) [#/Vol] 0.0 10*3/uL Normal 0.0-0.2 [facility]; [facility] Work Phone: Basophils Auto #/vol (Bld) 0.0 {x10E3/uL} Normal 0.0-0.2 [facility] Work Phone: Basophils/100 WBC (Bld) 1 % Normal 0-3 [facility] Work Phone: Comment on above: PATIENT NOT FASTINGP ERFORMED BY: Funderbeamlin6370 [facility] [id number] Information: [id number] Basophils/100 WBC Auto (Bld) 1 % Normal 0-3 [facility] Work Phone: Eosinophils (Bld) [#/Vol] 0.1 {x10E3/uL} Normal 0.0-0.4 [facility] Work Phone: Comment on above: PATIENT NOT FASTINGP ERFORMED BY: PATRIA [facility] EllsworthRegina AlvarezEaxglx1339 [facility] [id number] Information: [id number] Eosinophils (Bld) [#/Vol] 0.1 10*3/uL Normal 0.0-0.4 [facility]; [facility] Work Phone: Eosinophils Auto #/vol (Bld) 0.1 {x10E3/uL} Normal 0.0-0.4 [facility] Work Phone: Eosinophils/100 WBC (Bld) 2 % Normal 0-7 [facility] Work Phone: Comment on above: PATIENT NOT FASTINGP ERFORMED BY: PATRIA [facility] Aoiqgo5173 [facility] [id number] Information: [id number] Eosinophils/100 WBC Auto (Bld) 2 % Normal 0-7 [facility] Work Phone: Erythrocyte distribution width (RBC) [Ratio] 14.2 % Normal 12.3-15.4 [facility] Work Phone: Comment on above: PATIENT NOT FASTINGP ERFORMED BY: PATRIA [place] [address] [facility] [id number] Information: [id number] Erythrocyte distribution width Auto Ratio (RBC) 14.2 % Normal 12.3-15.4 [facility] Work Phone: Hematocrit (Bld) [Volume fraction] 39.5 % Normal 34.0-46.6 [facility] Work Phone: Comment on above: PATIENT NOT FASTINGP ERFORMED BY: PATRIA [facility] [facility] [id number] Information: [id number] Hematocrit Auto Volume Fraction (Bld) 39.5 % Normal 34.0-46.6 [facility] Internal Medicine Work Phone: Hemoglobin mass conc (Bld) 13.4 g/dL Normal 11.1-15.9 [facility] Work Phone: Comment on above: PATIENT NOT FASTINGP ERFORMED BY: [place] [address] [facility] [id number] Information: [id number] Immature granulocytes #/vol (Bld) 0.0 {x10E3/uL} Normal 0.0-0.1 [facility] Work Phone: Comment on above: PATIENT NOT FASTINGP ERFORMED BY: [address] [id number] Information: [id number] Immature granulocytes (Bld) [#/Vol] 0.0 10*3/uL Normal 0.0-0.1 [facility]; [facility] Work Phone: Immature granulocytes/100 WBC (Bld) 0 % Normal 0-2 [facility] Work Phone: Comment on above: PATIENT NOT FASTINGP ERFORMED BY: [place] [address] [facility] [id number] Information: [id number] Lymphocytes (Bld) [#/Vol] 1.3 {x10E3/uL} Normal 0.7-4.5 [facility] Work Phone: Comment on above: PATIENT NOT FASTINGP ERFORMED BY: [facility]6370 [facility] [id number] Information: [id number] Lymphocytes (Bld) [#/Vol] 1.3 10*3/uL Normal 0.7-4.5 [facility]; [facility] Work Phone: Lymphocytes Auto #/vol (Bld) 1.3 {x10E3/uL} Normal 0.7-4.5 [facility] Work Phone: Lymphocytes/100 WBC (Bld) 23 % Normal 14-46 [facility] Work Phone: Comment on above: PATIENT NOT FASTINGP ERFORMED BY: PATRIA LuisRegina Nipvho0735 [facility] [id number] Information: [id number] Lymphocytes/100 WBC Auto (Bld) 23 % Normal 14-46 [facility] Work Phone: MCH (RBC) [Entitic mass] 31.5 pg Normal 26.6-33.0 [facility] Work Phone: Comment on above: PATIENT NOT FASTINGP ERFORMED BY: PATRIA [place] [address] [facility] [id number] Information: [id number] MCH Auto Entitic mass (RBC) 31.5 pg Normal 26.6-33.0 [facility] Internal Medicine Work Phone: MCHC (RBC) [Mass/Vol] 33.9 g/dL Normal 31.5-35.7 [facility] Internal Medicine Work Phone: Comment on above: PATIENT NOT FASTINGP ERFORMED BY: PATRIA [place] [address] [facility] [id number] Information: [id number] MCHC Auto mass conc (RBC) 33.9 g/dL Normal 31.5-35.7 [facility] Internal Medicine Work Phone: MCV (RBC) [Entitic vol] 93 fL Normal 79-97 [facility] Internal Medicine Work Phone: Comment on above: PATIENT NOT FASTINGP ERFORMED BY: PATRIA [place] [address] [facility] [id number] Information: [id number] MCV Auto Entitic volume (RBC) 93 fL Normal 79-97 [facility] Internal Medicine Work Phone: Monocytes (Bld) [#/Vol] 0.4 {x10E3/uL} Normal 0.1-1.0 [facility] Internal Medicine Work Phone: Comment on above: PATIENT NOT FASTINGP ERFORMED BY: PATRIA [place] [address] [facility] [id number] Information: [id number] Monocytes (Bld) [#/Vol] 0.4 10*3/uL Normal 0.1-1.0 [facility]; [facility] Work Phone: Monocytes Auto #/vol (Bld) 0.4 {x10E3/uL} Normal 0.1-1.0 [facility] Work Phone: Monocytes/100 WBC (Bld) 7 % Normal 12-22 [facility] Work Phone: Comment on above: PATIENT NOT FASTINGP ERFORMED BY: PATRIA Alvarezlin6370 [facility] [id number] Information: [id number] Monocytes/100 WBC Auto (Bld) 7 % Normal 12-22 [facility] Work Phone: Neutrophils (Bld) [#/Vol] 3.7 {x10E3/uL} Normal 1.8-7.8 [facility] Work Phone: Comment on above: PATIENT NOT FASTINGP ERFORMED BY: PATRIA Alvarezlin6370 [facility] [id number] Information: [id number] Neutrophils (Bld) [#/Vol] 3.7 10*3/uL Normal 1.8-7.8 [facility]; [facility] Work Phone: Neutrophils Auto #/vol (Bld) 3.7 {x10E3/uL} Normal 1.8-7.8 [facility] Work Phone: Neutrophils/100 WBC (Bld) 67 % Normal 40-74 [facility] Work Phone: Comment on above: PATIENT NOT FASTINGP ERFORMED BY: PATRIA [facility]6[address] [facility] [id number] Information: [id number] Neutrophils/100 WBC Auto (Bld) 67 % Normal 40-74 [facility] Work Phone: Platelets (Bld) [#/Vol] 229 {x10E3/uL} Normal 140-415 [facility] Work Phone: Comment on above: PATIENT NOT FASTINGP ERFORMED BY: PATRIA LuisRegina Herrera70 [facility] [id number] Information: [id number] Platelets (Bld) [#/Vol] 229 10*3/uL Normal 140-415 [facility]; [facility] Work Phone: Platelets Auto #/vol (Bld) 229 {x10E3/uL} Normal 140-415 [facility] Work Phone: RBC (Bld) [#/Vol] 4.26 {x10E6/uL} Normal 3.77-5.28 [facility] Internal Medicine Work Phone: Comment on above: PATIENT NOT FASTINGP ERFORMED BY: PATRIA LuisRegina AlvarezBjkxks9074 [facility] [id number] Information: [id number] RBC (Bld) [#/Vol] 4.26 10*6/uL Normal 3.77-5.28 [facility] Internal Medicine; [facility] Work Phone: RBC Auto #/vol (Bld) 4.26 {x10E6/uL} Normal 3.77-5.28 [facility] Work Phone: WBC (Bld) [#/Vol] 5.5 {x10E3/uL} Normal 4.0-10.5 [facility] Internal Medicine Work Phone: Comment on above: PATIENT NOT FASTINGP ERFORMED BY: PATRIA [facility]6370 [facility] [id number] Information: [id number] WBC (Bld) [#/Vol] 5.5 10*3/uL Normal 4.0-10.5 Compre [facility] Internal Medicine; [facility] Work Phone: WBC Auto #/vol (Bld) 5.5 {x10E3/uL} Normal 4.0-10.5 [facility] Work Phone: METABOLIC PANEL, COMPREHENSI VE ([id number])Ordered By: Certified Technician Specialist on 04-16-2012 Albumin mass conc 3.8 g/dL Normal 3.6-4.8 [facility] Internal Medicine Work Phone: Comment on above: PATIENT NOT FASTINGP ERFORMED BY: CB [facility] Ujqqla4210 [address]Dublin [place] [id number] Albumin/Globulin mass ratio 1.4 {ratio} Normal 1.1-2.5 [facility] Work Phone: Comment on above: PATIENT NOT FASTINGP ERFORMED BY: CB [facility] Tesopn0504 [address]Dublin [place] [id number] ALP [Catalytic activity/Vol] 98 U/L Normal 25-165 [facility]; [facility] Internal Medicine Work Phone: ALP enzyme act/vol 98 [iU]/L Normal 25-165 [facility] Internal Medicine Work Phone: Comment on above: PATIENT NOT FASTINGP ERFORMED BY: CB [facility] Ardeqe4084 [address]Dublin [place] [id number] ALT [Catalytic activity/Vol] 14 U/L Normal 0-40 [facility]; [facility] Internal Medicine Work Phone: ALT enzyme act/vol 14 [iU]/L Normal 0-40 [facility] Internal Medicine Work Phone: Comment on above: PATIENT NOT FASTINGP ERFORMED BY: CB [facility] Pjlsmo2974 [address]Dublin [place] [id number] AST [Catalytic activity/Vol] 20 U/L Normal 0-40 [facility]; [facility] Internal Medicine Work Phone: AST enzyme act/vol 20 [iU]/L Normal 0-40 [facility] Internal Medicine Work Phone: Comment on above: PATIENT NOT FASTINGP ERFORMED BY: CB [facility] Dofvkk5074 [address] RoadDublin [place] [id number] Bilirubin mass conc 0.3 mg/dL Normal 0.0-1.2 [facility] Internal Medicine Work Phone: Comment on above: PATIENT NOT FASTINGP ERFORMED BY: CB [facility] Gmltcs7384 Mcguire RoadCape Fear Valley Medical Centerin [place] [id number] Calcium mass conc 9.3 mg/dL Normal 8.6-10.2 Compreh ensive Internal Medicine Work Phone: Comment on above: PATIENT NOT FASTINGP ERFORMED BY: CB [facility] Bkchjk7482 Mcguire RoadCape Fear Valley Medical Centerin [place] [id number] Chloride molar conc 102 mmol/L Normal 97-108 Compr ehensive Internal Medicine Work Phone: Comment on above: PATIENT NOT FASTINGP ERFORMED BY: CB [facility] Npowua4949 Mcguire RoadCape Fear Valley Medical Centerin [place] [id number] CO2 molar conc 26 mmol/L Normal 20-32 [facility] Internal Medicine Work Phone: Comment on above: PATIENT NOT FASTINGP ERFORMED BY: CB [facility] Rgbewy[address] [facility] [id number] Creatinine mass conc 0.67 mg/dL Normal 0.57-1.00 Comp rehensive Internal Medicine Work Phone: Comment on above: PATIENT NOT FASTINGP ERFORMED BY: CB [facility] Fkttuj2[address] [facility] [id number] GFR/1.73 sq M predicted among blacks CKD-EPI vol rate/area (S/P/Bld) 106 mL/min/1.73 Normal Comprehensiv e Internal Medicine Work Phone: Comment on above: PATIENT NOT FASTINGP ERFORMED BY: CB [facility] Knbnbf1671 [address] [facility] [id number] GFR/1.73 sq M predicted among non-blacks CKD-EPI vol rate/area (S/P/Bld) 92 mL/min/1.73 Normal [facility] Work Phone: Comment on above: PATIENT NOT FASTINGP ERFORMED BY: CB [facility] Bxbbuw4935 [address] [facility] [id number] Globulin (S) [Mass/Vol] 2.8 g/dL Normal 1.5-4.5 [facility] Work Phone: Comment on above: PATIENT NOT FASTINGP ERFORMED BY: PATRIA [facility] Sajsqd0134 [address] RoadDublin [place] [id number] Globulin Calculated mass conc (S) 2.8 g/dL Normal 1.5-4.5 [facility] Work Phone: Glucose mass conc 102 mg/dL Abnormal 65-99 Compreh ensive Internal Medicine Work Phone: Comment on above: PATIENT NOT FASTINGP ERFORMED BY: CB [facility] Blnkkx3793 [address] RoadCape [facility] Centerin [place] [id number] Potassium molar conc 3.3 mmol/L Abnormal 3.5-5.2 Comp rehensive Internal Medicine Work Phone: Comment on above: Client Requested [place] g PATIENT NOT FASTINGP ERFORMED BY: PATRIA [facility] Evcteq[address] [facility] [place] [id number] Protein mass conc 6.6 g/dL Normal 6.0-8.5 Compreh ensive Internal Medicine Work Phone: Comment on above: PATIENT NOT FASTINGP ERFORMED BY: CB [facility] Pmgxqq9[address] [facility] [place] [id number] Sodium molar conc 141 mmol/L Normal 134-144 Compreh ensive Internal Medicine Work Phone: Comment on above: PATIENT NOT FASTINGP ERFORMED BY: CB [facility] Mdrlhk4255 [address] [facility] [id number] Urea nitrogen mass conc 17 mg/dL Normal 8-27 [facility] Work Phone: Comment on above: PATIENT NOT FASTINGP ERFORMED BY: CB [facility] Qnhgyo[address] [facility] [place] [id number] Urea nitrogen/Creatinine mass ratio 25 mg/mg Normal 11-26 [facility] Work Phone: Comment on above: PATIENT NOT FASTINGP ERFORMED BY: CB [facility] Symsch2220 [address] RoadDublin [place] [id number] TSH ([id number])Ordered By: Nasra Chapman on 04-16-2012 Thyrotropin Qn 1.040 {uIU/mL} Normal 0.450-4.50 0 [facility] Work Phone: Comment on above: PATIENT NOT FASTINGP ERFORMED BY: PATRIA Silverio6370 [address] [facility] [id number] Metabolic Panel, Basic ([phone])Ordered By: Certified Technician Specialist on 04-11-2012 Calcium mass conc 9.3 mg/dL Normal 8.6-10.2 Compreh ensive Internal Medicine Work Phone: Comment on above: PATIENT NOT FASTINGP ERFORMED BY: PATRIA [facility] Ndafrz9428 [address] [facility] [id number] Information: [id number] Chloride molar conc 104 mmol/L Normal 97-108 Compr ehensive Internal Medicine Work Phone: Comment on above: PATIENT NOT FASTINGP ERFORMED BY: PATRIA Alvarezlin6370 [facility] [id number] Information: [id number] CO2 molar conc 26 mmol/L Normal 20-32 Comprehens kit Internal Medicine Work Phone: Comment on above: PATIENT NOT FASTINGP ERFORMED BY: PATRIA LabCodesiree AlvarezFssprp5254 [address] [facility] [id number] Information: [id number] Creatinine mass conc 0.77 mg/dL Normal 0.57-1.00 Comp rehensive Internal Medicine Work Phone: Comment on above: PATIENT NOT FASTINGP ERFORMED BY: PATRIA [facility] Sbdmyr0973 [address] [facility] [id number] Information: [id number] GFR/1.73 sq M predicted among blacks CKD-EPI vol rate/area (S/P/Bld) 93 mL/min/1.73 Normal Comprehensiv e Internal Medicine Work Phone: Comment on above: PATIENT NOT FASTINGP ERFORMED BY: PATRIA [facility] Zjlquu8342 [address] [facility] [id number] Information: [id number] GFR/1.73 sq M predicted among non-blacks CKD-EPI vol rate/area (S/P/Bld) 81 mL/min/1.73 Normal [facility] Work Phone: Comment on above: PATIENT NOT FASTINGP ERFORMED BY: PATRIA Alvarezlin6370 [facility] [id number] Information: [id number] Glucose mass conc 88 mg/dL Normal 65-99 Compreh ensive Internal Medicine Work Phone: Comment on above: PATIENT NOT FASTINGP ERFORMED BY: PATRIA [place] [address] [facility] [id number] Information: [id number] Potassium molar conc 3.9 mmol/L Normal 3.5-5.2 Comp rehensive Internal Medicine Work Phone: Comment on above: PATIENT NOT FASTINGP ERFORMED BY: [address] [id number] Information: [id number] Sodium molar conc 141 mmol/L Normal 134-144 Compreh ensive Internal Medicine Work Phone: Comment on above: PATIENT NOT FASTINGP ERFORMED BY: PATRIA SmithMark [place] [address] [facility] [id number] Information: [id number] Urea nitrogen mass conc 14 mg/dL Normal 8-27 [facility] Work Phone: Comment on above: PATIENT NOT FASTINGP ERFORMED BY: [address] [id number] Information: [id number] Urea nitrogen/Creatinine mass ratio 18 mg/mg Normal 11-26 [facility] Work Phone: Comment on above: PATIENT NOT FASTINGP ERFORMED BY: PATRIA [facility] [facility] [id number] Information: [id number] CBC WITH MANUAL DIFF ([id number]) Ordered By: Certified Technician Specialist on 03-15-2012 Basophils (Bld) [#/Vol] 0.0 {x10E3/uL} Normal 0.0-0.2 [facility] Work Phone: Comment on above: PATIENT NOT FASTINGP ERFORMED BY: PATRIA [place] [address] [facility] [id number] Information: [id number] Basophils (Bld) [#/Vol] 0.0 10*3/uL Normal 0.0-0.2 [facility]; [facility] Work Phone: Basophils Auto #/vol (Bld) 0.0 {x10E3/uL} Normal 0.0-0.2 [facility] Work Phone: Basophils/100 WBC (Bld) 0 % Normal 0-3 [facility] Work Phone: Comment on above: PATIENT NOT FASTINGP ERFORMED BY: PATRIA [place] [address] [facility] [id number] Information: [id number] Basophils/100 WBC Auto (Bld) 0 % Normal 0-3 [facility] Work Phone: Eosinophils (Bld) [#/Vol] 0.2 {x10E3/uL} Normal 0.0-0.4 [facility] Work Phone: Comment on above: PATIENT NOT FASTINGP ERFORMED BY: PATRIA [place] [address] [facility] [id number] Information: [id number] Eosinophils (Bld) [#/Vol] 0.2 10*3/uL Normal 0.0-0.4 [facility]; [facility] Work Phone: Eosinophils Auto #/vol (Bld) 0.2 {x10E3/uL} Normal 0.0-0.4 [facility] Work Phone: Eosinophils/100 WBC (Bld) 3 % Normal 0-7 [facility] Work Phone: Comment on above: PATIENT NOT FASTINGP ERFORMED BY: [place] [address] [facility] [id number] Information: [id number],[id number] Eosinophils/100 WBC Auto (Bld) 3 % Normal 0-7 [facility] Work Phone: Erythrocyte distribution width (RBC) [Ratio] 14.2 % Normal 12.3-15.4 [facility] Work Phone: Comment on above: PATIENT NOT FASTINGP ERFORMED BY: PATRIA [facility]iteJFK [facility] CenterAlzmge4823 [facility] [id number] Information: [id number] Erythrocyte distribution width Auto Ratio (RBC) 14.2 % Normal 12.3-15.4 [facility] Work Phone: Hematocrit (Bld) [Volume fraction] 38.8 % Normal 34.0-46.6 [facility] Work Phone: Comment on above: PATIENT NOT FASTINGP ERFORMED BY: PATRIA Zite Aibarj4207 [facility] [id number] Information: [id number] Hematocrit Auto Volume Fraction (Bld) 38.8 % Normal 34.0-46.6 [facility] Internal Medicine Work Phone: Hemoglobin mass conc (Bld) 13.1 g/dL Normal 11.1-15.9 [facility] Work Phone: Comment on above: PATIENT NOT FASTINGP ERFORMED BY: PATRIA Zite Oumnnz7008 [facility] [id number] Information: [id number] Immature granulocytes #/vol (Bld) 0.0 {x10E3/uL} Normal 0.0-0.1 [facility] Work Phone: Comment on above: PATIENT NOT FASTINGP ERFORMED BY: LabCoMikayla [place] [address] [facility] [id number] Information: [id number],[id number] Immature granulocytes (Bld) [#/Vol] 0.0 10*3/uL Normal 0.0-0.1 [facility]; [facility] Work Phone: Immature granulocytes/100 WBC (Bld) 0 % Normal 0-2 [facility] Work Phone: Comment on above: PATIENT NOT FASTINGP ERFORMED BY: PATRIA LuisRegina Silverio6370 [facility] [id number] Information: [id number] Lymphocytes (Bld) [#/Vol] 1.0 {x10E3/uL} Normal 0.7-4.5 [facility] Work Phone: Comment on above: PATIENT NOT FASTINGP ERFORMED BY: PATRIA Alvarezlin6370 [facility] [id number] Information: 134354,[id number] Lymphocytes (Bld) [#/Vol] 1.0 10*3/uL Normal 0.7-4.5 [facility]; [facility] Work Phone: Lymphocytes Auto #/vol (Bld) 1.0 {x10E3/uL} Normal 0.7-4.5 [facility] Work Phone: Lymphocytes/100 WBC (Bld) 21 % Normal 14-46 [facility] Work Phone: Comment on above: PATIENT NOT FASTINGP ERFORMED BY: PATRIA [facility]sworthRegina AlvarezHouqcp0548 [facility] [id number] Information: [id number] Lymphocytes/100 WBC Auto (Bld) 21 % Normal 14-46 [facility] Work Phone: MCH (RBC) [Entitic mass] 31.3 pg Normal 26.6-33.0 [facility] Work Phone: Comment on above: PATIENT NOT FASTINGP ERFORMED BY: PATRIA [facility]6[address] [facility] [id number] Information: [id number] MCH Auto Entitic mass (RBC) 31.3 pg Normal 26.6-33.0 [facility] Work Phone: MCHC (RBC) [Mass/Vol] 33.8 g/dL Normal 31.5-35.7 [facility] prehensive Internal Medicine Work Phone: Comment on above: PATIENT NOT FASTINGP ERFORMED BY: [facility] [facility] [id number] Information: [id number] MCHC Auto mass conc (RBC) 33.8 g/dL Normal 31.5-35.7 [facility] Work Phone: MCV (RBC) [Entitic vol] 93 fL Normal 79-97 [facility] Work Phone: Comment on above: PATIENT NOT FASTINGP ERFORMED BY: [facility] [facility] [id number] Information: [id number] MCV Auto Entitic volume (RBC) 93 fL Normal 79-97 [facility] Work Phone: Monocytes (Bld) [#/Vol] 0.5 {x10E3/uL} Normal 0.1-1.0 [facility] Work Phone: Comment on above: PATIENT NOT FASTINGP ERFORMED BY: [facility] [facility] [id number] Information: [id number] Monocytes (Bld) [#/Vol] 0.5 10*3/uL Normal 0.1-1.0 [facility]; [facility] Work Phone: Monocytes Auto #/vol (Bld) 0.5 {x10E3/uL} Normal 0.1-1.0 [facility] Work Phone: Monocytes/100 WBC (Bld) 9 % Normal - [facility] Work Phone: Comment on above: PATIENT NOT FASTINGP ERFORMED BY: [facility] [facility] [id number] Information: [id number] Monocytes/100 WBC Auto (Bld) 9 % Normal - [facility] Work Phone: Neutrophils (Bld) [#/Vol] 3.4 {x10E3/uL} Normal 1.8-7.8 [facility] Work Phone: Comment on above: PATIENT NOT FASTINGP ERFORMED BY: PATRIA Dagobertodesiree Mkpzlx3749 [facility] [id number] Information: [id number] Neutrophils (Bld) [#/Vol] 3.4 10*3/uL Normal 1.8-7.8 [facility]; [facility] Work Phone: Neutrophils Auto #/vol (Bld) 3.4 {x10E3/uL} Normal 1.8-7.8 [facility] Work Phone: Neutrophils/100 WBC (Bld) 67 % Normal 40-74 [facility] Work Phone: Comment on above: PATIENT NOT FASTINGP ERFORMED BY: PATRIA Alvarezlin6370 [facility] [id number] Information: [id number] Neutrophils/100 WBC Auto (Bld) 67 % Normal 40-74 [facility] Work Phone: Platelets (Bld) [#/Vol] 323 {x10E3/uL} Normal 140-415 [facility] Internal Medicine Work Phone: Comment on above: PATIENT NOT FASTINGP ERFORMED BY: PATRIA Silverio6[address] [facility] [id number] Information: [id number] Platelets (Bld) [#/Vol] 323 10*3/uL Normal 140-415 [facility]; [facility] Internal Medicine Work Phone: Platelets Auto #/vol (Bld) 323 {x10E3/uL} Normal 140-415 [facility] Internal Medicine Work Phone: RBC (Bld) [#/Vol] 4.18 {x10E6/uL} Normal 3.77-5.28 [facility] Internal Medicine Work Phone: Comment on above: PATIENT NOT FASTINGP ERFORMED BY: PATRIA LuisRegina Dqhfjf3246 [facility] [id number] Information: [id number] RBC (Bld) [#/Vol] 4.18 10*6/uL Normal 3.77-5.28 [facility] Internal Medicine; [facility] Work Phone: RBC Auto #/vol (Bld) 4.18 {x10E6/uL} Normal 3.77-5.28 [facility] Work Phone: WBC (Bld) [#/Vol] 5.1 {x10E3/uL} Normal 4.0-10.5 [facility] Internal Medicine Work Phone: Comment on above: PATIENT NOT FASTINGP ERFORMED BY: PATRIA LabCo Ntinef6439 [facility] [id number] Information: [id number] WBC (Bld) [#/Vol] 5.1 10*3/uL Normal 4.0-10.5 [facility] Internal Medicine; [facility] Work Phone: WBC Auto #/vol (Bld) 5.1 {x10E3/uL} Normal 4.0-10.5 [facility] Internal Medicine Work Phone: METABOLIC PANEL, COMPREHENSI VE (77134)Ordered By: Certified Technician Specialist on 03-15-2012 Albumin mass conc 4.2 g/dL Normal 3.6-4.8 [facility] Internal Medicine Work Phone: Comment on above: PATIENT NOT FASTINGP ERFORMED BY: PATRIA LabCodesiree Pszysk5817 [facility] [id number] Albumin/Globulin mass ratio 1.4 {ratio} Normal 1.1-2.5 [facility] Internal Medicine Work Phone: Comment on above: PATIENT NOT FASTINGP ERFORMED BY: PATRIA [facility] Cxrcrt7571 [facility] [id number] ALP [Catalytic activity/Vol] 130 U/L Normal 25-165 [facility] Internal Medicine; [facility] Work Phone: ALP enzyme act/vol 130 [iU]/L Normal 25-165 [facility] Internal Medicine Work Phone: Comment on above: PATIENT NOT FASTINGP ERFORMED BY: PATRIA [facility] Qstvkn4872 [facility] [id number] ALT [Catalytic activity/Vol] 16 U/L Normal 0-40 [facility]; [facility] Internal Medicine Work Phone: ALT enzyme act/vol 16 [iU]/L Normal 0-40 [facility] Internal Medicine Work Phone: Comment on above: PATIENT NOT FASTINGP ERFORMED BY: CB [facility] Vtqqfm1572 [address]Dublin [place] [id number] AST [Catalytic activity/Vol] 23 U/L Normal 0-40 [facility]; [facility] Internal Medicine Work Phone: AST enzyme act/vol 23 [iU]/L Normal 0-40 [facility] Internal Medicine Work Phone: Comment on above: PATIENT NOT FASTINGP ERFORMED BY: PATRIA [facility] Couobn3610 [address] RoadDublin [place] [id number] Bilirubin mass conc 0.5 mg/dL Normal 0.0-1.2 Compr ensive Internal Medicine Work Phone: Comment on above: PATIENT NOT FASTINGP ERFORMED BY: PATRIA [facility] Ytyqdb1814 [address] RoadDublin [place] [id number] Calcium mass conc 9.5 mg/dL Normal 8.6-10.2 Compreh [facility] Internal [facility] Work Phone: Comment on above: PATIENT NOT FASTINGP ERFORMED BY: PATRIA [facility] Uctpqo8484 [address] RoadDublin [place] [id number] Chloride molar conc 102 mmol/L Normal 97-108 Compr ensive Internal Medicine Work Phone: Comment on above: PATIENT NOT FASTINGP ERFORMED BY: CB [facility] Vmfqfa1322 [address] RoadDublin [place] [id number] CO2 molar conc 24 mmol/L Normal 20-32 Comprehens [facility] Internal Medicine Work Phone: Comment on above: PATIENT NOT FASTINGP ERFORMED BY: CB [facility] Lrptsm6880 [address] RoadDublin [place] [id number] Creatinine mass conc 0.84 mg/dL Normal 0.57-1.00 Comp [facility] Internal [facility] Work Phone: Comment on above: PATIENT NOT FASTINGP ERFORMED BY: CB [facility] Pelbxc3513 [address]Dublin [place] [id number] GFR/1.73 sq M predicted among blacks CKD-EPI vol rate/area (S/P/Bld) 84 mL/min/1.73 Normal Comprehensiv e Internal Medicine Work Phone: Comment on above: PATIENT NOT FASTINGP ERFORMED BY: CB [facility] Kgrprs8991 [address] RoadDuin [place] [id number] GFR/1.73 sq M predicted among non-blacks CKD-EPI vol rate/area (S/P/Bld) 73 mL/min/1.73 Normal [facility] Work Phone: Comment on above: PATIENT NOT FASTINGP ERFORMED BY: CB [facility] Gwxojv8287 [address] RoadDuin [place] [id number] Globulin (S) [Mass/Vol] 2.9 g/dL Normal 1.5-4.5 [facility] Work Phone: Comment on above: PATIENT NOT FASTINGP ERFORMED BY: CB [facility] Xqzubg0556 [address] RoadCape Fear [facility] Centerin [place] [id number] Globulin Calculated mass conc (S) 2.9 g/dL Normal 1.5-4.5 [facility] Work Phone: Glucose mass conc 110 mg/dL Abnormal 65-99 Compreh ensive Internal Medicine Work Phone: Comment on above: PATIENT NOT FASTINGP ERFORMED BY: CB [facility] Zkvbqm[address] [facility] [place] [id number] Potassium molar conc 3.5 mmol/L Normal 3.5-5.2 Comp rehensive Internal Medicine Work Phone: Comment on above: PATIENT NOT FASTINGP ERFORMED BY: CB [facility] Pktsax2180 [address] RoadDuin [place] [id number] Protein mass conc 7.1 g/dL Normal 6.0-8.5 Compreh ensive Internal Medicine Work Phone: Comment on above: PATIENT NOT FASTINGP ERFORMED BY: CB [facility] Nwbyck0056 [address] RoadDublin [place] [id number] Sodium molar conc 143 mmol/L Normal 134-144 Compreh ensive Internal Medicine Work Phone: Comment on above: PATIENT NOT FASTINGP ERFORMED BY: [facility]6[address] [facility] [id number] Urea nitrogen mass conc 14 mg/dL Normal 8-27 [facility] Work Phone: Comment on above: PATIENT NOT FASTINGP ERFORMED BY: [place] [address] [facility] [id number] Urea nitrogen/Creatinine mass ratio 17 mg/mg Normal 11-26 [facility] Work Phone: Comment on above: PATIENT NOT FASTINGP ERFORMED BY: [facility] [facility] [id number] TSH ([id number])Ordered By: Coterae m Staffing Assistant on 03-15-2012 Thyrotropin Qn 0.597 {uIU/mL} Normal 0.450-4.50 0 [facility] Work Phone: Comment on above: PATIENT NOT FASTINGP ERFORMED BY: [place] [address] [facility] [id number] CBC WITH MANUAL DIFF ([id number]) Ordered By: Certified Technician Specialist on 12-13-2011 Basophils (Bld) [#/Vol] 0.0 {x10E3/uL} Normal 0.0-0.2 [facility] Work Phone: Comment on above: PATIENT WAS FASTINGP ERFORMED BY: [facility] [facility] [id number] Information: [id number] Basophils (Bld) [#/Vol] 0.0 10*3/uL Normal 0.0-0.2 [facility]; [facility] Work Phone: Basophils Auto #/vol (Bld) 0.0 {x10E3/uL} Normal 0.0-0.2 [facility] Work Phone: Basophils/100 WBC (Bld) 0 % Normal 0-3 [facility] Work Phone: Comment on above: PATIENT WAS FASTINGP ERFORMED BY: [facility] [facility] [id number] Information: [id number] Basophils/100 WBC Auto (Bld) 0 % Normal 0-3 [facility] Work Phone: Eosinophils (Bld) [#/Vol] 0.1 {x10E3/uL} Normal 0.0-0.4 [facility] Work Phone: Comment on above: PATIENT WAS FASTINGP ERFORMED BY: [place] [address] [facility] [id number] Information: [id number] Eosinophils (Bld) [#/Vol] 0.1 10*3/uL Normal 0.0-0.4 [facility]; [facility] Work Phone: Eosinophils Auto #/vol (Bld) 0.1 {x10E3/uL} Normal 0.0-0.4 [facility] Work Phone: Eosinophils/100 WBC (Bld) 2 % Normal 0-7 [facility] Work Phone: Comment on above: PATIENT WAS FASTINGP ERFORMED BY: [place] [address] [facility] [id number] Information: [id number] Eosinophils/100 WBC Auto (Bld) 2 % Normal 0-7 [facility] Work Phone: Erythrocyte distribution width (RBC) [Ratio] 13.7 % Normal 11.7-15.0 [facility] Work Phone: Comment on above: PATIENT WAS FASTINGP ERFORMED BY: [place] [address] [facility] [id number] Information: [id number] Erythrocyte distribution width Auto Ratio (RBC) 13.7 % Normal 11.7-15.0 [facility] Work Phone: Hematocrit (Bld) [Volume fraction] 40.1 % Normal 34.0-44.0 [facility] Work Phone: Comment on above: PATIENT WAS FASTINGP ERFORMED BY: PATRIA [facility]6[address] [facility] [id number] Information: [id number] Hematocrit Auto Volume Fraction (Bld) 40.1 % Normal 34.0-44.0 [facility] Internal Medicine Work Phone: Hemoglobin mass conc (Bld) 13.6 g/dL Normal 11.5-15.0 [facility] Work Phone: Comment on above: PATIENT WAS FASTINGP ERFORMED BY: PATRIA [place] [address] [facility] [id number] Information: [id number] Immature granulocytes #/vol (Bld) 0.0 {x10E3/uL} Normal 0.0-0.1 [facility] Work Phone: Comment on above: PATIENT WAS FASTINGP ERFORMED BY: PATRIA [place] [address] [facility] [id number] Information: [id number] Immature granulocytes (Bld) [#/Vol] 0.0 10*3/uL Normal 0.0-0.1 [facility]; [facility] Work Phone: Immature granulocytes/100 WBC (Bld) 0 % Normal 0-2 [facility] Work Phone: Comment on above: PATIENT WAS FASTINGP ERFORMED BY: PATRIA [place] [address] [facility] [id number] Information: [id number] Lymphocytes (Bld) [#/Vol] 1.3 {x10E3/uL} Normal 0.7-4.5 [facility] Work Phone: Comment on above: PATIENT WAS FASTINGP ERFORMED BY: [place] [address] [facility] [id number] Information: [id number] Lymphocytes (Bld) [#/Vol] 1.3 10*3/uL Normal 0.7-4.5 [facility]; [facility] Work Phone: Lymphocytes Auto #/vol (Bld) 1.3 {x10E3/uL} Normal 0.7-4.5 [facility] Work Phone: Lymphocytes/100 WBC (Bld) 30 % Normal 14-46 [facility] Work Phone: Comment on above: PATIENT WAS FASTINGP ERFORMED BY: PATRIA [address] [id number] Information: [id number] Lymphocytes/100 WBC Auto (Bld) 30 % Normal 14-46 [facility] Work Phone: MCH (RBC) [Entitic mass] 31.1 pg Normal 27.0-34.0 [facility] Work Phone: Comment on above: PATIENT WAS FASTINGP ERFORMED BY: PATRIA [facility] EllsworthMSA Management[address] [id number] Information: [id number] MCH Auto Entitic mass (RBC) 31.1 pg Normal 27.0-34.0 [facility] Internal Medicine Work Phone: MCHC (RBC) [Mass/Vol] 33.9 g/dL Normal 32.0-36.0 [facility] Internal Medicine Work Phone: Comment on above: PATIENT WAS FASTINGP ERFORMED BY: PATRIA [facility] [facility] [id number] Information: [id number] MCHC Auto mass conc (RBC) 33.9 g/dL Normal 32.0-36.0 [facility] Internal Medicine Work Phone: MCV (RBC) [Entitic vol] 92 fL Normal 80-98 [facility] Internal Medicine Work Phone: Comment on above: PATIENT WAS FASTINGP ERFORMED BY: PATRIA [place] [id number] [facility] [id number] Information: [id number] MCV Auto Entitic volume (RBC) 92 fL Normal 80-98 [facility] Work Phone: Monocytes (Bld) [#/Vol] 0.4 {x10E3/uL} Normal 0.1-1.0 [facility] Work Phone: Comment on above: PATIENT WAS FASTINGP ERFORMED BY: [place] [id number] [facility] [id number] Information: [id number] Monocytes (Bld) [#/Vol] 0.4 10*3/uL Normal 0.1-1.0 [facility]; [facility] Work Phone: Monocytes Auto #/vol (Bld) 0.4 {x10E3/uL} Normal 0.1-1.0 [facility] Work Phone: Monocytes/100 WBC (Bld) 8 % Normal 4-13 [facility] Work Phone: Comment on above: PATIENT WAS FASTINGP ERFORMED BY: [place] [id number] [facility] [id number] Information: [id number] Monocytes/100 WBC Auto (Bld) 8 % Normal 4-13 [facility] Work Phone: Neutrophils (Bld) [#/Vol] 2.5 {x10E3/uL} Normal 1.8-7.8 [facility] Work Phone: Comment on above: PATIENT WAS FASTINGP ERFORMED BY: [facility]6[address] [facility] [id number] Information: [id number] Neutrophils (Bld) [#/Vol] 2.5 10*3/uL Normal 1.8-7.8 [facility]; [facility] Work Phone: Neutrophils Auto #/vol (Bld) 2.5 {x10E3/uL} Normal 1.8-7.8 [facility] Work Phone: Neutrophils/100 WBC (Bld) 60 % Normal 40-74 [facility] Work Phone: Comment on above: PATIENT WAS FASTINGP ERFORMED BY: PATRIA [facility]University [facility] [id number] Information: [id number] Neutrophils/100 WBC Auto (Bld) 60 % Normal 40-74 [facility] Work Phone: Platelets (Bld) [#/Vol] 202 {x10E3/uL} Normal 140-415 [facility] Work Phone: Comment on above: PATIENT WAS FASTINGP ERFORMED BY: PATRIA [place] [id number] [facility] [id number] Information: [id number] Platelets (Bld) [#/Vol] 202 10*3/uL Normal 140-415 [facility] Internal [facility]; [facility] Work Phone: Platelets Auto #/vol (Bld) 202 {x10E3/uL} Normal 140-415 [facility] Work Phone: RBC (Bld) [#/Vol] 4.37 {x10E6/uL} Normal 3.80-5.10 [facility] Internal Medicine Work Phone: Comment on above: PATIENT WAS FASTINGP ERFORMED BY: PATRIA [address] [id number] Information: [id number] RBC (Bld) [#/Vol] 4.37 10*6/uL Normal 3.80-5.10 [facility]; [facility] Work Phone: RBC Auto #/vol (Bld) 4.37 {x10E6/uL} Normal 3.80-5.10 [facility] Internal Medicine Work Phone: WBC (Bld) [#/Vol] 4.2 {x10E3/uL} Normal 4.0-10.5 [facility] Internal Medicine Work Phone: Comment on above: PATIENT WAS FASTINGP ERFORMED BY: PATRIA [facility]6[address] [facility] [id number] Information: [id number] WBC (Bld) [#/Vol] 4.2 10*3/uL Normal 4.0-10.5 [facility] Internal [facility]; [facility] Work Phone: WBC Auto #/vol (Bld) 4.2 {x10E3/uL} Normal 4.0-10.5 [facility] Work Phone: LIPID PANEL ([id number])Ordered B y: Certified Technician Specialist on 12-13-2011 Cholesterol in HDL mass conc 65 mg/dL Normal [facility] Work Phone: Comment on above: According to ATP-III Guidelines, HDL-C >59 mg/dL is considered anegative risk factor for CHD. PATIENT WAS FASTINGP ERFORMED BY: PATRIA LabCodesiree Jihogq[address] iPaymentAtrium Health Union West [id number] Cholesterol in LDL mass conc 100 mg/dL Abnormal 0-99 [facility] Work Phone: Comment on above: PATIENT WAS FASTINGP ERFORMED BY: PATRIA [facility] Mwjxil[address] [facility] [id number] Cholesterol in LDL/Cholesterol in HDL mass ratio 1.5 {ratio_units} Normal 0.0-3.2 [facility] Work Phone: Comment on above: PATIENT WAS FASTINGP ERFORMED BY: PATRIA [facility] Viuafu[address] [facility] [id number] Cholesterol in VLDL mass conc 36 mg/dL Normal 5-40 [facility] Work Phone: Comment on above: PATIENT WAS FASTINGP ERFORMED BY: PATRIA [facility] Wpsgqj[address] [facility] [place] [id number] Cholesterol mass conc 201 mg/dL Abnormal 100-199 [facility] prehensive Internal Medicine Work Phone: Comment on above: PATIENT WAS FASTINGP ERFORMED BY: PATRIA [facility] Hkytrz[address] [facility]in [place] [id number] Triglyceride mass conc 180 mg/dL Abnormal 0-149 [facility] Work Phone: Comment on above: PATIENT WAS FASTINGP ERFORMED BY: PATRIA [facility] Gieubf[address] [facility] [id number] METABOLIC PANEL, COMPREHENSI VE ([id number])Ordered By: Certified Technician Specialist on 12-13-2011 Albumin mass conc 4.1 g/dL Normal 3.6-4.8 [facility] Internal Medicine Work Phone: Comment on above: PATIENT WAS FASTINGP ERFORMED BY: [facility] Oipwpo0051 [address] Roadblin [place] [id number] Albumin/Globulin mass ratio 1.5 {ratio} Normal 1.1-2.5 [facility] Internal Medicine Work Phone: Comment on above: PATIENT WAS FASTINGP ERFORMED BY: [facility] Yuyolk3103 [address] RoadCape Fear Valley Medical Centerin [place] [id number] ALP [Catalytic activity/Vol] 83 U/L Normal 25-165 [facility]; [facility] Internal Medicine Work Phone: ALP enzyme act/vol 83 [iU]/L Normal 25-165 [facility] Internal Medicine Work Phone: Comment on above: PATIENT WAS FASTINGP ERFORMED BY: [facility] Hhrbqj9317 [address] RoadCape Fear Valley Medical Centerin [place] [id number] ALT [Catalytic activity/Vol] 14 U/L Normal 0-40 [facility]; [facility] Internal Medicine Work Phone: ALT enzyme act/vol 14 [iU]/L Normal 0-40 [facility] Internal Medicine Work Phone: Comment on above: PATIENT WAS FASTINGP ERFORMED BY: [facility] Fexpot1731 [address]guire RoadCape Fear Valley Medical Centerin [place] [id number] AST [Catalytic activity/Vol] 22 U/L Normal 0-40 [facility]; [facility] Internal Medicine Work Phone: AST enzyme act/vol 22 [iU]/L Normal 0-40 [facility] Internal Medicine Work Phone: Comment on above: PATIENT WAS FASTINGP ERFORMED BY: [facility] Hvqzar5078 [address] Roadblin [place] [id number] Bilirubin mass conc 0.5 mg/dL Normal 0.0-1.2 [facility] Internal Medicine Work Phone: Comment on above: PATIENT WAS FASTINGP ERFORMED BY: CB [facility] Oyelzc2453 [address] RoadDublin [place] [id number] Calcium mass conc 9.7 mg/dL Normal 8.6-10.2 Compreh ensive [facility] Medicine Work Phone: Comment on above: PATIENT WAS FASTINGP ERFORMED BY: CB [facility] Wjydwa0604 [address] RoadDublin [place] [id number] Chloride molar conc 104 mmol/L Normal 97-108 Compr ehensive Internal Medicine Work Phone: Comment on above: PATIENT WAS FASTINGP ERFORMED BY: CB [facility] Wmgrwr1526 [address] RoadDublin [place] [id number] CO2 molar conc 25 mmol/L Normal 20-32 Comprehens kit Internal Medicine Work Phone: Comment on above: PATIENT WAS FASTINGP ERFORMED BY: CB [facility] Skupfj5915 [address] RoadDuin [place] [id number] Creatinine mass conc 0.80 mg/dL Normal 0.57-1.00 Comp rehensive Internal Medicine Work Phone: Comment on above: PATIENT WAS FASTINGP ERFORMED BY: CB [facility] Pvvgkz3976 [address] [facility] [id number] GFR/1.73 sq M predicted among blacks MDRD vol rate/area (S/P/Bld) 89 mL/min/{1.73_m2} Normal Comprehe nsive Internal Medicine Work Phone: Comment on above: Note: A persistent e GFR <60 mL/min/1.73 m2 (3 months or more) mayindicate chronic kidney disease. An eGFR >59 mL/min/1.73 m2 with anelevated urine protein also may indicate chronic kidney disease.Calculated using CKD-EPI formula. PATIENT WAS FASTINGP ERFORMED BY: CB [facility] Qqhhda6966 Mcguire RoadAtrium Health Union West [id number] GFR/1.73 sq M predicted among non-blacks CKD-EPI vol rate/area (S/P/Bld) 77 mL/min/1.73 Normal [facility] Work Phone: Comment on above: PATIENT WAS FASTINGP ERFORMED BY: PATRIA LabRegina Wllnwd3670 [address] Roadblin [place] [id number] Globulin (S) [Mass/Vol] 2.8 g/dL Normal 1.5-4.5 [facility] Work Phone: Comment on above: PATIENT WAS FASTINGP ERFORMED BY: PATRIA [facility] Yjunvw0640 [address]bl[address] [place] [id number] Globulin Calculated mass conc (S) 2.8 g/dL Normal 1.5-4.5 [facility] Work Phone: Glucose mass conc 86 mg/dL Normal 65-99 Compreh ensive [facility] Medicine Work Phone: Comment on above: PATIENT WAS FASTINGP ERFORMED BY: PATRIA Alvarezlin[address] [facility] [place] [id number] Potassium molar conc 4.0 mmol/L Normal 3.5-5.2 Comp rehensive Internal Medicine Work Phone: Comment on above: PATIENT WAS FASTINGP ERFORMED BY: PATRIA Arenas Duyutm[address] [facility]in [place] [id number] Protein mass conc 6.9 g/dL Normal 6.0-8.5 Compreh ensive [facility] Medicine Work Phone: Comment on above: PATIENT WAS FASTINGP ERFORMED BY: PATRIA Alvarezlin[address] [facility] [id number] Sodium molar conc 142 mmol/L Normal 134-144 Compreh ensive [facility] Medicine Work Phone: Comment on above: PATIENT WAS FASTINGP ERFORMED BY: PATRIA LabChildren[facility] Qvbycr[address] [facility] [place] [id number] Urea nitrogen mass conc 18 mg/dL Normal 8-27 [facility] Work Phone: Comment on above: PATIENT WAS FASTINGP ERFORMED BY: PATRIA [facility] Kznmar8918 [address] Roadblin [place] [id number] Urea nitrogen/Creatinine mass ratio 23 mg/mg Normal 11-26 [facility] Work Phone: Comment on above: PATIENT WAS FASTINGP ERFORMED BY: PATRIA [facility] Drmyvx5489 [address] RoadDublin [place] [id number] Microscopic ExaminationOrder ed By: Certified Technician Specialist on 12-13-2011 Bacteria LM.HPF #/area (Urine sed) None seen Normal [facility] Work Phone: Epithelial cells LM.HPF #/area (Urine sed) 0-10 Normal 0 - 10 [facility] Work Phone: Mucus LM Ql (Urine sed) Present Normal [facility] Work Phone: RBC LM.HPF #/area (Urine sed) 0-3 Normal 0 - 3 [facility] Work Phone: WBC LM.HPF #/area (Urine sed) 0-5 Normal 0 - 5 [facility] Work Phone: TSH ([id number])Ordered By: Syste m Staffing Assistant on 12-13-2011 Thyrotropin Qn 1.170 {uIU/mL} Normal 0.450-4.50 0 [facility] Work Phone: Comment on above: PATIENT WAS FASTINGP ERFORMED BY: PATRIA [facility] Ejlatd9382 [address] RoadDublin [place] [id number] URINALYSIS, W/ MICRO ([id number]) Ordered By: Certified Technician Specialist on 12-13-2011 Appearance Nom (U) Clear Normal Compre hensive Internal Medicine Work Phone: Comment on above: PATIENT WAS FASTINGP ERFORMED BY: PATRIA [facility] Pqibwi1067 [address] RoadDublin [place] [id number] Bilirubin Ql (U) Negative Normal Comprehe nsive Internal Medicine Work Phone: Comment on above: PATIENT WAS FASTINGP ERFORMED BY: PATRIA [facility] Vekxdm4562 [address] RoadDublin [place] [id number] Bilirubin Ql (U) Negative Normal Comprehe nsive Internal Medicine; [facility] Work Phone: Color Nom (U) Yellow Normal Comprehensi ve Internal Medicine Work Phone: Comment on above: PATIENT WAS FASTINGP ERFORMED BY: PATRIA [facility] Pknfdj3710 [address] RoadDublin [place] [id number] Glucose Ql (U) Negative Normal Comprehens kit Internal Medicine Work Phone: Comment on above: PATIENT WAS FASTINGP ERFORMED BY: PATRIA [facility] Enwbay4201 [address] RoadDublin [place] [id number] Glucose Ql (U) Negative Normal Comprehens [facility]; [facility] Work Phone: Hemoglobin Ql (U) Negative Normal Compreh ensive [facility] Medicine Work Phone: Comment on above: PATIENT WAS FASTINGP ERFORMED BY: PATRIA [facility] Dhialx4985 [address] RoadDublin [place] [id number] Hemoglobin Ql (U) Negative Normal Compreh ensive [facility]; [facility] Work Phone: Hemoglobin Test strip Ql (U) Negative Normal [facility] Work Phone: Ketones Ql (U) Negative Normal Comprehens kit [facility] Work Phone: Comment on above: PATIENT WAS FASTINGP ERFORMED BY: PATRIA Alvarezlin6370 [address] RoadDublin [place] [id number] Ketones Ql (U) Negative Normal Comprehens [facility]; [facility] Work Phone: Leukocyte esterase Test strip Ql (U) 1+ Abnormal [facility] Work Phone: Comment on above: PATIENT WAS FASTINGP ERFORMED BY: PATRIA LabRegina AlvarezMhmhma8[address] RoadDublin [place] [id number] Microscopic observation LM Nom (Urine sed) See below: Normal [facility] Work Phone: Comment on above: PATIENT WAS FASTINGP ERFORMED BY: PATRIA [facility] Aqbwtt0248 [address] RoadDublin [place] [id number] Nitrite Ql (U) Negative Normal Comprehens [facility] Work Phone: Comment on above: PATIENT WAS FASTINGP ERFORMED BY: PATRIA [facility] Bapyvk7108 [address] RoadDublin [place] [id number] Nitrite Ql (U) Negative Normal Comprehens [facility]; [facility] Work Phone: Nitrite Test strip Ql (U) Negative Normal [facility] Work Phone: pH (U) 7.0 [pH] Normal 5.0-7.5 [facility] Work Phone: Comment on above: PATIENT WAS FASTINGP ERFORMED BY: PATRIA Pivot MedicalRegina AlvarezCyhebv9806 EverZeroNovant Health / [facility] [id number] pH Test strip (U) 7.0 [pH] Normal 5.0-7.5 Compreh ensive [facility] Medicine Work Phone: Protein Ql (U) Negative Normal Comprehens kit [facility] Work Phone: Comment on above: PATIENT WAS FASTINGP ERFORMED BY: PATRIA Pivot MedicalRegina AlvarezKfrunx6681 EverZeroNovant Health / [facility] [id number] Protein Ql (U) Negative Normal Comprehens [facility]; [facility] Work Phone: Protein Test strip Ql (U) Negative Normal [facility] Work Phone: Specific gravity Relative Density (U) 1.017 1 Normal 1.005-1.03 0 [facility] Work Phone: Comment on above: PATIENT WAS FASTINGP ERFORMED BY: PATRIA Zitedesiree AlvarezMcmquu[address] PsychSignalNovant Health / N[facility] [id number] Urobilinogen (U) [Mass/Vol] 0.2 mg/dL Normal 0.0-1.9 [facility]; [facility] Work Phone: Urobilinogen Test strip mass conc (U) 0.2 mg/dL Normal 0.0-1.9 Comprehensiv e Internal Medicine Work Phone: Comment on above: PATIENT WAS FASTINGP ERFORMED BY: PATRIA InHomeVest6370 EverZeroNovant Health / [facility] [id number] Pathology ReportOrdered By: Certified Technician Specialist on 08-12-2011 Pathology report site of origin Narrative MATER Normal Comprehensiv e Internal Medicine Work Phone: Comment on above: Material submitted: .BACKClinical history: .ATYPICAL MOLE WITH JAMIA CYST Diagnosis:EPIDERMOID CYST..COMMENT:MARGINS FREE OF TUMOR.[facility]08/16/2011 Addendum: .MULTIPLE RECUTS WERE MADE INTO THE BLOCK AND A COMPOUND NEVUSWITH ARCHITECTURAL DISORDER AND MILD TO 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 THE SKINSURFACE CONTAINS A 0.8 X 0.6 X 0.1 CM SLIGHTLY ELEVATED AREA. THEMARGINS ARE INKED BLACK. IT IS SERIALLY SECTIONED. CROSS SECTIONSREVEAL A YELLOW/ROTH AREA MEASURING 0.7 CM IN DIAMETER. ALL SEVENSECTIONS ARE SUBMITTED IN THREE CASSETTES. CASSETTE A1 CONTAINSBOTH TIPS AND CASSETTES A2 AND A3 CONTAIN THE FIVE REMAININGSECTIONS.XEC/JASPathologist provided ICD-9:706.2, 216.5CPT .499790 Thin prep Pap ([id number])Ordered By: Certified Technician Specialist on 07-29-2011 Microscopic observation Other stain Nom (Unsp spec) . Normal Comprehens kit [facility] Medicine Work Phone: Comment on above: Source.............C ervical;EndocervicalLMP / Prev Treat...DQI=[id number]. of containers..01 CYTYC Thin Prep VialPATIENT NOT FASTINGPERFORMED BY: LabCo[address] [id number] Information: [id number] Pathology report final diagnosis Narrative SPRCS Normal [facility] Work Phone: Comment on above: NEGATIVE FOR INTRAEP ITHELIAL LESION AND MALIGNANCY.CELLULAR CHANGES ASSOCIATED WITH ATROPHY ARE PRESENT.THIS SPECIMEN WAS RESCREENED PART OF OUR CUSHION PADDER PROGRAM.Satisfactory for evaluation. Endocervical component may not bedistinguished in cases of atrophy.Allie Villafuerte, Comb Fixer (ASC)Parul Singh, Supervisory Comb Fixer (ASCP) Source.............C ervical;EndocervicalLMP / Prev Treat...RGG=[id number]. of containers..01 CYTYC Thin Prep VialPATIENT NOT FASTINGPERFORMED BY: ShopSuey [facility] Medical CenterIn The Chat CommunicationsBeaver Valley Hospital [id number] Information: [id number] Thin prep Pap ([id number]) PAPSMR Normal [facility] prehensive Internal Medicine Work Phone: Comment on above: The Pap smear is a s creening test designed to aid in the detection ofpremalignant and malignant conditions of the uterine cervix. It is not adiagnostic procedure and should not be used as the sole means of detectingcervical cancer. Both false-positive and false-negative reports do occur. .This liquid based ThinPrep(R) pap test was screened with theuse of an image guided system.The HPV DNA reflex criteria were not met with this specimen resulttherefore, no HPV testing was performed. . Source.............C ervical;EndocervicalLMP / Prev Treat...WHO=[id number]. of containers..01 CYTYC Thin Prep VialPATIENT NOT FASTINGPERFORMED BY: ShopSuey [facility] CenterWebVetBeaver Valley Hospital [id number] Information: [id number] KIDNEYOrdered By: System Jerry ager on 07-04-2011 KIDNEY See Note Normal [facility] Work Phone: Comment on above: PROCEDURE: RENAL ULT RASOUND - COMPLETE REASON FOR EXAM: Female, 65 [...] calculi. There is no righthydronephrosis. DISTAL RIGHT URETER: There is non-visualization of the distal rightureter. [...] cm left parapelvic cyst.Thereare no left renal calculi. There is no left hydronephrosis. DISTAL LEFT URETER: There is non-visualization of the distal leftureter.There is no demonstrated left ureterovesical junction calculus. There isavisualized left ureteral jet. BLADDER: There is a normal wall thickness of the distended urinarybladder. There is no demonstrated mass within the urinary bladder.Thereis no demonstrated bladder calculi. IMPRESSION:Small bilateral renal cysts. Dictated on 07/04/11 0952 by Aristides Rabago MDranscribed on 07/05/11 110 by ITS IMPORTSign by Wayne Rabago MD on 07/05/11 1105 Sign by: Wayne Rabago MD HEPATIC FUNCTION PANEL ([id number])Ordered By: Certified Technician Specialist on 06-20-2011 Albumin mass conc 4.5 g/dL Normal 3.6-4.8 Compreh ensive [facility] Medicine Work Phone: Comment on above: PATIENT WAS FASTINGP ERFORMED BY: LabCoJFK Medical CenterQylpdj6493 [facility] [id number] Information: [id number]; appt 06/30/11 ALP [Catalytic activity/Vol] 86 U/L Normal 25-165 [facility] Internal Medicine; [facility] Work Phone: ALP enzyme act/vol 86 [iU]/L Normal 25-165 [facility] Internal Medicine Work Phone: Comment on above: PATIENT WAS FASTINGP ERFORMED BY: PATRIA [facility] Crmxkz7011 [facility] [id number] Information: [id number]; appt 06/30/11 ALT [Catalytic activity/Vol] 12 U/L Normal 0-40 [facility] Internal Medicine; [facility] Work Phone: ALT enzyme act/vol 12 [iU]/L Normal 0-40 [facility] Internal Medicine Work Phone: Comment on above: PATIENT WAS FASTINGP ERFORMED BY: PATRIA LabChildren[facility] Gngefc2518 [facility] [id number] Information: [id number]; appt 06/30/11 AST [Catalytic activity/Vol] 19 U/L Normal 0-40 [facility] Internal [facility]; [facility] Work Phone: AST enzyme act/vol 19 [iU]/L Normal 0-40 [facility] Internal Medicine Work Phone: Comment on above: PATIENT WAS FASTINGP ERFORMED BY: PATRIA LabMiguel Angel Obfyhn7296 [facility] [id number] Information: [id number]; appt 06/30/11 Bilirubin mass conc 0.6 mg/dL Normal 0.0-1.2 [facility] Internal Medicine Work Phone: Comment on above: PATIENT WAS FASTINGP ERFORMED BY: PATRIA [facility] Oggfir7878 [facility] [id number] Information: [id number]; appt 06/30/11 Bilirubin.direct mass conc 0.17 mg/dL Normal 0.00-0.40 [facility] Internal Medicine Work Phone: Comment on above: PATIENT WAS FASTINGP ERFORMED BY: PATRIA LabUniversity Of [facility] Health6[address] [facility] [id number] Information: [id number]; appt 06/30/11 Protein mass conc 6.8 g/dL Normal 6.0-8.5 Compreh ensive Internal Medicine Work Phone: Comment on above: PATIENT WAS FASTINGP ERFORMED BY: PATRIA Dagboertodesiree AlvarezRjtlas[address] [facility] [id number] Information: [id number]; appt 06/30/11 LIPID PANEL ([id number])Ordered B y: Certified Technician Specialist on 06-20-2011 Cholesterol in HDL mass conc 74 mg/dL Normal [facility] Work Phone: Comment on above: According to ATP-III Guidelines, HDL-C >59 mg/dL is considered anegative risk factor for CHD. PATIENT WAS FASTINGP ERFORMED BY: PATRIA LuisRegina AlvarezKtqxhz1327 McguireSaint John's Health System [id number] Cholesterol in LDL mass conc 97 mg/dL Normal 0-99 [facility] Work Phone: Comment on above: PATIENT WAS FASTINGP ERFORMED BY: PATRIA LabRegina AlvarezXlrwqn[address] [facility] [id number] Cholesterol in LDL/Cholesterol in HDL mass ratio 1.3 {ratio_units} Normal 0.0-3.2 [facility] Work Phone: Comment on above: PATIENT WAS FASTINGP ERFORMED BY: PATRIA LabRegina AlvarezMywyrq5257 [facility] [id number] Cholesterol in VLDL mass conc 21 mg/dL Normal 5-40 [facility] Work Phone: Comment on above: PATIENT WAS FASTINGP ERFORMED BY: PATRIA LabCodesiree Gpdboi[address] [facility]in [place] [id number] Cholesterol mass conc 192 mg/dL Normal 100-199 [facility] prehensive Internal Medicine Work Phone: Comment on above: PATIENT WAS FASTINGP ERFORMED BY: PATRIA LabRegina Jjqxfo[address] [facility] [id number] Triglyceride mass conc 105 mg/dL Normal 0-149 [facility] Work Phone: Comment on above: PATIENT WAS FASTINGP ERFORMED BY: [facility] [facility] [id number] BILAT SCRN DIGITAL & CADOrde red By: Certified Technician Specialist on 06-15-2011 BILAT SCRN DIGITAL & CAD See Note Normal [facility] Work Phone: Comment on above: MAMMOGRAPHY - BILATE RAL SCREENING REASON FOR EXAM: Female, 65 years old. Routine annual screeningexamination. PERTINENT HISTORY: Grandmother with breast cancer. The patient has hadbilateral breast reduction. TECHNIQUE: Digital examination. Mediolateral oblique [...] should not delay biopsy of a clinically suspiciousabnormality. Dictated on 06/15/11 1449 by Reid Rabago MDscribed on 06/15/11 1525 by ITS IMPORTSign by Wayne Rabago MD on 06/15/11 [id number] Sign by: Wayne Rabago MD Amylase, SerumOrdered By: Denis stem Staffing Assistant on 10-25-2010 Amylase enzyme act/vol 63 U/L Normal 31-124 [facility] Work Phone: Celiac Disease Comprehensive Ordered By: Certified Technician Specialist on 10-25-2010 Endomysium IgA Ql (S) Negative Normal Com prehensive [facility] Medicine Work Phone: Gliadin peptide IgA Qn (S) 5 {units} Normal 0-19 [facility] Internal Medicine Work Phone: Comment on above: Negative 0 - 19 Weak Positive 20 - 30 Moderate to Strong Positive >30 Gliadin peptide IgG Qn (S) 4 {units} Normal 0-19 [facility] Internal Medicine Work Phone: Comment on above: Negative 0 - 19 Weak Positive 20 - 30 Moderate to Strong Positive >30 IgA mass conc 301 mg/dL Normal 70-400 Comprehensi Internal Medicine Work Phone: Tissue transglutaminase IgA Qn (S) <2 Normal 0-3 [facility] Internal Medicine Work Phone: Comment on above: Negative 0 - 3 Weak Positive 4 - 10 Positive >10 . Tissue Transglutaminase (tTG) has been identified as the endomysial antigen. Studies have demonstr- ated that endomysial IgA antibodies have over 99% specificity for gluten sensitive enteropathy. Tissue transglutaminase IgG Qn (S) <2 Normal 0-5 [facility] Internal Medicine Work Phone: Comment on above: Negative 0 - 5 Weak Positive 6 - 9 Positive >9 H pylori, IgM, IgG, IgA AbOr dered By: Certified Technician Specialist on 10-25-2010 H. pylori IgG IA Qn (S) {index_val} Normal 0.0-0.8 [facility] Internal Medicine Work Phone: Comment on above: Negative <0.9 Indete rminate 0.9 - 1.0 Positive >1.0 H pylori, IgM, IgG, IgA Ab <0.80 Normal 0.00-0.79 [facility] Internal Medicine Work Phone: Comment on above: Negative <0.80 Equiv ocal 0.80 - 1.19 Positive >1.19 . Current studies suggest that H. pylori IgM testing should be performed concomitantly with H. pylori IgA and/or IgG tests to support a diagnosis of Helicobacter pylori infection. . For research use only, not for use in clinical diagnostic procedures. H pylori, IgM, IgG, IgA Ab 1.79 {index} Abnormal 0.00-0.88 [facility] Internal Medicine Work Phone: Comment on above: Negative <0.89 Equiv ocal 0.89 - 0.99 Positive >0.99 Hepatic Function Panel (7)Or dered By: Certified Technician Specialist on 10-25-2010 Albumin mass conc 4.6 g/dL Normal 3.6-4.8 Compreh ensive Internal Medicine Work Phone: ALP enzyme act/vol 99 [iU]/L Normal 25-165 Compre [facility] Internal Medicine Work Phone: ALT enzyme act/vol 14 [iU]/L Normal 0-40 [facility] Internal Medicine Work Phone: AST enzyme act/vol 20 [iU]/L Normal 0-40 [facility] Internal Medicine Work Phone: Bilirubin mass conc 0.8 mg/dL Normal 0.0-1.2 [facility] Internal Medicine Work Phone: Bilirubin.direct mass conc 0.25 mg/dL Normal 0.00-0.40 [facility] Internal Medicine Work Phone: Protein mass conc 7.4 g/dL Normal 6.0-8.5 [facility]pre[facility] Internal Medicine Work Phone: Lipase, SerumOrdered By: Javi tem Staffing Assistant on 10-25-2010 Lipase enzyme act/vol 37 U/L Normal 0-59 Com prehensive [facility] Work Phone: DEXA BONE DENSITY STUDY (HP) Ordered By: Certified Technician Specialist on 09-09-2010 DEXA BONE DENSITY STUDY (HP) See Note Normal [facility] Internal Medicine Work Phone: Comment on above: CLINICAL:Postmenopau charles EXAMINATION:DUAL ENERGY X-RAY ABSORPTIOMETRY / DEXA. TECHNIQUE:Bone Density Measurements (BMD) of lumbar spine and bilateral hips wereobtained using a [employer] scanner.. COMPARISON:July 24, 2007 FINDINGS: Lumbar Spine (L1-L4): g/cm2 (1.035) / T-score (-1.2) / Z-score (-0.3)Left Femur Total: g/cm2 (0.970) / T-score (-0.3) / Z-score (0.4)Right Femur Total: g/cm2 (0.900) / T-score (-0.9) / Z-score (-0.2) Additional Abnormal T-Scores: None. The BMD on the most recent examination were: Lumbar Spine (L2-L4): 0.972 g/cm2 which represents an improvement of11.4%.Left Femur Neck: 0.997 g/cm2 which represents an improvement of 3.6%. IMPRESSION:The patient is considered osteopenic, as outlined above, according toWorldHealth Organization (WHO) criteria. Fracture risk is moderate. Reference Information:The T-score [...] number of standard deviations above or below age-matchedcontrols. A Z-score of less than -1.5 would be considered abnormal. References:1. NIH Osteoporosis and Related Bone Diseases http://www.osteo.org2. International Society for Clinical Densitometry http://www.iscd.org3. National Osteoporosis Foundation http://www.nof.org Dictated on 09/09/10 1246 by Vipin MelendezTranscribed on 09/12/10 035 by ITS IMPORTSign by Vipin Melendez on 09/12/10 035 Sign by: Vipin Melendez PELVIC (NON )Ordered By: Certified Technician Specialist on 09-08-2010 PELVIC (NON ) See Note Normal Com prehensive [facility] Work Phone: Comment on above: CLINICAL:64-year-old female with abdominal pain. PELVIC ULTRASOUND [...] measuring 1.0 x 1.0 x 1.3 cm. There are no cystic orsolid adnexal masses. Normal left ovary measuring 1.7 x 1.3 x 1.1 cm. There are no cystic orsolid adnexal masses. There is no free fluid within the pelvis. IMPRESSION:1. Atrophic uterus with thin endometrium. 4-mm endometrial cyst.2. Nabothian cysts.3. Atrophic ovaries without cysts or masses.4. No free fluid. Dictated on 09/08/10 141 by Remberto,TheresaTranscribed on 09/10/102035 by ITS IMPORTSign by Madefire,Sonja on 09/10/102036 Sign by: Sonja Sr CLINICAL:64-year-old female with abdominal pain. PELVIC ULTRASOUND [...] measuring 1.0 x 1.0 x 1.3 cm. There are no cystic orsolid adnexal masses. Normal left ovary measuring 1.7 x 1.3 x 1.1 cm. There are no cystic orsolid adnexal masses. There is no free fluid within the pelvis. IMPRESSION:1. Atrophic uterus with thin endometrium. 4-mm endometrial cyst.2. Nabothian cysts.3. Atrophic ovaries without cysts or masses.4. No free fluid. Dictated on 09/08/10 1411 by Castorland,TheresaTranscribed on 09/13/10 1400 by ITS IMPORTSign by Sonja Sr on 09/13/10 1401 Sign by: Sonja Sr ABDOMEN/PELVIS WITH CONTRAST Ordered By: Certified Technician Specialist on 08-31-2010 ABDOMEN/PELVIS WITH CONTRAST See Note Normal [facility] Work Phone: Comment on above: CLINICAL:Female, 64 years old. Left lower quadrant pain x 2 weeks. Priorcholecystectomy. History of controlled hypertension. CT ABDOMEN AND PELVIS WITH CONTRAST TECHNIQUE:Transaxial images were obtained from the dome of the diaphragm to thesymphysis pubis with oral contrast. 100 ml of Isovue 300 contrastwasadministered. COMPARISON: None. FINDINGS:The visualized lung bases are unremarkable. There are multiple hypodensities within the liver. They [...] therightkidney. This is too small to ideally characterized. This may representahyperdense cyst or small solid nodule. Follow-up can be obtained asclinically. There are no right renal calculi. There is no righthydronephrosis. Normal visualized right ureter. Normal size of the left kidney. There is no left renal mass. There arenoleft renal calculi. There is no left hydronephrosis. Normal visualizedleft ureter. Normal visualized stomach. Normal small intestine. Normal colon. Theappendix is not [...] of the spine. IMPRESSION:No acute abnormality is identified. Please see complete discussionabove. Dictated on 08/31/10 1240 by SWATI FLOREZTranscribed on 08/31/10 1240 by INTERFACE,MCKESSONSign by SWATI FLOREZ on 09/01/10 0720 Sign by: SWATI FLOREZ CBCDOrdered By: System Manag er on 08-31-2010 Basophils/100 WBC Auto (Bld) 0.6 % Normal 0-1 [facility] Work Phone: Eosinophils/100 WBC Auto (Bld) 0.7 % Normal 0-5 [facility] Work Phone: Erythrocyte distribution width Auto Ratio (RBC) 13.3 % Normal 11.6-14.6 [facility] Work Phone: Hematocrit Auto Volume Fraction (Bld) 41.9 % Normal 37-47 Comprehens [facility] Internal Medicine Work Phone: Hemoglobin mass conc (Bld) 14.8 g/dL Normal 12.0-16.0 [facility] Work Phone: Lymphocytes/100 WBC Auto (Bld) 21.2 % Normal 19-41 [facility] Work Phone: MCH Auto Entitic mass (RBC) 32.9 pg Abnormal 27.0-32.0 [facility] Work Phone: MCHC Auto mass conc (RBC) 35.4 g/dL Normal 32-36 [facility] Work Phone: MCV Auto Entitic volume (RBC) 92.9 fL Normal 81-99 [facility] Work Phone: Monocytes/100 WBC Auto (Bld) 8.9 % Normal 0-10 [facility] Work Phone: Neutrophils Auto #/vol (Bld) 3.6 3/uL Normal 2.0-7.7 [facility] Work Phone: Neutrophils/100 WBC Auto (Bld) 68.6 % Normal 47-70 [facility] Work Phone: Platelet mean volume Auto Entitic volume (Bld) 8.6 fL Normal 6.5-12.0 [facility] Work Phone: Platelets Auto #/vol (Bld) 258 10*3/uL Normal 150-450 [facility] Work Phone: RBC Auto #/vol (Bld) 4.51 {M/mm3} Normal 4.2-5.4 Co mprehensive [facility] Work Phone: WBC Auto #/vol (Bld) 5.3 10*3/uL Normal 4.4-11.0 Com prehensive [facility] Work Phone: COMP METABOLICOrdered By: Denis stem Staffing Assistant on 08-31-2010 Albumin mass conc 4.1 g/dL Normal 3.4-5.0 Compreh ensive Internal Medicine Work Phone: Albumin/Globulin mass ratio 1.1 {RATIO} Normal 0.9-2.4 [facility] Internal Medicine Work Phone: ALP enzyme act/vol 101 U/L Normal 50-136 [facility] Internal Medicine Work Phone: ALT enzyme act/vol 21 U/L Normal 12-78 [facility] Internal Medicine Work Phone: Anion gap 3 molar conc 12 mmol/L Normal 5-15 [facility] Internal Medicine Work Phone: AST enzyme act/vol 13 U/L Abnormal 15-37 [facility] Internal Medicine Work Phone: Bilirubin mass conc 0.80 mg/dL Normal 0.00-1.00 Compr ensive Internal Medicine Work Phone: Calcium mass conc 10.3 mg/dL Abnormal 8.5-10.1 Compreh ensive Internal Medicine Work Phone: Chloride molar conc 101 mmol/L Normal 98-107 Compr ensive Internal Medicine Work Phone: CO2 molar conc 28.0 mmol/L Normal 21.0-32.0 Comprehen [facility] Internal [facility] Work Phone: Creatinine mass conc 0.9 mg/dL Normal 0.6-1.0 Comp rehensive Internal Medicine Work Phone: GFR/1.73 sq M predicted among blacks MDRD vol rate/area (S/P/Bld) 81 mL/min/{1.73_m2} Normal Comprehe nsive Internal Medicine Work Phone: GFR/1.73 sq M.predicted MDRD vol rate/area 67 mL/min/{1.73_m2} Normal Comprehensiv e Internal Medicine Work Phone: Globulin Calculated mass conc (S) 3.9 g/dL Normal 2.7-4.2 [facility] Work Phone: Glucose mass conc 89 mg/dL Normal 70-110 Compreh ensive Internal Medicine Work Phone: Potassium molar conc 3.9 mmol/L Normal 3.5-5.1 Comp rehensive Internal Medicine Work Phone: Protein mass conc 8.0 g/dL Normal 6.4-8.2 Compreh ensive [facility] Medicine Work Phone: Sodium molar conc 141 mmol/L Normal 136-145 Compreh ensive Internal Medicine Work Phone: Urea nitrogen mass conc 20 mg/dL Abnormal 7-18 [facility] Work Phone: Urea nitrogen/Creatinine mass ratio 22.2 {RATIO} Abnormal 10-20 [facility] Work Phone: ESROrdered By: System Manage r on 08-31-2010 ESR Velocity (Bld) 29 mm/h Normal 0-30 Compre hensive Internal Medicine Work Phone: Urinalysis, Office ([id number])Or dered By: Elizabet Johnston on 08-31-2010 Bilirubin Ql (U) Small Normal Comprehe nsive Internal Medicine Work Phone: Glucose Test strip (U) [Mass/Vol] Negative Normal [facility]; [facility] Work Phone: Glucose Test strip mass conc (U) Negative Normal [facility] Work Phone: Hemoglobin Ql (U) Negative Normal Compreh ensive [facility] Medicine Work Phone: Hemoglobin Ql (U) Negative Normal Compreh ensive [facility]; [facility] Work Phone: Hemoglobin Test strip Ql (U) Negative Normal [facility] Work Phone: Ketones Ql (U) Small Normal Comprehens kit [facility] Medicine Work Phone: Leukocyte esterase Test strip Ql (U) Small Normal [facility] Work Phone: Nitrite Ql (U) Negative Normal Comprehens [facility] Work Phone: Nitrite Ql (U) Negative Normal Comprehens [facility]; [facility] Work Phone: Nitrite Test strip Ql (U) Negative Normal [facility] Work Phone: pH (U) 6.0 [pH] Normal [facility] Work Phone: pH Test strip (U) 6.0 [pH] Normal Compreh ensive Internal Medicine Work Phone: Protein Ql (U) 30 mg/dL Normal Comprehens [facility] Work Phone: Protein Test strip Ql (U) 30 mg/dL Normal [facility] Work Phone: Specific gravity Relative Density (U) 1.020 1 Normal Comprehensi ve Internal Medicine Work Phone: Urobilinogen mass/time (24H U) Normal Normal [facility] Work Phone: CBC with manual diff ([id number]) Ordered By: Certified Technician Specialist on 08-17-2010 Basophils (Bld) [#/Vol] 0.0 {x10E3/uL} Normal 0.0-0.2 [facility] Work Phone: Comment on above: PATIENT WAS FASTINGP ERFORMED BY: LabCoJFK Medical CenterQddyfn3142 [facility] [id number] Information: [id number] Basophils (Bld) [#/Vol] 0.0 10*3/uL Normal 0.0-0.2 [facility]; [facility] Work Phone: Basophils Auto #/vol (Bld) 0.0 {x10E3/uL} Normal 0.0-0.2 [facility] Work Phone: Basophils/100 WBC (Bld) 0 % Normal 0-3 [facility] Work Phone: Comment on above: PATIENT WAS FASTINGP ERFORMED BY: PATRIA [place] [id number] [facility] [id number] Information: [id number] Basophils/100 WBC Auto (Bld) 0 % Normal 0-3 [facility] Work Phone: Eosinophils (Bld) [#/Vol] 0.1 {x10E3/uL} Normal 0.0-0.4 [facility] Work Phone: Comment on above: PATIENT WAS FASTINGP ERFORMED BY: PATRIA [address] [id number] Information: [id number] Eosinophils (Bld) [#/Vol] 0.1 10*3/uL Normal 0.0-0.4 [facility]; [facility] Work Phone: Eosinophils Auto #/vol (Bld) 0.1 {x10E3/uL} Normal 0.0-0.4 [facility] Work Phone: Eosinophils/100 WBC (Bld) 1 % Normal 0-7 [facility] Work Phone: Comment on above: PATIENT WAS FASTINGP ERFORMED BY: [place] [id number] [facility] [id number] Information: [id number] Eosinophils/100 WBC Auto (Bld) 1 % Normal 0-7 [facility] Work Phone: Erythrocyte distribution width (RBC) [Ratio] 13.6 % Normal 11.7-15.0 [facility] Work Phone: Comment on above: PATIENT WAS FASTINGP ERFORMED BY: [place] [id number] [facility] [id number] Information: [id number] Erythrocyte distribution width Auto Ratio (RBC) 13.6 % Normal 11.7-15.0 [facility] Work Phone: Hematocrit (Bld) [Volume fraction] 41.8 % Normal 34.0-44.0 [facility] Work Phone: Comment on above: PATIENT WAS FASTINGP ERFORMED BY: PATRIA [facility] EllsworthRegina AlvarezNifsqr5113 [facility] [id number] Information: [id number] Hematocrit Auto Volume Fraction (Bld) 41.8 % Normal 34.0-44.0 [facility] Internal Medicine Work Phone: Hemoglobin mass conc (Bld) 14.1 g/dL Normal 11.5-15.0 [facility] Work Phone: Comment on above: PATIENT WAS FASTINGP ERFORMED BY: PATRIA [facility] Hqhcxh4509 [facility] [id number] Information: [id number] Immature granulocytes #/vol (Bld) 0.0 {x10E3/uL} Normal 0.0-0.1 [facility] Work Phone: Comment on above: PATIENT WAS FASTINGP ERFORMED BY: PATRIA [facility] Vltyju4923 [facility] [id number] Information: [id number] Immature granulocytes (Bld) [#/Vol] 0.0 10*3/uL Normal 0.0-0.1 [facility]; [facility] Work Phone: Immature granulocytes/100 WBC (Bld) 0 % Normal 0-1 [facility] Work Phone: Comment on above: PATIENT WAS FASTINGP ERFORMED BY: PATRIA LabUniversity [facility] Health6[address] [facility] [id number] Information: [id number] Lymphocytes (Bld) [#/Vol] 1.3 {x10E3/uL} Normal 0.7-4.5 [facility] Work Phone: Comment on above: PATIENT WAS FASTINGP ERFORMED BY: PATRIA LabMark Ville [id number] [facility] [id number] Information: [id number] Lymphocytes (Bld) [#/Vol] 1.3 10*3/uL Normal 0.7-4.5 [facility]; [facility] Work Phone: Lymphocytes Auto #/vol (Bld) 1.3 {x10E3/uL} Normal 0.7-4.5 [facility] Work Phone: Lymphocytes/100 WBC (Bld) 26 % Normal - [facility] Work Phone: Comment on above: PATIENT WAS FASTINGP ERFORMED BY: [place] [id number] [facility] [id number] Information: [id number] Lymphocytes/100 WBC Auto (Bld) 26 % Normal - [facility] Work Phone: MCH (RBC) [Entitic mass] 31.3 pg Normal 27.0-34.0 [facility] Work Phone: Comment on above: PATIENT WAS FASTINGP ERFORMED BY: PATRIA [facility] EllsworthMSA ManagementJFK Medical CenterIjwzxp3998 [facility] [id number] Information: [id number] MCH Auto Entitic mass (RBC) 31.3 pg Normal 27.0-34.0 [facility] Internal Medicine Work Phone: MCHC (RBC) [Mass/Vol] 33.7 g/dL Normal 32.0-36.0 [facility] Work Phone: Comment on above: PATIENT WAS FASTINGP ERFORMED BY: Pivot MedicalMark Ville [id number] [facility] [id number] Information: [id number] MCHC Auto mass conc (RBC) 33.7 g/dL Normal 32.0-36.0 [facility] Internal [facility] Work Phone: MCV (RBC) [Entitic vol] 93 fL Normal 80-98 [facility] Work Phone: Comment on above: PATIENT WAS FASTINGP ERFORMED BY: ZiteMikayla [place] [id number] [facility] [id number] Information: [id number] MCV Auto Entitic volume (RBC) 93 fL Normal 80-98 [facility] Work Phone: Monocytes (Bld) [#/Vol] 0.4 {x10E3/uL} Normal 0.1-1.0 [facility] Work Phone: Comment on above: PATIENT WAS FASTINGP ERFORMED BY: [facility] [facility] [id number] Information: [id number] Monocytes (Bld) [#/Vol] 0.4 10*3/uL Normal 0.1-1.0 [facility]; [facility] Work Phone: Monocytes Auto #/vol (Bld) 0.4 {x10E3/uL} Normal 0.1-1.0 [facility] Work Phone: Monocytes/100 WBC (Bld) 8 % Normal 12-22 [facility] Work Phone: Comment on above: PATIENT WAS FASTINGP ERFORMED BY: [facility] [facility] [id number] Information: [id number] Monocytes/100 WBC Auto (Bld) 8 % Normal - [facility] Work Phone: Neutrophils (Bld) [#/Vol] 3.3 {x10E3/uL} Normal 1.8-7.8 [facility] Work Phone: Comment on above: PATIENT WAS FASTINGP ERFORMED BY: [facility] [facility] [id number] Information: [id number] Neutrophils (Bld) [#/Vol] 3.3 10*3/uL Normal 1.8-7.8 [facility]; [facility] Work Phone: Neutrophils Auto #/vol (Bld) 3.3 {x10E3/uL} Normal 1.8-7.8 [facility] Work Phone: Neutrophils/100 WBC (Bld) 65 % Normal 40-74 [facility] Work Phone: Comment on above: PATIENT WAS FASTINGP ERFORMED BY: PATRIA Silverio6[address] [facility] [id number] Information: [id number] Neutrophils/100 WBC Auto (Bld) 65 % Normal 40-74 [facility] Work Phone: Platelets (Bld) [#/Vol] 235 {x10E3/uL} Normal 140-415 [facility] Work Phone: Comment on above: PATIENT WAS FASTINGP ERFORMED BY: PATRIA Alvarezlin6370 [facility] [id number] Information: [id number] Platelets (Bld) [#/Vol] 235 10*3/uL Normal 140-415 [facility]; [facility] Work Phone: Platelets Auto #/vol (Bld) 235 {x10E3/uL} Normal 140-415 [facility] Work Phone: RBC (Bld) [#/Vol] 4.51 {x10E6/uL} Normal 3.80-5.10 [facility] Internal Medicine Work Phone: Comment on above: PATIENT WAS FASTINGP ERFORMED BY: PATRIA Alvarezlin6370 [facility] [id number] Information: [id number] RBC (Bld) [#/Vol] 4.51 10*6/uL Normal 3.80-5.10 [facility] Internal Medicine; [facility] Work Phone: RBC Auto #/vol (Bld) 4.51 {x10E6/uL} Normal 3.80-5.10 [facility] Work Phone: WBC (Bld) [#/Vol] 5.1 {x10E3/uL} Normal 4.0-10.5 [facility] Internal Medicine Work Phone: Comment on above: PATIENT WAS FASTINGP ERFORMED BY: [facility] Pbihqs9941 [facility] [id number] Information: [id number] WBC (Bld) [#/Vol] 5.1 10*3/uL Normal 4.0-10.5 [facility] Internal Medicine; [facility] Work Phone: WBC Auto #/vol (Bld) 5.1 {x10E3/uL} Normal 4.0-10.5 [facility] Work Phone: Lipid Panel ([id number])Ordered B y: Certified Technician Specialist on 08-17-2010 Cholesterol in HDL mass conc 60 mg/dL Normal [facility] Work Phone: Comment on above: According to ATP-III Guidelines, HDL-C >59 mg/dL is considered anegative risk factor for CHD. PATIENT WAS FASTINGP ERFORMED BY: PATRIA LabMiguel Angel Ppvzzr8924 [facility] [id number] Cholesterol in LDL mass conc 139 mg/dL Abnormal 0-99 [facility] Work Phone: Comment on above: PATIENT WAS FASTINGP ERFORMED BY: PATRIA LabCo Urjqhr3164 [facility] [id number] Cholesterol in LDL/Cholesterol in HDL mass ratio 2.3 {ratio_units} Normal 0.0-3.2 [facility] Work Phone: Comment on above: PATIENT WAS FASTINGP ERFORMED BY: PATRIA LabCo Wtcfju8928 [facility] [id number] Cholesterol in VLDL mass conc 39 mg/dL Normal 5-40 [facility] Work Phone: Comment on above: PATIENT WAS FASTINGP ERFORMED BY: PATRIA [facility] Ujeisj7649 [facility] [id number] Cholesterol mass conc 238 mg/dL Abnormal 100-199 [facility] prehensive Internal Medicine Work Phone: Comment on above: PATIENT WAS FASTINGP ERFORMED BY: PATRIA LabCo Qhusll9827 [facility] [id number] Triglyceride mass conc 197 mg/dL Abnormal 0-149 [facility] Work Phone: Comment on above: PATIENT WAS FASTINGP ERFORMED BY: PATRIA [facility] Rhosbz8874 [address] [place] [id number] Metabolic Panel, Comprehensi ve ([id number])Ordered By: Certified Technician Specialist on 08-17-2010 Albumin mass conc 4.3 g/dL Normal 3.6-4.8 [facility] Internal [facility] Work Phone: Comment on above: PATIENT WAS FASTINGP ERFORMED BY: PATRIA [facility] Zynixl9334 [address] [place] [id number] Albumin/Globulin mass ratio 1.6 {ratio} Normal 1.1-2.5 [facility] Work Phone: Comment on above: PATIENT WAS FASTINGP ERFORMED BY: PATRIA LabCodesiree AlvarezZjywdg5094 [address]bl[address] [place] [id number] ALP [Catalytic activity/Vol] 92 U/L Normal 25-165 [facility]; [facility] Internal Medicine Work Phone: ALP enzyme act/vol 92 [iU]/L Normal 25-165 [facility] Internal Medicine Work Phone: Comment on above: PATIENT WAS FASTINGP ERFORMED BY: PATRIA LabCodesiree AlvarezLjoqir[address] [facility] [place] [id number] ALT [Catalytic activity/Vol] 12 U/L Normal 0-40 [facility]; [facility] Internal Medicine Work Phone: ALT enzyme act/vol 12 [iU]/L Normal 0-40 [facility] Internal Medicine Work Phone: Comment on above: PATIENT WAS FASTINGP ERFORMED BY: PATRIA [facility] Jqtnrp9135 Mcguire RoadCape Fear Valley Medical Centerin [place] [id number] AST [Catalytic activity/Vol] 20 U/L Normal 0-40 [facility]; [facility] Internal Medicine Work Phone: AST enzyme act/vol 20 [iU]/L Normal 0-40 [facility] Internal Medicine Work Phone: Comment on above: PATIENT WAS FASTINGP ERFORMED BY: PATRIA [facility] Kinuun0013 Mcguire RoadCape Fear Valley Medical Centerin [place] [id number] Bilirubin mass conc 0.6 mg/dL Normal 0.0-1.2 Compr ehensive Internal Medicine Work Phone: Comment on above: PATIENT WAS FASTINGP ERFORMED BY: PATRIA [facility] Prqhid[address] [facility] [id number] Calcium mass conc 9.3 mg/dL Normal 8.6-10.2 Compreh ensive Internal Medicine Work Phone: Comment on above: PATIENT WAS FASTINGP ERFORMED BY: CB [facility] Lqqkrs7291 [facility] [id number] Chloride molar conc 103 mmol/L Normal 97-108 Compr ehensive Internal Medicine Work Phone: Comment on above: PATIENT WAS FASTINGP ERFORMED BY: PATRIA LabCodesiree Hhjnfn8355 [facility] [id number] CO2 molar conc 26 mmol/L Normal 20-32 Comprehens kit Internal Medicine Work Phone: Comment on above: PATIENT WAS FASTINGP ERFORMED BY: CB [facility] Klemij6294 [facility] [id number] Creatinine mass conc 0.82 mg/dL Normal 0.57-1.00 Comp rehensive Internal Medicine Work Phone: Comment on above: PATIENT WAS FASTINGP ERFORMED BY: [facility] Tkyjxt7600 [facility] [id number] GFR/1.73 sq M predicted among blacks MDRD vol rate/area (S/P/Bld) mL/min/{1.73_m2} Normal Comprehensi ve Internal Medicine Work Phone: Comment on above: Note: Persistent red uction for 3 months or more in an eGFR<60 mL/min/1.73 m2 defines CKD. Patients with eGFR values>/=60 mL/min/1.73 m2 may also have CKD if evidence of persistentproteinuria is present. Additional information may be found [email or web address]. PATIENT WAS FASTINGP ERFORMED BY: CB [facility] Idcgot13[address] [facility] [id number] GFR/1.73 sq M.predicted MDRD (S/P/Bld) [Vol rate/Area] mL/min/{1.73_m2} Normal [facility] Work Phone: Comment on above: PATIENT WAS FASTINGP ERFORMED BY: PATRIA [facility] [facility] [id number] GFR/1.73 sq M.predicted MDRD vol rate/area mL/min/{1.73_m2} Normal [facility] Work Phone: Comment on above: PATIENT WAS FASTINGP ERFORMED BY: PATRIA [facility] [facility] [id number] Globulin (S) [Mass/Vol] 2.7 g/dL Normal 1.5-4.5 [facility] Work Phone: Comment on above: PATIENT WAS FASTINGP ERFORMED BY: PATRIA [place] [address] [facility] [id number] Globulin Calculated mass conc (S) 2.7 g/dL Normal 1.5-4.5 [facility] Work Phone: Glucose mass conc 93 mg/dL Normal 65-99 Compreh ensive Internal Medicine Work Phone: Comment on above: PATIENT WAS FASTINGP ERFORMED BY: PATRIA [facility] [facility] [id number] Potassium molar conc 4.2 mmol/L Normal 3.5-5.2 Comp rehensive Internal Medicine Work Phone: Comment on above: PATIENT WAS FASTINGP ERFORMED BY: [facility] [facility] [id number] Protein mass conc 7.0 g/dL Normal 6.0-8.5 Compreh ensive Internal Medicine Work Phone: Comment on above: PATIENT WAS FASTINGP ERFORMED BY: [facility] [facility] [id number] Sodium molar conc 142 mmol/L Normal 135-145 Compreh ensive Internal Medicine Work Phone: Comment on above: PATIENT WAS FASTINGP ERFORMED BY: [place] [address] [facility] [id number] Urea nitrogen mass conc 17 mg/dL Normal 5-26 [facility] Work Phone: Comment on above: PATIENT WAS FASTINGP ERFORMED BY: [facility] [facility] [id number] Urea nitrogen/Creatinine mass ratio 21 mg/mg Normal 8-27 [facility] Work Phone: Comment on above: PATIENT WAS FASTINGP ERFORMED BY: [facility]6[address] [facility] [id number] Microscopic ExaminationOrder ed By: Certified Technician Specialist on 08-17-2010 Bacteria LM.HPF #/area (Urine sed) None seen Normal [facility] Work Phone: Epithelial cells LM.HPF #/area (Urine sed) 0-10 Normal 0 - 10 [facility] Work Phone: Mucus LM Ql (Urine sed) Present Normal [facility] Work Phone: RBC LM.HPF #/area (Urine sed) 0-3 Normal 0 - 3 [facility] Work Phone: WBC LM.HPF #/area (Urine sed) 0-5 Normal 0 - 5 [facility] Work Phone: TSH ([id number])Ordered By: Syste m Staffing Assistant on 08-17-2010 Thyrotropin Qn 1.020 {uIU/mL} Normal 0.450-4.50 0 [facility] Work Phone: Comment on above: PATIENT WAS FASTINGP ERFORMED BY: [facility] [facility] [id number] URINALYSIS ([id number])Ordered By : Certified Technician Specialist on 08-17-2010 Appearance Nom (U) Clear Normal Compre hensive Internal Medicine Work Phone: Comment on above: PATIENT WAS FASTINGP ERFORMED BY: [facility] [facility] [id number] Bilirubin Ql (U) Negative Normal Comprehe nsive Internal Medicine Work Phone: Comment on above: PATIENT WAS FASTINGP ERFORMED BY: PATRIA Alvarezlin6370 [address] RoadDublin [place] [id number] Bilirubin Ql (U) Negative Normal Comprehe nsive Internal Medicine; [facility] Work Phone: Color Nom (U) Yellow Normal Comprehensi ve Internal Medicine Work Phone: Comment on above: PATIENT WAS FASTINGP ERFORMED BY: PATRIA Silverio6370 [address] RoadDublin [place] [id number] Glucose Ql (U) Negative Normal Comprehens kit Internal Medicine Work Phone: Comment on above: PATIENT WAS FASTINGP ERFORMED BY: PATRIA Alvarezlin6370 [address] RoadDublin [place] [id number] Glucose Ql (U) Negative Normal Comprehens kit Internal Medicine; [facility] Work Phone: Hemoglobin Ql (U) Negative Normal Compreh ensive Internal Medicine Work Phone: Comment on above: PATIENT WAS FASTINGP ERFORMED BY: PATRIA Alvarezlin6[address]Dublin [place] [id number] Hemoglobin Ql (U) Negative Normal Compreh ensive Internal Medicine; [facility] Work Phone: Hemoglobin Test strip Ql (U) Negative Normal [facility] Work Phone: Ketones Ql (U) Negative Normal Comprehens kit Internal Medicine Work Phone: Comment on above: PATIENT WAS FASTINGP ERFORMED BY: PATRIA Silverio[address]Dublin [place] [id number] Ketones Ql (U) Negative Normal Comprehens kit Internal Medicine; [facility] Work Phone: Leukocyte esterase Test strip Ql (U) 1+ Abnormal [facility] Work Phone: Comment on above: PATIENT WAS FASTINGP ERFORMED BY: PATRIA Alvarezlin6[address]Dublin [place] [id number] Microscopic observation LM Nom (Urine sed) See below: Normal [facility] Work Phone: Comment on above: PATIENT WAS FASTINGP ERFORMED BY: PATRIA Arenasrp Fgtykh1302 [address] RoadDublin [place] [id number] Nitrite Ql (U) Negative Normal Comprehens kit Internal Medicine Work Phone: Comment on above: PATIENT WAS FASTINGP ERFORMED BY: PATRIA [facility] Qocmiw2053 [address]Dublin [place] [id number] Nitrite Ql (U) Negative Normal Comprehens kit [facility] Medicine; [facility] Work Phone: Nitrite Test strip Ql (U) Negative Normal [facility] Work Phone: pH (U) 8.0 [pH] Abnormal 5.0-7.5 [facility] Work Phone: Comment on above: PATIENT WAS FASTINGP ERFORMED BY: PATRIA [facility] Wwoqas8594 [address] RoadDublin [place] [id number] pH Test strip (U) 8.0 [pH] Abnormal 5.0-7.5 Compreh ensive Internal Medicine Work Phone: Protein Ql (U) Negative Normal Comprehens kit Internal Medicine Work Phone: Comment on above: PATIENT WAS FASTINGP ERFORMED BY: PATRIA [facility] Qeklzp8214 Mcguire RoadCape Fear Valley Medical Centerin [place] [id number] Protein Ql (U) Negative Normal Comprehens kit Internal Medicine; [facility] Work Phone: Protein Test strip Ql (U) Negative Normal [facility] Work Phone: Specific gravity Relative Density (U) 1.019 1 Normal 1.005-1.03 0 [facility] Work Phone: Comment on above: PATIENT WAS FASTINGP ERFORMED BY: PATRIA [facility] Aojawf3567 Mcguire RoadCape Fear Valley Medical Centerin [place] [id number] Urobilinogen (U) [Mass/Vol] 0.2 mg/dL Normal 0.0-1.9 [facility]; [facility] Work Phone: Urobilinogen Test strip mass conc (U) 0.2 mg/dL Normal 0.0-1.9 Comprehensiv e Internal Medicine Work Phone: Comment on above: PATIENT WAS FASTINGP ERFORMED BY: [facility]iteJFK [facility] CenterVtrept6945 [facility] [id number] UNILAT LT DIAG DIGITAL & CAD Ordered By: Certified Technician Specialist on 04-19-2010 UNILAT LT DIAG DIGITAL & CAD See Note Normal [facility] Work Phone: Comment on above: Exam Number: [id number] MAMMOGRAPHY - UNILATERAL DIAGNOSTIC: BREAST INDICATION:Six month follow-up PERTINENT HISTORY:Grandmother with history of breast cancer.Patient has a personal history of breast reduction surgeryTECHNIQUE:Digital examination. Mediolateral oblique (MLO) and craniocaudad(CC) views of the breast were obtained. CAD was performed on thisstudy. COMPARISON:October 29, 2008 and October 14, 2009 FINDINGS:The breast composition is almost entirely fatty replaced. There are no dominant or spiculated masses. The calcificationsidentified in the retroareolar area of the left breast on theexamination of October 14, 2009 are unchanged. These do most likelyrepresent dystrophic calcifications associated with the patient'sbreast surgery. No clusters of suspicious microcalcifications areseen. If there is no suspicious palpable abnormality, it issuggested the patient be scheduled for a bilateral screeningmammogram in 6 months to reestablish her normal screening schedule IMPRESSION:There is no radiographic evidence of malignancy identified. Yearlyfollow-up is recommended. ASSESSMENT CATEGORY:Category 2: Benign finding(s) Approximately 10% of breast cancers are not detected by mammography.A normal mammogram should not delay biopsy of a clinicallysuspicious abnormality.This addendum is being created for the purpose of attaching a ResultCode to this exam.ADDENDUM: [id number] HPBI/MUDDL Reported By: SWATI FLOREZ M.D. CBC WITH MANUAL DIFF ([id number]) Ordered By: Certified Technician Specialist on 03-01-2010 Basophils (Bld) [#/Vol] 0.0 {x10E3/uL} Normal 0.0-0.2 [facility] Work Phone: Comment on above: PATIENT WAS FASTINGP ERFORMED BY: [facility] Mgenzf7583 [facility] [id number] Information: [id number] Basophils (Bld) [#/Vol] 0.0 10*3/uL Normal 0.0-0.2 [facility]; [facility] Work Phone: Basophils Auto #/vol (Bld) 0.0 {x10E3/uL} Normal 0.0-0.2 [facility] Work Phone: Basophils/100 WBC (Bld) 0 % Normal 0-3 [facility] Work Phone: Comment on above: PATIENT WAS FASTINGP ERFORMED BY: Illumitex[address] iPaymentAtrium Health Union West [id number] Information: [id number] Basophils/100 WBC Auto (Bld) 0 % Normal 0-3 [facility] Work Phone: Eosinophils (Bld) [#/Vol] 0.1 {x10E3/uL} Normal 0.0-0.4 [facility] Work Phone: Comment on above: PATIENT WAS FASTINGP ERFORMED BY: Limbo[address] iPaymentAtrium Health Union West [id number] Information: [id number] Eosinophils (Bld) [#/Vol] 0.1 10*3/uL Normal 0.0-0.4 [facility]; [facility] Work Phone: Eosinophils Auto #/vol (Bld) 0.1 {x10E3/uL} Normal 0.0-0.4 [facility] Work Phone: Eosinophils/100 WBC (Bld) 1 % Normal 0-7 [facility] Work Phone: Comment on above: PATIENT WAS FASTINGP ERFORMED BY: ZiteJFK Medical CenterJnvnqp1407 [facility] [id number] Information: [id number] Eosinophils/100 WBC Auto (Bld) 1 % Normal 0-7 [facility] Work Phone: Erythrocyte distribution width (RBC) [Ratio] 13.3 % Normal 11.7-15.0 [facility] Work Phone: Comment on above: PATIENT WAS FASTINGP ERFORMED BY: [facility] [facility] [id number] Information: [id number] Erythrocyte distribution width Auto Ratio (RBC) 13.3 % Normal 11.7-15.0 [facility] Work Phone: Hematocrit (Bld) [Volume fraction] 38.5 % Normal 34.0-44.0 [facility] Work Phone: Comment on above: PATIENT WAS FASTINGP ERFORMED BY: [facility] [facility] [id number] Information: [id number] Hematocrit Auto Volume Fraction (Bld) 38.5 % Normal 34.0-44.0 [facility] Internal Medicine Work Phone: Hemoglobin mass conc (Bld) 13.8 g/dL Normal 11.5-15.0 [facility] Work Phone: Comment on above: PATIENT WAS FASTINGP ERFORMED BY: [place] [address] [facility] [id number] Information: [id number] Immature granulocytes #/vol (Bld) 0.0 {x10E3/uL} Normal 0.0-0.1 [facility] Work Phone: Comment on above: PATIENT WAS FASTINGP ERFORMED BY: [facility] [facility] [id number] Information: [id number] Immature granulocytes (Bld) [#/Vol] 0.0 10*3/uL Normal 0.0-0.1 [facility]; [facility] Work Phone: Immature granulocytes/100 WBC (Bld) 0 % Normal 0-1 [facility] Work Phone: Comment on above: PATIENT WAS FASTINGP ERFORMED BY: [facility] [facility] [id number] Information: [id number] Lymphocytes (Bld) [#/Vol] 1.1 {x10E3/uL} Normal 0.7-4.5 [facility] Work Phone: Comment on above: PATIENT WAS FASTINGP ERFORMED BY: PATRIA Alvarezlin6370 [facility] [id number] Information: [id number] Lymphocytes (Bld) [#/Vol] 1.1 10*3/uL Normal 0.7-4.5 [facility]; [facility] Work Phone: Lymphocytes Auto #/vol (Bld) 1.1 {x10E3/uL} Normal 0.7-4.5 [facility] Work Phone: Lymphocytes/100 WBC (Bld) 24 % Normal [facility] Work Phone: Comment on above: PATIENT WAS FASTINGP ERFORMED BY: PATRIA [facility] Ckyxqb2477 [facility] [id number] Information: [id number] Lymphocytes/100 WBC Auto (Bld) 24 % Normal - [facility] Work Phone: MCH (RBC) [Entitic mass] 32.2 pg Normal 27.0-34.0 [facility] Internal Medicine Work Phone: Comment on above: PATIENT WAS FASTINGP ERFORMED BY: PATRIA Alvarezlin6370 [facility] [id number] Information: [id number] MCH Auto Entitic mass (RBC) 32.2 pg Normal 27.0-34.0 [facility] Internal Medicine Work Phone: MCHC (RBC) [Mass/Vol] 35.8 g/dL Normal 32.0-36.0 [facility] Internal Medicine Work Phone: Comment on above: PATIENT WAS FASTINGP ERFORMED BY: PATRIA [place] [address] [facility] [id number] Information: [id number] MCHC Auto mass conc (RBC) 35.8 g/dL Normal 32.0-36.0 [facility] Internal Medicine Work Phone: MCV (RBC) [Entitic vol] 90 fL Normal 80-98 [facility] Work Phone: Comment on above: PATIENT WAS FASTINGP ERFORMED BY: PATRIA [place] [address] [facility] [id number] Information: [id number] MCV Auto Entitic volume (RBC) 90 fL Normal 80-98 [facility] Work Phone: Monocytes (Bld) [#/Vol] 0.5 {x10E3/uL} Normal 0.1-1.0 [facility] Work Phone: Comment on above: PATIENT WAS FASTINGP ERFORMED BY: PATRIA [place] [address] [facility] [id number] Information: [id number] Monocytes (Bld) [#/Vol] 0.5 10*3/uL Normal 0.1-1.0 [facility]; [facility] Work Phone: Monocytes Auto #/vol (Bld) 0.5 {x10E3/uL} Normal 0.1-1.0 [facility] Work Phone: Monocytes/100 WBC (Bld) 10 % Normal 12-22 [facility] Work Phone: Comment on above: PATIENT WAS FASTINGP ERFORMED BY: [place] [address] [facility] [id number] Information: [id number] Monocytes/100 WBC Auto (Bld) 10 % Normal - [facility] Work Phone: Neutrophils (Bld) [#/Vol] 3.1 {x10E3/uL} Normal 1.8-7.8 [facility] Work Phone: Comment on above: PATIENT WAS FASTINGP ERFORMED BY: [place] [address] [facility] [id number] Information: [id number] Neutrophils (Bld) [#/Vol] 3.1 10*3/uL Normal 1.8-7.8 [facility]; [facility] Work Phone: Neutrophils Auto #/vol (Bld) 3.1 {x10E3/uL} Normal 1.8-7.8 [facility] Work Phone: Neutrophils/100 WBC (Bld) 65 % Normal 40-74 [facility] Work Phone: Comment on above: PATIENT WAS FASTINGP ERFORMED BY: PATRIA ZiteMescalero Service UnitLxfbwp7381 [facility] [id number] Information: [id number] Neutrophils/100 WBC Auto (Bld) 65 % Normal 40-74 [facility] Work Phone: Platelets (Bld) [#/Vol] 204 {x10E3/uL} Normal 140-415 [facility] Work Phone: Comment on above: PATIENT WAS FASTINGP ERFORMED BY: PATRIA Zite Ulwiqa6896 [facility] [id number] Information: [id number] Platelets (Bld) [#/Vol] 204 10*3/uL Normal 140-415 [facility]; [facility] Work Phone: Platelets Auto #/vol (Bld) 204 {x10E3/uL} Normal 140-415 [facility] Work Phone: RBC (Bld) [#/Vol] 4.29 {x10E6/uL} Normal 3.80-5.10 [facility] Internal Medicine Work Phone: Comment on above: PATIENT WAS FASTINGP ERFORMED BY: ZiteJFK Medical CenterYrqoiw9930 [facility] [id number] Information: [id number] RBC (Bld) [#/Vol] 4.29 10*6/uL Normal 3.80-5.10 [facility] Internal Medicine; [facility] Work Phone: RBC Auto #/vol (Bld) 4.29 {x10E6/uL} Normal 3.80-5.10 [facility] Work Phone: WBC (Bld) [#/Vol] 4.7 {x10E3/uL} Normal 4.0-10.5 [facility] prehensive Internal Medicine Work Phone: Comment on above: PATIENT WAS FASTINGP ERFORMED BY: PATRIA Ziterp Qagojd3347 [facility] [id number] Information: [id number] WBC (Bld) [#/Vol] 4.7 10*3/uL Normal 4.0-10.5 [facility] Internal Medicine; [facility] Work Phone: WBC Auto #/vol (Bld) 4.7 {x10E3/uL} Normal 4.0-10.5 [facility] Work Phone: LIPID PANEL ([id number])Ordered B y: Certified Technician Specialist on 03-01-2010 Cholesterol in HDL mass conc 63 mg/dL Normal [facility] Work Phone: Comment on above: According to ATP-III Guidelines, HDL-C >59 mg/dL is considered anegative risk factor for CHD. PATIENT WAS FASTINGP ERFORMED BY: PATRIA InHomeVest[address] iPaymentAtrium Health Union West [id number] Cholesterol in LDL mass conc 82 mg/dL Normal 0-99 [facility] Work Phone: Comment on above: PATIENT WAS FASTINGP ERFORMED BY: PATRIA LabMSA Managementrp Oowptb1949 [facility] [id number] Cholesterol in LDL/Cholesterol in HDL mass ratio 1.3 {ratio_units} Normal 0.0-3.2 [facility] Work Phone: Comment on above: PATIENT WAS FASTINGP ERFORMED BY: PATRIA [facility] Dgdjhg9833 [address] iPaymentAtrium Health Union West [id number] Cholesterol in VLDL mass conc 39 mg/dL Normal 5-40 [facility] Work Phone: Comment on above: PATIENT WAS FASTINGP ERFORMED BY: PATRIA LabMSA Managementrp Vyogsk5512 [facility] [id number] Cholesterol mass conc 184 mg/dL Normal 100-199 [facility] prehensive Internal Medicine Work Phone: Comment on above: PATIENT WAS FASTINGP ERFORMED BY: PATRIA LabCodesiree Uynnzo[address] [facility] [id number] Triglyceride mass conc 193 mg/dL Abnormal 0-149 [facility] Work Phone: Comment on above: PATIENT WAS FASTINGP ERFORMED BY: PATRIA [facility]Co Pwqtam6748 [facility] [id number] METABOLIC PANEL, COMPREHENSI VE ([id number])Ordered By: Certified Technician Specialist on 03-01-2010 Albumin mass conc 4.1 g/dL Normal 3.6-4.8 Compreh ensive Internal Medicine Work Phone: Comment on above: PATIENT WAS FASTINGP ERFORMED BY: PATRIA LabMiguel Angel Epemri3809 [facility] [id number] Albumin/Globulin mass ratio 1.6 {ratio} Normal 1.1-2.5 [facility] Work Phone: Comment on above: PATIENT WAS FASTINGP ERFORMED BY: [facility] Kenmgv7698 [facility] [id number] ALP [Catalytic activity/Vol] 88 U/L Normal 25-165 [facility]; [facility] Internal Medicine Work Phone: ALP enzyme act/vol 88 [iU]/L Normal 25-165 [facility] Internal Medicine Work Phone: Comment on above: PATIENT WAS FASTINGP ERFORMED BY: [facility] Pqqdwy0815 [facility] [id number] ALT [Catalytic activity/Vol] 13 U/L Normal 0-40 [facility]; [facility] Work Phone: ALT enzyme act/vol 13 [iU]/L Normal 0-40 [facility] Internal Medicine Work Phone: Comment on above: PATIENT WAS FASTINGP ERFORMED BY: PATRIA [facility] Ckjogg5242 [facility] [id number] AST [Catalytic activity/Vol] 21 U/L Normal 0-40 [facility]; [facility] Internal Medicine Work Phone: AST enzyme act/vol 21 [iU]/L Normal 0-40 Compre [facility] Internal Medicine Work Phone: Comment on above: PATIENT WAS FASTINGP ERFORMED BY: PATRIA [facility] Trcean[address] [facility] [id number] Bilirubin mass conc 0.6 mg/dL Normal 0.0-1.2 [facility] Internal Medicine Work Phone: Comment on above: PATIENT WAS FASTINGP ERFORMED BY: CB [facility] Weatrv8[address] [facility] [id number] Calcium mass conc 9.3 mg/dL Normal 8.6-10.2 Compreh ensive Internal Medicine Work Phone: Comment on above: PATIENT WAS FASTINGP ERFORMED BY: PATRIA [facility] Apzojg0708 [facility] [id number] Chloride molar conc 102 mmol/L Normal 97-108 Compr [facility] Internal Medicine Work Phone: Comment on above: PATIENT WAS FASTINGP ERFORMED BY: PATRIA [facility] Irhpir2796 [facility] [id number] CO2 molar conc 26 mmol/L Normal 20-32 Comprehens kit Internal Medicine Work Phone: Comment on above: PATIENT WAS FASTINGP ERFORMED BY: PATRIA [facility] Ltffos3104 [facility] [id number] Creatinine mass conc 0.85 mg/dL Normal 0.57-1.00 Comp [facility] Internal Medicine Work Phone: Comment on above: PATIENT WAS FASTINGP ERFORMED BY: [facility] Svmdhp3797 [facility] [id number] GFR/1.73 sq M predicted among blacks MDRD vol rate/area (S/P/Bld) mL/min/{1.73_m2} Normal Comprehensi ve Internal Medicine Work Phone: Comment on above: Note: Persistent red uction for 3 months or more in an eGFR<60 mL/min/1.73 m2 defines CKD. Patients with eGFR values>/=60 mL/min/1.73 m2 may also have CKD if evidence of persistentproteinuria is present. Additional information may be found [email or web address]. PATIENT WAS FASTINGP ERFORMED BY: PATRIA [facility] [facility] [id number] GFR/1.73 sq M.predicted MDRD (S/P/Bld) [Vol rate/Area] mL/min/{1.73_m2} Normal [facility] Work Phone: Comment on above: PATIENT WAS FASTINGP ERFORMED BY: [facility] [facility] [id number] GFR/1.73 sq M.predicted MDRD vol rate/area mL/min/{1.73_m2} Normal [facility] Work Phone: Comment on above: PATIENT WAS FASTINGP ERFORMED BY: PATRIA [facility] [facility] [id number] Globulin (S) [Mass/Vol] 2.5 g/dL Normal 1.5-4.5 [facility] Work Phone: Comment on above: PATIENT WAS FASTINGP ERFORMED BY: [place] [address] [facility] [id number] Globulin Calculated mass conc (S) 2.5 g/dL Normal 1.5-4.5 [facility] Work Phone: Glucose mass conc 86 mg/dL Normal 65-99 Compreh ensive [facility] Medicine Work Phone: Comment on above: PATIENT WAS FASTINGP ERFORMED BY: [facility] [facility] [id number] Potassium molar conc 3.7 mmol/L Normal 3.5-5.2 Comp rehensive Internal Medicine Work Phone: Comment on above: PATIENT WAS FASTINGP ERFORMED BY: [facility] [facility] [id number] Protein mass conc 6.6 g/dL Normal 6.0-8.5 Compreh ensive [facility] Work Phone: Comment on above: PATIENT WAS FASTINGP ERFORMED BY: [facility] [facility] [id number] Sodium molar conc 141 mmol/L Normal 135-145 Compreh ensive [facility] Work Phone: Comment on above: PATIENT WAS FASTINGP ERFORMED BY: [facility] [facility] [id number] Urea nitrogen mass conc 18 mg/dL Normal 5-26 [facility] Work Phone: Comment on above: PATIENT WAS FASTINGP ERFORMED BY: [facility] [facility] [id number] Urea nitrogen/Creatinine mass ratio 21 mg/mg Normal 8-27 [facility] Work Phone: Comment on above: PATIENT WAS FASTINGP ERFORMED BY: [facility] [facility] [id number] Microscopic ExaminationOrder ed By: Certified Technician Specialist on 03-01-2010 Bacteria LM.HPF #/area (Urine sed) Few Normal [facility] Work Phone: Epithelial cells LM.HPF #/area (Urine sed) 0-10 Normal 0 - 10 [facility] Work Phone: Mucus LM Ql (Urine sed) Present Normal [facility] Work Phone: RBC LM.HPF #/area (Urine sed) 0-3 Normal 0 - 3 [facility] Work Phone: WBC LM.HPF #/area (Urine sed) 6-10 Abnormal 0 - 5 [facility] Work Phone: T3, FREE (TRIDOTHYRONINE) ([phone])Ordered By: Certified Technician Specialist on 03-01-2010 T3 free mass conc 2.7 pg/mL Normal 2.0-4.4 Compreh ensive [facility] Work Phone: Comment on above: PATIENT WAS FASTINGP ERFORMED BY: [facility] [facility] [id number] T4, FREE (THYROXINE) ([id number]) Ordered By: Certified Technician Specialist on 03-01-2010 T4 free mass conc 0.93 ng/dL Normal 0.82-1.77 Compreh ensive [facility] Work Phone: Comment on above: PATIENT WAS FASTINGP ERFORMED BY: PATRIA [facility] Waxwln2381 Mcguire RoadDublin [place] [id number] TSH ([id number])Ordered By: Coterae m Staffing Assistant on 03-01-2010 Thyrotropin Qn 0.687 {uIU/mL} Normal 0.450-4.50 0 [facility] Work Phone: Comment on above: PATIENT WAS FASTINGP ERFORMED BY: PATRIA [facility] Akmqwj3054 Mcguire RoadDublin [place] [id number] URINALYSIS W/O MICRO ([id number]) Ordered By: Certified Technician Specialist on 03-01-2010 Appearance Nom (U) Clear Normal Compre hensive [facility] Work Phone: Comment on above: PATIENT WAS FASTINGP ERFORMED BY: PATRIA LabMiguel Angel Ytnxlj4558 Mcgu[address] RoadDublin [place] [id number] Bilirubin Ql (U) Negative Normal Comprehe nsive Internal Medicine Work Phone: Comment on above: PATIENT WAS FASTINGP ERFORMED BY: PATRIA Lab[facility] Nisrmj6[address] RoadDublin [place] [id number] Bilirubin Ql (U) Negative Normal Comprehe nsive Internal Medicine; [facility] Work Phone: Color Nom (U) Yellow Normal Comprehensi ve Internal Medicine Work Phone: Comment on above: PATIENT WAS FASTINGP ERFORMED BY: PATRIA [facility] Tyedfm7331 [address] RoadDublin [place] [id number] Glucose Ql (U) Negative Normal Comprehens kit [facility] Work Phone: Comment on above: PATIENT WAS FASTINGP ERFORMED BY: PATRIA [facility] Zxporn62[address] RoadDublin [place] [id number] Glucose Ql (U) Negative Normal [facility]; [facility] Work Phone: Hemoglobin Ql (U) Negative Normal Compreh ensive [facility] Work Phone: Comment on above: PATIENT WAS FASTINGP ERFORMED BY: PATRIA Alvarezlin6370 Mcguire RoadAtrium Health [facility] West [id number] Hemoglobin Ql (U) Negative Normal Compreh ensive [facility]; [facility] Work Phone: Hemoglobin Test strip Ql (U) Negative Normal [facility] Work Phone: Ketones Ql (U) Negative Normal Comprehens kit [facility] Work Phone: Comment on above: PATIENT WAS FASTINGP ERFORMED BY: PATRIA Alvarezlin6[address] RoadDuin [place] [id number] Ketones Ql (U) Negative Normal Comprehens [facility]; [facility] Work Phone: Leukocyte esterase Test strip Ql (U) Trace Abnormal [facility] Work Phone: Comment on above: PATIENT WAS FASTINGP ERFORMED BY: PATRIA Alvarezlin[address] [facility] [id number] Microscopic observation LM Nom (Urine sed) See below: Normal [facility] Work Phone: Comment on above: PATIENT WAS FASTINGP ERFORMED BY: PATRIA Alvarezlin[address] [facility] [id number] Nitrite Ql (U) Negative Normal Comprehens [facility] Work Phone: Comment on above: PATIENT WAS FASTINGP ERFORMED BY: PATRIA Silverio[address] [facility] [id number] Nitrite Ql (U) Negative Normal [facility]; [facility] Work Phone: Nitrite Test strip Ql (U) Negative Normal [facility] Work Phone: pH (U) 8.0 [pH] Abnormal 5.0-7.5 [facility] Work Phone: Comment on above: PATIENT WAS FASTINGP ERFORMED BY: PATRIA Alvarezlin[address] [facility] [id number] pH Test strip (U) 8.0 [pH] Abnormal 5.0-7.5 Compreh ensive [facility] Medicine Work Phone: Protein Ql (U) Trace Normal Comprehens kit [facility] Work Phone: Comment on above: PATIENT WAS FASTINGP ERFORMED BY: [facility] Tmkxue9[address] [facility] [id number] Protein Test strip Ql (U) Trace Normal [facility] Work Phone: Specific gravity Relative Density (U) 1.025 1 Normal 1.005-1.03 0 [facility] Work Phone: Comment on above: PATIENT WAS FASTINGP ERFORMED BY: [facility] Dtauxl3474 [facility] [id number] Urobilinogen (U) [Mass/Vol] 0.2 mg/dL Normal 0.0-1.9 [facility]; [facility] Work Phone: Urobilinogen Test strip mass conc (U) 0.2 mg/dL Normal 0.0-1.9 Comprehensiv e Internal Medicine Work Phone: Comment on above: PATIENT WAS FASTINGP ERFORMED BY: [facility] [facility] [id number] BILAT DIAG DIGITAL & CADOrde red By: Certified Technician Specialist on 10-14-2009 BILAT DIAG DIGITAL & CAD See Note Normal [facility] Work Phone: Comment on above: Exam Number: [id number] MAMMOGRAM, BILATERAL DIAGNOSTIC DIGITAL AND CAD HISTORYBilateral 6-month followup. Full field digital images were obtained in mediolateral oblique andcraniocaudal projections. CAD images were reviewed. The current study is compared to the examinations of July, October 29, 2008, November 06, 2008 and May 04, 2009. There is mild alteration in the architecture of the breasts compatiblewith the history of breast reduction surgery. Calcifications seen inthe mid right breast on the examination of May 04, 2009, areunchanged. Small parenchymal densities seen in the upper outerquadrant of the breast on the same study are unchanged. On the left,there are now calcifications in the retroareolar area of the breastwhich were not seen previously. These were most likely torepresenting dystrophic calcifications associated with the surgicalprocedure. There is no new mass or area of architectural distortionseen on either side. IMPRESSION1. The appearance of the right breast is unchanged.2. There are new calcifications [...] mammograms werealso examined with computer-aided detection software (Knowledge Adventure, XDN/[employer].). Reported By: SWATI FLOREZ M.D. Phlexglobal RT DIAG DIGITAL & CAD Ordered By: Certified Technician Specialist on 05-04-2009 Area 1 SecurityAT RT DIAG DIGITAL & CAD See Note Normal [facility] Work Phone: Comment on above: Exam Number: [id number] MAMMOGRAM, UNILATERAL RIGHT DIAGNOSTIC DIGITAL AND CAD HISTORY6-month followup, abnormal mammogram. TECHNIQUE Full field digital images were obtained in mediolateral oblique andcraniocaudal projections. True lateral and magnificication spot viewsin right craniocaudal and right mediolateral oblique projections werealso obtained. CAD images were reviewed. The current study is compared to the examinations of July, October 29, 2008, and November 06, 2008. Prior to theexamination of 2008, the patient underwent a breast reductionsurgery. FINDINGSOn the examination of October 29, 2008, asymmetric densities wereidentified in the outer mid right breast. These densities are stable and most likely represent postoperative scar. On October 29, 2008, there are a very small number of calcificationsidentified in the retroareolar area of the breast. On the examinationof May 04, 2009, there is significant increase in the number ofcalcifications located just above and lateral to the nipple. Thesecalcifications are fairly large and coarse. These findings are mostlikely to represent dystrophic calcifications related to the previoussurgical procedure. Because these calcification are new, a right6-month followup mammogram is recommended. It is suggested that abilateral examination be performed at that time since it would be thenormal time for the screening examination of the left breast. IMPRESSIONThere is significant [...] mammograms werealso examined with computer-aided detection software (ImageGuardianEdge Technologies, XDN/[employer].). Reported By: SWATI FLOREZ M.D. Hepatic Function Panel (7)Or dered By: Certified Technician Specialist on 02-17-2009 Albumin mass conc 4.2 g/dL Normal 3.6-4.8 [facility] Work Phone: ALP enzyme act/vol 95 [iU]/L Normal 25-165 [facility] Work Phone: ALT enzyme act/vol 13 [iU]/L Normal 0-40 [facility] Internal [facility] Work Phone: AST enzyme act/vol 19 [iU]/L Normal 0-40 [facility] Internal [facility] Work Phone: Bilirubin mass conc 0.4 mg/dL Normal 0.1-1.2 [facility] Internal Medicine Work Phone: Bilirubin.direct mass conc 0.12 mg/dL Normal 0.00-0.40 [facility] Internal Medicine Work Phone: Protein mass conc 6.8 g/dL Normal 6.0-8.5 [facility] Work Phone: Lipid Panel With LDL/HDL Rat ioOrdered By: Certified Technician Specialist on 02-17-2009 Cholesterol in HDL mass conc 58 mg/dL Normal [facility] Internal [facility] Work Phone: Comment on above: According to ATP-III Guidelines, HDL-C >59 mg/dL is considered anegative risk factor for CHD. Cholesterol in LDL mass conc 98 mg/dL Normal 0-99 [facility] Work Phone: Cholesterol in LDL/Cholesterol in HDL mass ratio 1.7 {ratio_units} Normal 0.0-3.2 [facility] Work Phone: Cholesterol in VLDL mass conc 39 mg/dL Normal 5-40 [facility] Work Phone: Cholesterol mass conc 195 mg/dL Normal 100-199 Com prehensive Internal Medicine Work Phone: Triglyceride mass conc 196 mg/dL Abnormal 0-149 [facility] Work Phone: UNILAT RT DIAG DIGITAL & CAD Ordered By: Certified Technician Specialist on 11-06-2008 UNILAT RT DIAG DIGITAL & CAD See Note Normal [facility] Work Phone: Comment on above: Exam Number: [id number] MAMMOGRAM, UNILATERAL RIGHT DIAGNOSTIC DIGITAL AND CAD HISTORYDensities. Full field digital images of the right breast were obtained in truelateral, roll craniocaudal and spot mediolateral oblique andcraniocaudal views. The current study is compared to the examinations of October. The areas of asymmetric parenchymal density seen in the outer midright breast on the examination of October 29, 2008, do notdemonstrate the appearance of a focal mass on the additional views. The areas of density most likely represent asymmetric distribution ofnormal structures. There are also a few calcifications in the [...] mammograms werealso examined with computer-aided detection software (Knowledge Adventure, [employer] Engine, [employer].). Reported By: SWATI FLOREZ M.D. Thin prep Pap ([id number])Ordered By: Shelia Oleary on 11-04-2008 Microscopic observation Other stain Nom (Unsp spec) . Normal Comprehens kit [facility] Medicine Work Phone: Comment on above: Source.............C ervical;EndocervicalLMP / Prev Treat...SYB=[id number]. of containers..01 CYTYC Thin Prep VialPATIENT NOT FASTINGClinical Information: ADD [id number] PERFORMED BY: Panève [address] [id number] Pathology report final diagnosis Narrative SPRCS Normal [facility] Work Phone: Comment on above: NEGATIVE FOR INTRAEP ITHELIAL LESION AND MALIGNANCY.CELLULAR CHANGES ASSOCIATED WITH ATROPHY ARE PRESENT.THIS SPECIMEN WAS RESCREENED PART OF OUR CUSHION PADDER PROGRAM.Satisfactory for evaluation. Endocervical and/or squamous metaplasticcells (endocervical component) are present.Aubree Coe, Comb Fixer (ASCP)Patricia Maria, Supervisory Comb Fixer (ASCP) Source.............C ervical;EndocervicalLMP / Prev Treat...XGY=[id number]. of containers..01 CYTYC Thin Prep VialPATIENT NOT FASTINGClinical Information: ADD [id number] PERFORMED BY: Panève [address] [id number] Thin prep Pap ([id number]) PAPSMR Normal [facility] prehensive Internal Medicine Work Phone: Comment on above: The Pap smear is a s creening test designed to aid in the detection ofpremalignant and malignant conditions of the uterine cervix. It is not adiagnostic procedure and should not be used as the sole means of detectingcervical cancer. Both false-positive and false-negative reports do occur. .The HPV DNA reflex criteria were not met with this specimen resulttherefore, no HPV testing was performed. . Source.............C ervical;EndocervicalLMP / Prev Treat...FXS=[id number]. of containers..01 CYTYC Thin Prep VialPATIENT NOT FASTINGClinical Information: ADD [id number] PERFORMED BY: Lab[address] SAMIRA [id number] BILAT SCRN DIGITAL & CADOrde red By: Certified Technician Specialist on 10-29-2008 BILAT SCRN DIGITAL & CAD See Note Normal [facility] Work Phone: Comment on above: Exam Number: [id number] MAMMOGRAM, BILATERAL SCREENING DIGITAL AND CAD HISTORYRoutine screening. Full field digital images were obtained in mediolateral oblique andcraniocaudal projections. CAD images were reviewed. The current study is compared to the examinations of August,,and July,. A small metal marker is in place on a mole, which projects on theleft. There has been a significant change in the appearance of the breastsdue to an interval breast reduction surgery. There is no skinthickening or retraction, architectural distortion, or cluster ofsuspicious microcalcifications. There are areas of asymmetricparenchymal density not seen previously. These are most prominentlyseen in the upper outer quadrant of the right breast. These densitiesare most likely to represent postoperative change. For furtherevaluation, a roll craniocaudal and spot compression views of theasymmetric densities seen just above and lateral to the plane of thenipple of the right breast are recommended. A bilateral 6-monthfollowup is also suggested. IMPRESSION1. There is diffuse change in the appearance of the breasts, compatible with a history of breast reduction surgery. 2. There are 2 apparently focal densities seen in the outer right breast, just at or above the plane of the nipple. These are most likely to represent postoperative change. Additional views are recommended to be sure there is no mass at this location. FINAL ASSESSMENTNeed additional imaging evaluation. BIRADS Category 0. A letter regarding these results has been sent to the patient. This interpretation was rendered by a radiologist certified under theMammography Quality Standards Act of 1992 (MQSA). The mammograms werealso examined with computer-aided detection software (ImageBox Gardencker, Motion Engine, Inc.). Reported By: SWATI FLOREZ M.D. CBC WITH MANUAL DIFF ([id number]) Ordered By: Shelia Oleary on 10-24-2008 Basophils (Bld) [#/Vol] 0.0 {x10E3/uL} Normal 0.0-0.2 [facility] Work Phone: Comment on above: PATIENT WAS FASTINGC linical Information: ADD DRAW FEE [id number] ADD J [id number] PERFORMED BY: [id number] [facility]ZeroNov[facility] [id number] Basophils (Bld) [#/Vol] 0.0 10*3/uL Normal 0.0-0.2 [facility]; [facility] Work Phone: Basophils Auto #/vol (Bld) 0.0 {x10E3/uL} Normal 0.0-0.2 [facility] Work Phone: Basophils/100 WBC (Bld) 1 % Normal 0-3 [facility] Work Phone: Comment on above: PATIENT WAS FASTINGC linical Information: ADD DRAW FEE [id number] ADD J [id number] PERFORMED BY: YuanV6370 [address] PsychSignalNovant Health / [facility] [id number] Basophils/100 WBC Auto (Bld) 1 % Normal 0-3 [facility] Work Phone: Eosinophils (Bld) [#/Vol] 0.1 {x10E3/uL} Normal 0.0-0.4 [facility] Work Phone: Comment on above: PATIENT WAS FASTINGC linical Information: ADD DRAW FEE [id number] ADD J [id number] PERFORMED BY: Illumitex70 McguireHootsuiteAtrium Health Union West [id number] Eosinophils (Bld) [#/Vol] 0.1 10*3/uL Normal 0.0-0.4 [facility]; [facility] Work Phone: Eosinophils Auto #/vol (Bld) 0.1 {x10E3/uL} Normal 0.0-0.4 [facility] Work Phone: Eosinophils/100 WBC (Bld) 2 % Normal 0-7 [facility] Work Phone: Comment on above: PATIENT WAS FASTINGC linical Information: ADD DRAW FEE 153573 ADD J 07738 PERFORMED BY: Zite Ernube1065 [facility] [id number] Eosinophils/100 WBC Auto (Bld) 2 % Normal 0-7 [facility] Work Phone: Erythrocyte distribution width (RBC) [Ratio] 14.0 % Normal 11.7-15.0 [facility] Work Phone: Comment on above: PATIENT WAS FASTINGC linical Information: ADD DRAW FEE ADD J [id number] PERFORMED BY: Zite Nrxoxe5769 [facility] [id number] Erythrocyte distribution width Auto Ratio (RBC) 14.0 % Normal 11.7-15.0 [facility] Work Phone: Hematocrit (Bld) [Volume fraction] 40.4 % Normal 34.0-44.0 [facility] Work Phone: Comment on above: PATIENT WAS FASTINGC linical Information: ADD DRAW FEE [id number] ADD J [id number] PERFORMED BY: Zite Lfnies6030 [facility] [id number] Hematocrit Auto Volume Fraction (Bld) 40.4 % Normal 34.0-44.0 [facility] Internal [facility] Work Phone: Hemoglobin mass conc (Bld) 13.9 g/dL Normal 11.5-15.0 [facility] Work Phone: Comment on above: PATIENT WAS FASTINGC linical Information: ADD DRAW FEE [id number] ADD J 32390 PERFORMED BY: Zite Yfqvcm3183 [facility] [id number] Lymphocytes (Bld) [#/Vol] 1.1 {x10E3/uL} Normal 0.7-4.5 [facility] Work Phone: Comment on above: PATIENT WAS FASTINGC linical Information: ADD DRAW FEE 151060 ADD J 53433 PERFORMED BY: P[facility] MedicalUniversity Of [facility] Health6[address] [facility] [id number] Lymphocytes (Bld) [#/Vol] 1.1 10*3/uL Normal 0.7-4.5 [facility]; [facility] Work Phone: Lymphocytes Auto #/vol (Bld) 1.1 {x10E3/uL} Normal 0.7-4.5 [facility] Work Phone: Lymphocytes/100 WBC (Bld) 24 % Normal 14-46 [facility] Work Phone: Comment on above: PATIENT WAS FASTINGC linical Information: ADD DRAW FEE [id number] ADD J [id number] PERFORMED BY: PATRIA [employer] [place] iPaymentAtrium Health Union West [id number] Lymphocytes/100 WBC Auto (Bld) 24 % Normal 14-46 [facility] Work Phone: MCH (RBC) [Entitic mass] 31.3 pg Normal 27.0-34.0 [facility] Work Phone: Comment on above: PATIENT WAS FASTINGC linical Information: ADD DRAW FEE [id number] ADD J 75808 PERFORMED BY: PATRIA Zite [employer]La[employer] [place] iPaymentAtrium Health Union West [id number] MCH Auto Entitic mass (RBC) 31.3 pg Normal 27.0-34.0 [facility] Internal Medicine Work Phone: MCHC (RBC) [Mass/Vol] 34.5 g/dL Normal 32.0-36.0 [facility] Internal Medicine Work Phone: Comment on above: PATIENT WAS FASTINGC linical Information: ADD DRAW FEE [id number] ADD J 93803 PERFORMED BY: Zite PortfolioLauncher Inc. [facility] [id number] MCHC Auto mass conc (RBC) 34.5 g/dL Normal 32.0-36.0 [facility] Internal Medicine Work Phone: MCV (RBC) [Entitic vol] 91 fL Normal 80-98 [facility] Work Phone: Comment on above: PATIENT WAS FASTINGC linical Information: ADD DRAW FEE [id number] ADD J [id number] PERFORMED BY: Zite [employer]La[employer] [place] iPaymentAtrium Health [facility] West [id number] MCV Auto Entitic volume (RBC) 91 fL Normal 80-98 [facility] Work Phone: Monocytes (Bld) [#/Vol] 0.5 {x10E3/uL} Normal 0.1-1.0 [facility] Work Phone: Comment on above: PATIENT WAS FASTINGC linical Information: ADD DRAW FEE [id number] ADD J 17482 PERFORMED BY: Limbo70 [place] iPaymentAtrium Health Union West [id number] Monocytes (Bld) [#/Vol] 0.5 10*3/uL Normal 0.1-1.0 [facility]; [facility] Work Phone: Monocytes Auto #/vol (Bld) 0.5 {x10E3/uL} Normal 0.1-1.0 [facility] Work Phone: Monocytes/100 WBC (Bld) 10 % Normal 4- [facility] Work Phone: Comment on above: PATIENT WAS FASTINGC linical Information: ADD DRAW FEE [id number] ADD J 41838 PERFORMED BY: Zite Lznwdi2671 [facility] [id number] Monocytes/100 WBC Auto (Bld) 10 % Normal 4-13 [facility] Work Phone: Neutrophils (Bld) [#/Vol] 2.8 {x10E3/uL} Normal 1.8-7.8 [facility] Work Phone: Comment on above: PATIENT WAS FASTINGC linical Information: ADD DRAW FEE [id number] ADD J 05134 PERFORMED BY: Zite Jxgayl0126 [facility] [id number] Neutrophils (Bld) [#/Vol] 2.8 10*3/uL Normal 1.8-7.8 [facility]; [facility] Work Phone: Neutrophils Auto #/vol (Bld) 2.8 {x10E3/uL} Normal 1.8-7.8 [facility] Work Phone: Neutrophils/100 WBC (Bld) 63 % Normal 40-74 [facility] Work Phone: Comment on above: PATIENT WAS FASTINGC linical Information: ADD DRAW FEE [id number] ADD J 52534 PERFORMED BY: PATRIA Zite Gqyfmb4242 [facility] [id number] Neutrophils/100 WBC Auto (Bld) 63 % Normal 40-74 [facility] Work Phone: Platelets (Bld) [#/Vol] 228 {x10E3/uL} Normal 140-415 [facility] Work Phone: Comment on above: PATIENT WAS FASTINGC linical Information: ADD DRAW FEE [id number] ADD J 06103 PERFORMED BY: PATRIA Zite Aqdaos2621 [facility] [id number] Platelets (Bld) [#/Vol] 228 10*3/uL Normal 140-415 [facility]; [facility] [facility] Internal Medicine Work Phone: Platelets Auto #/vol (Bld) 228 {x10E3/uL} Normal 140-415 [facility] Work Phone: RBC (Bld) [#/Vol] 4.45 {x10E6/uL} Normal 3.80-5.10 [facility] Internal Medicine Work Phone: Comment on above: PATIENT WAS FASTINGC linical Information: ADD DRAW FEE [id number] ADD J [id number] PERFORMED BY: PATRIA ZiteJFK Medical CenterFvsfdk9145 [facility] [id number] RBC (Bld) [#/Vol] 4.45 10*6/uL Normal 3.80-5.10 [facility] Internal Medicine; [facility] Internal Medicine Work Phone: RBC Auto #/vol (Bld) 4.45 {x10E6/uL} Normal 3.80-5.10 [facility] Internal Medicine Work Phone: WBC (Bld) [#/Vol] 4.5 {x10E3/uL} Normal 4.0-10.5 [facility] Internal Medicine Work Phone: Comment on above: PATIENT WAS FASTINGC linical Information: ADD DRAW FEE [id number] ADD J [id number] PERFORMED BY: PATRIA Zite Vozvcr4875 [facility] [id number] WBC (Bld) [#/Vol] 4.5 10*3/uL Normal 4.0-10.5 [facility]; [facility] Work Phone: WBC Auto #/vol (Bld) 4.5 {x10E3/uL} Normal 4.0-10.5 [facility] Work Phone: LIPID PANEL ([id number])Ordered B y: Shelia Oleary on 10-24-2008 Cholesterol in HDL mass conc 62 mg/dL Normal [facility] Work Phone: Comment on above: According to ATP-III Guidelines, HDL-C >59 mg/dL is considered anegative risk factor for CHD. PATIENT WAS FASTINGP ERFORMED BY: CB [facility] Dlehnk09[address] [employer] [place] [id number] Cholesterol in LDL mass conc 157 mg/dL Abnormal 0-99 [facility] Work Phone: Comment on above: PATIENT WAS FASTINGP ERFORMED BY: CB [facility] Iluetm3810 [address] [employer] [place] [id number] Cholesterol in LDL/Cholesterol in HDL mass ratio 2.5 {ratio_units} Normal 0.0-3.2 [facility] Work Phone: Comment on above: PATIENT WAS FASTINGP ERFORMED BY: [employer] LabMSA Managementrp Doprpy39[address] [employer] [id number] Cholesterol in LDL/Cholesterol in HDL mass ratio SPRCS Normal [facility] Work Phone: Comment on above: If initial LDL-joseph sterol result is >100 mg/dL, assess forrisk factors. PATIENT WAS FASTINGP ERFORMED BY: CB [facility] Iqsrbs3950 [address] [employer] [place] [id number] Cholesterol in VLDL mass conc 40 mg/dL Normal 5-40 [facility] Work Phone: Comment on above: PATIENT WAS FASTINGP ERFORMED BY: CB [facility] Plnqzr2441 [address] [employer] [place] [id number] Cholesterol mass conc 259 mg/dL Abnormal 100-199 Com prehensive Internal Medicine Work Phone: Comment on above: PATIENT WAS FASTINGP ERFORMED BY: CB [facility] Qadkfg[address] [facility] [place] [id number] Triglyceride mass conc 202 mg/dL Abnormal 0-149 [facility] Work Phone: Comment on above: PATIENT WAS FASTINGP ERFORMED BY: CB [facility] Eyocoh4705 [address] [facility] [id number] METABOLIC PANEL, COMPREHENSI VE ([id number])Ordered By: Shelia Oleary on 10-24-2008 Albumin mass conc 4.3 g/dL Normal 3.6-4.8 [facility] Internal [facility] Work Phone: Comment on above: PATIENT WAS FASTINGP ERFORMED BY: CB [facility] Umabuv8269 [address] [facility] [id number] Albumin/Globulin mass ratio 1.4 {ratio} Normal 1.1-2.5 [facility] Work Phone: Comment on above: PATIENT WAS FASTINGP ERFORMED BY: CB [facility] Xnqgro5776 [facility] [id number] ALP [Catalytic activity/Vol] 96 U/L Normal 25-165 [facility]; [facility] Internal Medicine Work Phone: ALP enzyme act/vol 96 [iU]/L Normal 25-165 [facility] Internal Medicine Work Phone: Comment on above: PATIENT WAS FASTINGP ERFORMED BY: [facility] Qidprp5858 [facility] [id number] ALT [Catalytic activity/Vol] 11 U/L Normal 0-40 [facility]; [facility] Work Phone: ALT enzyme act/vol 11 [iU]/L Normal 0-40 [facility] Internal Medicine Work Phone: Comment on above: PATIENT WAS FASTINGP ERFORMED BY: CB [facility] Rtxfph3031 [address] [facility] [id number] AST [Catalytic activity/Vol] 19 U/L Normal 0-40 [facility]; [facility] Work Phone: AST enzyme act/vol 19 [iU]/L Normal 0-40 Compre [facility] Internal Medicine Work Phone: Comment on above: PATIENT WAS FASTINGP ERFORMED BY: PATRIA Silverio6370 [facility] [id number] Bilirubin mass conc 0.5 mg/dL Normal 0.1-1.2 [facility] Internal Medicine Work Phone: Comment on above: PATIENT WAS FASTINGP ERFORMED BY: PATRIA Silverio6370 [facility] [id number] Calcium mass conc 10.2 mg/dL Normal 8.5-10.6 [facility] Work Phone: Comment on above: PATIENT WAS FASTINGP ERFORMED BY: PATRIA Alvarezlin6370 [facility] [id number] Chloride molar conc 102 mmol/L Normal 97-108 [facility] Internal Medicine Work Phone: Comment on above: PATIENT WAS FASTINGP ERFORMED BY: PATRIA Silverio6370 [facility] [id number] CO2 molar conc 26 mmol/L Normal 20-32 Comprehens [facility] Internal Medicine Work Phone: Comment on above: PATIENT WAS FASTINGP ERFORMED BY: PATRIA Silverio6370 [facility] [id number] Creatinine mass conc 0.90 mg/dL Normal 0.57-1.00 [facility] Internal Medicine Work Phone: Comment on above: PATIENT WAS FASTINGP ERFORMED BY: PATRIA LabCodesiree AlvarezAkdupi3788 [facility] [id number] GFR/1.73 sq M predicted among blacks MDRD vol rate/area (S/P/Bld) mL/min/{1.73_m2} Normal Comprehensi ve Internal Medicine Work Phone: Comment on above: Note: Persistent red uction for 3 months or more in an eGFR<60 mL/min/1.73 m2 defines CKD. Patients with eGFR values>/=60 mL/min/1.73 m2 may also have CKD if evidence of persistentproteinuria is present. Additional information may be found [email or web address]. PATIENT WAS FASTINGP ERFORMED BY: [facility] Pjngak6232 [facility] [id number] GFR/1.73 sq M.predicted MDRD (S/P/Bld) [Vol rate/Area] mL/min/{1.73_m2} Normal [facility] Work Phone: Comment on above: PATIENT WAS FASTINGP ERFORMED BY: [facility] Zoyfle6709 [facility] [id number] GFR/1.73 sq M.predicted MDRD vol rate/area mL/min/{1.73_m2} Normal [facility] Work Phone: Comment on above: PATIENT WAS FASTINGP ERFORMED BY: [facility] Bgcgoz3019 [facility] [id number] Globulin (S) [Mass/Vol] 3.1 g/dL Normal 1.5-4.5 [facility] Work Phone: Comment on above: PATIENT WAS FASTINGP ERFORMED BY: [facility] Xtemjl7197 [facility] [id number] Globulin Calculated mass conc (S) 3.1 g/dL Normal 1.5-4.5 [facility] Work Phone: Glucose mass conc 90 mg/dL Normal 65-99 Compreh ensive Internal Medicine Work Phone: Comment on above: PATIENT WAS FASTINGP ERFORMED BY: [facility] Ynwpyr6309 [facility] [id number] Potassium molar conc 4.0 mmol/L Normal 3.5-5.2 Comp rehensive Internal Medicine Work Phone: Comment on above: PATIENT WAS FASTINGP ERFORMED BY: Lab[facility] Aouxsf6707 [facility] [id number] Protein mass conc 7.4 g/dL Normal 6.0-8.5 Compreh ensive Internal Medicine Work Phone: Comment on above: PATIENT WAS FASTINGP ERFORMED BY: LabCoJFK Medical CenterMlaizr2618 [facility] [id number] Sodium molar conc 141 mmol/L Normal 135-145 Compreh ensive Internal Medicine Work Phone: Comment on above: PATIENT WAS FASTINGP ERFORMED BY: PATRIA Dagoberto Savucy7053 [facility] [id number] Urea nitrogen mass conc 21 mg/dL Normal 5-26 [facility] Work Phone: Comment on above: PATIENT WAS FASTINGP ERFORMED BY: PATRIA LuisUniversity [facility] Health6370 [facility] [id number] Urea nitrogen/Creatinine mass ratio 23 mg/mg Normal 8-27 [facility] Work Phone: Comment on above: PATIENT WAS FASTINGP ERFORMED BY: PATRIA LuisUniversity Of Michigan Health6370 [facility] [id number] MICROALBUMINOrdered By: Shelia Oleary on 10-24-2008 Albumin DL <= 20 mg/L (U) [Mass/Vol] mg/dL Normal 0.0-17.0 [facility]; [facility] Work Phone: Albumin DL <= 20 mg/L mass conc (U) mg/dL Normal 0.0-17.0 [facility] Work Phone: Comment on above: PATIENT WAS FASTINGP ERFORMED BY: PATRIA [facility] [facility] [id number] Albumin/Creatinine DL <= 20 mg/L (U) [Mass ratio] mg/g Normal 0.0-30.0 [facility]; [facility] Work Phone: Albumin/Creatinine DL <= 20 mg/L mass ratio (U) mg/g Normal 0.0-30.0 [facility] Work Phone: Comment on above: PATIENT WAS FASTINGP ERFORMED BY: PATRIA DagobertoJFK Medical CenterPlepak0324 [facility] [id number] Creatinine mass conc (U) 151.7 mg/dL Normal 15.0-278.0 [facility] Work Phone: Comment on above: PATIENT WAS FASTINGP ERFORMED BY: PATRIA [employer] Gbkpix4152 [facility] [id number] TSH ([id number])Ordered By: Shelia Oleary on 10-24-2008 Thyrotropin Qn 1.126 {uIU/mL} Normal 0.450-4.50 0 [facility] Internal Medicine Work Phone: Comment on above: PATIENT WAS FASTINGP ERFORMED BY: [facility] Rdbvaz5206 [facility] [id number] COMP METABOLICOrdered By: Denis stem Staffing Assistant on 07-24-2007 Albumin mass conc 3.8 g/dL Normal 3.4-5.0 [facility] Work Phone: Albumin/Globulin mass ratio 1.1 {RATIO} Normal 0.9-2.4 [facility] Internal Medicine Work Phone: ALP enzyme act/vol 82 U/L Normal 50-136 [facility] Internal Medicine Work Phone: ALT enzyme act/vol 30 [iU]/L Normal 30-65 [facility] Internal Medicine Work Phone: Anion gap 3 molar conc 8 mmol/L Normal 5-15 [facility] Internal Medicine Work Phone: AST enzyme act/vol 16 U/L Normal 15-37 [facility] Internal Medicine Work Phone: Bilirubin mass conc 0.44 mg/dL Normal 0.00-1.00 Compr [facility] Internal Medicine Work Phone: Calcium mass conc 9.5 mg/dL Normal 8.5-10.1 Compre[facility] Internal Medicine Work Phone: Chloride molar conc 102 mmol/L Normal 98-107 [facility] Internal Medicine Work Phone: CO2 molar conc 28.8 mmol/L Normal 21.0-32.0 [facility] Work Phone: Comment on above: Please Note Refer ence Interval Change Creatinine mass conc 0.9 mg/dL Normal 0.6-1.0 Comp [facility] Internal Medicine Work Phone: Globulin Calculated mass conc (S) 3.5 g/dL Normal 2.7-4.2 [facility] Work Phone: Comment on above: Please Note Refer ence Interval Change Glucose mass conc 84 mg/dL Normal 70-110 Compreh ensive Internal Medicine Work Phone: Potassium molar conc 3.5 mmol/L Normal 3.5-5.1 Comp rehensive Internal Medicine Work Phone: Protein mass conc 7.3 g/dL Normal 6.4-8.2 Compreh ensive Internal Medicine Work Phone: Sodium molar conc 139 mmol/L Normal 136-145 Compreh ensive Internal Medicine Work Phone: Urea nitrogen mass conc 21 mg/dL Abnormal 7-18 [facility] Work Phone: Urea nitrogen/Creatinine mass ratio 23.3 {RATIO} Abnormal 10-20 [facility] Work Phone: D BILIOrdered By: System Man ager on 07-24-2007 Bilirubin.direct mass conc 0.08 mg/dL Normal 0.00-0.30 [facility] Work Phone: DEXA BONE DENSITY STUDY (HP) Ordered By: Certified Technician Specialist on 07-24-2007 DEXA BONE DENSITY STUDY (HP) See Note Normal [facility] Work Phone: Comment on above: Exam Number: [id number] BONE DENSITOMETRY HISTORYScreening for osteoporosis. TECHNIQUE Bone densitometry of the lumbar spine and left hip was performed. Thebest criteria for evaluation of osteoporosis is the T-value whichrepresents the comparison of [...] for evaluation ofvertebral deformity only demonstrates no obvious compressionfractures. The T-value of the left femoral neck is -0.2 which is normal. The T-value of the total left hip is -0.3 which is normal. IMPRESSIONThere is osteopenia of the lumbar spine. Bone densitometry of thetotal left hip is within normal limits. Reported By: SWATI FLOREZ M.D. LIPIDOrdered By: System Cecelia angelica on 07-24-2007 Cholesterol in HDL mass conc 63 mg/dL Normal [facility] Work Phone: Comment on above: Reference Range HDL <40 mg/dL Low HDL Cholesterol HDL >or= 60 mg/dL High HDL Cholesterol Cholesterol in LDL mass conc 118 mg/dL Normal 0-130 [facility] Work Phone: Cholesterol in VLDL mass conc 29 mg/dL Normal 5-40 [facility] Work Phone: Cholesterol mass conc 210 mg/dL Abnormal Com prehensive Internal Medicine Work Phone: Comment on above: <200 mg/dL Desirable 200-240 mg/dL Borderline >240 mg/dL High Risk Triglyceride mass conc 146 mg/dL Normal [facility] Work Phone: Comment on above: Serum Triglycerides Reference Interval Normal <150 mg/dL Borderline high 150 - 199 mg/dL High 200 - 499 mg/dL Very High > or = 500 mg/dL TSHOrdered By: System Manage r on 07-24-2007 Thyrotropin Qn 0.76 {uIU/mL} Normal 0.34-4.82 Compreh ensive Internal Medicine Work Phone: HIP, MIN 2 VIEWS ([place])O rdered By: Certified Technician Specialist on 05-31-2007 HIP, MIN 2 VIEWS ([place]) See Note Normal [facility] Work Phone: Comment on above: Exam Number: [id number] AP AND LATERAL RIGHT HIP Being done for pain. There is moderate to marked eburnation of the superior articulatingaspect of the right hip. There is mild narrowing. No fracture isidentified. There are few cystic changes noted in the acetabulum. Articular surface of the femur appears normal. No fractures are seen.Soft tissues are unremarkable. IMPRESSIONMild to moderate degenerative changes. Further followup, possibly anMR scan would be more advantageous as well as clinical correlation. AP AND LATERAL LEFT HIP Being done for pain. There is a mirror image of the opposite with moderate eburnation andminimal narrowing. There is spur formation in the inferior aspect ofthe acetabulum. No fracture or subluxation is noted. There is spurformation in the superior aspect of the proximal femur. Soft tissuesare unremarkable. IMPRESSIONDegenerative changes. Reported By: GERALD MANDEL M.D. Exam Number: [id number] AP AND LATERAL RIGHT HIP Being done for pain. There is moderate to marked eburnation of the superior articulatingaspect of the right hip. There is mild narrowing. No fracture isidentified. There are few cystic changes noted in the acetabulum. Articular surface of the femur appears normal. No fractures are seen.Soft tissues are unremarkable. IMPRESSIONMild to moderate degenerative changes. Further followup, possibly anMR scan would be more advantageous as well as clinical correlation. AP AND LATERAL LEFT HIP Being done for pain. There is a mirror image of the opposite with moderate eburnation andminimal narrowing. There is spur formation in the inferior aspect ofthe acetabulum. No fracture or subluxation is noted. There is spurformation in the superior aspect of the proximal femur. Soft tissuesare unremarkable. IMPRESSIONDegenerative changes. Reported By: GERALD MANDEL M.D. BMPOrdered By: System Manage r on 11-17-2006 Anion gap 3 molar conc 5 mmol/L Normal 5-15 [facility] Work Phone: Calcium mass conc 8.7 mg/dL Normal 8.5-10.1 Compreh ensive Internal Medicine Work Phone: Chloride molar conc 106 mmol/L Normal 98-107 Compr ehensive Internal Medicine Work Phone: CO2 molar conc 29.4 mmol/L Abnormal 22.0-29.0 Comprehen sive Internal Medicine Work Phone: Creatinine mass conc 1.0 mg/dL Normal 0.6-1.0 Comp rehensive Internal Medicine Work Phone: Glucose mass conc 93 mg/dL Normal 70-110 Compreh ensive Internal Medicine Work Phone: Potassium molar conc 3.8 mmol/L Normal 3.5-5.1 Comp rehensive Internal Medicine Work Phone: Sodium molar conc 140 mmol/L Normal 136-145 Compreh ensive Internal Medicine Work Phone: Urea nitrogen mass conc 17 mg/dL Normal 7-18 [facility] Work Phone: Urea nitrogen/Creatinine mass ratio 17.0 {RATIO} Normal 10-20 [facility] Work Phone: CBCOrdered By: [employer] r on 11-17-2006 Erythrocyte distribution width Auto Ratio (RBC) 13.1 % Normal 11.6-14.6 [facility] Work Phone: Hematocrit Auto Volume Fraction (Bld) 34.8 % Abnormal 37-47 [facility] Internal Medicine Work Phone: Hemoglobin mass conc (Bld) 12.1 g/dL Normal 12.0-16.0 [facility] Work Phone: MCH Auto Entitic mass (RBC) 31.5 pg Normal 27.0-32.0 [facility] Work Phone: MCHC Auto mass conc (RBC) 34.8 g/dL Normal 32-36 [facility] Work Phone: MCV Auto Entitic volume (RBC) 90.6 fL Normal 81-99 [facility] Work Phone: Platelets Auto #/vol (Bld) 247 10*3/uL Normal 150-450 [facility] Work Phone: RBC Auto #/vol (Bld) 3.84 {M/mm3} Abnormal 4.2-5.4 Co mprehensive Internal Medicine Work Phone: WBC Auto #/vol (Bld) 5.7 10*3/uL Normal 4.4-11.0 Com prehensive Internal Medicine Work Phone: LIPIDOrdered By: System Cecelia angelica on 11-17-2006 Cholesterol in HDL mass conc 60 mg/dL Normal [facility] Work Phone: Comment on above: Reference Range HDL <40 mg/dL Low HDL Cholesterol HDL >or= 60 mg/dL High HDL Cholesterol Cholesterol in LDL mass conc 110 mg/dL Normal 0-130 [facility] Work Phone: Cholesterol in VLDL mass conc 19 mg/dL Normal 5-40 [facility] Work Phone: Cholesterol mass conc 189 mg/dL Normal Com prehensive Internal Medicine Work Phone: Comment on above: <200 mg/dL Desirable 200-240 mg/dL Borderline >240 mg/dL High Risk Triglyceride mass conc 96 mg/dL Normal [facility] Work Phone: Comment on above: Serum Triglycerides Reference Interval Normal <150 mg/dL Borderline high 150 - 199 mg/dL High 200 - 499 mg/dL Very High > or = 500 mg/dL MGOrdered By: Certified Technician Specialist on 11-17-2006 Magnesium mass conc 2.0 mg/dL Normal 1.5-2.2 Compr ehensive Internal Medicine Work Phone: PHOSOrdered By: System Manag er on 11-17-2006 PHOS 3.2 mg/dL Normal 2.5-4.9 [facility] Work Phone: PRO TIMEOrdered By: System M anager on 11-17-2006 INR Coag RelTime (PPP) 1.0 {INR} Normal [facility] Work Phone: Prothrombin time (PT) Coag time (PPP) 12.7 s Normal 11.7-13.3 [facility] Work Phone: PTTOrdered By: System Manage r on 11-17-2006 aPTT Coag time (Bld) 33.8 s Normal 24.6-36.6 [facility] Work Phone: AMYOrdered By: System Manage r on 11-16-2006 MICHAEL 62 U/L Normal 25-115 [facility] Work Phone: BMPOrdered By: System Manage r on 11-16-2006 Anion gap 3 molar conc 9 mmol/L Normal 5-15 [facility] Work Phone: Calcium mass conc 9.7 mg/dL Normal 8.5-10.1 Compreh ensive Internal Medicine Work Phone: Chloride molar conc 104 mmol/L Normal 98-107 Compr ehensive Internal Medicine Work Phone: CO2 molar conc 26.2 mmol/L Normal 22.0-29.0 Comprehen sive Internal Medicine Work Phone: Creatinine mass conc 1.0 mg/dL Normal 0.6-1.0 Comp rehensive Internal Medicine Work Phone: Glucose mass conc 118 mg/dL Abnormal 70-110 Compreh ensive Internal Medicine Work Phone: Comment on above: Fasting Glucose resu lt from 110 to <126 mg/dL suggests IMPAIRED HOMEOSTASIS per A.D.A. criteria. Potassium molar conc 3.3 mmol/L Abnormal 3.5-5.1 Comp rehensive Internal Medicine Work Phone: Sodium molar conc 139 mmol/L Normal 136-145 Compreh ensive Internal Medicine Work Phone: Urea nitrogen mass conc 22 mg/dL Abnormal 7-18 [facility] Work Phone: Urea nitrogen/Creatinine mass ratio 22.0 {RATIO} Abnormal 10-20 [facility] Work Phone: CBCDOrdered By: System Manag er on 11-16-2006 Basophils/100 WBC Auto (Bld) 0.2 % Normal 0-1 [facility] Work Phone: Eosinophils/100 WBC Auto (Bld) 0.2 % Normal 0-5 [facility] Work Phone: Erythrocyte distribution width Auto Ratio (RBC) 13.2 % Normal 11.6-14.6 [facility] Work Phone: Hematocrit Auto Volume Fraction (Bld) 38.3 % Normal 37-47 [facility]prehens [facility] Internal Medicine Work Phone: Hemoglobin mass conc (Bld) 13.3 g/dL Normal 12.0-16.0 [facility] Work Phone: Lymphocytes/100 WBC Auto (Bld) 10.8 % Abnormal 19-41 [facility] Work Phone: MCH Auto Entitic mass (RBC) 31.4 pg Normal 27.0-32.0 [facility] Work Phone: MCHC Auto mass conc (RBC) 34.8 g/dL Normal 32-36 [facility] Work Phone: MCV Auto Entitic volume (RBC) 90.4 fL Normal 81-99 [facility] Work Phone: Monocytes/100 WBC Auto (Bld) 6.2 % Normal 0-10 [facility] Work Phone: Neutrophils/100 WBC Auto (Bld) 82.6 % Abnormal 47-70 [facility] Work Phone: Platelet mean volume Auto Entitic volume (Bld) 8.2 fL Normal 6.5-12.0 [facility] Internal Medicine Work Phone: Platelets Auto #/vol (Bld) 280 10*3/uL Normal 150-450 [facility] Internal Medicine Work Phone: RBC Auto #/vol (Bld) 4.24 {M/mm3} Normal 4.2-5.4 Co mprehensive Internal Medicine Work Phone: WBC Auto #/vol (Bld) 6.7 10*3/uL Normal 4.4-11.0 [facility] Work Phone: CPK TOTALOrdered By: Certified Technician Specialist on 11-16-2006 CPK TOTAL 58 U/L Normal 21-215 [facility] Internal Medicine Work Phone: CPK TOTAL 66 U/L Normal 21-215 [facility] Internal Medicine Work Phone: CPKMBOrdered By: System Cecelia TidalScale on 11-16-2006 CK.MB mass conc ng/mL Normal 0.0-5.0 [facility] Internal Medicine Work Phone: Comment on above: CK-MB and RI Interpr etation MB Relative Index Non-AMI 5 5 > 4 CK.MB mass conc 0.6 ng/mL Normal 0.0-5.0 [facility] Work Phone: Comment on above: CK-MB and RI Interpr etation MB Relative Index Non-AMI 5 5 > 4 LIPASEOrdered By: System Man shirin on 11-16-2006 LIPASE 277 U/L Normal 114-286 [facility] Internal Medicine Work Phone: LIVEROrdered By: System [employer] on 11-16-2006 Albumin mass conc 3.7 g/dL Normal 3.4-5.0 [facility] Internal [facility] Work Phone: ALP enzyme act/vol 86 U/L Normal 50-136 [facility] Internal Medicine Work Phone: ALT enzyme act/vol 31 [iU]/L Normal 30-65 [facility] Internal Medicine Work Phone: AST enzyme act/vol 14 U/L Abnormal 15-37 [facility] Internal Medicine Work Phone: Bilirubin mass conc 0.39 mg/dL Normal 0.00-1.00 Compr [facility] Internal Medicine Work Phone: Bilirubin.direct mass conc 0.09 mg/dL Normal 0.00-0.30 [facility] Internal Medicine Work Phone: Protein mass conc 7.5 g/dL Normal 6.4-8.2 [facility] Internal [facility] Work Phone: ,SERUMOrdered By: Christopher ystem Staffing Assistant on 11-16-2006 ,SERUM SeeNote Normal [facility] Work Phone: Comment on above: Result: NEGATIVE TROPONIN-IOrdered By: Certified Technician Specialist on 11-16-2006 Troponin I.cardiac mass conc 0.06 ng/mL Normal [facility] Internal Medicine Work Phone: Comment on above: TROPONIN-I EXPECTED VALUES < 0.50 NEGATIVE 0.50 - 1.49 INDETERMINANT > OR = 1.50 SUGGEST SC Troponin I.cardiac mass conc ng/mL Normal [facility] Internal Medicine Work Phone: Comment on above: TROPONIN-I EXPECTED VALUES < 0.50 NEGATIVE 0.50 - 1.49 INDETERMINANT > OR = 1.50 SUGGEST SC COMP METABOLICOrdered By: Denis stem Staffing Assistant on 09-21-2006 Albumin mass conc 3.9 g/dL Normal 3.4-5.0 [facility] Work Phone: Albumin/Globulin mass ratio 1.1 {RATIO} Normal 0.9-2.4 [facility] Internal Medicine Work Phone: ALP enzyme act/vol 82 U/L Normal 50-136 [facility] Internal Medicine Work Phone: ALT enzyme act/vol 34 [iU]/L Normal 30-65 [facility] Internal Medicine Work Phone: Anion gap 3 molar conc 9 mmol/L Normal 5-15 [facility] Internal Medicine Work Phone: AST enzyme act/vol 18 U/L Normal 15-37 [facility] Internal Medicine Work Phone: Bilirubin mass conc 0.51 mg/dL Normal 0.00-1.00 Compr [facility] Internal Medicine Work Phone: Calcium mass conc 9.2 mg/dL Normal 8.5-10.1 Compreh [facility] Internal Medicine Work Phone: Chloride molar conc 103 mmol/L Normal 98-107 Compr [facility] Internal Medicine Work Phone: CO2 molar conc 29.1 mmol/L Abnormal 22.0-29.0 [facility] Work Phone: Creatinine mass conc 1.1 mg/dL Abnormal 0.6-1.0 [facility] Work Phone: Globulin Calculated mass conc (S) 3.4 g/dL Normal 2.3-3.5 [facility] Internal Medicine Work Phone: Glucose mass conc 88 mg/dL Normal 70-110 [facility] Work Phone: Potassium molar conc 3.5 mmol/L Normal 3.5-5.1 [facility] Work Phone: Protein mass conc 7.3 g/dL Normal 6.4-8.2 [facility] Work Phone: Sodium molar conc 141 mmol/L Normal 136-145 [facility] Work Phone: Urea nitrogen mass conc 16 mg/dL Normal 7-18 [facility] Internal Medicine Work Phone: Urea nitrogen/Creatinine mass ratio 14.5 {RATIO} Normal 10-20 [facility] Internal Medicine Work Phone: PFLIPOrdered By: System Cecelia dominguez on 09-21-2006 Cholesterol in HDL mass conc 57 mg/dL Normal [facility] Internal Medicine Work Phone: Comment on above: Reference Range HDL <40 mg/dL Low HDL Cholesterol HDL >or= 60 mg/dL High HDL Cholesterol Cholesterol in LDL mass conc 155 mg/dL Abnormal 0-130 [facility] Work Phone: Cholesterol in VLDL mass conc 26 mg/dL Normal 5-40 [facility] Work Phone: Cholesterol mass conc 238 mg/dL Abnormal Com prehensive Internal Medicine Work Phone: Comment on above: <200 mg/dL Desirable 200-240 mg/dL Borderline >240 mg/dL High Risk Triglyceride mass conc 128 mg/dL Normal [facility] Work Phone: Comment on above: Serum Triglycerides Reference Interval Normal <150 mg/dL Borderline high 150 - 199 mg/dL High 200 - 499 mg/dL Very High > or = 500 mg/dL TSHOrdered By: System Manage r on 09-21-2006 Thyrotropin Qn 0.72 {uIU/mL} Normal 0.34-4.82 Compreh ensive Internal Medicine Work Phone: KOrdered By: Certified Technician Specialist on 07-25-2006 Potassium molar conc 3.8 mmol/L Normal 3.5-5.1 Comp rehensive Internal Medicine Work Phone: TISS/FLUIDOrdered By: Certified Technician Specialist on 07-19-2006 TISS/FLUID Normal [facility] Work Phone: Comment on above: OPERATION CT guided bx PRE-OPERATIVE DIAGNOSIS Mass on left at base of neck TISSUE SUBMITTED A- BX core x 2, B- FNA: CB, 6 pap, 6 imprints MICROSCOPIC DIAGNOSIS A. Neck mass: Negative for malignancy. See Comment. COMMENT The specimen is evaluated at the time of FNA for adequacy. A - The specimen consists of thyroid parenchymal tissue. The mass may represent residual colloid nodule. Clinical correlation is necessary. Please also make reference to patient's previous specimen left thyroid lobectomy and isthumsectomy from 11/06/02 performed at [place], [place],([id number]) with a diagnosis of thyroid lobectomy with multinodular goiter. No evidence of malignancy. CYTOLOGY STUDY B - The specimen consists of benign follicular cells. Malignant cells are not identified. GROSS DESCRIPTION A - Received in formalin labeled with patient name and number and designated neck mass are multiple minute fragments of roth soft tissue measuring in aggregate 0.2 x 0.1 x less than 0.1 cm. The specimen is totally submitted in one cassette. CYTOLOGY GROSS B - Received is 0.1 ml of bloody fluid designated CT guided biopsy. Six imprints and 6 paps are made from the submitted fluid and the rest is added to formalin for cell block preparation. Submitted for cytology study. / SJ:derik 07/19/06 TC:5 REPORT SIGNED: JACQUELINE YOO 07/20/06 CBCOrdered By: [employer] r on 07-15-2006 Erythrocyte distribution width Auto Ratio (RBC) 13.6 % Normal 11.6-14.6 [facility] Internal Medicine Work Phone: Hematocrit Auto Volume Fraction (Bld) 41.0 % Normal 37-47 Comprehens [facility] Internal Medicine Work Phone: Hemoglobin mass conc (Bld) 13.9 g/dL Normal 12.0-16.0 [facility] Internal Medicine Work Phone: MCH Auto Entitic mass (RBC) 30.8 pg Normal 27.0-32.0 [facility] Internal Medicine Work Phone: MCHC Auto mass conc (RBC) 34.0 g/dL Normal 32-36 [facility] Internal Medicine Work Phone: MCV Auto Entitic volume (RBC) 90.5 fL Normal 81-99 [facility] Work Phone: Platelets Auto #/vol (Bld) 300 10*3/uL Normal 150-450 [facility] Work Phone: RBC Auto #/vol (Bld) 4.53 {M/mm3} Normal 4.2-5.4 Co mprehensive Internal Medicine Work Phone: WBC Auto #/vol (Bld) 6.4 10*3/uL Normal 4.4-11.0 [facility] prehensive Internal Medicine Work Phone: PRO TIMEOrdered By: Debora KDPOF rebekah on 07-15-2006 INR Coag RelTime (PPP) 1.0 {INR} Normal [facility] Work Phone: Prothrombin time (PT) Coag time (PPP) 12.0 s Normal 11.7-13.3 [facility] Work Phone: PTTOrdered By: System Manage r on 07-15-2006 aPTT Coag time (Bld) 33.8 s Normal 24.6-36.6 Comp rehensive Internal Medicine Work Phone: KOrdered By: Certified Technician Specialist on 07-11-2006 Potassium molar conc 3.4 mmol/L Abnormal 3.5-5.1 Comp rehensive Internal Medicine Work Phone: MGOrdered By: Certified Technician Specialist on 07-11-2006 Magnesium mass conc 2.1 mg/dL Normal 1.5-2.2 Compr ehensive Internal Medicine Work Phone: TSHOrdered By: System Manage r on 07-11-2006 Thyrotropin Qn 0.62 {uIU/mL} Normal 0.34-4.82 Compreh ensive Internal Medicine Work Phone: Vital Signs Date Time Vital Sign Value Performing Clinician Facility 06-27-2025 09:56-0400 Diastolic blood pressure 81 mm[Hg] Dian Duron FLIGHT STEWARD-C Work Phone: [facility] 06-27-2025 09:56-0400 Systolic blood pressure 149 mm[Hg] Dian Duron FLIGHT STEWARD-C Work Phone: [facility] 06-27-2025 08:14-0400 Body mass index (BMI) [Ratio] 37.9 kg/m2 Dian Duron FLIGHT STEWARD-C Work Phone: [facility] 06-27-2025 08:14-0400 Body weight 103.41 kg Dian Duron FLIGHT STEWARD-C Work Phone: [facility] 06-27-2025 08:14-0400 Heart rate 87 /min Dian Duron FLIGHT STEWARD-C Work Phone: [facility] 06-27-2025 08:14-0400 Respiratory rate 20 /min Dian Duron FLIGHT STEWARD-C Work Phone: [facility] 06-27-2025 08:14-0400 SaO2% (BldA) [Mass fraction] 97 % Dian Oliverio FLIGHT STEWARD-C Work Phone: [facility] 02-14-2025 13:27-0400 Body height 165.1 cm Dian Oliverio FLIGHT STEWARD-C Work Phone: [facility] 02-14-2025 13:27-0400 Respiratory rate 16 /min Dian Oliverio FLIGHT STEWARD-C Work Phone: [facility] 01-13-2025 07:30-0400 Body height 165.1 cm Dian Oliverio FLIGHT STEWARD-C Work Phone: [facility] 01-13-2025 07:30-0400 Body mass index (BMI) [Ratio] 38.4 kg/m2 Dian Oliverio FLIGHT STEWARD-C Work Phone: [facility] 01-13-2025 07:30-0400 Body weight 104.77 kg Dian Oliverio FLIGHT STEWARD-C Work Phone: [facility] 01-13-2025 07:30-0400 Diastolic blood pressure 80 mm[Hg] Dian Oliverio FLIGHT STEWARD-C Work Phone: [facility] 01-13-2025 07:30-0400 Heart rate 93 /min Dian Oliverio FLIGHT STEWARD-C Work Phone: [facility] 01-13-2025 07:30-0400 Respiratory rate 18 /min Dian Oliverio FLIGHT STEWARD-C Work Phone: [facility] 01-13-2025 07:30-0400 SaO2% (BldA) [Mass fraction] 97 % Dian Oliverio FLIGHT STEWARD-C Work Phone: [facility] 01-13-2025 07:30-0400 Systolic blood pressure 123 mm[Hg] Dian Oliverio FLIGHT STEWARD-C Work Phone: [facility] 08-06-2024 12:54-0500 Body height 165.1 cm Dian Oliverio FLIGHT STEWARD-C Work Phone: [facility] 08-06-2024 12:54-0500 Body mass index (BMI) [Ratio] 38.4 kg/m2 Dian Oliverio FLIGHT STEWARD-C Work Phone: [facility] 08-06-2024 12:54-0500 Body temperature 97.6 [degF] Dian Ramosam FLIGHT STEWARD-C Work Phone: [facility] 08-06-2024 12:54-0500 Body weight 104.77 kg Dian Ramosam FLIGHT STEWARD-C Work Phone: [facility] 08-06-2024 12:54-0500 Diastolic blood pressure 84 mm[Hg] Dian Ramosam FLIGHT STEWARD-C Work Phone: [facility] 08-06-2024 12:54-0500 Heart rate 88 /min Dian Ramosam FLIGHT STEWARD-C Work Phone: [facility] 08-06-2024 12:54-0500 Respiratory rate 18 /min Dian Ramosam FLIGHT STEWARD-C Work Phone: [facility] 08-06-2024 12:54-0500 SaO2% (BldA) [Mass fraction] 95 % Dian Ramosam FLIGHT STEWARD-C Work Phone: [facility] 08-06-2024 12:54-0500 Systolic blood pressure 130 mm[Hg] Dian Ramosam FLIGHT STEWARD-C Work Phone: [facility] 11-02-2023 09:57-0500 Body height 162.56 cm FLIGHT STEWARD-C Dian Oliverio Work Phone: [facility] 11-02-2023 09:57-0500 Body mass index (BMI) [Ratio] 39.4 kg/m2 FLIGHT STEWARD-C Dian Oliverio Work Phone: [facility] 11-02-2023 09:57-0500 Body weight 104.09 kg FLIGHT STEWARD-C Dian Oliverio Work Phone: [facility] 11-02-2023 09:57-0500 Diastolic blood pressure 73 mm[Hg] FLIGHT STEWARD-C Dian Oliverio Work Phone: [facility] 11-02-2023 09:57-0500 Heart rate 88 /min FLIGHT STEWARD-Aquilino Duron Work Phone: [facility] 11-02-2023 09:57-0500 Respiratory rate 16 /min FLIGHT STEWARD-Aquilino Duron Work Phone: [facility] 11-02-2023 09:57-0500 Systolic blood pressure 127 mm[Hg] FLIGHT STEWARD-Aquilino Duron Work Phone: [facility] 10-03-2023 10:53-0500 Body height 162.56 cm No Primary Care Physician [facility] 10-03-2023 10:53-0500 Body weight 105.23 kg No Primary Care Physician [facility] 10-02-2023 08:04-0500 Body mass index (BMI) [Ratio] 39.8 kg/m2 No Primary Care Physician [facility] 08-30-2023 11:25-0500 Body height 165 cm No Primary Care Physician [facility] 08-30-2023 11:25-0500 Body mass index (BMI) [Ratio] 38.6 kg/m2 No Primary Care Physician [facility] 08-30-2023 11:25-0500 Body weight 105.23 kg No Primary Care Physician [facility] 08-30-2023 11:25-0500 Diastolic blood pressure 76 mm[Hg] No Primary Care Physician [facility] 08-30-2023 11:25-0500 Heart rate 97 /min No Primary Care Physician [facility] 08-30-2023 11:25-0500 Respiratory rate 18 /min No Primary Care Physician [facility] 08-30-2023 11:25-0500 SaO2% (BldA) [Mass fraction] 98 % No Primary Care Physician [facility] 08-30-2023 11:25-0500 Systolic blood pressure 111 mm[Hg] No Primary Care Physician [facility] 06-24-2023 06:41-0400 Body height 165 cm No Primary Care Physician [facility] 06-24-2023 06:41-0400 Body mass index (BMI) [Ratio] 38.5 kg/m2 No Primary Care Physician [facility] 06-24-2023 06:41-0400 Body temperature 98.4 [degF] No Primary Care Physician [facility] 06-24-2023 06:41-0400 Body weight 104.7 kg No Primary Care Physician [facility] 06-24-2023 06:41-0400 Diastolic blood pressure 73 mm[Hg] No Primary Care Physician [facility] 06-24-2023 06:41-0400 Heart rate 95 /min No Primary Care Physician [facility] 06-24-2023 06:41-0400 Respiratory rate 22 /min No Primary Care Physician [facility] 06-24-2023 06:41-0400 SaO2% (BldA) [Mass fraction] 93 % No Primary Care Physician [facility] 06-24-2023 06:41-0400 Systolic blood pressure 172 mm[Hg] No Primary Care Physician [facility] 06-23-2023 08:47-0400 Body height 165.74 cm Krista Castillo LPN [facility] Work Phone: 06-23-2023 08:47-0400 Body mass index (BMI) [Ratio] 38.48 kg/m2 Krista Blackrb SUEDING MACHINE OPERATOR [facility]; [facility] Work Phone: 06-23-2023 08:47-0400 Body surface area Derived from formula 2.12 m2 Krista Slarb SUEDING MACHINE OPERATOR [facility]; [facility] Work Phone: 06-23-2023 08:47-0400 Body temperature 96.9 [degF] Krista Slarb SUEDING MACHINE OPERATOR [facility]; [facility] Work Phone: 06-23-2023 08:47-0400 Body weight 105.69 kg Krista Blackrb SUEDING MACHINE OPERATOR [facility] Work Phone: 06-23-2023 08:47-0400 Diastolic blood pressure 78 mm[Hg] Krista Slarb SUEDING MACHINE OPERATOR [facility]; [facility] Work Phone: 06-23-2023 08:47-0400 Heart rate 66 /min Krista Slarb SUEDING MACHINE OPERATOR [facility] Work Phone: 06-23-2023 08:47-0400 Respiratory rate 17 /min Krista Slarb SUEDING MACHINE OPERATOR [facility] Work Phone: 06-23-2023 08:47-0400 SaO2% (BldA) [Mass fraction] 97 % Krista Slarb SUEDING MACHINE OPERATOR [facility]; [facility] Work Phone: 06-23-2023 08:47-0400 Systolic blood pressure 122 mm[Hg] Krista Slarb SUEDING MACHINE OPERATOR [facility] Work Phone: 02-20-2023 09:33-0400 Body height 165.74 cm Krista Slarb SUEDING MACHINE OPERATOR [facility] Work Phone: 02-20-2023 09:33-0400 Body mass index (BMI) [Ratio] 38.48 kg/m2 Krista Slarb SUEDING MACHINE OPERATOR [facility]; [facility] Work Phone: 02-20-2023 09:33-0400 Body surface area Derived from formula 2.12 m2 Krista Slarb SUEDING MACHINE OPERATOR [facility]; [facility] Work Phone: 02-20-2023 09:33-0400 Body temperature 97.9 [degF] Krista Slarb SUEDING MACHINE OPERATOR [facility]; [facility] Work Phone: 02-20-2023 09:33-0400 Body weight 105.69 kg Krista Slarb SUEDING MACHINE OPERATOR [facility] Work Phone: 02-20-2023 09:33-0400 Diastolic blood pressure 76 mm[Hg] Krista Slarb SUEDING MACHINE OPERATOR [facility] Work Phone: 02-20-2023 09:33-0400 Heart rate 85 /min Krista Slarb SUEDING MACHINE OPERATOR [facility] Work Phone: 02-20-2023 09:33-0400 Respiratory rate 16 /min Krista Slarb SUEDING MACHINE OPERATOR [facility] Work Phone: 02-20-2023 09:33-0400 SaO2% (BldA) [Mass fraction] 97 % Krista Slarb SUEDING MACHINE OPERATOR [facility]; [facility] Work Phone: 02-20-2023 09:33-0400 Systolic blood pressure 122 mm[Hg] Krista Castillo LPN [facility]; [facility] Work Phone: 10-19-2022 09:45-0500 Body height 165.1 cm No Primary Care Physician [facility] 09-19-2022 11:31-0500 Body mass index (BMI) [Ratio] 37.9 kg/m2 No Primary Care Physician [facility] 09-19-2022 11:31-0500 Body weight 103.41 kg No Primary Care Physician [facility] 09-19-2022 11:31-0500 Diastolic blood pressure 84 mm[Hg] No Primary Care Physician [facility] 09-19-2022 11:31-0500 Heart rate 91 /min No Primary Care Physician [facility] 09-19-2022 11:31-0500 Respiratory rate 18 /min No Primary Care Physician [facility] 09-19-2022 11:31-0500 SaO2% (BldA) [Mass fraction] 94 % No Primary Care Physician [facility] 09-19-2022 11:31-0500 Systolic blood pressure 132 mm[Hg] No Primary Care Physician [facility] 08-22-2022 10:03-0500 Body height 165.74 cm Krista Castillo LPN [facility]; [facility] Work Phone: 08-22-2022 10:03-0500 Body mass index (BMI) [Ratio] 37.95 kg/m2 Krista Castillo LPN [facility]; [facility] Work Phone: 08-22-2022 10:03-0500 Body surface area Derived from formula 2.1 m2 Krista Castillo LPN [facility]; [facility] Work Phone: 08-22-2022 10:03-0500 Body temperature 98.2 [degF] Krista Castillo LPN [facility]; [facility] Work Phone: 08-22-2022 10:03-0500 Body weight 104.24 kg Krista Castillo LPN [facility]; [facility] Work Phone: 08-22-2022 10:03-0500 Diastolic blood pressure 80 mm[Hg] Krista Slarb SUEDING MACHINE OPERATOR [facility] Work Phone: 08-22-2022 10:03-0500 Heart rate 89 /min Krista Slarb SUEDING MACHINE OPERATOR [facility] Work Phone: 08-22-2022 10:03-0500 Respiratory rate 16 /min Krista Slarb SUEDING MACHINE OPERATOR [facility] Work Phone: 08-22-2022 10:03-0500 SaO2% (BldA) [Mass fraction] 96 % Krista Slarb SUEDING MACHINE OPERATOR [facility] Work Phone: 08-22-2022 10:03-0500 Systolic blood pressure 122 mm[Hg] Krista Slarb SUEDING MACHINE OPERATOR [facility] Work Phone: 03-21-2022 09:08-0400 Diastolic blood pressure 80 mm[Hg] FLIGHT STEWARD-C Lakisha Changa FLIGHT STEWARD Work Phone: [facility] Work Phone: 03-21-2022 09:08-0400 Heart rate 80 /min FLIGHT STEWARD-C Lakisha Changa FLIGHT STEWARD Work Phone: [facility] Work Phone: 03-21-2022 09:08-0400 Respiratory rate 16 /min FLIGHT STEWARD-C Lakisha Blancaesa FLIGHT STEWARD Work Phone: [facility] Work Phone: 03-21-2022 09:08-0400 SaO2% (BldA) [Mass fraction] 98 % FLIGHT STEWARD-C Lakisha Blancaesa FLIGHT STEWARD Work Phone: [facility] Work Phone: 03-21-2022 09:08-0400 Systolic blood pressure 124 mm[Hg] FLIGHT STEWARD-C Lakisha Ciesa FLIGHT STEWARD Work Phone: [facility] Work Phone: 03-21-2022 08:28-0400 Body temperature 97.4 [degF] FLIGHT STEWARD-C Lakisha Spears FLIGHT STEWARD Work Phone: [facility] Work Phone: 03-21-2022 06:25-0400 Body height 165.1 cm FLIGHT STEWARD-C Lakisha Spears FLIGHT STEWARD Work Phone: [facility] Work Phone: 03-21-2022 06:25-0400 Body mass index (BMI) [Ratio] 38.2 kg/m2 FLIGHT STEWARD-C Lakisha Spears FLIGHT STEWARD Work Phone: [facility] Work Phone: 03-21-2022 06:25-0400 Body weight 104.14 kg FLIGHT STEWARD-C Lakisha Spears FLIGHT STEWARD Work Phone: [facility] Work Phone: 01-31-2022 09:21-0400 Body height 165.74 cm Meena Su [facility] Work Phone: 01-31-2022 09:21-0400 Body mass index (BMI) [Ratio] 37.62 kg/m2 Meena Su [facility] Work Phone: 01-31-2022 09:21-0400 Body surface area Derived from formula 2.1 m2 Meena Su [facility] Work Phone: 01-31-2022 09:21-0400 Body temperature 97.3 [degF] Meena Su [facility] Work Phone: 01-31-2022 09:21-0400 Body weight 103.33 kg Meena Su [facility] Work Phone: 01-31-2022 09:21-0400 Diastolic blood pressure 82 mm[Hg] Meena Su [facility] Work Phone: 01-31-2022 09:21-0400 Heart rate 89 /min Meena Su [facility] Work Phone: 01-31-2022 09:21-0400 Respiratory rate 16 /min Meena Su [facility] Work Phone: 01-31-2022 09:21-0400 SaO2% (BldA) [Mass fraction] 99 % Meena Su [facility] Work Phone: 01-31-2022 09:21-0400 Systolic blood pressure 126 mm[Hg] Meena Su [facility] Work Phone: 01-27-2022 20:16-0400 Diastolic blood pressure 86 mm[Hg] FLIGHT STEWARD-C Lakisha Changa FLIGHT STEWARD Work Phone: [facility] Work Phone: 01-27-2022 20:16-0400 Systolic blood pressure 144 mm[Hg] FLIGHT STEWARD-C Lakisha Changa FLIGHT STEWARD Work Phone: [facility] Work Phone: 01-27-2022 20:16-0400 Diastolic blood pressure 86 mm[Hg] FLIGHT STEWARD-C Lakisha Blancaesa FLIGHT STEWARD Work Phone: [facility] Work Phone: 01-27-2022 20:16-0400 Systolic blood pressure 144 mm[Hg] FLIGHT STEWARD-C Lakisha Blancaesa FLIGHT STEWARD Work Phone: [facility] Work Phone: 01-27-2022 10:48-0400 Body mass index (BMI) [Ratio] 39.4 kg/m2 FLIGHT STEWARD-C Lakisha Ciesa FLIGHT STEWARD Work Phone: [facility] Work Phone: 01-27-2022 10:48-0400 Body temperature 98.6 [degF] FLIGHT STEWARD-C Lakisha Riannaesa FLIGHT STEWARD Work Phone: [facility] Work Phone: 01-27-2022 10:48-0400 Body weight 104.32 kg FLIGHT STEWARD-C Lakisha Spears FLIGHT STEWARD Work Phone: [facility] Work Phone: 01-27-2022 10:48-0400 Heart rate 99 /min FLIGHT STEWARD-C Lakisha Spears FLIGHT STEWARD Work Phone: [facility] Work Phone: 01-27-2022 10:48-0400 Respiratory rate 20 /min FLIGHT STEWARD-C Lakisha Spears FLIGHT STEWARD Work Phone: [facility] Work Phone: 01-27-2022 10:48-0400 SaO2% (BldA) [Mass fraction] 98 % FLIGHT STEWARD-C Lakisha Spears FLIGHT STEWARD Work Phone: [facility] Work Phone: 01-27-2022 10:48-0400 Body height 162.56 cm FLIGHT STEWARD-C Lakisha Spears FLIGHT STEWARD Work Phone: [facility] Work Phone: 01-27-2022 10:48-0400 Body mass index (BMI) [Ratio] 39.4 kg/m2 FLIGHT STEWARD-C Lakisha Spears FLIGHT STEWARD Work Phone: [facility] Work Phone: 01-27-2022 10:48-0400 Body temperature 98.6 [degF] FLIGHT STEWARD-C Lakisha Spears FLIGHT STEWARD Work Phone: [facility] Work Phone: 01-27-2022 10:48-0400 Body weight 104.32 kg FLIGHT STEWARD-C Lakisha Spears FLIGHT STEWARD Work Phone: [facility] Work Phone: 01-27-2022 10:48-0400 Heart rate 99 /min FLIGHT STEWARD-C Lakisha Spears FLIGHT STEWARD Work Phone: [facility] Work Phone: 01-27-2022 10:48-0400 Respiratory rate 20 /min FLIGHT STEWARD-C Lakisha Spears FLIGHT STEWARD Work Phone: [facility] Work Phone: 01-27-2022 10:48-0400 SaO2% (BldA) [Mass fraction] 98 % FLIGHT STEWARD-C Lakisha Changa FLIGHT STEWARD Work Phone: [facility] Work Phone: 11-03-2021 07:29-0500 Body mass index (BMI) [Ratio] 38.6 kg/m2 FLIGHT STEWARD-C Lakisha Changa FLIGHT STEWARD Work Phone: [facility] Work Phone: 11-03-2021 07:29-0500 Body weight 102.05 kg FLIGHT STEWARD-C Lakisha Changa FLIGHT STEWARD Work Phone: [facility] Work Phone: 11-03-2021 07:29-0500 Diastolic blood pressure 82 mm[Hg] FLIGHT STEWARD-C Lakisha Changa FLIGHT STEWARD Work Phone: [facility] Work Phone: 11-03-2021 07:29-0500 Heart rate 87 /min FLIGHT STEWARD-C Lakisha Changa FLIGHT STEWARD Work Phone: [facility] Work Phone: 11-03-2021 07:29-0500 Respiratory rate 18 /min FLIGHT STEWARD-C Lakisha Changa FLIGHT STEWARD Work Phone: [facility] Work Phone: 11-03-2021 07:29-0500 SaO2% (BldA) [Mass fraction] 98 % FLIGHT STEWARD-C Lakisha Changa FLIGHT STEWARD Work Phone: [facility] Work Phone: 11-03-2021 07:29-0500 Systolic blood pressure 138 mm[Hg] FLIGHT STEWARD-C Lakisha Changa FLIGHT STEWARD Work Phone: [facility] Work Phone: 10-31-2021 09:23-0500 Body temperature 97.3 [degF] FLIGHT STEWARD-C Lakisha Changa FLIGHT STEWARD Work Phone: [facility] Work Phone: 10-31-2021 09:23-0500 Diastolic blood pressure 84 mm[Hg] FLIGHT STEWARD-C Lakisha Changa FLIGHT STEWARD Work Phone: [facility] Work Phone: 10-31-2021 09:23-0500 Heart rate 93 /min FLIGHT STEWARD-C Lakisha Blancaesa FLIGHT STEWARD Work Phone: [facility] Work Phone: 10-31-2021 09:23-0500 Respiratory rate 16 /min FLIGHT STEWARD-C Lakisha Changa FLIGHT STEWARD Work Phone: [facility] Work Phone: 10-31-2021 09:23-0500 SaO2% (BldA) [Mass fraction] 99 % FLIGHT STEWARD-C Lakisha Changa FLIGHT STEWARD Work Phone: [facility] Work Phone: 10-31-2021 09:23-0500 Systolic blood pressure 122 mm[Hg] FLIGHT STEWARD-C Lakisha Changa FLIGHT STEWARD Work Phone: [facility] Work Phone: 10-11-2021 07:38-0500 Body weight 101.6 kg FLIGHT STEWARD-C Lakisha Changa FLIGHT STEWARD Work Phone: [facility] Work Phone: 10-08-2021 06:51-0500 Body mass index (BMI) [Ratio] 38.4 kg/m2 FLIGHT STEWARD-C Lakisha Changa FLIGHT STEWARD Work Phone: [facility] Work Phone: 08-25-2021 08:17-0500 Body height 165.74 cm Preston Kang LPN [facility]; [facility] Work Phone: 08-25-2021 08:17-0500 Body mass index (BMI) [Ratio] 36.96 kg/m2 Preston Kang SUEDING MACHINE OPERATOR [facility]; [facility] Work Phone: 08-25-2021 08:17-0500 Body surface area Derived from formula 2.08 m2 Preston Kang LPN [facility]; [facility] Work Phone: 08-25-2021 08:17-0500 Body temperature 98.6 [degF] Preston Kang LPN [facility]; [facility] Work Phone: 08-25-2021 08:17-0500 Body weight 101.52 kg Preston Kang LPN [facility]; [facility] Work Phone: 08-25-2021 08:17-0500 Diastolic blood pressure 80 mm[Hg] Preston Kang LPN [facility]; [facility] Work Phone: 08-25-2021 08:17-0500 Heart rate 100 /min Preston Kang LPN [facility]; [facility] Work Phone: 08-25-2021 08:17-0500 Respiratory rate 16 /min Preston Kang LPN [facility]; [facility] Work Phone: 08-25-2021 08:17-0500 SaO2% (BldA) [Mass fraction] 96 % Preston Kang LPN [facility]; [facility] Work Phone: 08-25-2021 08:17-0500 Systolic blood pressure 132 mm[Hg] Preston Kang LPN [facility]; [facility] Work Phone: 05-26-2021 10:40-0400 Body height 165.74 cm Maria Luisa Villegas LPN [facility]; [facility] Work Phone: 05-26-2021 10:40-0400 Body mass index (BMI) [Ratio] 36.91 kg/m2 Maria Luisa Villegas LPN [facility]; [facility] Work Phone: 05-26-2021 10:40-0400 Body surface area Derived from formula 2.08 m2 Maria Luisa Villegas LPN [facility]; [facility] Work Phone: 05-26-2021 10:40-0400 Body temperature 97.1 [degF] Maria Luisa Villegas LPN [facility]; [facility] Work Phone: 05-26-2021 10:40-0400 Body weight 101.38 kg Maria Luisa Bakari LPN [facility]; [facility] Work Phone: 05-26-2021 10:40-0400 Diastolic blood pressure 90 mm[Hg] Maria Luisa Bakari GABY [facility]; [facility] Work Phone: 05-26-2021 10:40-0400 Heart rate 83 /min Maria Luisa Villegas LPN [facility]; [facility] Work Phone: 05-26-2021 10:40-0400 Respiratory rate 16 /min Maria Luisa Bakari LPN [facility]; [facility] Work Phone: 05-26-2021 10:40-0400 SaO2% (BldA) [Mass fraction] 97 % Maria Luisa Bakari LPN [facility]; [facility] Work Phone: 05-26-2021 10:40-0400 Systolic blood pressure 122 mm[Hg] Maria Luisa Villegas LPN [facility]; [facility] Work Phone: 05-11-2021 08:47-0400 Body height 165.74 cm Maria Luisa Villegas LPN [facility]; [facility] Work Phone: 05-11-2021 08:47-0400 Body mass index (BMI) [Ratio] 36.91 kg/m2 Maria Luisa Villegas LPN [facility]; [facility] Work Phone: 05-11-2021 08:47-0400 Body surface area Derived from formula 2.08 m2 Maria Luisa Villegas LPN [facility]; [facility] Work Phone: 05-11-2021 08:47-0400 Body temperature 96.9 [degF] Maria Luisa Bakari LPN [facility]; [facility] Work Phone: 05-11-2021 08:47-0400 Body weight 101.38 kg Maria Luisa Villegas LPN [facility]; [facility] Work Phone: 05-11-2021 08:47-0400 Diastolic blood pressure 90 mm[Hg] Maria Luisa Villegas LPN [facility]; [facility] Work Phone: 05-11-2021 08:47-0400 Heart rate 91 /min Maria Luisa Villegas LPN [facility]; [facility] Work Phone: 05-11-2021 08:47-0400 Respiratory rate 16 /min Maria Luisa Villegas LPN [facility]; [facility] Work Phone: 05-11-2021 08:47-0400 SaO2% (BldA) [Mass fraction] 96 % Maria Luisa Villegas LPN [facility]; [facility] Work Phone: 05-11-2021 08:47-0400 Systolic blood pressure 128 mm[Hg] Maria Luisa Villegas LPN [facility]; [facility] Work Phone: 03-02-2021 08:17-0400 Body height 165.74 cm Preston Kang LPN [facility]; [facility] Work Phone: 03-02-2021 08:17-0400 Body mass index (BMI) [Ratio] 37.65 kg/m2 Preston Kang LPN [facility]; [facility] Work Phone: 03-02-2021 08:17-0400 Body surface area Derived from formula 2.1 m2 Preston Kang LPN [facility]; [facility] Work Phone: 03-02-2021 08:17-0400 Body temperature 97.2 [degF] Preston Kang LPN [facility]; [facility] Work Phone: 03-02-2021 08:17-0400 Body weight 103.42 kg Preston Kang LPN [facility]; [facility] Work Phone: 03-02-2021 08:17-0400 Diastolic blood pressure 82 mm[Hg] Preston Kang LPN [facility]; [facility] Work Phone: 03-02-2021 08:17-0400 Heart rate 87 /min Preston Kang LPN [facility]; [facility] Work Phone: 03-02-2021 08:17-0400 Respiratory rate 16 /min Preston Kang LPN [facility]; [facility] Work Phone: 03-02-2021 08:17-0400 SaO2% (BldA) [Mass fraction] 98 % Preston Kang LPN [facility]; [facility] Work Phone: 03-02-2021 08:17-0400 Systolic blood pressure 128 mm[Hg] Preston Kang LPN [facility]; [facility] Work Phone: 12-23-2020 09:17-0400 BMI (Body Mass Index) 37.98 kg/m2 Preston Kang LPN [facility]; [facility] Work Phone: 12-23-2020 09:17-0400 Body Temperature 96.9 [degF] Preston Kang LPN [facility]; [facility] Work Phone: Comment on above: Method: Infrared 12-23-2020 09:17-0400 Body weight 104.33 kg Preston Kang LPN [facility]; [facility] Work Phone: 12-23-2020 09:17-0400 BP Diastolic 80 mm[Hg] Preston Kang LPN [facility]; [facility] Work Phone: Comment on above: Patient Position: Sitting; Cuff Location : Left Arm; Cuff Size: Standard 12-23-2020 09:17-0400 BP Systolic 134 mm[Hg] Preston Kang LPN [facility]; [facility] Work Phone: Comment on above: Patient Position: Sitting; Cuff Location : Left Arm; Cuff Size: Standard 12-23-2020 09:17-0400 BSA (Body Surface Area) 2.11 m2 Preston Kang LPN [facility]; [facility] Work Phone: 12-23-2020 09:17-0400 Height 165.74 cm Preston Kang LPN [facility]; [facility] Work Phone: 12-23-2020 09:17-0400 Pulse (Heart Rate) 98 /min Preston Kang LPN [facility]; [facility] Work Phone: Comment on above: Pattern: Regular 12-23-2020 09:17-0400 Pulse Oximetry 98 % Lakisha Spears [facility]; [facility] Work Phone: Comment on above: Room air 12-23-2020 09:17-0400 Respiratory Rate 18 /min Preston Kang LPN [facility]; [facility] Work Phone: Comment on above: Pattern: Unlabored 12-23-2020 09:17-0400 SaO2% (BldA) [Mass fraction] 98 % Preston Kang LPN [facility]; [facility] Work Phone: 11-13-2020 07:23-0500 BMI (Body Mass Index) 37.98 kg/m2 Preston Kang LPN [facility]; [facility] Work Phone: 11-13-2020 07:23-0500 Body weight 104.33 kg Preston Kang LPN [facility]; [facility] Work Phone: 11-13-2020 07:23-0500 BSA (Body Surface Area) 2.11 m2 Preston Kang LPN [facility]; [facility] Work Phone: 11-13-2020 07:23-0500 Height 165.74 cm Preston Kang LPN [facility]; [facility] Work Phone: 08-14-2020 07:58-0500 BMI (Body Mass Index) 37.98 kg/m2 Priscilla Whit YARD CLERK Work Phone: [facility] Work Phone: 08-14-2020 07:58-0500 Body weight 104.33 kg Lakisha Spears YARD CLERK Work Phone: [facility] Work Phone: 08-14-2020 07:58-0500 BP Diastolic 70 mm[Hg] Lakisha Spears YARD CLERK Work Phone: [facility] Work Phone: Comment on above: Patient Position: Supine; Cuff Location: Right Arm; Cuff Size: Standard 08-14-2020 07:58-0500 BP Systolic 132 mm[Hg] Lakisha Spears YARD CLERK Work Phone: [facility] Work Phone: Comment on above: Patient Position: Supine; Cuff Location: Right Arm; Cuff Size: Standard 08-14-2020 07:58-0500 BSA (Body Surface Area) 2.11 m2 Lakisha Spears YARD CLERK Work Phone: [facility] Work Phone: 08-14-2020 07:58-0500 Height 165.74 cm Lakisha Spears YARD CLERK Work Phone: [facility] Work Phone: 08-14-2020 07:58-0500 Pulse (Heart Rate) 76 /min Lakisha Spears YARD CLERK Work Phone: [facility] Work Phone: Comment on above: Pattern: Regular 04-02-2020 08:20-0400 BMI (Body Mass Index) 37.98 kg/m2 Maria Luisa [facility] Work Phone: 04-02-2020 08:20-0400 Body Temperature 97.5 [degF] Maria Luisa Villegas LPN [facility] Work Phone: Comment on above: Method: Temporal 04-02-2020 08:20-0400 Body weight 104.33 kg Maria Luisa Villegas LPN [facility] Work Phone: 04-02-2020 08:20-0400 BP Diastolic 82 mm[Hg] Maria Luisa Villegas LPN [facility] Work Phone: Comment on above: Patient Position: Sitting; Cuff Location : Left Arm; Cuff Size: Standard 04-02-2020 08:20-0400 BP Systolic 118 mm[Hg] Maria Luisa Villegas LPN [facility] Work Phone: Comment on above: Patient Position: Sitting; Cuff Location : Left Arm; Cuff Size: Standard 04-02-2020 08:20-0400 BSA (Body Surface Area) 2.11 m2 Marial Uisa Bakari GABY [facility] Work Phone: 04-02-2020 08:20-0400 Height 165.74 cm Maria Luisa Bakari GRIFFIN [facility] Work Phone: 04-02-2020 08:20-0400 Pulse (Heart Rate) 86 /min Maria Luisa Bakari LPN [facility] Work Phone: Comment on above: Pattern: Regular 04-02-2020 08:20-0400 Pulse Oximetry 97 % Lakisha Spears [facility] Work Phone: Comment on above: Room air 04-02-2020 08:20-0400 Respiratory Rate 16 /min Maria Luisa Bakari GRIFFIN [facility] Work Phone: Comment on above: Pattern: Unlabored 04-02-2020 08:20-0400 SaO2% (BldA) [Mass fraction] 97 % Maria Luisa Villegas LPN [facility]; [facility] Work Phone: 02-12-2020 10:37-0400 BMI (Body Mass Index) 37.98 kg/m2 Preston Kang LPN [facility] Work Phone: 02-12-2020 10:37-0400 Body Temperature 97.9 [degF] Preston Kang LPN [facility] Work Phone: Comment on above: Method: Temporal 02-12-2020 10:37-0400 Body weight 104.33 kg Preston Kang LPN [facility] Work Phone: 02-12-2020 10:37-0400 BP Diastolic 92 mm[Hg] Preston Kang LPN [facility] Work Phone: Comment on above: Patient Position: Sitting; Cuff Location : Left Arm; Cuff Size: Standard 02-12-2020 10:37-0400 BP Systolic 152 mm[Hg] Preston Kang LPN [facility] Work Phone: Comment on above: Patient Position: Sitting; Cuff Location : Left Arm; Cuff Size: Standard 02-12-2020 10:37-0400 BSA (Body Surface Area) 2.11 m2 Preston Kang LPN [facility] Work Phone: 02-12-2020 10:37-0400 Height 165.74 cm Preston Kang LPN [facility] Work Phone: 02-12-2020 10:37-0400 Pulse (Heart Rate) 91 /min Preston Kang LPN [facility] Work Phone: Comment on above: Pattern: Regular 02-12-2020 10:37-0400 Pulse Oximetry 96 % Lakisha Spears [facility] Work Phone: Comment on above: Room air 02-12-2020 10:37-0400 Respiratory Rate 16 /min Preston Kang LPN [facility] Work Phone: Comment on above: Pattern: Unlabored 02-12-2020 10:37-0400 SaO2% (BldA) [Mass fraction] 96 % Preston Kang LPN [facility]; [facility] Work Phone: 11-05-2019 09:43-0500 BMI (Body Mass Index) 37.49 kg/m2 Preston Kagn LPN [facility] Work Phone: 11-05-2019 09:43-0500 Body Temperature 97.2 [degF] Preston Kang LPN [facility] Work Phone: Comment on above: Method: Temporal 11-05-2019 09:43-0500 Body weight 102.99 kg Preston Kang LPN [facility] Work Phone: 11-05-2019 09:43-0500 BP Diastolic 78 mm[Hg] Preston Kang LPN [facility] Work Phone: Comment on above: Patient Position: Sitting; Cuff Location : Left Arm; Cuff Size: Standard 11-05-2019 09:43-0500 BP Systolic 128 mm[Hg] Preston Kang LPN [facility] Work Phone: Comment on above: Patient Position: Sitting; Cuff Location : Left Arm; Cuff Size: Standard 11-05-2019 09:43-0500 BSA (Body Surface Area) 2.09 m2 Preston Kang LPN [facility] Work Phone: 11-05-2019 09:43-0500 Height 165.74 cm Preston Kang LPN [facility] Work Phone: 11-05-2019 09:43-0500 Pulse (Heart Rate) 81 /min Preston Kang LPN [facility] Work Phone: Comment on above: Pattern: Regular 11-05-2019 09:43-0500 Pulse Oximetry 96 % Lakisha Spears [facility] Work Phone: Comment on above: Room air 11-05-2019 09:43-0500 Respiratory Rate 16 /min Preston Kang LPN [facility] Work Phone: Comment on above: Pattern: Unlabored 11-05-2019 09:43-0500 SaO2% (BldA) [Mass fraction] 96 % Preston Kang LPN [facility]; [facility] Work Phone: 08-13-2018 14:06-0500 BMI (Body Mass Index) 35.67 kg/m2 Maria Luisa Angel [facility] Work Phone: 08-13-2018 14:06-0500 Body Temperature 97.7 [degF] Maria Luisa Angel [facility] Work Phone: Comment on above: Method: Temporal 08-13-2018 14:06-0500 Body weight 97.98 kg Maria Luisa Angel [facility] Work Phone: 08-13-2018 14:06-0500 BP Diastolic 80 mm[Hg] Maria Luisa Angel [facility] Work Phone: Comment on above: Patient Position: Sitting; Cuff Location : Left Arm; Cuff Size: Standard 08-13-2018 14:06-0500 BP Systolic 130 mm[Hg] Maria Luisa Angel [facility] Work Phone: Comment on above: Patient Position: Sitting; Cuff Location : Left Arm; Cuff Size: Standard 08-13-2018 14:06-0500 BSA (Body Surface Area) 2.05 m2 Maria Luisa Angel [facility] Work Phone: 08-13-2018 14:06-0500 Height 165.74 cm Maria Luisa Angel [facility] Work Phone: 08-13-2018 14:06-0500 Pulse (Heart Rate) 74 /min Maria Luisa Angel [facility] Work Phone: Comment on above: Pattern: Regular 08-13-2018 14:06-0500 Pulse Oximetry 99 % Lakisha Spears [facility] Work Phone: Comment on above: Room air 08-13-2018 14:06-0500 Respiratory Rate 16 /min Maria Luisa Angel [facility] Work Phone: Comment on above: Pattern: Unlabored 08-13-2018 14:06-0500 SaO2% (BldA) [Mass fraction] 99 % Maria Luisa Angel [facility]; [facility] Work Phone: 08-13-2018 14:06-0500 Weight 97.98 kg Lakisha Spears [facility] Work Phone: 08-06-2018 08:31-0500 BMI (Body Mass Index) 35.17 kg/m2 Maria Luisa Angel [facility] Work Phone: 08-06-2018 08:31-0500 Body Temperature 97.4 [degF] Maria Luisa Angel [facility] Work Phone: Comment on above: Method: Temporal 08-06-2018 08:31-0500 Body weight 96.62 kg Maria Luisa Angel [facility] Work Phone: 08-06-2018 08:31-0500 BP Diastolic 82 mm[Hg] Maria Luisa Angel [facility] Work Phone: Comment on above: Patient Position: Sitting; Cuff Location : Left Arm; Cuff Size: Standard 08-06-2018 08:31-0500 BP Systolic 132 mm[Hg] Maria Luisa Angel [facility] Work Phone: Comment on above: Patient Position: Sitting; Cuff Location : Left Arm; Cuff Size: Standard 08-06-2018 08:31-0500 BSA (Body Surface Area) 2.04 m2 Maria Luisa Angel [facility] Work Phone: 08-06-2018 08:31-0500 Height 165.74 cm Maria Luisa Angel [facility] Work Phone: 08-06-2018 08:31-0500 Pulse (Heart Rate) 84 /min Maria Luisa Angel [facility] Work Phone: Comment on above: Pattern: Regular 08-06-2018 08:31-0500 Pulse Oximetry 98 % Lakisha Spears [facility] Work Phone: Comment on above: Room air 08-06-2018 08:31-0500 Respiratory Rate 17 /min Maria Luisa Angel [facility] Work Phone: Comment on above: Pattern: Unlabored 08-06-2018 08:31-0500 SaO2% (BldA) [Mass fraction] 98 % Maria Luisa Angel [facility]; [facility] Work Phone: 08-06-2018 08:31-0500 Weight 96.62 kg Lakisha Spears [facility] Work Phone: 04-13-2018 08:09-0400 BMI (Body Mass Index) 35.17 kg/m2 Preston Kang LPN [facility] Work Phone: 04-13-2018 08:09-0400 Body Temperature 96.7 [degF] Preston Kang LPN [facility] Work Phone: 04-13-2018 08:09-0400 Body weight 96.62 kg Preston Kang LPN [facility] Work Phone: 04-13-2018 08:09-0400 BP Diastolic 78 mm[Hg] Preston Kang LPN [facility] Work Phone: Comment on above: Patient Position: Sitting; Cuff Location : Left Arm; Cuff Size: Standard 04-13-2018 08:09-0400 BP Systolic 122 mm[Hg] Preston Kang LPN [facility] Work Phone: Comment on above: Patient Position: Sitting; Cuff Location : Left Arm; Cuff Size: Standard 04-13-2018 08:09-0400 BSA (Body Surface Area) 2.04 m2 Preston Kang LPN [facility] Work Phone: 04-13-2018 08:09-0400 Height 165.74 cm Preston Kang LPN [facility] Work Phone: 04-13-2018 08:09-0400 Pulse (Heart Rate) 88 /min Preston Kang LPN [facility] Work Phone: Comment on above: Pattern: Regular 04-13-2018 08:09-0400 Pulse Oximetry 98 % Lakisha Spears [facility] Work Phone: Comment on above: Room air 04-13-2018 08:09-0400 Respiratory Rate 17 /min Preston Kang LPN [facility] Work Phone: Comment on above: Pattern: Unlabored 04-13-2018 08:09-0400 SaO2% (BldA) [Mass fraction] 98 % Preston Kang LPN [facility]; [facility] Work Phone: 04-13-2018 08:09-0400 Weight 96.62 kg Lakisha Spears [facility] Work Phone: 12-07-2017 08:55-0400 BMI (Body Mass Index) 35.17 kg/m2 Preston Kang LPN [facility] Work Phone: 12-07-2017 08:55-0400 Body Temperature 98.8 [degF] Preston Kang LPN [facility] Work Phone: 12-07-2017 08:55-0400 Body weight 96.62 kg Preston Kang LPN [facility] Work Phone: 12-07-2017 08:55-0400 BP Diastolic 86 mm[Hg] Preston Kang LPN [facility] Work Phone: Comment on above: Patient Position: Sitting; Cuff Location : Left Arm; Cuff Size: Standard 12-07-2017 08:55-0400 BP Systolic 124 mm[Hg] Preston Kang LPN [facility] Work Phone: Comment on above: Patient Position: Sitting; Cuff Location : Left Arm; Cuff Size: Standard 12-07-2017 08:55-0400 BSA (Body Surface Area) 2.04 m2 Preston Kang LPN [facility] Work Phone: 12-07-2017 08:55-0400 Height 165.74 cm Preston Kang LPN [facility] Work Phone: 12-07-2017 08:55-0400 Pulse (Heart Rate) 84 /min Preston Kang GABY [facility] Work Phone: Comment on above: Pattern: Regular 12-07-2017 08:55-0400 Pulse Oximetry 98 % Lakisha Changbernadine [facility] Work Phone: Comment on above: Room air 12-07-2017 08:55-0400 Respiratory Rate 18 /min Preston Jorge Luis SUEDING MACHINE OPERATOR [facility] Work Phone: Comment on above: Pattern: Unlabored 12-07-2017 08:55-0400 SaO2% (BldA) [Mass fraction] 98 % Preston Jorge Luis GRIFFIN [facility]; [facility] Work Phone: 12-07-2017 08:55-0400 Weight 96.62 kg Lakisha Changbernadine [facility] Work Phone: 07-25-2017 10:16-0500 Body Temperature 97.6 [degF] Lakisha Spears YARD CLERK Work Phone: [facility] Work Phone: 07-25-2017 10:16-0500 BP Diastolic 84 mm[Hg] Lakisha Spears YARD CLERK Work Phone: [facility] Work Phone: Comment on above: Patient Position: Supine; Cuff Location: Right Arm; Cuff Size: Standard 07-25-2017 10:16-0500 BP Systolic 126 mm[Hg] Lakisha Spears YARD CLERK Work Phone: [facility] Work Phone: Comment on above: Patient Position: Supine; Cuff Location: Right Arm; Cuff Size: Standard 07-25-2017 10:16-0500 Pulse (Heart Rate) 98 /min Lakisha Spears YARD CLERK Work Phone: [facility] Work Phone: Comment on above: Pattern: Regular 07-25-2017 10:16-0500 Respiratory Rate 16 /min Lakisha Spears YARD CLERK Work Phone: [facility] Internal Medicine Work Phone: 07-25-2017 09:27-0500 BMI (Body Mass Index) 35.17 kg/m2 Krista Castillo SUEDING MACHINE OPERATOR [facility] Internal Medicine Work Phone: 07-25-2017 09:27-0500 Body weight 96.62 kg Krista Castillo SUEDING MACHINE OPERATOR [facility] Medicine Work Phone: 07-25-2017 09:27-0500 BSA (Body Surface Area) 2.04 m2 Krista Castillo SUEDING MACHINE OPERATOR [facility] Work Phone: 07-25-2017 09:27-0500 Height 165.74 cm Krista Castillo SUEDING MACHINE OPERATOR [facility] Medicine Work Phone: 07-25-2017 09:27-0500 Weight 96.62 kg Lakisha Spears [facility] Work Phone: 09-13-2016 08:14-0500 BMI (Body Mass Index) 34.68 kg/m2 Aaliyah Manasa [facility] Internal Medicine Work Phone: 09-13-2016 08:14-0500 Body Temperature 97.5 [degF] Aaliyah Goel [facility] Work Phone: Comment on above: Method: Temporal 09-13-2016 08:14-0500 Body weight 95.26 kg Aaliyah Goel [facility] Work Phone: 09-13-2016 08:14-0500 BP Diastolic 86 mm[Hg] Aaliyah Goel [facility] Work Phone: Comment on above: Patient Position: Sitting; Cuff Location : Left Arm; Cuff Size: Large 09-13-2016 08:14-0500 BP Systolic 138 mm[Hg] Aaliyah Goel [facility] Work Phone: Comment on above: Patient Position: Sitting; Cuff Location : Left Arm; Cuff Size: Large 09-13-2016 08:14-0500 BSA (Body Surface Area) 2.03 m2 Aaliyah Goel [facility] Work Phone: 09-13-2016 08:14-0500 Height 165.74 cm Aaliyah Goel [facility] Work Phone: 09-13-2016 08:14-0500 Pulse (Heart Rate) 88 /min Aaliyah Goel [facility] Work Phone: Comment on above: Pattern: Regular 09-13-2016 08:14-0500 Pulse Oximetry 98 % Lakisha Spears [facility] Work Phone: Comment on above: Room air 09-13-2016 08:14-0500 Respiratory Rate 16 /min Aaliyah Goel [facility] Work Phone: Comment on above: Pattern: Unlabored 09-13-2016 08:14-0500 SaO2% (BldA) [Mass fraction] 98 % Aaliyah Goel [facility]; [facility] Work Phone: 09-13-2016 08:14-0500 Weight 95.26 kg Lakisha Spears [facility] Work Phone: 06-27-2016 11:18-0400 BMI (Body Mass Index) 34.37 kg/m2 Krista Slarb SUEDING MACHINE OPERATOR [facility] Work Phone: 06-27-2016 11:18-0400 Body Temperature 97.5 [degF] Krista Slarb SUEDING MACHINE OPERATOR [facility] Work Phone: 06-27-2016 11:18-0400 Body weight 94.41 kg Krista Slarb SUEDING MACHINE OPERATOR [facility] Work Phone: 06-27-2016 11:18-0400 BP Diastolic 84 mm[Hg] Krista Slarb SUEDING MACHINE OPERATOR [facility] Work Phone: Comment on above: Patient Position: Sitting; Cuff Location : Left Arm; Cuff Size: Standard 06-27-2016 11:18-0400 BP Systolic 124 mm[Hg] Krista Slarb SUEDING MACHINE OPERATOR [facility] Work Phone: Comment on above: Patient Position: Sitting; Cuff Location : Left Arm; Cuff Size: Standard 06-27-2016 11:18-0400 BSA (Body Surface Area) 2.02 m2 Krista Castillo LPN [facility] Work Phone: 06-27-2016 11:18-0400 Height 165.74 cm Krista Cleaningrb SUEDING MACHINE OPERATOR [facility] Work Phone: 06-27-2016 11:18-0400 Pulse (Heart Rate) 73 /min Krista Castillo SUEDING MACHINE OPERATOR [facility] Work Phone: Comment on above: Pattern: Regular 06-27-2016 11:18-0400 Pulse Oximetry 97 % Lakisha Spears [facility] Work Phone: Comment on above: Room air 06-27-2016 11:18-0400 Respiratory Rate 16 /min Krista Cleaningrb SUEDING MACHINE OPERATOR [facility] Work Phone: Comment on above: Pattern: Unlabored 06-27-2016 11:18-0400 SaO2% (BldA) [Mass fraction] 97 % Krista Slarb SUEDING MACHINE OPERATOR [facility]; [facility] Work Phone: 06-27-2016 11:18-0400 Weight 94.41 kg Lakisha Spears [facility] Work Phone: 06-14-2016 14:08-0400 BMI (Body Mass Index) 34.37 kg/m2 Krista Blackrb SUEDING MACHINE OPERATOR [facility] Work Phone: 06-14-2016 14:08-0400 Body Temperature 97.5 [degF] Krista Slarb SUEDING MACHINE OPERATOR [facility] Work Phone: 06-14-2016 14:08-0400 Body weight 94.41 kg Krista Slarb SUEDING MACHINE OPERATOR [facility] Work Phone: 06-14-2016 14:08-0400 BP Diastolic 82 mm[Hg] Krista Slarb SUEDING MACHINE OPERATOR [facility] Work Phone: Comment on above: Patient Position: Sitting; Cuff Location : Left Arm; Cuff Size: Standard 06-14-2016 14:08-0400 BP Systolic 124 mm[Hg] Krista Slarb SUEDING MACHINE OPERATOR [facility] Work Phone: Comment on above: Patient Position: Sitting; Cuff Location : Left Arm; Cuff Size: Standard 06-14-2016 14:08-0400 BSA (Body Surface Area) 2.02 m2 Krista Castillo LPN [facility] Work Phone: 06-14-2016 14:08-0400 Height 165.74 cm Krista Cleaningrb SUEDING MACHINE OPERATOR [facility] Work Phone: 06-14-2016 14:08-0400 Pulse (Heart Rate) 70 /min Krista Cleaningrb SUEDING MACHINE OPERATOR [facility] Work Phone: Comment on above: Pattern: Regular 06-14-2016 14:08-0400 Pulse Oximetry 96 % Lakisha Spears [facility] Work Phone: Comment on above: Room air 06-14-2016 14:08-0400 Respiratory Rate 17 /min Krista Cleaningrb SUEDING MACHINE OPERATOR [facility] Work Phone: Comment on above: Pattern: Unlabored 06-14-2016 14:08-0400 SaO2% (BldA) [Mass fraction] 96 % Krista Cleaningrb SUEDING MACHINE OPERATOR [facility]; [facility] Work Phone: 06-14-2016 14:08-0400 Weight 94.41 kg Lakisha Spears [facility] Work Phone: 06-13-2016 10:06-0400 BMI (Body Mass Index) 34.37 kg/m2 Krista Blackrb SUEDING MACHINE OPERATOR [facility] Work Phone: 06-13-2016 10:06-0400 Body Temperature 97.8 [degF] Krista Blackrb SUEDING MACHINE OPERATOR [facility] Work Phone: 06-13-2016 10:06-0400 Body weight 94.41 kg Krista Blackrb SUEDING MACHINE OPERATOR [facility] Work Phone: 06-13-2016 10:06-0400 BP Diastolic 82 mm[Hg] Krista Slarb SUEDING MACHINE OPERATOR [facility] Work Phone: Comment on above: Patient Position: Sitting; Cuff Location : Left Arm; Cuff Size: Standard 06-13-2016 10:06-0400 BP Systolic 124 mm[Hg] Krista Blackrb SUEDING MACHINE OPERATOR [facility] Work Phone: Comment on above: Patient Position: Sitting; Cuff Location : Left Arm; Cuff Size: Standard 06-13-2016 10:06-0400 BSA (Body Surface Area) 2.02 m2 Krista Slarb SUEDING MACHINE OPERATOR [facility] Work Phone: 06-13-2016 10:06-0400 Height 165.74 cm Krista Slarb SUEDING MACHINE OPERATOR [facility] Work Phone: 06-13-2016 10:06-0400 Pulse (Heart Rate) 77 /min Krista Blackrb SUEDING MACHINE OPERATOR [facility] Work Phone: Comment on above: Pattern: Regular 06-13-2016 10:06-0400 Pulse Oximetry 98 % Lakisha Spears [facility] Work Phone: Comment on above: Room air 06-13-2016 10:06-0400 Respiratory Rate 16 /min Krista Blackrb SUEDING MACHINE OPERATOR [facility] Work Phone: Comment on above: Pattern: Unlabored 06-13-2016 10:06-0400 SaO2% (BldA) [Mass fraction] 98 % Krista Slarb SUEDING MACHINE OPERATOR [facility]; [facility] Work Phone: 06-13-2016 10:06-0400 Weight 94.41 kg Lakisha Spears [facility] Work Phone: 12-11-2015 08:24-0400 BMI (Body Mass Index) 34.37 kg/m2 Krista Slarb SUEDING MACHINE OPERATOR [facility] Work Phone: 12-11-2015 08:24-0400 Body Temperature 97.3 [degF] Krista Slarb SUEDING MACHINE OPERATOR [facility] Work Phone: 12-11-2015 08:24-0400 Body weight 94.41 kg Krista Slarb SUEDING MACHINE OPERATOR [facility] Work Phone: 12-11-2015 08:24-0400 BP Diastolic 82 mm[Hg] Krista Slarb SUEDING MACHINE OPERATOR [facility] Work Phone: Comment on above: Patient Position: Sitting; Cuff Location : Left Arm; Cuff Size: Standard 12-11-2015 08:24-0400 BP Systolic 118 mm[Hg] Krista Castillo LPN [facility] Work Phone: Comment on above: Patient Position: Sitting; Cuff Location : Left Arm; Cuff Size: Standard 12-11-2015 08:24-0400 BSA (Body Surface Area) 2.02 m2 Krista Castillo LPN [facility] Work Phone: 12-11-2015 08:24-0400 Height 165.74 cm Krista Castillo LPN [facility] Work Phone: 12-11-2015 08:24-0400 Pulse (Heart Rate) 79 /min Krista Castillo LPN [facility] Work Phone: Comment on above: Pattern: Regular 12-11-2015 08:24-0400 Pulse Oximetry 97 % Lakisha Spears [facility] Work Phone: Comment on above: Room air 12-11-2015 08:24-0400 Respiratory Rate 18 /min Krista Castillo LPN [facility] Work Phone: Comment on above: Pattern: Unlabored 12-11-2015 08:24-0400 SaO2% (BldA) [Mass fraction] 97 % Krista Castillo SUEDING MACHINE OPERATOR [facility]; [facility] Work Phone: 12-11-2015 08:24-0400 Weight 94.41 kg Lakisha Spears [facility] Work Phone: 11-23-2015 09:00-0400 BMI (Body Mass Index) 34.37 kg/m2 Krista Castillo SUEDING MACHINE OPERATOR [facility] Work Phone: 11-23-2015 09:00-0400 Body Temperature 97.6 [degF] Krista Castillo SUEDING MACHINE OPERATOR [facility] Work Phone: 11-23-2015 09:00-0400 Body weight 94.41 kg Krista Castillo SUEDING MACHINE OPERATOR [facility] Work Phone: 11-23-2015 09:00-0400 BP Diastolic 84 mm[Hg] Krista Slarb SUEDING MACHINE OPERATOR [facility] Work Phone: Comment on above: Patient Position: Sitting; Cuff Location : Left Arm; Cuff Size: Standard 11-23-2015 09:00-0400 BP Systolic 128 mm[Hg] Krista Slarb SUEDING MACHINE OPERATOR [facility] Work Phone: Comment on above: Patient Position: Sitting; Cuff Location : Left Arm; Cuff Size: Standard 11-23-2015 09:00-0400 BSA (Body Surface Area) 2.02 m2 Krista Slarb SUEDING MACHINE OPERATOR [facility] Work Phone: 11-23-2015 09:00-0400 Height 165.74 cm Krista Slarb SUEDING MACHINE OPERATOR [facility] Work Phone: 11-23-2015 09:00-0400 Pulse (Heart Rate) 112 /min Krista Blackrb SUEDING MACHINE OPERATOR [facility] Work Phone: Comment on above: Pattern: Regular 11-23-2015 09:00-0400 Pulse Oximetry 96 % Lakisha Spears [facility] Work Phone: Comment on above: Room air 11-23-2015 09:00-0400 Respiratory Rate 16 /min Krista Blackrb SUEDING MACHINE OPERATOR [facility] Work Phone: Comment on above: Pattern: Unlabored 11-23-2015 09:00-0400 SaO2% (BldA) [Mass fraction] 96 % Krista Blackrb SUEDING MACHINE OPERATOR [facility]; [facility] Work Phone: 11-23-2015 09:00-0400 Weight 94.41 kg Lakisha Spears [facility] Work Phone: 10-26-2015 09:44-0500 BMI (Body Mass Index) 34.88 kg/m2 Krista Slarb SUEDING MACHINE OPERATOR [facility] Work Phone: 10-26-2015 09:44-0500 Body Temperature 96.4 [degF] Krista Slarb SUEDING MACHINE OPERATOR [facility] Work Phone: 10-26-2015 09:44-0500 Body weight 95.82 kg Krista Slarb SUEDING MACHINE OPERATOR [facility] Work Phone: 10-26-2015 09:44-0500 BP Diastolic 82 mm[Hg] Krista Castillo SUEDING MACHINE OPERATOR [facility] Work Phone: Comment on above: Patient Position: Sitting; Cuff Location : Left Arm; Cuff Size: Standard 10-26-2015 09:44-0500 BP Systolic 132 mm[Hg] Krista Castillo SUEDING MACHINE OPERATOR [facility] Work Phone: Comment on above: Patient Position: Sitting; Cuff Location : Left Arm; Cuff Size: Standard 10-26-2015 09:44-0500 BSA (Body Surface Area) 2.03 m2 Krista Castillo SUEDING MACHINE OPERATOR [facility] Work Phone: 10-26-2015 09:44-0500 Height 165.74 cm Kristabernadine Castillo SUEDING MACHINE OPERATOR [facility] Work Phone: 10-26-2015 09:44-0500 Pulse (Heart Rate) 97 /min Kristabernadine Castillo GABY [facility] Work Phone: Comment on above: Pattern: Regular 10-26-2015 09:44-0500 Pulse Oximetry 18 % Lakisha Spears [facility] Work Phone: Comment on above: Room air 10-26-2015 09:44-0500 Respiratory Rate 18 /min Kristabernadine Castillo SUEDING MACHINE OPERATOR [facility] Work Phone: Comment on above: Pattern: Unlabored 10-26-2015 09:44-0500 SaO2% (BldA) [Mass fraction] 18 % Krista Jonathan GRIFFIN [facility]; [facility] Work Phone: 10-26-2015 09:44-0500 Weight 95.82 kg Lakisha Spears [facility] Work Phone: 09-01-2014 10:50-0500 BMI (Body Mass Index) 33.03 kg/m2 Elizabet Johnston RN [facility] Work Phone: 09-01-2014 10:50-0500 Body Temperature 97.6 [degF] Elizabet Johnston RN [facility] Work Phone: Comment on above: Method: Temporal 09-01-2014 10:50-0500 Body weight 90.72 kg Elizabet Johnston RN [facility] Work Phone: 09-01-2014 10:50-0500 BP Diastolic 78 mm[Hg] Elizabet Johnston RN [facility] Work Phone: Comment on above: Patient Position: Sitting; Cuff Location : Left Arm; Cuff Size: Standard 09-01-2014 10:50-0500 BP Systolic 128 mm[Hg] Elizabet Johnston RN [facility] Work Phone: Comment on above: Patient Position: Sitting; Cuff Location : Left Arm; Cuff Size: Standard 09-01-2014 10:50-0500 BSA (Body Surface Area) 1.98 m2 Elizabet Johnston RN [facility] Work Phone: 09-01-2014 10:50-0500 Height 165.74 cm Elizabet Johnston RN [facility] Work Phone: 09-01-2014 10:50-0500 Pulse (Heart Rate) 72 /min Elizabet Johnston RN [facility] Work Phone: Comment on above: Pattern: Regular 09-01-2014 10:50-0500 Pulse Oximetry 97 % Lakisha Spears [facility] Work Phone: Comment on above: Room air 09-01-2014 10:50-0500 Respiratory Rate 16 /min Elizabet Johnston RN [facility] Work Phone: Comment on above: Pattern: Unlabored 09-01-2014 10:50-0500 SaO2% (BldA) [Mass fraction] 97 % Elizabet Johnston RN [facility]; [facility] Work Phone: 09-01-2014 10:50-0500 Weight 90.72 kg Lakisha Spears [facility] Work Phone: 01-07-2014 07:50-0400 BMI (Body Mass Index) 33.03 kg/m2 Elizabet Johnston RN [facility] Work Phone: 01-07-2014 07:50-0400 Body Temperature 97.2 [degF] Elizabet Johnston RN [facility] Work Phone: Comment on above: Method: Temporal 01-07-2014 07:50-0400 Body weight 90.72 kg Elizabet Johnston RN [facility] Work Phone: 01-07-2014 07:50-0400 BP Diastolic 78 mm[Hg] Elizabet Johnston RN [facility] Work Phone: Comment on above: Patient Position: Sitting; Cuff Location : Left Arm; Cuff Size: Standard 01-07-2014 07:50-0400 BP Systolic 128 mm[Hg] Elizabet Johnston RN [facility] Work Phone: Comment on above: Patient Position: Sitting; Cuff Location : Left Arm; Cuff Size: Standard 01-07-2014 07:50-0400 BSA (Body Surface Area) 1.98 m2 Elizabet Jonhston RN [facility] Work Phone: 01-07-2014 07:50-0400 Height 165.74 cm Elizabet Johnston RN [facility] Work Phone: 01-07-2014 07:50-0400 Pulse (Heart Rate) 74 /min Elizabet Johnston RN [facility] Work Phone: Comment on above: Pattern: Regular 01-07-2014 07:50-0400 Pulse Oximetry 95 % Lakisha Changbernadine [facility] Work Phone: Comment on above: Room air 01-07-2014 07:50-0400 Respiratory Rate 16 /min Elizabet Johnston RN [facility] Work Phone: Comment on above: Pattern: Unlabored 01-07-2014 07:50-0400 SaO2% (BldA) [Mass fraction] 95 % Elizabet Johnston RN [facility]; [facility] Work Phone: 01-07-2014 07:50-0400 Weight 90.72 kg Lakisha Spears [facility] Work Phone: 08-23-2013 09:41-0500 BMI (Body Mass Index) 34.84 kg/m2 Katia Saunders LPN [facility] Work Phone: 08-23-2013 09:41-0500 Body Temperature 97.8 [degF] Katia Saunders LPN [facility] Work Phone: Comment on above: Method: Oral 08-23-2013 09:41-0500 Body weight 95.71 kg Katia Saunders LPN [facility] Work Phone: 08-23-2013 09:41-0500 BP Diastolic 82 mm[Hg] Katia Saunders LPN [facility] Work Phone: Comment on above: Patient Position: Sitting; Cuff Location : Left Arm; Cuff Size: Standard 08-23-2013 09:41-0500 BP Systolic 142 mm[Hg] Katia Saunders LPN [facility] Work Phone: Comment on above: Patient Position: Sitting; Cuff Location : Left Arm; Cuff Size: Standard 08-23-2013 09:41-0500 BSA (Body Surface Area) 2.03 m2 Katia Saunders LPN [facility] Work Phone: 08-23-2013 09:41-0500 Height 165.74 cm Katia Saunders LPN [facility] Work Phone: 08-23-2013 09:41-0500 Pulse (Heart Rate) 88 /min Katia Saunders LPN [facility] Work Phone: Comment on above: Pattern: Regular 08-23-2013 09:41-0500 Pulse Oximetry 98 % Lakisha Spears [facility] Work Phone: Comment on above: Room air 08-23-2013 09:41-0500 Respiratory Rate 18 /min Katia Saunders LPN [facility] Work Phone: 08-23-2013 09:41-0500 SaO2% (BldA) [Mass fraction] 98 % Katia Saunders LPN [facility]; [facility] Work Phone: 08-23-2013 09:41-0500 Weight 95.71 kg Lakisha Spears [facility] Work Phone: 06-24-2013 13:34-0400 BMI (Body Mass Index) 34.84 kg/m2 MOIRA Crowell LPN [facility] Work Phone: 06-24-2013 13:34-0400 Body Temperature 97.9 [degF] MOIRA Crowell LPN [facility] Work Phone: Comment on above: Method: Oral 06-24-2013 13:34-0400 Body weight 95.71 kg MOIRA Crowell LPN [facility] Work Phone: 06-24-2013 13:34-0400 BP Diastolic 78 mm[Hg] MOIRA Crowell SUEDING MACHINE OPERATOR [facility] Work Phone: Comment on above: Patient Position: Sitting; Cuff Location : Left Arm; Cuff Size: Standard 06-24-2013 13:34-0400 BP Systolic 118 mm[Hg] MOIRA Crowell LPN [facility] Work Phone: Comment on above: Patient Position: Sitting; Cuff Location : Left Arm; Cuff Size: Standard 06-24-2013 13:34-0400 BSA (Body Surface Area) 2.03 m2 MOIRA Crowell LPN [facility] Work Phone: 06-24-2013 13:34-0400 Height 165.74 cm MOIRA Crowell LPN [facility] Work Phone: 06-24-2013 13:34-0400 Pulse (Heart Rate) 60 /min MOIRA Crowell SUEDING MACHINE OPERATOR [facility] Work Phone: Comment on above: Pattern: Regular 06-24-2013 13:34-0400 Respiratory Rate 18 /min MOIRA Crowell LPN [facility] Work Phone: Comment on above: Pattern: Unlabored 06-24-2013 13:34-0400 Weight 95.71 kg Lakisha Spears [facility] Work Phone: 10-26-2012 08:50-0500 BMI (Body Mass Index) 33.06 kg/m2 Elizabet Johnston RN [facility] Work Phone: 10-26-2012 08:50-0500 Body Temperature 98.2 [degF] Elizabet Johnston RN [facility] Work Phone: Comment on above: Method: Temporal 10-26-2012 08:50-0500 Body weight 90.81 kg Elizabet Johnston RN [facility] Work Phone: 10-26-2012 08:50-0500 BP Diastolic 76 mm[Hg] Elizabet Johnston RN [facility] Work Phone: Comment on above: Patient Position: Sitting; Cuff Location : Left Arm; Cuff Size: Standard 10-26-2012 08:50-0500 BP Systolic 132 mm[Hg] Elizabet Johnston RN [facility] Work Phone: Comment on above: Patient Position: Sitting; Cuff Location : Left Arm; Cuff Size: Standard 10-26-2012 08:50-0500 BSA (Body Surface Area) 1.98 m2 Elizabet Johnston RN [facility] Work Phone: 10-26-2012 08:50-0500 Height 165.74 cm Elizabet Johnston RN [facility] Work Phone: 10-26-2012 08:50-0500 Pulse (Heart Rate) 72 /min Elizabet Johnston RN [facility] Work Phone: Comment on above: Pattern: Regular 10-26-2012 08:50-0500 Respiratory Rate 16 /min Elizabet Johnston RN [facility] Work Phone: Comment on above: Pattern: Unlabored 10-26-2012 08:50-0500 Weight 90.81 kg Lakisha Spears [facility] Work Phone: 09-21-2012 08:46-0500 BMI (Body Mass Index) 33.06 kg/m2 Jolene Puckett LPN [facility] Work Phone: 09-21-2012 08:46-0500 Body Temperature 98.5 [degF] Jolene Puckett LPN [facility] Work Phone: 09-21-2012 08:46-0500 Body weight 90.81 kg Jolene Puckett LPN [facility] Work Phone: 09-21-2012 08:46-0500 BSA (Body Surface Area) 1.98 m2 Jolene Mariscalkvng GRIFFIN [facility] Work Phone: 09-21-2012 08:46-0500 Height 165.74 cm Jolene Mariscalkvng GRIFFIN [facility] Work Phone: 09-21-2012 08:46-0500 Weight 90.81 kg Lakisha Spears [facility] Work Phone: 05-07-2012 10:28-0400 BMI (Body Mass Index) 33.06 kg/m2 Bharti Villegas RN [facility] Work Phone: 05-07-2012 10:28-0400 Body weight 90.81 kg Bharti Villegas RN [facility] Work Phone: 05-07-2012 10:28-0400 BP Diastolic 84 mm[Hg] Bharti Villegas RN [facility] Work Phone: Comment on above: Patient Position: Sitting; Cuff Location : Left Arm; Cuff Size: Large 05-07-2012 10:28-0400 BP Systolic 132 mm[Hg] Bharti Villegas RN [facility] Work Phone: Comment on above: Patient Position: Sitting; Cuff Location : Left Arm; Cuff Size: Large 05-07-2012 10:28-0400 BSA (Body Surface Area) 1.98 m2 Bharti Villegas RN [facility] Work Phone: 05-07-2012 10:28-0400 Height 165.74 cm Bharti Villegas RN [facility] Work Phone: 05-07-2012 10:28-0400 Pulse (Heart Rate) 80 /min Bharti Villegas RN [facility] Work Phone: Comment on above: Pattern: Regular 05-07-2012 10:28-0400 Respiratory Rate 16 /min Bharti Villegas RN [facility] Work Phone: Comment on above: Pattern: Unlabored 05-07-2012 10:28-0400 Weight 90.81 kg Lakisha Spears [facility] Work Phone: 05-03-2012 12:40-0400 BMI (Body Mass Index) 33.06 kg/m2 Bharti Villegas RN [facility] Work Phone: 05-03-2012 12:40-0400 Body weight 90.81 kg Bharti Villegas RN [facility] Work Phone: 05-03-2012 12:40-0400 BP Diastolic 98 mm[Hg] Bharti Villegas RN [facility] Work Phone: Comment on above: Patient Position: Sitting; Cuff Location : Left Arm; Cuff Size: Large 05-03-2012 12:40-0400 BP Systolic 160 mm[Hg] Bharti Villegas RN [facility] Work Phone: Comment on above: Patient Position: Sitting; Cuff Location : Left Arm; Cuff Size: Large 05-03-2012 12:40-0400 BSA (Body Surface Area) 1.98 m2 Bharti Villegas RN [facility] Work Phone: 05-03-2012 12:40-0400 Height 165.74 cm Bharti Villegas RN [facility] Work Phone: 05-03-2012 12:40-0400 Pulse (Heart Rate) 80 /min Bharti Villegas RN [facility] Work Phone: Comment on above: Pattern: Regular 05-03-2012 12:40-0400 Respiratory Rate 20 /min Bharti Villegas RN [facility] Work Phone: Comment on above: Pattern: Unlabored 05-03-2012 12:40-0400 Weight 90.81 kg Lakisha Spears [facility] Work Phone: 04-16-2012 14:09-0400 BMI (Body Mass Index) 33.26 kg/m2 Bharti Villegas RN [facility] Work Phone: 04-16-2012 14:09-0400 Body weight 91.37 kg Bharti Villegas RN [facility] Work Phone: 04-16-2012 14:09-0400 BP Diastolic 82 mm[Hg] Bharti Villegas RN [facility] Work Phone: Comment on above: Patient Position: Sitting; Cuff Location : Left Arm; Cuff Size: Large 04-16-2012 14:09-0400 BP Systolic 124 mm[Hg] Bharti Villegas RN [facility] Work Phone: Comment on above: Patient Position: Sitting; Cuff Location : Left Arm; Cuff Size: Large 04-16-2012 14:09-0400 BSA (Body Surface Area) 1.99 m2 Bharti Villegas RN [facility] Work Phone: 04-16-2012 14:09-0400 Height 165.74 cm Bharti Villegas RN [facility] Work Phone: 04-16-2012 14:09-0400 Pulse (Heart Rate) 88 /min Bharti Villegas RN [facility] Work Phone: Comment on above: Pattern: Regular 04-16-2012 14:09-0400 Respiratory Rate 20 /min Bharti Villegas RN [facility] Work Phone: Comment on above: Pattern: Unlabored 04-16-2012 14:09-0400 Weight 91.37 kg Lakisha Spears [facility] Work Phone: 03-26-2012 08:50-0400 BMI (Body Mass Index) 33.04 kg/m2 Bharti Villegas RN [facility] Work Phone: 03-26-2012 08:50-0400 Body weight 90.75 kg Bharti Villegas RN [facility] Work Phone: 03-26-2012 08:50-0400 BP Diastolic 80 mm[Hg] Bharti Villegas RN [facility] Work Phone: Comment on above: Patient Position: Sitting; Cuff Location : Left Arm; Cuff Size: Large 03-26-2012 08:50-0400 BP Systolic 138 mm[Hg] Bharti Villegas RN [facility] Work Phone: Comment on above: Patient Position: Sitting; Cuff Location : Left Arm; Cuff Size: Large 03-26-2012 08:50-0400 BSA (Body Surface Area) 1.98 m2 Bharti Villegas RN [facility] Work Phone: 03-26-2012 08:50-0400 Height 165.74 cm Bharti Villegas RN [facility] Work Phone: 03-26-2012 08:50-0400 Pulse (Heart Rate) 64 /min Bharti Villegas RN [facility] Work Phone: Comment on above: Pattern: Regular 03-26-2012 08:50-0400 Respiratory Rate 20 /min Bharti Villegas RN [facility] Work Phone: Comment on above: Pattern: Unlabored 03-26-2012 08:50-0400 Weight 90.75 kg Lakisha Spears [facility] Work Phone: 03-15-2012 08:32-0400 BMI (Body Mass Index) 33.04 kg/m2 Elizabet Johnston RN [facility] Work Phone: Comment on above: states, I didnt take my bp med this am 03-15-2012 08:32-0400 Body Temperature 98.9 [degF] Elizabet Johnston RN [facility] Work Phone: Comment on above: Method: Oral states, I didnt take my bp med this am 03-15-2012 08:32-0400 Body weight 90.75 kg Elizabet Johnston RN [facility] Work Phone: Comment on above: states, I didnt take my bp med this am 03-15-2012 08:32-0400 BP Diastolic 62 mm[Hg] Elizabet Johnston RN [facility] Work Phone: Comment on above: Patient Position: Sitting; Cuff Location : Left Arm; Cuff Size: Standard states, I didnt take my bp med this am 03-15-2012 08:32-0400 BP Systolic 108 mm[Hg] Elizabet Johnston RN [facility] Work Phone: Comment on above: Patient Position: Sitting; Cuff Location : Left Arm; Cuff Size: Standard states, I didnt take my bp med this am 03-15-2012 08:32-0400 BSA (Body Surface Area) 1.98 m2 Elizabet Johnston RN [facility] Work Phone: Comment on above: states, I didnt take my bp med this am 03-15-2012 08:32-0400 Height 165.74 cm Elizabet Johnston RN [facility] Work Phone: Comment on above: states, I didnt take my bp med this am 03-15-2012 08:32-0400 Pulse (Heart Rate) 110 /min Elizabet Johnston RN [facility] Work Phone: Comment on above: Pattern: Regular states, I didnt take my bp med this am 03-15-2012 08:32-0400 Pulse Oximetry 96 % Lakisha Whit [facility] Work Phone: Comment on above: Room air states, I didnt take my bp med this am 03-15-2012 08:32-0400 SaO2% (BldA) [Mass fraction] 96 % Elizabet Johnston RN [facility]; [facility] Work Phone: 03-15-2012 08:32-0400 Weight 90.75 kg Lakisha Spears [facility] Work Phone: Comment on above: states, I didnt take my bp med this am 12-22-2011 08:32-0400 BMI (Body Mass Index) 33.04 kg/m2 MOIRA Crowell LPN [facility] Work Phone: 12-22-2011 08:32-0400 Body Temperature 97.6 [degF] MOIRA Crowell LPN [facility] Work Phone: Comment on above: Method: Oral 12-22-2011 08:32-0400 Body weight 90.75 kg MOIRA Crowell LPN [facility] Work Phone: 12-22-2011 08:32-0400 BP Diastolic 78 mm[Hg] MOIRA Crowell LPN [facility] Work Phone: Comment on above: Patient Position: Sitting; Cuff Location : Left Arm; Cuff Size: Large 12-22-2011 08:32-0400 BP Systolic 122 mm[Hg] MOIRA Crowell LPN [facility] Work Phone: Comment on above: Patient Position: Sitting; Cuff Location : Left Arm; Cuff Size: Large 12-22-2011 08:32-0400 BSA (Body Surface Area) 1.98 m2 MOIRA Crowell LPN [facility] Work Phone: 12-22-2011 08:32-0400 Height 165.74 cm MOIRA Crowell LPN [facility] Work Phone: 12-22-2011 08:32-0400 Pulse (Heart Rate) 76 /min MOIRA Crowell SUEDING MACHINE OPERATOR [facility] Work Phone: Comment on above: Pattern: Regular 12-22-2011 08:32-0400 Respiratory Rate 20 /min MOIRA Crowell SUEDING MACHINE OPERATOR [facility] Work Phone: Comment on above: Pattern: Unlabored 12-22-2011 08:32-0400 Weight 90.75 kg Lakisha Spears [facility] Work Phone: 08-19-2011 08:26-0500 BMI (Body Mass Index) 32.7 kg/m2 Kelsey Valencia [facility] Work Phone: 08-19-2011 08:26-0500 Body weight 89.81 kg Kelsey Valencia SUEDING MACHINE OPERATOR [facility] Work Phone: 08-19-2011 08:26-0500 BSA (Body Surface Area) 1.98 m2 Kelsey Valencia SUEDING MACHINE OPERATOR [facility] Work Phone: 08-19-2011 08:26-0500 Height 165.74 cm Kelsey Valencia [facility] Work Phone: 08-19-2011 08:26-0500 Pulse (Heart Rate) 68 /min Kelsey Valencia SUEDING MACHINE OPERATOR [facility] Work Phone: Comment on above: Pattern: Regular 08-19-2011 08:26-0500 Respiratory Rate 16 /min Kelsey Valencia [facility] Work Phone: Comment on above: Pattern: Unlabored 08-19-2011 08:26-0500 Weight 89.81 kg Lakisha Spears [facility] Work Phone: 08-12-2011 10:57-0500 BMI (Body Mass Index) 32.7 kg/m2 Elizabet Johnston RN [facility] Work Phone: 08-12-2011 10:57-0500 Body Temperature 97.2 [degF] Elizabet Johnston RN [facility] Work Phone: Comment on above: Method: Oral 08-12-2011 10:57-0500 Body weight 89.81 kg Elizabet Johnston RN [facility] Work Phone: 08-12-2011 10:57-0500 BP Diastolic 74 mm[Hg] Elizabet Johnston RN [facility] Work Phone: Comment on above: Patient Position: Sitting; Cuff Location : Left Arm; Cuff Size: Standard 08-12-2011 10:57-0500 BP Systolic 122 mm[Hg] Eliazbet Johnston RN [facility] Work Phone: Comment on above: Patient Position: Sitting; Cuff Location : Left Arm; Cuff Size: Standard 08-12-2011 10:57-0500 BSA (Body Surface Area) 1.98 m2 Elizabet Johnston RN [facility] Work Phone: 08-12-2011 10:57-0500 Height 165.74 cm Elizabet Johnston RN [facility] Work Phone: 08-12-2011 10:57-0500 Pulse (Heart Rate) 64 /min Elizabet Johnston RN [facility] Work Phone: Comment on above: Pattern: Regular 08-12-2011 10:57-0500 Respiratory Rate 16 /min Elizabet Johnston RN [facility] Work Phone: Comment on above: Pattern: Unlabored 08-12-2011 10:57-0500 Weight 89.81 kg Lakisha Spears [facility] Work Phone: 07-29-2011 08:30-0500 BMI (Body Mass Index) 32.7 kg/m2 MOIRA Crowell LPN [facility] Work Phone: 07-29-2011 08:30-0500 Body Temperature 97.9 [degF] MOIRA Crowell LPN [facility] Work Phone: Comment on above: Method: Oral 07-29-2011 08:30-0500 Body weight 89.81 kg MOIRA Crowell LPN [facility] Work Phone: 07-29-2011 08:30-0500 BP Diastolic 80 mm[Hg] MOIRA Crowell LPN [facility] Work Phone: Comment on above: Patient Position: Sitting; Cuff Location : Left Arm; Cuff Size: Standard 07-29-2011 08:30-0500 BP Systolic 140 mm[Hg] MOIRA Crowell LPN [facility] Work Phone: Comment on above: Patient Position: Sitting; Cuff Location : Left Arm; Cuff Size: Standard 07-29-2011 08:30-0500 BSA (Body Surface Area) 1.98 m2 [facility] Work Phone: 07-29-2011 08:30-0500 Height 165.74 cm MOIRA Crowell [facility] Work Phone: 07-29-2011 08:30-0500 Pulse (Heart Rate) 74 /min MOIRA Crowell [facility] Work Phone: Comment on above: Pattern: Regular 07-29-2011 08:30-0500 Respiratory Rate 18 /min MOIRA Crowell LPN [facility] Work Phone: Comment on above: Pattern: Unlabored 07-29-2011 08:30-0500 Weight 89.81 kg Lakisha Spears [facility] Work Phone: 06-30-2011 08:26-0400 BMI (Body Mass Index) 32.7 kg/m2 [facility] Work Phone: 06-30-2011 08:26-0400 Body Temperature 98 [degF] MOIRA Crowell [facility] Work Phone: Comment on above: Method: Oral 06-30-2011 08:26-0400 Body weight 89.81 kg MOIRA Crowell [facility] Work Phone: 06-30-2011 08:26-0400 BP Diastolic 78 mm[Hg] MOIRA Crowell [facility] Work Phone: Comment on above: Patient Position: Sitting; Cuff Location : Left Arm; Cuff Size: Standard 06-30-2011 08:26-0400 BP Systolic 126 mm[Hg] MOIRA Crowell [facility] Work Phone: Comment on above: Patient Position: Sitting; Cuff Location : Left Arm; Cuff Size: Standard 06-30-2011 08:26-0400 BSA (Body Surface Area) 1.98 m2 MOIRA Crowell LPN [facility] Work Phone: 06-30-2011 08:26-0400 Height 165.74 cm MOIRA Crowell LPN [facility] Work Phone: 06-30-2011 08:26-0400 Pulse (Heart Rate) 70 /min MOIRA Crowell LPN [facility] Work Phone: Comment on above: Pattern: Regular 06-30-2011 08:26-0400 Respiratory Rate 18 /min MOIRA Crowell LPN [facility] Work Phone: Comment on above: Pattern: Unlabored 06-30-2011 08:26-0400 Weight 89.81 kg Lakisha Spears [facility] Work Phone: 11-08-2010 09:37-0500 BMI (Body Mass Index) 31.87 kg/m2 Katia Saunders SUEDING MACHINE OPERATOR [facility] Work Phone: 11-08-2010 09:37-0500 Body Temperature 97.3 [degF] Katia Saunders SUEDING MACHINE OPERATOR [facility] Work Phone: Comment on above: Method: Oral 11-08-2010 09:37-0500 Body weight 87.54 kg Katia Saunders SUEDING MACHINE OPERATOR [facility] Work Phone: 11-08-2010 09:37-0500 BP Diastolic 72 mm[Hg] Katia Saunders SUEDING MACHINE OPERATOR [facility] Work Phone: Comment on above: Patient Position: Sitting; Cuff Location : Left Arm; Cuff Size: Standard 11-08-2010 09:37-0500 BP Systolic 124 mm[Hg] Katia Saunders SUEDING MACHINE OPERATOR [facility] Work Phone: Comment on above: Patient Position: Sitting; Cuff Location : Left Arm; Cuff Size: Standard 11-08-2010 09:37-0500 BSA (Body Surface Area) 1.95 m2 Katia Saunders SUEDING MACHINE OPERATOR [facility] Work Phone: 11-08-2010 09:37-0500 Height 165.74 cm Katia Saunders LPN [facility] Work Phone: 11-08-2010 09:37-0500 Pulse (Heart Rate) 74 /min Katia Saunders LPN [facility] Work Phone: Comment on above: Pattern: Regular 11-08-2010 09:37-0500 Respiratory Rate 16 /min Katia Saunders LPN [facility] Work Phone: Comment on above: Pattern: Unlabored 11-08-2010 09:37-0500 Weight 87.54 kg Lakisha Spears [facility] Work Phone: 10-27-2010 13:26-0500 BMI (Body Mass Index) 31.87 kg/m2 Katia Saunders LPN [facility] Work Phone: 10-27-2010 13:26-0500 Body Temperature 97.2 [degF] Katia Saunders LPN [facility] Work Phone: Comment on above: Method: Oral 10-27-2010 13:26-0500 Body weight 87.54 kg Katia Saunders LPN [facility] Work Phone: 10-27-2010 13:26-0500 BP Diastolic 82 mm[Hg] Katia Saunders LPN [facility] Work Phone: Comment on above: Patient Position: Sitting; Cuff Location : Left Arm; Cuff Size: Standard 10-27-2010 13:26-0500 BP Systolic 136 mm[Hg] Katia Saunders LPN [facility] Work Phone: Comment on above: Patient Position: Sitting; Cuff Location : Left Arm; Cuff Size: Standard 10-27-2010 13:26-0500 BSA (Body Surface Area) 1.95 m2 Katia Saunders LPN [facility] Work Phone: 10-27-2010 13:26-0500 Height 165.74 cm Katia Saunders LPN [facility] Work Phone: 10-27-2010 13:26-0500 Pulse (Heart Rate) 88 /min Katia Saunders LPN [facility] Work Phone: Comment on above: Pattern: Regular 10-27-2010 13:26-0500 Respiratory Rate 17 /min Katia Saunders LPN [facility] Work Phone: Comment on above: Pattern: Unlabored 10-27-2010 13:26-0500 Weight 87.54 kg Lakisha Spears [facility] Work Phone: 10-25-2010 08:46-0500 BMI (Body Mass Index) 31.87 kg/m2 Katia Saunders LPN [facility] Work Phone: 10-25-2010 08:46-0500 Body Temperature 97.9 [degF] Katia Saunders LPN [facility] Work Phone: Comment on above: Method: Oral 10-25-2010 08:46-0500 Body weight 87.54 kg Katia Saunders LPN [facility] Work Phone: 10-25-2010 08:46-0500 BP Diastolic 78 mm[Hg] Katia Saunders LPN [facility] Work Phone: Comment on above: Patient Position: Sitting; Cuff Location : Left Arm; Cuff Size: Standard 10-25-2010 08:46-0500 BP Systolic 134 mm[Hg] Katia Saunders LPN [facility] Work Phone: Comment on above: Patient Position: Sitting; Cuff Location : Left Arm; Cuff Size: Standard 10-25-2010 08:46-0500 BSA (Body Surface Area) 1.95 m2 Katia Saunders LPN [facility] Work Phone: 10-25-2010 08:46-0500 Height 165.74 cm Katia Saunders LPN [facility] Work Phone: 10-25-2010 08:46-0500 Pulse (Heart Rate) 76 /min Katia Saunders LPN [facility] Work Phone: Comment on above: Pattern: Regular 10-25-2010 08:46-0500 Respiratory Rate 18 /min Katia Saunders LPN [facility] Work Phone: Comment on above: Pattern: Unlabored 10-25-2010 08:46-0500 Weight 87.54 kg Lakisha Spears [facility] Work Phone: 09-06-2010 11:21-0500 BMI (Body Mass Index) 31.87 kg/m2 MOIRA Crowell LPN [facility] Work Phone: 09-06-2010 11:21-0500 Body Temperature 97.6 [degF] MOIRA Crowell LPN [facility] Work Phone: Comment on above: Method: Oral 09-06-2010 11:21-0500 Body weight 87.54 kg MOIRA Crowell LPN [facility] Work Phone: 09-06-2010 11:21-0500 BP Diastolic 80 mm[Hg] MOIRA Crowell LPN [facility] Work Phone: Comment on above: Patient Position: Sitting; Cuff Location : Left Arm; Cuff Size: Standard 09-06-2010 11:21-0500 BP Systolic 120 mm[Hg] MOIRA Crowell LPN [facility] Work Phone: Comment on above: Patient Position: Sitting; Cuff Location : Left Arm; Cuff Size: Standard 09-06-2010 11:21-0500 BSA (Body Surface Area) 1.95 m2 MOIRA Crowell LPN [facility] Work Phone: 09-06-2010 11:21-0500 Height 165.74 cm MOIRA Crowell LPN [facility] Work Phone: 09-06-2010 11:21-0500 Pulse (Heart Rate) 74 /min MOIRA Crowell LPN [facility] Work Phone: Comment on above: Pattern: Regular 09-06-2010 11:21-0500 Respiratory Rate 20 /min MOIRA Crowell LPN [facility] Work Phone: Comment on above: Pattern: Unlabored 09-06-2010 11:21-0500 Weight 87.54 kg Lakisha Spears [facility] Work Phone: 08-31-2010 08:25-0500 BMI (Body Mass Index) 31.87 kg/m2 Elizabet Johnston RN [facility] Work Phone: 08-31-2010 08:25-0500 Body Temperature 98.2 [degF] Elizabet Johnston RN [facility] Work Phone: Comment on above: Method: Oral 08-31-2010 08:25-0500 Body weight 87.54 kg Elizabet Johnston RN [facility] Work Phone: 08-31-2010 08:25-0500 BP Diastolic 84 mm[Hg] Elizabet Johnston RN [facility] Work Phone: Comment on above: Patient Position: Sitting; Cuff Location : Left Arm; Cuff Size: Standard 08-31-2010 08:25-0500 BP Systolic 118 mm[Hg] Elizabet Johnston RN [facility] Work Phone: Comment on above: Patient Position: Sitting; Cuff Location : Left Arm; Cuff Size: Standard 08-31-2010 08:25-0500 BSA (Body Surface Area) 1.95 m2 Elizabet Johnston RN [facility] Work Phone: 08-31-2010 08:25-0500 Height 165.74 cm Elizabet Johnston RN [facility] Work Phone: 08-31-2010 08:25-0500 Pulse (Heart Rate) 72 /min Elizabet Johnston RN [facility] Work Phone: Comment on above: Pattern: Regular 08-31-2010 08:25-0500 Respiratory Rate 18 /min Elizabet Johnston RN [facility] Work Phone: Comment on above: Pattern: Unlabored 08-31-2010 08:25-0500 Weight 87.54 kg Lakisha Spears [facility] Work Phone: 08-27-2010 11:11-0500 BMI (Body Mass Index) 31.87 kg/m2 MOIRA Crowell LPN [facility] Work Phone: 08-27-2010 11:11-0500 Body Temperature 98.1 [degF] MOIRA Crowell LPN [facility] Work Phone: Comment on above: Method: Oral 08-27-2010 11:11-0500 Body weight 87.54 kg MOIRA Crowell LPN [facility] Work Phone: 08-27-2010 11:11-0500 BP Diastolic 80 mm[Hg] MOIRA Crowell LPN [facility] Work Phone: Comment on above: Patient Position: Sitting; Cuff Location : Left Arm; Cuff Size: Large 08-27-2010 11:11-0500 BP Systolic 122 mm[Hg] MOIRA Crowell LPN [facility] Work Phone: Comment on above: Patient Position: Sitting; Cuff Location : Left Arm; Cuff Size: Large 08-27-2010 11:11-0500 BSA (Body Surface Area) 1.95 m2 MOIRA Crowell LPN [facility] Work Phone: 08-27-2010 11:11-0500 Height 165.74 cm MOIRA Crowell LPN [facility] Work Phone: 08-27-2010 11:11-0500 Pulse (Heart Rate) 72 /min MOIRA Crowell LPN [facility] Work Phone: Comment on above: Pattern: Regular 08-27-2010 11:11-0500 Respiratory Rate 18 /min MOIRA Crowell LPN [facility] Work Phone: Comment on above: Pattern: Unlabored 08-27-2010 11:11-0500 Weight 87.54 kg Lakisha Spears [facility] Work Phone: 03-05-2010 13:41-0400 Body weight 91.17 kg MOIRA Crowell LPN [facility] Work Phone: 03-05-2010 13:41-0400 BP Diastolic 78 mm[Hg] MOIRA Crowell LPN [facility] Work Phone: Comment on above: Patient Position: Sitting; Cuff Location : Left Arm; Cuff Size: Standard 03-05-2010 13:41-0400 BP Systolic 120 mm[Hg] MOIRA Crowell LPN [facility] Work Phone: Comment on above: Patient Position: Sitting; Cuff Location : Left Arm; Cuff Size: Standard 03-05-2010 13:41-0400 Pulse (Heart Rate) 70 /min MOIRA Crowell LPN [facility] Work Phone: Comment on above: Pattern: Regular 03-05-2010 13:41-0400 Respiratory Rate 18 /min MOIRA Crowell LPN [facility] Work Phone: Comment on above: Pattern: Unlabored 03-05-2010 13:41-0400 Weight 91.17 kg Lakisha Spears [facility] Work Phone: 04-28-2009 09:50-0400 Body weight 90.72 kg MOIRA Crowell LPN [facility] Work Phone: 04-28-2009 09:50-0400 BP Diastolic 78 mm[Hg] MOIRA Crowell LPN [facility] Work Phone: Comment on above: Patient Position: Sitting; Cuff Location : Left Arm; Cuff Size: Large 04-28-2009 09:50-0400 BP Systolic 118 mm[Hg] MOIRA Crowell LPN [facility] Work Phone: Comment on above: Patient Position: Sitting; Cuff Location : Left Arm; Cuff Size: Large 04-28-2009 09:50-0400 Head Circumference 0 cm Lakisha Spears [facility] Work Phone: 04-28-2009 09:50-0400 Head Occipital-frontal circumference 0 cm MOIRA Crowell LPN [facility]; [facility] Work Phone: 04-28-2009 09:50-0400 Height 0 cm MOIRA Crowell LPN [facility] Work Phone: 04-28-2009 09:50-0400 Pulse (Heart Rate) 70 /min MOIRA Crowell LPN [facility] Work Phone: Comment on above: Pattern: Regular 04-28-2009 09:50-0400 Respiratory Rate 18 /min MOIRA Crowell LPN [facility] Work Phone: Comment on above: Pattern: Unlabored 04-28-2009 09:50-0400 Weight 90.72 kg Lakisha Spears [facility] Work Phone: 11-04-2008 08:55-0500 Body weight 89.81 kg MOIRA Crowell LPN [facility] Work Phone: 11-04-2008 08:55-0500 BP Diastolic 84 mm[Hg] MOIRA Crowell LPN [facility] Work Phone: Comment on above: Patient Position: Sitting; Cuff Location : Left Arm; Cuff Size: Large 11-04-2008 08:55-0500 BP Systolic 120 mm[Hg] MOIRA Corwell LPN [facility] Work Phone: Comment on above: Patient Position: Sitting; Cuff Location : Left Arm; Cuff Size: Large 11-04-2008 08:55-0500 Head Circumference 0 cm Lakisha Spears [facility] Work Phone: 11-04-2008 08:55-0500 Head Occipital-frontal circumference 0 cm MOIRA Crowell LPN [facility]; [facility] Work Phone: 11-04-2008 08:55-0500 Height 0 cm MOIRA Crowell LPN [facility] Work Phone: 11-04-2008 08:55-0500 Pulse (Heart Rate) 74 /min MOIRA Crowell LPN [facility] Work Phone: Comment on above: Pattern: Regular 11-04-2008 08:55-0500 Respiratory Rate 16 /min MOIRA Crowell LPN [facility] Work Phone: Comment on above: Pattern: Unlabored 11-04-2008 08:55-0500 Weight 89.81 kg Lakisha Spears [facility] Work Phone: 10-24-2008 09:29-0500 BMI (Body Mass Index) 32.7 kg/m2 Bharti Villegas RN [facility] Work Phone: 10-24-2008 09:29-0500 Body weight 89.81 kg Bharti Villegas RN [facility] Work Phone: 10-24-2008 09:29-0500 BP Diastolic 86 mm[Hg] Bharti Villegas RN [facility] Work Phone: Comment on above: Patient Position: Sitting; Cuff Location : Left Arm; Cuff Size: Standard 10-24-2008 09:29-0500 BP Systolic 138 mm[Hg] Bharti Villegas RN [facility] Work Phone: Comment on above: Patient Position: Sitting; Cuff Location : Left Arm; Cuff Size: Standard 10-24-2008 09:29-0500 BSA (Body Surface Area) 1.98 m2 Bharit Villegas RN [facility] Work Phone: 10-24-2008 09:29-0500 Head Circumference 0 cm Lakisha Whit [facility] Work Phone: 10-24-2008 09:29-0500 Head Occipital-frontal circumference 0 cm Bharti Villegas RN [facility]; [facility] Work Phone: 10-24-2008 09:29-0500 Height 165.74 cm Bharti Villegas RN [facility] Work Phone: 10-24-2008 09:29-0500 Pulse (Heart Rate) 80 /min Bharti Villegas RN [facility] Work Phone: Comment on above: Pattern: Regular 10-24-2008 09:29-0500 Respiratory Rate 20 /min Bharti Villegas RN [facility] Work Phone: Comment on above: Pattern: Unlabored 10-24-2008 09:29-0500 Weight 89.81 kg Lakisha Spears [facility] Work Phone: 08-10-2007 10:57-0500 BMI (Body Mass Index) 31.71 kg/m2 MOIRA Crowell LPN [facility] Work Phone: 08-10-2007 10:57-0500 Body Temperature 98.6 [degF] MOIRA Crowell LPN [facility] Work Phone: Comment on above: Method: Oral 08-10-2007 10:57-0500 Body weight 87.09 kg MOIRA Crowell LPN [facility] Work Phone: 08-10-2007 10:57-0500 BP Diastolic 80 mm[Hg] MOIRA Crowell LPN [facility] Work Phone: Comment on above: Patient Position: Sitting; Cuff Location : Left Arm; Cuff Size: Standard 08-10-2007 10:57-0500 BP Systolic 122 mm[Hg] MOIRA Crowell LPN [facility] Work Phone: Comment on above: Patient Position: Sitting; Cuff Location : Left Arm; Cuff Size: Standard 08-10-2007 10:57-0500 BSA (Body Surface Area) 1.95 m2 MOIRA Crowell LPN [facility] Work Phone: 08-10-2007 10:57-0500 Head Circumference 0 cm Lakisha Spears [facility] Work Phone: 08-10-2007 10:57-0500 Head Occipital-frontal circumference 0 cm MOIRA Crowell LPN [facility]; [facility] Work Phone: 08-10-2007 10:57-0500 Height 165.74 cm MOIRA Crowell LPN [facility] Work Phone: 08-10-2007 10:57-0500 Pulse (Heart Rate) 72 /min MOIRA Crowell LPN [facility] Work Phone: Comment on above: Pattern: Regular 08-10-2007 10:57-0500 Respiratory Rate 18 /min MOIRA Crowell LPN [facility] Work Phone: Comment on above: Pattern: Unlabored 08-10-2007 10:57-0500 Weight 87.09 kg Lakisha Spears [facility] Work Phone: 09-26-2006 10:04-0500 BMI (Body Mass Index) 31.35 kg/m2 Katia Saunders SUEDING MACHINE OPERATOR [facility] Work Phone: 09-26-2006 10:04-0500 Body Temperature 98 [degF] Katia Saunders SUEDING MACHINE OPERATOR [facility] Work Phone: Comment on above: Method: Oral 09-26-2006 10:04-0500 Body weight 88.11 kg Katia Saunders SUEDING MACHINE OPERATOR [facility] Work Phone: 09-26-2006 10:04-0500 BP Diastolic 80 mm[Hg] Katia Saunders LPN [facility] Work Phone: Comment on above: Patient Position: Sitting; Cuff Location : Left Arm; Cuff Size: Standard 09-26-2006 10:04-0500 BP Systolic 124 mm[Hg] Katia Saunders LPN [facility] Work Phone: Comment on above: Patient Position: Sitting; Cuff Location : Left Arm; Cuff Size: Standard 09-26-2006 10:04-0500 BSA (Body Surface Area) 1.98 m2 Katia Saunders LPN [facility] Work Phone: 09-26-2006 10:04-0500 Head Circumference 0 cm Lakisha Spears [facility] Work Phone: 09-26-2006 10:04-0500 Head Occipital-frontal circumference 0 cm Katia Saunders LPN [facility]; [facility] Work Phone: 09-26-2006 10:04-0500 Height 167.64 cm Katia Saunders LPN [facility] Work Phone: 09-26-2006 10:04-0500 Pulse (Heart Rate) 58 /min Katia Saunders LPN [facility] Work Phone: Comment on above: Pattern: Regular 09-26-2006 10:04-0500 Respiratory Rate 15 /min Katia Saunders LPN [facility] Work Phone: Comment on above: Pattern: Unlabored 09-26-2006 10:04-0500 Weight 88.11 kg Lakisha Spears [facility] Work Phone: Encounters Encounter Date Encounter Type Care Provider Facility Start: 07-16-2025 ambulatory [facility] Facility :[facility] Start: 06-27-2025 End: 06-27-2025 Patient encounter procedure Abdias MAYEN -[facility] Work Phone: Start: 06-27-2025 End: 06-27-2025 ambulatory Dian BRITTON Work Phone: -[facility] Start: 02-14-2025 End: 02-14-[address] Bro Deleon MD -[facility] Work Phone: Start: 02-14-2025 End: 02-14-2025 ambulatory Dian Duron [employer]EWARD-C Work Phone: [facility] Work Phone: Start: 02-05-2025 End: 02-05-2025 ambulatory Dian Duron FLIGHT STEWARD-C Work Phone: [facility] Work Phone: Start: 02-05-2025 End: 02-05-[address] Bro Deleon MD -[facility] Work Phone: Start: 02-05-2025 End: 02-05-2025 ambulatory Dian Duron Facility:[facility] Start: 01-13-2025 End: 01-13-2025 Patient encounter procedure Abdias Ortiz [place] -[facility] Work Phone: Start: 01-13-2025 End: 01-13-2025 ambulatory Abdias Ortiz Facility:[facility] Start: 12-19-2024 End: 12-19-2024 ambulatory Dian Duron FLIGHT STEWARD-C Work Phone: [facility] Work Phone: Start: 12-19-2024 End: 12-19-2024 Patient encounter procedure Dian Duron FLIGHT STEWARD-C -Outpatient Bone Densitometry Work Phone: Start: 12-19-2024 End: 12-19-2024 ambulatory Dian Duron Facility:[facility] Start: 11-11-2024 End: 11-11-2024 ambulatory Dian Duron FLIGHT STEWARD-C Work Phone: [facility] Work Phone: Start: 11-11-2024 End: 11-11-2024 Patient encounter procedure Dian Duron FLIGHT STEWARD-C -Outpatient Breast Imaging Work Phone: Start: 11-11-2024 End: 11-11-2024 ambulatory Dian Duron Facility:[facility] Start: 08-06-2024 End: 08-06-[address] Bro Deleon MD -[facility] Work Phone: Start: 08-06-2024 End: 08-06-2024 ambulatory Diandayne Duron Facility:[facility] Start: 07-22-2024 End: 07-22-2024 ambulatory Dian Oliverio Facility:[facility] Start: 11-02-2023 End: 11-02-2023 Patient encounter procedure FLIGHT STEWARD-Aquilino Duron Work Phone: [facility] Work Phone: Start: 10-31-2023 End: 10-31-2023 ambulatory FLIGHT STEWARD-Aquilino Duron Work Phone: [facility] Work Phone: Start: 10-31-2023 End: 10-31-2023 Patient encounter procedure FLIGHT STEWARD-Aquilino Duron Work Phone: [facility]-Outpatient Breast Imaging Work Phone: Start: 10-10-2023 End: 10-10-2023 Patient encounter procedure FLIGHT STEWARD-Aquilino Duron Work Phone: [facility] Work Phone: Start: 10-03-2023 Non-patient / Non-visit No Mera Phan Physician [facility] Start: 10-03-2023 End: 10-03-2023 Admission to same day surgery center No Primary Care Physician [facility]-Supervisor Sterile Processing/Special Procedures Work Phone: Start: 10-03-2023 End: 10-03-2023 ambulatory No Primary Care Physician [facility] Work Phone: Start: 09-27-2023 Non-patient / Non-visit No Mera Phan Physician [facility] Start: 09-26-2023 Non-patient / Non-visit No Mera Phan Physician [facility] Start: 09-26-2023 End: 09-26-2023 ambulatory No Primary Care Physician [facility] Work Phone: Start: 09-26-2023 End: 09-26-2023 Patient encounter procedure No Primary Care Physician [facility]-Cardiovascular Services Work Phone: Start: 09-05-2023 End: 09-05-2023 ambulatory No Primary Care Physician [facility] Work Phone: Start: 09-05-2023 End: 09-05-2023 Patient encounter procedure No Primary Care Physician [facility]-Pulmonary Services/Neurology Work Phone: Start: 08-30-2023 End: 08-30-2023 Patient encounter procedure No Primary Care Physician [facility] Work Phone: Start: 08-28-2023 End: 08-28-2023 ambulatory No Primary Care Physician [facility] Work Phone: Start: 08-28-2023 End: 08-28-2023 Patient encounter procedure No Primary Care Physician [facility]-Cat Scan, [facility] Work Phone: Start: 08-28-2023 End: 08-28-2023 ambulatory No Primary Care Physician [facility] Work Phone: Start: 08-28-2023 End: 08-28-2023 Patient encounter procedure No Primary Care Physician [facility]-Laboratory, Specimen Work Phone: Start: 06-24-2023 End: 06-24-2023 Emergency department patient visit No Primary Care Physician [facility]-Emergency Department Work Phone: Start: 06-23-2023 End: 06-23-2023 Dian Duron CNP Work Phone: [facility] Start: 06-23-2023 End: 06-23-2023 ambulatory No Primary Care Physician [facility] Work Phone: Start: 06-23-2023 End: 06-23-2023 Patient encounter procedure No Primary Care Physician [facility]-Laboratory, Specimen Work Phone: Start: 06-23-2023 End: 06-23-2023 Patient encounter procedure Kristabernadine Castillo LPN [facility]; [facility] Work Phone: Start: 06-23-2023 End: 06-23-2023 Office outpatient visit 15 minutes Dian Duron CNP Work Phone: [facility] Start: 02-20-2023 End: 02-20-2023 Office outpatient visit 25 minutes Dian Duron CNP Work Phone: [facility] Start: 02-20-2023 Dian Duron CNP Work Phone: [facility] Start: 02-15-2023 End: 02-15-2023 Dian Duron CNP Work Phone: [facility] Start: 10-19-2022 End: 10-19-2022 ambulatory No Primary Care Physician [facility] Work Phone: Start: 10-19-2022 End: 10-19-2022 Patient encounter procedure No Primary Care Physician [facility]-Outpatient Bone Densitometry Start: 09-19-2022 End: 09-19-2022 Patient encounter procedure No Primary Care Physician [facility] Start: 08-22-2022 ambulatory Dian Duron CNP [facility] Start: 08-22-2022 End: 08-22-2022 Office outpatient visit 15 minutes Dian Duron CNP Work Phone: [facility] Start: 08-22-2022 Dian Duron CNP Work Phone: [facility] Start: 03-21-2022 End: 03-21-2022 Admission to same day surgery center FLIGHT STEWARD-C Lakisha Spears FLIGHT STEWARD Work Phone: [facility]-Surgical Day Care Start: 02-09-2022 End: 02-09-2022 Discharged Recurring FLIGHT STEWARD-C Lakisha Spears FLIGHT STEWARD Work Phone: [facility]-Physical Therapy Start: 02-02-2022 End: 02-02-2022 Patient encounter procedure FLIGHT STEWARD-Aquilino Spears FLIGHT STEWARD Work Phone: [facility]-MRI - [facility] Start: 02-01-2022 Registered Recurring FLIGHT STEWARD-C Lakisha Spears FLIGHT STEWARD Work Phone: [facility]-Physical Therapy Start: 01-31-2022 End: 01-31-2022 Office outpatient visit 15 minutes Lakisha Spears Work Phone: [facility] Start: 01-31-2022 Lakisha Spears Work Phone: [facility] Start: 01-27-2022 End: 01-27-2022 Patient encounter procedure FLIGHT STEWARD-C Lakisha Spears FLIGHT STEWARD Work Phone: [facility] Start: 01-27-2022 End: 01-27-2022 Patient encounter procedure FLIGHT STEWARD-C Lakisha Spears FLIGHT STEWARD Work Phone: [facility] Neurology Start: 11-03-2021 End: 11-03-2021 Patient encounter procedure FLIGHT STEWARD-C Lakisha Spears FLIGHT STEWARD Work Phone: [facility] Start: 10-31-2021 End: 10-31-2021 Patient encounter procedure FLIGHT STEWARD-C Lakisha Spears FLIGHT STEWARD Work Phone: [facility] Start: 10-22-2021 End: 10-22-2021 Patient encounter procedure FLIGHT STEWARD-C Lakisha Spears FLIGHT STEWARD Work Phone: [facility]-Laboratory Start: 10-11-2021 End: 10-11-2021 Admission to same day surgery center FLIGHT STEWARD-C Lakisha Spears FLIGHT STEWARD Work Phone: [facility]-Supervisor Sterile Processing/Special Procedures Start: 09-29-2021 End: 09-29-2021 Lakisha Spears YARD CLERK Work Phone: [facility] Start: 09-14-2021 End: 09-14-2021 Lakisha Spears YARD CLERK Work Phone: [facility] Start: 08-25-2021 End: 08-25-2021 Office outpatient visit 25 minutes Lakisha Spears YARD CLERK Work Phone: [facility] Start: 08-11-2021 End: 08-11-2021 Lakisha Spears YARD CLERK Work Phone: [facility] Start: 05-27-2021 End: 05-27-2021 Lakisha Spears YARD CLERK Work Phone: [facility] Start: 05-26-2021 End: 05-26-2021 Office outpatient visit 25 minutes Lakisha Spears YARD CLERK Work Phone: [facility] Start: 05-11-2021 End: 05-11-2021 Office outpatient visit 15 minutes Lakisha Spears YARD CLERK Work Phone: [facility] Start: 03-02-2021 End: 03-02-2021 Office outpatient visit 15 minutes Lakisha Spears YARD CLERK Work Phone: [facility] Start: 12-23-2020 End: 12-23-2020 Office outpatient visit 10 minutes Lakisha Changbernadine [facility] Start: 11-13-2020 End: 11-13-2020 Office outpatient visit 15 minutes Lakisha Spears [facility] Start: 11-13-2020 Review Lakisha Spears Pipe kit [facility] Medicine Start: 08-14-2020 End: 08-14-2020 Office outpatient visit 25 minutes Lakisha Spears [facility] Start: 08-05-2020 End: 08-05-2020 Lab Order Lakisha Spears [facility] Field [facility] al Medicine Start: 08-05-2020 End: 08-05-2020 Lakisha Spears YARD CLERK Work Phone: [facility] Start: 06-18-2020 End: 06-18-2020 Office outpatient visit 5 minutes Lakisha Changbernadine [facility] Start: 05-13-2020 End: 05-13-2020 Lab Order Lakisha Spears [facility] Start: 05-13-2020 End: 05-13-2020 Lakisha Spears YARD CLERK Work Phone: [facility] Start: 04-02-2020 End: 04-02-2020 Office outpatient visit 10 minutes Lakisha Charlenebernadine [facility] Start: 03-31-2020 End: 03-31-2020 Annotation/Addendum Lakisha Charlenebernadine [facility] Start: 03-31-2020 End: 03-31-2020 Lakisha Spears YARD CLERK Work Phone: [facility] Start: 02-12-2020 End: 02-12-2020 Office outpatient visit 25 minutes Lakisha Spears [facility] Start: 02-04-2020 End: 02-04-2020 Lab Order Lakisha Spears [facility] Start: 02-04-2020 End: 02-04-2020 Lakisha Spears YARD CLERK Work Phone: [facility] Start: 11-05-2019 End: 11-05-2019 Office outpatient visit 5 minutes Lakisha Spears [facility] Start: 09-16-2019 End: 09-16-2019 Annotation/Addendum Lakisha Spears [facility] Start: 09-16-2019 End: 09-16-2019 Lakisha Spears YARD CLERK Work Phone: [facility] Start: 07-01-2019 End: 07-01-2019 Office outpatient visit 5 minutes Lakisha Changbernadine [facility] Start: 08-13-2018 End: 08-13-2018 Patient encounter procedure Maria Luisa Angel [facility]; [facility] Work Phone: Start: 08-13-2018 End: 08-13-2018 Periodic preventive med est patient 65yrs& older Lakisha Changbernadine [facility] Start: 08-06-2018 End: 08-06-2018 Office outpatient visit 15 minutes Lakisha Spears [facility] Start: 07-25-2018 End: 07-25-2018 Lab Order Lakisha Spears [facility] Start: 07-25-2018 End: 07-25-2018 Lakisha Spears YARD CLERK Work Phone: [facility] Start: 04-13-2018 End: 04-13-2018 Office outpatient visit 15 minutes Lakisha Changbernadine [facility] Start: 12-18-2017 End: 12-18-2017 Annotation/Addendum Lakisha Spears [facility] Start: 12-18-2017 End: 12-18-2017 Lakisha Spears YARD CLERK Work Phone: [facility] Start: 12-07-2017 End: 12-07-2017 Office outpatient visit 10 minutes Lakisha Charlenebernadine [facility] Start: 09-13-2017 End: 09-13-2017 Annotation/Addendum Lakisha Spears [facility] Start: 09-13-2017 End: 09-13-2017 Lakisha Spears YARD CLERK Work Phone: [facility] Start: 07-25-2017 End: 07-25-2017 Lab Order Lakisha Spears [facility] Start: 07-25-2017 End: 07-25-2017 Lakisha Spears YARD CLERK Work Phone: [facility] Start: 07-25-2017 End: 07-25-2017 Office outpatient visit 25 minutes Lakisha Spears [facility] Start: 07-17-2017 End: 07-17-2017 Lab Order Lakisha Spears [facility] Start: 07-17-2017 End: 07-17-2017 Lakisha Spears YARD CLERK Work Phone: [facility] Start: 09-16-2016 End: 09-16-2016 Annotation/Addendum Lakisha Spears [facility] Start: 09-16-2016 End: 09-16-2016 Lakisha Spears YARD CLERK Work Phone: [facility] Start: 09-13-2016 End: 09-13-2016 Office outpatient visit 15 minutes Lakisha Spears [facility] Start: 06-27-2016 End: 06-27-2016 Office outpatient visit 15 minutes Lakisha Spears [facility] Start: 06-27-2016 End: 06-27-2016 Annotation/Addendum Lakisha Spears [facility] Start: 06-27-2016 End: 06-27-2016 Lakisha Spears YARD CLERK Work Phone: [facility] Start: 06-14-2016 End: 06-14-2016 Office outpatient visit 15 minutes Lakisha Spears [facility] Start: 06-13-2016 End: 06-13-2016 Office outpatient visit 25 minutes Lakisha Spears [facility] Start: 12-11-2015 End: 12-11-2015 Office outpatient visit 25 minutes Lakisha Spears [facility] Start: 11-23-2015 End: 11-23-2015 Office outpatient visit 15 minutes Lakisha Spears [facility] Start: 11-05-2015 End: 11-05-2015 Patient encounter Lakisha Spears [facility] Start: 11-05-2015 End: 11-05-2015 Lakisha Spears YARD CLERK Work Phone: [facility] Start: 10-26-2015 End: 10-26-2015 Office outpatient visit 25 minutes Lakisha Spears [facility] Start: 07-13-2015 End: 07-13-2015 Lab Order Lakisha Spears [facility] Start: 07-13-2015 End: 07-13-2015 Lakisha Spears YARD CLERK Work Phone: [facility] Start: 09-01-2014 End: 09-01-2014 Office outpatient visit 25 minutes Lakisha Spears [facility] Start: 06-12-2014 End: 06-12-2014 Phone Encounter Lakisha Spears [facility] Start: 06-12-2014 End: 06-12-2014 Lakisha Spears YARD CLERK Work Phone: [facility] Start: 01-07-2014 End: 01-07-2014 Patient encounter Lakisha Spears [facility] Start: 01-07-2014 End: 01-07-2014 Lakisha Spears YARD CLERK Work Phone: [facility] Start: 08-30-2013 End: 08-30-2013 Lab Order Lakisha Spears [facility] Start: 08-30-2013 End: 08-30-2013 Lakisha Spears YARD CLERK Work Phone: [facility] Start: 08-29-2013 End: 08-29-2013 Patient encounter Lakisha Spears [facility] Start: 08-29-2013 End: 08-29-2013 Lakisha Spears YARD CLERK Work Phone: [facility] Start: 08-23-2013 End: 08-23-2013 Office outpatient visit 15 minutes Lakisha Spears [facility] Start: 07-16-2013 End: 07-16-2013 Lab Order Lakisha Spears [facility] Start: 07-16-2013 End: 07-16-2013 Lakisha Spears YARD CLERK Work Phone: [facility] Start: 07-15-2013 End: 07-15-2013 Phone Encounter Lakisha Spears [facility] Start: 07-15-2013 End: 07-15-2013 Lakisha Spears YARD CLERK Work Phone: [facility] Start: 07-04-2013 End: 07-04-2013 Phone Encounter Lakisha Spears [facility] Start: 07-04-2013 End: 07-04-2013 Lakisha Spears YARD CLERK Work Phone: [facility] Start: 06-24-2013 End: 06-24-2013 Patient encounter Lakisha Spears [facility] Start: 06-24-2013 End: 06-24-2013 Lakisha Spears YARD CLERK Work Phone: [facility] Start: 06-13-2013 End: 06-13-2013 Lab Order Lakisha Spears [facility] Start: 06-13-2013 End: 06-13-2013 Lakisha Spears YARD CLERK Work Phone: [facility] Start: 03-18-2013 End: 03-18-2013 Phone Encounter Lakisha Spears [facility] Start: 03-18-2013 End: 03-18-2013 Lakisha Spears YARD CLERK Work Phone: [facility] Start: 10-26-2012 End: 10-26-2012 Patient encounter Lakisha Spears [facility] Start: 10-26-2012 End: 10-26-2012 Lakisha Spears YARD CLERK Work Phone: [facility] Start: 09-21-2012 End: 09-23-2012 Patient encounter Lakisha Spears [facility] Start: 09-21-2012 End: 09-23-2012 Lakisha Spears YARD CLERK Work Phone: [facility] Start: 06-04-2012 End: 06-04-2012 Lab Order Lakisha Spears [facility] Start: 06-04-2012 End: 06-04-2012 Routine gynecological examination Lakisha Spears Work Phone: [facility] Start: 06-04-2012 End: 06-04-2012 Lakisha Spears YARD CLERK Work Phone: [facility] Start: 05-07-2012 End: 05-07-2012 Patient encounter Lakisha Spears [employer] [facility] Start: 05-07-2012 End: 05-07-2012 Lakisha Spears YARD CLERK Work Phone: [facility] Start: 05-03-2012 End: 05-03-2012 Patient encounter Lakisha Spears [employer] [facility] Start: 05-03-2012 End: 05-03-2012 Lakisha Spears YARD CLERK Work Phone: [facility] Start: 04-17-2012 End: 04-17-2012 Phone Encounter Lakisha Spears [employer] [facility] [employer] Start: 04-17-2012 End: 04-17-2012 Lakisha Spears YARD CLERK Work Phone: [facility] Start: 04-16-2012 End: 04-16-2012 Patient encounter Lakisha Spears [employer] [facility] Start: 04-16-2012 End: 04-16-2012 Lakisha Spears YARD CLERK Work Phone: [facility] Start: 03-26-2012 End: 03-26-2012 Patient encounter Lakisha Spears [employer] [facility] [employer] Start: 03-26-2012 End: 03-26-2012 Lakisha Spears YARD CLERK Work Phone: [facility] Start: 03-15-2012 End: 03-15-2012 Patient encounter Lakisha Spears [employer] [facility] [employer] Start: 03-15-2012 End: 03-15-2012 Lakisha Spears YARD CLERK Work Phone: [facility] Start: 12-22-2011 End: 12-22-2011 Patient encounter Lakisha Spears [employer] [facility] Start: 12-22-2011 End: 12-22-2011 Lakisha Spears YARD CLERK Work Phone: [facility] Start: 08-19-2011 End: 08-22-2011 Patient encounter Lakisha Spears [employer] [facility] Start: 08-19-2011 End: 08-22-2011 Lakisha Spears YARD CLERK Work Phone: [facility] Start: 08-15-2011 End: 08-15-2011 Phone Encounter Lakisha Spears [employer] [facility] Start: 08-15-2011 End: 08-15-2011 Lakisha Spears YARD CLERK Work Phone: [facility] Start: 08-12-2011 End: 08-15-2011 Patient encounter Lakisha Spears [employer] [facility] Start: 08-12-2011 End: 08-15-2011 Lakisha Spears YARD CLERK Work Phone: [facility] Start: 07-29-2011 End: 07-29-2011 Patient encounter Lakisha Spears [employer] [facility] Start: 07-29-2011 End: 07-29-2011 Lakisha Spears YARD CLERK Work Phone: [facility] Start: 06-30-2011 End: 06-30-2011 Patient encounter Lakisha Spears [employer] [facility] Start: 06-30-2011 End: 06-30-2011 Lakisha Spears YARD CLERK Work Phone: [facility] Start: 06-09-2011 End: 06-09-2011 Phone Encounter Lakisha Spears [employer] [facility] Start: 06-09-2011 End: 06-09-2011 Lakisha Spears YARD CLERK Work Phone: [facility] Start: 11-08-2010 End: 11-08-2010 Office outpatient visit 25 minutes Lakisha Spears [facility] Start: 10-27-2010 End: 10-27-2010 Office outpatient visit 25 minutes Lakisha Spears [facility] Start: 10-25-2010 End: 10-25-2010 Office outpatient visit 25 minutes Lakisha Spears [facility] Start: 09-06-2010 End: 09-06-2010 Patient encounter Lakisha Spears [employer] [facility] Start: 09-06-2010 End: 09-06-2010 Lakisha Spears YARD CLERK Work Phone: [facility] Start: 08-31-2010 End: 08-31-2010 Patient encounter Lakisha Spears [employer] [facility] Start: 08-31-2010 End: 08-31-2010 Lakisha Spears YARD CLERK Work Phone: [facility] Start: 08-27-2010 End: 08-27-2010 Patient encounter Lakisha Spears [employer] [facility] Start: 08-27-2010 End: 08-27-2010 Lakisha Spears YARD CLERK Work Phone: [facility] Start: 08-16-2010 End: 08-16-2010 Phone Encounter Lakisha Spears [employer] [facility] Start: 08-16-2010 End: 08-16-2010 Lakisha Spears YARD CLERK Work Phone: [facility] Start: 03-05-2010 End: 03-05-2010 Patient encounter Lakisha Spears [employer] Start: 03-05-2010 End: 03-05-2010 Lakisha Spears YARD CLERK Work Phone: [facility] Start: 04-28-2009 End: 04-28-2009 Patient encounter Lakisha Spears [employer] Start: 04-28-2009 End: 04-28-2009 Lakisha Spears YARD CLERK Work Phone: [facility] Start: 04-13-2009 End: 04-13-2009 Phone Encounter Lakisha Spears [employer] [facility] Start: 04-13-2009 End: 04-13-2009 Lakisha Spears YARD CLERK Work Phone: [facility] Start: 03-18-2009 End: 03-18-2009 Historical Summary Lakisha Spears [employer] [facility] Start: 03-18-2009 End: 03-18-2009 Lakisha Spears YARD CLERK Work Phone: [facility] Start: 11-19-2008 End: 11-19-2008 Historical Summary Lakisha Spears [employer] [facility] [employer] [facility] Start: 11-19-2008 End: 11-19-2008 Lakisha Spears YARD CLERK Work Phone: [facility] Start: 11-04-2008 End: 11-04-2008 Patient encounter Lakisha Spears [employer] [facility] [employer] [facility] Start: 11-04-2008 End: 11-04-2008 Lakisha Spears YARD CLERK Work Phone: [facility] Start: 10-24-2008 End: 10-24-2008 Patient encounter Lakisha Spears [employer] [facility] [employer] [facility] Start: 10-24-2008 End: 10-24-2008 Lakisha Spears YARD CLERK Work Phone: [facility] Start: 08-10-2007 End: 08-10-2007 Patient encounter Lakisha Spears [employer] [facility] [employer] [facility] Start: 08-10-2007 End: 08-10-2007 Lakisha Spears YARD CLERK Work Phone: [facility] Start: 09-26-2006 End: 09-28-2006 Patient encounter Lakisha Spears [employer] [facility] Start: 09-26-2006 End: 09-28-2006 Lakisha Spears YARD CLERK Work Phone: [facility] Start: 06-27-2006 End: 06-27-2006 Patient encounter Lakisha Spears [employer] [facility] [employer] Start: 06-27-2006 End: 06-27-2006 Lakisha Spears YARD CLERK Work Phone: [facility] Start: 06-26-2006 End: 06-26-2006 Historical Summary Lakisha Spears [employer] [facility] Start: 06-26-2006 End: 06-26-2006 Lakisha Spears YARD CLERK Work Phone: [facility] Patient encounter procedure Preston Kang SUEDING MACHINE OPERATOR [facility]; [facility] Work Phone: Patient encounter procedure Olga Uriah SUEDING MACHINE OPERATOR [facility]; [facility] Work Phone: Patient encounter procedure Preston Kang SUEDING MACHINE OPERATOR [facility]; [facility] Work Phone: Patient encounter procedure Meena Su [facility]; [facility] Work Phone: Patient encounter procedure Krista Castillo SUEDING MACHINE OPERATOR [facility]; [facility] Work Phone: Patient encounter procedure Krista Slarb SUEDING MACHINE OPERATOR [facility]; [facility] Work Phone: End: 06-24-2013 Routine gynecological examination MOIRA Crowell [facility] Work Phone: Procedures Date Procedure Procedure Detail Performing Clinician Start: 02-05-2025 US scan of thyroid Dian Duron FLIGHT STEWARD-C Work Phone: Start: 12-19-2024 Dual energy X-ray absorptiometry Dian Duron NP-C Work Phone: Start: 11-11-2024 Screening mammography Dian Duron FLIGHT STEWARD-C Work Phone: Start: 10-31-2023 Screening mammography FLIGHT STEWARD-C Dian Duron Work Phone: Start: 08-28-2023 CT angiography of chest with contrast No Primary Care Physician Start: 08-28-2023 Plain chest X-ray No Primary Care Physician Start: 06-24-2023 Computed tomography of abdomen and pelvis with intravenous contrast No Primary Care Physician Start: 06-23-2023 Diagnostic radiography of abdomen No Primary Care Physician Start: 06-23-2023 End: 06-23-2023 Procedure Note: See Note; NOTES: [facility] Radiology [address] [place] [address] Acute Abdomen Inc Chest MR#: [id number] Acct: [id number] Name: KAMRYN MUÑOZ Rep #: [id number] : 1945 F 77 From: Garcia Velared MD PCP: Care Physician,No Primary Status: DEP AMB Study: Acute Abdomen Inc Chest Date of Exam: 06/23/23 Exam# [id number] Ordering Dr: Dian Duron :[id number] STUDY: X-RAY - ACUTE ABDOMINAL SERIES REASON FOR EXAM: Female, 77 years old. LUQ pain Please comment on fecal material if present TECHNIQUE: Single view of the chest. Supine, and erect view(s) of the abdomen were obtained. COMPARISON: None. FINDINGS: The lungs are clear and expanded. Normal size heart. Normal mediastinum and jessica. Normal visualized pulmonary arteries. Normal visualized aortic arch and descending thoracic aorta. There is a normal bowel gas pattern. There is mild stool. There are surgical clips in the right upper quadrant consistent with prior cholecystectomy. There is scoliosis and degenerative change of the spine. There are bilateral hip replacements. RAD/Acute Abdomen Inc Chest IMPRESSION: No obstruction. Electronically Signed: Garcia eVlarde MD at 10:19 EDT , CC: REBA Duron; No Primary Care Physician Card Room Manager: Signed Dian Duron CNP Work Phone: Start: 10-19-2022 Dual energy X-ray absorptiometry No Primary Care Physician Start: 10-19-2022 End: 10-19-2022 Procedure Note: See Note; NOTES: [facility] Imaging Services [address] [place] [address] Dexa Bone Density Study MR#: [id number] Acct: [id number] Name: KAMRYN MUÑOZ Rep #: [id number] : 1945 F 76 From: Wayne blevins MD PCP: Care Physician,No Primary Status: REG CLI Study: Dexa Bone Density Study Date of Exam: 10/19/22 Exam# [id number] Ordering Dr: Dian Duron FLIGHT STEWARD- C STUDY: DUAL ENERGY X-RAY ABSORPTIOMETRY / DXA REASON FOR EXAM: Female, 76 years old. [id number] TECHNIQUE: Bone Mineral Density (BMD) measurements of lumbar spine and left forearm were obtained. COMPARISON: Comparison is made with prior study dated 09/13/2017. FINDINGS: Lumbar Spine (L1-L4): g/cm2 (0.820) / T-score (-1.4) / Z-score (0.9) Findings are suggestive of osteopenia with a low fracture risk. Left Forearm: g/cm2 (0.597) / T-score (-1.6) / Z-score (1.2) The T-Scores on the most recent prior examination were: Lumbar Spine (L1-L4): There has been improvement of bone density since the previous examination. BD/Dexa Bone Density Study IMPRESSION: The patient is considered osteopenic as outlined below according to World Romie Organization (WHO) criteria with a moderate fracture risk. There has been improvement of bone density since the previous examination. [...] 1. NIH Osteoporosis and Related Bone Diseases www osteo.org 2. International Society for Clinical Densitometry www iscd.org 3. National Osteoporosis Foundation www nof.org Electronically Signed: Wayne Rabago MD at 15:23 EST Reading Location ID and State: [facility] / [place] , Service support , CC: Dian Duron FLIGHT STEWARD; No Primary Care Physician Card Room Manager: Signed Dian Duron CNP Work Phone: Start: 10-19-2022 Screening mammography No Primary Care Physician Start: 10-19-2022 End: 10-19-2022 Procedure Note: See Note; NOTES: [facility] Imaging Services [address] [place] [id number] SCRN MAMM (CAD)W/TYLOR BILAT MR#: [id number] Acct: [id number] Name: KAMRYN MUÑOZ Rep #: [id number] : 1945 F 76 From: Wayne blevins MD PCP: Care Physician,No Primary Status: REG CLI Study: SCRN MAMM (CAD)W/TYLOR BILAT Date of Exam: 05/03 Exam# [id number] Ordering Dr: Dian Duron FLIGHT STEWARD- C MAMMOGRAPHY - BILATERAL SCREENING REASON FOR EXAM: Female, 76 years old. Routine annual screening examination. PERTINENT HISTORY: Grandmother with breast cancer. History of remote bilateral breast reduction surgery. TECHNIQUE: Digital bilateral breast tylor (3D mammographic acquisition) in the CC and MLO projections. 2-D mediolateral oblique (MLO) and craniocaudad (CC) views of both breasts were obtained. CAD: Full Field Digital Mammography with Computer Added Detection was performed. COMPARISON: Comparison is made with prior study dated 09/29/2021 and 09/28/2020. FINDINGS: Breast Composition: The breasts are almost entirely fatty. There are no dominant masses or suspicious calcifications. Stable macrocalcifications in the left breast. No other significant abnormalities are identified. There has been no significant change since the prior study. BI/SCRN MAMM (CAD)W/TYLOR BILAT IMPRESSION: Stable bilateral screening mammogram. Yearly follow-up mammogram recommended. (A) ASSESSMENT CATEGORY: BIRADS Category 2: Benign. A letter regarding these results will be sent to the patient by the facility within 30 days. Approximately 10% of breast cancers are not detected by mammography. A normal mammogram should not delay biopsy of a clinically suspicious abnormality. [id number] Electronically Signed: Wayne Rabago MD at 11:05 EST Reading Location ID and State: [address] [place] [address] , Service support , CC: Dian Duron FLIGHT STEWARD; No Primary Care Physician Card Room Manager: Signed Dian Duron YARD CLERK Work Phone: Start: 06-09-2022 End: 06-09-2022 Procedure Note: See Note; NOTES: [address], [address] [place] [address] OFFICE VISIT Date of Service: 06/09/22 MR#: [id number] Acct: [id number] Name: KAMRYN MUÑOZ Rep #: [id number] : 1945 Provider: Dr. Uzair mcgraw MD Age/Sex: 76/F Location: [facility] [email or web address] Status: Signed Intake Vital Signs 01/27/22 10:48 03/21/22 06:25 06/09/22 15:20 06/09/22 19:01 Height 5 ft 4 in 5 ft 5 in 5 ft 5 in Weight: 232 lb 2 oz BMI 38.6 BP 140/78 H 120/82 H Blood Pressure Location Lt brachial Lt brachial Position Sitting Sitting Respiration 16 Pulse 78 Pulse Source Monitor Temp 98.6 F Temp Source Temporal Pulse Oximetry (%) 98 Oxygen Delivery Method simple mask Intake Visit Reasons: 4 M FU Chief Complaint: Headaches Tip Stretcher Required: No Accompanied by: Self Is patient in pain?: No Allergies atorvastatin [From Lipitor] Allergy (Verified 06/09/22 15:27) Unknown ezetimibe [From Zetia] Allergy (Verified 06/09/22 15:27) Unknown Penicillins Allergy (Verified 06/09/22 15:27) Unknown pravastatin [From Pravachol] Allergy (Verified 06/09/22 15:27) Unknown simvastatin [From Zocor] Allergy (Verified 06/09/22 15:27) Unknown Medications metoprolol succinate 50 mg tablet,extended release 24 hr 50 mg PO DAILY 10/22/21 [History Confirmed 06/09/22] amlodipine 5 mg tablet 5 mg PO DAILY #30 tabs 01/28/22 [Rx Confirmed 06/09/22] calcium carbonate 600 mg-vitamin D3 10 mcg (400 unit) capsule 1 cap PO DAILY 03/16/22 [History Confirmed 06/09/22] cranberry 500 mg capsule 500 mg PO DAILY 03/16/22 [History Confirmed 06/09/22] lactobacillus combination no.4 3 billion cell capsule (Probiotic) 3,000 mmu cells PO DAILY 03/16/22 [History Confirmed 06/09/22] multivitamin 1 tab PO DAILY 03/16/22 [History Confirmed 06/09/22] pitavastatin calcium 1 mg tablet (Livalo) 1 mg PO DAILY 03/16/22 [History Confirmed 06/09/22] PFSH Medical History Alcohol use Arthritis Arthritis Back pain Cancer Cardiology follow-up encounter Cluster headache Essential hypertension Former smoker Gastric reflux History of echocardiogram History of IBS History of irregular heartbeat History of pain when walking History of skin cancer History of stress test Hyperlipidemia Hypertension Paroxysmal atrial fibrillation Shortness of breath on exertion Thyroid disease Vertigo Wears glasses Surgical History H/O bilateral hip replacements H/O partial thyroidectomy History of bilateral breast reduction surgery History of cardiac catheterization History of hysteroscopy History of left heart catheterization (10/11/21) History of open reduction and internal fixation (ORIF) procedure Hx laparoscopic cholecystectomy Hx of left cataract extraction Hx of right cataract extraction Family History Father aortic aneurysm Heart disease Sister Seizures Brother coronary stent Hearing loss Heart disease Diabetes Mother Myocardial infarction Anesthesia complication Hearing loss Heart disease Social History household members: none current occupational status: retired Smoking Status: Former smoker alcohol intake: current alcohol intake frequency: a few times a month Alcohol type: wine substance use type: does not use caffeine: Yes Type: carbonated beverages what type of physical activity do you participate in: walking frequency: 1-2 times per week duration: 15-30 minutes/day seatbelt use: always do you feel safe at home: Yes HPI HPI Chief Complaint: Headaches Details: History: Kamryn returns for follow-up visit. She has a history of hypertension, bilateral cataract surgery, paroxysmal atrial fibrillation (she is not on anticoagulation; records indicate that aspirin was prescribed however she does not take this currently), hyperlipidemia, squamous cell skin cancer status post excision, benign thyroid nodule status post resection (she is in a euthyroid state). In October 2021, she began to experience headaches in the left maxillary, periorbital, frontal and temporal head regions that were of gradual onset. Her headaches would begin with an intensity of 3/10 and over a period of 45 minutes reach an intensity of 9/10 then resolve within a total of 1 hour. She did not have any tearing or acute prominent nasal discharge with these episodes though she does have a history of chronic clear nasal discharge. The headaches had a pressure type character. She did not have any associated vision change, numbness, weakness or hearing loss. She has chronic tinnitus due to ear infections in years past. She has been evaluated by a dentist and marine painter and no oral or tooth pathology to account for her symptoms was identified. She has been treated with antibiotics and these were not of benefit. She was evaluated by an ENT specialist and the patient stated she was felt to have cluster headaches. These headaches occurred daily and would occur around the same time of day every day though, on some days, she had later recurrence of the headaches in the evening. She denied having any significant headaches prior to October 2021. She had resolution of these headaches after about 1 month and subsequently only mild frontal headaches that occurred about once every 1 to 2 weeks and lasted less than 1 day each. These headaches have subsided and she has not had any significant headaches within recent months. She has not experienced photophobia, phonophobia or nausea with any of her above headaches. She is unaware of any triggers for the above described headaches. She had experienced some positional equilibrium and a spacey feeling. The positional disequilibrium would occur with position change from the lying to the sitting position; she subsequently had some blood pressure medication change (dose reduction of losartan) and this was of benefit in reducing the frequency of her positional disequilibrium and spacey feeling. Chewing food, drinking or talking or wind blowing across her face have not triggered her pain. Physical Exam: Neuro: The patient is awake and alert and responds appropriately; speech is fluent; right pupil is 2.5 mm, round and reactive to light and left pupil is 2 mm round and reactive to light (I suspect that this anisocoria is a postsurgical phenomenon from her prior bilateral cataract surgeries); no afferent pupillary defect is noted Neck: No bruits Heart: Regular rate and rhythm Supplemental Info Cardiac stress test (09/30/2021): Abnormal exercise myocardial perfusion stress test at a low workload with basal and mid anterior ischemia. Preserved ejection fraction. Cardiac echo (09/30/2021): Normal LV size. Left ventricular systolic function is normal. The estimated ejection fraction is 60 %. Stage 1 diastolic dysfunction. Mild (1+) eccentric aortic valve insufficiency. Contrast injection was performed. Cardiac catheterization (10/11/2021): Normal coronary arteries Normal LV size, wall motion,and systolic function EKG (10/22/2021): Sinus tachycardia-occasional ectopic ventricular beat. RSR (V1)-nondiagnostic; nonspecific ST depression and nonspecific T abnormality-nondiagnostic. Abnormal EKG. CBC, BMP, TSH, free T4, magnesium (10/22/2021): Glucose 108 ESR, C-reactive protein, creatinine (01/27/2022): C-reactive protein 3.98 (mildly elevated) Head MRI (02/02/2022): FINDINGS: There is mild to moderate cerebral atrophy with widening of the extra-axial spaces and ventricular dilatation. There are a limited number of small white matter hyperintensities, distributed throughout the deep white matter tracts of the cerebral hemispheres, consistent with mild chronic white matter ischemic changes. Normal T2* images of the brain without demonstrated susceptibility artifact. There is no demonstrated hemosiderin stain. There is no evidence for recent intracranial ischemia or other cause of cytotoxic edema on diffusion weighted imaging (DWI). No focal parenchymal lesions or abnormal enhancement is seen. Normal bilateral basal ganglia. Normal thalami. There is no extra-axial fluid accumulation. Normal flow voids within the major intracranial circulation suggesting patency by spin echo criteria. Normal venous enhancement. There is no enhancing intra-axial or extra-axial abnormality. Normal sella turcica, pituitary gland, infundibular stalk, optic chiasm and hypothalamus. Normal tectal plate and pineal gland. Normal midbrain, curly and medulla. Normal cerebellum. Normal basal cisterns. Normal bilateral temporal bones. Normal bilateral internal auditory canals. No demonstrated orbital abnormality, within the constraints of a routine brain study. Normal visualized paranasal sinuses. Normal calvarium and skull base. Normal visualized soft tissue structures. Normal visualized upper cervical spine. IMPRESSION: 1. Chronic ischemic and involutional changes of the brain, as described above. These images were reviewed on 06/09/2022): Mild diffuse age-related cerebral atrophy is noted. Mild bilateral periventricular and subcortical white matter chronic small vessel ischemic disease is n oted. A right maxillary sinus mucosal retention cyst is noted. Coding Level of Care Code Off vis,est,level 2 Diagnoses Cluster headaches G44.009 Assessment and Plan Assessment and Plan (1) Cluster headaches: Status: Resolved Plan Details Additional Comments: I suspect that the daily brief, severe headaches that the patient experienced in October 2021 were cluster headaches. These resolved after about 1 month and for period of time she experienced only occasional mild frontal headaches for which she did not feel the need to take any medication. She has not had any significant headaches within recent months. She is neurologically stable. Her head MRI reveals asymptomatic age-related changes (mild diffuse cerebral atrophy and mild bilateral periventricular and subcortical white matter chronic small vessel ischemic disease); a small asymptomatic right maxillary sinus mucous retention cyst was also noted. -She is neurologically stable. No further neurological work-up is warranted at this time. I will have her return for reassessment on an as-needed basis. If she should have recurrence of her cluster headaches she may return to the office to address treatment options that may include initiation of a calcium channel chanda for headache prophylaxis, trial of Ubrelvy or Nurtec ODT or use of supplemental oxygen for symptomatic therapy during cluster attacks. 06/09/221922 <Electronically signed by Uzair Palacio MD> Date Uzair Palacio MD Cosigner Signature: Date (if applicable) CC: Lakisha Changbernadine Work Phone: Start: 03-21-2022 Hysteroscopy,D&C Symphion (Not Applicable) FLIGHT STEWARD-C Lakisha Spears FLIGHT STEWARD Work Phone: Start: 02-09-2022 End: 02-09-2022 Comments: See Note; NOTES: [facility] [address] [place] [address]. [address] [place] [address] / REHABILITATION SERVICES DISCHARGE SUMMARY MR#: [id number] Acct: [id number] Name: KAMRYN MUÑOZ Rep #: [id number] : 1945 76 From: Krista BEY Referring Dr.: Dr. Larissa Griffiths DO Status: REG RCR Insurance: [employer] [facility] SEE NOTE SELF PAY INSURANCE It has been my pleasure to treat KAMRYN MUÑOZ referred by Dr. Larissa Griffiths DO, with the diagnosis of BPPV Eply Maneuver for a total of 2 visit(s). Discharge Date: 02/09/22 Please see the following information for a summary of their discharge status. Subjective: She has not had any vertigo since her MRI. She has been doing the HEP. Her brain showed some mini strokes but common at her age. She is less stressed since she had the MRI. head pressure Pain Intensity (Out of 10): 2 % Improvement: 98 Objective/Function: VOR X1, VOR X 2, VOR CX, Smooth Pursuit horizontal and vertical normal X 1 min each. FGA: Plan: Head and eyes moving in opposite direction (VOR X 2). 1-2X/ week for test above, VOR progression, balance with vestibular inputs, with HEP Discharge Comments: DC PT to HEP If there are questions or concerns regarding this patient's physical therapy, please feel free to call me at [phone]. Thank you for the referral of this patient. Sincerely, MAIDA Hopkins Balance/Gait/Functional tests - Balance/Special Test Scores Functional Gait Assessment Score: 28 % Disability: 6.6700 CATSIB Score (Max score 120 seconds): 100 Dizziness Score: n <Electronically signed by Krista Ruiz MPT> 02/09/221901 CC: Dr. Larissa Griffiths DO Signed Lakisha Spears Work Phone: Start: 02-02-2022 MRI of brain with contrast FLIGHT STEWARD-C Lakisha Spears FLIGHT STEWARD Work Phone: Start: 02-02-2022 End: 02-02-2022 Comments: See Note; NOTES: [facility] Imaging Services [address] [place] [address] Brain W/WO Contrast MR#: [id number] Acct: [id number] Name: KAMRYN MUÑOZ Rep #: [id number] : 1945 F 76 From: Matt betancourt MD PCP: Dr. Larissa Griffiths DO Status: REG CLI Study: Brain W/WO Contrast Date of Exam: 02/02/22 Exam# [id number] Ordering Dr: Uzair Palacio MD STUDY: MRI BRAIN WITH AND WITHOUT CONTRAST REASON FOR EXAM: Female, 76 years old. Cluster headaches; also, tension or migraine headache TECHNIQUE: Standardized multiplanar fat and water weighted pulse sequences were obtained. IV 20cc dotarem was administered for the contrast portion of the examination. COMPARISON: None. FINDINGS: There is mild to moderate cerebral atrophy with widening of the extra-axial spaces and ventricular dilatation. There are a limited number of small white matter hyperintensities, distributed throughout the deep white matter tracts of the cerebral hemispheres, consistent with mild chronic white matter ischemic changes. Normal T2* images of the brain without demonstrated susceptibility artifact. There is no demonstrated hemosiderin stain. There is no evidence for recent intracranial ischemia or other cause of cytotoxic edema on diffusion weighted imaging (DWI). No focal parenchymal lesions or abnormal enhancement is seen. Normal bilateral basal ganglia. Normal thalami. There is no extra-axial fluid accumulation. Normal flow voids within the major intracranial circulation suggesting patency by spin echo criteria. Normal venous enhancement. There is no enhancing intra-axial or extra-axial abnormality. Normal sella turcica, pituitary gland, infundibular stalk, optic chiasm and hypothalamus. Normal tectal plate and pineal gland. Normal midbrain, curly and medulla. Normal cerebellum. Normal basal cisterns. Normal bilateral temporal bones. Normal bilateral internal auditory canals. No demonstrated orbital abnormality, within the constraints of a routine brain study. Normal visualized paranasal sinuses. Normal calvarium and skull base. Normal visualized soft tissue structures. Normal visualized upper cervical spine. MRI/Brain W/WO Contrast IMPRESSION: 1. Chronic ischemic and involutional changes of the brain, as described above. Electronically Signed: Matt Murray MD at 13:30 EDT Reading Location ID and State: [facility] / [place] , Service support , CC: Dr. Larissa Griffiths DO; Dr. Uzair Palacio MD Card Room Manager: Signed Lakisha Spears Work Phone: Start: 02-01-2022 End: 02-01-2022 Comments: See Note; NOTES: [facility] [address] [place] [address] / REHABILITATION SERVICES INITIAL EVALUATION MR#: [id number] Acct: [id number] Name: KAMRYN MUÑOZ Rep #: [id number] : 1945 76 From: Krista BEY Referring Dr.: Dr. Larissa Griffiths DO Status: REG RCR [facility] SELF PAY INSURANCE Patient's Visit Information KAMRYN MUÑOZ is a 76 year old F referred to Physical Therapy by Dr. Larissa Griffiths DO with a diagnosis of BPPV Eply Maneuver. Date of Evaluation: 02/01/22 Physical Therapist: MAIDA Hopkins - Visit Plan Frequency: 1-2x /Week Duration: 2 Months Plan: Head and eyes moving in opposite direction (VOR X 2). FGA. 1-2X/ week for test above, VOR progression, balance with vestibular inputs, with HEP - Subjective Pt thinks that she has vertigo and has been coming on. She feels it when she moves her head. In bed it is really bad. As soon as she is sitting still and straight she is not too bad. She washed her hair FW and pulled head back she started to be unsteady and dizzy. Has MRI tomm and thinking about cluster migraines. The day before yesterday it was hard and was hard to focus in the morning but was ok by mid day. Things are better toward later in the day. When she gets from bed she feels everything is spinning and she has to hold onto things. Started worse rolling to the R but now it is bad both directions. Not every time that she rolls to the L or R does she get dizzy. The room spinning dizziness last less than 1 minute but it varies. She usually sits down. Sitting in a car does not make her dizzy. Mowing her yard does not make her dizzy. Her balance has decreased with age. Her eyes feel full. The cluster migranines lasted a month and started with pain in her jaw and moved up to her teeth and sinus on the L side to L eye to mormon and head and start gradual and go up 9.... 1 hour to hour and half everyday. Dentist cleared her, Dr Palacios cleared her and sent her to a neurologist for Cluster ST. - Pain head pressure Pain Intensity (Out of 10): 2 - Objective -Hallpike B for dizziness or nystagmus. -Roll test B. CATSIB 100/120. smooth pursuit horizontal good X 30 sec. Smooth pursuit vertical ... had to catch up X 5 seconds. eyes focused and head movement. 2 point eye movements (saccades) .. worse with vertical than horizontal as far as jerky movements. VOR CX (head and eyes move together X 30 seconds horizontal)... feels a little icky. VOR CX Head and eyes move together X 30 seconds vertical..... spacey and feels off... stomach did not feel great - Balance/Special Test Scores CATSIB Score (Max score 120 seconds): 100 Dizziness Score: 26 - Anticipated Interventions Patient/Client Instruction: Educate patient on: Condition, Plan of Care For the Purpose of:: To improve muscle performance and motor function, To improve ability to perform ADL's, To increase tolerance to activity/condition/position, To improve performance and independence with ADL's, To improve ability of physical actions for home/community/work/leisure, To improve gait and locomotor functions, To increase flexibility/ROM, To improve endurance, To improve balance, To improve safety with gait Therapeutic Exercise to Include: Strength training, Balance training, Postural training, Gait and locomotor training, Neuromotor development For the Purpose of:: To improve ability to perform ADL's, To increase tolerance to activity/condition/position, To improve performance and independence with ADL's, To decrease level of supervision to perform tasks, To improve ability of physical actions for home/community/work/leisure, To improve gait and locomotor functions, To improve health of tissue, To decrease soft tissue restriction, To increase flexibility/ROM, To improve balance, To improve safety with gait Functional Training to Include: Gait training For the Purpose of:: To improve gait and locomotor functions Thank you for the opportunity to evaluate your patient. For Medicare and Medicare HMO plans, please review the plan of care and approve it. It will need to be FAXED BACK to us at [phone] for Medicare purposes. For Medicare only, by signing this I certify the plan of care. Please let me know if there are questions or concerns regarding this plan of care. Physician Signature: ___Date: <Electronically signed by Krista Ruiz MPT> 02/01/22 [id number] CC: Dr. Larissa Griffiths DO Signed Lakisha Spears Work Phone: Start: 01-27-2022 End: 01-27-2022 Comments: See Note; NOTES: [facility] [address] [place] [address] OFFICE VISIT Date of Service: 01/27/22 MR#: [id number] Acct: [id number] Name: KAMRYN MUÑOZ Rep #: [id number] : 1945 Provider: Dr. Uzair mcgraw MD Age/Sex: 76/F Location: [facility] Status: Signed Intake Vital Signs 01/27/22 10:48 01/27/22 20:16 01/27/22 20:16 Height 5 ft 4 in Weight: 230 lb BMI 39.4 BP 182/92 H 152/92 H 144/86 H Blood Pressure Location Lt brachial Lt brachial Lt brachial Position Sitting Sitting Standing Respiration 20 H Pulse 99 Pulse Source Monitor Temp 98.6 F Temp Source Temporal Pulse Oximetry (%) 98 Oxygen Delivery Method room air Intake Visit Reasons: FACE PAIN/HEAD Tip Stretcher Required: No Accompanied by: self Is patient in pain?: No Allergies atorvastatin [From Lipitor] Allergy (Verified 01/27/22 10:52) Unknown ezetimibe [From Zetia] Allergy (Verified 01/27/22 10:52) Unknown Penicillins Allergy (Verified 01/27/22 10:52) Unknown pravastatin [From Pravachol] Allergy (Verified 01/27/22 10:52) Unknown simvastatin [From Zocor] Allergy (Verified 01/27/22 10:52) Unknown Medications metoprolol succinate 50 mg tablet,extended release 24 hr 50 mg PO DAILY 10/22/21 [History Confirmed 01/27/22] fluticasone propionate 50 mcg/actuation nasal spray,suspension 1 spray INTRANASAL DAILY #16 g 10/31/21 [Rx Confirmed 01/27/22] isosorbide mononitrate 30 mg tablet,extended release 24 hr 30 mg PO DAILY 01/27/22 [History Confirmed 01/27/22] losartan 25 mg tablet 100 mg PO DAILY tab 01/27/22 [History Confirmed 01/27/22] pitavastatin calcium 1 mg tablet 1 mg PO DAILY 01/27/22 [History Confirmed 01/27/22] PFSH Medical History Alcohol use Arthritis Arthritis Back pain Cancer Essential hypertension Former smoker Gastric reflux History of IBS History of skin cancer Hyperlipidemia Paroxysmal atrial fibrillation Shortness of breath on exertion Thyroid disease Wears contact lenses Surgical History H/O bilateral hip replacements H/O partial thyroidectomy History of bilateral breast reduction surgery History of left heart catheterization (10/11/21) History of open reduction and internal fixation (ORIF) procedure Hx laparoscopic cholecystectomy Hx of left cataract extraction Hx of right cataract extraction Family History Father aortic aneurysm Heart disease Sister Seizures Brother coronary stent Hearing loss Heart disease Diabetes Mother Myocardial infarction Anesthesia complication Hearing loss Heart disease Social History household members: none current occupational status: retired Smoking Status: Former smoker alcohol intake: current alcohol intake frequency: a few times a month Alcohol type: wine substance use type: does not use caffeine: Yes Type: carbonated beverages what type of physical activity do you participate in: walking frequency: 1-2 times per week duration: 15-30 minutes/day seatbelt use: always do you feel safe at home: Yes HPI HPI Details: History: The patient is a 76-year-old right-handed woman with a past medical history of hypertension, bilateral cataract surgery, paroxysmal atrial fibrillation (she is not on anticoagulation; records indicate that aspirin was prescribed however she does not take this currently), hyperlipidemia, squamous cell skin cancer status post excision, benign thyroid nodule status post resection (she is in a euthyroid state) who presents for evaluation of headaches. In October 2021, she began to experience headaches in the left maxillary, periorbital, frontal and temporal head regions that were of gradual onset. The patient's headaches would begin with an intensity of 3/10 and over a period of 45 minutes reach an intensity of 9/10 then resolve within a total of 1 hour. She did not have any tearing or acute nasal discharge with these episodes though she does have a history of chronic clear nasal discharge. The headaches had a pressure type character. She did not have any associated vision change, numbness, weakness or hearing loss. She has chronic tinnitus due to ear infections in years past. She has been evaluated by a dentist and marine painter and no oral or tooth pathology to account for her symptoms was identified. She has been treated with antibiotics and these were not of benefit. She was evaluated by an ENT specialist and the patient states she was felt to have cluster headaches. These headaches occurred daily and would occur around the same time of day every day though, on some days, she had later recurrence of the headaches in the evening. She denies having any significant headaches prior to October 2021. She had resolution of these headaches after about 1 month and subsequently has been experiencing only mild frontal headaches that now occur about once every 1 to 2 weeks and lasts less than 1 day each. She has not experienced photophobia, phonophobia or nausea with any of her above headaches. She is unaware of any triggers for the above described headaches. She has experienced some positional equilibrium and a spacey feeling. The positional disequilibrium would occur with position change from the lying to the sitting position. She has had some blood pressure medication changes recently and her doses of losartan has been reduced and that this has been of some benefit in reducing her positional disequilibrium and spacey feeling though she continues to experience occasional mild episodes of disequilibrium. She has not experienced sharp facial pain. Chewing food, drinking or talking or wind blowing across her face have not triggered her pain. Past Medical History: As above. There is no history of diabetes mellitus, lung disease, stroke, seizure or renal insufficiency. Social History: She does not smoke tobacco. There is no history of alcohol abuse. There is no history of illicit drug use. Family History: The patient's sister has seizures. There is no family history of headache, cerebral aneurysm or stroke. Review of Systems: As above. The patient has not had any recent fever, rash, chest pain or gastrointestinal problems. She has gained 10 pounds over the past year. She has had urinary urgency. She denies having depression or anxiety. Earlier in 2021 she had some shortness of breath. She underwent a cardiac evaluation and a cardiac catheterization was unremarkable. Physical Exam: General: Well-developed, well-nourished female in no acute distress. Neuro: The patient is awake and alert and responds appropriately; speech is fluent; language function is within normal limits Cranial nerves: Right pupil is 3 mm, left pupil is 2.5 mm, both pupils are round and reactive to light; no afferent pupillary defect is noted EOMI; visual messina are full; visual acuity is 20/20 bilaterally ; face is symmetrical; tongue is midline; there are no deficits to pinprick Cerebellar system: No nystagmus or dysmetria Deep tendon reflexes: +2 at the right ankle, knees, triceps bilaterally, right biceps and brachioradialis bilaterally, absent at the left biceps and +1 at the left ankle; plantar responses are downward bilaterally Motor: Strength 5/5 in the biceps bilaterally, abductor pollicis brevis muscles bilaterally, first dorsal interosseous muscles bilaterally, quadriceps bilaterally and foot dorsiflexors bilaterally; no drift Sensory: There are no deficits to soft touch, vibration, or pinprick Gait: Unremarkable HEENT: Normocephalic; atraumatic; tympanic membranes are clear; oropharynx benign; no tenderness is noted over the upper or lower teeth; no tenderness is noted over the temporal or upper periorbital regions bilaterally Neck: No bruits Heart: Regular rate and rhythm Extremities: No cyanosis or edema; dorsalis pedis pulses are +2 bilaterally ROS Const Constitutional: Positive for fatigue and headache(s) Eyes Eyes: Positive for eye pain, Light sensitivity and other (floaters) ENT ENT: Positive for hearing loss, tinnitus and headache(s) Resp Respiratory: Positive for shortness of breath Gastro GI: Positive for constipation Genitourinary-Female: Positive for urinary frequency and urinary urgency Musc Musculoskeletal: Positive for back pain and Arthritis Neuro Neurology: Positive for dizziness and headache(s) Endo Endocrine: Positive for fatigue Supplemental Info Cardiac stress test (09/30/2021): Abnormal exercise myocardial perfusion stress test at a low workload with basal and mid anterior ischemia. Preserved ejection fraction. Cardiac echo (09/30/2021): Normal LV size. Left ventricular systolic function is normal. The estimated ejection fraction is 60 %. Stage 1 diastolic dysfunction. Mild (1+) eccentric aortic valve insufficiency. Contrast injection was performed. Cardiac catheterization (10/11/2021): Normal coronary arteries Normal LV size, wall motion,and systolic function EKG (10/22/2021): Sinus tachycardia-occasional ectopic ventricular beat. RSR (V1)-nondiagnostic; nonspecific ST depression and nonspecific T abnormality-nondiagnostic. Abnormal EKG. CBC, BMP, TSH, free T4, magnesium (10/22/2021): Glucose 108 Coding Level of Care Code Off vis,new,level 4 Diagnoses Cluster headaches G44.009 Tension headache G44.209 Migraine headache G43.909 Assessment and Plan Assessment and Plan (1) Cluster headaches: Status: Acute Orders: Orders: Brain W/WO Contrast Today Serum Creatinine GFR Today Erythrocyte Sed Rate Today CRP Today (2) Tension headache: Status: Acute (3) Migraine headache: Status: Acute Plan Details Other Medications: Changed: From: losartan 25 mg PO DAILY 90 tabs 3RF To: losartan 100 mg PO DAILY Additional Comments: I suspect that the daily brief, severe headaches that the patient experienced in October 2021 were cluster headaches. These resolved about 1 month. She now experiences only occasional mild frontal for which she does not feel the need to take any medication; these headaches occur about once every 1 to 2 weeks and resolve within a day. Her current headaches may be tension headaches or mild migraine headaches. On exam today, she exhibits mild anisocoria. I suspect that this may be a benign postsurgical phenomenon following her cataract surgeries or a benign physiologic anisocoria. - She will be evaluated further with a head MRI. - An ESR, C-reactive protein and serum creatinine will be checked. I will have the patient return for reassessment in 4 months. If she should have recurrence of her cluster headaches she may return to the office to address treatment options that may include initiation of a calcium channel chanda for headache prophylaxis, trial of Ubrelvy or Nurtec ODT or use of supplemental oxygen for symptomatic therapy during cluster attacks. Thank you for this consultation. 01/27/222031 <Electronically signed by Uzair Palacio MD> Date Uzair Singh Signature: Date (if applicable) CC: FLIGHT STEWARDAshok Lakisha Spears Work Phone: Start: 11-03-2021 End: 11-03-2021 Comments: See Note; NOTES: [facility] [address] [place], [place] [address] OFFICE VISIT Date of Service: 11/03/21 MR#: [id number] Acct: [id number] Name: KAMRYN MUÑOZ Rep #: [id number] : 1945 Provider: TIARRA Beltran Age/Sex: 76/F Location: [facility] [place] Status: Signed HPI HPI History of Present Illness Details: This is a 75-year-old female that presents here today for a cardiovascular follow-up. She established with us last month for concerns of hypertension, hyperlipidemia, paroxysmal fibrillation and increased shortness of breath. She did undergo an echocardiogram which demonstrated normal LV function. She did have a stress test which was abnormal however she did undergo a diagnostic heart catheterization which demonstrated normal coronary arteries. PVCs were noted on her testing that she had done. She did restart her metoprolol but she states that this significantly improved with her symptoms. Patient does not have any chest discomfort. She does not have any teeth. She does not have any shortness of breath or fullness. She does not have any arrhythmias that she is aware of. She does not have any lightheadedness, dizziness, near syncope. Intake Vital Signs 11/03/21 08:29 Height 5 ft 4 in Weight: 225 lb BMI 38.6 BP 138/82 H Blood Pressure Location Lt brachial Position Sitting Respiration 18 Pulse 87 Pulse Source Monitor Pulse Oximetry (%) 98 Intake Visit Reasons: 6 wk FU Tip Stretcher Required: No Accompanied by: None Is patient in pain?: No Allergies atorvastatin [From Lipitor] Allergy (Verified 11/03/21 08:29) Unknown ezetimibe [From Zetia] Allergy (Verified 11/03/21 08:29) Unknown Penicillins Allergy (Verified 11/03/21 08:29) Unknown pravastatin [From Pravachol] Allergy (Verified 11/03/21 08:29) Unknown simvastatin [From Zocor] Allergy (Verified 11/03/21 08:29) Unknown Medications calcium citrate-vitamin D3 1 ea PO DAILY 10/05/16 [History Confirmed 11/03/21] bvesswup-vqy-SH-lycopen-lute in 1 ea PO DAILY 10/05/16 [History Confirmed 11/03/21] cranberry extract 500 mg tablet 500 mg PO QDAY tab 09/28/17 [History Confirmed 11/03/21] lactobacillus combination no.9 4 billion cell capsule 4,000 mmu cells PO DAILY 05/13/19 [History Confirmed 11/03/21] pitavastatin calcium 1 mg tablet 1 mg PO DAILY 05/13/19 [History Confirmed 11/03/21] metoprolol succinate 50 mg tablet,extended release 24 hr 50 mg PO DAILY 10/22/21 [History Confirmed 11/03/21] fluticasone propionate 50 mcg/actuation nasal spray,suspension 1 spray INTRANASAL DAILY #16 g 10/31/21 [Rx Confirmed 11/03/21] aspirin 325 mg tablet 325 mg PO DAILY 11/03/21 [History Confirmed 11/03/21] losartan 100 mg tablet 100 mg PO DAILY #90 tab 11/03/21 [Rx Confirmed 11/03/21] PFSH Medical History (Updated 10/22/21 @ 15:52 by Yelena Sandoval) Alcohol use Arthritis Arthritis Back pain Cancer Essential hypertension Former smoker Gastric reflux History of IBS History of skin cancer Hyperlipidemia Paroxysmal atrial fibrillation Shortness of breath on exertion Thyroid disease Wears contact lenses Surgical History (Updated 10/11/21 @ 10:09 by Corrina Clark) H/O bilateral hip replacements H/O partial thyroidectomy History of bilateral breast reduction surgery History of left heart catheterization (10/11/21) History of open reduction and internal fixation (ORIF) procedure Hx laparoscopic cholecystectomy Hx of left cataract extraction Hx of right cataract extraction Family History Father aortic aneurysm Sister Seizures [...] ROS Const Const: Negative for fatigue, weakness, headache(s), frequent falls, excessive sweating, weight gain or weight loss Eyes Eyes: Negative for blind spots, loss of peripheral vision, transient loss of vision, blurry vision, change in vision or double vision ENT ENT: Negative for headache(s), dizziness, tinnitus, Nosebleed/epistaxis or balance problems Cardio Chest Pain: No Palpitations: No Edema: None Muscle aches with walking: None Resp Respiratory: Negative for SOB with activity, SOB at rest, SOB orthopnea SOB lying down or Cough GI GI: Negative nausea, vomiting, heartburn, bloating, vomiting blood/hematemesis, bright, red blood in stools or black,tarry stools : Negative for hematuria Musc Musc: Negative for muscle aches/ myalgia, muscle weakness, joint pain or balance problems Skin Skin: Negative rash or wounds Neuro Neuro: Negative for dizziness, lightheadedness, near syncope, syncope, orthostatic symptoms, frequent falls, headache(s), weakness, confusion, memory loss, restless legs, blurry vision or double vision Marquise Hematologic/Lymphatic: Negative for easy bleeding or easy bruising Endo Endo: Negative for fatigue, cold intolerance, heat intolerance or excessive sweating Psych Psych: Negative for anxiety or depression Allergy Allergy/Immunology: Negative for rash Cardiology Exam Const Appearance: cooperative, healthy appearing, comfortable, no acute distress and well developed Orientation: alert, awake and oriented x3 Head Head: normal to inspection Ears: hearing grossly normal bilaterally Nose: external nose normal Face and Sinus: face symmetric Mouth: oral mucosae normal, lip normal and moist mucous membranes Eyes General: appearance normal, both eyes and all related structures Eyelids: eyelids normal Conjunctivae: conjunctivae normal Pupils: PERRL EOM: EOM intact bilaterally Neck Neck: normal visual inspection and trachea midline; Negative no JVD Carotids: Negative bruit Chest Chest inspection: normal inspection of the chest Auscultation: Bilateral: Clear to Auscultation Cardio Palpation: normal PMI Rate: regular rate Rhythm: regular rhythm Heart sounds: S1 normal and S2 normal; Negative rub, gallop or murmur GI GI: soft, no hepatosplenomegaly and bowel sounds present Neuro General: patient alert, patient awake, patient oriented x3 and CN's II-XI intact bilaterally Extremities Pulses: Normal: Right Posterior Tibial Pulse, Left Posterior Tibial Pulse, Right Radial Pulse and Left Radial Pulse Lower Extremity Edema: None: Bilateral Psych Psychological: normal affect Supplemental Info Supplemental Information Cardiac cath 2017: 1. Normal left main coronary artery. 2. Left anterior descending artery with no high-grade stenosis. 3. Left circumflex artery, which is nondominant with no significant stenosis. 4. Right coronary artery, which is dominant with no significant stenosis. 5. Preserved ejection fraction. Cardiac cath 2021: Normal coronary arteries Normal LV size, wall motion,and systolic function RECOMMENDATIONS Medical therapy DESCRIPTION OF PROCEDURE The patient arrived to the procedure lab. The risks and benefits of the procedure as well as a full description of our services here and current unavailability of surgical backup were fully explained to the patient and/or their significant other prior to the catheterization. The Timeout was completed, verifying the correct patient and procedure. The patient's procedural site was prepped and draped in the usual fashion. Local anesthetic was given subcutaneously to right radial region with Lidocaine 2%. Using a modified Seldinger technique, arterial access was obtained via the right radial artery, a 6Fr sheath was inserted. Left Coronary Artery selective angiography was performed in multiple views using a 5 Fr. 4.0 [place] catheter. Right Coronary Artery selective angiography was then performed in multiple views using a 5 Fr. 4.0 [place] catheter. Left Ventriculography was performed in BUSTILLOS projection using a 5 Fr. Pigtail catheter. LV to AO pullback pressures were then recorded.The arterial sheath was pulled and a TR Band was applied for hemostasis CORONARY ANGIOGRAPHY DOMINANCE: Co- Dominant LEFT HEART ASSESSMENT Normal LV wall motion Normal Left Ventricular systolic function LEFT MAIN: Angiographically normal LEFT ANTERIOR DESCENDING ARTERY: No significant disease noted CIRCUMFLEX ARTERY: Mild luminal irregularities RIGHT CORONARY ARTERY: Angiographically normal Echo 2021: Normal LV size. Left ventricular systolic function is normal. The estimated ejection fraction is 60 %. Stage 1 diastolic dysfunction. Mild (1+) eccentric aortic valve insufficiency. Contrast injection was performed. Exercise myocardial perfusion stress test 2021: 75-year-old lady with a history of exertional shortness of breath. Stress protocol: Resting EKG demonstrates normal sinus rhythm with a rate of 87 bpm normal intervals are noted resting blood pressure is 146/86 mmHg. The patient exercised according to regular Dexter protocol for total duration of 3 minutes and 34 seconds. The maximum heart rate attained was 146 bpm which was 100% of maximal particular heart rate the maximum workload was 5.9 metabolic equivalents. At rest there were no ST or T wave changes noted to suggest abnormal flow reserve at peak exercise upsloping ST changes were noted with did not meet the criteria for ischemia. No clinical angina was noted the patient was noted to be short of breath. The peak blood pressure was 150/78 mmHg. Myocardial perfusion protocol. 14.5 mCi of technetium 99m sestamibi was injected at rest. The patient exercised according to regular Dexter protocol for 3-1/2 minutes and at peak exercise 44.5 mCi of technetium 99m sestamibi was injected stress images were obtained stress and rest images were reconstructed and compared in the short axis vertical long and horizontal long axis. Gated images were also obtained per Perfusion SPECT analysis: Review of the stress images demonstrate reduced uptake of tracer noted in the proximal and mid anterior wall with the apex being well perfused. The rest of the escobedo are normally perfused. The resting images demonstrate normal perfusion in all the rest of the escobedo. The gated ejection fraction is noted to be 79%. Conclusion: Abnormal exercise myocardial perfusion stress test at a low workload with basal and mid anterior ischemia. Preserved ejection fraction. Labs: No Data to Display Diagnostics: Electrocardiogram Echocardiogram Stress Test NM Stress Test Cardiac Catheterization Chest X-Ray Venous Doppler Study Pulmonary: No Data to Display Assessment and Plan Assessment and Plan (1) Paroxysmal atrial fibrillation: Status: Chronic Plan - TIARRA Laws: Patient not had symptomatic recurrence. She will continue with her current dose of beta-chanda. She is not anticoagulated. She will continue with her aspirin. If she has any recurrence we will need to reconsider anticoagulation. (2) Essential hypertension: Status: Acute Plan - Cassandra MAYEN PA: Blood pressure is well controlled on current medications, we do not recommend any changes at this time. (3) Premature ventricular contractions: Status: Acute Plan - TIARRA Laws: These have significantly improved with restarting her metoprolol. Patient will continue with current medication. Plan Details Other Medications: Refilled: losartan 100 mg PO DAILY 90 tabs 3RF Follow Up: 9 Months ([facility]UTTER/MMM) Coding Level of Care Code Off vis,est,level 3 Diagnoses Paroxysmal atrial fibrillation I48.0 Essential hypertension I10 Premature ventricular contractions I49.3 Coding Level of Care Code Off vis,est,level 3 Diagnoses Paroxysmal atrial fibrillation I48.0 Essential hypertension I10 Premature ventricular contractions I49.3 11/03/21 0912 <Electronically signed by Cassandra Ewing> Date Cassandra MAYEN Cosigner Signature: Date (if applicable) CC: FLIGHT STEWARD-[place] Lakisha Spears Work Phone: Start: 10-31-2021 End: 10-31-2021 Comments: See Note; NOTES: [facility] [address] [place], [place] [id number] OFFICE VISIT Date of Service: 10/31/21 MR#: [id number] Acct: [id number] Name: BAOOsielKAMRYN MANUELA Rep #: [id number] : 1945 Provider: TIARRA serrano Age/Sex: 76/F Location: [facility] [place] Status: Signed Intake Vital Signs 10/31/21 10:23 BP 122/84 H Blood Pressure Location Lt brachial Position Sitting Respiration 16 Pulse 93 Pulse Source Monitor Temp 97.3 F L Temp Source Temporal Pulse Oximetry (%) 99 Oxygen Delivery Method room air Intake Visit Reasons: CONCERN FOR SINUS INFECTION Chief Complaint: back pain Allergies atorvastatin [From Lipitor] Allergy (Verified 09/21/21 08:58) Unknown ezetimibe [From Zetia] Allergy (Verified 09/21/21 08:58) Unknown Penicillins Allergy (Verified 09/21/21 08:58) Unknown pravastatin [From Pravachol] Allergy (Verified 09/21/21 08:58) Unknown simvastatin [From Zocor] Allergy (Verified 09/21/21 08:58) Unknown [facility] Medical History (Updated 10/22/21 @ 15:52 by Yelena Sandoval) Alcohol use Arthritis Arthritis Back pain Cancer Essential hypertension Former smoker Gastric reflux History of IBS History of skin cancer Hyperlipidemia Paroxysmal atrial fibrillation Shortness of breath on exertion Thyroid disease Wears contact lenses Surgical History (Updated 10/11/21 @ 10:09 by Corrina Clark) H/O bilateral hip replacements H/O partial thyroidectomy History of bilateral breast reduction surgery History of left heart catheterization (10/11/21) History of open reduction and internal fixation (ORIF) procedure Hx laparoscopic cholecystectomy Hx of left cataract extraction Hx of right cataract extraction Family History Father aortic aneurysm Sister Seizures [...] do you feel safe at home: Yes HPI HPI Chief Complaint: back pain Details: KAMRYN MUÑOZ, is a 76 F who presents to the office today for evaluation and concern of sinus pain, pressure. Patient endorses symptoms ongoing for 2 weeks. She states initially she noted intermittent discomfort over the left side of her face jawline and into the left ear. She states most recently it seems to be more persistent. Currently rates her discomfort 3 out of 10 on the pain scale described as aching over the left upper jaw dentition and maxillary sinus region. She denies chest pain, shortness of breath or abdominal pain. No headache. No vision changes. No neck or back pain. No pain radiating into the left arm. Patient does have a history of hypertension and A. fib for which she takes medication. She also has a penicillin allergy which causes swelling. Patient states she followed up with her dentist as she was concerned for possible dental abscess however was told that she did not have a dental abscess. She was initiated on clindamycin antibiotic and has taken this for the last 6 days. She has 1 day left and will finish the prescription tomorrow. She states she also has had a full cardiac work-up recently and all of her testing has returned negative as well for anything concerning. She denies any injury, fall or trauma. Denies lightheadedness or dizziness. Denies headache. Denies other associated symptoms or modifying factors. She endorses that her cat and dog both had tumors which she states she had mentioned to her dentist but was told that this was not likely. Otherwise patient has no further complaints. She presents for evaluation. ROS Const Constitutional: No anorexia, body ache, chills, excessive sweating, fatigue, fever(s), headache(s), night sweats, weakness, weight change or abnormal sleep pattern Eyes Eyes: No blurry vision, change in vision, visual disturbances or eye pain ENT ENT: Positive for ear pressure, sinus pressure, sinus pain and facial pain; No abnormal hearing, ear or mastoid pain, headache(s), difficulty swallowing, hoarseness, lip swelling, neck pain, sore throat, tongue swelling or throat swelling Resp Respiratory: No cough, hemoptysis, shortness of breath or wheezing Cardio Cardiology: No chest pain at rest, chest pain with exertion, excessive sweating, shortness of breath, dyspnea on exertion, radiating jaw, neck or arm pain or palpitations Gastro GI: No abdominal pain, constipation, diarrhea, difficulty swallowing, nausea/dyspepsia or vomiting Genitourinary-Female: No difficulty urinating Musc Musculoskeletal: No abnormal gait, joint pain, back pain, joint swelling, muscle weakness, neck pain, numbness or tingling Skin Skin: No rash Neuro Neurology: No abnormal gait, abnormal hearing, abnormal speech, confusion, unsteady gait/balance, dizziness, weakness, headache(s), lack of coordination, memory loss, numbness, tingling, visual disturbances, fainting, tremor(s) or paralysis Psych Psychiatric: No abnormal sleep pattern, No anxiety, No confusion, No depression and No memory loss Endo Endocrine: No change in body appearance, excessive sweating, fatigue or weight change Aller/Imm Allergy/Immunologic: No lip swelling, throat swelling, tongue swelling, hives or wheezing Marquise/Lymp Hematologic/Lymphatic: No easy bleeding or easy bruising Exam Const General: cooperative, comfortable, no acute distress, well developed and well hydrated Nutritional Appearance: well nourished Orientation: alert, oriented x3 and oriented to person [facility] Head: normal to inspection, normocephalic and atraumatic Ears: hearing grossly normal bilaterally Nose: external nose normal Face and sinus: normal facial exam and sinus tenderness (Left maxillary sinus tender on percussion) maxillary Mouth: oral mucosae normal, tongue normal, oropharynx normal, moist mucous membranes, no drooling and no muffled voice Teeth and gingiva: dentition normal and gingiva normal Throat: posterior oropharynx normal, uvula midline and no uvular edema Eyes Visual Messina: normal visual messina by confrontation Alignment and Position: alignment normal Periorbital: periorbital findings normal Eyelids: eyelids normal Conjunctivae: conjunctivae normal Sclera: sclerae normal Pupils: PERRL EOM: EOM intact bilaterally Neck Neck: normal visual inspection, full ROM, no lymphadenopathy, no meningeal signs, trachea midline and supple Chest Chest palpation inspection: normal inspection of the chest Resp Effort Inspection: normal respiratory effort, able to speak in complete sentences, symmetric chest movement and no cough Auscultation: Bilateral: Clear to Auscultation Cardio Rate: regular rate Rhythm: regular rhythm Heart Sounds: S1 normal and S2 normal GI Inspection: normal to inspection Musc Musculoskeletal: No joint tenderness, joint redness or joint warmth Cervical Spine: normal cervical lordosis Thoracic/Lumbar Spine: thoracic and lumbar spine normal to inspection Skin General: no rashes or lesions noted Neuro General: patient alert, patient awake, patient oriented x3, gait normal, moves all extremities, no meningeal signs, no focal motor deficits and CN's II-XI intact bilaterally Cranial Nerves: CN's II-XI intact bilaterally Cognition: normal cognition Speech: speech normal Gait: normal gait Motor: muscle tone normal throughout Sensory Exam: no sensory deficits noted Extrem General: normal to inspection, full ROM, capillary refill normal and no clubbing, cyanosis or edema Psych Mental Status: mental status grossly normal Affect: normal affect Speech and Movement: speech and movement normal Attitude: cooperative Coding Level of Care Code Off vis,est,level 3 Assessment and Plan Plan Details Other Medications: New: azithromycin (Zithromax TRI-SADI) For 500 mg dose pack: take 500 mg once daily for 3 days PO 6 tabs 0RF fluticasone propionate 50 mcg/actuation (Flonase Allergy Relief) administer into each nostril 1 spray intranasal DAILY 16 grams 0RF Additional Comments: Nontoxic-appearing 76-year-old female presents to the now clinic for evaluation of the above complaint. Patient currently taking clindamycin for concern of sinusitis without significant relief. She is requesting a change in antibiotic. Patient does have a penicillin allergy causing swelling of her throat. Denies any head injury or loss of consciousness. Denies any concern for cardiac problems in endorses recently undergoing a full cardiac work-up that was negative. Also patient had followed up with her dentist who ruled out a dental abscess however started her on clindamycin. Patient denies other associated symptoms or modifying factors. She did mention concerned that her cat and dog both had a tumor which she had mentioned to her dentist who felt that this was not likely. Patient however was instructed to follow-up closely with her primary care provider with her concerns to further evaluate this as necessary. In the meantime we will prescribe course of Zithromax and Flonase. She may take Tylenol for discomfort. We discussed fluid intake as well as coolmist vaporizer in her room at nighttime. Signs and symptoms for which to return as well as those for which to seek ER care are discussed. There is no evidence of rash or zoster at this time. Her questions are answered. She verbalizes understanding and agreement with plan. 10/31/21 1140 <Electronically signed by Renetta MAYEN> Date Renetta MAYEN Cosigner Signature: Date (if applicable) CC: Lakisha Spears Work Phone: Start: 10-11-2021 End: 10-11-2021 Comments: See Note; NOTES: [facility] Imaging Services [address] [place] [address] Cardiac Cath Diagnostic MR#: [id number] Acct: [id number] Name: KAMRYN MUÑOZ Rep #: [id number] : 1945 75 From: Kp Lopez MD PCP: REBA Vasquez Status:REG [facility] Patient Name: KAMRYN MUÑOZ Study Date: 10/11/2021 Performing: Kp Lopez MD Ht: 64.17 inches 163 cm : 1945 Wt: 224.87 lbs 102 kg Age: 75 Gender: female BSA: 2.06 PROCEDURE(S) PERFORMED DC01-(02136)LHC/COR/LV CLINICAL PROFILE AND INDICATIONS Indications: Suspected CAD Heart Failure: None Stress/Imaging Date: 10/02/20ress Test with SPECT MPI: Positive Intermediate Risk CAD Presentations: Symptom unlikely to be ischemic. CONCLUSIONS Normal coronary arteries Normal LV size, wall motion,and systolic function RECOMMENDATIONS Medical therapy DESCRIPTION OF PROCEDURE The patient arrived to the procedure lab. The risks and benefits of the procedure as well as a full description of our services here and current unavailability of surgical backup were fully explained to the patient and/or their significant other prior to the catheterization. The Timeout was completed, verifying the correct patient and procedure. The patient's procedural site was prepped and draped in the usual fashion. Local anesthetic was given subcutaneously to right radial region with Lidocaine 2%. Using a modified Seldinger technique, arterial access was obtained via the right radial artery, a 6Fr sheath was inserted. Left Coronary Artery selective angiography was performed in multiple views using a 5 Fr. 4.0 [place] catheter. Right Coronary Artery selective angiography was then performed in multiple views using a 5 Fr. 4.0 [place] catheter. Left Ventriculography was performed in BUSTILLOS projection using a 5 Fr. Pigtail catheter. LV to AO pullback pressures were then recorded.The arterial sheath was pulled and a TR Band was applied for hemostasis CORONARY ANGIOGRAPHY DOMINANCE: Co- Dominant LEFT HEART ASSESSMENT Normal LV wall motion Normal Left Ventricular systolic function LEFT MAIN: Angiographically normal LEFT ANTERIOR DESCENDING ARTERY: No significant disease noted CIRCUMFLEX ARTERY: Mild luminal irregularities RIGHT CORONARY ARTERY: Angiographically normal COMPLICATIONS No Complications PROCEDURE MEDICATIONS Versed 1 mg IV Fentanyl 50 mcg IV Oxygen: 2 L/min via nasal cannula Heparin given IA 10/11/2021 09:48:56 Verapamil 2.5mg, Ntg 100mcgs, 3000 units of Heparin given IA 10/11/2021 09:48:56 SUMMARY OF HEMODYNAMIC DATA Time AIR REST ECG 08:33:02 ECG 09:32:19 AO 144/79 (110) SA 09:50:51 LV 143/0, 9 09:56:26 LV 152/2, 10 09:56:32 LV 146/7, 15 09:57:15 LVp 160/8, 16 09:57:18 AOp 150/65 (102) 09:57:23 Signed By Kp Lopez MD On 10/11/2021 10:05:05 AM Kp Lopez MD 10/11/21 1005 Date Kp Singh Signature: Date (if indicated) CC: FLIGHT STEWARD-C Lakisha Spears; Dr. Kp Lopez MD Date Dictated: 10/11/21939 Date Transcribed: 10/11/21956 Card Room Manager: CO Signed Shelia Oleary MD Work Phone: Start: 09-30-2021 End: 09-30-2021 Comments: See Note; NOTES: [facility] [address] [address] MR#: [id number] Acct: [id number] Name: KAMRYN MUÑOZ Rep #: [id number] : 1945 75 From: Kp Lopez MD Primary Care: Lakisha Ciesa, FLIGHT STEWARD-C Status: REG CLI Referring Dr: Cassandra Franco Sex: F C Stress Test Report Exercise myocardial perfusion stress test. 75-year-old lady with a history of exertional shortness of breath. Stress protocol: Resting EKG demonstrates normal sinus rhythm with a rate of 87 bpm normal intervals are noted resting blood pressure is 146/86 mmHg. The patient exercised according to regular Dexter protocol for total duration of 3 minutes and 34 seconds. The maximum heart rate attained was 146 bpm which was 100% of maximal particular heart rate the maximum workload was 5.9 metabolic equivalents. At rest there were no ST or T wave changes noted to suggest abnormal flow reserve at peak exercise upsloping ST changes were noted with did not meet the criteria for ischemia. No clinical angina was noted the patient was noted to be short of breath. The peak blood pressure was 150/78 mmHg. Myocardial perfusion protocol. 14.5 mCi of technetium 99m sestamibi was injected at rest. The patient exercised according to regular Dexter protocol for 3-1/2 minutes and at peak exercise 44.5 mCi of technetium 99m sestamibi was injected stress images were obtained stress and rest images were reconstructed and compared in the short axis vertical long and horizontal long axis. Gated images were also obtained per Perfusion SPECT analysis: Review of the stress images demonstrate reduced uptake of tracer noted in the proximal and mid anterior wall with the apex being well perfused. The rest of the escobedo are normally perfused. The resting images demonstrate normal perfusion in all the rest of the escobedo. The gated ejection fraction is noted to be 79%. Conclusion: Abnormal exercise myocardial perfusion stress test at a low workload with basal and mid anterior ischemia. Preserved ejection fraction. 09/30/211316 <Electronically signed by Kp Lopez MD> Date Kp Lopez MD CC: FLIGHT STEWARD-C Lakisha Spears; TIARRA Franco Date Dictated: 09/30/211312 Date Transcribed: 09/30/211312 Card Room Manager: CO Signed Lakisha Spears YARD CLERK Work Phone: Start: 09-30-2021 End: 01-20-2022 Comments: See Note; NOTES: [facility] [address] [place] [address] Echo Complete W/ Contrast 09/30/21 0824 MR#: [id number] Acct: [id number] Name: KAMRYN MUÑOZ Rep #: [id number] : 1945 75 From: Kp Lopez MD Attending Dr: TIARRA Tucker Status: REG CLI Ordering Dr: Cassandra Franco Date: 09/12 Location: [facility] Sex: F C Admitted: Reason For Study: DYSPNEA Procedure This was a 2D Doppler, Color Flow transthoracic echocardiogram. The study was technically difficult. Contrast injection was performed. Exam performed in department. Left Ventricle Normal LV size. Left ventricular systolic function is normal. The estimated ejection fraction is 60 %. Stage 1 diastolic dysfunction. No regional wall motion abnormalities noted. Right Ventricle Normal RV size. Normal systolic function. Atria Normal left atrium. Normal right atrium. Mitral Valve Normal mitral valve. Tricuspid Valve Normal tricuspid valve. Mild (1+) tricuspid valve insufficiency. Aortic Valve Trisinus/trileaflet aortic valve. Mild (1+) eccentric aortic valve insufficiency. Pulmonic Valve Normal pulmonic valve. Great Vessels Normal aortic root. The pulmonary artery is normal size. Normal inferior vena cava. Pericardium/Pleural No pericardial effusion. Medication Diluted definity 2.5ml given slow IV push to enhance endocardial definition. MMode/2D Measurements Calculations RVDd: 2.9 cm Ao root diam: 3.1 cm LAV(MOD-bp): 43.2 ml LAV(MOD-bp) Indexed: 21.1 ml/m2 LAV(MOD-sp2): 46.1 ml LAV(MOD-sp4): 40.1 ml SV(MOD-sp4): 45.2 ml LVAd ap4: 24.5 cm2 LVAd ap2: 24.9 cm2 LVLd ap4: 7.3 cm LVLd ap2: 7.4 cm EDV(MOD-sp4): 67.8 ml EDV(MOD-sp2): 72.3 ml EDV(sp4-el): 69.8 ml EDV(sp2-el): 71.4 ml LVAs ap4: 12.5 cm2 LVAs ap2: 14.7 cm2 LVLs ap4: 6.1 cm LVLs ap2: 6.2 cm ESV(MOD-sp4): 22.6 ml ESV(MOD-sp2): 30.3 ml ESV(sp4-el): 21.7 ml ESV(sp2-el): 29.6 ml EF(MOD-sp4): 66.6 % EF(MOD-sp2): 58.1 % EF(sp4-el): 68.8 % SV(MOD-sp2): 42.0 ml SV(sp4-el): 48.1 ml LA A4 area: 16.2 cm2 LA dimension(2D): 3.2 cm RA A4 area: 13.4 cm2 Doppler Measurements Calculations MV E max william: 73.8 cm/sec Lat Peak E' William: 7.4 cm/sec Med Peak E' William: 8.0 cm/sec MV A max william: 79.9 cm/sec E/E' lat: 10.0 E/E' med: 9.2 MV E/A: 0.92 Ao V2 max: 167.5 cm/sec AI max william: 472.8 cm/sec LV V1 max: 124.2 cm/sec Ao max P.2 mmHg AI max P.4 mmHg LV V1 max P.2 mmHg AI dec slope: 349.0 cm/sec2 AI P1/2t: 396.7 msec PA V2 max: 158.7 cm/sec TR max william: 218.4 cm/sec TR max P.1 mmHg ECHO/Echo Complete W/ Contrast Interpretation Summary Normal LV size. Left ventricular systolic function is normal. The estimated ejection fraction is 60 %. Stage 1 diastolic dysfunction. Mild (1+) eccentric aortic valve insufficiency. Contrast injection was performed. _ Ordering Physician: Cassandra Franco Referring Physician: LAKISHA SPEARS Performed By: Kim Langston, TASIA, RVT 09/30/21 1021 Date Kp Lopez MD CC: FLIGHT STEWARD-C Lakisha Spears; TIARRA Franco Date Dictated: 09/30/21 0824 Date Transcribed: 09/30/21 102 Card Room Manager: Signed Lakisha Spears CNP Work Phone: Start: 09-29-2021 End: 09-29-2021 Comments: See Note; NOTES: [facility] Imaging Services [address] [place] [address] SCRN MAMM (CAD)W/TYLOR BILAT MR#: [id number] Acct: [id number] Name: KAMRYN MUÑOZ Rep #: [id number] : 1945 F 75 From: Wayne blevins MD PCP: REBA Vasquez Status: REG CLI Study: SCRN MAMM (CAD)W/TYLOR BILAT Date of Exam: 09/11 06/02 Exam# [id number] Ordering Dr: Lakisha Spears NP MAMMOGRAPHY - BILATERAL SCREENING REASON FOR EXAM: Female, 75 years old. Routine annual screening examination. PERTINENT HISTORY: Grandmother with breast cancer. TECHNIQUE: Digital bilateral breast tylor (3D mammographic acquisition) in the CC and MLO projections. 2-D mediolateral oblique (MLO) and craniocaudad (CC) views of both breasts were obtained. CAD: Full Field Digital Mammography with Computer Added Detection was performed. COMPARISON: Comparison is made with prior study dated 09/28/2020 and 09/27/2019. FINDINGS: Breast Composition: The breasts are almost entirely fatty. There are no dominant masses or suspicious calcifications. Stable bilateral macrocalcifications. No other significant abnormalities are identified. There has been no significant change since the prior study. BI/SCRN MAMM (CAD)W/TYLOR BILAT IMPRESSION: Stable bilateral screening mammogram. Yearly follow-up mammogram recommended. (A) ASSESSMENT CATEGORY: BIRADS Category 2: Benign. A letter regarding these results will be sent to the patient by the facility within 30 days. Approximately 10% of breast cancers are not detected by mammography. A normal mammogram should not delay biopsy of a clinically suspicious abnormality. [id number] Electronically Signed: Wayne Rabago MD at 12:11 EST , Service support , CC: REBA Spears Card Room Manager: Signed Lakisha Spears YARD CLERK Work Phone: Start: 09-21-2021 End: 09-21-2021 Comments: See Note; NOTES: [facility] Imaging Services [address] [place] [address] Chest PA and Lateral MR#: [id number] Acct: [id number] Name: KAMRYN MUÑOZ Rep #: [id number] : 1945 F 75 From: Mono Sharif DO PCP: REBA Vasquez Status: REG CLI Study: Chest PA and Lateral Date of Exam: 09/21/21 Exam# [id number] Ordering Dr: Cassandra Franco PA PA STUDY: X-RAY CHEST REASON FOR EXAM: Female, 75 years old. [place]. TECHNIQUE: PA and lateral views of the chest. 10/04/2016 COMPARISON: None. FINDINGS: The lungs are clear and expanded. There is no demonstrated pleural abnormality. Normal size heart. Normal mediastinum and jessica. Normal visualized pulmonary arteries. Normal visualized aortic arch and descending thoracic aorta. No osseous changes. There is no demonstrated abnormality of the visualized soft tissue structures of the upper abdomen. RAD/Chest PA and Lateral IMPRESSION: No acute cardiopulmonary disease or major interval change. Electronically Signed: Mono Sharif DO at 21:10 EST Tel [phone], Service support , CC: REBA Spears; TIARRA Franco Card Room Manager: Signed Lakisha Spears CNP Work Phone: Start: 09-21-2021 End: 09-28-2021 Comments: See Note; NOTES: [facility] [address] [place] [address] 12 Lead EKG performed by [facility] 09/21/21922 MR#: [id number] Acct: [id number] Name: KAMRYN MUÑOZ Rep #: [id number] : 1945 75 From: Cassandra MAYEN Attending Dr: TIARRA Tucker Status: DEP AMB Ordering Dr: Cassandra Franco Date: 09/11 10/02 [place] [facility] [place] Sex: F C Admitted: BMS/12 Lead EKG performed by [facility] ECG Report Interpretation Si nus Rhythm WITHIN NORMAL LIMITSElectronically signed on 09/28/2021 at 10:20 by Kp Lopez Software Version [id number] 09/28/21 1022 Date Cassandra MAYEN CC: REBA Spears Date Dictated: 09/21/21922 Date Transcribed: 09/21/21922 Card Room Manager: ALEJANDRO Signed Lakisha Spears CNP Work Phone: Start: 09-21-2021 End: 09-21-2021 Comments: See Note; NOTES: [facility] [address] [place] [address] OFFICE VISIT Date of Service: 09/21/21 MR#: [id number] Acct: [id number] Name: KAMRYN MUÑOZ Rep #: [id number] : 1945 Provider: TIARRA Beltran Age/Sex: 75/F Location: [facility] Status: Signed HPI HPI History of Present Illness Details: This is a 75-year-old female that presents here today for an urgent appointment for increased shortness of breath. She was last in our office in 2019. She does have a history of hypertension, hyperlipidemia and paroxysmal atrial fibrillation. Pt notes that she has increased SOB over the last few months. She wonders if this was related to her medication that she was taking. Since stopping this the SOB improved slightly. She does note that she is SOB with exertion still, although she can walk further than a few months ago. She also notes that she sometimes has a fullness in her chest. She notes that this is more so when she is sitting and not walking. This is occurs several times a week, it is short lasting. She wonders if this is her Afib. She is similar to her Afib but not as much. She does not have any lightheadedness/dizziness. She does not have any edema. Intake Vital Signs 09/21/21 08:57 Height 5 ft 4 in Weight: 224 lb BMI 38.4 BP 147/83 H Blood Pressure Location Lt brachial Position Sitting Respiration 18 Pulse 92 Pulse Source Monitor Pulse Oximetry (%) 94 Intake Visit Reasons: Shortness of breath Tip Stretcher Required: No Accompanied by: None Is patient in pain?: No Allergies atorvastatin [From Lipitor] Allergy (Verified 09/21/21 08:58) Unknown ezetimibe [From Zetia] Allergy (Verified 09/21/21 08:58) Unknown Penicillins Allergy (Verified 09/21/21 08:58) Unknown pravastatin [From Pravachol] Allergy (Verified 09/21/21 08:58) Unknown simvastatin [From Zocor] Allergy (Verified 09/21/21 08:58) Unknown Medications aspirin 325 mg PO DAILY@0800 10/05/16 [History Confirmed 09/21/21] calcium citrate-vitamin D3 1 ea PO DAILY 10/05/16 [History Confirmed 09/21/21] fgdmilkk-hfo-SZ-lycopen-lute in 1 ea PO DAILY 10/05/16 [History Confirmed 09/21/21] cranberry extract 500 mg tablet 500 mg PO QDAY tab 09/28/17 [History Confirmed 09/21/21] metoprolol succinate 50 mg tablet,extended release 24 hr 50 mg PO DAILY #90 tab 10/13/17 [Rx Confirmed 09/21/21] lactobacillus combination no.9 4 billion cell capsule 4,000 mmu cells PO DAILY 05/13/19 [History Confirmed 09/21/21] pitavastatin calcium 1 mg tablet 1 mg PO DAILY 05/13/19 [History Confirmed 09/21/21] PFSH Medical History Alcohol use Arthritis Arthritis Back pain Cancer Cardiology follow-up encounter Former smoker Gastric reflux High cholesterol History of atrial fibrillation History of IBS History of skin cancer History of stress test Hyperlipidemia Hypertension Palpitations Paroxysmal atrial fibrillation Shortness of breath on exertion Thyroid disease Wears contact lenses Surgical History H/O bilateral hip replacements H/O partial thyroidectomy History of bilateral breast reduction surgery History of cardiac catheterization History of left heart catheterization History of open reduction and internal fixation (ORIF) procedure Hx laparoscopic cholecystectomy Hx of left cataract extraction Hx of right cataract extraction Family History Father aortic aneurysm Sister Seizures [...] ROS Const Const: Negative for fatigue, weakness, headache(s), frequent falls, excessive sweating, weight gain or weight loss Eyes Eyes: Negative for blind spots, loss of peripheral vision, transient loss of vision, blurry vision, change in vision or double vision ENT ENT: Negative for headache(s), dizziness, tinnitus, Nosebleed/epistaxis or balance problems Cardio Chest Pain: Yes Palpitations: Yes Edema: None Muscle aches with walking: None Resp Respiratory: Positive for SOB with activity; Negative for SOB at rest, SOB orthopnea SOB lying down or Cough GI GI: Negative nausea, vomiting, heartburn, bloating, vomiting blood/hematemesis, bright, red blood in stools or black,tarry stools : Negative for hematuria Musc Musc: Negative for muscle aches/ myalgia, muscle weakness, joint pain or balance problems Skin Skin: Negative rash or wounds Neuro Neuro: Negative for dizziness, lightheadedness, near syncope, syncope, orthostatic symptoms, frequent falls, headache(s), weakness, confusion, memory loss, restless legs, blurry vision or double vision Marquise Hematologic/Lymphatic: Negative for easy bleeding or easy bruising Endo Endo: Negative for fatigue, cold intolerance, heat intolerance or excessive sweating Psych Psych: Negative for anxiety or depression Allergy Allergy/Immunology: Negative for rash Cardiology Exam Const Appearance: cooperative, healthy appearing, comfortable, no acute distress and well developed Orientation: alert, awake and oriented x3 Head Head: normal to inspection Ears: hearing grossly normal bilaterally Nose: external nose normal Face and Sinus: face symmetric Mouth: oral mucosae normal, lip normal and moist mucous membranes Eyes General: appearance normal, both eyes and all related structures Eyelids: eyelids normal Conjunctivae: conjunctivae normal Pupils: PERRL EOM: EOM intact bilaterally Neck Neck: normal visual inspection and trachea midline; Negative no JVD Carotids: Negative bruit Chest Chest inspection: normal inspection of the chest Auscultation: Bilateral: Clear to Auscultation Cardio Palpation: normal PMI Rate: regular rate Rhythm: regular rhythm Heart sounds: S1 normal and S2 normal; Negative rub, gallop or murmur GI GI: soft, no hepatosplenomegaly and bowel sounds present Neuro General: patient alert, patient awake, patient oriented x3 and CN's II-XI intact bilaterally Extremities Pulses: Normal: Right Posterior Tibial Pulse, Left Posterior Tibial Pulse, Right Radial Pulse and Left Radial Pulse Lower Extremity Edema: None: Bilateral Psych Psychological: normal affect Supplemental Info Supplemental Information Cardiac cath 2017: 1. Normal left main coronary artery. 2. Left anterior descending artery with no high-grade stenosis. 3. Left circumflex artery, which is nondominant with no significant stenosis. 4. Right coronary artery, which is dominant with no significant stenosis. 5. Preserved ejection fraction. Labs: No Data to Display Diagnostics: Electrocardiogram Chest X-Ray Venous Doppler Study Pulmonary: No Data to Display Assessment and Plan Assessment and Plan (1) Shortness of breath: Orders: Orders: Echo Complete Today Nuclear Stress Test - Treadmil Today Basic Metabolic Profile (BMP) Today CBC W/Diff, Automated Today BNP,B-Type NATRIURETIC PEPTIDE Today Chest PA and Lateral Today Plan - Cassandra MAYEN PA: With her increase of SOB, will obtain a stress test and echo. Will also obtain CXR and labs. (2) Paroxysmal atrial fibrillation: Status: Chronic Orders: Orders: 12 Lead EKG performed by [facility] Today Basic Metabolic Profile (BMP) Today CBC W/Diff, Automated Today BNP,B-Type NATRIURETIC PEPTIDE Today Plan - Cassandra MAYEN PA: For now will continue with Metoprolol and ASA, if tests are negative will consider HM. If there is any recurrence of Afib will need to reconsider anticoagulation (3) Hypertension: Status: Chronic Plan - Cassandra MAYEN PA: Blood pressure is well controlled on current medications, we do not recommend any changes at this time. (4) Hyperlipidemia: Status: Chronic Qualifiers: Hyperlipidemia type: mixed hyperlipidemia Qualified Code(s): E78.2 - Mixed hyperlipidemia Orders: Orders: CBC W/Diff, Automated Today Plan - Cassandra MAYEN PA: managed by PCP, will continue with current medical management Plan Details Follow Up: 6 Weeks (MMM) Coding Level of Care Code Off vis,est,level 4 Diagnoses Shortness of breath R06.02 Paroxysmal atrial fibrillation I48.0 Hypertension I10 Hyperlipidemia E78.2 Hyperlipidemia type: mixed hyperlipidemia Coding Level of Care Code Off vis,est,level 4 Diagnoses Shortness of breath R06.02 Paroxysmal atrial fibrillation I48.0 Hypertension I10 Hyperlipidemia E78.2 Hyperlipidemia type: mixed hyperlipidemia 09/21/21 1158 <Electronically signed by Cassandra Ewing> Date Cassandra MAYEN Cosigner Signature: Date (if applicable) CC: FLIGHT STEWARD-Aquilino Spears YARD CLERK Work Phone: Start: 07-01-2021 End: 07-07-2021 Comments: See Note; NOTES: [facility] Medical Records Department [address] [place] [address] Operative Report 07/01/21 1325 MR#: [id number] Acct: [id number] Name: KAMRYN MUÑOZ Rep #: [id number] : 1945 75 From: Star Pandey MD PCP: REBA Vasquez Status:[facility] Location: [place] [address] Report of Operation Date of Procedure: 07/01/21 Pre-Operative Diagnosis: Postmenopausal bleeding, cervical polyp Post-Operative Diagnosis: Postmenopausal bleeding, uterine polyp Surgery/Procedure Performed:: Hysteroscopy, dilation curettage, polypectomy via Symphion Description of Surgical Findings:: Surgeon: Star Pandey MD Anesthesia: MAC EBL: 20 cc Urine output: 75 cc IV fluids: 700 cc Hysteroscopy fluid deficit: 1200 cc Complications: None Specimen: Endometrial curettings, uterine polyp Findings: 2 cm polyp noted at cervical os. Hysteroscope revealed polyp with base stalk at fundus. Polyp was resected at stalk and removed intact. No other pathology was noted Consent: Patient with postmenopausal bleeding and found to have cervical possible uterine polyp in need of hysteroscopy, dilation and curettage, polypectomy. Patient understood the risk of the procedure includes but is not limited to visceral or vascular injury, prolonged hospitalization, blood loss and need for transfusion, reoperation. Patient state understanding and wished to proceed. All questions were answered and consent was signed. Procedure: Patient was brought back to the OR where MAC anesthesia was found to be adequate. Patient was prepared and draped in a dorsal lithotomy position with yellowfin stirrups. A weighted speculum was placed in the posterior aspect of the vagina. Above findings were noted. Cervical dilators were used to dilate the cervix. Hysteroscope was inserted and above findings were noted. Using Symphion on resectoscope transection of the uterine polyp at its stalk was performed. Polyp was removed intact and sent to pathology. Endometrial curettings were performed with Symphion on resectoscope, and sent to pathology. Good hemostasis was noted. No other pathology was found. Hysteroscope was removed. Good hemostasis was noted. All counts were correct x2. Patient tolerated the procedure well and was brought to recovery in a stable condition. 07/01/21 1330 <Electronically signed by Star Pandey MD> Cosigner Signature (if applicable): CC: FLIGHT STEWARD-C Lakisha Spears; Dr. Star Pandey MD Signed Lakisha Spears YARD CLERK Work Phone: Start: 07-01-2021 End: 07-07-2021 Comments: See Note; NOTES: [facility] Medical Records Department [address] [place] [address] Instructions for Home/Discharge Instructions 07/01/21 1317 MR#: [id number] Acct: [id number] Name: KAMRYN MUÑOZ Rep #: [id number] : 1945 75 From: Star Pandey MD PCP: REBA Vasquez Status:REG [facility] Discharge Instructions Diet Discharge Diet: No restrictions Activity Discharge Activity: Return to Normal Activity and May Drive May resume sexual activity in: 4-6 weeks Weight Bearing Status: Weight bearing as tolerated Dressing / Incision Call your doctor if your incision/area has: Continuous Slow Oozing and Foul Smelling Discharge Call your doctor if you observe: Fever of 101 or Higher, Shortness of breath and Chest pain Follow Up Care Please Follow Up With: Star Pandey MD When: 2 week postoperatively Test Results: Test results from this visit will be discussed in further detail at your follow-up appointment, if applicable. Discharge Plan Admission Attending Provider: Star Pandey Primary Care Provider: Lakisha Spears NP Discharge Orders/Prescriptions Prescriptions: No Action cranberry extract 500 mg tablet 500 mg PO QDAY RF: 0 Livalo 1 mg tablet 1 mg PO DAILY RF: 0 Adult 50 Plus Probiotic 4 billion cell capsule 4,000 mmu cells PO DAILY RF: 0 aspirin 325 MG tablet 325 mg PO DAILY@0800 RF: 0 calcium citrate-vitamin D3 1 EACH tablet 1 ea PO DAILY RF: 0 bvrgzrwr-bsy-PA-lycopen-lute in 1 EACH tablet 1 ea PO DAILY RF: 0 metoprolol succinate 50 MG tablet 50 mg PO DAILY Qty: 90 RF: 3 07/01/21 1319<Electronically signed by Star Pandey MD>Star Pandey MD CC: FLIGHT STEWARD-C Lakisha Spears Signed Lakisha Spears YARD CLERK Work Phone: Start: 07-01-2021 End: 07-07-2021 Comments: See Note; NOTES: [facility] Medical Records Department [address] [place] [address] H P Exam - SPECIAL LIBRARY LIBRARIAN 07/01/21 1213 MR#: [id number] Acct: [id number] Name: KAMRYN MUÑOZ Rep #: [id number] : 1945 75 From: Star Pandey MD PCP: REBA Vasquez Status:REG [facility] Location: [place] [address] History and Physical Date of Admission: 07/01/21 Surgical History and Physical Date: 07/01/2021 Name: KAMRYN MUÑOZ Age: 75 Date of : 1945 Kamryn Muñoz, a 75 year old female 0 0 0 0 0, presents for Hysteroscopy, D, polypectomy on July 01, 2021 at 12:30. -- GynProblem-New Pt -- Kamryn is a referral for post-menopausal bleeding. Kamryn presents here today for Hysteroscopy, D and C , Symphion Polypectomy with at [facility] on 07-01-21. denies new conduit bender concerns at this time. Questions answered and consents signed. MEDICATIONS HISTORY: Patient is also takin. aspirin 325 mg tablet, One pill by mouth once a day 2. Calcium 600 + D(3) 600 mg (1,500 mg)-200 unit tablet, One pill by mouth once a day 3. Livalo 1 mg tablet, One pill by mouth once a day 4. Multivitamin 50 Plus tablet, One pill by mouth once a day 5. Supplement (s) [No Strength], Probiotic 1 po daily 6. Toprol XL 50 mg tablet,extended release, One pill by mouth once a day ALLERGIES: Penicillins, Swelling (localized) Infections - IBS constipation Illnesses - IBS, Atrial Fib and HTN Accidents - None Hospitalizations - see surgery Review of Systems: GENERAL - Denies fever, or chills SKIN - Denies skin changes EYES - Denies visual changes EARS - Denies difficulty hearing NOSE - Denies nasal congestion or bleeding MOUTH - Denies sore throat or difficulty swallowing NECK - Denies pain or swelling RESPIRATORY - Denies shortness of breath or wheezing CARDIOVASCULAR - Denies palpitations or chest pain GASTROINTESTINAL - Denies nausea, vomiting, diarrhea, constipation GENITOURINARY - Denies dysuria, frequency of urination, incontinence of urine MUSCULOSKELETAL - Denies joint or muscle pain NEUROLOGICAL - Denies localized numbness or weakness PSYCHIATRIC - Denies depression or anxiety ENDOCRINE - Denies heat or cold intolerance, weight loss or gain HEMATO-IMMUNOLOGIC - Denies excessive bleeding with cuts SOCIAL HISTORY: Alcohol Use - socially Smoking - used to smoke but quit Diet - moderate, balanced diet Lifestyle - moderate stress lifestyle and single Exercise - walking Seat Belt Use - always 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 cholecystectomy ; - 2. left side of thyroid removed ; - 3. 09/11/2011 left hip ; - 4. 09/11/2016 left cataract ; - 5. broken ankle ; - 6. 03/11/2013 right hip ; - 7. 09/11/2007 Breast reduction ; - PHYSICAL EXAM BP- 106/70 Sitting, Right arm, large cuff Weight- 221.49405 lbs Height- 64.5 inch BMI:[id number] CONSTITUTIONAL - NAD, well nourished, and well developed SKIN - No rash, lesions, or ulcers HEENT - Normocephalic, PERRLA, EOMI NECK - No nodes, no nuchal rigidity and thyroid normal size and texture ABDOMEN - Without hepatosplenomegaly, distention, masses, rebound, or guarding; normal bowel sounds; no hernias EXTREMITIES - No edema or calf tenderness NEUROLOGICAL - Cranial nerves II-XII grossly intact PSYCHIATRIC - A and O to time, place, person, mood and affect External Genital Vagina - non-tender without lesions Urethra/Urethral Meatus - non-tender Bladder - non-tender Vagina - vaginal escobedo are pink and moist without loss of rugae and no evidence of atrophy Cervix - without cervical motion tenderness and has normal size and features without evident lesions and 2cm polyp noted at cervical os ASSESSMENT/PLAN: 1. Postmenopausal Bleeding Patient arrives as [facility] from [facility] with postmenopausal bleeding and thickened endometrial lining. Ultrasound by [facility] shows 22 mm endometrial stripe with a 1.4 cm endometrial cyst, uterus 7.6 cm Educated patient on postmenopausal bleeding and ultrasound. Based on exam 2 cm cervical versus uterine polyp noted 2. Encounter For Other Preprocedural Examination Patient scheduled for hysteroscopy, dilation curettage, polypectomy Risk benefits alternatives of the procedure discussed. All questions answered and consent signed. Educated patient on pain control, bleeding. Discussed activity after surgery 07/01/21 1214 <Electronically signed by Star Pandey MD> Cosigner Signature (if applicable): CC: REBA Spears; Dr. Star Pandey MD Signed Lakisha Spears [facility] Work Phone: Start: 06-01-2021 End: 06-01-2021 Comments: See Note; NOTES: [facility] Imaging Services [address] [place] [address] Transvaginal Non- MR#: [id number] Acct: [id number] Name: KAMRYN MUÑOZ Rep #: [id number] : 1945 F 75 From: Viral Nielson MD PCP: REBA Vasquez Status: REG CLI Study: Transvaginal Non- Date of Exam: Exam# [id number] Ordering Dr: Lakisha Spears NP STUDY: ULTRASOUND TRANSVAGINAL CLINICAL: Female, 75 years old. Abnormal bleeding TECHNIQUE: Transvaginal COMPARISON: None. FINDINGS: Normal uterine size measuring 7.6 cm in maximal craniocaudal dimension. There are no myometrial masses. Normal endometrial thickness measuring 22 mm. The endometrium is predominantly hyperechoic but shows some heterogeneity. There is a 1.4 cm endometrial cyst. Normal uterine cervix. Right ovary not visualized. Normal left ovary, measuring 1.5 x 1.2 x 1.0 cm. There are multiple follicles without a dominant cyst. There is no free fluid in the pelvis. US/Transvaginal Non- IMPRESSION: Abnormal endometrial thickening at 2.2 cm. Further evaluation with biopsy recommended to exclude endometrial carcinoma. Particularly since patient is having abnormal bleeding No suspicious adnexal mass or free fluid Electronically Signed: Lorenzo Nielson MD at 16:25 EDT , Service support , CC: REBA Spears Card Room Manager: Signed Lakisha Spears CNP Work Phone: Start: 03-02-2021 End: 03-02-2021 Comments: See Note; NOTES: [facility] [address] [place] [address] Venous Duplex US, Unilateral 03/02/21 1102 MR#: [id number] Acct: [id number] Name: KAMRYN MUÑOZ Rep #: [id number] : 1945 75 From: Jc Otero MD Attending Dr: REBA Vasquez Status: REG CLI Ordering Dr: Lakisha Spears NP FLIGHT STEWARD-C Date: 03/02/21 Location: [facility] Sex: F C Admitted: Reason For Study: RLE PAIN RIGHT GSV is normal. CFV is compressible, spontaneous, phasic, competent and demonstrates normal augmentation. FV is compressible, spontaneous, phasic, competent and demonstrates normal augmentation. POP V is compressible, spontaneous, phasic, competent and demonstrates normal augmentation. T/P Trunk is compressible. PTV is compressible. RT PerV is compressible. Procedure This is a venous duplex using B-mode, color flow and spectral Doppler. Exam performed in department. The exam was diagnostic. A preliminary report was called and/or faxed to Lakisha Spears @ 11:10 am @ [phone]. VL/Venous Duplex US, Unilateral Interpretation Summary Deep veins of the right lower extremity are patent and compressible segmentally. There is no evidence of right lower extremity deep vein thrombosis. Valvular competence appears intact within the proximal deep venous system on the right . The right great saphenous vein appears patent and compressible segmentally. _ Ordering Physician: Lakisha Spears Referring Physician: Lakisha Spears Performed By: Haley George, TASIA, RVT 03/02/212054 Date Jc Otero MD CC: FLIGHT STEWARD-C Lakisha Spears Date Dictated: 03/02/21 1102 Date Transcribed: 03/02/212054 Card Room Manager: Signed Lakisha Spears [facility] Work Phone: Start: 09-28-2020 End: 09-28-2020 SCRN MAMM (CAD)W/TYLOR BILAT Comments: See Note; NOTES: [facility] Imaging Services [address] [place] [address] SCRN MAMM (CAD)W/TYLOR BILAT MR#: [id number] Acct: [id number] Name: KAMRYN MUÑOZ Rep #: [id number] : 1945 F 74 From: Wayne blevins MD PCP: REBA Vasquez Status: REG CLI Study: SCRN MAMM (CAD)W/TYLOR BILAT Date of Exam: 09/11 05/01 Exam# [id number] Ordering Dr: Lakisha Spears NP FLIGHT STEWARD-C MAMMOGRAPHY - BILATERAL SCREENING REASON FOR EXAM: Female, 74 years old. Routine annual screening examination. PERTINENT HISTORY: Grandmother with breast cancer. History of prior bilateral breast reduction surgery. TECHNIQUE: Digital bilateral breast tylor (3D mammographic acquisition) in the CC and MLO projections. 2-D mediolateral oblique (MLO) and craniocaudad (CC) views of both breasts were obtained. CAD: Full Field Digital Mammography with Computer Added Detection was performed. COMPARISON: Comparison is made with prior study dated 03/27/2020 and 09/26/2018. FINDINGS: Breast Composition: The breasts are almost entirely fatty. There are no dominant masses or suspicious calcifications. Stable small bilateral calcified breast nodules. No other significant abnormalities are identified. There has been no significant change since the prior study. BI/SCRN MAMM (CAD)W/TYLOR BILAT IMPRESSION: Stable bilateral screening mammogram. Yearly follow-up mammogram recommended. (A) ASSESSMENT CATEGORY: BIRADS Category 2: Benign. A letter regarding these results will be sent to the patient by the facility within 30 days. Approximately 10% of breast cancers are not detected by mammography. A normal mammogram should not delay biopsy of a clinically suspicious abnormality. [id number] Electronically Signed: Wayne Rabago MD at 12:24 EST , Service support , CC: REBA Spears Card Room Manager: Signed Lakisha Spears Work Phone: Start: 09-27-2019 End: 09-27-2019 SCREEN MAMM (CAD) W/TYLOR BILAT Comments: See Note; NOTES: [facility] Imaging Services [address] [place] [address] SCREEN MAMM (CAD) W/TYLOR BILAT MR#: [id number] Acct: [id number] Name: KAMRYN MUÑOZ Rep #: [id number] : 1945 F 73 From: Wayne Rabago MD PCP: REBA Vasquez Status: [facility] Study: SCREEN MAMM (CAD) W/TYLOR BILAT Date of Exam: 09/27/19 Exam# [id number] Ordering Dr: Lakisha Spears MAMMOGRAPHY - BILATERAL SCREENING REASON FOR EXAM: Female, 73 years old. Routine annual screening examination. PERTINENT HISTORY: Grandmother with breast cancer. TECHNIQUE: Digital bilateral breast tylor (3D mammographic acquisition) in the CC and MLO projections. 2-D mediolateral oblique (MLO) and craniocaudad (CC) views of both breasts were obtained. CAD: Full Field Digital Mammography with Computer Added Detection was performed. COMPARISON: Comparison is made with prior examination dated September 26, 2018 and September 07, 2017. FINDINGS: Breast Composition: The breasts are almost entirely fatty. There are no dominant masses or suspicious calcifications. Stable densely calcified bilateral breast nodules suggestive of calcified fibroadenomas. No other significant abnormalities are identified. There has been no significant change since the prior study. BI/SCREEN MAMM (CAD) W/TYLOR BILAT IMPRESSION: Stable bilateral screening mammogram. Yearly follow-up mammogram recommended. (A) ASSESSMENT CATEGORY: BIRADS Category 2: Benign. A letter regarding these results will be sent to the patient by the facility within 30 days. Approximately 10% of breast cancers are not detected by mammography. A normal mammogram should not delay biopsy of a clinically suspicious abnormality. [id number] Electronically Signed: Wayne Rabago, at 12:42 EST , Service support , CC: REBA Spears Card Room Manager: Signed Lakisha Spears Work Phone: Start: 10-04-2018 End: 10-04-2018 Cardiology Visit Report Comments: See Note; NOTES: [facility] [address] [place] [address] OFFICE VISIT Date of Service: 10/04/18 MR#: [id number] Acct: [id number] Name: KAMRYN MUÑOZ Rep #: [id number] : 1945 Provider: Kp Lopez MD Age/Sex: 72/F Location: [facility] Status: Signed HPI HPI Chief Complaint: Follow up Details: KAMRYN MUÑOZ, is a 72 F who presents to [...] physical exam here today demonstrates clear lung messina regular rate and rhythm and no pedal edema her blood pressure is under excellent control. Intake Vital Signs10/04/18 Height 5 ft 5 in 10/04/18 Weight: 214 lb 10/04/18 Body Mass Index (BMI) 35.6 10/04/18 Blood Pressure 122/80 H 10/04/18 Blood Pressure Location Lt brachial Intake Visit Reasons: 1 Y FU Tip Stretcher Required: No Accompanied by: none Is patient [...] ea PO DAILY 10/05/16 [History Confirmed 10/04/18] Multivit-Min/FA/Lycopen/Lute in [Centrum Silver Tablet] 1 ea PO DAILY 10/05/16 [History Confirmed 10/04/18] Pitavastatin Calcium [Livalo] 1 mg PO DAILY 10/05/16 [History Confirmed 09/26/17] cranberry extract 500 mg tablet 500 mg PO QDAY tab 09/28/17 [History Confirmed 10/04/18] metoprolol succinate ER 50 mg tablet,extended release 24 hr 50 mg PO DAILY #90 tab 10/13/17 [Rx Confirmed 10/04/18] PFS Medical History Hyperlipidemia (Chronic) Palpitations (Chronic) Paroxysmal [...] arise 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) 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 Level of Care Code Off vis,est,level [...] Cosigner Signature: Date (if applicable) CC: Lakisha Spears Start: 09-26-2018 End: 09-26-2018 SCREENING MAMM (CAD), BILAT Comments: See Note; NOTES: [facility] Imaging Services [address] [place] [address] SCREENING MAMM (CAD), BILAT MR#: [id number] Acct: [id number] Name: KAMRYN MUÑOZ Rep #: [id number] : 1945 F 72 From: Wayne Rabago MD PCP: Lakisha Spears NP Status: REG CLI Study: SCREENING MAMM (CAD), BILAT Date of Exam: 09/26/18 Exam# [id number] Ordering Dr: Lakisha Spears FLIGHT STEWARD-C MAMMOGRAPHY - BILATERAL SCREENING REASON FOR EXAM: Female, 72 years old. Routine annual screening examination. PERTINENT HISTORY: Grandmother with breast cancer. Remote bilateral breast reduction surgery. TECHNIQUE: Digital bilateral breast tylor (3D mammographic acquisition) in the CC and [...] delay biopsy of a clinically suspicious abnormality. [id number] Electronically Signed: Wayne Rabago MD at 11:40 EST Tel [phone], Service support , CC: Lakisha Spears NP Card Room Manager: Signed Lakisha Spears Work Phone: Start: 09-30-2017 End: 09-30-2017 Cardiology Visit Report Comments: See Note; NOTES: [facility] [address] [place] [address] Sarah[address] [place] [address] OFFICE VISIT Date of Service: 09/28/17 MR#: [id number] Acct: [id number] Name: KAMRYN MUÑOZ Rep #: [id number] : 1945 Provider: DIETER Mahan Age/Sex: 71/F Location: [facility] Status: Signed HPI 1 Y FU: Details: KAMRYN MUÑOZ, is a 71 F who presents to [...] Pt. denies symptoms of CHF, palpitations, lightheadedness, dizziness, near syncope, or syncopal episodes. Pt. denies edema or claudication issues. Pt. denies orthopnea, PND, fever, chills, blood in urine, blood in stool, myalgia, or unexplainable fatigue. Echocardiogram from April 2012 showed an ejection fraction of 65%. Intake Vital Signs09/28/17 Height 5 ft 5 in 09/28/17 Weight: 217 lb 09/28/17 Body Mass Index (BMI) 36.1 09/28/17 Blood Pressure 110/78 01/18/18 Blood Pressure Location Lt brachial Intake Visit Reasons: 1 Y FU Tip Stretcher Required: No Accompanied by: None Is patient in pain?: No Allergies atorvastatin [From Lipitor] Allergy (Verified 09/28/17 10:08) Unknown ezetimibe [From Zetia] Allergy (Verified [...] [History Confirmed 09/28/17] Metoprolol(XL)Succ [Toprol Xl (Beta Chanda)] 50 mg PO DAILY 10/05/16 [History Confirmed 09/26/17] Multivit-Min/FA/Lycopen/Lute in [Centrum Silver Tablet] 1 ea PO DAILY 10/05/16 [History Confirmed 09/26/17] Pitavastatin Calcium [Livalo] 1 mg PO DAILY 10/05/16 [History Confirmed 09/26/17] cranberry extract 500 mg tablet 500 mg PO QDAY tab 09/28/17 [History Confirmed 09/28/17] Ejection fraction %: 65 to 70 PFSH Medical History Hyperlipidemia (Chronic) Palpitations (Chronic) Paroxysmal [...] Const: Negative for weakness, body ache, fever(s), chills or fatigue ENT ENT: Negative for dizziness Cardio Chest Pain: No Palpitations: Positive for No Edema: None Muscle aches with walking: None Resp Respiratory: Negative for SOB with activity, SOB at rest, SOB orthopnea\SOB lying down or paroxysmal nocturnal dyspnea GI GI: Negative nausea, black,tarry stools, bright, red blood in stools or vomiting blood/hematemesis : Negative for hematuria or frequent nighttime urination/ nocturia Musc Musc: Negative for muscle aches/ myalgia Neuro Neuro: Negative for lightheadedness, Negative for near syncope, Negative for syncope, Negative for orthostatic symptoms, Negative for weakness, Negative for dizziness Endo Endo: Negative for fatigue Cardiology Exam Const Appearance: cooperative, healthy appearing, comfortable and no acute distress Orientation: alert, awake and oriented x3 Head Head: normal to inspection Mouth: oral mucosae normal Neck Neck: no JVD and normal visual inspection Carotids: normal carotid upstroke Chest Chest inspection: normal inspection of the chest and normal respiratory effort Auscultation: Bilateral: Clear to Auscultation Cardio Rate: regular rate Rhythm: regular rhythm Heart sounds: S1 normal and S2 normal; negative rub or gallop GI GI: normal to inspection Neuro General: alert, awake, oriented x3 and CN's II-XI intact bilaterally Skin Skin: no rashes or lesions noted Extremities Pulses: Normal: Right Posterior Tibial Pulse, Left Posterior Tibial Pulse, Right Radial Pulse, Left Radial Pulse Lower Extremity Edema: None: Bilateral Psych Psychological: normal affect Assessment AND Plan 1. Paroxysmal atrial fibrillation I48.0 Plan - REBA Nguyen There does not appear to be any reoccurrence of this. We will continue beta-chanda and full strength aspirin. Patient instructed to contact her office if she had any concerning symptoms. 2. Palpitations R00.2 Plan - REBA Nguyen Patient denies any episodes of palpitation. We will continue to monitor this. 3. Mixed hyperlipidemia E78.2 Plan - REBA Nguyen This is monitored by primary care physician. Patient states that her most recent lipid panel has been good. Patient will continue current cholesterol lowering medication. Plan Detail Additional Comments - REBA Nguyen Discussed the above [...] words, spelling or punctuation that were not noted when reviewing the office note prior to saving. 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) Coding Level of Care Code Off vis,est,level 3 Diagnoses Paroxysmal atrial fibrillation I48.0 Palpitations R00.2 Mixed hyperlipidemia E78.2 Hyperlipidemia type: mixed hyperlipidemia 09/28/17 1242 <Electronically signed by Michael Mahan NP-C> Date Michael Mahan NP-C 09/30/17 1708<Electronically signed by Gerald Bell MD> Cosigner Signature: Date (if applicable) Gerald Bell MD CC: Lakisha Spears Start: 09-13-2017 End: 09-13-2017 Dexa Bone Density Study (HP) Comments: See Note; NOTES: [facility] Imaging Services [address] [place] [address] Dexa Bone Density Study (HP) MR#: [id number] Acct: [id number] Name: SUDEEPKAMRYN R Rep #: [id number] : 1945 F 71 From: Wayne Rabago MD PCP: Lakisha Spears NP Status: REG CLI Study: Dexa Bone Density Study (HP) Date of Exam: 09/13/17 Exam# [id number] Ordering Dr: Lakisha Spears STUDY: DUAL ENERGY X-RAY ABSORPTIOMETRY / DXA REASON FOR EXAM: Female, 71 years old. The patient is postmenopausal. Loss of height. TECHNIQUE: Bone Mineral Density (BMD) measurements of lumbar spine and left forearm were obtained. The patient is status [...] of bone density since the previous examination. HPBD/Dexa Bone Density Study (HP) IMPRESSION: The [...] and Related Bone Diseases http://www.osteo.org 2. International Society for Clinical Densitometry http://www.iscd.org 3. National Osteoporosis Foundation http://www.nof.org Electronically Signed: Wayne Rabago MD at 9:21 EST Tel [phone], Service support , CC: Lakisha Spears NP Card Room Manager: Signed Priscilla Whit Work Phone: Start: 09-07-2017 End: 09-08-2017 SCREENING MAMM (CAD), BILAT Comments: See Note; NOTES: [facility] Imaging Services [address] [place] [address] SCREENING MAMM (CAD), BILAT MR#: [id number] Acct: [id number] Name: KAMRYN MUÑOZ Rep #: [id number] : 1945 F 71 From: Jimenez Harris MD PCP: Lakisha Spears NP Status: REG CLI Study: SCREENING MAMM (CAD), BILAT Date of Exam: 09/07/17 Exam# [id number] Ordering Dr: Lakisha Spears MAMMOGRAPHY - BILATERAL SCREENING REASON FOR EXAM: Female, 71 years old. Routine annual screening examination. PERTINENT HISTORY: The patient indicates paternal grandmother diagnosed with breast cancer at age 70. Status post bilateral reduction in 2006. Bilateral moles marked mammographically. TECHNIQUE: Digital bilateral breast tomosynthesis (3-D mammographic acquisition) in the CC and MLO projections. Synthesized 2-D images (C-View reconstruction from tomosynthesis acquisition) providing bilateral breast CC and MLO views. CAD: Full Field Digital Mammography with Computer Added Detection was performed. COMPARISON: September 06, 2016. FINDINGS: Breast Density: B - Scattered fibroglandular densities. There are no dominant masses or suspicious calcifications. No other significant abnormalities are identified. HPBI/SCREENING MAMM (CAD), BILAT IMPRESSION: Stable bilateral screening mammogram. Yearly follow-up mammogram recommended. (A) ASSESSMENT CATEGORY: BIRADS Category 2: Benign. A letter regarding these results will be sent to the patient by the facility within 30 days. Approximately 10% of breast cancers are not detected by mammography. A normal mammogram should not delay biopsy of a clinically suspicious abnormality. [id number] Electronically Signed: Jimenez Harris MD at 8:01 EST , Service support , CC: Lakisha Spears NP Card Room Manager: Signed Lakisha Spears Work Phone: Start: 10-06-2016 End: 10-07-2016 Left Heart Cath/COR/LV Percut Comments: See Note; NOTES: [facility] Imaging Services [address] [place] [address] Cardiac Catheterization Report MR#: [id number] Acct: [id number] Name: KAMRYN MÑUOZ Serafin Rep #: [id number] : 1945 70 From: Kp Lopez MD PCP: Lakisha Spears Status: DEP CLI DATE OF SERVICE: 10/06/2016 INTRODUCTION: The patient is a lady with a history of an abnormal stress test with anterior ischemia. The present cardiac catheterization is being undertaken to assess anatomy and to guide therapy. DESCRIPTION OF PROCEDURE: After informed consent was obtained, 1% Xylocaine was used as local anesthetic agent to anesthetize the right radial area. Intra-arterial cocktail was administered. A 5-Frisian JL3.5 catheter was then advanced to the ascending aorta, flushed, and pressures recorded. Left coronary ostium was identified and engaged. Left coronary angiography performed in multiple views. Following this, the catheter was removed and a 5-Frisian JR5 catheter was inserted. The right coronary ostium was identified and engaged. Right coronary angiography performed in multiple views. Following this, the catheter was removed and a pigtail catheter was inserted. A left ventriculogram was performed with 36 mL of contrast at 12 mL per second. Following this, all catheters were removed. The sheath was removed. A TR band was applied. HEMODYNAMICS: The baseline heart rate was noted to be 85 beats per minute in sinus rhythm. Aortic pressures were 125/74. Left ventricular pressure was 130/7. POST ANGIOGRAM: Left ventricular pressure was 142/11. Aortic pressure is 139/66. CORONARY ARTERIOGRAPHY: LEFT MAIN: The left main coronary artery was noted to be angiographically normal. It bifurcated into left anterior descending artery and left circumflex artery. No significant stenosis was noted in this vessel. LEFT CIRCUMFLEX ARTERY: The left circumflex artery was a nondominant vessel. There was a small first obtuse marginal branch, an atrial circumflex branch and a second obtuse marginal branch. These vessels were tiny. There was an eccentric plaque of approximately 20% stenosis noted. A third large bifurcating obtuse marginal branch was noted with no evidence of stenosis. The AV groove branch did not demonstrate any significant stenosis. LEFT ANTERIOR DESCENDING ARTERY: The left anterior descending artery was a medium-sized vessel. It gave off a diagonal vessel, which bifurcated. No significant stenosis was noted in this vessel. A large septal pocketbook maker was also noted. The left anterior descending artery was noted and it coursed around the apex of the left ventricle. No significant stenosis was noted in this vessel. RIGHT CORONARY ARTERY: The right coronary artery was a dominant vessel. It gave off a sinoatrial branch, a conus branch, and an acute marginal branch. The vessel continued and distally gave off a posterior descending artery and a posterolateral vessel. No significant stenosis was noted in this vessel. LEFT VENTRICULOGRAM: The left ventriculogram demonstrated overall preserved left ventricular systolic function. No wall motion [...] care. Kp Lopez MD T: NTS JOB: [id number] 10/07/16 1040 <Electronically signed by Kp Lopez MD> Date Kp Lopez MD Cosigner Signature (If Indicated): Date CC: Lakisha Lopez MD Date Dictated: 10/06/161702 Date Transcribed: 10/06/161702 Card Room Manager: Signed Lakisha Spears Start: 10-04-2016 End: 10-04-2016 Chest PA and Lateral Comments: See Note; NOTES: [facility] Imaging [facility] [address] [address] Verdana 4d Chest PA and Lateral MR#: [id number] Acct: [id number] Name: KAMRYN MUÑOZ Rep #: [id number] : 1945 F 70 From: Wayne Rabago MD PCP: Lakisha Spears Status: PRE CLI Study: Chest PA and Lateral Date of Exam: 10/04/16 Exam# [id number] Ordering Dr: Kp Lopez MD STUDY: X-RAY CHEST REASON FOR EXAM: Female, 70 years old. Abnormal stress test. TECHNIQUE: PA and lateral views of the chest. COMPARISON: None. FINDINGS: Hyperinflation. The lungs are clear. There is no demonstrated pleural abnormality. Normal size heart. Normal mediastinum and jessica. Normal visualized pulmonary arteries. Normal visualized aortic arch and descending thoracic aorta. There is demineralization of the osseous structures. Normal visualized ribs, clavicles, and shoulders. Cholecystectomy. RAD/Chest PA and Lateral IMPRESSION: Hyperinflation. The lungs are clear. Electronically Signed: Wayne Rabago MD at 14:21 EST Tel [phone], Service support [phone], CC: Lakisha Spears; Kp Lopez MD Card Room Manager: Signed Lakisha Spears Start: 10-03-2016 End: 10-07-2016 Nuclear Stress Test - Chemical Comments: See Note; NOTES: [facility] Imaging Services [address] [place] [address] Godfrey 4d Nuclear Stress Test - Chemical MR#: [id number] Acct: [id number] Name: KAMRYN MUÑOZ Rep #: [id number] : 1945 70 From: Kp Lopez MD Primary Care: Lakisha Spears Status: REG CLI Ordering Dr: Kp Lopez MD Sex: F C DATE OF SERVICE: 10/03/2016 PHARMACOLOGIC MYOCARDIAL PERFUSION STRESS TEST A 70-year-old lady with a history of chest pain and atrial fibrillation. Resting EKG demonstrates sinus rhythm with a rate of 75 beats per minute. Normal intervals are noted. Resting blood pressure was 132/84. 0.4 mg of regadenoson was infused per usual protocol followed by rapid intravenous saline flush injection. Continuous EKG monitoring was performed. The maximum heart rate attained was 100 beats per minute ____ in sinus rhythm. The resting blood pressure was 132/84 with a final blood pressure of 120/80. No clinical angina was noted. At rest and during peak infusion, there were no ST or T-wave changes noted to suggest abnormal flow reserve. MYOCARDIAL PERFUSION PROTOCOL: 13.6 mCi of sestamibi was injected at rest. 0.4 mg of regadenoson was infused per usual protocol. At peak infusion, 42.3 mCi of sestamibi was injected. Stress images were obtained. Stress and rest images were reconstructed and compared in the short axis, vertical long and horizontal long axes. Gated images were also obtained. PERFUSION SPECT ANALYSIS: Review of the images demonstrated normal uptake of tracer noted in all areas of myocardium except for a small portion of the mid anterior wall. There is mildly reduced perfusion noted on the stress images with mild improvement on the resting images. The septum, anterior wall, and lateral wall appear to be well perfused. The above is suggestive of mild amount of mid anterior ischemia in a small zone. The rest of the escobedo appear to be well perfused. GATED SPECT ANALYSIS: The gated ejection fraction is noted to be 76%. CONCLUSION: 1. Normal pharmacologic myocardial perfusion stress test. 2. Preserved ejection fraction. Kp Lopez MD T: NTS JOB: [id number] 10/07/16 1039 <Electronically signed by Kp Lopez MD> Date Kp Lopez MD CC: Lakisha Riannajakob; Kp Lopez MD Date Dictated: 10/03/161633 Date Transcribed: 10/03/161633 Card Room Manager: Signed Lakisha Spears Start: 09-06-2016 End: 09-07-2016 Bilat Scrn Digital AND CAD Comments: See Note; NOTES: [facility] Imaging Services [address] [place] [address] Verdana 4d Bilat Scrn Digital AND CAD MR#: [id number] Acct: [id number] Name: KAMRYN MUÑOZ Rep #: [id number] : 1945 F 70 From: Wayne Rabago MD PCP: Lakisha Spears Status: PRE CLI Study: Bilat Scrn Digital AND CAD Date of Exam: 09/06/16 Exam# [id number] Ordering Dr: Lakisha Spears MAMMOGRAPHY - BILATERAL SCREENING REASON FOR EXAM: Female, 70 years old. Routine annual screening examination. PERTINENT HISTORY: Grandmother with breast cancer. History of prior bilateral breast reduction. TECHNIQUE: Digital bilateral breast tylor (3D mammographic acquisition) in the CC and [...] calcifications. Stable retroareolar calcifications bilaterally. These are benign appearing. These are unchanged. No other significant abnormalities are identified. There has been no significant change since the prior study. HPBI/Bilat Scrn Digital AND CAD IMPRESSION: Stable bilateral screening mammogram. Yearly follow-up mammogram recommended. (A) ASSESSMENT CATEGORY: BIRADS Category 2: Benign. A letter regarding these results will be sent to the patient by the facility within 30 days. Approximately 10% of breast cancers are not detected by mammography. A normal mammogram should not delay biopsy of a clinically suspicious abnormality. [id number] Electronically Signed: Wayne Rabago MD at 7:53 EST Tel [phone], Service support [phone], CC: Lakisha Spears Card Room Manager: Signed Lakisha Spears Work Phone: Start: 12-18-2015 End: 12-18-2015 Abdomen/Pelvis without Cont Comments: See Note; NOTES: [facility] [facility] [address] [place] [id number] Verdana 4d Abdomen/Pelvis without Cont MR#: [id number] Acct: [id number] Name: KAMRYN MUÑOZ Rep #: [id number] : 1945 F 70 From: Clifford Khan MD PCP: Lakisha Spears Status: REG CLI Study: Abdomen/Pelvis without Cont Date of Exam: 12/18/15 Exam# [id number] Ordering Dr: Lakisha Spears STUDY: CT ABDOMEN AND PELVIS WITHOUT CONTRAST REASON FOR EXAM: Female, 70 years old. Abdominal pain and left flank pain x3 months. History of atrial fibrillation, hypertension and 2 hip replacements. RADIATION DOSAGE (If Supplied By Facility): CTDIvol = ( 19.92 ) mGy, DLP = ( 1029.46 ) mGycm TECHNIQUE: Transaxial images were obtained from the dome of the diaphragm to the symphysis pubis with oral contrast, and without intravenous contrast. Sagittal and coronal images were reconstructed. Study of the pelvis was limited due to artifact from the patient's bilateral hip arthroplasties. Individualized dose optimization techniques were used for this CT. COMPARISON: CT abdomen and pelvis 08/31/10, report only. FINDINGS: The visualized lung bases are unremarkable. The visualized portions of the heart are within normal limits. Redemonstration of multiple low-attenuation hepatic cysts, the largest in the right hepatic lobe which is bilobed, measuring 5.2 x 3.3 cm. There are surgical clips in the gallbladder fossa consistent with a prior cholecystectomy. Normal spleen. Normal pancreas. Normal bilateral adrenal glands. Normal right kidney. Multiple small left peripelvic cysts. [...] multiple intrahepatic cysts. Multiple small left peripelvic cyst. Bilateral total hip arthroplasties. Electronically Signed: Clifford Khan MD at 20:40 EDT , Service support [phone], CC: Lakisha Spears Card Room Manager: Signed Lakisha Spears Work Phone: Start: 07-17-2015 End: 07-17-2015 Bilat Scrn Digital AND CAD Comments: See Note; NOTES: [facility] [address] [place] [address] Verdana 4d Bilat Scrn Digital AND CAD MR#: [id number] Acct: [id number] Name: KAMRYN MUÑOZ Rep #: [id number] : 1945 F 69 From: Wayne Rabago MD PCP: Shelia Oleary MD Status: REG CL Study: Bilat Scrn Digital AND CAD Date of Exam: 07/17/15 Exam# [id number] Ordering Dr: Shelia Oleary MD MAMMOGRAPHY - BILATERAL SCREENING REASON FOR EXAM: Female, 69 years old. Routine annual screening examination. PERTINENT HISTORY: Grandmother with breast cancer. Prior bilateral breast reduction. TECHNIQUE: Digital examination. Mediolateral oblique (MLO) and craniocaudad (CC) views of both breasts were obtained. CAD: CAD was performed on this study. COMPARISON: Comparison is made with prior study dated June 21, 2013 and June 18, 2012. FINDINGS: Breast Composition: The breasts are almost entirely fatty. There are no dominant masses or suspicious calcifications. Stable nonsuspicious [...] Wayne Rabago MD at 14:38 EST Tel [phone], Service support [phone], CC: Shelia Oleary MD Card Room Manager: Signed Shelia Oleary Work Phone: Start: 07-14-2014 End: 07-14-2014 Bilat Scrn Digital & CAD Comments: See Note; NOTES: [facility] [address] [place] [address] Breast Imaging Report MR#: [id number] Acct: [id number] Name: KAMRYN MUÑOZ Rep #: [id number] : 1945 68 From: Wayne Rabago MD PCP: Shelia Oleary MD Status: REG CLI Exam# [id number] Ordering Dr: Shelia Oleary MD MAMMOGRAPHY - BILATERAL SCREENING REASON FOR EXAM: Female, 68 years old. Routine annual screening examination. PERTINENT HISTORY: Grandmother with breast cancer. Prior bilateral breast reduction. TECHNIQUE: Digital examination. Mediolateral oblique [...] Wayne Rabago MD at 15:42 EST Tel [phone], Service support [phone], CC: Shelia Oleary MD Card Room Manager: Signed Shelia Oleary Work Phone: Start: 07-03-2013 End: 07-03-2013 Dexa Bone Density Study (HP) Comments: See Note; NOTES: [facility] Imaging [facility] [address] [place] [address] Bone Density Report MR#: [id number] Acct: [id number] Name: KAMRYN MUÑOZ Rep #: [id number] : 1945 F 67 From: Wayne Rabago MD PCP: Status: REG CLI Study: Dexa Bone Density Study () Date of Exam: 07/03/13 Exam# [id number] Ordering Dr: Shelia Oleary MD STUDY: DUAL ENERGY X-RAY ABSORPTIOMETRY / DXA REASON FOR EXAM: Female, 67 years old. Osteopenia. TECHNIQUE: Bone Mineral Density (BMD) measurements of lumbar spine and right forearm were obtained. The patient is status post bilateral hip replacement. COMPARISON: Comparison is made with prior study dated September 09, 2010. FINDINGS: Lumbar Spine (L1-L4): g/cm2 (0.888) / T-score (-2.3) / Z-score (-0.7) Findings are suggestive of osteopenia with a moderate fracture risk. Right Forearm: g/cm2 (0.842) / T-score (-0.5) / Z-score (1.1) The T-Scores on the most recent prior examination were: Lumbar Spine (L1-L4): There has been worsening of bone density since the previous examination. IMPRESSION: The patient is considered osteopenic at the level of the lumbar [...] and Related Bone Diseases http://www.osteo.org 2. International Society for Clinical Densitometry http://www.iscd.org 3. National Osteoporosis Foundation http://www.nof.org Signed: Wayne Rabago M.D. July 03, 2013 at 1:44:42 PM EDT [phone] Electronically Signed GP/GP If you are the referring physician and would like to consult with the radiologist who provided this interpretation, please contact Wayne Rabago M.D. at [phone]. If this radiologist is unavailable, you will be directed to another radiologist to assist. If you are a patient with a question regarding this report, please contact your referring physician directly. Professional Interpretation Provided By: Sajan, Phone , These documents contain legally protected [...] of these documents. CC: Shelia Oleary MD Card Room Manager: Signed Shelia lOeary Work Phone: Start: 06-21-2013 End: 06-21-2013 Bilat Scrn Digital & CAD Comments: See Note; NOTES: [facility] Imaging [facility] [address] [place] [id number] Breast Imaging Report MR#: [id number] Acct: [id number] Name: KAMRYN MUÑOZ Rep #: [id number] : 1945 F 67 From: Wayne Rabago MD PCP: Status: REG CLI Exam# [id number] Ordering Dr: Shelia Oleary MD MAMMOGRAPHY - [...] 18, 2012 and June 15, 2011, FINDINGS: The breast composition is almost entirely fat. Glandular [...] June 21, 2013 at 3:16:59 PM EDT [phone] Electronically Signed GP/GP If you are the referring physician and would like to consult with the radiologist who provided this interpretation, please contact Wayne Rabago M.D. at [phone]. If this radiologist is unavailable, you will be directed to another radiologist to assist. If you are a patient with a question regarding this report, please contact your referring physician directly. Professional Interpretation Provided By: Sajan, Phone , These documents contain legally protected [...] of these documents. CC: Shelia Oleary MD Card Room Manager: Signed Shelia Oleary Work Phone: breast reduction 2007 Preston Vance breast reduction 2008 Maria Luisa Jeanne breast reduction 2008 Maria Luisa Jeanne breast reduction 2008 Maria Luisa Bakari breast reduction 2008 Preston Jorge Luis breast reduction 2008 Preston Jorge Luis breast reduction 2008 Preston Jorge Luis Cholecystectomy Preston Vance Cholecystectomy Maria Luisa Lockl ear Cholecystectomy Maria Luisa Lockl ear Cholecystectomy Maria Luisa Coffma n Cholecystectomy Preston Jorge Luis Cholecystectomy Preston Jorge Luis Cholecystectomy Preston Jorge Luis Cholecystectomy Olga Cross SUEDING MACHINE OPERATOR Cholecystectomy Preston Jorge Luis SUEDING MACHINE OPERATOR Cholecystectomy Meena Gravi us BACKFILLER Cholecystectomy Krista Slarb SUEDING MACHINE OPERATOR Cholecystectomy Krista Slarb SUEDING MACHINE OPERATOR Cholecystectomy Krista Slarb SUEDING MACHINE OPERATOR Colonoscopy Preston Vance Comment on above: November 2015 Colonoscopy Maria Luisa Jeanne Comment on above: November 2015 Colonoscopy Maria Luisa Jeanne Comment on above: November 2015 Colonoscopy Maria Luisa Bakari Comment on above: November 2015 Colonoscopy Preston Kang Comment on above: November 2015 Colonoscopy Preston Kang Comment on above: November 2015 Colonoscopy Preston Kang Comment on above: November 2015 Colonoscopy Olga Cross LP N Colonoscopy Preston Jorge Luis LP N Colonoscopy Meena Gravius BACKFILLER Colonoscopy Krista Slarb LP N Colonoscopy Krista Slarb LP N Colonoscopy Krista Slarb LP N Extraction of cataract Martha Vance Comment on above: 2016 Dr Dias Extraction of cataract Taylo r Jeanne Comment on above: 2016 Dr Dias Extraction of cataract Taylo r Jeanne Comment on above: 2016 Dr Dias Extraction of cataract Maria Luisa Bakari Comment on above: 2016 Dr Dias Extraction of cataract Martha n Jorge Luis Comment on above: 2016 Dr Dias Extraction of cataract Martha n Jorge Luis Comment on above: 2016 Dr Dias Extraction of cataract Martha n Jorge Luis Comment on above: 2016 Dr Dias Extraction of cataract Ashle y Cross SUEDING MACHINE OPERATOR Extraction of cataract Martha n Jorge Luis SUEDING MACHINE OPERATOR Extraction of cataract Jasmi n Gravius BACKFILLER Extraction of cataract Chris a Slarb SUEDING MACHINE OPERATOR Extraction of cataract Chris a Slarb SUEDING MACHINE OPERATOR Extraction of cataract Chris a Slarb SUEDING MACHINE OPERATOR Right ankle fracture Preston Vance Comment on above: has plate and screw Right ankle fracture Maria Luisa Jeanne Comment on above: has plate and screw Right ankle fracture Maria Luisa Jeanne Comment on above: has plate and screw Right ankle fracture Maria Luisa pizano Comment on above: has plate and screw Right ankle fracture Preston Kang Comment on above: has plate and screw Right ankle fracture Preston Kang Comment on above: has plate and screw Right ankle fracture Preston Kang Comment on above: has plate and screw Right hip replacement Preston Vance Comment on above: March 2013, Left hip done 2011 Right hip replacement Maria Luisa Angel Comment on above: March 2013, Left hip done 2011 Right hip replacement Maria Luisa Angel Comment on above: March 2013, Left hip done 2011 Right hip replacement Maria Luisa Villegas Comment on above: March 2013, Left hip done 2011 Right hip replacement Preston Kang Comment on above: March 2013, Left hip done 2011 Right hip replacement Preston Kang Comment on above: March 2013, Left hip done 2011 Right hip replacement Preston Kang Comment on above: March 2013, Left hip done 2011 Screening for malign ant neoplasm of breast Screening for malignant neoplasm of breast Lakisha Ciesa Squamous Preston Vance Comment on above: Cell Squamous Maria Luisa Angel Comment on above: Cell Squamous Maria Luisa Angel Comment on above: Cell Squamous Maria Luisa Villegas Comment on above: Cell Squamous Preston Kang Comment on above: Cell Squamous Preston Kang Comment on above: Cell Squamous Preston Kang Comment on above: Cell Subtotal thyroidectomy Martha Vance Comment on above: left side Subtotal thyroidectomy Taylo r Jeanne Comment on above: left side Subtotal thyroidectomy Taylo r Jeanne Comment on above: left side Subtotal thyroidectomy Maria Luisa Villegas Comment on above: left side Subtotal thyroidectomy Martha Kang Comment on above: left side Subtotal thyroidectomy Martha Kang Comment on above: left side Subtotal thyroidectomy Martha Kang Comment on above: left side Subtotal thyroidectomy Asher Kruse SUEDING MACHINE OPERATOR Subtotal thyroidectomy Martha Kang SUEDING MACHINE OPERATOR Subtotal thyroidectomy Jasmi n Gravius BACKFILLER Subtotal thyroidectomy Chris a Slarb SUEDING MACHINE OPERATOR Subtotal thyroidectomy Chris a Slarb SUEDING MACHINE OPERATOR Subtotal thyroidectomy Chris a Slarb SUEDING MACHINE OPERATOR Preston Kang LP N Olga Kruse LP N Preston Kang LP N Meena Gravius BACKFILLER Krista Slarb LP N Krista Slarb LP N Krista Slarb LP N Plan of Treatment Date Care Activity Detail Author Start: 06-27-2025 Ambulatory ECG [facility] Start: 06-27-2025 End: 06-27-2025 Evaluation of diagnostic study results [facility] Start: 10-03-2023 Patient discharge [facility] Start: 08-30-2023 Evaluation of diagnostic study results [facility] Start: 06-24-2023 [facility] Start: 06-24-2023 [facility] Start: 06-23-2023 Assay of amylase [facility] Work Phone: Start: 06-23-2023 Assay of lipase [facility]; [facility] Work Phone: Start: 06-23-2023 Blood count complete auto&auto difrntl wbc [facility]; [facility] Work Phone: Start: 06-23-2023 CBC, PLATELETS & MANUAL DIFF (11965) : 2-4 weeks [facility]; [facility] Work Phone: Start: 06-23-2023 Comprehensive metabolic panel [facility]; [facility] Work Phone: Start: 06-23-2023 Procedure Education [facility]; [facility] Work Phone: Start: 06-23-2023 Provider Instructions for Treatment [facility]; [facility] Work Phone: Start: 06-23-2023 Urnls dip stick/tablet reagent auto microscopy [facility]; [facility] Work Phone: Start: 02-20-2023 Assay of thyroid stimulating hormone tsh [facility]; [facility] Work Phone: Start: 02-20-2023 Blood count complete auto&auto difrntl wbc [facility]; [facility] Work Phone: Start: 02-20-2023 Comprehensive metabolic panel [facility]; [facility] Work Phone: Start: 02-20-2023 Creatinine other source [facility]; [facility] Work Phone: Start: 02-20-2023 Lipid panel [facility]; [facility] Work Phone: Start: 02-20-2023 Procedure Education [facility]; [facility] Work Phone: Start: 02-20-2023 Provider Instructions for Treatment [facility]; [facility] Work Phone: Start: 02-15-2023 Assay of thyroid stimulating hormone tsh [facility]; [facility] Work Phone: Start: 02-15-2023 Lipid panel [facility]; [facility] Work Phone: Start: 02-15-2023 Urnls dip stick/tablet rgnt non-auto w/o micrscp [facility]; [facility] Work Phone: Start: 02-15-2023 Comprehensive metabolic panel [facility]; [facility] Work Phone: Start: 08-22-2022 Assay of free thyroxine [facility]; [facility] Work Phone: Start: 08-22-2022 Assay of thyroid stimulating hormone tsh [facility]; [facility] Work Phone: Start: 08-22-2022 Assay of triiodothyronine t3 free [facility]; [facility] Work Phone: Start: 08-22-2022 Blood count complete auto&auto difrntl wbc [facility]; [facility] Work Phone: Start: 08-22-2022 Comprehensive metabolic panel [facility]; [facility] Work Phone: Start: 08-22-2022 Lipid panel [facility]; [facility] Work Phone: Start: 08-22-2022 Procedure Education [facility]; [facility] Work Phone: Start: 08-22-2022 Provider Instructions for Treatment [facility]; [facility] Work Phone: Start: 03-21-2022 Introduction of urinary catheter [facility] Work Phone: Start: 03-21-2022 Patient discharge [facility] Work Phone: Start: 03-21-2022 Ambulation therapy management [facility] Work Phone: Start: 03-21-2022 Continuous pulse oximetry [facility] Work Phone: Start: 03-21-2022 Elevation of head of bed [facility] Work Phone: Start: 03-21-2022 Incentive spirometry [facility] Work Phone: Start: 03-21-2022 Measuring intake and output [facility] Work Phone: Start: 03-21-2022 Notification of physician [facility] Work Phone: Start: 03-21-2022 End: 03-21-2022 Oxygen therapy [facility] Work Phone: Start: 03-21-2022 Patient education [facility] Work Phone: Start: 03-21-2022 Taking patient vital signs [facility] Work Phone: Start: 03-21-2022 Wound care [facility] Work Phone: Start: 03-21-2022 [facility] Work Phone: Start: 01-31-2022 Procedure Education [facility]; [facility] Work Phone: Start: 01-31-2022 Provider Instructions for Treatment [facility]; [facility] Work Phone: Start: 08-25-2021 Procedure Education [facility]; [facility] Work Phone: Start: 08-25-2021 Provider Instructions for Treatment [facility]; [facility] Work Phone: Start: 08-25-2021 Assay of thyroid stimulating hormone tsh [facility]; [facility] Work Phone: Start: 08-25-2021 Blood count complete auto&auto difrntl wbc [facility]; [facility] Work Phone: Start: 08-25-2021 Comprehensive metabolic panel [facility]; [facility] Work Phone: Start: 05-26-2021 Procedure Education [facility]; [facility] Work Phone: Start: 05-26-2021 Provider Instructions for Treatment [facility]; [facility] Work Phone: Start: 05-11-2021 Procedure Education [facility]; [facility] Work Phone: Start: 05-11-2021 Provider Instructions for Treatment [facility]; [facility] Work Phone: Start: 03-02-2021 Procedure Education [facility]; [facility] Work Phone: Start: 03-02-2021 Provider Instructions for Treatment [facility]; [facility] Work Phone: Start: 12-23-2020 Procedure Education [facility]; [facility] Work Phone: Start: 12-23-2020 Culture bct isol&prsmptv id isolate ea urine URINE ANTHONY CULTURE-IDENTIFICATN (17924) [facility]; [facility] Work Phone: Start: 11-13-2020 Procedure Education [facility]; [facility] Work Phone: Start: 11-13-2020 Provider Instructions for Treatment [facility]; [facility] Work Phone: Start: 08-14-2020 Procedure Education [facility] Work Phone: Start: 08-14-2020 Provider Instructions for Treatment [facility] Work Phone: Start: 08-14-2020 Blood count complete auto&auto difrntl wbc CBC, Platelets & Auto Diff (06409) [facility] Work Phone: Comment on above: November 2020 Start: 08-14-2020 Cobalamin (Vitamin B12) [Mass/Vol] VITAMIN B12 AND FOLATES (21575) [facility] Work Phone: Comment on above: November 2020 Start: 08-05-2020 Comprehensive metabolic panel METABOLIC PANEL, COMPREHENSIVE (45576) [facility] Work Phone: Start: 08-05-2020 Blood count complete automated CBC & PLATELETS (AUTO) (25946) [facility] Work Phone: Start: 08-05-2020 Lipid panel LIPID PANEL (42368) [facility] Work Phone: Start: 08-05-2020 TSH Qn TSH (THYROID STIMULATING HORMONE) (71256) [facility] Work Phone: Start: 05-13-2020 Hepatitis c antibody HEPATITIS C ANTIBODY (71022) [facility] Work Phone: Comment on above: 05-13-2020 please draw with next blood dra yarbrough Start: 04-02-2020 Procedure Education [facility] Work Phone: Start: 02-12-2020 Procedure Education [facility] Work Phone: Start: 02-12-2020 Provider Instructions for Treatment [facility] Work Phone: Start: 11-05-2019 Procedure Education [facility] Work Phone: Start: 08-13-2018 Procedure Education [facility] Work Phone: Start: 08-13-2018 Provider Instructions for Treatment [facility] Work Phone: Start: 08-06-2018 Procedure Education [facility] Work Phone: Start: 08-06-2018 Provider Instructions for Treatment [facility] Work Phone: Start: 08-06-2018 Cobalamin (Vitamin B12) mass conc VITAMIN B12 AND FOLATES (31621) [facility] Work Phone: Start: 07-25-2018 25 hydroxy includes fractions if performed CALCIFEDIOL (22088) [facility] Work Phone: Start: 07-25-2018 Lipid panel LIPID PANEL (77547) [facility] Work Phone: Start: 07-25-2018 Thyrotropin Qn TSH (THYROID STIMULATING HORMONE) (00531) [facility] Work Phone: Start: 07-25-2018 Comprehensive metabolic panel METABOLIC PANEL, COMPREHENSIVE (55820) [facility] Work Phone: Start: 07-25-2018 Blood count complete automated CBC & PLATELETS (AUTO) (36155) [facility] Work Phone: Start: 04-13-2018 Procedure Education [facility] Work Phone: Start: 04-13-2018 Provider Instructions for Treatment [facility] Work Phone: Start: 12-07-2017 Patient Education [facility] Work Phone: Start: 12-07-2017 Procedure Education [facility] Work Phone: Start: 12-07-2017 Provider Instructions for Treatment [facility] Work Phone: Start: 07-25-2017 Procedure Education [facility] Work Phone: Start: 07-25-2017 Provider Instructions for Treatment [facility] Work Phone: Start: 09-13-2016 Procedure Education [facility] Work Phone: Start: 06-14-2016 Provider Instructions for Treatment [facility] Work Phone: Start: 06-13-2016 Provider Instructions for Treatment [facility] Work Phone: Start: 12-11-2015 Provider Instructions for Treatment [facility] Work Phone: Start: 11-23-2015 Provider Instructions for Treatment [facility] Work Phone: Start: 10-26-2015 Patient Education [facility] Work Phone: Start: 10-26-2015 Provider Instructions for Treatment [facility] Work Phone: Start: 10-26-2015 Blood occult fecal hgb deter ia qual feces 1-3 [facility] Work Phone: Start: 09-01-2014 Procedure Education [facility] Work Phone: Start: 08-23-2013 Culture bacterial quanttative colony count urine [facility] Work Phone: Start: 07-16-2013 Comprehensive metabolic panel [facility] Work Phone: Comment on above: recheck in 3 months Start: 07-16-2013 Lipid panel [facility] Work Phone: Comment on above: recheck in 3 months Start: 06-24-2013 Hepatic function panel [facility] Work Phone: Start: 06-24-2013 Lipid panel [facility] Work Phone: Start: 06-24-2013 Patient Education [facility] Work Phone: Start: 05-07-2012 Patient Education [facility] Work Phone: Start: 05-07-2012 Provider Instructions for Treatment [facility] Work Phone: Start: 05-07-2012 Potassium molar conc Potassium Serum (97805) [facility] Work Phone: Start: 05-07-2012 Potassium serum plasma/whole blood [facility]; [facility] Work Phone: Start: 05-07-2012 Fibrin dgradj products d-dimer quantitative [facility] Work Phone: Start: 05-07-2012 Assay of magnesium [facility]; [facility] Work Phone: Start: 05-07-2012 Magnesium mass conc Magnesium (34423) [facility] Work Phone: Start: 05-03-2012 Provider Instructions for Treatment [facility] Work Phone: Start: 04-16-2012 Provider Instructions for Treatment [facility] Work Phone: Start: 03-26-2012 Provider Instructions for Treatment [facility] Work Phone: Start: 03-15-2012 Provider Instructions for Treatment [facility] Work Phone: Start: 12-22-2011 Hepatic function panel [facility] Work Phone: Start: 12-22-2011 Lipid panel [facility] Work Phone: Start: 08-15-2011 Provider Instructions for Treatment [facility] Work Phone: Start: 07-29-2011 Provider Instructions for Treatment [facility] Work Phone: Start: 06-30-2011 Assay of thyroid stimulating hormone tsh [facility]; [facility] Work Phone: Start: 06-30-2011 Thyrotropin Qn TSH (45522) [facility] Work Phone: Start: 06-30-2011 Urnls dip stick/tablet reagent auto microscopy [facility] Work Phone: Start: 06-30-2011 Comprehensive metabolic panel [facility] Work Phone: Start: 06-30-2011 Lipid panel [facility] Work Phone: Start: 06-30-2011 Blood count manual cell count each [facility] Work Phone: Start: 11-08-2010 Provider Instructions for Treatment [facility] Work Phone: Start: 10-27-2010 Patient Education [facility] Work Phone: Start: 10-27-2010 Provider Instructions for Treatment [facility] Work Phone: Start: 10-25-2010 Provider Instructions for Treatment [facility] Work Phone: Start: 10-25-2010 Assay of gammaglobulin iga igd igg igm each [facility] Work Phone: Start: 10-25-2010 Protein mass conc Celiac Disease Comphrehensive Profile (90785) [facility] Work Phone: Start: 10-25-2010 Hpylori breath anal urease act non-radact istope [facility] Work Phone: Start: 10-25-2010 Assay of lipase [facility] Work Phone: Start: 10-25-2010 Amylase enzyme act/vol AMYLASE (29597) [facility] Work Phone: Start: 10-25-2010 Assay of amylase [facility] Work Phone: Start: 10-25-2010 Hepatic function panel [facility] Work Phone: Start: 08-31-2010 Comprehensive metabolic panel [facility] Work Phone: Start: 08-31-2010 Sedimentation rate rbc non-automated [facility] Work Phone: Start: 08-31-2010 Blood count complete auto&auto difrntl wbc [facility] Work Phone: Start: 03-05-2010 Assay of thyroid stimulating hormone tsh [facility]; [facility] Work Phone: Start: 03-05-2010 Thyrotropin Qn TSH (08252) [facility] Work Phone: Start: 03-05-2010 Urine albumin quantitative [facility] Work Phone: Start: 03-05-2010 Comprehensive metabolic panel [facility] Work Phone: Start: 03-05-2010 Lipid panel [facility] Work Phone: Start: 03-05-2010 Blood count manual cell count each [facility] Work Phone: Start: 11-04-2008 Provider Instructions for Treatment [facility] Work Phone: Start: 08-10-2007 Hepatic function panel [facility] Work Phone: Start: 08-10-2007 Lipid panel [facility] Work Phone: Comment on above: in six months (approximately) Start: 09-26-2006 Basic metabolic panel calcium total [facility] Work Phone: Comment on above: 6 weeks Start: 09-26-2006 Assay of thyroid stimulating hormone tsh [facility]; [facility] Work Phone: Start: 09-26-2006 Thyrotropin Qn TSH (42439) [facility] Work Phone: Comment on above: 6 weeks Start: 09-26-2006 Hepatic function panel [facility] Work Phone: Comment on above: 4 months Start: 09-26-2006 Lipid panel [facility] Work Phone: Comment on above: 4 months Start: 06-27-2006 Provider Instructions for Treatment [facility] Work Phone: Start: 06-27-2006 Hepatic function panel [facility] Work Phone: Comment on above: in three months Start: 06-27-2006 Lipid panel [facility] Work Phone: Comment on above: in three months Start: 06-27-2006 Assay of magnesium [facility]; [facility] Work Phone: Start: 06-27-2006 Magnesium mass conc MAGNESIUM (70032) [facility] Work Phone: Start: 06-27-2006 Potassium molar conc POTASSIUM SERUM (04906) [facility] Work Phone: Start: 06-27-2006 Potassium serum plasma/whole blood [facility]; [facility] Work Phone: Start: 06-27-2006 Assay of thyroid stimulating hormone tsh [facility]; [facility] Work Phone: Start: 06-27-2006 Thyrotropin Qn TSH (78488) [facility] Work Phone: Comment on above: in three months now 24 Hour ECG [facility] Patient referral [facility] Work Phone: US Heart [facility] US Thyroid gland [facility] Work Phone: [facility] Work Phone: [facility] Work Phone: [facility] Work Phone: [facility] Work Phone: [facility] Work Phone: [facility] Work Phone: [facility] Work Phone[facility] Work Phone: [facility] Work Phone: [facility] Work Phone: [facility] Work Phone[facility] Work Phone: [facility] Work Phone: [facility] Work Phone: [facility] Work Phone: [facility] Work Phone: [facility] Work Phone: [facility] Work Phone: [facility] Work Phone: [facility] Work Phone: [facility] Work Phone: [facility] Work Phone: [facility] Work Phone: [facility] Work Phone: [facility] Work Phone: [facility] Work Phone: [facility] Work Phone: [facility] Work Phone: [facility] Work Phone: [facility] Work Phone: [facility] Work Phone: [facility] Work Phone: [facility] Work Phone: [facility] Work Phone: [facility] Work Phone: [facility] Work Phone[facility] Work Phone[facility] Work Phone[facility] Work Phone[facility] Work Phone: [facility]; [facility] Work Phone: [facility]; [facility] Work Phone: [facility]; [facility] Work Phone: [facility]; [facility] Work Phone: [facility]; [facility] Work Phone: [facility]; [facility] Work Phone: [facility]; [facility] Work Phone: [facility]; [facility] Work Phone: Immunizations Immunization Date Immunization Notes Care Provider Chelly heart 09-24-2012 varicella zoster imm une globulin Lakisha Blnacasanthoshbernadine [facility] Work Phone: Payers Date Payer Category Payer Self-pay [id number] 2016 Private Health Insurance [facility] [id number] 2010 Medicare [id number] 1998 Unknown [id number] 1945 Unknown [id number] [id number] [id number] Unknown Unknown [id number] 2.16.8 [id number] Unknown [id number] 2.16.8 [id number] Unknown [id number] 2.16.8 [id number] Unknown [id number] 2.16.8 [id number] Unknown [id number] 2.16.8 [id number] Unknown [id number] 2.16.8 [id number] Unknown [id number] 2.16.8 [id number] Unknown [id number] 2.16.8 [id number] Unknown [id number] 2.16.8 [id number] Social History Date Type Detail Facility Alcohol Use Former smoker [facility] Work Phone: Comment on above: Occasional alcohol u se 2006 1-2 QD Retired [employer] Lives alone Tobacco use: Former smoker. [facility] Work Phone: Former smoker. [facility]; [facility] Work Phone: Start: 01-27-2022 End: 11-02-2023 Tobacco smoking status FLIS Unknown if ever smoked [facility] Start: 1945 Sex Assigned At Female [facility] Start: 11-02-2023 Tobacco smoking stat us FLIS Ex-smoker (finding) [facility] Start: 11-22-2024 End: 12-25-2024 Sex Female (finding) [facility] Sex Female [facility] Goals Date Patient Goal Desired Activity /State Mental Status Date Assessment Result Facility 03-21-2022 Cognitive function Voice/Name [facility] Work Phone: Clinical Notes 09-27-2023 to 06-27-2025 Note Date & Type Note Facility 06-27-2025 Progress note [facility] 02-07-2025 Radiology Diagnostic study note [facility] Imaging Services [address] [place] [id number] Thyroid MR#: [id number] Acct: [id number] Name: KAMRYN MUÑOZ Rep #: [id number] : 1945 F 79 From: Everette Rabago MD PCP: Dian Duron NP-C Status: REG C LI Study:Thyroid Date of Exam: 02/05/25 Exam# [id number] Ordering Dr: Karina Deleon MD PROCEDURE: THYROID 02/05/2025 REASON FOR EXAM: THYROID NODULE TECHNIQUE: High-frequency thyroid ultrasound, including grayscale and color-flow images. REFERENCE LINKS: TI-RADS Chart: [email or web address] TI-RADS Calculator Tool with Reference Images: [email or web address] COMPARISON: July 22, 2024. FINDINGS: Right thyroid lobe size: 4.9 cm 1.9 cm 1.6 cm Left thyroid lobe size: 8 cm x 5.4 cm 3.9 cm Isthmus: 0.36 cm Background parenchymal echotexture is heterogeneous Nodules: Stable 1 cm x 0.5 cm 0.3 cm hypoechoic nodule in the midportion of the right lobe. Stable 1.8 cm 1.5 cm 0.8 cm cystic nodule with debris within it. Stable 7 mm x 6 mm x 6 mm hypoechoic nodule in the lowerpole. Stable dominant complex nodule in the lower pole of the left lobe measuring 3.9 cm 4.4 cm 3.5 cm. Stable heterogeneous hypoechoic nodule measuring 1.7 cm 1.9 cm 1.7 cm. US/Thyroid IMPRESSION: Stable examination. Yearly follow-up recommended. RECOMMENDATION: Based on most suspicious nodule. Nodule size = largest diameter Only evaluate nodule if =>5 mm. Growth > 20% in 2 dimensions = worsening. Follow up to 4 nodules. Recommend biopsy for no more than 2 nodules. Reading Location: [facility]- CC: FLIGHT STEWARD-C Dian Duron; Dr. Bro Deleon MD ~ Card Room Manager: Signed [facility] 01-13-2025 Evaluation note Diagnosis Onset Date Resolution Essential hypertension acute 2024 12:53pm Premature ventricular contractions acute January 13, 2025 12:53pm Hyperlipidemia chronic January 13, 12:53pm Paroxysmal atrial fibrillation chronic January 13, 2025 12:53pm [facility] Work Phone: [phone] Evaluation note* Diagnosis Onset Date Resolution Status Admit Date H/O partial thyroidectomy acute August 06, 2024 12:35pm Thyroid nodule acute July 132023 12:35pm [facility] Work Phone: [phone] Procedure [facility] 10-03-2023 Procedure [facility]01-17-2024 History and physical note Author Kp Lopez [facility] September 27, 2023 4:56pm Note Date/Time September 27, 2023 1 0:56am [facility] Medical Records Department [address] [place] [address] History & Physical Exam 09/27/23 1051 MR#: [id number] Acct: [id number] Name: KAMRYN MUÑOZ Rep #:[id number] : 1945 77 From: Kp Lopez MD PCP: REBA Joyner Status:PRE S DC Location: [facility] History and Physical Date of Admission: 10/03/23 Kamryn Muñoz is a 77 year-old female who presents for a cardioversion. She has a history of Atrial fibrillation, hypertension, hyperlipidemia, paroxysmal fibrillation and increased shortness of breath. She did undergo an echocardiogram which demonstrated normal LV function. She did have a stress test which was abnormal however she did undergo a diagnostic heart catheterizationwhich demonstrated normal coronary arteries. PVCs were noted on her testing that she had done. She did restart her metoprolol but she states that this significantly improved with her symptoms. Pt is noted to be in Afib. She was noted to be in Afib at PCP office last week. She is not aware of this. She does not have any chest pain/heaviness. She does not have any worsening SOB. She does not have any palpations that she is aware of. She does not have any lightheadedness/dizziness. She does not have any edema. Intake Vital Signs See EMR Allergies See EMR Medications See EMR [facility] Medical History Alcohol use Arthritis Arthritis Back pain Cancer Cardiology follow-up encounter Cluster headache Essential hypertension Former smoker Gastric reflux History of echocardiogram History of IBS History of irregular heartbeat History of pain when walking History of skin cancer History of stress test Hyperlipidemia Hypertension Paroxysmal atrial fibrillation Shortness of breath on exertion Thyroid disease Vertigo Wears glasses Surgical History H/O bilateral hip replacements H/O partial thyroidectomy History of bilateral breast reduction surgery History of cardiac catheterization History of hysteroscopy History of left heart catheterization (10/11/21) History of open reduction and internal fixation (ORIF) procedure Hx laparoscopic cholecystectomy Hx of left cataract extraction Hx of right cataract extraction Family History Father aortic aneurysm Heart diseaseSister SeizuresBrother coronary stent Hearing loss Heart disease DiabetesMother Myocardial infarction Anesthesia complication Hearing loss Heart disease Social History household members: none current occupational status: retired Smoking Status: Former smoker alcohol intake: current [...] ROS Const Const: Negative for fatigue, weakness, fever(s) or headache(s) Eyes Eyes: Negative for blind spots, loss of peripheral vision or transient loss of vision ENT ENT: Negative for headache(s), dizziness, tinnitus, Nosebleed/epistaxis or balance problems Cardio Chest Pain: No Palpitations: No Edema: None Muscle aches with walking: None Resp Respiratory: Negative for SOB with activity, SOB at rest, SOB orthopnea\SOB lying down or Cough GI GI: Negative nausea, vomiting, heartburn or vomiting blood/hematemesis : Negative for hematuria Musc Musc: Negative for muscle aches/ myalgia, muscle weakness, joint pain or balanceproblems Neuro Neuro: Negative for dizziness, lightheadedness, near syncope, syncope, orthostatic symptoms, headache(s) or weakness Marquise Hematologic/Lymphatic: Negative for easy bleeding Endo Endo: Negative for fatigue Cardiology Exam Const Appearance: cooperative, healthy appearing, comfortable, no acute distress and well developed Orientation: alert, awake and oriented x3 Head Head: normal to inspection Ears: hearing grossly normal bilaterally Nose: external nose normal Face and Sinus: face symmetric Mouth: oral mucosae normal, lip normal and moist mucous membranes Eyes General: appearance normal, both eyes and all related structures Eyelids: eyelids normal Conjunctivae: conjunctivae normal Pupils: PERRL EOM: EOM intact bilaterally Neck Neck: normal visual inspection and trachea midline; Negative no JVD Carotids: Negative bruit Chest Chest inspection: normal inspection of the chest Auscultation: Bilateral: Clear to Auscultation Cardio Palpation: normal PMI Rate: regular rate Rhythm: irregularly irregular Heart sounds: S1 normal and S2 normal; Negative rub, gallop or murmur GI GI: soft, no hepatosplenomegaly and bowel sounds present Neuro General: patient alert, patient awake, patient oriented x3 and CN's II-XI intactbilaterally Extremities Pulses: Normal: Right Posterior Tibial Pulse, Left Posterior Tibial Pulse, RightRadial Pulse and Left Radial Pulse Lower Extremity Edema: None: Bilateral Psych Psychological: normal affect Supplemental Info Supplemental Information Cardiac cath 2016: 1. Normal left main coronary artery. 2. Left anterior descending artery with no high-grade stenosis. 3. Left circumflex artery, which is nondominant with no significant stenosis. 4. Right coronary artery, which is dominant with no significant stenosis. 5. Preserved ejection fraction. Cardiac cath 2021: Normal coronary arteries Normal LV size, wall motion,and systolic function RECOMMENDATIONS Medical therapy DESCRIPTION OF PROCEDURE The patient arrived to the procedure lab. The risks and benefits of the procedure as well as a full description of our services here and current unavailability of surgical backup were fully explained to the patient and/or their significant other prior to the catheterization. The Timeout was completed,verifying the correct patient and procedure. The patient's procedural site was prepped and draped in the usual fashion. Local anesthetic was given subcutaneously to right radial region with Lidocaine 2%. Using a modified Seldinger technique, arterial access was obtained via the right radial artery, a6Fr sheath was inserted. Left Coronary Artery selective angiography was performed in multiple views using a 5 Fr. 4.0 [place] catheter. Right Coronary Artery selective angiography was then performed in multiple views using a 5 Fr. 4.0 [place] catheter. Left Ventriculography was performed in BUSTILLOS projection using a 5 Fr. Pigtail catheter. LV to AO pullback pressures were then recorded.The arterial sheath was pulled and a TR Band was applied for hemostasis CORONARY ANGIOGRAPHY DOMINANCE: Co- Dominant LEFT HEART ASSESSMENT Normal LV wall motion Normal Left Ventricular systolic function LEFT MAIN: Angiographically normal LEFT ANTERIOR DESCENDING ARTERY: No significant disease noted CIRCUMFLEX ARTERY: Mild luminal irregularities RIGHT CORONARY ARTERY: Angiographically normal Echo 2021: Normal LV size. Left ventricular systolic function is normal. The estimated ejection fraction is 60 %. Stage 1 diastolic dysfunction. Mild (1+) eccentric aortic valve insufficiency. Contrast injection was performed. Exercise myocardial perfusion stress test 2021: 75-year-old lady with a history of exertional shortness of breath. Stress protocol: Resting EKG demonstrates normal sinus rhythm with a rate of 87 bpm normal intervals are noted resting blood pressure is 146/86 mmHg. The patient exercised according to regular Dexter protocol for total duration of 3 minutes and 34 seconds. The maximum heart rate attained was 146 bpm which was 100% of maximal particular heart rate the maximum workload was 5.9 metabolic equivalents. At rest there were no ST or T wave changes noted to suggest abnormal flow reserve at peak exercise upsloping ST changes were noted with did not meet the criteria for ischemia. No clinical angina was noted the patient was noted to be short of breath. The peak blood pressure was 150/78 mmHg. Myocardial perfusion protocol. 14.5 mCi of technetium 99m sestamibi was injected at rest. The patient exercised according to regular Dexter protocol for 3-1/2 minutes and at peak exercise 44.5 mCi of technetium 99m sestamibi was injected stress images were obtained stress and rest images were reconstructed and compared in the short axis vertical long and horizontal long axis. Gated images were also obtained per Perfusion SPECT analysis: Review of the stress images demonstrate reduced uptake of tracer noted in the proximal and mid anterior wall with the apex being well perfused. The rest of the escobedo are normally perfused. The resting images demonstrate normal perfusion in all the rest of the escobedo. The gated ejection fraction is noted leyla 79%. Conclusion: Abnormal exercise myocardial perfusion stress test at a low workload with basal and mid anterior ischemia. Preserved ejection fraction Echocardiogram 09/26/2023: Interpretation Summary Normal LV size. Left ventricular systolic function is normal. The estimated ejection fraction is 65 %. Mild concentric left ventricular hypertrophy. Pulmonary artery systolic pressure is 30 mmHg. Assessment and Plan Assessment and Plan (1) Paroxysmal atrial fibrillation: Status: Chronic Plan: Patient appears to be in persistent atrial fibrillation. Her echocardiogram from09/26/2023 demonstrated ejection fraction of 65%, and normal atrial size. She does have a CHADVASC2 of 3. She has been anticoagulated for 30 days with Eliquis. She will continue metoprolol succinate 50mg daily. She will proceed with a DCCV. 09/27/23 1655 <Electronically signed by Kp Lopez MD> Cosigner Signature (if applicable): 09/27/23 1056 <Electronically signed by Bharti BRITTON> CC: REBA Duron; REBA Parks; Dr. Kp Lopez MD~ Signed [facility] Work Phone: Evaluation note* Diagnosis Onset Date Resolution Status Essential hypertension acute Premature ventricular contractions acute Paroxysmal atrial fibrillation chronic Cluster headaches acute Migraine headache acute Tension headache acute [facility] Work Phone: Evaluation note* Diagnosis Onset Date Resolution Status Cluster headaches acute Migraine headache acute Tension headache acute [facility] Work Phone: Evaluation note* Diagnosis Onset Date Resolution Status Essential hypertension acute Premature ventricular contractions acute Paroxysmal atrial fibrillation [facility] Work Phone: Evaluation noteNo assessment information available [facility] Work Phone: Evaluation note* Diagnosis Onset Date Resolution Status Essential hypertension acute Premature ventricular contractions acute Hyperlipidemia chronic Paroxysmal atrial fibrillation [facility] Work Phone: Evaluation note* Diagnosis Onset Date Resolution Status Essential hypertension acute Premature ventricular contractions acute Hyperlipidemia chronic Paroxysmal atrial fibrillation chronic Essential hypertension acute Premature ventricular contractions acute Hyperlipidemia chronic Paroxysmal atrial fibrillation [facility] Work Phone: Evaluation note* Diagnosis Onset Date Resolution Status Admit Date Essential hypertension acute Oc tober 2024 9:16am Premature ventricular contractions acute June 27 9:16am Hyperlipidemia chronic June 272024 9:16am Paroxysmal atrial fibrillation chron ic June 27, 2025 9:16am [facility] Work Phone: Hospital Discharge instructionsAmbulatory Orders* Internal Medicine Location: None Selected [facility] Work Phone: Instructions* Name Dates Details Patient Instructions Indication:Nonsmoker Start:23-Dec-2020 Instruction Type:Provider Instructions for Treatment How to Access Health Informa tion Online using Patient Portal and 3rd Green Party Apps Indication:Nonsmoker Start:23-Dec-2020 Instruction Type:Patient Education Patient Instructions Indication:Nonsmoker Start:13-Nov-2020 Instruction Type:Provider Instructions for Treatment How to Access Health Informa tion Online using Patient Portal and [email or web address] Indication:Nonsmoker Start:13-Nov-2020 Instruction Type:Patient Education How to access health informa tion online Indication:Nonsmoker Start:14-Aug-2020 Instruction Type:Patient Education How to access health informa tion online - Detail Indication:Nonsmoker Start:14-Aug-2020 Instruction Type:Patient Education Patient Instructions Indication:History of atrial fibrillation Start:14-Aug-2020 Instruction Type:Provider Instructions for Treatment How to access health informa tion online Indication:BMI 37.0-37.9, adult Start:02-Apr-2020 Instruction Type:Patient Education How to access health informa tion online - Detail Indication:BMI 37.0-37.9, adult Start:02-Apr-2020 Instruction Type:Patient Education Patient Instructions Indication:BMI 37.0-37.9, adult Start:02-Apr-2020 Instruction Type:Provider Instructions for Treatment How to access health informa tion online Indication:Nonsmoker Start:12-Feb-2020 Instruction Type:Patient Education How to access health informa tion online - Detail Indication:Nonsmoker Start:12-Feb-2020 Instruction Type:Patient Education Patient Instructions Indication:Nonsmoker Start:12-Feb-2020 Instruction Type:Provider Instructions for Treatment How to access health informa tion online Indication:BMI 37.0-37.9, adult Start:05-Nov-2019 Instruction Type:Patient Education How to access health informa tion online - Detail Indication:BMI 37.0-37.9, adult Start:05-Nov-2019 Instruction Type:Patient Education Patient Instructions Indication:BMI 37.0-37.9, adult Start:05-Nov-2019 Instruction Type:Provider Instructions for Treatment How to access health informa tion online Indication:Nonsmoker Start:13-Aug-2018 Instruction Type:Patient Education How to access health informa tion online - Detail Indication:Nonsmoker Start:13-Aug-2018 Instruction Type:Patient Education Patient Instructions Indication:Nonsmoker Start:13-Aug-2018 Instruction Type:Provider Instructions for Treatment How to access health informa tion online Indication:Nonsmoker Start:06-Aug-2018 Instruction Type:Patient Education How to access health informa tion online - Detail Indication:Nonsmoker Start:06-Aug-2018 Instruction Type:Patient Education Patient Instructions Indication:Nonsmoker Start:06-Aug-2018 Instruction Type:Provider Instructions for Treatment How to access health informa tion online Indication:Sinusitis, acute Start:13-Apr-2018 Instruction Type:Patient Education How to access health informa tion online - Detail Indication:Sinusitis, acute Start:13-Apr-2018 Instruction Type:Patient Education Patient Instructions Indication:Sinusitis, acute Start:13-Apr-2018 Instruction Type:Provider Instructions for Treatment How to access health informa tion online Indication:BMI 35.0-35.9,adult Start:07-Dec-2017 Instruction Type:Patient Education How to access health informa tion online - Detail Indication:BMI 35.0-35.9,adult Start:07-Dec-2017 Instruction Type:Patient Education Patient Instructions Indication:Sore throat Start:07-Dec-2017 Instruction Type:Provider Instructions for Treatment DISCONTINUED - LIPID PANEL ( [id number]) Indication:Mixed Hyperlipidemia Start:25-Jul-2017 Instruction Type:Patient Education DISCONTINUED - HEPATIC FUNCT ION PANEL ([id number]) Indication:Mixed Hyperlipidemia Start:25-Jul-2017 Instruction Type:Patient Education How to access health informa tion online Indication:Hypertension Start:25-Jul-2017 Instruction Type:Patient Education How to access health informa tion online - Detail Indication:Hypertension Start:25-Jul-2017 Instruction Type:Patient Education Patient Instructions Indication:Hypertension Start:25-Jul-2017 Instruction Type:Provider Instructions for Treatment How to access health informa [employer] online Indication:BMI 34.0-34.9,adult Start:13-Sep-2016 Instruction Type:Patient Education How to access health informa tion online - Detail Indication:BMI 34.0-34.9,adult Start:13-Sep-2016 Instruction Type:Patient Education Patient Instructions Indication:BMI 34.0-34.9,adult Start:13-Sep-2016 Instruction Type:Provider Instructions for Treatment Patient Instructions Indication:Squamous cell carcinoma, face Start:27-Jun-2016 Instruction Type:Provider Instructions for Treatment Patient Instructions Indication:Flank pain Start:26-Oct-2015 Instruction Type:Provider Instructions for Treatment Patient Instructions Indication:Acute pharyngitis Start:01-Sep-2014 Instruction Type:Provider Instructions for Treatment How to access health informa tion online Indication:Acute pharyngitis Start:01-Sep-2014 Instruction Type:Patient Education How to access health informa tion online - Detail Indication:Acute pharyngitis Start:01-Sep-2014 Instruction Type:Patient Education Patient Instructions Indication:Acute pharyngitis Start:01-Sep-2014 Instruction Type:Provider Instructions for Treatment Patient Instructions Indication:Allergic Rhinitis Start:07-Jan-2014 Instruction Type:Provider Instructions for Treatment Patient Instructions Indication:Hyperglyceridemia Start:07-Jan-2014 Instruction Type:Provider Instructions for Treatment obesity counseling Indication:BMI 34.0-34.9,adult Start:24-Jun-2013 Instruction Type:Provider Instructions for Treatment Patient Instructions Indication:Need for prophylactic vaccination and inoculation against influenza Start:24-Jun-2013 Instruction Type:Provider Instructions for Treatment Patient Instructions Indication:Hypertension Start:26-Oct-2012 Instruction Type:Provider Instructions for Treatment patient instrucitons: stop h yzaar, start new rate limiting step and bp control rx at pharm Indication:Atrial fibrillation Start:07-May-2012 Instruction Type:Provider Instructions for Treatment [facility]; [facility] Work Phone: Instructions* Name Dates Details How to Access Health [employer] using Patient Portal and [employer] Apps Indication:Nonsmoker Start:02-Mar-2021 Instruction Type:Patient Education Patient Instructions Indication:Nonsmoker Start:02-Mar-2021 Instruction Type:Provider Instructions for Treatment Patient Instructions Indication:Nonsmoker Start:23-Dec-2020 Instruction Type:Provider Instructions for Treatment How to Access Health Informa tion Online using Patient Portal and [employer] Apps Indication:Nonsmoker Start:23-Dec-2020 Instruction Type:Patient Education Patient Instructions Indication:Nonsmoker Start:13-Nov-2020 Instruction Type:Provider Instructions for Treatment How to Access Health Informa tion Online using Patient Portal and [employer] Apps Indication:Nonsmoker Start:13-Nov-2020 Instruction Type:Patient Education How to access health informa tion online Indication:Nonsmoker Start:14-Aug-2020 Instruction Type:Patient Education How to access health informa tion online - Detail Indication:Nonsmoker Start:14-Aug-2020 Instruction Type:Patient Education Patient Instructions Indication:History of atrial fibrillation Start:14-Aug-2020 Instruction Type:Provider Instructions for Treatment How to access health informa tion online Indication:BMI 37.0-37.9, adult Start:02-Apr-2020 Instruction Type:Patient Education How to access health informa tion online - Detail Indication:BMI 37.0-37.9, adult Start:02-Apr-2020 Instruction Type:Patient Education Patient Instructions Indication:BMI 37.0-37.9, adult Start:02-Apr-2020 Instruction Type:Provider Instructions for Treatment How to access health informa tion online Indication:Nonsmoker Start:12-Feb-2020 Instruction Type:Patient Education How to access health informa tion online - Detail Indication:Nonsmoker Start:12-Feb-2020 Instruction Type:Patient Education Patient Instructions Indication:Nonsmoker Start:12-Feb-2020 Instruction Type:Provider Instructions for Treatment How to access health informa tion online Indication:BMI 37.0-37.9, adult Start:05-Nov-2019 Instruction Type:Patient Education How to access health informa tion online - Detail Indication:BMI 37.0-37.9, adult Start:05-Nov-2019 Instruction Type:Patient Education Patient Instructions Indication:BMI 37.0-37.9, adult Start:05-Nov-2019 Instruction Type:Provider Instructions for Treatment How to access health informa tion online Indication:Nonsmoker Start:13-Aug-2018 Instruction Type:Patient Education How to access health informa tion online - Detail Indication:Nonsmoker Start:13-Aug-2018 Instruction Type:Patient Education Patient Instructions Indication:Nonsmoker Start:13-Aug-2018 Instruction Type:Provider Instructions for Treatment How to access health informa tion online Indication:Nonsmoker Start:06-Aug-2018 Instruction Type:Patient Education How to access health informa tion online - Detail Indication:Nonsmoker Start:06-Aug-2018 Instruction Type:Patient Education Patient Instructions Indication:Nonsmoker Start:06-Aug-2018 Instruction Type:Provider Instructions for Treatment How to access health informa tion online Indication:Sinusitis, acute Start:13-Apr-2018 Instruction Type:Patient Education How to access health informa tion online - Detail Indication:Sinusitis, acute Start:13-Apr-2018 Instruction Type:Patient Education Patient Instructions Indication:Sinusitis, acute Start:13-Apr-2018 Instruction Type:Provider Instructions for Treatment How to access health informa tion online Indication:BMI 35.0-35.9,adult Start:07-Dec-2017 Instruction Type:Patient Education How to access health informa tion online - Detail Indication:BMI 35.0-35.9,adult Start:07-Dec-2017 Instruction Type:Patient Education Patient Instructions Indication:Sore throat Start:07-Dec-2017 Instruction Type:Provider Instructions for Treatment DISCONTINUED - LIPID PANEL ( [id number]) Indication:Mixed Hyperlipidemia Start:25-Jul-2017 Instruction Type:Patient Education DISCONTINUED - HEPATIC FUNCT ION PANEL ([id number]) Indication:Mixed Hyperlipidemia Start:25-Jul-2017 Instruction Type:Patient Education How to access health informa tion online Indication:Hypertension Start:25-Jul-2017 Instruction Type:Patient Education How to access health informa tion online - Detail Indication:Hypertension Start:25-Jul-2017 Instruction Type:Patient Education Patient Instructions Indication:Hypertension Start:25-Jul-2017 Instruction Type:Provider Instructions for Treatment How to access health informa tion online Indication:BMI 34.0-34.9,adult Start:13-Sep-2016 Instruction Type:Patient Education How to access health informa tion online - Detail Indication:BMI 34.0-34.9,adult Start:13-Sep-2016 Instruction Type:Patient Education Patient Instructions Indication:BMI 34.0-34.9,adult Start:13-Sep-2016 Instruction Type:Provider Instructions for Treatment Patient Instructions Indication:Squamous cell carcinoma, face Start:27-Jun-2016 Instruction Type:Provider Instructions for Treatment Patient Instructions Indication:Flank pain Start:26-Oct-2015 Instruction Type:Provider Instructions for Treatment Patient Instructions Indication:Acute pharyngitis Start:01-Sep-2014 Instruction Type:Provider Instructions for Treatment How to access health informa tion online Indication:Acute pharyngitis Start:01-Sep-2014 Instruction Type:Patient Education How to access health informa tion online - Detail Indication:Acute pharyngitis Start:01-Sep-2014 Instruction Type:Patient Education Patient Instructions Indication:Acute pharyngitis Start:01-Sep-2014 Instruction Type:Provider Instructions for Treatment Patient Instructions Indication:Allergic Rhinitis Start:07-Jan-2014 Instruction Type:Provider Instructions for Treatment Patient Instructions Indication:Hyperglyceridemia Start:07-Jan-2014 Instruction Type:Provider Instructions for Treatment obesity counseling Indication:BMI 34.0-34.9,adult Start:24-Jun-2013 Instruction Type:Provider Instructions for Treatment Patient Instructions Indication:Need for prophylactic vaccination and inoculation against influenza Start:24-Jun-2013 Instruction Type:Provider Instructions for Treatment Patient Instructions Indication:Hypertension Start:26-Oct-2012 Instruction Type:Provider Instructions for Treatment patient instrucitons: stop h yzaar, start new rate limiting step and bp control rx at pharm Indication:Atrial fibrillation Start:07-May-2012 Instruction Type:Provider Instructions for Treatment [facility]; [facility] Work Phone: Instructions* Name Dates Details Patient Instructions Indication:Nonsmoker Start:25-Aug-2021 Instruction Type:Provider Instructions for Treatment How to Access Health Informa tion Online using Patient Portal and [employer] Indication:Nonsmoker Start:25-Aug-2021 Instruction Type:Patient Education Patient Instructions Indication:BMI 37.0-37.9, adult Start:26-May-2021 Instruction Type:Provider Instructions for Treatment How to Access Health Informa tion Online using Patient Portal and [employer] Indication:BMI 37.0-37.9, adult Start:26-May-2021 Instruction Type:Patient Education Patient Instructions Indication:BMI 37.0-37.9, adult Start:11-May-2021 Instruction Type:Provider Instructions for Treatment How to Access Health Informa tion Online using Patient Portal and [employer] Indication:BMI 37.0-37.9, adult Start:11-May-2021 Instruction Type:Patient Education How to Access Health Informa tion Online using Patient Portal and [employer] Apps Indication:Nonsmoker Start:02-Mar-2021 Instruction Type:Patient Education Patient Instructions Indication:Nonsmoker Start:02-Mar-2021 Instruction Type:Provider Instructions for Treatment Patient Instructions Indication:Nonsmoker Start:23-Dec-2020 Instruction Type:Provider Instructions for Treatment How to Access Health Informa tion Online using Patient Portal and [employer] Indication:Nonsmoker Start:23-Dec-2020 Instruction Type:Patient Education Patient Instructions Indication:Nonsmoker Start:13-Nov-2020 Instruction Type:Provider Instructions for Treatment How to Access Health Informa tion Online using Patient Portal and [employer] Indication:Nonsmoker Start:13-Nov-2020 Instruction Type:Patient Education How to access health informa tion online Indication:Nonsmoker Start:14-Aug-2020 Instruction Type:Patient Education How to access health informa tion online - Detail Indication:Nonsmoker Start:14-Aug-2020 Instruction Type:Patient Education Patient Instructions Indication:History of atrial fibrillation Start:14-Aug-2020 Instruction Type:Provider Instructions for Treatment How to access health informa tion online Indication:BMI 37.0-37.9, adult Start:02-Apr-2020 Instruction Type:Patient Education How to access health informa tion online - Detail Indication:BMI 37.0-37.9, adult Start:02-Apr-2020 Instruction Type:Patient Education Patient Instructions Indication:BMI 37.0-37.9, adult Start:02-Apr-2020 Instruction Type:Provider Instructions for Treatment How to access health informa tion online Indication:Nonsmoker Start:12-Feb-2020 Instruction Type:Patient Education How to access health informa tion online - Detail Indication:Nonsmoker Start:12-Feb-2020 Instruction Type:Patient Education Patient Instructions Indication:Nonsmoker Start:12-Feb-2020 Instruction Type:Provider Instructions for Treatment How to access health informa tion online Indication:BMI 37.0-37.9, adult Start:05-Nov-2019 Instruction Type:Patient Education How to access health informa tion online - Detail Indication:BMI 37.0-37.9, adult Start:05-Nov-2019 Instruction Type:Patient Education Patient Instructions Indication:BMI 37.0-37.9, adult Start:05-Nov-2019 Instruction Type:Provider Instructions for Treatment How to access health informa tion online Indication:Nonsmoker Start:13-Aug-2018 Instruction Type:Patient Education How to access health informa tion online - Detail Indication:Nonsmoker Start:13-Aug-2018 Instruction Type:Patient Education Patient Instructions Indication:Nonsmoker Start:13-Aug-2018 Instruction Type:Provider Instructions for Treatment How to access health informa tion online Indication:Nonsmoker Start:06-Aug-2018 Instruction Type:Patient Education How to access health informa tion online - Detail Indication:Nonsmoker Start:06-Aug-2018 Instruction Type:Patient Education Patient Instructions Indication:Nonsmoker Start:06-Aug-2018 Instruction Type:Provider Instructions for Treatment How to access health informa tion online Indication:Sinusitis, acute Start:13-Apr-2018 Instruction Type:Patient Education How to access health informa tion online - Detail Indication:Sinusitis, acute Start:13-Apr-2018 Instruction Type:Patient Education Patient Instructions Indication:Sinusitis, acute Start:13-Apr-2018 Instruction Type:Provider Instructions for Treatment How to access health informa tion online Indication:BMI 35.0-35.9,adult Start:07-Dec-2017 Instruction Type:Patient Education How to access health informa tion online - Detail Indication:BMI 35.0-35.9,adult Start:07-Dec-2017 Instruction Type:Patient Education Patient Instructions Indication:Sore throat Start:07-Dec-2017 Instruction Type:Provider Instructions for Treatment DISCONTINUED - LIPID PANEL ( [id number]) Indication:Mixed Hyperlipidemia Start:25-Jul-2017 Instruction Type:Patient Education DISCONTINUED - HEPATIC FUNCT ION PANEL ([id number]) Indication:Mixed Hyperlipidemia Start:25-Jul-2017 Instruction Type:Patient Education How to access health informa tion online Indication:Hypertension Start:25-Jul-2017 Instruction Type:Patient Education How to access health informa tion online - Detail Indication:Hypertension Start:25-Jul-2017 Instruction Type:Patient Education Patient Instructions Indication:Hypertension Start:25-Jul-2017 Instruction Type:Provider Instructions for Treatment How to access health informa tion online Indication:BMI 34.0-34.9,adult Start:13-Sep-2016 Instruction Type:Patient Education How to access health informa tion online - Detail Indication:BMI 34.0-34.9,adult Start:13-Sep-2016 Instruction Type:Patient Education Patient Instructions Indication:BMI 34.0-34.9,adult Start:13-Sep-2016 Instruction Type:Provider Instructions for Treatment Patient Instructions Indication:Squamous cell carcinoma, face Start:27-Jun-2016 Instruction Type:Provider Instructions for Treatment Patient Instructions Indication:Flank pain Start:26-Oct-2015 Instruction Type:Provider Instructions for Treatment Patient Instructions Indication:Acute pharyngitis Start:01-Sep-2014 Instruction Type:Provider Instructions for Treatment How to access health informa tion online Indication:Acute pharyngitis Start:01-Sep-2014 Instruction Type:Patient Education How to access health informa tion online - Detail Indication:Acute pharyngitis Start:01-Sep-2014 Instruction Type:Patient Education Patient Instructions Indication:Acute pharyngitis Start:01-Sep-2014 Instruction Type:Provider Instructions for Treatment Patient Instructions Indication:Allergic Rhinitis Start:07-Jan-2014 Instruction Type:Provider Instructions for Treatment Patient Instructions Indication:Hyperglyceridemia Start:07-Jan-2014 Instruction Type:Provider Instructions for Treatment obesity counseling Indication:BMI 34.0-34.9,adult Start:24-Jun-2013 Instruction Type:Provider Instructions for Treatment Patient Instructions Indication:Need for prophylactic vaccination and inoculation against influenza Start:24-Jun-2013 Instruction Type:Provider Instructions for Treatment Patient Instructions Indication:Hypertension Start:26-Oct-2012 Instruction Type:Provider Instructions for Treatment patient instrucitons: stop h yzaar, start new rate limiting step and bp control rx at pharm Indication:Atrial fibrillation Start:07-May-2012 Instruction Type:Provider Instructions for Treatment [facility]; [facility] Work Phone: Instructions* Name Dates Details Patient Instructions Indication:Nonsmoker Start:25-Aug-2021 Instruction Type:Provider Instructions for Treatment How to Access Health Informa tion Online using Patient Portal and [employer] Apps Indication:Nonsmoker Start:25-Aug-2021 Instruction Type:Patient Education Patient Instructions Indication:BMI 37.0-37.9, adult Start:26-May-2021 Instruction Type:Provider Instructions for Treatment How to Access Health Informa tion Online using Patient Portal and [employer] Indication:BMI 37.0-37.9, adult Start:26-May-2021 Instruction Type:Patient Education Patient Instructions Indication:BMI 37.0-37.9, adult Start:11-May-2021 Instruction Type:Provider Instructions for Treatment How to Access Health Informa tion Online using Patient Portal and [employer] Indication:BMI 37.0-37.9, adult Start:11-May-2021 Instruction Type:Patient Education How to Access Health Informa tion Online using Patient Portal and [employer] Indication:Nonsmoker Start:02-Mar-2021 Instruction Type:Patient Education Patient Instructions Indication:Nonsmoker Start:02-Mar-2021 Instruction Type:Provider Instructions for Treatment Patient Instructions Indication:Nonsmoker Start:23-Dec-2020 Instruction Type:Provider Instructions for Treatment How to Access Health Informa tion Online using Patient Portal and [employer] Indication:Nonsmoker Start:23-Dec-2020 Instruction Type:Patient Education Patient Instructions Indication:Nonsmoker Start:13-Nov-2020 Instruction Type:Provider Instructions for Treatment How to Access Health Informa tion Online using Patient Portal and [employer] Indication:Nonsmoker Start:13-Nov-2020 Instruction Type:Patient Education How to access health informa tion online Indication:Nonsmoker Start:14-Aug-2020 Instruction Type:Patient Education How to access health informa tion online - Detail Indication:Nonsmoker Start:14-Aug-2020 Instruction Type:Patient Education Patient Instructions Indication:History of atrial fibrillation Start:14-Aug-2020 Instruction Type:Provider Instructions for Treatment How to access health informa tion online Indication:BMI 37.0-37.9, adult Start:02-Apr-2020 Instruction Type:Patient Education How to access health informa tion online - Detail Indication:BMI 37.0-37.9, adult Start:02-Apr-2020 Instruction Type:Patient Education Patient Instructions Indication:BMI 37.0-37.9, adult Start:02-Apr-2020 Instruction Type:Provider Instructions for Treatment How to access health informa tion online Indication:Nonsmoker Start:12-Feb-2020 Instruction Type:Patient Education How to access health informa tion online - Detail Indication:Nonsmoker Start:12-Feb-2020 Instruction Type:Patient Education Patient Instructions Indication:Nonsmoker Start:12-Feb-2020 Instruction Type:Provider Instructions for Treatment How to access health informa tion online Indication:BMI 37.0-37.9, adult Start:05-Nov-2019 Instruction Type:Patient Education How to access health informa tion online - Detail Indication:BMI 37.0-37.9, adult Start:05-Nov-2019 Instruction Type:Patient Education Patient Instructions Indication:BMI 37.0-37.9, adult Start:05-Nov-2019 Instruction Type:Provider Instructions for Treatment How to access health informa tion online Indication:Nonsmoker Start:13-Aug-2018 Instruction Type:Patient Education How to access health informa tion online - Detail Indication:Nonsmoker Start:13-Aug-2018 Instruction Type:Patient Education Patient Instructions Indication:Nonsmoker Start:13-Aug-2018 Instruction Type:Provider Instructions for Treatment How to access health informa tion online Indication:Nonsmoker Start:06-Aug-2018 Instruction Type:Patient Education How to access health informa tion online - Detail Indication:Nonsmoker Start:06-Aug-2018 Instruction Type:Patient Education Patient Instructions Indication:Nonsmoker Start:06-Aug-2018 Instruction Type:Provider Instructions for Treatment How to access health informa tion online Indication:Sinusitis, acute Start:13-Apr-2018 Instruction Type:Patient Education How to access health informa tion online - Detail Indication:Sinusitis, acute Start:13-Apr-2018 Instruction Type:Patient Education Patient Instructions Indication:Sinusitis, acute Start:13-Apr-2018 Instruction Type:Provider Instructions for Treatment How to access health informa tion online Indication:BMI 35.0-35.9,adult Start:07-Dec-2017 Instruction Type:Patient Education How to access health informa tion online - Detail Indication:BMI 35.0-35.9,adult Start:07-Dec-2017 Instruction Type:Patient Education Patient Instructions Indication:Sore throat Start:07-Dec-2017 Instruction Type:Provider Instructions for Treatment DISCONTINUED - LIPID PANEL ( [id number]) Indication:Mixed Hyperlipidemia Start:25-Jul-2017 Instruction Type:Patient Education DISCONTINUED - HEPATIC FUNCT ION PANEL ([id number]) Indication:Mixed Hyperlipidemia Start:25-Jul-2017 Instruction Type:Patient Education How to access health informa tion online Indication:Hypertension Start:25-Jul-2017 Instruction Type:Patient Education How to access health informa tion online - Detail Indication:Hypertension Start:25-Jul-2017 Instruction Type:Patient Education Patient Instructions Indication:Hypertension Start:25-Jul-2017 Instruction Type:Provider Instructions for Treatment How to access health informa tion online Indication:BMI 34.0-34.9,adult Start:13-Sep-2016 Instruction Type:Patient Education How to access health informa tion online - Detail Indication:BMI 34.0-34.9,adult Start:13-Sep-2016 Instruction Type:Patient Education Patient Instructions Indication:BMI 34.0-34.9,adult Start:13-Sep-2016 Instruction Type:Provider Instructions for Treatment Patient Instructions Indication:Squamous cell carcinoma, face Start:27-Jun-2016 Instruction Type:Provider Instructions for Treatment Patient Instructions Indication:Flank pain Start:26-Oct-2015 Instruction Type:Provider Instructions for Treatment Patient Instructions Indication:Acute pharyngitis Start:01-Sep-2014 Instruction Type:Provider Instructions for Treatment How to access health informa tion online Indication:Acute pharyngitis Start:01-Sep-2014 Instruction Type:Patient Education How to access health informa tion online - Detail Indication:Acute pharyngitis Start:01-Sep-2014 Instruction Type:Patient Education Patient Instructions Indication:Acute pharyngitis Start:01-Sep-2014 Instruction Type:Provider Instructions for Treatment Patient Instructions Indication:Allergic Rhinitis Start:07-Jan-2014 Instruction Type:Provider Instructions for Treatment Patient Instructions Indication:Hyperglyceridemia Start:07-Jan-2014 Instruction Type:Provider Instructions for Treatment obesity counseling Indication:BMI 34.0-34.9,adult Start:24-Jun-2013 Instruction Type:Provider Instructions for Treatment Patient Instructions Indication:Need for prophylactic vaccination and inoculation against influenza Start:24-Jun-2013 Instruction Type:Provider Instructions for Treatment Patient Instructions Indication:Hypertension Start:26-Oct-2012 Instruction Type:Provider Instructions for Treatment patient instrucitons: stop h yzaar, start new rate limiting step and bp control rx at pharm Indication:Atrial fibrillation Start:07-May-2012 Instruction Type:Provider Instructions for Treatment [facility]; [facility] Work Phone: Instructions* Name Dates Details Patient Instructions Indication:Nonsmoker Start:25-Aug-2021 Instruction Type:Provider Instructions for Treatment How to Access Health Informa tion Online using Patient Portal and [employer] Apps Indication:Nonsmoker Start:25-Aug-2021 Instruction Type:Patient Education Patient Instructions Indication:BMI 37.0-37.9, adult Start:26-May-2021 Instruction Type:Provider Instructions for Treatment How to Access Health Informa tion Online using Patient Portal and [employer] Apps Indication:BMI 37.0-37.9, adult Start:26-May-2021 Instruction Type:Patient Education Patient Instructions Indication:BMI 37.0-37.9, adult Start:11-May-2021 Instruction Type:Provider Instructions for Treatment How to Access Health Informa tion Online using Patient Portal and [employer] Apps Indication:BMI 37.0-37.9, adult Start:11-May-2021 Instruction Type:Patient Education How to Access Health Informa tion Online using Patient Portal and [employer] Apps Indication:Nonsmoker Start:02-Mar-2021 Instruction Type:Patient Education Patient Instructions Indication:Nonsmoker Start:02-Mar-2021 Instruction Type:Provider Instructions for Treatment Patient Instructions Indication:Nonsmoker Start:23-Dec-2020 Instruction Type:Provider Instructions for Treatment How to Access Health Informa tion Online using Patient Portal and [employer] Apps Indication:Nonsmoker Start:23-Dec-2020 Instruction Type:Patient Education Patient Instructions Indication:Nonsmoker Start:13-Nov-2020 Instruction Type:Provider Instructions for Treatment How to Access Health Informa tion Online using Patient Portal and [employer] Apps Indication:Nonsmoker Start:13-Nov-2020 Instruction Type:Patient Education How to access health informa tion online Indication:Nonsmoker Start:14-Aug-2020 Instruction Type:Patient Education How to access health informa tion online - Detail Indication:Nonsmoker Start:14-Aug-2020 Instruction Type:Patient Education Patient Instructions Indication:History of atrial fibrillation Start:14-Aug-2020 Instruction Type:Provider Instructions for Treatment How to access health informa tion online Indication:BMI 37.0-37.9, adult Start:02-Apr-2020 Instruction Type:Patient Education How to access health informa tion online - Detail Indication:BMI 37.0-37.9, adult Start:02-Apr-2020 Instruction Type:Patient Education Patient Instructions Indication:BMI 37.0-37.9, adult Start:02-Apr-2020 Instruction Type:Provider Instructions for Treatment How to access health informa tion online Indication:Nonsmoker Start:12-Feb-2020 Instruction Type:Patient Education How to access health informa tion online - Detail Indication:Nonsmoker Start:12-Feb-2020 Instruction Type:Patient Education Patient Instructions Indication:Nonsmoker Start:12-Feb-2020 Instruction Type:Provider Instructions for Treatment How to access health informa tion online Indication:BMI 37.0-37.9, adult Start:05-Nov-2019 Instruction Type:Patient Education How to access health informa tion online - Detail Indication:BMI 37.0-37.9, adult Start:05-Nov-2019 Instruction Type:Patient Education Patient Instructions Indication:BMI 37.0-37.9, adult Start:05-Nov-2019 Instruction Type:Provider Instructions for Treatment How to access health informa tion online Indication:Nonsmoker Start:13-Aug-2018 Instruction Type:Patient Education How to access health informa tion online - Detail Indication:Nonsmoker Start:13-Aug-2018 Instruction Type:Patient Education Patient Instructions Indication:Nonsmoker Start:13-Aug-2018 Instruction Type:Provider Instructions for Treatment How to access health informa tion online Indication:Nonsmoker Start:06-Aug-2018 Instruction Type:Patient Education How to access health informa tion online - Detail Indication:Nonsmoker Start:06-Aug-2018 Instruction Type:Patient Education Patient Instructions Indication:Nonsmoker Start:06-Aug-2018 Instruction Type:Provider Instructions for Treatment How to access health informa tion online Indication:Sinusitis, acute Start:13-Apr-2018 Instruction Type:Patient Education How to access health informa tion online - Detail Indication:Sinusitis, acute Start:13-Apr-2018 Instruction Type:Patient Education Patient Instructions Indication:Sinusitis, acute Start:13-Apr-2018 Instruction Type:Provider Instructions for Treatment How to access health informa tion online Indication:BMI 35.0-35.9,adult Start:07-Dec-2017 Instruction Type:Patient Education How to access health informa tion online - Detail Indication:BMI 35.0-35.9,adult Start:07-Dec-2017 Instruction Type:Patient Education Patient Instructions Indication:Sore throat Start:07-Dec-2017 Instruction Type:Provider Instructions for Treatment DISCONTINUED - LIPID PANEL ( [id number]) Indication:Mixed Hyperlipidemia Start:25-Jul-2017 Instruction Type:Patient Education DISCONTINUED - HEPATIC FUNCT ION PANEL ([id number]) Indication:Mixed Hyperlipidemia Start:25-Jul-2017 Instruction Type:Patient Education How to access health informa tion online Indication:Hypertension Start:25-Jul-2017 Instruction Type:Patient Education How to access health informa tion online - Detail Indication:Hypertension Start:25-Jul-2017 Instruction Type:Patient Education Patient Instructions Indication:Hypertension Start:25-Jul-2017 Instruction Type:Provider Instructions for Treatment How to access health informa tion online Indication:BMI 34.0-34.9,adult Start:13-Sep-2016 Instruction Type:Patient Education How to access health informa tion online - Detail Indication:BMI 34.0-34.9,adult Start:13-Sep-2016 Instruction Type:Patient Education Patient Instructions Indication:BMI 34.0-34.9,adult Start:13-Sep-2016 Instruction Type:Provider Instructions for Treatment Patient Instructions Indication:Squamous cell carcinoma, face Start:27-Jun-2016 Instruction Type:Provider Instructions for Treatment Patient Instructions Indication:Flank pain Start:26-Oct-2015 Instruction Type:Provider Instructions for Treatment Patient Instructions Indication:Acute pharyngitis Start:01-Sep-2014 Instruction Type:Provider Instructions for Treatment How to access health informa tion online Indication:Acute pharyngitis Start:01-Sep-2014 Instruction Type:Patient Education How to access health informa tion online - Detail Indication:Acute pharyngitis Start:01-Sep-2014 Instruction Type:Patient Education Patient Instructions Indication:Acute pharyngitis Start:01-Sep-2014 Instruction Type:Provider Instructions for Treatment Patient Instructions Indication:Allergic Rhinitis Start:07-Jan-2014 Instruction Type:Provider Instructions for Treatment Patient Instructions Indication:Hyperglyceridemia Start:07-Jan-2014 Instruction Type:Provider Instructions for Treatment obesity counseling Indication:BMI 34.0-34.9,adult Start:24-Jun-2013 Instruction Type:Provider Instructions for Treatment Patient Instructions Indication:Need for prophylactic vaccination and inoculation against influenza Start:24-Jun-2013 Instruction Type:Provider Instructions for Treatment Patient Instructions Indication:Hypertension Start:26-Oct-2012 Instruction Type:Provider Instructions for Treatment patient instrucitons: stop h yzaar, start new rate limiting step and bp control rx at pharm Indication:Atrial fibrillation Start:07-May-2012 Instruction Type:Provider Instructions for Treatment [facility]; [facility] Work Phone: Instructions* Name Dates Details Patient Instructions Indication:Nonsmoker Start:25-Aug-2021 Instruction Type:Provider Instructions for Treatment How to Access Health Informa tion Online using Patient Portal and [email or web address] Apps Indication:Nonsmoker Start:25-Aug-2021 Instruction Type:Patient Education Patient Instructions Indication:BMI 37.0-37.9, adult Start:26-May-2021 Instruction Type:Provider Instructions for Treatment How to Access Health Informa tion Online using Patient Portal and [employer] Apps Indication:BMI 37.0-37.9, adult Start:26-May-2021 Instruction Type:Patient Education Patient Instructions Indication:BMI 37.0-37.9, adult Start:11-May-2021 Instruction Type:Provider Instructions for Treatment How to Access Health Informa tion Online using Patient Portal and [employer] Apps Indication:BMI 37.0-37.9, adult Start:11-May-2021 Instruction Type:Patient Education How to Access Health Informa tion Online using Patient Portal and [employer] Apps Indication:Nonsmoker Start:02-Mar-2021 Instruction Type:Patient Education Patient Instructions Indication:Nonsmoker Start:02-Mar-2021 Instruction Type:Provider Instructions for Treatment Patient Instructions Indication:Nonsmoker Start:23-Dec-2020 Instruction Type:Provider Instructions for Treatment How to Access Health Informa tion Online using Patient Portal and [employer] Apps Indication:Nonsmoker Start:23-Dec-2020 Instruction Type:Patient Education Patient Instructions Indication:Nonsmoker Start:13-Nov-2020 Instruction Type:Provider Instructions for Treatment How to Access Health Informa tion Online using Patient Portal and [employer] Apps Indication:Nonsmoker Start:13-Nov-2020 Instruction Type:Patient Education How to access health informa tion online Indication:Nonsmoker Start:14-Aug-2020 Instruction Type:Patient Education How to access health informa tion online - Detail Indication:Nonsmoker Start:14-Aug-2020 Instruction Type:Patient Education Patient Instructions Indication:History of atrial fibrillation Start:14-Aug-2020 Instruction Type:Provider Instructions for Treatment How to access health informa tion online Indication:BMI 37.0-37.9, adult Start:02-Apr-2020 Instruction Type:Patient Education How to access health informa tion online - Detail Indication:BMI 37.0-37.9, adult Start:02-Apr-2020 Instruction Type:Patient Education Patient Instructions Indication:BMI 37.0-37.9, adult Start:02-Apr-2020 Instruction Type:Provider Instructions for Treatment How to access health informa tion online Indication:Nonsmoker Start:12-Feb-2020 Instruction Type:Patient Education How to access health informa tion online - Detail Indication:Nonsmoker Start:12-Feb-2020 Instruction Type:Patient Education Patient Instructions Indication:Nonsmoker Start:12-Feb-2020 Instruction Type:Provider Instructions for Treatment How to access health informa tion online Indication:BMI 37.0-37.9, adult Start:05-Nov-2019 Instruction Type:Patient Education How to access health informa tion online - Detail Indication:BMI 37.0-37.9, adult Start:05-Nov-2019 Instruction Type:Patient Education Patient Instructions Indication:BMI 37.0-37.9, adult Start:05-Nov-2019 Instruction Type:Provider Instructions for Treatment How to access health informa tion online Indication:Nonsmoker Start:13-Aug-2018 Instruction Type:Patient Education How to access health informa tion online - Detail Indication:Nonsmoker Start:13-Aug-2018 Instruction Type:Patient Education Patient Instructions Indication:Nonsmoker Start:13-Aug-2018 Instruction Type:Provider Instructions for Treatment How to access health informa tion online Indication:Nonsmoker Start:06-Aug-2018 Instruction Type:Patient Education How to access health informa tion online - Detail Indication:Nonsmoker Start:06-Aug-2018 Instruction Type:Patient Education Patient Instructions Indication:Nonsmoker Start:06-Aug-2018 Instruction Type:Provider Instructions for Treatment How to access health informa tion online Indication:Sinusitis, acute Start:13-Apr-2018 Instruction Type:Patient Education How to access health informa tion online - Detail Indication:Sinusitis, acute Start:13-Apr-2018 Instruction Type:Patient Education Patient Instructions Indication:Sinusitis, acute Start:13-Apr-2018 Instruction Type:Provider Instructions for Treatment How to access health informa tion online Indication:BMI 35.0-35.9,adult Start:07-Dec-2017 Instruction Type:Patient Education How to access health informa tion online - Detail Indication:BMI 35.0-35.9,adult Start:07-Dec-2017 Instruction Type:Patient Education Patient Instructions Indication:Sore throat Start:07-Dec-2017 Instruction Type:Provider Instructions for Treatment DISCONTINUED - LIPID PANEL ( [id number]) Indication:Mixed Hyperlipidemia Start:25-Jul-2017 Instruction Type:Patient Education DISCONTINUED - HEPATIC FUNCT ION PANEL ([id number]) Indication:Mixed Hyperlipidemia Start:25-Jul-2017 Instruction Type:Patient Education How to access health informa [employer] online Indication:Hypertension Start:25-Jul-2017 Instruction Type:Patient Education How to access health informa tion online - Detail Indication:Hypertension Start:25-Jul-2017 Instruction Type:Patient Education Patient Instructions Indication:Hypertension Start:25-Jul-2017 Instruction Type:Provider Instructions for Treatment How to access health [employer] online Indication:BMI 34.0-34.9,adult Start:13-Sep-2016 Instruction Type:Patient Education How to access health informa tion online - Detail Indication:BMI 34.0-34.9,adult Start:13-Sep-2016 Instruction Type:Patient Education Patient Instructions Indication:BMI 34.0-34.9,adult Start:13-Sep-2016 Instruction Type:Provider Instructions for Treatment Patient Instructions Indication:Squamous cell carcinoma, face Start:27-Jun-2016 Instruction Type:Provider Instructions for Treatment Patient Instructions Indication:Flank pain Start:26-Oct-2015 Instruction Type:Provider Instructions for Treatment Patient Instructions Indication:Acute pharyngitis Start:01-Sep-2014 Instruction Type:Provider Instructions for Treatment How to access health informa tion online Indication:Acute pharyngitis Start:01-Sep-2014 Instruction Type:Patient Education How to access health informa tion online - Detail Indication:Acute pharyngitis Start:01-Sep-2014 Instruction Type:Patient Education Patient Instructions Indication:Acute pharyngitis Start:01-Sep-2014 Instruction Type:Provider Instructions for Treatment Patient Instructions Indication:Allergic Rhinitis Start:07-Jan-2014 Instruction Type:Provider Instructions for Treatment Patient Instructions Indication:Hyperglyceridemia Start:07-Jan-2014 Instruction Type:Provider Instructions for Treatment obesity counseling Indication:BMI 34.0-34.9,adult Start:24-Jun-2013 Instruction Type:Provider Instructions for Treatment Patient Instructions Indication:Need for prophylactic vaccination and inoculation against influenza Start:24-Jun-2013 Instruction Type:Provider Instructions for Treatment Patient Instructions Indication:Hypertension Start:26-Oct-2012 Instruction Type:Provider Instructions for Treatment patient instrucitons: stop h yzaar, start new rate limiting step and bp control rx at pharm Indication:Atrial fibrillation Start:07-May-2012 Instruction Type:Provider Instructions for Treatment [facility]; [facility] Work Phone: Instructions* Name Dates Details Patient Instructions Indication:BMI 37.0-37.9, adult Start:31-Jan-2022 Instruction Type:Provider Instructions for Treatment How to Access Health Informa tion Online using Patient Portal and [employer] Apps Indication:BMI 37.0-37.9, adult Start:31-Jan-2022 Instruction Type:Patient Education Patient Instructions Indication:Nonsmoker Start:25-Aug-2021 Instruction Type:Provider Instructions for Treatment How to Access Health Informa tion Online using Patient Portal and [employer] Apps Indication:Nonsmoker Start:25-Aug-2021 Instruction Type:Patient Education Patient Instructions Indication:BMI 37.0-37.9, adult Start:26-May-2021 Instruction Type:Provider Instructions for Treatment How to Access Health Informa tion Online using Patient Portal and [employer] Apps Indication:BMI 37.0-37.9, adult Start:26-May-2021 Instruction Type:Patient Education Patient Instructions Indication:BMI 37.0-37.9, adult Start:11-May-2021 Instruction Type:Provider Instructions for Treatment How to Access Health Informa tion Online using Patient Portal and [employer] Indication:BMI 37.0-37.9, adult Start:11-May-2021 Instruction Type:Patient Education How to Access Health Informa tion Online using Patient Portal and [employer] Apps Indication:Nonsmoker Start:02-Mar-2021 Instruction Type:Patient Education Patient Instructions Indication:Nonsmoker Start:02-Mar-2021 Instruction Type:Provider Instructions for Treatment Patient Instructions Indication:Nonsmoker Start:23-Dec-2020 Instruction Type:Provider Instructions for Treatment How to Access Health Informa tion Online using Patient Portal and [employer] Apps Indication:Nonsmoker Start:23-Dec-2020 Instruction Type:Patient Education Patient Instructions Indication:Nonsmoker Start:13-Nov-2020 Instruction Type:Provider Instructions for Treatment How to Access Health Informa tion Online using Patient Portal and [employer] Apps Indication:Nonsmoker Start:13-Nov-2020 Instruction Type:Patient Education How to access health informa tion online Indication:Nonsmoker Start:14-Aug-2020 Instruction Type:Patient Education How to access health informa tion online - Detail Indication:Nonsmoker Start:14-Aug-2020 Instruction Type:Patient Education Patient Instructions Indication:History of atrial fibrillation Start:14-Aug-2020 Instruction Type:Provider Instructions for Treatment How to access health informa tion online Indication:BMI 37.0-37.9, adult Start:02-Apr-2020 Instruction Type:Patient Education How to access health informa tion online - Detail Indication:BMI 37.0-37.9, adult Start:02-Apr-2020 Instruction Type:Patient Education Patient Instructions Indication:BMI 37.0-37.9, adult Start:02-Apr-2020 Instruction Type:Provider Instructions for Treatment How to access health informa tion online Indication:Nonsmoker Start:12-Feb-2020 Instruction Type:Patient Education How to access health informa tion online - Detail Indication:Nonsmoker Start:12-Feb-2020 Instruction Type:Patient Education Patient Instructions Indication:Nonsmoker Start:12-Feb-2020 Instruction Type:Provider Instructions for Treatment How to access health informa tion online Indication:BMI 37.0-37.9, adult Start:05-Nov-2019 Instruction Type:Patient Education How to access health informa tion online - Detail Indication:BMI 37.0-37.9, adult Start:05-Nov-2019 Instruction Type:Patient Education Patient Instructions Indication:BMI 37.0-37.9, adult Start:05-Nov-2019 Instruction Type:Provider Instructions for Treatment How to access health informa tion online Indication:Nonsmoker Start:13-Aug-2018 Instruction Type:Patient Education How to access health informa tion online - Detail Indication:Nonsmoker Start:13-Aug-2018 Instruction Type:Patient Education Patient Instructions Indication:Nonsmoker Start:13-Aug-2018 Instruction Type:Provider Instructions for Treatment How to access health informa tion online Indication:Nonsmoker Start:06-Aug-2018 Instruction Type:Patient Education How to access health informa tion online - Detail Indication:Nonsmoker Start:06-Aug-2018 Instruction Type:Patient Education Patient Instructions Indication:Nonsmoker Start:06-Aug-2018 Instruction Type:Provider Instructions for Treatment How to access health informa tion online Indication:Sinusitis, acute Start:13-Apr-2018 Instruction Type:Patient Education How to access health informa tion online - Detail Indication:Sinusitis, acute Start:13-Apr-2018 Instruction Type:Patient Education Patient Instructions Indication:Sinusitis, acute Start:13-Apr-2018 Instruction Type:Provider Instructions for Treatment How to access health informa tion online Indication:BMI 35.0-35.9,adult Start:07-Dec-2017 Instruction Type:Patient Education How to access health informa tion online - Detail Indication:BMI 35.0-35.9,adult Start:07-Dec-2017 Instruction Type:Patient Education Patient Instructions Indication:Sore throat Start:07-Dec-2017 Instruction Type:Provider Instructions for Treatment DISCONTINUED - LIPID PANEL ( [id number]) Indication:Mixed Hyperlipidemia Start:25-Jul-2017 Instruction Type:Patient Education DISCONTINUED - HEPATIC FUNCT ION PANEL ([id number]) Indication:Mixed Hyperlipidemia Start:25-Jul-2017 Instruction Type:Patient Education How to access health informa tion online Indication:Hypertension Start:25-Jul-2017 Instruction Type:Patient Education How to access health informa tion online - Detail Indication:Hypertension Start:25-Jul-2017 Instruction Type:Patient Education Patient Instructions Indication:Hypertension Start:25-Jul-2017 Instruction Type:Provider Instructions for Treatment How to access health informa tion online Indication:BMI 34.0-34.9,adult Start:13-Sep-2016 Instruction Type:Patient Education How to access health informa tion online - Detail Indication:BMI 34.0-34.9,adult Start:13-Sep-2016 Instruction Type:Patient Education Patient Instructions Indication:BMI 34.0-34.9,adult Start:13-Sep-2016 Instruction Type:Provider Instructions for Treatment Patient Instructions Indication:Squamous cell carcinoma, face Start:27-Jun-2016 Instruction Type:Provider Instructions for Treatment Patient Instructions Indication:Flank pain Start:26-Oct-2015 Instruction Type:Provider Instructions for Treatment Patient Instructions Indication:Acute pharyngitis Start:01-Sep-2014 Instruction Type:Provider Instructions for Treatment How to access health informa tion online Indication:Acute pharyngitis Start:01-Sep-2014 Instruction Type:Patient Education How to access health informa tion online - Detail Indication:Acute pharyngitis Start:01-Sep-2014 Instruction Type:Patient Education Patient Instructions Indication:Acute pharyngitis Start:01-Sep-2014 Instruction Type:Provider Instructions for Treatment Patient Instructions Indication:Allergic Rhinitis Start:07-Jan-2014 Instruction Type:Provider Instructions for Treatment Patient Instructions Indication:Hyperglyceridemia Start:07-Jan-2014 Instruction Type:Provider Instructions for Treatment obesity counseling Indication:BMI 34.0-34.9,adult Start:24-Jun-2013 Instruction Type:Provider Instructions for Treatment Patient Instructions Indication:Need for prophylactic vaccination and inoculation against influenza Start:24-Jun-2013 Instruction Type:Provider Instructions for Treatment Patient Instructions Indication:Hypertension Start:26-Oct-2012 Instruction Type:Provider Instructions for Treatment patient instrucitons: stop h yzaar, start new rate limiting step and bp control rx at pharm Indication:Atrial fibrillation Start:07-May-2012 Instruction Type:Provider Instructions for Treatment [facility]; [facility] Work Phone: Instructions* Name Dates Details Patient Instructions Indication:BMI 37.0-37.9, adult Start:31-Jan-2022 Instruction Type:Provider Instructions for Treatment How to Access Health Informa tion Online using Patient Portal and [employer] Indication:BMI 37.0-37.9, adult Start:31-Jan-2022 Instruction Type:Patient Education Patient Instructions Indication:Nonsmoker Start:25-Aug-2021 Instruction Type:Provider Instructions for Treatment How to Access Health Informa tion Online using Patient Portal and [email or web address] Apps Indication:Nonsmoker Start:25-Aug-2021 Instruction Type:Patient Education Patient Instructions Indication:BMI 37.0-37.9, adult Start:26-May-2021 Instruction Type:Provider Instructions for Treatment How to Access Health Informa tion Online using Patient Portal and [employer] Apps Indication:BMI 37.0-37.9, adult Start:26-May-2021 Instruction Type:Patient Education Patient Instructions Indication:BMI 37.0-37.9, adult Start:11-May-2021 Instruction Type:Provider Instructions for Treatment How to Access Health Informa tion Online using Patient Portal and [employer] Apps Indication:BMI 37.0-37.9, adult Start:11-May-2021 Instruction Type:Patient Education How to Access Health Informa tion Online using Patient Portal and [employer] Apps Indication:Nonsmoker Start:02-Mar-2021 Instruction Type:Patient Education Patient Instructions Indication:Nonsmoker Start:02-Mar-2021 Instruction Type:Provider Instructions for Treatment Patient Instructions Indication:Nonsmoker Start:23-Dec-2020 Instruction Type:Provider Instructions for Treatment How to Access Health Informa tion Online using Patient Portal and [employer] Apps Indication:Nonsmoker Start:23-Dec-2020 Instruction Type:Patient Education Patient Instructions Indication:Nonsmoker Start:13-Nov-2020 Instruction Type:Provider Instructions for Treatment How to Access Health Informa tion Online using Patient Portal and [employer] Apps Indication:Nonsmoker Start:13-Nov-2020 Instruction Type:Patient Education How to access health informa tion online Indication:Nonsmoker Start:14-Aug-2020 Instruction Type:Patient Education How to access health informa tion online - Detail Indication:Nonsmoker Start:14-Aug-2020 Instruction Type:Patient Education Patient Instructions Indication:History of atrial fibrillation Start:14-Aug-2020 Instruction Type:Provider Instructions for Treatment How to access health informa tion online Indication:BMI 37.0-37.9, adult Start:02-Apr-2020 Instruction Type:Patient Education How to access health informa tion online - Detail Indication:BMI 37.0-37.9, adult Start:02-Apr-2020 Instruction Type:Patient Education Patient Instructions Indication:BMI 37.0-37.9, adult Start:02-Apr-2020 Instruction Type:Provider Instructions for Treatment How to access health informa tion online Indication:Nonsmoker Start:12-Feb-2020 Instruction Type:Patient Education How to access health informa tion online - Detail Indication:Nonsmoker Start:12-Feb-2020 Instruction Type:Patient Education Patient Instructions Indication:Nonsmoker Start:12-Feb-2020 Instruction Type:Provider Instructions for Treatment How to access health informa tion online Indication:BMI 37.0-37.9, adult Start:05-Nov-2019 Instruction Type:Patient Education How to access health informa tion online - Detail Indication:BMI 37.0-37.9, adult Start:05-Nov-2019 Instruction Type:Patient Education Patient Instructions Indication:BMI 37.0-37.9, adult Start:05-Nov-2019 Instruction Type:Provider Instructions for Treatment How to access health informa tion online Indication:Nonsmoker Start:13-Aug-2018 Instruction Type:Patient Education How to access health informa tion online - Detail Indication:Nonsmoker Start:13-Aug-2018 Instruction Type:Patient Education Patient Instructions Indication:Nonsmoker Start:13-Aug-2018 Instruction Type:Provider Instructions for Treatment How to access health informa tion online Indication:Nonsmoker Start:06-Aug-2018 Instruction Type:Patient Education How to access health informa tion online - Detail Indication:Nonsmoker Start:06-Aug-2018 Instruction Type:Patient Education Patient Instructions Indication:Nonsmoker Start:06-Aug-2018 Instruction Type:Provider Instructions for Treatment How to access health informa tion online Indication:Sinusitis, acute Start:13-Apr-2018 Instruction Type:Patient Education How to access health informa tion online - Detail Indication:Sinusitis, acute Start:13-Apr-2018 Instruction Type:Patient Education Patient Instructions Indication:Sinusitis, acute Start:13-Apr-2018 Instruction Type:Provider Instructions for Treatment How to access health informa tion online Indication:BMI 35.0-35.9,adult Start:07-Dec-2017 Instruction Type:Patient Education How to access health informa tion online - Detail Indication:BMI 35.0-35.9,adult Start:07-Dec-2017 Instruction Type:Patient Education Patient Instructions Indication:Sore throat Start:07-Dec-2017 Instruction Type:Provider Instructions for Treatment DISCONTINUED - LIPID PANEL ( [id number]) Indication:Mixed Hyperlipidemia Start:25-Jul-2017 Instruction Type:Patient Education DISCONTINUED - HEPATIC FUNCT ION PANEL ([id number]) Indication:Mixed Hyperlipidemia Start:25-Jul-2017 Instruction Type:Patient Education How to access health informa tion online Indication:Hypertension Start:25-Jul-2017 Instruction Type:Patient Education How to access health informa tion online - Detail Indication:Hypertension Start:25-Jul-2017 Instruction Type:Patient Education Patient Instructions Indication:Hypertension Start:25-Jul-2017 Instruction Type:Provider Instructions for Treatment How to access health informa tion online Indication:BMI 34.0-34.9,adult Start:13-Sep-2016 Instruction Type:Patient Education How to access health informa tion online - Detail Indication:BMI 34.0-34.9,adult Start:13-Sep-2016 Instruction Type:Patient Education Patient Instructions Indication:BMI 34.0-34.9,adult Start:13-Sep-2016 Instruction Type:Provider Instructions for Treatment Patient Instructions Indication:Squamous cell carcinoma, face Start:27-Jun-2016 Instruction Type:Provider Instructions for Treatment Patient Instructions Indication:Flank pain Start:26-Oct-2015 Instruction Type:Provider Instructions for Treatment Patient Instructions Indication:Acute pharyngitis Start:01-Sep-2014 Instruction Type:Provider Instructions for Treatment How to access health informa tion online Indication:Acute pharyngitis Start:01-Sep-2014 Instruction Type:Patient Education How to access health informa tion online - Detail Indication:Acute pharyngitis Start:01-Sep-2014 Instruction Type:Patient Education Patient Instructions Indication:Acute pharyngitis Start:01-Sep-2014 Instruction Type:Provider Instructions for Treatment Patient Instructions Indication:Allergic Rhinitis Start:07-Jan-2014 Instruction Type:Provider Instructions for Treatment Patient Instructions Indication:Hyperglyceridemia Start:07-Jan-2014 Instruction Type:Provider Instructions for Treatment obesity counseling Indication:BMI 34.0-34.9,adult Start:24-Jun-2013 Instruction Type:Provider Instructions for Treatment Patient Instructions Indication:Need for prophylactic vaccination and inoculation against influenza Start:24-Jun-2013 Instruction Type:Provider Instructions for Treatment Patient Instructions Indication:Hypertension Start:26-Oct-2012 Instruction Type:Provider Instructions for Treatment patient instrucitons: stop h yzaar, start new rate limiting step and bp control rx at pharm Indication:Atrial fibrillation Start:07-May-2012 Instruction Type:Provider Instructions for Treatment [facility]; [facility] Work Phone: Instructions* Name Dates Details Patient Instructions Indication:BMI 37.0-37.9, adult Start:31-Jan-2022 Instruction Type:Provider Instructions for Treatment How to Access Health Informa tion Online using Patient Portal and [employer] Apps Indication:BMI 37.0-37.9, adult Start:31-Jan-2022 Instruction Type:Patient Education Patient Instructions Indication:Nonsmoker Start:25-Aug-2021 Instruction Type:Provider Instructions for Treatment How to Access Health Informa tion Online using Patient Portal and [employer] Apps Indication:Nonsmoker Start:25-Aug-2021 Instruction Type:Patient Education Patient Instructions Indication:BMI 37.0-37.9, adult Start:26-May-2021 Instruction Type:Provider Instructions for Treatment How to Access Health Informa tion Online using Patient Portal and [employer] Apps Indication:BMI 37.0-37.9, adult Start:26-May-2021 Instruction Type:Patient Education Patient Instructions Indication:BMI 37.0-37.9, adult Start:11-May-2021 Instruction Type:Provider Instructions for Treatment How to Access Health Informa tion Online using Patient Portal and [employer] Apps Indication:BMI 37.0-37.9, adult Start:11-May-2021 Instruction Type:Patient Education How to Access Health Informa tion Online using Patient Portal and [employer] Apps Indication:Nonsmoker Start:02-Mar-2021 Instruction Type:Patient Education Patient Instructions Indication:Nonsmoker Start:02-Mar-2021 Instruction Type:Provider Instructions for Treatment Patient Instructions Indication:Nonsmoker Start:23-Dec-2020 Instruction Type:Provider Instructions for Treatment How to Access Health Informa tion Online using Patient Portal and [employer] Apps Indication:Nonsmoker Start:23-Dec-2020 Instruction Type:Patient Education Patient Instructions Indication:Nonsmoker Start:13-Nov-2020 Instruction Type:Provider Instructions for Treatment How to Access Health Informa tion Online using Patient Portal and [employer] Apps Indication:Nonsmoker Start:13-Nov-2020 Instruction Type:Patient Education How to access health informa tion online Indication:Nonsmoker Start:14-Aug-2020 Instruction Type:Patient Education How to access health informa tion online - Detail Indication:Nonsmoker Start:14-Aug-2020 Instruction Type:Patient Education Patient Instructions Indication:History of atrial fibrillation Start:14-Aug-2020 Instruction Type:Provider Instructions for Treatment How to access health informa tion online Indication:BMI 37.0-37.9, adult Start:02-Apr-2020 Instruction Type:Patient Education How to access health informa tion online - Detail Indication:BMI 37.0-37.9, adult Start:02-Apr-2020 Instruction Type:Patient Education Patient Instructions Indication:BMI 37.0-37.9, adult Start:02-Apr-2020 Instruction Type:Provider Instructions for Treatment How to access health informa tion online Indication:Nonsmoker Start:12-Feb-2020 Instruction Type:Patient Education How to access health informa tion online - Detail Indication:Nonsmoker Start:12-Feb-2020 Instruction Type:Patient Education Patient Instructions Indication:Nonsmoker Start:12-Feb-2020 Instruction Type:Provider Instructions for Treatment How to access health informa tion online Indication:BMI 37.0-37.9, adult Start:05-Nov-2019 Instruction Type:Patient Education How to access health informa tion online - Detail Indication:BMI 37.0-37.9, adult Start:05-Nov-2019 Instruction Type:Patient Education Patient Instructions Indication:BMI 37.0-37.9, adult Start:05-Nov-2019 Instruction Type:Provider Instructions for Treatment How to access health informa tion online Indication:Nonsmoker Start:13-Aug-2018 Instruction Type:Patient Education How to access health informa tion online - Detail Indication:Nonsmoker Start:13-Aug-2018 Instruction Type:Patient Education Patient Instructions Indication:Nonsmoker Start:13-Aug-2018 Instruction Type:Provider Instructions for Treatment How to access health informa tion online Indication:Nonsmoker Start:06-Aug-2018 Instruction Type:Patient Education How to access health informa tion online - Detail Indication:Nonsmoker Start:06-Aug-2018 Instruction Type:Patient Education Patient Instructions Indication:Nonsmoker Start:06-Aug-2018 Instruction Type:Provider Instructions for Treatment How to access health informa tion online Indication:Sinusitis, acute Start:13-Apr-2018 Instruction Type:Patient Education How to access health informa tion online - Detail Indication:Sinusitis, acute Start:13-Apr-2018 Instruction Type:Patient Education Patient Instructions Indication:Sinusitis, acute Start:13-Apr-2018 Instruction Type:Provider Instructions for Treatment How to access health informa tion online Indication:BMI 35.0-35.9,adult Start:07-Dec-2017 Instruction Type:Patient Education How to access health informa tion online - Detail Indication:BMI 35.0-35.9,adult Start:07-Dec-2017 Instruction Type:Patient Education Patient Instructions Indication:Sore throat Start:07-Dec-2017 Instruction Type:Provider Instructions for Treatment DISCONTINUED - LIPID PANEL ( [id number]) Indication:Mixed Hyperlipidemia Start:25-Jul-2017 Instruction Type:Patient Education DISCONTINUED - HEPATIC FUNCT ION PANEL ([id number]) Indication:Mixed Hyperlipidemia Start:25-Jul-2017 Instruction Type:Patient Education How to access health informa tion online Indication:Hypertension Start:25-Jul-2017 Instruction Type:Patient Education How to access health informa tion online - Detail Indication:Hypertension Start:25-Jul-2017 Instruction Type:Patient Education Patient Instructions Indication:Hypertension Start:25-Jul-2017 Instruction Type:Provider Instructions for Treatment How to access health informa tion online Indication:BMI 34.0-34.9,adult Start:13-Sep-2016 Instruction Type:Patient Education How to access health informa tion online - Detail Indication:BMI 34.0-34.9,adult Start:13-Sep-2016 Instruction Type:Patient Education Patient Instructions Indication:BMI 34.0-34.9,adult Start:13-Sep-2016 Instruction Type:Provider Instructions for Treatment Patient Instructions Indication:Squamous cell carcinoma, face Start:27-Jun-2016 Instruction Type:Provider Instructions for Treatment Patient Instructions Indication:Flank pain Start:26-Oct-2015 Instruction Type:Provider Instructions for Treatment Patient Instructions Indication:Acute pharyngitis Start:01-Sep-2014 Instruction Type:Provider Instructions for Treatment How to access health informa tion online Indication:Acute pharyngitis Start:01-Sep-2014 Instruction Type:Patient Education How to access health informa tion online - Detail Indication:Acute pharyngitis Start:01-Sep-2014 Instruction Type:Patient Education Patient Instructions Indication:Acute pharyngitis Start:01-Sep-2014 Instruction Type:Provider Instructions for Treatment Patient Instructions Indication:Allergic Rhinitis Start:07-Jan-2014 Instruction Type:Provider Instructions for Treatment Patient Instructions Indication:Hyperglyceridemia Start:07-Jan-2014 Instruction Type:Provider Instructions for Treatment obesity counseling Indication:BMI 34.0-34.9,adult Start:24-Jun-2013 Instruction Type:Provider Instructions for Treatment Patient Instructions Indication:Need for prophylactic vaccination and inoculation against influenza Start:24-Jun-2013 Instruction Type:Provider Instructions for Treatment Patient Instructions Indication:Hypertension Start:26-Oct-2012 Instruction Type:Provider Instructions for Treatment patient instrucitons: stop h yzaar, start new rate limiting step and bp control rx at pharm Indication:Atrial fibrillation Start:07-May-2012 Instruction Type:Provider Instructions for Treatment [facility]; [facility] Work Phone: Instructions* Name Dates Details Patient Instructions Indication:BMI 37.0-37.9, adult Start:31-Jan-2022 Instruction Type:Provider Instructions for Treatment How to Access Health Informa tion Online using Patient Portal and [employer] Apps Indication:BMI 37.0-37.9, adult Start:31-Jan-2022 Instruction Type:Patient Education Patient Instructions Indication:Nonsmoker Start:25-Aug-2021 Instruction Type:Provider Instructions for Treatment How to Access Health Informa tion Online using Patient Portal and [employer] Apps Indication:Nonsmoker Start:25-Aug-2021 Instruction Type:Patient Education Patient Instructions Indication:BMI 37.0-37.9, adult Start:26-May-2021 Instruction Type:Provider Instructions for Treatment How to Access Health Informa tion Online using Patient Portal and [employer] Apps Indication:BMI 37.0-37.9, adult Start:26-May-2021 Instruction Type:Patient Education Patient Instructions Indication:BMI 37.0-37.9, adult Start:11-May-2021 Instruction Type:Provider Instructions for Treatment How to Access Health Informa tion Online using Patient Portal and [employer] Apps Indication:BMI 37.0-37.9, adult Start:11-May-2021 Instruction Type:Patient Education How to Access Health Informa tion Online using Patient Portal and [employer] Apps Indication:Nonsmoker Start:02-Mar-2021 Instruction Type:Patient Education Patient Instructions Indication:Nonsmoker Start:02-Mar-2021 Instruction Type:Provider Instructions for Treatment Patient Instructions Indication:Nonsmoker Start:23-Dec-2020 Instruction Type:Provider Instructions for Treatment How to Access Health Informa tion Online using Patient Portal and [employer] Apps Indication:Nonsmoker Start:23-Dec-2020 Instruction Type:Patient Education Patient Instructions Indication:Nonsmoker Start:13-Nov-2020 Instruction Type:Provider Instructions for Treatment How to Access Health Informa tion Online using Patient Portal and [employer] Apps Indication:Nonsmoker Start:13-Nov-2020 Instruction Type:Patient Education How to access health informa tion online Indication:Nonsmoker Start:14-Aug-2020 Instruction Type:Patient Education How to access health informa tion online - Detail Indication:Nonsmoker Start:14-Aug-2020 Instruction Type:Patient Education Patient Instructions Indication:History of atrial fibrillation Start:14-Aug-2020 Instruction Type:Provider Instructions for Treatment How to access health informa tion online Indication:BMI 37.0-37.9, adult Start:02-Apr-2020 Instruction Type:Patient Education How to access health informa tion online - Detail Indication:BMI 37.0-37.9, adult Start:02-Apr-2020 Instruction Type:Patient Education Patient Instructions Indication:BMI 37.0-37.9, adult Start:02-Apr-2020 Instruction Type:Provider Instructions for Treatment How to access health informa tion online Indication:Nonsmoker Start:12-Feb-2020 Instruction Type:Patient Education How to access health informa tion online - Detail Indication:Nonsmoker Start:12-Feb-2020 Instruction Type:Patient Education Patient Instructions Indication:Nonsmoker Start:12-Feb-2020 Instruction Type:Provider Instructions for Treatment How to access health informa tion online Indication:BMI 37.0-37.9, adult Start:05-Nov-2019 Instruction Type:Patient Education How to access health informa tion online - Detail Indication:BMI 37.0-37.9, adult Start:05-Nov-2019 Instruction Type:Patient Education Patient Instructions Indication:BMI 37.0-37.9, adult Start:05-Nov-2019 Instruction Type:Provider Instructions for Treatment How to access health informa tion online Indication:Nonsmoker Start:13-Aug-2018 Instruction Type:Patient Education How to access health informa tion online - Detail Indication:Nonsmoker Start:13-Aug-2018 Instruction Type:Patient Education Patient Instructions Indication:Nonsmoker Start:13-Aug-2018 Instruction Type:Provider Instructions for Treatment How to access health informa tion online Indication:Nonsmoker Start:06-Aug-2018 Instruction Type:Patient Education How to access health informa tion online - Detail Indication:Nonsmoker Start:06-Aug-2018 Instruction Type:Patient Education Patient Instructions Indication:Nonsmoker Start:06-Aug-2018 Instruction Type:Provider Instructions for Treatment How to access health informa tion online Indication:Sinusitis, acute Start:13-Apr-2018 Instruction Type:Patient Education How to access health informa tion online - Detail Indication:Sinusitis, acute Start:13-Apr-2018 Instruction Type:Patient Education Patient Instructions Indication:Sinusitis, acute Start:13-Apr-2018 Instruction Type:Provider Instructions for Treatment How to access health informa tion online Indication:BMI 35.0-35.9,adult Start:07-Dec-2017 Instruction Type:Patient Education How to access health informa tion online - Detail Indication:BMI 35.0-35.9,adult Start:07-Dec-2017 Instruction Type:Patient Education Patient Instructions Indication:Sore throat Start:07-Dec-2017 Instruction Type:Provider Instructions for Treatment DISCONTINUED - LIPID PANEL ( [id number]) Indication:Mixed Hyperlipidemia Start:25-Jul-2017 Instruction Type:Patient Education DISCONTINUED - HEPATIC FUNCT ION PANEL ([id number]) Indication:Mixed Hyperlipidemia Start:25-Jul-2017 Instruction Type:Patient Education How to access health informa tion online Indication:Hypertension Start:25-Jul-2017 Instruction Type:Patient Education How to access health informa tion online - Detail Indication:Hypertension Start:25-Jul-2017 Instruction Type:Patient Education Patient Instructions Indication:Hypertension Start:25-Jul-2017 Instruction Type:Provider Instructions for Treatment How to access health informa tion online Indication:BMI 34.0-34.9,adult Start:13-Sep-2016 Instruction Type:Patient Education How to access health informa tion online - Detail Indication:BMI 34.0-34.9,adult Start:13-Sep-2016 Instruction Type:Patient Education Patient Instructions Indication:BMI 34.0-34.9,adult Start:13-Sep-2016 Instruction Type:Provider Instructions for Treatment Patient Instructions Indication:Squamous cell carcinoma, face Start:27-Jun-2016 Instruction Type:Provider Instructions for Treatment Patient Instructions Indication:Flank pain Start:26-Oct-2015 Instruction Type:Provider Instructions for Treatment Patient Instructions Indication:Acute pharyngitis Start:01-Sep-2014 Instruction Type:Provider Instructions for Treatment How to access health informa tion online Indication:Acute pharyngitis Start:01-Sep-2014 Instruction Type:Patient Education How to access health informa tion online - Detail Indication:Acute pharyngitis Start:01-Sep-2014 Instruction Type:Patient Education Patient Instructions Indication:Acute pharyngitis Start:01-Sep-2014 Instruction Type:Provider Instructions for Treatment Patient Instructions Indication:Allergic Rhinitis Start:07-Jan-2014 Instruction Type:Provider Instructions for Treatment Patient Instructions Indication:Hyperglyceridemia Start:07-Jan-2014 Instruction Type:Provider Instructions for Treatment obesity counseling Indication:BMI 34.0-34.9,adult Start:24-Jun-2013 Instruction Type:Provider Instructions for Treatment Patient Instructions Indication:Need for prophylactic vaccination and inoculation against influenza Start:24-Jun-2013 Instruction Type:Provider Instructions for Treatment Patient Instructions Indication:Hypertension Start:26-Oct-2012 Instruction Type:Provider Instructions for Treatment patient instrucitons: stop h yzaar, start new rate limiting step and bp control rx at pharm Indication:Atrial fibrillation Start:07-May-2012 Instruction Type:Provider Instructions for Treatment [facility]; [facility] Work Phone: Instructions* Name Dates Details Patient Instructions Indication:BMI 37.0-37.9, adult Start:31-Jan-2022 Instruction Type:Provider Instructions for Treatment How to Access Health Informa tion Online using Patient Portal and [employer] Apps Indication:BMI 37.0-37.9, adult Start:31-Jan-2022 Instruction Type:Patient Education Patient Instructions Indication:Nonsmoker Start:25-Aug-2021 Instruction Type:Provider Instructions for Treatment How to Access Health Informa tion Online using Patient Portal and [employer] Apps Indication:Nonsmoker Start:25-Aug-2021 Instruction Type:Patient Education Patient Instructions Indication:BMI 37.0-37.9, adult Start:26-May-2021 Instruction Type:Provider Instructions for Treatment How to Access Health Informa tion Online using Patient Portal and [employer] Apps Indication:BMI 37.0-37.9, adult Start:26-May-2021 Instruction Type:Patient Education Patient Instructions Indication:BMI 37.0-37.9, adult Start:11-May-2021 Instruction Type:Provider Instructions for Treatment How to Access Health Informa tion Online using Patient Portal and [employer] Apps Indication:BMI 37.0-37.9, adult Start:11-May-2021 Instruction Type:Patient Education How to Access Health Informa tion Online using Patient Portal and [employer] Apps Indication:Nonsmoker Start:02-Mar-2021 Instruction Type:Patient Education Patient Instructions Indication:Nonsmoker Start:02-Mar-2021 Instruction Type:Provider Instructions for Treatment Patient Instructions Indication:Nonsmoker Start:23-Dec-2020 Instruction Type:Provider Instructions for Treatment How to Access Health Informa tion Online using Patient Portal and [employer] Apps Indication:Nonsmoker Start:23-Dec-2020 Instruction Type:Patient Education Patient Instructions Indication:Nonsmoker Start:13-Nov-2020 Instruction Type:Provider Instructions for Treatment How to Access Health Informa tion Online using Patient Portal and [employer] Apps Indication:Nonsmoker Start:13-Nov-2020 Instruction Type:Patient Education How to access health informa tion online Indication:Nonsmoker Start:14-Aug-2020 Instruction Type:Patient Education How to access health informa tion online - Detail Indication:Nonsmoker Start:14-Aug-2020 Instruction Type:Patient Education Patient Instructions Indication:History of atrial fibrillation Start:14-Aug-2020 Instruction Type:Provider Instructions for Treatment How to access health informa tion online Indication:BMI 37.0-37.9, adult Start:02-Apr-2020 Instruction Type:Patient Education How to access health informa tion online - Detail Indication:BMI 37.0-37.9, adult Start:02-Apr-2020 Instruction Type:Patient Education Patient Instructions Indication:BMI 37.0-37.9, adult Start:02-Apr-2020 Instruction Type:Provider Instructions for Treatment How to access health informa tion online Indication:Nonsmoker Start:12-Feb-2020 Instruction Type:Patient Education How to access health informa tion online - Detail Indication:Nonsmoker Start:12-Feb-2020 Instruction Type:Patient Education Patient Instructions Indication:Nonsmoker Start:12-Feb-2020 Instruction Type:Provider Instructions for Treatment How to access health informa tion online Indication:BMI 37.0-37.9, adult Start:05-Nov-2019 Instruction Type:Patient Education How to access health informa tion online - Detail Indication:BMI 37.0-37.9, adult Start:05-Nov-2019 Instruction Type:Patient Education Patient Instructions Indication:BMI 37.0-37.9, adult Start:05-Nov-2019 Instruction Type:Provider Instructions for Treatment How to access health informa tion online Indication:Nonsmoker Start:13-Aug-2018 Instruction Type:Patient Education How to access health informa tion online - Detail Indication:Nonsmoker Start:13-Aug-2018 Instruction Type:Patient Education Patient Instructions Indication:Nonsmoker Start:13-Aug-2018 Instruction Type:Provider Instructions for Treatment How to access health informa tion online Indication:Nonsmoker Start:06-Aug-2018 Instruction Type:Patient Education How to access health informa tion online - Detail Indication:Nonsmoker Start:06-Aug-2018 Instruction Type:Patient Education Patient Instructions Indication:Nonsmoker Start:06-Aug-2018 Instruction Type:Provider Instructions for Treatment How to access health informa tion online Indication:Sinusitis, acute Start:13-Apr-2018 Instruction Type:Patient Education How to access health informa tion online - Detail Indication:Sinusitis, acute Start:13-Apr-2018 Instruction Type:Patient Education Patient Instructions Indication:Sinusitis, acute Start:13-Apr-2018 Instruction Type:Provider Instructions for Treatment How to access health informa tion online Indication:BMI 35.0-35.9,adult Start:07-Dec-2017 Instruction Type:Patient Education How to access health informa tion online - Detail Indication:BMI 35.0-35.9,adult Start:07-Dec-2017 Instruction Type:Patient Education Patient Instructions Indication:Sore throat Start:07-Dec-2017 Instruction Type:Provider Instructions for Treatment DISCONTINUED - LIPID PANEL ( [id number]) Indication:Mixed Hyperlipidemia Start:25-Jul-2017 Instruction Type:Patient Education DISCONTINUED - HEPATIC FUNCT ION PANEL (85977) Indication:Mixed Hyperlipidemia Start:25-Jul-2017 Instruction Type:Patient Education How to access health informa tion online Indication:Hypertension Start:25-Jul-2017 Instruction Type:Patient Education How to access health informa tion online - Detail Indication:Hypertension Start:25-Jul-2017 Instruction Type:Patient Education Patient Instructions Indication:Hypertension Start:25-Jul-2017 Instruction Type:Provider Instructions for Treatment How to access health informa tion online Indication:BMI 34.0-34.9,adult Start:13-Sep-2016 Instruction Type:Patient Education How to access health informa tion online - Detail Indication:BMI 34.0-34.9,adult Start:13-Sep-2016 Instruction Type:Patient Education Patient Instructions Indication:BMI 34.0-34.9,adult Start:13-Sep-2016 Instruction Type:Provider Instructions for Treatment Patient Instructions Indication:Squamous cell carcinoma, face Start:27-Jun-2016 Instruction Type:Provider Instructions for Treatment Patient Instructions Indication:Flank pain Start:26-Oct-2015 Instruction Type:Provider Instructions for Treatment Patient Instructions Indication:Acute pharyngitis Start:01-Sep-2014 Instruction Type:Provider Instructions for Treatment How to access health informa tion online Indication:Acute pharyngitis Start:01-Sep-2014 Instruction Type:Patient Education How to access health informa tion online - Detail Indication:Acute pharyngitis Start:01-Sep-2014 Instruction Type:Patient Education Patient Instructions Indication:Acute pharyngitis Start:01-Sep-2014 Instruction Type:Provider Instructions for Treatment Patient Instructions Indication:Allergic Rhinitis Start:07-Jan-2014 Instruction Type:Provider Instructions for Treatment Patient Instructions Indication:Hyperglyceridemia Start:07-Jan-2014 Instruction Type:Provider Instructions for Treatment obesity counseling Indication:BMI 34.0-34.9,adult Start:24-Jun-2013 Instruction Type:Provider Instructions for Treatment Patient Instructions Indication:Need for prophylactic vaccination and inoculation against influenza Start:24-Jun-2013 Instruction Type:Provider Instructions for Treatment Patient Instructions Indication:Hypertension Start:26-Oct-2012 Instruction Type:Provider Instructions for Treatment patient instrucitons: stop h yzaar, start new rate limiting step and bp control rx at pharm Indication:Atrial fibrillation Start:07-May-2012 Instruction Type:Provider Instructions for Treatment [facility]; [facility] Work Phone: Instructions* Name Dates Details Patient Instructions Indication:BMI 37.0-37.9, adult Start:31-Jan-2022 Instruction Type:Provider Instructions for Treatment How to Access Health Informa tion Online using Patient Portal and [employer] Apps Indication:BMI 37.0-37.9, adult Start:31-Jan-2022 Instruction Type:Patient Education Patient Instructions Start:25-Aug-2021 Instruction Type:Provider Instructions for Treatment How to Access Health Informa tion Online using Patient Portal and [employer] Apps Start:25-Aug-2021 Instruction Type:Patient Education Patient Instructions Indication:BMI 37.0-37.9, adult Start:26-May-2021 Instruction Type:Provider Instructions for Treatment How to Access Health Informa tion Online using Patient Portal and [employer] Apps Indication:BMI 37.0-37.9, adult Start:26-May-2021 Instruction Type:Patient Education Patient Instructions Indication:BMI 37.0-37.9, adult Start:11-May-2021 Instruction Type:Provider Instructions for Treatment How to Access Health Informa tion Online using Patient Portal and [employer] Apps Indication:BMI 37.0-37.9, adult Start:11-May-2021 Instruction Type:Patient Education How to Access Health Informa tion Online using Patient Portal and [employer] Apps Start:02-Mar-2021 Instruction Type:Patient Education Patient Instructions Start:02-Mar-2021 Instruction Type:Provider Instructions for Treatment Patient Instructions Start:23-Dec-2020 Instruction Type:Provider Instructions for Treatment How to Access Health Informa tion Online using Patient Portal and [employer] Apps Start:23-Dec-2020 Instruction Type:Patient Education Patient Instructions Start:13-Nov-2020 Instruction Type:Provider Instructions for Treatment How to Access Health Informa tion Online using Patient Portal and [employer] Apps Start:13-Nov-2020 Instruction Type:Patient Education How to access health informa tion online Start:14-Aug-2020 Instruction Type:Patient Education How to access health informa tion online - Detail Start:14-Aug-2020 Instruction Type:Patient Education Patient Instructions Indication:History of atrial fibrillation Start:14-Aug-2020 Instruction Type:Provider Instructions for Treatment How to access health informa tion online Indication:BMI 37.0-37.9, adult Start:02-Apr-2020 Instruction Type:Patient Education How to access health informa tion online - Detail Indication:BMI 37.0-37.9, adult Start:02-Apr-2020 Instruction Type:Patient Education Patient Instructions Indication:BMI 37.0-37.9, adult Start:02-Apr-2020 Instruction Type:Provider Instructions for Treatment How to access health informa tion online Start:12-Feb-2020 Instruction Type:Patient Education How to access health informa tion online - Detail Start:12-Feb-2020 Instruction Type:Patient Education Patient Instructions Start:12-Feb-2020 Instruction Type:Provider Instructions for Treatment How to access health informa tion online Indication:BMI 37.0-37.9, adult Start:05-Nov-2019 Instruction Type:Patient Education How to access health informa tion online - Detail Indication:BMI 37.0-37.9, adult Start:05-Nov-2019 Instruction Type:Patient Education Patient Instructions Indication:BMI 37.0-37.9, adult Start:05-Nov-2019 Instruction Type:Provider Instructions for Treatment How to access health informa tion online Start:13-Aug-2018 Instruction Type:Patient Education How to access health informa tion online - Detail Start:13-Aug-2018 Instruction Type:Patient Education Patient Instructions Start:13-Aug-2018 Instruction Type:Provider Instructions for Treatment How to access health informa tion online Start:06-Aug-2018 Instruction Type:Patient Education How to access health informa tion online - Detail Start:06-Aug-2018 Instruction Type:Patient Education Patient Instructions Start:06-Aug-2018 Instruction Type:Provider Instructions for Treatment How to access health informa tion online Indication:Sinusitis, acute Start:13-Apr-2018 Instruction Type:Patient Education How to access health informa tion online - Detail Indication:Sinusitis, acute Start:13-Apr-2018 Instruction Type:Patient Education Patient Instructions Indication:Sinusitis, acute Start:13-Apr-2018 Instruction Type:Provider Instructions for Treatment How to access health informa tion online Indication:BMI 35.0-35.9,adult Start:07-Dec-2017 Instruction Type:Patient Education How to access health informa tion online - Detail Indication:BMI 35.0-35.9,adult Start:07-Dec-2017 Instruction Type:Patient Education Patient Instructions Indication:Sore throat Start:07-Dec-2017 Instruction Type:Provider Instructions for Treatment DISCONTINUED - LIPID PANEL ( [id number]) Indication:Mixed Hyperlipidemia Start:25-Jul-2017 Instruction Type:Patient Education DISCONTINUED - HEPATIC FUNCT ION PANEL ([id number]) Indication:Mixed Hyperlipidemia Start:25-Jul-2017 Instruction Type:Patient Education How to access health informa tion online Indication:Hypertension Start:25-Jul-2017 Instruction Type:Patient Education How to access health informa tion online - Detail Indication:Hypertension Start:25-Jul-2017 Instruction Type:Patient Education Patient Instructions Indication:Hypertension Start:25-Jul-2017 Instruction Type:Provider Instructions for Treatment How to access health informa tion online Indication:BMI 34.0-34.9,adult Start:13-Sep-2016 Instruction Type:Patient Education How to access health informa tion online - Detail Indication:BMI 34.0-34.9,adult Start:13-Sep-2016 Instruction Type:Patient Education Patient Instructions Indication:BMI 34.0-34.9,adult Start:13-Sep-2016 Instruction Type:Provider Instructions for Treatment Patient Instructions Indication:Squamous cell carcinoma, face Start:27-Jun-2016 Instruction Type:Provider Instructions for Treatment Patient Instructions Indication:Flank pain Start:26-Oct-2015 Instruction Type:Provider Instructions for Treatment Patient Instructions Indication:Acute pharyngitis Start:01-Sep-2014 Instruction Type:Provider Instructions for Treatment How to access health informa tion online Indication:Acute pharyngitis Start:01-Sep-2014 Instruction Type:Patient Education How to access health informa tion online - Detail Indication:Acute pharyngitis Start:01-Sep-2014 Instruction Type:Patient Education Patient Instructions Indication:Acute pharyngitis Start:01-Sep-2014 Instruction Type:Provider Instructions for Treatment Patient Instructions Indication:Allergic Rhinitis Start:07-Jan-2014 Instruction Type:Provider Instructions for Treatment Patient Instructions Indication:Hyperglyceridemia Start:07-Jan-2014 Instruction Type:Provider Instructions for Treatment obesity counseling Indication:BMI 34.0-34.9,adult Start:24-Jun-2013 Instruction Type:Provider Instructions for Treatment Patient Instructions Indication:Need for prophylactic vaccination and inoculation against influenza Start:24-Jun-2013 Instruction Type:Provider Instructions for Treatment Patient Instructions Indication:Hypertension Start:26-Oct-2012 Instruction Type:Provider Instructions for Treatment patient instrucitons: stop h yzaar, start new rate limiting step and bp control rx at pharm Indication:Atrial fibrillation Start:07-May-2012 Instruction Type:Provider Instructions for Treatment [facility]; [facility] Work Phone: Instructions* Name Dates Details How to Access Health Informa tion Online using Patient Portal and [employer] Apps Indication:Nonsmoker Start:22-Aug-2022 Instruction Type:Patient Education Patient Instructions Indication:Nonsmoker Start:22-Aug-2022 Instruction Type:Provider Instructions for Treatment Patient Instructions Indication:BMI 37.0-37.9, adult Start:31-Jan-2022 Instruction Type:Provider Instructions for Treatment How to Access Health Informa tion Online using Patient Portal and [employer] Apps Indication:BMI 37.0-37.9, adult Start:31-Jan-2022 Instruction Type:Patient Education Patient Instructions Indication:Nonsmoker Start:25-Aug-2021 Instruction Type:Provider Instructions for Treatment How to Access Health Informa tion Online using Patient Portal and [employer] Apps Indication:Nonsmoker Start:25-Aug-2021 Instruction Type:Patient Education Patient Instructions Indication:BMI 37.0-37.9, adult Start:26-May-2021 Instruction Type:Provider Instructions for Treatment How to Access Health Informa tion Online using Patient Portal and [employer] Apps Indication:BMI 37.0-37.9, adult Start:26-May-2021 Instruction Type:Patient Education Patient Instructions Indication:BMI 37.0-37.9, adult Start:11-May-2021 Instruction Type:Provider Instructions for Treatment How to Access Health Informa tion Online using Patient Portal and [employer] Apps Indication:BMI 37.0-37.9, adult Start:11-May-2021 Instruction Type:Patient Education How to Access Health Informa tion Online using Patient Portal and [employer] Apps Indication:Nonsmoker Start:02-Mar-2021 Instruction Type:Patient Education Patient Instructions Indication:Nonsmoker Start:02-Mar-2021 Instruction Type:Provider Instructions for Treatment Patient Instructions Indication:Nonsmoker Start:23-Dec-2020 Instruction Type:Provider Instructions for Treatment How to Access Health Informa tion Online using Patient Portal and [employer] Apps Indication:Nonsmoker Start:23-Dec-2020 Instruction Type:Patient Education Patient Instructions Indication:Nonsmoker Start:13-Nov-2020 Instruction Type:Provider Instructions for Treatment How to Access Health Informa tion Online using Patient Portal and [employer] Apps Indication:Nonsmoker Start:13-Nov-2020 Instruction Type:Patient Education How to access health informa tion online Indication:Nonsmoker Start:14-Aug-2020 Instruction Type:Patient Education How to access health informa tion online - Detail Indication:Nonsmoker Start:14-Aug-2020 Instruction Type:Patient Education Patient Instructions Indication:History of atrial fibrillation Start:14-Aug-2020 Instruction Type:Provider Instructions for Treatment How to access health informa tion online Indication:BMI 37.0-37.9, adult Start:02-Apr-2020 Instruction Type:Patient Education How to access health informa tion online - Detail Indication:BMI 37.0-37.9, adult Start:02-Apr-2020 Instruction Type:Patient Education Patient Instructions Indication:BMI 37.0-37.9, adult Start:02-Apr-2020 Instruction Type:Provider Instructions for Treatment How to access health informa tion online Indication:Nonsmoker Start:12-Feb-2020 Instruction Type:Patient Education How to access health informa tion online - Detail Indication:Nonsmoker Start:12-Feb-2020 Instruction Type:Patient Education Patient Instructions Indication:Nonsmoker Start:12-Feb-2020 Instruction Type:Provider Instructions for Treatment How to access health informa tion online Indication:BMI 37.0-37.9, adult Start:05-Nov-2019 Instruction Type:Patient Education How to access health informa tion online - Detail Indication:BMI 37.0-37.9, adult Start:05-Nov-2019 Instruction Type:Patient Education Patient Instructions Indication:BMI 37.0-37.9, adult Start:05-Nov-2019 Instruction Type:Provider Instructions for Treatment How to access health informa tion online Indication:Nonsmoker Start:13-Aug-2018 Instruction Type:Patient Education How to access health informa tion online - Detail Indication:Nonsmoker Start:13-Aug-2018 Instruction Type:Patient Education Patient Instructions Indication:Nonsmoker Start:13-Aug-2018 Instruction Type:Provider Instructions for Treatment How to access health informa tion online Indication:Nonsmoker Start:06-Aug-2018 Instruction Type:Patient Education How to access health informa tion online - Detail Indication:Nonsmoker Start:06-Aug-2018 Instruction Type:Patient Education Patient Instructions Indication:Nonsmoker Start:06-Aug-2018 Instruction Type:Provider Instructions for Treatment How to access health informa tion online Indication:Sinusitis, acute Start:13-Apr-2018 Instruction Type:Patient Education How to access health informa tion online - Detail Indication:Sinusitis, acute Start:13-Apr-2018 Instruction Type:Patient Education Patient Instructions Indication:Sinusitis, acute Start:13-Apr-2018 Instruction Type:Provider Instructions for Treatment How to access health informa tion online Indication:BMI 35.0-35.9,adult Start:07-Dec-2017 Instruction Type:Patient Education How to access health informa tion online - Detail Indication:BMI 35.0-35.9,adult Start:07-Dec-2017 Instruction Type:Patient Education Patient Instructions Indication:Sore throat Start:07-Dec-2017 Instruction Type:Provider Instructions for Treatment DISCONTINUED - LIPID PANEL ( [id number]) Indication:Mixed Hyperlipidemia Start:25-Jul-2017 Instruction Type:Patient Education DISCONTINUED - HEPATIC FUNCT ION PANEL ([id number]) Indication:Mixed Hyperlipidemia Start:25-Jul-2017 Instruction Type:Patient Education How to access health informa tion online Indication:Hypertension Start:25-Jul-2017 Instruction Type:Patient Education How to access health informa tion online - Detail Indication:Hypertension Start:25-Jul-2017 Instruction Type:Patient Education Patient Instructions Indication:Hypertension Start:25-Jul-2017 Instruction Type:Provider Instructions for Treatment How to access health informa tion online Indication:BMI 34.0-34.9,adult Start:13-Sep-2016 Instruction Type:Patient Education How to access health informa tion online - Detail Indication:BMI 34.0-34.9,adult Start:13-Sep-2016 Instruction Type:Patient Education Patient Instructions Indication:BMI 34.0-34.9,adult Start:13-Sep-2016 Instruction Type:Provider Instructions for Treatment Patient Instructions Indication:Squamous cell carcinoma, face Start:27-Jun-2016 Instruction Type:Provider Instructions for Treatment Patient Instructions Indication:Flank pain Start:26-Oct-2015 Instruction Type:Provider Instructions for Treatment Patient Instructions Indication:Acute pharyngitis Start:01-Sep-2014 Instruction Type:Provider Instructions for Treatment How to access health informa tion online Indication:Acute pharyngitis Start:01-Sep-2014 Instruction Type:Patient Education How to access health informa tion online - Detail Indication:Acute pharyngitis Start:01-Sep-2014 Instruction Type:Patient Education Patient Instructions Indication:Acute pharyngitis Start:01-Sep-2014 Instruction Type:Provider Instructions for Treatment Patient Instructions Indication:Allergic Rhinitis Start:07-Jan-2014 Instruction Type:Provider Instructions for Treatment Patient Instructions Indication:Hyperglyceridemia Start:07-Jan-2014 Instruction Type:Provider Instructions for Treatment obesity counseling Indication:BMI 34.0-34.9,adult Start:24-Jun-2013 Instruction Type:Provider Instructions for Treatment Patient Instructions Indication:Need for prophylactic vaccination and inoculation against influenza Start:24-Jun-2013 Instruction Type:Provider Instructions for Treatment Patient Instructions Indication:Hypertension Start:26-Oct-2012 Instruction Type:Provider Instructions for Treatment patient instrucitons: stop h yzaar, start new rate limiting step and bp control rx at pharm Indication:Atrial fibrillation Start:07-May-2012 Instruction Type:Provider Instructions for Treatment [facility]; [facility] Work Phone: Instructions* Name Dates Details How to Access Health Informa tion Online using Patient Portal and [employer] Apps Indication:Nonsmoker Start:22-Aug-2022 Instruction Type:Patient Education Patient Instructions Indication:Nonsmoker Start:22-Aug-2022 Instruction Type:Provider Instructions for Treatment Patient Instructions Indication:BMI 37.0-37.9, adult Start:31-Jan-2022 Instruction Type:Provider Instructions for Treatment How to Access Health Informa tion Online using Patient Portal and [employer] Apps Indication:BMI 37.0-37.9, adult Start:31-Jan-2022 Instruction Type:Patient Education Patient Instructions Indication:Nonsmoker Start:25-Aug-2021 Instruction Type:Provider Instructions for Treatment How to Access Health Informa tion Online using Patient Portal and [employer] Apps Indication:Nonsmoker Start:25-Aug-2021 Instruction Type:Patient Education Patient Instructions Indication:BMI 37.0-37.9, adult Start:26-May-2021 Instruction Type:Provider Instructions for Treatment How to Access Health Informa tion Online using Patient Portal and [employer] Indication:BMI 37.0-37.9, adult Start:26-May-2021 Instruction Type:Patient Education Patient Instructions Indication:BMI 37.0-37.9, adult Start:11-May-2021 Instruction Type:Provider Instructions for Treatment How to Access Health Informa tion Online using Patient Portal and [employer] Indication:BMI 37.0-37.9, adult Start:11-May-2021 Instruction Type:Patient Education How to Access Health Informa tion Online using Patient Portal and [email or web address] Apps Indication:Nonsmoker Start:02-Mar-2021 Instruction Type:Patient Education Patient Instructions Indication:Nonsmoker Start:02-Mar-2021 Instruction Type:Provider Instructions for Treatment Patient Instructions Indication:Nonsmoker Start:23-Dec-2020 Instruction Type:Provider Instructions for Treatment How to Access Health Informa tion Online using Patient Portal and [email or web address] Indication:Nonsmoker Start:23-Dec-2020 Instruction Type:Patient Education Patient Instructions Indication:Nonsmoker Start:13-Nov-2020 Instruction Type:Provider Instructions for Treatment How to Access Health Informa tion Online using Patient Portal and [email or web address] Indication:Nonsmoker Start:13-Nov-2020 Instruction Type:Patient Education How to access health informa tion online Indication:Nonsmoker Start:14-Aug-2020 Instruction Type:Patient Education How to access health informa tion online - Detail Indication:Nonsmoker Start:14-Aug-2020 Instruction Type:Patient Education Patient Instructions Indication:History of atrial fibrillation Start:14-Aug-2020 Instruction Type:Provider Instructions for Treatment How to access health informa tion online Indication:BMI 37.0-37.9, adult Start:02-Apr-2020 Instruction Type:Patient Education How to access health informa tion online - Detail Indication:BMI 37.0-37.9, adult Start:02-Apr-2020 Instruction Type:Patient Education Patient Instructions Indication:BMI 37.0-37.9, adult Start:02-Apr-2020 Instruction Type:Provider Instructions for Treatment How to access health informa tion online Indication:Nonsmoker Start:12-Feb-2020 Instruction Type:Patient Education How to access health informa tion online - Detail Indication:Nonsmoker Start:12-Feb-2020 Instruction Type:Patient Education Patient Instructions Indication:Nonsmoker Start:12-Feb-2020 Instruction Type:Provider Instructions for Treatment How to access health informa tion online Indication:BMI 37.0-37.9, adult Start:05-Nov-2019 Instruction Type:Patient Education How to access health informa tion online - Detail Indication:BMI 37.0-37.9, adult Start:05-Nov-2019 Instruction Type:Patient Education Patient Instructions Indication:BMI 37.0-37.9, adult Start:05-Nov-2019 Instruction Type:Provider Instructions for Treatment How to access health informa tion online Indication:Nonsmoker Start:13-Aug-2018 Instruction Type:Patient Education How to access health informa tion online - Detail Indication:Nonsmoker Start:13-Aug-2018 Instruction Type:Patient Education Patient Instructions Indication:Nonsmoker Start:13-Aug-2018 Instruction Type:Provider Instructions for Treatment How to access health informa tion online Indication:Nonsmoker Start:06-Aug-2018 Instruction Type:Patient Education How to access health informa tion online - Detail Indication:Nonsmoker Start:06-Aug-2018 Instruction Type:Patient Education Patient Instructions Indication:Nonsmoker Start:06-Aug-2018 Instruction Type:Provider Instructions for Treatment How to access health informa tion online Indication:Sinusitis, acute Start:13-Apr-2018 Instruction Type:Patient Education How to access health informa tion online - Detail Indication:Sinusitis, acute Start:13-Apr-2018 Instruction Type:Patient Education Patient Instructions Indication:Sinusitis, acute Start:13-Apr-2018 Instruction Type:Provider Instructions for Treatment How to access health informa tion online Indication:BMI 35.0-35.9,adult Start:07-Dec-2017 Instruction Type:Patient Education How to access health informa tion online - Detail Indication:BMI 35.0-35.9,adult Start:07-Dec-2017 Instruction Type:Patient Education Patient Instructions Indication:Sore throat Start:07-Dec-2017 Instruction Type:Provider Instructions for Treatment DISCONTINUED - LIPID PANEL ( 63717) Indication:Mixed Hyperlipidemia Start:25-Jul-2017 Instruction Type:Patient Education DISCONTINUED - HEPATIC FUNCT ION PANEL (98054) Indication:Mixed Hyperlipidemia Start:25-Jul-2017 Instruction Type:Patient Education How to access health informa tion online Indication:Hypertension Start:25-Jul-2017 Instruction Type:Patient Education How to access health informa tion online - Detail Indication:Hypertension Start:25-Jul-2017 Instruction Type:Patient Education Patient Instructions Indication:Hypertension Start:25-Jul-2017 Instruction Type:Provider Instructions for Treatment How to access health informa tion online Indication:BMI 34.0-34.9,adult Start:13-Sep-2016 Instruction Type:Patient Education How to access health informa tion online - Detail Indication:BMI 34.0-34.9,adult Start:13-Sep-2016 Instruction Type:Patient Education Patient Instructions Indication:BMI 34.0-34.9,adult Start:13-Sep-2016 Instruction Type:Provider Instructions for Treatment Patient Instructions Indication:Squamous cell carcinoma, face Start:27-Jun-2016 Instruction Type:Provider Instructions for Treatment Patient Instructions Indication:Flank pain Start:26-Oct-2015 Instruction Type:Provider Instructions for Treatment Patient Instructions Indication:Acute pharyngitis Start:01-Sep-2014 Instruction Type:Provider Instructions for Treatment How to access health informa tion online Indication:Acute pharyngitis Start:01-Sep-2014 Instruction Type:Patient Education How to access health informa tion online - Detail Indication:Acute pharyngitis Start:01-Sep-2014 Instruction Type:Patient Education Patient Instructions Indication:Acute pharyngitis Start:01-Sep-2014 Instruction Type:Provider Instructions for Treatment Patient Instructions Indication:Allergic Rhinitis Start:07-Jan-2014 Instruction Type:Provider Instructions for Treatment Patient Instructions Indication:Hyperglyceridemia Start:07-Jan-2014 Instruction Type:Provider Instructions for Treatment obesity counseling Indication:BMI 34.0-34.9,adult Start:24-Jun-2013 Instruction Type:Provider Instructions for Treatment Patient Instructions Indication:Need for prophylactic vaccination and inoculation against influenza Start:24-Jun-2013 Instruction Type:Provider Instructions for Treatment Patient Instructions Indication:Hypertension Start:26-Oct-2012 Instruction Type:Provider Instructions for Treatment patient instrucitons: stop h yzaar, start new rate limiting step and bp control rx at pharm Indication:Atrial fibrillation Start:07-May-2012 Instruction Type:Provider Instructions for Treatment [facility]; [facility] Work Phone: Instructions* Name Dates Details How to Access Health Informa tion Online using Patient Portal and [employer] Apps Indication:Nonsmoker Start:22-Aug-2022 Instruction Type:Patient Education Patient Instructions Indication:Nonsmoker Start:22-Aug-2022 Instruction Type:Provider Instructions for Treatment Patient Instructions Indication:BMI 37.0-37.9, adult Start:31-Jan-2022 Instruction Type:Provider Instructions for Treatment How to Access Health Informa tion Online using Patient Portal and [employer] Apps Indication:BMI 37.0-37.9, adult Start:31-Jan-2022 Instruction Type:Patient Education Patient Instructions Indication:Nonsmoker Start:25-Aug-2021 Instruction Type:Provider Instructions for Treatment How to Access Health Informa tion Online using Patient Portal and [employer] Indication:Nonsmoker Start:25-Aug-2021 Instruction Type:Patient Education Patient Instructions Indication:BMI 37.0-37.9, adult Start:26-May-2021 Instruction Type:Provider Instructions for Treatment How to Access Health Informa tion Online using Patient Portal and [employer] Indication:BMI 37.0-37.9, adult Start:26-May-2021 Instruction Type:Patient Education Patient Instructions Indication:BMI 37.0-37.9, adult Start:11-May-2021 Instruction Type:Provider Instructions for Treatment How to Access Health Informa tion Online using Patient Portal and [employer] Indication:BMI 37.0-37.9, adult Start:11-May-2021 Instruction Type:Patient Education How to Access Health Informa tion Online using Patient Portal and [employer] Apps Indication:Nonsmoker Start:02-Mar-2021 Instruction Type:Patient Education Patient Instructions Indication:Nonsmoker Start:02-Mar-2021 Instruction Type:Provider Instructions for Treatment Patient Instructions Indication:Nonsmoker Start:23-Dec-2020 Instruction Type:Provider Instructions for Treatment How to Access Health Informa tion Online using Patient Portal and [employer] Indication:Nonsmoker Start:23-Dec-2020 Instruction Type:Patient Education Patient Instructions Indication:Nonsmoker Start:13-Nov-2020 Instruction Type:Provider Instructions for Treatment How to Access Health Informa tion Online using Patient Portal and [employer] Indication:Nonsmoker Start:13-Nov-2020 Instruction Type:Patient Education How to access health informa tion online Indication:Nonsmoker Start:14-Aug-2020 Instruction Type:Patient Education How to access health informa tion online - Detail Indication:Nonsmoker Start:14-Aug-2020 Instruction Type:Patient Education Patient Instructions Indication:History of atrial fibrillation Start:14-Aug-2020 Instruction Type:Provider Instructions for Treatment How to access health informa tion online Indication:BMI 37.0-37.9, adult Start:02-Apr-2020 Instruction Type:Patient Education How to access health informa tion online - Detail Indication:BMI 37.0-37.9, adult Start:02-Apr-2020 Instruction Type:Patient Education Patient Instructions Indication:BMI 37.0-37.9, adult Start:02-Apr-2020 Instruction Type:Provider Instructions for Treatment How to access health informa tion online Indication:Nonsmoker Start:12-Feb-2020 Instruction Type:Patient Education How to access health informa tion online - Detail Indication:Nonsmoker Start:12-Feb-2020 Instruction Type:Patient Education Patient Instructions Indication:Nonsmoker Start:12-Feb-2020 Instruction Type:Provider Instructions for Treatment How to access health informa tion online Indication:BMI 37.0-37.9, adult Start:05-Nov-2019 Instruction Type:Patient Education How to access health informa tion online - Detail Indication:BMI 37.0-37.9, adult Start:05-Nov-2019 Instruction Type:Patient Education Patient Instructions Indication:BMI 37.0-37.9, adult Start:05-Nov-2019 Instruction Type:Provider Instructions for Treatment How to access health informa tion online Indication:Nonsmoker Start:13-Aug-2018 Instruction Type:Patient Education How to access health informa tion online - Detail Indication:Nonsmoker Start:13-Aug-2018 Instruction Type:Patient Education Patient Instructions Indication:Nonsmoker Start:13-Aug-2018 Instruction Type:Provider Instructions for Treatment How to access health informa tion online Indication:Nonsmoker Start:06-Aug-2018 Instruction Type:Patient Education How to access health informa tion online - Detail Indication:Nonsmoker Start:06-Aug-2018 Instruction Type:Patient Education Patient Instructions Indication:Nonsmoker Start:06-Aug-2018 Instruction Type:Provider Instructions for Treatment How to access health informa tion online Indication:Sinusitis, acute Start:13-Apr-2018 Instruction Type:Patient Education How to access health informa tion online - Detail Indication:Sinusitis, acute Start:13-Apr-2018 Instruction Type:Patient Education Patient Instructions Indication:Sinusitis, acute Start:13-Apr-2018 Instruction Type:Provider Instructions for Treatment How to access health informa tion online Indication:BMI 35.0-35.9,adult Start:07-Dec-2017 Instruction Type:Patient Education How to access health informa tion online - Detail Indication:BMI 35.0-35.9,adult Start:07-Dec-2017 Instruction Type:Patient Education Patient Instructions Indication:Sore throat Start:07-Dec-2017 Instruction Type:Provider Instructions for Treatment DISCONTINUED - LIPID PANEL ( [id number]) Indication:Mixed Hyperlipidemia Start:25-Jul-2017 Instruction Type:Patient Education DISCONTINUED - HEPATIC FUNCT ION PANEL ([id number]) Indication:Mixed Hyperlipidemia Start:25-Jul-2017 Instruction Type:Patient Education How to access health informa tion online Indication:Hypertension Start:25-Jul-2017 Instruction Type:Patient Education How to access health informa tion online - Detail Indication:Hypertension Start:25-Jul-2017 Instruction Type:Patient Education Patient Instructions Indication:Hypertension Start:25-Jul-2017 Instruction Type:Provider Instructions for Treatment How to access health informa tion online Indication:BMI 34.0-34.9,adult Start:13-Sep-2016 Instruction Type:Patient Education How to access health informa tion online - Detail Indication:BMI 34.0-34.9,adult Start:13-Sep-2016 Instruction Type:Patient Education Patient Instructions Indication:BMI 34.0-34.9,adult Start:13-Sep-2016 Instruction Type:Provider Instructions for Treatment Patient Instructions Indication:Squamous cell carcinoma, face Start:27-Jun-2016 Instruction Type:Provider Instructions for Treatment Patient Instructions Indication:Flank pain Start:26-Oct-2015 Instruction Type:Provider Instructions for Treatment Patient Instructions Indication:Acute pharyngitis Start:01-Sep-2014 Instruction Type:Provider Instructions for Treatment How to access health informa tion online Indication:Acute pharyngitis Start:01-Sep-2014 Instruction Type:Patient Education How to access health informa tion online - Detail Indication:Acute pharyngitis Start:01-Sep-2014 Instruction Type:Patient Education Patient Instructions Indication:Acute pharyngitis Start:01-Sep-2014 Instruction Type:Provider Instructions for Treatment Patient Instructions Indication:Allergic Rhinitis Start:07-Jan-2014 Instruction Type:Provider Instructions for Treatment Patient Instructions Indication:Hyperglyceridemia Start:07-Jan-2014 Instruction Type:Provider Instructions for Treatment obesity counseling Indication:BMI 34.0-34.9,adult Start:24-Jun-2013 Instruction Type:Provider Instructions for Treatment Patient Instructions Indication:Need for prophylactic vaccination and inoculation against influenza Start:24-Jun-2013 Instruction Type:Provider Instructions for Treatment Patient Instructions Indication:Hypertension Start:26-Oct-2012 Instruction Type:Provider Instructions for Treatment patient instrucitons: stop h yzaar, start new rate limiting step and bp control rx at pharm Indication:Atrial fibrillation Start:07-May-2012 Instruction Type:Provider Instructions for Treatment [facility]; [facility] Work Phone: Instructions* Name Dates Details How to Access Health Informa tion Online using Patient Portal and [employer] Apps Indication:Nonsmoker Start:22-Aug-2022 Instruction Type:Patient Education Patient Instructions Indication:Nonsmoker Start:22-Aug-2022 Instruction Type:Provider Instructions for Treatment Patient Instructions Indication:BMI 37.0-37.9, adult Start:31-Jan-2022 Instruction Type:Provider Instructions for Treatment How to Access Health Informa tion Online using Patient Portal and [employer] Apps Indication:BMI 37.0-37.9, adult Start:31-Jan-2022 Instruction Type:Patient Education Patient Instructions Indication:Nonsmoker Start:25-Aug-2021 Instruction Type:Provider Instructions for Treatment How to Access Health Informa tion Online using Patient Portal and [employer] Apps Indication:Nonsmoker Start:25-Aug-2021 Instruction Type:Patient Education Patient Instructions Indication:BMI 37.0-37.9, adult Start:26-May-2021 Instruction Type:Provider Instructions for Treatment How to Access Health Informa tion Online using Patient Portal and [employer] Apps Indication:BMI 37.0-37.9, adult Start:26-May-2021 Instruction Type:Patient Education Patient Instructions Indication:BMI 37.0-37.9, adult Start:11-May-2021 Instruction Type:Provider Instructions for Treatment How to Access Health Informa tion Online using Patient Portal and [employer] Apps Indication:BMI 37.0-37.9, adult Start:11-May-2021 Instruction Type:Patient Education How to Access Health Informa tion Online using Patient Portal and [employer] Apps Indication:Nonsmoker Start:02-Mar-2021 Instruction Type:Patient Education Patient Instructions Indication:Nonsmoker Start:02-Mar-2021 Instruction Type:Provider Instructions for Treatment Patient Instructions Indication:Nonsmoker Start:23-Dec-2020 Instruction Type:Provider Instructions for Treatment How to Access Health Informa tion Online using Patient Portal and [employer] Apps Indication:Nonsmoker Start:23-Dec-2020 Instruction Type:Patient Education Patient Instructions Indication:Nonsmoker Start:13-Nov-2020 Instruction Type:Provider Instructions for Treatment How to Access Health Informa tion Online using Patient Portal and [employer] Apps Indication:Nonsmoker Start:13-Nov-2020 Instruction Type:Patient Education How to access health informa tion online Indication:Nonsmoker Start:14-Aug-2020 Instruction Type:Patient Education How to access health informa tion online - Detail Indication:Nonsmoker Start:14-Aug-2020 Instruction Type:Patient Education Patient Instructions Indication:History of atrial fibrillation Start:14-Aug-2020 Instruction Type:Provider Instructions for Treatment How to access health informa tion online Indication:BMI 37.0-37.9, adult Start:02-Apr-2020 Instruction Type:Patient Education How to access health informa tion online - Detail Indication:BMI 37.0-37.9, adult Start:02-Apr-2020 Instruction Type:Patient Education Patient Instructions Indication:BMI 37.0-37.9, adult Start:02-Apr-2020 Instruction Type:Provider Instructions for Treatment How to access health informa tion online Indication:Nonsmoker Start:12-Feb-2020 Instruction Type:Patient Education How to access health informa tion online - Detail Indication:Nonsmoker Start:12-Feb-2020 Instruction Type:Patient Education Patient Instructions Indication:Nonsmoker Start:12-Feb-2020 Instruction Type:Provider Instructions for Treatment How to access health informa tion online Indication:BMI 37.0-37.9, adult Start:05-Nov-2019 Instruction Type:Patient Education How to access health informa tion online - Detail Indication:BMI 37.0-37.9, adult Start:05-Nov-2019 Instruction Type:Patient Education Patient Instructions Indication:BMI 37.0-37.9, adult Start:05-Nov-2019 Instruction Type:Provider Instructions for Treatment How to access health informa tion online Indication:Nonsmoker Start:13-Aug-2018 Instruction Type:Patient Education How to access health informa tion online - Detail Indication:Nonsmoker Start:13-Aug-2018 Instruction Type:Patient Education Patient Instructions Indication:Nonsmoker Start:13-Aug-2018 Instruction Type:Provider Instructions for Treatment How to access health informa tion online Indication:Nonsmoker Start:06-Aug-2018 Instruction Type:Patient Education How to access health informa tion online - Detail Indication:Nonsmoker Start:06-Aug-2018 Instruction Type:Patient Education Patient Instructions Indication:Nonsmoker Start:06-Aug-2018 Instruction Type:Provider Instructions for Treatment How to access health informa tion online Indication:Sinusitis, acute Start:13-Apr-2018 Instruction Type:Patient Education How to access health informa tion online - Detail Indication:Sinusitis, acute Start:13-Apr-2018 Instruction Type:Patient Education Patient Instructions Indication:Sinusitis, acute Start:13-Apr-2018 Instruction Type:Provider Instructions for Treatment How to access health informa tion online Indication:BMI 35.0-35.9,adult Start:07-Dec-2017 Instruction Type:Patient Education How to access health informa tion online - Detail Indication:BMI 35.0-35.9,adult Start:07-Dec-2017 Instruction Type:Patient Education Patient Instructions Indication:Sore throat Start:07-Dec-2017 Instruction Type:Provider Instructions for Treatment DISCONTINUED - LIPID PANEL ( 76170) Indication:Mixed Hyperlipidemia Start:25-Jul-2017 Instruction Type:Patient Education DISCONTINUED - HEPATIC FUNCT ION PANEL (83225) Indication:Mixed Hyperlipidemia Start:25-Jul-2017 Instruction Type:Patient Education How to access health informa tion online Indication:Hypertension Start:25-Jul-2017 Instruction Type:Patient Education How to access health informa tion online - Detail Indication:Hypertension Start:25-Jul-2017 Instruction Type:Patient Education Patient Instructions Indication:Hypertension Start:25-Jul-2017 Instruction Type:Provider Instructions for Treatment How to access health informa tion online Indication:BMI 34.0-34.9,adult Start:13-Sep-2016 Instruction Type:Patient Education How to access health informa tion online - Detail Indication:BMI 34.0-34.9,adult Start:13-Sep-2016 Instruction Type:Patient Education Patient Instructions Indication:BMI 34.0-34.9,adult Start:13-Sep-2016 Instruction Type:Provider Instructions for Treatment Patient Instructions Indication:Squamous cell carcinoma, face Start:27-Jun-2016 Instruction Type:Provider Instructions for Treatment Patient Instructions Indication:Flank pain Start:26-Oct-2015 Instruction Type:Provider Instructions for Treatment Patient Instructions Indication:Acute pharyngitis Start:01-Sep-2014 Instruction Type:Provider Instructions for Treatment How to access health informa tion online Indication:Acute pharyngitis Start:01-Sep-2014 Instruction Type:Patient Education How to access health informa tion online - Detail Indication:Acute pharyngitis Start:01-Sep-2014 Instruction Type:Patient Education Patient Instructions Indication:Acute pharyngitis Start:01-Sep-2014 Instruction Type:Provider Instructions for Treatment Patient Instructions Indication:Allergic Rhinitis Start:07-Jan-2014 Instruction Type:Provider Instructions for Treatment Patient Instructions Indication:Hyperglyceridemia Start:07-Jan-2014 Instruction Type:Provider Instructions for Treatment obesity counseling Indication:BMI 34.0-34.9,adult Start:24-Jun-2013 Instruction Type:Provider Instructions for Treatment Patient Instructions Indication:Need for prophylactic vaccination and inoculation against influenza Start:24-Jun-2013 Instruction Type:Provider Instructions for Treatment Patient Instructions Indication:Hypertension Start:26-Oct-2012 Instruction Type:Provider Instructions for Treatment patient instrucitons: stop h yzaar, start new rate limiting step and bp control rx at pharm Indication:Atrial fibrillation Start:07-May-2012 Instruction Type:Provider Instructions for Treatment [facility]; [facility] Work Phone: Instructions* Name Dates Details Patient Instructions Indication:Mixed Hyperlipidemia Start:20-Feb-2023 Instruction Type:Provider Instructions for Treatment How to Access Health Informa tion Online using Patient Portal and [employer] Indication:Mixed Hyperlipidemia Start:20-Feb-2023 Instruction Type:Patient Education How to Access Health Informa tion Online using Patient Portal and [employer] Indication:Nonsmoker Start:22-Aug-2022 Instruction Type:Patient Education Patient Instructions Indication:Nonsmoker Start:22-Aug-2022 Instruction Type:Provider Instructions for Treatment Patient Instructions Indication:BMI 37.0-37.9, adult Start:31-Jan-2022 Instruction Type:Provider Instructions for Treatment How to Access Health Informa tion Online using Patient Portal and [employer] Indication:BMI 37.0-37.9, adult Start:31-Jan-2022 Instruction Type:Patient Education Patient Instructions Indication:Nonsmoker Start:25-Aug-2021 Instruction Type:Provider Instructions for Treatment How to Access Health Informa tion Online using Patient Portal and [employer] Indication:Nonsmoker Start:25-Aug-2021 Instruction Type:Patient Education Patient Instructions Indication:BMI 37.0-37.9, adult Start:26-May-2021 Instruction Type:Provider Instructions for Treatment How to Access Health Informa tion Online using Patient Portal and [employer] Indication:BMI 37.0-37.9, adult Start:26-May-2021 Instruction Type:Patient Education Patient Instructions Indication:BMI 37.0-37.9, adult Start:11-May-2021 Instruction Type:Provider Instructions for Treatment How to Access Health Informa tion Online using Patient Portal and [employer] Apps Indication:BMI 37.0-37.9, adult Start:11-May-2021 Instruction Type:Patient Education How to Access Health Informa tion Online using Patient Portal and [employer] Apps Indication:Nonsmoker Start:02-Mar-2021 Instruction Type:Patient Education Patient Instructions Indication:Nonsmoker Start:02-Mar-2021 Instruction Type:Provider Instructions for Treatment Patient Instructions Indication:Nonsmoker Start:23-Dec-2020 Instruction Type:Provider Instructions for Treatment How to Access Health Informa tion Online using Patient Portal and [employer] Apps Indication:Nonsmoker Start:23-Dec-2020 Instruction Type:Patient Education Patient Instructions Indication:Nonsmoker Start:13-Nov-2020 Instruction Type:Provider Instructions for Treatment How to Access Health Informa tion Online using Patient Portal and [employer] Apps Indication:Nonsmoker Start:13-Nov-2020 Instruction Type:Patient Education How to access health informa tion online Indication:Nonsmoker Start:14-Aug-2020 Instruction Type:Patient Education How to access health informa tion online - Detail Indication:Nonsmoker Start:14-Aug-2020 Instruction Type:Patient Education Patient Instructions Indication:History of atrial fibrillation Start:14-Aug-2020 Instruction Type:Provider Instructions for Treatment How to access health informa tion online Indication:BMI 37.0-37.9, adult Start:02-Apr-2020 Instruction Type:Patient Education How to access health informa tion online - Detail Indication:BMI 37.0-37.9, adult Start:02-Apr-2020 Instruction Type:Patient Education Patient Instructions Indication:BMI 37.0-37.9, adult Start:02-Apr-2020 Instruction Type:Provider Instructions for Treatment How to access health informa tion online Indication:Nonsmoker Start:12-Feb-2020 Instruction Type:Patient Education How to access health informa tion online - Detail Indication:Nonsmoker Start:12-Feb-2020 Instruction Type:Patient Education Patient Instructions Indication:Nonsmoker Start:12-Feb-2020 Instruction Type:Provider Instructions for Treatment How to access health informa tion online Indication:BMI 37.0-37.9, adult Start:05-Nov-2019 Instruction Type:Patient Education How to access health informa tion online - Detail Indication:BMI 37.0-37.9, adult Start:05-Nov-2019 Instruction Type:Patient Education Patient Instructions Indication:BMI 37.0-37.9, adult Start:05-Nov-2019 Instruction Type:Provider Instructions for Treatment How to access health informa tion online Indication:Nonsmoker Start:13-Aug-2018 Instruction Type:Patient Education How to access health informa tion online - Detail Indication:Nonsmoker Start:13-Aug-2018 Instruction Type:Patient Education Patient Instructions Indication:Nonsmoker Start:13-Aug-2018 Instruction Type:Provider Instructions for Treatment How to access health informa tion online Indication:Nonsmoker Start:06-Aug-2018 Instruction Type:Patient Education How to access health informa tion online - Detail Indication:Nonsmoker Start:06-Aug-2018 Instruction Type:Patient Education Patient Instructions Indication:Nonsmoker Start:06-Aug-2018 Instruction Type:Provider Instructions for Treatment How to access health informa tion online Indication:Sinusitis, acute Start:13-Apr-2018 Instruction Type:Patient Education How to access health informa tion online - Detail Indication:Sinusitis, acute Start:13-Apr-2018 Instruction Type:Patient Education Patient Instructions Indication:Sinusitis, acute Start:13-Apr-2018 Instruction Type:Provider Instructions for Treatment How to access health informa tion online Indication:BMI 35.0-35.9,adult Start:07-Dec-2017 Instruction Type:Patient Education How to access health informa tion online - Detail Indication:BMI 35.0-35.9,adult Start:07-Dec-2017 Instruction Type:Patient Education Patient Instructions Indication:Sore throat Start:07-Dec-2017 Instruction Type:Provider Instructions for Treatment DISCONTINUED - LIPID PANEL ( 64030) Indication:Mixed Hyperlipidemia Start:25-Jul-2017 Instruction Type:Patient Education DISCONTINUED - HEPATIC FUNCT ION PANEL ([id number]) Indication:Mixed Hyperlipidemia Start:25-Jul-2017 Instruction Type:Patient Education How to access health informa tion online Indication:Hypertension Start:25-Jul-2017 Instruction Type:Patient Education How to access health informa tion online - Detail Indication:Hypertension Start:25-Jul-2017 Instruction Type:Patient Education Patient Instructions Indication:Hypertension Start:25-Jul-2017 Instruction Type:Provider Instructions for Treatment How to access health informa tion online Indication:BMI 34.0-34.9,adult Start:13-Sep-2016 Instruction Type:Patient Education How to access health informa tion online - Detail Indication:BMI 34.0-34.9,adult Start:13-Sep-2016 Instruction Type:Patient Education Patient Instructions Indication:BMI 34.0-34.9,adult Start:13-Sep-2016 Instruction Type:Provider Instructions for Treatment Patient Instructions Indication:Squamous cell carcinoma, face Start:27-Jun-2016 Instruction Type:Provider Instructions for Treatment Patient Instructions Indication:Flank pain Start:26-Oct-2015 Instruction Type:Provider Instructions for Treatment Patient Instructions Indication:Acute pharyngitis Start:01-Sep-2014 Instruction Type:Provider Instructions for Treatment How to access health informa tion online Indication:Acute pharyngitis Start:01-Sep-2014 Instruction Type:Patient Education How to access health informa tion online - Detail Indication:Acute pharyngitis Start:01-Sep-2014 Instruction Type:Patient Education Patient Instructions Indication:Acute pharyngitis Start:01-Sep-2014 Instruction Type:Provider Instructions for Treatment Patient Instructions Indication:Allergic Rhinitis Start:07-Jan-2014 Instruction Type:Provider Instructions for Treatment Patient Instructions Indication:Hyperglyceridemia Start:07-Jan-2014 Instruction Type:Provider Instructions for Treatment obesity counseling Indication:BMI 34.0-34.9,adult Start:24-Jun-2013 Instruction Type:Provider Instructions for Treatment Patient Instructions Indication:Need for prophylactic vaccination and inoculation against influenza Start:24-Jun-2013 Instruction Type:Provider Instructions for Treatment Patient Instructions Indication:Hypertension Start:26-Oct-2012 Instruction Type:Provider Instructions for Treatment patient instrucitons: stop h yzaar, start new rate limiting step and bp control rx at pharm Indication:Atrial fibrillation Start:07-May-2012 Instruction Type:Provider Instructions for Treatment [facility]; [facility] Work Phone: Instructions* Name Dates Details Patient Instructions Indication:Class 2 obesity due to excess calories without serious comorbidity with body mass index (BMI) of 38.0 to 38.9 in adult Start:20-Feb-2023 Instruction Type:Provider Instructions for Treatment How to Access Health Informa tion Online using Patient Portal and [employer] Apps Indication:Class 2 obesity due to excess calories without serious comorbidity with body mass index (BMI) of 38.0 to 38.9 in adult Start:20-Feb-2023 Instruction Type:Patient Education How to Access Health Informa tion Online using Patient Portal and [email or web address] Apps Indication:Nonsmoker Start:22-Aug-2022 Instruction Type:Patient Education Patient Instructions Indication:Nonsmoker Start:22-Aug-2022 Instruction Type:Provider Instructions for Treatment Patient Instructions Indication:BMI 37.0-37.9, adult Start:31-Jan-2022 Instruction Type:Provider Instructions for Treatment How to Access Health Informa tion Online using Patient Portal and [employer] Apps Indication:BMI 37.0-37.9, adult Start:31-Jan-2022 Instruction Type:Patient Education Patient Instructions Indication:Nonsmoker Start:25-Aug-2021 Instruction Type:Provider Instructions for Treatment How to Access Health Informa tion Online using Patient Portal and [employer] Apps Indication:Nonsmoker Start:25-Aug-2021 Instruction Type:Patient Education Patient Instructions Indication:BMI 37.0-37.9, adult Start:26-May-2021 Instruction Type:Provider Instructions for Treatment How to Access Health Informa tion Online using Patient Portal and [employer] Apps Indication:BMI 37.0-37.9, adult Start:26-May-2021 Instruction Type:Patient Education Patient Instructions Indication:BMI 37.0-37.9, adult Start:11-May-2021 Instruction Type:Provider Instructions for Treatment How to Access Health Informa tion Online using Patient Portal and [email or web address] Indication:BMI 37.0-37.9, adult Start:11-May-2021 Instruction Type:Patient Education How to Access Health Informa tion Online using Patient Portal and [employer] Apps Indication:Nonsmoker Start:02-Mar-2021 Instruction Type:Patient Education Patient Instructions Indication:Nonsmoker Start:02-Mar-2021 Instruction Type:Provider Instructions for Treatment Patient Instructions Indication:Nonsmoker Start:23-Dec-2020 Instruction Type:Provider Instructions for Treatment How to Access Health Informa tion Online using Patient Portal and [employer] Apps Indication:Nonsmoker Start:23-Dec-2020 Instruction Type:Patient Education Patient Instructions Indication:Nonsmoker Start:13-Nov-2020 Instruction Type:Provider Instructions for Treatment How to Access Health Informa tion Online using Patient Portal and [employer] Apps Indication:Nonsmoker Start:13-Nov-2020 Instruction Type:Patient Education How to access health informa tion online Indication:Nonsmoker Start:14-Aug-2020 Instruction Type:Patient Education How to access health informa tion online - Detail Indication:Nonsmoker Start:14-Aug-2020 Instruction Type:Patient Education Patient Instructions Indication:History of atrial fibrillation Start:14-Aug-2020 Instruction Type:Provider Instructions for Treatment How to access health informa tion online Indication:BMI 37.0-37.9, adult Start:02-Apr-2020 Instruction Type:Patient Education How to access health informa tion online - Detail Indication:BMI 37.0-37.9, adult Start:02-Apr-2020 Instruction Type:Patient Education Patient Instructions Indication:BMI 37.0-37.9, adult Start:02-Apr-2020 Instruction Type:Provider Instructions for Treatment How to access health informa tion online Indication:Nonsmoker Start:12-Feb-2020 Instruction Type:Patient Education How to access health informa tion online - Detail Indication:Nonsmoker Start:12-Feb-2020 Instruction Type:Patient Education Patient Instructions Indication:Nonsmoker Start:12-Feb-2020 Instruction Type:Provider Instructions for Treatment How to access health informa tion online Indication:BMI 37.0-37.9, adult Start:05-Nov-2019 Instruction Type:Patient Education How to access health informa tion online - Detail Indication:BMI 37.0-37.9, adult Start:05-Nov-2019 Instruction Type:Patient Education Patient Instructions Indication:BMI 37.0-37.9, adult Start:05-Nov-2019 Instruction Type:Provider Instructions for Treatment How to access health informa tion online Indication:Nonsmoker Start:13-Aug-2018 Instruction Type:Patient Education How to access health informa tion online - Detail Indication:Nonsmoker Start:13-Aug-2018 Instruction Type:Patient Education Patient Instructions Indication:Nonsmoker Start:13-Aug-2018 Instruction Type:Provider Instructions for Treatment How to access health informa tion online Indication:Nonsmoker Start:06-Aug-2018 Instruction Type:Patient Education How to access health informa tion online - Detail Indication:Nonsmoker Start:06-Aug-2018 Instruction Type:Patient Education Patient Instructions Indication:Nonsmoker Start:06-Aug-2018 Instruction Type:Provider Instructions for Treatment How to access health informa tion online Indication:Sinusitis, acute Start:13-Apr-2018 Instruction Type:Patient Education How to access health informa tion online - Detail Indication:Sinusitis, acute Start:13-Apr-2018 Instruction Type:Patient Education Patient Instructions Indication:Sinusitis, acute Start:13-Apr-2018 Instruction Type:Provider Instructions for Treatment How to access health informa tion online Indication:BMI 35.0-35.9,adult Start:07-Dec-2017 Instruction Type:Patient Education How to access health informa tion online - Detail Indication:BMI 35.0-35.9,adult Start:07-Dec-2017 Instruction Type:Patient Education Patient Instructions Indication:Sore throat Start:07-Dec-2017 Instruction Type:Provider Instructions for Treatment DISCONTINUED - LIPID PANEL ( [id number]) Indication:Mixed Hyperlipidemia Start:25-Jul-2017 Instruction Type:Patient Education DISCONTINUED - HEPATIC FUNCT ION PANEL ([id number]) Indication:Mixed Hyperlipidemia Start:25-Jul-2017 Instruction Type:Patient Education How to access health informa tion online Indication:Hypertension Start:25-Jul-2017 Instruction Type:Patient Education How to access health informa tion online - Detail Indication:Hypertension Start:25-Jul-2017 Instruction Type:Patient Education Patient Instructions Indication:Hypertension Start:25-Jul-2017 Instruction Type:Provider Instructions for Treatment How to access health informa tion online Indication:BMI 34.0-34.9,adult Start:13-Sep-2016 Instruction Type:Patient Education How to access health informa tion online - Detail Indication:BMI 34.0-34.9,adult Start:13-Sep-2016 Instruction Type:Patient Education Patient Instructions Indication:BMI 34.0-34.9,adult Start:13-Sep-2016 Instruction Type:Provider Instructions for Treatment Patient Instructions Indication:Squamous cell carcinoma, face Start:27-Jun-2016 Instruction Type:Provider Instructions for Treatment Patient Instructions Indication:Flank pain Start:26-Oct-2015 Instruction Type:Provider Instructions for Treatment Patient Instructions Indication:Acute pharyngitis Start:01-Sep-2014 Instruction Type:Provider Instructions for Treatment How to access health informa tion online Indication:Acute pharyngitis Start:01-Sep-2014 Instruction Type:Patient Education How to access health informa tion online - Detail Indication:Acute pharyngitis Start:01-Sep-2014 Instruction Type:Patient Education Patient Instructions Indication:Acute pharyngitis Start:01-Sep-2014 Instruction Type:Provider Instructions for Treatment Patient Instructions Indication:Allergic Rhinitis Start:07-Jan-2014 Instruction Type:Provider Instructions for Treatment Patient Instructions Indication:Hyperglyceridemia Start:07-Jan-2014 Instruction Type:Provider Instructions for Treatment obesity counseling Indication:BMI 34.0-34.9,adult Start:24-Jun-2013 Instruction Type:Provider Instructions for Treatment Patient Instructions Indication:Need for prophylactic vaccination and inoculation against influenza Start:24-Jun-2013 Instruction Type:Provider Instructions for Treatment Patient Instructions Indication:Hypertension Start:26-Oct-2012 Instruction Type:Provider Instructions for Treatment patient instrucitons: stop h yzaar, start new rate limiting step and bp control rx at pharm Indication:Atrial fibrillation Start:07-May-2012 Instruction Type:Provider Instructions for Treatment [facility]; [facility] Work Phone: Instructions* Name Dates Details Patient Instructions Indication:Class 2 obesity due to excess calories without serious comorbidity with body mass index (BMI) of 38.0 to 38.9 in adult Start:20-Feb-2023 Instruction Type:Provider Instructions for Treatment How to Access Health Informa tion Online using Patient Portal and [employer] Apps Indication:Class 2 obesity due to excess calories without serious comorbidity with body mass index (BMI) of 38.0 to 38.9 in adult Start:20-Feb-2023 Instruction Type:Patient Education How to Access Health Informa tion Online using Patient Portal and [employer] Apps Indication:Nonsmoker Start:22-Aug-2022 Instruction Type:Patient Education Patient Instructions Indication:Nonsmoker Start:22-Aug-2022 Instruction Type:Provider Instructions for Treatment Patient Instructions Indication:BMI 37.0-37.9, adult Start:31-Jan-2022 Instruction Type:Provider Instructions for Treatment How to Access Health Informa tion Online using Patient Portal and [employer] Indication:BMI 37.0-37.9, adult Start:31-Jan-2022 Instruction Type:Patient Education Patient Instructions Indication:Nonsmoker Start:25-Aug-2021 Instruction Type:Provider Instructions for Treatment How to Access Health Informa tion Online using Patient Portal and [employer] Indication:Nonsmoker Start:25-Aug-2021 Instruction Type:Patient Education Patient Instructions Indication:BMI 37.0-37.9, adult Start:26-May-2021 Instruction Type:Provider Instructions for Treatment How to Access Health Informa tion Online using Patient Portal and [employer] Indication:BMI 37.0-37.9, adult Start:26-May-2021 Instruction Type:Patient Education Patient Instructions Indication:BMI 37.0-37.9, adult Start:11-May-2021 Instruction Type:Provider Instructions for Treatment How to Access Health Informa tion Online using Patient Portal and [employer] Indication:BMI 37.0-37.9, adult Start:11-May-2021 Instruction Type:Patient Education How to Access Health Informa tion Online using Patient Portal and [employer] Apps Indication:Nonsmoker Start:02-Mar-2021 Instruction Type:Patient Education Patient Instructions Indication:Nonsmoker Start:02-Mar-2021 Instruction Type:Provider Instructions for Treatment Patient Instructions Indication:Nonsmoker Start:23-Dec-2020 Instruction Type:Provider Instructions for Treatment How to Access Health Informa tion Online using Patient Portal and [employer] Apps Indication:Nonsmoker Start:23-Dec-2020 Instruction Type:Patient Education Patient Instructions Indication:Nonsmoker Start:13-Nov-2020 Instruction Type:Provider Instructions for Treatment How to Access Health Informa tion Online using Patient Portal and [employer] Indication:Nonsmoker Start:13-Nov-2020 Instruction Type:Patient Education How to access health informa tion online Indication:Nonsmoker Start:14-Aug-2020 Instruction Type:Patient Education How to access health informa tion online - Detail Indication:Nonsmoker Start:14-Aug-2020 Instruction Type:Patient Education Patient Instructions Indication:History of atrial fibrillation Start:14-Aug-2020 Instruction Type:Provider Instructions for Treatment How to access health informa tion online Indication:BMI 37.0-37.9, adult Start:02-Apr-2020 Instruction Type:Patient Education How to access health informa tion online - Detail Indication:BMI 37.0-37.9, adult Start:02-Apr-2020 Instruction Type:Patient Education Patient Instructions Indication:BMI 37.0-37.9, adult Start:02-Apr-2020 Instruction Type:Provider Instructions for Treatment How to access health informa tion online Indication:Nonsmoker Start:12-Feb-2020 Instruction Type:Patient Education How to access health informa tion online - Detail Indication:Nonsmoker Start:12-Feb-2020 Instruction Type:Patient Education Patient Instructions Indication:Nonsmoker Start:12-Feb-2020 Instruction Type:Provider Instructions for Treatment How to access health informa tion online Indication:BMI 37.0-37.9, adult Start:05-Nov-2019 Instruction Type:Patient Education How to access health informa tion online - Detail Indication:BMI 37.0-37.9, adult Start:05-Nov-2019 Instruction Type:Patient Education Patient Instructions Indication:BMI 37.0-37.9, adult Start:05-Nov-2019 Instruction Type:Provider Instructions for Treatment How to access health informa tion online Indication:Nonsmoker Start:13-Aug-2018 Instruction Type:Patient Education How to access health informa tion online - Detail Indication:Nonsmoker Start:13-Aug-2018 Instruction Type:Patient Education Patient Instructions Indication:Nonsmoker Start:13-Aug-2018 Instruction Type:Provider Instructions for Treatment How to access health informa tion online Indication:Nonsmoker Start:06-Aug-2018 Instruction Type:Patient Education How to access health informa tion online - Detail Indication:Nonsmoker Start:06-Aug-2018 Instruction Type:Patient Education Patient Instructions Indication:Nonsmoker Start:06-Aug-2018 Instruction Type:Provider Instructions for Treatment How to access health informa tion online Indication:Sinusitis, acute Start:13-Apr-2018 Instruction Type:Patient Education How to access health informa tion online - Detail Indication:Sinusitis, acute Start:13-Apr-2018 Instruction Type:Patient Education Patient Instructions Indication:Sinusitis, acute Start:13-Apr-2018 Instruction Type:Provider Instructions for Treatment How to access health informa tion online Indication:BMI 35.0-35.9,adult Start:07-Dec-2017 Instruction Type:Patient Education How to access health informa tion online - Detail Indication:BMI 35.0-35.9,adult Start:07-Dec-2017 Instruction Type:Patient Education Patient Instructions Indication:Sore throat Start:07-Dec-2017 Instruction Type:Provider Instructions for Treatment DISCONTINUED - LIPID PANEL ( [id number]) Indication:Mixed Hyperlipidemia Start:25-Jul-2017 Instruction Type:Patient Education DISCONTINUED - HEPATIC FUNCT ION PANEL ([id number]) Indication:Mixed Hyperlipidemia Start:25-Jul-2017 Instruction Type:Patient Education How to access health informa tion online Indication:Hypertension Start:25-Jul-2017 Instruction Type:Patient Education How to access health informa tion online - Detail Indication:Hypertension Start:25-Jul-2017 Instruction Type:Patient Education Patient Instructions Indication:Hypertension Start:25-Jul-2017 Instruction Type:Provider Instructions for Treatment How to access health informa tion online Indication:BMI 34.0-34.9,adult Start:13-Sep-2016 Instruction Type:Patient Education How to access health informa tion online - Detail Indication:BMI 34.0-34.9,adult Start:13-Sep-2016 Instruction Type:Patient Education Patient Instructions Indication:BMI 34.0-34.9,adult Start:13-Sep-2016 Instruction Type:Provider Instructions for Treatment Patient Instructions Indication:Squamous cell carcinoma, face Start:27-Jun-2016 Instruction Type:Provider Instructions for Treatment Patient Instructions Indication:Flank pain Start:26-Oct-2015 Instruction Type:Provider Instructions for Treatment Patient Instructions Indication:Acute pharyngitis Start:01-Sep-2014 Instruction Type:Provider Instructions for Treatment How to access health informa tion online Indication:Acute pharyngitis Start:01-Sep-2014 Instruction Type:Patient Education How to access health informa tion online - Detail Indication:Acute pharyngitis Start:01-Sep-2014 Instruction Type:Patient Education Patient Instructions Indication:Acute pharyngitis Start:01-Sep-2014 Instruction Type:Provider Instructions for Treatment Patient Instructions Indication:Allergic Rhinitis Start:07-Jan-2014 Instruction Type:Provider Instructions for Treatment Patient Instructions Indication:Hyperglyceridemia Start:07-Jan-2014 Instruction Type:Provider Instructions for Treatment obesity counseling Indication:BMI 34.0-34.9,adult Start:24-Jun-2013 Instruction Type:Provider Instructions for Treatment Patient Instructions Indication:Need for prophylactic vaccination and inoculation against influenza Start:24-Jun-2013 Instruction Type:Provider Instructions for Treatment Patient Instructions Indication:Hypertension Start:26-Oct-2012 Instruction Type:Provider Instructions for Treatment patient instrucitons: stop h yzaar, start new rate limiting step and bp control rx at pharm Indication:Atrial fibrillation Start:07-May-2012 Instruction Type:Provider Instructions for Treatment [facility]; [facility] Work Phone: Instructions* Name Dates Details Patient Instructions Indication:Nonsmoker Start:23-Jun-2023 Instruction Type:Provider Instructions for Treatment How to Access Health Informa tion Online using Patient Portal and [employer] Indication:Nonsmoker Start:23-Jun-2023 Instruction Type:Patient Education Patient Instructions Indication:Class 2 obesity due to excess calories without serious comorbidity with body mass index (BMI) of 38.0 to 38.9 in adult Start:20-Feb-2023 Instruction Type:Provider Instructions for Treatment How to Access Health Informa tion Online using Patient Portal and [employer] Apps Indication:Class 2 obesity due to excess calories without serious comorbidity with body mass index (BMI) of 38.0 to 38.9 in adult Start:20-Feb-2023 Instruction Type:Patient Education How to Access Health Informa tion Online using Patient Portal and [employer] Apps Indication:Nonsmoker Start:22-Aug-2022 Instruction Type:Patient Education Patient Instructions Indication:Nonsmoker Start:22-Aug-2022 Instruction Type:Provider Instructions for Treatment Patient Instructions Indication:BMI 37.0-37.9, adult Start:31-Jan-2022 Instruction Type:Provider Instructions for Treatment How to Access Health Informa tion Online using Patient Portal and [email or web address] Apps Indication:BMI 37.0-37.9, adult Start:31-Jan-2022 Instruction Type:Patient Education Patient Instructions Indication:Nonsmoker Start:25-Aug-2021 Instruction Type:Provider Instructions for Treatment How to Access Health Informa tion Online using Patient Portal and [email or web address] Apps Indication:Nonsmoker Start:25-Aug-2021 Instruction Type:Patient Education Patient Instructions Indication:BMI 37.0-37.9, adult Start:26-May-2021 Instruction Type:Provider Instructions for Treatment How to Access Health Informa tion Online using Patient Portal and [employer] Apps Indication:BMI 37.0-37.9, adult Start:26-May-2021 Instruction Type:Patient Education Patient Instructions Indication:BMI 37.0-37.9, adult Start:11-May-2021 Instruction Type:Provider Instructions for Treatment How to Access Health Informa tion Online using Patient Portal and [employer] Apps Indication:BMI 37.0-37.9, adult Start:11-May-2021 Instruction Type:Patient Education How to Access Health Informa tion Online using Patient Portal and [employer] Apps Indication:Nonsmoker Start:02-Mar-2021 Instruction Type:Patient Education Patient Instructions Indication:Nonsmoker Start:02-Mar-2021 Instruction Type:Provider Instructions for Treatment Patient Instructions Indication:Nonsmoker Start:23-Dec-2020 Instruction Type:Provider Instructions for Treatment How to Access Health Informa tion Online using Patient Portal and [employer] Apps Indication:Nonsmoker Start:23-Dec-2020 Instruction Type:Patient Education Patient Instructions Indication:Nonsmoker Start:13-Nov-2020 Instruction Type:Provider Instructions for Treatment How to Access Health Informa tion Online using Patient Portal and [employer] Apps Indication:Nonsmoker Start:13-Nov-2020 Instruction Type:Patient Education How to access health informa tion online Indication:Nonsmoker Start:14-Aug-2020 Instruction Type:Patient Education How to access health informa tion online - Detail Indication:Nonsmoker Start:14-Aug-2020 Instruction Type:Patient Education Patient Instructions Indication:History of atrial fibrillation Start:14-Aug-2020 Instruction Type:Provider Instructions for Treatment How to access health informa tion online Indication:BMI 37.0-37.9, adult Start:02-Apr-2020 Instruction Type:Patient Education How to access health informa tion online - Detail Indication:BMI 37.0-37.9, adult Start:02-Apr-2020 Instruction Type:Patient Education Patient Instructions Indication:BMI 37.0-37.9, adult Start:02-Apr-2020 Instruction Type:Provider Instructions for Treatment How to access health informa tion online Indication:Nonsmoker Start:12-Feb-2020 Instruction Type:Patient Education How to access health informa tion online - Detail Indication:Nonsmoker Start:12-Feb-2020 Instruction Type:Patient Education Patient Instructions Indication:Nonsmoker Start:12-Feb-2020 Instruction Type:Provider Instructions for Treatment How to access health informa tion online Indication:BMI 37.0-37.9, adult Start:05-Nov-2019 Instruction Type:Patient Education How to access health informa tion online - Detail Indication:BMI 37.0-37.9, adult Start:05-Nov-2019 Instruction Type:Patient Education Patient Instructions Indication:BMI 37.0-37.9, adult Start:05-Nov-2019 Instruction Type:Provider Instructions for Treatment How to access health informa tion online Indication:Nonsmoker Start:13-Aug-2018 Instruction Type:Patient Education How to access health informa tion online - Detail Indication:Nonsmoker Start:13-Aug-2018 Instruction Type:Patient Education Patient Instructions Indication:Nonsmoker Start:13-Aug-2018 Instruction Type:Provider Instructions for Treatment How to access health informa tion online Indication:Nonsmoker Start:06-Aug-2018 Instruction Type:Patient Education How to access health informa tion online - Detail Indication:Nonsmoker Start:06-Aug-2018 Instruction Type:Patient Education Patient Instructions Indication:Nonsmoker Start:06-Aug-2018 Instruction Type:Provider Instructions for Treatment How to access health informa tion online Indication:Sinusitis, acute Start:13-Apr-2018 Instruction Type:Patient Education How to access health informa tion online - Detail Indication:Sinusitis, acute Start:13-Apr-2018 Instruction Type:Patient Education Patient Instructions Indication:Sinusitis, acute Start:13-Apr-2018 Instruction Type:Provider Instructions for Treatment How to access health informa tion online Indication:BMI 35.0-35.9,adult Start:07-Dec-2017 Instruction Type:Patient Education How to access health informa tion online - Detail Indication:BMI 35.0-35.9,adult Start:07-Dec-2017 Instruction Type:Patient Education Patient Instructions Indication:Sore throat Start:07-Dec-2017 Instruction Type:Provider Instructions for Treatment DISCONTINUED - LIPID PANEL ( 79454) Indication:Mixed Hyperlipidemia Start:25-Jul-2017 Instruction Type:Patient Education DISCONTINUED - HEPATIC FUNCT ION PANEL (79041) Indication:Mixed Hyperlipidemia Start:25-Jul-2017 Instruction Type:Patient Education How to access health informa [employer] online Indication:Hypertension Start:25-Jul-2017 Instruction Type:Patient Education How to access health informa tion online - Detail Indication:Hypertension Start:25-Jul-2017 Instruction Type:Patient Education Patient Instructions Indication:Hypertension Start:25-Jul-2017 Instruction Type:Provider Instructions for Treatment How to access health informa [employer] online Indication:BMI 34.0-34.9,adult Start:13-Sep-2016 Instruction Type:Patient Education How to access health informa tion online - Detail Indication:BMI 34.0-34.9,adult Start:13-Sep-2016 Instruction Type:Patient Education Patient Instructions Indication:BMI 34.0-34.9,adult Start:13-Sep-2016 Instruction Type:Provider Instructions for Treatment Patient Instructions Indication:Squamous cell carcinoma, face Start:27-Jun-2016 Instruction Type:Provider Instructions for Treatment Patient Instructions Indication:Flank pain Start:26-Oct-2015 Instruction Type:Provider Instructions for Treatment Patient Instructions Indication:Acute pharyngitis Start:01-Sep-2014 Instruction Type:Provider Instructions for Treatment How to access health informa tion online Indication:Acute pharyngitis Start:01-Sep-2014 Instruction Type:Patient Education How to access health informa tion online - Detail Indication:Acute pharyngitis Start:01-Sep-2014 Instruction Type:Patient Education Patient Instructions Indication:Acute pharyngitis Start:01-Sep-2014 Instruction Type:Provider Instructions for Treatment Patient Instructions Indication:Allergic Rhinitis Start:07-Jan-2014 Instruction Type:Provider Instructions for Treatment Patient Instructions Indication:Hyperglyceridemia Start:07-Jan-2014 Instruction Type:Provider Instructions for Treatment obesity counseling Indication:BMI 34.0-34.9,adult Start:24-Jun-2013 Instruction Type:Provider Instructions for Treatment Patient Instructions Indication:Need for prophylactic vaccination and inoculation against influenza Start:24-Jun-2013 Instruction Type:Provider Instructions for Treatment Patient Instructions Indication:Hypertension Start:26-Oct-2012 Instruction Type:Provider Instructions for Treatment patient instrucitons: stop h yzaar, start new rate limiting step and bp control rx at pharm Indication:Atrial fibrillation Start:07-May-2012 Instruction Type:Provider Instructions for Treatment [facility] Work Phone: Instructions* Name Dates Details Patient Instructions Indication:Nonsmoker Start:23-Jun-2023 Instruction Type:Provider Instructions for Treatment How to Access Health Informa tion Online using Patient Portal and [employer] Apps Indication:Nonsmoker Start:23-Jun-2023 Instruction Type:Patient Education Patient Instructions Indication:Class 2 obesity due to excess calories without serious comorbidity with body mass index (BMI) of 38.0 to 38.9 in adult Start:20-Feb-2023 Instruction Type:Provider Instructions for Treatment How to Access Health Informa tion Online using Patient Portal and [employer] Apps Indication:Class 2 obesity due to excess calories without serious comorbidity with body mass index (BMI) of 38.0 to 38.9 in adult Start:20-Feb-2023 Instruction Type:Patient Education How to Access Health Informa tion Online using Patient Portal and [employer] Apps Indication:Nonsmoker Start:22-Aug-2022 Instruction Type:Patient Education Patient Instructions Indication:Nonsmoker Start:22-Aug-2022 Instruction Type:Provider Instructions for Treatment Patient Instructions Indication:BMI 37.0-37.9, adult Start:31-Jan-2022 Instruction Type:Provider Instructions for Treatment How to Access Health Informa tion Online using Patient Portal and [employer] Apps Indication:BMI 37.0-37.9, adult Start:31-Jan-2022 Instruction Type:Patient Education Patient Instructions Indication:Nonsmoker Start:25-Aug-2021 Instruction Type:Provider Instructions for Treatment How to Access Health Informa tion Online using Patient Portal and [employer] Apps Indication:Nonsmoker Start:25-Aug-2021 Instruction Type:Patient Education Patient Instructions Indication:BMI 37.0-37.9, adult Start:26-May-2021 Instruction Type:Provider Instructions for Treatment How to Access Health Informa tion Online using Patient Portal and [employer] Apps Indication:BMI 37.0-37.9, adult Start:26-May-2021 Instruction Type:Patient Education Patient Instructions Indication:BMI 37.0-37.9, adult Start:11-May-2021 Instruction Type:Provider Instructions for Treatment How to Access Health Informa tion Online using Patient Portal and [employer] Apps Indication:BMI 37.0-37.9, adult Start:11-May-2021 Instruction Type:Patient Education How to Access Health Informa tion Online using Patient Portal and [employer] Apps Indication:Nonsmoker Start:02-Mar-2021 Instruction Type:Patient Education Patient Instructions Indication:Nonsmoker Start:02-Mar-2021 Instruction Type:Provider Instructions for Treatment Patient Instructions Indication:Nonsmoker Start:23-Dec-2020 Instruction Type:Provider Instructions for Treatment How to Access Health Informa tion Online using Patient Portal and [employer] Apps Indication:Nonsmoker Start:23-Dec-2020 Instruction Type:Patient Education Patient Instructions Indication:Nonsmoker Start:13-Nov-2020 Instruction Type:Provider Instructions for Treatment How to Access Health Informa tion Online using Patient Portal and [employer] Apps Indication:Nonsmoker Start:13-Nov-2020 Instruction Type:Patient Education How to access health informa tion online Indication:Nonsmoker Start:14-Aug-2020 Instruction Type:Patient Education How to access health informa tion online - Detail Indication:Nonsmoker Start:14-Aug-2020 Instruction Type:Patient Education Patient Instructions Indication:History of atrial fibrillation Start:14-Aug-2020 Instruction Type:Provider Instructions for Treatment How to access health informa tion online Indication:BMI 37.0-37.9, adult Start:02-Apr-2020 Instruction Type:Patient Education How to access health informa tion online - Detail Indication:BMI 37.0-37.9, adult Start:02-Apr-2020 Instruction Type:Patient Education Patient Instructions Indication:BMI 37.0-37.9, adult Start:02-Apr-2020 Instruction Type:Provider Instructions for Treatment How to access health informa tion online Indication:Nonsmoker Start:12-Feb-2020 Instruction Type:Patient Education How to access health informa tion online - Detail Indication:Nonsmoker Start:12-Feb-2020 Instruction Type:Patient Education Patient Instructions Indication:Nonsmoker Start:12-Feb-2020 Instruction Type:Provider Instructions for Treatment How to access health informa tion online Indication:BMI 37.0-37.9, adult Start:05-Nov-2019 Instruction Type:Patient Education How to access health informa tion online - Detail Indication:BMI 37.0-37.9, adult Start:05-Nov-2019 Instruction Type:Patient Education Patient Instructions Indication:BMI 37.0-37.9, adult Start:05-Nov-2019 Instruction Type:Provider Instructions for Treatment How to access health informa tion online Indication:Nonsmoker Start:13-Aug-2018 Instruction Type:Patient Education How to access health informa tion online - Detail Indication:Nonsmoker Start:13-Aug-2018 Instruction Type:Patient Education Patient Instructions Indication:Nonsmoker Start:13-Aug-2018 Instruction Type:Provider Instructions for Treatment How to access health informa tion online Indication:Nonsmoker Start:06-Aug-2018 Instruction Type:Patient Education How to access health informa tion online - Detail Indication:Nonsmoker Start:06-Aug-2018 Instruction Type:Patient Education Patient Instructions Indication:Nonsmoker Start:06-Aug-2018 Instruction Type:Provider Instructions for Treatment How to access health informa tion online Indication:Sinusitis, acute Start:13-Apr-2018 Instruction Type:Patient Education How to access health informa tion online - Detail Indication:Sinusitis, acute Start:13-Apr-2018 Instruction Type:Patient Education Patient Instructions Indication:Sinusitis, acute Start:13-Apr-2018 Instruction Type:Provider Instructions for Treatment How to access health informa tion online Indication:BMI 35.0-35.9,adult Start:07-Dec-2017 Instruction Type:Patient Education How to access health informa tion online - Detail Indication:BMI 35.0-35.9,adult Start:07-Dec-2017 Instruction Type:Patient Education Patient Instructions Indication:Sore throat Start:07-Dec-2017 Instruction Type:Provider Instructions for Treatment DISCONTINUED - LIPID PANEL ( [id number]) Indication:Mixed Hyperlipidemia Start:25-Jul-2017 Instruction Type:Patient Education DISCONTINUED - HEPATIC FUNCT ION PANEL (01841) Indication:Mixed Hyperlipidemia Start:25-Jul-2017 Instruction Type:Patient Education How to access health informa tion online Indication:Hypertension Start:25-Jul-2017 Instruction Type:Patient Education How to access health informa tion online - Detail Indication:Hypertension Start:25-Jul-2017 Instruction Type:Patient Education Patient Instructions Indication:Hypertension Start:25-Jul-2017 Instruction Type:Provider Instructions for Treatment How to access health informa tion online Indication:BMI 34.0-34.9,adult Start:13-Sep-2016 Instruction Type:Patient Education How to access health informa tion online - Detail Indication:BMI 34.0-34.9,adult Start:13-Sep-2016 Instruction Type:Patient Education Patient Instructions Indication:BMI 34.0-34.9,adult Start:13-Sep-2016 Instruction Type:Provider Instructions for Treatment Patient Instructions Indication:Squamous cell carcinoma, face Start:27-Jun-2016 Instruction Type:Provider Instructions for Treatment Patient Instructions Indication:Flank pain Start:26-Oct-2015 Instruction Type:Provider Instructions for Treatment Patient Instructions Indication:Acute pharyngitis Start:01-Sep-2014 Instruction Type:Provider Instructions for Treatment How to access [employer] Indication:Acute pharyngitis Start:01-Sep-2014 Instruction Type:Patient Education How to access health informa tion online - Detail Indication:Acute pharyngitis Start:01-Sep-2014 Instruction Type:Patient Education Patient Instructions Indication:Acute pharyngitis Start:01-Sep-2014 Instruction Type:Provider Instructions for Treatment Patient Instructions Indication:Allergic Rhinitis Start:07-Jan-2014 Instruction Type:Provider Instructions for Treatment Patient Instructions Indication:Hyperglyceridemia Start:07-Jan-2014 Instruction Type:Provider Instructions for Treatment obesity counseling Indication:BMI 34.0-34.9,adult Start:24-Jun-2013 Instruction Type:Provider Instructions for Treatment Patient Instructions Indication:Need for prophylactic vaccination and inoculation against influenza Start:24-Jun-2013 Instruction Type:Provider Instructions for Treatment Patient Instructions Indication:Hypertension Start:26-Oct-2012 Instruction Type:Provider Instructions for Treatment patient instrucitons: stop h yzaar, start new rate limiting step and bp control rx at pharm Indication:Atrial fibrillation Start:07-May-2012 Instruction Type:Provider Instructions for Treatment [facility] Work Phone: progress note Author Abdias Ortiz [facility] Note Date/Time June 27, 2025 1 0:33am [facility] [address] [place] [address]. [address] [place] [address] OFFICE VISIT Date of Service: 06/27/25 MR#: [id number] Acct: [id number] Name: KAMRYN MUÑOZ Rep #: [id number] : 1945 Provider: TIARRA Dee Age/Sex: 79/F [place] [facility] [place] Signed HPI HPI History of Present Illness Details: Kamryn Muñoz is a 79-year-old female who presents to office today for follow-up for monitoring of her cardiovascular health. Patient has a history of atrial fibrillation, hypertension, hyperlipidemia. Patient presented with shortness ofbreath and underwent echocardiogram in September 2021 that demonstrated preserved ejection fraction. Patient had stress test demonstrating evidence of basal to mid anterior ischemia that then resulted in undergoing cardiac catheterization. Cardiac catheterization 09/2021 demonstrated normal coronary arteries. Patient underwent repeat echocardiogram in September 2023 that demonstrated preserved ejection fraction. She was anticoagulated and subsequently underwent DC cardioversion 10/03/2023. Upon presentation today, patient reports noticing significant hair loss over summer that had led to her panicking. She saw a bias binding cutter and PCP for this was diagnosed with anxiety. Her HR was noted to be 100 at rest and she was started on Zoloft. She noticed skipping beat when checking her pulse. She contacted her PCP and was concerned her palpitations and jerking were a side effects from her Zoloft. She discontinued this and made an appt wiht us. Upon making these appointments (prior to being seen), she felt relieved and her symptoms have decreased. She has stopped her Zoloft 2 days ago. She reports noticing an increase in her anxiety/stress with her thyroid diagnosis (large andapproaching aorta). She notes her heart pounding and can hear her heart beat more-so at night. Her dyspnea on exertion seems worse; however, she reports she has decreased her activity levels due to life events. Further ROS below. Intake Vital Signs 02/14/25 13:27 06/27/25 08:14 06/27/25 09:54 06/27/25 09:56 Height 5 ft 5 in 5 ft 5 in Weight: 228 lb BMI 37.9 BP 148/71 H 120/72 149/81 H Blood Pressure Location Lt radial Lt brachial Lt brachial Position Sitting Sitting Sitting Respiration 16 20 H Pulse 87 Pulse Source Monitor Pulse Oximetry (%) 97 Oxygen Delivery Method room air Intake Visit Reasons: Atrial fibrillation Tip Stretcher Required: No Accompanied by: Self Is patient in pain?: No Allergies Penicillins Allergy (Verified 06/27/25 09:50) Unknown pravastatin (From Pravachol) Allergy (Verified 06/27/25 09:50) Unknown simvastatin (From Zocor) Allergy (Verified 06/27/25 09:50) Unknown atorvastatin (From Lipitor) Adverse Reaction (Verified 06/27/25 09:50) Unknown Medications ?Medication ?Instructions ?Recorded ?Confirmed ?Type calcium 600 mg (as 1 cap PO DAILY 03/16/2206/11 History carbonate)-vitamin D3 10 mcg (400 unit) capsule cranberry 500 mg capsule 500 mg PO DAILY 03/16/22 History lactobacillus combination no.4 3 3,000 mmu cells PO DA MEGAN 03/16/22 06/27/25 History billion cell capsule (Probiotic) multivitamin 1 tab PO DAILY 03/16/2206/11 History pitavastatin calcium 1 mg tablet 1 mg PO DAILY 2 06/27/25 History (Livalo) apixaban 5 mg tablet (Eliquis) 5 mg PO BID #180 tabs 0 11/27/24 06/27/25 Rx amlodipine 5 mg tablet 5 mg PO DAILY #90 tabs 12/1606/27/25 Rx metoprolol succinate 50 mg 50 mg PO DAILY #90 tabs 06/27/25 Rx tablet,extended release 24 hr Ejection fraction %: 65 Have you fallen in the past year?: No Nurse's Note: Pt would like a recommendation for a PCP. Pt states that her metoprolol or her amlodipine was changed from her pharmacy asin one used to be round and now it's oblong and it has a split in it. [facility] Medical History Thyroid nodule Wears glasses Cluster headache Vertigo History of pain when walking History of echocardiogram History of stress test Hypertension Cardiology follow-up encounter History of irregular heartbeat Essential hypertension Cancer Alcohol use Thyroid disease Arthritis Back pain Gastric reflux History of IBS Former smoker Shortness of breath on exertion History of skin cancer Arthritis Hyperlipidemia Paroxysmal atrial fibrillation Surgical History History of cardiac catheterization History of hysteroscopy Hx of right cataract extraction Hx of left cataract extraction History of open reduction and internal fixation (ORIF) procedure Hx laparoscopic cholecystectomy History of bilateral breast reduction surgery History of left heart catheterization (10/11/21) H/O bilateral hip replacements H/O partial thyroidectomy Family History Father aortic aneurysm Heart disease Sister Seizures Brother coronary stent Hearing loss Heart disease Diabetes Mother Myocardial infarction Anesthesia complication Hearing loss Heart disease Social History household members: none current occupational status: retired Smoking Status: Former smoker alcohol intake: current alcohol intake frequency: a few times a month Alcohol type: wine substance use type: does not use caffeine: Yes Type: carbonated beverages what type of physical activity do you participate in: walking frequency: 1-2 times per week duration: 15-30 minutes/day seatbelt use: always do you feel safe at home: Yes ROS Const Const: Negative for fatigue, weakness or headache(s) Eyes Eyes: Negative for change in vision ENT ENT: Negative for headache(s), dizziness, Nosebleed/epistaxis or balance problems Cardio Chest Pain: No Palpitations: Yes feels like its: skipping Edema: Left Resp Respiratory: Positive for SOB with activity; Negative for SOB at rest or SOB orthopnea\SOB lying down GI GI: Negative nausea, vomiting, heartburn or bright, red blood in stools : Negative for hematuria Musc Musc: Negative for balance problems Neuro Neuro: Negative for dizziness, lightheadedness, syncope, headache(s) or weakness Endo Endo: Negative for fatigue Cardiology Exam Const Appearance: cooperative, comfortable, no acute distress and well developed; Negative diaphoretic or ill appearing Nutritional Appearance: obese Orientation: alert and oriented x3 Ambulating without assistive device Head Head: normal to inspection, normocephalic and atraumatic Ears: hearing grossly normal bilaterally Nose: external nose normal and Negative epistaxis Face and Sinus: face symmetric Eyes General: appearance normal, both eyes and all related structures Eyelids: eyelids normal Conjunctivae: conjunctivae normal; Negative scleral icterus EOM: EOM intact bilaterally Neck Neck: no JVD Carotids: normal carotid upstroke; Negative bruit Neck Mass: Negative Neck mass Chest Chest inspection: normal respiratory effort; Negative respiratory distress, audible wheezes or tachypneic Auscultation: Bilateral: Clear to Auscultation Cardio Rate: regular rate Rhythm: regular rhythm Heart sounds: S1 normal and S2 normal; Negative rub, gallop or murmur GI GI: obese Neuro General: patient alert, patient awake, patient oriented x3 and moves all extremities Skin Skin: no rashes or lesions noted Extremities Pulses: Normal: Right Posterior Tibial Pulse, Left Posterior Tibial Pulse, RightRadial Pulse and Left Radial Pulse Lower Extremity Edema: None: Bilateral Psych Psychological: normal affect Supplemental Info Supplemental Information Echocardiogram 09/26/23 Interpretation Summary Normal LV size. Left ventricular systolic function is normal. The estimated ejection fraction is 65 %. Mild concentric left ventricular hypertrophy. Pulmonary artery systolic pressure is 30 mmHg. Echocardiogram 09/30/2021: Normal LV size. Left ventricular systolic function is normal. The estimated ejection fraction is 60 %. Stage 1 diastolic dysfunction. Mild (1+) eccentric aortic valve insufficiency. Contrast injection was performed. Exercise myocardial perfusion stress test 09/30/2021: Abnormal exercise myocardial perfusion stress test at a low workload with basal and mid anterior ischemia. Preserved ejection fraction. Cardiac cath 09/13/2021: Normal coronary arteries Normal LV size, wall motion,and systolic function CORONARY ANGIOGRAPHY DOMINANCE: Co- Dominant LEFT HEART ASSESSMENT Normal LV wall motion Normal Left Ventricular systolic function LEFT MAIN: Angiographically normal LEFT ANTERIOR DESCENDING ARTERY: No significant disease noted CIRCUMFLEX ARTERY: Mild luminal irregularities RIGHT CORONARY ARTERY: Angiographically normal Cardiac cath 2017: 1. Normal left main coronary artery. 2. Left anterior descending artery with no high-grade stenosis. 3. Left circumflex artery, which is nondominant with no significant stenosis. 4. Right coronary artery, which is dominant with no significant stenosis. 5. Preserved ejection fraction. Chest CTA 08/28/23 FINDINGS: Normal enhancement of the main pulmonary artery and right and left pulmonary arteries. Normal enhancement of the bilateral peripheral pulmonary arteries. There is no demonstrated pulmonary embolism. Normal thoracic aorta and visualized great vessels. There is no demonstrated aortic dissection. Normal heart and pericardium. 24 Hour Holter Monitor 09/05/23 Average HR was 89 bpm in AFib; Min HR was 62 bpm in AFib; Max HR was 148 bpm in AFib. There were a total of 27 ventricular ectopic beats. No runs noted. The longest R-R interval was 1.5 seconds. There were a total of [id number] beats of AFIB comprising 100% of the scan. The patient kept a 24 hour diary. No symptoms were recorded. Diagnostics: Electrocardiogram Echocardiogram Stress Test Stress Test Nuclear Medicine Cardiac Catheterization Chest X-Ray Chest CTA Abdomen/Pelvis CT Venous Doppler Study Past Visits: Cardiology Visit 06/27/25 Assessment and Plan Assessment and Plan (1) Paroxysmal atrial fibrillation: Status: Chronic Plan: Patient has a history of atrial fibrillation s/p DCCV. EKG today demonstrates normal sinus rhythm at a rate of 83 bpm. [id number] score of 4. Plan: Recommend patient continue apixaban 5mg BID and metoprolol. (2) Essential hypertension: Status: Acute Plan: BP initially elevated in office; however, improved to 120/72 upon repeat check at the end of visit. Plan: Recommend patient monitor and notify our office with and persistently elevatedor low readings. (3) Premature ventricular contractions: Status: Acute Plan: Patient notices worsening symptoms with increased anxiety. She did not tolerate Zoloft recently prescribed by PCP. Plan: Will obtain a 48hour holter monitor. Patient is planning to discuss anxiety management with PCP. She will continue Metoprolol daily (4) Hyperlipidemia: Status: Chronic Qualifiers: Hyperlipidemia type: mixed hyperlipidemia Qualified Code(s): E78.2 - Mixed hyperlipidemia Plan: Recommend she continue her statin. This is monitored by PCP. Orders: Orders 12 Lead EKG performed by [facility] [place] 06/27/25 I48.0 - Paroxysmal atrial fibrillation, R00.0 - Tachycardia, unspecified Cardiac Holter Monitor, 48 Hrs 06/27/25 R00.2 - Palpitations Referrals Internal Medicine F41.9 - Anxiety disorder, unspecified, I10 - Essential (primary) hypertension Plan 1. Will obtain a 48-hour holter monitor. Patient will follow-up in 4 months or sooner, if needed. Thank you for allowing me to participate in the care of your patient. Please don't hesitate to call if any issues arise. This note was generated using a voice recognition system and there may be incorrect words, spelling, or punctuation that were not noted when reviewing theoffice note prior to saving. Portions of this documentation were copied and pasted from previous office visitnotes to provide a cohesive continuity of the history. The note has been reviewed, edited, and updated, as necessary. Plan Details Follow Up: 06/27/25 (please obtain labs from PCP) 06/27/25 (keep as is with [facility]) Coding Level of Care Code Off vis,est,level 4 Diagnoses Paroxysmal atrial fibrillation I48.0 Essential hypertension I10 Premature ventricular contractions I49.3 Mixed hyperlipidemia E78.2 Hyperlipidemia type: mixed hyperlipidemia Coding Level of Care Code Off vis,est,level 4 Diagnoses Paroxysmal atrial fibrillation I48.0 Essential hypertension I10 Premature ventricular contractions I49.3 Mixed hyperlipidemia E78.2 Hyperlipidemia type: mixed hyperlipidemia Clinical Quality Measures Falls Risk Screening/Assistive Devices Have you fallen in the past year?: No Cardiac Ejection fraction %: 65 07/04/25 0954 <Electronically signed by Abdias MAYEN> Date _ Abdias MAYEN 07/04/25 1544<Electronically signed by Kp Lopez MD> Cosigner Signature: Date (if applicable) Kp Lopez MD CC: ~ [facility] [employer] Work Phone: Reason for referral (narrative)No reason for referral information availableWTr[facility] Work Phone: Family History No Family History Records FoundUnknown Family Member Name Dates Details Family Members In General Comments:Cancer, Diabetes, E motional problems, HBP, high cholesterol, seizures, thyroid, ulcer disease Status:Active Unknown Family Member Name Dates Details Family Members In General Comments:Cancer, Diabetes, E motional problems, HBP, high cholesterol, seizures, thyroid, ulcer disease Status:Active Unknown Family Member Name Dates Details Family Members In General Comments:Cancer, Diabetes, E motional problems, HBP, high cholesterol, seizures, thyroid, ulcer disease Status:Active Unknown Family Member Name Dates Details Family Members In General Comments:Cancer, Diabetes, E motional problems, HBP, high cholesterol, seizures, thyroid, ulcer disease Status:Active Unknown Family Member Name Dates Details Family Members In General Comments:Cancer, Diabetes, E motional problems, HBP, high cholesterol, seizures, thyroid, ulcer disease Status:Active Unknown Family Member Name Dates Details Family Members In General Comments:Cancer, Diabetes, E motional problems, HBP, high cholesterol, seizures, thyroid, ulcer disease Status:Active Unknown Family Member Name Dates Details Family Members In General Comments:Cancer, Diabetes, E motional problems, HBP, high cholesterol, seizures, thyroid, ulcer disease Status:Active Unknown Family Member Name Dates Details Family Members In General Comments:Cancer, Diabetes, E motional problems, HBP, high cholesterol, seizures, thyroid, ulcer disease Status:Active Unknown Family Member Name Dates Details Family Members In General Comments:Cancer, Diabetes, E motional problems, HBP, high cholesterol, seizures, thyroid, ulcer disease Status:Active Unknown Family Member Name Dates Details Family Members In General Comments:Cancer, Diabetes, E motional problems, HBP, high cholesterol, seizures, thyroid, ulcer disease Status:Active Unknown Family Member Name Dates Details Family Members In General Comments:Cancer, Diabetes, E motional problems, HBP, high cholesterol, seizures, thyroid, ulcer disease Status:Active Unknown Family Member Name Dates Details Family Members In General Comments:Cancer, Diabetes, E motional problems, HBP, high cholesterol, seizures, thyroid, ulcer disease Status:Active Unknown Family Member Name Dates Details Family Members In General Comments:Cancer, Diabetes, E motional problems, HBP, high cholesterol, seizures, thyroid, ulcer disease Status:Active Unknown Family Member Name Dates Details Family Members In General Comments:Cancer, Diabetes, E motional problems, HBP, high cholesterol, seizures, thyroid, ulcer disease Status:Active Unknown Family Member Name Dates Details Family Members In General Comments:Cancer, Diabetes, E motional problems, HBP, high cholesterol, seizures, thyroid, ulcer disease Status:Active Unknown Family Member Name Dates Details Family Members In General Comments:Cancer, Diabetes, E motional problems, HBP, high cholesterol, seizures, thyroid, ulcer disease Status:Active Unknown Family Member Name Dates Details Family Members In General Comments:Cancer, Diabetes, E motional problems, HBP, high cholesterol, seizures, thyroid, ulcer disease Status:Active Unknown Family Member Name Dates Details Family Members In General Comments:Cancer, Diabetes, E motional problems, HBP, high cholesterol, seizures, thyroid, ulcer disease Status:Active Unknown Family Member Name Dates Details Family Members In General Comments:Cancer, Diabetes, E motional problems, HBP, high cholesterol, seizures, thyroid, ulcer disease Status:Active Unknown Family Member Name Dates Details Family Members In General Comments:Cancer, Diabetes, E motional problems, HBP, high cholesterol, seizures, thyroid, ulcer disease Status:Active Unknown Family Member Name Dates Details Family Members In General Comments:Cancer, Diabetes, E motional problems, HBP, high cholesterol, seizures, thyroid, ulcer disease Status:Active Relationship Condition Age at Onset Recorded Date/T all father Unknown Cardiac disease Unknown sister Seizure Unknown brother Unknown Hearing loss Unknown Diabetes mellitus Unknown mother Myocardial infarction Unknown Complication of anesthesia Unknown Unknown Family Member Name Dates Details Family Members In General Comments:Cancer, Diabetes, E motional problems, HBP, high cholesterol, seizures, thyroid, ulcer disease Status:Active Unknown Family Member Name Dates Details Family Members In General Comments:Cancer, Diabetes, E motional problems, HBP, high cholesterol, seizures, thyroid, ulcer disease Status:Active Unknown Family Member Name Dates Details Family Members In General Comments:Cancer, Diabetes, E motional problems, HBP, high cholesterol, seizures, thyroid, ulcer disease Status:Active Unknown Family Member Name Dates Details Family Members In General Comments:Cancer, Diabetes, E motional problems, HBP, high cholesterol, seizures, thyroid, ulcer disease Status:Active Unknown Family Member Name Dates Details Family Members In General Comments:Cancer, Diabetes, E motional problems, HBP, high cholesterol, seizures, thyroid, ulcer disease Status:Active Unknown Family Member Name Dates Details Family Members In General Comments:Cancer, Diabetes, E motional problems, HBP, high cholesterol, seizures, thyroid, ulcer disease Status:Active Unknown Family Member Name Dates Details Family Members In General Comments:Cancer, Diabetes, E motional problems, HBP, high cholesterol, seizures, thyroid, ulcer disease Status:Active Unknown Family Member Name Dates Details Family Members In General Comments:Cancer, Diabetes, E motional problems, HBP, high cholesterol, seizures, thyroid, ulcer disease Status:Active Unknown Family Member Name Dates Details Family Members In General Comments:Cancer, Diabetes, E motional problems, HBP, high cholesterol, seizures, thyroid, ulcer disease Status:Active Unknown Family Member Name Dates Details Family Members In General Comments:Cancer, Diabetes, E motional problems, HBP, high cholesterol, seizures, thyroid, ulcer disease Status:Active Unknown Family Member Name Dates Details Family Members In General Comments:Cancer, Diabetes, E motional problems, HBP, high cholesterol, seizures, thyroid, ulcer disease Status:Active Unknown Family Member Name Dates Details Family Members In General Comments:Cancer, Diabetes, E motional problems, HBP, high cholesterol, seizures, thyroid, ulcer disease Status:Active Unknown Family Member Name Dates Details Family Members In General Comments:Cancer, Diabetes, E motional problems, HBP, high cholesterol, seizures, thyroid, ulcer disease Status:Active Unknown Family Member Name Dates Details Family Members In General Comments:Cancer, Diabetes, E motional problems, HBP, high cholesterol, seizures, thyroid, ulcer disease Status:Active Instructions Name Dates Details Sinusitis, acute : How to ac cess health information online Indication:Sinusitis, acute Sinusitis, acute : How to ac cess health information online - Detail Indication:Sinusitis, acute Sinusitis, acute : Patient I nstructions Indication:Sinusitis, acute BMI 35.0-35.9,adult : How to access health information online Indication:BMI 35.0-35.9,adult BMI 35.0-35.9,adult : How to access health information online - Detail Indication:BMI 35.0-35.9,adult Sore throat : Patient Instru ctions Indication:Sore throat Mixed Hyperlipidemia : DISCO NTINUED - LIPID PANEL (29851) Indication:Mixed Hyperlipidemia Mixed Hyperlipidemia : DISCO NTINUED - HEPATIC FUNCTION PANEL (12104) Indication:Mixed Hyperlipidemia Hypertension : How to access health information online Indication:Hypertension Hypertension : How to access health information online - Detail Indication:Hypertension Hypertension : Patient Instr uctions Indication:Hypertension BMI 34.0-34.9,adult : How to access health information online Indication:BMI 34.0-34.9,adult BMI 34.0-34.9,adult : How to access health information online - Detail Indication:BMI 34.0-34.9,adult BMI 34.0-34.9,adult : Patien t Instructions Indication:BMI 34.0-34.9,adult Squamous cell carcinoma, fac e : Patient Instructions Indication:Squamous cell carcinoma, face Flank pain : Patient Instruc tions Indication:Flank pain Acute pharyngitis : Patient Instructions Indication:Acute pharyngitis Acute pharyngitis : How to a ccess health information online Indication:Acute pharyngitis Acute pharyngitis : How to a ccess health information online - Detail Indication:Acute pharyngitis Allergic Rhinitis : Patient Instructions Indication:Allergic Rhinitis Hyperglyceridemia : Patient Instructions Indication:Hyperglyceridemia BMI 34.0-34.9,adult : obesit y counseling Indication:BMI 34.0-34.9,adult Need for prophylactic vaccin ation and inoculation against influenza : Patient Instructions Indication:Need for prophylactic vaccination and inoculation against influenza Atrial fibrillation : patien t instrucitons: stop hyzaar, start new rate limiting step and bp control rx at pharm Indication:Atrial fibrillation Name Dates Details Nonsmoker : How to access he alth information online Indication:Nonsmoker Nonsmoker : How to access he alth information online - Detail Indication:Nonsmoker Nonsmoker : Patient Instruct ions Indication:Nonsmoker Sinusitis, acute : How to ac cess health information online Indication:Sinusitis, acute Sinusitis, acute : How to ac cess health information online - Detail Indication:Sinusitis, acute Sinusitis, acute : Patient I nstructions Indication:Sinusitis, acute BMI 35.0-35.9,adult : How to access health information online Indication:BMI 35.0-35.9,adult BMI 35.0-35.9,adult : How to access health information online - Detail Indication:BMI 35.0-35.9,adult Sore throat : Patient Instru ctions Indication:Sore throat Mixed Hyperlipidemia : DISCO NTINUED - LIPID PANEL (65987) Indication:Mixed Hyperlipidemia Mixed Hyperlipidemia : DISCO NTINUED - HEPATIC FUNCTION PANEL (55873) Indication:Mixed Hyperlipidemia Hypertension : How to access health information online Indication:Hypertension Hypertension : How to access health information online - Detail Indication:Hypertension Hypertension : Patient Instr uctions Indication:Hypertension BMI 34.0-34.9,adult : How to access health information online Indication:BMI 34.0-34.9,adult BMI 34.0-34.9,adult : How to access health information online - Detail Indication:BMI 34.0-34.9,adult BMI 34.0-34.9,adult : Patien t Instructions Indication:BMI 34.0-34.9,adult Squamous cell carcinoma, fac e : Patient Instructions Indication:Squamous cell carcinoma, face Flank pain : Patient Instruc tions Indication:Flank pain Acute pharyngitis : Patient Instructions Indication:Acute pharyngitis Acute pharyngitis : How to a ccess health information online Indication:Acute pharyngitis Acute pharyngitis : How to a ccess health information online - Detail Indication:Acute pharyngitis Allergic Rhinitis : Patient Instructions Indication:Allergic Rhinitis Hyperglyceridemia : Patient Instructions Indication:Hyperglyceridemia BMI 34.0-34.9,adult : obesit y counseling Indication:BMI 34.0-34.9,adult Need for prophylactic vaccin ation and inoculation against influenza : Patient Instructions Indication:Need for prophylactic vaccination and inoculation against influenza Atrial fibrillation : patien t instrucitons: stop hyzaar, start new rate limiting step and bp control rx at pharm Indication:Atrial fibrillation Name Dates Details How to access health informa tion online Indication:Nonsmoker Start:13-Aug-2018 Instruction Type:Patient Education How to access health informa tion online - Detail Indication:Nonsmoker Start:13-Aug-2018 Instruction Type:Patient Education Patient Instructions Indication:Nonsmoker Start:13-Aug-2018 Instruction Type:Provider Instructions for Treatment How to access health informa tion online Indication:Nonsmoker Start:06-Aug-2018 Instruction Type:Patient Education How to access health informa tion online - Detail Indication:Nonsmoker Start:06-Aug-2018 Instruction Type:Patient Education Patient Instructions Indication:Nonsmoker Start:06-Aug-2018 Instruction Type:Provider Instructions for Treatment How to access health informa tion online Indication:Sinusitis, acute Start:13-Apr-2018 Instruction Type:Patient Education How to access health informa tion online - Detail Indication:Sinusitis, acute Start:13-Apr-2018 Instruction Type:Patient Education Patient Instructions Indication:Sinusitis, acute Start:13-Apr-2018 Instruction Type:Provider Instructions for Treatment How to access health informa tion online Indication:BMI 35.0-35.9,adult Start:07-Dec-2017 Instruction Type:Patient Education How to access health informa tion online - Detail Indication:BMI 35.0-35.9,adult Start:07-Dec-2017 Instruction Type:Patient Education Patient Instructions Indication:Sore throat Start:07-Dec-2017 Instruction Type:Provider Instructions for Treatment DISCONTINUED - LIPID PANEL ( [id number]) Indication:Mixed Hyperlipidemia Start:25-Jul-2017 Instruction Type:Patient Education DISCONTINUED - HEPATIC FUNCT ION PANEL (01564) Indication:Mixed Hyperlipidemia Start:25-Jul-2017 Instruction Type:Patient Education How to access health informa tion online Indication:Hypertension Start:25-Jul-2017 Instruction Type:Patient Education How to access health informa tion online - Detail Indication:Hypertension Start:25-Jul-2017 Instruction Type:Patient Education Patient Instructions Indication:Hypertension Start:25-Jul-2017 Instruction Type:Provider Instructions for Treatment How to access health informa tion online Indication:BMI 34.0-34.9,adult Start:13-Sep-2016 Instruction Type:Patient Education How to access health informa tion online - Detail Indication:BMI 34.0-34.9,adult Start:13-Sep-2016 Instruction Type:Patient Education Patient Instructions Indication:BMI 34.0-34.9,adult Start:13-Sep-2016 Instruction Type:Provider Instructions for Treatment Patient Instructions Indication:Squamous cell carcinoma, face Start:27-Jun-2016 Instruction Type:Provider Instructions for Treatment Patient Instructions Indication:Flank pain Start:26-Oct-2015 Instruction Type:Provider Instructions for Treatment Patient Instructions Indication:Acute pharyngitis Start:01-Sep-2014 Instruction Type:Provider Instructions for Treatment How to access health informa tion online Indication:Acute pharyngitis Start:01-Sep-2014 Instruction Type:Patient Education How to access health informa tion online - Detail Indication:Acute pharyngitis Start:01-Sep-2014 Instruction Type:Patient Education Patient Instructions Indication:Allergic Rhinitis Start:07-Jan-2014 Instruction Type:Provider Instructions for Treatment Patient Instructions Indication:Hyperglyceridemia Start:07-Jan-2014 Instruction Type:Provider Instructions for Treatment obesity counseling Indication:BMI 34.0-34.9,adult Start:24-Jun-2013 Instruction Type:Provider Instructions for Treatment Patient Instructions Indication:Need for prophylactic vaccination and inoculation against influenza Start:24-Jun-2013 Instruction Type:Provider Instructions for Treatment Patient Instructions Indication:Hypertension Start:26-Oct-2012 Instruction Type:Provider Instructions for Treatment patient instrucitons: stop h yzaar, start new rate limiting step and bp control rx at pharm Indication:Atrial fibrillation Start:07-May-2012 Instruction Type:Provider Instructions for Treatment Name Dates Details How to access health informa tion online Indication:Nonsmoker Start:13-Aug-2018 Instruction Type:Patient Education How to access health informa tion online - Detail Indication:Nonsmoker Start:13-Aug-2018 Instruction Type:Patient Education Patient Instructions Indication:Nonsmoker Start:13-Aug-2018 Instruction Type:Provider Instructions for Treatment How to access health informa tion online Indication:Nonsmoker Start:06-Aug-2018 Instruction Type:Patient Education How to access health informa tion online - Detail Indication:Nonsmoker Start:06-Aug-2018 Instruction Type:Patient Education Patient Instructions Indication:Nonsmoker Start:06-Aug-2018 Instruction Type:Provider Instructions for Treatment How to access health informa tion online Indication:Sinusitis, acute Start:13-Apr-2018 Instruction Type:Patient Education How to access health informa tion online - Detail Indication:Sinusitis, acute Start:13-Apr-2018 Instruction Type:Patient Education Patient Instructions Indication:Sinusitis, acute Start:13-Apr-2018 Instruction Type:Provider Instructions for Treatment How to access health informa tion online Indication:BMI 35.0-35.9,adult Start:07-Dec-2017 Instruction Type:Patient Education How to access health informa tion online - Detail Indication:BMI 35.0-35.9,adult Start:07-Dec-2017 Instruction Type:Patient Education Patient Instructions Indication:Sore throat Start:07-Dec-2017 Instruction Type:Provider Instructions for Treatment DISCONTINUED - LIPID PANEL ( [id number]) Indication:Mixed Hyperlipidemia Start:25-Jul-2017 Instruction Type:Patient Education DISCONTINUED - HEPATIC FUNCT ION PANEL (44672) Indication:Mixed Hyperlipidemia Start:25-Jul-2017 Instruction Type:Patient Education How to access health informa tion online Indication:Hypertension Start:25-Jul-2017 Instruction Type:Patient Education How to access health informa tion online - Detail Indication:Hypertension Start:25-Jul-2017 Instruction Type:Patient Education Patient Instructions Indication:Hypertension Start:25-Jul-2017 Instruction Type:Provider Instructions for Treatment How to access health informa tion online Indication:BMI 34.0-34.9,adult Start:13-Sep-2016 Instruction Type:Patient Education How to access health informa tion online - Detail Indication:BMI 34.0-34.9,adult Start:13-Sep-2016 Instruction Type:Patient Education Patient Instructions Indication:BMI 34.0-34.9,adult Start:13-Sep-2016 Instruction Type:Provider Instructions for Treatment Patient Instructions Indication:Squamous cell carcinoma, face Start:27-Jun-2016 Instruction Type:Provider Instructions for Treatment Patient Instructions Indication:Flank pain Start:26-Oct-2015 Instruction Type:Provider Instructions for Treatment Patient Instructions Indication:Acute pharyngitis Start:01-Sep-2014 Instruction Type:Provider Instructions for Treatment How to access health informa tion online Indication:Acute pharyngitis Start:01-Sep-2014 Instruction Type:Patient Education How to access health informa tion online - Detail Indication:Acute pharyngitis Start:01-Sep-2014 Instruction Type:Patient Education Patient Instructions Indication:Allergic Rhinitis Start:07-Jan-2014 Instruction Type:Provider Instructions for Treatment Patient Instructions Indication:Hyperglyceridemia Start:07-Jan-2014 Instruction Type:Provider Instructions for Treatment obesity counseling Indication:BMI 34.0-34.9,adult Start:24-Jun-2013 Instruction Type:Provider Instructions for Treatment Patient Instructions Indication:Need for prophylactic vaccination and inoculation against influenza Start:24-Jun-2013 Instruction Type:Provider Instructions for Treatment Patient Instructions Indication:Hypertension Start:26-Oct-2012 Instruction Type:Provider Instructions for Treatment patient instrucitons: stop h yzaar, start new rate limiting step and bp control rx at pharm Indication:Atrial fibrillation Start:07-May-2012 Instruction Type:Provider Instructions for Treatment Name Dates Details How to access health informa tion online Indication:BMI 37.0-37.9, adult Start:02-Apr-2020 Instruction Type:Patient Education How to access health informa tion online - Detail Indication:BMI 37.0-37.9, adult Start:02-Apr-2020 Instruction Type:Patient Education Patient Instructions Indication:BMI 37.0-37.9, adult Start:02-Apr-2020 Instruction Type:Provider Instructions for Treatment How to access health informa tion online Indication:Nonsmoker Start:12-Feb-2020 Instruction Type:Patient Education How to access health informa tion online - Detail Indication:Nonsmoker Start:12-Feb-2020 Instruction Type:Patient Education Patient Instructions Indication:Nonsmoker Start:12-Feb-2020 Instruction Type:Provider Instructions for Treatment How to access health informa tion online Indication:BMI 37.0-37.9, adult Start:05-Nov-2019 Instruction Type:Patient Education How to access health informa tion online - Detail Indication:BMI 37.0-37.9, adult Start:05-Nov-2019 Instruction Type:Patient Education Patient Instructions Indication:BMI 37.0-37.9, adult Start:05-Nov-2019 Instruction Type:Provider Instructions for Treatment How to access health informa tion online Indication:Nonsmoker Start:13-Aug-2018 Instruction Type:Patient Education How to access health informa tion online - Detail Indication:Nonsmoker Start:13-Aug-2018 Instruction Type:Patient Education Patient Instructions Indication:Nonsmoker Start:13-Aug-2018 Instruction Type:Provider Instructions for Treatment How to access health informa tion online Indication:Nonsmoker Start:06-Aug-2018 Instruction Type:Patient Education How to access health informa tion online - Detail Indication:Nonsmoker Start:06-Aug-2018 Instruction Type:Patient Education Patient Instructions Indication:Nonsmoker Start:06-Aug-2018 Instruction Type:Provider Instructions for Treatment How to access health informa tion online Indication:Sinusitis, acute Start:13-Apr-2018 Instruction Type:Patient Education How to access health informa tion online - Detail Indication:Sinusitis, acute Start:13-Apr-2018 Instruction Type:Patient Education Patient Instructions Indication:Sinusitis, acute Start:13-Apr-2018 Instruction Type:Provider Instructions for Treatment How to access health informa tion online Indication:BMI 35.0-35.9,adult Start:07-Dec-2017 Instruction Type:Patient Education How to access health informa tion online - Detail Indication:BMI 35.0-35.9,adult Start:07-Dec-2017 Instruction Type:Patient Education Patient Instructions Indication:Sore throat Start:07-Dec-2017 Instruction Type:Provider Instructions for Treatment DISCONTINUED - LIPID PANEL ( [id number]) Indication:Mixed Hyperlipidemia Start:25-Jul-2017 Instruction Type:Patient Education DISCONTINUED - HEPATIC FUNCT ION PANEL (00901) Indication:Mixed Hyperlipidemia Start:25-Jul-2017 Instruction Type:Patient Education How to access health informa tion online Indication:Hypertension Start:25-Jul-2017 Instruction Type:Patient Education How to access health informa tion online - Detail Indication:Hypertension Start:25-Jul-2017 Instruction Type:Patient Education Patient Instructions Indication:Hypertension Start:25-Jul-2017 Instruction Type:Provider Instructions for Treatment How to access health informa tion online Indication:BMI 34.0-34.9,adult Start:13-Sep-2016 Instruction Type:Patient Education How to access health informa tion online - Detail Indication:BMI 34.0-34.9,adult Start:13-Sep-2016 Instruction Type:Patient Education Patient Instructions Indication:BMI 34.0-34.9,adult Start:13-Sep-2016 Instruction Type:Provider Instructions for Treatment Patient Instructions Indication:Squamous cell carcinoma, face Start:27-Jun-2016 Instruction Type:Provider Instructions for Treatment Patient Instructions Indication:Flank pain Start:26-Oct-2015 Instruction Type:Provider Instructions for Treatment Patient Instructions Indication:Acute pharyngitis Start:01-Sep-2014 Instruction Type:Provider Instructions for Treatment How to access health informa tion online Indication:Acute pharyngitis Start:01-Sep-2014 Instruction Type:Patient Education How to access health informa tion online - Detail Indication:Acute pharyngitis Start:01-Sep-2014 Instruction Type:Patient Education Patient Instructions Indication:Allergic Rhinitis Start:07-Jan-2014 Instruction Type:Provider Instructions for Treatment Patient Instructions Indication:Hyperglyceridemia Start:07-Jan-2014 Instruction Type:Provider Instructions for Treatment obesity counseling Indication:BMI 34.0-34.9,adult Start:24-Jun-2013 Instruction Type:Provider Instructions for Treatment Patient Instructions Indication:Need for prophylactic vaccination and inoculation against influenza Start:24-Jun-2013 Instruction Type:Provider Instructions for Treatment Patient Instructions Indication:Hypertension Start:26-Oct-2012 Instruction Type:Provider Instructions for Treatment patient instrucitons: stop h yzaar, start new rate limiting step and bp control rx at pharm Indication:Atrial fibrillation Start:07-May-2012 Instruction Type:Provider Instructions for Treatment Name Dates Details How to access health informa tion online Indication:BMI 37.0-37.9, adult Start:02-Apr-2020 Instruction Type:Patient Education How to access health informa tion online - Detail Indication:BMI 37.0-37.9, adult Start:02-Apr-2020 Instruction Type:Patient Education Patient Instructions Indication:BMI 37.0-37.9, adult Start:02-Apr-2020 Instruction Type:Provider Instructions for Treatment How to access health informa tion online Indication:Nonsmoker Start:12-Feb-2020 Instruction Type:Patient Education How to access health informa tion online - Detail Indication:Nonsmoker Start:12-Feb-2020 Instruction Type:Patient Education Patient Instructions Indication:Nonsmoker Start:12-Feb-2020 Instruction Type:Provider Instructions for Treatment How to access health informa tion online Indication:BMI 37.0-37.9, adult Start:05-Nov-2019 Instruction Type:Patient Education How to access health informa tion online - Detail Indication:BMI 37.0-37.9, adult Start:05-Nov-2019 Instruction Type:Patient Education Patient Instructions Indication:BMI 37.0-37.9, adult Start:05-Nov-2019 Instruction Type:Provider Instructions for Treatment How to access health informa tion online Indication:Nonsmoker Start:13-Aug-2018 Instruction Type:Patient Education How to access health informa tion online - Detail Indication:Nonsmoker Start:13-Aug-2018 Instruction Type:Patient Education Patient Instructions Indication:Nonsmoker Start:13-Aug-2018 Instruction Type:Provider Instructions for Treatment How to access health informa tion online Indication:Nonsmoker Start:06-Aug-2018 Instruction Type:Patient Education How to access health informa tion online - Detail Indication:Nonsmoker Start:06-Aug-2018 Instruction Type:Patient Education Patient Instructions Indication:Nonsmoker Start:06-Aug-2018 Instruction Type:Provider Instructions for Treatment How to access health informa tion online Indication:Sinusitis, acute Start:13-Apr-2018 Instruction Type:Patient Education How to access health informa tion online - Detail Indication:Sinusitis, acute Start:13-Apr-2018 Instruction Type:Patient Education Patient Instructions Indication:Sinusitis, acute Start:13-Apr-2018 Instruction Type:Provider Instructions for Treatment How to access health informa tion online Indication:BMI 35.0-35.9,adult Start:07-Dec-2017 Instruction Type:Patient Education How to access health informa tion online - Detail Indication:BMI 35.0-35.9,adult Start:07-Dec-2017 Instruction Type:Patient Education Patient Instructions Indication:Sore throat Start:07-Dec-2017 Instruction Type:Provider Instructions for Treatment DISCONTINUED - LIPID PANEL ( [id number]) Indication:Mixed Hyperlipidemia Start:25-Jul-2017 Instruction Type:Patient Education DISCONTINUED - HEPATIC FUNCT ION PANEL ([id number]) Indication:Mixed Hyperlipidemia Start:25-Jul-2017 Instruction Type:Patient Education How to access health informa tion online Indication:Hypertension Start:25-Jul-2017 Instruction Type:Patient Education How to access health informa tion online - Detail Indication:Hypertension Start:25-Jul-2017 Instruction Type:Patient Education Patient Instructions Indication:Hypertension Start:25-Jul-2017 Instruction Type:Provider Instructions for Treatment How to access health informa tion online Indication:BMI 34.0-34.9,adult Start:13-Sep-2016 Instruction Type:Patient Education How to access health informa tion online - Detail Indication:BMI 34.0-34.9,adult Start:13-Sep-2016 Instruction Type:Patient Education Patient Instructions Indication:BMI 34.0-34.9,adult Start:13-Sep-2016 Instruction Type:Provider Instructions for Treatment Patient Instructions Indication:Squamous cell carcinoma, face Start:27-Jun-2016 Instruction Type:Provider Instructions for Treatment Patient Instructions Indication:Flank pain Start:26-Oct-2015 Instruction Type:Provider Instructions for Treatment Patient Instructions Indication:Acute pharyngitis Start:01-Sep-2014 Instruction Type:Provider Instructions for Treatment How to access health informa tion online Indication:Acute pharyngitis Start:01-Sep-2014 Instruction Type:Patient Education How to access health informa tion online - Detail Indication:Acute pharyngitis Start:01-Sep-2014 Instruction Type:Patient Education Patient Instructions Indication:Allergic Rhinitis Start:07-Jan-2014 Instruction Type:Provider Instructions for Treatment Patient Instructions Indication:Hyperglyceridemia Start:07-Jan-2014 Instruction Type:Provider Instructions for Treatment obesity counseling Indication:BMI 34.0-34.9,adult Start:24-Jun-2013 Instruction Type:Provider Instructions for Treatment Patient Instructions Indication:Need for prophylactic vaccination and inoculation against influenza Start:24-Jun-2013 Instruction Type:Provider Instructions for Treatment Patient Instructions Indication:Hypertension Start:26-Oct-2012 Instruction Type:Provider Instructions for Treatment patient instrucitons: stop h yzaar, start new rate limiting step and bp control rx at pharm Indication:Atrial fibrillation Start:07-May-2012 Instruction Type:Provider Instructions for Treatment Name Dates Details How to access health informa tion online Indication:BMI 37.0-37.9, adult Start:02-Apr-2020 Instruction Type:Patient Education How to access health informa tion online - Detail Indication:BMI 37.0-37.9, adult Start:02-Apr-2020 Instruction Type:Patient Education Patient Instructions Indication:BMI 37.0-37.9, adult Start:02-Apr-2020 Instruction Type:Provider Instructions for Treatment How to access health informa tion online Indication:Nonsmoker Start:12-Feb-2020 Instruction Type:Patient Education How to access health informa tion online - Detail Indication:Nonsmoker Start:12-Feb-2020 Instruction Type:Patient Education Patient Instructions Indication:Nonsmoker Start:12-Feb-2020 Instruction Type:Provider Instructions for Treatment How to access health informa tion online Indication:BMI 37.0-37.9, adult Start:05-Nov-2019 Instruction Type:Patient Education How to access health informa tion online - Detail Indication:BMI 37.0-37.9, adult Start:05-Nov-2019 Instruction Type:Patient Education Patient Instructions Indication:BMI 37.0-37.9, adult Start:05-Nov-2019 Instruction Type:Provider Instructions for Treatment How to access health informa tion online Indication:Nonsmoker Start:13-Aug-2018 Instruction Type:Patient Education How to access health informa tion online - Detail Indication:Nonsmoker Start:13-Aug-2018 Instruction Type:Patient Education Patient Instructions Indication:Nonsmoker Start:13-Aug-2018 Instruction Type:Provider Instructions for Treatment How to access health informa tion online Indication:Nonsmoker Start:06-Aug-2018 Instruction Type:Patient Education How to access health informa tion online - Detail Indication:Nonsmoker Start:06-Aug-2018 Instruction Type:Patient Education Patient Instructions Indication:Nonsmoker Start:06-Aug-2018 Instruction Type:Provider Instructions for Treatment How to access health informa tion online Indication:Sinusitis, acute Start:13-Apr-2018 Instruction Type:Patient Education How to access health informa tion online - Detail Indication:Sinusitis, acute Start:13-Apr-2018 Instruction Type:Patient Education Patient Instructions Indication:Sinusitis, acute Start:13-Apr-2018 Instruction Type:Provider Instructions for Treatment How to access health informa tion online Indication:BMI 35.0-35.9,adult Start:07-Dec-2017 Instruction Type:Patient Education How to access health informa tion online - Detail Indication:BMI 35.0-35.9,adult Start:07-Dec-2017 Instruction Type:Patient Education Patient Instructions Indication:Sore throat Start:07-Dec-2017 Instruction Type:Provider Instructions for Treatment DISCONTINUED - LIPID PANEL ( [id number]) Indication:Mixed Hyperlipidemia Start:25-Jul-2017 Instruction Type:Patient Education DISCONTINUED - HEPATIC FUNCT ION PANEL ([id number]) Indication:Mixed Hyperlipidemia Start:25-Jul-2017 Instruction Type:Patient Education How to access health informa tion online Indication:Hypertension Start:25-Jul-2017 Instruction Type:Patient Education How to access health informa tion online - Detail Indication:Hypertension Start:25-Jul-2017 Instruction Type:Patient Education Patient Instructions Indication:Hypertension Start:25-Jul-2017 Instruction Type:Provider Instructions for Treatment How to access health informa tion online Indication:BMI 34.0-34.9,adult Start:13-Sep-2016 Instruction Type:Patient Education How to access health informa tion online - Detail Indication:BMI 34.0-34.9,adult Start:13-Sep-2016 Instruction Type:Patient Education Patient Instructions Indication:BMI 34.0-34.9,adult Start:13-Sep-2016 Instruction Type:Provider Instructions for Treatment Patient Instructions Indication:Squamous cell carcinoma, face Start:27-Jun-2016 Instruction Type:Provider Instructions for Treatment Patient Instructions Indication:Flank pain Start:26-Oct-2015 Instruction Type:Provider Instructions for Treatment Patient Instructions Indication:Acute pharyngitis Start:01-Sep-2014 Instruction Type:Provider Instructions for Treatment How to access health informa [employer] online Indication:Acute pharyngitis Start:01-Sep-2014 Instruction Type:Patient Education How to access health informa tion online - Detail Indication:Acute pharyngitis Start:01-Sep-2014 Instruction Type:Patient Education Patient Instructions Indication:Allergic Rhinitis Start:07-Jan-2014 Instruction Type:Provider Instructions for Treatment Patient Instructions Indication:Hyperglyceridemia Start:07-Jan-2014 Instruction Type:Provider Instructions for Treatment obesity counseling Indication:BMI 34.0-34.9,adult Start:24-Jun-2013 Instruction Type:Provider Instructions for Treatment Patient Instructions Indication:Need for prophylactic vaccination and inoculation against influenza Start:24-Jun-2013 Instruction Type:Provider Instructions for Treatment Patient Instructions Indication:Hypertension Start:26-Oct-2012 Instruction Type:Provider Instructions for Treatment patient instrucitons: stop h yzaar, start new rate limiting step and bp control rx at pharm Indication:Atrial fibrillation Start:07-May-2012 Instruction Type:Provider Instructions for Treatment Name Dates Details How to access health informa tion online Indication:BMI 37.0-37.9, adult Start:02-Apr-2020 Instruction Type:Patient Education How to access health informa tion online - Detail Indication:BMI 37.0-37.9, adult Start:02-Apr-2020 Instruction Type:Patient Education Patient Instructions Indication:BMI 37.0-37.9, adult Start:02-Apr-2020 Instruction Type:Provider Instructions for Treatment How to access health informa tion online Indication:Nonsmoker Start:12-Feb-2020 Instruction Type:Patient Education How to access health informa tion online - Detail Indication:Nonsmoker Start:12-Feb-2020 Instruction Type:Patient Education Patient Instructions Indication:Nonsmoker Start:12-Feb-2020 Instruction Type:Provider Instructions for Treatment How to access health informa tion online Indication:BMI 37.0-37.9, adult Start:05-Nov-2019 Instruction Type:Patient Education How to access health informa tion online - Detail Indication:BMI 37.0-37.9, adult Start:05-Nov-2019 Instruction Type:Patient Education Patient Instructions Indication:BMI 37.0-37.9, adult Start:05-Nov-2019 Instruction Type:Provider Instructions for Treatment How to access health informa tion online Indication:Nonsmoker Start:13-Aug-2018 Instruction Type:Patient Education How to access health informa tion online - Detail Indication:Nonsmoker Start:13-Aug-2018 Instruction Type:Patient Education Patient Instructions Indication:Nonsmoker Start:13-Aug-2018 Instruction Type:Provider Instructions for Treatment How to access health informa tion online Indication:Nonsmoker Start:06-Aug-2018 Instruction Type:Patient Education How to access health informa tion online - Detail Indication:Nonsmoker Start:06-Aug-2018 Instruction Type:Patient Education Patient Instructions Indication:Nonsmoker Start:06-Aug-2018 Instruction Type:Provider Instructions for Treatment How to access health informa tion online Indication:Sinusitis, acute Start:13-Apr-2018 Instruction Type:Patient Education How to access health informa tion online - Detail Indication:Sinusitis, acute Start:13-Apr-2018 Instruction Type:Patient Education Patient Instructions Indication:Sinusitis, acute Start:13-Apr-2018 Instruction Type:Provider Instructions for Treatment How to access health informa tion online Indication:BMI 35.0-35.9,adult Start:07-Dec-2017 Instruction Type:Patient Education How to access health informa tion online - Detail Indication:BMI 35.0-35.9,adult Start:07-Dec-2017 Instruction Type:Patient Education Patient Instructions Indication:Sore throat Start:07-Dec-2017 Instruction Type:Provider Instructions for Treatment DISCONTINUED - LIPID PANEL ( [id number]) Indication:Mixed Hyperlipidemia Start:25-Jul-2017 Instruction Type:Patient Education DISCONTINUED - HEPATIC FUNCT ION PANEL ([id number]) Indication:Mixed Hyperlipidemia Start:25-Jul-2017 Instruction Type:Patient Education How to access health informa tion online Indication:Hypertension Start:25-Jul-2017 Instruction Type:Patient Education How to access health informa tion online - Detail Indication:Hypertension Start:25-Jul-2017 Instruction Type:Patient Education Patient Instructions Indication:Hypertension Start:25-Jul-2017 Instruction Type:Provider Instructions for Treatment How to access health informa tion online Indication:BMI 34.0-34.9,adult Start:13-Sep-2016 Instruction Type:Patient Education How to access health informa tion online - Detail Indication:BMI 34.0-34.9,adult Start:13-Sep-2016 Instruction Type:Patient Education Patient Instructions Indication:BMI 34.0-34.9,adult Start:13-Sep-2016 Instruction Type:Provider Instructions for Treatment Patient Instructions Indication:Squamous cell carcinoma, face Start:27-Jun-2016 Instruction Type:Provider Instructions for Treatment Patient Instructions Indication:Flank pain Start:26-Oct-2015 Instruction Type:Provider Instructions for Treatment Patient Instructions Indication:Acute pharyngitis Start:01-Sep-2014 Instruction Type:Provider Instructions for Treatment How to access health informa tion online Indication:Acute pharyngitis Start:01-Sep-2014 Instruction Type:Patient Education How to access health informa tion online - Detail Indication:Acute pharyngitis Start:01-Sep-2014 Instruction Type:Patient Education Patient Instructions Indication:Allergic Rhinitis Start:07-Jan-2014 Instruction Type:Provider Instructions for Treatment Patient Instructions Indication:Hyperglyceridemia Start:07-Jan-2014 Instruction Type:Provider Instructions for Treatment obesity counseling Indication:BMI 34.0-34.9,adult Start:24-Jun-2013 Instruction Type:Provider Instructions for Treatment Patient Instructions Indication:Need for prophylactic vaccination and inoculation against influenza Start:24-Jun-2013 Instruction Type:Provider Instructions for Treatment Patient Instructions Indication:Hypertension Start:26-Oct-2012 Instruction Type:Provider Instructions for Treatment patient instrucitons: stop h yzaar, start new rate limiting step and bp control rx at pharm Indication:Atrial fibrillation Start:07-May-2012 Instruction Type:Provider Instructions for Treatment Name Dates Details How to access health informa tion online Indication:BMI 37.0-37.9, adult Start:02-Apr-2020 Instruction Type:Patient Education How to access health informa tion online - Detail Indication:BMI 37.0-37.9, adult Start:02-Apr-2020 Instruction Type:Patient Education Patient Instructions Indication:BMI 37.0-37.9, adult Start:02-Apr-2020 Instruction Type:Provider Instructions for Treatment How to access health informa tion online Indication:Nonsmoker Start:12-Feb-2020 Instruction Type:Patient Education How to access health informa tion online - Detail Indication:Nonsmoker Start:12-Feb-2020 Instruction Type:Patient Education Patient Instructions Indication:Nonsmoker Start:12-Feb-2020 Instruction Type:Provider Instructions for Treatment How to access health informa tion online Indication:BMI 37.0-37.9, adult Start:05-Nov-2019 Instruction Type:Patient Education How to access health informa tion online - Detail Indication:BMI 37.0-37.9, adult Start:05-Nov-2019 Instruction Type:Patient Education Patient Instructions Indication:BMI 37.0-37.9, adult Start:05-Nov-2019 Instruction Type:Provider Instructions for Treatment How to access health informa tion online Indication:Nonsmoker Start:13-Aug-2018 Instruction Type:Patient Education How to access health informa tion online - Detail Indication:Nonsmoker Start:13-Aug-2018 Instruction Type:Patient Education Patient Instructions Indication:Nonsmoker Start:13-Aug-2018 Instruction Type:Provider Instructions for Treatment How to access health informa tion online Indication:Nonsmoker Start:06-Aug-2018 Instruction Type:Patient Education How to access health informa tion online - Detail Indication:Nonsmoker Start:06-Aug-2018 Instruction Type:Patient Education Patient Instructions Indication:Nonsmoker Start:06-Aug-2018 Instruction Type:Provider Instructions for Treatment How to access health informa tion online Indication:Sinusitis, acute Start:13-Apr-2018 Instruction Type:Patient Education How to access health informa tion online - Detail Indication:Sinusitis, acute Start:13-Apr-2018 Instruction Type:Patient Education Patient Instructions Indication:Sinusitis, acute Start:13-Apr-2018 Instruction Type:Provider Instructions for Treatment How to access health informa tion online Indication:BMI 35.0-35.9,adult Start:07-Dec-2017 Instruction Type:Patient Education How to access health informa tion online - Detail Indication:BMI 35.0-35.9,adult Start:07-Dec-2017 Instruction Type:Patient Education Patient Instructions Indication:Sore throat Start:07-Dec-2017 Instruction Type:Provider Instructions for Treatment DISCONTINUED - LIPID PANEL ( [id number]) Indication:Mixed Hyperlipidemia Start:25-Jul-2017 Instruction Type:Patient Education DISCONTINUED - HEPATIC FUNCT ION PANEL ([id number]) Indication:Mixed Hyperlipidemia Start:25-Jul-2017 Instruction Type:Patient Education How to access health informa tion online Indication:Hypertension Start:25-Jul-2017 Instruction Type:Patient Education How to access health informa tion online - Detail Indication:Hypertension Start:25-Jul-2017 Instruction Type:Patient Education Patient Instructions Indication:Hypertension Start:25-Jul-2017 Instruction Type:Provider Instructions for Treatment How to access health informa tion online Indication:BMI 34.0-34.9,adult Start:13-Sep-2016 Instruction Type:Patient Education How to access health informa tion online - Detail Indication:BMI 34.0-34.9,adult Start:13-Sep-2016 Instruction Type:Patient Education Patient Instructions Indication:BMI 34.0-34.9,adult Start:13-Sep-2016 Instruction Type:Provider Instructions for Treatment Patient Instructions Indication:Squamous cell carcinoma, face Start:27-Jun-2016 Instruction Type:Provider Instructions for Treatment Patient Instructions Indication:Flank pain Start:26-Oct-2015 Instruction Type:Provider Instructions for Treatment Patient Instructions Indication:Acute pharyngitis Start:01-Sep-2014 Instruction Type:Provider Instructions for Treatment How to access health informa tion online Indication:Acute pharyngitis Start:01-Sep-2014 Instruction Type:Patient Education How to access health informa tion online - Detail Indication:Acute pharyngitis Start:01-Sep-2014 Instruction Type:Patient Education Patient Instructions Indication:Allergic Rhinitis Start:07-Jan-2014 Instruction Type:Provider Instructions for Treatment Patient Instructions Indication:Hyperglyceridemia Start:07-Jan-2014 Instruction Type:Provider Instructions for Treatment obesity counseling Indication:BMI 34.0-34.9,adult Start:24-Jun-2013 Instruction Type:Provider Instructions for Treatment Patient Instructions Indication:Need for prophylactic vaccination and inoculation against influenza Start:24-Jun-2013 Instruction Type:Provider Instructions for Treatment Patient Instructions Indication:Hypertension Start:26-Oct-2012 Instruction Type:Provider Instructions for Treatment patient instrucitons: stop h hardyar, start new rate limiting step and bp control rx at pharm Indication:Atrial fibrillation Start:07-May-2012 Instruction Type:Provider Instructions for Treatment Name Dates Details How to access health informa tion online Indication:BMI 37.0-37.9, adult Start:02-Apr-2020 Instruction Type:Patient Education How to access health informa tion online - Detail Indication:BMI 37.0-37.9, adult Start:02-Apr-2020 Instruction Type:Patient Education Patient Instructions Indication:BMI 37.0-37.9, adult Start:02-Apr-2020 Instruction Type:Provider Instructions for Treatment How to access health informa tion online Indication:Nonsmoker Start:12-Feb-2020 Instruction Type:Patient Education How to access health informa tion online - Detail Indication:Nonsmoker Start:12-Feb-2020 Instruction Type:Patient Education Patient Instructions Indication:Nonsmoker Start:12-Feb-2020 Instruction Type:Provider Instructions for Treatment How to access health informa tion online Indication:BMI 37.0-37.9, adult Start:05-Nov-2019 Instruction Type:Patient Education How to access health informa tion online - Detail Indication:BMI 37.0-37.9, adult Start:05-Nov-2019 Instruction Type:Patient Education Patient Instructions Indication:BMI 37.0-37.9, adult Start:05-Nov-2019 Instruction Type:Provider Instructions for Treatment How to access health informa tion online Indication:Nonsmoker Start:13-Aug-2018 Instruction Type:Patient Education How to access health informa tion online - Detail Indication:Nonsmoker Start:13-Aug-2018 Instruction Type:Patient Education Patient Instructions Indication:Nonsmoker Start:13-Aug-2018 Instruction Type:Provider Instructions for Treatment How to access health informa tion online Indication:Nonsmoker Start:06-Aug-2018 Instruction Type:Patient Education How to access health informa tion online - Detail Indication:Nonsmoker Start:06-Aug-2018 Instruction Type:Patient Education Patient Instructions Indication:Nonsmoker Start:06-Aug-2018 Instruction Type:Provider Instructions for Treatment How to access health informa tion online Indication:Sinusitis, acute Start:13-Apr-2018 Instruction Type:Patient Education How to access health informa tion online - Detail Indication:Sinusitis, acute Start:13-Apr-2018 Instruction Type:Patient Education Patient Instructions Indication:Sinusitis, acute Start:13-Apr-2018 Instruction Type:Provider Instructions for Treatment How to access health informa tion online Indication:BMI 35.0-35.9,adult Start:07-Dec-2017 Instruction Type:Patient Education How to access health informa tion online - Detail Indication:BMI 35.0-35.9,adult Start:07-Dec-2017 Instruction Type:Patient Education Patient Instructions Indication:Sore throat Start:07-Dec-2017 Instruction Type:Provider Instructions for Treatment DISCONTINUED - LIPID PANEL ( [id number]) Indication:Mixed Hyperlipidemia Start:25-Jul-2017 Instruction Type:Patient Education DISCONTINUED - HEPATIC FUNCT ION PANEL ([id number]) Indication:Mixed Hyperlipidemia Start:25-Jul-2017 Instruction Type:Patient Education How to access health informa tion online Indication:Hypertension Start:25-Jul-2017 Instruction Type:Patient Education How to access health informa tion online - Detail Indication:Hypertension Start:25-Jul-2017 Instruction Type:Patient Education Patient Instructions Indication:Hypertension Start:25-Jul-2017 Instruction Type:Provider Instructions for Treatment How to access health informa tion online Indication:BMI 34.0-34.9,adult Start:13-Sep-2016 Instruction Type:Patient Education How to access health informa tion online - Detail Indication:BMI 34.0-34.9,adult Start:13-Sep-2016 Instruction Type:Patient Education Patient Instructions Indication:BMI 34.0-34.9,adult Start:13-Sep-2016 Instruction Type:Provider Instructions for Treatment Patient Instructions Indication:Squamous cell carcinoma, face Start:27-Jun-2016 Instruction Type:Provider Instructions for Treatment Patient Instructions Indication:Flank pain Start:26-Oct-2015 Instruction Type:Provider Instructions for Treatment Patient Instructions Indication:Acute pharyngitis Start:01-Sep-2014 Instruction Type:Provider Instructions for Treatment How to access health informa tion online Indication:Acute pharyngitis Start:01-Sep-2014 Instruction Type:Patient Education How to access health informa tion online - Detail Indication:Acute pharyngitis Start:01-Sep-2014 Instruction Type:Patient Education Patient Instructions Indication:Allergic Rhinitis Start:07-Jan-2014 Instruction Type:Provider Instructions for Treatment Patient Instructions Indication:Hyperglyceridemia Start:07-Jan-2014 Instruction Type:Provider Instructions for Treatment obesity counseling Indication:BMI 34.0-34.9,adult Start:24-Jun-2013 Instruction Type:Provider Instructions for Treatment Patient Instructions Indication:Need for prophylactic vaccination and inoculation against influenza Start:24-Jun-2013 Instruction Type:Provider Instructions for Treatment Patient Instructions Indication:Hypertension Start:26-Oct-2012 Instruction Type:Provider Instructions for Treatment patient instrucitons: stop h yzaar, start new rate limiting step and bp control rx at pharm Indication:Atrial fibrillation Start:07-May-2012 Instruction Type:Provider Instructions for Treatment Name Dates Details How to access health informa tion online Indication:Nonsmoker Start:14-Aug-2020 Instruction Type:Patient Education How to access health informa tion online - Detail Indication:Nonsmoker Start:14-Aug-2020 Instruction Type:Patient Education Patient Instructions Indication:History of atrial fibrillation Start:14-Aug-2020 Instruction Type:Provider Instructions for Treatment How to access health informa tion online Indication:BMI 37.0-37.9, adult Start:02-Apr-2020 Instruction Type:Patient Education How to access health informa tion online - Detail Indication:BMI 37.0-37.9, adult Start:02-Apr-2020 Instruction Type:Patient Education Patient Instructions Indication:BMI 37.0-37.9, adult Start:02-Apr-2020 Instruction Type:Provider Instructions for Treatment How to access health informa tion online Indication:Nonsmoker Start:12-Feb-2020 Instruction Type:Patient Education How to access health informa tion online - Detail Indication:Nonsmoker Start:12-Feb-2020 Instruction Type:Patient Education Patient Instructions Indication:Nonsmoker Start:12-Feb-2020 Instruction Type:Provider Instructions for Treatment How to access health informa tion online Indication:BMI 37.0-37.9, adult Start:05-Nov-2019 Instruction Type:Patient Education How to access health informa tion online - Detail Indication:BMI 37.0-37.9, adult Start:05-Nov-2019 Instruction Type:Patient Education Patient Instructions Indication:BMI 37.0-37.9, adult Start:05-Nov-2019 Instruction Type:Provider Instructions for Treatment How to access health informa tion online Indication:Nonsmoker Start:13-Aug-2018 Instruction Type:Patient Education How to access health informa tion online - Detail Indication:Nonsmoker Start:13-Aug-2018 Instruction Type:Patient Education Patient Instructions Indication:Nonsmoker Start:13-Aug-2018 Instruction Type:Provider Instructions for Treatment How to access health informa tion online Indication:Nonsmoker Start:06-Aug-2018 Instruction Type:Patient Education How to access health informa tion online - Detail Indication:Nonsmoker Start:06-Aug-2018 Instruction Type:Patient Education Patient Instructions Indication:Nonsmoker Start:06-Aug-2018 Instruction Type:Provider Instructions for Treatment How to access health informa tion online Indication:Sinusitis, acute Start:13-Apr-2018 Instruction Type:Patient Education How to access health informa tion online - Detail Indication:Sinusitis, acute Start:13-Apr-2018 Instruction Type:Patient Education Patient Instructions Indication:Sinusitis, acute Start:13-Apr-2018 Instruction Type:Provider Instructions for Treatment How to access health informa tion online Indication:BMI 35.0-35.9,adult Start:07-Dec-2017 Instruction Type:Patient Education How to access health informa tion online - Detail Indication:BMI 35.0-35.9,adult Start:07-Dec-2017 Instruction Type:Patient Education Patient Instructions Indication:Sore throat Start:07-Dec-2017 Instruction Type:Provider Instructions for Treatment DISCONTINUED - LIPID PANEL ( [id number]) Indication:Mixed Hyperlipidemia Start:25-Jul-2017 Instruction Type:Patient Education DISCONTINUED - HEPATIC FUNCT ION PANEL ([id number]) Indication:Mixed Hyperlipidemia Start:25-Jul-2017 Instruction Type:Patient Education How to access health informa tion online Indication:Hypertension Start:25-Jul-2017 Instruction Type:Patient Education How to access health informa tion online - Detail Indication:Hypertension Start:25-Jul-2017 Instruction Type:Patient Education Patient Instructions Indication:Hypertension Start:25-Jul-2017 Instruction Type:Provider Instructions for Treatment How to access health informa tion online Indication:BMI 34.0-34.9,adult Start:13-Sep-2016 Instruction Type:Patient Education How to access health informa tion online - Detail Indication:BMI 34.0-34.9,adult Start:13-Sep-2016 Instruction Type:Patient Education Patient Instructions Indication:BMI 34.0-34.9,adult Start:13-Sep-2016 Instruction Type:Provider Instructions for Treatment Patient Instructions Indication:Squamous cell carcinoma, face Start:27-Jun-2016 Instruction Type:Provider Instructions for Treatment Patient Instructions Indication:Flank pain Start:26-Oct-2015 Instruction Type:Provider Instructions for Treatment Patient Instructions Indication:Acute pharyngitis Start:01-Sep-2014 Instruction Type:Provider Instructions for Treatment How to access health informa tion online Indication:Acute pharyngitis Start:01-Sep-2014 Instruction Type:Patient Education How to access health informa tion online - Detail Indication:Acute pharyngitis Start:01-Sep-2014 Instruction Type:Patient Education Patient Instructions Indication:Allergic Rhinitis Start:07-Jan-2014 Instruction Type:Provider Instructions for Treatment Patient Instructions Indication:Hyperglyceridemia Start:07-Jan-2014 Instruction Type:Provider Instructions for Treatment obesity counseling Indication:BMI 34.0-34.9,adult Start:24-Jun-2013 Instruction Type:Provider Instructions for Treatment Patient Instructions Indication:Need for prophylactic vaccination and inoculation against influenza Start:24-Jun-2013 Instruction Type:Provider Instructions for Treatment Patient Instructions Indication:Hypertension Start:26-Oct-2012 Instruction Type:Provider Instructions for Treatment patient instrucitons: stop h yzaar, start new rate limiting step and bp control rx at pharm Indication:Atrial fibrillation Start:07-May-2012 Instruction Type:Provider Instructions for Treatment Name Dates Details How to access health informa tion online Indication:Nonsmoker Start:14-Aug-2020 Instruction Type:Patient Education How to access health informa tion online - Detail Indication:Nonsmoker Start:14-Aug-2020 Instruction Type:Patient Education Patient Instructions Indication:History of atrial fibrillation Start:14-Aug-2020 Instruction Type:Provider Instructions for Treatment How to access health informa tion online Indication:BMI 37.0-37.9, adult Start:02-Apr-2020 Instruction Type:Patient Education How to access health informa tion online - Detail Indication:BMI 37.0-37.9, adult Start:02-Apr-2020 Instruction Type:Patient Education Patient Instructions Indication:BMI 37.0-37.9, adult Start:02-Apr-2020 Instruction Type:Provider Instructions for Treatment How to access health informa tion online Indication:Nonsmoker Start:12-Feb-2020 Instruction Type:Patient Education How to access health informa tion online - Detail Indication:Nonsmoker Start:12-Feb-2020 Instruction Type:Patient Education Patient Instructions Indication:Nonsmoker Start:12-Feb-2020 Instruction Type:Provider Instructions for Treatment How to access health informa tion online Indication:BMI 37.0-37.9, adult Start:05-Nov-2019 Instruction Type:Patient Education How to access health informa tion online - Detail Indication:BMI 37.0-37.9, adult Start:05-Nov-2019 Instruction Type:Patient Education Patient Instructions Indication:BMI 37.0-37.9, adult Start:05-Nov-2019 Instruction Type:Provider Instructions for Treatment How to access health informa tion online Indication:Nonsmoker Start:13-Aug-2018 Instruction Type:Patient Education How to access health informa tion online - Detail Indication:Nonsmoker Start:13-Aug-2018 Instruction Type:Patient Education Patient Instructions Indication:Nonsmoker Start:13-Aug-2018 Instruction Type:Provider Instructions for Treatment How to access health informa tion online Indication:Nonsmoker Start:06-Aug-2018 Instruction Type:Patient Education How to access health informa tion online - Detail Indication:Nonsmoker Start:06-Aug-2018 Instruction Type:Patient Education Patient Instructions Indication:Nonsmoker Start:06-Aug-2018 Instruction Type:Provider Instructions for Treatment How to access health informa tion online Indication:Sinusitis, acute Start:13-Apr-2018 Instruction Type:Patient Education How to access health informa tion online - Detail Indication:Sinusitis, acute Start:13-Apr-2018 Instruction Type:Patient Education Patient Instructions Indication:Sinusitis, acute Start:13-Apr-2018 Instruction Type:Provider Instructions for Treatment How to access health informa tion online Indication:BMI 35.0-35.9,adult Start:07-Dec-2017 Instruction Type:Patient Education How to access health informa tion online - Detail Indication:BMI 35.0-35.9,adult Start:07-Dec-2017 Instruction Type:Patient Education Patient Instructions Indication:Sore throat Start:07-Dec-2017 Instruction Type:Provider Instructions for Treatment DISCONTINUED - LIPID PANEL ( [id number]) Indication:Mixed Hyperlipidemia Start:25-Jul-2017 Instruction Type:Patient Education DISCONTINUED - HEPATIC FUNCT ION PANEL ([id number]) Indication:Mixed Hyperlipidemia Start:25-Jul-2017 Instruction Type:Patient Education How to access health informa tion online Indication:Hypertension Start:25-Jul-2017 Instruction Type:Patient Education How to access health informa tion online - Detail Indication:Hypertension Start:25-Jul-2017 Instruction Type:Patient Education Patient Instructions Indication:Hypertension Start:25-Jul-2017 Instruction Type:Provider Instructions for Treatment How to access health informa tion online Indication:BMI 34.0-34.9,adult Start:13-Sep-2016 Instruction Type:Patient Education How to access health informa tion online - Detail Indication:BMI 34.0-34.9,adult Start:13-Sep-2016 Instruction Type:Patient Education Patient Instructions Indication:BMI 34.0-34.9,adult Start:13-Sep-2016 Instruction Type:Provider Instructions for Treatment Patient Instructions Indication:Squamous cell carcinoma, face Start:27-Jun-2016 Instruction Type:Provider Instructions for Treatment Patient Instructions Indication:Flank pain Start:26-Oct-2015 Instruction Type:Provider Instructions for Treatment Patient Instructions Indication:Acute pharyngitis Start:01-Sep-2014 Instruction Type:Provider Instructions for Treatment How to access health informa tion online Indication:Acute pharyngitis Start:01-Sep-2014 Instruction Type:Patient Education How to access health informa tion online - Detail Indication:Acute pharyngitis Start:01-Sep-2014 Instruction Type:Patient Education Patient Instructions Indication:Allergic Rhinitis Start:07-Jan-2014 Instruction Type:Provider Instructions for Treatment Patient Instructions Indication:Hyperglyceridemia Start:07-Jan-2014 Instruction Type:Provider Instructions for Treatment obesity counseling Indication:BMI 34.0-34.9,adult Start:24-Jun-2013 Instruction Type:Provider Instructions for Treatment Patient Instructions Indication:Need for prophylactic vaccination and inoculation against influenza Start:24-Jun-2013 Instruction Type:Provider Instructions for Treatment Patient Instructions Indication:Hypertension Start:26-Oct-2012 Instruction Type:Provider Instructions for Treatment patient instrucitons: stop h yzaar, start new rate limiting step and bp control rx at pharm Indication:Atrial fibrillation Start:07-May-2012 Instruction Type:Provider Instructions for Treatment Name Dates Details Patient Instructions Indication:Nonsmoker Start:13-Nov-2020 Instruction Type:Provider Instructions for Treatment How to Access Health [employer] using Patient Portal and [email or web address] Indication:Nonsmoker Start:13-Nov-2020 Instruction Type:Patient Education How to access health informa tion online Indication:Nonsmoker Start:14-Aug-2020 Instruction Type:Patient Education How to access health informa tion online - Detail Indication:Nonsmoker Start:14-Aug-2020 Instruction Type:Patient Education Patient Instructions Indication:History of atrial fibrillation Start:14-Aug-2020 Instruction Type:Provider Instructions for Treatment How to access health informa tion online Indication:BMI 37.0-37.9, adult Start:02-Apr-2020 Instruction Type:Patient Education How to access health informa tion online - Detail Indication:BMI 37.0-37.9, adult Start:02-Apr-2020 Instruction Type:Patient Education Patient Instructions Indication:BMI 37.0-37.9, adult Start:02-Apr-2020 Instruction Type:Provider Instructions for Treatment How to access health informa tion online Indication:Nonsmoker Start:12-Feb-2020 Instruction Type:Patient Education How to access health informa tion online - Detail Indication:Nonsmoker Start:12-Feb-2020 Instruction Type:Patient Education Patient Instructions Indication:Nonsmoker Start:12-Feb-2020 Instruction Type:Provider Instructions for Treatment How to access health informa tion online Indication:BMI 37.0-37.9, adult Start:05-Nov-2019 Instruction Type:Patient Education How to access health informa tion online - Detail Indication:BMI 37.0-37.9, adult Start:05-Nov-2019 Instruction Type:Patient Education Patient Instructions Indication:BMI 37.0-37.9, adult Start:05-Nov-2019 Instruction Type:Provider Instructions for Treatment How to access health informa tion online Indication:Nonsmoker Start:13-Aug-2018 Instruction Type:Patient Education How to access health informa tion online - Detail Indication:Nonsmoker Start:13-Aug-2018 Instruction Type:Patient Education Patient Instructions Indication:Nonsmoker Start:13-Aug-2018 Instruction Type:Provider Instructions for Treatment How to access health informa tion online Indication:Nonsmoker Start:06-Aug-2018 Instruction Type:Patient Education How to access health informa tion online - Detail Indication:Nonsmoker Start:06-Aug-2018 Instruction Type:Patient Education Patient Instructions Indication:Nonsmoker Start:06-Aug-2018 Instruction Type:Provider Instructions for Treatment How to access health informa tion online Indication:Sinusitis, acute Start:13-Apr-2018 Instruction Type:Patient Education How to access health informa tion online - Detail Indication:Sinusitis, acute Start:13-Apr-2018 Instruction Type:Patient Education Patient Instructions Indication:Sinusitis, acute Start:13-Apr-2018 Instruction Type:Provider Instructions for Treatment How to access health informa tion online Indication:BMI 35.0-35.9,adult Start:07-Dec-2017 Instruction Type:Patient Education How to access health informa tion online - Detail Indication:BMI 35.0-35.9,adult Start:07-Dec-2017 Instruction Type:Patient Education Patient Instructions Indication:Sore throat Start:07-Dec-2017 Instruction Type:Provider Instructions for Treatment DISCONTINUED - LIPID PANEL ( [id number]) Indication:Mixed Hyperlipidemia Start:25-Jul-2017 Instruction Type:Patient Education DISCONTINUED - HEPATIC FUNCT ION PANEL ([id number]) Indication:Mixed Hyperlipidemia Start:25-Jul-2017 Instruction Type:Patient Education How to access health informa tion online Indication:Hypertension Start:25-Jul-2017 Instruction Type:Patient Education How to access health informa tion online - Detail Indication:Hypertension Start:25-Jul-2017 Instruction Type:Patient Education Patient Instructions Indication:Hypertension Start:25-Jul-2017 Instruction Type:Provider Instructions for Treatment How to access health informa tion online Indication:BMI 34.0-34.9,adult Start:13-Sep-2016 Instruction Type:Patient Education How to access health informa tion online - Detail Indication:BMI 34.0-34.9,adult Start:13-Sep-2016 Instruction Type:Patient Education Patient Instructions Indication:BMI 34.0-34.9,adult Start:13-Sep-2016 Instruction Type:Provider Instructions for Treatment Patient Instructions Indication:Squamous cell carcinoma, face Start:27-Jun-2016 Instruction Type:Provider Instructions for Treatment Patient Instructions Indication:Flank pain Start:26-Oct-2015 Instruction Type:Provider Instructions for Treatment Patient Instructions Indication:Acute pharyngitis Start:01-Sep-2014 Instruction Type:Provider Instructions for Treatment How to access health informa tion online Indication:Acute pharyngitis Start:01-Sep-2014 Instruction Type:Patient Education How to access health informa tion online - Detail Indication:Acute pharyngitis Start:01-Sep-2014 Instruction Type:Patient Education Patient Instructions Indication:Allergic Rhinitis Start:07-Jan-2014 Instruction Type:Provider Instructions for Treatment Patient Instructions Indication:Hyperglyceridemia Start:07-Jan-2014 Instruction Type:Provider Instructions for Treatment obesity counseling Indication:BMI 34.0-34.9,adult Start:24-Jun-2013 Instruction Type:Provider Instructions for Treatment Patient Instructions Indication:Need for prophylactic vaccination and inoculation against influenza Start:24-Jun-2013 Instruction Type:Provider Instructions for Treatment Patient Instructions Indication:Hypertension Start:26-Oct-2012 Instruction Type:Provider Instructions for Treatment patient instrucitons: stop h yzaar, start new rate limiting step and bp control rx at pharm Indication:Atrial fibrillation Start:07-May-2012 Instruction Type:Provider Instructions for Treatment Name Dates Details Patient Instructions Indication:Nonsmoker Start:13-Nov-2020 Instruction Type:Provider Instructions for Treatment How to Access Health Informa tion Online using Patient Portal and [employer] Apps Indication:Nonsmoker Start:13-Nov-2020 Instruction Type:Patient Education How to access health informa tion online Indication:Nonsmoker Start:14-Aug-2020 Instruction Type:Patient Education How to access health informa tion online - Detail Indication:Nonsmoker Start:14-Aug-2020 Instruction Type:Patient Education Patient Instructions Indication:History of atrial fibrillation Start:14-Aug-2020 Instruction Type:Provider Instructions for Treatment How to access health informa tion online Indication:BMI 37.0-37.9, adult Start:02-Apr-2020 Instruction Type:Patient Education How to access health informa tion online - Detail Indication:BMI 37.0-37.9, adult Start:02-Apr-2020 Instruction Type:Patient Education Patient Instructions Indication:BMI 37.0-37.9, adult Start:02-Apr-2020 Instruction Type:Provider Instructions for Treatment How to access health informa tion online Indication:Nonsmoker Start:12-Feb-2020 Instruction Type:Patient Education How to access health informa tion online - Detail Indication:Nonsmoker Start:12-Feb-2020 Instruction Type:Patient Education Patient Instructions Indication:Nonsmoker Start:12-Feb-2020 Instruction Type:Provider Instructions for Treatment How to access health informa tion online Indication:BMI 37.0-37.9, adult Start:05-Nov-2019 Instruction Type:Patient Education How to access health informa tion online - Detail Indication:BMI 37.0-37.9, adult Start:05-Nov-2019 Instruction Type:Patient Education Patient Instructions Indication:BMI 37.0-37.9, adult Start:05-Nov-2019 Instruction Type:Provider Instructions for Treatment How to access health informa tion online Indication:Nonsmoker Start:13-Aug-2018 Instruction Type:Patient Education How to access health informa tion online - Detail Indication:Nonsmoker Start:13-Aug-2018 Instruction Type:Patient Education Patient Instructions Indication:Nonsmoker Start:13-Aug-2018 Instruction Type:Provider Instructions for Treatment How to access health informa tion online Indication:Nonsmoker Start:06-Aug-2018 Instruction Type:Patient Education How to access health informa tion online - Detail Indication:Nonsmoker Start:06-Aug-2018 Instruction Type:Patient Education Patient Instructions Indication:Nonsmoker Start:06-Aug-2018 Instruction Type:Provider Instructions for Treatment How to access health informa tion online Indication:Sinusitis, acute Start:13-Apr-2018 Instruction Type:Patient Education How to access health informa tion online - Detail Indication:Sinusitis, acute Start:13-Apr-2018 Instruction Type:Patient Education Patient Instructions Indication:Sinusitis, acute Start:13-Apr-2018 Instruction Type:Provider Instructions for Treatment How to access health informa tion online Indication:BMI 35.0-35.9,adult Start:07-Dec-2017 Instruction Type:Patient Education How to access health informa tion online - Detail Indication:BMI 35.0-35.9,adult Start:07-Dec-2017 Instruction Type:Patient Education Patient Instructions Indication:Sore throat Start:07-Dec-2017 Instruction Type:Provider Instructions for Treatment DISCONTINUED - LIPID PANEL ( [id number]) Indication:Mixed Hyperlipidemia Start:25-Jul-2017 Instruction Type:Patient Education DISCONTINUED - HEPATIC FUNCT ION PANEL ([id number]) Indication:Mixed Hyperlipidemia Start:25-Jul-2017 Instruction Type:Patient Education How to access health informa tion online Indication:Hypertension Start:25-Jul-2017 Instruction Type:Patient Education How to access health informa tion online - Detail Indication:Hypertension Start:25-Jul-2017 Instruction Type:Patient Education Patient Instructions Indication:Hypertension Start:25-Jul-2017 Instruction Type:Provider Instructions for Treatment How to access health informa tion online Indication:BMI 34.0-34.9,adult Start:13-Sep-2016 Instruction Type:Patient Education How to access health informa tion online - Detail Indication:BMI 34.0-34.9,adult Start:13-Sep-2016 Instruction Type:Patient Education Patient Instructions Indication:BMI 34.0-34.9,adult Start:13-Sep-2016 Instruction Type:Provider Instructions for Treatment Patient Instructions Indication:Squamous cell carcinoma, face Start:27-Jun-2016 Instruction Type:Provider Instructions for Treatment Patient Instructions Indication:Flank pain Start:26-Oct-2015 Instruction Type:Provider Instructions for Treatment Patient Instructions Indication:Acute pharyngitis Start:01-Sep-2014 Instruction Type:Provider Instructions for Treatment How to access health informa tion online Indication:Acute pharyngitis Start:01-Sep-2014 Instruction Type:Patient Education How to access health informa tion online - Detail Indication:Acute pharyngitis Start:01-Sep-2014 Instruction Type:Patient Education Patient Instructions Indication:Allergic Rhinitis Start:07-Jan-2014 Instruction Type:Provider Instructions for Treatment Patient Instructions Indication:Hyperglyceridemia Start:07-Jan-2014 Instruction Type:Provider Instructions for Treatment obesity counseling Indication:BMI 34.0-34.9,adult Start:24-Jun-2013 Instruction Type:Provider Instructions for Treatment Patient Instructions Indication:Need for prophylactic vaccination and inoculation against influenza Start:24-Jun-2013 Instruction Type:Provider Instructions for Treatment Patient Instructions Indication:Hypertension Start:26-Oct-2012 Instruction Type:Provider Instructions for Treatment patient instrucitons: stop h yzaar, start new rate limiting step and bp control rx at pharm Indication:Atrial fibrillation Start:07-May-2012 Instruction Type:Provider Instructions for Treatment Name Dates Details Patient Instructions Indication:Nonsmoker Start:23-Dec-2020 Instruction Type:Provider Instructions for Treatment How to Access Health Informa tion Online using Patient Portal and [employer] Apps Indication:Nonsmoker Start:23-Dec-2020 Instruction Type:Patient Education Patient Instructions Indication:Nonsmoker Start:13-Nov-2020 Instruction Type:Provider Instructions for Treatment How to Access Health Informa tion Online using Patient Portal and [employer] Apps Indication:Nonsmoker Start:13-Nov-2020 Instruction Type:Patient Education How to access health informa tion online Indication:Nonsmoker Start:14-Aug-2020 Instruction Type:Patient Education How to access health informa tion online - Detail Indication:Nonsmoker Start:14-Aug-2020 Instruction Type:Patient Education Patient Instructions Indication:History of atrial fibrillation Start:14-Aug-2020 Instruction Type:Provider Instructions for Treatment How to access health informa tion online Indication:BMI 37.0-37.9, adult Start:02-Apr-2020 Instruction Type:Patient Education How to access health informa tion online - Detail Indication:BMI 37.0-37.9, adult Start:02-Apr-2020 Instruction Type:Patient Education Patient Instructions Indication:BMI 37.0-37.9, adult Start:02-Apr-2020 Instruction Type:Provider Instructions for Treatment How to access health informa tion online Indication:Nonsmoker Start:12-Feb-2020 Instruction Type:Patient Education How to access health informa tion online - Detail Indication:Nonsmoker Start:12-Feb-2020 Instruction Type:Patient Education Patient Instructions Indication:Nonsmoker Start:12-Feb-2020 Instruction Type:Provider Instructions for Treatment How to access health informa tion online Indication:BMI 37.0-37.9, adult Start:05-Nov-2019 Instruction Type:Patient Education How to access health informa tion online - Detail Indication:BMI 37.0-37.9, adult Start:05-Nov-2019 Instruction Type:Patient Education Patient Instructions Indication:BMI 37.0-37.9, adult Start:05-Nov-2019 Instruction Type:Provider Instructions for Treatment How to access health informa tion online Indication:Nonsmoker Start:13-Aug-2018 Instruction Type:Patient Education How to access health informa tion online - Detail Indication:Nonsmoker Start:13-Aug-2018 Instruction Type:Patient Education Patient Instructions Indication:Nonsmoker Start:13-Aug-2018 Instruction Type:Provider Instructions for Treatment How to access health informa tion online Indication:Nonsmoker Start:06-Aug-2018 Instruction Type:Patient Education How to access health informa tion online - Detail Indication:Nonsmoker Start:06-Aug-2018 Instruction Type:Patient Education Patient Instructions Indication:Nonsmoker Start:06-Aug-2018 Instruction Type:Provider Instructions for Treatment How to access health informa tion online Indication:Sinusitis, acute Start:13-Apr-2018 Instruction Type:Patient Education How to access health informa tion online - Detail Indication:Sinusitis, acute Start:13-Apr-2018 Instruction Type:Patient Education Patient Instructions Indication:Sinusitis, acute Start:13-Apr-2018 Instruction Type:Provider Instructions for Treatment How to access health informa tion online Indication:BMI 35.0-35.9,adult Start:07-Dec-2017 Instruction Type:Patient Education How to access health informa tion online - Detail Indication:BMI 35.0-35.9,adult Start:07-Dec-2017 Instruction Type:Patient Education Patient Instructions Indication:Sore throat Start:07-Dec-2017 Instruction Type:Provider Instructions for Treatment DISCONTINUED - LIPID PANEL ( [id number]) Indication:Mixed Hyperlipidemia Start:25-Jul-2017 Instruction Type:Patient Education DISCONTINUED - HEPATIC FUNCT ION PANEL ([id number]) Indication:Mixed Hyperlipidemia Start:25-Jul-2017 Instruction Type:Patient Education How to access health informa tion online Indication:Hypertension Start:25-Jul-2017 Instruction Type:Patient Education How to access health informa tion online - Detail Indication:Hypertension Start:25-Jul-2017 Instruction Type:Patient Education Patient Instructions Indication:Hypertension Start:25-Jul-2017 Instruction Type:Provider Instructions for Treatment How to access health informa tion online Indication:BMI 34.0-34.9,adult Start:13-Sep-2016 Instruction Type:Patient Education How to access health informa tion online - Detail Indication:BMI 34.0-34.9,adult Start:13-Sep-2016 Instruction Type:Patient Education Patient Instructions Indication:BMI 34.0-34.9,adult Start:13-Sep-2016 Instruction Type:Provider Instructions for Treatment Patient Instructions Indication:Squamous cell carcinoma, face Start:27-Jun-2016 Instruction Type:Provider Instructions for Treatment Patient Instructions Indication:Flank pain Start:26-Oct-2015 Instruction Type:Provider Instructions for Treatment Patient Instructions Indication:Acute pharyngitis Start:01-Sep-2014 Instruction Type:Provider Instructions for Treatment How to access health informa tion online Indication:Acute pharyngitis Start:01-Sep-2014 Instruction Type:Patient Education How to access health informa tion online - Detail Indication:Acute pharyngitis Start:01-Sep-2014 Instruction Type:Patient Education Patient Instructions Indication:Allergic Rhinitis Start:07-Jan-2014 Instruction Type:Provider Instructions for Treatment Patient Instructions Indication:Hyperglyceridemia Start:07-Jan-2014 Instruction Type:Provider Instructions for Treatment obesity counseling Indication:BMI 34.0-34.9,adult Start:24-Jun-2013 Instruction Type:Provider Instructions for Treatment Patient Instructions Indication:Need for prophylactic vaccination and inoculation against influenza Start:24-Jun-2013 Instruction Type:Provider Instructions for Treatment Patient Instructions Indication:Hypertension Start:26-Oct-2012 Instruction Type:Provider Instructions for Treatment patient instrucitons: stop h yzaar, start new rate limiting step and bp control rx at pharm Indication:Atrial fibrillation Start:07-May-2012 Instruction Type:Provider Instructions for Treatment Name Dates Details Patient Instructions Indication:Nonsmoker Start:23-Dec-2020 Instruction Type:Provider Instructions for Treatment How to Access Health Informa tion Online using Patient Portal and [employer] Apps Indication:Nonsmoker Start:23-Dec-2020 Instruction Type:Patient Education Patient Instructions Indication:Nonsmoker Start:13-Nov-2020 Instruction Type:Provider Instructions for Treatment How to Access Health Informa tion Online using Patient Portal and [employer] Apps Indication:Nonsmoker Start:13-Nov-2020 Instruction Type:Patient Education How to access health informa tion online Indication:Nonsmoker Start:14-Aug-2020 Instruction Type:Patient Education How to access health informa tion online - Detail Indication:Nonsmoker Start:14-Aug-2020 Instruction Type:Patient Education Patient Instructions Indication:History of atrial fibrillation Start:14-Aug-2020 Instruction Type:Provider Instructions for Treatment How to access health informa tion online Indication:BMI 37.0-37.9, adult Start:02-Apr-2020 Instruction Type:Patient Education How to access health informa tion online - Detail Indication:BMI 37.0-37.9, adult Start:02-Apr-2020 Instruction Type:Patient Education Patient Instructions Indication:BMI 37.0-37.9, adult Start:02-Apr-2020 Instruction Type:Provider Instructions for Treatment How to access health informa tion online Indication:Nonsmoker Start:12-Feb-2020 Instruction Type:Patient Education How to access health informa tion online - Detail Indication:Nonsmoker Start:12-Feb-2020 Instruction Type:Patient Education Patient Instructions Indication:Nonsmoker Start:12-Feb-2020 Instruction Type:Provider Instructions for Treatment How to access health informa tion online Indication:BMI 37.0-37.9, adult Start:05-Nov-2019 Instruction Type:Patient Education How to access health informa tion online - Detail Indication:BMI 37.0-37.9, adult Start:05-Nov-2019 Instruction Type:Patient Education Patient Instructions Indication:BMI 37.0-37.9, adult Start:05-Nov-2019 Instruction Type:Provider Instructions for Treatment How to access health informa tion online Indication:Nonsmoker Start:13-Aug-2018 Instruction Type:Patient Education How to access health informa tion online - Detail Indication:Nonsmoker Start:13-Aug-2018 Instruction Type:Patient Education Patient Instructions Indication:Nonsmoker Start:13-Aug-2018 Instruction Type:Provider Instructions for Treatment How to access health informa tion online Indication:Nonsmoker Start:06-Aug-2018 Instruction Type:Patient Education How to access health informa tion online - Detail Indication:Nonsmoker Start:06-Aug-2018 Instruction Type:Patient Education Patient Instructions Indication:Nonsmoker Start:06-Aug-2018 Instruction Type:Provider Instructions for Treatment How to access health informa tion online Indication:Sinusitis, acute Start:13-Apr-2018 Instruction Type:Patient Education How to access health informa tion online - Detail Indication:Sinusitis, acute Start:13-Apr-2018 Instruction Type:Patient Education Patient Instructions Indication:Sinusitis, acute Start:13-Apr-2018 Instruction Type:Provider Instructions for Treatment How to access health informa tion online Indication:BMI 35.0-35.9,adult Start:07-Dec-2017 Instruction Type:Patient Education How to access health informa tion online - Detail Indication:BMI 35.0-35.9,adult Start:07-Dec-2017 Instruction Type:Patient Education Patient Instructions Indication:Sore throat Start:07-Dec-2017 Instruction Type:Provider Instructions for Treatment DISCONTINUED - LIPID PANEL ( [id number]) Indication:Mixed Hyperlipidemia Start:25-Jul-2017 Instruction Type:Patient Education DISCONTINUED - HEPATIC FUNCT ION PANEL ([id number]) Indication:Mixed Hyperlipidemia Start:25-Jul-2017 Instruction Type:Patient Education How to access health informa tion online Indication:Hypertension Start:25-Jul-2017 Instruction Type:Patient Education How to access health informa tion online - Detail Indication:Hypertension Start:25-Jul-2017 Instruction Type:Patient Education Patient Instructions Indication:Hypertension Start:25-Jul-2017 Instruction Type:Provider Instructions for Treatment How to access health informa tion online Indication:BMI 34.0-34.9,adult Start:13-Sep-2016 Instruction Type:Patient Education How to access health informa tion online - Detail Indication:BMI 34.0-34.9,adult Start:13-Sep-2016 Instruction Type:Patient Education Patient Instructions Indication:BMI 34.0-34.9,adult Start:13-Sep-2016 Instruction Type:Provider Instructions for Treatment Patient Instructions Indication:Squamous cell carcinoma, face Start:27-Jun-2016 Instruction Type:Provider Instructions for Treatment Patient Instructions Indication:Flank pain Start:26-Oct-2015 Instruction Type:Provider Instructions for Treatment Patient Instructions Indication:Acute pharyngitis Start:01-Sep-2014 Instruction Type:Provider Instructions for Treatment How to access health informa tion online Indication:Acute pharyngitis Start:01-Sep-2014 Instruction Type:Patient Education How to access health informa tion online - Detail Indication:Acute pharyngitis Start:01-Sep-2014 Instruction Type:Patient Education Patient Instructions Indication:Allergic Rhinitis Start:07-Jan-2014 Instruction Type:Provider Instructions for Treatment Patient Instructions Indication:Hyperglyceridemia Start:07-Jan-2014 Instruction Type:Provider Instructions for Treatment obesity counseling Indication:BMI 34.0-34.9,adult Start:24-Jun-2013 Instruction Type:Provider Instructions for Treatment Patient Instructions Indication:Need for prophylactic vaccination and inoculation against influenza Start:24-Jun-2013 Instruction Type:Provider Instructions for Treatment Patient Instructions Indication:Hypertension Start:26-Oct-2012 Instruction Type:Provider Instructions for Treatment patient instrucitons: stop h yzaar, start new rate limiting step and bp control rx at pharm Indication:Atrial fibrillation Start:07-May-2012 Instruction Type:Provider Instructions for Treatment Chief Complaint and Reason for Visit Chief Complaint ABD STRESS Back in atrial fib. L.Lorson E ORDER CONCERN FOR SINUS INFECTION 6 wk FU FACE PAIN/HEAD E ORDER Reason for Visit Essential hypertensi on Premature ventricular contractions Paroxysmal atrial fibrillation Cluster headaches Migraine headache Tension headache Chief Complaint Back in atrial fib . L.Lorson E ORDER CONCERN FOR SINUS INFECTION 6 wk FU FACE PAIN/HEAD E ORDER VESTIBULAR. RX HERE CLUSTER HEADACHES Reason for Visit Essential hypertensi on Premature ventricular contractions Paroxysmal atrial fibrillation Cluster headaches Migraine headache Tension headache Chief Complaint Back in atrial fib . L.Lorson E ORDER CONCERN FOR SINUS INFECTION 6 wk FU FACE PAIN/HEAD E ORDER CLUSTER HEADACHES VESTIBULAR. RX HERE Reason for Visit Essential hypertensi on Premature ventricular contractions Paroxysmal atrial fibrillation Cluster headaches Migraine headache Tension headache Chief Complaint FACE PAIN/HEAD E ORDER CLUSTER HEADACHES VESTIBULAR. 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 BACK IN AFIB PER PCP Paroxysmal atrial fibrillation Reason for Visit Essential hypertensi on Premature ventricular contractions Hyperlipidemia Paroxysmal atrial fibrillation Chief Complaint XRAY flank pain/abd pain XRAY 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 BACK IN AFIB PER PCP Paroxysmal atrial fibrillation Ventricular premature depolarization Atrial fibrillation Reason for Visit Essential hypertensi on Premature ventricular contractions Hyperlipidemia Paroxysmal atrial fibrillation Chief Complaint XRAY flank pain/abd pain XRAY 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 BACK IN AFIB PER PCP Paroxysmal atrial fibrillation Ventricular premature depolarization Atrial fibrillation AFIB Atrial fibrillation Atrial fibrillation Reason for Visit Essential hypertensi on Premature ventricular contractions Hyperlipidemia Paroxysmal atrial fibrillation Chief Complaint XRAY 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 BACK IN AFIB PER PCP Paroxysmal atrial fibrillation Ventricular premature depolarization Atrial fibrillation AFIB Atrial fibrillation Atrial fibrillation S/P DCCV 1 WK EKG SCREENING 1 Y FU Reason for Visit Essential hypertensi on Premature ventricular contractions Hyperlipidemia Paroxysmal atrial fibrillation Essential hypertension Premature ventricular contractions Hyperlipidemia Paroxysmal atrial fibrillation Chief Complaint Admit Date THYROID GOITER August 06, 2024 12:35pm SCREENING November 11, 2024 1:47 pm Reason for Visit Admit Date H/O partial thyroidectomy August 06, 2024 12:35pm Thyroid nodule August 06, 2024 12:35pm Chief Complaint Admit Date SCREENING November 11, 2024 1:47 pm SCREENING December 19, 2024 8:3 9am Chief Complaint Admit Date SCREENING November 11, 2024 1:47 pm SCREENING December 19, 2024 8:3 9am 9 M FU January 13, 2025 12:53p m THYROID NODULE February 05, 2025 11:37 am Reason for Visit Admit Date Essential hypertension January 13, 2025 12: 53pm Premature ventricular contractions January 132024 12:53pm Hyperlipidemia January 13, 2025 12:53p m Paroxysmal atrial fibrillation January 13, 2025 12:53pm Chief Complaint Admit Date SCREENING November 11, 2024 1:47 pm SCREENING December 19, 2024 8:3 9am 9 M FU January 13, 2025 12:53p m THYROID NODULE February 05, 2025 11:37 am 6M THYROID RECALL February 14, 2025 1:23p m Chief Complaint Admit Date Atrial fibrillation June 27, 2025 9 :16am Reason for Visit Admit Date Essential hypertension June 27 9:16am Premature ventricular contractions Octob er 2024 9:16am Hyperlipidemia June 27, 2025 9 :16am Paroxysmal atrial fibrillation June [id number] 9:16am Advance Directives No Advanced Directives Records Found Advance Directive Response Recorded Date/ Time Advance Directives Yes October 4:21pm Living Will Yes October 22 4:21pm Power of Focuser Yes October 22, 2021 4:21pm Advance Directives on File No [place] 2021 9:38am Name of Medical Power of Focuser pt. unable to remembeer October 11, 2021 9:38am Advance Directive Response Recorded Date/ Time Advance Directives Yes October 4:21pm Living Will Yes October 22, 4:21pm Power of Focuser Yes October 22, 2021 4:21pm Advance Directive Response Recorded Date/ Time Name of Medical Power of Focuser NEPHEW March 16, 2022 10:58am Advance Directives Yes October 4:21pm Living Will Yes March 16, 2022 1 0:58am Power of Focuser Yes March 16, 2022 10:58am Advance Directive Response Recorded Date/ Time Advance Directives Yes October 3:21pm Living Will Yes March 16, 2022 9 :58am Power of Focuser Yes March 16, 2022 9:58am Name Dates Details Immunization Registry [place] - Effective on 06/19/2023. Expiration date unspecified Effective:19-Jun-2023 Name Dates Details Immunization Registry [place] - Effective on 06/19/2023. Expiration date unspecified Effective:19-Jun-2023 Name Dates Details Immunization Registry [place] - Effective on 06/19/2023. Expiration date unspecified Effective:19-Jun-2023 Advance Directive Response Recorded Date/ Time Name of Medical Power of Focuser vito muñoz June 24, 2023 6:44am Advance Directives Yes October 4:21pm Living Will Yes June 24 6:44am Power of Focuser Yes June 24, 2023 6:44am Advance Directive Response Recorded Date/ Time Name of Medical Power of Focuser vito muñoz June 24, 2023 5:44am Advance Directives Yes October 3:21pm Living Will Yes June 24 5:44am Power of Focuser Yes June 24, 2023 5:44am Advance Directive Response Recorded Date/ Time Name of Medical Power of Focuser vito muñoz June 24, 2023 5:44am Advance Directives on File No Sepgurjit 2023 10:53am Name of Medical Power of Focuser vito jenkins October 03, 2023 10:53am Advance Directives Yes October 03, 2023 10:53am Living Will Yes October 03 10:53am Power of Focuser Yes October 03, 2023 10:53am Advance Directive Response Recorded Date/ Time Advance Directives on File No Chat[place] 2023 10:53am Name of Medical Power of Focuser vito jenkins October 03, 2023 10:53am Advance Directives Yes October 03, 2023 10:53am Living Will Yes October 03 10:53am Power of Focuser Yes October 03, 2023 10:53am Advance Directive Response Recorded Date/ Time Living Will Yes October 03 11:53am Power of Focuser Yes October 03, 2023 11:53am Advance Directives Yes October 03, 2023 11:53am Advance Directive Response Recorded Date/ Time Living Will Yes October 03 11:53am Do you have a Healthcare Power of Focuser? Yes October 03, 2023 11:53am Advance Directives Yes October 03, 2023 11:53am Advance Directive Response Recorded Date/ Time Advance Directives Yes October 03, 2023 11:53am Summary Purpose Additional Source Comments Goals (unrecognized section and content) Goals may be documented in a n alternate sectionGoals may be documented in an alternate sectionGoals may be documented in an alternate sectionGoals may be documented in an alternate sectionGoals may be documented in an alternate sectionGoals may be documented in an alternate sectionGoals may be documented in an alternate sectionGoals may be documented in an alternate sectionGoals may be documented in an alternate sectionGoals may be documented in an alternate sectionGoals may be documented in an alternate sectionGoals may be documented in an alternate sectionGoals may be documented in an alternate sectionGoals may be documented in an alternate sectionGoals may be documented in an alternate sectionGoals may be documented in an alternate sectionGoals may be documented in an alternate section INFORMATION SOURCE (unrecogn ized section and content) DATE CREATED AUTHOR 08/22/2022 [facility] [place] DATE CREATED AUTHOR AUTHOR'S ORGANIZ ATION 07/18/2025 [facility] Care Teams (unrecognized sec tion and content) Team Status: Active Member Role Status Dates Lakisha Spears FLIGHT STEWARD, FLIGHT STEWARD-C Family Provider Active No Primary Care Physician Primary Care Provider Active Team Status: Inactive Member Role Status Dates No Primary Care Physician Primary Care Provider, Refer ring Provider Active Dr. Kp Lopez MD Active Cassandra Franco PA, PA Attending Provider Active Team Status: Inactive Member Role Status Dates No Primary Care Physician Primary Care Provider Active Dian Duron FLIGHT STEWARD-C Attending Provider Active Team Status: Active Member Role Status Dates Lakisha Whit FLIGHT STEWARD, FLIGHT STEWARD-C Family Provider Active Dian Duron FLIGHT STEWARD-C Primary Care Provider Active Team Status: Inactive Member Role Status Dates No Primary Care Physician Primary Care Provider Active Dr. Kp Lopez MD Attending Provider Active Team Status: Active Member Role Status Dates No Primary Care Physician Primary Care Provider Active Dian Duron NP-C Attending Provider, Referring Pr ovider Active Team Status: Inactive Member Role Status Dates Dian Duron FLIGHT STEWARD-C Primary Care Provider Active Dr. Slade Lee , DO Emergency Provider Active Team Status: Inactive Member Role Status Dates No Primary Care Physician Primary Care Provider Active Dian Duron NP-C Attending Provider, Referring Pr ovider Active Team Status: Inactive Member Role Status Dates Dian Duron FLIGHT STEWARD-C Primary Care Provider Active Dr. Slade Lee DO Attending Provider, Alexandra acevedo Active Team Status: Inactive Member Role Status Dates Dian Oliverio , FLIGHT STEWARD-C Primary Care Provider, Referring Provider Active Cassandra Franco PA, PA Attending Provider Active Team Status: Inactive Member Role Status Dates Dian Duron , FLIGHT STEWARD-C Primary Care Provider Active Dr. Kp Lopez MD Attending Provider Active Team Status: Active Member Role Status Dates Dian Oliverio , FLIGHT STEWARD-C Primary Care Provi josefina, Attending Provider, Referring Provider Active Team Status: Inactive Member Role Status Dates Dian Oliverio , FLIGHT STEWARD-C Primary Care Provi josefina, Attending Provider, Referring Provider Active Team Status: Inactive Member Role Status Dates Dian Duron , FLIGHT STEWARD-C Primary Care Provider Active Cassandra Franco PA, PA Attending Provider, Referr ing Provider Active Team Status: Active Member Role Status Dates Dian Duron , FLIGHT STEWARD-C Primary Care Provider Active Dr. Kp Lopez MD Attending Provider Active Team Status: Active Member Role Status Dates Dian Duron , FLIGHT STEWARD-C Primary Care Provider Active Dr. Kp Lopez MD Attending Provider, Other Provide r Active Team Status: Active Member Role Status Dates Dian Duron , FLIGHT STEWARD-C Primary Care Provider Active Dr. Kp Lopez MD Attending Provider, Referring Provider, Other Provider Active Team Status: Active Member Role Status Dates Dian Duron , FLIGHT STEWARD-C Primary Care Provider Active Dr. Kp Lopez MD Referring Provider, Other Provide r Active Dr. Mariusz Harris DO Attending Provider Active Team Status: Inactive Member Role Status Dates Dian Duron , FLIGHT STEWARD-C Primary Care Provider Active Dr. Kp Lopez MD Attending Provider, Referring Pro vider Active Team Status: Inactive Member Role Status Dates No Primary Care Physician Referring Provider Active Dr. Kp Lopez MD Attending Provider Active Dian Duron , FLIGHT STEWARD-C Primary Care Provider Active Team Status: Active Member Role Status Dates Dian Duron , FLIGHT STEWARD-C Primary Care Provider Active Dr. Kp Lopez MD Attending Provider, Referring Pro vider Active Team Status: Active Member Role Status Dates Dian Duron , FLIGHT STEWARD-C Primary Care Provider Active Team Status: Inactive Member Role Status Dates Diandayne Duron , FLIGHT STEWARD-C Primary Care Provider Active Start: August 06, 2024 End: August 06, 2024 Dian Duron , FLIGHT STEWARD-C Referring Provider Active Start: August 06, 2024 End: August 06, 2024 Dr. Bro Deleon MD Attending Provider Active Start: August 06, 2024 End: August 06, 2024 Team Status: Inactive Member Role Status Dates Dian Duron , FLIGHT STEWARD-C Primary Care Provider Active Start: November 11, 2024 End: November 11, 2024 Dian Duron , FLIGHT STEWARD-C Attending Provider Active Start: November 11, 2024 End: November 11, 2024 Dian Duron , FLIGHT STEWARD-C Referring Provider Active Start: November 11, 2024 End: November 11, 2024 Team Status: Inactive Member Role Status Dates Diandayne Duron , FLIGHT STEWARD-C Primary Care Provider Active Start: December 19, 2024 End: December 19, 2024 Dian Duron , FLIGHT STEWARD-C Attending Provider Active Start: December 19, 2024 End: December 19, 2024 Diandayne Duron , FLIGHT STEWARD-C Referring Provider Active Start: December 19, 2024 End: December 19, 2024 Team Status: Inactive Member Role Status Dates Dian Duron , FLIGHT STEWARD-C Primary Care Provider Active Start: January 13, 2025 End: January 13, 2025 Dian Duron , FLIGHT STEWARD-C Referring Provider Active Start: January 13, 2025 End: January 13, 2025 TIARRA Cowan Attending Provider Active St art: January 13, 2025 End: January 13, 2025 Team Status: Inactive Member Role Status Dates Dian Duron , FLIGHT STEWARD-C Primary Care Provider Active Start: February 05, 2025 End: February 05, 2025 Dr. Bro Deleon MD Attending Provider Active Start: February 05, 2025 End: February 05, 2025 Dr. Bro Deleon MD Referring Provider Active Start: February 05, 2025 End: February 05, 2025 Team Status: Inactive Member Role Status Dates Diandayne Duron , FLIGHT STEWARD-C Primary Care Provider Active Start: February 14, 2025 End: February 14, 2025 Dian Duron , FLIGHT STEWARD-C Referring Provider Active Start: February 14, 2025 End: February 14, 2025 Dr. Bro Deleon MD Attending Provider Active Start: February 14, 2025 End: February 14, 2025 Team Status: Active Member Role/Relationship Status Dates Dr. Yuridia Kate MD Primary care physician Active Team Status: Inactive Member Role/Relationship Status Dates REBA Joyner Primary care physician Active Start: June 27, 2025 End: June 27, 2025 REBA Joyner Referring Provider Active Start: June 27, 2025 End: June 27, 2025 TIARRA Cowan Attending physician Active S tart: June 27, 2025 End: June 27, 2025 FOR RECORDS PERTAINING TO PATIENTS WHO ARE OR HAVE BEEN ENROLLED IN A CHEMICAL DEPENDENCY/SUBSTANCEABUSE PROGRAM, SOME INFORMATION MAY BE OMITTED. This clinical summary was aggregated from multiple sources. Caution should be exercised in using it in the provision of clinical care. This summary normalizes information from multiple sources, and as a consequence, information in this document may materially change the coding, format and clinical context of patient data. In addition, data may be omitted in some cases. CLINICAL DECISIONS SHOULD BE BASED ON THE PRIMARY CLINICAL RECORDS. [facility] provides no warranty or guarantee of the accuracy or completeness of information in this document.
--- OUTSIDE RECORDS SUMMARY | 2025-08-12 23:26 | XMS RPT_ITS | CCD ---
Author Organization [facility] CliniSyny Care Team Providers Care Drilling Engineering Manager Name Role Phone Lakisha Spears E Unavailable [...] Larissa Griffiths Unavailable Preston Kang Unavailable Unavailable MOIAR Crowell Unavailable Unavailable Olga Kruse Unavailable Unavailable Unavailable Unavailable Itz Marcelino Unavailable Ciesa LYNDALakisha E Unavailable Dr. Itz Marcelino Unavailable Orquidea Page Unavailable Dr. Demetri Tanner Unavailable Slarb PERSONAL COMPUTER NETWORK ENGINEER, Krista Unavailable Unavailable Preston Kang LPN Unavailable Unavailable Maria Luisa Angel Unavailable Unavailable Bakari PERSONAL COMPUTER NETWORK ENGINEER, Maria Luisa Unavailable Unavailable Aaliyah Goel Unavailable Unavailable Unavailable Unavailable Olga Kruse LPN Unavailable Unavailable Carmen, SEWING TRIMMER Unavailable Ciesa Lakisha Unavailable Aye DO Larissa Unavailable Gravius ESCROW CLOSER, Meena Unavailable Unavailable Ciesa SCREW DOWN, SCREW DOWN-C Lakisha Primary Care Provider Ciesa SCREW DOWN, SCREW DOWN-C Lakisha Referring Provider [phone] Dr. Gerald Bell Attending Provider [phone] TIARRA Rivera Attending Provider TIARRA Villatoro Attending Provider Dr. Uzair Palacio Attending Provider Ciesa SCREW DOWN, SCREW DOWN-C Lakisha Primary Care Provider Ciesa SCREW DOWN, SCREW DOWN-C Lakisha Referring Provider [phone] Ciesa, Lakisha Unavailable Oliverio MACHINE ASSEMBLER FOR PULLER OVER, Dian Unavailable [phone] Oliverio MACHINE ASSEMBLER FOR PULLER OVER, Dian Unavailable [phone] Ciesa, Lakisha Unavailable Larissa Griffiths DO Unavailable [phone] Oliverio MACHINE ASSEMBLER FOR PULLER OVER, Dian Attending Unavailable Oliverio MACHINE ASSEMBLER FOR PULLER OVER, Dian Referring Unavailable Oliverio MACHINE ASSEMBLER FOR PULLER OVER, Dian Consulting Unavailable Care Physician, No Primary Primary Care Provider Unavailable Care Physician, No Primary Referring Provider Un available TIARRA Villatoro Attending Provider Tri Santos MA Unavailable Unavailable Care Physician, No Primary Primary Care Provider Unavailable Dr. Kp Lopez Attending Provider [phone] Care Physician, No Primary Primary Care Provider Unavailable Dr. Kp Lopez Attending Provider [phone] Oliverio, SCREW DOWN-C Dian Primary Care Provider [phone] Oliverio, SCREW DOWN-C Dian Referring Provider TIARRA Villatoro Attending Provider Dr. Kp Lopez Other Provider Dr. Kp Lopez Referring Provider [phone] Mariusz Harris Attending Provider Dr. Kp Lopez Attending Provider [phone] Kp Lopez Referring Provider [phone] Care Physician, No Primary Referring Provider Un available Oliverio SCREW DOWN-C, Dian Primary Care Provider Oliverio SCREW DOWN-C, Dian Referring Provider Dr. Bro Deleon MD Attending Provider Oliverio SCREW DOWN-C, Dian Attending Provider Oliverio SCREW DOWN-C, Dian Primary Care Provider Oliverio SCREW DOWN-C, Dian Referring Provider Abdias Salazar Attending Provider Dr. Bro Deleon MD Attending Provider Dr. Bro Deleon MD Referring Provider Oliverio SCREW DOWN-C, Dian Primary Care Physician Oliverio SCREW DOWN-C, Dian Referring Provider Abdias Salazar Attending Physician [...] (18 sources) atorvastatin Drug Allergy 2 Unknown [facility] (5 sources) ezetimibe Drug Allergy 2 Unknown [facility] (18 sources) Pravastatin Drug Allergy 2 Unknown [facility] (18 sources) Simvastatin Drug Allergy 2 Unknown [facility] (1 source) atorvastatin Drug Allergy 5 [facility] Repository (1 source) Pravastatin Drug Allergy 5 [facility] (1 source) Simvastatin Drug Allergy 5 [facility] NEGATED: Highlighted row has been [...] mealtime Start: 03-16-2022 take 1 capsule by [facility] once daily at mealtime Cranberry 500 mg [...] order discontin ued per [employer]. 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, needs Livalo [...] 08-23-2013 End: 08-28-2013 Start: 10-27-2010 End: 11-10-2010 Mcnwkwrz-Vfg-Cq-Lycopen-Lute in (13 sources) Start: 10-05-2016 End: 01-27-2022 Wyxwtcky-Lsh-Et-Lycopen-Lute in Discontinued 1 EACH PO DAILY October 05, 2016 2:49pm January 27, 2022 10:40am Start: 10-05-2016 End: 01-27-2022 Tqqpbzyy-Bvm-Lt-Lycopen-Lute in Discontinued 1 EACH PO DAILY October 05, 2016 12:00am January 27, 2022 9:40am Start: 10-05-2016 End: 01-27-2022 Yjtindor-Mrk-Xs-Lycopen-Lute in Discontinued 1 EACH PO DAILY October 05, 2016 1:00am January 27, 2022 10:40am Qiubbtkv-Ejm-Bu-Lycopen-Lute in 1 EACH tablet (5 sources) Start: 10-05-2016 End: 01-27-2022 Uhxcnhkl-Krr-Df-Lycopen-Lute in 1 EACH tablet Discontinued 1 NMA [...] 12-23-2020 End: 12-30-2020 omega-3 acid ethyl esters (long term) 1000 mg oral capsule (20 sources) Start: [...] (20 sources) Start: 10-15-2013 End: 10-15-2013 sennosides, long term 8.6 mg oral tablet (20 sources) Start: [...] took out an d see someone at [facility] and stable What is described as [...] Facility Cardiology Visit Reporton Cardiology Visit Report [facility] [address] [place] [address] OFFICE VISIT Date of Service: 06/27/25 MR#: [id number] Acct: [id number] Name: KAMRYN MUÑOZ Rep #: [id number] : 1945 Provider: TIARRA Cowan Age/Sex: 79/F Location: [facility] Status: Signed HPI HPI History of [...] led to her panicking. 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 [facility] Medical History Thyroid nodule Wears glasses [...] History of (more content not included)... Normal [facility] Surgery Visit Reporton 02-14 Surgery Visit Report [facility] [address] [place] [address] OFFICE VISIT Date of Service: 02/14/25 MR#: [id number] Acct: [id number] Name: KAMRYN MUÑOZ Rep #: [id number] : 1945 Provider: Dr. Bro douglass MD Age/Sex: 79/F Location: [facility] Status: Signed Intake Vital Signs 08/06/24 12:54 01/13/25 07:30 02/14/25 13:27 Height 5 ft 5 in 5 ft 5 in 5 ft 5 in Weight: 231 lb BMI 38.4 BP 123/80 H Blood Pressure Location Lt brachial Position Sitting Respiration 18 16 Pulse 93 Pulse Source Monitor Pulse Oximetry (%) 97 Intake Visit Reasons: 6M THYROID RECALL Chief Complaint: thyroid f/u Link Trainer Operator Required: No Is patient in pain?: No [...] the michael (more content not included)... Normal [facility] Thyroidon 02-05-2025 Thyroid [facility] Services [address] [place] [address] Thyroid MR#: [id number] Acct: [id number] Name: KAMRYN MUÑOZ Rep #: [id number] : 1945 F 79 From: Wayne blevins MD PCP: REBA Joyner Status: REG CLI Study: Thyroid Date of Exam: 02/05/25 Exam# [id number] Ordering Dr: Bro Deleon MD PROCEDURE: THYROID 02/05/2025 REASON FOR EXAM: THYROID NODULE TECHNIQUE: High-frequency thyroid ultrasound, including grayscale and color-flow images. REFERENCE LINKS: TI-RADS Chart: [email or web address]-[email or web address]/ti -rads TI-RADS Calculator Tool with Reference Images: [email or web address]/rad iology-calculators/body-i maging/tirads-calculator/ COMPARISON: July 22, 2024. FINDINGS: [...] no more than 2 nodules. Reading Location: [place] [address] CC: SCREW DOWNKayyC Dian Duron; Dr. Bro Deleon MD Tube Heater: Signed Normal [facility] Cardiology Visit Reporton Cardiology Visit Report [facility] [address] [place] [address] OFFICE VISIT Date of Service: 01/13/25 MR#: [id number] Acct: [id number] Name: KAMRYN MUÑOZ Rep #: [id number] : 1945 Provider: TIARRA Cowan Age/Sex: 79/F Location: [facility] Status: Signed HPI HPI History of [...] 97 Intake Visit Reasons: 9 M FU Link Trainer Operator Required: No Is patient in pain?: No [...] @ 13 (more content not included)... Normal [facility] Bone density reportOrdered B y: Trip Trista on 12-20-2024 Study report Skeletal system DXA [facility] Imaging Services [address] [place] [address] Dexa Bone Density/Append Skel MR#: [id number] Acct: [id number] Name: KAMRYN MUÑOZ Rep #: [id number] : 1945 F 79 From: Renee Weston MD PCP: Dian Duron NP-C Status: REG C LI Study:Dexa Bone Density/Append Skel Date of E xam: 12/19/24 Exam# [id number] Ordering Dr: Aquilino Duron SCREW DOWN-C PROCEDURE: DEXA BONE DENSITY/APPEND SKEL 12/19/2024 REASON FOR EXAM: None provided. TECHNIQUE: DXA scan of the lumbar spine and left forearm, using Holoe[employer] W. REFERENCE LINKS: ISCD Adult Positions COMPARISON: [...] of the [employer] [place] for Metabolic Bone Disease, World Health Organization (WHO) Collaborating [place]. 1-Major Osteoporotic Fracture: Clinical Spine, Forearm, Hip [...] 3. Additional description as above. Reading Location: [id number] CC: REBA Duron ~ Tube Heater: Signed [facility] Dexa Bone Density/Append Ske kian 12-19-2024 Dexa Bone Density/Append Skel [facility] Imaging Services [address] [place], [place] [id number] Dexa Bone Density/Append Skel MR#: [id number] Acct: [id number] Name: KAMRYN MUÑOZ Rep #: [id number] : 1945 F 79 From: Trip Weston MD PCP: REBA Joyner Status: REG CLI Study: Dexa Bone Density/Append Skel Date of Exam: Exam# [id number] Ordering Dr: Dian Duron PROCEDURE: DEXA BONE DENSITY/APPEND SKEL 12/19/2024 REASON FOR EXAM: None provided. TECHNIQUE: DXA scan of the lumbar spine and left forearm, using [employer] W. REFERENCE LINKS: ISCD Adult Positions COMPARISON: [...] is a trademark of the [employer] [place] for Metabolic Bone Disease, World Health Organization (WHO) Collaborating [place]. 1-Major Osteoporotic Fracture: Clinical Spine, Forearm, Hip [...] 3. Additional description as above. Reading Location: [id number] CC: REBA Duron Tube Heater: Signed Normal [facility] Breast imaging reportOrdered By: Wayne Rabago on 11-12-2024 Study report [facility] Imaging Services [address] [place] [address] SCRN MAMM (CAD)W/TYLOR BILAT MR#: [id number] Acct: [id number] Name: KAMRYN MUÑOZ Rep #: [id number] : 1945 F 79 From: Everette Rabago MD PCP: REBA Joyner Status: [facility] PATRICE Study:SCRN MAMM (CAD)W/TYLOR BILAT Date of Exa m: 11/11/24 Exam# [id number] Ordering Dr: Aquilino Duron PROCEDURE: SCRN MAMM [...] of the results by letter. Reading Location: [id number] CC: REBA Duron ~ Tube Heater: Signed [facility] SCRN MAMM (CAD)W/TYLOR BILATo n 11-11-2024 SCRN MAMM (CAD)W/TYLOR BILAT [facility] Imaging Services [address] [place], [place] [id number] SCRN MAMM (CAD)W/TYLOR BILAT MR#: [id number] Acct: [id number] Name: KAMRYN MUÑOZ Rep #: [id number] : 1945 F 79 From: Wayne blevins MD PCP: REBA Joyner Status: [facility] CLI Study: SCRN MAMM (CAD)W/TYLOR BILAT Date of Exam: 12/03 Exam# [id number] Ordering Dr: Dian Duron PROCEDURE: SCRN MAMM [...] of the results by letter. Reading Location: [id number] CC: SCREW DOWN-C Dian Duron Tube Heater: Signed Normal [facility] Surgery Visit Reporton 08-06 Surgery Visit Report [facility] [address] [place] [address]. [address] [place] [address] OFFICE VISIT Date of Service: 08/06/24 MR#: [id number] Acct: [id number] Name: SUDEEPKAMRYN ROY Rep #: [id number] : 1945 Provider: Dr. Bro douglass MD Age/Sex: 78/F Location: [facility] Status: Signed Intake Vital Signs 05/02/24 10:31 [...] it st (more content not included)... Normal [facility] Thyroidon 07-22-2024 Thyroid [facility] Imaging Services [address] [place] [address] Thyroid MR#: [id number] Acct: [id number] Name: KAMRYN MUÑOZ Rep #: [id number] : 1945 F 78 From: Donnell Bowman MD PCP: Dian Oliverio, SCREW DOWN-C Status: REG CLI Study: Thyroid Date of Exam: 07/22/24 Exam# [id number] Ordering Dr: Bro Deleon MD [id number] STUDY: THYROID ULTRASOUND REASON FOR EXAM: Female, [...] CC: REBA Duron; Dr. Bro Deleon MD Tube Heater: Signed Normal [facility] Basophil percentageOrdered B y: Cassandra Franco on 10-02-2023 Chloride [Moles/Vol] 108 mmol/L 98-107 [facility] Glucose [Mass/Vol] 94 mg/dL 74-106 [facility] Potassium [Moles/Vol] 3.9 mmol/L 3.5-5.1 [facility] Sodium [Moles/Vol] 141 mmol/L 136-145 [facility] Laboratory - Chemistry and C hemistry - challengeOrdered By: Cassandra Franco on 10-02-2023 CO2 [Moles/Vol] 27.0 mmol/L 21.0-32.0 [facility] Urea nitrogen/Creatinine [Mass ratio] 21.0 mg/mg 10-20 [facility] No Panel InformationOrdered By: Cassandra Franco on 10-02-2023 Estimated Creatinine Clearance Calc 61.23 ml/min [facility] Estimated GFR (MDRD) Amer 77 mL/min >60 [facility] Comment on above: GFR Calc Estimated GFR (MDRD) Non-Af Amer 64 mL/min >60 [facility] Comment on above: Non- GFR Calc Serum or plasma calcium elidia urement (mass/volume)Ordered By: Cassandra Franco on 10-02-2023 Calcium [Mass/Vol] 9.7 mg/dL 8.5-10.1 [facility] Serum or plasma creatinine m easurement (mass/volume)Ordered By: Cassandra Franco on 10-02-2023 Creatinine [Mass/Vol] 0.91 mg/dL 0.55-1.02 [facility] Comment on above: The validity of the calculated GFR & GFRAA in patients over 70 years has not been determined. Clinical correlation is essential. Serum or plasma urea nitroge n measurement (mass/volume)Ordered By: Cassandra Franco on 10-02-2023 Urea nitrogen [Mass/Vol] 19 mg/dL 7-18 [facility] Thin prep Papanicolaou smear with manual screeningOrdered By: Cassandra Salvador on 10-02-2023 Thin prep Papanicolaou smear with manual screening 6 5-15 [facility] Basophil percentageOrdered B y: Dian Duron on 08-28-2023 Basophil percentage < 1.0 mg/dL 0.55-1.02 [facility] Laboratory - Chemistry and C hemistry - challengeOrdered By: Dian Duron on 08-28-2023 CK [Catalytic activity/Vol] 48 U/L 26-192 [facility] No Panel InformationOrdered By: Dian Duron on 08-28-2023 Bedside Estimated GFR (eGFR) > 60.0000 mL/min >60 [facility] D-Dimer Quantitative (PE/DVT) 0.74 FEU/ug/m 0.27-0.49 [facility] Comment on above: D-Dimer ELEVATED (>0 .49): Additional studies and clinicalassessments are indicated to conclude diagnosis of:Deep Vein Thrombosis (DVT) or Pulmonary Embolism (PE)CRITICAL VALUE VERIFIED. CALLED TO [facility] ([facility])08/28/23 1058 Lazarus Ruiz.RESULTS READ BACK BY SAME. Troponin I High Sensitivity 6 pg/mL 3.0-54.0 [facility] Comment on above: Please Note: [place] Units and Gender Specific Reference Ranges. For more information see Policy Stat Procedure [place] High Sensitivity Troponin (TNIH) and attachments. Serum or plasma C reactive p rotein measurement (mass/volume)Ordered By: Dian Duron on 08-28-2023 CRP [Mass/Vol] 3.19 mg/L 0.0-3.0 [facility] Comment on above: C-Reactive Protein ( CRP) provides useful information for thediagnosis, therapy and monitoring of inflammatory processesand associated diseases. For the evaluation of Relative Riskfor Cardiovascular Disease, a High Sensitivity CRP (HSCRP)should be ordered. Absolute lymphocyte countOrd ered By: Slade Lee on 06-24-2023 Lymphocytes Auto (Unsp spec) [#/Vol] 1.42 10*3/uL 0.83-4.51 [facility] Basophil percentageOrdered B y: Slade Lee on 06-24-2023 Basophils/100 WBC (Bld) 0.9 % 0-1 [facility] Bilirubin [Mass/Vol] 0.80 mg/dL 0.20-1.00 [facility] Comment on above: For patients on eltr ombopag therapy, use of Dimension [place] TBIL is not recommended. Chloride [Moles/Vol] 110 mmol/L 98-107 [facility] Eosinophils/100 WBC (Bld) 1.9 % 0-5 [facility] Glucose [Mass/Vol] 101 mg/dL 74-106 [facility] Comment on above: Fasting Glucose resu lt from 100 to 125 mg/dL suggests IMPAIRED HOMEOSTASIS per A.D.A. criteria. Neutrophils (Bld) [#/Vol] 3.5 10*3/uL 2.0-7.7 [facility] Neutrophils/100 WBC (Bld) 61.7 % 47-70 [facility] Potassium [Moles/Vol] 3.7 mmol/L 3.5-5.1 [facility] Comment on above: Slight Hemolysis, Re sult may be falsely increased. Protein [Mass/Vol] 7.2 g/dL 6.4-8.2 [facility] Sodium [Moles/Vol] 141 mmol/L 136-145 [facility] WBC (Bld) [#/Vol] 5.7 10*3/uL 4.4-11.0 [facility] Blood erythrocytes count (nu mber/volume)Ordered By: Slade Lee on 06-24-2023 RBC (Bld) [#/Vol] 4.77 10*6/uL 4.2-5.4 [facility] Blood hemoglobin measurement (mass/volume)Ordered By: Slade Lee on 06-24-2023 Hemoglobin (Bld) [Mass/Vol] 14.9 g/dL 12.0-15.0 [facility] Blood lymphocytes/100 leukoc ytesOrdered By: Slade Lee on 06-24-2023 Lymphocytes/100 WBC (Bld) 25.0 % 19-41 [facility] Blood monocytes/100 leukocyt esOrdered By: Slade Lee on 06-24-2023 Monocytes/100 WBC (Bld) 10.1 % 0-10 [facility] Blood platelet mean volumeOr dered By: Slade Lee on 06-24-2023 Platelet mean volume (Bld) [Entitic vol] 11.0 fL 6.2-12.0 [facility] Determination of erythrocyte mean corpuscular volume (MCV)Ordered By: Slade Lee on 06-24-2023 MCV (RBC) [Entitic vol] 95.4 fL 81-99 [facility] Direct bilirubinOrdered By: Slade Lee on 06-24-2023 Bilirubin.direct [Mass/Vol] 0.22 mg/dL 0.00-0.30 [facility] Hematocrit Auto (Bld) [Volum e fraction]Ordered By: Slade Lee on 06-24-2023 Hematocrit (Bld) [Volume fraction] 45.5 % 37-47 [facility] Laboratory - Chemistry and C hemistry - challengeOrdered By: Slade Lee on 06-24-2023 ALP [Catalytic activity/Vol] 97 U/L 45-117 [facility] ALT [Catalytic activity/Vol] 22 U/L 13-56 [facility] CO2 [Moles/Vol] 25.0 mmol/L 21.0-32.0 [facility] Globulin (S) [Mass/Vol] 3.9 g/dL 2.2-4.2 [facility] Lipase [Catalytic activity/Vol] 37 U/L 13-75 [facility] Comment on above: Please note:LIPASE r evised reference range effective 22. New Lipase methodology. Expected to produce lower values than the previous assay method. NEW Reference Range: 13 - 75 U/L Urea nitrogen/Creatinine [Mass ratio] 15.2 mg/mg 10-20 [facility] Laboratory - Hematology and Cell countsOrdered By: Slade Lee on 06-24-2023 Erythrocyte distribution width (RBC) [Entitic vol] 46.3 fL 35.1-43.9 [facility] Erythrocyte distribution width (RBC) [Ratio] 13.2 % 11.6-14.6 [facility] Immature granulocytes/100 WBC (Bld) 0.400 % 0.0-0.9 [facility] Comment on above: IG% - Immature Granu locytes (promyelocytes, myelocytes and metamyelocytes) > 1% indicates that a LEFT SHIFT is Present. MCH (RBC) [Entitic mass] 31.2 pg 27.0-32.0 [facility] Nucleated RBC/100 WBC (Bld) [Ratio] 0 % 0-5 [facility] MCHC Auto (RBC) [Mass/Vol]Or dered By: Slade Lee on 06-24-2023 MCHC (RBC) [Mass/Vol] 32.7 g/dL 32-36 [facility] No Panel InformationOrdered By: Slade Lee on 06-24-2023 Estimated Creatinine Clearance Calc 44.22 ml/min [facility] Estimated GFR (MDRD) Amer 76 mL/min >60 [facility] Comment on above: GFR Calc Estimated GFR (MDRD) Non-Af Amer 63 mL/min >60 [facility] Comment on above: Non- GFR Calc Troponin I High Sensitivity 6 pg/mL 3.0-54.0 [facility] Comment on above: Please Note: [place] Units and Gender Specific Reference Ranges. For more information see Policy Stat Procedure [place] High Sensitivity Troponin (TNIH) and attachments. Platelets bldOrdered By: Karl Lee on 06-24-2023 Platelets (Bld) [#/Vol] 246 10*3/uL 150-450 [facility] Serum or plasma albumin elidia urement (mass/volume)Ordered By: Slade Lee on 06-24-2023 Albumin [Mass/Vol] 3.3 g/dL 3.2-5.0 [facility] Serum or plasma calcium elidia urement (mass/volume)Ordered By: Slade Lee on 06-24-2023 Calcium [Mass/Vol] 8.9 mg/dL 8.5-10.1 [facility] Serum or plasma creatinine m easurement (mass/volume)Ordered By: Slade Lee on 06-24-2023 Creatinine [Mass/Vol] 0.92 mg/dL 0.55-1.02 [facility] Comment on above: The validity of the calculated GFR & GFRAA in patients over 70 years has not been determined. Clinical correlation is essential. Serum or plasma urea nitroge n measurement (mass/volume)Ordered By: Slade Jesus on 06-24-2023 Urea nitrogen [Mass/Vol] 14 mg/dL 7-18 [facility] Thin prep Papanicolaou smear with manual screeningOrdered By: Slade Lee on 06-24-2023 Thin prep Papanicolaou smear with manual screening 27 U/L 15-37 [facility] Comment on above: Slight Hemolysis, Re sult may be falsely increased. Thin prep Papanicolaou smear with manual screening 6 5-15 [facility] Absolute lymphocyte countOrd ered By: Dian Duron on 06-23-2023 Lymphocytes Auto (Unsp spec) [#/Vol] 0.96 10*3/uL 0.83-4.51 [facility] Basophil percentageOrdered B y: Dian Duron on 06-23-2023 Amylase [Catalytic activity/Vol] 55 U/L 25-115 [facility] Basophils/100 WBC (Bld) 0.5 % 0-1 [facility] Bilirubin [Mass/Vol] 1.00 mg/dL 0.20-1.00 [facility] Comment on above: For patients on eltr ombopag therapy, use of Dimension [place] TBIL is not recommended. Chloride [Moles/Vol] 105 mmol/L 98-107 [facility] Eosinophils/100 WBC (Bld) 0.7 % 0-5 [facility] Glucose [Mass/Vol] 108 mg/dL 74-106 [facility] Comment on above: Fasting Glucose resu lt from 100 to 125 mg/dL suggests IMPAIRED HOMEOSTASIS per A.D.A. criteria. Neutrophils (Bld) [#/Vol] 4.4 10*3/uL 2.0-7.7 [facility] Neutrophils/100 WBC (Bld) 74.0 % 47-70 [facility] Potassium [Moles/Vol] 3.7 mmol/L 3.5-5.1 [facility] Protein [Mass/Vol] 7.2 g/dL 6.4-8.2 [facility] Sodium [Moles/Vol] 143 mmol/L 136-145 [facility] WBC (Bld) [#/Vol] 6.0 10*3/uL 4.4-11.0 [facility] Blood erythrocytes count (nu mber/volume)Ordered By: Dian Duron on 06-23-2023 RBC (Bld) [#/Vol] 4.89 10*6/uL 4.2-5.4 [facility] Blood hemoglobin measurement (mass/volume)Ordered By: Dian Duron on 06-23-2023 Hemoglobin (Bld) [Mass/Vol] 15.8 g/dL 12.0-15.0 [facility] Blood lymphocytes/100 leukoc ytesOrdered By: Dian Duron on 06-23-2023 Lymphocytes/100 WBC (Bld) 16.1 % 19-41 [facility] Blood monocytes/100 leukocyt esOrdered By: Dian Duron on 06-23-2023 Monocytes/100 WBC (Bld) 8.2 % 0-10 [facility] Blood platelet mean volumeOr dered By: Dian Duron on 06-23-2023 Platelet mean volume (Bld) [Entitic vol] 10.9 fL 6.2-12.0 [facility] Determination of erythrocyte mean corpuscular volume (MCV)Ordered By: Dian Duron on 06-23-2023 MCV (RBC) [Entitic vol] 94.1 fL 81-99 [facility] Hematocrit Auto (Bld) [Volum e fraction]Ordered By: Dian Duron on 06-23-2023 Hematocrit (Bld) [Volume fraction] 46.0 % 37-47 [facility] Laboratory - Chemistry and C hemistry - challengeOrdered By: Dian Duron on 06-23-2023 ALP [Catalytic activity/Vol] 111 U/L 45-117 [facility] ALT [Catalytic activity/Vol] 23 U/L -56 [facility] CO2 [Moles/Vol] 28.0 mmol/L 21.0-32.0 [facility] Globulin (S) [Mass/Vol] 3.6 g/dL 2.2-4.2 [facility] Lipase [Catalytic activity/Vol] 34 U/L - [facility] Comment on above: Please note:LIPASE r evised reference range effective 22. New Lipase methodology. Expected to produce lower values than the previous assay method. NEW Reference Range: - 75 U/L Urea nitrogen/Creatinine [Mass ratio] 14.8 mg/mg 10-20 [facility] Laboratory - Hematology and Cell countsOrdered By: Dian Duron on 06-23-2023 Erythrocyte distribution width (RBC) [Entitic vol] 45.2 fL 35.1-43.9 [facility] [facility] Erythrocyte distribution width (RBC) [Ratio] 13.0 % 11.6-14.6 [facility] Immature granulocytes/100 WBC (Bld) 0.500 % 0.0-0.9 [facility] Comment on above: IG% - Immature Granu locytes (promyelocytes, myelocytes and metamyelocytes) > 1% indicates that a LEFT SHIFT is Present. MCH (RBC) [Entitic mass] 32.3 pg 27.0-32.0 [facility] Nucleated RBC/100 WBC (Bld) [Ratio] 0 % 0-5 [facility] MCHC Auto (RBC) [Mass/Vol]Or dered By: Dian Duron on 06-23-2023 MCHC (RBC) [Mass/Vol] 34.3 g/dL 32-36 [facility] No Panel InformationOrdered By: Dian Duron on 06-23-2023 Estimated GFR (MDRD) Amer 74 mL/min >60 [facility] Comment on above: GFR Calc Estimated GFR (MDRD) Non-Af Amer 61 mL/min >60 [facility] Comment on above: Non- GFR Calc Platelets bldOrdered By: Aleksandr Duron on 06-23-2023 Platelets (Bld) [#/Vol] 232 10*3/uL 150-450 [facility] Serum or plasma albumin elidia urement (mass/volume)Ordered By: Dian Duron on 06-23-2023 Albumin [Mass/Vol] 3.6 g/dL 3.2-5.0 [facility] Serum or plasma albumin/glob ulin mass ratioOrdered By: Dian Duron on 06-23-2023 Albumin/Globulin [Mass ratio] 1.0 {ratio} 0.9-2.4 [facility] Serum or plasma calcium elidia urement (mass/volume)Ordered By: Dian Duron on 06-23-2023 Calcium [Mass/Vol] 9.0 mg/dL 8.5-10.1 [facility] Serum or plasma creatinine m easurement (mass/volume)Ordered By: Dian Duron on 06-23-2023 Creatinine [Mass/Vol] 0.94 mg/dL 0.55-1.02 [facility] Comment on above: The validity of the calculated GFR & GFRAA in patients over 70 years has not been determined. Clinical correlation is essential. Serum or plasma urea nitroge n measurement (mass/volume)Ordered By: Dian Duron on 06-23-2023 Urea nitrogen [Mass/Vol] 14 mg/dL 7-18 [facility] Thin prep Papanicolaou smear with manual screeningOrdered By: Dian Duron on 06-23-2023 Thin prep Papanicolaou smear with manual screening 21 U/L 15-37 [facility] Thin prep Papanicolaou smear with manual screening 10 5-15 [facility] Urinalysis, Office ([id number])Or dered By: Krista Castillo on 06-23-2023 Bilirubin [...] Medicine Work Phone: MICROALB;CREAT RATION, RAND UR ([id number])Ordered By: [employer] Assembler on 02-20-2023 Albumin DL <= 20 mg/L (U) [Mass/Vol] 24.3 ug/mL Normal [facility]; [facility] Work Phone: Albumin/Creatinine (U) [Mass ratio] 14 {mg/g_creat} Normal 0-29 [facility]; [facility] Work Phone: Creatinine (U) [Mass/Vol] 174.0 mg/dL Normal [facility]; [facility] Work Phone: CBC, PLATELETS & AUT DIFF ([phone])Ordered By: [employer] Assembler on 08-29-2022 Basophils (Bld) [#/Vol] 0.0 10*3/uL [...] MCHC (RBC) [Mass/Vol] 33.6 g/dL Normal 31.5-35.7 [facility] prehensive Internal Medicine; [facility] Work [...] Phone: Neutrophils/100 WBC (Bld) 63 % Normal [facility]; [facility] Work Phone: Platelets (Bld) [#/Vol] 195 10*3/uL Normal 150-450 [facility]; [facility] Work Phone: RBC (Bld) [#/Vol] 4.77 10*6/uL Normal 3.77-5.[address] [facility] ehensive Internal Medicine; [facility] Work Phone: WBC (Bld) [#/Vol] 4.6 10*3/uL Normal 3.4-10.8 [facility]; [facility] Work Phone: FREE TRIIDOTHYRONINE (T3) ([phone])Ordered By: [employer] Assembler on 08-29-2022 Free T3 [Mass/Vol] 3.0 pg/mL Normal 2.0-4.4 [facility]; [facility] Medicine Work Phone: LIPID PANEL ([phone])Ordered B y: [employer]er on 08-29-2022 Cholesterol [Mass/Vol] 176 mg/dL Normal 100-199 [facility]; [facility] Work Phone: Cholesterol in HDL [Mass/Vol] 65 mg/dL Normal [facility]; [facility] Work Phone: Triglyceride [Mass/Vol] 154 mg/dL Abnormal 0-149 [facility]; [facility] Work Phone: LIPID PANEL ([phone]) 26 mg/dL Normal 5-40 [facility]; [facility] Work Phone: LIPID PANEL ([id number]) 85 mg/dL Normal 0-99 [facility]; [facility] Work Phone: LIPID PANEL ([id number]) 1.3 {ratio} Normal 0.0-3.2 [facility] Internal Medicine; [facility] Medicine Work Phone: METABOLIC PANEL, COMPREHENSI VE ([id number])Ordered By: [employer] Assembler on 08-29-2022 Albumin [Mass/Vol] 3.9 g/dL Normal 3.7-4.7 [facility] Internal [facility]; [facility] Work Phone: Albumin/Globulin [Mass ratio] 1.6 {ratio} Normal 1.2-2.2 [facility]; [facility] Work Phone: ALP [Catalytic activity/Vol] 96 U/L Normal 44-121 [facility]; [facility] Work Phone: ALT [Catalytic activity/Vol] 15 U/L Normal 0-32 [facility]; [facility] Work Phone: AST [Catalytic activity/Vol] 22 U/L Normal 0-40 [facility]; [facility] Work Phone: Bilirubin [Mass/Vol] 0.7 mg/dL Normal 0.0-1.2 [facility] rehensive Internal Medicine; [facility] Medicine Work Phone: Calcium [Mass/Vol] 9.4 mg/dL Normal 8.7-10.3 [facility]; [facility] Work Phone: Chloride [Moles/Vol] 105 mmol/L Normal 96-106 [facility] Work Phone: CO2 [Moles/Vol] 25 mmol/L Normal 20-29 [facility] Internal Medicine; [facility] Work Phone: Creatinine [Mass/Vol] 0.82 mg/dL Normal 0.57-1.00 [facility] Internal Medicine; [facility] Medicine Work Phone: Globulin (S) [Mass/Vol] 2.4 g/dL Normal 1.5-4.5 [facility] Internal Medicine; [facility] Work Phone: Glucose [Mass/Vol] 89 mg/dL Normal 70-99 [facility]; [facility] Work Phone: Potassium [Moles/Vol] 4.1 mmol/L Normal 3.5-5.2 [facility] Internal Medicine; [facility] Medicine Work Phone: Protein [Mass/Vol] 6.3 g/dL Normal 6.0-8.5 [facility]; [facility] Work Phone: Sodium [Moles/Vol] 142 mmol/L Normal 134-144 [facility]; [facility] Work Phone: Urea nitrogen [Mass/Vol] 15 mg/dL Normal 8-27 [facility]; [facility] Work Phone: Urea nitrogen/Creatinine [Mass ratio] 18 mg/mg Normal 12-28 [facility]; [facility] Work Phone: METABOLIC PANEL, COMPREHENSIVE ([phone]) 74 mL/min/1.73 Normal [facility] Internal Medicine; [facility] Medicine Work Phone: T4, FREE (THYROXINE) ([id number]) Ordered By: [employer] Assembler on 08-29-2022 Free T4 [Mass/Vol] 0.85 ng/dL Normal 0.82-1.77 [facility]; [facility] Work Phone: TSH (THYROID STIMULATING HOR CAM) ([id number])Ordered By: [employer] Assembler on 08-29-2022 TSH Qn 1.090 {uIU/mL} Normal 0.450-4.50 0 [facility]; [facility] Work Phone: Erythrocyte sedimentation ra grace 01-27-2022 ESR (Bld) [Velocity] 19 mm/h 0-30 [facility] Work Phone: No Panel Informationon 01-27 Estimated GFR (MDRD) Amer 80 mL/min >60 [facility] Work Phone: Comment on above: GFR Calc Estimated GFR (MDRD) Non-Af Amer 66 mL/min >60 [facility] Work Phone: Comment on above: Non- GFR Calc Serum or plasma C reactive p rotein measurement (mass/volume)on 01-27-2022 CRP [Mass/Vol] 3.98 mg/L 0.0-3.0 [facility] Work Phone: Comment on above: C-Reactive Protein ( CRP) provides useful information for thediagnosis, therapy and monitoring of inflammatory processesand associated diseases. For the evaluation of Relative Riskfor Cardiovascular Disease, a High Sensitivity CRP (HSCRP)should be ordered. Serum or plasma creatinine m easurement (mass/volume)on 01-27-2022 Creatinine [Mass/Vol] 0.88 mg/dL 0.55-1.02 [facility] Work Phone: Comment on above: The validity of the calculated GFR & GFRAA in patients over 70 years has not been determined. Clinical correlation is essential. Basophil percentageon 2021 Chloride [Moles/Vol] 107 mmol/L 98-107 [facility] Work Phone: Glucose [Mass/Vol] 108 mg/dL 74-106 [facility] Work Phone: Comment on above: Fasting Glucose resu lt from 100 to 125 mg/dL suggests IMPAIRED HOMEOSTASIS per A.D.A. criteria. Potassium [Moles/Vol] 3.6 mmol/L 3.5-5.1 [facility] Work Phone: Sodium [Moles/Vol] 143 mmol/L 136-145 [facility] Work Phone: WBC (Bld) [#/Vol] 6.6 10*3/uL 4.4-11.0 [facility] Work Phone: Blood erythrocytes count (nu mber/volume)on 10-22-2021 RBC (Bld) [#/Vol] 4.39 10*6/uL 4.2-5.4 [facility] Work Phone: Blood hemoglobin measurement (mass/volume)on 10-22-2021 Hemoglobin (Bld) [Mass/Vol] 14.0 g/dL 12.0-15.0 [facility] Work Phone: Blood platelet mean volumeon 10-22-2021 Platelet mean volume (Bld) [Entitic vol] 10.7 fL 6.2-12.0 [facility] Work Phone: Determination of erythrocyte mean corpuscular volume (MCV)on 10-22-2021 MCV (RBC) [Entitic vol] 95.0 fL 81-99 [facility] Work Phone: Hematocrit Auto (Bld) [Volum e fraction]on 10-22-2021 Hematocrit (Bld) [Volume fraction] 41.7 % 37-47 [facility] Work Phone: Laboratory - Chemistry and C hemistry - challengeon 10-22-2021 CO2 [Moles/Vol] 30.0 mmol/L 21.0-32.0 [facility] Work Phone: Magnesium [Mass/Vol] 1.9 mg/dL [facility] Work Phone: Comment on above: Performed at: [address] [id number] Director: Itz Hartley PhD, Phone: [phone] T4 [Mass/Vol] 7.2 ug/dL 4.8-13.9 [facility] Work Phone: Urea nitrogen/Creatinine [Mass ratio] 21.4 mg/mg 10-20 [facility] Work Phone: Laboratory - Hematology and Cell countson 10-22-2021 Erythrocyte distribution width (RBC) [Entitic vol] 47.0 fL 35.1-43.9 [facility] Work Phone: Erythrocyte distribution width (RBC) [Ratio] 13.4 % 11.6-14.6 [facility] Work Phone: MCH (RBC) [Entitic mass] 31.9 pg 27.0-32.0 [facility] Work Phone: MCHC Auto (RBC) [Mass/Vol]on 10-22-2021 MCHC (RBC) [Mass/Vol] 33.6 g/dL 32-36 [facility] Work Phone: No Panel Informationon 10-22 Estimated GFR (MDRD) Amer 85 mL/min >60 [facility] Work Phone: Comment on above: GFR Calc Estimated GFR (MDRD) Non-Af Amer 70 mL/min >60 [facility] Work Phone: Comment on above: Non- GFR Calc Thyroid Stimulating Hormone (TSH) 0.53 uIU/mL 0.358-3.74 [facility] Work Phone: Platelets bldon 10-22-2021 Platelets (Bld) [#/Vol] 218 10*3/uL 150-450 [facility] Work Phone: Serum or plasma calcium elidia urement (mass/volume)on 10-22-2021 Calcium [Mass/Vol] 9.4 mg/dL 8.5-10.1 [facility] Work Phone: Serum or plasma creatinine m easurement (mass/volume)on 10-22-2021 Creatinine [Mass/Vol] 0.84 mg/dL 0.55-1.02 [facility] Work Phone: Comment on above: The validity of the calculated GFR & GFRAA in patients over 70 years has not been determined. Clinical correlation is essential. Serum or plasma urea nitroge n measurement (mass/volume)on 10-22-2021 Urea nitrogen [Mass/Vol] 18 mg/dL 7-18 [facility] Work Phone: Thin prep Papanicolaou smear with manual screeningon 10-22-2021 Thin prep Papanicolaou smear with manual screening 6 5-15 [facility] Work Phone: LIPID PANEL ([id number])Ordered B y: [employer] As[employer]er on 08-19-2021 Cholesterol [Mass/Vol] 145 mg/dL Normal 100-199 [facility]; [facility] Work Phone: Cholesterol in HDL [Mass/Vol] 48 mg/dL Normal [facility]; [facility] Work Phone: Triglyceride [Mass/Vol] 100 mg/dL Normal 0-149 [facility]; [facility] Work Phone: LIPID PANEL ([id number]) 19 mg/dL Normal 5-40 [facility]; [facility] Work Phone: LIPID PANEL ([id number]) 78 mg/dL Normal 0-99 [facility]; [facility] Work Phone: LIPID PANEL ([id number]) 1.6 {ratio} Normal 0.0-3.2 [facility]; [facility] Work Phone: HPV Comprehensive ([id number])Ord ered By: [employer] Assembler on 05-26-2021 [facility] ([id number]) SPRCS Normal [facility]; [facility] Work Phone: HPV Comprehensive ([id number]) . Normal [facility]; [facility] Work Phone: HPV [facility] ([id number]) PAPSMR Normal [facility]; [facility] Work Phone: HPV Comprehensive ([id number]) Negative Normal [facility]; [facility] Work Phone: CBC, Platelets & Auto Diff ( [id number])Ordered By: [employer] Assembler on 05-11-2021 Basophils (Bld) [#/Vol] 0.0 10*3/uL [...] MCHC (RBC) [Mass/Vol] 33.0 g/dL Normal 31.5-35.7 [facility] prehensive Internal Medicine; [facility] Work [...] RBC (Bld) [#/Vol] 4.82 10*6/uL Normal 3.77-5.[address] [facility] ehensive Internal Medicine; [facility] Work Phone: WBC (Bld) [#/Vol] 5.9 10*3/uL Normal 3.4-10.8 [facility] Work Phone: Metabolic Panel, Comprehensi ve ([id number])Ordered By: [employer] Assembler on 05-11-2021 Albumin [Mass/Vol] 4.2 g/dL Normal 3.7-4.[address] [facility] hensive Internal Medicine; [facility] Work Phone: Albumin/Globulin [Mass ratio] 1.6 {ratio} Normal 1.2-2.2 [facility]; [facility] Work Phone: ALP [Catalytic activity/Vol] 104 U/L Normal 48-121 [facility]; [facility] Work Phone: ALT [Catalytic activity/Vol] 15 U/L Normal 0-32 [facility]; [facility] Work Phone: AST [Catalytic activity/Vol] 25 U/L Normal 0-40 [facility]; [facility] Work Phone: Bilirubin [Mass/Vol] 0.6 mg/dL Normal 0.0-1.2 [facility] Internal Medicine; [facility] Work Phone: Calcium [Mass/Vol] 10.0 mg/dL Normal 8.7-10.3 [facility]; [facility] Work Phone: Chloride [Moles/Vol] 101 mmol/L Normal 96-106 [facility]; [facility] Work Phone: CO2 [Moles/Vol] 27 mmol/L Normal 20-29 [facility]; [facility] Work Phone: Creatinine [Mass/Vol] 0.95 mg/dL Normal 0.57-1.00 [facility]; [facility] Work Phone: GFR/1.73 sq M.predicted among blacks CKD-EPI (S/P/Bld) [Vol rate/Area] 68 mL/min/1.73 Normal [facility]; [facility] Work Phone: GFR/1.73 sq M.predicted among non-blacks CKD-EPI (S/P/Bld) [Vol rate/Area] 59 mL/min/1.73 Abnormal [facility]; [facility] Work Phone: Globulin (S) [Mass/Vol] 2.7 g/dL Normal 1.5-4.5 [facility]; [facility] Work Phone: Glucose [Mass/Vol] 90 mg/dL Normal 65-99 [facility]; [facility] Work Phone: Potassium [Moles/Vol] 4.3 mmol/L Normal 3.5-5.2 [facility] Internal Medicine; [facility] Work Phone: Protein [Mass/Vol] 6.9 g/dL Normal 6.0-8.5 [facility]; [facility] Work Phone: Sodium [Moles/Vol] 139 mmol/L Normal 134-144 [facility]; [facility] Work Phone: Urea nitrogen [Mass/Vol] 15 mg/dL Normal 8-27 [facility]; [facility] Work Phone: Urea nitrogen/Creatinine [Mass ratio] 16 mg/mg Normal 12-28 [facility]; [facility] Work Phone: TSH ([id number])Ordered By: NP [employer] Billing Machine Operator on 05-11-2021 TSH Qn 0.737 {uIU/mL} Normal 0.450-4.50 0 [facility]; [facility] Work Phone: URINE ANTHONY CULTURE (MARIA T COL COUNT) ([id number])Ordered By: [employer] Assembler on 05-11-2021 Bacteria identified Cx Nom (U) Final report Normal [facility]; [facility] Work Phone: Bacteria identified Cx Nom (U) MUG Normal [facility]; [facility] Work Phone: Urinalysis, Office ([phone])Or dered By: Maria Luisa Villegas on 05-11-2021 [...] Medicine Work Phone: URINE ANTHONY CULTURE-IDENTIFICA TN ([id number])Ordered By: [employer] Assembler on 12-23-2020 Bacteria identified Cx Nom (U) Final report Normal [facility]; [facility] Work Phone: Comment on above: PERFORMED BY: [employer] [place] [id number] Information: SRC:UR Bacteria identified Cx Nom (U) MUG Normal [facility]; [facility] Work Phone: Comment on above: Mixed urogenital frida ra4,000 Colonies/mL PERFORMED BY: [employer] [place] [id number] Information: SRC:UR Urinalysis, Office ([id number])Or dered By: Preston Kang on 12-23-2020 Bilirubin [...] Phone: Nitrite Ql (U) Negative Normal [facility]; [facility] Work Phone: [...] Phone: CBC, Platelets & Auto Diff ( [phone])Ordered By: [employer] Assembler on 11-04-2020 Basophils (Bld) [#/Vol] 0.0 {x10E3/uL} Normal 0.0-0.2 [facility]; [facility] Work Phone: Comment on above: November 2020; PATIENT NOT FASTINGPERFORMED BY: [id number] [facility] [id number] Basophils (Bld) [#/Vol] 0.0 10*3/uL Normal 0.0-0.2 [facility]; [facility] Work Phone: Basophils/100 WBC (Bld) 1 % Normal [facility]; [facility] Work Phone: Comment on above: November 2020; PATIENT NOT FASTINGPERFORMED BY: [id number] [facility] [id number] Eosinophils (Bld) [#/Vol] 0.1 {x10E3/uL} Normal 0.0-0.4 [facility]; [facility] Work Phone: Comment on above: November 2020; PATIENT NOT FASTINGPERFORMED BY: [email or web address] [facility] [id number] Eosinophils (Bld) [#/Vol] 0.1 10*3/uL Normal 0.0-0.4 [facility]; [facility] Work Phone: Eosinophils/100 WBC (Bld) 2 % Normal [facility]; [facility] Work Phone: Comment on above: November 2020; PATIENT NOT FASTINGPERFORMED BY: PATRIA [id number] [facility] [id number] Erythrocyte distribution width (RBC) [Ratio] 13.1 % Normal 11.7-15.4 [facility]; [facility] Work Phone: Comment on above: November 2020; PATIENT NOT FASTINGPERFORMED BY: PATRIA [facility] [id number] [facility] [id number] Hematocrit (Bld) [Volume fraction] 44.2 % Normal 34.0-46.6 [facility]; [facility] Work Phone: Comment on above: November 2020; PATIENT NOT FASTINGPERFORMED BY: PATRIA [facility] [id number] [facility] [id number] Hemoglobin (Bld) [Mass/Vol] 14.9 g/dL Normal 11.1-15.9 [facility]; [facility] Work Phone: Comment on above: November 2020; PATIENT NOT FASTINGPERFORMED BY: PATRIA [facility] [id number] [facility] [id number] Immature granulocytes (Bld) [#/Vol] 0.1 {x10E3/uL} Normal 0.0-0.1 [facility]; [facility] Work Phone: Comment on above: November 2020; PATIENT NOT FASTINGPERFORMED BY: CB [facility] [id number] [facility] [id number] Immature granulocytes (Bld) [#/Vol] 0.1 10*3/uL Normal 0.0-0.1 [facility]; [facility] Work Phone: Immature granulocytes/100 WBC (Bld) 1 % Normal [facility]; [facility] Work Phone: Comment on above: November 2020; PATIENT NOT FASTINGPERFORMED BY: CB [facility] [id number] [facility] [id number] Lymphocytes (Bld) [#/Vol] 1.6 {x10E3/uL} Normal 0.7-3.1 [facility]; [facility] Work Phone: Comment on above: November 2020; PATIENT NOT FASTINGPERFORMED BY: PATRIA [facility] [id number] [facility] [place] [id number] Lymphocytes (Bld) [#/Vol] 1.6 10*3/uL Normal 0.7-3.1 [facility]; [facility] Work Phone: Lymphocytes/100 WBC (Bld) 29 % Normal [facility]; [facility] Work Phone: Comment on above: November 2020; PATIENT NOT FASTINGPERFORMED BY: CB [facility] [id number] [facility] [id number] MCH (RBC) [Entitic mass] 32.6 pg Normal 26.6-33.0 [facility]; [facility] Work Phone: Comment on above: November 2020; PATIENT NOT FASTINGPERFORMED BY: CB [facility] [id number] [place] [facility] [place] [id number] MCHC (RBC) [Mass/Vol] 33.7 g/dL Normal 31.5-35.7 [facility] prehensive Internal Medicine; [facility] Work Phone: Comment on above: November 2020; PATIENT NOT FASTINGPERFORMED BY: CB [facility] [id number] [place] [facility] [place] [id number] MCV (RBC) [Entitic vol] 97 fL Normal 79-97 [facility]; [facility] Work Phone: Comment on above: November 2020; PATIENT NOT FASTINGPERFORMED BY: CB [facility] [id number] [place] [facility] [place] [id number] Monocytes (Bld) [#/Vol] 0.6 {x10E3/uL} Normal 0.1-0.9 [facility]; [facility] Work Phone: Comment on above: November 2020; PATIENT NOT FASTINGPERFORMED BY: CB [facility] [id number] [facility] [id number] Monocytes (Bld) [#/Vol] 0.6 10*3/uL Normal 0.1-0.9 [facility]; [facility] Work Phone: Monocytes/100 WBC (Bld) 10 % Normal [facility]; [facility] Work Phone: Comment on above: November 2020; PATIENT NOT FASTINGPERFORMED BY: PATRIA Lab[facility]odesiree [id number] [place] [facility] [place] [id number] Neutrophils (Bld) [#/Vol] 3.1 {x10E3/uL} Normal 1.4-7.0 [facility] Internal Medicine; [facility] Work Phone: Comment on above: November 2020; PATIENT NOT FASTINGPERFORMED BY: PATRIA Silverio[address] [facility] Hospitalbl[facility] [place] [id number] Neutrophils (Bld) [#/Vol] 3.1 10*3/uL Normal 1.4-7.0 [facility] Internal Medicine; [facility] Work Phone: Neutrophils/100 WBC (Bld) 57 % Normal [facility] Internal Medicine; [facility] Work Phone: Comment on above: November 2020; PATIENT NOT FASTINGPERFORMED BY: PATRIA Silverio6370 [facility] [id number] Platelets (Bld) [#/Vol] 186 {x10E3/uL} Normal 150-450 [facility] Internal Medicine; [facility] Work Phone: Comment on above: November 2020; PATIENT NOT FASTINGPERFORMED BY: PATRIA LabSaint [facility] Atjwma9050 [facility] Centerin [place] [id number] Platelets (Bld) [#/Vol] 186 10*3/uL Normal 150-450 [facility] Internal Medicine; [facility] Work Phone: RBC (Bld) [#/Vol] 4.57 {x10E6/uL} Normal 3.77-5.28 [facility] Internal Medicine; [facility] Work Phone: Comment on above: CBC results reported were obtained after the specimen had been warmedto 37 degrees C. This may indicate the presence of Cold Agglutinins. November 2020; PATIENT NOT FASTINGPERFORMED BY: Adspringr6370 [employer] [place] [id number] RBC (Bld) [#/Vol] 4.57 10*6/uL Normal 3.77-5.28 [facility]ensive Internal Medicine; [facility] Work Phone: WBC (Bld) [#/Vol] 5.5 {x10E3/uL} Normal 3.4-10.8 [facility]; [facility] Work Phone: Comment on above: November 2020; PATIENT NOT FASTINGPERFORMED BY: Adspringr6370 [employer] [place] [id number] WBC (Bld) [#/Vol] 5.5 10*3/uL Normal 3.4-10.8 [facility] Internal Medicine; [facility] Work Phone: VITAMIN B12 AND FOLATES ([phone] [id number])Ordered By: [employer] Motor Assembler on 11-04-2020 Cobalamin (Vitamin B12) [Mass/Vol] 749 pg/mL Normal 232-1245 [facility]; [facility] Work Phone: Comment on above: November 2020; PATIENT NOT FASTINGPERFORMED BY: Adspringr6370 [facility] VideoFry[facility] [id number] Folate [Mass/Vol] 14.1 ng/mL [facility]; [facility] Work Phone: Comment on above: A serum folate chago ntration of less than 3.1 ng/mL isconsidered to represent clinical deficiency. November 2020; PATIENT NOT FASTINGPERFORMED BY: Adspringr6370 [employer] [place] [id number] CBC & PLATELETS (AUTO) (8502 7)Ordered By: [employer] Assembler on 08-05-2020 Erythrocyte distribution width (RBC) [Ratio] 14.3 % Normal 11.7-15.4 [facility] Work Phone: Comment on above: PATIENT WAS FASTINGP ERFORMED BY: BringIt70 homedeco2u [place] [id number] Hematocrit (Bld) [Volume fraction] 46.0 % Normal 34.0-46.6 [facility] Work Phone: Comment on above: PATIENT WAS FASTINGP ERFORMED BY: PATRIA LabCo Ytfery2646 [facility] [id number] Hemoglobin (Bld) [Mass/Vol] 14.9 g/dL Normal 11.1-15.9 [facility] Work Phone: Comment on above: PATIENT WAS FASTINGP ERFORMED BY: PATRIA [facility] Xwvqmc8488 [facility] [id number] MCH (RBC) [Entitic mass] 32.2 pg Normal 26.6-33.0 [facility] Internal Medicine Work Phone: Comment on above: PATIENT WAS FASTINGP ERFORMED BY: PATRIA LabCo Aegtls4494 [facility] [id number] MCHC (RBC) [Mass/Vol] 32.4 g/dL Normal 31.5-35.7 [facility] Internal Medicine Work Phone: Comment on above: PATIENT WAS FASTINGP ERFORMED BY: PATRIA LabCo Ggoatg4491 [facility] [id number] MCV (RBC) [Entitic vol] 99 fL Abnormal 79-97 [facility] Internal Medicine Work Phone: Comment on above: PATIENT WAS FASTINGP ERFORMED BY: PATRIA LabCo Dqbjji7153 [facility] [id number] Platelets (Bld) [#/Vol] 187 {x10E3/uL} Normal 150-450 [facility] Work Phone: Comment on above: PATIENT WAS FASTINGP ERFORMED BY: PATRIA [facility] Aafazq5226 [facility] [id number] Platelets (Bld) [#/Vol] 187 10*3/uL Normal 150-450 [facility]; [facility] Work Phone: RBC (Bld) [#/Vol] 4.63 {x10E6/uL} Normal 3.77-5.28 [facility] Internal Medicine Work Phone: Comment on above: CBC results reported were obtained after the specimen had been warmedto 37 degrees C. This may indicate the presence of Cold Agglutinins. PATIENT WAS FASTINGP ERFORMED BY: General Blood6370 [facility] [id number] RBC (Bld) [#/Vol] 4.63 10*6/uL Normal 3.77-5.28 [facility] Internal Medicine; [facility] Work Phone: WBC (Bld) [#/Vol] 5.1 {x10E3/uL} Normal 3.4-10.8 [facility] Internal Medicine Work Phone: Comment on above: Verified by repeat analysis PATIENT WAS FASTINGP ERFORMED BY: General Blood6370 [facility] [id number] WBC (Bld) [#/Vol] 5.1 10*3/uL Normal 3.4-10.8 [facility] Internal Medicine; [facility] Work Phone: HEPATITIS C ANTIBODY (16429) Ordered By: [employer] Assembler on 08-05-2020 HCV Ab Signal/Cutoff IA [Rel units/Vol] {ratio} Normal 0.0-0.9 [facility] Internal Medicine Work Phone: Comment on above: Negative: < 0.8 Inde terminate: 0.8 - 0.9 Positive: > 0.9 . The CDC recommends that a positive HCV antibody result be followed up with a HCV Nucleic Acid Amplification test (138578). 05-13-2020 please draw with next blood draw; PATIENT WAS FASTINGPERFORMED BY: General Blood6370 [facility] [id number] HCV Ab Signal/Cutoff IA [Rel units/Vol] {ratio} Normal 0.0-0.9 [facility] Internal Medicine; [facility] Work Phone: LIPID PANEL (53136)Ordered B y: [employer]er on 08-05-2020 Cholesterol [Mass/Vol] 176 mg/dL Normal 100-199 [facility] Internal Medicine Work Phone: Comment on above: PATIENT WAS FASTINGP ERFORMED BY: PATRIA LabCodesiree Arzbrg[address] [facility]in [place] [id number] Cholesterol in HDL [Mass/Vol] 58 mg/dL Normal [facility] Work Phone: Comment on above: PATIENT WAS FASTINGP ERFORMED BY: PATRIA LabCodesiree AlvarezEgbfgz6[address] [facility]in [place] [id number] Cholesterol in LDL/Cholesterol in HDL [Mass ratio] 1.5 {ratio} Normal 0.0-3.2 [facility] Work Phone: Comment on above: LDL/HDL Ratio Men Wo men 1/2 Avg.Risk 1.0 1.5 Avg.Risk 3.6 3.2 2X Avg.Risk 6.2 5.0 3X Avg.Risk 8.0 6.1 PATIENT WAS FASTINGP ERFORMED BY: PATRIA LabCodesiree AlvarezZhyneq5350 [facility] [id number] Triglyceride [Mass/Vol] 184 mg/dL Abnormal 0-149 [facility] Work Phone: Comment on above: PATIENT WAS FASTINGP ERFORMED BY: PATRIA LabCodesiree Ucuwbq7187 [facility] [id number] LIPID PANEL (80150) 87 mg/dL Normal 0-99 [facility] Internal Medicine Work Phone: Comment on above: PATIENT WAS FASTINGP ERFORMED BY: PATRIA LabCo Enwyme9722 [facility] [id number] LIPID PANEL (51205) 31 mg/dL Normal 5-40 [facility]ensive Internal Medicine Work Phone: Comment on above: PATIENT WAS FASTINGP ERFORMED BY: PATRIA [facility] Vpawra8078 [facility] [id number] LIPID PANEL (95211) 1.5 {ratio} Normal 0.0-3.2 [facility]; [facility] Work Phone: METABOLIC PANEL, COMPREHENSI VE (52330)Ordered By: [employer] Assembler on 08-05-2020 Albumin [Mass/Vol] 3.8 g/dL Normal 3.7-4.7 [facility] Internal Medicine Work Phone: Comment on above: PATIENT WAS FASTINGP ERFORMED BY: PATRIA [facility] Ffhwfo3105 [address] RoadDublin [place] [id number] Albumin/Globulin [Mass ratio] 1.5 {ratio} Normal 1.2-2.2 [facility] Work Phone: Comment on above: PATIENT WAS FASTINGP ERFORMED BY: CB [facility] Pmtzpb0388 [address] RoadDublin [place] [id number] ALP [Catalytic activity/Vol] 96 [iU]/L Normal 39-117 [facility] Work Phone: Comment on above: PATIENT WAS FASTINGP ERFORMED BY: PATRIA [facility] Dadxvo6891 [address] RoadDublin [place] [id number] ALP [Catalytic activity/Vol] 96 U/L Normal 39-117 [facility]; [facility] Work Phone: ALT [Catalytic activity/Vol] 13 [iU]/L Normal 0-32 [facility] Work Phone: Comment on above: PATIENT WAS FASTINGP ERFORMED BY: PATRIA [facility] Jpvaku6556 [address] RoadDublin [place] [id number] ALT [Catalytic activity/Vol] 13 U/L Normal 0-32 [facility]; [facility] Work Phone: AST [Catalytic activity/Vol] 22 [iU]/L Normal 0-40 [facility] Work Phone: Comment on above: PATIENT WAS FASTINGP ERFORMED BY: PATRIA [facility] Vfacrp1266 [address] RoadDublin [place] [id number] AST [Catalytic activity/Vol] 22 U/L Normal 0-40 [facility]; [facility] Work Phone: Bilirubin [Mass/Vol] 0.6 mg/dL Normal 0.0-1.2 [facility] Internal Medicine Work Phone: Comment on above: PATIENT WAS FASTINGP ERFORMED BY: PATRIA [facility] Gtvzzl5746 [address] RoadDublin [place] [id number] Calcium [Mass/Vol] 8.9 mg/dL Normal 8.7-10.3 [facility] Internal Medicine Work Phone: Comment on above: PATIENT WAS FASTINGP ERFORMED BY: PATRIA [facility] Kyoqzv7126 [address] RoadDublin [place] [id number] Chloride [Moles/Vol] 104 mmol/L Normal 96-106 [facility] Work Phone: Comment on above: PATIENT WAS FASTINGP ERFORMED BY: CB [facility] Xzimza2020 [address] RoadDublin [place] [id number] CO2 [Moles/Vol] 26 mmol/L Normal 20-29 [facility] Internal Medicine Work Phone: Comment on above: PATIENT WAS FASTINGP ERFORMED BY: PATRIA [facility] Rexipx5032 [address] RoadDublin [place] [id number] Creatinine [Mass/Vol] 0.90 mg/dL Normal 0.57-1.00 [facility] Internal Medicine Work Phone: Comment on above: PATIENT WAS FASTINGP ERFORMED BY: PATRIA [facility] Jfebnr4827 [address] RoadDublin [place] [id number] GFR/1.73 sq M predicted among blacks CKD-EPI (S/P/Bld) [Vol rate/Area] 73 mL/min/1.73 Normal [facility] Work Phone: Comment on above: PATIENT WAS FASTINGP ERFORMED BY: PATRIA [facility] Stsmvh6603 [address] RoadDublin [place] [id number] GFR/1.73 sq M predicted among non-blacks CKD-EPI (S/P/Bld) [Vol rate/Area] 63 mL/min/1.73 Normal [facility] Work Phone: Comment on above: PATIENT WAS FASTINGP ERFORMED BY: PATRIA [facility] Zcajmt0711 [address]Dublin [place] [id number] Globulin (S) [Mass/Vol] 2.6 g/dL Normal 1.5-4.5 [facility] Work Phone: Comment on above: PATIENT WAS FASTINGP ERFORMED BY: CB [facility] Mhxbuf1588 [address] RoadDublin [place] [id number] Glucose [Mass/Vol] 90 mg/dL Normal 65-99 [facility] Internal Medicine Work Phone: Comment on above: PATIENT WAS FASTINGP ERFORMED BY: PATRIA [facility] Nveqep6272 [address] RoadDublin [place] [id number] Potassium [Moles/Vol] 4.1 mmol/L Normal 3.5-5.2 [facility] Internal Medicine Work Phone: Comment on above: PATIENT WAS FASTINGP ERFORMED BY: CB [facility] Olhrdi8948 [address] RoadDublin [place] [id number] Protein [Mass/Vol] 6.4 g/dL Normal 6.0-8.5 [facility] Internal Medicine Work Phone: Comment on above: PATIENT WAS FASTINGP ERFORMED BY: PATRIA [facility] Qbhwnd0855 [address] RoadDublin [place] [id number] Sodium [Moles/Vol] 143 mmol/L Normal 134-144 [facility] Internal Medicine Work Phone: Comment on above: PATIENT WAS FASTINGP ERFORMED BY: PATRIA Lab[facility] Hpfhpv1445 [address] Roadblin [place] [id number] Urea nitrogen [Mass/Vol] 16 mg/dL Normal 8-27 [facility] Internal Medicine Work Phone: Comment on above: PATIENT WAS FASTINGP ERFORMED BY: [facility] Lcyvyt5484 [address] RoadDublin [place] [id number] Urea nitrogen/Creatinine [Mass ratio] 18 mg/mg Normal 12-28 [facility] Internal Medicine Work Phone: Comment on above: PATIENT WAS FASTINGP ERFORMED BY: [facility] Fbsnts90[address] [facility]bl[facility] [place] [id number] TSH (THYROID STIMULATING HOR CAM) ([id number])Ordered By: [employer] Assembler on 08-05-2020 TSH Qn 1.270 {uIU/mL} Normal 0.450-4.50 0 [facility] Internal Medicine Work Phone: Comment on above: PATIENT WAS FASTINGP ERFORMED BY: [facility] Cyzraq8752 [address] RoadDublin [place] [id number] CBC, PLATELETS & AUT DIFF ([id number])Ordered By: [employer] Assembler on 02-06-2020 Basophils (Bld) [#/Vol] 0.0 {x10E3/uL} Normal 0.0-0.2 [facility] Work Phone: Comment on above: PATIENT WAS FASTINGP ERFORMED BY: PATRIA LabSaint [facility] Uvjamz0968 [facility] [id number] Basophils (Bld) [#/Vol] 0.0 10*3/uL Normal 0.0-0.2 [facility]; [facility] Work Phone: Basophils/100 WBC (Bld) 0 % Normal [facility] Work Phone: Comment on above: PATIENT WAS FASTINGP ERFORMED BY: PATRIA LabSaint [facility] Center Antbff3380 [facility] [id number] Eosinophils (Bld) [#/Vol] 0.1 {x10E3/uL} Normal 0.0-0.4 [facility] Work Phone: Comment on above: PATIENT WAS FASTINGP ERFORMED BY: PATRIA LabBeaumont Hospital6370 [facility] [id number] Eosinophils (Bld) [#/Vol] 0.1 10*3/uL Normal 0.0-0.4 [facility]; [facility] Work Phone: Eosinophils/100 WBC (Bld) 2 % Normal [facility] Work Phone: Comment on above: PATIENT WAS FASTINGP ERFORMED BY: LabBeaumont Hospital6370 [facility] [id number] Erythrocyte distribution width (RBC) [Ratio] 14.0 % Normal 11.7-15.4 [facility] Work Phone: Comment on above: PATIENT WAS FASTINGP ERFORMED BY: PATRIA LabCoChilton Memorial HospitalGgjsvf5150 [facility] [id number] Hematocrit (Bld) [Volume fraction] 45.1 % Normal 34.0-46.6 [facility] Work Phone: Comment on above: PATIENT WAS FASTINGP ERFORMED BY: [facility] [facility]in [place] [id number] Hemoglobin (Bld) [Mass/Vol] 14.7 g/dL Normal 11.1-15.9 [facility] Work Phone: Comment on above: PATIENT WAS FASTINGP ERFORMED BY: [facility]6[address] [facility]in [place] [id number] Immature granulocytes (Bld) [#/Vol] 0.0 {x10E3/uL} Normal 0.0-0.1 [facility] Work Phone: Comment on above: PATIENT WAS FASTINGP ERFORMED BY: [facility]6[address] [facility]in [place] [id number] Immature granulocytes (Bld) [#/Vol] 0.0 10*3/uL Normal 0.0-0.1 [facility]; [facility] Work Phone: Immature granulocytes/100 WBC (Bld) 0 % Normal [facility] Work Phone: Comment on above: PATIENT WAS FASTINGP ERFORMED BY: [facility]6[address] [facility] [id number] Lymphocytes (Bld) [#/Vol] 1.4 {x10E3/uL} Normal 0.7-3.1 [facility] Work Phone: Comment on above: PATIENT WAS FASTINGP ERFORMED BY: [facility]6[address] [facility]in [place] [id number] Lymphocytes (Bld) [#/Vol] 1.4 10*3/uL Normal 0.7-3.1 [facility]; [facility] Work Phone: Lymphocytes/100 WBC (Bld) 26 % Normal [facility] Work Phone: Comment on above: PATIENT WAS FASTINGP ERFORMED BY: LabBeaumont Hospital6[address] [facility] Hospitalbl[facility] [place] [id number] MCH (RBC) [Entitic mass] 32.0 pg Normal 26.6-33.0 [facility] Work Phone: Comment on above: PATIENT WAS FASTINGP ERFORMED BY: PATRIA [facility]Co Jxkfrv0583 [facility] [id number] MCHC (RBC) [Mass/Vol] 32.6 g/dL Normal 31.5-35.7 [facility] Work Phone: Comment on above: PATIENT WAS FASTINGP ERFORMED BY: LabBeaumont Hospital6370 [facility] [id number] MCV (RBC) [Entitic vol] 98 fL Abnormal 79-97 [facility] Work Phone: Comment on above: PATIENT WAS FASTINGP ERFORMED BY: LabBeaumont Hospital6370 [facility] [id number] Monocytes (Bld) [#/Vol] 0.6 {x10E3/uL} Normal 0.1-0.9 [facility] Work Phone: Comment on above: PATIENT WAS FASTINGP ERFORMED BY: LabBea[facility] Hospital6370 [facility] [id number] Monocytes (Bld) [#/Vol] 0.6 10*3/uL Normal 0.1-0.9 [facility]; [facility] Work Phone: Monocytes/100 WBC (Bld) 11 % Normal [facility] Work Phone: Comment on above: PATIENT WAS FASTINGP ERFORMED BY: LabBeaum[facility] Hospital6370 [facility] [id number] Neutrophils (Bld) [#/Vol] 3.4 {x10E3/uL} Normal 1.4-7.0 [facility] Work Phone: Comment on above: PATIENT WAS FASTINGP ERFORMED BY: LabCo Eabnxd4640 [address] [facility] [place] [id number] Neutrophils (Bld) [#/Vol] 3.4 10*3/uL Normal 1.4-7.0 [facility]; [facility] Work Phone: Neutrophils/100 WBC (Bld) 61 % Normal [facility] Work Phone: Comment on above: PATIENT WAS FASTINGP ERFORMED BY: PATRIA LuisSaint Joseph Health Center Dedzlj8221 [facility] [id number] Platelets (Bld) [#/Vol] 171 {x10E3/uL} Normal 150-450 [facility] Work Phone: Comment on above: PATIENT WAS FASTINGP ERFORMED BY: LabSaint [facility] Center Hpuzyy2330 [facility] [id number] Platelets (Bld) [#/Vol] 171 10*3/uL Normal 150-450 [facility] Internal Medicine; [facility] Work Phone: RBC (Bld) [#/Vol] 4.59 {x10E6/uL} Normal 3.77-5.28 [facility] Internal Medicine Work Phone: Comment on above: CBC results reported were obtained after the specimen had been warmedto 37 degrees C. This may indicate the presence of Cold Agglutinins. PATIENT WAS FASTINGP ERFORMED BY: PATRIA [facility] Ygcduu5031 [facility] [id number] RBC (Bld) [#/Vol] 4.59 10*6/uL Normal 3.77-5.28 [facility] Internal [facility]; [facility] Work Phone: WBC (Bld) [#/Vol] 5.6 {x10E3/uL} Normal 3.4-10.8 [facility] Internal Medicine Work Phone: Comment on above: Verified by repeat analysis PATIENT WAS FASTINGP ERFORMED BY: [facility]6370 [facility] [id number] WBC (Bld) [#/Vol] 5.6 10*3/uL Normal 3.4-10.8 [facility] Internal Medicine; [facility] Work Phone: LIPID PANEL ([id number])Ordered B y: [employer] Assembler on 02-06-2020 Cholesterol [Mass/Vol] 183 mg/dL Normal 100-199 [facility] Work Phone: Comment on above: PATIENT WAS FASTINGP ERFORMED BY: LabShawn Ville 0597670 [facility] [id number] Cholesterol in HDL [Mass/Vol] 65 mg/dL Normal [facility] Work Phone: Comment on above: PATIENT WAS FASTINGP ERFORMED BY: PATRIA Santo Alvarezlin6370 [facility] [id number] Cholesterol in LDL [Mass/Vol] 94 mg/dL Normal 0-99 [facility] Work Phone: Comment on above: PATIENT WAS FASTINGP ERFORMED BY: PATRIA Dagoberto Qtathz0479 [facility] [id number] Cholesterol in LDL/Cholesterol in HDL [Mass ratio] 1.4 {ratio} Normal 0.0-3.2 [facility] Work Phone: Comment on above: LDL/HDL Ratio Men Wo men 1/2 Avg.Risk 1.0 1.5 Avg.Risk 3.6 3.2 2X Avg.Risk 6.2 5.0 3X Avg.Risk 8.0 6.1 PATIENT WAS FASTINGP ERFORMED BY: PATRIA [facility]6370 [facility] [id number] Cholesterol in VLDL [Mass/Vol] 24 mg/dL Normal 5-40 [facility] Work Phone: Comment on above: PATIENT WAS FASTINGP ERFORMED BY: PATRIA Dagoberto Gtnrcz7601 [facility] [id number] Triglyceride [Mass/Vol] 118 mg/dL Normal 0-149 [facility] Work Phone: Comment on above: PATIENT WAS FASTINGP ERFORMED BY: LabBeaumont Hospital6370 [facility] [id number] METABOLIC PANEL, COMPREHENSI VE ([id number])Ordered By: [employer] Assembler on 02-06-2020 Albumin [Mass/Vol] 4.2 g/dL Normal 3.7-4.7 [facility] Internal Medicine Work Phone: Comment on above: PATIENT WAS FASTINGP ERFORMED BY: [facility]6370 [facility] [id number] Albumin/Globulin [Mass ratio] 1.8 {ratio} Normal 1.2-2.2 [facility] Work Phone: Comment on above: PATIENT WAS FASTINGP ERFORMED BY: PATRIA LabCodesiree AlvarezWafdkj0051 [address] RoadDublin [place] [id number] ALP [Catalytic activity/Vol] 85 [iU]/L Normal 39-117 [facility] Work Phone: Comment on above: PATIENT WAS FASTINGP ERFORMED BY: PATRIA [facility] Oxeaer2693 [address] RoadDublin [place] [id number] ALP [Catalytic activity/Vol] 85 U/L Normal 39-117 [facility]; [facility] Work Phone: ALT [Catalytic activity/Vol] 13 [iU]/L Normal 0-32 [facility] Work Phone: Comment on above: PATIENT WAS FASTINGP ERFORMED BY: PATRIA LabCodesiree AlvarezDxyhqo4034 [address] RoadDublin [place] [id number] ALT [Catalytic activity/Vol] 13 U/L Normal 0-32 [facility]; [facility] Work Phone: AST [Catalytic activity/Vol] 27 [iU]/L Normal 0-40 [facility] Work Phone: Comment on above: PATIENT WAS FASTINGP ERFORMED BY: PATRIA LuisRegina AlvarezCpysyp9234 [address] RoadDublin [place] [id number] AST [Catalytic activity/Vol] 27 U/L Normal 0-40 [facility]; [facility] Work Phone: Bilirubin [Mass/Vol] 0.4 mg/dL Normal 0.0-1.2 [facility] Internal Medicine Work Phone: Comment on above: PATIENT WAS FASTINGP ERFORMED BY: PATRIA [facility] Enamrl8416 [address] RoadDublin [place] [id number] Calcium [Mass/Vol] 9.0 mg/dL Normal 8.7-10.3 [facility] Internal Medicine Work Phone: Comment on above: PATIENT WAS FASTINGP ERFORMED BY: PATRIA [facility] Tdytjy2817 [address] RoadDublin [place] [id number] Chloride [Moles/Vol] 105 mmol/L Normal 96-106 [facility] Work Phone: Comment on above: PATIENT WAS FASTINGP ERFORMED BY: CB [facility] Ldwxko3780 [address] Roadblin [place] [id number] CO2 [Moles/Vol] 21 mmol/L Normal 20-29 [facility] Internal Medicine Work Phone: Comment on above: PATIENT WAS FASTINGP ERFORMED BY: CB [facility] Dmnzmm87[address] [facility] [id number] Creatinine [Mass/Vol] 0.82 mg/dL Normal 0.57-1.00 [facility] Internal Medicine Work Phone: Comment on above: PATIENT WAS FASTINGP ERFORMED BY: CB [facility] Smwspp1641 [address] [facility] [id number] GFR/1.73 sq M predicted among blacks CKD-EPI (S/P/Bld) [Vol rate/Area] 82 mL/min/1.73 Normal [facility] Work Phone: Comment on above: PATIENT WAS FASTINGP ERFORMED BY: [facility] Dujrzf0471 [facility] [facility]Psych[facility] [id number] GFR/1.73 sq M predicted among non-blacks CKD-EPI (S/P/Bld) [Vol rate/Area] 71 mL/min/1.73 Normal [facility] Work Phone: Comment on above: PATIENT WAS FASTINGP ERFORMED BY: CB [facility] Woabfp8237 [address] [facility] [id number] Globulin (S) [Mass/Vol] 2.3 g/dL Normal 1.5-4.5 [facility] Internal Medicine Work Phone: Comment on above: PATIENT WAS FASTINGP ERFORMED BY: CB [facility] Dxvyya8910 [address] [facility] [place] [id number] Glucose [Mass/Vol] 93 mg/dL Normal 65-99 [facility] Internal Medicine Work Phone: Comment on above: PATIENT WAS FASTINGP ERFORMED BY: CB [facility] Ukqzip0795 [address] [facility] [id number] Potassium [Moles/Vol] 4.1 mmol/L Normal 3.5-5.2 [facility] Internal Medicine Work Phone: Comment on above: PATIENT WAS FASTINGP ERFORMED BY: PATRIA Dagoberto Croufz9997 [address] RoadDublin [place] [id number] Protein [Mass/Vol] 6.5 g/dL Normal 6.0-8.5 [facility] Internal Medicine Work Phone: Comment on above: PATIENT WAS FASTINGP ERFORMED BY: PATRAI [facility] Tpaceg1520 [address] Roadblin [place] [id number] Sodium [Moles/Vol] 144 mmol/L Normal 134-144 [facility] Internal Medicine Work Phone: Comment on above: PATIENT WAS FASTINGP ERFORMED BY: PATRIA [facility] Scexli6299 [address] Roadblin [place] [id number] Urea nitrogen [Mass/Vol] 19 mg/dL Normal 8- [facility] Internal Medicine Work Phone: Comment on above: PATIENT WAS FASTINGP ERFORMED BY: PATRIA [facility] Ulfoli7588 [address] Roadblin [place] [id number] Urea nitrogen/Creatinine [Mass ratio] 23 mg/mg Normal 09-07 [facility] Internal Medicine Work Phone: Comment on above: PATIENT WAS FASTINGP ERFORMED BY: PATRIA [facility] Hiidcp8878 [address] Roadblin [place] [id number] TSH (THYROID STIMULATING HOR CAM) (10732)Ordered By: [employer] Motor Assembler on 02-06-2020 TSH Qn 1.220 {uIU/mL} Normal 0.450-4.50 0 [facility] Work Phone: Comment on above: PATIENT WAS FASTINGP ERFORMED BY: PATRIA [facility] Dxatpn8401 [address] RoadDublin [place] [id number] VITAMIN B12 AND FOLATES (826 07)Ordered By: [employer] Assembler on 08-06-2018 Cobalamin (Vitamin B12) [Mass/Vol] 593 pg/mL Normal 232-1245 [facility] Work Phone: Comment on above: PATIENT NOT FASTINGP ERFORMED BY: PATRIA Silverio6370 [facility] [id number] Folate [Mass/Vol] 14.1 ng/mL Normal Compreh ensive Internal Medicine Work Phone: Comment on above: A serum folate chago ntration of less than 3.1 ng/mL isconsidered to represent clinical deficiency. PATIENT NOT FASTINGP ERFORMED BY: PATRIA Silverio6370 [facility] [id number] CALCIFEDIOL (21875)Ordered B y: [employer] As[employer]er on 07-27-2018 25-Hydroxyvitamin D2+25-Hydroxyvitamin D3 mass conc 51.5 ng/mL Normal 30.0-100.0 [facility] Work Phone: Comment on above: Vitamin D deficiency has been defined by the [place] ofMedicine and an Endocrine Society practice guideline as alevel of serum 25-OH vitamin D less than 20 ng/mL (1,2).The Endocrine Society went on to further define vitamin Dinsufficiency as a level between 21 and 29 ng/mL (2).1. IOM ([place] of Medicine). 2010. Dietary reference intakes for calcium and D. [place]: The National Academies Press.2. Joe MF, Carrie ROBERSON, Mellisa ST, et al. Evaluation, treatment, and prevention of vitamin D deficiency: an Endocrine Society clinical practice guideline. JCEM. 2010; 96(7):1911-30. PATIENT WAS FASTINGP ERFORMED BY: PATRIA [employer] Fiqhqa5867 [facility] [id number] CBC & PLATELETS (AUTO) (8502 7)Ordered By: [employer] Assembler on 07-27-2018 Erythrocyte distribution width (RBC) [Ratio] 14.2 % Normal 12.3-15.4 [facility] Work Phone: Comment on above: PATIENT WAS FASTINGP ERFORMED BY: PATRIA Arenas Qvpblj8404 [facility] [id number] Erythrocyte distribution width Auto Ratio (RBC) 14.2 % Normal 12.3-15.4 [facility] Work Phone: Hematocrit (Bld) [Volume fraction] 41.2 % Normal 34.0-46.6 [facility] Internal Medicine Work Phone: Comment on above: PATIENT WAS FASTINGP ERFORMED BY: [facility]araBeaumont Hospital6370 [facility] [id number] Hematocrit Auto Volume Fraction (Bld) 41.2 % Normal 34.0-46.6 [facility] Internal Medicine Work Phone: Hemoglobin mass conc (Bld) 14.3 g/dL Normal 11.1-15.9 [facility] Internal Medicine Work Phone: Comment on above: PATIENT WAS FASTINGP ERFORMED BY: LabShawn Ville [id number] [facility] [id number] MCH (RBC) [Entitic mass] 33.6 pg Abnormal 26.6-33.0 [facility] Internal Medicine Work Phone: Comment on above: PATIENT WAS FASTINGP ERFORMED BY: YooliDawn Ville [id number] [facility] [id number] MCH Auto Entitic mass (RBC) 33.6 pg Abnormal 26.6-33.0 [facility] Internal Medicine Work Phone: MCHC (RBC) [Mass/Vol] 34.7 g/dL Normal 31.5-35.7 [facility] Internal Medicine Work Phone: Comment on above: PATIENT WAS FASTINGP ERFORMED BY: CabaraShawn [place] [id number] [facility] [id number] MCHC Auto mass conc (RBC) 34.7 g/dL Normal 31.5-35.7 [facility] Internal Medicine Work Phone: MCV (RBC) [Entitic vol] 97 fL Normal 79-97 [facility] Internal Medicine Work Phone: Comment on above: PATIENT WAS FASTINGP ERFORMED BY: [place] [id number] [facility] [id number] MCV Auto Entitic volume (RBC) 97 fL Normal 79-97 [facility] Internal Medicine Work Phone: Platelets (Bld) [#/Vol] 193 {x10E3/uL} Normal 150-379 [facility] Work Phone: Comment on above: PATIENT WAS FASTINGP ERFORMED BY: [facility]6370 [facility] [id number] Platelets (Bld) [#/Vol] 193 10*3/uL Normal 150-379 [facility]; [facility] Work Phone: Platelets Auto #/vol (Bld) 193 {x10E3/uL} Normal 150-379 [facility] Work Phone: RBC (Bld) [#/Vol] 4.25 {x10E6/uL} Normal 3.77-5.28 [facility] Internal Medicine Work Phone: Comment on above: PATIENT WAS FASTINGP ERFORMED BY: [facility]6370 [facility] [id number] RBC (Bld) [#/Vol] 4.25 10*6/uL Normal 3.77-5.28 [facility]ensive Internal Medicine; [facility] Work Phone: RBC Auto #/vol (Bld) 4.25 {x10E6/uL} Normal 3.77-5.28 [facility] Work Phone: WBC (Bld) [#/Vol] 4.8 {x10E3/uL} Normal 3.4-10.8 [facility] Internal Medicine Work Phone: Comment on above: PATIENT WAS FASTINGP ERFORMED BY: [facility]6370 [facility] [id number] WBC (Bld) [#/Vol] 4.8 10*3/uL Normal 3.4-10.8 [facility] Internal Medicine; [facility] Work Phone: WBC Auto #/vol (Bld) 4.8 {x10E3/uL} Normal 3.4-10.8 [facility] Work Phone: LIPID PANEL ([id number])Ordered B y: [employer]er on 07-27-2018 Cholesterol in HDL mass conc 62 mg/dL Normal [facility] Work Phone: Comment on above: PATIENT WAS FASTINGP ERFORMED BY: PATRIA [facility] Oxlysb0625 [address] RoadDublin [place] [id number] Cholesterol in LDL mass conc 86 mg/dL Normal 0-99 [facility] Work Phone: Comment on above: PATIENT WAS FASTINGP ERFORMED BY: PATRIA [facility] Yhqejo7322 [address] RoadDublin [place] [id number] Cholesterol in LDL/Cholesterol in HDL mass ratio 1.4 {ratio} Normal 0.0-3.2 [facility] Work Phone: Comment on above: LDL/HDL Ratio Men Wo men 1/2 Avg.Risk 1.0 1.5 Avg.Risk 3.6 3.2 2X Avg.Risk 6.2 5.0 3X Avg.Risk 8.0 6.1 PATIENT WAS FASTINGP ERFORMED BY: PATRIA [facility] Hcmlxx2199 [address] RoadDublin [place] [id number] Cholesterol in VLDL mass conc 40 mg/dL Normal 5-40 [facility] Work Phone: Comment on above: PATIENT WAS FASTINGP ERFORMED BY: PATRIA [facility] Herycf5627 [address] RoadDublin [place] [id number] Cholesterol mass conc 188 mg/dL Normal 100-199 [facility] prehensive Internal Medicine Work Phone: Comment on above: PATIENT WAS FASTINGP ERFORMED BY: PATRIA [facility] Qgcgah6594 [address] RoadDublin [place] [id number] Triglyceride mass conc 201 mg/dL Abnormal 0-149 [facility] Work Phone: Comment on above: PATIENT WAS FASTINGP ERFORMED BY: PATRIA [facility] Berfgl4470 [address] RoadDublin [place] [id number] METABOLIC PANEL, COMPREHENSI VE ([id number])Ordered By: [employer] Assembler on 07-27-2018 Albumin mass conc 4.0 g/dL Normal 3.5-4.8 Compreh ensive Internal Medicine Work Phone: Comment on above: PATIENT WAS FASTINGP ERFORMED BY: PATRIA [facility] Wwioog3909 [address] RoadDublin [place] [id number] Albumin/Globulin mass ratio 1.6 {ratio} Normal 1.2-2.2 [facility] Internal Medicine Work Phone: Comment on above: PATIENT WAS FASTINGP ERFORMED BY: PATRIA Dagobertodesiree AlvarezCijnbf7444 [address] Roadblin [place] [id number] ALP [Catalytic activity/Vol] 88 U/L Normal 39-117 [facility]; [facility] Internal Medicine Work Phone: ALP enzyme act/vol 88 [iU]/L Normal 39-117 [facility] Internal Medicine Work Phone: Comment on above: PATIENT WAS FASTINGP ERFORMED BY: PATRIA Ch[facility] Rakyvp6198 [address] RoadCount Includes [facility] Hospitalin [place] [id number] ALT [Catalytic activity/Vol] 14 U/L Normal 0-32 [facility] Internal Medicine; [facility] Internal Medicine Work Phone: ALT enzyme act/vol 14 [iU]/L Normal 0-32 [facility] Internal Medicine Work Phone: Comment on above: PATIENT WAS FASTINGP ERFORMED BY: PATRIA [facility] Yqyoqh[address] [facility] [id number] AST [Catalytic activity/Vol] 20 U/L Normal 0-40 [facility] Internal Medicine; [facility] Internal Medicine Work Phone: AST enzyme act/vol 20 [iU]/L Normal 0-40 [facility] Internal Medicine Work Phone: Comment on above: PATIENT WAS FASTINGP ERFORMED BY: PATRIA SmithSaint [facility] Center Rvrldb8589 [facility] [id number] Bilirubin mass conc 0.6 mg/dL Normal 0.0-1.2 [facility] Internal [facility] Work Phone: Comment on above: PATIENT WAS FASTINGP ERFORMED BY: PATRIA LabSaint [facility] Ucrbvt4619 [address] [facility] [place] [id number] Calcium mass conc 9.4 mg/dL Normal 8.7-10.3 [facility] Internal Medicine Work Phone: Comment on above: PATIENT WAS FASTINGP ERFORMED BY: PATRIA LabBeaumont Hospital6[address] [facility]in [place] [id number] Chloride molar conc 103 mmol/L Normal 96-106 Compr ehensive Internal Medicine Work Phone: Comment on above: PATIENT WAS FASTINGP ERFORMED BY: PATRIA LabCodesiree SilverioSgrctr6418 [facility] [id number] CO2 molar conc 25 mmol/L Normal 20-29 Comprehens kit Internal Medicine Work Phone: Comment on above: PATIENT WAS FASTINGP ERFORMED BY: PATRIA [facility] Efrvbw7006 [facility] [id number] Creatinine mass conc 0.95 mg/dL Normal 0.57-1.00 Comp [facility]ersonensive [facility] Work Phone: Comment on above: PATIENT WAS FASTINGP ERFORMED BY: PATRIA LabCodesiree AlvarezRrycbc1331 [facility] [id number] GFR/1.73 sq M predicted among blacks CKD-EPI vol rate/area (S/P/Bld) 69 mL/min/1.73 Normal Comprehensiv e Internal Medicine Work Phone: Comment on above: PATIENT WAS FASTINGP ERFORMED BY: PATRIA [facility] Xzaiya6984 [facility] [id number] GFR/1.73 sq M predicted among non-blacks CKD-EPI vol rate/area (S/P/Bld) 60 mL/min/1.73 Normal [facility] Work Phone: Comment on above: PATIENT WAS FASTINGP ERFORMED BY: PATRIA [facility] Zenlwl8456 [facility] [id number] Globulin (S) [Mass/Vol] 2.5 g/dL Normal 1.5-4.5 [facility] Work Phone: Comment on above: PATIENT WAS FASTINGP ERFORMED BY: PATRIA [facility] Vjcnih2657 [facility] [id number] Globulin Calculated mass conc (S) 2.5 g/dL Normal 1.5-4.5 [facility] Work Phone: Glucose mass conc 82 mg/dL Normal 65-99 Compreh ensive Internal Medicine Work Phone: Comment on above: PATIENT WAS FASTINGP ERFORMED BY: PATRIA [facility] Podmvn7633 [address] [facility] [id number] Potassium molar conc 4.3 mmol/L Normal 3.5-5.2 Comp rehensive Internal Medicine Work Phone: Comment on above: PATIENT WAS FASTINGP ERFORMED BY: PATRIA [facility] Dtuynr6700 [address] [facility] [id number] Protein mass conc 6.5 g/dL Normal 6.0-8.5 Compreh ensive Internal Medicine Work Phone: Comment on above: PATIENT WAS FASTINGP ERFORMED BY: PATRIA [facility] Ngqodd2441 [address] [facility] [id number] Sodium molar conc 144 mmol/L Normal 134-144 Compreh ensive Internal Medicine Work Phone: Comment on above: PATIENT WAS FASTINGP ERFORMED BY: PATRIA LabSaint [facility] Center Fbckxz3922 [facility] [id number] Urea nitrogen mass conc 16 mg/dL Normal 8-27 [facility] Work Phone: Comment on above: PATIENT WAS FASTINGP ERFORMED BY: PATRIA LabSaint [facility] Center Vfmjqx4762 [facility] [id number] Urea nitrogen/Creatinine mass ratio 17 mg/mg Normal 12- [facility] Work Phone: Comment on above: PATIENT WAS FASTINGP ERFORMED BY: PATRIA LabSaint [facility] Efcqyv0596 [facility] [id number] TSH (THYROID STIMULATING HOR CAM) ([id number])Ordered By: [employer] Assembler on 07-27-2018 Thyrotropin Qn 0.975 {uIU/mL} Normal 0.450-4.50 0 [facility] Work Phone: Comment on above: PATIENT WAS FASTINGP ERFORMED BY: PATRIA [facility] Oggozr5456 [facility] [id number] Rapid Strep Test, Office ([phone])Ordered By: Preston Kang on 12-07-2017 S. pyogenes Ag EIA Ql (Throat) Negative Normal [facility]; [facility] Work Phone: Rapid Strep Test, Office ([phone])Ordered By: Preston Vance on 12-07-2017 S. pyogenes Ag IA Ql (Unsp spec) Negative Normal [facility] Work Phone: THROAT CULTURE ([id number])Ordere d By: [employer] Assembler on 12-07-2017 Bacteria identified Respiratory culture Nom (Unsp spec) RRF Normal [facility] Work Phone: Comment on above: Routine respiratory dodie PATIENT NOT FASTINGP ERFORMED BY: PATRIA [facility] Yqmgyl0024OnRequest ImagesPsychiatric hospital [id number] Information: SRC:TH Bacteria identified Respiratory culture Nom (Unsp spec) Final report Normal [facility] Work Phone: Comment on above: PATIENT NOT FASTINGP ERFORMED BY: [employer] LabImpactGamesrp [id number] I Oox ReqlutPsychiatric hospital [id number] Information: SRC: URINE ANTHONY CULTURE-MARIA T COL C OUNT (95073)Ordered By: [employer] Assembler on 07-27-2017 Bacteria identified Cx Nom (U) BETAGF Abnormal [facility] Work Phone: Comment on above: Beta hemolytic Strep tococcus, group F3,000 Colonies/mLMixed urogenital flora3,000 Colonies/mL PATIENT NOT FASTINGP ERFORMED BY: [employer] [facility] Yqyxli6334OnRequest ImagesPsychiatric hospital [id number] Information: SRC: Bacteria identified Cx Nom (U) Final report Abnormal [facility] Work Phone: Comment on above: PATIENT NOT FASTINGP ERFORMED BY: [employer] LabImpactGamesrp [id number] hospital [id number] Information: SRC: Urinalysis, Office (82339)Or dered By: Maya Kang on 07-25-2017 Bilirubin [...] Normal [facility] Work Phone: CALCIFEDIOL (35999)Ordered B y: [employer] As[employer]er on 07-19-2017 25-Hydroxyvitamin D2+25-Hydroxyvitamin D3 mass conc 47.5 ng/mL Normal 30.0-100.0 [facility] Work Phone: Comment on above: Vitamin D deficiency has been defined by the [place] ofMedicine and an Endocrine Society practice guideline as alevel of serum 25-OH vitamin D less than 20 ng/mL (1,2).The Endocrine Society went on to further define vitamin Dinsufficiency as a level between 21 and 29 ng/mL (2).1. IOM ([place] of Medicine). 2010. Dietary reference intakes for calcium and D. [place]: The National Academies Press.2. Joe MF, Carrie ROBERSON, Mellisa ST, et al. Evaluation, treatment, and prevention of vitamin D deficiency: an Endocrine Society clinical practice guideline. JCEM. 2010; 96(7):1911-30. PATIENT WAS FASTINGP ERFORMED BY: [facility]oF[facility] [id number] CBC, PLATELETS & AUT DIFF (9 0870)Ordered By: [employer] Assembler on 07-19-2017 Basophils (Bld) [#/Vol] 0.0 {x10E3/uL} Normal 0.0-0.2 [facility] Work Phone: Comment on above: PATIENT WAS FASTINGP ERFORMED BY: [facility] PromoFrye Regional Medical Center [id number] Information: NO UR @ UPLOAD Basophils (Bld) [#/Vol] 0.0 10*3/uL Normal 0.0-0.2 [facility]; [facility] Work Phone: Basophils Auto #/vol (Bld) 0.0 {x10E3/uL} Normal 0.0-0.2 [facility] Work Phone: Basophils/100 WBC (Bld) 0 % Normal [facility] Work Phone: Comment on above: PATIENT WAS FASTINGP ERFORMED BY: Power[employer] BiologicsPsychiatric hospital [id number] Information: NO UR @ UPLOAD Basophils/100 WBC Auto (Bld) 0 % Normal [facility] Work Phone: Eosinophils (Bld) [#/Vol] 0.1 {x10E3/uL} Normal 0.0-0.4 [facility] Work Phone: Comment on above: PATIENT WAS FASTINGP ERFORMED BY: PATRIA Yooli Skquvo5007 [facility] [id number] Information: NO UR @ UPLOAD Eosinophils (Bld) [#/Vol] 0.1 10*3/uL Normal 0.0-0.4 [facility]; [facility] Work Phone: Eosinophils Auto #/vol (Bld) 0.1 {x10E3/uL} Normal 0.0-0.4 [facility] Work Phone: Eosinophils/100 WBC (Bld) 2 % Normal [facility] Work Phone: Comment on above: PATIENT WAS FASTINGP ERFORMED BY: PATRIA CabaraRegina AlvarezArabdq4032 [facility] [id number] Information: NO UR @ UPLOAD Eosinophils/100 WBC Auto (Bld) 2 % Normal [facility] Work Phone: Erythrocyte distribution width (RBC) [Ratio] 14.0 % Normal 12.3-15.4 [facility] Work Phone: Comment on above: PATIENT WAS FASTINGP ERFORMED BY: PATRIA CabaraRegina AlvarezPkjsfo7251 [facility] [id number] Information: NO UR @ UPLOAD Erythrocyte distribution width Auto Ratio (RBC) 14.0 % Normal 12.3-15.4 [facility] Work Phone: Hematocrit (Bld) [Volume fraction] 38.8 % Normal 34.0-46.6 [facility] Work Phone: Comment on above: PATIENT WAS FASTINGP ERFORMED BY: PATRIA Yooli Acwuzf5427 [facility] [id number] Information: NO UR @ UPLOAD Hematocrit Auto Volume Fraction (Bld) 38.8 % Normal 34.0-46.6 [facility] Internal Medicine Work Phone: Hemoglobin mass conc (Bld) 13.7 g/dL Normal 11.1-15.9 [facility] Work Phone: Comment on above: PATIENT WAS FASTINGP ERFORMED BY: PATRIA Dagoberto Asqkye3992 [facility] [id number] Information: NO UR @ UPLOAD Immature granulocytes #/vol (Bld) 0.0 {x10E3/uL} Normal 0.0-0.1 [facility] Work Phone: Comment on above: PATIENT WAS FASTINGP ERFORMED BY: PATRIA Dagoberto Riqvii95[address] [id number] Information: NO UR @ UPLOAD Immature granulocytes (Bld) [#/Vol] 0.0 10*3/uL Normal 0.0-0.1 [facility]; [facility] Work Phone: Immature granulocytes/100 WBC (Bld) 0 % Normal [facility] Work Phone: Comment on above: PATIENT WAS FASTINGP ERFORMED BY: PATRIA Dagoberto Mepbfn[address] [id number] Information: NO UR @ UPLOAD Lymphocytes (Bld) [#/Vol] 1.1 {x10E3/uL} Normal 0.7-3.1 [facility] Work Phone: Comment on above: PATIENT WAS FASTINGP ERFORMED BY: PATRIA Santo Alvarez[address] [id number] Information: NO UR @ UPLOAD Lymphocytes (Bld) [#/Vol] 1.1 10*3/uL Normal 0.7-3.1 [facility]; [facility] Work Phone: Lymphocytes Auto #/vol (Bld) 1.1 {x10E3/uL} Normal 0.7-3.1 [facility] Work Phone: Lymphocytes/100 WBC (Bld) 24 % Normal [facility] Work Phone: Comment on above: PATIENT WAS FASTINGP ERFORMED BY: PATRIA [address] [id number] Information: NO UR @ UPLOAD Lymphocytes/100 WBC Auto (Bld) 24 % Normal [facility] Work Phone: MCH (RBC) [Entitic mass] 34.7 pg Abnormal 26.6-33.0 [facility] Work Phone: Comment on above: PATIENT WAS FASTINGP ERFORMED BY: PATRIA Yoolidesiree Ksvwku5748 [facility] [id number] Information: NO UR @ UPLOAD MCH Auto Entitic mass (RBC) 34.7 pg Abnormal 26.6-33.0 [facility] Internal Medicine Work Phone: MCHC (RBC) [Mass/Vol] 35.3 g/dL Normal 31.5-35.7 [facility] Internal [facility] Work Phone: Comment on above: PATIENT WAS FASTINGP ERFORMED BY: PATRIA Yoolidesiree Zfrgap0013 [facility] [id number] Information: NO UR @ UPLOAD MCHC Auto mass conc (RBC) 35.3 g/dL Normal 31.5-35.7 [facility] Internal Medicine Work Phone: MCV (RBC) [Entitic vol] 98 fL Abnormal 79-97 [facility] Work Phone: Comment on above: PATIENT WAS FASTINGP ERFORMED BY: PATRIA Yooli[address] [id number] Information: NO UR @ UPLOAD MCV Auto Entitic volume (RBC) 98 fL Abnormal 79-97 [facility] Work Phone: Monocytes (Bld) [#/Vol] 0.4 {x10E3/uL} Normal 0.1-0.9 [facility] Internal Medicine Work Phone: Comment on above: PATIENT WAS FASTINGP ERFORMED BY: PATRIA YooliDawn Ville [id number] [facility] [id number] Information: NO UR @ UPLOAD Monocytes (Bld) [#/Vol] 0.4 10*3/uL Normal 0.1-0.9 [facility] Internal Medicine; [facility] Work Phone: Monocytes Auto #/vol (Bld) 0.4 {x10E3/uL} Normal 0.1-0.9 [facility] Work Phone: Monocytes/100 WBC (Bld) 9 % Normal [facility] Work Phone: Comment on above: PATIENT WAS FASTINGP ERFORMED BY: PATRIA LuisRegina AlvarezQutfur6362 [facility] [id number] Information: NO UR @ UPLOAD Monocytes/100 WBC Auto (Bld) 9 % Normal [facility] Work Phone: Neutrophils (Bld) [#/Vol] 3.0 {x10E3/uL} Normal 1.4-7.0 [facility] Work Phone: Comment on above: PATIENT WAS FASTINGP ERFORMED BY: PATRIA Silverio[address] [place] [address] [id number] Information: NO UR @ UPLOAD Neutrophils (Bld) [#/Vol] 3.0 10*3/uL Normal 1.4-7.0 [facility]; [facility] Work Phone: Neutrophils Auto #/vol (Bld) 3.0 {x10E3/uL} Normal 1.4-7.0 [facility] Work Phone: Neutrophils/100 WBC (Bld) 65 % Normal [facility] Work Phone: Comment on above: PATIENT WAS FASTINGP ERFORMED BY: PATRIA Alvarez[address] [id number] Information: NO UR @ UPLOAD Neutrophils/100 WBC Auto (Bld) 65 % Normal [facility] Work Phone: Platelets (Bld) [#/Vol] 200 {x10E3/uL} Normal 150-379 [facility] Work Phone: Comment on above: PATIENT WAS FASTINGP ERFORMED BY: PATRIA Alvarez[address] [id number] Information: NO UR @ UPLOAD Platelets (Bld) [#/Vol] 200 10*3/uL Normal 150-379 [facility]; [facility] Work Phone: Platelets Auto #/vol (Bld) 200 {x10E3/uL} Normal 150-379 [facility] Work Phone: RBC (Bld) [#/Vol] 3.95 {x10E6/uL} Normal 3.77-5.28 [facility] Work Phone: Comment on above: PATIENT WAS FASTINGP ERFORMED BY: PATRIA CabaraRegina AlvarezRkuuwa1984 [facility] [id number] Information: NO UR @ UPLOAD RBC (Bld) [#/Vol] 3.95 10*6/uL Normal 3.77-5.28 [facility]; [facility] Work Phone: RBC Auto #/vol (Bld) 3.95 {x10E6/uL} Normal 3.77-5.28 [facility] Work Phone: WBC (Bld) [#/Vol] 4.6 {x10E3/uL} Normal 3.4-10.8 [facility] Medicine Work Phone: Comment on above: PATIENT WAS FASTINGP ERFORMED BY: PATRIA CabaraRegina AlvarezKnlhan5485 [facility] [id number] Information: NO UR @ UPLOAD WBC (Bld) [#/Vol] 4.6 10*3/uL Normal 3.4-10.8 [facility]; [facility] Work Phone: WBC Auto #/vol (Bld) 4.6 {x10E3/uL} Normal 3.4-10.8 [facility] Work Phone: LIPID PANEL ([id number])Ordered B y: [employer] Motor Assembler on 07-19-2017 Cholesterol in HDL mass conc 60 mg/dL Normal [facility] Work Phone: Comment on above: PATIENT WAS FASTINGP ERFORMED BY: PATRIA Unbxd Slmioi[address] [facility]Psych[facility] [id number] Cholesterol in LDL mass conc 81 mg/dL Normal 0-99 [facility] Work Phone: Comment on above: PATIENT WAS FASTINGP ERFORMED BY: PATRIA LabCodesiree Ubbuoi4726 [address] RoadDublin [place] [id number] Cholesterol in LDL/Cholesterol in HDL mass ratio 1.4 {ratio_units} Normal 0.0-3.2 [facility] Work Phone: Comment on above: LDL/HDL Ratio Men Wo men 1/2 Avg.Risk 1.0 1.5 Avg.Risk 3.6 3.2 2X Avg.Risk 6.2 5.0 3X Avg.Risk 8.0 6.1 PATIENT WAS FASTINGP ERFORMED BY: PATRIA LabCodesiree AlvarezCrtakn7048 Mc[address]ire RoadDublin [place] [id number] Cholesterol in VLDL mass conc 29 mg/dL Normal 5-40 [facility] Work Phone: Comment on above: PATIENT WAS FASTINGP ERFORMED BY: PATRIA LabRegina AlvarezDjfcvz7104 [address] RoadDublin [place] [id number] Cholesterol mass conc 170 mg/dL Normal 100-199 [facility] prehensive Internal Medicine Work Phone: Comment on above: PATIENT WAS FASTINGP ERFORMED BY: PATRIA LabCodesiree AlvarezXfnhor4673 [address] RoadDublin [place] [id number] Triglyceride mass conc 147 mg/dL Normal 0-149 [facility] Work Phone: Comment on above: PATIENT WAS FASTINGP ERFORMED BY: PATRIA LabRegina AlvarezKefaku038[address] ReqlutDublin [place] [id number] METABOLIC PANEL, COMPREHENSI VE ([id number])Ordered By: [employer] Motor Assembler on 07-19-2017 Albumin mass conc 4.1 g/dL Normal 3.5-4.8 Compreh ensive Internal Medicine Work Phone: Comment on above: PATIENT WAS FASTINGP ERFORMED BY: PATRIA [facility] Vnlceo6032 [address] RoadDublin [place] [id number] Albumin/Globulin mass ratio 1.6 {ratio} Normal 1.2-2.2 [facility] Work Phone: Comment on above: PATIENT WAS FASTINGP ERFORMED BY: PATRIA [facility] Rnxmpe3315 [address] RoadDublin [place] [id number] ALP [Catalytic activity/Vol] 99 U/L Normal 39-117 [facility]; [facility] Internal Medicine Work Phone: ALP enzyme act/vol 99 [iU]/L Normal 39-117 [facility] Internal Medicine Work Phone: Comment on above: PATIENT WAS FASTINGP ERFORMED BY: PATRIA LabCodesiree AlvarezKxwnlk3046 [address] RoadDublin [place] [id number] ALT [Catalytic activity/Vol] 13 U/L Normal 0-32 [facility] Internal Medicine; [facility] Internal Medicine Work Phone: ALT enzyme act/vol 13 [iU]/L Normal 0-32 [facility] Internal Medicine Work Phone: Comment on above: PATIENT WAS FASTINGP ERFORMED BY: PATRIA LabRegina AlvarezXdiral2585 [address] Roadblin [place] [id number] AST [Catalytic activity/Vol] 20 U/L Normal 0-40 [facility] Internal Medicine; [facility] Internal Medicine Work Phone: AST enzyme act/vol 20 [iU]/L Normal 0-40 [facility] Internal Medicine Work Phone: Comment on above: PATIENT WAS FASTINGP ERFORMED BY: PATRIA LabCodesiree AlvarezZxtkwe2[address] [facility] [place] [id number] Bilirubin mass conc 0.7 mg/dL Normal 0.0-1.2 Compr [facility] Internal Medicine Work Phone: Comment on above: PATIENT WAS FASTINGP ERFORMED BY: PATRIA [facility] Luzucf[address]72 [address] [facility]in [place] [id number] Calcium mass conc 8.9 mg/dL Normal 8.7-10.3 Compreh [facility] Internal Medicine Work Phone: Comment on above: PATIENT WAS FASTINGP ERFORMED BY: PATRIA [facility] Cxsylm2942 [address] [facility] Hospitalblin [place] [id number] Chloride molar conc 101 mmol/L Normal 96-106 Compr [facility] Internal Medicine Work Phone: Comment on above: PATIENT WAS FASTINGP ERFORMED BY: PATRIA [facility] Tuwjbk0217 [address] RoadDublin [place] [id number] CO2 molar conc 24 mmol/L Normal 18-29 Comprehens [facility] Internal Medicine Work Phone: Comment on above: PATIENT WAS FASTINGP ERFORMED BY: PATRIA [facility] Abazpj1948 [facility] [id number] Creatinine mass conc 0.79 mg/dL Normal 0.57-1.00 Comp rehensive Internal Medicine Work Phone: Comment on above: PATIENT WAS FASTINGP ERFORMED BY: LabCo Iyxvts1984 [facility] [id number] GFR/1.73 sq M predicted among blacks CKD-EPI vol rate/area (S/P/Bld) 87 mL/min/1.73 Normal Comprehensiv e Internal Medicine Work Phone: Comment on above: PATIENT WAS FASTINGP ERFORMED BY: PATRIA [facility] Oomvvi1866 [facility] [id number] GFR/1.73 sq M predicted among non-blacks CKD-EPI vol rate/area (S/P/Bld) 76 mL/min/1.73 Normal [facility] Work Phone: Comment on above: PATIENT WAS FASTINGP ERFORMED BY: PATRIA LabCo Clwkwc8536 [facility] [id number] Globulin (S) [Mass/Vol] 2.6 g/dL Normal 1.5-4.5 [facility] Work Phone: Comment on above: PATIENT WAS FASTINGP ERFORMED BY: LabCo Rzvrad0844 [facility] [id number] Globulin Calculated mass conc (S) 2.6 g/dL Normal 1.5-4.5 [facility] Work Phone: Glucose mass conc 89 mg/dL Normal 65-99 Compreh ensive Internal Medicine Work Phone: Comment on above: PATIENT WAS FASTINGP ERFORMED BY: PATRIA [facility] Itxarq7357 [facility] [id number] Potassium molar conc 4.1 mmol/L Normal 3.5-5.2 Comp rehensive Internal Medicine Work Phone: Comment on above: PATIENT WAS FASTINGP ERFORMED BY: PATRIA [facility] Amzvia8[address] [facility]in [place] [id number] Protein mass conc 6.7 g/dL Normal 6.0-8.5 Compreh ensive Internal Medicine Work Phone: Comment on above: PATIENT WAS FASTINGP ERFORMED BY: PATRIA [facility] Cjrsms8[address] [facility]in [place] [id number] Sodium molar conc 143 mmol/L Normal 134-144 Compreh ensive Internal Medicine Work Phone: Comment on above: PATIENT WAS FASTINGP ERFORMED BY: PATRIA [facility] Zqcagm8445 [address] [facility]in [place] [id number] Urea nitrogen mass conc 19 mg/dL Normal 8-27 [facility] Work Phone: Comment on above: PATIENT WAS FASTINGP ERFORMED BY: PATRIA [facility] Udapxc[address]99 [address] [facility]in [place] [id number] Urea nitrogen/Creatinine mass ratio 24 mg/mg Normal 12- [facility] Work Phone: Comment on above: PATIENT WAS FASTINGP ERFORMED BY: PATRIA [facility] Tcqyot6996 [address] [facility] [place] [id number] TSH (THYROID STIMULATING HOR CAM) ([id number])Ordered By: [employer] Assembler on 07-19-2017 Thyrotropin Qn 0.771 {uIU/mL} Normal 0.450-4.50 0 [facility] Work Phone: Comment on above: PATIENT WAS FASTINGP ERFORMED BY: [facility] Yfrlwk1316 [facility] [id number] Basic Metabolic Profile (BMP )Ordered By: [employer] Assembler on 10-04-2016 Basic metabolic 2000 panel 141 [...] CBC-Complete Blood Cnt No Di ffOrdered By: [employer] Motor Assembler on 10-04-2016 Erythrocyte distribution width Auto Ratio (RBC) 13.4 % Normal 11.6-14.6 [facility] Internal Medicine Work Phone: Hematocrit Auto Volume Fraction (Bld) 43.8 % Normal 37-47 Comprehens [facility] Internal Medicine Work Phone: Hemoglobin mass conc (Bld) 14.6 g/dL Normal 12.0-15.0 [facility] Internal Medicine Work Phone: MCH Auto Entitic mass (RBC) 31.1 pg Normal 27.0-32.0 [facility] Internal Medicine Work Phone: MCHC Auto mass conc (RBC) 33.3 {g/gl} Normal 32-36 [facility] Internal Medicine Work Phone: MCV Auto Entitic volume (RBC) 93.4 fL Normal 81-99 [facility] Work Phone: Platelet mean volume Auto Entitic volume (Bld) 9.7 fL Normal 6.2-12.0 [facility] Internal Medicine Work Phone: Platelets Auto #/vol (Bld) 215 10*3/uL Normal 150-450 [facility] Internal Medicine Work Phone: RBC Auto #/vol (Bld) 4.69 {M/mm3} Normal 4.2-5.4 Co mprehensive [facility] Medicine Work Phone: RDW SD 45.6 fL Abnormal 35.1-43.9 [facility] Internal Medicine Work Phone: WBC Auto #/vol (Bld) 5.0 10*3/uL Normal 4.4-11.0 [facility] prehensive Internal Medicine Work Phone: Lipid ProfileOrdered By: [employer] Billing Machine Operator on 09-29-2016 Cholesterol in HDL mass conc 73 mg/dL Normal [facility] Internal Medicine Work Phone: Comment on above: The drugs N-Acetylcy steine and Metamizole may falsely deressthis assay. Reference Range HDL <40 mg/dL Low HDL Cholesterol HDL >or= 60 mg/dL High HDL Cholesterol Cholesterol in LDL mass conc 80 mg/dL Normal 0-130 [facility] Internal Medicine Work Phone: Cholesterol in VLDL mass conc 34 mg/dL Normal 5-40 [facility] Internal Medicine Work Phone: Cholesterol mass conc 187 mg/dL Normal [facility] prehensive Internal Medicine Work Phone: Comment on above: <200 mg/dL Desirable 200-240 mg/dL Borderline >240 mg/dL High Risk Triglyceride mass conc 171 mg/dL Normal [facility] Internal Medicine Work Phone: Comment on above: The drugs N-Acetylcy steine and Metamizole may falsely deressthis assay.Serum Triglycerides Reference Interval Normal <150 mg/dL Borderline high 150 - 199 mg/dL High 200 - 499 mg/dL Very High > or = 500 mg/dL Liver ProfileOrdered By: [employer] tem Billing Machine Operator on 09-29-2016 Albumin mass conc 3.5 g/dL Normal 3.4-5.0 [facility] Internal Medicine Work Phone: ALP enzyme act/vol 91 U/L Normal 45-117 [facility] Work Phone: ALT enzyme act/vol 18 U/L Normal 12-78 [facility] Internal Medicine Work Phone: AST enzyme act/vol 20 U/L Normal 15-[address] [facility] Internal Medicine Work Phone: Bilirubin mass conc 0.60 mg/dL Normal 0.20-1.00 [facility] Work Phone: Bilirubin.direct mass conc 0.14 mg/dL Normal 0.00-0.30 [facility] Internal Medicine Work Phone: Globulin Calculated mass conc (S) 3.9 g/dL Abnormal 2.3-3.5 [facility] Internal Medicine Work Phone: Protein mass conc 7.4 g/dL Normal 6.4-8.2 [facility] Internal Medicine Work Phone: CALCIFEDIOL ([id number])Ordered B y: [employer] Motor Assembler on 06-14-2016 25-Hydroxyvitamin D2+25-Hydroxyvitamin D3 mass conc 45.8 ng/mL Normal 30.0-100.0 [facility] Internal Medicine Work Phone: Comment on above: Vitamin D deficiency has been defined by the [place] ofMedicine and an Endocrine Society practice guideline as alevel of serum 25-OH vitamin D less than 20 ng/mL (1,2).The Endocrine Society went on to further define vitamin Dinsufficiency as a level between 21 and 29 ng/mL (2).1. IOM ([place] of Medicine). 2010. Dietary reference intakes for calcium and D. Yuan [place]: The National Academies Press.2. Joe MF, Carrie [place], Mellisa ST, et al. Evaluation, treatment, and prevention of vitamin D deficiency: an Endocrine Society clinical practice guideline. JCEM. 2010; 96(7):1911-30. PATIENT WAS FASTINGP ERFORMED BY: LabCoChilton Memorial HospitalTscror7210 [facility] [id number] CBC, Platelets & Auto Diff ( [id number])Ordered By: [employer] Motor Assembler on 06-14-2016 Basophils (Bld) [#/Vol] 0.0 {x10E3/uL} Normal 0.0-0.2 [facility] Work Phone: Comment on above: PATIENT WAS FASTINGP ERFORMED BY: PATRIA YooliDawn [place] [id number] [facility] [id number] Basophils (Bld) [#/Vol] 0.0 10*3/uL Normal 0.0-0.2 [facility]; [facility] Work Phone: Basophils Auto #/vol (Bld) 0.0 {x10E3/uL} Normal 0.0-0.2 [facility] Work Phone: Basophils/100 WBC (Bld) 1 % Normal [facility] Work Phone: Comment on above: PATIENT WAS FASTINGP ERFORMED BY: Yooli[address] [id number] Basophils/100 WBC Auto (Bld) 1 % Normal [facility] Work Phone: Eosinophils (Bld) [#/Vol] 0.1 {x10E3/uL} Normal 0.0-0.4 [facility] Work Phone: Comment on above: PATIENT WAS FASTINGP ERFORMED BY: PATRIA YooliCrownpoint Healthcare FacilityUshrka5932 [facility] [id number] Eosinophils (Bld) [#/Vol] 0.1 10*3/uL Normal 0.0-0.4 [facility]; [facility] Work Phone: Eosinophils Auto #/vol (Bld) 0.1 {x10E3/uL} Normal 0.0-0.4 [facility] Work Phone: Eosinophils/100 WBC (Bld) 2 % Normal [facility] Work Phone: Comment on above: PATIENT WAS FASTINGP ERFORMED BY: YooliDawn [place] [id number] [facility] [id number] Eosinophils/100 WBC Auto (Bld) 2 % Normal [facility] Work Phone: Erythrocyte distribution width (RBC) [Ratio] 14.2 % Normal 12.3-15.4 [facility] Work Phone: Comment on above: PATIENT WAS FASTINGP ERFORMED BY: PATRIA LabCodesiree AlvarezMcijtz3528 [address] RoadDublin [place] [id number] Erythrocyte distribution width Auto Ratio (RBC) 14.2 % Normal 12.3-15.4 [facility] Work Phone: Hematocrit (Bld) [Volume fraction] 39.9 % Normal 34.0-46.6 [facility] Work Phone: Comment on above: PATIENT WAS FASTINGP ERFORMED BY: PATRIA LabRegina Silverio6370 [address] RoadDublin [place] [id number] Hematocrit Auto Volume Fraction (Bld) 39.9 % Normal 34.0-46.6 [facility] Internal Medicine Work Phone: Hemoglobin mass conc (Bld) 13.9 g/dL Normal 11.1-15.9 [facility] Work Phone: Comment on above: PATIENT WAS FASTINGP ERFORMED BY: PATRIA Alvarezlin6370 Mc[address] RoadDuin [place] [id number] Immature granulocytes #/vol (Bld) 0.0 {x10E3/uL} Normal 0.0-0.1 [facility] Work Phone: Comment on above: PATIENT WAS FASTINGP ERFORMED BY: PATRIA Alvarezlin6370 Mc[address] RoadCount Includes [facility] Hospitalin [place] [id number] Immature granulocytes (Bld) [#/Vol] 0.0 10*3/uL Normal 0.0-0.1 [facility]; [facility] Work Phone: Immature granulocytes/100 WBC (Bld) 0 % Normal [facility] Work Phone: Comment on above: PATIENT WAS FASTINGP ERFORMED BY: PATRIA [facility] Pghmgx3952 [address] RoadDublin [place] [id number] Lymphocytes (Bld) [#/Vol] 1.4 {x10E3/uL} Normal 0.7-3.1 [facility] Work Phone: Comment on above: PATIENT WAS FASTINGP ERFORMED BY: PATRIA SmithShawn [place] [id number] [facility] [id number] Lymphocytes (Bld) [#/Vol] 1.4 10*3/uL Normal 0.7-3.1 [facility]; [facility] Work Phone: Lymphocytes Auto #/vol (Bld) 1.4 {x10E3/uL} Normal 0.7-3.1 [facility] Work Phone: Lymphocytes/100 WBC (Bld) 27 % Normal [facility] Work Phone: Comment on above: PATIENT WAS FASTINGP ERFORMED BY: [place] [id number] [facility] [id number] Lymphocytes/100 WBC Auto (Bld) 27 % Normal [facility] Work Phone: MCH (RBC) [Entitic mass] 33.2 pg Abnormal 26.6-33.0 [facility] Work Phone: Comment on above: PATIENT WAS FASTINGP ERFORMED BY: [place] [id number] [facility] [id number] MCH Auto Entitic mass (RBC) 33.2 pg Abnormal 26.6-33.0 [facility] Work Phone: MCHC (RBC) [Mass/Vol] 34.8 g/dL Normal 31.5-35.7 [facility] prehensive Internal Medicine Work Phone: Comment on above: PATIENT WAS FASTINGP ERFORMED BY: [place] [id number] [facility] [id number] MCHC Auto mass conc (RBC) 34.8 g/dL Normal 31.5-35.7 [facility] Work Phone: MCV (RBC) [Entitic vol] 95 fL Normal 79-97 [facility] Work Phone: Comment on above: PATIENT WAS FASTINGP ERFORMED BY: [place] [id number] [facility] [id number] MCV Auto Entitic volume (RBC) 95 fL Normal 79-97 [facility] Work Phone: Monocytes (Bld) [#/Vol] 0.4 {x10E3/uL} Normal 0.1-0.9 [facility] Work Phone: Comment on above: PATIENT WAS FASTINGP ERFORMED BY: PATRIA LabImpactGamesChilton Memorial HospitalXfxnsk4086 [facility] [id number] Monocytes (Bld) [#/Vol] 0.4 10*3/uL Normal 0.1-0.9 [facility]; [facility] Work Phone: Monocytes Auto #/vol (Bld) 0.4 {x10E3/uL} Normal 0.1-0.9 [facility] Work Phone: Monocytes/100 WBC (Bld) 8 % Normal [facility] Work Phone: Comment on above: PATIENT WAS FASTINGP ERFORMED BY: YooliDawn [place] [id number] [facility] [id number] Monocytes/100 WBC Auto (Bld) 8 % Normal [facility] Work Phone: Neutrophils (Bld) [#/Vol] 3.1 {x10E3/uL} Normal 1.4-7.0 [facility] Work Phone: Comment on above: PATIENT WAS FASTINGP ERFORMED BY: YooliDawn [place] [id number] [facility] [id number] Neutrophils (Bld) [#/Vol] 3.1 10*3/uL Normal 1.4-7.0 [facility]; [facility] Work Phone: Neutrophils Auto #/vol (Bld) 3.1 {x10E3/uL} Normal 1.4-7.0 [facility] Work Phone: Neutrophils/100 WBC (Bld) 62 % Normal [facility] Work Phone: Comment on above: PATIENT WAS FASTINGP ERFORMED BY: [place]iDa[place] [id number] [facility] [id number] Neutrophils/100 WBC Auto (Bld) 62 % Normal [facility] Work Phone: Platelets (Bld) [#/Vol] 193 {x10E3/uL} Normal 150-379 [facility] Work Phone: Comment on above: PATIENT WAS FASTINGP ERFORMED BY: YooliChilton Memorial HospitalVnmigo8471 [facility] [id number] Platelets (Bld) [#/Vol] 193 10*3/uL Normal 150-379 [facility]; [facility] Work Phone: Platelets Auto #/vol (Bld) 193 {x10E3/uL} Normal 150-379 [facility] Work Phone: RBC (Bld) [#/Vol] 4.19 {x10E6/uL} Normal 3.77-5.28 [facility] Internal Medicine Work Phone: Comment on above: PATIENT WAS FASTINGP ERFORMED BY: YooliChilton Memorial HospitalSaijxh3162 [facility] [id number] RBC (Bld) [#/Vol] 4.19 10*6/uL Normal 3.77-5.28 [facility]; [facility] Work Phone: RBC Auto #/vol (Bld) 4.19 {x10E6/uL} Normal 3.77-5.28 [facility] Work Phone: WBC (Bld) [#/Vol] 5.0 {x10E3/uL} Normal 3.4-10.8 [facility] Internal Medicine Work Phone: Comment on above: PATIENT WAS FASTINGP ERFORMED BY: YooliChilton Memorial HospitalIbqfud6786 [facility] [id number] WBC (Bld) [#/Vol] 5.0 10*3/uL Normal 3.4-10.8 [facility]; [facility] Work Phone: WBC Auto #/vol (Bld) 5.0 {x10E3/uL} Normal 3.4-10.8 [facility] Work Phone: Lipid Panel ([id number])Ordered B y: [employer] Motor Assembler on 06-14-2016 Cholesterol in HDL mass conc 56 mg/dL Normal [facility] Work Phone: Comment on above: According to ATP-III Guidelines, HDL-C >59 mg/dL is considered anegative risk factor for CHD. PATIENT WAS FASTINGP ERFORMED BY: PATRIA Alvarezlin6370 [facility] [id number] Cholesterol in LDL mass conc 87 mg/dL Normal 0-99 [facility] Work Phone: Comment on above: PATIENT WAS FASTINGP ERFORMED BY: PATRIA Arenas Wbsosx1389 [facility] [id number] Cholesterol in LDL/Cholesterol in HDL mass ratio 1.6 {ratio_units} Normal 0.0-3.2 [facility] Work Phone: Comment on above: LDL/HDL Ratio Men Wo men 1/2 Avg.Risk 1.0 1.5 Avg.Risk 3.6 3.2 2X Avg.Risk 6.2 5.0 3X Avg.Risk 8.0 6.1 PATIENT WAS FASTINGP ERFORMED BY: PATRIA Yooli Hrzskn3486 [facility] [id number] Cholesterol in VLDL mass conc 51 mg/dL Abnormal 5-40 [facility] Work Phone: Comment on above: PATIENT WAS FASTINGP ERFORMED BY: PATRIA Alvarezlin6370 [facility] [id number] Cholesterol mass conc 194 mg/dL Normal 100-199 Com prehensive Internal Medicine Work Phone: Comment on above: PATIENT WAS FASTINGP ERFORMED BY: PATRIA LabSaint [facility] Center Udavir2772 [facility] [id number] Triglyceride mass conc 256 mg/dL Abnormal 0-149 [facility] Work Phone: Comment on above: PATIENT WAS FASTINGP ERFORMED BY: PATRIA LabSaint [facility] Health Center Cipaif3669 [facility] [id number] Metabolic Panel, Comprehensi ve ([id number])Ordered By: [employer] Motor Assembler on 06-14-2016 Albumin mass conc 3.9 g/dL Normal 3.5-4.8 Compreh ensive Internal Medicine Work Phone: Comment on above: PATIENT WAS FASTINGP ERFORMED BY: CB [facility] Frckmp7003 [address] RoadDublin [place] [id number]; OV 10 Albumin/Globulin mass ratio 1.5 {ratio} Normal 1.1-2.5 [facility] Internal Medicine Work Phone: Comment on above: PATIENT WAS FASTINGP ERFORMED BY: CB [facility] Ouyqtc0487 [address] RoadDublin [place] [id number]; OV 10 ALP [Catalytic activity/Vol] 88 U/L Normal 39-117 [facility]; [facility] Internal Medicine Work Phone: ALP enzyme act/vol 88 [iU]/L Normal 39-117 [facility] Internal Medicine Work Phone: Comment on above: PATIENT WAS FASTINGP ERFORMED BY: CB [facility] Rbarde0638 [address] RoadDublin [place] [id number]; OV 06/27 ALT [Catalytic activity/Vol] 17 U/L Normal 0-32 [facility] Internal Medicine; [facility] Internal Medicine Work Phone: ALT enzyme act/vol 17 [iU]/L Normal 0-32 [facility] Internal Medicine Work Phone: Comment on above: PATIENT WAS FASTINGP ERFORMED BY: CB [facility] Brbans0932 [address] RoadDublin [place] [id number]; OV 10 AST [Catalytic activity/Vol] 20 U/L Normal 0-40 [facility] Internal Medicine; [facility] Internal Medicine Work Phone: AST enzyme act/vol 20 [iU]/L Normal 0-40 [facility] Internal Medicine Work Phone: Comment on above: PATIENT WAS FASTINGP ERFORMED BY: CB [facility] Vafecz7967 [address] RoadDublin [place] [id number]; OV 10 Bilirubin mass conc 0.5 mg/dL Normal 0.0-1.2 [facility] Work Phone: Comment on above: PATIENT WAS FASTINGP ERFORMED BY: CB [facility] Zvrycg7670 [address] RoadDublin [place] [id number]; OV 10 Calcium mass conc 9.3 mg/dL Normal 8.7-10.3 [facility] Medicine Work Phone: Comment on above: PATIENT WAS FASTINGP ERFORMED BY: CB [facility] Siplun3321 [address] RoadDublin [place] [id number]; OV 10 Chloride molar conc 101 mmol/L Normal 97-108 Compr ehens[facility] Medicine Work Phone: Comment on above: Effective June 27, 2016 the reference interval for Chloride, Serum will be changing to: 97 - 106 PATIENT WAS FASTINGP ERFORMED BY: CB [facility] Nlrrdh4718 [address] RoadDublin [place] [id number]; OV 10 CO2 molar conc 25 mmol/L Normal 18-29 [facility] Internal Medicine Work Phone: Comment on above: PATIENT WAS FASTINGP ERFORMED BY: CB [facility] Dvcimv5735 [address] RoadDublin [place] [id number]; OV 10 Creatinine mass conc 0.79 mg/dL Normal 0.57-1.00 [facility] rehens[facility] Internal Medicine Work Phone: Comment on above: PATIENT WAS FASTINGP ERFORMED BY: CB [facility] Hnuvqw7174 [address] RoadDublin [place] [id number]; OV 10 GFR/1.73 sq M predicted among blacks CKD-EPI vol rate/area (S/P/Bld) 88 mL/min/1.73 Normal [facility] Medicine Work Phone: Comment on above: PATIENT WAS FASTINGP ERFORMED BY: CB [facility] Ypcdri6226 [address] RoadDublin [place] [id number]; OV 10/ GFR/1.73 sq M predicted among non-blacks CKD-EPI vol rate/area (S/P/Bld) 76 mL/min/1.73 Normal [facility] Work Phone: Comment on above: PATIENT WAS FASTINGP ERFORMED BY: CB [facility] Jygiut5710 [address] RoadDublin [place] [id number]; OV 10 Globulin (S) [Mass/Vol] 2.6 g/dL Normal 1.5-4.5 [facility] Work Phone: Comment on above: PATIENT WAS FASTINGP ERFORMED BY: CB [facility] Lzldtf[address] [facility] [id number]; OV 06/27 Globulin Calculated mass conc (S) 2.6 g/dL Normal 1.5-4.5 [facility] Work Phone: Glucose mass conc 80 mg/dL Normal 65-99 [facility] ens[facility] Medicine Work Phone: Comment on above: PATIENT WAS FASTINGP ERFORMED BY: [facility] Ujdpgo[address] [facility] [place] [id number]; OV 06/27 Potassium molar conc 4.1 mmol/L [...] 5.2 PATIENT WAS FASTINGP ERFORMED BY: [facility] Wyraxo9037 [facility] [id number]; OV 06/27 Protein mass conc 6.5 g/dL Normal 6.0-8.5 Com[facility] ens[facility] Internal Medicine Work Phone: Comment on above: PATIENT WAS FASTINGP ERFORMED BY: [facility] Uybrvv9059 [facility] [id number]; OV 06/27 Sodium molar conc 144 mmol/L Normal 134-144 [facility] ens[facility] Medicine Work Phone: Comment on above: Effective June 27, 2016 the reference interval for Sodium, Serum will be changing to: 136 - 144 PATIENT WAS FASTINGP ERFORMED BY: CB [facility] Yvmmgq[address] [facility] [id number]; OV 06/27 Urea nitrogen mass conc 16 mg/dL Normal 8-27 [facility] Work Phone: Comment on above: PATIENT WAS FASTINGP ERFORMED BY: CB [facility] Cwjpam9860 [facility] [id number]; OV 06/27 Urea nitrogen/Creatinine mass ratio 20 mg/mg Normal 08-06 [facility] Work Phone: Comment on above: PATIENT WAS FASTINGP ERFORMED BY: CB [facility] Rjifak8327 [facility] [id number]; OV 06/27 Pathology ReportOrdered By: [employer] Assembler on 06-14-2016 Pathology report site of origin [...] BISECTED. THE SPECIMEN IS SUBMITTEDIN CASSETTE(S) A./LMSLMS/LMSCPT .356537 TSH (THYROID STIMULATING HOR CAM) ([id number])Ordered By: [employer]er on 06-14-2016 Thyrotropin Qn 1.110 {uIU/mL} Normal 0.450-4.50 0 [facility] Work Phone: Comment on above: PATIENT WAS FASTINGP ERFORMED BY: Y[address] [id number] Celiac Disease ProfileOrdere d By: [employer] Assembler on 11-25-2015 ENDOMYSIAL IGA Negative Normal [facility] Work Phone: IMMUNO A 296 mg/dL Normal 87-352 [facility] Work Phone: Comment on above: Please note refere nce interval changePerformed at: [facility] [address] [id number] Director: Itz Hartley PhD, Phone: [phone] tTG IGA <2 Normal 0-3 [facility] Work Phone: Comment on above: Negative 0 - 3 Weak Positive 4 - 10 Positive >10 Tissue Transglutaminase (tTG) has been identified as the endomysial antigen. Studies have demonstr- ated that endomysial IgA antibodies have over 99% specificity for gluten sensitive enteropathy. Fecal Occult Blood , Office ([id number])Ordered By: Ellis Cervantes on 11-05-2015 Hemoglobin.gastrointe stinal Ql (St) Negative Normal [facility] Work Phone: Hemoglobin.gastrointe stinal Ql (Stl) Negative Normal [facility]; [facility] Work Phone: CBC, Platelets & Auto Diff ( [id number])Ordered By: [employer]er on 10-26-2015 Basophils (Bld) [#/Vol] 0.0 {x10E3/uL} Normal 0.0-0.2 [facility] Work Phone: Comment on above: PATIENT NOT FASTINGP ERFORMED BY: [employer] [id number] Information: [id number] Basophils (Bld) [#/Vol] 0.0 10*3/uL Normal 0.0-0.2 [facility]; [facility] Work Phone: Basophils Auto #/vol (Bld) 0.0 {x10E3/uL} Normal 0.0-0.2 [facility] Work Phone: Basophils/100 WBC (Bld) 0 % Normal [facility] Work Phone: Comment on above: PATIENT NOT FASTINGP ERFORMED BY: PATRIA [facility]6370 [facility] [id number] Information: [id number] Basophils/100 WBC Auto (Bld) 0 % Normal [facility] Work Phone: Eosinophils (Bld) [#/Vol] 0.3 {x10E3/uL} Normal 0.0-0.4 [facility] Work Phone: Comment on above: PATIENT NOT FASTINGP ERFORMED BY: PATRIA [facility] Vfykra6553 [facility] [id number] Information: [id number] Eosinophils (Bld) [#/Vol] 0.3 10*3/uL Normal 0.0-0.4 [facility]; [facility] Work Phone: Eosinophils Auto #/vol (Bld) 0.3 {x10E3/uL} Normal 0.0-0.4 [facility] Work Phone: Eosinophils/100 WBC (Bld) 5 % Normal [facility] Work Phone: Comment on above: PATIENT NOT FASTINGP ERFORMED BY: PATRIA [place] [id number] [facility] [id number] Information: [id number] Eosinophils/100 WBC Auto (Bld) 5 % Normal [facility] Work Phone: Erythrocyte distribution width (RBC) [Ratio] 14.1 % Normal 12.3-15.4 [facility] Work Phone: Comment on above: PATIENT NOT FASTINGP ERFORMED BY: PATRIA [place] [id number] [facility] [id number] Information: [id number] Erythrocyte distribution width Auto Ratio (RBC) 14.1 % Normal 12.3-15.4 [facility] Work Phone: Hematocrit (Bld) [Volume fraction] 42.8 % Normal 34.0-46.6 [facility] Internal Medicine Work Phone: Comment on above: PATIENT NOT FASTINGP ERFORMED BY: PATRIA [facility] Qemhps2343 [facility] [id number] Information: [id number] Hematocrit Auto Volume Fraction (Bld) 42.8 % Normal 34.0-46.6 [facility] Internal Medicine Work Phone: Hemoglobin mass conc (Bld) 14.8 g/dL Normal 11.1-15.9 [facility] Work Phone: Comment on above: PATIENT NOT FASTINGP ERFORMED BY: PATRIA [place] [id number] [facility] [id number] Information: [id number] Immature granulocytes #/vol (Bld) 0.0 {x10E3/uL} Normal 0.0-0.1 [facility] Work Phone: Comment on above: PATIENT NOT FASTINGP ERFORMED BY: PATRIA LuisRegina AlvarezHifmla0695 [facility] [id number] Information: [id number] Immature granulocytes (Bld) [#/Vol] 0.0 10*3/uL Normal 0.0-0.1 [facility]; [facility] Work Phone: Immature granulocytes/100 WBC (Bld) 0 % Normal [facility] Work Phone: Comment on above: PATIENT NOT FASTINGP ERFORMED BY: PATRIA [place] 0664970 [facility] [id number] Information: [id number] Lymphocytes (Bld) [#/Vol] 1.2 {x10E3/uL} Normal 0.7-3.1 [facility] Work Phone: Comment on above: PATIENT NOT FASTINGP ERFORMED BY: PATRIA [facility]6370 [facility] [id number] Information: [id number] Lymphocytes (Bld) [#/Vol] 1.2 10*3/uL Normal 0.7-3.1 [facility]; [facility] Work Phone: Lymphocytes Auto #/vol (Bld) 1.2 {x10E3/uL} Normal 0.7-3.1 [facility] Work Phone: Lymphocytes/100 WBC (Bld) 18 % Normal [facility] Work Phone: Comment on above: PATIENT NOT FASTINGP ERFORMED BY: PATRIA [facility] Hkbbou4500 [facility] [id number] Information: [id number] Lymphocytes/100 WBC Auto (Bld) 18 % Normal [facility] Work Phone: MCH (RBC) [Entitic mass] 32.2 pg Normal 26.6-33.0 [facility] Work Phone: Comment on above: PATIENT NOT FASTINGP ERFORMED BY: PATRIA [facility]6370 [facility] [id number] Information: [id number] MCH Auto Entitic mass (RBC) 32.2 pg Normal 26.6-33.0 [facility] Work Phone: MCHC (RBC) [Mass/Vol] 34.6 g/dL Normal 31.5-35.7 [facility] Internal Medicine Work Phone: Comment on above: PATIENT NOT FASTINGP ERFORMED BY: PATRIA [facility]6370 [facility] [id number] Information: [id number] MCHC Auto mass conc (RBC) 34.6 g/dL Normal 31.5-35.7 [facility] Work Phone: MCV (RBC) [Entitic vol] 93 fL Normal 79-97 [facility] Work Phone: Comment on above: PATIENT NOT FASTINGP ERFORMED BY: [facility]6370 [facility] [id number] Information: [id number] MCV Auto Entitic volume (RBC) 93 fL Normal 79-97 [facility] Work Phone: Monocytes (Bld) [#/Vol] 0.5 {x10E3/uL} Normal 0.1-0.9 [facility] Work Phone: Comment on above: PATIENT NOT FASTINGP ERFORMED BY: [place] [id number] [facility] [id number] Information: [id number] Monocytes (Bld) [#/Vol] 0.5 10*3/uL Normal 0.1-0.9 [facility]; [facility] Work Phone: Monocytes Auto #/vol (Bld) 0.5 {x10E3/uL} Normal 0.1-0.9 [facility] Work Phone: Monocytes/100 WBC (Bld) 8 % Normal [facility] Work Phone: Comment on above: PATIENT NOT FASTINGP ERFORMED BY: [place] [id number] [facility] [id number] Information: [id number] Monocytes/100 WBC Auto (Bld) 8 % Normal [facility] Work Phone: Neutrophils (Bld) [#/Vol] 4.4 {x10E3/uL} Normal 1.4-7.0 [facility] Work Phone: Comment on above: PATIENT NOT FASTINGP ERFORMED BY: [facility]6370 [facility] [id number] Information: [id number] Neutrophils (Bld) [#/Vol] 4.4 10*3/uL Normal 1.4-7.0 [facility]; [facility] Work Phone: Neutrophils Auto #/vol (Bld) 4.4 {x10E3/uL} Normal 1.4-7.0 [facility] Work Phone: Neutrophils/100 WBC (Bld) 69 % Normal [facility] Work Phone: Comment on above: PATIENT NOT FASTINGP ERFORMED BY: PATRIA Silverio6370 [facility] [id number] Information: [id number] Neutrophils/100 WBC Auto (Bld) 69 % Normal [facility] Work Phone: Platelets (Bld) [#/Vol] 209 {x10E3/uL} Normal 150-379 [facility] Work Phone: Comment on above: PATIENT NOT FASTINGP ERFORMED BY: PATRIA Silverio6370 [facility] [id number] Information: [id number] Platelets (Bld) [#/Vol] 209 10*3/uL Normal 150-379 [facility]; [facility] Work Phone: Platelets Auto #/vol (Bld) 209 {x10E3/uL} Normal 150-379 [facility] Work Phone: RBC (Bld) [#/Vol] 4.59 {x10E6/uL} Normal 3.77-5.28 [facility] Internal Medicine Work Phone: Comment on above: PATIENT NOT FASTINGP ERFORMED BY: PATRIA Blanchard Pkwtfp8280 [facility] [id number] Information: [id number] RBC (Bld) [#/Vol] 4.59 10*6/uL Normal 3.77-5.28 [facility]; [facility] Work Phone: RBC Auto #/vol (Bld) 4.59 {x10E6/uL} Normal 3.77-5.28 [facility] Internal Medicine Work Phone: WBC (Bld) [#/Vol] 6.5 {x10E3/uL} Normal 3.4-10.8 [facility] Internal Medicine Work Phone: Comment on above: PATIENT NOT FASTINGP ERFORMED BY: PATRIA YooliCrownpoint Healthcare FacilityPdlpoa3649 [facility] [id number] Information: [id number] WBC (Bld) [#/Vol] 6.5 10*3/uL Normal 3.4-10.8 [facility]; [facility] Work Phone: WBC Auto #/vol (Bld) 6.5 {x10E3/uL} Normal 3.4-10.8 [facility] Work Phone: HELICOBACTER PYLORI ANTIBODY ([id number])Ordered By: [employer] Assembler on 10-26-2015 H. pylori IgG IA Qn (S) {index_val} Normal 0.0-0.8 [facility] Work Phone: Comment on above: Negative <0.9 Indete rminate 0.9 - 1.0 Positive >1.0 PATIENT NOT FASTINGP ERFORMED BY: PATRIA YooliCrownpoint Healthcare FacilityPinqoq1121 [facility] [id number] H. pylori IgG IA Qn (S) {index_val} Normal 0.0-0.8 [facility]; [facility] Work Phone: Metabolic Panel, Comprehensi ve (33153)Ordered By: [employer] Assembler on 10-26-2015 Albumin mass conc 4.0 g/dL Normal 3.6-4.8 Compreh [facility] Internal Medicine Work Phone: Comment on above: PATIENT NOT FASTINGP ERFORMED BY: YooliChilton Memorial HospitalEucmcx1727 [facility] [id number] Albumin/Globulin mass ratio 1.7 {ratio} Normal 1.1-2.5 [facility] Work Phone: Comment on above: PATIENT NOT FASTINGP ERFORMED BY: YooliChilton Memorial HospitalXxqzyd0437 [facility] [id number] ALP [Catalytic activity/Vol] 104 U/L Normal 39-117 [facility]; [facility] Work Phone: ALP enzyme act/vol 104 [iU]/L Normal 39-117 [facility] Internal Medicine Work Phone: Comment on above: PATIENT NOT FASTINGP ERFORMED BY: PATRIA LabCodesiree AlvarezCvzerw4031 [address] RoadDublin [place] [id number] ALT [Catalytic activity/Vol] 14 U/L Normal 0-32 [facility]; [facility] Work Phone: ALT enzyme act/vol 14 [iU]/L Normal 0-[address] [facility] Internal Medicine Work Phone: Comment on above: PATIENT NOT FASTINGP ERFORMED BY: PATRIA [facility] Cgjpua6604 [address] RoadDublin [place] [id number] AST [Catalytic activity/Vol] 20 U/L Normal 0-40 [facility]; [facility] Work Phone: AST enzyme act/vol 20 [iU]/L Normal 0-[address] [facility] Internal Medicine Work Phone: Comment on above: PATIENT NOT FASTINGP ERFORMED BY: PATRIA LabRegina AlvarezJoavdw7251 [address] RoadDublin [place] [id number] Bilirubin mass conc 0.4 mg/dL Normal 0.0-1.2 Compr ensive Internal Medicine Work Phone: Comment on above: PATIENT NOT FASTINGP ERFORMED BY: PATRIA LabRegina AlvarezJxalfy6801 [address] RoadDublin [place] [id number] Calcium mass conc 9.6 mg/dL Normal 8.7-10.3 Compreh ens[facility] Medicine Work Phone: Comment on above: PATIENT NOT FASTINGP ERFORMED BY: PATRIA [facility] Zpomvz2958 [address] RoadDublin [place] [id number] Chloride molar conc 103 mmol/L Normal 97-108 Compr ehensive Internal Medicine Work Phone: Comment on above: PATIENT NOT FASTINGP ERFORMED BY: CB [facility] Pkimiq9071 [address] RoadDublin [place] [id number] CO2 molar conc 23 mmol/L Normal 18-29 [facility] Work Phone: Comment on above: PATIENT NOT FASTINGP ERFORMED BY: PATRIA [facility] Trljon2419 [address] RoadDublin [place] [id number] Creatinine mass conc 0.92 mg/dL Normal 0.57-1.00 Comp rehensive Internal Medicine Work Phone: Comment on above: PATIENT NOT FASTINGP ERFORMED BY: PATRIA [facility] Skurza4095 Mc[address] RoadCount Includes [facility]in [place] [id number] GFR/1.73 sq M predicted among blacks CKD-EPI vol rate/area (S/P/Bld) 73 mL/min/1.73 Normal Com[facility] e [facility] Medicine Work Phone: Comment on above: PATIENT NOT FASTINGP ERFORMED BY: CB [facility] Bzztpt8609 [address] RoadCount Includes [facility]in [place] [id number] GFR/1.73 sq M predicted among non-blacks CKD-EPI vol rate/area (S/P/Bld) 64 mL/min/1.73 Normal [facility] Work Phone: Comment on above: PATIENT NOT FASTINGP ERFORMED BY: PATRIA [facility] Jokgto[address] [facility] [id number] Globulin (S) [Mass/Vol] 2.4 g/dL Normal 1.5-4.5 [facility] Work Phone: Comment on above: PATIENT NOT FASTINGP ERFORMED BY: CB [facility] Iwbbfl[address] [facility] [id number] Globulin Calculated mass conc (S) 2.4 g/dL Normal 1.5-4.5 [facility] Work Phone: Glucose mass conc 86 mg/dL Normal 65-99 Compreh ensive [facility] Medicine Work Phone: Comment on above: PATIENT NOT FASTINGP ERFORMED BY: CB [facility] Hohnhk[address] [facility]in [place] [id number] Potassium molar conc 4.1 mmol/L Normal 3.5-5.2 Comp rehensive Internal Medicine Work Phone: Comment on above: PATIENT NOT FASTINGP ERFORMED BY: CB [facility] Lxjvwe[address] [facility] [id number] Protein mass conc 6.4 g/dL Normal 6.0-8.5 Compreh ensive Internal Medicine Work Phone: Comment on above: PATIENT NOT FASTINGP ERFORMED BY: [facility] Ektswz0899 [facility] [id number] Sodium molar conc 142 mmol/L Normal 134-144 Compreh ensive Internal Medicine Work Phone: Comment on above: PATIENT NOT FASTINGP ERFORMED BY: [facility] Wvogdc3496 [facility] [id number] Urea nitrogen mass conc 14 mg/dL Normal 8- [facility] Work Phone: Comment on above: PATIENT NOT FASTINGP ERFORMED BY: [facility] Pnpdwe8616 [facility] [id number] Urea nitrogen/Creatinine mass ratio 15 mg/mg Normal - [facility] Work Phone: Comment on above: PATIENT NOT FASTINGP ERFORMED BY: [facility] Fvbmhq8459 [facility] [id number] URINE ANTHONY CULTURE-IDENTIFICA [place] (57704)Ordered By: [employer] Assembler on 10-26-2015 Bacteria identified Cx Nom (U) MUG Normal [facility] Work Phone: Comment on above: Mixed urogenital frida ra2,000 Colonies/mL PATIENT NOT FASTINGP ERFORMED BY: [facility] Ijpeig6231 [facility] [id number] Information: [id number] Bacteria identified Cx Nom (U) Final report Normal [facility] Work Phone: Comment on above: PATIENT NOT FASTINGP ERFORMED BY: [facility] Epzvam9474 [facility] [id number] Information: [id number] Urinalysis, Office (82543)Or dered By: Selina Zaragoza on 10-26-2015 Bilirubin [...] Work Phone: T4 Total, ThyroxinOrdered By : [employer] Assembler on 07-16-2015 T4 mass conc 8.8 ug/dL Normal 4.8-13.9 Comprehensiv e [facility] Medicine Work Phone: Thyroid Stim Hormone (TSH)Or dered By: [employer] Assembler on 07-16-2015 Thyrotropin Qn 1.28 {uIU/mL} Normal 0.358-3.74 Compreh ensive Internal Medicine Work Phone: Rapid Strep Test, Office ([phone])Ordered By: Krista Castillo on 09-01-2014 S. pyogenes Ag EIA Ql (Throat) Negative Normal [facility]; [facility] Work Phone: S. pyogenes Ag IA Ql (Unsp spec) Negative Normal [facility] Work Phone: Throat Culture ([id number])Ordere d By: [employer] Assembler on 09-01-2014 Bacteria identified Respiratory culture Nom (Unsp spec) Final report Normal [facility] Work Phone: Comment on above: PATIENT NOT FASTINGP ERFORMED BY: [employer] [facility] Ddojyq[address] [facility] [id number] Information: SRC:THRT [id number] Bacteria identified Respiratory culture Nom (Unsp spec) RRF Normal [facility] Work Phone: Comment on above: Routine respiratory dodie PATIENT NOT FASTINGP ERFORMED BY: [facility] Lvowra6654 [facility] [id number] Information: SRC:THRT [id number] CBC WITH MANUAL DIFF (47522) Ordered By: [employer] Assembler on 08-13-2014 Basophils (Bld) [#/Vol] 0.0 {x10E3/uL} Normal 0.0-0.2 [facility] Work Phone: Comment on above: PATIENT WAS FASTINGP ERFORMED BY: [employer] LabImpactGamesrp Vklzxa4684 [facility] [id number] Information: [id number] Basophils (Bld) [#/Vol] 0.0 10*3/uL Normal 0.0-0.2 [facility]; [facility] Work Phone: Basophils Auto #/vol (Bld) 0.0 {x10E3/uL} Normal 0.0-0.2 [facility] Work Phone: Basophils/100 WBC (Bld) 1 % Normal [facility] Work Phone: Comment on above: PATIENT WAS FASTINGP ERFORMED BY: [facility] Hhtham[address] [facility] [id number] Information: [id number] Basophils/100 WBC Auto (Bld) 1 % Normal [facility] Work Phone: Eosinophils (Bld) [#/Vol] 0.1 {x10E3/uL} Normal 0.0-0.4 [facility] Work Phone: Comment on above: PATIENT WAS FASTINGP ERFORMED BY: YooliChilton Memorial HospitalQgasyo8186 [facility] [id number] Information: [id number] Eosinophils (Bld) [#/Vol] 0.1 10*3/uL Normal 0.0-0.4 [facility]; [facility] Work Phone: Eosinophils Auto #/vol (Bld) 0.1 {x10E3/uL} Normal 0.0-0.4 [facility] Work Phone: Eosinophils/100 WBC (Bld) 3 % Normal [facility] Work Phone: Comment on above: PATIENT WAS FASTINGP ERFORMED BY: [place] [id number] [facility] [id number] Information: [id number] Eosinophils/100 WBC Auto (Bld) 3 % Normal [facility] Work Phone: Erythrocyte distribution width (RBC) [Ratio] 13.5 % Normal 12.3-15.4 [facility] Work Phone: Comment on above: PATIENT WAS FASTINGP ERFORMED BY: [place] [id number] [facility] [id number] Information: [id number] Erythrocyte distribution width Auto Ratio (RBC) 13.5 % Normal 12.3-15.4 [facility] Work Phone: Hematocrit (Bld) [Volume fraction] 41.5 % Normal 34.0-46.6 [facility] Work Phone: Comment on above: PATIENT WAS FASTINGP ERFORMED BY: [facility] HealthImpactGamesDawn Ville [id number] [facility] [id number] Information: [id number] Hematocrit Auto Volume Fraction (Bld) 41.5 % Normal 34.0-46.6 [facility] Work Phone: Hemoglobin mass conc (Bld) 14.4 g/dL Normal 11.1-15.9 [facility] Work Phone: Comment on above: PATIENT WAS FASTINGP ERFORMED BY: [place] [id number] [facility] [id number] Information: [id number] Immature granulocytes #/vol (Bld) 0.0 {x10E3/uL} Normal 0.0-0.1 [facility] Work Phone: Comment on above: PATIENT WAS FASTINGP ERFORMED BY: [place] [id number] [facility] [id number] Information: [id number] Immature granulocytes (Bld) [#/Vol] 0.0 10*3/uL Normal 0.0-0.1 [facility]; [facility] Work Phone: Immature granulocytes/100 WBC (Bld) 0 % Normal [facility] Work Phone: Comment on above: PATIENT WAS FASTINGP ERFORMED BY: [place] [id number] [facility] [id number] Information: [id number] Lymphocytes (Bld) [#/Vol] 1.3 {x10E3/uL} Normal 0.7-3.1 [facility] Work Phone: Comment on above: PATIENT WAS FASTINGP ERFORMED BY: [facility]6370 [facility] [id number] Information: [id number] Lymphocytes (Bld) [#/Vol] 1.3 10*3/uL Normal 0.7-3.1 [facility]; [facility] Work Phone: Lymphocytes Auto #/vol (Bld) 1.3 {x10E3/uL} Normal 0.7-3.1 [facility] Work Phone: Lymphocytes/100 WBC (Bld) 27 % Normal [facility] Work Phone: Comment on above: PATIENT WAS FASTINGP ERFORMED BY: PATRIA [place] [id number] [facility] [id number] Information: [id number] Lymphocytes/100 WBC Auto (Bld) 27 % Normal [facility] Work Phone: MCH (RBC) [Entitic mass] 32.4 pg Normal 26.6-33.0 [facility] Work Phone: Comment on above: PATIENT WAS FASTINGP ERFORMED BY: [place] [id number] [facility] [id number] Information: [id number] MCH Auto Entitic mass (RBC) 32.4 pg Normal 26.6-33.0 [facility] Internal Medicine Work Phone: MCHC (RBC) [Mass/Vol] 34.7 g/dL Normal 31.5-35.7 [facility] Internal Medicine Work Phone: Comment on above: PATIENT WAS FASTINGP ERFORMED BY: PATRIA [place] [id number] [facility] [id number] Information: [id number] MCHC Auto mass conc (RBC) 34.7 g/dL Normal 31.5-35.7 [facility] Work Phone: MCV (RBC) [Entitic vol] 94 fL Normal 79-97 [facility] Work Phone: Comment on above: PATIENT WAS FASTINGP ERFORMED BY: [facility]6370 [facility] [id number] Information: [id number] MCV Auto Entitic volume (RBC) 94 fL Normal 79-97 [facility] Internal Medicine Work Phone: Monocytes (Bld) [#/Vol] 0.4 {x10E3/uL} Normal 0.1-0.9 [facility] Work Phone: Comment on above: PATIENT WAS FASTINGP ERFORMED BY: [address]in [place] [id number] Information: [id number] Monocytes (Bld) [#/Vol] 0.4 10*3/uL Normal 0.1-0.9 [facility]; [facility] Work Phone: Monocytes Auto #/vol (Bld) 0.4 {x10E3/uL} Normal 0.1-0.9 [facility] Work Phone: Monocytes/100 WBC (Bld) 9 % Normal [facility] Work Phone: Comment on above: PATIENT WAS FASTINGP ERFORMED BY: [place] [id number] [facility] [id number] Information: [id number] Monocytes/100 WBC Auto (Bld) 9 % Normal [facility] Work Phone: Neutrophils (Bld) [#/Vol] 3.0 {x10E3/uL} Normal 1.4-7.0 [facility] Work Phone: Comment on above: PATIENT WAS FASTINGP ERFORMED BY: [facility]6370 [facility] [id number] Information: [id number] Neutrophils (Bld) [#/Vol] 3.0 10*3/uL Normal 1.4-7.0 [facility]; [facility] Work Phone: Neutrophils Auto #/vol (Bld) 3.0 {x10E3/uL} Normal 1.4-7.0 [facility] Work Phone: Neutrophils/100 WBC (Bld) 60 % Normal [facility] Work Phone: Comment on above: PATIENT WAS FASTINGP ERFORMED BY: [place] [id number] [facility] [id number] Information: [id number] Neutrophils/100 WBC Auto (Bld) 60 % Normal [facility] Work Phone: Platelets (Bld) [#/Vol] 198 {x10E3/uL} Normal 150-379 [facility] Work Phone: Comment on above: PATIENT WAS FASTINGP ERFORMED BY: PATRIA [facility]6370 [facility] [id number] Information: [id number] Platelets (Bld) [#/Vol] 198 10*3/uL Normal 150-379 [facility]; [facility] Work Phone: Platelets Auto #/vol (Bld) 198 {x10E3/uL} Normal 150-379 [facility] Work Phone: RBC (Bld) [#/Vol] 4.44 {x10E6/uL} Normal 3.77-5.28 [facility] Internal Medicine Work Phone: Comment on above: PATIENT WAS FASTINGP ERFORMED BY: PATRIA [facility]6370 [facility] [id number] Information: [id number] RBC (Bld) [#/Vol] 4.44 10*6/uL Normal 3.77-5.28 [facility]; [facility] Work Phone: RBC Auto #/vol (Bld) 4.44 {x10E6/uL} Normal 3.77-5.28 [facility] Internal Medicine Work Phone: WBC (Bld) [#/Vol] 4.8 {x10E3/uL} Normal 3.4-10.8 [facility] Internal Medicine Work Phone: Comment on above: PATIENT WAS FASTINGP ERFORMED BY: [facility]6370 [facility] [id number] Information: [id number] WBC (Bld) [#/Vol] 4.8 10*3/uL Normal 3.4-10.8 [facility]; [facility] Work Phone: WBC Auto #/vol (Bld) 4.8 {x10E3/uL} Normal 3.4-10.8 [facility] Work Phone: LIPID PANEL ([id number])Ordered B y: [employer] on 08-13-2014 Cholesterol in HDL mass conc 61 mg/dL Normal [facility] Work Phone: Comment on above: According to ATP-III Guidelines, HDL-C >59 mg/dL is considered anegative risk factor for CHD. PATIENT WAS FASTINGP ERFORMED BY: PATRIA [facility] Hneuuj8[address] RoadDublin [place] [id number] Cholesterol in LDL mass conc 93 mg/dL Normal 0-99 [facility] Work Phone: Comment on above: PATIENT WAS FASTINGP ERFORMED BY: CB [facility] Japsne[address] ReqlutDublin [place] [id number] Cholesterol in LDL/Cholesterol in HDL mass ratio 1.5 {ratio_units} Normal 0.0-3.2 [facility] Work Phone: Comment on above: LDL/HDL Ratio Men Wo men 1/2 Avg.Risk 1.0 1.5 Avg.Risk 3.6 3.2 2X Avg.Risk 6.2 5.0 3X Avg.Risk 8.0 6.1 PATIENT WAS FASTINGP ERFORMED BY: CB [facility] Eqqvzu2436 [address] RoadDublin [place] [id number] Cholesterol in VLDL mass conc 53 mg/dL Abnormal 5-40 [facility] Work Phone: Comment on above: PATIENT WAS FASTINGP ERFORMED BY: PATRIA [facility] Ahpypf58[address] ReqlutDublin [place] [id number] Cholesterol mass conc 207 mg/dL Abnormal 100-199 [facility] prehensive Internal Medicine Work Phone: Comment on above: PATIENT WAS FASTINGP ERFORMED BY: CB [facility] Dgkjon2417 [address] RoadDublin [place] [id number] Triglyceride mass conc 264 mg/dL Abnormal 0-149 [facility] Work Phone: Comment on above: PATIENT WAS FASTINGP ERFORMED BY: CB [facility] Oltzjy3124 [address] RoadDublin [place] [id number] METABOLIC PANEL, COMPREHENSI VE ([id number])Ordered By: [employer]er on 08-13-2014 Albumin mass conc 4.2 g/dL Normal 3.6-4.8 [facility] Internal Medicine Work Phone: Comment on above: PATIENT WAS FASTINGP ERFORMED BY: PATRIA Silverio[address] [facility] Hospitalblin [place] [id number] Albumin/Globulin mass ratio 1.6 {ratio} Normal 1.1-2.5 [facility] Internal Medicine Work Phone: Comment on above: PATIENT WAS FASTINGP ERFORMED BY: PATRIA [facility] Odvwga[address] [facility] [place] [id number] ALP [Catalytic activity/Vol] 80 U/L Normal 39-117 [facility]; [facility] Internal Medicine Work Phone: ALP enzyme act/vol 80 [iU]/L Normal 39-117 [facility] Internal Medicine Work Phone: Comment on above: PATIENT WAS FASTINGP ERFORMED BY: PATRIA LabMiguel Angel Qypksw[address] [facility] [id number] ALT [Catalytic activity/Vol] 11 U/L Normal 0-32 [facility]; [facility] Internal Medicine Work Phone: ALT enzyme act/vol 11 [iU]/L Normal 0-32 [facility] Internal Medicine Work Phone: Comment on above: PATIENT WAS FASTINGP ERFORMED BY: PATRIA Santo Alvarzelin6370 [facility] [id number] AST [Catalytic activity/Vol] 17 U/L Normal 0-40 [facility] Internal Medicine; [facility] Internal Medicine Work Phone: AST enzyme act/vol 17 [iU]/L Normal 0-40 [facility] Internal Medicine Work Phone: Comment on above: PATIENT WAS FASTINGP ERFORMED BY: PATRIA [facility] Fvsvfe9826 [address] [facility] [place] [id number] Bilirubin mass conc 0.6 mg/dL Normal 0.0-1.2 [facility] Work Phone: Comment on above: PATIENT WAS FASTINGP ERFORMED BY: PATRIA [facility] Wvdnci[address] [facility] [place] [id number] Calcium mass conc 9.4 mg/dL Normal 8.6-10.2 Compreh ensive Internal Medicine Work Phone: Comment on above: PATIENT WAS FASTINGP ERFORMED BY: PATRIA LabCodesiree Xrjezp[address] [facility] [id number] Chloride molar conc 101 mmol/L Normal 97-108 Compr ehensive Internal Medicine Work Phone: Comment on above: PATIENT WAS FASTINGP ERFORMED BY: PATRIA LabCodesiree AlvarezJwiopo[address] [facility] [id number] CO2 molar conc 23 mmol/L Normal 18-29 [facility] Internal Medicine Work Phone: Comment on above: PATIENT WAS FASTINGP ERFORMED BY: PATRIA LabCodesiree AlvarezIyxfoo9280 [facility] [id number] Creatinine mass conc 0.82 mg/dL Normal 0.57-1.00 Comp rehensive Internal Medicine Work Phone: Comment on above: PATIENT WAS FASTINGP ERFORMED BY: PATRIA LabRegina AlvarezCfuzqy7723 [facility] [id number] GFR/1.73 sq M predicted among blacks CKD-EPI vol rate/area (S/P/Bld) 85 mL/min/1.73 Normal Comprehensiv e [facility] Medicine Work Phone: Comment on above: PATIENT WAS FASTINGP ERFORMED BY: APTRIA [facility] Doncxx5541 [facility] [id number] GFR/1.73 sq M predicted among non-blacks CKD-EPI vol rate/area (S/P/Bld) 74 mL/min/1.73 Normal [facility] Work Phone: Comment on above: PATIENT WAS FASTINGP ERFORMED BY: PATRIA [facility] Magzph[address] [facility] [id number] Globulin (S) [Mass/Vol] 2.6 g/dL Normal 1.5-4.5 [facility] Work Phone: Comment on above: PATIENT WAS FASTINGP ERFORMED BY: PATRIA [facility] Aghlrp1498 [facility] [id number] Globulin Calculated mass conc (S) 2.6 g/dL Normal 1.5-4.5 [facility] Work Phone: Glucose mass conc 86 mg/dL Normal 65-99 Compreh ensive Internal Medicine Work Phone: Comment on above: PATIENT WAS FASTINGP ERFORMED BY: PATRIA [facility] Zqdlen7088 [address] Roadblin [place] [id number] Potassium molar conc 4.0 mmol/L Normal 3.5-5.2 Comp rehensive Internal Medicine Work Phone: Comment on above: PATIENT WAS FASTINGP ERFORMED BY: PATRIA [facility] Rmwifz7239 [address] RoadDublin [place] [id number] Protein mass conc 6.8 g/dL Normal 6.0-8.5 Compreh ensive Internal Medicine Work Phone: Comment on above: PATIENT WAS FASTINGP ERFORMED BY: PATRIA [facility] Cemnrg[address] [facility] [place] [id number] Sodium molar conc 142 mmol/L Normal 134-144 Compreh ensive Internal Medicine Work Phone: Comment on above: PATIENT WAS FASTINGP ERFORMED BY: PATRIA LabCodesiree AlvarezQwkgfa44[address] [facility]in [place] [id number] Urea nitrogen mass conc 17 mg/dL Normal 8-27 [facility] Work Phone: Comment on above: PATIENT WAS FASTINGP ERFORMED BY: PATRIA [facility] Aywtvz4[address] [facility]in [place] [id number] Urea nitrogen/Creatinine mass ratio 21 mg/mg Normal 11-26 [facility] Work Phone: Comment on above: PATIENT WAS FASTINGP ERFORMED BY: PATRIA [facility] Icygqt8467 [address] RoadDublin [place] [id number] TSH ([id number])Ordered By: Nasra Chapman on 08-13-2014 Thyrotropin Qn 1.440 {uIU/mL} Normal 0.450-4.50 0 [facility] Work Phone: Comment on above: PATIENT WAS FASTINGP ERFORMED BY: PATRIA [facility] Euiqjm2325 [facility] [id number] Lipid Panel ([id number])Ordered B y: [employer] on 01-01-2014 Cholesterol in HDL mass conc 62 mg/dL Normal [facility] Work Phone: Comment on above: According to ATP-III Guidelines, HDL-C >59 mg/dL is considered anegative risk factor for CHD. recheck in 3 months; PATIENT WAS FASTINGPERFORMED BY: CB [facility] Sypcqw[address] [facility] [id number] Cholesterol in LDL mass conc 84 mg/dL Normal 0-99 [facility] Work Phone: Comment on above: recheck in 3 months; PATIENT WAS FASTINGPERFORMED BY: CB [facility] Zbwkyd85[address] [facility] [id number] Cholesterol in LDL/Cholesterol in HDL mass ratio 1.4 {ratio_units} Normal 0.0-3.2 [facility] Work Phone: Comment on above: recheck in 3 months; PATIENT WAS FASTINGPERFORMED BY: CB [facility] Gjqswl5047 [facility] [id number] Cholesterol in VLDL mass conc 43 mg/dL Abnormal 5-40 [facility] Work Phone: Comment on above: recheck in 3 months; PATIENT WAS FASTINGPERFORMED BY: CB [facility] Tcikyo7225 [facility] [id number] Cholesterol mass conc 189 mg/dL Normal 100-199 [facility] Internal Medicine Work Phone: Comment on above: recheck in 3 months; PATIENT WAS FASTINGPERFORMED BY: CB [facility] Yodumo1859 [facility] [id number] Triglyceride mass conc 215 mg/dL Abnormal 0-149 [facility] Work Phone: Comment on above: recheck in 3 months; PATIENT WAS FASTINGPERFORMED BY: CB [facility] Nsimus7919 [facility] [id number] Metabolic Panel, Comprehensi ve ([id number])Ordered By: [employer] As[employer]er on 01-01-2014 Albumin mass conc 4.3 g/dL Normal 3.6-4.8 Compreh ensive Internal Medicine Work Phone: Comment on above: recheck in 3 months; PATIENT WAS FASTINGPERFORMED BY: [place] [id number] [facility] [id number] Information: [id number] Albumin/Globulin mass ratio 1.9 {ratio} Normal 1.1-2.5 [facility] Internal Medicine Work Phone: Comment on above: recheck in 3 months; PATIENT WAS FASTINGPERFORMED BY: [place] [id number] [facility] [id number] Information: [id number] ALP [Catalytic activity/Vol] 78 U/L Normal 39-117 [facility]; [facility] Internal Medicine Work Phone: ALP enzyme act/vol 78 [iU]/L Normal 39-117 [facility] Internal Medicine Work Phone: Comment on above: recheck in 3 months; PATIENT WAS FASTINGPERFORMED BY: [place] [id number] [facility] [id number] Information: [id number] ALT [Catalytic activity/Vol] 13 U/L Normal 0-32 [facility]; [facility] Internal Medicine Work Phone: ALT enzyme act/vol 13 [iU]/L Normal 0-32 [facility] Internal Medicine Work Phone: Comment on above: recheck in 3 months; PATIENT WAS FASTINGPERFORMED BY: [place] [id number] [facility] [id number] Information: [id number] AST [Catalytic activity/Vol] 22 U/L Normal 0-40 [facility]; [facility] Internal Medicine Work Phone: AST enzyme act/vol 22 [iU]/L Normal 0-40 [facility] Internal Medicine Work Phone: Comment on above: recheck in 3 months; PATIENT WAS FASTINGPERFORMED BY: [place] [id number] [facility] [id number] Information: [id number] Bilirubin mass conc 0.5 mg/dL Normal 0.0-1.2 [facility]ensive Internal Medicine Work Phone: Comment on above: recheck in 3 months; PATIENT WAS FASTINGPERFORMED BY: PATRIA [facility] Zfrtvs9644 [facility] [id number] Information: [id number] Calcium mass conc 9.5 mg/dL Normal 8.6-10.2 Compreh ensive Internal Medicine Work Phone: Comment on above: recheck in 3 months; PATIENT WAS FASTINGPERFORMED BY: PATRIA [facility] Cwdzzv1878 [facility] [id number] Information: [id number] Chloride molar conc 104 mmol/L Normal 97-108 [facility]ensive Internal Medicine Work Phone: Comment on above: recheck in 3 months; PATIENT WAS FASTINGPERFORMED BY: PATRIA [facility] Kwydmv9674 [facility] [id number] Information: [id number] CO2 molar conc 27 mmol/L Normal 19-28 [facility] Medicine Work Phone: Comment on above: recheck in 3 months; PATIENT WAS FASTINGPERFORMED BY: PATRIA [facility] Rlkttu4993 [facility] [id number] Information: [id number] Creatinine mass conc 0.88 mg/dL Normal 0.57-1.00 [facility] Work Phone: Comment on above: recheck in 3 months; PATIENT WAS FASTINGPERFORMED BY: PATRIA [facility] Xtntwq3603 [facility] [id number] Information: [id number] GFR/1.73 sq M predicted among blacks CKD-EPI vol rate/area (S/P/Bld) 78 mL/min/1.73 Normal Comprehensiv e Internal Medicine Work Phone: Comment on above: recheck in 3 months; PATIENT WAS FASTINGPERFORMED BY: PATRIA [facility] Nrogss3747 [facility] [id number] Information: [id number] GFR/1.73 sq M predicted among non-blacks CKD-EPI vol rate/area (S/P/Bld) 68 mL/min/1.73 Normal [facility] Work Phone: Comment on above: recheck in 3 months; PATIENT WAS FASTINGPERFORMED BY: [place] 5169070 [facility] [id number] Information: [id number] Globulin (S) [Mass/Vol] 2.3 g/dL Normal 1.5-4.5 [facility] Work Phone: Comment on above: recheck in 3 months; PATIENT WAS FASTINGPERFORMED BY: [place] 5169070 [facility] [id number] Information: [id number] Globulin Calculated mass conc (S) 2.3 g/dL Normal 1.5-4.5 [facility] Work Phone: Glucose mass conc 81 mg/dL Normal 65-99 Compreh ensive Internal Medicine Work Phone: Comment on above: recheck in 3 months; PATIENT WAS FASTINGPERFORMED BY: [address] [id number] Information: [id number] Potassium molar conc 4.0 mmol/L Normal 3.5-5.2 Comp rehensive Internal Medicine Work Phone: Comment on above: recheck in 3 months; PATIENT WAS FASTINGPERFORMED BY: [facility]6370 [facility] [id number] Information: [id number] Protein mass conc 6.6 g/dL Normal 6.0-8.5 Compreh ensive Internal Medicine Work Phone: Comment on above: recheck in 3 months; PATIENT WAS FASTINGPERFORMED BY: [place] 5169070 [facility] [id number] Information: [id number] Sodium molar conc 142 mmol/L Normal 134-144 Compreh ensive Internal Medicine Work Phone: Comment on above: recheck in 3 months; PATIENT WAS FASTINGPERFORMED BY: [employer] Nvaami9245 [facility] [id number] Information: [id number] Urea nitrogen mass conc 19 mg/dL Normal 8-27 [facility] Work Phone: Comment on above: recheck in 3 months; PATIENT WAS FASTINGPERFORMED BY: [facility] Cnmbsk2543 [facility] [id number] Information: [id number] Urea nitrogen/Creatinine mass ratio 22 mg/mg Normal 11- [facility] Work Phone: Comment on above: recheck in 3 months; PATIENT WAS FASTINGPERFORMED BY: [facility]iCh[facility] HospitalQmxdjt5718 [facility] [id number] Information: [id number] Urinalysis, Office ([id number])Or dered By: Selina Zaragoza on 08-23-2013 Bilirubin [...] Normal [facility] Work Phone: CALCIFIDIOL (41219) VIT D 25 Ordered By: [employer] As[employer]er on 06-17-2013 25-Hydroxyvitamin D2+25-Hydroxyvitamin D3 mass conc 32.6 ng/mL Normal 30.0-100.0 [facility] Work Phone: Comment on above: Vitamin D deficiency has been defined by the [place] ofMedicine and an Endocrine Society practice guideline as alevel of serum 25-OH vitamin D less than 20 ng/mL (1,2).The Endocrine Society went on to further define vitamin Dinsufficiency as a level between 21 and 29 ng/mL (2).1. IOM ([place] of Medicine). 2010. Dietary reference intakes for calcium and D. Yuan [place]: The National Academies Press.2. Joe MF, Carrie [place], Mellisa ST, et al. Evaluation, treatment, and prevention of vitamin D deficiency: an Endocrine Society clinical practice guideline. JCEM. 2010; 96(7):1911-30. PATIENT WAS FASTINGP ERFORMED BY: [facility]6370 [facility] [id number] CBC with manual diff ([id number]) Ordered By: [employer] Assembler on 06-17-2013 Basophils (Bld) [#/Vol] 0.0 {x10E3/uL} Normal 0.0-0.2 [facility] Work Phone: Comment on above: PATIENT WAS FASTINGP ERFORMED BY: [facility]6370 [facility] [id number] Information: [id number] Basophils (Bld) [#/Vol] 0.0 10*3/uL Normal 0.0-0.2 [facility]; [facility] Work Phone: Basophils Auto #/vol (Bld) 0.0 {x10E3/uL} Normal 0.0-0.2 [facility] Work Phone: Basophils/100 WBC (Bld) 0 % Normal 0-3 [facility] Work Phone: Comment on above: PATIENT WAS FASTINGP ERFORMED BY: [facility]6370 [facility] [id number] Information: [id number] Basophils/100 WBC Auto (Bld) 0 % Normal 0-3 [facility] Work Phone: Eosinophils (Bld) [#/Vol] 0.1 {x10E3/uL} Normal 0.0-0.4 [facility] Work Phone: Comment on above: PATIENT WAS FASTINGP ERFORMED BY: [facility]6370 [facility] [id number] Information: [id number] Eosinophils (Bld) [#/Vol] 0.1 10*3/uL Normal 0.0-0.4 [facility]; [facility] Work Phone: Eosinophils Auto #/vol (Bld) 0.1 {x10E3/uL} Normal 0.0-0.4 [facility] Work Phone: Eosinophils/100 WBC (Bld) 2 % Normal 0-5 [facility] Work Phone: Comment on above: PATIENT WAS FASTINGP ERFORMED BY: PATRIA [address] [id number] Information: [id number] Eosinophils/100 WBC Auto (Bld) 2 % Normal 0-5 [facility] Work Phone: Erythrocyte distribution width (RBC) [Ratio] 14.2 % Normal 12.3-15.4 [facility] Work Phone: Comment on above: PATIENT WAS FASTINGP ERFORMED BY: PATRIA [address] [id number] Information: [id number] Erythrocyte distribution width Auto Ratio (RBC) 14.2 % Normal 12.3-15.4 [facility] Work Phone: Hematocrit (Bld) [Volume fraction] 41.7 % Normal 34.0-46.6 [facility] Work Phone: Comment on above: PATIENT WAS FASTINGP ERFORMED BY: PATRIA [address] [id number] Information: [id number] Hematocrit Auto Volume Fraction (Bld) 41.7 % Normal 34.0-46.6 Comprehens [facility] Internal Medicine Work Phone: Hemoglobin mass conc (Bld) 14.0 g/dL Normal 11.1-15.9 [facility] Work Phone: Comment on above: PATIENT WAS FASTINGP ERFORMED BY: [address] [id number] Information: [id number] Immature granulocytes #/vol (Bld) 0.0 {x10E3/uL} Normal 0.0-0.1 [facility] Work Phone: Comment on above: PATIENT WAS FASTINGP ERFORMED BY: [address]Dublin [place] [id number] Information: [id number] Immature granulocytes (Bld) [#/Vol] 0.0 10*3/uL Normal 0.0-0.1 [facility]; [facility] Work Phone: Immature granulocytes/100 WBC (Bld) 0 % Normal 0-2 [facility] Work Phone: Comment on above: PATIENT WAS FASTINGP ERFORMED BY: PATRIA [place] [id number] [facility] [id number] Information: [id number] Lymphocytes (Bld) [#/Vol] 1.3 {x10E3/uL} Normal 0.7-3.1 [facility] Work Phone: Comment on above: PATIENT WAS FASTINGP ERFORMED BY: PATRIA [address] [id number] Information: [id number] Lymphocytes (Bld) [#/Vol] 1.3 10*3/uL Normal 0.7-3.1 [facility]; [facility] Work Phone: Lymphocytes Auto #/vol (Bld) 1.3 {x10E3/uL} Normal 0.7-3.1 [facility] Work Phone: Lymphocytes/100 WBC (Bld) 25 % Normal 14-46 [facility] Work Phone: Comment on above: PATIENT WAS FASTINGP ERFORMED BY: PATRIA [place] 0664970 [facility] [id number] Information: [id number] Lymphocytes/100 WBC Auto (Bld) 25 % Normal 14-46 [facility] Work Phone: MCH (RBC) [Entitic mass] 29.9 pg Normal 26.6-33.0 [facility] Work Phone: Comment on above: PATIENT WAS FASTINGP ERFORMED BY: [place] [id number] [facility] [id number] Information: [id number] MCH Auto Entitic mass (RBC) 29.9 pg Normal 26.6-33.0 [facility] Work Phone: MCHC (RBC) [Mass/Vol] 33.6 g/dL Normal 31.5-35.7 [facility] prehensive Internal Medicine Work Phone: Comment on above: PATIENT WAS FASTINGP ERFORMED BY: [place]Da[place] 6388170 [facility] [id number] Information: [id number] MCHC Auto mass conc (RBC) 33.6 g/dL Normal 31.5-35.7 [facility] Internal Medicine Work Phone: MCV (RBC) [Entitic vol] 89 fL Normal 79-97 [facility] Internal Medicine Work Phone: Comment on above: PATIENT WAS FASTINGP ERFORMED BY: [facility]iCh[facility] HospitalNgujyb[address] [place] [address] [id number] Information: [id number] MCV Auto Entitic volume (RBC) 89 fL Normal 79-97 [facility] Internal Medicine Work Phone: Monocytes (Bld) [#/Vol] 0.5 {x10E3/uL} Normal 0.1-0.9 [facility] Internal Medicine Work Phone: Comment on above: PATIENT WAS FASTINGP ERFORMED BY: [place] 6388170 [facility] [id number] Information: [id number] Monocytes (Bld) [#/Vol] 0.5 10*3/uL Normal 0.1-0.9 [facility]; [facility] Work Phone: Monocytes Auto #/vol (Bld) 0.5 {x10E3/uL} Normal 0.1-0.9 [facility] Internal Medicine Work Phone: Monocytes/100 WBC (Bld) 9 % Normal 4-12 [facility] Work Phone: Comment on above: PATIENT WAS FASTINGP ERFORMED BY: Yooli[address] [id number] Information: [id number] Monocytes/100 WBC Auto (Bld) 9 % Normal 4-12 [facility] Work Phone: Neutrophils (Bld) [#/Vol] 3.2 {x10E3/uL} Normal 1.4-7.0 [facility] Work Phone: Comment on above: PATIENT WAS FASTINGP ERFORMED BY: [place] [id number] [facility] [id number] Information: [id number] Neutrophils (Bld) [#/Vol] 3.2 10*3/uL Normal 1.4-7.0 [facility]; [facility] Work Phone: Neutrophils Auto #/vol (Bld) 3.2 {x10E3/uL} Normal 1.4-7.0 [facility] Work Phone: Neutrophils/100 WBC (Bld) 64 % Normal 40-74 [facility] Work Phone: Comment on above: PATIENT WAS FASTINGP ERFORMED BY: [facility]iChilton Memorial HospitalPsncqp6432 [facility] [id number] Information: [id number] Neutrophils/100 WBC Auto (Bld) 64 % Normal 40-74 [facility] Work Phone: Platelets (Bld) [#/Vol] 198 {x10E3/uL} Normal 155-379 [facility] Work Phone: Comment on above: PATIENT WAS FASTINGP ERFORMED BY: [facility]iChilton Memorial HospitalKqbkid1205 [facility] [id number] Information: [id number] Platelets (Bld) [#/Vol] 198 10*3/uL Normal 155-379 [facility]; [facility] Work Phone: Platelets Auto #/vol (Bld) 198 {x10E3/uL} Normal 155-379 [facility] Work Phone: RBC (Bld) [#/Vol] 4.68 {x10E6/uL} Normal 3.77-5.28 [facility] Internal Medicine Work Phone: Comment on above: PATIENT WAS FASTINGP ERFORMED BY: PTARIA Alvarezlin6370 [facility] [id number] Information: [id number] RBC (Bld) [#/Vol] 4.68 10*6/uL Normal 3.77-5.28 [facility]; [facility] Work Phone: RBC Auto #/vol (Bld) 4.68 {x10E6/uL} Normal 3.77-5.28 [facility] Work Phone: WBC (Bld) [#/Vol] 5.1 {x10E3/uL} Normal 3.4-10.8 [facility] Internal Medicine Work Phone: Comment on above: PATIENT WAS FASTINGP ERFORMED BY: PATRIA Blanchard Rwwbhf7590 [facility] [id number] Information: [id number] WBC (Bld) [#/Vol] 5.1 10*3/uL Normal 3.4-10.8 [facility]; [facility] Work Phone: WBC Auto #/vol (Bld) 5.1 {x10E3/uL} Normal 3.4-10.8 [facility] Internal Medicine Work Phone: Ferritin ([id number])Ordered By: Repair Electric Motor Assembler on 06-17-2013 Ferritin mass conc 43 ng/mL Normal 15-150 [facility] Internal Medicine Work Phone: Comment on above: PATIENT WAS FASTINGP ERFORMED BY: PATRIA YooliChilton Memorial HospitalErbizs1601 [facility] [id number] Lipid Panel ([id number])Ordered B y: [employer] Motor Assembler on 06-17-2013 Cholesterol in HDL mass conc 67 mg/dL Normal [facility] Work Phone: Comment on above: According to ATP-III Guidelines, HDL-C >59 mg/dL is considered anegative risk factor for CHD. PATIENT WAS FASTINGP ERFORMED BY: CB [facility] Gthvrq2946 [address] RoadDublin [place] [id number] Cholesterol in LDL mass conc 156 mg/dL Abnormal 0-99 [facility] Work Phone: Comment on above: PATIENT WAS FASTINGP ERFORMED BY: PATRIA [facility] Oluacq2376 [address]Dublin [place] [id number] Cholesterol in LDL/Cholesterol in HDL mass ratio 2.3 {ratio_units} Normal 0.0-3.2 [facility] Work Phone: Comment on above: PATIENT WAS FASTINGP ERFORMED BY: PATRIA [facility] Xbncja0574 [address] RoadDublin [place] [id number] Cholesterol in VLDL mass conc 45 mg/dL Abnormal 5-40 [facility] Work Phone: Comment on above: PATIENT WAS FASTINGP ERFORMED BY: PATRIA [facility] Fvkqvh9989 [address] RoadDublin [place] [id number] Cholesterol mass conc 268 mg/dL Abnormal 100-199 [facility] prehensive Internal Medicine Work Phone: Comment on above: PATIENT WAS FASTINGP ERFORMED BY: PATRIA [facility] Jtxaby2663 [address] RoadDublin [place] [id number] Triglyceride mass conc 225 mg/dL Abnormal 0-149 [facility] Work Phone: Comment on above: PATIENT WAS FASTINGP ERFORMED BY: PATRIA [facility] Mkovsq8722 [address] RoadDublin [place] [id number] Metabolic Panel, Comprehensi ve ([id number])Ordered By: Rep[employer] Electric Motor Assembler on 06-17-2013 Albumin mass conc 4.0 g/dL Normal 3.6-4.8 Compreh ensive Internal Medicine Work Phone: Comment on above: PATIENT WAS FASTINGP ERFORMED BY: PATRIA [facility] Aoovpt9473 [address]Dublin [place] [id number] Albumin/Globulin mass ratio 1.5 {ratio} Normal 1.1-2.5 [facility] Work Phone: Comment on above: PATIENT WAS FASTINGP ERFORMED BY: PATRIA [facility] Pejdzm8632 [address] RoadDublin [place] [id number] ALP [Catalytic activity/Vol] 97 U/L Normal 47-112 [facility]; [facility] Internal Medicine Work Phone: ALP enzyme act/vol 97 [iU]/L Normal 47-112 [facility] Internal Medicine Work Phone: Comment on above: PATIENT WAS FASTINGP ERFORMED BY: PATRIA Alvarezlin6370 [address]Dublin [place] [id number] ALT [Catalytic activity/Vol] 13 U/L Normal 0-32 [facility] Internal Medicine; [facility] Internal Medicine Work Phone: ALT enzyme act/vol 13 [iU]/L Normal 0-32 [facility] Internal Medicine Work Phone: Comment on above: PATIENT WAS FASTINGP ERFORMED BY: PATRIA Alvarezlin6370 [address]Dublin [place] [id number] AST [Catalytic activity/Vol] 22 U/L Normal 0-40 [facility] Internal Medicine; [facility] Internal Medicine Work Phone: AST enzyme act/vol 22 [iU]/L Normal 0-40 [facility] Internal Medicine Work Phone: Comment on above: PATIENT WAS FASTINGP ERFORMED BY: PATRIA Silverio6370 [address]blin [place] [id number] Bilirubin mass conc 0.4 mg/dL Normal 0.0-1.2 [facility] Work Phone: Comment on above: PATIENT WAS FASTINGP ERFORMED BY: PATRIA Alvarezlin6370 [address] [facility] Hospitalbl[facility] [place] [id number] Calcium mass conc 9.5 mg/dL Normal 8.6-10.2 [facility] Internal Medicine Work Phone: Comment on above: PATIENT WAS FASTINGP ERFORMED BY: PATRIA LabRegina AlvarezAcziol8525 [address] RoadDublin [place] [id number] Chloride molar conc 104 mmol/L Normal 97-108 [facility] Work Phone: Comment on above: PATIENT WAS FASTINGP ERFORMED BY: PATRIA LabRegina AlvarezGncqem4620 [address]Dublin [place] [id number] CO2 molar conc 24 mmol/L Normal 19-28 [facility] Internal Medicine Work Phone: Comment on above: PATIENT WAS FASTINGP ERFORMED BY: PATRIA LabCodesiree SilverioKuocey7269 [facility] [id number] Creatinine mass conc 0.73 mg/dL Normal 0.57-1.00 Comp rehensive Internal Medicine Work Phone: Comment on above: PATIENT WAS FASTINGP ERFORMED BY: PATRIA [facility] Ghzsvm9761 [facility] [id number] GFR/1.73 sq M predicted among blacks CKD-EPI vol rate/area (S/P/Bld) 99 mL/min/1.73 Normal Comprehensiv e Internal Medicine Work Phone: Comment on above: PATIENT WAS FASTINGP ERFORMED BY: PATRIA LabCodesiree AlvarezGrvrbp6223 [facility] [id number] GFR/1.73 sq M predicted among non-blacks CKD-EPI vol rate/area (S/P/Bld) 85 mL/min/1.73 Normal [facility] Work Phone: Comment on above: PATIENT WAS FASTINGP ERFORMED BY: PATRIA LabCodesiree Djmnlz3506 [facility] [id number] Globulin (S) [Mass/Vol] 2.6 g/dL Normal 1.5-4.5 [facility] Work Phone: Comment on above: PATIENT WAS FASTINGP ERFORMED BY: PATRIA [facility] Lnxvok3980 [facility] [id number] Globulin Calculated mass conc (S) 2.6 g/dL Normal 1.5-4.5 [facility] Work Phone: Glucose mass conc 83 mg/dL Normal 65-99 Compreh ensive Internal Medicine Work Phone: Comment on above: PATIENT WAS FASTINGP ERFORMED BY: PATRIA [facility] Htaodr8191 [facility] [id number] Potassium molar conc 4.0 mmol/L Normal 3.5-5.2 Comp rehensive Internal Medicine Work Phone: Comment on above: PATIENT WAS FASTINGP ERFORMED BY: PATRIA [facility] Cxfcbc0004 [facility] [id number] Protein mass conc 6.6 g/dL Normal 6.0-8.5 Compreh ensive Internal Medicine Work Phone: Comment on above: PATIENT WAS FASTINGP ERFORMED BY: [facility] Pdhkew8936 [facility] [id number] Sodium molar conc 141 mmol/L Normal 134-144 Compreh ensive Internal Medicine Work Phone: Comment on above: PATIENT WAS FASTINGP ERFORMED BY: [facility] Fhpron0475 [facility] [id number] Urea nitrogen mass conc 16 mg/dL Normal 8-27 [facility] Work Phone: Comment on above: PATIENT WAS FASTINGP ERFORMED BY: [facility] Xikvjb7453 [facility] [id number] Urea nitrogen/Creatinine mass ratio 22 mg/mg Normal 11-26 [facility] Work Phone: Comment on above: PATIENT WAS FASTINGP ERFORMED BY: [facility] Laitod8948 [facility] [id number] TSH ([id number])Ordered By: Syste m Billing Machine Operator on 06-17-2013 Thyrotropin Qn 1.050 {uIU/mL} Normal 0.450-4.50 0 [facility] Work Phone: Comment on above: PATIENT WAS FASTINGP ERFORMED BY: [facility] Wsaayh9214 [facility] [id number] BILAT SCRN DIGITAL & CADOrde red By: Rep[employer] Electric Motor Assembler on 06-18-2012 BILAT SCRN DIGITAL & CAD [...] Rabago M.D.June 18, 2012 at 12:43:13 PM [id number] Signed GP/GP If you are the referring physician and would like to consult with theradiologist who provided this interpretation, please contact Melody Underowod at [phone]. If this radiologist is unavailable, youwill be directed to another radiologist to assist. If you are a patient with a question regarding this report, pleasecontactyour referring physician directly. Professional Interpretation Provided By: [employer], Phone , These documents contain legally protected [...] Rabago MD CHEST WITH CONTRASTOrdered B y: Rep[employer] Electric Motor Assembler on 05-07-2012 CHEST WITH CONTRAST See Note [...] Cronin D.O.May 07, 2012 at 8:20:03 PM [id number] Signed BE/BE If you are the referring physician and would like to consult with theradiologist who provided this interpretation, please contact Moises Cronin D.O. at [phone]. If this radiologist is unavailable, you will bedirected to another radiologist to assist. If you are a patient with a question regarding this report, pleasecontactyour referring physician directly. Professional Interpretation Provided By: [employer], Phone , These documents contain legally protected [...] 05-07-2012 DDIMQ 1.62 {FEUug/mL} Abnormal 0.22-0.48 Comprehen [facility] Internal Medicine Work Phone: Comment on above: D-Dimer ELEVATED: Ad ditional studies and clinicalassessments are indicated to conclude diagnosis of:Deep Vein Thrombosis (DVT) or Pulmonary Embolism (PE)CRITICAL VALUE REPEATED AND VERIFIED. CALLED TO GQKQQZ10/27/12 LIZA ROSENTHAL.RESULTS READ BACK BY KELSEY EDWARDS . KOrdered By: Repair Electric Motor Assembler on 05-07-2012 Potassium molar conc 3.7 mmol/L Normal 3.5-5.1 Comp rehensive Internal Medicine Work Phone: MGOrdered By: Repair Electric Motor Assembler on 05-07-2012 Magnesium mass conc 2.1 mg/dL Normal 1.8-2.4 Compr ensive Internal Medicine Work Phone: Hemoglobin Glyclated (HGB A1 C) (06634)Ordered By: Kelsey Valencia on 05-03-2012 Hemoglobin A1c/Hemoglobin.total mass fraction (Bld) 5.4 % Normal 4.6 - 7.1 Comprehensiv e Internal Medicine Work Phone: Metabolic Panel, Basic ([phone])Ordered By: Repair Electric Motor Assembler on 05-01-2012 Calcium mass conc 9.8 mg/dL Normal 8.6-10.2 Compreh ensive Internal Medicine Work Phone: Comment on above: re check 2 weeks; PA TIENT NOT FASTINGPERFORMED BY: [facility] Afvohj4888 [facility] [id number] Information: [id number] Chloride molar conc 101 mmol/L Normal 97-108 Compr ensive Internal Medicine Work Phone: Comment on above: re check 2 weeks; PA TIENT NOT FASTINGPERFORMED BY: [employer] LabCoWho-Sells-it.com Blplyh4673 [facility] [id number] Information: [id number] CO2 molar conc 23 mmol/L Normal 20-32 [facility] Work Phone: Comment on above: re check 2 weeks; PA TIENT NOT FASTINGPERFORMED BY: PATRIA [facility] Anbbax7922 [facility] [id number] Information: [id number] Creatinine mass conc 0.86 mg/dL Normal 0.57-1.00 Comp rehensive Internal Medicine Work Phone: Comment on above: re check 2 weeks; PA TIENT NOT FASTINGPERFORMED BY: CB [facility] Pomxcn6621 [facility] [id number] Information: [id number] GFR/1.73 sq M predicted among blacks CKD-EPI vol rate/area (S/P/Bld) 81 mL/min/1.73 Normal Comprehensiv e Internal Medicine Work Phone: Comment on above: re check 2 weeks; PA TIENT NOT FASTINGPERFORMED BY: PATRIA [facility] Yldhzu2606 [facility] [id number] Information: [id number] GFR/1.73 sq M predicted among non-blacks CKD-EPI vol rate/area (S/P/Bld) 71 mL/min/1.73 Normal [facility] Work Phone: Comment on above: re check 2 weeks; PA TIENT NOT FASTINGPERFORMED BY: PATRIA [facility] Swnrgq3299 [facility] [id number] Information: [id number] Glucose mass conc 88 mg/dL Normal 65-99 Compreh ensive Internal Medicine Work Phone: Comment on above: re check 2 weeks; PA TIENT NOT FASTINGPERFORMED BY: CB [facility] Egubfd3031 [facility] [id number] Information: [id number] Potassium molar conc 4.2 mmol/L Normal 3.5-5.2 Comp rehensive Internal Medicine Work Phone: Comment on above: re check 2 weeks; PA TIENT NOT FASTINGPERFORMED BY: CB [facility] Duhxou6109 [facility] [id number] Information: [id number] Sodium molar conc 141 mmol/L Normal 134-144 Compreh ensive Internal Medicine Work Phone: Comment on above: re check 2 weeks; TIARRA BEST NOT FASTINGPERFORMED BY: [facility] Gjipec2283 [facility] [id number] Information: [id number] Urea nitrogen mass conc 18 mg/dL Normal 8-27 [facility] Work Phone: Comment on above: re check 2 weeks; TIARRA BEST NOT FASTINGPERFORMED BY: LabCoChilton Memorial HospitalAlzjgu3275 [facility] [id number] Information: [id number] Urea nitrogen/Creatinine mass ratio 21 mg/mg Normal 11-26 [facility] Work Phone: Comment on above: re check 2 weeks; TIARRA BEST NOT FASTINGPERFORMED BY: [facility] Ajelpn5445 [facility] [id number] Information: [id number] MYOCARD PERF STRESS/REST MUL TOrdered By: Repair Electric Motor Assembler on 04-24-2012 MYOCARD PERF STRESS/REST MULT See [...] The patient was injected with 32.0 mCi [id number] Cardiolite and subsequently stress SPECT Cardiolite nuclear [...] by: Ray GILL,Gerald CBC WITH MANUAL DIFF ([id number]) Ordered By: Rep[employer] Electric Motor Assembler on 04-16-2012 Basophils (Bld) [#/Vol] 0.0 {x10E3/uL} Normal 0.0-0.2 [facility] Work Phone: Comment on above: PATIENT NOT FASTINGP ERFORMED BY: [employer]70 [facility] [id number] Information: [id number] Basophils (Bld) [#/Vol] 0.0 10*3/uL Normal 0.0-0.2 [facility]; [facility] Work Phone: Basophils Auto #/vol (Bld) 0.0 {x10E3/uL} Normal 0.0-0.2 [facility] Work Phone: Basophils/100 WBC (Bld) 1 % Normal 0-3 [facility] Work Phone: Comment on above: PATIENT NOT FASTINGP ERFORMED BY: Fanli websitelin6370 [facility] [id number] Information: [id number],[id number] Basophils/100 WBC Auto (Bld) 1 % Normal 0-3 [facility] Work Phone: Eosinophils (Bld) [#/Vol] 0.1 {x10E3/uL} Normal 0.0-0.4 [facility] Work Phone: Comment on above: PATIENT NOT FASTINGP ERFORMED BY: PATRIA [facility] Laser CenterRegina AlvarezOddtns6686 [facility] [id number] Information: [id number] Eosinophils (Bld) [#/Vol] 0.1 10*3/uL Normal 0.0-0.4 [facility]; [facility] Work Phone: Eosinophils Auto #/vol (Bld) 0.1 {x10E3/uL} Normal 0.0-0.4 [facility] Work Phone: Eosinophils/100 WBC (Bld) 2 % Normal 0-7 [facility] Work Phone: Comment on above: PATIENT NOT FASTINGP ERFORMED BY: PATRIA [facility] Veswqc6408 [facility] [id number] Information: [id number],[id number] Eosinophils/100 WBC Auto (Bld) 2 % Normal 0-7 [facility] Work Phone: Erythrocyte distribution width (RBC) [Ratio] 14.2 % Normal 12.3-15.4 [facility] Work Phone: Comment on above: PATIENT NOT FASTINGP ERFORMED BY: PATRIA [place] [id number] [facility] [id number] Information: [id number] Erythrocyte distribution width Auto Ratio (RBC) 14.2 % Normal 12.3-15.4 [facility] Work Phone: Hematocrit (Bld) [Volume fraction] 39.5 % Normal 34.0-46.6 [facility] Work Phone: Comment on above: PATIENT NOT FASTINGP ERFORMED BY: PATRIA [facility]6370 [facility] [id number] Information: [id number] Hematocrit Auto Volume Fraction (Bld) 39.5 % Normal 34.0-46.6 [facility] Internal Medicine Work Phone: Hemoglobin mass conc (Bld) 13.4 g/dL Normal 11.1-15.9 [facility] Work Phone: Comment on above: PATIENT NOT FASTINGP ERFORMED BY: [place] [id number] [facility] [id number] Information: [id number] Immature granulocytes #/vol (Bld) 0.0 {x10E3/uL} Normal 0.0-0.1 [facility] Work Phone: Comment on above: PATIENT NOT FASTINGP ERFORMED BY: [address] [id number] Information: [id number] Immature granulocytes (Bld) [#/Vol] 0.0 10*3/uL Normal 0.0-0.1 [facility]; [facility] Work Phone: Immature granulocytes/100 WBC (Bld) 0 % Normal 0-2 [facility] Work Phone: Comment on above: PATIENT NOT FASTINGP ERFORMED BY: [place] [id number] [facility] [id number] Information: [id number] Lymphocytes (Bld) [#/Vol] 1.3 {x10E3/uL} Normal 0.7-4.5 [facility] Work Phone: Comment on above: PATIENT NOT FASTINGP ERFORMED BY: [facility]6370 [facility] [id number] Information: [id number] Lymphocytes (Bld) [#/Vol] 1.3 10*3/uL Normal 0.7-4.5 [facility]; [facility] Work Phone: Lymphocytes Auto #/vol (Bld) 1.3 {x10E3/uL} Normal 0.7-4.5 [facility] Work Phone: Lymphocytes/100 WBC (Bld) 23 % Normal 14-46 [facility] Work Phone: Comment on above: PATIENT NOT FASTINGP ERFORMED BY: PATRIA LuisRegina Yiwtrm6744 [facility] [id number] Information: [id number] Lymphocytes/100 WBC Auto (Bld) 23 % Normal 14-46 [facility] Work Phone: MCH (RBC) [Entitic mass] 31.5 pg Normal 26.6-33.0 [facility] Work Phone: Comment on above: PATIENT NOT FASTINGP ERFORMED BY: PATRIA [place] [id number] [facility] [id number] Information: [id number] MCH Auto Entitic mass (RBC) 31.5 pg Normal 26.6-33.0 [facility] Internal Medicine Work Phone: MCHC (RBC) [Mass/Vol] 33.9 g/dL Normal 31.5-35.7 [facility] Internal Medicine Work Phone: Comment on above: PATIENT NOT FASTINGP ERFORMED BY: PATRIA [place] [id number] [facility] [id number] Information: [id number],[id number] MCHC Auto mass conc (RBC) 33.9 g/dL Normal 31.5-35.7 [facility] Internal Medicine Work Phone: MCV (RBC) [Entitic vol] 93 fL Normal 79-97 [facility] Internal Medicine Work Phone: Comment on above: PATIENT NOT FASTINGP ERFORMED BY: PATRIA [place] [id number] [facility] [id number] Information: [id number] MCV Auto Entitic volume (RBC) 93 fL Normal 79-97 [facility] Internal Medicine Work Phone: Monocytes (Bld) [#/Vol] 0.4 {x10E3/uL} Normal 0.1-1.0 [facility] Internal Medicine Work Phone: Comment on above: PATIENT NOT FASTINGP ERFORMED BY: PATRIA [place] [id number] [facility] [id number] Information: [id number] Monocytes (Bld) [#/Vol] 0.4 10*3/uL Normal 0.1-1.0 [facility]; [facility] Work Phone: Monocytes Auto #/vol (Bld) 0.4 {x10E3/uL} Normal 0.1-1.0 [facility] Work Phone: Monocytes/100 WBC (Bld) 7 % Normal 12-22 [facility] Work Phone: Comment on above: PATIENT NOT FASTINGP ERFORMED BY: PATRIA Alvarezlin6370 [facility] [id number] Information: [id number] Monocytes/100 WBC Auto (Bld) 7 % Normal 12-22 [facility] Work Phone: Neutrophils (Bld) [#/Vol] 3.7 {x10E3/uL} Normal 1.8-7.8 [facility] Work Phone: Comment on above: PATIENT NOT FASTINGP ERFORMED BY: PATRIA Alvarezlin6370 [facility] [id number] Information: [id number] Neutrophils (Bld) [#/Vol] 3.7 10*3/uL Normal 1.8-7.8 [facility]; [facility] Work Phone: Neutrophils Auto #/vol (Bld) 3.7 {x10E3/uL} Normal 1.8-7.8 [facility] Work Phone: Neutrophils/100 WBC (Bld) 67 % Normal 40-74 [facility] Work Phone: Comment on above: PATIENT NOT FASTINGP ERFORMED BY: PATRIA [facility]6370 [facility] [id number] Information: [id number],[id number] Neutrophils/100 WBC Auto (Bld) 67 % Normal 40-74 [facility] Work Phone: Platelets (Bld) [#/Vol] 229 {x10E3/uL} Normal 140-415 [facility] Work Phone: Comment on above: PATIENT NOT FASTINGP ERFORMED BY: PATRIA LuisRegina Herrera70 [facility] [id number] Information: [id number] Platelets (Bld) [#/Vol] 229 10*3/uL Normal 140-415 [facility]; [facility] Work Phone: Platelets Auto #/vol (Bld) 229 {x10E3/uL} Normal 140-415 [facility] Work Phone: RBC (Bld) [#/Vol] 4.26 {x10E6/uL} Normal 3.77-5.28 [facility] Internal Medicine Work Phone: Comment on above: PATIENT NOT FASTINGP ERFORMED BY: PATRIA LuisRegina AlvarezCqldhy1940 [facility] [id number] Information: [id number] RBC (Bld) [#/Vol] 4.26 10*6/uL Normal 3.77-5.28 [facility]; [facility] Work Phone: RBC Auto #/vol (Bld) 4.26 {x10E6/uL} Normal 3.77-5.28 [facility] Work Phone: WBC (Bld) [#/Vol] 5.5 {x10E3/uL} Normal 4.0-10.5 [facility] Internal Medicine Work Phone: Comment on above: PATIENT NOT FASTINGP ERFORMED BY: [facility]6370 [facility] [id number] Information: [id number] WBC (Bld) [#/Vol] 5.5 10*3/uL Normal 4.0-10.5 [facility] Internal Medicine; [facility] Work Phone: WBC Auto #/vol (Bld) 5.5 {x10E3/uL} Normal 4.0-10.5 [facility] Work Phone: METABOLIC PANEL, COMPREHENSI VE ([id number])Ordered By: [employer]er on 04-16-2012 Albumin mass conc 3.8 g/dL Normal 3.6-4.8 [facility] Internal Medicine Work Phone: Comment on above: PATIENT NOT FASTINGP ERFORMED BY: CB [facility] Gyofgp6031 [address] RoadDublin [place] [id number] Albumin/Globulin mass ratio 1.4 {ratio} Normal 1.1-2.5 [facility] Work Phone: Comment on above: PATIENT NOT FASTINGP ERFORMED BY: CB [facility] Zukpqe8609 [address] RoadDublin [place] [id number] ALP [Catalytic activity/Vol] 98 U/L Normal 25-165 [facility]; [facility] Internal Medicine Work Phone: ALP enzyme act/vol 98 [iU]/L Normal 25-165 [facility] Internal Medicine Work Phone: Comment on above: PATIENT NOT FASTINGP ERFORMED BY: CB [facility] Rzmkhs4936 [address] RoadDublin [place] [id number] ALT [Catalytic activity/Vol] 14 U/L Normal 0-40 [facility]; [facility] Internal Medicine Work Phone: ALT enzyme act/vol 14 [iU]/L Normal 0-40 [facility] Internal Medicine Work Phone: Comment on above: PATIENT NOT FASTINGP ERFORMED BY: CB [facility] Nykpad5412 [address] RoadDublin [place] [id number] AST [Catalytic activity/Vol] 20 U/L Normal 0-40 [facility]; [facility] Internal Medicine Work Phone: AST enzyme act/vol 20 [iU]/L Normal 0-40 [facility] Internal Medicine Work Phone: Comment on above: PATIENT NOT FASTINGP ERFORMED BY: CB [facility] Ysdjuh0821 [address]Dublin [place] [id number] Bilirubin mass conc 0.3 mg/dL Normal 0.0-1.2 [facility] Work Phone: Comment on above: PATIENT NOT FASTINGP ERFORMED BY: CB [facility] Tkzntd1584 [address] RoadCount Includes [facility] [place] [id number] Calcium mass conc 9.3 mg/dL Normal 8.6-10.2 Compreh ensive Internal Medicine Work Phone: Comment on above: PATIENT NOT FASTINGP ERFORMED BY: CB [facility] Fzrfaf2901 [address] RoadCount Includes [facility] [place] [id number] Chloride molar conc 102 mmol/L Normal 97-108 Compr ehensive Internal Medicine Work Phone: Comment on above: PATIENT NOT FASTINGP ERFORMED BY: CB [facility] Xglrrt8359 [address] RoadCount Includes [facility] [place] [id number] CO2 molar conc 26 mmol/L Normal 20-32 [facility] Internal Medicine Work Phone: Comment on above: PATIENT NOT FASTINGP ERFORMED BY: CB [facility] Sthygy[address] [facility] [id number] Creatinine mass conc 0.67 mg/dL Normal 0.57-1.00 Comp rehensive Internal Medicine Work Phone: Comment on above: PATIENT NOT FASTINGP ERFORMED BY: CB [facility] Ibcxyu[address] [facility] [id number] GFR/1.73 sq M predicted among blacks CKD-EPI vol rate/area (S/P/Bld) 106 mL/min/1.73 Normal Comprehensiv e Internal Medicine Work Phone: Comment on above: PATIENT NOT FASTINGP ERFORMED BY: CB [facility] Ficneq[address] [facility] [id number] GFR/1.73 sq M predicted among non-blacks CKD-EPI vol rate/area (S/P/Bld) 92 mL/min/1.73 Normal [facility] Work Phone: Comment on above: PATIENT NOT FASTINGP ERFORMED BY: CB [facility] Brwwwn[address] [facility] [id number] Globulin (S) [Mass/Vol] 2.8 g/dL Normal 1.5-4.5 [facility] Work Phone: Comment on above: PATIENT NOT FASTINGP ERFORMED BY: PATRIA [facility] Rygrem8793 [address] RoadDublin [place] [id number] Globulin Calculated mass conc (S) 2.8 g/dL Normal 1.5-4.5 [facility] Work Phone: Glucose mass conc 102 mg/dL Abnormal 65-99 Compreh ensive Internal Medicine Work Phone: Comment on above: PATIENT NOT FASTINGP ERFORMED BY: CB [facility] Ehozvk9[address]Count Includes [facility] [place] [id number] Potassium molar conc 3.3 mmol/L Abnormal 3.5-5.2 Comp rehensive Internal Medicine Work Phone: Comment on above: Client Requested [place] g PATIENT NOT FASTINGP ERFORMED BY: PATRIA [facility] Mfgats[address] [facility] [place] [id number] Protein mass conc 6.6 g/dL Normal 6.0-8.5 Compreh ensive Internal Medicine Work Phone: Comment on above: PATIENT NOT FASTINGP ERFORMED BY: CB [facility] Nzlvau[address] [facility] [place] [id number] Sodium molar conc 141 mmol/L Normal 134-144 Compreh ensive Internal Medicine Work Phone: Comment on above: PATIENT NOT FASTINGP ERFORMED BY: CB [facility] Lilpnu[address] [facility] [id number] Urea nitrogen mass conc 17 mg/dL Normal 8-27 [facility] Work Phone: Comment on above: PATIENT NOT FASTINGP ERFORMED BY: CB [facility] Bqmejb[address] [facility]in [place] [id number] Urea nitrogen/Creatinine mass ratio 25 mg/mg Normal 11-26 [facility] Work Phone: Comment on above: PATIENT NOT FASTINGP ERFORMED BY: CB [facility] Ibsaye6766 [address] RoadDublin [place] [id number] TSH ([id number])Ordered By: Nasra Chapman on 04-16-2012 Thyrotropin Qn 1.040 {uIU/mL} Normal 0.450-4.50 0 [facility] Work Phone: Comment on above: PATIENT NOT FASTINGP ERFORMED BY: PATRIA Silverio[address] [facility] [id number] Metabolic Panel, Basic ([phone])Ordered By: [employer]er on 04-11-2012 Calcium mass conc 9.3 mg/dL Normal 8.6-10.2 Compreh ensive Internal Medicine Work Phone: Comment on above: PATIENT NOT FASTINGP ERFORMED BY: PATRIA [facility] Ouwadu[address] [facility] [id number] Information: [id number] Chloride molar conc 104 mmol/L Normal 97-108 Compr ehensive Internal Medicine Work Phone: Comment on above: PATIENT NOT FASTINGP ERFORMED BY: PATRIA Alvarezlin6370 [facility] [id number] Information: [id number] CO2 molar conc 26 mmol/L Normal 20-32 [facility] Internal Medicine Work Phone: Comment on above: PATIENT NOT FASTINGP ERFORMED BY: PATRIA LabCodesiree AlvarezRvugmf[address] [facility] [id number] Information: 490992,[id number] Creatinine mass conc 0.77 mg/dL Normal 0.57-1.00 Comp rehensive Internal Medicine Work Phone: Comment on above: PATIENT NOT FASTINGP ERFORMED BY: PATRIA [facility] Tcowxq[address] [facility] [id number] Information: 677842,[id number] GFR/1.73 sq M predicted among blacks CKD-EPI vol rate/area (S/P/Bld) 93 mL/min/1.73 Normal Comprehensiv e Internal Medicine Work Phone: Comment on above: PATIENT NOT FASTINGP ERFORMED BY: PATRIA [facility] Aeedwb[address] [facility] [id number] Information: 839055,[id number] GFR/1.73 sq M predicted among non-blacks CKD-EPI vol rate/area (S/P/Bld) 81 mL/min/1.73 Normal [facility] Work Phone: Comment on above: PATIENT NOT FASTINGP ERFORMED BY: PATRIA Alvarezlin6370 [facility] [id number] Information: 218587,[id number] Glucose mass conc 88 mg/dL Normal 65-99 Compreh ensive Internal Medicine Work Phone: Comment on above: PATIENT NOT FASTINGP ERFORMED BY: PATRIA SmithCoDawn [place] [id number] [facility] [id number] Information: 005962,Y90248 Potassium molar conc 3.9 mmol/L Normal 3.5-5.2 Comp rehensive Internal Medicine Work Phone: Comment on above: PATIENT NOT FASTINGP ERFORMED BY: [address] [id number] Information: 091480,[id number] Sodium molar conc 141 mmol/L Normal 134-144 Compreh ensive [facility] Medicine Work Phone: Comment on above: PATIENT NOT FASTINGP ERFORMED BY: PATRIA SmithShawn [place] [id number] [facility] [id number] Information: 261432,[id number] Urea nitrogen mass conc 14 mg/dL Normal 8-27 [facility] Work Phone: Comment on above: PATIENT NOT FASTINGP ERFORMED BY: [address] [id number] Information: 584484,[id number] Urea nitrogen/Creatinine mass ratio 18 mg/mg Normal 11-26 [facility] Work Phone: Comment on above: PATIENT NOT FASTINGP ERFORMED BY: PATRIA [facility]6370 [facility] [id number] Information: [id number] CBC WITH MANUAL DIFF (12348) Ordered By: [employer]er on 03-15-2012 Basophils (Bld) [#/Vol] 0.0 {x10E3/uL} Normal 0.0-0.2 [facility] Work Phone: Comment on above: PATIENT NOT FASTINGP ERFORMED BY: PATRIA [place] [id number] [facility] [id number] Information: 153230,[id number] Basophils (Bld) [#/Vol] 0.0 10*3/uL Normal 0.0-0.2 [facility]; [facility] Work Phone: Basophils Auto #/vol (Bld) 0.0 {x10E3/uL} Normal 0.0-0.2 [facility] Work Phone: Basophils/100 WBC (Bld) 0 % Normal 0-3 [facility] Work Phone: Comment on above: PATIENT NOT FASTINGP ERFORMED BY: PATRIA [place] 0664970 [facility] [id number] Information: 615936,S43136 Basophils/100 WBC Auto (Bld) 0 % Normal 0-3 [facility] Work Phone: Eosinophils (Bld) [#/Vol] 0.2 {x10E3/uL} Normal 0.0-0.4 [facility] Work Phone: Comment on above: PATIENT NOT FASTINGP ERFORMED BY: PATRAI [place] 0664970 [facility] [id number] Information: [id number] Eosinophils (Bld) [#/Vol] 0.2 10*3/uL Normal 0.0-0.4 [facility]; [facility] Work Phone: Eosinophils Auto #/vol (Bld) 0.2 {x10E3/uL} Normal 0.0-0.4 [facility] Work Phone: Eosinophils/100 WBC (Bld) 3 % Normal 0-7 [facility] Work Phone: Comment on above: PATIENT NOT FASTINGP ERFORMED BY: [place] [id number] [facility] [id number] Information: 165300,[id number] Eosinophils/100 WBC Auto (Bld) 3 % Normal 0-7 [facility] Work Phone: Erythrocyte distribution width (RBC) [Ratio] 14.2 % Normal 12.3-15.4 [facility] Work Phone: Comment on above: PATIENT NOT FASTINGP ERFORMED BY: PATRIA YooliChilton Memorial HospitalNtrrbh5575 [facility] [id number] Information: 098150,[id number] Erythrocyte distribution width Auto Ratio (RBC) 14.2 % Normal 12.3-15.4 [facility] Work Phone: Hematocrit (Bld) [Volume fraction] 38.8 % Normal 34.0-46.6 [facility] Work Phone: Comment on above: PATIENT NOT FASTINGP ERFORMED BY: PATRIA Yooli Fsjbrq8499 [facility] [id number] Information: 226162,[id number] Hematocrit Auto Volume Fraction (Bld) 38.8 % Normal 34.0-46.6 [facility] Internal Medicine Work Phone: Hemoglobin mass conc (Bld) 13.1 g/dL Normal 11.1-15.9 [facility] Work Phone: Comment on above: PATIENT NOT FASTINGP ERFORMED BY: PATRIA Yooli Jlmioz4723 [facility] [id number] Information: [id number] Immature granulocytes #/vol (Bld) 0.0 {x10E3/uL} Normal 0.0-0.1 [facility] Work Phone: Comment on above: PATIENT NOT FASTINGP ERFORMED BY: LabCoDawn [place] [id number] [facility] [id number] Information: [id number],[id number] Immature granulocytes (Bld) [#/Vol] 0.0 10*3/uL Normal 0.0-0.1 [facility]; [facility] Work Phone: Immature granulocytes/100 WBC (Bld) 0 % Normal 0-2 [facility] Work Phone: Comment on above: PATIENT NOT FASTINGP ERFORMED BY: PATRIA LuisRegina Silverio6370 [facility] [id number] Information: 911254,[id number] Lymphocytes (Bld) [#/Vol] 1.0 {x10E3/uL} Normal 0.7-4.5 [facility] Work Phone: Comment on above: PATIENT NOT FASTINGP ERFORMED BY: PATRIA Alvarezlin6370 [facility] [id number] Information: 912550,[id number] Lymphocytes (Bld) [#/Vol] 1.0 10*3/uL Normal 0.7-4.5 [facility]; [facility] Work Phone: Lymphocytes Auto #/vol (Bld) 1.0 {x10E3/uL} Normal 0.7-4.5 [facility] Work Phone: Lymphocytes/100 WBC (Bld) 21 % Normal 14-46 [facility] Work Phone: Comment on above: PATIENT NOT FASTINGP ERFORMED BY: PATRIA [facility] CenterRegina AlvarezDapstj2417 [facility] [id number] Information: [id number] Lymphocytes/100 WBC Auto (Bld) 21 % Normal 14-46 [facility] Work Phone: MCH (RBC) [Entitic mass] 31.3 pg Normal 26.6-33.0 [facility] Work Phone: Comment on above: PATIENT NOT FASTINGP ERFORMED BY: PATRIA [facility]6370 [facility] [id number] Information: 258493,[id number] MCH Auto Entitic mass (RBC) 31.3 pg Normal 26.6-33.0 [facility] Work Phone: MCHC (RBC) [Mass/Vol] 33.8 g/dL Normal 31.5-35.7 [facility] prehensive Internal Medicine Work Phone: Comment on above: PATIENT NOT FASTINGP ERFORMED BY: [facility]6370 [facility] [id number] Information: [id number] MCHC Auto mass conc (RBC) 33.8 g/dL Normal 31.5-35.7 [facility] Work Phone: MCV (RBC) [Entitic vol] 93 fL Normal 79-97 [facility] Work Phone: Comment on above: PATIENT NOT FASTINGP ERFORMED BY: [facility]6370 [facility] [id number] Information: [id number],[id number] MCV Auto Entitic volume (RBC) 93 fL Normal 79-97 [facility] Work Phone: Monocytes (Bld) [#/Vol] 0.5 {x10E3/uL} Normal 0.1-1.0 [facility] Work Phone: Comment on above: PATIENT NOT FASTINGP ERFORMED BY: [facility]6370 [facility] [id number] Information: [id number] Monocytes (Bld) [#/Vol] 0.5 10*3/uL Normal 0.1-1.0 [facility]; [facility] Work Phone: Monocytes Auto #/vol (Bld) 0.5 {x10E3/uL} Normal 0.1-1.0 [facility] Work Phone: Monocytes/100 WBC (Bld) 9 % Normal - [facility] Work Phone: Comment on above: PATIENT NOT FASTINGP ERFORMED BY: [facility]6370 [facility] [id number] Information: [id number] Monocytes/100 WBC Auto (Bld) 9 % Normal - [facility] Work Phone: Neutrophils (Bld) [#/Vol] 3.4 {x10E3/uL} Normal 1.8-7.8 [facility] Work Phone: Comment on above: PATIENT NOT FASTINGP ERFORMED BY: PATRIA Dagobertodesiree Vvuywe9349 [facility] [id number] Information: [id number] Neutrophils (Bld) [#/Vol] 3.4 10*3/uL Normal 1.8-7.8 [facility]; [facility] Work Phone: Neutrophils Auto #/vol (Bld) 3.4 {x10E3/uL} Normal 1.8-7.8 [facility] Work Phone: Neutrophils/100 WBC (Bld) 67 % Normal 40-74 [facility] Work Phone: Comment on above: PATIENT NOT FASTINGP ERFORMED BY: PATRIA Alvarezlin6370 [facility] [id number] Information: 324407,[id number] Neutrophils/100 WBC Auto (Bld) 67 % Normal 40-74 [facility] Work Phone: Platelets (Bld) [#/Vol] 323 {x10E3/uL} Normal 140-415 [facility] Internal Medicine Work Phone: Comment on above: PATIENT NOT FASTINGP ERFORMED BY: PATRIA Silverio6370 [facility] [id number] Information: [id number],[id number] Platelets (Bld) [#/Vol] 323 10*3/uL Normal 140-415 [facility]; [facility] Internal Medicine Work Phone: Platelets Auto #/vol (Bld) 323 {x10E3/uL} Normal 140-415 [facility] Internal Medicine Work Phone: RBC (Bld) [#/Vol] 4.18 {x10E6/uL} Normal 3.77-5.28 [facility] Internal Medicine Work Phone: Comment on above: PATIENT NOT FASTINGP ERFORMED BY: PATRIA LuisRegina Wjgtwg0284 [facility] [id number] Information: [id number] RBC (Bld) [#/Vol] 4.18 10*6/uL Normal 3.77-5.28 [facility]; [facility] Work Phone: RBC Auto #/vol (Bld) 4.18 {x10E6/uL} Normal 3.77-5.28 [facility] Work Phone: WBC (Bld) [#/Vol] 5.1 {x10E3/uL} Normal 4.0-10.5 [facility] Internal Medicine Work Phone: Comment on above: PATIENT NOT FASTINGP ERFORMED BY: PATRIA LabCo Dntdte4973 [facility] [id number] Information: [id number] WBC (Bld) [#/Vol] 5.1 10*3/uL Normal 4.0-10.5 [facility] Internal Medicine; [facility] Work Phone: WBC Auto #/vol (Bld) 5.1 {x10E3/uL} Normal 4.0-10.5 [facility] Internal Medicine Work Phone: METABOLIC PANEL, COMPREHENSI VE ([id number])Ordered By: [employer] Assembler on 03-15-2012 Albumin mass conc 4.2 g/dL Normal 3.6-4.8 [facility] Internal Medicine Work Phone: Comment on above: PATIENT NOT FASTINGP ERFORMED BY: PATRIA LabCodesiree Xtxlmj6050 [facility] [id number] Albumin/Globulin mass ratio 1.4 {ratio} Normal 1.1-2.5 [facility] Internal Medicine Work Phone: Comment on above: PATIENT NOT FASTINGP ERFORMED BY: PATRIA [facility] Ewrarg7211 [facility] [id number] ALP [Catalytic activity/Vol] 130 U/L Normal 25-165 [facility]; [facility] Work Phone: ALP enzyme act/vol 130 [iU]/L Normal 25-165 [facility] Internal Medicine Work Phone: Comment on above: PATIENT NOT FASTINGP ERFORMED BY: PATRIA [facility] Lnlidg7294 [facility] [id number] ALT [Catalytic activity/Vol] 16 U/L Normal 0-40 [facility]; [facility] Internal Medicine Work Phone: ALT enzyme act/vol 16 [iU]/L Normal 0-40 [facility] Internal Medicine Work Phone: Comment on above: PATIENT NOT FASTINGP ERFORMED BY: CB [facility] Suqukb3436 [address] RoadDublin [place] [id number] AST [Catalytic activity/Vol] 23 U/L Normal 0-40 [facility]; [facility] Internal Medicine Work Phone: AST enzyme act/vol 23 [iU]/L Normal 0-40 [facility] Internal Medicine Work Phone: Comment on above: PATIENT NOT FASTINGP ERFORMED BY: PATRIA [facility] Jzrjwf1554 [address] RoadDublin [place] [id number] Bilirubin mass conc 0.5 mg/dL Normal 0.0-1.2 Compr ensive Internal Medicine Work Phone: Comment on above: PATIENT NOT FASTINGP ERFORMED BY: PATRIA [facility] Erhpmu0322 [address] RoadDublin [place] [id number] Calcium mass conc 9.5 mg/dL Normal 8.6-10.2 Compreh [facility] Internal Medicine Work Phone: Comment on above: PATIENT NOT FASTINGP ERFORMED BY: PATRIA [facility] Umyllv1257 [address] RoadDublin [place] [id number] Chloride molar conc 102 mmol/L Normal 97-108 Compr ensive Internal Medicine Work Phone: Comment on above: PATIENT NOT FASTINGP ERFORMED BY: CB [facility] Rsuzra8001 [address] RoadDublin [place] [id number] CO2 molar conc 24 mmol/L Normal 20-32 Comprehens [facility] Internal Medicine Work Phone: Comment on above: PATIENT NOT FASTINGP ERFORMED BY: CB [facility] Gyzfpo5953 [address] RoadDublin [place] [id number] Creatinine mass conc 0.84 mg/dL Normal 0.57-1.00 Comp [facility]ersonensive Internal Medicine Work Phone: Comment on above: PATIENT NOT FASTINGP ERFORMED BY: CB [facility] Ztopot0659 [address]Dublin [place] [id number] GFR/1.73 sq M predicted among blacks CKD-EPI vol rate/area (S/P/Bld) 84 mL/min/1.73 Normal Comprehensiv e Internal Medicine Work Phone: Comment on above: PATIENT NOT FASTINGP ERFORMED BY: CB [facility] Rkbsew9877 [address] RoadDuin [place] [id number] GFR/1.73 sq M predicted among non-blacks CKD-EPI vol rate/area (S/P/Bld) 73 mL/min/1.73 Normal [facility] Work Phone: Comment on above: PATIENT NOT FASTINGP ERFORMED BY: CB [facility] Cnebaq6274 [address] RoadDuin [place] [id number] Globulin (S) [Mass/Vol] 2.9 g/dL Normal 1.5-4.5 [facility] Work Phone: Comment on above: PATIENT NOT FASTINGP ERFORMED BY: CB [facility] Dagrzm0517 [address] RoadCount Includes [facility]in [place] [id number] Globulin Calculated mass conc (S) 2.9 g/dL Normal 1.5-4.5 [facility] Work Phone: Glucose mass conc 110 mg/dL Abnormal 65-99 Compreh ensive Internal Medicine Work Phone: Comment on above: PATIENT NOT FASTINGP ERFORMED BY: CB [facility] Nhjori[address] [facility] [place] [id number] Potassium molar conc 3.5 mmol/L Normal 3.5-5.2 Comp rehensive Internal Medicine Work Phone: Comment on above: PATIENT NOT FASTINGP ERFORMED BY: CB [facility] Nlsirc0014 [address] RoadDuin [place] [id number] Protein mass conc 7.1 g/dL Normal 6.0-8.5 Compreh ensive Internal Medicine Work Phone: Comment on above: PATIENT NOT FASTINGP ERFORMED BY: CB [facility] Sphear3678 [address] RoadDublin [place] [id number] Sodium molar conc 143 mmol/L Normal 134-144 Compreh ensive Internal Medicine Work Phone: Comment on above: PATIENT NOT FASTINGP ERFORMED BY: [facility]6370 [facility] [id number] Urea nitrogen mass conc 14 mg/dL Normal 8-27 [facility] Work Phone: Comment on above: PATIENT NOT FASTINGP ERFORMED BY: [place] [id number] [facility] [id number] Urea nitrogen/Creatinine mass ratio 17 mg/mg Normal 11-26 [facility] Work Phone: Comment on above: PATIENT NOT FASTINGP ERFORMED BY: [facility]6370 [facility] [id number] TSH ([id number])Ordered By: NP Photonicse m Billing Machine Operator on 03-15-2012 Thyrotropin Qn 0.597 {uIU/mL} Normal 0.450-4.50 0 [facility] Work Phone: Comment on above: PATIENT NOT FASTINGP ERFORMED BY: [place] [id number] [facility] [id number] CBC WITH MANUAL DIFF ([id number]) Ordered By: Repair Electric Motor Assembler on 12-13-2011 Basophils (Bld) [#/Vol] 0.0 {x10E3/uL} Normal 0.0-0.2 [facility] Work Phone: Comment on above: PATIENT WAS FASTINGP ERFORMED BY: [facility]6370 [facility] [id number] Information: [id number] Basophils (Bld) [#/Vol] 0.0 10*3/uL Normal 0.0-0.2 [facility]; [facility] Work Phone: Basophils Auto #/vol (Bld) 0.0 {x10E3/uL} Normal 0.0-0.2 [facility] Work Phone: Basophils/100 WBC (Bld) 0 % Normal 0-3 [facility] Work Phone: Comment on above: PATIENT WAS FASTINGP ERFORMED BY: [facility]6370 [facility] [id number] Information: [id number] Basophils/100 WBC Auto (Bld) 0 % Normal 0-3 [facility] Work Phone: Eosinophils (Bld) [#/Vol] 0.1 {x10E3/uL} Normal 0.0-0.4 [facility] Work Phone: Comment on above: PATIENT WAS FASTINGP ERFORMED BY: [place] [id number] [facility] [id number] Information: [id number] Eosinophils (Bld) [#/Vol] 0.1 10*3/uL Normal 0.0-0.4 [facility]; [facility] Work Phone: Eosinophils Auto #/vol (Bld) 0.1 {x10E3/uL} Normal 0.0-0.4 [facility] Work Phone: Eosinophils/100 WBC (Bld) 2 % Normal 0-7 [facility] Work Phone: Comment on above: PATIENT WAS FASTINGP ERFORMED BY: [place] [id number] [facility] [id number] Information: [id number] Eosinophils/100 WBC Auto (Bld) 2 % Normal 0-7 [facility] Work Phone: Erythrocyte distribution width (RBC) [Ratio] 13.7 % Normal 11.7-15.0 [facility] Work Phone: Comment on above: PATIENT WAS FASTINGP ERFORMED BY: [place] [id number] [facility] [id number] Information: [id number] Erythrocyte distribution width Auto Ratio (RBC) 13.7 % Normal 11.7-15.0 [facility] Work Phone: Hematocrit (Bld) [Volume fraction] 40.1 % Normal 34.0-44.0 [facility] Work Phone: Comment on above: PATIENT WAS FASTINGP ERFORMED BY: PATRIA [facility]6370 [facility] [id number] Information: [id number] Hematocrit Auto Volume Fraction (Bld) 40.1 % Normal 34.0-44.0 [facility] Internal Medicine Work Phone: Hemoglobin mass conc (Bld) 13.6 g/dL Normal 11.5-15.0 [facility] Work Phone: Comment on above: PATIENT WAS FASTINGP ERFORMED BY: PATRIA [place] [id number] [facility] [id number] Information: [id number] Immature granulocytes #/vol (Bld) 0.0 {x10E3/uL} Normal 0.0-0.1 [facility] Work Phone: Comment on above: PATIENT WAS FASTINGP ERFORMED BY: PATRIA [place] [id number] [facility] [id number] Information: [id number] Immature granulocytes (Bld) [#/Vol] 0.0 10*3/uL Normal 0.0-0.1 [facility]; [facility] Work Phone: Immature granulocytes/100 WBC (Bld) 0 % Normal 0-2 [facility] Work Phone: Comment on above: PATIENT WAS FASTINGP ERFORMED BY: PATRIA [place] [id number] [facility] [id number] Information: [id number] Lymphocytes (Bld) [#/Vol] 1.3 {x10E3/uL} Normal 0.7-4.5 [facility] Work Phone: Comment on above: PATIENT WAS FASTINGP ERFORMED BY: [place] [id number] [facility] [id number] Information: [id number] Lymphocytes (Bld) [#/Vol] 1.3 10*3/uL Normal 0.7-4.5 [facility]; [facility] Work Phone: Lymphocytes Auto #/vol (Bld) 1.3 {x10E3/uL} Normal 0.7-4.5 [facility] Work Phone: Lymphocytes/100 WBC (Bld) 30 % Normal 14-46 [facility] Work Phone: Comment on above: PATIENT WAS FASTINGP ERFORMED BY: PATRIA [address] [id number] Information: [id number] Lymphocytes/100 WBC Auto (Bld) 30 % Normal 14-46 [facility] Work Phone: MCH (RBC) [Entitic mass] 31.1 pg Normal 27.0-34.0 [facility] Work Phone: Comment on above: PATIENT WAS FASTINGP ERFORMED BY: PATRIA [facility] Laser CenterImpactGames[address] [id number] Information: [id number] MCH Auto Entitic mass (RBC) 31.1 pg Normal 27.0-34.0 [facility] Internal Medicine Work Phone: MCHC (RBC) [Mass/Vol] 33.9 g/dL Normal 32.0-36.0 [facility] Internal Medicine Work Phone: Comment on above: PATIENT WAS FASTINGP ERFORMED BY: PATRIA [facility]6370 [facility] [id number] Information: [id number] MCHC Auto mass conc (RBC) 33.9 g/dL Normal 32.0-36.0 [facility] Internal Medicine Work Phone: MCV (RBC) [Entitic vol] 92 fL Normal 80-98 [facility] Internal Medicine Work Phone: Comment on above: PATIENT WAS FASTINGP ERFORMED BY: PATRIA [place] [id number] [facility] [id number] Information: [id number] MCV Auto Entitic volume (RBC) 92 fL Normal 80-98 [facility] Work Phone: Monocytes (Bld) [#/Vol] 0.4 {x10E3/uL} Normal 0.1-1.0 [facility] Work Phone: Comment on above: PATIENT WAS FASTINGP ERFORMED BY: [place] [id number] [facility] [id number] Information: [id number] Monocytes (Bld) [#/Vol] 0.4 10*3/uL Normal 0.1-1.0 [facility]; [facility] Work Phone: Monocytes Auto #/vol (Bld) 0.4 {x10E3/uL} Normal 0.1-1.0 [facility] Work Phone: Monocytes/100 WBC (Bld) 8 % Normal 4-13 [facility] Work Phone: Comment on above: PATIENT WAS FASTINGP ERFORMED BY: [place] [id number] [facility] [id number] Information: [id number] Monocytes/100 WBC Auto (Bld) 8 % Normal 4-13 [facility] Work Phone: Neutrophils (Bld) [#/Vol] 2.5 {x10E3/uL} Normal 1.8-7.8 [facility] Work Phone: Comment on above: PATIENT WAS FASTINGP ERFORMED BY: [facility]6370 [facility] [id number] Information: [id number] Neutrophils (Bld) [#/Vol] 2.5 10*3/uL Normal 1.8-7.8 [facility]; [facility] Work Phone: Neutrophils Auto #/vol (Bld) 2.5 {x10E3/uL} Normal 1.8-7.8 [facility] Work Phone: Neutrophils/100 WBC (Bld) 60 % Normal 40-74 [facility] Work Phone: Comment on above: PATIENT WAS FASTINGP ERFORMED BY: PATRAI [facility]Be[facility]umont Hospital6370 [facility] [id number] Information: [id number] Neutrophils/100 WBC Auto (Bld) 60 % Normal 40-74 [facility] Work Phone: Platelets (Bld) [#/Vol] 202 {x10E3/uL} Normal 140-415 [facility] Work Phone: Comment on above: PATIENT WAS FASTINGP ERFORMED BY: PATRIA [place] [id number] [facility] [id number] Information: [id number] Platelets (Bld) [#/Vol] 202 10*3/uL Normal 140-415 [facility] Internal Medicine; [facility] Internal Medicine Work Phone: Platelets Auto #/vol (Bld) 202 {x10E3/uL} Normal 140-415 [facility] Internal Medicine Work Phone: RBC (Bld) [#/Vol] 4.37 {x10E6/uL} Normal 3.80-5.10 [facility] Internal Medicine Work Phone: Comment on above: PATIENT WAS FASTINGP ERFORMED BY: PATRIA [address] [id number] Information: [id number] RBC (Bld) [#/Vol] 4.37 10*6/uL Normal 3.80-5.10 [facility]; [facility] Work Phone: RBC Auto #/vol (Bld) 4.37 {x10E6/uL} Normal 3.80-5.10 [facility] Internal Medicine Work Phone: WBC (Bld) [#/Vol] 4.2 {x10E3/uL} Normal 4.0-10.5 [facility] Internal Medicine Work Phone: Comment on above: PATIENT WAS FASTINGP ERFORMED BY: PATRIA [facility]6370 [facility] [id number] Information: [id number] WBC (Bld) [#/Vol] 4.2 10*3/uL Normal 4.0-10.[address] [facility] Internal Medicine; [facility] Work Phone: WBC Auto #/vol (Bld) 4.2 {x10E3/uL} Normal 4.0-10.5 [facility] Work Phone: LIPID PANEL ([id number])Ordered B y: Repair Electric Motor Assembler on 12-13-2011 Cholesterol in HDL mass conc 65 mg/dL Normal [facility] Work Phone: Comment on above: According to ATP-III Guidelines, HDL-C >59 mg/dL is considered anegative risk factor for CHD. PATIENT WAS FASTINGP ERFORMED BY: PATRIA Lab[facility]odesiree Ilnszg4[address] ReqlutPsychiatric hospital [id number] Cholesterol in LDL mass conc 100 mg/dL Abnormal 0-99 [facility] Work Phone: Comment on above: PATIENT WAS FASTINGP ERFORMED BY: PATRIA [facility] Wngdkl[address] [facility] [id number] Cholesterol in LDL/Cholesterol in HDL mass ratio 1.5 {ratio_units} Normal 0.0-3.2 [facility] Work Phone: Comment on above: PATIENT WAS FASTINGP ERFORMED BY: PATRIA [facility] Leinxl[address] [facility] [id number] Cholesterol in VLDL mass conc 36 mg/dL Normal 5-40 [facility] Work Phone: Comment on above: PATIENT WAS FASTINGP ERFORMED BY: PATRIA [facility] Mepwet[address] [facility] [place] [id number] Cholesterol mass conc 201 mg/dL Abnormal 100-199 [facility] prehensive Internal Medicine Work Phone: Comment on above: PATIENT WAS FASTINGP ERFORMED BY: PATRIA [facility] Amfeei[address] [facility]in [place] [id number] Triglyceride mass conc 180 mg/dL Abnormal 0-149 [facility] Work Phone: Comment on above: PATIENT WAS FASTINGP ERFORMED BY: PATRIA [facility] Hgixdd[address] [facility] [id number] METABOLIC PANEL, COMPREHENSI VE ([id number])Ordered By: Repair Electric Motor Assembler on 12-13-2011 Albumin mass conc 4.1 g/dL Normal 3.6-4.8 [facility] Internal Medicine Work Phone: Comment on above: PATIENT WAS FASTINGP ERFORMED BY: [facility] Pvkcva2551 [address] Roadblin [place] [id number] Albumin/Globulin mass ratio 1.5 {ratio} Normal 1.1-2.5 [facility] Internal Medicine Work Phone: Comment on above: PATIENT WAS FASTINGP ERFORMED BY: [facility] Fdnfev1029 [address] RoadCount Includes [facility]in [place] [id number] ALP [Catalytic activity/Vol] 83 U/L Normal 25-165 [facility]; [facility] Internal Medicine Work Phone: ALP enzyme act/vol 83 [iU]/L Normal 25-165 [facility] Internal Medicine Work Phone: Comment on above: PATIENT WAS FASTINGP ERFORMED BY: [facility] Ltjzti0232 [address] RoadCount Includes [facility]in [place] [id number] ALT [Catalytic activity/Vol] 14 U/L Normal 0-40 [facility]; [facility] Internal Medicine Work Phone: ALT enzyme act/vol 14 [iU]/L Normal 0-40 [facility] Internal Medicine Work Phone: Comment on above: PATIENT WAS FASTINGP ERFORMED BY: [facility] Ahqgig7035 [address] RoadCount Includes [facility]in [place] [id number] AST [Catalytic activity/Vol] 22 U/L Normal 0-40 [facility]; [facility] Internal Medicine Work Phone: AST enzyme act/vol 22 [iU]/L Normal 0-40 [facility] Internal Medicine Work Phone: Comment on above: PATIENT WAS FASTINGP ERFORMED BY: [facility] Ilhoiy6288 [address] Roadblin [place] [id number] Bilirubin mass conc 0.5 mg/dL Normal 0.0-1.2 [facility] Internal Medicine Work Phone: Comment on above: PATIENT WAS FASTINGP ERFORMED BY: CB [facility] Vhdqnq0491 [address] RoadDublin [place] [id number] Calcium mass conc 9.7 mg/dL Normal 8.6-10.2 Compreh ensive Internal Medicine Work Phone: Comment on above: PATIENT WAS FASTINGP ERFORMED BY: CB [facility] Ebozvt3739 [address] RoadDublin [place] [id number] Chloride molar conc 104 mmol/L Normal 97-108 Compr ehensive Internal Medicine Work Phone: Comment on above: PATIENT WAS FASTINGP ERFORMED BY: CB [facility] Gjfgwa7812 [address] RoadDublin [place] [id number] CO2 molar conc 25 mmol/L Normal 20-32 Comprehens kit Internal Medicine Work Phone: Comment on above: PATIENT WAS FASTINGP ERFORMED BY: CB [facility] Ckauke2553 [address] RoadDuin [place] [id number] Creatinine mass conc 0.80 mg/dL Normal 0.57-1.00 Comp rehensive Internal Medicine Work Phone: Comment on above: PATIENT WAS FASTINGP ERFORMED BY: CB [facility] Msyces[address] [facility] [id number] GFR/1.73 sq M predicted among blacks MDRD vol rate/area (S/P/Bld) 89 mL/min/{1.73_m2} Normal Comprehe nsive Internal Medicine Work Phone: Comment on above: Note: A persistent e GFR <60 mL/min/1.73 m2 (3 months or more) mayindicate chronic kidney disease. An eGFR >59 mL/min/1.73 m2 with anelevated urine protein also may indicate chronic kidney disease.Calculated using CKD-EPI formula. PATIENT WAS FASTINGP ERFORMED BY: CB [facility] Qnhobb2003 Mc[address] RoadPsychiatric hospital [id number] GFR/1.73 sq M predicted among non-blacks CKD-EPI vol rate/area (S/P/Bld) 77 mL/min/1.73 Normal [facility] Work Phone: Comment on above: PATIENT WAS FASTINGP ERFORMED BY: PATRIA Lab[facility] Dfcsvs3257 [address] Roadblin [place] [id number] Globulin (S) [Mass/Vol] 2.8 g/dL Normal 1.5-4.5 [facility] Work Phone: Comment on above: PATIENT WAS FASTINGP ERFORMED BY: PATRIA [facility] Xwihos1236 [address] Roadblin [place] [id number] Globulin Calculated mass conc (S) 2.8 g/dL Normal 1.5-4.5 [facility] Work Phone: Glucose mass conc 86 mg/dL Normal 65-99 Compreh ensive Internal Medicine Work Phone: Comment on above: PATIENT WAS FASTINGP ERFORMED BY: PATRIA Alvarezlin[address] [facility] [place] [id number] Potassium molar conc 4.0 mmol/L Normal 3.5-5.2 Comp rehensive Internal Medicine Work Phone: Comment on above: PATIENT WAS FASTINGP ERFORMED BY: PATRIA [place]ren[place] Nsefiy[address] [facility]in [place] [id number] Protein mass conc 6.9 g/dL Normal 6.0-8.5 Compreh ensive Internal Medicine Work Phone: Comment on above: PATIENT WAS FASTINGP ERFORMED BY: PATRIA Alvarezlin[address] [facility] [id number] Sodium molar conc 142 mmol/L Normal 134-144 Compreh ensive Internal Medicine Work Phone: Comment on above: PATIENT WAS FASTINGP ERFORMED BY: PATRIA [facility] Krngsx5[address] [facility]in [place] [id number] Urea nitrogen mass conc 18 mg/dL Normal 8-27 [facility] Work Phone: Comment on above: PATIENT WAS FASTINGP ERFORMED BY: PATRIA [facility] Slkuiv7181 [address] Roadblin [place] [id number] Urea nitrogen/Creatinine mass ratio 23 mg/mg Normal 11-26 [facility] Work Phone: Comment on above: PATIENT WAS FASTINGP ERFORMED BY: PATRIA [facility] Okmcwn7074 [address] RoadDublin [place] [id number] Microscopic ExaminationOrder ed By: Repair Electric Motor Assembler on 12-13-2011 Bacteria LM.HPF #/area (Urine sed) [...] 5 [facility] Work Phone: TSH ([id number])Ordered By: Syste m Billing Machine Operator on 12-13-2011 Thyrotropin Qn 1.170 {uIU/mL} Normal 0.450-4.50 0 [facility] Work Phone: Comment on above: PATIENT WAS FASTINGP ERFORMED BY: PATRIA [facility] Kggjgo7423 [address] RoadDublin [place] [id number] URINALYSIS, W/ MICRO ([id number]) Ordered By: Repair Electric Motor Assembler on 12-13-2011 Appearance Nom (U) Clear Normal Compre hensive Internal Medicine Work Phone: Comment on above: PATIENT WAS FASTINGP ERFORMED BY: PATRIA [facility] Wbswet8504 [address] RoadDublin [place] [id number] Bilirubin Ql (U) Negative Normal Comprehe nsive Internal Medicine Work Phone: Comment on above: PATIENT WAS FASTINGP ERFORMED BY: PATRIA [facility] Ozeszd4650 [address] RoadDublin [place] [id number] Bilirubin Ql (U) Negative Normal Comprehe nsive Internal Medicine; [facility] Work Phone: Color Nom (U) Yellow Normal Comprehensi ve Internal Medicine Work Phone: Comment on above: PATIENT WAS FASTINGP ERFORMED BY: PATRIA [facility] Gxqezb7263 [address] RoadDublin [place] [id number] Glucose Ql (U) Negative Normal Comprehens kit Internal Medicine Work Phone: Comment on above: PATIENT WAS FASTINGP ERFORMED BY: PATRIA [facility] Osogvr3665 [address] RoadDublin [place] [id number] Glucose Ql (U) Negative Normal Comprehens kit Internal Medicine; [facility] Work Phone: Hemoglobin Ql (U) Negative Normal Compreh ensive Internal Medicine Work Phone: Comment on above: PATIENT WAS FASTINGP ERFORMED BY: PATRIA [facility] Rblyld7839 [address] RoadDublin [place] [id number] Hemoglobin Ql (U) Negative Normal Compreh ensive Internal Medicine; [facility] Work Phone: Hemoglobin Test strip Ql (U) Negative Normal [facility] Work Phone: Ketones Ql (U) Negative Normal Comprehens kit Internal Medicine Work Phone: Comment on above: PATIENT WAS FASTINGP ERFORMED BY: PATRIA Alvarezlin6370 [address] RoadDublin [place] [id number] Ketones Ql (U) Negative Normal Comprehens kit Internal Medicine; [facility] Work Phone: Leukocyte esterase Test strip Ql (U) 1+ Abnormal [facility] Work Phone: Comment on above: PATIENT WAS FASTINGP ERFORMED BY: PATRIA LabReg[facility] AlvarezOnfhro8816 [address] RoadDublin [place] [id number] Microscopic observation LM Nom (Urine sed) See below: Normal [facility] Work Phone: Comment on above: PATIENT WAS FASTINGP ERFORMED BY: PATRIA [facility] Fjbkgt4590 [address] RoadDublin [place] [id number] Nitrite Ql (U) Negative Normal Comprehens kit Internal Medicine Work Phone: Comment on above: PATIENT WAS FASTINGP ERFORMED BY: PATRIA [facility] Ujaipk0909 [address] RoadDublin [place] [id number] Nitrite Ql (U) Negative Normal Comprehens kit Internal Medicine; [facility] Work Phone: Nitrite Test strip Ql (U) Negative Normal [facility] Work Phone: pH (U) 7.0 [pH] Normal 5.0-7.5 [facility] Work Phone: Comment on above: PATIENT WAS FASTINGP ERFORMED BY: PATRIA CabaraRegina AlvarezDufuie5163 The Mad VideoFrye [facility] Center [id number] pH Test strip (U) 7.0 [pH] Normal 5.0-7.5 Compreh ensive Internal Medicine Work Phone: Protein Ql (U) Negative Normal Comprehens kit Internal Medicine Work Phone: Comment on above: PATIENT WAS FASTINGP ERFORMED BY: PATRIA CabaraRegina AlvarezYnqqgx1609 [facility] Mad VideoFrye Regional Medical Center [id number] Protein Ql (U) Negative Normal Comprehens kit Internal Medicine; [facility] Work Phone: Protein Test strip Ql (U) Negative Normal [facility] Work Phone: Specific gravity Relative Density (U) 1.017 1 Normal 1.005-1.03 0 [facility] Work Phone: Comment on above: PATIENT WAS FASTINGP ERFORMED BY: PATRIA Yoolidesiree AlvarezClblvn5866 [place] [facility] [id number] Urobilinogen (U) [Mass/Vol] 0.2 mg/dL Normal 0.0-1.9 [facility]; [facility] Work Phone: Urobilinogen Test strip mass conc (U) 0.2 mg/dL Normal 0.0-1.9 Comprehensiv e Internal Medicine Work Phone: Comment on above: PATIENT WAS FASTINGP ERFORMED BY: PATRIA General Blood6370 [facility] [id number] Pathology ReportOrdered By: Repair Electric Motor Assembler on 08-12-2011 Pathology report site of origin Narrative MATER Normal Comprehensiv e Internal Medicine Work Phone: Comment on above: Material submitted: .BACKClinical history: .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 Normal Comprehens kit Internal Medicine Work Phone: Comment on above: Source.............C ervical;EndocervicalLMP / Prev Treat...OCA=[id number]. of containers..01 CYTYC Thin Prep VialPATIENT NOT FASTINGPERFORMED BY: LabCo[address] [id number] Information: [id number] Pathology report final diagnosis Narrative SPRCS Normal [facility] Work Phone: Comment on above: NEGATIVE FOR INTRAEP ITHELIAL LESION AND MALIGNANCY.CELLULAR CHANGES ASSOCIATED WITH ATROPHY ARE PRESENT.THIS SPECIMEN WAS RESCREENED PART OF OUR CHIEF BUILDING INSPECTOR PROGRAM.Satisfactory for evaluation. Endocervical component may not bedistinguished in cases of atrophy.Allie Villafuerte, Dye Lab Technician (ASC)Parul Singh, Supervisory Dye Lab Technician (ASCP) Source.............C ervical;EndocervicalLMP / Prev Treat...NTA=[id number]. of containers..01 CYTYC Thin Prep VialPATIENT NOT FASTINGPERFORMED BY: kompany [facility] CenterOrangeSodaIntermountain Medical Center [id number] Information: [id number] Thin prep Pap (88010) PAPSMR Normal [facility] prehensive Internal Medicine Work Phone: Comment on [...] was performed. . Source.............C ervical;EndocervicalLMP / Prev Treat...NWZ=149071Ir. of containers..01 CYTYC Thin Prep VialPATIENT NOT FASTINGPERFORMED BY: kompany [facility] Clevelandi2O WaterIntermountain Medical Center [id number] Information: [id number] KIDNEYOrdered By: System Jerry ager on 07-04-2011 [...] MD HEPATIC FUNCTION PANEL (8007 6)Ordered By: Repair Electric Motor Assembler on 06-20-2011 Albumin mass conc 4.5 g/dL Normal 3.6-4.8 Compreh ensive Internal Medicine Work Phone: Comment on above: PATIENT WAS FASTINGP ERFORMED BY: LabCoChilton Memorial HospitalJgsphh7428 [facility] [id number] Information: [id number]; appt 06/30/11 ALP [Catalytic activity/Vol] 86 U/L Normal 25-165 [facility] Internal Medicine; [facility] Internal Medicine Work Phone: ALP enzyme act/vol 86 [iU]/L Normal 25-165 [facility] Internal Medicine Work Phone: Comment on above: PATIENT WAS FASTINGP ERFORMED BY: PATRIA LabCo Ustmcs3662 [facility] [id number] Information: [id number]; appt 06/30/11 ALT [Catalytic activity/Vol] 12 U/L Normal 0-40 [facility] Internal Medicine; [facility] Internal Medicine Work Phone: ALT enzyme act/vol 12 [iU]/L Normal 0-40 [facility] Internal Medicine Work Phone: Comment on above: PATIENT WAS FASTINGP ERFORMED BY: PATRIA LabSaint [facility] Htceqg1158 [facility] [id number] Information: [id number]; appt 06/30/11 AST [Catalytic activity/Vol] 19 U/L Normal 0-40 [facility] Internal Medicine; [facility] Internal Medicine Work Phone: AST enzyme act/vol 19 [iU]/L Normal 0-40 [facility] Internal Medicine Work Phone: Comment on above: PATIENT WAS FASTINGP ERFORMED BY: PATRIA LabMiguel Angel Cjdede7022 [facility] [id number] Information: [id number]; appt 06/30/11 Bilirubin mass conc 0.6 mg/dL Normal 0.0-1.2 [facility] Work Phone: Comment on above: PATIENT WAS FASTINGP ERFORMED BY: PATRIA LabCo Ijalee2876 [facility] [id number] Information: [id number]; appt 06/30/11 Bilirubin.direct mass conc 0.17 mg/dL Normal 0.00-0.40 [facility] Internal Medicine Work Phone: Comment on above: PATIENT WAS FASTINGP ERFORMED BY: PATRIA LabBeaumont Hospital6370 [place] [facility] [id number] Information: [id number]; appt 06/30/11 Protein mass conc 6.8 g/dL Normal 6.0-8.5 Compreh ensive Internal Medicine Work Phone: Comment on above: PATIENT WAS FASTINGP ERFORMED BY: PATRIA Dagobertodesiree AlvarezLnbrah6130 [place] [facility] [id number] Information: [id number]; appt 06/30/11 LIPID PANEL (34072)Ordered B y: Repair Electric Motor Assembler on 06-20-2011 Cholesterol in HDL mass conc 74 mg/dL Normal [facility] Work Phone: Comment on above: According to ATP-III Guidelines, HDL-C >59 mg/dL is considered anegative risk factor for CHD. PATIENT WAS FASTINGP ERFORMED BY: PTARIA LuisRegina AlvarzeRqksoi8244 [facility] [id number] Cholesterol in LDL mass conc 97 mg/dL Normal 0-99 [facility] Work Phone: Comment on above: PATIENT WAS FASTINGP ERFORMED BY: PATRIA LabRegina AlvarezAdqtkj6897 [place] [facility] [id number] Cholesterol in LDL/Cholesterol in HDL mass ratio 1.3 {ratio_units} Normal 0.0-3.2 [facility] Work Phone: Comment on above: PATIENT WAS FASTINGP ERFORMED BY: PATRIA LabRegina AlvarezKyazdu8815 [facility] [id number] Cholesterol in VLDL mass conc 21 mg/dL Normal 5-40 [facility] Work Phone: Comment on above: PATIENT WAS FASTINGP ERFORMED BY: PATRIA LabCodesiree Balirl2068 [place] [facility]in [place] [id number] Cholesterol mass conc 192 mg/dL Normal 100-199 [facility] prehensive Internal Medicine Work Phone: Comment on above: PATIENT WAS FASTINGP ERFORMED BY: PATRIA LabRegina Quqkav6759 [place] [facility] [id number] Triglyceride mass conc 105 mg/dL Normal 0-149 [facility] Work Phone: Comment on above: PATIENT WAS FASTINGP ERFORMED BY: [facility]6[address] [place] [facility] [id number] BILAT SCRN DIGITAL & CADOrde red By: Repair Electric Motor Assembler on 06-15-2011 BILAT SCRN DIGITAL & CAD [...] Rabago MD Amylase, SerumOrdered By: Denis stem Billing Machine Operator on 10-25-2010 Amylase enzyme act/vol 63 U/L Normal 31-124 [facility] Work Phone: Celiac Disease Comprehensive Ordered By: Repair Electric Motor Assembler on 10-25-2010 Endomysium IgA Ql (S) Negative Normal Com prehensive Internal Medicine Work Phone: Gliadin peptide IgA Qn (S) 5 {units} Normal 0-19 [facility] Internal Medicine Work Phone: Comment on above: Negative 0 - 19 Weak Positive 20 - 30 Moderate to Strong Positive >30 Gliadin peptide IgG Qn (S) 4 {units} Normal 0-19 [facility] Internal Medicine Work Phone: Comment on above: Negative 0 - 19 Weak Positive 20 - 30 Moderate to Strong Positive >30 IgA mass conc 301 mg/dL Normal 70-400 Comprehensi Internal Medicine Work Phone: Tissue transglutaminase IgA Qn (S) <2 Normal 0-3 [facility] Internal Medicine Work Phone: Comment on above: Negative 0 - 3 Weak Positive 4 - 10 Positive >10 . Tissue Transglutaminase (tTG) has been identified as the endomysial antigen. Studies have demonstr- ated that endomysial IgA antibodies have over 99% specificity for gluten sensitive enteropathy. Tissue transglutaminase IgG Qn (S) <2 Normal 0-5 [facility] Internal Medicine Work Phone: Comment on above: Negative 0 - 5 Weak Positive 6 - 9 Positive >9 H pylori, IgM, IgG, IgA AbOr dered By: Repair Electric Motor Assembler on 10-25-2010 H. pylori IgG IA Qn (S) {index_val} Normal 0.0-0.8 [facility] Internal Medicine Work Phone: Comment on above: Negative <0.9 Indete rminate 0.9 - 1.0 Positive >1.0 H pylori, IgM, IgG, IgA Ab <0.80 Normal 0.00-0.79 [facility] Internal Medicine Work Phone: [...] IgG, IgA Ab 1.79 {index} Abnormal 0.00-0.88 [facility] Internal Medicine Work Phone: Comment on above: Negative <0.89 Equiv ocal 0.89 - 0.99 Positive >0.99 Hepatic Function Panel (7)Or dered By: Repair Electric Motor Assembler on 10-25-2010 Albumin mass conc 4.6 g/dL Normal 3.6-4.8 Compreh ensive Internal Medicine Work Phone: ALP enzyme act/vol 99 [iU]/L Normal 25-165 Compre [facility] Internal Medicine Work Phone: ALT enzyme act/vol 14 [iU]/L Normal 0-40 [facility] Internal Medicine Work Phone: AST enzyme act/vol 20 [iU]/L Normal 0-[address] [facility] Internal Medicine Work Phone: Bilirubin mass conc 0.8 mg/dL Normal 0.0-1.2 [facility] Work Phone: Bilirubin.direct mass conc 0.25 mg/dL Normal 0.00-0.40 [facility] Internal Medicine Work Phone: Protein mass conc 7.4 g/dL Normal 6.0-8.5 Compreh [facility] Internal Medicine Work Phone: Lipase, SerumOrdered By: Javi tem Billing Machine Operator on 10-25-2010 Lipase enzyme act/vol 37 U/L Normal 0-59 Com prehensive Internal Medicine Work Phone: DEXA BONE DENSITY STUDY (HP) Ordered By: Repair Electric Motor Assembler on 09-09-2010 DEXA BONE DENSITY STUDY (HP) See Note Normal [facility] Internal Medicine Work Phone: Comment on above: CLINICAL:Postmenopau charles EXAMINATION:DUAL ENERGY X-RAY ABSORPTIOMETRY / DEXA. TECHNIQUE:Bone Density Measurements (BMD) of lumbar spine and bilateral hips wereobtained using a [employer] scanner.. COMPARISON:July 24, 2007 FINDINGS: Lumbar Spine [...] by: Vipin Melendez PELVIC (NON )Ordered By: Repair Electric Motor Assembler on 09-08-2010 PELVIC (NON ) See Note [...] Remberto,TheresaTranscribed on 09/10/102035 by ITS IMPORTSign by BioSilta,Sonja on 09/10/102036 Sign by: Sonja Sr CLINICAL:64-year-old [...] free fluid. Dictated on 09/08/10 1411 by [place],TheresaTranscribed on 09/13/10 1400 by ITS IMPORTSign by Sonja Sr on 09/13/10 1401 Sign by: Sonja Sr ABDOMEN/PELVIS WITH CONTRAST Ordered By: Repair Electric Motor Assembler on 08-31-2010 ABDOMEN/PELVIS WITH CONTRAST See Note [...] Work Phone: COMP METABOLICOrdered By: Denis stem Billing Machine Operator on 08-31-2010 Albumin mass conc 4.1 g/dL Normal 3.4-5.0 Compreh ensive Internal Medicine Work Phone: Albumin/Globulin mass ratio 1.1 {RATIO} Normal 0.9-2.4 [facility] Internal Medicine Work Phone: ALP enzyme act/vol 101 U/L Normal 50-[address] [facility] Internal Medicine Work Phone: ALT enzyme act/vol 21 U/L Normal 12-78 [facility] Internal Medicine Work Phone: Anion gap 3 molar conc 12 mmol/L Normal 5-15 [facility] Internal Medicine Work Phone: AST enzyme act/vol 13 U/L Abnormal 15-37 [facility] Internal Medicine Work Phone: Bilirubin mass conc 0.80 mg/dL Normal 0.00-1.00 Compr ensive Internal Medicine Work Phone: Calcium mass conc 10.3 mg/dL Abnormal 8.5-10.1 Compreh ensive Internal Medicine Work Phone: Chloride molar conc 101 mmol/L Normal 98-107 Compr ensive Internal Medicine Work Phone: CO2 molar conc 28.0 mmol/L Normal 21.0-32.0 Comprehen [facility] Internal Medicine Work Phone: Creatinine mass conc [...] hensive Internal Medicine Work Phone: Urinalysis, Office ([id number])Or dered By: Elizabet Johnston on 08-31-2010 Bilirubin [...] Medicine Work Phone: CBC with manual diff (03572) Ordered By: Repair Electric Motor Assembler on 08-17-2010 Basophils (Bld) [#/Vol] 0.0 {x10E3/uL} Normal 0.0-0.2 [facility] Work Phone: Comment on above: PATIENT WAS FASTINGP ERFORMED BY: LabCoChilton Memorial HospitalGbfgdp8483 [facility] [id number] Information: [id number] Basophils (Bld) [#/Vol] 0.0 10*3/uL Normal 0.0-0.2 [facility]; [facility] Work Phone: Basophils Auto #/vol (Bld) 0.0 {x10E3/uL} Normal 0.0-0.2 [facility] Work Phone: Basophils/100 WBC (Bld) 0 % Normal 0-3 [facility] Work Phone: Comment on above: PATIENT WAS FASTINGP ERFORMED BY: PATRIA [place] [id number] [facility] [id number] Information: [id number] Basophils/100 WBC Auto (Bld) 0 % Normal 0-3 [facility] Work Phone: Eosinophils (Bld) [#/Vol] 0.1 {x10E3/uL} Normal 0.0-0.4 [facility] Work Phone: Comment on above: PATIENT WAS FASTINGP ERFORMED BY: PATRIA [address] [id number] Information: [id number] Eosinophils (Bld) [#/Vol] 0.1 10*3/uL Normal 0.0-0.4 [facility]; [facility] Work Phone: Eosinophils Auto #/vol (Bld) 0.1 {x10E3/uL} Normal 0.0-0.4 [facility] Work Phone: Eosinophils/100 WBC (Bld) 1 % Normal 0-7 [facility] Work Phone: Comment on above: PATIENT WAS FASTINGP ERFORMED BY: [place] [id number] [facility] [id number] Information: [id number] Eosinophils/100 WBC Auto (Bld) 1 % Normal 0-7 [facility] Work Phone: Erythrocyte distribution width (RBC) [Ratio] 13.6 % Normal 11.7-15.0 [facility] Work Phone: Comment on above: PATIENT WAS FASTINGP ERFORMED BY: [place] [id number] [facility] [id number] Information: [id number] Erythrocyte distribution width Auto Ratio (RBC) 13.6 % Normal 11.7-15.0 [facility] Work Phone: Hematocrit (Bld) [Volume fraction] 41.8 % Normal 34.0-44.0 [facility] Work Phone: Comment on above: PATIENT WAS FASTINGP ERFORMED BY: PATRIA [facility] Laser CenterRegina AlvarezAhkbtv4677 [facility] [id number] Information: [id number] Hematocrit Auto Volume Fraction (Bld) 41.8 % Normal 34.0-44.0 [facility] Internal Medicine Work Phone: Hemoglobin mass conc (Bld) 14.1 g/dL Normal 11.5-15.0 [facility] Work Phone: Comment on above: PATIENT WAS FASTINGP ERFORMED BY: PATRIA [facility] Dkadbm9879 [facility] [id number] Information: [id number] Immature granulocytes #/vol (Bld) 0.0 {x10E3/uL} Normal 0.0-0.1 [facility] Work Phone: Comment on above: PATIENT WAS FASTINGP ERFORMED BY: PATRIA [facility] Afcjyx6954 [facility] [id number] Information: [id number] Immature granulocytes (Bld) [#/Vol] 0.0 10*3/uL Normal 0.0-0.1 [facility]; [facility] Work Phone: Immature granulocytes/100 WBC (Bld) 0 % Normal 0-1 [facility] Work Phone: Comment on above: PATIENT WAS FASTINGP ERFORMED BY: PATRIA LabBeaumont Hospital6370 [facility] [id number] Information: [id number] Lymphocytes (Bld) [#/Vol] 1.3 {x10E3/uL} Normal 0.7-4.5 [facility] Work Phone: Comment on above: PATIENT WAS FASTINGP ERFORMED BY: PATRIA LabShawn Ville 0597670 [facility] [id number] Information: [id number] Lymphocytes (Bld) [#/Vol] 1.3 10*3/uL Normal 0.7-4.5 [facility]; [facility] Work Phone: Lymphocytes Auto #/vol (Bld) 1.3 {x10E3/uL} Normal 0.7-4.5 [facility] Work Phone: Lymphocytes/100 WBC (Bld) 26 % Normal - [facility] Work Phone: Comment on above: PATIENT WAS FASTINGP ERFORMED BY: [place] [id number] [facility] [id number] Information: [id number] Lymphocytes/100 WBC Auto (Bld) 26 % Normal - [facility] Work Phone: MCH (RBC) [Entitic mass] 31.3 pg Normal 27.0-34.0 [facility] Work Phone: Comment on above: PATIENT WAS FASTINGP ERFORMED BY: PATRIA [facility] Laser CenterImpactGamesChilton Memorial HospitalXfxadq7073 [facility] [id number] Information: [id number] MCH Auto Entitic mass (RBC) 31.3 pg Normal 27.0-34.0 [facility] Internal Medicine Work Phone: MCHC (RBC) [Mass/Vol] 33.7 g/dL Normal 32.0-36.0 [facility] prehmetrohealth [facility] campus [facility] Internal Medicine Work Phone: Comment on above: PATIENT WAS FASTINGP ERFORMED BY: CabaraSh[place] 0597670 [facility] [id number] Information: [id number] MCHC Auto mass conc (RBC) 33.7 g/dL Normal 32.0-36.0 [facility] Internal Medicine Work Phone: MCV (RBC) [Entitic vol] 93 fL Normal 80-98 [facility] Work Phone: Comment on above: PATIENT WAS FASTINGP ERFORMED BY: YooliDawn [place] [id number] [facility] [id number] Information: [id number] MCV Auto Entitic volume (RBC) 93 fL Normal 80-98 [facility] Work Phone: Monocytes (Bld) [#/Vol] 0.4 {x10E3/uL} Normal 0.1-1.0 [facility] Work Phone: Comment on above: PATIENT WAS FASTINGP ERFORMED BY: [facility]6370 [facility] [id number] Information: [id number] Monocytes (Bld) [#/Vol] 0.4 10*3/uL Normal 0.1-1.0 [facility]; [facility] Work Phone: Monocytes Auto #/vol (Bld) 0.4 {x10E3/uL} Normal 0.1-1.0 [facility] Work Phone: Monocytes/100 WBC (Bld) 8 % Normal 12-22 [facility] Work Phone: Comment on above: PATIENT WAS FASTINGP ERFORMED BY: [facility]6370 [facility] [id number] Information: [id number] Monocytes/100 WBC Auto (Bld) 8 % Normal - [facility] Work Phone: Neutrophils (Bld) [#/Vol] 3.3 {x10E3/uL} Normal 1.8-7.8 [facility] Work Phone: Comment on above: PATIENT WAS FASTINGP ERFORMED BY: [facility]6370 [facility] [id number] Information: [id number] Neutrophils (Bld) [#/Vol] 3.3 10*3/uL Normal 1.8-7.8 [facility]; [facility] Work Phone: Neutrophils Auto #/vol (Bld) 3.3 {x10E3/uL} Normal 1.8-7.8 [facility] Work Phone: Neutrophils/100 WBC (Bld) 65 % Normal 40-74 [facility] Work Phone: Comment on above: PATIENT WAS FASTINGP ERFORMED BY: PATRIA Silverio6370 [facility] [id number] Information: [id number] Neutrophils/100 WBC Auto (Bld) 65 % Normal 40-74 [facility] Work Phone: Platelets (Bld) [#/Vol] 235 {x10E3/uL} Normal 140-415 [facility] Work Phone: Comment on above: PATIENT WAS FASTINGP ERFORMED BY: PATRIA Alvarezlin6370 [facility] [id number] Information: [id number] Platelets (Bld) [#/Vol] 235 10*3/uL Normal 140-415 [facility]; [facility] Work Phone: Platelets Auto #/vol (Bld) 235 {x10E3/uL} Normal 140-415 [facility] Work Phone: RBC (Bld) [#/Vol] 4.51 {x10E6/uL} Normal 3.80-5.10 [facility] Internal Medicine Work Phone: Comment on above: PATIENT WAS FASTINGP ERFORMED BY: PATRIA Alvarezlin6370 [facility] [id number] Information: [id number] RBC (Bld) [#/Vol] 4.51 10*6/uL Normal 3.80-5.10 [facility]; [facility] Work Phone: RBC Auto #/vol (Bld) 4.51 {x10E6/uL} Normal 3.80-5.10 [facility] Work Phone: WBC (Bld) [#/Vol] 5.1 {x10E3/uL} Normal 4.0-10.5 [facility] Internal Medicine Work Phone: Comment on above: PATIENT WAS FASTINGP ERFORMED BY: CB [facility] Gzmalg3999 [place] [facility] [id number] Information: [id number] WBC (Bld) [#/Vol] 5.1 10*3/uL Normal 4.0-10.[address] [facility] Internal Medicine; [facility] Work Phone: WBC Auto #/vol (Bld) 5.1 {x10E3/uL} Normal 4.0-10.5 [facility] Work Phone: Lipid Panel ([id number])Ordered B y: Repair Electric Motor Assembler on 08-17-2010 Cholesterol in HDL mass conc 60 mg/dL Normal [facility] Work Phone: Comment on above: According to ATP-III Guidelines, HDL-C >59 mg/dL is considered anegative risk factor for CHD. PATIENT WAS FASTINGP ERFORMED BY: PATRIA LabMiguel Angel Guptis1926 [facility] [id number] Cholesterol in LDL mass conc 139 mg/dL Abnormal 0-99 [facility] Work Phone: Comment on above: PATIENT WAS FASTINGP ERFORMED BY: PATRIA LabCo Orbwlr8442 [facility] [id number] Cholesterol in LDL/Cholesterol in HDL mass ratio 2.3 {ratio_units} Normal 0.0-3.2 [facility] Work Phone: Comment on above: PATIENT WAS FASTINGP ERFORMED BY: PATRIA LabCo Xvspfa6583 [facility] [id number] Cholesterol in VLDL mass conc 39 mg/dL Normal 5-40 [facility] Work Phone: Comment on above: PATIENT WAS FASTINGP ERFORMED BY: PATRIA [facility] Thuodt7939 [place] [facility] [id number] Cholesterol mass conc 238 mg/dL Abnormal 100-199 [facility] prehensive Internal Medicine Work Phone: Comment on above: PATIENT WAS FASTINGP ERFORMED BY: PATRIA LabCo Vgxbey3667 [facility] [id number] Triglyceride mass conc 197 mg/dL Abnormal 0-149 [facility] Work Phone: Comment on above: PATIENT WAS FASTINGP ERFORMED BY: PATRIA [facility] Tzqxna8925 [address] Roadbl[address] [place] [id number] Metabolic Panel, Comprehensi ve ([id number])Ordered By: Repair Electric Motor Assembler on 08-17-2010 Albumin mass conc 4.3 g/dL Normal 3.6-4.8 Compreh [facility] Internal Medicine Work Phone: Comment on above: PATIENT WAS FASTINGP ERFORMED BY: PATRIA [facility] Holjha[address] [place] [id number] Albumin/Globulin mass ratio 1.6 {ratio} Normal 1.1-2.5 [facility] Work Phone: Comment on above: PATIENT WAS FASTINGP ERFORMED BY: PATRIA LabCodesiree AlvarezFipxsy9260 [address] Roadblin [place] [id number] ALP [Catalytic activity/Vol] 92 U/L Normal 25-165 [facility]; [facility] Internal Medicine Work Phone: ALP enzyme act/vol 92 [iU]/L Normal 25-165 [facility] Internal Medicine Work Phone: Comment on above: PATIENT WAS FASTINGP ERFORMED BY: PATRIA LabCodesiree AlvarezFrmbch2277 [address] [facility] [place] [id number] ALT [Catalytic activity/Vol] 12 U/L Normal 0-40 [facility]; [facility] [facility] Internal Medicine Work Phone: ALT enzyme act/vol 12 [iU]/L Normal 0-40 [facility] Internal Medicine Work Phone: Comment on above: PATIENT WAS FASTINGP ERFORMED BY: PATRIA [facility] Omtmyo99[address]Count Includes [facility] [place] [id number] AST [Catalytic activity/Vol] 20 U/L Normal 0-40 [facility]; [facility] Internal Medicine Work Phone: AST enzyme act/vol 20 [iU]/L Normal 0-40 [facility] Internal Medicine Work Phone: Comment on above: PATIENT WAS FASTINGP ERFORMED BY: PATRIA [facility] Hwixne4[address]Count Includes [facility]in [place] [id number] Bilirubin mass conc 0.6 mg/dL Normal 0.0-1.2 Compr ehensive Internal Medicine Work Phone: Comment on above: PATIENT WAS FASTINGP ERFORMED BY: PATRIA [facility] Gpuhfu[address] [facility] [id number] Calcium mass conc 9.3 mg/dL Normal 8.6-10.2 Compreh ensive Internal Medicine Work Phone: Comment on above: PATIENT WAS FASTINGP ERFORMED BY: CB [facility] Kdtoeg7856 [facility] [id number] Chloride molar conc 103 mmol/L Normal 97-108 Compr ehensive Internal Medicine Work Phone: Comment on above: PATIENT WAS FASTINGP ERFORMED BY: PATRIA LabCodesiree Xbqrpd6545 [facility] [id number] CO2 molar conc 26 mmol/L Normal 20-32 Comprehens kit Internal Medicine Work Phone: Comment on above: PATIENT WAS FASTINGP ERFORMED BY: CB [facility] Bwbgux6924 [facility] [id number] Creatinine mass conc 0.82 mg/dL Normal 0.57-1.00 Comp rehensive Internal Medicine Work Phone: Comment on above: PATIENT WAS FASTINGP ERFORMED BY: [facility] Yhyhvd9640 [facility] [id number] GFR/1.73 sq M predicted among blacks MDRD [...] PATIENT WAS FASTINGP ERFORMED BY: CB [facility] Pxbktv5033 [address] [facility] [id number] GFR/1.73 sq M.predicted MDRD (S/P/Bld) [Vol rate/Area] mL/min/{1.73_m2} Normal [facility] Work Phone: Comment on above: PATIENT WAS FASTINGP ERFORMED BY: PATRIA [facility]6370 [facility] [id number] GFR/1.73 sq M.predicted MDRD vol rate/area mL/min/{1.73_m2} Normal [facility] Work Phone: Comment on above: PATIENT WAS FASTINGP ERFORMED BY: PATRIA [facility]6370 [facility] [id number] Globulin (S) [Mass/Vol] 2.7 g/dL Normal 1.5-4.5 [facility] Work Phone: Comment on above: PATIENT WAS FASTINGP ERFORMED BY: PATRIA [place] [id number] [facility] [id number] Globulin Calculated mass conc (S) 2.7 g/dL Normal 1.5-4.5 [facility] Work Phone: Glucose mass conc 93 mg/dL Normal 65-99 Compreh ensive Internal Medicine Work Phone: Comment on above: PATIENT WAS FASTINGP ERFORMED BY: PATRIA [facility]6370 [facility] [id number] Potassium molar conc 4.2 mmol/L Normal 3.5-5.2 Comp rehensive Internal Medicine Work Phone: Comment on above: PATIENT WAS FASTINGP ERFORMED BY: [facility]6370 [facility] [id number] Protein mass conc 7.0 g/dL Normal 6.0-8.5 Compreh ensive Internal Medicine Work Phone: Comment on above: PATIENT WAS FASTINGP ERFORMED BY: [facility]6370 [facility] [id number] Sodium molar conc 142 mmol/L Normal 135-145 Compreh ensive Internal Medicine Work Phone: Comment on above: PATIENT WAS FASTINGP ERFORMED BY: [place] [id number] [facility] [id number] Urea nitrogen mass conc 17 mg/dL Normal 5-26 [facility] Work Phone: Comment on above: PATIENT WAS FASTINGP ERFORMED BY: [facility]6370 [facility] [id number] Urea nitrogen/Creatinine mass ratio 21 mg/mg Normal 8-27 [facility] Work Phone: Comment on above: PATIENT WAS FASTINGP ERFORMED BY: [facility]6370 [facility] [id number] Microscopic ExaminationOrder ed By: Repair Electric Motor Assembler on 08-17-2010 Bacteria LM.HPF #/area (Urine sed) [...] 5 [facility] Work Phone: TSH ([id number])Ordered By: Syste m Billing Machine Operator on 08-17-2010 Thyrotropin Qn 1.020 {uIU/mL} Normal 0.450-4.50 0 [facility] Work Phone: Comment on above: PATIENT WAS FASTINGP ERFORMED BY: [facility]6370 [facility] [id number] URINALYSIS ([id number])Ordered By : [employer] Electric Motor Assembler on 08-17-2010 Appearance Nom (U) Clear Normal Compre hensive Internal Medicine Work Phone: Comment on above: PATIENT WAS FASTINGP ERFORMED BY: [facility]6370 [facility] [id number] Bilirubin Ql (U) Negative Normal Comprehe nsive Internal Medicine Work Phone: Comment on above: PATIENT WAS FASTINGP ERFORMED BY: PATRIA Alvarezlin6[address] RoadDublin [place] [id number] Bilirubin Ql (U) Negative Normal Comprehe nsive Internal Medicine; [facility] Work Phone: Color Nom (U) Yellow Normal Comprehensi ve Internal Medicine Work Phone: Comment on above: PATIENT WAS FASTINGP ERFORMED BY: PATRIA Silverio6[address]Dublin [place] [id number] Glucose Ql (U) Negative Normal Comprehens kit Internal Medicine Work Phone: Comment on above: PATIENT WAS FASTINGP ERFORMED BY: PATRIA Alvarezlin[address]Dublin [place] [id number] Glucose Ql (U) Negative Normal Comprehens kit Internal Medicine; [facility] Work Phone: Hemoglobin Ql (U) Negative Normal Compreh ensive Internal Medicine Work Phone: Comment on above: PATIENT WAS FASTINGP ERFORMED BY: PATRIA Alvarezlin[address]Dublin [place] [id number] Hemoglobin Ql (U) Negative Normal Compreh ensive Internal Medicine; [facility] Work Phone: Hemoglobin Test strip Ql (U) Negative Normal [facility] Work Phone: Ketones Ql (U) Negative Normal Comprehens kit Internal Medicine Work Phone: Comment on above: PATIENT WAS FASTINGP ERFORMED BY: PATRIA Silverio[address]Dublin [place] [id number] Ketones Ql (U) Negative Normal Comprehens kit Internal Medicine; [facility] Work Phone: Leukocyte esterase Test strip Ql (U) 1+ Abnormal [facility] Work Phone: Comment on above: PATIENT WAS FASTINGP ERFORMED BY: PATRIA Alvarezlin[address]Dublin [place] [id number] Microscopic observation LM Nom (Urine sed) See below: Normal [facility] Work Phone: Comment on above: PATIENT WAS FASTINGP ERFORMED BY: PATRIA Arenasrp Hskkrc0182 [address] RoadDublin [place] [id number] Nitrite Ql (U) Negative Normal Comprehens kit Internal Medicine Work Phone: Comment on above: PATIENT WAS FASTINGP ERFORMED BY: PATRIA [facility] Yvubtw7676 [address] RoadDublin [place] [id number] Nitrite Ql (U) Negative Normal Comprehens kit Internal Medicine; [facility] Work Phone: Nitrite Test strip Ql (U) Negative Normal [facility] Work Phone: pH (U) 8.0 [pH] Abnormal 5.0-7.5 [facility] Work Phone: Comment on above: PATIENT WAS FASTINGP ERFORMED BY: PATRIA [facility] Ndsimk9166 [address] RoadDublin [place] [id number] pH Test strip (U) 8.0 [pH] Abnormal 5.0-7.5 Compreh ensive Internal Medicine Work Phone: Protein Ql (U) Negative Normal Comprehens kit Internal Medicine Work Phone: Comment on above: PATIENT WAS FASTINGP ERFORMED BY: PATRIA [facility] Oiqctp32[address]Count Includes [facility] [place] [id number] Protein Ql (U) Negative Normal Comprehens kit Internal Medicine; [facility] Work Phone: Protein Test strip Ql (U) Negative Normal [facility] Work Phone: Specific gravity Relative Density (U) 1.019 1 Normal 1.005-1.03 0 [facility] Work Phone: Comment on above: PATIENT WAS FASTINGP ERFORMED BY: PATRIA [facility] Bmcvac0[address]Count Includes [facility]in [place] [id number] Urobilinogen (U) [Mass/Vol] 0.2 mg/dL Normal 0.0-1.9 [facility]; [facility] Work Phone: Urobilinogen Test strip mass conc (U) 0.2 mg/dL Normal 0.0-1.9 Comprehensiv e Internal Medicine Work Phone: Comment on above: PATIENT WAS FASTINGP ERFORMED BY: YooliChilton Memorial HospitalTnrchr2288 [facility] [id number] UNILAT LT DIAG DIGITAL & CAD Ordered By: Repair Electric Motor Assembler on 04-19-2010 UNILAT LT DIAG DIGITAL & CAD See Note Normal [facility] Work Phone: Comment on above: Exam Number: [id number] MAMMOGRAPHY - UNILATERAL DIAGNOSTIC: BREAST INDICATION:Six [...] of attaching a ResultCode to this exam.ADDENDUM: [id number] HPBI/MUDDL Reported By: SWATI FLOREZ M.D. CBC WITH MANUAL DIFF ([id number]) Ordered By: [employer] Electric Motor Assembler on 03-01-2010 Basophils (Bld) [#/Vol] 0.0 {x10E3/uL} Normal 0.0-0.2 [facility] Work Phone: Comment on above: PATIENT WAS FASTINGP ERFORMED BY: [facility] Gmrvpo5016 [facility] [id number] Information: [id number] Basophils (Bld) [#/Vol] 0.0 10*3/uL Normal 0.0-0.2 [facility]; [facility] Work Phone: Basophils Auto #/vol (Bld) 0.0 {x10E3/uL} Normal 0.0-0.2 [facility] Work Phone: Basophils/100 WBC (Bld) 0 % Normal 0-3 [facility] Work Phone: Comment on above: PATIENT WAS FASTINGP ERFORMED BY: BringIt[address] [facility]Psychiatric hospital [id number] Information: [id number] Basophils/100 WBC Auto (Bld) 0 % Normal 0-3 [facility] Work Phone: Eosinophils (Bld) [#/Vol] 0.1 {x10E3/uL} Normal 0.0-0.4 [facility] Work Phone: Comment on above: PATIENT WAS FASTINGP ERFORMED BY: Neomatrix[address] ReqlutPsychiatric hospital [id number] Information: [id number] Eosinophils (Bld) [#/Vol] 0.1 10*3/uL Normal 0.0-0.4 [facility]; [facility] Work Phone: Eosinophils Auto #/vol (Bld) 0.1 {x10E3/uL} Normal 0.0-0.4 [facility] Work Phone: Eosinophils/100 WBC (Bld) 1 % Normal 0-7 [facility] Work Phone: Comment on above: PATIENT WAS FASTINGP ERFORMED BY: YooliChilton Memorial HospitalYjomlg2672 [facility] [id number] Information: [id number] Eosinophils/100 WBC Auto (Bld) 1 % Normal 0-7 [facility] Work Phone: Erythrocyte distribution width (RBC) [Ratio] 13.3 % Normal 11.7-15.0 [facility] Work Phone: Comment on above: PATIENT WAS FASTINGP ERFORMED BY: [facility]6370 [facility] [id number] Information: [id number] Erythrocyte distribution width Auto Ratio (RBC) 13.3 % Normal 11.7-15.0 [facility] Work Phone: Hematocrit (Bld) [Volume fraction] 38.5 % Normal 34.0-44.0 [facility] Work Phone: Comment on above: PATIENT WAS FASTINGP ERFORMED BY: [facility]6370 [facility] [id number] Information: [id number] Hematocrit Auto Volume Fraction (Bld) 38.5 % Normal 34.0-44.0 [facility] Internal Medicine Work Phone: Hemoglobin mass conc (Bld) 13.8 g/dL Normal 11.5-15.0 [facility] Work Phone: Comment on above: PATIENT WAS FASTINGP ERFORMED BY: [place] [id number] [facility] [id number] Information: [id number] Immature granulocytes #/vol (Bld) 0.0 {x10E3/uL} Normal 0.0-0.1 [facility] Work Phone: Comment on above: PATIENT WAS FASTINGP ERFORMED BY: [facility]6370 [facility] [id number] Information: [id number] Immature granulocytes (Bld) [#/Vol] 0.0 10*3/uL Normal 0.0-0.1 [facility]; [facility] Work Phone: Immature granulocytes/100 WBC (Bld) 0 % Normal 0-1 [facility] Work Phone: Comment on above: PATIENT WAS FASTINGP ERFORMED BY: [facility]6370 [facility] [id number] Information: [id number] Lymphocytes (Bld) [#/Vol] 1.1 {x10E3/uL} Normal 0.7-4.5 [facility] Work Phone: Comment on above: PATIENT WAS FASTINGP ERFORMED BY: PATRIA Alvarezlin6370 [facility] [id number] Information: [id number] Lymphocytes (Bld) [#/Vol] 1.1 10*3/uL Normal 0.7-4.5 [facility]; [facility] Work Phone: Lymphocytes Auto #/vol (Bld) 1.1 {x10E3/uL} Normal 0.7-4.5 [facility] Work Phone: Lymphocytes/100 WBC (Bld) 24 % Normal [facility] Work Phone: Comment on above: PATIENT WAS FASTINGP ERFORMED BY: PATRIA [facility] Pqgyld6418 [facility] [id number] Information: [id number] Lymphocytes/100 WBC Auto (Bld) 24 % Normal - [facility] Work Phone: MCH (RBC) [Entitic mass] 32.2 pg Normal 27.0-34.0 [facility] Internal Medicine Work Phone: Comment on above: PATIENT WAS FASTINGP ERFORMED BY: PATRIA Alvarezlin6370 [facility] [id number] Information: [id number] MCH Auto Entitic mass (RBC) 32.2 pg Normal 27.0-34.0 [facility] Internal Medicine Work Phone: MCHC (RBC) [Mass/Vol] 35.8 g/dL Normal 32.0-36.0 [facility] Internal Medicine Work Phone: Comment on above: PATIENT WAS FASTINGP ERFORMED BY: PATRIA [place] 0664970 [facility] [id number] Information: [id number] MCHC Auto mass conc (RBC) 35.8 g/dL Normal 32.0-36.0 [facility] Internal Medicine Work Phone: MCV (RBC) [Entitic vol] 90 fL Normal 80-98 [facility] Work Phone: Comment on above: PATIENT WAS FASTINGP ERFORMED BY: PATRIA [place] 0664970 [facility] [id number] Information: [id number] MCV Auto Entitic volume (RBC) 90 fL Normal 80-98 [facility] Work Phone: Monocytes (Bld) [#/Vol] 0.5 {x10E3/uL} Normal 0.1-1.0 [facility] Work Phone: Comment on above: PATIENT WAS FASTINGP ERFORMED BY: PATRIA [place] 0664970 [facility] [id number] Information: [id number] Monocytes (Bld) [#/Vol] 0.5 10*3/uL Normal 0.1-1.0 [facility]; [facility] Work Phone: Monocytes Auto #/vol (Bld) 0.5 {x10E3/uL} Normal 0.1-1.0 [facility] Work Phone: Monocytes/100 WBC (Bld) 10 % Normal 12-22 [facility] Work Phone: Comment on above: PATIENT WAS FASTINGP ERFORMED BY: [place] [id number] [facility] [id number] Information: [id number] Monocytes/100 WBC Auto (Bld) 10 % Normal - [facility] Work Phone: Neutrophils (Bld) [#/Vol] 3.1 {x10E3/uL} Normal 1.8-7.8 [facility] Work Phone: Comment on above: PATIENT WAS FASTINGP ERFORMED BY: [place] [id number] [facility] [id number] Information: [id number] Neutrophils (Bld) [#/Vol] 3.1 10*3/uL Normal 1.8-7.8 [facility]; [facility] Work Phone: Neutrophils Auto #/vol (Bld) 3.1 {x10E3/uL} Normal 1.8-7.8 [facility] Work Phone: Neutrophils/100 WBC (Bld) 65 % Normal 40-74 [facility] Work Phone: Comment on above: PATIENT WAS FASTINGP ERFORMED BY: PATRIA YooliCrownpoint Healthcare FacilityIbftss3406 [facility] [id number] Information: [id number] Neutrophils/100 WBC Auto (Bld) 65 % Normal 40-74 [facility] Work Phone: Platelets (Bld) [#/Vol] 204 {x10E3/uL} Normal 140-415 [facility] Work Phone: Comment on above: PATIENT WAS FASTINGP ERFORMED BY: PATRIA Yooli Wsubtu7991 [facility] [id number] Information: [id number] Platelets (Bld) [#/Vol] 204 10*3/uL Normal 140-415 [facility]; [facility] Work Phone: Platelets Auto #/vol (Bld) 204 {x10E3/uL} Normal 140-415 [facility] Work Phone: RBC (Bld) [#/Vol] 4.29 {x10E6/uL} Normal 3.80-5.10 [facility] Internal Medicine Work Phone: Comment on above: PATIENT WAS FASTINGP ERFORMED BY: YooliChilton Memorial HospitalGrnoim3556 [facility] [id number] Information: [id number] RBC (Bld) [#/Vol] 4.29 10*6/uL Normal 3.80-5.10 [facility]; [facility] Work Phone: RBC Auto #/vol (Bld) 4.29 {x10E6/uL} Normal 3.80-5.10 [facility] Work Phone: WBC (Bld) [#/Vol] 4.7 {x10E3/uL} Normal 4.0-10.5 [facility] prehensive Internal Medicine Work Phone: Comment on above: PATIENT WAS FASTINGP ERFORMED BY: PATRIA Yoolirp Novfef5761 [facility] [id number] Information: [id number] WBC (Bld) [#/Vol] 4.7 10*3/uL Normal 4.0-10.5 [facility] Internal Medicine; [facility] Work Phone: WBC Auto #/vol (Bld) 4.7 {x10E3/uL} Normal 4.0-10.5 [facility] Work Phone: LIPID PANEL ([id number])Ordered B y: Repair Electric Motor Assembler on 03-01-2010 Cholesterol in HDL mass conc 63 mg/dL Normal [facility] Work Phone: Comment on above: According to ATP-III Guidelines, HDL-C >59 mg/dL is considered anegative risk factor for CHD. PATIENT WAS FASTINGP ERFORMED BY: PATRIA [facility] ReqlutPsychiatric hospital [id number] Cholesterol in LDL mass conc 82 mg/dL Normal 0-99 [facility] Work Phone: Comment on above: PATIENT WAS FASTINGP ERFORMED BY: PATRIA LabImpactGamesrp Sggfnm6820 [facility] [id number] Cholesterol in LDL/Cholesterol in HDL mass ratio 1.3 {ratio_units} Normal 0.0-3.2 [facility] Work Phone: Comment on above: PATIENT WAS FASTINGP ERFORMED BY: PATRIA [facility] Pebwxf2598 [address] [facility]qlutPsychiatric hospital [id number] Cholesterol in VLDL mass conc 39 mg/dL Normal 5-40 [facility] Work Phone: Comment on above: PATIENT WAS FASTINGP ERFORMED BY: PATRIA LabImpactGamesrp Xftclp4359 [facility] [id number] Cholesterol mass conc 184 mg/dL Normal 100-199 [facility] prehensive Internal Medicine Work Phone: Comment on above: PATIENT WAS FASTINGP ERFORMED BY: PATRIA LabCodesiree Tpdupj36[address] [facility] [id number] Triglyceride mass conc 193 mg/dL Abnormal 0-149 [facility] Work Phone: Comment on above: PATIENT WAS FASTINGP ERFORMED BY: PATRIA [facility] Ekvvgu8791 [facility] [id number] METABOLIC PANEL, COMPREHENSI VE ([id number])Ordered By: Repair Electric Motor Assembler on 03-01-2010 Albumin mass conc 4.1 g/dL Normal 3.6-4.8 Compreh ensive Internal Medicine Work Phone: Comment on above: PATIENT WAS FASTINGP ERFORMED BY: PATRIA LabMiguel Angel Dnijui2276 [facility] [id number] Albumin/Globulin mass ratio 1.6 {ratio} Normal 1.1-2.5 [facility] Work Phone: Comment on above: PATIENT WAS FASTINGP ERFORMED BY: [facility] Qhexlg2531 [facility] [id number] ALP [Catalytic activity/Vol] 88 U/L Normal 25-165 [facility]; [facility] Internal Medicine Work Phone: ALP enzyme act/vol 88 [iU]/L Normal 25-165 [facility] Internal Medicine Work Phone: Comment on above: PATIENT WAS FASTINGP ERFORMED BY: [facility] Ilgmvl2155 [facility] [id number] ALT [Catalytic activity/Vol] 13 U/L Normal 0-40 [facility]; [facility] Work Phone: ALT enzyme act/vol 13 [iU]/L Normal 0-40 [facility] Internal Medicine Work Phone: Comment on above: PATIENT WAS FASTINGP ERFORMED BY: PATRIA [facility] Uhqnvq1853 [facility] [id number] AST [Catalytic activity/Vol] 21 U/L Normal 0-40 [facility]; [facility] Internal Medicine Work Phone: AST enzyme act/vol 21 [iU]/L Normal 0-40 Compre [facility] Internal Medicine Work Phone: Comment on above: PATIENT WAS FASTINGP ERFORMED BY: PATRIA [facility] Sdnceb2953 [address] [facility] [id number] Bilirubin mass conc 0.6 mg/dL Normal 0.0-1.2 [facility] Work Phone: Comment on above: PATIENT WAS FASTINGP ERFORMED BY: CB [facility] Dnxkvl1915 [address] [facility] [id number] Calcium mass conc 9.3 mg/dL Normal 8.6-10.2 Compreh ensive Internal Medicine Work Phone: Comment on above: PATIENT WAS FASTINGP ERFORMED BY: PATRIA [facility] Ejsomu6442 [facility] [id number] Chloride molar conc 102 mmol/L Normal 97-108 Compr [facility] Internal Medicine Work Phone: Comment on above: PATIENT WAS FASTINGP ERFORMED BY: PATRIA [facility] Jppfrt7620 [facility] [id number] CO2 molar conc 26 mmol/L Normal 20-32 Comprehens [facility] Internal Medicine Work Phone: Comment on above: PATIENT WAS FASTINGP ERFORMED BY: PATRIA [facility] Ycnflo9532 [facility] [id number] Creatinine mass conc 0.85 mg/dL Normal 0.57-1.00 Comp [facility] Internal Medicine Work Phone: Comment on above: PATIENT WAS FASTINGP ERFORMED BY: [facility] Ifsqnf3616 [facility] [id number] GFR/1.73 sq M predicted among blacks MDRD [...] [email or web address]. PATIENT WAS FASTINGP ERFORMED BY: PATRIA [facility]6370 [facility] [id number] GFR/1.73 sq M.predicted MDRD (S/P/Bld) [Vol rate/Area] mL/min/{1.73_m2} Normal [facility] Work Phone: Comment on above: PATIENT WAS FASTINGP ERFORMED BY: [facility]6370 [facility] [id number] GFR/1.73 sq M.predicted MDRD vol rate/area mL/min/{1.73_m2} Normal [facility] Work Phone: Comment on above: PATIENT WAS FASTINGP ERFORMED BY: PATRIA [facility]6370 [facility] [id number] Globulin (S) [Mass/Vol] 2.5 g/dL Normal 1.5-4.5 [facility] Work Phone: Comment on above: PATIENT WAS FASTINGP ERFORMED BY: [place] [id number] [facility] [id number] Globulin Calculated mass conc (S) 2.5 g/dL Normal 1.5-4.5 [facility] Work Phone: Glucose mass conc 86 mg/dL Normal 65-99 Compreh ensive Internal Medicine Work Phone: Comment on above: PATIENT WAS FASTINGP ERFORMED BY: [facility]6370 [facility] [id number] Potassium molar conc 3.7 mmol/L Normal 3.5-5.2 Comp rehensive Internal Medicine Work Phone: Comment on above: PATIENT WAS FASTINGP ERFORMED BY: [facility] [facility]6370 [facility] [id number] Protein mass conc 6.6 g/dL Normal 6.0-8.5 Compreh ensive Internal Medicine Work Phone: Comment on above: PATIENT WAS FASTINGP ERFORMED BY: [facility]6370 [facility] [id number] Sodium molar conc 141 mmol/L Normal 135-145 Compreh ensive Internal Medicine Work Phone: Comment on above: PATIENT WAS FASTINGP ERFORMED BY: [facility]6370 [facility] [id number] Urea nitrogen mass conc 18 mg/dL Normal 5-26 [facility] Work Phone: Comment on above: PATIENT WAS FASTINGP ERFORMED BY: [facility]6370 [facility] [id number] Urea nitrogen/Creatinine mass ratio 21 mg/mg Normal 8-27 [facility] Work Phone: Comment on above: PATIENT WAS FASTINGP ERFORMED BY: [facility]6370 [facility] [id number] Microscopic ExaminationOrder ed By: Repair Electric Motor Assembler on 03-01-2010 Bacteria LM.HPF #/area (Urine sed) [...] Internal Medicine Work Phone: T3, FREE (TRIDOTHYRONINE) ([id number])Ordered By: Repair Electric Motor Assembler on 03-01-2010 T3 free mass conc 2.7 pg/mL Normal 2.0-4.4 Compreh ensive Internal Medicine Work Phone: Comment on above: PATIENT WAS FASTINGP ERFORMED BY: [facility]6370 [facility] [id number] T4, FREE (THYROXINE) ([id number]) Ordered By: Repair Electric Motor Assembler on 03-01-2010 T4 free mass conc 0.93 ng/dL Normal 0.82-1.77 Compreh ensive Internal Medicine Work Phone: Comment on above: PATIENT WAS FASTINGP ERFORMED BY: PATRIA LabCo Rdntpc8385 Mcguire RoadDublin [place] [id number] TSH ([id number])Ordered By: NP Photonicse m Billing Machine Operator on 03-01-2010 Thyrotropin Qn 0.687 {uIU/mL} Normal 0.450-4.50 0 [facility] Work Phone: Comment on above: PATIENT WAS FASTINGP ERFORMED BY: PATRIA LabCo Utvuap6396 [address] RoadDublin [place] [id number] URINALYSIS W/O MICRO ([id number]) Ordered By: Rep[employer] Electric Motor Assembler on 03-01-2010 Appearance Nom (U) Clear Normal Compre hensive Internal Medicine Work Phone: Comment on above: PATIENT WAS FASTINGP ERFORMED BY: PATRIA LabMiguel Angel Jonqmn0411 [address]Dublin [place] [id number] Bilirubin Ql (U) Negative Normal Comprehe nsive Internal Medicine Work Phone: Comment on above: PATIENT WAS FASTINGP ERFORMED BY: PATRIA [facility] Jvzkdx8593 [address]gu[address] RoadDublin [place] [id number] Bilirubin Ql (U) Negative Normal Comprehe nsive Internal Medicine; [facility] Work Phone: Color Nom (U) Yellow Normal Comprehensi ve Internal Medicine Work Phone: Comment on above: PATIENT WAS FASTINGP ERFORMED BY: PATRIA LabCo Yqhyvn3956 [address] RoadDublin [place] [id number] Glucose Ql (U) Negative Normal Comprehens kit Internal Medicine Work Phone: Comment on above: PATIENT WAS FASTINGP ERFORMED BY: PATRIA LabCo Ujchvb3417 [address] RoadDublin [place] [id number] Glucose Ql (U) Negative Normal Comprehens kit Internal Medicine; [facility] Work Phone: Hemoglobin Ql (U) Negative Normal Compreh ensive Internal Medicine Work Phone: Comment on above: PATIENT WAS FASTINGP ERFORMED BY: PATRIA Alvarezlin6370 [address] RoadPsychiatric hospital [id number] Hemoglobin Ql (U) Negative Normal Compreh ensive Internal Medicine; [facility] Work Phone: Hemoglobin Test strip Ql (U) Negative Normal [facility] Work Phone: Ketones Ql (U) Negative Normal Comprehens kit Internal Medicine Work Phone: Comment on above: PATIENT WAS FASTINGP ERFORMED BY: PATRIA Alvarezlin6370 [address] RoadDuin [place] [id number] Ketones Ql (U) Negative Normal Comprehens kit Internal Medicine; [facility] Work Phone: Leukocyte esterase Test strip Ql (U) Trace Abnormal [facility] Work Phone: Comment on above: PATIENT WAS FASTINGP ERFORMED BY: PATRIA Alvarezlin6370 [facility] [id number] Microscopic observation LM Nom (Urine sed) See below: Normal [facility] Work Phone: Comment on above: PATIENT WAS FASTINGP ERFORMED BY: PATRIA Alvarezlin[address] [facility] [id number] Nitrite Ql (U) Negative Normal Comprehens kit Internal Medicine Work Phone: Comment on above: PATIENT WAS FASTINGP ERFORMED BY: PATRIA Silverio[address] [facility] [id number] Nitrite Ql (U) Negative Normal Comprehens kit Internal Medicine; [facility] Work Phone: Nitrite Test strip Ql (U) Negative Normal [facility] Work Phone: pH (U) 8.0 [pH] Abnormal 5.0-7.5 [facility] Work Phone: Comment on above: PATIENT WAS FASTINGP ERFORMED BY: PATRIA Alvarezlin[address] [facility] [id number] pH Test strip (U) 8.0 [pH] Abnormal 5.0-7.5 Compreh ensive Internal Medicine Work Phone: Protein Ql (U) Trace Normal Comprehens kit Internal Medicine Work Phone: Comment on above: PATIENT WAS FASTINGP ERFORMED BY: LabCo Mulfbj9191 [facility] [id number] Protein Test strip Ql (U) Trace Normal [facility] Work Phone: Specific gravity Relative Density (U) 1.025 1 Normal 1.005-1.03 0 [facility] Work Phone: Comment on above: PATIENT WAS FASTINGP ERFORMED BY: LabCo Keazir8825 [facility] [id number] Urobilinogen (U) [Mass/Vol] 0.2 mg/dL Normal 0.0-1.9 [facility]; [facility] Work Phone: Urobilinogen Test strip mass conc (U) 0.2 mg/dL Normal 0.0-1.9 Comprehensiv e Internal Medicine Work Phone: Comment on above: PATIENT WAS FASTINGP ERFORMED BY: [facility]6370 [facility] [id number] BILAT DIAG DIGITAL & CADOrde red By: Repair Electric Motor Assembler on 10-14-2009 BILAT DIAG DIGITAL & CAD See Note Normal [facility] Work Phone: Comment on above: Exam Number: [id number] MAMMOGRAM, BILATERAL DIAGNOSTIC DIGITAL AND CAD [...] mammograms werealso examined with computer-aided detection software (Adku, MYOS.). Reported By: SWATI FLOREZ M.D. SportsBlogs RT DIAG DIGITAL & CAD Ordered By: Repair Electric Motor Assembler on 05-04-2009 hoohbeAT RT DIAG DIGITAL & CAD See Note Normal [facility] Work Phone: Comment on above: Exam Number: [id number] MAMMOGRAM, UNILATERAL RIGHT DIAGNOSTIC DIGITAL AND [...] mammograms werealso examined with computer-aided detection software ([employer], MYOS.). Reported By: SWATI FLOREZ M.D. Hepatic Function Panel (7)Or dered By: Repair Electric Motor Assembler on 02-17-2009 Albumin mass conc 4.2 g/dL Normal 3.6-4.8 Compreh [facility] Internal Medicine Work Phone: ALP enzyme act/vol 95 [iU]/L Normal 25-165 [facility] Work Phone: ALT enzyme act/vol 13 [iU]/L Normal 0-40 [facility] Internal Medicine Work Phone: AST enzyme act/vol 19 [iU]/L Normal 0-40 [facility] Internal Medicine Work Phone: Bilirubin mass conc 0.4 mg/dL Normal 0.1-1.2 [facility] Work Phone: Bilirubin.direct mass conc 0.12 mg/dL Normal 0.00-0.40 [facility] Internal Medicine Work Phone: Protein mass conc 6.8 g/dL Normal 6.0-8.5 Compreh [facility] Internal Medicine Work Phone: Lipid Panel With LDL/HDL Rat ioOrdered By: Repair Electric Motor Assembler on 02-17-2009 Cholesterol in HDL mass conc 58 mg/dL Normal [facility] Internal Medicine Work Phone: [...] RT DIAG DIGITAL & CAD Ordered By: Repair Electric Motor Assembler on 11-06-2008 UNILAT RT DIAG DIGITAL & CAD See Note Normal [facility] Work Phone: Comment on above: Exam Number: [id number] MAMMOGRAM, UNILATERAL RIGHT DIAGNOSTIC DIGITAL AND [...] mammograms werealso examined with computer-aided detection software (Adku, Cmxtwenty, [employer].). Reported By: SWATI FLOREZ M.D. Thin prep Pap ([id number])Ordered By: Shelia Oleary on 11-04-2008 Microscopic observation Other stain Nom (Unsp spec) . Normal Comprehens kit Internal Medicine Work Phone: Comment on above: Source.............C ervical;EndocervicalLMP / Prev Treat...EEL=[id number]. of containers..01 CYTYC Thin Prep VialPATIENT NOT FASTINGClinical Information: ADD [id number] PERFORMED BY: [employer] [address] [id number] Pathology report final diagnosis Narrative SPRCS Normal [facility] Work Phone: Comment on above: NEGATIVE FOR INTRAEP ITHELIAL LESION AND MALIGNANCY.CELLULAR CHANGES ASSOCIATED WITH ATROPHY ARE PRESENT.THIS SPECIMEN WAS RESCREENED PART OF OUR CHIEF BUILDING INSPECTOR PROGRAM.Satisfactory for evaluation. Endocervical and/or squamous metaplasticcells (endocervical component) are present.Aubree Coe, Dye Lab Technician (ASCP)Patricia Maria, Supervisory Dye Lab Technician (ASCP) Source.............C ervical;EndocervicalLMP / Prev Treat...SOS=[id number]. of containers..01 CYTYC Thin Prep VialPATIENT NOT FASTINGClinical Information: ADD [id number] PERFORMED BY: [employer] [address] [id number] Thin prep Pap ([id number]) PAPSMR Normal [facility] prehensive Internal Medicine Work Phone: Comment on [...] was performed. . Source.............C ervical;EndocervicalLMP / Prev Treat...LQC=[id number]. of containers..01 CYTYC Thin Prep VialPATIENT NOT FASTINGClinical Information: ADD [id number] PERFORMED BY: Lab[address] SAMIRA [id number] BILAT SCRN DIGITAL & CADOrde red By: Repair Electric Motor Assembler on 10-29-2008 BILAT SCRN DIGITAL & CAD See Note Normal [facility] Work Phone: Comment on above: Exam Number: [id number] MAMMOGRAM, BILATERAL SCREENING DIGITAL AND CAD [...] mammograms werealso examined with computer-aided detection software (ImageNeoStemcker, Cmxtwenty, Inc.). Reported By: SWATI FLOREZ M.D. CBC WITH MANUAL DIFF ([id number]) Ordered By: Shelia Oleary on 10-24-2008 Basophils (Bld) [#/Vol] 0.0 {x10E3/uL} Normal 0.0-0.2 [facility] Work Phone: Comment on above: PATIENT WAS FASTINGC linical Information: ADD DRAW FEE [id number] ADD J [id number] PERFORMED BY: Adspringr6370 [facility] [id number] Basophils (Bld) [#/Vol] 0.0 10*3/uL Normal 0.0-0.2 [facility]; [facility] Work Phone: Basophils Auto #/vol (Bld) 0.0 {x10E3/uL} Normal 0.0-0.2 [facility] Work Phone: Basophils/100 WBC (Bld) 1 % Normal 0-3 [facility] Work Phone: Comment on above: PATIENT WAS FASTINGC linical Information: ADD DRAW FEE 815096 ADD J [id number] PERFORMED BY: Adspringr6[address] IntelleflexFrye Regional [facility] Center [id number] Basophils/100 WBC Auto (Bld) 1 % Normal 0-3 [facility] Work Phone: Eosinophils (Bld) [#/Vol] 0.1 {x10E3/uL} Normal 0.0-0.4 [facility] Work Phone: Comment on above: PATIENT WAS FASTINGC linical Information: ADD DRAW FEE [id number] ADD J [id number] PERFORMED BY: BringIt70 McguireINCIDEPsychiatric hospital [id number] Eosinophils (Bld) [#/Vol] 0.1 10*3/uL Normal 0.0-0.4 [facility]; [facility] Work Phone: Eosinophils Auto #/vol (Bld) 0.1 {x10E3/uL} Normal 0.0-0.4 [facility] Work Phone: Eosinophils/100 WBC (Bld) 2 % Normal 0-7 [facility] Work Phone: Comment on above: PATIENT WAS FASTINGC linical Information: ADD DRAW FEE 397707 ADD J 33645 PERFORMED BY: Yooli Tpvrxx7543 [facility] [id number] Eosinophils/100 WBC Auto (Bld) 2 % Normal 0-7 [facility] Work Phone: Erythrocyte distribution width (RBC) [Ratio] 14.0 % Normal 11.7-15.0 [facility] Work Phone: Comment on above: PATIENT WAS FASTINGC linical Information: ADD DRAW FEE ADD J [id number] PERFORMED BY: Yooli Bsqiqr2026 [facility] [id number] Erythrocyte distribution width Auto Ratio (RBC) 14.0 % Normal 11.7-15.0 [facility] Work Phone: Hematocrit (Bld) [Volume fraction] 40.4 % Normal 34.0-44.0 [facility] Work Phone: Comment on above: PATIENT WAS FASTINGC linical Information: ADD DRAW FEE 358259 ADD J 25170 PERFORMED BY: Yooli Rudyxt4628 [facility] [id number] Hematocrit Auto Volume Fraction (Bld) 40.4 % Normal 34.0-44.0 [facility] Internal Medicine Work Phone: Hemoglobin mass conc (Bld) 13.9 g/dL Normal 11.5-15.0 [facility] Work Phone: Comment on above: PATIENT WAS FASTINGC linical Information: ADD DRAW FEE [id number] ADD J [id number] PERFORMED BY: Yooli Bwgnct4606 [facility] [id number] Lymphocytes (Bld) [#/Vol] 1.1 {x10E3/uL} Normal 0.7-4.5 [facility] Work Phone: Comment on above: PATIENT WAS FASTINGC linical Information: ADD DRAW FEE 014514 ADD J 79737 PERFORMED BY: [facility]6370 [facility] [id number] Lymphocytes (Bld) [#/Vol] 1.1 10*3/uL Normal 0.7-4.5 [facility]; [facility] Work Phone: Lymphocytes Auto #/vol (Bld) 1.1 {x10E3/uL} Normal 0.7-4.5 [facility] Work Phone: Lymphocytes/100 WBC (Bld) 24 % Normal 14-46 [facility] Work Phone: Comment on above: PATIENT WAS FASTINGC linical Information: ADD DRAW FEE 900642 ADD J 17464 PERFORMED BY: PATRIA [employer] [place] ReqlutPsychiatric hospital [id number] Lymphocytes/100 WBC Auto (Bld) 24 % Normal 14-46 [facility] Work Phone: MCH (RBC) [Entitic mass] 31.3 pg Normal 27.0-34.0 [facility] Work Phone: Comment on above: PATIENT WAS FASTINGC linical Information: ADD DRAW FEE [id number] ADD J [id number] PERFORMED BY: PATRIA Yooli [employer] [place] ReqlutPsychiatric hospital [id number] MCH Auto Entitic mass (RBC) 31.3 pg Normal 27.0-34.0 [facility] Internal Medicine Work Phone: MCHC (RBC) [Mass/Vol] 34.5 g/dL Normal 32.0-36.0 [facility] Internal Medicine Work Phone: Comment on above: PATIENT WAS FASTINGC linical Information: ADD DRAW FEE 604337 ADD J 97429 PERFORMED BY: Yooli [employer] [facility] [id number] MCHC Auto mass conc (RBC) 34.5 g/dL Normal 32.0-36.0 [facility] Internal Medicine Work Phone: MCV (RBC) [Entitic vol] 91 fL Normal 80-98 [facility] Internal Medicine Work Phone: Comment on above: PATIENT WAS FASTINGC linical Information: ADD DRAW FEE 429917 ADD J 21821 PERFORMED BY: Yooli [employer] [place] ReqlutPsychiatric hospital [id number] MCV Auto Entitic volume (RBC) 91 fL Normal 80-98 [facility] Work Phone: Monocytes (Bld) [#/Vol] 0.5 {x10E3/uL} Normal 0.1-1.0 [facility] Work Phone: Comment on above: PATIENT WAS FASTINGC linical Information: ADD DRAW FEE 994532 ADD J [id number] PERFORMED BY: [employer]70 [place] ReqlutPsychiatric hospital [id number] Monocytes (Bld) [#/Vol] 0.5 10*3/uL Normal 0.1-1.0 [facility]; [facility] Work Phone: Monocytes Auto #/vol (Bld) 0.5 {x10E3/uL} Normal 0.1-1.0 [facility] Work Phone: Monocytes/100 WBC (Bld) 10 % Normal 4- [facility] Work Phone: Comment on above: PATIENT WAS FASTINGC linical Information: ADD DRAW FEE 013369 ADD J 36079 PERFORMED BY: Yooli Gsjfps1856 [facility] [id number] Monocytes/100 WBC Auto (Bld) 10 % Normal 4-13 [facility] Work Phone: Neutrophils (Bld) [#/Vol] 2.8 {x10E3/uL} Normal 1.8-7.8 [facility] Work Phone: Comment on above: PATIENT WAS FASTINGC linical Information: ADD DRAW FEE 006107 ADD J 33396 PERFORMED BY: Yooli Hhrzhn3318 [facility] [id number] Neutrophils (Bld) [#/Vol] 2.8 10*3/uL Normal 1.8-7.8 [facility]; [facility] Work Phone: Neutrophils Auto #/vol (Bld) 2.8 {x10E3/uL} Normal 1.8-7.8 [facility] Work Phone: Neutrophils/100 WBC (Bld) 63 % Normal 40-74 [facility] Work Phone: Comment on above: PATIENT WAS FASTINGC linical Information: ADD DRAW FEE 198140 ADD J 07408 PERFORMED BY: PATRIA Yooli Jjtmmz6775 [facility] [id number] Neutrophils/100 WBC Auto (Bld) 63 % Normal 40-74 [facility] Work Phone: Platelets (Bld) [#/Vol] 228 {x10E3/uL} Normal 140-415 [facility] Work Phone: Comment on above: PATIENT WAS FASTINGC linical Information: ADD DRAW FEE 912141 ADD J 35048 PERFORMED BY: PATRIA Yooli Zbatto4216 [facility] [id number] Platelets (Bld) [#/Vol] 228 10*3/uL Normal 140-415 [facility] Internal Medicine; [facility] Internal Medicine Work Phone: Platelets Auto #/vol (Bld) 228 {x10E3/uL} Normal 140-415 [facility] Work Phone: RBC (Bld) [#/Vol] 4.45 {x10E6/uL} Normal 3.80-5.10 [facility] Internal Medicine Work Phone: Comment on above: PATIENT WAS FASTINGC linical Information: ADD DRAW FEE 799002 ADD J 12481 PERFORMED BY: PATRIA YooliChilton Memorial HospitalDmauzf3746 [facility] [id number] RBC (Bld) [#/Vol] 4.45 10*6/uL Normal 3.80-5.10 [facility]; [facility] Internal Medicine Work Phone: RBC Auto #/vol (Bld) 4.45 {x10E6/uL} Normal 3.80-5.10 [facility] Internal Medicine Work Phone: WBC (Bld) [#/Vol] 4.5 {x10E3/uL} Normal 4.0-10.5 [facility] Internal Medicine Work Phone: Comment on above: PATIENT WAS FASTINGC linical Information: ADD DRAW FEE 466254 ADD J 03528 PERFORMED BY: PATRIA Yooli Sczoif0732 [facility] [id number] WBC (Bld) [#/Vol] 4.5 10*3/uL Normal 4.0-10.5 [facility]pre [facility] Internal [facility]; [facility] Work Phone: WBC Auto #/vol (Bld) 4.5 {x10E3/uL} Normal 4.0-10.5 [facility] Work Phone: LIPID PANEL ([id number])Ordered B y: Shelia Oleary on 10-24-2008 Cholesterol in HDL mass conc 62 mg/dL Normal [facility] Work Phone: Comment on above: According to ATP-III Guidelines, HDL-C >59 mg/dL is considered anegative risk factor for CHD. PATIENT WAS FASTINGP ERFORMED BY: CB [facility] Fyyatt2280 [address] Int[place]flex[place] [id number] Cholesterol in LDL mass conc 157 mg/dL Abnormal 0-99 [facility] Work Phone: Comment on above: PATIENT WAS FASTINGP ERFORMED BY: CB [facility] Rwwbvc0269 [place] [place] [id number] Cholesterol in LDL/Cholesterol in HDL mass ratio 2.5 {ratio_units} Normal 0.0-3.2 [facility] Work Phone: Comment on above: PATIENT WAS FASTINGP ERFORMED BY: [employer] LabImpactGamesrp Bmjweq8275 [address] Intelleflexbl[place] [id number] Cholesterol in LDL/Cholesterol in HDL mass ratio SPRCS Normal [facility] Work Phone: Comment on above: If initial LDL-joseph sterol result is >100 mg/dL, assess forrisk factors. PATIENT WAS FASTINGP ERFORMED BY: CB [facility] Ucyphz3242 [address] Intelleflexbl[place] [id number] Cholesterol in VLDL mass conc 40 mg/dL Normal 5-40 [facility] Work Phone: Comment on above: PATIENT WAS FASTINGP ERFORMED BY: CB [facility] Eahymn0509 [address] Intelleflexbl[place] [id number] Cholesterol mass conc 259 mg/dL Abnormal 100-199 Com prehensive Internal Medicine Work Phone: Comment on above: PATIENT WAS FASTINGP ERFORMED BY: CB [facility] Cgntzl6869 [address] [facility] [place] [id number] Triglyceride mass conc 202 mg/dL Abnormal 0-149 [facility] Work Phone: Comment on above: PATIENT WAS FASTINGP ERFORMED BY: CB [facility] Gbmslu5777 [address] [facility] [id number] METABOLIC PANEL, COMPREHENSI VE (82734)Ordered By: Shelia Oleary on 10-24-2008 Albumin mass conc 4.3 g/dL Normal 3.6-4.8 Compreh [facility] Internal Medicine Work Phone: Comment on above: PATIENT WAS FASTINGP ERFORMED BY: CB [facility] Juqkiz5938 [address] [facility] [id number] Albumin/Globulin mass ratio 1.4 {ratio} Normal 1.1-2.5 [facility] Work Phone: Comment on above: PATIENT WAS FASTINGP ERFORMED BY: CB [facility] Bhlpaq8287 [facility] [id number] ALP [Catalytic activity/Vol] 96 U/L Normal 25-165 [facility]; [facility] Internal Medicine Work Phone: ALP enzyme act/vol 96 [iU]/L Normal 25-165 [facility] Internal Medicine Work Phone: Comment on above: PATIENT WAS FASTINGP ERFORMED BY: [facility] Yrupph6979 [facility] [id number] ALT [Catalytic activity/Vol] 11 U/L Normal 0-40 [facility]; [facility] Work Phone: ALT enzyme act/vol 11 [iU]/L Normal 0-40 [facility] Internal Medicine Work Phone: Comment on above: PATIENT WAS FASTINGP ERFORMED BY: CB [facility] Xrckkv0357 [address] [facility] [id number] AST [Catalytic activity/Vol] 19 U/L Normal 0-40 [facility]; [facility] Work Phone: AST enzyme act/vol 19 [iU]/L Normal 0-40 Compre [facility] Internal Medicine Work Phone: Comment on above: PATIENT WAS FASTINGP ERFORMED BY: PTARIA Silverio6370 [facility] [id number] Bilirubin mass conc 0.5 mg/dL Normal 0.1-1.2 [facility] Internal [facility] Work Phone: Comment on above: PATIENT WAS FASTINGP ERFORMED BY: PATRIA Silverio6370 [facility] [id number] Calcium mass conc 10.2 mg/dL Normal 8.5-10.6 [facility]preh [facility] Work Phone: Comment on above: PATIENT WAS FASTINGP ERFORMED BY: PATRIA Alvarezlin6370 [facility] [id number] Chloride molar conc 102 mmol/L Normal 97-108 [facility] Work Phone: Comment on above: PATIENT WAS FASTINGP ERFORMED BY: PATRIA Silverio6370 [facility] [id number] CO2 molar conc 26 mmol/L Normal 20-32 [facility] Internal Medicine Work Phone: Comment on above: PATIENT WAS FASTINGP ERFORMED BY: PATRIA Silverio6370 [facility] [id number] Creatinine mass conc 0.90 mg/dL Normal 0.57-1.00 [facility] Internal Medicine Work Phone: Comment on above: PATIENT WAS FASTINGP ERFORMED BY: PATRIA LabCodesiree AlvarezHvjlay9449 [facility] [id number] GFR/1.73 sq M predicted among blacks MDRD [...] [email or web address]. PATIENT WAS FASTINGP ERFORMED BY: LabCo Rwtozb3726 [facility] [id number] GFR/1.73 sq M.predicted MDRD (S/P/Bld) [Vol rate/Area] mL/min/{1.73_m2} Normal [facility] Work Phone: Comment on above: PATIENT WAS FASTINGP ERFORMED BY: LabCo Kiivch6261 [facility] [id number] GFR/1.73 sq M.predicted MDRD vol rate/area mL/min/{1.73_m2} Normal [facility] Work Phone: Comment on above: PATIENT WAS FASTINGP ERFORMED BY: [facility]Saint [facility] Ohaysg0098 [facility] [id number] Globulin (S) [Mass/Vol] 3.1 g/dL Normal 1.5-4.5 [facility] Work Phone: Comment on above: PATIENT WAS FASTINGP ERFORMED BY: [facility] [id number] [facility] [id number] Globulin Calculated mass conc (S) 3.1 g/dL Normal 1.5-4.5 [facility] Work Phone: Glucose mass conc 90 mg/dL Normal 65-99 Compre[facility] Work Phone: Comment on above: PATIENT WAS FASTINGP ERFORMED BY: [facility] [id number] [facility] [id number] Potassium molar conc 4.0 mmol/L Normal 3.5-5.2 Comp rehensive Internal Medicine Work Phone: Comment on above: PATIENT WAS FASTINGP ERFORMED BY: LabCo [id number] [facility] [id number] Protein mass conc 7.4 g/dL Normal 6.0-8.5 Com[facility] Work Phone: Comment on above: PATIENT WAS FASTINGP ERFORMED BY: [facility]CoCh[facility] HospitalPujkqe1213 [facility] [id number] Sodium molar conc 141 mmol/L Normal 135-145 Com[facility] Work Phone: Comment on above: PATIENT WAS FASTINGP ERFORMED BY: PATRIA Dagoberto [id number] [facility] [id number] Urea nitrogen mass conc 21 mg/dL Normal 5-26 [facility] Work Phone: Comment on above: PATIENT WAS FASTINGP ERFORMED BY: PATRIA [facility]6370 [facility] [id number] Urea nitrogen/Creatinine mass ratio 23 mg/mg Normal 8-27 [facility] Work Phone: Comment on above: PATIENT WAS FASTINGP ERFORMED BY: PATRIA [facility]Be[facility] Hospital6370 [facility] [id number] MICROALBUMINOrdered By: Shelia Oleary on 10-24-2008 Albumin DL <= 20 mg/L (U) [Mass/Vol] mg/dL Normal 0.0-17.0 [facility]; [facility] Work Phone: Albumin DL <= 20 mg/L mass conc (U) mg/dL Normal 0.0-17.0 [facility] Work Phone: Comment on above: PATIENT WAS FASTINGP ERFORMED BY: PATRIA [facility]6370 [facility] [id number] Albumin/Creatinine DL <= 20 mg/L (U) [Mass ratio] mg/g Normal 0.0-30.0 [facility]; [facility] Work Phone: Albumin/Creatinine DL <= 20 mg/L mass ratio (U) mg/g Normal 0.0-30.0 [facility] Work Phone: Comment on above: PATIENT WAS FASTINGP ERFORMED BY: PATRIA DagobertoChilton Memorial HospitalOfxrml9915 [facility] [id number] Creatinine mass conc (U) 151.7 mg/dL Normal 15.0-278.0 [facility] Work Phone: Comment on above: PATIENT WAS FASTINGP ERFORMED BY: PATRIA [employer] [id number] [facility] [id number] TSH ([id number])Ordered By: Shelia Oleary on 10-24-2008 Thyrotropin Qn 1.126 {uIU/mL} Normal 0.450-4.50 0 [facility] Internal Medicine Work Phone: Comment on above: PATIENT WAS FASTINGP ERFORMED BY: LabCo [id number] [facility] [id number] COMP METABOLICOrdered By: Denis stem Billing Machine Operator on 07-24-2007 Albumin mass conc 3.8 g/dL Normal 3.4-5.0 [facility] Work Phone: Albumin/Globulin mass ratio 1.1 {RATIO} Normal 0.9-2.4 [facility] Internal Medicine Work Phone: ALP enzyme act/vol 82 U/L Normal 50-136 [facility] Internal Medicine Work Phone: ALT enzyme act/vol 30 [iU]/L Normal 30-65 [facility] Work Phone: Anion gap 3 molar conc 8 mmol/L Normal 5-15 [facility] Internal Medicine Work Phone: AST enzyme act/vol 16 U/L Normal 15-37 [facility] Internal Medicine Work Phone: Bilirubin mass conc 0.44 mg/dL Normal 0.00-1.00 Compr [facility] Internal Medicine Work Phone: Calcium mass conc 9.5 mg/dL Normal 8.5-10.1 Compreh [facility] Internal Medicine Work Phone: Chloride molar conc 102 mmol/L Normal 98-107 [facility] Work Phone: CO2 molar conc 28.8 mmol/L Normal 21.0-32.0 [facility] Work Phone: Comment on above: Please Note Refer ence Interval Change Creatinine mass conc 0.9 mg/dL Normal 0.6-1.0 Comp [facility] Internal Medicine Work Phone: Globulin Calculated mass [...] DEXA BONE DENSITY STUDY (HP) Ordered By: Repair Electric Motor Assembler on 07-24-2007 DEXA BONE DENSITY STUDY (HP) See Note Normal [facility] Work Phone: Comment on above: Exam Number: [id number] BONE DENSITOMETRY HISTORYScreening for osteoporosis. TECHNIQUE [...] HIP, MIN 2 VIEWS ([place])O rdered By: Repair Electric Motor Assembler on 05-31-2007 HIP, MIN 2 VIEWS ([place]) See Note Normal [facility] Work Phone: Comment on above: Exam Number: [id number] AP AND LATERAL RIGHT HIP Being [...] Reported By: GERALD MANDEL M.D. Exam Number: [id number] AP AND LATERAL RIGHT HIP Being [...] [facility] Work Phone: CBCOrdered By: My Pick Box r on 11-17-2006 Erythrocyte distribution width Auto [...] > or = 500 mg/dL MGOrdered By: Repair Electric Motor Assembler on 11-17-2006 Magnesium mass conc 2.0 mg/dL [...] time (Bld) 33.8 s Normal 24.6-36.6 [facility] Work Phone: AMYOrdered By: System [...] Entitic volume (Bld) 8.2 fL Normal 6.5-12.0 [facility] Internal Medicine Work Phone: Platelets Auto #/vol (Bld) 280 10*3/uL Normal 150-450 [facility] Internal Medicine Work Phone: RBC Auto #/vol (Bld) 4.24 {M/mm3} Normal 4.2-5.4 Co mprehensive [facility] Work Phone: WBC Auto #/vol (Bld) 6.7 10*3/uL Normal 4.4-11.0 [facility] Work Phone: CPK TOTALOrdered By: Repair Electric Motor Assembler on 11-16-2006 CPK TOTAL 58 U/L Normal 21-215 [facility] Internal Medicine Work Phone: CPK TOTAL 66 U/L Normal 21-215 [facility] Internal Medicine Work Phone: CPKMBOrdered By: System Cecelia SwiftKey on 11-16-2006 CK.MB mass conc ng/mL Normal 0.0-5.0 [facility] Internal Medicine Work Phone: Comment on above: CK-MB and RI Interpr etation MB Relative Index Non-AMI 5 5 > 4 CK.MB mass conc 0.6 ng/mL Normal 0.0-5.0 [facility] Work Phone: Comment on above: CK-MB and RI Interpr etation MB Relative Index Non-AMI 5 5 > 4 LIPASEOrdered By: System Man shirin on 11-16-2006 LIPASE 277 U/L Normal 114-286 [facility] Internal Medicine Work Phone: LIVEROrdered By: System [employer] on 11-16-2006 Albumin mass conc 3.7 g/dL Normal 3.4-5.0 Compreh [facility] Internal Medicine Work Phone: ALP enzyme act/vol 86 U/L Normal 50-136 [facility] Internal Medicine Work Phone: ALT enzyme act/vol 31 [iU]/L Normal 30-65 [facility] Internal Medicine Work Phone: AST enzyme act/vol 14 U/L Abnormal 15-37 [facility] Internal Medicine Work Phone: Bilirubin mass conc 0.39 mg/dL Normal 0.00-1.00 Compr [facility] Internal Medicine Work Phone: Bilirubin.direct mass conc 0.09 mg/dL Normal 0.00-0.30 [facility] Internal Medicine Work Phone: Protein mass conc 7.5 g/dL Normal 6.4-8.2 Compreh [facility] Internal Medicine Work Phone: ,SERUMOrdered By: Christopher ystem Billing Machine Operator on 11-16-2006 ,SERUM SeeNote Normal [facility] Work Phone: Comment on above: Result: NEGATIVE TROPONIN-IOrdered By: Repair Electric Motor Assembler on 11-16-2006 Troponin I.cardiac mass conc 0.06 ng/mL Normal [facility] Internal Medicine Work Phone: Comment on above: TROPONIN-I EXPECTED VALUES < 0.50 NEGATIVE 0.50 - 1.49 INDETERMINANT > OR = 1.50 SUGGEST DC Troponin I.cardiac mass conc ng/mL Normal [facility] Internal Medicine Work Phone: Comment on above: TROPONIN-I EXPECTED VALUES < 0.50 NEGATIVE 0.50 - 1.49 INDETERMINANT > OR = 1.50 SUGGEST DC COMP METABOLICOrdered By: Denis stem Billing Machine Operator on 09-21-2006 Albumin mass conc 3.9 g/dL Normal 3.4-5.0 Compreh [facility] Internal Medicine Work Phone: Albumin/Globulin mass ratio 1.1 {RATIO} Normal 0.9-2.4 [facility] Internal Medicine Work Phone: ALP enzyme act/vol 82 U/L Normal 50-136 [facility] Internal Medicine Work Phone: ALT enzyme act/vol 34 [iU]/L Normal 30-65 [facility] Internal Medicine Work Phone: Anion gap 3 molar conc 9 mmol/L Normal 5-15 [facility] Internal Medicine Work Phone: AST enzyme act/vol 18 U/L Normal 15-[address] [facility] Internal Medicine Work Phone: Bilirubin mass conc 0.51 mg/dL Normal 0.00-1.00 Compr [facility]ive [facility] Work Phone: Calcium mass conc 9.2 mg/dL Normal 8.5-10.1 Com[facility] Work Phone: Chloride molar conc 103 mmol/L Normal 98-107 Compr [facility] Internal Medicine Work Phone: CO2 molar conc 29.1 mmol/L Abnormal 22.0-29.0 [facility] Work Phone: Creatinine mass conc 1.1 mg/dL Abnormal 0.6-1.0 Comp [facility] Work Phone: Globulin Calculated mass conc (S) 3.4 g/dL Normal 2.3-3.5 [facility] Internal Medicine Work Phone: Glucose mass conc 88 mg/dL Normal 70-110 [facility] Work Phone: Potassium molar conc 3.5 mmol/L Normal 3.5-5.1 Comp [facility] Work Phone: Protein mass conc 7.3 g/dL Normal 6.4-8.2 [facility] Work Phone: Sodium molar conc 141 mmol/L Normal 136-145 [facility] Work Phone: Urea nitrogen mass conc 16 mg/dL Normal 7-18 [facility] Internal Medicine Work Phone: Urea nitrogen/Creatinine mass ratio 14.5 {RATIO} Normal 10-20 [facility] Internal Medicine Work Phone: PFLIPOrdered By: System Cecelia dominguez on 09-21-2006 Cholesterol in HDL mass conc 57 mg/dL Normal [facility] Internal Medicine Work Phone: [...] ensive Internal Medicine Work Phone: KOrdered By: Repair Electric Motor Assembler on 07-25-2006 Potassium molar conc 3.8 mmol/L Normal 3.5-5.1 Comp rehensive Internal Medicine Work Phone: TISS/FLUIDOrdered By: Repair Electric Motor Assembler on 07-19-2006 TISS/FLUID Normal [facility] [...] lobectomy and isthumsectomy from 11/06/02 performed at [place], [place],([id number]) with a diagnosis of thyroid lobectomy with [...] REPORT SIGNED: JACQUELINE YOO 07/20/06 CBCOrdered By: My Pick Box r on 07-15-2006 Erythrocyte distribution width Auto Ratio (RBC) 13.6 % Normal 11.6-14.6 [facility] Internal Medicine Work Phone: Hematocrit Auto Volume Fraction (Bld) 41.0 % Normal 37-47 Comprehens [facility] Internal Medicine Work Phone: Hemoglobin mass conc (Bld) 13.9 g/dL Normal 12.0-16.0 [facility] Internal Medicine Work Phone: MCH Auto Entitic mass (RBC) 30.8 pg Normal 27.0-32.0 [facility] Internal Medicine Work Phone: MCHC Auto mass conc (RBC) 34.0 g/dL Normal 32-36 [facility] Internal Medicine Work Phone: MCV Auto Entitic volume (RBC) 90.5 fL Normal 81-99 [facility] Work Phone: Platelets Auto #/vol (Bld) 300 10*3/uL Normal 150-450 [facility] Work Phone: RBC Auto #/vol (Bld) 4.53 {M/mm3} Normal 4.2-5.4 Co m[facility] Work Phone: WBC Auto #/vol (Bld) 6.4 10*3/uL Normal 4.4-11.0 [facility] prehensive Internal Medicine Work Phone: PRO TIMEOrdered By: Debora [employer] rebekah on 07-15-2006 INR Coag RelTime (PPP) 1.0 {INR} Normal [facility] Work Phone: Prothrombin time (PT) Coag time (PPP) 12.0 s Normal 11.7-13.3 [facility] Work Phone: PTTOrdered By: System Manage r on 07-15-2006 aPTT Coag time (Bld) 33.8 s Normal 24.6-36.6 Comp rehensive Internal Medicine Work Phone: KOrdered By: Repair Electric Motor Assembler on 07-11-2006 Potassium molar conc 3.4 mmol/L Abnormal 3.5-5.1 Comp rehensive [facility] Medicine Work Phone: MGOrdered By: Repair Electric Motor Assembler on 07-11-2006 Magnesium mass conc 2.1 mg/dL Normal 1.5-2.2 Compr ehensive Internal Medicine Work Phone: TSHOrdered By: System Manage r on 07-11-2006 Thyrotropin Qn 0.62 {uIU/mL} Normal 0.34-4.82 Compreh ens[facility] Work Phone: Vital Signs Date Time Vital Sign Value Performing Clinician Facility 06-27-2025 09:56-0400 Diastolic blood pressure 81 mm[Hg] Dian Duron SCREW DOWN-C Work Phone: [facility] 06-27-2025 09:56-0400 Systolic blood pressure 149 mm[Hg] Dian Duron SCREW DOWN-C Work Phone: [facility] 06-27-2025 08:14-0400 Body mass index (BMI) [Ratio] 37.9 kg/m2 Dian Duron SCREW DOWN-C Work Phone: [facility] 06-27-2025 08:14-0400 Body weight 103.41 kg Dian Duron SCREW DOWN-C Work Phone: [facility] 06-27-2025 08:14-0400 Heart rate 87 /min Dian Duron SCREW DOWN-C Work Phone: [facility] 06-27-2025 08:14-0400 Respiratory rate 20 /min Dian Duron SCREW DOWN-C Work Phone: [facility] 06-27-2025 08:14-0400 SaO2% (BldA) [Mass fraction] 97 % Dian Oliverio SCREW DOWN-C Work Phone: [facility] 02-14-2025 13:27-0400 Body height 165.1 cm Dian Oliverio SCREW DOWN-C Work Phone: [facility] 02-14-2025 13:27-0400 Respiratory rate 16 /min Dian Oliverio SCREW DOWN-C Work Phone: [facility] 01-13-2025 07:30-0400 Body height 165.1 cm Dian Oliverio SCREW DOWN-C Work Phone: [facility] 01-13-2025 07:30-0400 Body mass index (BMI) [Ratio] 38.4 kg/m2 Dian Oliverio SCREW DOWN-C Work Phone: [facility] 01-13-2025 07:30-0400 Body weight 104.77 kg Dian Oliverio SCREW DOWN-C Work Phone: [facility] 01-13-2025 07:30-0400 Diastolic blood pressure 80 mm[Hg] Dian Oliverio SCREW DOWN-C Work Phone: [facility] 01-13-2025 07:30-0400 Heart rate 93 /min Dian Oliverio SCREW DOWN-C Work Phone: [facility] 01-13-2025 07:30-0400 Respiratory rate 18 /min Dian Oliverio SCREW DOWN-C Work Phone: [facility] 01-13-2025 07:30-0400 SaO2% (BldA) [Mass fraction] 97 % Dian Oliverio SCREW DOWN-C Work Phone: [facility] 01-13-2025 07:30-0400 Systolic blood pressure 123 mm[Hg] Dian Oliverio SCREW DOWN-C Work Phone: [facility] 08-06-2024 12:54-0500 Body height 165.1 cm Dian Oliverio SCREW DOWN-C Work Phone: [facility] 08-06-2024 12:54-0500 Body mass index (BMI) [Ratio] 38.4 kg/m2 Dian Oliverio SCREW DOWN-C Work Phone: [facility] 08-06-2024 12:54-0500 Body temperature 97.6 [degF] Dian Ramosam SCREW DOWN-C Work Phone: [facility] 08-06-2024 12:54-0500 Body weight 104.77 kg Dian Ramosam SCREW DOWN-C Work Phone: [facility] 08-06-2024 12:54-0500 Diastolic blood pressure 84 mm[Hg] Dian Ramosam SCREW DOWN-C Work Phone: [facility] 08-06-2024 12:54-0500 Heart rate 88 /min Dian Ramosam SCREW DOWN-C Work Phone: [facility] 08-06-2024 12:54-0500 Respiratory rate 18 /min Dian Ramosam SCREW DOWN-C Work Phone: [facility] 08-06-2024 12:54-0500 SaO2% (BldA) [Mass fraction] 95 % Dian Ramosam SCREW DOWN-C Work Phone: [facility] 08-06-2024 12:54-0500 Systolic blood pressure 130 mm[Hg] Dian Ramosam SCREW DOWN-C Work Phone: [facility] 11-02-2023 09:57-0500 Body height 162.56 cm SCREW DOWN-C Dian Oliverio Work Phone: [facility] 11-02-2023 09:57-0500 Body mass index (BMI) [Ratio] 39.4 kg/m2 SCREW DOWN-C Dian Oliverio Work Phone: [facility] 11-02-2023 09:57-0500 Body weight 104.09 kg SCREW DOWN-C Dian Oliverio Work Phone: [facility] 11-02-2023 09:57-0500 Diastolic blood pressure 73 mm[Hg] SCREW DOWN-C Dian Oliverio Work Phone: [facility] 11-02-2023 09:57-0500 Heart rate 88 /min SCREW DOWN-Aquilino Duron Work Phone: [facility] 11-02-2023 09:57-0500 Respiratory rate 16 /min SCREW DOWN-Aquilino Duron Work Phone: [facility] 11-02-2023 09:57-0500 Systolic blood pressure 127 mm[Hg] SCREW DOWN-Aquilino Duron Work Phone: [facility] 10-03-2023 10:53-0500 Body height 162.56 cm No Primary Care Physician [facility] 10-03-2023 10:53-0500 Body weight 105.23 kg No Primary Care Physician [facility] 10-02-2023 08:04-0500 Body mass index (BMI) [Ratio] 39.8 kg/m2 No Primary Care Physician [facility] 08-30-2023 11:25-0500 Body height 165 cm No Primary Care Physician [facility] 08-30-2023 11:25-0500 Body mass index (BMI) [Ratio] 38.6 kg/m2 No Primary Care Physician [facility] 08-30-2023 11:25-0500 Body weight 105.23 kg No Primary Care Physician [facility] 08-30-2023 11:25-0500 Diastolic blood pressure 76 mm[Hg] No Primary Care Physician [facility] 08-30-2023 11:25-0500 Heart rate 97 /min No Primary Care Physician [facility] 08-30-2023 11:25-0500 Respiratory rate 18 /min No Primary Care Physician [facility] 08-30-2023 11:25-0500 SaO2% (BldA) [Mass fraction] 98 % No Primary Care Physician [facility] 08-30-2023 11:25-0500 Systolic blood pressure 111 mm[Hg] No Primary Care Physician [facility] 06-24-2023 06:41-0400 Body height 165 cm No Primary Care Physician [facility] 06-24-2023 06:41-0400 Body mass index (BMI) [Ratio] 38.5 kg/m2 No Primary Care Physician [facility] 06-24-2023 06:41-0400 Body temperature 98.4 [degF] No Primary Care Physician [facility] 06-24-2023 06:41-0400 Body weight 104.7 kg No Primary Care Physician [facility] 06-24-2023 06:41-0400 Diastolic blood pressure 73 mm[Hg] No Primary Care Physician [facility] 06-24-2023 06:41-0400 Heart rate 95 /min No Primary Care Physician [facility] 06-24-2023 06:41-0400 Respiratory rate 22 /min No Primary Care Physician [facility] 06-24-2023 06:41-0400 SaO2% (BldA) [Mass fraction] 93 % No Primary Care Physician [facility] 06-24-2023 06:41-0400 Systolic blood pressure 172 mm[Hg] No Primary Care Physician [facility] 06-23-2023 08:47-0400 Body height 165.74 cm Krista Castillo LPN [facility]; [facility] Work Phone: 06-23-2023 08:47-0400 Body mass index (BMI) [Ratio] 38.48 kg/m2 Krista Blackrb PERSONAL COMPUTER NETWORK ENGINEER [facility]; [facility] Work Phone: 06-23-2023 08:47-0400 Body surface area Derived from formula 2.12 m2 Krista Slarb PERSONAL COMPUTER NETWORK ENGINEER [facility]; [facility] Work Phone: 06-23-2023 08:47-0400 Body temperature 96.9 [degF] Krista Slarb PERSONAL COMPUTER NETWORK ENGINEER [facility]; [facility] Work Phone: 06-23-2023 08:47-0400 Body weight 105.69 kg Krista Blackrb PERSONAL COMPUTER NETWORK ENGINEER [facility]; [facility] Work Phone: 06-23-2023 08:47-0400 Diastolic blood pressure 78 mm[Hg] Krista Slarb PERSONAL COMPUTER NETWORK ENGINEER [facility]; [facility] Work Phone: 06-23-2023 08:47-0400 Heart rate 66 /min Krista Slarb PERSONAL COMPUTER NETWORK ENGINEER [facility]; [facility] Work Phone: 06-23-2023 08:47-0400 Respiratory rate 17 /min Krista Slarb PERSONAL COMPUTER NETWORK ENGINEER [facility]; [facility] Work Phone: 06-23-2023 08:47-0400 SaO2% (BldA) [Mass fraction] 97 % Krista Slarb PERSONAL COMPUTER NETWORK ENGINEER [facility]; [facility] Work Phone: 06-23-2023 08:47-0400 Systolic blood pressure 122 mm[Hg] Krista Slarb PERSONAL COMPUTER NETWORK ENGINEER [facility]; [facility] Work Phone: 02-20-2023 09:33-0400 Body height 165.74 cm Krista Slarb PERSONAL COMPUTER NETWORK ENGINEER [facility]; [facility] Work Phone: 02-20-2023 09:33-0400 Body mass index (BMI) [Ratio] 38.48 kg/m2 Krista Slarb PERSONAL COMPUTER NETWORK ENGINEER [facility]; [facility] Work Phone: 02-20-2023 09:33-0400 Body surface area Derived from formula 2.12 m2 Krista Slarb PERSONAL COMPUTER NETWORK ENGINEER [facility]; [facility] Work Phone: 02-20-2023 09:33-0400 Body temperature 97.9 [degF] Krista Slarb PERSONAL COMPUTER NETWORK ENGINEER [facility]; [facility] Work Phone: 02-20-2023 09:33-0400 Body weight 105.69 kg Krista Slarb PERSONAL COMPUTER NETWORK ENGINEER [facility]; [facility] Work Phone: 02-20-2023 09:33-0400 Diastolic blood pressure 76 mm[Hg] Krista Slarb PERSONAL COMPUTER NETWORK ENGINEER [facility]; [facility] Work Phone: 02-20-2023 09:33-0400 Heart rate 85 /min Krista Slarb PERSONAL COMPUTER NETWORK ENGINEER [facility]; [facility] Work Phone: 02-20-2023 09:33-0400 Respiratory rate 16 /min Krista Slarb PERSONAL COMPUTER NETWORK ENGINEER [facility]; [facility] Work Phone: 02-20-2023 09:33-0400 SaO2% (BldA) [Mass fraction] 97 % Krista Slarb PERSONAL COMPUTER NETWORK ENGINEER [facility]; [facility] Work Phone: 02-20-2023 09:33-0400 Systolic blood pressure 122 mm[Hg] Krista Castillo LPN [facility]; [facility] Work Phone: 10-19-2022 09:45-0500 Body height 165.1 cm No Primary Care Physician [facility] 09-19-2022 11:31-0500 Body mass index (BMI) [Ratio] 37.9 kg/m2 No Primary Care Physician [facility] 09-19-2022 11:31-0500 Body weight 103.41 kg No Primary Care Physician [facility] 09-19-2022 11:31-0500 Diastolic blood pressure 84 mm[Hg] No Primary Care Physician [facility] 09-19-2022 11:31-0500 Heart rate 91 /min No Primary Care Physician [facility] 09-19-2022 11:31-0500 Respiratory rate 18 /min No Primary Care Physician [facility] 09-19-2022 11:31-0500 SaO2% (BldA) [Mass fraction] 94 % No Primary Care Physician [facility] 09-19-2022 11:31-0500 Systolic blood pressure 132 mm[Hg] No Primary Care Physician [facility] 08-22-2022 10:03-0500 Body height 165.74 cm [...] Diastolic blood pressure 80 mm[Hg] Krista Slarb PERSONAL COMPUTER NETWORK ENGINEER [facility]; [facility] Work Phone: 08-22-2022 10:03-0500 Heart rate 89 /min Krista Slarb PERSONAL COMPUTER NETWORK ENGINEER [facility]; [facility] Work Phone: 08-22-2022 10:03-0500 Respiratory rate 16 /min Krista Slarb PERSONAL COMPUTER NETWORK ENGINEER [facility]; [facility] Work Phone: 08-22-2022 10:03-0500 SaO2% (BldA) [Mass fraction] 96 % Krista Slarb PERSONAL COMPUTER NETWORK ENGINEER [facility]; [facility] Work Phone: 08-22-2022 10:03-0500 Systolic blood pressure 122 mm[Hg] Krista Slarb PERSONAL COMPUTER NETWORK ENGINEER [facility]; [facility] Work Phone: 03-21-2022 09:08-0400 Diastolic blood pressure 80 mm[Hg] SCREW DOWN-C Lakisah Changa SCREW DOWN Work Phone: [facility] Work Phone: 03-21-2022 09:08-0400 Heart rate 80 /min SCREW DOWN-C Lakisha Changa SCREW DOWN Work Phone: [facility] Work Phone: 03-21-2022 09:08-0400 Respiratory rate 16 /min SCREW DOWN-C Lakisha Blancaesa SCREW DOWN Work Phone: [facility] [facility] Work Phone: 03-21-2022 09:08-0400 SaO2% (BldA) [Mass fraction] 98 % SCREW DOWN-C Lakisha Blancaesa SCREW DOWN Work Phone: [facility] Work Phone: 03-21-2022 09:08-0400 Systolic blood pressure 124 mm[Hg] SCREW DOWN-C Lakisha Ciesa SCREW DOWN Work Phone: [facility] Work Phone: 03-21-2022 08:28-0400 Body temperature 97.4 [degF] SCREW DOWN-C Lakisha Spears SCREW DOWN Work Phone: [facility] Work Phone: 03-21-2022 06:25-0400 Body height 165.1 cm SCREW DOWN-C Lakisha Spears SCREW DOWN Work Phone: [facility] Work Phone: 03-21-2022 06:25-0400 Body mass index (BMI) [Ratio] 38.2 kg/m2 SCREW DOWN-C Lakisha Spears SCREW DOWN Work Phone: [facility] Work Phone: 03-21-2022 06:25-0400 Body weight 104.14 kg SCREW DOWN-C Lakisha Spears SCREW DOWN Work Phone: [facility] Work Phone: 01-31-2022 09:21-0400 Body height 165.74 cm Meena Su [facility]; [facility] Work Phone: 01-31-2022 09:21-0400 Body mass index (BMI) [Ratio] 37.62 kg/m2 Meena Su [facility]; [facility] Work Phone: 01-31-2022 09:21-0400 Body surface area Derived from formula 2.1 m2 Meena Su [facility]; [facility] Work Phone: 01-31-2022 09:21-0400 Body temperature 97.3 [degF] Meena Su [facility]; [facility] Work Phone: 01-31-2022 09:21-0400 Body weight 103.33 kg Meena Su [facility]; [facility] Work Phone: 01-31-2022 09:21-0400 Diastolic blood pressure 82 mm[Hg] Meena Su [facility]; [facility] Work Phone: 01-31-2022 09:21-0400 Heart rate 89 /min Meena Su [facility]; [facility] Work Phone: 01-31-2022 09:21-0400 Respiratory rate 16 /min Meena Su [facility]; [facility] Work Phone: 01-31-2022 09:21-0400 SaO2% (BldA) [Mass fraction] 99 % Meena Su [facility]; [facility] Work Phone: 01-31-2022 09:21-0400 Systolic blood pressure 126 mm[Hg] Meena Su [facility]; [facility] Work Phone: 01-27-2022 20:16-0400 Diastolic blood pressure 86 mm[Hg] SCREW DOWN-C Lakisha Changa SCREW DOWN Work Phone: [facility] Work Phone: 01-27-2022 20:16-0400 Systolic blood pressure 144 mm[Hg] SCREW DOWN-C Lakisha Changa SCREW DOWN Work Phone: [facility] Work Phone: 01-27-2022 20:16-0400 Diastolic blood pressure 86 mm[Hg] SCREW DOWN-C Lakisha Blancaesa SCREW DOWN Work Phone: [facility] Work Phone: 01-27-2022 20:16-0400 Systolic blood pressure 144 mm[Hg] SCREW DOWN-C Lakisha Blancaesa SCREW DOWN Work Phone: [facility] Work Phone: 01-27-2022 10:48-0400 Body mass index (BMI) [Ratio] 39.4 kg/m2 SCREW DOWN-C Lakisha Ciesa SCREW DOWN Work Phone: [facility] Work Phone: 01-27-2022 10:48-0400 Body temperature 98.6 [degF] SCREW DOWN-C Lakisha Riannaesa SCREW DOWN Work Phone: [facility] Work Phone: 01-27-2022 10:48-0400 Body weight 104.32 kg SCREW DOWN-C Lakisha Spears SCREW DOWN Work Phone: [facility] Work Phone: 01-27-2022 10:48-0400 Heart rate 99 /min SCREW DOWN-C Lakisha Spears SCREW DOWN Work Phone: [facility] Work Phone: 01-27-2022 10:48-0400 Respiratory rate 20 /min SCREW DOWN-C Lakisha Spears SCREW DOWN Work Phone: [facility] Work Phone: 01-27-2022 10:48-0400 SaO2% (BldA) [Mass fraction] 98 % SCREW DOWN-C Lakisha Spears SCREW DOWN Work Phone: [facility] Work Phone: 01-27-2022 10:48-0400 Body height 162.56 cm SCREW DOWN-C Lakisha Spears SCREW DOWN Work Phone: [facility] Work Phone: 01-27-2022 10:48-0400 Body mass index (BMI) [Ratio] 39.4 kg/m2 SCREW DOWN-C Lakisha Spears SCREW DOWN Work Phone: [facility] Work Phone: 01-27-2022 10:48-0400 Body temperature 98.6 [degF] SCREW DOWN-C Lakisha Spears SCREW DOWN Work Phone: [facility] Work Phone: 01-27-2022 10:48-0400 Body weight 104.32 kg SCREW DOWN-C Lakisha Spears SCREW DOWN Work Phone: [facility] Work Phone: 01-27-2022 10:48-0400 Heart rate 99 /min SCREW DOWN-C Lakisha Spears SCREW DOWN Work Phone: [facility] Work Phone: 01-27-2022 10:48-0400 Respiratory rate 20 /min SCREW DOWN-C Lakisha Spears SCREW DOWN Work Phone: [facility] Work Phone: 01-27-2022 10:48-0400 SaO2% (BldA) [Mass fraction] 98 % SCREW DOWN-C Lakisha Changa SCREW DOWN Work Phone: [facility] Work Phone: 11-03-2021 07:29-0500 Body mass index (BMI) [Ratio] 38.6 kg/m2 SCREW DOWN-C Lakisha Changa SCREW DOWN Work Phone: [facility] Work Phone: 11-03-2021 07:29-0500 Body weight 102.05 kg SCREW DOWN-C Lakisha Changa SCREW DOWN Work Phone: [facility] Work Phone: 11-03-2021 07:29-0500 Diastolic blood pressure 82 mm[Hg] SCREW DOWN-C Lakisha Changa SCREW DOWN Work Phone: [facility] Work Phone: 11-03-2021 07:29-0500 Heart rate 87 /min SCREW DOWN-C Lakisha Changa SCREW DOWN Work Phone: [facility] Work Phone: 11-03-2021 07:29-0500 Respiratory rate 18 /min SCREW DOWN-C Lakisha Changa SCREW DOWN Work Phone: [facility] Work Phone: 11-03-2021 07:29-0500 SaO2% (BldA) [Mass fraction] 98 % SCREW DOWN-C Lakisha Changa SCREW DOWN Work Phone: [facility] Work Phone: 11-03-2021 07:29-0500 Systolic blood pressure 138 mm[Hg] SCREW DOWN-C Lakisha Changa SCREW DOWN Work Phone: [facility] Work Phone: 10-31-2021 09:23-0500 Body temperature 97.3 [degF] SCREW DOWN-C Lakisha Changa SCREW DOWN Work Phone: [facility] Work Phone: 10-31-2021 09:23-0500 Diastolic blood pressure 84 mm[Hg] SCREW DOWN-C Lakisha Changa SCREW DOWN Work Phone: [facility] Work Phone: 10-31-2021 09:23-0500 Heart rate 93 /min SCREW DOWN-C Lakisha Blancaesa SCREW DOWN Work Phone: [facility] Work Phone: 10-31-2021 09:23-0500 Respiratory rate 16 /min SCREW DOWN-C Lakisha Changa SCREW DOWN Work Phone: [facility] Work Phone: 10-31-2021 09:23-0500 SaO2% (BldA) [Mass fraction] 99 % SCREW DOWN-C Lakisha Changa SCREW DOWN Work Phone: [facility] Work Phone: 10-31-2021 09:23-0500 Systolic blood pressure 122 mm[Hg] SCREW DOWN-C Lakisha Changa SCREW DOWN Work Phone: [facility] Work Phone: 10-11-2021 07:38-0500 Body weight 101.6 kg SCREW DOWN-C Lakisha Changa SCREW DOWN Work Phone: [facility] Work Phone: 10-08-2021 06:51-0500 Body mass index (BMI) [Ratio] 38.4 kg/m2 SCREW DOWN-C Lakisha Changa SCREW DOWN Work Phone: [facility] Work Phone: 08-25-2021 08:17-0500 Body height 165.74 cm Preston Kang LPN [facility]; [facility] Work Phone: 08-25-2021 08:17-0500 Body mass index (BMI) [Ratio] 36.96 kg/m2 Preston Kang PERSONAL COMPUTER NETWORK ENGINEER [facility]; [facility] Work [...] Mass Index) 37.98 kg/m2 Preston Kang LPN [facility]; [facility] Work Phone: 12-23-2020 09:17-0400 Body Temperature 96.9 [degF] Preston Kang LPN [facility]; [facility] [...] 12-23-2020 09:17-0400 Pulse (Heart Rate) 98 /min rPeston Kang LPN [facility]; [facility] Work Phone: Comment on above: Pattern: Regular 12-23-2020 09:17-0400 Pulse Oximetry 98 % Lakisha Spears [facility]; [facility] [...] (Body Mass Index) 37.98 kg/m2 Priscilla Whit MACHINE ASSEMBLER FOR [employer] Work Phone: [facility] Work Phone: 08-14-2020 07:58-0500 Body weight 104.33 kg Lakisha Spears MACHINE ASSEMBLER [employer] Work Phone: [facility] Work Phone: 08-14-2020 07:58-0500 BP Diastolic 70 mm[Hg] Lakisha Spears MACHINE ASSEMBLER [employer] Work Phone: [facility] Work Phone: Comment on above: Patient Position: Supine; Cuff Location: Right Arm; Cuff Size: Standard 08-14-2020 07:58-0500 BP Systolic 132 mm[Hg] Lakisha Spears MACHINE ASSEMBLER [employer] Work Phone: [facility] Work Phone: Comment on above: Patient Position: Supine; Cuff Location: Right Arm; Cuff Size: Standard 08-14-2020 07:58-0500 BSA (Body Surface Area) 2.11 m2 Lakisha Spears MACHINE ASSEMBLER [employer] Work Phone: [facility] Work Phone: 08-14-2020 07:58-0500 Height 165.74 cm Lakisha Spears MACHINE ASSEMBLER [employer] Work Phone: [facility] Work Phone: 08-14-2020 07:58-0500 Pulse (Heart Rate) 76 /min Lakisha Spears MACHINE ASSEMBLER [employer] Work Phone: [facility] Work Phone: Comment on above: Pattern: Regular 04-02-2020 08:20-0400 BMI (Body Mass Index) 37.98 kg/m2 [facility] Work Phone: 04-02-2020 08:20-0400 Body Temperature 97.5 [degF] Maria Luisa Villegas LPN [facility] Internal Medicine Work Phone: Comment on above: Method: Temporal 04-02-2020 08:20-0400 Body weight 104.33 kg Maria Luisa Villegas LPN [facility] Work Phone: 04-02-2020 08:20-0400 BP Diastolic 82 mm[Hg] Maria Luisa Villegas LPN [facility] Medicine Work Phone: Comment on above: Patient Position: Sitting; Cuff Location : Left Arm; Cuff Size: Standard 04-02-2020 08:20-0400 BP Systolic 118 mm[Hg] Maria Luisa Villegas LPN [facility] Work Phone: Comment on above: Patient Position: Sitting; Cuff Location : Left Arm; Cuff Size: Standard 04-02-2020 08:20-0400 BSA (Body Surface Area) 2.11 m2 Maria Luisa Bakari GABY [facility] Internal Medicine Work Phone: 04-02-2020 08:20-0400 Height 165.74 cm Maria Luisa Bakari GRIFFIN [facility] Internal Medicine Work Phone: 04-02-2020 08:20-0400 Pulse (Heart Rate) 86 /min Maria Luisa Bakari LPN [facility] Work Phone: Comment on above: Pattern: Regular 04-02-2020 08:20-0400 Pulse Oximetry 97 % Lakisha Spears [facility] Medicine Work Phone: Comment on above: Room air 04-02-2020 08:20-0400 Respiratory Rate 16 /min Maria Luisa Bakari GRIFFIN [facility] Medicine Work Phone: Comment on above: Pattern: Unlabored 04-02-2020 08:20-0400 SaO2% (BldA) [Mass fraction] 97 % Maria Luisa Villegas LPN [facility]; [facility] Work Phone: 02-12-2020 10:37-0400 BMI (Body Mass Index) 37.98 kg/m2 Preston Kang LPN [facility] Work Phone: 02-12-2020 10:37-0400 Body Temperature 97.9 [degF] Preston Kang LPN [facility] Internal Medicine Work Phone: Comment on above: Method: Temporal 02-12-2020 10:37-0400 Body weight 104.33 kg Preston Kang LPN [facility] Medicine Work Phone: 02-12-2020 10:37-0400 BP Diastolic 92 mm[Hg] Preston Kang LPN [facility] Internal Medicine Work Phone: Comment on above: Patient Position: Sitting; Cuff Location : Left Arm; Cuff Size: Standard 02-12-2020 10:37-0400 BP Systolic 152 mm[Hg] Preston Kang LPN [facility] Internal Medicine Work Phone: [...] 10:37-0400 Pulse Oximetry 96 % Lakisha Spears [facility] Internal Medicine Work Phone: Comment on above: Room air 02-12-2020 10:37-0400 Respiratory Rate 16 /min Preston Kang LPN [facility] Internal Medicine Work Phone: Comment on above: Pattern: Unlabored 02-12-2020 10:37-0400 SaO2% (BldA) [Mass fraction] 96 % Preston Kang LPN [facility]; [facility] Work Phone: 11-05-2019 09:43-0500 BMI (Body Mass Index) 37.49 kg/m2 Preston Kang LPN [facility] Work Phone: 11-05-2019 09:43-0500 Body Temperature 97.2 [degF] Preston Kang LPN [facility] Internal Medicine Work Phone: Comment on above: Method: Temporal 11-05-2019 09:43-0500 Body weight 102.99 kg Preston Kang LPN [facility] Work Phone: 11-05-2019 09:43-0500 BP Diastolic 78 mm[Hg] Preston Kang LPN [facility] Internal Medicine Work Phone: Comment on above: Patient Position: Sitting; Cuff Location : Left Arm; Cuff Size: Standard 11-05-2019 09:43-0500 BP Systolic 128 mm[Hg] Preston Kang LPN [facility] Internal Medicine Work Phone: [...] Body Temperature 97.7 [degF] Maria Luisa Angel [facility] Internal Medicine Work Phone: Comment on above: Method: Temporal 08-13-2018 14:06-0500 Body weight 97.98 kg Maria Luisa Angel [facility] Medicine Work Phone: 08-13-2018 14:06-0500 BP Diastolic 80 mm[Hg] Maria Luisa Angel [facility] Medicine Work Phone: Comment on above: Patient Position: Sitting; Cuff Location : Left Arm; Cuff Size: Standard 08-13-2018 14:06-0500 BP Systolic 130 mm[Hg] Maria Luisa Angel [facility] Work Phone: Comment on above: Patient Position: Sitting; Cuff Location : Left Arm; Cuff Size: Standard 08-13-2018 14:06-0500 BSA (Body Surface Area) 2.05 m2 Maria Luisa Angel [facility] Medicine Work Phone: 08-13-2018 14:06-0500 Height 165.74 cm Maria Luisa Angel [facility] Medicine Work Phone: 08-13-2018 14:06-0500 Pulse (Heart Rate) 74 /min Maria Luisa Angel [facility] Medicine Work Phone: Comment on above: Pattern: Regular 08-13-2018 14:06-0500 Pulse Oximetry 99 % Lakisha Spears [facility] Internal Medicine Work Phone: Comment on above: Room air 08-13-2018 14:06-0500 Respiratory Rate 16 /min Maria Luisa Angel [facility] Internal Medicine Work Phone: Comment on above: Pattern: Unlabored 08-13-2018 14:06-0500 SaO2% (BldA) [Mass fraction] 99 % Maria Luisa Angel [facility]; [facility] Work Phone: 08-13-2018 14:06-0500 Weight 97.98 kg Lakisha Spears [facility] Medicine Work Phone: 08-06-2018 08:31-0500 BMI (Body Mass Index) 35.17 kg/m2 Maria Luisa Angel [facility] Internal Medicine Work Phone: 08-06-2018 08:31-0500 Body Temperature 97.4 [degF] Maria Luisa Angel [facility] Medicine Work Phone: Comment on above: Method: Temporal 08-06-2018 08:31-0500 Body weight 96.62 kg Maria Luisa Angel [facility] Medicine Work Phone: 08-06-2018 08:31-0500 BP Diastolic 82 mm[Hg] Maria Luisa Angel [facility] Medicine Work Phone: Comment on above: Patient Position: Sitting; Cuff Location : Left Arm; Cuff Size: Standard 08-06-2018 08:31-0500 BP Systolic 132 mm[Hg] Maria Luisa Angel [facility] Medicine Work Phone: Comment on above: Patient Position: Sitting; Cuff Location : Left Arm; Cuff Size: Standard 08-06-2018 08:31-0500 BSA (Body Surface Area) 2.04 m2 Maria Luisa Angel [facility] Medicine Work Phone: 08-06-2018 08:31-0500 Height 165.74 cm Maria Luisa Angel [facility] Medicine Work Phone: 08-06-2018 08:31-0500 Pulse (Heart Rate) 84 /min Maria Luisa Angel [facility] Medicine Work Phone: Comment on above: Pattern: Regular 08-06-2018 08:31-0500 Pulse Oximetry 98 % Lakisha Spears [facility] Medicine Work Phone: Comment on above: Room air 08-06-2018 08:31-0500 Respiratory Rate 17 /min Maria Luisa Angel [facility] Internal Medicine Work Phone: Comment on above: Pattern: Unlabored 08-06-2018 08:31-0500 SaO2% (BldA) [Mass fraction] 98 % Maria Luisa Angel [facility] Internal [facility]; [facility] Work Phone: 08-06-2018 08:31-0500 Weight 96.62 kg Lakisha Spears [facility] Medicine Work Phone: 04-13-2018 08:09-0400 BMI (Body Mass Index) 35.17 kg/m2 Preston Kang LPN [facility] Internal Medicine Work Phone: 04-13-2018 08:09-0400 Body Temperature 96.7 [degF] Preston Kang LPN [facility] Medicine Work Phone: 04-13-2018 08:09-0400 Body weight 96.62 kg Preston Kang LPN [facility] Medicine Work Phone: 04-13-2018 08:09-0400 BP Diastolic 78 mm[Hg] Preston Kang LPN [facility] Medicine Work Phone: Comment on above: Patient Position: Sitting; Cuff Location : Left Arm; Cuff Size: Standard 04-13-2018 08:09-0400 BP Systolic 122 mm[Hg] Preston Kang LPN [facility] Internal Medicine Work Phone: Comment on above: Patient Position: Sitting; Cuff Location : Left Arm; Cuff Size: Standard 04-13-2018 08:09-0400 BSA (Body Surface Area) 2.04 m2 Preston Kang LPN [facility] Internal Medicine Work Phone: 04-13-2018 08:09-0400 Height 165.74 cm Preston Kang LPN [facility] Work Phone: 04-13-2018 08:09-0400 Pulse (Heart Rate) 88 /min Preston Kang LPN [facility] Work Phone: Comment on above: Pattern: Regular 04-13-2018 08:09-0400 Pulse Oximetry 98 % Lakisha Spears [facility] Medicine Work Phone: Comment on above: Room air 04-13-2018 08:09-0400 Respiratory Rate 17 /min Preston Kang LPN [facility] Work Phone: Comment on above: Pattern: Unlabored 04-13-2018 08:09-0400 SaO2% (BldA) [Mass fraction] 98 % Preston Kang LPN [facility]; [facility] Work Phone: 04-13-2018 08:09-0400 Weight 96.62 kg Lakisha Spears [facility] Medicine Work Phone: 12-07-2017 08:55-0400 [...] Respiratory Rate 18 /min Preston Jorge Luis PERSONAL COMPUTER NETWORK ENGINEER [facility] Work Phone: Comment on above: Pattern: Unlabored 12-07-2017 08:55-0400 SaO2% (BldA) [Mass fraction] 98 % Preston Jorge Luis GRIFFIN [facility]; [facility] Work Phone: 12-07-2017 08:55-0400 Weight 96.62 kg Lakisha Changbernadine [facility] Work Phone: 07-25-2017 10:16-0500 Body Temperature 97.6 [degF] Lakisha Spears MACHINE ASSEMBLER FOR [employer] Work Phone: [facility] Work Phone: 07-25-2017 10:16-0500 BP Diastolic 84 mm[Hg] Lakisha Spears MACHINE ASSEMBLER [employer] Work Phone: [facility] Work Phone: Comment on above: Patient Position: Supine; Cuff Location: Right Arm; Cuff Size: Standard 07-25-2017 10:16-0500 BP Systolic 126 mm[Hg] Lakisha Spears MACHINE ASSEMBLER FOR [employer] Work Phone: [facility] Work Phone: Comment on above: Patient Position: Supine; Cuff Location: Right Arm; Cuff Size: Standard 07-25-2017 10:16-0500 Pulse (Heart Rate) 98 /min Lakisha Spears MACHINE ASSEMBLER [employer] Work Phone: [facility] Work Phone: Comment on above: Pattern: Regular 07-25-2017 10:16-0500 Respiratory Rate 16 /min Lakisha Spears MACHINE ASSEMBLER FOR [employer] Work Phone: [facility] Medicine Work Phone: 07-25-2017 09:27-0500 BMI (Body Mass Index) 35.17 kg/m2 Krista Castillo PERSONAL COMPUTER NETWORK ENGINEER [facility] Internal Medicine Work Phone: 07-25-2017 09:27-0500 Body weight 96.62 kg Krista Castillo PERSONAL COMPUTER NETWORK ENGINEER [facility] Medicine Work Phone: 07-25-2017 09:27-0500 BSA (Body Surface Area) 2.04 m2 Krista Castillo PERSONAL COMPUTER NETWORK ENGINEER [facility] Work Phone: 07-25-2017 09:27-0500 Height 165.74 cm Krista Castillo PERSONAL COMPUTER NETWORK ENGINEER [facility] Work Phone: 07-25-2017 09:27-0500 Weight 96.62 kg Lakisha Spears [facility] Work Phone: 09-13-2016 08:14-0500 BMI (Body Mass Index) 34.68 kg/m2 Aaliyah Manasa [facility] Medicine Work Phone: 09-13-2016 08:14-0500 Body Temperature 97.5 [degF] Aaliyah Goel [facility] Work Phone: Comment on above: Method: Temporal 09-13-2016 08:14-0500 Body weight 95.26 kg Aaliyah Goel [facility] Medicine Work Phone: 09-13-2016 08:14-0500 BP Diastolic 86 mm[Hg] Aaliyah Goel [facility] Medicine Work Phone: Comment on above: Patient Position: Sitting; Cuff Location : Left Arm; Cuff Size: Large 09-13-2016 08:14-0500 BP Systolic 138 mm[Hg] Aaliyah Goel [facility] Medicine Work Phone: Comment on above: Patient Position: Sitting; Cuff Location : Left Arm; Cuff Size: Large 09-13-2016 08:14-0500 BSA (Body Surface Area) 2.03 m2 Aaliyah Goel [facility] Work Phone: 09-13-2016 08:14-0500 Height 165.74 cm Aaliyah Goel [facility] Work Phone: 09-13-2016 08:14-0500 Pulse (Heart Rate) 88 /min Aaliyah Goel [facility] Work Phone: Comment on above: Pattern: Regular 09-13-2016 08:14-0500 Pulse Oximetry 98 % Lakisha Spears [facility] Medicine Work Phone: Comment on above: Room air 09-13-2016 08:14-0500 Respiratory Rate 16 /min Aaliyah Goel [facility] Work Phone: Comment on above: Pattern: Unlabored 09-13-2016 08:14-0500 SaO2% (BldA) [Mass fraction] 98 % Aaliyah Goel [facility]; [facility] Work Phone: 09-13-2016 08:14-0500 Weight 95.26 kg Lakisha Spears [facility] Work Phone: 06-27-2016 11:18-0400 BMI (Body Mass Index) 34.37 kg/m2 Krista Slarb PERSONAL COMPUTER NETWORK ENGINEER [facility] Work Phone: 06-27-2016 11:18-0400 Body Temperature 97.5 [degF] Krista Slarb PERSONAL COMPUTER NETWORK ENGINEER [facility] Work Phone: 06-27-2016 11:18-0400 Body weight 94.41 kg Krista Slarb PERSONAL COMPUTER NETWORK ENGINEER [facility] Work Phone: 06-27-2016 11:18-0400 BP Diastolic 84 mm[Hg] Krista Slarb PERSONAL COMPUTER NETWORK ENGINEER [facility] Work Phone: Comment on above: Patient Position: Sitting; Cuff Location : Left Arm; Cuff Size: Standard 06-27-2016 11:18-0400 BP Systolic 124 mm[Hg] Krista Slarb PERSONAL COMPUTER NETWORK ENGINEER [facility] Work Phone: Comment on above: Patient Position: Sitting; Cuff Location : Left Arm; Cuff Size: Standard 06-27-2016 11:18-0400 BSA (Body Surface Area) 2.02 m2 Krista Castillo LPN [facility] Work Phone: 06-27-2016 11:18-0400 Height 165.74 cm Krista Cleaningrb PERSONAL COMPUTER NETWORK ENGINEER [facility] Work Phone: 06-27-2016 11:18-0400 Pulse (Heart Rate) 73 /min Krista Castillo PERSONAL COMPUTER NETWORK ENGINEER [facility] Work Phone: Comment on above: Pattern: Regular 06-27-2016 11:18-0400 Pulse Oximetry 97 % Lakisha Spears [facility] Internal Medicine Work Phone: Comment on above: Room air 06-27-2016 11:18-0400 Respiratory Rate 16 /min Krista Cleaningrb PERSONAL COMPUTER NETWORK ENGINEER [facility] Work Phone: Comment on above: Pattern: Unlabored 06-27-2016 11:18-0400 SaO2% (BldA) [Mass fraction] 97 % Krista Slarb PERSONAL COMPUTER NETWORK ENGINEER [facility]; [facility] Work Phone: 06-27-2016 11:18-0400 Weight 94.41 kg Lakisha Spears [facility] Internal Medicine Work Phone: 06-14-2016 14:08-0400 BMI (Body Mass Index) 34.37 kg/m2 Krista Blackrb PERSONAL COMPUTER NETWORK ENGINEER Comprehen [facility] Internal Medicine Work Phone: 06-14-2016 14:08-0400 Body Temperature 97.5 [degF] Krista Slarb PERSONAL COMPUTER NETWORK ENGINEER [facility] Work Phone: 06-14-2016 14:08-0400 Body weight 94.41 kg Krista Slarb PERSONAL COMPUTER NETWORK ENGINEER [facility] Work Phone: 06-14-2016 14:08-0400 BP Diastolic 82 mm[Hg] Krista Slarb PERSONAL COMPUTER NETWORK ENGINEER [facility] Work Phone: Comment on above: Patient Position: Sitting; Cuff Location : Left Arm; Cuff Size: Standard 06-14-2016 14:08-0400 BP Systolic 124 mm[Hg] Krista Slarb PERSONAL COMPUTER NETWORK ENGINEER [facility] Work Phone: Comment on above: Patient Position: Sitting; Cuff Location : Left Arm; Cuff Size: Standard 06-14-2016 14:08-0400 BSA (Body Surface Area) 2.02 m2 Krista Castillo LPN [facility] Work Phone: 06-14-2016 14:08-0400 Height 165.74 cm Krista Cleaningrb PERSONAL COMPUTER NETWORK ENGINEER [facility] Work Phone: 06-14-2016 14:08-0400 Pulse (Heart Rate) 70 /min Krista Cleaningrb PERSONAL COMPUTER NETWORK ENGINEER Comprehensiv e Internal Medicine Work Phone: Comment on above: Pattern: Regular 06-14-2016 14:08-0400 Pulse Oximetry 96 % Lakisha Spears [facility] Internal Medicine Work Phone: Comment on above: Room air 06-14-2016 14:08-0400 Respiratory Rate 17 /min Krista Cleaningrb PERSONAL COMPUTER NETWORK ENGINEER [facility] Work Phone: Comment on above: Pattern: Unlabored 06-14-2016 14:08-0400 SaO2% (BldA) [Mass fraction] 96 % Krista Cleaningrb PERSONAL COMPUTER NETWORK ENGINEER [facility]; [facility] Work Phone: 06-14-2016 14:08-0400 Weight 94.41 kg Lakisha Spears [facility] Internal Medicine Work Phone: 06-13-2016 10:06-0400 BMI (Body Mass Index) 34.37 kg/m2 Krista Blackrb PERSONAL COMPUTER NETWORK ENGINEER Compre[facility] Medicine Work Phone: 06-13-2016 10:06-0400 Body Temperature 97.8 [degF] Krista Blackrb PERSONAL COMPUTER NETWORK ENGINEER [facility] Work Phone: 06-13-2016 10:06-0400 Body weight 94.41 kg Krista Blackrb PERSONAL COMPUTER NETWORK ENGINEER [facility] Work Phone: 06-13-2016 10:06-0400 BP Diastolic 82 mm[Hg] Krista Slarb PERSONAL COMPUTER NETWORK ENGINEER [facility] Work Phone: Comment on above: Patient Position: Sitting; Cuff Location : Left Arm; Cuff Size: Standard 06-13-2016 10:06-0400 BP Systolic 124 mm[Hg] Krista Blackrb PERSONAL COMPUTER NETWORK ENGINEER [facility] Work Phone: Comment on above: Patient Position: Sitting; Cuff Location : Left Arm; Cuff Size: Standard 06-13-2016 10:06-0400 BSA (Body Surface Area) 2.02 m2 Krista Slarb PERSONAL COMPUTER NETWORK ENGINEER [facility] Work Phone: 06-13-2016 10:06-0400 Height 165.74 cm Krista Slarb PERSONAL COMPUTER NETWORK ENGINEER [facility] Work Phone: 06-13-2016 10:06-0400 Pulse (Heart Rate) 77 /min Krista Blackrb PERSONAL COMPUTER NETWORK ENGINEER Comprehensiv e Internal Medicine Work Phone: Comment on above: Pattern: Regular 06-13-2016 10:06-0400 Pulse Oximetry 98 % Lakisha Spears [facility] Internal Medicine Work Phone: Comment on above: Room air 06-13-2016 10:06-0400 Respiratory Rate 16 /min Krista Blackrb PERSONAL COMPUTER NETWORK ENGINEER [facility] Work Phone: Comment on above: Pattern: Unlabored 06-13-2016 10:06-0400 SaO2% (BldA) [Mass fraction] 98 % Krista Slarb PERSONAL COMPUTER NETWORK ENGINEER [facility]; [facility] Work Phone: 06-13-2016 10:06-0400 Weight 94.41 kg Lakisha Spears [facility] Internal Medicine Work Phone: 12-11-2015 08:24-0400 BMI (Body Mass Index) 34.37 kg/m2 Krista Slarb PERSONAL COMPUTER NETWORK ENGINEER Compre[facility] Medicine Work Phone: 12-11-2015 08:24-0400 Body Temperature 97.3 [degF] Krista Slarb PERSONAL COMPUTER NETWORK ENGINEER [facility] Work Phone: 12-11-2015 08:24-0400 Body weight 94.41 kg Krista Slarb PERSONAL COMPUTER NETWORK ENGINEER [facility] Work Phone: 12-11-2015 08:24-0400 BP Diastolic 82 mm[Hg] Krista Slarb PERSONAL COMPUTER NETWORK ENGINEER [facility] Work Phone: Comment on [...] 08:24-0400 Pulse Oximetry 97 % Lakisha Spears [facility] Internal Medicine Work Phone: Comment on above: Room air 12-11-2015 08:24-0400 Respiratory Rate 18 /min Krista Castillo LPN [facility] Work Phone: Comment on above: Pattern: Unlabored 12-11-2015 08:24-0400 SaO2% (BldA) [Mass fraction] 97 % Krista Castillo PERSONAL COMPUTER NETWORK ENGINEER [facility]; [facility] Work Phone: 12-11-2015 08:24-0400 Weight 94.41 kg Lakisha Spears [facility] Work Phone: 11-23-2015 09:00-0400 BMI (Body Mass Index) 34.37 kg/m2 Krista Castillo PERSONAL COMPUTER NETWORK ENGINEER Compre[facility] Medicine Work Phone: 11-23-2015 09:00-0400 Body Temperature 97.6 [degF] Krista Castillo PERSONAL COMPUTER NETWORK ENGINEER [facility] Work Phone: 11-23-2015 09:00-0400 Body weight 94.41 kg Krista Castillo PERSONAL COMPUTER NETWORK ENGINEER [facility] Work Phone: 11-23-2015 09:00-0400 BP Diastolic 84 mm[Hg] Krista Slarb PERSONAL COMPUTER NETWORK ENGINEER [facility] Work Phone: Comment on above: Patient Position: Sitting; Cuff Location : Left Arm; Cuff Size: Standard 11-23-2015 09:00-0400 BP Systolic 128 mm[Hg] Krista Slarb PERSONAL COMPUTER NETWORK ENGINEER [facility] Work Phone: Comment on above: Patient Position: Sitting; Cuff Location : Left Arm; Cuff Size: Standard 11-23-2015 09:00-0400 BSA (Body Surface Area) 2.02 m2 Krista Slarb PERSONAL COMPUTER NETWORK ENGINEER [facility] Work Phone: 11-23-2015 09:00-0400 Height 165.74 cm Krista Slarb PERSONAL COMPUTER NETWORK ENGINEER [facility] Work Phone: 11-23-2015 09:00-0400 Pulse (Heart Rate) 112 /min Krista Blackrb PERSONAL COMPUTER NETWORK ENGINEER Comprehensiv e Internal Medicine Work Phone: Comment on above: Pattern: Regular 11-23-2015 09:00-0400 Pulse Oximetry 96 % Lakisha Spears [facility] Internal Medicine Work Phone: Comment on above: Room air 11-23-2015 09:00-0400 Respiratory Rate 16 /min Krista Blackrb PERSONAL COMPUTER NETWORK ENGINEER [facility] Work Phone: Comment on above: Pattern: Unlabored 11-23-2015 09:00-0400 SaO2% (BldA) [Mass fraction] 96 % Krista Blackrb PERSONAL COMPUTER NETWORK ENGINEER [facility]; [facility] Work Phone: 11-23-2015 09:00-0400 Weight 94.41 kg Lakisha Spears [facility] Internal Medicine Work Phone: 10-26-2015 09:44-0500 BMI (Body Mass Index) 34.88 kg/m2 Krista Slarb PERSONAL COMPUTER NETWORK ENGINEER Compre[facility] Work Phone: 10-26-2015 09:44-0500 Body Temperature 96.4 [degF] Krista Slarb PERSONAL COMPUTER NETWORK ENGINEER [facility] Work Phone: 10-26-2015 09:44-0500 Body weight 95.82 kg Krista Slarb PERSONAL COMPUTER NETWORK ENGINEER [facility] Work Phone: 10-26-2015 09:44-0500 BP Diastolic 82 mm[Hg] Krista Castillo PERSONAL COMPUTER NETWORK ENGINEER [facility] Work Phone: Comment on above: Patient Position: Sitting; Cuff Location : Left Arm; Cuff Size: Standard 10-26-2015 09:44-0500 BP Systolic 132 mm[Hg] Krista Castillo PERSONAL COMPUTER NETWORK ENGINEER [facility] Work Phone: Comment on above: Patient Position: Sitting; Cuff Location : Left Arm; Cuff Size: Standard 10-26-2015 09:44-0500 BSA (Body Surface Area) 2.03 m2 Krista Castillo PERSONAL COMPUTER NETWORK ENGINEER [facility] Work Phone: 10-26-2015 09:44-0500 Height 165.74 cm Kristabernadine Castillo PERSONAL COMPUTER NETWORK ENGINEER [facility] Work Phone: 10-26-2015 09:44-0500 Pulse (Heart Rate) 97 /min Kristabernadine Castillo GABY Comprehensiv e Internal Medicine Work Phone: Comment on above: Pattern: Regular 10-26-2015 09:44-0500 Pulse Oximetry 18 % Lakisha Spears [facility] Work Phone: Comment on above: Room air 10-26-2015 09:44-0500 Respiratory Rate 18 /min Kristabernadine Castillo PERSONAL COMPUTER NETWORK ENGINEER [facility] Work Phone: Comment on [...] 09-01-2014 10:50-0500 Weight 90.72 kg Lakisha Spears [facility] Internal Medicine Work Phone: 01-07-2014 07:50-0400 BMI (Body Mass Index) 33.03 kg/m2 Elizabet Johnston RN [facility] Internal Medicine Work Phone: 01-07-2014 07:50-0400 Body [...] 09:41-0500 Pulse Oximetry 98 % Lakisha Spears [facility] Internal Medicine Work Phone: Comment on above: Room air 08-23-2013 09:41-0500 Respiratory Rate 18 /min Katia Saunders LPN [facility] Work Phone: 08-23-2013 09:41-0500 SaO2% (BldA) [Mass fraction] 98 % Katia Saunders LPN [facility]; [facility] Work Phone: 08-23-2013 09:41-0500 Weight 95.71 kg Lakisha Spears [facility] Internal Medicine Work Phone: 06-24-2013 13:34-0400 BMI (Body Mass Index) 34.84 kg/m2 MOIRA Crowell LPN [facility] Internal Medicine Work Phone: 06-24-2013 13:34-0400 Body Temperature 97.9 [degF] MOIRA Crowell LPN [facility] Internal Medicine Work Phone: Comment on above: Method: Oral 06-24-2013 13:34-0400 Body weight 95.71 kg MOIRA Crowell LPN [facility] Internal Medicine Work Phone: 06-24-2013 13:34-0400 BP Diastolic 78 mm[Hg] MOIRA Crowell PERSONAL COMPUTER NETWORK ENGINEER [facility] Internal Medicine Work Phone: Comment on above: Patient Position: Sitting; Cuff Location : Left Arm; Cuff Size: Standard 06-24-2013 13:34-0400 BP Systolic 118 mm[Hg] MOIRA Crowell LPN [facility] Internal Medicine Work Phone: Comment on above: Patient Position: Sitting; Cuff Location : Left Arm; Cuff Size: Standard 06-24-2013 13:34-0400 BSA (Body Surface Area) 2.03 m2 MOIRA Crowell LPN [facility] Internal Medicine Work Phone: 06-24-2013 13:34-0400 Height 165.74 cm MOIRA Crowell LPN [facility] Internal Medicine Work Phone: 06-24-2013 13:34-0400 Pulse (Heart Rate) 60 /min MOIRA Crowell PERSONAL COMPUTER NETWORK ENGINEER [facility] Internal Medicine Work Phone: Comment on above: Pattern: Regular 06-24-2013 13:34-0400 Respiratory Rate 18 /min MOIRA Crowell LPN [facility] Internal Medicine Work Phone: Comment on above: Pattern: Unlabored 06-24-2013 13:34-0400 Weight 95.71 kg Lakisha Spears [facility] Internal Medicine Work Phone: 10-26-2012 08:50-0500 BMI (Body Mass Index) 33.06 kg/m2 Elizabet Johnston RN [facility] Internal Medicine Work Phone: 10-26-2012 08:50-0500 Body [...] 10-26-2012 08:50-0500 Weight 90.81 kg Lakisha Spears [facility] Internal Medicine Work Phone: 09-21-2012 08:46-0500 BMI (Body Mass Index) 33.06 kg/m2 Jolene Puckett LPN [facility] Internal Medicine Work Phone: 09-21-2012 08:46-0500 Body Temperature 98.5 [degF] Jolene Puckett LPN [facility] Work Phone: 09-21-2012 08:46-0500 Body weight 90.81 kg Jolene Puckett LPN [facility] Internal Medicine Work Phone: 09-21-2012 [...] 03-26-2012 08:50-0400 Weight 90.75 kg Lakisha Spears [facility] Internal Medicine Work Phone: 03-15-2012 08:32-0400 BMI (Body Mass Index) 33.04 kg/m2 Elizabet Johnston RN [facility] Internal Medicine Work Phone: Comment on [...] 08:32-0400 Pulse Oximetry 96 % Lakisha Whit [facility] Internal Medicine Work Phone: Comment on above: Room air states, I didnt take my bp med this am 03-15-2012 08:32-0400 SaO2% (BldA) [Mass fraction] 96 % Elizabet Johnston RN [facility]; [facility] Work Phone: 03-15-2012 08:32-0400 Weight 90.75 kg Lakisha Spears [facility] Internal Medicine Work Phone: Comment on above: states, I didnt take my bp med this am 12-22-2011 08:32-0400 BMI (Body Mass Index) 33.04 kg/m2 MOIRA Crowell LPN [facility] Work Phone: 12-22-2011 08:32-0400 Body Temperature 97.6 [degF] MOIRA Crowell LPN [facility] Work Phone: Comment on above: Method: Oral 12-22-2011 08:32-0400 Body weight 90.75 kg MOIRA Crowell LPN [facility] Internal Medicine Work Phone: 12-22-2011 08:32-0400 [...] 08:32-0400 Height 165.74 cm MOIRA Crowell LPN [facility] Internal Medicine Work Phone: 12-22-2011 08:32-0400 Pulse (Heart Rate) 76 /min MOIRA Crowell PERSONAL COMPUTER NETWORK ENGINEER [facility] Internal Medicine Work Phone: Comment on above: Pattern: Regular 12-22-2011 08:32-0400 Respiratory Rate 20 /min MOIRA Crowell PERSONAL COMPUTER NETWORK ENGINEER [facility] Work Phone: Comment on above: Pattern: Unlabored 12-22-2011 08:32-0400 Weight 90.75 kg Lakisha Spears [facility] Internal Medicine Work Phone: 08-19-2011 08:26-0500 BMI (Body Mass Index) 32.7 kg/m2 Kelsey Valencia [facility] Internal Medicine Work Phone: 08-19-2011 08:26-0500 Body weight 89.81 kg Kelsey Valencia PERSONAL COMPUTER NETWORK ENGINEER [facility] Work Phone: 08-19-2011 08:26-0500 BSA (Body Surface Area) 1.98 m2 Kelsey Valencia PERSONAL COMPUTER NETWORK ENGINEER [facility] Work Phone: 08-19-2011 08:26-0500 Height 165.74 cm Kelsey Valencia [facility] Internal Medicine Work Phone: 08-19-2011 08:26-0500 Pulse (Heart Rate) 68 /min Kelsey Valencia PERSONAL COMPUTER NETWORK ENGINEER [facility] Work Phone: Comment on above: Pattern: Regular 08-19-2011 08:26-0500 Respiratory Rate 16 /min Kelsey Valencia [facility] Internal Medicine Work Phone: Comment on above: Pattern: Unlabored 08-19-2011 08:26-0500 Weight 89.81 kg Lakisha Spears [facility] Internal Medicine Work Phone: 08-12-2011 10:57-0500 BMI (Body Mass Index) 32.7 kg/m2 Elizabet Johnston RN [facility] Internal Medicine Work Phone: 08-12-2011 10:57-0500 Body [...] Standard 08-12-2011 10:57-0500 BP Systolic 122 mm[Hg] Elizabet Johnston RN [facility] [...] BP Diastolic 80 mm[Hg] MOIRA Crowell LPN [facility] Internal Medicine Work Phone: Comment on above: Patient Position: Sitting; Cuff Location : Left Arm; Cuff Size: Standard 07-29-2011 08:30-0500 BP Systolic 140 mm[Hg] MOIRA Crowell LPN [facility] Internal Medicine Work Phone: Comment on above: Patient Position: Sitting; Cuff Location : Left Arm; Cuff Size: Standard 07-29-2011 08:30-0500 BSA (Body Surface Area) 1.98 m2 [facility] Work Phone: 07-29-2011 08:30-0500 Height 165.74 cm MOIRA Crowell [facility] Internal Medicine Work Phone: 07-29-2011 08:30-0500 Pulse (Heart Rate) 74 /min MOIRA Crowell [facility] Internal Medicine Work Phone: Comment on above: Pattern: Regular 07-29-2011 08:30-0500 Respiratory Rate 18 /min MOIRA Crowell LPN [facility] Internal Medicine Work Phone: Comment on above: Pattern: Unlabored 07-29-2011 08:30-0500 Weight 89.81 kg Lakisha Spears [facility] Internal Medicine Work Phone: 06-30-2011 08:26-0400 BMI (Body Mass Index) 32.7 kg/m2 [facility] Work Phone: 06-30-2011 08:26-0400 Body Temperature 98 [degF] MOIRA Crowell [facility] Internal Medicine Work Phone: Comment on above: Method: Oral 06-30-2011 08:26-0400 Body weight 89.81 kg MOIRA Crowell [facility] Internal Medicine Work Phone: 06-30-2011 08:26-0400 BP Diastolic 78 mm[Hg] MOIRA Crowell [facility] Internal Medicine Work Phone: Comment on above: Patient Position: Sitting; Cuff Location : Left Arm; Cuff Size: Standard 06-30-2011 08:26-0400 BP Systolic 126 mm[Hg] MOIRA Crowell [facility] Internal Medicine Work Phone: Comment on above: Patient Position: Sitting; Cuff Location : Left Arm; Cuff Size: Standard 06-30-2011 08:26-0400 BSA (Body Surface Area) 1.98 m2 MOIRA Crowell LPN [facility] Internal Medicine Work Phone: 06-30-2011 08:26-0400 Height 165.74 cm MOIRA Crowell LPN [facility] Internal Medicine Work Phone: 06-30-2011 08:26-0400 Pulse (Heart Rate) 70 /min MOIRA Crowell LPN [facility] Internal Medicine Work Phone: Comment on above: Pattern: Regular 06-30-2011 08:26-0400 Respiratory Rate 18 /min MOIRA Crowell LPN [facility] Internal Medicine Work Phone: Comment on above: Pattern: Unlabored 06-30-2011 08:26-0400 Weight 89.81 kg Lakisha Spears [facility] Internal Medicine Work Phone: 11-08-2010 09:37-0500 BMI (Body Mass Index) 31.87 kg/m2 Katia Saunders PERSONAL COMPUTER NETWORK ENGINEER [facility] Internal Medicine Work Phone: 11-08-2010 09:37-0500 Body Temperature 97.3 [degF] Katia Saunders PERSONAL COMPUTER NETWORK ENGINEER [facility] Internal Medicine Work Phone: Comment on above: Method: Oral 11-08-2010 09:37-0500 Body weight 87.54 kg Katia Saunders PERSONAL COMPUTER NETWORK ENGINEER [facility] Internal Medicine Work Phone: 11-08-2010 09:37-0500 BP Diastolic 72 mm[Hg] Katia Saunders PERSONAL COMPUTER NETWORK ENGINEER [facility] Internal Medicine Work Phone: Comment on above: Patient Position: Sitting; Cuff Location : Left Arm; Cuff Size: Standard 11-08-2010 09:37-0500 BP Systolic 124 mm[Hg] Katia Saunders PERSONAL COMPUTER NETWORK ENGINEER [facility] Internal Medicine Work Phone: Comment on above: Patient Position: Sitting; Cuff Location : Left Arm; Cuff Size: Standard 11-08-2010 09:37-0500 BSA (Body Surface Area) 1.95 m2 Katia Saunders PERSONAL COMPUTER NETWORK ENGINEER [facility] Work Phone: 11-08-2010 09:37-0500 [...] 10-25-2010 08:46-0500 Weight 87.54 kg Lakisha Spears [facility] Internal Medicine Work Phone: 09-06-2010 11:21-0500 BMI (Body Mass Index) 31.87 kg/m2 MOIRA Crowell LPN [facility] Work Phone: 09-06-2010 11:21-0500 Body Temperature 97.6 [degF] MOIRA Crowell LPN [facility] Work Phone: Comment on above: Method: Oral 09-06-2010 11:21-0500 Body weight 87.54 kg MOIRA Crowell LPN [facility] Internal Medicine Work Phone: 09-06-2010 11:21-0500 BP Diastolic 80 mm[Hg] MOIRA Crowell LPN [facility] Work Phone: Comment on above: Patient Position: Sitting; Cuff Location : Left Arm; Cuff Size: Standard 09-06-2010 11:21-0500 BP Systolic 120 mm[Hg] MOIRA Crowell LPN [facility] Internal Medicine Work Phone: Comment on above: Patient Position: Sitting; Cuff Location : Left Arm; Cuff Size: Standard 09-06-2010 11:21-0500 BSA (Body Surface Area) 1.95 m2 MOIRA Crowell LPN [facility] Internal Medicine Work Phone: 09-06-2010 11:21-0500 Height 165.74 cm MOIRA Crowell LPN [facility] Work Phone: 09-06-2010 11:21-0500 Pulse (Heart Rate) 74 /min MOIRA Crowell LPN [facility] Internal Medicine Work Phone: Comment on above: Pattern: Regular 09-06-2010 11:21-0500 Respiratory Rate 20 /min MOIRA Crowell LPN [facility] Work Phone: Comment on above: Pattern: Unlabored 09-06-2010 11:21-0500 Weight 87.54 kg Lakisha Spears [facility] Work Phone: 08-31-2010 08:25-0500 BMI (Body Mass Index) 31.87 kg/m2 Elizabet Johnston RN [facility] Internal Medicine Work Phone: 08-31-2010 08:25-0500 Body [...] Body Temperature 98.1 [degF] MOIRA Crowell LPN [facility] Internal Medicine Work Phone: Comment on above: Method: Oral 08-27-2010 11:11-0500 Body weight 87.54 kg MOIRA Crowell LPN [facility] Internal Medicine Work Phone: 08-27-2010 11:11-0500 BP Diastolic 80 mm[Hg] MOIRA Crowell LPN [facility] Internal Medicine Work Phone: Comment on above: Patient Position: Sitting; Cuff Location : Left Arm; Cuff Size: Large 08-27-2010 11:11-0500 BP Systolic 122 mm[Hg] MOIRA Crowell LPN [facility] Internal Medicine Work Phone: Comment on above: Patient Position: Sitting; Cuff Location : Left Arm; Cuff Size: Large 08-27-2010 11:11-0500 BSA (Body Surface Area) 1.95 m2 MOIRA Crowell LPN [facility] Internal Medicine Work Phone: 08-27-2010 11:11-0500 Height 165.74 cm MOIRA Crowell LPN [facility] Internal Medicine Work Phone: 08-27-2010 11:11-0500 Pulse (Heart Rate) 72 /min MOIRA Crowell LPN [facility] Internal Medicine Work Phone: Comment on above: Pattern: Regular 08-27-2010 11:11-0500 Respiratory Rate 18 /min MOIRA Crowell LPN [facility] Internal Medicine Work Phone: Comment on above: Pattern: Unlabored 08-27-2010 11:11-0500 Weight 87.54 kg Lakisha Spears [facility] Internal Medicine Work Phone: 03-05-2010 13:41-0400 Body weight 91.17 kg MOIRA Crowell LPN [facility] Internal Medicine Work Phone: 03-05-2010 13:41-0400 BP Diastolic 78 mm[Hg] MOIRA Crowell LPN [facility] Internal Medicine Work Phone: [...] Unlabored 03-05-2010 13:41-0400 Weight 91.17 kg Lakisha Speras [facility] Internal Medicine Work Phone: 04-28-2009 09:50-0400 Body weight 90.72 kg MOIRA Crowell LPN [facility] Internal Medicine Work Phone: 04-28-2009 09:50-0400 [...] 09:50-0400 Head Circumference 0 cm Lakisha Spears [facility] Internal Medicine Work Phone: 04-28-2009 09:50-0400 Head Occipital-frontal circumference 0 cm MOIRA Crowell LPN [facility]; [facility] Work Phone: 04-28-2009 09:50-0400 Height 0 cm MOIRA Crowell LPN [facility] Work Phone: 04-28-2009 09:50-0400 Pulse (Heart Rate) 70 /min MOIRA Crowell LPN [facility] Internal Medicine Work Phone: Comment on above: Pattern: Regular 04-28-2009 09:50-0400 Respiratory Rate 18 /min MOIRA Crowell LPN [facility] Work Phone: Comment on above: Pattern: Unlabored 04-28-2009 09:50-0400 Weight 90.72 kg Lakisha Spears [facility] Internal Medicine Work Phone: 11-04-2008 08:55-0500 Body weight 89.81 kg MOIRA Crowell LPN [facility] Work Phone: 11-04-2008 08:55-0500 BP Diastolic 84 mm[Hg] MOIRA Crowell LPN [facility] Work Phone: Comment on above: Patient Position: Sitting; Cuff Location : Left Arm; Cuff Size: Large 11-04-2008 08:55-0500 BP Systolic 120 mm[Hg] MOIRA Crowell LPN [facility] Work Phone: Comment on above: Patient Position: Sitting; Cuff Location : Left Arm; Cuff Size: Large 11-04-2008 08:55-0500 Head Circumference 0 cm Lakisha Spears [facility] Work Phone: 11-04-2008 08:55-0500 Head Occipital-frontal circumference 0 cm MOIRA Crowell LPN [facility]; [facility] [...] 11-04-2008 08:55-0500 Weight 89.81 kg Lakisha Spears [facility] Work Phone: 10-24-2008 09:29-0500 [...] 09:29-0500 BSA (Body Surface Area) 1.98 m2 Bharti [...] 10:57-0500 Head Circumference 0 cm Lakisha Spears [facility] Work Phone: 08-10-2007 10:57-0500 [...] 08-10-2007 10:57-0500 Weight 87.09 kg Lakisha Spears [facility] Work Phone: 09-26-2006 10:04-0500 BMI (Body Mass Index) 31.35 kg/m2 Katia Saunders PERSONAL COMPUTER NETWORK ENGINEER [facility] Work Phone: 09-26-2006 10:04-0500 Body Temperature 98 [degF] Katia Saunders PERSONAL COMPUTER NETWORK ENGINEER [facility] Work Phone: Comment on above: Method: Oral 09-26-2006 10:04-0500 Body weight 88.11 kg Katia Saunders PERSONAL COMPUTER NETWORK ENGINEER [facility] Work Phone: 09-26-2006 10:04-0500 [...] 10:04-0500 Head Circumference 0 cm Lakisha Spears [facility] Work Phone: 09-26-2006 10:04-0500 Head Occipital-frontal circumference 0 cm Katia Saunders LPN [facility]; [facility] Work Phone: 09-26-2006 10:04-0500 Height 167.64 cm Katia Sanuders LPN [facility] Work Phone: 09-26-2006 10:04-0500 Pulse (Heart Rate) 58 /min Katia Saunders LPN [facility] Work Phone: Comment on above: Pattern: Regular 09-26-2006 10:04-0500 Respiratory Rate 15 /min Katia Saunders LPN [facility] Work Phone: Comment on above: Pattern: Unlabored 09-26-2006 10:04-0500 Weight 88.11 kg Lakisha Spears [facility] Work Phone: Encounters Encounter Date Encounter Type Care Provider Facility Start: 07-16-2025 ambulatory [facility] Facility :[facility] Start: 06-27-2025 End: 06-27-2025 Patient encounter procedure Abdias MAYEN -[facility] Work Phone: Start: 06-27-2025 End: 06-27-2025 ambulatory Dian BRITTON Work Phone: -[facility] Start: 02-14-2025 End: 02-14-[address] Bro Deleon MD -[facility] Work Phone: Start: 02-14-2025 End: 02-14-2025 ambulatory Dian Duron SCREW DOWN-C Work Phone: [facility] Work Phone: Start: 02-05-2025 End: 02-05-2025 ambulatory Dian Duron SCREW DOWN-C Work Phone: [facility] Work Phone: Start: 02-05-2025 End: 02-05-[address] Bro Deleon MD -[facility] Work Phone: Start: 02-05-2025 End: 02-05-2025 ambulatory Dian Duron Facility:[facility] Start: 01-13-2025 End: 01-13-2025 Patient encounter procedure Abdias Ortiz [place] -[facility] Work Phone: Start: 01-13-2025 End: 01-13-2025 ambulatory Abdias Ortiz Facility:[facility] Start: 12-19-2024 End: 12-19-2024 ambulatory Dian Duron SCREW DOWN-C Work Phone: [facility] Work Phone: Start: 12-19-2024 End: 12-19-2024 Patient encounter procedure Dian Duron SCREW DOWN-C -Outpatient Bone Densitometry Work Phone: Start: 12-19-2024 End: 12-19-2024 ambulatory Dian Duron Facility:[facility] Start: 11-11-2024 End: 11-11-2024 ambulatory Dian Duron SCREW DOWN-C Work Phone: [facility] Work Phone: Start: 11-11-2024 End: 11-11-2024 Patient encounter procedure Dian Duron SCREW DOWN-C -Outpatient Breast Imaging Work Phone: Start: 11-11-2024 End: 11-11-2024 ambulatory Dian Duron Facility:[facility] Start: 08-06-2024 End: 08-06-[address] Bro Deleon MD -[facility] Work Phone: Start: 08-06-2024 End: 08-06-2024 ambulatory Diandayne Duron Facility:[facility] Start: 07-22-2024 End: 07-22-2024 ambulatory Dian Oliverio Facility:[facility] Start: 11-02-2023 End: 11-02-2023 Patient encounter procedure SCREW DOWN-Aquilino Duron Work Phone: [facility] Work Phone: Start: 10-31-2023 End: 10-31-2023 ambulatory SCREW DOWN-Aquilino Duron Work Phone: [facility] Work Phone: Start: 10-31-2023 End: 10-31-2023 Patient encounter procedure SCREW DOWN-Aquilino Duron Work Phone: [facility]-Outpatient Breast Imaging Work Phone: Start: 10-10-2023 End: 10-10-2023 Patient encounter procedure SCREW DOWN-Aquilino Duron Work Phone: [facility] Work Phone: Start: 10-03-2023 Non-patient / Non-visit No Mera Phan Physician [facility] Start: 10-03-2023 End: 10-03-2023 Admission to same day surgery center No Primary Care Physician [facility]-Account Development Executive/Special Procedures Work Phone: Start: 10-03-2023 End: 10-03-2023 ambulatory No Primary Care Physician [facility] Work Phone: Start: 09-27-2023 Non-patient / Non-visit No Mera Phan Physician [facility] Start: 09-26-2023 Non-patient / Non-visit No Mera Phan Physician [facility] Start: 09-26-2023 End: 09-26-2023 ambulatory No Primary Care Physician [facility] Work Phone: Start: 09-26-2023 End: 09-26-2023 Patient encounter procedure No Primary Care Physician [facility]-Cardiovascular Services Work Phone: Start: 09-05-2023 End: 09-05-2023 ambulatory No Primary Care Physician [facility] Work Phone: Start: 09-05-2023 End: 09-05-2023 Patient encounter procedure No Primary Care Physician [facility]-Pulmonary Services/Neurology Work Phone: Start: 08-30-2023 End: 08-30-2023 Patient encounter procedure No Primary Care Physician [facility] Work Phone: Start: 08-28-2023 End: 08-28-2023 ambulatory No Primary Care Physician [facility] Work Phone: Start: 08-28-2023 End: 08-28-2023 Patient encounter procedure No Primary Care Physician [facility]-Cat Scan, [facility] Work Phone: Start: 08-28-2023 End: 08-28-2023 ambulatory No Primary Care Physician [facility] Work Phone: Start: 08-28-2023 End: 08-28-2023 Patient encounter procedure No Primary Care Physician [facility]-Laboratory, Specimen Work Phone: Start: 06-24-2023 End: 06-24-2023 Emergency department patient visit No Primary Care Physician [facility]-Emergency Department Work Phone: Start: 06-23-2023 End: 06-23-2023 Dian Duron CNP Work Phone: [facility] Start: 06-23-2023 End: 06-23-2023 ambulatory No Primary Care Physician [facility] Work Phone: Start: 06-23-2023 End: 06-23-2023 Patient encounter procedure No Primary Care Physician [facility]-Laboratory, Specimen Work Phone: Start: 06-23-2023 End: [...] End: 10-19-2022 ambulatory No Primary Care Physician [facility] Work Phone: Start: 10-19-2022 End: 10-19-2022 Patient encounter procedure No Primary Care Physician [facility]-Outpatient Bone Densitometry Start: 09-19-2022 End: 09-19-2022 Patient encounter procedure No Primary Care Physician [facility] Start: 08-22-2022 ambulatory Dian Duron CNP [facility] Start: 08-22-2022 End: 08-22-2022 Office outpatient visit 15 minutes Dian Duron CNP Work Phone: [facility] Start: 08-22-2022 Dian Duron CNP Work Phone: [facility] Start: 03-21-2022 End: 03-21-2022 Admission to same day surgery center SCREW DOWN-C Lakisha Spears SCREW DOWN Work Phone: [facility]-Surgical Day Care Start: 02-09-2022 End: 02-09-2022 Discharged Recurring SCREW DOWN-C Lakisha Spears SCREW DOWN Work Phone: [facility]-Physical Therapy Start: 02-02-2022 End: 02-02-2022 Patient encounter procedure SCREW DOWN-Aquilino Spears SCREW DOWN Work Phone: [facility]-MRI - [facility] Start: 02-01-2022 Registered Recurring SCREW DOWN-C Lakisha Spears SCREW DOWN Work Phone: [facility]-Physical Therapy Start: 01-31-2022 End: 01-31-2022 Office outpatient visit 15 minutes Lakisha Spears Work Phone: [facility] Start: 01-31-2022 Lakisha Spears Work Phone: [facility] Start: 01-27-2022 End: 01-27-2022 Patient encounter procedure SCREW DOWN-C Lakisha Spears SCREW DOWN [facility] Start: 01-27-2022 End: 01-27-2022 Patient encounter procedure SCREW DOWN-C Lakisha Spears SCREW DOWN Work Phone: [facility] Neurology Start: 11-03-2021 End: 11-03-2021 Patient encounter procedure SCREW DOWN-C Lakisha Spears SCREW DOWN Work Phone: [facility] Start: 10-31-2021 End: 10-31-2021 Patient encounter procedure SCREW DOWN-C Lakisha Spears SCREW DOWN Work Phone: [facility] Start: 10-22-2021 End: 10-22-2021 Patient encounter procedure SCREW DOWN-C Lakisha Spears SCREW DOWN Work Phone: [facility]-Laboratory Start: 10-11-2021 End: 10-11-2021 Admission to same day surgery center SCREW DOWN-C Lakisha Spears SCREW DOWN Work Phone: [facility]-Account Development Executive/Special Procedures Start: 09-29-2021 End: 09-29-2021 Lakisha Spears MACHINE ASSEMBLER FOR PULLER OVER Work Phone: [facility] Start: 09-14-2021 End: 09-14-2021 Lakisha Spears MACHINE ASSEMBLER FOR [employer]ER OVER Work Phone: [facility] Start: 08-25-2021 End: 08-25-2021 Office outpatient visit 25 minutes Lakisha Spears MACHINE ASSEMBLER FOR [employer] OVER Work Phone: [facility] Start: 08-11-2021 End: 08-11-2021 Lakisha Spears MACHINE ASSEMBLER FOR PULLER OVER Work Phone: [facility] Start: 05-27-2021 End: 05-27-2021 Lakisha Spears MACHINE ASSEMBLER FOR [employer]ER OVER Work Phone: [facility] Start: 05-26-2021 End: 05-26-2021 Office outpatient visit 25 minutes Lakisha Spears MACHINE ASSEMBLER FOR [employer] OVER Work Phone: [facility] Start: 05-11-2021 End: 05-11-2021 Office outpatient visit 15 minutes Lakisha Spears MACHINE ASSEMBLER FOR [employer] OVER Work Phone: [facility] Start: 03-02-2021 End: 03-02-2021 Office outpatient visit 15 minutes Lakisha Spears MACHINE ASSEMBLER FOR [employer] OVER Work Phone: [facility] Start: 12-23-2020 [...] End: 08-05-2020 Lab Order Lakisha Spears [facility] Start: 08-05-2020 End: 08-05-2020 Lakisha Spears MACHINE ASSEMBLER FOR [employer] OVER Work Phone: [facility] Start: 06-18-2020 End: 06-18-2020 Office outpatient visit 5 minutes Lakisha Changbernadine [facility] Start: 05-13-2020 End: 05-13-2020 Lab Order Lakisha Spears [facility] Start: 05-13-2020 End: 05-13-2020 Lakisha Spears MACHINE ASSEMBLER FOR [employer] OVER Work Phone: [facility] Start: 04-02-2020 End: 04-02-2020 Office outpatient visit 10 minutes Lakisha Charlenebernadine [facility] Start: 03-31-2020 End: 03-31-2020 Annotation/Addendum Lakisha Charlenebernadine [facility] Start: 03-31-2020 End: 03-31-2020 Lakisha Spears MACHINE ASSEMBLER FOR [employer]ER OVER Work Phone: [facility] Start: 02-12-2020 End: 02-12-2020 Office outpatient visit 25 minutes Lakisha Spears [facility] Start: 02-04-2020 End: 02-04-2020 Lab Order Lakisha Spears [facility] Start: 02-04-2020 End: 02-04-2020 Lakisha Spears MACHINE ASSEMBLER FOR P[employer]ER OVER Work Phone: [facility] Start: 11-05-2019 End: 11-05-2019 Office outpatient visit 5 minutes Lakisha Spears [facility] Start: 09-16-2019 End: 09-16-2019 Annotation/Addendum Lakisha Spears [facility] Start: 09-16-2019 End: 09-16-2019 Lakisha Spears MACHINE ASSEMBLER FOR [employer] OVER Work Phone: [facility] Start: 07-01-2019 [...] End: 07-25-2018 Lab Order Lakisha Spears [facility] Start: 07-25-2018 End: 07-25-2018 Lakisha Spears MACHINE ASSEMBLER FOR [employer] OVER Work Phone: [facility] Start: 04-13-2018 End: 04-13-2018 Office outpatient visit 15 minutes Lakisha Changbernadine [facility] Start: 12-18-2017 End: 12-18-2017 Annotation/Addendum Lakisha Spears [facility] Start: 12-18-2017 End: 12-18-2017 Lakisha Spears MACHINE ASSEMBLER FOR [employer] OVER Work Phone: [facility] Start: 12-07-2017 End: 12-07-2017 Office outpatient visit 10 minutes Lakisha Charlenebernadine [facility] Start: 09-13-2017 End: 09-13-2017 Annotation/Addendum Lakisha Spears [facility] Start: 09-13-2017 End: 09-13-2017 Lakisha Spears MACHINE ASSEMBLER FOR [employer] OVER Work Phone: [facility] Start: 07-25-2017 End: 07-25-2017 Lab Order Lakisha Spears [facility] Start: 07-25-2017 End: 07-25-2017 Lakisha Spears MACHINE ASSEMBLER FOR [employer] OVER Work Phone: [facility] Start: 07-25-2017 End: 07-25-2017 Office outpatient visit 25 minutes Lakisha Spears [facility] Start: 07-17-2017 End: 07-17-2017 Lab Order Lakisha Spears [facility] Start: 07-17-2017 End: 07-17-2017 Lakisha Spears MACHINE ASSEMBLER FOR P[employer]ER OVER Work Phone: [facility] Start: 09-16-2016 End: 09-16-2016 Annotation/Addendum Lakisha Spears [facility] Start: 09-16-2016 End: 09-16-2016 Lakisha Spears MACHINE ASSEMBLER FOR [employer] OVER Work Phone: [facility] Start: 09-13-2016 End: 09-13-2016 Office outpatient visit 15 minutes Lakisha Spears [facility] Start: 06-27-2016 End: 06-27-2016 Office outpatient visit 15 minutes Lakisha Spears [facility] Start: 06-27-2016 End: 06-27-2016 Annotation/Addendum Lakisha Spears [facility] Start: 06-27-2016 End: 06-27-2016 Lakisha Spears MACHINE ASSEMBLER FOR P[employer]ER OVER Work Phone: [facility] Start: 06-14-2016 [...] End: 11-05-2015 Patient encounter Lakisha Spears [facility] Start: 11-05-2015 End: 11-05-2015 Lakisha Spears MACHINE ASSEMBLER FOR P[employer]ER OVER Work Phone: [facility] Start: 10-26-2015 End: 10-26-2015 Office outpatient visit 25 minutes Lakisha Spears [facility] Start: 07-13-2015 End: 07-13-2015 Lab Order Lakisha Spears [facility] Start: 07-13-2015 End: 07-13-2015 Lakisha Spears MACHINE ASSEMBLER FOR [employer] OVER Work Phone: [facility] Start: 09-01-2014 End: 09-01-2014 Office outpatient visit 25 minutes Lakisha Spears [facility] Start: 06-12-2014 End: 06-12-2014 Phone Encounter Lakisha Spears [facility] Start: 06-12-2014 End: 06-12-2014 Lakisha Spears MACHINE ASSEMBLER FOR [employer] OVER Work Phone: [facility] Start: 01-07-2014 End: 01-07-2014 Patient encounter Lakisha Spears [facility] Start: 01-07-2014 End: 01-07-2014 Lakisha Spears MACHINE ASSEMBLER FOR [employer] OVER Work Phone: [facility] Start: 08-30-2013 End: 08-30-2013 Lab Order Lakisha Spears [facility] Start: 08-30-2013 End: 08-30-2013 Lakisha Spears MACHINE ASSEMBLER FOR P[employer]ER OVER Work Phone: [facility] Start: 08-29-2013 End: 08-29-2013 Patient encounter Lakisha Spears [facility] Start: 08-29-2013 End: 08-29-2013 Lakisha Spears MACHINE ASSEMBLER FOR P[employer]ER OVER Work Phone: [facility] Start: 08-23-2013 End: 08-23-2013 Office outpatient visit 15 minutes Lakisha Spears [facility] Start: 07-16-2013 End: 07-16-2013 Lab Order Lakisha Spears [facility] Start: 07-16-2013 End: 07-16-2013 Lakisha Spears MACHINE ASSEMBLER FOR P[employer] OVER Work Phone: [facility] Start: 07-15-2013 End: 07-15-2013 Phone Encounter Laiksha Spears [facility] Start: 07-15-2013 End: 07-15-2013 Lakisha Spears MACHINE ASSEMBLER FOR P[employer]ER OVER Work Phone: [facility] Start: 07-04-2013 End: 07-04-2013 Phone Encounter Lakisha Spears [facility] Start: 07-04-2013 End: 07-04-2013 Lakisha Spears MACHINE ASSEMBLER FOR [employer] OVER Work Phone: [facility] Start: 06-24-2013 End: 06-24-2013 Patient encounter Lakisha Spears [facility] Start: 06-24-2013 End: 06-24-2013 Lakisha Spears MACHINE ASSEMBLER FOR [employer] OVER Work Phone: [facility] Start: 06-13-2013 End: 06-13-2013 Lab Order Lakisha Spears [facility] Start: 06-13-2013 End: 06-13-2013 Lakisha Spears MACHINE ASSEMBLER FOR [employer] OVER Work Phone: [facility] Start: 03-18-2013 End: 03-18-2013 Phone Encounter Lakisha Spears [facility] Start: 03-18-2013 End: 03-18-2013 Lakisha Spears MACHINE ASSEMBLER FOR P[employer]ER OVER Work Phone: [facility] Start: 10-26-2012 End: 10-26-2012 Patient encounter Lakisha Spears [facility] Start: 10-26-2012 End: 10-26-2012 Lakisha Spears MACHINE ASSEMBLER FOR P[employer] OVER Work Phone: [facility] Start: 09-21-2012 End: 09-23-2012 Patient encounter Lakisha Spears [facility] Start: 09-21-2012 End: 09-23-2012 Lakisha Spears MACHINE ASSEMBLER FOR [employer] OVER Work Phone: [facility] Start: 06-04-2012 End: 06-04-2012 Lab Order Lakisha Spears [facility] Start: 06-04-2012 End: 06-04-2012 Routine gynecological examination Lakisha Spears Work Phone: [facility] Start: 06-04-2012 End: 06-04-2012 Lakisha Spears MACHINE ASSEMBLER FOR P[employer] OVER Work Phone: [facility] Start: 05-07-2012 End: 05-07-2012 Patient encounter Lakisha Spears [facility] Start: 05-07-2012 End: 05-07-2012 Lakisha Spears MACHINE ASSEMBLER FOR P[employer]ER OVER Work Phone: [facility] Start: 05-03-2012 End: 05-03-2012 Patient encounter Lakisha Spears [facility] Start: 05-03-2012 End: 05-03-2012 Lakisha Spears MACHINE ASSEMBLER FOR P[employer]ER OVER Work Phone: [facility] Start: 04-17-2012 End: 04-17-2012 Phone Encounter Lakisha Spears [facility] Start: 04-17-2012 End: 04-17-2012 Lakisha Spears MACHINE ASSEMBLER FOR P[employer]ER OVER Work Phone: [facility] Start: 04-16-2012 End: 04-16-2012 Patient encounter Lakisha Spears [facility] Start: 04-16-2012 End: 04-16-2012 Lakisha Spears MACHINE ASSEMBLER FOR P[employer]ER OVER Work Phone: [facility] Start: 03-26-2012 End: 03-26-2012 Patient encounter Lakisha Spears [facility] Start: 03-26-2012 End: 03-26-2012 Lakisha Spears MACHINE ASSEMBLER FOR P[employer]ER OVER Work Phone: [facility] Start: 03-15-2012 End: 03-15-2012 Patient encounter Lakisha Spears [facility] Start: 03-15-2012 End: 03-15-2012 Lakisha Spears MACHINE ASSEMBLER FOR P[employer]ER OVER Work Phone: [facility] Start: 12-22-2011 End: 12-22-2011 Patient encounter Lakisha Spears [facility] Start: 12-22-2011 End: 12-22-2011 Lakisha Spears MACHINE ASSEMBLER FOR P[employer]ER OVER Work Phone: [facility] Start: 08-19-2011 End: 08-22-2011 Patient encounter Lakisha Spears [facility] Start: 08-19-2011 End: 08-22-2011 Lakisha Spears MACHINE ASSEMBLER FOR P[employer]ER OVER Work Phone: [facility] Start: 08-15-2011 End: 08-15-2011 Phone Encounter Lakisha Spears [facility] Start: 08-15-2011 End: 08-15-2011 Lakisha Spears MACHINE ASSEMBLER FOR P[employer]ER OVER Work Phone: [facility] Start: 08-12-2011 End: 08-15-2011 Patient encounter Lakisha Spears [facility] Start: 08-12-2011 End: 08-15-2011 Lakisha Spears MACHINE ASSEMBLER FOR P[employer]ER OVER Work Phone: [facility] Start: 07-29-2011 End: 07-29-2011 Patient encounter Lakisha Spears [facility] Start: 07-29-2011 End: 07-29-2011 Lakisha Spears MACHINE ASSEMBLER FOR P[employer]ER OVER Work Phone: [facility] Start: 06-30-2011 End: 06-30-2011 Patient encounter Lakisha Spears [facility] Start: 06-30-2011 End: 06-30-2011 Lakisha Spears MACHINE ASSEMBLER FOR P[employer]ER OVER Work Phone: [facility] Start: 06-09-2011 End: 06-09-2011 Phone Encounter Lakisha Spears [facility] Start: 06-09-2011 End: 06-09-2011 Lakisha Spears MACHINE ASSEMBLER FOR [employer]ER OVER Work Phone: [facility] Start: 11-08-2010 End: 11-08-2010 Office outpatient visit 25 minutes Lakisha Spears [facility] Start: 10-27-2010 End: 10-27-2010 Office outpatient visit 25 minutes Lakisha Spears [facility] Start: 10-25-2010 End: 10-25-2010 Office outpatient visit 25 minutes Lakisha Spears [facility] Start: 09-06-2010 End: 09-06-2010 Patient encounter Lakisha Spears [facility] Start: 09-06-2010 End: 09-06-2010 Lakisha Spears MACHINE ASSEMBLER FOR [employer] Work Phone: [facility] Start: 08-31-2010 End: 08-31-2010 Patient encounter Lakisha Spears [facility] Start: 08-31-2010 End: 08-31-2010 Lakisha Spears MACHINE ASSEMBLER FOR [employer]ER OVER Work Phone: [facility] Start: 08-27-2010 End: 08-27-2010 Patient encounter Lakisha Spears [facility] Start: 08-27-2010 End: 08-27-2010 Lakisha Spears MACHINE ASSEMBLER FOR P[employer]ER OVER Work Phone: [facility] Start: 08-16-2010 End: 08-16-2010 Phone Encounter Lakisha Spears [facility] Start: 08-16-2010 End: 08-16-2010 Lakisha Spears MACHINE ASSEMBLER FOR PULLER OVER Work Phone: [facility] Start: 03-05-2010 End: 03-05-2010 Patient encounter Lakisha Spears [facility] Start: 03-05-2010 End: 03-05-2010 Lakisha Spears MACHINE ASSEMBLER FOR PULLER OVER Work Phone: [facility] Start: 04-28-2009 End: 04-28-2009 Patient encounter Lakisha Spears [facility] Start: 04-28-2009 End: 04-28-2009 Lakisha Spears MACHINE ASSEMBLER FOR [employer] Work Phone: [facility] Start: 04-13-2009 End: 04-13-2009 Phone Encounter Lakisha Spears [facility] Start: 04-13-2009 End: 04-13-2009 Lakisha Spears MACHINE ASSEMBLER FOR [employer] Work Phone: [facility] Start: 03-18-2009 End: 03-18-2009 Historical Summary Lakisha Spears [facility] Start: 03-18-2009 End: 03-18-2009 Lakisha Spears MACHINE ASSEMBLER FOR [employer] Work Phone: [facility] Start: 11-19-2008 End: 11-19-2008 Historical Summary Lakisha Spears [facility] Start: 11-19-2008 End: 11-19-2008 Lakisha Spears MACHINE ASSEMBLER FOR [employer] Work Phone: [facility] Start: 11-04-2008 End: 11-04-2008 Patient encounter Lakisha Spears [facility] Start: 11-04-2008 End: 11-04-2008 Lakisha Spears MACHINE ASSEMBLER FOR [employer] Work Phone: [facility] Start: 10-24-2008 End: 10-24-2008 Patient encounter Lakisha Spears [facility] Start: 10-24-2008 End: 10-24-2008 Lakisha Spears MACHINE ASSEMBLER FOR [employer] Work Phone: [facility] Start: 08-10-2007 End: 08-10-2007 Patient encounter Lakisha Spears [facility] Start: 08-10-2007 End: 08-10-2007 Lakisha Spears MACHINE ASSEMBLER FOR [employer] OVER Work Phone: [facility] Start: 09-26-2006 End: 09-28-2006 Patient encounter Lakisha Spears [facility] Start: 09-26-2006 End: 09-28-2006 Lakisha Spears MACHINE ASSEMBLER FOR [employer] Work Phone: [facility] Start: 06-27-2006 End: 06-27-2006 Patient encounter Lakisha Spears [facility] Start: 06-27-2006 End: 06-27-2006 Lakisha Spears MACHINE ASSEMBLER FOR [employer] Work Phone: [facility] Start: 06-26-2006 End: 06-26-2006 Historical Summary Lakisha Spears [facility] Start: 06-26-2006 End: 06-26-2006 Lakisha Spears MACHINE ASSEMBLER FOR [employer] OVER Work Phone: [facility] Patient encounter procedure Preston Kang PERSONAL COMPUTER NETWORK ENGINEER [facility]; [facility] Work Phone: Patient encounter procedure Olga Uriah PERSONAL COMPUTER NETWORK ENGINEER [facility]; [facility] Work Phone: Patient encounter procedure Preston Kang PERSONAL COMPUTER NETWORK ENGINEER [facility]; [facility] Work Phone: Patient encounter procedure Meena Su [facility]; [facility] Work Phone: Patient encounter procedure Krista Castillo PERSONAL COMPUTER NETWORK ENGINEER [facility]; [facility] Work Phone: Patient encounter procedure Krista Slarb PERSONAL COMPUTER NETWORK ENGINEER [facility]; [facility] Work Phone: End: 06-24-2013 Routine gynecological examination MOIRA Crowell [facility] Work Phone: Procedures Date Procedure Procedure Detail Performing Clinician Start: 02-05-2025 US scan of thyroid Dian Duron SCREW DOWN-C Work Phone: Start: 12-19-2024 Dual energy X-ray absorptiometry Dian Duron NP-C Work Phone: Start: 11-11-2024 Screening mammography Dian Duron SCREW DOWN-C Work Phone: Start: 10-31-2023 Screening mammography SCREW DOWN-C Dian Duron Work Phone: Start: 08-28-2023 CT angiography of chest with contrast No Primary Care Physician Start: 08-28-2023 Plain chest X-ray No Primary Care Physician Start: 06-24-2023 Computed tomography of abdomen and pelvis with intravenous contrast No Primary Care Physician Start: 06-23-2023 Diagnostic radiography of abdomen No Primary Care Physician Start: 06-23-2023 End: 06-23-2023 Procedure Note: See Note; NOTES: [facility] Radiology [address] [place] [address] Acute Abdomen Inc Chest MR#: [id number] Acct: [id number] Name: KAMRYN MUÑOZ Rep #: [id number] : 1945 F 77 From: Garcia Velarde MD PCP: Care Physician,No Primary Status: DEP AMB Study: Acute Abdomen Inc Chest Date of Exam: 06/23/23 Exam# [id number] Ordering Dr: Dian Duron :[id number] STUDY: X-RAY - ACUTE ABDOMINAL SERIES REASON [...] Chest IMPRESSION: No obstruction. Electronically Signed: Garcia Velarde MD at 10:19 EDT , CC: REBA Duron; No Primary Care Physician Tube Heater: Signed Dian Duron CNP Work Phone: Start: 10-19-2022 Dual energy X-ray absorptiometry No Primary Care Physician Start: 10-19-2022 End: 10-19-2022 Procedure Note: See Note; NOTES: [facility] Imaging Services [address] [place] [address] Dexa Bone Density Study MR#: [id number] Acct: [id number] Name: KAMRYN MUÑOZ Rep #: [id number] : 1945 F 76 From: Wayne blevins MD PCP: Care Physician,No Primary Status: REG CLI Study: Dexa Bone Density Study Date of Exam: 10/19/22 Exam# [id number] Ordering Dr: Dian Duron SCREW DOWN- C STUDY: DUAL ENERGY X-RAY ABSORPTIOMETRY / [...] 15:23 EST Reading Location ID and State: [facility] / [place] , Service support , CC: Dian Duron SCREW DOWN; No Primary Care Physician Tube Heater: Signed Dian Duron CNP Work Phone: Start: 10-19-2022 Screening mammography No Primary Care Physician Start: 10-19-2022 End: 10-19-2022 Procedure Note: See Note; NOTES: [facility] Imaging Services [address] [place] [address] SCRN MAMM (CAD)W/TYLOR BILAT MR#: [id number] Acct: [id number] Name: KAMRYN MUÑOZ Rep #: [id number] : 1945 F 76 From: Wayne blevins MD PCP: Care Physician,No Primary Status: REG CLI Study: SCRN MAMM (CAD)W/TYLOR BILAT Date of Exam: 05/03 Exam# [id number] Ordering Dr: Dian Duron SCREW DOWN- C MAMMOGRAPHY - BILATERAL SCREENING REASON FOR [...] delay biopsy of a clinically suspicious abnormality. [id number] Electronically Signed: Wayne Rabago MD at 11:05 EST Reading Location ID and State: [address] [place] [address] , Service support , CC: Dian Duron SCREW DOWN; No Primary Care Physician Tube Heater: Signed Dian Duron MACHINE ASSEMBLER FOR P[employer]ER OVER Work Phone: Start: 06-09-2022 End: 06-09-2022 Procedure Note: See Note; NOTES: [address], [address] [place] [address] OFFICE VISIT Date of Service: 06/09/22 MR#: [id number] Acct: [id number] Name: KAMRYN MUÑOZ Rep #: [id number] : 1945 Provider: Dr. Uzair mcgraw MD Age/Sex: 76/F Location: [facility] Status: Signed Intake Vital Signs 01/27/22 10:48 [...] Reasons: 4 M FU Chief Complaint: Headaches Link Trainer Operator Required: No Accompanied by: Self Is patient [...] has been evaluated by a dentist and jewel setter and no oral or tooth pathology to [...] Phone: Start: 03-21-2022 Hysteroscopy,D&C Symphion (Not Applicable) SCREW DOWN-C Lakisha Spears SCREW DOWN Work Phone: Start: 02-09-2022 End: 02-09-2022 Comments: See Note; NOTES: [facility] [address] [place] [address]. [address] [place] [address] / REHABILITATION SERVICES DISCHARGE SUMMARY MR#: [id number] Acct: [id number] Name: KAMRYN MUÑOZ Rep #: [id number] : 1945 76 From: Krista BEY Referring Dr.: Dr. Larissa Griffiths DO Status: REG RCR Insurance: [facility] SEE NOTE SELF PAY INSURANCE It has [...] please feel free to call me at [phone]. Thank you for the referral of this patient. Sincerely, MAIDA Hopkins Balance/Gait/Functional tests - Balance/Special Test Scores Functional Gait Assessment Score: 28 % Disability: 6.6700 CATSIB Score (Max score 120 seconds): 100 Dizziness Score: n <Electronically signed by Krista Ruiz MPT> 02/09/221901 CC: Dr. Larissa Griffiths DO Signed Lakisha Spears Work Phone: Start: 02-02-2022 MRI of brain with contrast SCREW DOWN-C Lakisha Spears SCREW DOWN Work Phone: Start: 02-02-2022 End: 02-02-2022 Comments: See Note; NOTES: [facility] Imaging Services [address] [place] [address] Brain W/WO Contrast MR#: [id number] Acct: [id number] Name: KAMRYN MUÑOZ Rep #: [id number] : 1945 F 76 From: Matt betancourt MD PCP: Dr. Larissa Griffiths DO Status: REG CLI Study: Brain W/WO Contrast Date of Exam: 02/02/22 Exam# [id number] Ordering Dr: Uzair Palacio MD STUDY: MRI [...] 13:30 EDT Reading Location ID and State: [facility] / [place] , Service support , CC: Dr. Larissa Griffiths DO; Dr. Uzair Palacio MD Tube Heater: Signed Lakisha Spears Work Phone: Start: 02-01-2022 End: 02-01-2022 Comments: See Note; NOTES: [facility] [address] [place] [address] / REHABILITATION SERVICES INITIAL EVALUATION MR#: [id number] Acct: [id number] Name: KAMRYN MUÑOZ Rep #: [id number] : 1945 76 From: Krista BEY Referring Dr.: Dr. Larissa Griffiths DO Status: REG RCR [facility]: [facility] SEE [facility] SELF PAY INSURANCE Patient's Visit [...] the L side to L eye to adventism and head and start gradual and go [...] to be FAXED BACK to us at [phone] for Medicare purposes. For Medicare only, by signing this I certify the plan of care. Please let me know if there are questions or concerns regarding this plan of care. Physician Signature: ___Date: <Electronically signed by Krista Ruiz MPT> 02/01/22 1491 CC: Dr. Larissa Griffiths DO Signed Lakisha Spears Work Phone: Start: 01-27-2022 End: 01-27-2022 Comments: See Note; NOTES: [facility] [address] [place] [address] OFFICE VISIT Date of Service: 01/27/22 MR#: [id number] Acct: [id number] Name: KAMRYN MUÑOZ Rep #: [id number] : 1945 Provider: Dr. Uzair mcgraw MD Age/Sex: 76/F Location: [facility] Status: Signed Intake Vital Signs 01/27/22 10:48 [...] room air Intake Visit Reasons: FACE PAIN/HEAD Link Trainer Operator Required: No Accompanied by: self Is patient [...] has been evaluated by a dentist and jewel setter and no oral or tooth pathology to [...] Uzair Singh Signature: Date (if applicable) CC: SCREW DOWNAshok Lakisha Spears Work Phone: Start: 11-03-2021 End: 11-03-2021 Comments: See Note; NOTES: [facility] [address] [place], [place] [address] OFFICE VISIT Date of Service: 11/03/21 MR#: [id number] Acct: [id number] Name: KAMRYN MUÑOZ Rep #: [id number] : 1945 Provider: TIARRA Beltran Age/Sex: 76/F Location: [facility] Status: Signed HPI HPI History of [...] 98 Intake Visit Reasons: 6 wk FU Link Trainer Operator Required: No Accompanied by: None Is patient in pain?: No Allergies atorvastatin [From Lipitor] Allergy (Verified 11/03/21 08:29) Unknown ezetimibe [From Zetia] Allergy (Verified 11/03/21 08:29) Unknown Penicillins Allergy (Verified 11/03/21 08:29) Unknown pravastatin [From Pravachol] Allergy (Verified 11/03/21 08:29) Unknown simvastatin [From Zocor] Allergy (Verified 11/03/21 08:29) Unknown Medications calcium citrate-vitamin D3 1 ea PO DAILY 10/05/16 [History Confirmed 11/03/21] ocpmkapk-rmr-FP-lycopen-lute in 1 ea PO DAILY 10/05/16 [History [...] multiple views using a 5 Fr. 4.0 [place] catheter. Right Coronary Artery selective angiography was then performed in multiple views using a 5 Fr. 4.0 [place] catheter. Left Ventriculography was performed in [place] [...] 90 tabs 3RF Follow Up: 9 Months (LAP WINDING MACHINE OPERATOR/MMM) Coding Level of Care Code Off vis,est,level 3 Diagnoses Paroxysmal atrial fibrillation I48.0 Essential hypertension I10 Premature ventricular contractions I49.3 Coding Level of Care Code Off vis,est,level 3 Diagnoses Paroxysmal atrial fibrillation I48.0 Essential hypertension I10 Premature ventricular contractions I49.3 11/03/21 0912 <Electronically signed by Cassandra Ewing> Date Cassandra MAYEN Cosigner Signature: Date (if applicable) CC: SCREW DOWN-Aquilino Lakisha Spears Work Phone: Start: 10-31-2021 End: 10-31-2021 Comments: See Note; NOTES: [facility] [address] [place], [place] [address] OFFICE VISIT Date of Service: 10/31/21 MR#: [id number] Acct: [id number] Name: BAOOsielKAMRYN MANUELA Rep #: [id number] : 1945 Provider: TIARRA serrano Age/Sex: 76/F Location: [facility] Status: Signed Intake Vital Signs 10/31/21 10:23 [...] [From Zocor] Allergy (Verified 09/21/21 08:58) Unknown [facility] Medical History (Updated 10/22/21 @ 15:52 [...] alert, oriented x3 and oriented to person [facility] Head: normal to inspection, normocephalic and [...] verbalizes understanding and agreement with plan. 10/31/21 1141 <Electronically signed by Renetta MAYEN> Date Renetta MAYEN Cosigner Signature: Date (if applicable) CC: Lakisha Spears Work Phone: Start: 10-11-2021 End: 10-11-2021 Comments: See Note; NOTES: [facility] Imaging Services [address] [place] [address] Cardiac Cath Diagnostic MR#: [id number] Acct: [id number] Name: KAMRYN MUÑOZ Rep #: [id number] : 1945 75 From: Kp Lopez MD PCP: REBA Vasquez Status:REG [facility] Patient Name: KAMRYN MUÑOZ Study Date: 10/11/2021 Performing: Kp Lopez MD Ht: 64.17 inches 163 cm : 1945 Wt: 224.87 lbs 102 kg Age: 75 Gender: female BSA: 2.06 PROCEDURE(S) PERFORMED DC01-(56845)LHC/COR/LV CLINICAL PROFILE AND INDICATIONS Indications: Suspected CAD [...] multiple views using a 5 Fr. 4.0 [place] catheter. Right Coronary Artery selective angiography was then performed in multiple views using a 5 Fr. 4.0 [place] catheter. Left Ventriculography was performed in [place] [...] Kp Singh Signature: Date (if indicated) CC: SCREW DOWN-C Lakisha Spears; Dr. Kp Lopez MD Date Dictated: 10/11/21939 Date Transcribed: 10/11/21956 Tube Heater: CO Signed Shelia Oleary MD Work Phone: Start: 09-30-2021 End: 09-30-2021 Comments: See Note; NOTES: [facility] [address] [place] [address] MR#: [id number] Acct: [id number] Name: KAMRYN MUÑOZ Rep #: [id number] : 1945 75 From: Kp Lopez MD Primary Care: Lakisha Ciesa, SCREW DOWN-C Status: REG CLI Referring Dr: Cassandra Franco [...] Lopez MD> Date Kp Lopez MD CC: SCREW DOWN-C Lakisha Spears; TIARRA Franco Date Dictated: 09/30/211312 Date Transcribed: 09/30/211312 Tube Heater: CO Signed Lakisha Spears MACHINE ASSEMBLER FOR PULLER OVER Work Phone: Start: 09-30-2021 End: 01-20-2022 Comments: See Note; NOTES: [facility] [address] [place] [address] Echo Complete W/ Contrast 09/30/21 0824 MR#: [id number] Acct: [id number] Name: KAMRYN MUÑOZ Rep #: [id number] : 1945 75 From: Kp Lopez MD Attending Dr: TIARRA Tucker Status: REG CLI Ordering Dr: Cassandra Franco Date: 09/12 Location: [facility] Sex: F C Admitted: Reason For Study: [...] 09/30/21 1021 Date Kp Lopez MD CC: SCREW DOWN-C Lakisha Spears; TIARRA Franco Date Dictated: 09/30/21 0824 Date Transcribed: 09/30/21 102 Tube Heater: Signed Lakisha Spears CNP Work Phone: Start: 09-29-2021 End: 09-29-2021 Comments: See Note; NOTES: [facility] Imaging Services [address] [place] [address] SCRN MAMM (CAD)W/TYLOR BILAT MR#: [id number] Acct: [id number] Name: KAMRYN MUÑOZ Rep #: [id number] : 1945 F 75 From: Wayne blevins MD PCP: REBA Vasquez Status: REG CLI Study: SCRN MAMM (CAD)W/TYLOR BILAT Date of Exam: 09/11 06/02 Exam# [id number] Ordering Dr: Lakisha Spears NP MAMMOGRAPHY - [...] delay biopsy of a clinically suspicious abnormality. [id number] Electronically Signed: Wayne Rabago MD at 12:11 EST , Service support , CC: REBA Spears Tube Heater: Signed Lakisha Spears MACHINE ASSEMBLER FOR PULLER OVER Work Phone: Start: 09-21-2021 End: 09-21-2021 Comments: See Note; NOTES: [facility] Imaging Services [address] [place] [address] Chest PA and Lateral MR#: [id number] Acct: [id number] Name: KAMRYN MUÑOZ Rep #: [id number] : 1945 F 75 From: Mono Sharif DO PCP: REBA Vasquez Status: REG CLI Study: Chest PA and Lateral Date of Exam: 09/21/21 Exam# [id number] Ordering Dr: Cassandra Franco PA PA STUDY: [...] Mono Sharif DO at 21:10 EST Tel [phone], Service support , CC: REBA Spears; TIARRA Franco Tube Heater: Signed Lakisha Spears CNP Work Phone: Start: 09-21-2021 End: 09-28-2021 Comments: See Note; NOTES: [facility] [address] [place] [address] 12 Lead EKG performed by [facility] 09/21/21922 MR#: [id number] Acct: [id number] Name: KAMRYN MUÑOZ Rep #: [id number] : 1945 75 From: Cassandra MAYEN Attending Dr: TIARRA Tucker Status: DEP AMB Ordering Dr: Cassandra Franco Date: 09/11 10/02 [place] [facility] Sex: F C Admitted: BMS/12 Lead EKG performed by [facility] ECG Report Interpretation Si nus Rhythm WITHIN NORMAL LIMITSElectronically signed on 09/28/2021 at 10:20 by Kp Lopez Software Version 8610 09/28/21 1022 Date Cassandra MAYEN CC: REBA Spears Date Dictated: 09/21/21922 Date Transcribed: 09/21/21922 Tube Heater: ALEJANDRO Signed Lakisha Spears CNP Work Phone: Start: 09-21-2021 End: 09-21-2021 Comments: See Note; NOTES: [facility] [address] [place] [address] OFFICE VISIT Date of Service: 09/21/21 MR#: [id number] Acct: [id number] Name: KAMRYN MUÑOZ Rep #: [id number] : 1945 Provider: TIARRA Beltran Age/Sex: 75/F Location: [facility] Status: Signed HPI HPI History of [...] 94 Intake Visit Reasons: Shortness of breath Link Trainer Operator Required: No Accompanied by: None Is patient [...] ea PO DAILY 10/05/16 [History Confirmed 09/21/21] oyjybsjc-urm-TF-lycopen-lute in 1 ea PO DAILY 10/05/16 [History [...] Orders: Orders: 12 Lead EKG performed by [facility] Today Basic Metabolic Profile (BMP) Today CBC [...] MAYEN Cosigner Signature: Date (if applicable) CC: SCREW DOWN-Aquilino Spears MACHINE ASSEMBLER FOR PULLER OVER Work Phone: Start: 07-01-2021 End: 07-07-2021 Comments: See Note; NOTES: [facility] Records Department [address] [place] [address] Operative Report 07/01/21 1325 MR#: [id number] Acct: [id number] Name: KAMRYN MUÑOZ Rep #: [id number] : 1945 75 From: Star Pandey MD PCP: REBA Vasquez Status:[facility] Location: [place] [address] Report of Operation Date of Procedure: 07/01/21 [...] Pandey MD> Cosigner Signature (if applicable): CC: SCREW DOWN-C Lakisha Spears; Dr. Star Pandey MD Signed Lakisha Spears MACHINE ASSEMBLER FOR PULLER OVER Work Phone: Start: 07-01-2021 End: 07-07-2021 Comments: See Note; NOTES: [facility] Records Department [address] [place] [address] Instructions for Home/Discharge Instructions 07/01/21 1317 MR#: [id number] Acct: [id number] Name: KAMRYN MUÑOZ Rep #: [id number] : 1945 75 From: Star Pandey MD PCP: REBA Vasquez Status:REG [facility] Discharge Instructions Diet Discharge Diet: No restrictions [...] tablet 1 ea PO DAILY RF: 0 ddnbtqkb-kno-JP-lycopen-lute in 1 EACH tablet 1 ea PO DAILY RF: 0 metoprolol succinate 50 MG tablet 50 mg PO DAILY Qty: 90 RF: 3 07/01/21 1319<Electronically signed by Star Pandey MD>Star Pandey MD CC: SCREW DOWN-C Lakisha Spears Signed Lakisha Spears MACHINE ASSEMBLER FOR PULLER OVER Work Phone: Start: 07-01-2021 End: 07-07-2021 Comments: See Note; NOTES: [facility] Records Department [address] [place] [address] H P Exam - COMMUNITY ORGANIZATION WORKER 07/01/21 1213 MR#: [id number] Acct: [id number] Name: KAMRYN MUÑOZ Rep #: [id number] : 1945 75 From: Star Pandey MD PCP: REBA Vasquez Status:REG [facility] Location: [place] [address] History and Physical Date of Admission: 07/01/21 [...] and C , Symphion Polypectomy with at [facility] on 07-01-21. denies new enrollment management coordinator concerns at this time. 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 Star Pandey MD Signed Lakisha Spears [facility] Work Phone: Start: 06-01-2021 End: 06-01-2021 Comments: See Note; NOTES: [facility] Imaging Services [address] [place] [address] Transvaginal Non- MR#: [id number] Acct: [id number] Name: KAMRYN MUÑOZ Rep #: [id number] : 1945 F 75 From: Viral Nielson MD PCP: REBA Vasquez Status: REG CLI Study: Transvaginal Non- Date of Exam: Exam# [id number] Ordering Dr: Lakisha Spears NP STUDY: ULTRASOUND [...] , Service support , CC: REBA Spears Tube Heater: Signed Lakisha Spears CNP Work Phone: Start: 03-02-2021 End: 03-02-2021 Comments: See Note; NOTES: [facility] [address] [place] [address] Venous Duplex US, Unilateral 03/02/21 1102 MR#: [id number] Acct: [id number] Name: KAMRYN MUÑOZ Rep #: [id number] : 1945 75 From: Jc Otero MD Attending Dr: REBA Vasquez Status: REG CLI Ordering Dr: Lakisha Spears NP SCREW DOWN-C Date: 03/02/21 Location: [facility] Sex: F C [...] to Lakisha Spears @ 11:10 am @ [phone]. VL/Venous Duplex US, Unilateral Interpretation Summary Deep [...] RVT 03/02/212054 Date Jc Otero MD CC: SCREW DOWN-C Lakisha Spears Date Dictated: 03/02/21 1102 Date Transcribed: 03/02/212054 Tube Heater: Signed Lakisha Spears [facility] Work Phone: Start: 09-28-2020 End: 09-28-2020 SCRN MAMM (CAD)W/TYLOR BILAT Comments: See Note; NOTES: [facility] Imaging Services [address] [place] [address] SCRN MAMM (CAD)W/TYLOR BILAT MR#: [id number] Acct: [id number] Name: KAMRYN MUÑOZ Rep #: [id number] : 1945 F 74 From: Wayne blevins MD PCP: REBA Vasquez Status: REG CLI Study: SCRN MAMM (CAD)W/TYLOR BILAT Date of Exam: 09/11 05/01 Exam# [id number] Ordering Dr: Lakisha Spears NP SCREW DOWN-C MAMMOGRAPHY - BILATERAL SCREENING REASON FOR EXAM: [...] delay biopsy of a clinically suspicious abnormality. [id number] Electronically Signed: Wayne Rabago MD at 12:24 EST , Service support , CC: REBA Spears Tube Heater: Signed Lakisha Spears Work Phone: Start: 09-27-2019 End: 09-27-2019 SCREEN MAMM (CAD) W/TYLOR BILAT Comments: See Note; NOTES: [facility] Imaging Services [address] [place] [address] SCREEN MAMM (CAD) W/TYLOR BILAT MR#: [id number] Acct: [id number] Name: KAMRYN MUÑOZ Rep #: [id number] : 1945 F 73 From: Wayne Rabago MD PCP: REBA Vasquez Status: [facility] Study: SCREEN MAMM (CAD) W/TYLOR BILAT Date of Exam: 09/27/19 Exam# [id number] Ordering Dr: Lakisha Spears MAMMOGRAPHY - BILATERAL [...] delay biopsy of a clinically suspicious abnormality. [id number] Electronically Signed: Wayne Rabago, at 12:42 EST , Service support , CC: REBA Spears Tube Heater: Signed Lakisha Spears Work Phone: Start: 10-04-2018 End: 10-04-2018 Cardiology Visit Report Comments: See Note; NOTES: [facility] [facility] 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) Coding Level of Care Code Off vis,est,level [...] MAMM (CAD), BILAT Comments: See Note; NOTES: [facility] Imaging Services [address] [place] [address] SCREENING MAMM (CAD), BILAT MR#: [id number] Acct: [id number] Name: KAMRYN MUÑOZ Rep #: [id number] : 1945 F 72 From: Wayne Rabago MD PCP: Lakisha Spears NP Status: REG CLI Study: SCREENING MAMM (CAD), BILAT Date of Exam: 09/26/18 Exam# [id number] Ordering Dr: Lakisha Spears SCREW DOWN-C MAMMOGRAPHY - BILATERAL SCREENING REASON FOR EXAM: [...] delay biopsy of a clinically suspicious abnormality. [id number] Electronically Signed: Wayne Rabago MD at 11:40 EST Tel [phone], Service support , CC: Lakisha Spears NP Tube Heater: Signed Lakisha Spears Work Phone: Start: 09-30-2017 End: 09-30-2017 Cardiology Visit Report Comments: See Note; NOTES: [facility] [address] [place] [address] Sarah. [address] [place] [address] OFFICE VISIT Date of Service: 09/28/17 MR#: [id number] Acct: [id number] Name: KAMRYN MUÑOZ Rep #: [id number] : 1945 Provider: DIETER Mahan Age/Sex: 71/F Location: [facility] Status: Signed HPI 1 Y FU: [...] brachial Intake Visit Reasons: 1 Y FU Link Trainer Operator Required: No Accompanied by: None Is patient [...] prior to saving. 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) Coding Level of Care Code Off vis,est,level [...] Density Study (HP) Comments: See Note; NOTES: [facility] Imaging Services [address] [place] [address] Dexa Bone Density Study (HP) MR#: [id number] Acct: [id number] Name: SUDEEPKAMRYN R Rep #: [id number] : 1945 F 71 From: Wayne Rabago MD PCP: Lakisha Spears NP Status: REG CLI Study: Dexa Bone Density Study (HP) Date of Exam: 09/13/17 Exam# [id number] Ordering Dr: Lakisha Spears STUDY: DUAL ENERGY [...] Wayne Rabago MD at 9:21 EST Tel [phone], Service support , CC: Lakisha Spears NP Tube Heater: Signed Priscilla Whit Work Phone: Start: 09-07-2017 End: 09-08-2017 SCREENING MAMM (CAD), BILAT Comments: See Note; NOTES: [facility] Imaging Services [address] [place] [address] SCREENING MAMM (CAD), BILAT MR#: [id number] Acct: [id number] Name: KAMRYN MUÑOZ Rep #: [id number] : 1945 F 71 From: Jimenez Harris MD PCP: Lakisha Spears NP Status: REG CLI Study: SCREENING MAMM (CAD), BILAT Date of Exam: 09/07/17 Exam# [id number] Ordering Dr: Lakisha Spears MAMMOGRAPHY - BILATERAL [...] delay biopsy of a clinically suspicious abnormality. [id number] Electronically Signed: Jimenez Harris MD at 8:01 EST , Service support , CC: Lakisha Spears NP Tube Heater: Signed Lakisha Spears Work Phone: Start: 10-06-2016 End: 10-07-2016 Left Heart Cath/COR/LV Percut Comments: See Note; NOTES: [facility] Imaging Services [address] [place] [address] Cardiac Catheterization Report MR#: [id number] Acct: [id number] Name: KAMRYN MUÑOZ Serafin Rep #: [id number] : 1945 70 From: Kp Lopez MD [...] radial area. Intra-arterial cocktail was administered. A 5-Ukrainian JL3.5 catheter was then advanced to the ascending aorta, flushed, and pressures recorded. Left coronary ostium was identified and engaged. Left coronary angiography performed in multiple views. Following this, the catheter was removed and a 5-Ukrainian JR5 catheter was inserted. The right coronary [...] noted in this vessel. A large septal photogrammetric tech was also noted. The left anterior descending [...] care. Kp Lopez MD T: NTS JOB: [id number] 10/07/16 1040 <Electronically signed by Kp Lopez MD> Date Kp Lopez MD Cosigner Signature (If Indicated): Date CC: Lakisha Lopez MD Date Dictated: 10/06/161702 Date Transcribed: 10/06/161702 Tube Heater: Signed Lakisha Spears Start: 10-04-2016 End: 10-04-2016 Chest PA and Lateral Comments: See Note; NOTES: [facility] Imaging Services [address] [place] [address] Verdana 4d Chest PA and Lateral MR#: [id number] Acct: [id number] Name: KAMRYN MUÑOZ Rep #: [id number] : 1945 F 70 From: Wayne Rabago MD PCP: Lakisha Spears Status: PRE CLI Study: Chest PA and Lateral Date of Exam: 10/04/16 Exam# [id number] Ordering Dr: Kp Lopez MD STUDY: X-RAY [...] Wayne Rabago MD at 14:21 EST Tel [phone], Service support [phone], CC: Lakisha Spears; Kp Lopez MD Tube Heater: Signed Lakisha Spears Start: 10-03-2016 End: 10-07-2016 Nuclear Stress Test - Chemical Comments: See Note; NOTES: [facility] Imaging Services [address] [place] [address] Godfrey 4d Nuclear Stress Test - Chemical MR#: [id number] Acct: [id number] Name: KAMRYN MUÑOZ Rep #: [id number] : 1945 70 From: Kp Lopez MD [...] fraction. Kp Lopez MD T: NTS JOB: [id number] 10/07/16 1039 <Electronically signed by Kp Lopez MD> Date Kp Lopez MD CC: Lakisha Riannajakob; Kp Lopez MD Date Dictated: 10/03/161633 Date Transcribed: 10/03/161633 Tube Heater: Signed Lakisha Spears Start: 09-06-2016 End: 09-07-2016 Bilat Scrn Digital AND CAD Comments: See Note; NOTES: [facility] Imaging Services [address] [place] [address] Verdana 4d Bilat Scrn Digital AND CAD MR#: [id number] Acct: [id number] Name: KAMRYN MUÑOZ Rep #: [id number] : 1945 F 70 From: Wayne Rabago MD PCP: Lakisha Spears Status: PRE CLI Study: Bilat Scrn Digital AND CAD Date of Exam: 09/06/16 Exam# [id number] Ordering Dr: Lakisha Spears MAMMOGRAPHY - BILATERAL [...] delay biopsy of a clinically suspicious abnormality. [id number] Electronically Signed: Wayne Rabago MD at 7:53 EST Tel [phone], Service support [phone], CC: Lakisha Spears Tube Heater: Signed Lakisha Spears Work Phone: Start: 12-18-2015 End: 12-18-2015 Abdomen/Pelvis without Cont Comments: See Note; NOTES: [facility] Imaging Services [address] [place] [address] Verdana 4d Abdomen/Pelvis without Cont MR#: [id number] Acct: [id number] Name: KAMRYN MUÑOZ Rep #: [id number] : 1945 F 70 From: Clifford Khan MD PCP: Lakisha Spears Status: REG CLI Study: Abdomen/Pelvis without Cont Date of Exam: 12/18/15 Exam# [id number] Ordering Dr: Lakisha Spears STUDY: CT ABDOMEN [...] MD at 20:40 EDT , Service support [phone], CC: Lakisha Spears Tube Heater: Signed Lakisha Spears Work Phone: Start: 07-17-2015 End: 07-17-2015 Bilat Scrn Digital AND CAD Comments: See Note; NOTES: [facility] Imaging Services [address] [place] [address] Verdana 4d Bilat Scrn Digital AND CAD MR#: [id number] Acct: [id number] Name: KAMRYN MUÑOZ Rep #: [id number] : 1945 F 69 From: Wayne Rabago MD PCP: Shelia Oleary MD Status: REG CL Study: Bilat Scrn Digital AND CAD Date of Exam: 07/17/15 Exam# [id number] Ordering Dr: Shelia Oleary MD MAMMOGRAPHY - [...] Wayne Rabago MD at 14:38 EST Tel [phone], Service support [phone], CC: Shelia Oleary MD Tube Heater: Signed Shelia Oleary Work Phone: Start: 07-14-2014 End: 07-14-2014 Bilat Scrn Digital & CAD Comments: See Note; NOTES: [facility] Imaging Services [address] [place] [address] Breast Imaging Report MR#: [id number] Acct: [id number] Name: KAMRYN MUÑOZ Rep #: [id number] : 1945 68 From: Wayne Rabago MD PCP: Shelia Oleary MD Status: REG CLI Exam# [id number] Ordering Dr: Shelia Oleary MD MAMMOGRAPHY - [...] Wayne Rabago MD at 15:42 EST Tel [phone], Service support [phone], CC: Shelia Oleary MD Tube Heater: Signed Shelia Oleary Work Phone: Start: 07-03-2013 End: 07-03-2013 Dexa Bone Density Study (HP) Comments: See Note; NOTES: [facility] Imaging Services [address] [place] [address] Bone Density Report MR#: [id number] Acct: [id number] Name: KAMRYN MUÑOZ Rep #: [id number] : 1945 F 67 From: Wayne Rabago MD PCP: Status: REG CLI Study: Dexa Bone Density Study () Date of Exam: 07/03/13 Exam# [id number] Ordering Dr: Shelia Oleary MD STUDY: DUAL [...] July 03, 2013 at 1:44:42 PM EDT [phone] Electronically Signed GP/GP If you are the referring physician and would like to consult with the radiologist who provided this interpretation, please contact Wyane Rabago M.D. at [phone]. If this radiologist is unavailable, you will be directed to another radiologist to assist. If you are a patient with a question regarding this report, please contact your referring physician directly. Professional Interpretation Provided By: [employer], Phone , These documents contain legally protected [...] of these documents. CC: Shelia Oleary MD Tube Heater: Signed Shelia Oleary Work Phone: Start: 06-21-2013 End: 06-21-2013 Bilat Scrn Digital & CAD Comments: See Note; NOTES: [facility] Imaging Services [address] [place] [address] Breast Imaging Report MR#: [id number] Acct: [id number] Name: KAMRYN MUÑOZ Rep #: [id number] : 1945 F 67 From: Wayne Rabago MD PCP: Status: REG CLI Exam# [id number] Ordering Dr: Shelia Oleary MD MAMMOGRAPHY - [...] June 21, 2013 at 3:16:59 PM EDT [phone] Electronically Signed GP/GP If you are the referring physician and would like to consult with the radiologist who provided this interpretation, please contact Wayne Rabago M.D. at [phone]. If this radiologist is unavailable, you will be directed to another radiologist to assist. If you are a patient with a question regarding this report, please contact your referring physician directly. Professional Interpretation Provided By: [employer], Phone , These documents contain legally protected [...] of these documents. CC: Shelia Oleary MD Tube Heater: Signed Shelia Oleary Work Phone: breast reduction [...] Cholecystectomy Preston Jorge Luis Cholecystectomy Olga Cross PERSONAL COMPUTER NETWORK ENGINEER Cholecystectomy Preston Jorge Luis PERSONAL COMPUTER NETWORK ENGINEER Cholecystectomy Meena Gravi us ESCROW CLOSER Cholecystectomy Krista Slarb PERSONAL COMPUTER NETWORK ENGINEER Cholecystectomy Krista Slarb PERSONAL COMPUTER NETWORK ENGINEER Cholecystectomy Krista Slarb PERSONAL COMPUTER NETWORK ENGINEER Colonoscopy Preston Vance Comment on above: November [...] Jorge Luis LP N Colonoscopy Meena Gravius ESCROW CLOSER Colonoscopy Krista Slarb LP N Colonoscopy Krista Slarb LP N Colonoscopy Krista Slarb LP N Extraction of cataract Martha Vance Comment on above: 2016 Dr Dias Extraction of cataract Taylo r Jeanne Comment on above: 2016 Dr Dias Extraction of cataract Taylo r Jeanne Comment on above: 2016 Dr Dias Extraction of cataract Maria Luisa Bkaari Comment on above: 2016 Dr Dias Extraction of cataract Martha n Jorge Luis Comment on above: 2016 Dr Dias Extraction of cataract Martha n Jorge Luis Comment on above: 2016 Dr Dias Extraction of cataract Martha n Jorge Luis Comment on above: 2016 Dr Dias Extraction of cataract Ashle y Cross PERSONAL COMPUTER NETWORK ENGINEER Extraction of cataract Martha n Jorge Luis PERSONAL COMPUTER NETWORK ENGINEER Extraction of cataract Jasmi n Gravius ESCROW CLOSER Extraction of cataract Chris a Slarb PERSONAL COMPUTER NETWORK ENGINEER Extraction of cataract Chris a Slarb PERSONAL COMPUTER NETWORK ENGINEER Extraction of cataract Chris a Slarb PERSONAL COMPUTER NETWORK ENGINEER Right ankle fracture Preston Vance Comment on above: has plate and screw Right ankle fracture Maria Luisa Jeanne Comment on above: has plate and screw Right ankle fracture Maria Luisa Jeanne Comment on above: has plate and screw Right ankle fracture Maria Luisa pizano Comment on above: has plate and screw Right ankle fracture rPeston Kang Comment on above: has plate and [...] above: left side Subtotal thyroidectomy Asher Kruse PERSONAL COMPUTER NETWORK ENGINEER Subtotal thyroidectomy Martha Kang PERSONAL COMPUTER NETWORK ENGINEER Subtotal thyroidectomy Jasmi n Gravius ESCROW CLOSER Subtotal thyroidectomy Chris a Slarb PERSONAL COMPUTER NETWORK ENGINEER Subtotal thyroidectomy Chris a Slarb PERSONAL COMPUTER NETWORK ENGINEER Subtotal thyroidectomy Chris a Slarb PERSONAL COMPUTER NETWORK ENGINEER Preston Kang LP N Olga Kruse LP N Preston Kang LP N Meena Gravius ESCROW CLOSER Krista Slarb LP N Krista Slarb LP N Krista Slarb LP N Plan of Treatment Date Care Activity Detail Author Start: 06-27-2025 Ambulatory ECG [facility] Start: 06-27-2025 End: 06-27-2025 Evaluation of diagnostic study results [facility] Start: 10-03-2023 Patient discharge [facility] Start: 08-30-2023 Evaluation of diagnostic study results [facility] Start: 06-24-2023 [facility] Start: 06-24-2023 [facility] Start: 06-23-2023 Assay of amylase [facility] Work Phone: Start: 06-23-2023 Assay of lipase [facility]; [facility] Work Phone: Start: 06-23-2023 Blood count complete auto&auto difrntl wbc [facility]; [facility] Work Phone: Start: 06-23-2023 CBC, PLATELETS & MANUAL DIFF (14810) : 2-4 weeks [facility]; [facility] [...] Phone: Start: 03-21-2022 Introduction of urinary catheter [facility] Work Phone: Start: 03-21-2022 Patient discharge [facility] Work Phone: Start: 03-21-2022 Ambulation therapy management [facility] Work Phone: Start: 03-21-2022 Continuous pulse oximetry [facility] Work Phone: Start: 03-21-2022 Elevation of head of bed [facility] Work Phone: Start: 03-21-2022 Incentive spirometry [facility] Work Phone: Start: 03-21-2022 Measuring intake and output [facility] Work Phone: Start: 03-21-2022 Notification of physician [facility] Work Phone: Start: 03-21-2022 End: 03-21-2022 Oxygen therapy [facility] Work Phone: Start: 03-21-2022 Patient education [facility] Work Phone: Start: 03-21-2022 Taking patient vital signs [facility] Work Phone: Start: 03-21-2022 Wound care [facility] Work Phone: Start: 03-21-2022 [facility] Work Phone: Start: 01-31-2022 Procedure Education [...] id isolate ea urine URINE ANTHONY CULTURE-IDENTIFICATN (44900) [facility]; [facility] Work [...] difrntl wbc CBC, Platelets & Auto Diff (67807) [facility] Work Phone: Comment on above: November 2020 Start: 08-14-2020 Cobalamin (Vitamin B12) [Mass/Vol] VITAMIN B12 AND FOLATES (19998) [facility] Work Phone: Comment on above: November 2020 Start: 08-05-2020 Comprehensive metabolic panel METABOLIC PANEL, COMPREHENSIVE (10878) [facility] Work Phone: Start: 08-05-2020 Blood count complete automated CBC & PLATELETS (AUTO) (86604) [facility] Work Phone: Start: 08-05-2020 Lipid panel LIPID PANEL (09067) [facility] Work Phone: Start: 08-05-2020 TSH Qn TSH (THYROID STIMULATING HORMONE) (65726) [facility] Work Phone: Start: 05-13-2020 Hepatitis c antibody HEPATITIS C ANTIBODY (25631) [facility] Work Phone: Comment on [...] B12) mass conc VITAMIN B12 AND FOLATES (84502) [facility] Work Phone: Start: 07-25-2018 25 hydroxy includes fractions if performed CALCIFEDIOL (16388) [facility] Work Phone: Start: 07-25-2018 Lipid panel LIPID PANEL (92629) [facility] Work Phone: Start: 07-25-2018 Thyrotropin Qn TSH (THYROID STIMULATING HORMONE) (46822) [facility] Work Phone: Start: 07-25-2018 Comprehensive metabolic panel METABOLIC PANEL, COMPREHENSIVE (06506) [facility] Work Phone: Start: 07-25-2018 Blood count complete automated CBC & PLATELETS (AUTO) (27287) [facility] Work Phone: Start: 04-13-2018 [...] Start: 05-07-2012 Potassium molar conc Potassium Serum (79441) [facility] Work Phone: Start: 05-07-2012 Potassium serum plasma/whole blood [facility]; [facility] Work Phone: Start: 05-07-2012 Fibrin dgradj products d-dimer quantitative [facility] Work Phone: Start: 05-07-2012 Assay of magnesium [facility]; [facility] Work Phone: Start: 05-07-2012 Magnesium mass conc Magnesium (56204) [facility] Work Phone: Start: 05-03-2012 [...] Work Phone: Start: 06-30-2011 Thyrotropin Qn TSH (46292) [facility] Work Phone: Start: 06-30-2011 [...] Protein mass conc Celiac Disease Comphrehensive Profile (50434) [facility] Work Phone: Start: 10-25-2010 Hpylori breath anal urease act non-radact istope [facility] Work Phone: Start: 10-25-2010 Assay of lipase [facility] Work Phone: Start: 10-25-2010 Amylase enzyme act/vol AMYLASE (84110) [facility] Work Phone: Start: 10-25-2010 [...] Work Phone: Start: 03-05-2010 Thyrotropin Qn TSH (33003) [facility] Work Phone: Start: 03-05-2010 [...] Work Phone: Start: 09-26-2006 Thyrotropin Qn TSH (92919) [facility] Work Phone: Comment on [...] Phone: Start: 06-27-2006 Magnesium mass conc MAGNESIUM (86533) [facility] Work Phone: Start: 06-27-2006 Potassium molar conc POTASSIUM SERUM (74199) [facility] Work Phone: Start: 06-27-2006 Potassium serum plasma/whole blood [facility]; [facility] Work Phone: Start: 06-27-2006 Assay of thyroid stimulating hormone tsh [facility]; [facility] Work Phone: Start: 06-27-2006 Thyrotropin Qn TSH (93931) [facility] Work Phone: Comment on above: in three months now 24 Hour ECG [facility] Patient referral [facility] Work Phone: US Heart [facility] US Thyroid gland [facility] Work Phone: [...] 09-24-2012 varicella zoster imm une globulin Lakisha Blancasanthoshbernadine [facility] Work Phone: Payers Date Payer Category Payer Self-pay [id number] 2016 Private Health Insurance [facility] [id number] 2010 Medicare [id number] 1998 Unknown [id number] 1945 Unknown [id number] 2.16.84 [id number] Unknown Unknown [id number] 2.16.8 [id number] Unknown [id number] 2.16.8 [id number] Unknown [id number] 2.16.8 [id number] Unknown [id number] 2.16.8 [id number] Unknown [id number] 2.16.8 [id number] Unknown [id number] 2.16.8 [id number] Unknown [id number] 2.16.8 [id number] Unknown [id number] 2.16.8 [id number] Unknown [id number] 2.16.8 [id number] Social History Date Type Detail Facility Alcohol Use Former smoker [facility] Work Phone: Comment on above: Occasional alcohol u se 2006 1-2 QD Retired [employer] Lives alone Tobacco use: Former smoker. [facility] Work Phone: Former smoker. [facility] Work Phone: Start: 01-27-2022 End: 11-02-2023 Tobacco smoking status WYIS Unknown if ever smoked [facility] Start: 1945 Sex Assigned At Female [facility] Start: 11-02-2023 Tobacco smoking stat us WYIS Ex-smoker (finding) [facility] Start: 11-22-2024 End: 12-25-2024 Sex Female (finding) [facility] Sex Female [facility] Goals Date Patient Goal Desired Activity /State Mental Status Date Assessment Result Facility 03-21-2022 Cognitive function Voice/Name [facility] Work Phone: Clinical Notes 09-27-2023 to 06-27-2025 Note Date & Type Note Facility 06-27-2025 Progress note [facility] 02-07-2025 Radiology Diagnostic study note [facility] Imaging Services [address] [place] [address] Thyroid MR#: [id number] Acct: [id number] Name: KAMRYN MUÑOZ Rep #: [id number] : 1945 F 79 From: Everette Rabago MD PCP: Dian Duron NP-C Status: REG C LI Study:Thyroid Date of Exam: 02/05/25 Exam# [id number] Ordering Dr: Karina Deleon MD PROCEDURE: THYROID [...] no more than 2 nodules. Reading Location: [facility]- CC: SCREW DOWN-C Dian Duron; Dr. Bro Deleon MD ~ Tube Heater: Signed [facility] 01-13-2025 Evaluation note Diagnosis Onset Date Resolution Essential hypertension acute 2024 12:53pm Premature ventricular contractions acute January 13, 2025 12:53pm Hyperlipidemia chronic January 13, 12:53pm Paroxysmal atrial fibrillation chronic January 13, 2025 12:53pm [facility] Work Phone: [phone] Evaluation note* Diagnosis Onset Date Resolution Status Admit Date H/O partial thyroidectomy acute August 06, 2024 12:35pm Thyroid nodule acute July 132023 12:35pm [facility] Work Phone: [phone] Procedure [facility] 10-03-2023 Procedure [facility]01-17-2024 History and physical note Author Kp Lopez [facility] September 27, 2023 4:56pm Note Date/Time September 27, 2023 1 0:56am [facility] Medical Records Department [address] [place] [address] History & Physical Exam 09/27/23 1051 MR#: [id number] Acct: [id number] Name: KAMRYN MUÑOZ Rep #:[id number] : 1945 77 From: Kp Lopez MD PCP: REBA Joyner Status:PRE S DC Location: [facility] History and Physical Date [...] EMR Allergies See EMR Medications See EMR [facility] Medical History Alcohol use Arthritis Arthritis [...] multiple views using a 5 Fr. 4.0 [place] catheter. Right Coronary Artery selective angiography was then performed in multiple views using a 5 Fr. 4.0 [place] catheter. Left Ventriculography was performed in [place] [...] She will proceed with a DCCV. 09/27/23 1659 <Electronically signed by Kp Lopez MD> Cosigner Signature (if applicable): 09/27/23 1056 <Electronically signed by Bharti BRITTON> CC: REBA Duron; REBA Parks; Dr. Kp Lopez MD~ Signed [facility] Work Phone: Evaluation note* Diagnosis Onset Date Resolution Status Essential hypertension acute Premature ventricular contractions acute Paroxysmal atrial fibrillation chronic Cluster headaches acute Migraine headache acute Tension headache acute [facility] Work Phone: Evaluation note* Diagnosis Onset Date Resolution Status Cluster headaches acute Migraine headache acute Tension headache acute [facility] Work Phone: Evaluation note* Diagnosis Onset Date Resolution Status Essential hypertension acute Premature ventricular contractions acute Paroxysmal atrial fibrillation [facility] Work Phone: Evaluation noteNo assessment information available [facility] Work Phone: Evaluation note* Diagnosis Onset Date Resolution Status Essential hypertension acute Premature ventricular contractions acute Hyperlipidemia chronic Paroxysmal atrial fibrillation [facility] Work Phone: Evaluation note* Diagnosis Onset Date Resolution Status Essential hypertension acute Premature ventricular contractions acute Hyperlipidemia chronic Paroxysmal atrial fibrillation chronic Essential hypertension acute Premature ventricular contractions acute Hyperlipidemia chronic Paroxysmal atrial fibrillation [facility] Work Phone: Evaluation note* Diagnosis Onset Date Resolution Status Admit Date Essential hypertension acute Oc tober 2024 9:16am Premature ventricular contractions acute June 27 9:16am Hyperlipidemia chronic June 272024 9:16am Paroxysmal atrial fibrillation chron ic June 27, 2025 9:16am [place] [facility] Work Phone: Hospital Discharge instructionsAmbulatory Orders* Internal Medicine Location: None Selected [place] [facility] Work Phone: Instructions* Name Dates Details Patient Instructions Indication:Nonsmoker Start:23-Dec-2020 Instruction Type:Provider Instructions for Treatment How to Access Health Informa tion Online using Patient Portal and [employer]rd [employer] Apps Indication:Nonsmoker Start:23-Dec-2020 Instruction Type:Patient Education Patient Instructions Indication:Nonsmoker Start:13-Nov-2020 Instruction Type:Provider Instructions for Treatment How to Access Health Informa tion Online using Patient Portal and [employer] Apps Indication:Nonsmoker Start:13-Nov-2020 Instruction Type:Patient Education [...] for Treatment DISCONTINUED - LIPID PANEL ( [id number]) Indication:Mixed Hyperlipidemia Start:25-Jul-2017 Instruction Type:Patient Education DISCONTINUED - HEPATIC FUNCT ION PANEL ([id number]) Indication:Mixed Hyperlipidemia Start:25-Jul-2017 Instruction Type:Patient Education How to access health informa tion online Indication:Hypertension Start:25-Jul-2017 Instruction Type:Patient Education How to access health informa tion online - Detail Indication:Hypertension Start:25-Jul-2017 Instruction Type:Patient Education Patient Instructions Indication:Hypertension Start:25-Jul-2017 Instruction Type:Provider Instructions for Treatment How to access health informa [employer] online Indication:BMI 34.0-34.9,adult Start:13-Sep-2016 Instruction Type:Patient Education [...] Name Dates Details How to Access Health [place] [employer] using Patient Portal and [employer] Apps Indication:Nonsmoker Start:02-Mar-2021 Instruction Type:Patient Education Patient Instructions Indication:Nonsmoker Start:02-Mar-2021 Instruction Type:Provider Instructions for Treatment Patient Instructions Indication:Nonsmoker Start:23-Dec-2020 Instruction Type:Provider Instructions for Treatment How to Access Health Informa tion Online using Patient Portal and [employer] Apps Indication:Nonsmoker Start:23-Dec-2020 Instruction Type:Patient Education Patient Instructions Indication:Nonsmoker Start:13-Nov-2020 Instruction Type:Provider Instructions for Treatment How to Access Health Informa tion Online using Patient Portal and [employer] Apps Indication:Nonsmoker Start:13-Nov-2020 Instruction Type:Patient Education [...] for Treatment DISCONTINUED - LIPID PANEL ( [id number]) Indication:Mixed Hyperlipidemia Start:25-Jul-2017 Instruction Type:Patient Education DISCONTINUED - HEPATIC FUNCT ION PANEL ([id number]) Indication:Mixed Hyperlipidemia Start:25-Jul-2017 Instruction Type:Patient Education How [...] tion Online using Patient Portal and [employer] Apps Indication:Nonsmoker Start:25-Aug-2021 Instruction Type:Patient Education Patient Instructions Indication:BMI 37.0-37.9, adult Start:26-May-2021 Instruction Type:Provider Instructions for Treatment How to Access Health Informa tion Online using Patient Portal and [employer] Apps Indication:BMI 37.0-37.9, adult Start:26-May-2021 Instruction Type:Patient Education Patient Instructions Indication:BMI 37.0-37.9, adult Start:11-May-2021 Instruction Type:Provider Instructions for Treatment How to Access Health Informa tion Online using Patient Portal and [employer] Apps Indication:BMI 37.0-37.9, adult Start:11-May-2021 Instruction Type:Patient Education How to Access Health Informa tion Online using Patient Portal and [employer] Apps Indication:Nonsmoker Start:02-Mar-2021 Instruction Type:Patient Education Patient Instructions Indication:Nonsmoker Start:02-Mar-2021 Instruction Type:Provider Instructions for Treatment Patient Instructions Indication:Nonsmoker Start:23-Dec-2020 Instruction Type:Provider Instructions for Treatment How to Access Health Informa tion Online using Patient Portal and [employer] Apps Indication:Nonsmoker Start:23-Dec-2020 Instruction Type:Patient Education Patient Instructions Indication:Nonsmoker Start:13-Nov-2020 Instruction Type:Provider Instructions for Treatment How to Access Health Informa tion Online using Patient Portal and [employer] Apps Indication:Nonsmoker Start:13-Nov-2020 Instruction Type:Patient Education [...] for Treatment DISCONTINUED - LIPID PANEL ( [id number]) Indication:Mixed Hyperlipidemia Start:25-Jul-2017 Instruction Type:Patient Education DISCONTINUED - HEPATIC FUNCT ION PANEL ([id number]) Indication:Mixed Hyperlipidemia Start:25-Jul-2017 Instruction Type:Patient Education How [...] Informa tion Online using Patient Portal and [employer] Apps Indication:Nonsmoker Start:25-Aug-2021 Instruction Type:Patient Education Patient Instructions Indication:BMI 37.0-37.9, adult Start:26-May-2021 Instruction Type:Provider Instructions for Treatment How to Access Health Informa tion Online using Patient Portal and [employer] Apps Indication:BMI 37.0-37.9, adult Start:26-May-2021 Instruction Type:Patient Education Patient Instructions Indication:BMI 37.0-37.9, adult Start:11-May-2021 Instruction Type:Provider Instructions for Treatment How to Access Health Informa tion Online using Patient Portal and [employer] Apps Indication:BMI 37.0-37.9, adult Start:11-May-2021 Instruction Type:Patient Education How to Access Health Informa tion Online using Patient Portal and [employer] Apps Indication:Nonsmoker Start:02-Mar-2021 Instruction Type:Patient Education Patient Instructions Indication:Nonsmoker Start:02-Mar-2021 Instruction Type:Provider Instructions for Treatment Patient Instructions Indication:Nonsmoker Start:23-Dec-2020 Instruction Type:Provider Instructions for Treatment How to Access Health Informa tion Online using Patient Portal and [employer] Apps Indication:Nonsmoker Start:23-Dec-2020 Instruction Type:Patient Education Patient Instructions Indication:Nonsmoker Start:13-Nov-2020 Instruction Type:Provider Instructions for Treatment How to Access Health Informa tion Online using Patient Portal and [employer] Apps Indication:Nonsmoker Start:13-Nov-2020 Instruction Type:Patient Education [...] for Treatment DISCONTINUED - LIPID PANEL ( [id number]) Indication:Mixed Hyperlipidemia Start:25-Jul-2017 Instruction Type:Patient Education DISCONTINUED - HEPATIC FUNCT ION PANEL ([id number]) Indication:Mixed Hyperlipidemia Start:25-Jul-2017 Instruction Type:Patient Education How [...] Informa tion Online using Patient Portal and [employer] Apps Indication:Nonsmoker Start:25-Aug-2021 Instruction Type:Patient Education Patient Instructions Indication:BMI 37.0-37.9, adult Start:26-May-2021 Instruction Type:Provider Instructions for Treatment How to Access Health Informa tion Online using Patient Portal and [employer] Apps Indication:BMI 37.0-37.9, adult Start:26-May-2021 Instruction Type:Patient Education Patient Instructions Indication:BMI 37.0-37.9, adult Start:11-May-2021 Instruction Type:Provider Instructions for Treatment How to Access Health Informa tion Online using Patient Portal and [employer] Apps Indication:BMI 37.0-37.9, adult Start:11-May-2021 Instruction Type:Patient Education How to Access Health Informa tion Online using Patient Portal and [employer] Apps Indication:Nonsmoker Start:02-Mar-2021 Instruction Type:Patient Education Patient Instructions Indication:Nonsmoker Start:02-Mar-2021 Instruction Type:Provider Instructions for Treatment Patient Instructions Indication:Nonsmoker Start:23-Dec-2020 Instruction Type:Provider Instructions for Treatment How to Access Health Informa tion Online using Patient Portal and [employer] Apps Indication:Nonsmoker Start:23-Dec-2020 Instruction Type:Patient Education Patient Instructions Indication:Nonsmoker Start:13-Nov-2020 Instruction Type:Provider Instructions for Treatment How to Access Health Informa tion Online using Patient Portal and [employer] Apps Indication:Nonsmoker Start:13-Nov-2020 Instruction Type:Patient Education [...] for Treatment DISCONTINUED - LIPID PANEL ( [id number]) Indication:Mixed Hyperlipidemia Start:25-Jul-2017 Instruction Type:Patient Education DISCONTINUED - HEPATIC FUNCT ION PANEL ([id number]) Indication:Mixed Hyperlipidemia Start:25-Jul-2017 Instruction Type:Patient Education How [...] Informa tion Online using Patient Portal and [employer] Apps Indication:Nonsmoker Start:25-Aug-2021 Instruction Type:Patient Education Patient Instructions Indication:BMI 37.0-37.9, adult Start:26-May-2021 Instruction Type:Provider Instructions for Treatment How to Access Health Informa tion Online using Patient Portal and [employer] Apps Indication:BMI 37.0-37.9, adult Start:26-May-2021 Instruction Type:Patient Education Patient Instructions Indication:BMI 37.0-37.9, adult Start:11-May-2021 Instruction Type:Provider Instructions for Treatment How to Access Health Informa tion Online using Patient Portal and [employer] Apps Indication:BMI 37.0-37.9, adult Start:11-May-2021 Instruction Type:Patient Education How to Access Health Informa tion Online using Patient Portal and [employer] Apps Indication:Nonsmoker Start:02-Mar-2021 Instruction Type:Patient Education Patient Instructions Indication:Nonsmoker Start:02-Mar-2021 Instruction Type:Provider Instructions for Treatment Patient Instructions Indication:Nonsmoker Start:23-Dec-2020 Instruction Type:Provider Instructions for Treatment How to Access Health Informa tion Online using Patient Portal and [employer] Apps Indication:Nonsmoker Start:23-Dec-2020 Instruction Type:Patient Education Patient Instructions Indication:Nonsmoker Start:13-Nov-2020 Instruction Type:Provider Instructions for Treatment How to Access Health Informa tion Online using Patient Portal and [employer] Apps Indication:Nonsmoker Start:13-Nov-2020 Instruction Type:Patient Education [...] for Treatment DISCONTINUED - LIPID PANEL ( [id number]) Indication:Mixed Hyperlipidemia Start:25-Jul-2017 Instruction Type:Patient Education DISCONTINUED - HEPATIC FUNCT ION PANEL ([id number]) Indication:Mixed Hyperlipidemia Start:25-Jul-2017 Instruction Type:Patient Education How to access health informa [employer] online Indication:Hypertension Start:25-Jul-2017 Instruction Type:Patient Education How to access health informa tion online - Detail Indication:Hypertension Start:25-Jul-2017 Instruction Type:Patient Education Patient Instructions Indication:Hypertension Start:25-Jul-2017 Instruction Type:Provider Instructions for Treatment How to access health [place] [employer] online Indication:BMI 34.0-34.9,adult Start:13-Sep-2016 Instruction Type:Patient Education [...] tion Online using Patient Portal and [employer] Apps Indication:BMI 37.0-37.9, adult Start:31-Jan-2022 Instruction Type:Patient Education Patient Instructions Indication:Nonsmoker Start:25-Aug-2021 Instruction Type:Provider Instructions for Treatment How to Access Health Informa tion Online using Patient Portal and [employer] Apps Indication:Nonsmoker Start:25-Aug-2021 Instruction Type:Patient Education Patient Instructions Indication:BMI 37.0-37.9, adult Start:26-May-2021 Instruction Type:Provider Instructions for Treatment How to Access Health Informa tion Online using Patient Portal and [employer] Apps Indication:BMI 37.0-37.9, adult Start:26-May-2021 Instruction Type:Patient Education Patient Instructions Indication:BMI 37.0-37.9, adult Start:11-May-2021 Instruction Type:Provider Instructions for Treatment How to Access Health Informa tion Online using Patient Portal and [employer] Apps Indication:BMI 37.0-37.9, adult Start:11-May-2021 Instruction Type:Patient Education How to Access Health Informa tion Online using Patient Portal and [employer] Apps Indication:Nonsmoker Start:02-Mar-2021 Instruction Type:Patient Education Patient Instructions Indication:Nonsmoker Start:02-Mar-2021 Instruction Type:Provider Instructions for Treatment Patient Instructions Indication:Nonsmoker Start:23-Dec-2020 Instruction Type:Provider Instructions for Treatment How to Access Health Informa tion Online using Patient Portal and [employer] Apps Indication:Nonsmoker Start:23-Dec-2020 Instruction Type:Patient Education Patient Instructions Indication:Nonsmoker Start:13-Nov-2020 Instruction Type:Provider Instructions for Treatment How to Access Health Informa tion Online using Patient Portal and [employer] Apps Indication:Nonsmoker Start:13-Nov-2020 Instruction Type:Patient Education [...] for Treatment DISCONTINUED - LIPID PANEL ( [id number]) Indication:Mixed Hyperlipidemia Start:25-Jul-2017 Instruction Type:Patient Education DISCONTINUED - HEPATIC FUNCT ION PANEL ([id number]) Indication:Mixed Hyperlipidemia Start:25-Jul-2017 Instruction Type:Patient Education How [...] tion Online using Patient Portal and [employer] Apps Indication:BMI 37.0-37.9, adult Start:31-Jan-2022 Instruction Type:Patient Education Patient Instructions Indication:Nonsmoker Start:25-Aug-2021 Instruction Type:Provider Instructions for Treatment How to Access Health Informa tion Online using Patient Portal and [employer] Apps Indication:Nonsmoker Start:25-Aug-2021 Instruction Type:Patient Education Patient Instructions Indication:BMI 37.0-37.9, adult Start:26-May-2021 Instruction Type:Provider Instructions for Treatment How to Access Health Informa tion Online using Patient Portal and [employer] Apps Indication:BMI 37.0-37.9, adult Start:26-May-2021 Instruction Type:Patient Education Patient Instructions Indication:BMI 37.0-37.9, adult Start:11-May-2021 Instruction Type:Provider Instructions for Treatment How to Access Health Informa tion Online using Patient Portal and [employer] Apps Indication:BMI 37.0-37.9, adult Start:11-May-2021 Instruction Type:Patient Education How to Access Health Informa tion Online using Patient Portal and [employer] Apps Indication:Nonsmoker Start:02-Mar-2021 Instruction Type:Patient Education Patient Instructions Indication:Nonsmoker Start:02-Mar-2021 Instruction Type:Provider Instructions for Treatment Patient Instructions Indication:Nonsmoker Start:23-Dec-2020 Instruction Type:Provider Instructions for Treatment How to Access Health Informa tion Online using Patient Portal and [employer] Apps Indication:Nonsmoker Start:23-Dec-2020 Instruction Type:Patient Education Patient Instructions Indication:Nonsmoker Start:13-Nov-2020 Instruction Type:Provider Instructions for Treatment How to Access Health Informa tion Online using Patient Portal and [employer] Apps Indication:Nonsmoker Start:13-Nov-2020 Instruction Type:Patient Education [...] for Treatment DISCONTINUED - LIPID PANEL ( [id number]) Indication:Mixed Hyperlipidemia Start:25-Jul-2017 Instruction Type:Patient Education DISCONTINUED - HEPATIC FUNCT ION PANEL ([id number]) Indication:Mixed Hyperlipidemia Start:25-Jul-2017 Instruction Type:Patient Education How [...] Informa tion Online using Patient Portal and [employer] Apps Indication:BMI 37.0-37.9, adult Start:31-Jan-2022 Instruction Type:Patient Education Patient Instructions Indication:Nonsmoker Start:25-Aug-2021 Instruction Type:Provider Instructions for Treatment How to Access Health Informa tion Online using Patient Portal and [employer] Apps Indication:Nonsmoker Start:25-Aug-2021 Instruction Type:Patient Education Patient Instructions Indication:BMI 37.0-37.9, adult Start:26-May-2021 Instruction Type:Provider Instructions for Treatment How to Access Health Informa tion Online using Patient Portal and [employer] Apps Indication:BMI 37.0-37.9, adult Start:26-May-2021 Instruction Type:Patient Education Patient Instructions Indication:BMI 37.0-37.9, adult Start:11-May-2021 Instruction Type:Provider Instructions for Treatment How to Access Health Informa tion Online using Patient Portal and [employer] Apps Indication:BMI 37.0-37.9, adult Start:11-May-2021 Instruction Type:Patient Education How to Access Health Informa tion Online using Patient Portal and [employer] Apps Indication:Nonsmoker Start:02-Mar-2021 Instruction Type:Patient Education Patient Instructions Indication:Nonsmoker Start:02-Mar-2021 Instruction Type:Provider Instructions for Treatment Patient Instructions Indication:Nonsmoker Start:23-Dec-2020 Instruction Type:Provider Instructions for Treatment How to Access Health Informa tion Online using Patient Portal and [employer] Apps Indication:Nonsmoker Start:23-Dec-2020 Instruction Type:Patient Education Patient Instructions Indication:Nonsmoker Start:13-Nov-2020 Instruction Type:Provider Instructions for Treatment How to Access Health Informa tion Online using Patient Portal and [employer] Apps Indication:Nonsmoker Start:13-Nov-2020 Instruction Type:Patient Education [...] for Treatment DISCONTINUED - LIPID PANEL ( [id number]) Indication:Mixed Hyperlipidemia Start:25-Jul-2017 Instruction Type:Patient Education DISCONTINUED - HEPATIC FUNCT ION PANEL ([id number]) Indication:Mixed Hyperlipidemia Start:25-Jul-2017 Instruction Type:Patient Education How [...] tion Online using Patient Portal and [employer] Apps Indication:BMI 37.0-37.9, adult Start:31-Jan-2022 Instruction Type:Patient Education Patient Instructions Indication:Nonsmoker Start:25-Aug-2021 Instruction Type:Provider Instructions for Treatment How to Access Health Informa tion Online using Patient Portal and [employer] Apps Indication:Nonsmoker Start:25-Aug-2021 Instruction Type:Patient Education Patient Instructions Indication:BMI 37.0-37.9, adult Start:26-May-2021 Instruction Type:Provider Instructions for Treatment How to Access Health Informa tion Online using Patient Portal and [employer] Apps Indication:BMI 37.0-37.9, adult Start:26-May-2021 Instruction Type:Patient Education Patient Instructions Indication:BMI 37.0-37.9, adult Start:11-May-2021 Instruction Type:Provider Instructions for Treatment How to Access Health Informa tion Online using Patient Portal and [employer] Apps Indication:BMI 37.0-37.9, adult Start:11-May-2021 Instruction Type:Patient Education How to Access Health Informa tion Online using Patient Portal and [employer] Apps Indication:Nonsmoker Start:02-Mar-2021 Instruction Type:Patient Education Patient Instructions Indication:Nonsmoker Start:02-Mar-2021 Instruction Type:Provider Instructions for Treatment Patient Instructions Indication:Nonsmoker Start:23-Dec-2020 Instruction Type:Provider Instructions for Treatment How to Access Health Informa tion Online using Patient Portal and [employer] Apps Indication:Nonsmoker Start:23-Dec-2020 Instruction Type:Patient Education Patient Instructions Indication:Nonsmoker Start:13-Nov-2020 Instruction Type:Provider Instructions for Treatment How to Access Health Informa tion Online using Patient Portal and [employer] Apps Indication:Nonsmoker Start:13-Nov-2020 Instruction Type:Patient Education [...] for Treatment DISCONTINUED - LIPID PANEL ( [id number]) Indication:Mixed Hyperlipidemia Start:25-Jul-2017 Instruction Type:Patient Education DISCONTINUED - HEPATIC FUNCT ION PANEL ([id number]) Indication:Mixed Hyperlipidemia Start:25-Jul-2017 Instruction Type:Patient Education How [...] tion Online using Patient Portal and [employer] Apps Indication:BMI 37.0-37.9, adult Start:31-Jan-2022 Instruction Type:Patient Education Patient Instructions Indication:Nonsmoker Start:25-Aug-2021 Instruction Type:Provider Instructions for Treatment How to Access Health Informa tion Online using Patient Portal and [employer] Apps Indication:Nonsmoker Start:25-Aug-2021 Instruction Type:Patient Education Patient Instructions Indication:BMI 37.0-37.9, adult Start:26-May-2021 Instruction Type:Provider Instructions for Treatment How to Access Health Informa tion Online using Patient Portal and [employer] Apps Indication:BMI 37.0-37.9, adult Start:26-May-2021 Instruction Type:Patient Education Patient Instructions Indication:BMI 37.0-37.9, adult Start:11-May-2021 Instruction Type:Provider Instructions for Treatment How to Access Health Informa tion Online using Patient Portal and [employer] Apps Indication:BMI 37.0-37.9, adult Start:11-May-2021 Instruction Type:Patient Education How to Access Health Informa tion Online using Patient Portal and [employer] Apps Indication:Nonsmoker Start:02-Mar-2021 Instruction Type:Patient Education Patient Instructions Indication:Nonsmoker Start:02-Mar-2021 Instruction Type:Provider Instructions for Treatment Patient Instructions Indication:Nonsmoker Start:23-Dec-2020 Instruction Type:Provider Instructions for Treatment How to Access Health Informa tion Online using Patient Portal and [employer] Apps Indication:Nonsmoker Start:23-Dec-2020 Instruction Type:Patient Education Patient Instructions Indication:Nonsmoker Start:13-Nov-2020 Instruction Type:Provider Instructions for Treatment How to Access Health Informa tion Online using Patient Portal and [employer] Apps Indication:Nonsmoker Start:13-Nov-2020 Instruction Type:Patient Education [...] for Treatment DISCONTINUED - LIPID PANEL ( [id number]) Indication:Mixed Hyperlipidemia Start:25-Jul-2017 Instruction Type:Patient Education DISCONTINUED - HEPATIC FUNCT ION PANEL ([id number]) Indication:Mixed Hyperlipidemia Start:25-Jul-2017 Instruction Type:Patient Education How [...] tion Online using Patient Portal and [employer] Apps Indication:BMI 37.0-37.9, adult Start:31-Jan-2022 Instruction Type:Patient Education Patient Instructions Start:25-Aug-2021 Instruction Type:Provider Instructions for Treatment How to Access Health Informa tion Online using Patient Portal and [employer] Start:25-Aug-2021 Instruction Type:Patient Education Patient Instructions Indication:BMI 37.0-37.9, adult Start:26-May-2021 Instruction Type:Provider Instructions for Treatment How to Access Health Informa tion Online using Patient Portal and [employer] Apps Indication:BMI 37.0-37.9, adult Start:26-May-2021 Instruction Type:Patient Education Patient Instructions Indication:BMI 37.0-37.9, adult Start:11-May-2021 Instruction Type:Provider Instructions for Treatment How to Access Health Informa tion Online using Patient Portal and [employer] Indication:BMI 37.0-37.9, adult Start:11-May-2021 Instruction Type:Patient Education How to Access Health Informa tion Online using Patient Portal and [employer] Apps Start:02-Mar-2021 Instruction Type:Patient Education Patient Instructions Start:02-Mar-2021 Instruction Type:Provider Instructions for Treatment Patient Instructions Start:23-Dec-2020 Instruction Type:Provider Instructions for Treatment How to Access Health Informa tion Online using Patient Portal and [employer] Start:23-Dec-2020 Instruction Type:Patient Education Patient Instructions Start:13-Nov-2020 Instruction Type:Provider Instructions for Treatment How to Access Health Informa tion Online using Patient Portal and [employer] Start:13-Nov-2020 Instruction Type:Patient Education How [...] for Treatment DISCONTINUED - LIPID PANEL ( [id number]) Indication:Mixed Hyperlipidemia Start:25-Jul-2017 Instruction Type:Patient Education DISCONTINUED - HEPATIC FUNCT ION PANEL ([id number]) Indication:Mixed Hyperlipidemia Start:25-Jul-2017 Instruction Type:Patient Education How [...] Informa tion Online using Patient Portal and [employer] Indication:Nonsmoker Start:22-Aug-2022 Instruction Type:Patient Education Patient Instructions Indication:Nonsmoker Start:22-Aug-2022 Instruction Type:Provider Instructions for Treatment Patient Instructions Indication:BMI 37.0-37.9, adult Start:31-Jan-2022 Instruction Type:Provider Instructions for Treatment How to Access Health Informa tion Online using Patient Portal and [employer] Indication:BMI 37.0-37.9, adult Start:31-Jan-2022 Instruction Type:Patient Education Patient Instructions Indication:Nonsmoker Start:25-Aug-2021 Instruction Type:Provider Instructions for Treatment How to Access Health Informa tion Online using Patient Portal and [employer] Indication:Nonsmoker Start:25-Aug-2021 Instruction Type:Patient Education Patient Instructions Indication:BMI 37.0-37.9, adult Start:26-May-2021 Instruction Type:Provider Instructions for Treatment How to Access Health Informa tion Online using Patient Portal and [employer] Apps Indication:BMI 37.0-37.9, adult Start:26-May-2021 Instruction Type:Patient Education Patient Instructions Indication:BMI 37.0-37.9, adult Start:11-May-2021 Instruction Type:Provider Instructions for Treatment How to Access Health Informa tion Online using Patient Portal and [employer] Indication:BMI 37.0-37.9, adult Start:11-May-2021 Instruction Type:Patient Education How to Access Health Informa tion Online using Patient Portal and [employer] Indication:Nonsmoker Start:02-Mar-2021 Instruction Type:Patient Education Patient Instructions Indication:Nonsmoker Start:02-Mar-2021 Instruction Type:Provider Instructions for Treatment Patient Instructions Indication:Nonsmoker Start:23-Dec-2020 Instruction Type:Provider Instructions for Treatment How to Access Health Informa tion Online using Patient Portal and [employer] Apps Indication:Nonsmoker Start:23-Dec-2020 Instruction Type:Patient Education Patient Instructions Indication:Nonsmoker Start:13-Nov-2020 Instruction Type:Provider Instructions for Treatment How to Access Health Informa tion Online using Patient Portal and [employer] Apps Indication:Nonsmoker Start:13-Nov-2020 Instruction Type:Patient Education [...] for Treatment DISCONTINUED - LIPID PANEL ( [id number]) Indication:Mixed Hyperlipidemia Start:25-Jul-2017 Instruction Type:Patient Education DISCONTINUED - HEPATIC FUNCT ION PANEL ([id number]) Indication:Mixed Hyperlipidemia Start:25-Jul-2017 Instruction Type:Patient Education How [...] Informa tion Online using Patient Portal and [employer] Indication:Nonsmoker Start:22-Aug-2022 Instruction Type:Patient Education Patient Instructions Indication:Nonsmoker Start:22-Aug-2022 Instruction Type:Provider Instructions for Treatment Patient Instructions Indication:BMI 37.0-37.9, adult Start:31-Jan-2022 Instruction Type:Provider Instructions for Treatment How to Access Health Informa tion Online using Patient Portal and [employer] Indication:BMI 37.0-37.9, adult Start:31-Jan-2022 Instruction Type:Patient Education Patient Instructions Indication:Nonsmoker Start:25-Aug-2021 Instruction Type:Provider Instructions for Treatment How to Access Health Informa tion Online using Patient Portal and [employer] Indication:Nonsmoker Start:25-Aug-2021 Instruction Type:Patient Education Patient Instructions Indication:BMI 37.0-37.9, adult Start:26-May-2021 Instruction Type:Provider Instructions for Treatment How to Access Health Informa tion Online using Patient Portal and [employer] Apps Indication:BMI 37.0-37.9, adult Start:26-May-2021 Instruction Type:Patient Education Patient Instructions Indication:BMI 37.0-37.9, adult Start:11-May-2021 Instruction Type:Provider Instructions for Treatment How to Access Health Informa tion Online using Patient Portal and [employer] Apps Indication:BMI 37.0-37.9, adult Start:11-May-2021 Instruction Type:Patient Education How to Access Health Informa tion Online using Patient Portal and [employer] Apps Indication:Nonsmoker Start:02-Mar-2021 Instruction Type:Patient Education Patient Instructions Indication:Nonsmoker Start:02-Mar-2021 Instruction Type:Provider Instructions for Treatment Patient Instructions Indication:Nonsmoker Start:23-Dec-2020 Instruction Type:Provider Instructions for Treatment How to Access Health Informa tion Online using Patient Portal and [employer] Apps Indication:Nonsmoker Start:23-Dec-2020 Instruction Type:Patient Education Patient Instructions Indication:Nonsmoker Start:13-Nov-2020 Instruction Type:Provider Instructions for Treatment How to Access Health Informa tion Online using Patient Portal and [employer] Apps Indication:Nonsmoker Start:13-Nov-2020 Instruction Type:Patient Education [...] for Treatment DISCONTINUED - LIPID PANEL ( [id number]) Indication:Mixed Hyperlipidemia Start:25-Jul-2017 Instruction Type:Patient Education DISCONTINUED - HEPATIC FUNCT ION PANEL ([id number]) Indication:Mixed Hyperlipidemia Start:25-Jul-2017 Instruction Type:Patient Education How [...] tion Online using Patient Portal and [employer] Apps Indication:Nonsmoker Start:22-Aug-2022 Instruction Type:Patient Education Patient Instructions Indication:Nonsmoker Start:22-Aug-2022 Instruction Type:Provider Instructions for Treatment Patient Instructions Indication:BMI 37.0-37.9, adult Start:31-Jan-2022 Instruction Type:Provider Instructions for Treatment How to Access Health Informa tion Online using Patient Portal and [employer] Indication:BMI 37.0-37.9, adult Start:31-Jan-2022 Instruction Type:Patient Education Patient Instructions Indication:Nonsmoker Start:25-Aug-2021 Instruction Type:Provider Instructions for Treatment How to Access Health Informa tion Online using Patient Portal and [employer] Apps Indication:Nonsmoker Start:25-Aug-2021 Instruction Type:Patient Education Patient Instructions Indication:BMI 37.0-37.9, adult Start:26-May-2021 Instruction Type:Provider Instructions for Treatment How to Access Health Informa tion Online using Patient Portal and [employer] Indication:BMI 37.0-37.9, adult Start:26-May-2021 Instruction Type:Patient Education Patient Instructions Indication:BMI 37.0-37.9, adult Start:11-May-2021 Instruction Type:Provider Instructions for Treatment How to Access Health Informa tion Online using Patient Portal and [employer] Indication:BMI 37.0-37.9, adult Start:11-May-2021 Instruction Type:Patient Education How to Access Health Informa tion Online using Patient Portal and [employer] Apps Indication:Nonsmoker Start:02-Mar-2021 Instruction Type:Patient Education Patient Instructions Indication:Nonsmoker Start:02-Mar-2021 Instruction Type:Provider Instructions for Treatment Patient Instructions Indication:Nonsmoker Start:23-Dec-2020 Instruction Type:Provider Instructions for Treatment How to Access Health Informa tion Online using Patient Portal and [employer] Apps Indication:Nonsmoker Start:23-Dec-2020 Instruction Type:Patient Education Patient Instructions Indication:Nonsmoker Start:13-Nov-2020 Instruction Type:Provider Instructions for Treatment How to Access Health Informa tion Online using Patient Portal and [employer] Apps Indication:Nonsmoker Start:13-Nov-2020 Instruction Type:Patient Education [...] for Treatment DISCONTINUED - LIPID PANEL ( [id number]) Indication:Mixed Hyperlipidemia Start:25-Jul-2017 Instruction Type:Patient Education DISCONTINUED - HEPATIC FUNCT ION PANEL ([id number]) Indication:Mixed Hyperlipidemia Start:25-Jul-2017 Instruction Type:Patient Education How [...] Informa tion Online using Patient Portal and [employer] Indication:Nonsmoker Start:22-Aug-2022 Instruction Type:Patient Education Patient Instructions Indication:Nonsmoker Start:22-Aug-2022 Instruction Type:Provider Instructions for Treatment Patient Instructions Indication:BMI 37.0-37.9, adult Start:31-Jan-2022 Instruction Type:Provider Instructions for Treatment How to Access Health Informa tion Online using Patient Portal and [employer] Indication:BMI 37.0-37.9, adult Start:31-Jan-2022 Instruction Type:Patient Education Patient Instructions Indication:Nonsmoker Start:25-Aug-2021 Instruction Type:Provider Instructions for Treatment How to Access Health Informa tion Online using Patient Portal and [employer] Indication:Nonsmoker Start:25-Aug-2021 Instruction Type:Patient Education Patient Instructions Indication:BMI 37.0-37.9, adult Start:26-May-2021 Instruction Type:Provider Instructions for Treatment How to Access Health Informa tion Online using Patient Portal and [employer] Indication:BMI 37.0-37.9, adult Start:26-May-2021 Instruction Type:Patient Education Patient Instructions Indication:BMI 37.0-37.9, adult Start:11-May-2021 Instruction Type:Provider Instructions for Treatment How to Access Health Informa tion Online using Patient Portal and [employer] Indication:BMI 37.0-37.9, adult Start:11-May-2021 Instruction Type:Patient Education How to Access Health Informa tion Online using Patient Portal and [employer] Apps Indication:Nonsmoker Start:02-Mar-2021 Instruction Type:Patient Education Patient Instructions Indication:Nonsmoker Start:02-Mar-2021 Instruction Type:Provider Instructions for Treatment Patient Instructions Indication:Nonsmoker Start:23-Dec-2020 Instruction Type:Provider Instructions for Treatment How to Access Health Informa tion Online using Patient Portal and [employer] Apps Indication:Nonsmoker Start:23-Dec-2020 Instruction Type:Patient Education Patient Instructions Indication:Nonsmoker Start:13-Nov-2020 Instruction Type:Provider Instructions for Treatment How to Access Health Informa tion Online using Patient Portal and [employer] Apps Indication:Nonsmoker Start:13-Nov-2020 Instruction Type:Patient Education [...] for Treatment DISCONTINUED - LIPID PANEL ( [id number]) Indication:Mixed Hyperlipidemia Start:25-Jul-2017 Instruction Type:Patient Education DISCONTINUED - HEPATIC FUNCT ION PANEL ([id number]) Indication:Mixed Hyperlipidemia Start:25-Jul-2017 Instruction Type:Patient Education How [...] tion Online using Patient Portal and [employer] Apps Indication:Mixed Hyperlipidemia Start:20-Feb-2023 Instruction Type:Patient Education How to Access Health Informa tion Online using Patient Portal and [employer] Apps Indication:Nonsmoker Start:22-Aug-2022 Instruction Type:Patient Education Patient Instructions Indication:Nonsmoker Start:22-Aug-2022 Instruction Type:Provider Instructions for Treatment Patient Instructions Indication:BMI 37.0-37.9, adult Start:31-Jan-2022 Instruction Type:Provider Instructions for Treatment How to Access Health Informa tion Online using Patient Portal and [employer] Indication:BMI 37.0-37.9, adult Start:31-Jan-2022 Instruction Type:Patient Education Patient Instructions Indication:Nonsmoker Start:25-Aug-2021 Instruction Type:Provider Instructions for Treatment How to Access Health Informa tion Online using Patient Portal and [employer] Apps Indication:Nonsmoker Start:25-Aug-2021 Instruction Type:Patient Education Patient Instructions Indication:BMI 37.0-37.9, adult Start:26-May-2021 Instruction Type:Provider Instructions for Treatment How to Access Health Informa tion Online using Patient Portal and [employer] Indication:BMI 37.0-37.9, adult Start:26-May-2021 Instruction Type:Patient Education Patient Instructions Indication:BMI 37.0-37.9, adult Start:11-May-2021 Instruction Type:Provider Instructions for Treatment How to Access Health Informa tion Online using Patient Portal and [employer] Indication:BMI 37.0-37.9, adult Start:11-May-2021 Instruction Type:Patient Education How to Access Health Informa tion Online using Patient Portal and [employer] Apps Indication:Nonsmoker Start:02-Mar-2021 Instruction Type:Patient Education Patient Instructions Indication:Nonsmoker Start:02-Mar-2021 Instruction Type:Provider Instructions for Treatment Patient Instructions Indication:Nonsmoker Start:23-Dec-2020 Instruction Type:Provider Instructions for Treatment How to Access Health Informa tion Online using Patient Portal and [employer] Apps Indication:Nonsmoker Start:23-Dec-2020 Instruction Type:Patient Education Patient Instructions Indication:Nonsmoker Start:13-Nov-2020 Instruction Type:Provider Instructions for Treatment How to Access Health Informa tion Online using Patient Portal and [employer] Apps Indication:Nonsmoker Start:13-Nov-2020 Instruction Type:Patient Education [...] for Treatment DISCONTINUED - LIPID PANEL ( [id number]) Indication:Mixed Hyperlipidemia Start:25-Jul-2017 Instruction Type:Patient Education DISCONTINUED - HEPATIC FUNCT ION PANEL ([id number]) Indication:Mixed Hyperlipidemia Start:25-Jul-2017 Instruction Type:Patient Education How [...] tion Online using Patient Portal and [employer] Apps Indication:Class 2 obesity due to excess calories without serious comorbidity with body mass index (BMI) of 38.0 to 38.9 in adult Start:20-Feb-2023 Instruction Type:Patient Education How to Access Health Informa tion Online using Patient Portal and [employer] Apps Indication:Nonsmoker Start:22-Aug-2022 Instruction Type:Patient Education Patient Instructions Indication:Nonsmoker Start:22-Aug-2022 Instruction Type:Provider Instructions for Treatment Patient Instructions Indication:BMI 37.0-37.9, adult Start:31-Jan-2022 Instruction Type:Provider Instructions for Treatment How to Access Health Informa tion Online using Patient Portal and [employer] Indication:BMI 37.0-37.9, adult Start:31-Jan-2022 Instruction Type:Patient Education Patient Instructions Indication:Nonsmoker Start:25-Aug-2021 Instruction Type:Provider Instructions for Treatment How to Access Health Informa tion Online using Patient Portal and [employer] Indication:Nonsmoker Start:25-Aug-2021 Instruction Type:Patient Education Patient Instructions Indication:BMI 37.0-37.9, adult Start:26-May-2021 Instruction Type:Provider Instructions for Treatment How to Access Health Informa tion Online using Patient Portal and [employer] Indication:BMI 37.0-37.9, adult Start:26-May-2021 Instruction Type:Patient Education Patient Instructions Indication:BMI 37.0-37.9, adult Start:11-May-2021 Instruction Type:Provider Instructions for Treatment How to Access Health Informa tion Online using Patient Portal and [employer] Indication:BMI 37.0-37.9, adult Start:11-May-2021 Instruction Type:Patient Education How to Access Health Informa tion Online using Patient Portal and [employer] Apps Indication:Nonsmoker Start:02-Mar-2021 Instruction Type:Patient Education Patient Instructions Indication:Nonsmoker Start:02-Mar-2021 Instruction Type:Provider Instructions for Treatment Patient Instructions Indication:Nonsmoker Start:23-Dec-2020 Instruction Type:Provider Instructions for Treatment How to Access Health Informa tion Online using Patient Portal and [employer] Apps Indication:Nonsmoker Start:23-Dec-2020 Instruction Type:Patient Education Patient Instructions Indication:Nonsmoker Start:13-Nov-2020 Instruction Type:Provider Instructions for Treatment How to Access Health Informa tion Online using Patient Portal and [employer] Apps Indication:Nonsmoker Start:13-Nov-2020 Instruction Type:Patient Education [...] for Treatment DISCONTINUED - LIPID PANEL ( [id number]) Indication:Mixed Hyperlipidemia Start:25-Jul-2017 Instruction Type:Patient Education DISCONTINUED - HEPATIC FUNCT ION PANEL ([id number]) Indication:Mixed Hyperlipidemia Start:25-Jul-2017 Instruction Type:Patient Education How [...] Informa tion Online using Patient Portal and [employer] Indication:Class 2 obesity due to excess calories without serious comorbidity with body mass index (BMI) of 38.0 to 38.9 in adult Start:20-Feb-2023 Instruction Type:Patient Education How to Access Health Informa tion Online using Patient Portal and [employer] Indication:Nonsmoker Start:22-Aug-2022 Instruction Type:Patient Education Patient Instructions Indication:Nonsmoker Start:22-Aug-2022 Instruction Type:Provider Instructions for Treatment Patient Instructions Indication:BMI 37.0-37.9, adult Start:31-Jan-2022 Instruction Type:Provider Instructions for Treatment How to Access Health Informa tion Online using Patient Portal and [employer] Indication:BMI 37.0-37.9, adult Start:31-Jan-2022 Instruction Type:Patient Education Patient Instructions Indication:Nonsmoker Start:25-Aug-2021 Instruction Type:Provider Instructions for Treatment How to Access Health Informa tion Online using Patient Portal and [employer] Indication:Nonsmoker Start:25-Aug-2021 Instruction Type:Patient Education Patient Instructions Indication:BMI 37.0-37.9, adult Start:26-May-2021 Instruction Type:Provider Instructions for Treatment How to Access Health Informa tion Online using Patient Portal and [employer] Indication:BMI 37.0-37.9, adult Start:26-May-2021 Instruction Type:Patient Education Patient Instructions Indication:BMI 37.0-37.9, adult Start:11-May-2021 Instruction Type:Provider Instructions for Treatment How to Access Health Informa tion Online using Patient Portal and [employer] Indication:BMI 37.0-37.9, adult Start:11-May-2021 Instruction Type:Patient Education How to Access Health Informa tion Online using Patient Portal and [employer] Apps Indication:Nonsmoker Start:02-Mar-2021 Instruction Type:Patient Education Patient Instructions Indication:Nonsmoker Start:02-Mar-2021 Instruction Type:Provider Instructions for Treatment Patient Instructions Indication:Nonsmoker Start:23-Dec-2020 Instruction Type:Provider Instructions for Treatment How to Access Health Informa tion Online using Patient Portal and [employer] Apps Indication:Nonsmoker Start:23-Dec-2020 Instruction Type:Patient Education Patient Instructions Indication:Nonsmoker Start:13-Nov-2020 Instruction Type:Provider Instructions for Treatment How to Access Health Informa tion Online using Patient Portal and [employer] Indication:Nonsmoker Start:13-Nov-2020 Instruction Type:Patient Education [...] for Treatment DISCONTINUED - LIPID PANEL ( [id number]) Indication:Mixed Hyperlipidemia Start:25-Jul-2017 Instruction Type:Patient Education DISCONTINUED - HEPATIC FUNCT ION PANEL ([id number]) Indication:Mixed Hyperlipidemia Start:25-Jul-2017 Instruction Type:Patient Education How [...] tion Online using Patient Portal and [employer] Apps Indication:Nonsmoker Start:23-Jun-2023 Instruction Type:Patient Education Patient Instructions Indication:Class 2 obesity due to excess calories without serious comorbidity with body mass index (BMI) of 38.0 to 38.9 in adult Start:20-Feb-2023 Instruction Type:Provider Instructions for Treatment How to Access Health Informa tion Online using Patient Portal and [employer] Indication:Class 2 obesity due to excess calories without serious comorbidity with body mass index (BMI) of 38.0 to 38.9 in adult Start:20-Feb-2023 Instruction Type:Patient Education How to Access Health Informa tion Online using Patient Portal and [employer] Indication:Nonsmoker Start:22-Aug-2022 Instruction Type:Patient Education Patient Instructions Indication:Nonsmoker Start:22-Aug-2022 Instruction Type:Provider Instructions for Treatment Patient Instructions Indication:BMI 37.0-37.9, adult Start:31-Jan-2022 Instruction Type:Provider Instructions for Treatment How to Access Health Informa tion Online using Patient Portal and [employer] Apps Indication:BMI 37.0-37.9, adult Start:31-Jan-2022 Instruction Type:Patient Education Patient Instructions Indication:Nonsmoker Start:25-Aug-2021 Instruction Type:Provider Instructions for Treatment How to Access Health Informa tion Online using Patient Portal and [employer] Apps Indication:Nonsmoker Start:25-Aug-2021 Instruction Type:Patient Education Patient Instructions Indication:BMI 37.0-37.9, adult Start:26-May-2021 Instruction Type:Provider Instructions for Treatment How to Access Health Informa tion Online using Patient Portal and [employer] Indication:BMI 37.0-37.9, adult Start:26-May-2021 Instruction Type:Patient Education Patient Instructions Indication:BMI 37.0-37.9, adult Start:11-May-2021 Instruction Type:Provider Instructions for Treatment How to Access Health Informa tion Online using Patient Portal and [employer] Indication:BMI 37.0-37.9, adult Start:11-May-2021 Instruction Type:Patient Education How to Access Health Informa tion Online using Patient Portal and [employer] Indication:Nonsmoker Start:02-Mar-2021 Instruction Type:Patient Education Patient Instructions Indication:Nonsmoker Start:02-Mar-2021 Instruction Type:Provider Instructions for Treatment Patient Instructions Indication:Nonsmoker Start:23-Dec-2020 Instruction Type:Provider Instructions for Treatment How to Access Health Informa tion Online using Patient Portal and [employer] Indication:Nonsmoker Start:23-Dec-2020 Instruction Type:Patient Education Patient Instructions Indication:Nonsmoker Start:13-Nov-2020 Instruction Type:Provider Instructions for Treatment How to Access Health Informa tion Online using Patient Portal and [employer] Indication:Nonsmoker Start:13-Nov-2020 Instruction Type:Patient Education [...] for Treatment DISCONTINUED - LIPID PANEL ( [id number]) Indication:Mixed Hyperlipidemia Start:25-Jul-2017 Instruction Type:Patient Education DISCONTINUED - HEPATIC FUNCT ION PANEL ([id number]) Indication:Mixed Hyperlipidemia Start:25-Jul-2017 Instruction Type:Patient Education How to access health informa [employer] online Indication:Hypertension Start:25-Jul-2017 Instruction Type:Patient Education How to access health informa tion online - Detail Indication:Hypertension Start:25-Jul-2017 Instruction Type:Patient Education Patient Instructions Indication:Hypertension Start:25-Jul-2017 Instruction Type:Provider Instructions for Treatment How to access health informa [employer] online Indication:BMI 34.0-34.9,adult Start:13-Sep-2016 Instruction Type:Patient Education [...] tion Online using Patient Portal and [employer] Indication:Nonsmoker Start:23-Jun-2023 Instruction Type:Patient Education Patient Instructions Indication:Class 2 obesity due to excess calories without serious comorbidity with body mass index (BMI) of 38.0 to 38.9 in adult Start:20-Feb-2023 Instruction Type:Provider Instructions for Treatment How to Access Health Informa tion Online using Patient Portal and [employer] Indication:Class 2 obesity due to excess calories without serious comorbidity with body mass index (BMI) of 38.0 to 38.9 in adult Start:20-Feb-2023 Instruction Type:Patient Education How to Access Health Informa tion Online using Patient Portal and [employer] Indication:Nonsmoker Start:22-Aug-2022 Instruction Type:Patient Education Patient Instructions Indication:Nonsmoker Start:22-Aug-2022 Instruction Type:Provider Instructions for Treatment Patient Instructions Indication:BMI 37.0-37.9, adult Start:31-Jan-2022 Instruction Type:Provider Instructions for Treatment How to Access Health Informa tion Online using Patient Portal and [employer] Indication:BMI 37.0-37.9, adult Start:31-Jan-2022 Instruction Type:Patient Education Patient Instructions Indication:Nonsmoker Start:25-Aug-2021 Instruction Type:Provider Instructions for Treatment How to Access Health Informa tion Online using Patient Portal and [employer] Indication:Nonsmoker Start:25-Aug-2021 Instruction Type:Patient Education Patient Instructions Indication:BMI 37.0-37.9, adult Start:26-May-2021 Instruction Type:Provider Instructions for Treatment How to Access Health Informa tion Online using Patient Portal and [employer] Indication:BMI 37.0-37.9, adult Start:26-May-2021 Instruction Type:Patient Education Patient Instructions Indication:BMI 37.0-37.9, adult Start:11-May-2021 Instruction Type:Provider Instructions for Treatment How to Access Health Informa tion Online using Patient Portal and 3rd [employer] Apps Indication:BMI 37.0-37.9, adult Start:11-May-2021 Instruction Type:Patient Education How to Access Health Informa tion Online using Patient Portal and 3rd [employer] Apps Indication:Nonsmoker Start:02-Mar-2021 Instruction Type:Patient Education Patient Instructions Indication:Nonsmoker Start:02-Mar-2021 Instruction Type:Provider Instructions for Treatment Patient Instructions Indication:Nonsmoker Start:23-Dec-2020 Instruction Type:Provider Instructions for Treatment How to Access Health Informa tion Online using Patient Portal and 3rd [employer] Apps Indication:Nonsmoker Start:23-Dec-2020 Instruction Type:Patient Education Patient Instructions Indication:Nonsmoker Start:13-Nov-2020 Instruction Type:Provider Instructions for Treatment How to Access Health Informa tion Online using Patient Portal and 3rd [employer] Apps Indication:Nonsmoker Start:13-Nov-2020 Instruction Type:Patient Education [...] for Treatment DISCONTINUED - LIPID PANEL ( 31579) Indication:Mixed Hyperlipidemia Start:25-Jul-2017 Instruction Type:Patient Education DISCONTINUED - HEPATIC FUNCT ION PANEL (34347) Indication:Mixed Hyperlipidemia Start:25-Jul-2017 Instruction Type:Patient Education How [...] Type:Provider Instructions for Treatment How to access [employer] Indication:Acute pharyngitis Start:01-Sep-2014 Instruction Type:Patient Education How [...] Work Phone: progress note Author Abdias Ortiz [facility] Note Date/Time June 27, 2025 1 0:33am [facility] [address] [place] [address]. [address] [place] [address] OFFICE VISIT Date of Service: 06/27/25 MR#: [id number] Acct: [id number] Name: KAMRYN MUÑOZ Rep #: [id number] : [id number] Provider: TIARRA Dee Age/Sex: 79/F [place] [facility] [place]: S[place] HPI HPI History of Present [...] led to her panicking. 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 [facility] Medical History Thyroid nodule Wears glasses [...] 1.5 seconds. There were a total of [id number] beats of AFIB comprising 100% of the [...] rhythm at a rate of 83 bpm. [id number] score of 4. 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) Coding Level of Care Code Off vis,est,level [...] (if applicable) Kp Lopez MD CC: ~ [facility] [employer] Work Phone: Reason for referral (narrative)No reason for referral information [facility] Work Phone: Family History No Family History [...] Hyperlipidemia : DISCO NTINUED - LIPID PANEL (14572) Indication:Mixed Hyperlipidemia Mixed Hyperlipidemia : DISCO NTINUED - HEPATIC FUNCTION PANEL (56070) Indication:Mixed Hyperlipidemia Hypertension : How to access [...] Hyperlipidemia : DISCO NTINUED - LIPID PANEL (66121) Indication:Mixed Hyperlipidemia Mixed Hyperlipidemia : DISCO NTINUED - HEPATIC FUNCTION PANEL (01336) Indication:Mixed Hyperlipidemia Hypertension : How to access [...] for Treatment DISCONTINUED - LIPID PANEL ( 45164) Indication:Mixed Hyperlipidemia Start:25-Jul-2017 Instruction Type:Patient Education DISCONTINUED - HEPATIC FUNCT ION PANEL (67199) Indication:Mixed Hyperlipidemia Start:25-Jul-2017 Instruction Type:Patient Education How [...] for Treatment DISCONTINUED - LIPID PANEL ( 45887) Indication:Mixed Hyperlipidemia Start:25-Jul-2017 Instruction Type:Patient Education DISCONTINUED - HEPATIC FUNCT ION PANEL (19470) Indication:Mixed Hyperlipidemia Start:25-Jul-2017 Instruction Type:Patient Education How [...] for Treatment DISCONTINUED - LIPID PANEL ( 80023) Indication:Mixed Hyperlipidemia Start:25-Jul-2017 Instruction Type:Patient Education DISCONTINUED - HEPATIC FUNCT ION PANEL (87643) Indication:Mixed Hyperlipidemia Start:25-Jul-2017 Instruction Type:Patient Education How [...] for Treatment DISCONTINUED - LIPID PANEL ( 83960) Indication:Mixed Hyperlipidemia Start:25-Jul-2017 Instruction Type:Patient Education DISCONTINUED - HEPATIC FUNCT ION PANEL (02803) Indication:Mixed Hyperlipidemia Start:25-Jul-2017 Instruction Type:Patient Education How [...] for Treatment DISCONTINUED - LIPID PANEL ( 91178) Indication:Mixed Hyperlipidemia Start:25-Jul-2017 Instruction Type:Patient Education DISCONTINUED - HEPATIC FUNCT ION PANEL (68788) Indication:Mixed Hyperlipidemia Start:25-Jul-2017 Instruction Type:Patient Education How [...] for Treatment How to access health informa [employer] online Indication:Acute pharyngitis Start:01-Sep-2014 Instruction Type:Patient Education [...] for Treatment DISCONTINUED - LIPID PANEL ( 65007) Indication:Mixed Hyperlipidemia Start:25-Jul-2017 Instruction Type:Patient Education DISCONTINUED - HEPATIC FUNCT ION PANEL (60535) Indication:Mixed Hyperlipidemia Start:25-Jul-2017 Instruction Type:Patient Education How [...] for Treatment DISCONTINUED - LIPID PANEL ( 47527) Indication:Mixed Hyperlipidemia Start:25-Jul-2017 Instruction Type:Patient Education DISCONTINUED - HEPATIC FUNCT ION PANEL (61700) Indication:Mixed Hyperlipidemia Start:25-Jul-2017 Instruction Type:Patient Education How [...] for Treatment DISCONTINUED - LIPID PANEL ( 32173) Indication:Mixed Hyperlipidemia Start:25-Jul-2017 Instruction Type:Patient Education DISCONTINUED - HEPATIC FUNCT ION PANEL (71556) Indication:Mixed Hyperlipidemia Start:25-Jul-2017 Instruction Type:Patient Education How [...] for Treatment DISCONTINUED - LIPID PANEL ( 99774) Indication:Mixed Hyperlipidemia Start:25-Jul-2017 Instruction Type:Patient Education DISCONTINUED - HEPATIC FUNCT ION PANEL (05242) Indication:Mixed Hyperlipidemia Start:25-Jul-2017 Instruction Type:Patient Education How [...] for Treatment DISCONTINUED - LIPID PANEL ( 57439) Indication:Mixed Hyperlipidemia Start:25-Jul-2017 Instruction Type:Patient Education DISCONTINUED - HEPATIC FUNCT ION PANEL (81738) Indication:Mixed Hyperlipidemia Start:25-Jul-2017 Instruction Type:Patient Education How [...] for Treatment How to Access Health Informa [employer] using Patient Portal and [employer] Apps Indication:Nonsmoker Start:13-Nov-2020 Instruction Type:Patient Education [...] for Treatment DISCONTINUED - LIPID PANEL ( 18398) Indication:Mixed Hyperlipidemia Start:25-Jul-2017 Instruction Type:Patient Education DISCONTINUED - HEPATIC FUNCT ION PANEL (37150) Indication:Mixed Hyperlipidemia Start:25-Jul-2017 Instruction Type:Patient Education How [...] Informa tion Online using Patient Portal and [employer] Apps Indication:Nonsmoker Start:13-Nov-2020 Instruction Type:Patient Education How [...] for Treatment DISCONTINUED - LIPID PANEL ( 48439) Indication:Mixed Hyperlipidemia Start:25-Jul-2017 Instruction Type:Patient Education DISCONTINUED - HEPATIC FUNCT ION PANEL (82843) Indication:Mixed Hyperlipidemia Start:25-Jul-2017 Instruction Type:Patient Education How [...] tion Online using Patient Portal and 3rd [employer] Apps Indication:Nonsmoker Start:23-Dec-2020 Instruction Type:Patient Education Patient Instructions Indication:Nonsmoker Start:13-Nov-2020 Instruction Type:Provider Instructions for Treatment How to Access Health Informa tion Online using Patient Portal and 3rd [employer] Apps Indication:Nonsmoker Start:13-Nov-2020 Instruction Type:Patient Education [...] for Treatment DISCONTINUED - LIPID PANEL ( 26325) Indication:Mixed Hyperlipidemia Start:25-Jul-2017 Instruction Type:Patient Education DISCONTINUED - HEPATIC FUNCT ION PANEL (71746) Indication:Mixed Hyperlipidemia Start:25-Jul-2017 Instruction Type:Patient Education How [...] tion Online using Patient Portal and 3rd [employer] Apps Indication:Nonsmoker Start:23-Dec-2020 Instruction Type:Patient Education Patient Instructions Indication:Nonsmoker Start:13-Nov-2020 Instruction Type:Provider Instructions for Treatment How to Access Health Informa tion Online using Patient Portal and 3rd [employer] Apps Indication:Nonsmoker Start:13-Nov-2020 Instruction Type:Patient Education [...] for Treatment DISCONTINUED - LIPID PANEL ( 62075) Indication:Mixed Hyperlipidemia Start:25-Jul-2017 Instruction Type:Patient Education DISCONTINUED - HEPATIC FUNCT ION PANEL (51505) Indication:Mixed Hyperlipidemia Start:25-Jul-2017 Instruction Type:Patient Education How [...] XRAY 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 PER PCP Reason for Visit Essential hypertensi on Premature ventricular contractions Hyperlipidemia Paroxysmal atrial fibrillation Chief Complaint XRAY flank pain/abd pain XRAY 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 PER PCP Paroxysmal atrial fibrillation Reason for Visit Essential hypertensi on Premature ventricular contractions Hyperlipidemia Paroxysmal atrial fibrillation Chief Complaint XRAY flank pain/abd pain XRAY 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 PER PCP Paroxysmal atrial fibrillation Ventricular premature depolarization Atrial fibrillation Reason for Visit Essential hypertensi on Premature ventricular contractions Hyperlipidemia Paroxysmal atrial fibrillation Chief Complaint XRAY flank pain/abd pain XRAY 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 unable to remembeer October 11, 2021 9:38am Advance Directive Response Recorded Date/ Time Advance Directives Yes October 4:21pm Living Will Yes October 22, 4:21pm Power of Ios Architect Yes October 22, 2021 4:21pm Advance Directive Response Recorded Date/ Time Name of Medical Power of Ios Architect [place] March 16, 2022 10:58am Advance Directives Yes October 4:21pm Living Will Yes March 16, 2022 1 0:58am Power of Ios Architect Yes March 16, 2022 10:58am Advance Directive Response Recorded Date/ Time Advance Directives Yes October 3:21pm Living Will Yes March 16, 2022 9 :58am Power of Ios Architect Yes March 16, 2022 9:58am Name Dates Details Immunization Registry [place] - Effective on 06/19/2023. Expiration date unspecified Effective:19-Jun-2023 Name Dates Details Immunization Registry [place] - Effective on 06/19/2023. Expiration date unspecified Effective:19-Jun-2023 Name Dates Details Immunization Registry [place] - Effective on 06/19/2023. Expiration date unspecified Effective:19-Jun-2023 Advance Directive Response Recorded Date/ Time Name of Medical Power of Ios Architect vito muñoz June 24, 2023 6:44am Advance Directives Yes October 4:21pm Living Will Yes June 24 6:44am Power of Ios Architect Yes June 24, 2023 6:44am Advance Directive Response Recorded Date/ Time Name of Medical Power of Ios Architect vito muñoz June 24, 2023 5:44am Advance Directives Yes October 3:21pm Living Will Yes June 24 5:44am Power of Ios Architect Yes June 24, 2023 5:44am Advance Directive Response Recorded Date/ Time Name of Medical Power of Ios Architect vito muñoz June 24, 2023 5:44am Advance Directives on File No Sepgurjit 2023 10:53am Name of Medical Power of Ios Architect vito jenkins October 03, 2023 10:53am Advance Directives Yes October 03, 2023 10:53am Living Will Yes October 03 10:53am Power of Ios Architect Yes October 03, 2023 10:53am Advance Directive Response Recorded Date/ Time Advance Directives on File No Chato 2023 10:53am Name of Medical Power of Ios Architect vito jenkins October 03, 2023 10:53am Advance Directives Yes October 03, 2023 10:53am Living Will Yes October 03 10:53am Power of Ios Architect Yes October 03, 2023 10:53am Advance Directive Response Recorded Date/ Time Living Will Yes October 03 11:53am Power of Ios Architect Yes October 03, 2023 11:53am Advance Directives Yes October 03, 2023 11:53am Advance Directive Response Recorded Date/ Time Living Will Yes October 03 11:53am Do you have a Healthcare Power of Ios Architect? Yes October 03, 2023 11:53am Advance Directives [...] content) DATE CREATED AUTHOR 08/22/2022 [facility] DATE CREATED AUTHOR AUTHOR'S ORGANIZ ATION 07/18/2025 [facility] Care Teams (unrecognized sec tion and content) Team Status: Active Member Role Status Dates Lakisha Spears SCREW DOWN, SCREW DOWN-C Family Provider Active No Primary Care Physician Primary Care Provider Active Team Status: Inactive Member Role Status Dates No Primary Care Physician Primary Care Provider, Refer ring Provider Active Dr. Kp Lopez MD Active Cassandra Franco PA, PA Attending Provider Active Team Status: Inactive Member Role Status Dates No Primary Care Physician Primary Care Provider Active Dian Duron SCREW DOWN-C Attending Provider Active Team Status: Active Member Role Status Dates Lakisha Whit SCREW DOWN, SCREW DOWN-C Family Provider Active Dian Duron SCREW DOWN-C Primary Care Provider Active Team Status: Inactive Member Role Status Dates No Primary Care Physician Primary Care Provider Active Dr. Kp Lopez MD Attending Provider Active Team Status: Active Member Role Status Dates No Primary Care Physician Primary Care Provider Active Dian Duorn NP-C Attending Provider, Referring Pr ovider Active Team Status: Inactive Member Role Status Dates Dian Duron SCREW DOWN-C Primary Care Provider Active Dr. Slade Lee , DO Emergency Provider Active Team Status: Inactive Member Role Status Dates No Primary Care Physician Primary Care Provider Active Dian Duron NP-C Attending Provider, Referring Pr ovider Active Team Status: Inactive Member Role Status Dates Dian Duron SCREW DOWN-C Primary Care Provider Active Dr. Slade Lee DO Attending Provider, Alexandra acevedo Active Team Status: Inactive Member Role Status Dates Dian Oliverio , SCREW DOWN-C Primary Care Provider, Referring Provider Active Cassandra Franco PA, PA Attending Provider Active Team Status: Inactive Member Role Status Dates Dain Duron , SCREW DOWN-C Primary Care Provider Active Dr. Kp Lopez MD Attending Provider Active Team Status: Active Member Role Status Dates Dian Oliverio , SCREW DOWN-C Primary Care Provi josefina, Attending Provider, Referring Provider Active Team Status: Inactive Member Role Status Dates Dian Oliverio , SCREW DOWN-C Primary Care Provi josefina, Attending Provider, Referring Provider Active Team Status: Inactive Member Role Status Dates Dian Duron , SCREW DOWN-C Primary Care Provider Active Cassandra Franco PA, PA Attending Provider, Referr ing Provider Active Team Status: Active Member Role Status Dates Dian Duron , SCREW DOWN-C Primary Care Provider Active Dr. Kp Lopez MD Attending Provider Active Team Status: Active Member Role Status Dates Dian Duron , SCREW DOWN-C Primary Care Provider Active Dr. Kp Lopez MD Attending Provider, Other Provide r Active Team Status: Active Member Role Status Dates Dian Duron , SCREW DOWN-C Primary Care Provider Active Dr. Kp Lopez MD Attending Provider, Referring Provider, Other Provider Active Team Status: Active Member Role Status Dates Dian Duron , SCREW DOWN-C Primary Care Provider Active Dr. Kp Lopez MD Referring Provider, Other Provide r Active Dr. Mariusz Harris DO Attending Provider Active Team Status: Inactive Member Role Status Dates Dian Duron , SCREW DOWN-C Primary Care Provider Active Dr. Kp Lopez MD Attending Provider, Referring Pro vider Active Team Status: Inactive Member Role Status Dates No Primary Care Physician Referring Provider Active Dr. Kp Lopez MD Attending Provider Active Dian Duron , SCREW DOWN-C Primary Care Provider Active Team Status: Active Member Role Status Dates Dian Duron , SCREW DOWN-C Primary Care Provider Active Dr. Kp Lopez MD Attending Provider, Referring Pro vider Active Team Status: Active Member Role Status Dates Dian Duron , SCREW DOWN-C Primary Care Provider Active Team Status: Inactive Member Role Status Dates Diandayne Duron , SCREW DOWN-C Primary Care Provider Active Start: August 06, 2024 End: August 06, 2024 Dian Duron , SCREW DOWN-C Referring Provider Active Start: August 06, 2024 End: August 06, 2024 Dr. Bro Deleon MD Attending Provider Active Start: August 06, 2024 End: August 06, 2024 Team Status: Inactive Member Role Status Dates Dian Duron , SCREW DOWN-C Primary Care Provider Active Start: November 11, 2024 End: November 11, 2024 Dian Duron , SCREW DOWN-C Attending Provider Active Start: November 11, 2024 End: November 11, 2024 Dian Duron , SCREW DOWN-C Referring Provider Active Start: November 11, 2024 End: November 11, 2024 Team Status: Inactive Member Role Status Dates Diandayne Duron , SCREW DOWN-C Primary Care Provider Active Start: December 19, 2024 End: December 19, 2024 Dian Duron , SCREW DOWN-C Attending Provider Active Start: December 19, 2024 End: December 19, 2024 Diandayne Duron , SCREW DOWN-C Referring Provider Active Start: December 19, 2024 End: December 19, 2024 Team Status: Inactive Member Role Status Dates Dian Duron , SCREW DOWN-C Primary Care Provider Active Start: January 13, 2025 End: January 13, 2025 Dian Duron , SCREW DOWN-C Referring Provider Active Start: January 13, 2025 End: January 13, 2025 TIARRA Cowan Attending Provider Active St art: January 13, 2025 End: January 13, 2025 Team Status: Inactive Member Role Status Dates Dian Duron , SCREW DOWN-C Primary Care Provider Active Start: February 05, 2025 End: February 05, 2025 Dr. Bro Deleon MD Attending Provider Active Start: February 05, 2025 End: February 05, 2025 Dr. Bro Deleon MD Referring Provider Active Start: February 05, 2025 End: February 05, 2025 Team Status: Inactive Member Role Status Dates Diandayne Duron , SCREW DOWN-C Primary Care Provider Active Start: February 14, 2025 End: February 14, 2025 Dian Duron , SCREW DOWN-C Referring Provider Active Start: February 14, 2025 [...] BE BASED ON THE PRIMARY CLINICAL RECORDS. [facility] [employer] [facility]. provides no warranty or guarantee of the accuracy or completeness of information in this document.
[2025-08-13] VITALS (7 sets, daily range): BP systolic 119–156; BP diastolic 63–72; PULSE 71–85; RESP 16–18; TEMP 36.3–36.8; O2SAT 96–98
--- NOTE | 2025-08-13 05:35 | RAD_ITS ---
PROCEDURE: CHEST PA AND LATERAL 08/13/2025 REASON FOR EXAM: PTX TECHNIQUE: Procedure Code: RADCXR Modality: DX Procedure: CHEST PA AND LATERAL COMPARISON: 08/12/2025 CT FINDINGS: Right apical pneumothorax with distance from the pleura and is lung 3 cm. Reduced right lung volume. Faint right lower lung zone patchy consolidation. Blunting of the right costophrenic recess by minimal pleural effusion/reaction. No left pneumonic consolidation. Stable cardiac size. Stable aortic calcifications. Right 5th and 6th ribs fracture is again noted. RAD/Chest PA and Lateral IMPRESSION: Redemonstrated right pneumothorax, slightly increased since the prior study Reading [facility]
--- NOTE | 2025-08-13 10:05 | HP.PCM_ITS ---
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 She notes walking to her car in the parking lot and step off of a bank and lost her balance and fell on her right side. She stated she went home to take a warm shower and continued to feel significant amount of pain which prompted her to come to the ED. She denies having rib fractures previously or previous pneumothorax. She denies any history of lung disease. She is on Eliquis for A fib. Chest CT in the ED demonstrated: IMPRESSION: 1. Acute nondisplaced fractures of the right lateral 5th and 6th ribs. 2. Small right pneumothorax and trace pleural fluid/hemothorax. 3. Enlarged heterogeneous multinodular thyroid gland. 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 5. Multiple hepatic cysts. [facility] Medical History Thyroid nodule Wears glasses Cluster headache Vertigo History of pain when walking History of echocardiogram History of stress test Hypertension Cardiology follow-up encounter History of irregular heartbeat Essential hypertension Cancer Alcohol use Thyroid disease Arthritis Back pain Gastric reflux History of IBS Former smoker Shortness of breath on exertion History of skin cancer Arthritis Hyperlipidemia Paroxysmal atrial fibrillation Home Medications ?Medication ?Instructions ?Recorded ?Last Taken ?Type calcium 600 mg (as 1 cap PO DAILY 03/16/22 Unkn own History carbonate)-vitamin D3 10 mcg (400 unit) capsule cranberry 500 mg capsule 500 mg PO DAILY 03/16/22 Unk nown History lactobacillus combination no.4 3 3,000 mmu cells PO DA MEGAN 03/16/22 Unknown History billion cell capsule (Probiotic) multivitamin 1 tab PO DAILY 03/16/22 Unkn own History pitavastatin calcium 1 mg tablet 1 mg PO DAILY 2 Unknown History (Livalo) apixaban 5 mg tablet (Eliquis) 5 mg PO BID #180 tabs 0 11/27/24 Unknown Rx amlodipine 5 mg tablet 5 mg PO DAILY #90 tabs 12/16 Unknown Rx metoprolol succinate 50 mg 50 mg PO DAILY #90 tabs Unknown Rx tablet,extended release 24 hr Allergy/AdvReac Type Severity Reaction Status Date / Time Penicillins Allergy Unknown Verified 08/12/25 15:35 Family History Father aortic aneurysm Heart disease Sister Seizures Brother coronary stent Hearing loss Heart disease Diabetes Mother Myocardial infarction Anesthesia complication Hearing loss Heart disease Surgical History History of cardiac catheterization History of hysteroscopy Hx of right cataract extraction Hx of left cataract extraction History of open reduction and internal fixation (ORIF) procedure Hx laparoscopic cholecystectomy History of bilateral breast reduction surgery History of left heart catheterization (10/11/21) H/O bilateral hip replacements H/O partial thyroidectomy Social History household members: none current occupational status: retired Smoking Status: Former smoker alcohol intake: current alcohol intake frequency: a few times a month Alcohol type: wine substance use type: does not use caffeine: Yes Type: carbonated beverages what type of physical activity do you participate in: walking frequency: 1-2 times per week duration: 15-30 minutes/day seatbelt use: always do you feel safe at home: Yes ROS Constitutional Constitutional: Reports systems reviewed and no addt'l complaints, except as documented Eyes Eyes: Reports systems reviewed and no addt'l complaints, except as documented ENT HEENT: Reports systems reviewed and no addt'l complaints, except as documented Cardiovascular Cardiovascular: Reports systems reviewed and no addt'l complaints, except as documented Respiratory/Chest Respiratory/Chest: Reports systems reviewed and no addt'l complaints, except as documented Gastrointestinal Gastrointestinal: Reports systems reviewed and no addt'l complaints, except as documented Genitourinary Genitourinary: Reports systems reviewed and no addt'l complaints, except as documented Musculoskeletal Musculoskeletal: Reports systems reviewed and no addt'l complaints, except as documented Integumentary Integumentary: Reports systems reviewed and no addt'l complaints, except as documented Neurologic Neurologic: Reports systems reviewed and no addt'l complaints, except as documented Psychiatric Psychiatric: Reports systems reviewed and no addt'l complaints, except as documented Endocrine Endocrinology: Reports systems reviewed and no addt'l complaints, except as documented Hematologic/Lymphatic Hematologic/Lymphatic: Reports systems reviewed and no addt'l complaints, except as documented Allergic/Immunologic Allergic/Immunologic: Reports systems reviewed and no addt'l complaints, except as documented Vital Signs Vital Signs Vital Signs: 08/12/25 15:32 08/12/25 15:58 08/12/25 15:59 Temperature 98.1 F Temperature Source Oral Pulse Rate 112 H Pulse Strength Respiratory Rate 20 H Respiratory Effort Short of Breath Short of Breath Respiratory Depth Respiratory Pattern Blood Pressure 134/117 H Blood Pressure Mean 122 Blood Pressure Source Blood Pressure Position Blood Pressure Location Pulse Ox 94 93 Oxygen Delivery Method Room Air Room Air Oxygen Flow Rate (L/min) 08/12/25 16:17 08/12/25 17:31 08/12/25 18:27 Temperature 97.9 F Temperature Source Pulse Rate 80 84 Pulse Strength Respiratory Rate 12 18 Respiratory Effort Respiratory Depth Respiratory Pattern Blood Pressure 125/65 H 125/65 H Blood Pressure Mean 85 85 Blood Pressure Source Blood Pressure Position Blood Pressure Location Pulse Ox 100 100 100 Oxygen Delivery Method Nasal Cannula Nasal Cannula Oxygen Flow Rate (L/min) 3 3 08/12/25 19:53 08/12/25 21:32 08/12/25 22:00 Temperature 97.6 F L Temperature Source Oral Pulse Rate 76 Pulse Strength Normal (2+) Respiratory Rate 19 H Respiratory Effort Normal Non-Labored Respiratory Depth Normal Respiratory Pattern Normal Blood Pressure 132/51 H Blood Pressure Mean 78 Blood Pressure Source Monitor Blood Pressure Position Semi-Fowlers Blood Pressure Location Right Arm Pulse Ox 96 Oxygen Delivery Method Nasal Cannula Nasal Cannula Oxygen Flow Rate (L/min) 3 3 08/13/25 02:27 08/13/25 02:30 08/13/25 08:12 Temperature 97.9 F Temperature Source Oral Pulse Rate 71 Pulse Strength Respiratory Rate 16 Respiratory Effort Normal Non-Labored Respiratory Depth Normal Respiratory Pattern Normal Blood Pressure 119/72 Blood Pressure Mean 87 Blood Pressure Source Monitor Blood Pressure Position Semi-Fowlers Blood Pressure Location Right Forearm Pulse Ox 98 Oxygen Delivery Method Nasal Cannula Nasal Cannula Nasal Cannula Oxygen Flow Rate (L/min) 2 2 2 08/13/25 08:15 08/13/25 08:15 08/13/25 08:22 Temperature 97.4 F L Temperature Source Temporal Pulse Rate 77 Pulse Strength Normal (2+) Respiratory Rate 17 Respiratory Effort Normal Non-Labored Respiratory Depth Normal Respiratory Pattern Normal Blood Pressure 140/66 H Blood Pressure Mean 90 Blood Pressure Source Monitor Blood Pressure Position Semi-Fowlers Blood Pressure Location Right Arm Pulse Ox 96 Oxygen Delivery Method Nasal Cannula Nasal Cannula Oxygen Flow Rate (L/min) 2 2 Weight Weight: 230 lb 9.656 oz Body Mass Index (BMI) 38.3 Physical Exam Const alert, oriented x3 and no apparent distress HEENT normocephalic and head/scalp atraumatic Eyes PERRL Neck full ROM Chest inspection of chest normal Resp normal respiratory effort Auscultation: diminished lung sounds right ([place]) Cardio regular rate and regular rhythm GI normal to inspection, nondistended, normoactive bowel sounds no CVA tenderness Back/Spine no CVA tenderness Extremity normal to inspection Skin no rashes or lesions noted Neuro no focal motor deficits and no sensory deficits noted Psych mental status grossly normal and thought process normal Results Lab / Micro Data 08/12/25 15:49 08/12/25 15:49 Labs: Laboratory Results - last 24 hr 08/12/25 15:49: WBC 9.4, RBC 4.87, Hgb 15.6 H, Hct 45.6, MCV 93.6, MCH 32.0, MCHC 34.2, RDW Std Deviation 47.0 H, RDW Coeff of Jarrod 13.7, Plt Count 272, MPV 10.5, Immature Gran % (Auto) 0.700, Neut % (Auto) 67.5, Lymph % (Auto) 18.7 L, M gonsalo % (Auto) 11.9 H, Eos % (Auto) 0.7, Baso % (Auto) 0.5, Absolute Neuts (auto) 6.3, Absolute Lymphs (auto) 1.75, Nucleated RBC % 0, Sodium 141, Potassium 4.0, Chloride 102, Carbon Dioxide 25.3, Anion Gap 13, BUN 24 H, Creatinine 1.07, Estim Creat Clear Calc 51.48, Est GFR (MDRD) Non-Af 53 L, BUN/Creatinine Ratio 22.1 H, Glucose 127 H, Calcium 9.5, Total Bilirubin 0.73, AST 29, ALT 23, Alkaline Phosphatase 90, Total Protein 7.2, Albumin 4.1, Globulin 3.2, Albumin/Globulin Ratio 1.3 Imaging Radiology Impression Chest CT 08/12/25 16:05 IMPRESSION: 1. Acute nondisplaced fractures of the right lateral 5th and 6th ribs. 2. Small right pneumothorax and trace pleural fluid/hemothorax. 3. Enlarged heterogeneous multinodular thyroid gland. 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 5. Multiple hepatic cysts. Reading Location: [facility] Chest X-Ray 08/13/25 05:35 IMPRESSION: Redemonstrated right pneumothorax, slightly increased since the prior study Reading [id number] Assessment & Plan Assessment/Plan (1) Pneumothorax: (2) Fracture of rib: (3) Fall: PLAN: Plan I am seeing this patient in conjunction with Dr. Goyal. He will independently evaluate this patient. 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 CT of chest confirms that right lateral 5th and 6th rib fractures were present. A small right pneumothorax was noted. CXR was completed this morning demonstrating a slight increase in the apical pneumothorax. Patient denies any increased shortness of breath. She notes her pain is well controlled with pain medication. She is on 2L oxygen via nasal canula. We will plan to keep the patient over night for continued observation. Plan to obtain CXR around 2 pm to recheck pneumothorax. We will hold off on placing a chest tube at this time. Patient has had the opportunity to ask and have questions answered. Patient verbally understands and agrees with the proposed plan. We will continue to hold her blood thinner at this time. Charges/Coding Visit Charges Inpatient E&M: 46789 Init Hosp L2
[2025-08-13] MEDS: Metoprolol(XL)Succ 50 MG Tablet PO (12:06)
--- NOTE | 2025-08-13 12:30 | CASEMGMT ---
SW Assessment: Face to Face with pt for initial transition planning/care coordination assessment. SW introduced self and role at [facility], pt voices understanding and consents to assessment. Pt is A&O x4 and answers all questions appropriately at this time. Care providers, pharmacy, and demographics verified/updated. Admitting Dx: Rib fx, pneumothorax PCP: [facility]- reports that she hasn't seen her yet, as she is a new pt d/t her previous PCP leaving the practice Specialists:Jessica- cardiology, Pancho- thyroid, Carmen ortho-hip, dermatology Preferred Pharmacy: [facility] Insurance: [employer] Prescription Benefit: yes LNOK: brother, nephew, and two nieces, but declines to provide names or numbers, reporting that friend Peg would notify them Living Arrangements: Pt lives alone in a ranch home with no steps to enter. Pt lives alone with cat. Pt reports that she is independent with all ADL and IADL. 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 Transportation: Pt drives self and denies concerns with transportation. DME: none HHC/SNF: none Pt states no concerns with going home at time of dc. Pt states no further concerns/needs. SW to follow. Advised pt to ask SW if any further questions/concerns/needs arise, voices understanding. Pt Goal: Home at prior level of function Plan: Home, no needs SUSIE Irene
--- NOTE | 2025-08-13 14:00 | RAD_ITS ---
PROCEDURE: CHEST PA AND LATERAL 08/13/2025 REASON FOR EXAM: RIGHT APICAL PNEUMOTHORAX TECHNIQUE: Procedure Code: RADCXR Modality: DX Procedure: CHEST PA AND LATERAL COMPARISON: August 13, 2025 FINDINGS: Hardware: None Heart: Normal Mediastinum: There are atherosclerotic calcifications of the thoracic aorta. Lungs: The left lung is clear. The visceral pleura is retracted from the apex 6 cm while on prior it was 3 cm. Bones: Mild curvature thoracolumbar spine to the left. Lateral rib fractures are better seen on prior CT. RAD/Chest PA and Lateral IMPRESSION: Pneumothorax on the right side has increased. Approximately 35% pneumothorax ( previously about 20%) Reading Location: [id number]
--- NOTE | 2025-08-13 14:45 | CASEMGMT ---
SCHMIDT Met with patient to complete SCHMIDT form. SCHMIDT form and its content were verbally explained and patient's questions were answered to the best of my ability.? Patient voiced understanding and signed SCHMIDT form.? Patient provided a copy of signed SCHMIDT form and original placed in patient's chart.? Patient had no further questions. Yelena Abernathy, Discharge Planning Asst
--- NOTE | 2025-08-13 16:50 | RAD_ITS ---
PROCEDURE: CHEST PA AND LATERAL 08/13/2025 REASON FOR EXAM: CHEST TUBE PLACEMENT TECHNIQUE: Procedure Code: RADCXR Modality: DX Procedure: CHEST PA AND LATERAL COMPARISON: Earlier on the same day. FINDINGS: Questionable retraction of the small gauge thoracostomy tube. On 1 of the AP views, only 2.3 cm of the distal tip of the tube appears to be within the right thoracic cavity. Please correlate clinically. Chronic bronchopulmonary changes are noted within the lungs. The cardiac silhouette appears stable in size. Degenerative changes are noted within both shoulders and thoracic spine. RAD/Chest PA and Lateral IMPRESSION: As above. Reading Location: [id number]
--- NOTE | 2025-08-13 17:40 | RAD_ITS ---
PROCEDURE: CHEST 1 VIEW (PORTABLE) 08/13/2025 REASON FOR EXAM: CHEST TUBE PLACEMENT TECHNIQUE: Frontal view of the chest. FINDINGS: Hardware: Heart: Lungs: Bones: Reading Location: [id number]
--- NOTE | 2025-08-13 17:55 | OP.PCM_ITS ---
Procedures Hospitalists Procedures: 84638 Insertion of Chest Tube Operative Report (Standard) Operative Information Date of Procedure: 08/13/25 Pre-Operative Diagnosis: Right pneumothorax Post-Operative Diagnosis: Same Surgery/Procedure Performed: Right sided chest tube placement database marketing analyst: No Type of Anesthesia: Local Procedure Start Time: 17:00 Procedure Stop Time: 17:40 Select all DRAINS/GRAFTS/IMPLANTS that apply: Implanted device Implanted device details: Chest tube Estimated Blood Loss: 10 cc Specimen collected: No Description of surgery: The patient is a 79-year-old female who had a fall yesterday afternoon and subsequently broke several ribs on the right. She had a small tiny apical pneumothorax on chest CT. She was subsequently admitted. Since the pneumothorax was so small and she was clinically doing so well in the emergency room, as well as the fact that she was on Eliquis, we elected to try to manage the tiny pneumothorax without chest tube placement. Chest x-ray this morning showed no pneumothorax to be slightly larger. We decided to repeat another chest x-ray this afternoon. This unfortunately showed further increase in the right sided pneumothorax. At this point we recommended right-sided chest tube placement. We discussed the details of the planned procedure including risk benefits and alternatives. She wished to proceed. The patient was positioned on some modified left lateral decubitus position to help expose the right lateral chest wall. Patient is obese which makes palpation of the ribs themselves essentially not possible. A location approximately the mid axillary line and near the expected inframammary crease was prepped and draped in the usual manner. Local anesthetic was infiltrated. The pneumothorax kit was utilized. The needle and catheter complex was then inserted what felt to be between the ribs. This was advanced further until what was felt to be within the chest as there appeared to be some return of air. The small bore chest tube was then threaded over the needle. The needle was then extracted. There appeared to be lung sounds coming from the tube. This was then sutured in place and connected to the Thora clocks. There was some bloody material returned. A postprocedure chest x-ray showed the catheter to be only a few centimeters into the chest cavity and more importantly the right lung did not seem to be reexpanded. At this point we decided to place another chest tube. Due to her body habitus, the second chest tube was placed anteriorly as I felt this may allow the closest distance between the skin and the ribs to allow chest tube placement. The anterior chest on the right was prepped and draped in the usual manner. Local anesthetic was infiltrated. There was positive return of air with aspiration. Another chest tube kit was obtained and this tube was inserted. There was positive return of air. Once this was performed the catheter was then threaded over the needle and then the chest tube was sutured to the skin. More pronounced breath sounds were noted. The chest tube was then connected to the Pleur-evac system. There was immediate return of air once hooked to suction. A postprocedure chest x-ray confirmed that the right lung was expanded and the chest tube clearly seem to be within the chest cavity. Dressing was applied. Prior to taking the chest x-ray, the previous chest tube was removed. The patient tolerated the procedure well Surgical Findings: Right-sided pneumothorax Complications Complications: No Admit VTE Documentation VTE Present on Admission: No VTE Mechan Device Prophylaxis: SCD's VTE Pharm Prophylaxis ordered?: Yes Reason prophylaxis not ordered: Treatment Not Indicated
[2025-08-14] VITALS (10 sets, daily range): BP systolic 121–142; BP diastolic 57–63; PULSE 69–75; RESP 16; TEMP 36.2–36.6; O2SAT 89–100
--- NOTE | 2025-08-14 05:05 | RAD_ITS ---
PROCEDURE: CHEST PA AND LATERAL 08/14/2025 REASON FOR EXAM: PTX TECHNIQUE: Procedure Code: RADCXR Modality: DX Procedure: CHEST PA AND LATERAL COMPARISON: 08/13/2025 FINDINGS: Right chest tube is seen ending in the right lower lung zone. Regressed right apical pneumothorax since the prior study. Faint bilateral basal atelectasis are seen. Stable cardiac size and aortic calcifications. No effusion. Elevated right hemidiaphragm. Stable osseous structures. RAD/Chest PA and Lateral IMPRESSION: Regressed right apical pneumothorax since the prior study. Follow-up is advise d [facility]
--- NOTE | 2025-08-14 08:08 | PN.SURG_ITS ---
Documented by User: Traci MAYEN PA-C 08/14/25 10:21 Objective Data Objective Data Vital Signs: Vital Signs Temp Pulse Resp BP Pulse Ox O2 Del Method O2 Flow Rate 97.8 F 72 16 142/63 H 100 Nasal Cannula 2 08/14/25 03:10 08/14/25 03:10 08/14/25 03:10 08/14/25 03:10 08/14/25 03:10 08/14/25 03:10 08/14/25 03:10 Oxygen Flow Rate (L/min) 2 Oxygen Delivery Method Nasal Cannula Weight: 230 lb 9.656 oz Body Mass Index (BMI) 38.3 Intake & Output: Intake and Output for Last 24 Hours 08/12/25 08/13/25 08/14/25 23:59 23:59 23:59 Intake Total 250 / 500 400 / 400 Output Total 175 / 175 Balance 250 / 380 225 / 225 Lab / Micro Data 08/12/25 15:49 08/12/25 15:49 Radiography Diagnostic Testing: Radiology Impression Chest X-Ray 08/13/25 14:00 IMPRESSION: Pneumothorax on the right side has increased. Approximately 35% pneumothorax (previously about 20%) Reading Location: [id number] Chest X-Ray 08/13/25 16:50 IMPRESSION: As above. Reading Location: [id number] Chest X-Ray 08/14/25 05:05 IMPRESSION: Regressed right apical pneumothorax since the prior study. Follow-up is advised [facility] Assessment & Plan Assessment/Plan (1) Pneumothorax: (2) Fracture of rib: (3) Fall: Charges/Coding Visit Charges Inpatient E&M: 22279 Subs Hosp L2 Documented by User: Dr. Jordi Goyal MD 08/14/25 10:01 Subjective Subjective Patient seen and evaluated on rounds this morning. Patient doing well. She denies any shortness of breath. Chest x-ray this morning shows improvement to the pneumothorax since chest tube placement late yesterday afternoon. No visible airleak Objective Data Lab / Micro Data 08/12/25 15:49 08/12/25 15:49 Physical Exam Narrative She is alert and oriented x 3. She is in no acute distress. Chest tube appears to be in appropriate positioning. No airleak noted. Chest tube suction to -20 Assessment & Plan Assessment/Plan (1) Pneumothorax: (2) Fracture of rib: (3) Fall: PLAN: Plan The patient is a 79-year-old female status post a recent fall and subsequent fractures of 2 right sided ribs along with an associated pneumothorax. Chest tube placement was performed yesterday afternoon as her small pneumothorax continued to increase in size. Pneumothorax appears to be resolved. Recommend continued -20 suction for now[address] Will likely place her to waterseal later this afternoon. Potentially remove chest tube tomorrow
[2025-08-14] MEDS: Metoprolol(XL)Succ 50 MG Tablet PO (08:38)
--- NOTE | 2025-08-14 10:01 | PCM.PN.SRG ---
Objective Data Objective Data Vital Signs: Vital Signs Temp Pulse Resp BP Pulse Ox O2 Del Method O2 Flow Rate 97.4 F L 69 16 131/57 H 94 Nasal Cannula 2 08/14/25 09:01 08/14/25 09:01 08/14/25 09:01 08/14/25 09:01 08/14/25 09:07 08/14/25 09:07 08/14/25 09:07 Oxygen Flow Rate (L/min) 2 Oxygen Delivery Method Nasal Cannula Weight: 230 lb 9.656 oz Body Mass Index (BMI) 38.3 Intake & Output: Intake and Output for Last 24 Hours 08/12/25 08/13/25 08/14/25 23:59 23:59 23:59 Intake Total 250 / 500 400 / 400 Output Total 175 / 175 Balance 250 / 380 225 / 225 Lab / Micro Data 08/12/25 15:49 08/12/25 15:49 Radiography Diagnostic Testing: Radiology Impression Chest X-Ray 08/13/25 14:00 IMPRESSION: Pneumothorax on the right side has increased. Approximately 35% pneumothorax (previously about 20%) Reading Location: [id number] Chest X-Ray 08/13/25 16:50 IMPRESSION: As above. Reading Location: [id number] Chest X-Ray 08/14/25 05:05 IMPRESSION: Regressed right apical pneumothorax since the prior study. Follow-up is advised [facility]
--- NOTE | 2025-08-14 16:49 | PCM.DC.SUM ---
Providers Date of Admission: 08/13/25 Primary Care Physician: Dr. Yuridia Kate MD Reason For Visit: RIB FRACTURES/PNEUMOTHORAX Diagnosis Discharge Diagnosis (1) Pneumothorax: Status: Acute Code(s): J93.9 - Pneumothorax, unspecified (2) Fracture of rib: Status: Acute Code(s): S22.39XA - Fracture of one rib, unspecified side, initial encounter for closed fracture (3) Fall: Status: Acute Code(s): W19.XXXA - Unspecified fall, initial encounter Plan The patient is a 79-year-old female status post a recent fall and subsequent fractures of 2 right sided ribs along with an associated pneumothorax. Chest tube placement was performed yesterday afternoon as her small pneumothorax continued to increase in size. Pneumothorax appears to be resolved. Recommend continued -20 suction for [address] [facility]. Potentially remove chest tube tomorrow Medications at Discharge Home Medications calcium 600 mg (as carbonate)-vitamin D3 10 mcg (400 unit) capsule 1 cap PO DAILY 03/16/22 cranberry 500 mg capsule 500 mg PO DAILY 03/16/22 lactobacillus combination no.4 3 billion cell capsule (Probiotic) 3,000 mmu cells PO DAILY 03/16/22 multivitamin 1 tab PO DAILY 03/16/22 pitavastatin calcium 1 mg tablet (Livalo) 1 mg PO DAILY 03/16/22 apixaban 5 mg tablet (Eliquis) 5 mg PO BID #180 tabs 11/27/24 amlodipine 5 mg tablet 5 mg PO DAILY #90 tabs 12/16/24 metoprolol succinate 50 mg tablet,extended release 24 hr 50 mg PO DAILY #90 tabs 04/09/25 oxycodone 5 mg tablet 5 mg PO Q8H PRN pain 3 days #10 tabs 08/14/25 Hospital Course Procedures - (Right sided chest tube placement) Summary of Care Provided Minutes Spent on Discharge: 15 Hospital Course: The patient is a 79-year-old female who accidentally stepped off a curb on the date of admission and subsequently fell onto her right flank. In the process she broke 2 ribs and developed a very tiny pneumothorax. She was seen in the emergency room and was subsequently admitted. Due to the very small size of the pneumothorax, we elected to take a conservative approach to management of the pneumothorax especially in light of the fact that she was on Eliquis. We obtained a repeat chest x-ray the next morning which showed the pneumothorax to be slightly larger. Another repeat chest x-ray later in the day showed further increase in pneumothorax size. At this point it was decided to place a right-sided chest tube. This was performed and the right lung reexpanded. The chest tube was then returned to [facility] after 24 hours of -20 suction. Repeat chest x-ray was performed the following morning, Physical Exam Const alert, oriented x3 and no apparent distress Weight / BMI Weight Weight: 230 lb 9.656 oz Body Mass Index (BMI) 38.3 ABG / Lab / Microbiology Data 08/12/25 15:49 08/12/25 15:49 Radiography Diagnostic Testing: Radiology Impression Chest X-Ray 08/13/25 16:50 IMPRESSION: As above. Reading Location: [id number] Chest X-Ray 08/14/25 05:05 IMPRESSION: Regressed right apical pneumothorax since the prior study. Follow-up is advised Reading [facility] Instructions Discharge Activity: Return to Normal Activity Call your doctor if you observe: Fever of 101 or Higher, Shortness of breath and Chest pain Remove Dressing in: 3 days Cleanse incision/area with: Soap & Water DC O2, CPAP, BIPAP Needs Home O2 Discharge instructions: No DC home with Oxygen: No Meaningful Use Info Meaningful Use Meaningful Use Diagnoses (Choose all that apply): None applicable Discharge Plan Admission Admit Date/Time: 08/13/25 16:11 Primary Reason for Your Visit: Right pneumothorax Attending Provider: Jordi Goyal Primary Care Provider: Yuridia Kate Discharge Orders/Prescriptions Prescriptions: New oxycodone 5 mg tablet 5 mg PO Q8H PRN (Reason: pain) 3 Days Qty: 10 0RF Continued multivitamin Tablet 1 tab PO DAILY cranberry 500 mg Capsule 500 mg PO DAILY Rx Instructions: administer with meals calcium carbonate-vitamin D3 600 mg-10 mcg (400 unit) Capsule 1 cap PO DAILY pitavastatin calcium [Livalo] 1 mg Tablet 1 mg PO DAILY Probiotic 3 billion cell Capsule 3,000 mmu cells PO DAILY Rx Instructions: administer with a meal Eliquis 5 mg tablet 5 mg PO BID Qty: 180 3RF amlodipine 5 mg tablet 5 mg PO DAILY Qty: 90 3RF metoprolol succinate 50 mg tablet extended release 24 hr 50 mg PO DAILY Qty: 90 3RF Referrals / Follow Up: Yuridia Kate MD [Primary Care Provider, Internal Medicine]
[2025-08-15] VITALS (8 sets, daily range): BP systolic 104–126; BP diastolic 52–88; PULSE 71–74; RESP 16; TEMP 36.4–36.7; O2SAT 93–98
--- NOTE | 2025-08-15 06:36 | PCM.PN.SRG ---
Subjective Subjective Patient seen and evaluated during a.m. rounds. She was initially not seen in her room as she was down in radiology obtaining a formal chest x-ray. She denies any shortness of breath but states that she becomes somewhat breathy after longer conversations. She reports having to clear her throat due to some drainage. She denies any significant chest pain related to her rib fractures. She states that she is able to use her spirometer and obtain 1500 mL regularly. Objective Data Objective Data Vital Signs: Vital Signs Temp Pulse Resp BP Pulse Ox O2 Del Method O2 Flow Rate 98.1 F 71 16 126/61 H 98 Nasal Cannula 2 08/15/25 03:30 08/15/25 03:30 08/15/25 03:30 08/15/25 03:30 08/15/25 03:30 08/15/25 03:30 08/15/25 03:30 Oxygen Flow Rate (L/min) 2 Oxygen Delivery Method Nasal Cannula Weight: 230 lb 9.656 oz Body Mass Index (BMI) 38.3 Intake & Output: Intake and Output for Last 24 Hours 08/13/25 08/14/25 08/15/25 23:59 23:59 23:59 Intake Total 250 / 500 1500 / 1500 Output Total 175 / 175 Balance 250 / 380 1325 / 1325 Lab / Micro Data 08/12/25 15:49 08/12/25 15:49 Physical Exam Const oriented x3 and no apparent distress Chest Chest Narrative: Significant ecchymotic changes to patient's right lateral chest wall. Resp Resp Narrative: Nonlabored, vital capacity demonstrated at just over 1500 mL on spirometer, no consistent air leak noted on chest tube (possible slight leak during period of coughing), drainage to chest tube is primarily serosanguineous. Assessment & Plan Assessment/Plan (1) Pneumothorax: (2) Fracture of rib: (3) Fall: PLAN: Plan The patient is a 79-year-old female status post a recent fall and subsequent fractures of 2 right sided ribs along with an associated pneumothorax. Unfortunately although patient was placed to waterseal yesterday with persistent apical pneumothorax was noted today. I do not have evidence that the lung is leaking in any way but had hoped for complete expansion so I placed her back to suction at -20 cm water. There is no egress of air. Patient was encouraged to continue regular use of her spirometer and was advised to try to increase her protein intake. To this minor point I provided her with some protein supplements. Repeat chest x-ray was obtained this afternoon. If this shows improvements would plan to waterseal overnight so patient is potentially able to undergo chest tube removal tomorrow. Chest x-ray is pending for tomorrow morning. Bro Deleon MD General Surgery Endocrine Surgery Pager: [facility] [place] [facility] [address] [place] [address], [facility], [address] [place] [id number] Office: [phone] Charges/Coding Visit Charges Inpatient E&M: 27283 Subs Hosp L2
--- NOTE | 2025-08-15 06:42 | RAD_ITS ---
PROCEDURE: CHEST PA AND LATERAL 08/15/2025 REASON FOR EXAM: RIGHT PNEUMOTHORAX TECHNIQUE: Procedure Code: RADCXR Modality: DX Procedure: CHEST PA AND LATERAL COMPARISON: August 14, 2025 FINDINGS: Right midlung pigtail drainage catheter with persistent, tiny, right apical pneumothorax which is stable to slightly improved over the interval. Coarse pulmonary markings bilaterally with biapical pleural thickening. Atheromatous changes of the aorta without cardiomegaly. Degenerative changes of the shoulders and spine. RAD/Chest PA and Lateral IMPRESSION: Resolving right-sided pneumothorax, stable to slightly improved with stable rig ht chest tube. Reading Location: [facility]
[2025-08-15] MEDS: Metoprolol(XL)Succ 50 MG Tablet PO (09:23)
[2025-08-15] MEDS: Senna/Docusate Sodium 1 Tablet PO (10:10)
--- NOTE | 2025-08-15 11:24 | CASEMGMT ---
BRUNO RAZA into pt room, Pt states she does not wear any O2 at home, denies having CPAP or BiPAP. Pt states her doctor has recommended a sleep study but she denies wanting one. BRUNO RAZA follow for O2 needs at [place]. BRUNO RAZA provided verbal list of DME providers, Pt chose [facility] as provider of choice.
--- NOTE | 2025-08-15 17:05 | RAD_ITS ---
PROCEDURE: CHEST PA AND LATERAL 08/15/2025 REASON FOR EXAM: F/U UP PTX AFTER SUCTION TECHNIQUE: Procedure Code: RADCXR Modality: DX Procedure: CHEST PA AND LATERAL COMPARISON: 08/15/2025 at 6:54 a.m. FINDINGS: LINES: The right chest tube remains in place. LUNGS AND PLEURA: No focal airspace consolidation. Interval decrease in right apical pneumothorax, now only trace. No pleural effusion. HEART AND MEDIASTINUM: The heart size and mediastinal contours are normal. BONES: No acute osseous abnormality. RAD/Chest PA and Lateral IMPRESSION: Trace residual right pneumothorax, decreased since the prior study. Reading Location: [id number]
[2025-08-16] VITALS (8 sets, daily range): BP systolic 112–132; BP diastolic 50–77; PULSE 73–76; RESP 16–17; TEMP 36.6–36.8; O2SAT 93–100
--- NOTE | 2025-08-16 07:30 | RAD_ITS ---
PROCEDURE: CHEST PA AND LATERAL 08/16/2025 REASON FOR EXAM: F/U PTX TECHNIQUE: Procedure Code: RADCXR Modality: DX Procedure: CHEST PA AND LATERAL COMPARISON: 08/15/2025 FINDINGS: LINES: Stable position of the right pleural catheter. LUNGS AND PLEURA: There appears to be trace right apical pneumothorax, unchanged. No focal airspace consolidation. No pleural effusion. HEART AND MEDIASTINUM: The heart size and mediastinal contours are normal. BONES: Acute right lateral 5th rib fracture again seen. Old rib fractures bilaterally. RAD/Chest PA and Lateral IMPRESSION: Trace right pneumothorax, unchanged. Reading Location: [id number]
[2025-08-16] MEDS: Metoprolol(XL)Succ 50 MG Tablet PO (08:34)
[2025-08-16] MEDS: Ensure Plus High Protein 120 ML LIQUID PO (08:34)
[2025-08-16] MEDS: Senna Tablet 2 TABLET PO (08:37)
--- NOTE | 2025-08-16 09:16 | PCM.PN.SRG ---
Subjective Subjective Patient is comfortable with no shortness of breath. Objective Data Objective Data Vital Signs: Vital Signs Temp Pulse Resp BP Pulse Ox O2 Del Method O2 Flow Rate 97.8 F 75 16 132/56 H 93 Room Air 2 08/16/25 08:14 08/16/25 08:34 08/16/25 08:14 08/16/25 08:14 08/16/25 08:14 08/16/25 08:14 08/16/25 02:37 Oxygen Flow Rate (L/min) 2 Oxygen Delivery Method Room Air Weight: 230 lb 9.656 oz Body Mass Index (BMI) 38.3 Intake & Output: Intake and Output for Last 24 Hours 08/14/25 08/15/25 08/16/25 23:59 23:59 23:59 Intake Total 1500 / 1500 900 / 900 750 / 750 Output Total 175 / 175 Balance 1325 / 1325 900 / 900 750 / 750 Lab / Micro Data 08/12/25 15:49 08/12/25 15:49 Radiography Diagnostic Testing: Radiology Impression Chest X-Ray 08/15/25 17:05 IMPRESSION: Trace residual right pneumothorax, decreased since the prior study. Reading Location: [id number] Chest X-Ray 08/16/25 07:30 IMPRESSION: Trace right pneumothorax, unchanged. Reading Location: [facility] Physical Exam Const oriented x3 and no apparent distress Resp normal respiratory effort GI soft to palpation and non-tender Assessment & Plan Assessment/Plan (1) Pneumothorax: PLAN: The patient had a apical pneumothorax yesterday and was placed back to suction. This morning her pneumothorax is the same management. She has no airleak. Put her back to waterseal today. Recheck chest x-ray tomorrow. Chest x-ray stable tomorrow we will remove the chest tube and discharge home. Pelon Portillo MD Pager: [facility] [address] [place], [place] [address], [address] [place] [address] Office: (2) Fracture of rib:
[2025-08-17 05:44] VITALS: O2SAT 97
[2025-08-17 05:47] VITALS: BP 118/61; PULSE 86; RESP 16; TEMP 36.7; O2SAT 97
--- NOTE | 2025-08-17 07:46 | RAD_ITS ---
PROCEDURE: CHEST 1 VIEW (PORTABLE) 08/17/2025 REASON FOR EXAM: PTX TECHNIQUE: Frontal view of the chest. COMPARISON: 08/16/2025 FINDINGS: LINES: Right pleural catheter present. LUNGS AND PLEURA: No focal airspace consolidation. Interval resolution of the right apical pneumothorax. No pleural effusion. HEART AND MEDIASTINUM: The cardiac silhouette is borderline enlarged. The mediastinal contour is normal. BONES: Acute right lateral 6th rib fracture again seen. Old rib fractures bilaterally. RAD/Chest 1 View (Portable) IMPRESSION: No acute findings. Resolved right pneumothorax. Reading Location: [id number]
[2025-08-17 08:50] VITALS: BP 127/50; PULSE 93; RESP 16; TEMP 36.9; O2SAT 100
--- NOTE | 2025-08-17 09:21 | PN.SURG_ITS ---
Subjective Subjective Patient is doing well with no complaints Objective Data Objective Data Vital Signs: Vital Signs Temp Pulse Resp BP Pulse Ox O2 Del Method O2 Flow Rate 98.0 F 86 16 118/61 97 Room Air 2 08/17/25 05:47 08/17/25 05:47 08/17/25 05:47 08/17/25 05:47 08/17/25 05:47 08/17/25 05:47 08/16/25 02:37 Oxygen Flow Rate (L/min) 2 Oxygen Delivery Method Room Air Weight: 230 lb 9.656 oz Body Mass Index (BMI) 38.3 Intake & Output: Intake and Output for Last 24 Hours 08/15/25 08/16/25 08/17/25 23:59 23:59 23:59 Intake Total 900 / 900 1750 / 1750 900 / 900 Balance 900 / 900 1750 / 1750 900 / 900 Lab / Micro Data 08/12/25 15:49 08/12/25 15:49 Radiography Diagnostic Testing: Radiology Impression Chest X-Ray 08/17/25 07:46 IMPRESSION: No acute findings. Resolved right pneumothorax. Reading Location: [facility] Physical Exam Const oriented x3 and no apparent distress Resp normal respiratory effort Cardio regular rate and regular rhythm GI soft to palpation and non-tender Assessment & Plan Assessment/Plan (1) Pneumothorax: PLAN: Patient's chest x-ray this morning showed no pneumothorax on waterseal. I removed her chest tube. I will discharge her home. Pelon Portillo MD Pager: [facility] [address] [place] [address], [address] [place] [address] Office:
--- NOTE | 2025-08-17 09:21 | DS.PCM_ITS ---
Providers Date of Admission: 08/13/25 Primary Care Physician: Dr. Yuridia Kate MD Reason For Visit: RIB FRACTURES/PNEUMOTHORAX Diagnosis Discharge Diagnosis (1) Pneumothorax: Status: Acute Code(s): J93.9 - Pneumothorax, unspecified Plan: Patient's chest x-ray this morning showed no pneumothorax on waterseal. I removed her chest tube. I will discharge her home. Pelon Portillo MD Pager: [facility] [address] [place] [address], [address] [place] [address] Office: Medications at Discharge Home Medications calcium 600 mg (as carbonate)-vitamin D3 10 mcg (400 unit) capsule 1 cap PO DAILY 03/16/22 cranberry 500 mg capsule 500 mg PO DAILY 03/16/22 lactobacillus combination no.4 3 billion cell capsule (Probiotic) 3,000 mmu cells PO DAILY 03/16/22 multivitamin 1 tab PO DAILY 03/16/22 pitavastatin calcium 1 mg tablet (Livalo) 1 mg PO DAILY 03/16/22 apixaban 5 mg tablet (Eliquis) 5 mg PO BID #180 tabs 11/27/24 amlodipine 5 mg tablet 5 mg PO DAILY #90 tabs 12/16/24 metoprolol succinate 50 mg tablet,extended release 24 hr 50 mg PO DAILY #90 tabs 04/09/25 oxycodone 5 mg tablet 5 mg PO Q8H PRN pain 3 days #10 tabs 08/14/25 Hospital Course Operations - (Chest tube placement on the right) Summary of Care Provided Hospital Course: Patient presented after a fall with rib fractures and a pneumothorax on the right. She had a chest tube placed laterally that fell out and dislodged and then she had a second percutaneous chest tube placed anteriorly. The patient had a pneumothorax after waterseal last time so was placed back to suction. After another 24 hours she was placed back to waterseal and after waterseal there was no pneumothorax. Chest tube was removed and the patient will be discharged home and follow-up with Dr. Goyal. Weight / BMI Weight Weight: 230 lb 9.656 oz Body Mass Index (BMI) 38.3 ABG / Lab / Microbiology Data 08/12/25 15:49 12/02/25 15:49 Radiography Diagnostic Testing: Radiology Impression Chest X-Ray 08/17/25 07:46 IMPRESSION: No acute findings. Resolved right pneumothorax. Reading Location: [facility] D/C Instructions Discharge Activity: May Drive and May Shower Call your doctor if your incision/area has: Continuous Slow Oozing, Sudden Increased Bleeding, Increased Pain/ Swelling, Increased Redness, Foul Smelling Discharge and Swelling at the incision site Call your doctor if you observe: Fever of 101 or Higher, Shortness of breath and Chest pain Cleanse incision/area with: Soap & Water DC O2, CPAP, BIPAP Needs Home O2 Discharge instructions: No Please Follow Up With: Jordi Goyal MD When: Please call to schedule 1 week follow up appointment. [phone] Meaningful Use Info Meaningful Use Meaningful Use Diagnoses (Choose all that apply): None applicable Discharge Plan Admission Admit Date/Time: 08/13/25 16:11 Primary Reason for Your Visit: Right pneumothorax Attending Provider: Jordi Goyal Primary Care Provider: Yuridia Kate Discharge Orders/Prescriptions Prescriptions: New oxycodone 5 mg tablet 5 mg PO Q8H PRN (Reason: pain) 3 Days Qty: 10 0RF Continued multivitamin Tablet 1 tab PO DAILY cranberry 500 mg Capsule 500 mg PO DAILY Rx Instructions: administer with meals calcium carbonate-vitamin D3 600 mg-10 mcg (400 unit) Capsule 1 cap PO DAILY pitavastatin calcium [Livalo] 1 mg Tablet 1 mg PO DAILY Probiotic 3 billion cell Capsule 3,000 mmu cells PO DAILY Rx Instructions: administer with a meal Eliquis 5 mg tablet 5 mg PO BID Qty: 180 3RF amlodipine 5 mg tablet 5 mg PO DAILY Qty: 90 3RF metoprolol succinate 50 mg tablet extended release 24 hr 50 mg PO DAILY Qty: 90 3RF Referrals / Follow Up: Yuridia Kate MD [Primary Care Provider, Internal Medicine] Disposition Disposition (needs filled in before D/C Order can be placed): Home, Self Care
[2025-08-17 10:12] VITALS: PULSE 93
[2025-08-17] MEDS: Metoprolol(XL)Succ 50 MG Tablet PO (10:12)
== END 2025-08-17 10:42 | disposition home or self-care (01) | DRG 200 ==
LOC: ED 18:05 → MS3 18:52
PROVIDERS: Admitting Provider Surgery; Emergency Provider Emergency Medicine; PCP Internal Medicine; Visit Provider Surgery
DX: S27.2XXA Traumatic hemopneumothorax, initial encounter (principal); S22.41XA Multiple fractures of ribs, right side, initial encounter for closed fracture; I10 Essential (primary) hypertension; I48.91 Unspecified atrial fibrillation; W19.XXXA Unspecified fall, initial encounter; Z79.01 Long term (current) use of anticoagulants; Z79.899 Other long term (current) drug therapy; Z87.891 Personal history of nicotine dependence
CPT/HCPCS: 71045; 71046; 71260; 80053; 85025; 94668; 99285; Q9967; J2405